=== PATIENT | female | born 1955 | race Hispanic/Latino ===

== ENCOUNTER 2018-02-09 10:19 | Emergency (ER) | payer OTHER ==
--- OUTSIDE RECORDS SUMMARY | 2018-02-09 10:22 | XMS REPORT ---
:1955 Author Organization e[employer]Works Care Team Providers Name Role Phone Breen, Na Provider Role Unavailable Allergies, Adverse Reactions, Alerts Substance Reaction Event Type codeine Info Not Available Drug Allergy NSAIDS Info Not Available Drug Allergy MORPHINE Info Not Available Drug Allergy Iodine Info Not Available Drug Allergy Problems Problem Type Condition Code Onset Dates Condition Status Assessment History of CVA with residual I69.30 Active deficit Assessment Fatty liver disease, nonalcoholic K76.0 Active Assessment Mixed hyperlipidemia E78.2 Active Assessment Gas bloat syndrome K92.89 Active Assessment Generalized abdominal pain R10.84 Active Assessment Controlled type 2 diabetes mellitus E11.9 Active without complication, without long-term current use of insulin Problem Moderate persistent asthma without J45.40 Active complication Problem 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 Generalized abdominal pain R10.84 Active Problem Hyperlipidemia, mixed E78.2 Active Problem Gastroesophageal reflux disease K21.9 Active Problem Spinal stenosis of lumbosacral M48.07 Active region Problem 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.8 Active Problem Degenerative disc disease, cervical M50.30 Active Problem History of CVA with residual I69.30 Active deficit Problem Chronic obstructive pulmonary J44.9 Active disease, unspecified COPD type Problem Cataract H26.9 Active Problem Migraine G43.909 Active Problem Fatty liver disease, nonalcoholic K76.0 Active Problem Fibromyalgia M79.7 Active Problem Controlled type 2 diabetes mellitus E11.9 Active without complication, without long-term current use of insulin Problem Osteoarthritis M19.90 Active Problem Mixed hyperlipidemia E78.2 Active Problem Acquired hypothyroidism E03.9 Active Problem Depression F32.9 Active Problem Hypothyroidism E03.9 Active Problem Diabetic neuropathy E11.40 Active Problem Ecchymosis R58 Active Problem Diabetes E11.9 Active Problem Allergic rhinitis J30.9 Active Problem Asthma J45.909 Active Problem COPD (chronic obstructive pulmonary J44.9 Active disease) Medications Medication Code Code Instructions Start End Status Dosage System Date Date Glucometer NDC 0 n/s n/s use as Active one directed Alcohol Prep NDC 0 Active as directed Pads Cortisporin [facility] 90359855259 3.5-98301-9 Active 4 drops into Otic Three affected ear times a day Praluent ND 96666313426 75MG/ML SC Nov Active INJECT 75 MG once every 2 05, SUBCUTANEOUSLY weeks 2018 EVERY 2 WEEKS Zovirax ND 68853297745 5 % Externally Active 1 application Six times a to affected day area Glucometer Kit NDC 0 Fingerstick Active Check BS twice BID a day Albuterol ND 29341721122 (5 MG/ML) 0.5% Active 1 ml as needed Sulfate Inhalation every 6 hrs Metformin HCl ND 96292578480 500 MG Orally Inactive 1 tablet with Twice a day meals Lidocaine ND 03404038218 5 % Externally Active 1 application Three times a to affected day area as needed Singulair ND 99692633924 10 MG Orally Active 1 tablet in the Once a day evening Tradjenta [facility] 70696247331 5 MG Orally Active 1 tablet Once a day Xopenex HFA [facility] 39930482882 45 MCG/ACT Active 1 puff as Inhalation needed every 4 hrs Celexa [facility] 68153797334 40 MG Orally Active 0.5 tablet Once a day Levothyroxine ND 94147431625 100 MCG Orally Active 1 tablet on an Sodium Once a day empty stomach in the morning blood glucose NDC 0 n/s twice a Active one test strip day Lancets Super NDC 0 n/s finger Active one Thin stick twice a day Incruse Ellipta ND 74396680318 62.5 MCG/INH August Active 1 puff Inhalation 24, 24, Once a day 2017 2017 Results No Known Results Summary Purpose eClinicalWorks Submission
--- OUTSIDE RECORDS SUMMARY | 2018-02-09 10:23 | XMS REPORT ---
:1955 Author Organization [employer] Care Team Providers Name Role Phone Breen, Na Provider Role Unavailable Allergies, Adverse Reactions, Alerts Substance Reaction Event Type NSAIDS Info Not Available Drug Allergy MORPHINE Info Not Available Drug Allergy Iodine Info Not Available Drug Allergy Problems Problem Type Condition Code Onset Dates Condition Status Assessment Dizziness R42 Active Assessment History of CVA with residual I69.30 Active deficit Assessment Seasonal allergies J30.2 Active Assessment Fatty liver disease, nonalcoholic K76.0 Active Assessment Mixed hyperlipidemia E78.2 Active Assessment Controlled type 2 diabetes mellitus E11.9 Active without complication, without long-term current use of insulin Problem Generalized abdominal pain R10.84 Active Problem Moderate persistent asthma without J45.40 Active complication Problem Allergic rhinitis J30.9 Active Problem Spinal stenosis of lumbosacral M48.07 Active region Problem 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.8 Active Problem Degenerative disc disease, cervical M50.30 Active Problem Osteoarthritis M19.90 Active Problem Hyperlipidemia, mixed E78.2 Active Problem 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 Fatty liver disease, nonalcoholic K76.0 Active Problem History of CVA with residual I69.30 Active deficit Problem Migraine G43.909 Active Problem Fibromyalgia M79.7 Active Problem Seasonal allergies J30.2 Active Problem Gastroesophageal reflux disease K21.9 Active Problem Acquired hypothyroidism E03.9 Active Problem Mixed hyperlipidemia E78.2 Active Problem Chronic obstructive pulmonary J44.9 Active disease, unspecified COPD type Problem Controlled type 2 diabetes mellitus E11.9 Active without complication, without long-term current use of insulin Problem Ecchymosis R58 Active Problem Depression F32.9 Active Problem Cataract H26.9 Active Problem Diabetic neuropathy E11.40 Active Problem COPD (chronic obstructive pulmonary J44.9 Active disease) Problem Diabetes E11.9 Active Problem Hypothyroidism E03.9 Active Problem Asthma J45.909 Active Medications Medication Code Code Instructions Start End Status Dosage System Date Date blood glucose NDC 0 n/s twice a Active one test strip day Metformin HCl NDC 38708738563 500 MG Orally Inactive 1 tablet with Twice a day meals Lancets Super NDC 0 n/s finger Active one Thin stick twice a day Albuterol ND 10173289450 (5 MG/ML) 0.5% Active 1 ml as needed Sulfate Inhalation every 6 hrs Celexa ND 38397689337 40 MG Orally Active 0.5 tablet Once a day Praluent ND 58981603861 75MG/ML SC Active INJECT 75 MG once every 2 SUBCUTANEOUSLY weeks EVERY 2 WEEKS Levothyroxine ND 87233857236 100 MCG Orally Active 1 tablet on an Sodium Once a day empty stomach in the morning Alcohol Prep NDC 0 Active as directed Pads Zovirax ND 66646993027 5 % Externally Active 1 application Six times a to affected day area Cortisporin [facility] 05640002936 3.5-62172-4 Active 4 drops into Otic Three affected ear times a day Glucometer Kit ND 0 Fingerstick Active Check BS twice BID a day Xopenex HFA [facility] 89446112837 45 MCG/ACT Active 1 puff as Inhalation needed every 4 hrs Meclizine HCl ND 28107167555 25 MG Orally Dec 23, Active 1 tablet as Once a day 2018 needed Glucometer NDC 0 n/s n/s use as Active one directed Singulair ND 11380100163 10 MG Orally Active 1 tablet in the Once a day evening Lidocaine ND 91811150685 5 % Externally Active 1 application Three times a to affected day area as needed Glimepiride ND 09230090464 1 MG Orally Dec 23, Active 1 tablet with Once a day 2018 breakfast or the first main meal of the day Tradjenta ND 50449754232 5 MG Orally Active 1 tablet Once a day Citalopram [facility] 31441038616 40MG Active TAKE ONE TABLET Hydrobromide BY MOUTH ONCE DAILY Results No Known Results Summary Purpose eClinicalWorks Submission
--- NOTE | 2018-02-09 11:25 | ER ---
Nurse's Notes [facility] Name: Kathy Ledesma Age: 62 yrs Sex: Female : 1955 Arrival Date: 02/09/2018 Time: 10:23 Bed 15 Private MD: Diagnosis: Pain in right shoulder;Zoster [herpes zoster] Presentation: 02/09 10:23 Presenting complaint: Patient states: Sharp pains in the right shoulder for the past aj1 week, reports that she has a history of internal shingles and she thinks that might be the problem. She saw Dr. Breen on Tuesday and was started on Valacyclovir, and she has been applying lidocaine cream but its not helping. Right upper back is painful to the touch. No rash noted. Transition of care: patient was not received from another setting of care. Onset of symptoms was February 02, 2018. Risk Assessment: Do you want to hurt yourself or someone else? Patient reports no desire to harm self or others. Initial Sepsis Screen: Does the patient meet any 2 criteria? No. Patient's initial sepsis screen is negative. Does the patient have a suspected source of infection? No. Patient's initial sepsis screen is negative. Care prior to arrival: None. 10:23 Method Of Arrival: Ambulatory aj1 10:23 Acuity: ZAK 4 aj1 Triage Assessment: 10:30 General: Appears in no apparent distress. uncomfortable, Behavior is calm, cooperative, aj1 appropriate for age. Pain: Complains of pain in right scapular area Pain currently is 10 out of 10 on a pain scale. Aggravated by touch. Neuro: Level of Consciousness is awake, alert, obeys commands. Cardiovascular: Patient's skin is warm and dry. Respiratory: Airway is patent Respiratory effort is even, unlabored, Respiratory pattern is regular, symmetrical. Historical: - Allergies: 10:30 Codeine; aj1 10:30 Morphine; aj1 10:30 NSAIDS; aj1 10:30 Relafen; aj1 - Home Meds: 10:30 Praluent Syringe 75 mg/mL subcutaneous syrg 1 mL every 2 wks [Active]; somatropin aj1 subcutaneous subcutaneous once daily [Active]; Tradjenta 5 mg oral tab 1 tab once daily [Active]; valacyclovir 1 gram Oral tab 1 tab 3 times per day [Active]; levothyroxine 75 mcg oral tab [Active]; glimepiride 1 mg Oral tab 1 tab once daily [Active]; Vitamin D Oral daily [Active]; citalopram 40 mg tab 1 tab once daily [Active]; aspirin 81 mg Oral chew 1 tab once daily [Active]; - PMHx: 10:30 COPD; Diabetes - NIDDM; Hypothyroidism; shingles; Fibromyalgia; spinal stenosis; CVA; aj1 - PSHx: 10:30 berkley fundoplication; 2 plates in neck; lower back surgery to remove spinal cyst; Knee aj1 surgery; 10:30 Hysterectomy; aj1 - Immunization history:: Flu vaccine is not up to date. - Social history:: Smoking status: Patient/guardian denies using tobacco. - Ebola Screening: : Patient denies travel to an Ebola-affected area in the 21 days before illness onset. - Family history:: not pertinent. - Hospitalizations: : No recent hospitalization is reported. Screenin:00 Abuse screen: Denies threats or abuse. Denies injuries from another. Nutritional ss screening: No deficits noted. Tuberculosis screening: Never had TB. Fall Risk None identified. Assessment: 11:00 General: Appears uncomfortable, Behavior is calm, cooperative, Denies fever, feeling ss ill, fatigue, chills. Pain: Complains of pain in back and right scapular area Pain currently is 10 out of 10 on a pain scale. Quality of pain is described as burning, tender, Is continuous. Neuro: Level of Consciousness is awake, alert, obeys commands, Oriented to person, place, time, situation. Cardiovascular: Capillary refill < 3 seconds is brisk in bilateral fingers. Respiratory: Airway is patent Trachea midline Respiratory effort is even, Respiratory pattern is regular, symmetrical. GI: No signs and/or symptoms were reported involving the gastrointestinal system. EENT: Nares are clear Oral mucosa is moist. Throat is clear. Derm: Skin is pink, warm \T\ dry. normal, Rash noted that is 5 pinpoint areas of redness noted to R scapula area. Pt reports point tenderness upon palpation. Musculoskeletal: Circulation, motion, and sensation intact. Range of motion: intact in all extremities, Swelling absent. 11:42 Reassessment: Patient appears in no apparent distress at this time. Patient is alert, ss oriented x 3, equal unlabored respirations, skin warm/dry/pink. Patient states feeling better. Patient states symptoms have improved. Vital Signs: 10:30 BP 135 / 81; Pulse 88; Resp 20; Temp 97.0(TE); Pulse Ox 100% on R/A; Weight 83.46 kg aj1 (R); Height 5 ft. 2 in. (157.48 cm) (R); Pain 10/10; 11:12 BP 126 / 65 RA (auto/reg); Pulse 85; Resp 18 S; Pulse Ox 93% on R/A; Pain 8/10; jp3 11:30 BP 121 / 54; Pulse 85; Resp 16; Pulse Ox 94% on R/A; ss 11:40 Pulse 82; Resp 15; Pulse Ox 97% on R/A; Pain 6/10; ss 10:30 Body Mass Index 33.65 (83.46 kg, 157.48 cm) aj1 ED Course: 10:23 Patient arrived in ED. aj1 10:26 Triage completed. aj1 10:30 Arm band placed on Patient placed in waiting room, Patient notified of wait time. aj1 10:53 Arie Prescott MD is Attending Physician. rn 11:17 Bed in low position. Call light in reach. Side rails up X 1. Warm blanket given. Pillow jp3 given. Pulse ox on. NIBP on. 11:29 Lilibeth Andres, MARQUES is Primary Nurse. ss 11:43 No provider procedures requiring assistance completed. Patient did not have IV access ss during this emergency room visit. Administered Medications: 11:30 Drug: Demerol 50 mg Route: IM; Site: right gluteus; ss 11:55 Follow up: Response: No adverse reaction; Pain is decreased ss Outcome: 11:24 Discharge ordered by . rn 11:43 Condition: improved ss 11:43 Discharge instructions given to patient, family, Instructed on discharge instructions, follow up and referral plans. medication usage, Demonstrated understanding of instructions, follow-up care, medications, Prescriptions given X 2. 11:55 Discharged to home via wheelchair, with family. ss 11:55 Patient left the ED. ss Signatures: Michelle Rendon RN RN aj1 Arie Prescott MD MD rn Smirch, Shelby, RN RN Jose Posadas jp3 Corrections: (The following items were deleted from the chart) 11:33 11:12 BP 126 / 65 Auto R Arm Regular; Pulse 85bpm; Resp 85bpm; Spontaneous; Pulse Ox jp3 93% RA; Pain 12/23; jp3
--- NOTE | 2018-02-09 11:25 | EDPHYS ---
Physician Documentation [facility] Name: Kathy Ledesma Age: 62 yrs Sex: Female : 1955 Arrival Date: 02/09/2018 Time: 10:23 Bed 15 Private MD: ED Physician Arie Prescott HPI: 02/09 11:18 This 62 yrs old Female presents to ER via Ambulatory with complaints of rn Shoulder Pain. 11:18 The patient or guardian complains of pain. right scapular area. Onset: The rn symptoms/episode began/occurred 3 day(s) ago. Modifying factors: the symptoms are alleviated by nothing. The symptoms are aggravated by movement. Severity of symptoms: At their worst the symptoms were moderate, in the emergency department the symptoms are unchanged. The patient has experienced similar episodes in the past. Reports scapular pain, similar ot previous shingles episodes, seen by pcp a few days ago, put on valacyclovir, just started yesterday, still hurting so came in here. NOt given steroids. No chest pain, no injury, hurts when touches area. . Historical: - Allergies: 10:30 Codeine; aj1 10:30 Morphine; aj1 10:30 NSAIDS; aj1 10:30 Relafen; aj1 - Home Meds: 10:30 Praluent Syringe 75 mg/mL subcutaneous syrg 1 mL every 2 wks [Active]; somatropin aj1 subcutaneous subcutaneous once daily [Active]; Tradjenta 5 mg oral tab 1 tab once daily [Active]; valacyclovir 1 gram Oral tab 1 tab 3 times per day [Active]; levothyroxine 75 mcg oral tab [Active]; glimepiride 1 mg Oral tab 1 tab once daily [Active]; Vitamin D Oral daily [Active]; citalopram 40 mg tab 1 tab once daily [Active]; aspirin 81 mg Oral chew 1 tab once daily [Active]; - PMHx: 10:30 COPD; Diabetes - NIDDM; Hypothyroidism; shingles; Fibromyalgia; spinal stenosis; CVA; aj1 - PSHx: 10:30 berkley fundoplication; 2 plates in neck; lower back surgery to remove spinal cyst; Knee aj1 surgery; 10:30 Hysterectomy; aj1 - Immunization history:: Flu vaccine is not up to date. - Social history:: Smoking status: Patient/guardian denies using tobacco. - Ebola Screening: : Patient denies travel to an Ebola-affected area in the 21 days before illness onset. - Family history:: not pertinent. - Hospitalizations: : No recent hospitalization is reported. ROS: 11:18 Constitutional: Negative for fever, chills, and weight loss, Cardiovascular: Negative rn for chest pain, palpitations, and edema, Respiratory: Negative for shortness of breath, cough, wheezing, and pleuritic chest pain, Abdomen/GI: Negative for abdominal pain, nausea, vomiting, diarrhea, and constipation, MS/Extremity: Negative for injury and deformity, Neuro: Negative for headache, weakness, numbness, tingling, and seizure. Exam: 11:18 Constitutional: This is a well developed, well nourished patient who is awake, alert, rn and in no acute distress. Head/Face: Normocephalic, atraumatic. Neck: Trachea midline, no thyromegaly or masses palpated, and no cervical lymphadenopathy. Supple, full range of motion without nuchal rigidity, or vertebral point tenderness. No Meningismus. Skin: Warm, dry with normal turgor. Afew papules, not pustules right scapular region, + sensitive skin, no warmth, no fluctuance Vital Signs: 10:30 BP 135 / 81; Pulse 88; Resp 20; Temp 97.0(TE); Pulse Ox 100% on R/A; Weight 83.46 kg aj1 (R); Height 5 ft. 2 in. (157.48 cm) (R); Pain 10/10; 11:12 BP 126 / 65 RA (auto/reg); Pulse 85; Resp 18 S; Pulse Ox 93% on R/A; Pain 8/10; jp3 11:30 BP 121 / 54; Pulse 85; Resp 16; Pulse Ox 94% on R/A; ss 11:40 Pulse 82; Resp 15; Pulse Ox 97% on R/A; Pain 6/10; ss 10:30 Body Mass Index 33.65 (83.46 kg, 157.48 cm) aj1 MDM: 10:53 Patient medically screened. rn 11:18 Differential diagnosis: shingles, fibromyalgia. Data reviewed: vital signs, nurses rn notes. 11:23 Counseling: I had a detailed discussion with the patient and/or guardian regarding: the rn historical points, exam findings, and any diagnostic results supporting the discharge/admit diagnosis, the need for outpatient follow up, to return to the emergency department if symptoms worsen or persist or if there are any questions or concerns that arise at home. Special discussion: I discussed with the patient/guardian in detail that at this point there is no indication for admission to the hospital. It is understood, however, that if the symptoms persist or worsen the patient needs to return immediately for re-evaluation. Based on the history and exam findings, there is no indication for further emergent testing or inpatient evaluation. I discussed with the patient/guardian the need to see the primary care provider for further evaluation of the symptoms. 11:23 ED course: Pt already on anti-virals, will add steroids and gabapentin. . rn Administered Medications: 11:30 Drug: Demerol 50 mg Route: IM; Site: right gluteus; ss 11:55 Follow up: Response: No adverse reaction; Pain is decreased ss Disposition: 02/09/18 11:24 Discharged to Home. Impression: Pain in right shoulder, Zoster [herpes zoster]. - Condition is Stable. - Discharge Instructions: Musculoskeletal Pain, Shingles. - Prescriptions for gabapentin 300 mg Oral capsule - take 1 capsule by ORAL route 3 times per day for 7 days; 21 capsule. Medrol (Juan) 4 mg Oral Tablets, Dose Pack - take 1 tablet by ORAL route as directed - follow package instructions; 1 packet. - Medication Reconciliation Form, Thank You Letter, Antibiotic Education, Prescription Opioid Use form. - Follow up: Private Physician; When: As needed; Reason: Recheck today's complaints, Re-evaluation by your physician. - Problem is new. - Symptoms have improved. Signatures: Michelle Rendon RN RN aj1 Arie Prescott MD MD rn Smirch, Shelby, RN RN ss Corrections: (The following items were deleted from the chart) 11:55 11:24 02/09/2018 11:24 Discharged to Home. Impression: Pain in right shoulder; Zoster ss [herpes zoster]. Condition is Stable. Forms are Medication Reconciliation Form, Thank You Letter, Antibiotic Education, Prescription Opioid Use. Follow up: Private Physician; When: As needed; Reason: Recheck today's complaints, Re-evaluation by your physician. Problem is new. Symptoms have improved. rn
[2018-02-09] MEDS ORDERED: MEPERIDINE HCL 50 MG/ML AMP ONE (11:32)
[2018-02-09 12:03] VITALS: TEMP 97
[2018-02-09 12:05] VITALS: BP 121/54
[2018-02-09 12:06] VITALS: O2SAT 97
== END 2018-02-09 11:55 | disposition home or self-care (01) ==
LOC: ER 10:19
DX: B02.9 Zoster without complications (principal); J44.9 Chronic obstructive pulmonary disease, unspecified; E11.9 Type 2 diabetes mellitus without complications; E03.9 Hypothyroidism, unspecified; Z79.82 Long term (current) use of aspirin; Z79.4 Long term (current) use of insulin; Z88.5 Allergy status to narcotic agent; Z88.6 Allergy status to analgesic agent; Z88.8 Allergy status to other drugs, medicaments and biological substances
CPT/HCPCS: 96372; 99283; J2175

== ENCOUNTER 2018-05-31 13:26 | Emergency (ER) | payer OTHER ==
--- OUTSIDE RECORDS SUMMARY | 2018-05-31 13:28 | XMS REPORT ---
[...] 0 Active as directed Pads Cortisporin [facility] 75409731402 3.5-78641-9 Active 4 drops into Otic Three affected ear times a day Praluent ND 11006080011 75MG/ML SC Nov Active INJECT 75 MG once every 2 05, SUBCUTANEOUSLY weeks 2018 EVERY 2 WEEKS Zovirax ND 26370550290 5 % Externally Active 1 application Six times a to affected day area Glucometer Kit NDC 0 Fingerstick Active Check BS twice BID a day Albuterol ND 51259617626 (5 MG/ML) 0.5% Active 1 ml as needed Sulfate Inhalation every 6 hrs Metformin HCl ND 56492678206 500 MG Orally Inactive 1 tablet with Twice a day meals Lidocaine ND 63314348198 5 % Externally Active 1 application Three times a to affected day area as needed Singulair ND 96729694082 10 MG Orally Active 1 tablet in the Once a day evening Tradjenta [facility] 56564424861 5 MG Orally Active 1 tablet Once a day Xopenex HFA [facility] 14290355428 45 MCG/ACT Active 1 puff as Inhalation needed every 4 hrs Celexa [facility] 15359454870 40 MG Orally Active 0.5 tablet Once a day Levothyroxine ND 41443715572 100 MCG Orally Active 1 tablet on an Sodium Once a day empty stomach in the morning blood glucose NDC 0 n/s twice a Active one test strip day Lancets Super NDC 0 n/s finger Active one Thin stick twice a day Incruse Ellipta ND 12520574620 62.5 MCG/INH August Active 1 puff Inhalation 24, 24, Once a day 2017 2017 Results No Known Results Summary Purpose eClinicalWorks Submission
--- OUTSIDE RECORDS SUMMARY | 2018-05-31 13:28 | XMS REPORT ---
[...] one test strip day Metformin HCl NDC 01115188386 500 MG Orally Inactive 1 tablet with Twice a day meals Lancets Super NDC 0 n/s finger Active one Thin stick twice a day Albuterol ND 68343448762 (5 MG/ML) 0.5% Active 1 ml as needed Sulfate Inhalation every 6 hrs Celexa ND 28590769418 40 MG Orally Active 0.5 tablet Once a day Praluent ND 37812266718 75MG/ML SC Active INJECT 75 MG once every 2 SUBCUTANEOUSLY weeks EVERY 2 WEEKS Levothyroxine ND 55807221160 100 MCG Orally Active 1 tablet on an Sodium Once a day empty stomach in the morning Alcohol Prep NDC 0 Active as directed Pads Zovirax ND 56573410593 5 % Externally Active 1 application Six times a to affected day area Cortisporin [facility] 12117674263 3.5-42484-3 Active 4 drops into Otic Three affected ear times a day Glucometer Kit ND 0 Fingerstick Active Check BS twice BID a day Xopenex HFA [facility] 91058424169 45 MCG/ACT Active 1 puff as Inhalation needed every 4 hrs Meclizine HCl ND 79714051657 25 MG Orally Dec 23, Active 1 tablet as Once a day 2018 needed Glucometer NDC 0 n/s n/s use as Active one directed Singulair ND 61742855808 10 MG Orally Active 1 tablet in the Once a day evening Lidocaine ND 09394303493 5 % Externally Active 1 application Three times a to affected day area as needed Glimepiride ND 07324734462 1 MG Orally Dec 23, Active 1 tablet with Once a day 2018 breakfast or the first main meal of the day Tradjenta ND 91278101714 5 MG Orally Active 1 tablet Once a day Citalopram [facility] 02692586496 40MG Active TAKE ONE TABLET Hydrobromide BY MOUTH ONCE DAILY Results No Known Results Summary Purpose eClinicalWorks Submission
--- OUTSIDE RECORDS SUMMARY | 2018-05-31 13:28 | XMS REPORT ---
:1955 Author Organization eClinicalWorks Care Team Providers Name Role Phone Breen, Na Provider Role Unavailable Allergies, Adverse Reactions, Alerts Substance Reaction Event Type NSAIDS Info Not Available Drug Allergy MORPHINE Info Not Available Drug Allergy Iodine Info Not Available Drug Allergy Problems Problem Type Condition Code Onset Dates Condition Status Assessment Shingles B02.9 Active Problem Generalized abdominal pain R10.84 Active [...] Start End Status Dosage System Date Date Zovirax [facility] 58505173014 5 % Externally Active 1 application to Six times a affected area day Glucometer NDC 0 n/s n/s use as Active one directed Levothyroxine ND 65796583982 100 MCG Orally Active 1 tablet on an Sodium Once a day empty stomach in the morning Glucometer Kit NDC 0 Fingerstick Active Check BS twice a BID day Tradjenta ND 39189995296 5 MG Orally Active 1 tablet Once a day Cortisporin [facility] 84234951084 3.5-24313-4 Active 4 drops into Otic Three affected ear times a day Citalopram [facility] 96529955944 40MG Active take one tablet Hydrobromide by mouth once daily Albuterol ND 11161765879 (5 MG/ML) 0.5% Active 1 ml as needed Sulfate Inhalation every 6 hrs Xopenex HFA [facility] 23518825590 45 MCG/ACT Active 1 puff as needed Inhalation every 4 hrs Celexa ND 15482846949 40 MG Orally Active 0.5 tablet Once a day Lancets Super NDC 0 n/s finger Active one Thin stick twice a day Alcohol Prep NDC 0 Active as directed Pads Singulair ND 69798731590 10 MG Orally Active 1 tablet in the Once a day evening Lidocaine ND 95280188769 5 % Externally Active 1 application to Three times a affected area as day needed Glimepiride ND 88938524418 1 MG Orally Dec 23, Active 1 tablet with Once a day 2017 breakfast or the first main meal of the day Valacyclovir ND 12956907312 1 GM Orally Sept Oct Active 1 tablet HCl tid 2017 2018 Praluent [facility] 95333090540 75MG/ML SC Active INJECT 75 MG once every 2 SUBCUTANEOUSLY weeks EVERY 2 WEEKS blood glucose NDC 0 n/s twice a Active one test strip day Meclizine HCl ND 25806314524 25 MG Orally Dec 23, Active 1 tablet as Once a day 2018 needed Results No Known Results Summary Purpose eClinicalWorks Submission
--- OUTSIDE RECORDS SUMMARY | 2018-05-31 13:28 | XMS REPORT ---
:1955 Author Organization eClinicalWorks Care Team Providers Name Role Phone Breen, Na Provider Role Unavailable Allergies No Known Allergies Problems Problem Type Condition Code Onset Dates Condition Status Problem Generalized abdominal pain R10.84 Active Problem [...] E03.9 Active Problem Asthma J45.909 Active Medications No Known Medications Results No Known Results Summary Purpose eClinicalWorks Submission
--- NOTE | 2018-05-31 15:12 | RAD REPORT ---
EXAM DESCRIPTION: RAD - Wrist Left 3 View - 05/31/2018 2:48 pm CLINICAL HISTORY: Pain;Swelling Pain COMPARISON: Wrist Left 3 View dated 09/04/2011 FINDINGS: No fracture or dislocation seen left wrist. No foreign body or other soft tissue abnormal ity. IMPRESSION: Negative examination.
--- NOTE | 2018-05-31 15:24 | EDPHYS ---
Physician Documentation [facility] Name: Kathy Ledesma Age: 62 yrs Sex: Female : 1955 Arrival Date: 05/31/2018 Time: 13:33 Bed 12 Private MD: Margarita Breen ED Physician Arie Prescott HPI: 05/31 14:16 This 62 yrs old Female presents to ER via Ambulatory with complaints of Wrist cp Pain. 14:16 The patient or guardian reports pain, swelling, tenderness. cp 14:16 The complaints affect the left wrist diffusely. Context: resulted from lifting or cp pulling, mother while seated in wheelchair. Onset: The symptoms/episode began/occurred 6 week(s) ago. Modifying factors: the symptoms are aggravated by movement. Associated signs and symptoms: Pertinent negatives: cyanosis distally, decreased sensation distally, fever. Historical: - Allergies: 13:46 Codeine; hb 13:46 Morphine; hb 13:46 NSAIDS; hb 13:46 Relafen; hb - Immunization history:: Adult Immunizations up to date. - Social history:: Smoking status: Patient/guardian denies using tobacco. - Ebola Screening: : No symptoms or risks identified at this time. ROS: 14:20 Constitutional: Negative for body aches, chills, fever, poor PO intake. cp 14:20 Eyes: Negative for injury, pain, redness, and discharge. cp Exam: 14:30 Constitutional: The patient appears in no acute distress, alert, awake, non-toxic, well cp developed, well nourished. 14:30 Head/Face: Normocephalic, atraumatic. cp 14:30 Eyes: Periorbital structures: appear normal, Conjunctiva: normal, Lids and lashes: appear normal, bilaterally. 14:30 ENT: External ear(s): are unremarkable, Nose: is normal, Mouth: Lips: moist, Oral mucosa: moist. 14:30 Chest/axilla: Inspection: normal. 14:30 Cardiovascular: Rate: normal. 14:30 Respiratory: the patient does not display signs of respiratory distress, Respirations: normal, no use of accessory muscles, no retractions, no splinting, no tachypnea. 14:30 Abdomen/GI: Exam negative for discomfort, distension, guarding, Inspection: abdomen appears normal. 14:30 Musculoskeletal/extremity: Perfusion: the extremity is normally perfused throughout, Sensation intact. Joints: the left wrist displays painful range of motion, swelling, tenderness. 14:30 Skin: cellulitis, is not appreciated, no rash present. Vital Signs: 13:45 BP 125 / 74; Pulse 83; Resp 16; Temp 97.2; Pulse Ox 100% ; Pain 10/10; hb MDM: 13:56 Patient medically screened. cp 15:00 Differential diagnosis: dislocation, closed fracture, contusion, tendonitis. cp 15:22 Data reviewed: vital signs, nurses notes, radiologic studies, plain films, and as a cp result, I will discharge patient. 15:22 Counseling: I had a detailed discussion with the patient and/or guardian regarding: the cp historical points, exam findings, and any diagnostic results supporting the discharge/admit diagnosis, radiology results, the need for outpatient follow up, a orthopedic surgeon, to return to the emergency department if symptoms worsen or persist or if there are any questions or concerns that arise at home. 05/31 14:03 Order name: XRAY Wrist LEFT 3 view; Complete Time: 15:17 cp Administered Medications: No medications were administered Disposition: 17:53 Co-signature as Attending Physician, Arie Prescott MD. rn Disposition: 05/31/18 15:23 Discharged to Home. Impression: Pain in left wrist. - Condition is Stable. - Discharge Instructions: Wrist Pain. - Prescriptions for Tramadol 50 mg Oral Tablet - take 1 tablet by ORAL route every 8 hours as needed. no driving while taking medication; 15 tablet. Medrol (Juan) 4 mg Oral Tablets, Dose Pack - take 1 tablet by ORAL route as directed - follow package instructions; 1 packet. - Medication Reconciliation Form, Thank You Letter, Antibiotic Education, Prescription Opioid Use form. - Follow up: Alejandro Rios MD; When: 1 week; Reason: Recheck today's complaints. - Problem is an ongoing problem. - Symptoms are unchanged. Signatures: Dispatcher [employer] EDArie Mayes MD MD rn Smirch, Shelby, RN RN Mando Lowery PA PA cp Baxter, Heather, RN RN hb Corrections: (The following items were deleted from the chart) 15:29 15:23 05/31/2018 15:23 Discharged to Home. Impression: Pain in left wrist. Condition is ss Stable. Forms are Medication Reconciliation Form, Thank You Letter, Antibiotic Education, Prescription Opioid Use. Follow up: Alejandro Rios; When: 1 week; Reason: Recheck today's complaints. Problem is an ongoing problem. Symptoms are unchanged. cp
--- NOTE | 2018-05-31 15:24 | ER ---
Nurse's Notes [facility] Name: Kathy Ledesma Age: 62 yrs Sex: Female : 1955 Arrival Date: 05/31/2018 Time: 13:33 Bed 12 Private MD: Margarita Breen Diagnosis: Pain in left wrist Presentation: 05/31 13:44 Presenting complaint: Patient states: Worsening left wrist pain after lifting hb wheelchair 6 weeks ago. Transition of care: patient was not received from another setting of care. Onset of symptoms is unknown. Risk Assessment: Do you want to hurt yourself or someone else? Patient reports no desire to harm self or others. Care prior to arrival: None. 13:44 Method Of Arrival: Ambulatory hb 13:44 Acuity: ZAK 4 hb 14:00 Initial Sepsis Screen: Does the patient meet any 2 criteria? No. Patient's initial hb sepsis screen is negative. Does the patient have a suspected source of infection? No. Patient's initial sepsis screen is negative. Historical: - Allergies: 13:46 Codeine; hb 13:46 Morphine; hb 13:46 NSAIDS; hb 13:46 Relafen; hb - Immunization history:: Adult Immunizations up to date. - Social history:: Smoking status: Patient/guardian denies using tobacco. - Ebola Screening: : No symptoms or risks identified at this time. Screenin:00 Abuse screen: Denies threats or abuse. Denies injuries from another. Nutritional hb screening: No deficits noted. Tuberculosis screening: No symptoms or risk factors identified. Fall Risk None identified. Assessment: 14:00 General: Appears in no apparent distress. Behavior is calm, cooperative. Pain: Pain hb currently is 10 out of 10 on a pain scale. Neuro: Level of Consciousness is awake, alert, obeys commands, Oriented to person, place, time, situation. Cardiovascular: Capillary refill < 3 seconds Patient's skin is warm and dry. Respiratory: Airway is patent Respiratory effort is even, unlabored, Respiratory pattern is regular, symmetrical. GI: No signs and/or symptoms were reported involving the gastrointestinal system. : No signs and/or symptoms were reported regarding the genitourinary system. EENT: No signs and/or symptoms were reported regarding the EENT system. Derm: Skin is intact, is healthy with good turgor. Musculoskeletal: Reports left wrist pain. 15:00 Reassessment: Patient appears in no apparent distress at this time. No changes from hb previously documented assessment. Patient and/or family updated on plan of care and expected duration. Pain level reassessed. Patient is alert, oriented x 3, equal unlabored respirations, skin warm/dry/pink. Vital Signs: 13:45 BP 125 / 74; Pulse 83; Resp 16; Temp 97.2; Pulse Ox 100% ; Pain 10/10; hb ED Course: 13:33 Patient arrived in ED. sb2 13:33 Margarita Breen MD is Private Physician. sb2 13:45 Triage completed. hb 13:45 Arm band placed on right wrist. hb 13:55 Mando Denton PA is PHCP. cp 13:56 Arie Prescott MD is Attending Physician. cp 14:00 Side rails up X 1. hb 14:11 Lilibeth Andres, MARQUES is Primary Nurse. ss 14:42 X-ray completed. Portable x-ray completed in exam room. Patient tolerated procedure mh1 well. 14:48 XRAY Wrist LEFT 3 view In Process Unspecified. EDMS 15:23 Alejandro Rios MD is Referral Physician. cp 15:25 No provider procedures requiring assistance completed. Patient did not have IV access hb during this emergency room visit. Administered Medications: No medications were administered Outcome: 15:23 Discharge ordered by MD. cp 15:29 Discharged to home ambulatory. ss 15:29 Condition: good 15:29 Discharge instructions given to patient, Instructed on discharge instructions, follow up and referral plans. medication usage, Demonstrated understanding of instructions, follow-up care, medications, Prescriptions given X 2. 15:29 Patient left the ED. ss Signatures: Dispatcher [employer] EDIL Geneva Cho 1 Lilibeth Andres, RN RN Mando Denton PA PA Elena Gaines RN RN Viry Prince sb2 Corrections: (The following items were deleted from the chart) 13:46 13:45 Arm band placed on left wrist. hb hb
[2018-05-31 15:34] VITALS: BP 125/74; TEMP 97.2; O2SAT 100
== END 2018-05-31 15:29 | disposition home or self-care (01) ==
LOC: ER 13:26
DX: M25.532 Pain in left wrist (principal)
CPT/HCPCS: 99283

== ENCOUNTER 2018-06-25 14:54 | Emergency (ER) | payer OTHER ==
--- OUTSIDE RECORDS SUMMARY | 2018-06-25 14:56 | XMS REPORT ---
:1955 [facility] Address [address] [place] [address] Dr. Beltre[address] [place] [id number] Care Team Providers Name Role Phone Unavailable Unavailable Unavailable Problems This patient has no known problems. Allergies, Adverse Reactions, Alerts This patient has no known allergies or adverse reactions. Medications This patient has no known medications.
--- OUTSIDE RECORDS SUMMARY | 2018-06-25 14:56 | XMS REPORT ---
[...] NDC 0 Active as directed Pads Cortisporin [facility] 54481944380 3.5-29048-3 Active 4 drops into Otic Three affected ear times a day Praluent ND 03830575629 75MG/ML SC Nov Active INJECT 75 MG once every 2 05, SUBCUTANEOUSLY weeks 2018 EVERY 2 WEEKS Zovirax ND 64172114548 5 % Externally Active 1 application Six times a to affected day area Glucometer Kit NDC 0 Fingerstick Active Check BS twice BID a day Albuterol ND 46044042743 (5 MG/ML) 0.5% Active 1 ml as needed Sulfate Inhalation every 6 hrs Metformin HCl ND 66315417716 500 MG Orally Inactive 1 tablet with Twice a day meals Lidocaine ND 21631500101 5 % Externally Active 1 application Three times a to affected day area as needed Singulair ND 43437641741 10 MG Orally Active 1 tablet in the Once a day evening Tradjenta [facility] 55074637187 5 MG Orally Active 1 tablet Once a day Xopenex HFA [facility] 80448303547 45 MCG/ACT Active 1 puff as Inhalation needed every 4 hrs Celexa [facility] 30390113105 40 MG Orally Active 0.5 tablet Once a day Levothyroxine ND 11904968902 100 MCG Orally Active 1 tablet on an Sodium Once a day empty stomach in the morning blood glucose NDC 0 n/s twice a Active one test strip day Lancets Super NDC 0 n/s finger Active one Thin stick twice a day Incruse Ellipta ND 88382643227 62.5 MCG/INH August Active 1 puff Inhalation 24, 24, Once a day 2017 2017 Results No Known Results Summary Purpose eClinicalWorks Submission
--- OUTSIDE RECORDS SUMMARY | 2018-06-25 14:56 | XMS REPORT ---
[...] one test strip day Metformin HCl NDC 16024332896 500 MG Orally Inactive 1 tablet with Twice a day meals Lancets Super NDC 0 n/s finger Active one Thin stick twice a day Albuterol ND 91812673691 (5 MG/ML) 0.5% Active 1 ml as needed Sulfate Inhalation every 6 hrs Celexa ND 26306170494 40 MG Orally Active 0.5 tablet Once a day Praluent ND 10353398248 75MG/ML SC Active INJECT 75 MG once every 2 SUBCUTANEOUSLY weeks EVERY 2 WEEKS Levothyroxine ND 59314915154 100 MCG Orally Active 1 tablet on an Sodium Once a day empty stomach in the morning Alcohol Prep NDC 0 Active as directed Pads Zovirax ND 92636330037 5 % Externally Active 1 application Six times a to affected day area Cortisporin [facility] 70634264359 3.5-83721-0 Active 4 drops into Otic Three affected ear times a day Glucometer Kit ND 0 Fingerstick Active Check BS twice BID a day Xopenex HFA [facility] 06992490341 45 MCG/ACT Active 1 puff as Inhalation needed every 4 hrs Meclizine HCl ND 84132837632 25 MG Orally Dec 23, Active 1 tablet as Once a day 2018 needed Glucometer NDC 0 n/s n/s use as Active one directed Singulair ND 13359895716 10 MG Orally Active 1 tablet in the Once a day evening Lidocaine ND 54483756178 5 % Externally Active 1 application Three times a to affected day area as needed Glimepiride ND 93403419645 1 MG Orally Dec 23, Active 1 tablet with Once a day 2018 breakfast or the first main meal of the day Tradjenta ND 14330174341 5 MG Orally Active 1 tablet Once a day Citalopram [facility] 15297455947 40MG Active TAKE ONE TABLET Hydrobromide BY MOUTH ONCE DAILY Results No Known Results Summary Purpose eClinicalWorks Submission
--- OUTSIDE RECORDS SUMMARY | 2018-06-25 14:57 | XMS REPORT ---
[...] End Status Dosage System Date Date Zovirax [facility] 21617071205 5 % Externally Active 1 application to Six times a affected area day Glucometer NDC 0 n/s n/s use as Active one directed Levothyroxine ND 25962812571 100 MCG Orally Active 1 tablet on an Sodium Once a day empty stomach in the morning Glucometer Kit NDC 0 Fingerstick Active Check BS twice a BID day Tradjenta ND 66952215149 5 MG Orally Active 1 tablet Once a day Cortisporin [facility] 70266506019 3.5-55032-5 Active 4 drops into Otic Three affected ear times a day Citalopram [facility] 95355102201 40MG Active take one tablet Hydrobromide by mouth once daily Albuterol ND 93354065376 (5 MG/ML) 0.5% Active 1 ml as needed Sulfate Inhalation every 6 hrs Xopenex HFA [facility] 61843299156 45 MCG/ACT Active 1 puff as needed Inhalation every 4 hrs Celexa ND 99276735246 40 MG Orally Active 0.5 tablet Once a day Lancets Super NDC 0 n/s finger Active one Thin stick twice a day Alcohol Prep NDC 0 Active as directed Pads Singulair ND 98174940366 10 MG Orally Active 1 tablet in the Once a day evening Lidocaine ND 01047410109 5 % Externally Active 1 application to Three times a affected area as day needed Glimepiride ND 30793472579 1 MG Orally Dec 23, Active 1 tablet with Once a day 2017 breakfast or the first main meal of the day Valacyclovir ND 37182537655 1 GM Orally Sept Oct Active 1 tablet HCl tid 2017 [address] [facility] 05732557633 75MG/ML SC Active INJECT 75 MG once every 2 SUBCUTANEOUSLY weeks EVERY 2 WEEKS blood glucose NDC 0 n/s twice a Active one test strip day Meclizine HCl ND 53127315354 25 MG Orally Dec 23, Active 1 tablet as Once a day 2018 needed Results No Known Results Summary Purpose eClinicalWorks Submission
--- OUTSIDE RECORDS SUMMARY | 2018-06-25 14:57 | XMS REPORT ---
:1955 Author Organization eClinicalWorks Care Team Providers Name Role Phone Gus Easton Provider Role Unavailable Allergies No Known Allergies Problems Problem Type Condition Code Onset Dates Condition Status Assessment Pain in medial right lower M79.604 Active extremity Assessment Muscle pain M79.10 Active Problem Generalized abdominal pain R10.84 Active Problem Moderate persistent asthma without J45.40 Active complication Problem Spinal stenosis of lumbosacral M48.07 Active region Problem Degenerative disc disease, cervical M50.30 Active Problem Gastroesophageal reflux disease K21.9 Active Problem Osteoarthritis M19.90 Active Problem 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 Fibromyalgia M79.7 Active Problem Hyperlipidemia, mixed E78.2 Active Problem Acquired hypothyroidism E03.9 Active Problem Mixed hyperlipidemia E78.2 Active Problem 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 Problem Seasonal allergies J30.2 Active Problem Diabetic neuropathy E11.40 Active Problem Cataract H26.9 Active Problem Depression with anxiety F41.8 Active Problem Migraine G43.909 Active Problem Chronic obstructive pulmonary J44.9 Active disease, unspecified COPD type Problem Controlled type 2 diabetes mellitus E11.9 Active without complication, without long-term current use of insulin Problem Fatty liver disease, nonalcoholic K76.0 Active Problem History of CVA with residual I69.30 Active deficit Problem Hypothyroidism E03.9 Active Problem Asthma J45.909 Active Problem Ecchymosis R58 Active Problem Depression F32.9 Active Problem Allergic rhinitis J30.9 Active Problem 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.8 Active Problem COPD (chronic obstructive pulmonary J44.9 Active disease) Problem Diabetes E11.9 Active Medications Medication Code Code Instructions Start End Status Dosage System Date Date Citalopram ND 51706268682 40MG Active take one tablet Hydrobromide by mouth once daily Lancets Super NDC 0 n/s finger Active one Thin stick twice a day Alcohol Prep NDC 0 Active as directed Pads Praluent NDC 92438832803 75MG/ML SC Active INJECT 75 MG once every 2 SUBCUTANEOUSLY weeks EVERY 2 WEEKS Glucometer NDC 0 n/s n/s use as Active one directed Levothyroxine ND 88663599563 112 MCG Orally Active 1 tablet on an Sodium Once a day empty stomach in the morning Albuterol ND 03019129284 (5 MG/ML) 0.5% Active 1 ml as needed Sulfate Inhalation every 6 hrs Tradjenta ND 57328579822 5 MG Orally Active 1 tablet Once a day blood glucose ND 0 n/s twice a Active one test strip day Results No Known Results Summary Purpose eClinicalWorks Submission
[2018-06-25] MEDS ORDERED: MECLIZINE HCL 12.5 MG TAB ONE (16:08)
[2018-06-25] MEDS ORDERED: ASPIRIN 81 MG CHEWABLE TABLET ONE (16:08)
[2018-06-25 16:09] LABS: Absolute Lymphocytes (CBC) 3.4 K/uL (0.7-4.9); Absolute Monocytes 0.4 K/uL (0.1-1.3); Absolute Neutrophil 3.1 K/uL (1.8-8.0); Basophils % 0.7 % (0-1.3); Eosinophils % 2.5 % (0-4.4); Hematocrit 44.5 % (36.0-45.0); Lymphocytes % 47.5 % (15.3-44.8); MPV 7.4 fL (7.6-11.3); Monocytes % 6.2 % (3.3-12.3); RBC Red Blood Cell Count 4.82 M/uL (3.86-4.86)
--- NOTE | 2018-06-25 16:14 | RAD REPORT ---
EXAM DESCRIPTION: RAD - Chest Single View - 06/25/2018 3:51 pm CLINICAL HISTORY: Left-sided chest pain COMPARISON: March 2017 TECHNIQUE: AP portable chest image was obtained 1540 hours . FINDINGS: Lung volumes are low. Interstitial markings are prominent but not clearly different. A mil d interstitial edema or infiltrate could be masked. Heart and vasculature are normal. No measurable p leural effusion and no pneumothorax. No acute bony abnormality seen. No acute aortic findings suspect ed. IMPRESSION: Shallow inspiration chest film shows no peripheral mass or consolidation. Mild viral infiltrate or interstitial edema could be masked by shallow inspiration and chronic inters titial pattern.
[2018-06-25 16:15] LABS: Protime INR 0.98
[2018-06-25 16:29] LABS: ALT/SGPT 23 U/L (12-78); AST/SGOT 14 U/L (15-37); Albumin 3.5 g/dL (3.4-5.0); Alkaline Phosphatase 113 U/L (45-117); BUN Blood Urea Nitrogen 14 mg/dL (7-18); Bicarbonate 28 mmol/L (21-32); Bilirubin Direct 0.1 mg/dL (0-0.2); Bilirubin Total 0.3 mg/dL (0.2-1.0); Glucose Level 122 mg/dL (74-106); Magnesium 2.3 mg/dL (1.8-2.4); NT PRO-BNP 14 pg/mL (<125); Potassium 3.6 mmol/L (3.5-5.1); Protein, Total 7.6 g/dL (6.4-8.2); Sodium Level 139 mmol/L (136-145); Troponin (Emerg Dept Use Only) < 0.02 ng/mL (0.0-0.045)
[2018-06-25 16:39] LABS: Blood Morphology Comment NOT SEEN (NOT SEEN); Platelet Estimate ADEQ
--- NOTE | 2018-06-25 19:14 | ER ---
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 Also c/o mild SOB. Hx of vertigo, DM, CVA. Transition of care: patient was not received from another setting of care. Onset of symptoms was June 25, 2018. Risk Assessment: Do you want to hurt yourself or someone else? Patient reports no desire to harm self or others. Care prior to arrival: None. 15:14 Method Of Arrival: Ambulatory hb 15:14 Acuity: ZAK 3 hb 18:10 Initial Sepsis Screen: Does the patient meet any 2 criteria? No. Patient's initial aj1 sepsis screen is negative. Does the patient have a suspected source of infection? No. Patient's initial sepsis screen is negative. Historical: - Allergies: 15:16 Codeine; hb 15:16 Morphine; hb 15:16 NSAIDS; hb 15:16 Relafen; hb - Immunization history:: Adult Immunizations up to date. - Social history:: Smoking status: Patient/guardian denies using tobacco. - Ebola Screening: : No symptoms or risks identified at this time. Screenin:30 Abuse screen: Denies threats or abuse. Denies injuries from another. Nutritional aj1 screening: No deficits noted. Tuberculosis screening: No symptoms or risk factors identified. Fall Risk None identified. Assessment: 15:30 General: Appears in no apparent distress. comfortable, Behavior is calm, cooperative, aj1 appropriate for age. Pain: Denies pain. pain has resolved at this time Pain began suddenly. Neuro: Level of Consciousness is awake, alert, obeys commands, Oriented to person, place, time, situation, Speech is normal, Facial symmetry appears normal. Cardiovascular: Reports chest pain, lightheadedness, dizziness. Patient reports that chest pain lasted approximately 10 minutes and then resolved Denies palpitations, Heart tones S1 S2 present Patient's skin is warm and dry. Respiratory: Airway is patent Respiratory effort is even, unlabored, Respiratory pattern is regular, symmetrical, Breath sounds are clear bilaterally. GI: No signs and/or symptoms were reported involving the gastrointestinal system. : No signs and/or symptoms were reported regarding the genitourinary system. EENT: No signs and/or symptoms were reported regarding the EENT system. Derm: No signs and/or symptoms reported regarding the dermatologic system. Skin is pink, warm \T\ dry. normal. Musculoskeletal: No signs and/or symptoms reported regarding the musculoskeletal system. Circulation, motion, and sensation intact. 16:30 Reassessment: Patient appears in no apparent distress at this time. No changes from aj1 previously documented assessment. Patient and/or family updated on plan of care and expected duration. Pain level reassessed. Patient is alert, oriented x 3, equal unlabored respirations, skin warm/dry/pink. 17:33 Reassessment: Patient appears in no apparent distress at this time. No changes from aj1 previously documented assessment. Patient and/or family updated on plan of care and expected duration. Pain level reassessed. Patient is alert, oriented x 3, equal unlabored respirations, skin warm/dry/pink. 18:08 Reassessment: Patient appears in no apparent distress at this time. No changes from aj1 previously documented assessment. Patient and/or family updated on plan of care and expected duration. Pain level reassessed. Patient is alert, oriented x 3, equal unlabored respirations, skin warm/dry/pink. 19:39 Reassessment: Patient appears in no apparent distress at this time. Patient and/or tl2 family updated on plan of care and expected duration. Pain level reassessed. Patient is alert, oriented x 3, equal unlabored respirations, skin warm/dry/pink. pt verbalized understanding of discharge instructions, need for follow up and maneuvers for vertigo Patient states feeling better. Vital Signs: 15:16 BP 126 / 75; Pulse 93; Resp 20; Temp 97.6; Pulse Ox 96% on R/A; Pain 3/10; hb 16:30 BP 112 / 55; Pulse 87; Resp 18; Pulse Ox 97% on R/A; aj1 17:30 BP 100 / 51; Pulse 89; Resp 18; Pulse Ox 97% on R/A; aj1 18:10 BP 106 / 52; Pulse 85; Resp 18; Pulse Ox 97% on R/A; aj1 19:11 BP 116 / 58; Pulse 85; Resp 18; Pulse Ox 97% on R/A; tl2 Vitals: 19:11 Cardiac Rhythm Assessment Sinus rhythm. tl2 ED Course: 14:55 Patient arrived in ED. as 14:55 Aquilino Easton MD is Private Physician. as 14:55 Gus Easton DO is Private Physician. as 15:16 Triage completed. hb 15:17 Arm band placed on right wrist. hb 15:22 Yeny Govea FNP-C is PHCP. snw 15:22 Arie Prescott MD is Attending Physician. snw 15:22 Michelle Rendon RN is Primary Nurse. aj1 15:46 X-ray completed. Portable x-ray completed in exam room. Patient tolerated procedure sg4 well. 15:51 XRAY Chest (1 view) In Process Unspecified. EDMS 16:30 Patient has correct armband on for positive identification. Placed in gown. Bed in low aj1 position. Call light in reach. winch stripper on. Pulse ox on. NIBP on. 16:30 No provider procedures requiring assistance completed. Patient maintains SpO2 aj1 saturation greater than 95% on room air. 19:10 Inserted IV 20 g right AC placed during previous shift. tl2 19:12 Gus Easton DO is Referral Physician. snw 19:39 IV discontinued, intact, bleeding controlled, No redness/swelling at site. Pressure tl2 dressing applied. Administered Medications: 16:01 Drug: Aspirin Chewable Tablet 324 mg Route: PO; aj1 18:55 Follow up: Response: No adverse reaction aj1 16:01 Drug: Antivert 50 mg Route: PO; aj1 18:56 Follow up: Response: No adverse reaction aj1 Outcome: 19:10 Discharged to home ambulatory, with family. tl2 19:10 Condition: stable 19:10 Discharge instructions given to patient, family, Instructed on discharge instructions, follow up and referral plans. Demonstrated understanding of instructions, follow-up care. 19:14 Discharge ordered by . snw 19:41 Patient left the ED. 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 Hx of vertigo, GM, CVA hb :33 16:30 General: Appears in no apparent distress. comfortable, Behavior is calm, aj1 cooperative, appropriate for age, [facility] : 16:30 Pain: Denies pain. pain has resolved at this time Pain began suddenly, [place] [id number] : 16:30 Neuro: Level of Consciousness is awake, alert, obeys commands, Oriented to aj1 person, place, time, situation, Speech is normal, Facial symmetry appears normal, [facility] : 16:30 Cardiovascular: Reports chest pain, lightheadedness, dizziness. Patient reports aj1 that chest pain lasted approximately 10 minutes and then resolved Denies palpitations, Heart tones S1 S2 present Patient's skin is warm and dry. [facility] : 16:30 Respiratory: Airway is patent Respiratory effort is even, unlabored, Respiratory aj1 pattern is regular, symmetrical, Breath sounds are clear bilaterally. aj : 16:30 GI: No signs and/or symptoms were reported involving the gastrointestinal system. aj1 [facility] : 16:30 : No signs and/or symptoms were reported regarding the [facility]ourinary system. [facility] EENT: No signs and/or symptoms were reported regarding the EENT system. aj1 [facility] : 16:30 Derm: No signs and/or symptoms reported regarding the dermatologic system. Skin aj1 is pink, warm \T\ dry. normal, [facility] 16:30 Musculoskeletal: No signs and/or symptoms reported regarding the musculoskeletal aj1 system. Circulation, motion, and sensation intact. aj1
--- NOTE | 2018-06-25 19:14 | EDPHYS ---
Physician Documentation [facility] Name: Kathy Ledesma Age: 62 yrs Sex: Female : 1955 Arrival Date: 06/25/2018 Time: 14:55 Bed 20 Private MD: Gus Easton ED Physician Arie Prescott HPI: 06/25 17:04 This 62 yrs old Female presents to ER via Ambulatory with complaints of Chest snw Pressure, Dizziness. 17:04 The patient presents with sense of spinning, vertigo. Onset: The symptoms/episode snw began/occurred suddenly, after bending to spit gum out. Context: occurred while the patient was bending. Associated signs and symptoms: Pertinent positives: chest "soreness". Severity of symptoms: At their worst the symptoms were moderate today. Patient's baseline: Neuro: alert and fully oriented, Motor: no deficits, Ambulation: walks without assistance, The patient has a previous history of CVA, vertigo. The patient has experienced similar episodes in the past. sees Dr. Easton. Historical: - Allergies: 15:16 Codeine; hb 15:16 Morphine; hb 15:16 NSAIDS; hb 15:16 Relafen; hb - Immunization history:: Adult Immunizations up to date. - Social history:: Smoking status: Patient/guardian denies using tobacco. - Ebola Screening: : No symptoms or risks identified at this time. ROS: 15:39 Eyes: Negative for injury, pain, redness, and discharge, ENT: Negative for injury, snw pain, and discharge, Neck: Negative for injury, pain, and swelling, Respiratory: Negative for shortness of breath, cough, wheezing, and pleuritic chest pain. 15:39 Abdomen/GI: Negative for abdominal pain, nausea, vomiting, diarrhea, and constipation, Back: Negative for injury and pain, : Negative for injury, bleeding, discharge, and swelling, MS/Extremity: Negative for injury and deformity, Skin: Negative for injury, rash, and discoloration. 15:39 Constitutional: Positive for malaise. 15:39 Cardiovascular: Positive for chest pain, of the left lateral anterior chest. 15:39 Neuro: Positive for dizziness. Exam: 15:39 Constitutional: This is a well developed, well nourished patient who is awake, alert, snw and in no acute distress. Head/Face: Normocephalic, atraumatic. Eyes: Pupils equal round and reactive to light, extra-ocular motions intact. Lids and lashes normal. Conjunctiva and sclera are non-icteric and not injected. Cornea within normal limits. Periorbital areas with no swelling, redness, or edema. ENT: Nares patent. No nasal discharge, no septal abnormalities noted. Tympanic membranes are normal and external auditory canals are clear. Oropharynx with no redness, swelling, or masses, exudates, or evidence of obstruction, uvula midline. Mucous membranes moist. Neck: Trachea midline, no thyromegaly or masses palpated, and no cervical lymphadenopathy. Supple, full range of motion without nuchal rigidity, or vertebral point tenderness. No Meningismus. Chest/axilla: Normal chest wall appearance and motion. Nontender with no deformity. No lesions are appreciated. 15:39 Abdomen/GI: Soft, non-tender, with normal bowel sounds. No distension or tympany. No guarding or rebound. No evidence of tenderness throughout. Back: No spinal tenderness. No costovertebral tenderness. Full range of motion. Skin: Warm, dry with normal turgor. Normal color with no rashes, no lesions, and no evidence of cellulitis. MS/ Extremity: Pulses equal, no cyanosis. Neurovascular intact. Full, normal range of motion. Neuro: Awake and alert, GCS 15, oriented to person, place, time, and situation. Cranial nerves II-XII grossly intact. Motor strength 5/5 in all extremities. Sensory grossly intact. Cerebellar exam normal. Normal gait. Psych: Awake, alert, with orientation to person, place and time. Behavior, mood, and affect are within normal limits. 15:39 Cardiovascular: Rate: normal, Rhythm: regular, Pulses: no pulse deficits are appreciated. Vital Signs: 15:16 BP 126 / 75; Pulse 93; Resp 20; Temp 97.6; Pulse Ox 96% on R/A; Pain 3/10; hb 16:30 BP 112 / 55; Pulse 87; Resp 18; Pulse Ox 97% on R/A; aj1 17:30 BP 100 / 51; Pulse 89; Resp 18; Pulse Ox 97% on R/A; aj1 18:10 BP 106 / 52; Pulse 85; Resp 18; Pulse Ox 97% on R/A; aj1 19:11 BP 116 / 58; Pulse 85; Resp 18; Pulse Ox 97% on R/A; tl2 MDM: 15:22 Patient medically screened. snw 19:15 Data reviewed: vital signs, nurses notes. Data interpreted: Pulse oximetry: on room air snw is 97 %. Interpretation: normal. Counseling: I had a detailed discussion with the patient and/or guardian regarding: the historical points, exam findings, and any diagnostic results supporting the discharge/admit diagnosis, lab results, radiology results, the need for outpatient follow up, to return to the emergency department if symptoms worsen or persist or if there are any questions or concerns that arise at home. Special discussion: Based on the history and exam findings, there is no indication for further emergent testing or inpatient evaluation. I discussed with the patient/guardian the need to see the primary care provider for further evaluation of the symptoms. 06/25 15:23 Order name: Basic Metabolic Panel; Complete Time: 16:34 snw 06/25 15:23 Order name: CBC with Diff; Complete Time: 16:48 snw 06/25 15:23 Order name: LFT's; Complete Time: 16:34 snw 06/25 15:23 Order name: Magnesium; Complete Time: 16:34 snw 06/25 15:23 Order name: NT PRO-BNP; Complete Time: 16:34 snw 06/25 15:23 Order name: PT-INR; Complete Time: 16:34 snw 06/25 15:23 Order name: Troponin (emerg Dept Use Only); Complete Time: 16:34 snw 06/25 15:23 Order name: XRAY Chest (1 view); Complete Time: 16:15 snw 06/25 15:23 Order name: EKG; Complete Time: 15:24 snw 06/25 15:56 Order name: Glucose, Ancillary Testing; Complete Time: 16:00 EDMS 06/25 16:38 Order name: Manual Differential; Complete Time: 16:48 EDMS 06/25 18:28 Order name: Troponin (emerg Dept Use Only); Complete Time: 19:12 snw 06/25 15:23 Order name: Cardiac monitoring; Complete Time: 16:02 snw 06/25 15:23 Order name: EKG - Nurse/Tech; Complete Time: 16:02 snw 06/25 15:23 Order name: IV Saline Lock; Complete Time: 16:01 snw 06/25 15:23 Order name: Labs collected and sent; Complete Time: 16: snw 06/25 15:23 Order name: O2 Per Protocol; Complete Time: 16: snw 06/25 15:23 Order name: O2 Sat Monitoring; Complete Time: 16:01 snw 06/25 18:28 Order name: EKG; Complete Time: 18:29 snw Administered Medications: 16:01 Drug: Aspirin Chewable Tablet 324 mg Route: PO; aj1 18:55 Follow up: Response: No adverse reaction aj1 16:01 Drug: Antivert 50 mg Route: PO; aj1 18:56 Follow up: Response: No adverse reaction aj1 Disposition: 06/25/18 19:14 Discharged to Home. Impression: Vertiginous syndromes in diseases classified elsewhere, unspecified ear. - Condition is Stable. - Discharge Instructions: Benign Positional Vertigo, Dizziness, Vertigo, Malik Maneuver Self-Care. - Work release form, Medication Reconciliation Form, Thank You Letter, Antibiotic Education, Prescription Opioid Use form. - Follow up: Gus Easton DO; When: Tomorrow; Reason: Recheck today's complaints, Continuance of care, Re-evaluation by your physician. Addendum: 06/27/2018 07:10 Co-signature as Attending Physician, Arie Prescott MD. r n Signatures: Dispatcher [employer] EDMichelle Pabon RN RN aj1 Yeny Govea, BUSINESS SEGMENT MANAGER-C BUSINESS SEGMENT MANAGER-Csnw Arie Prescott MD MD rn Baxter, Heather, RN RN hb Knox, Taylor, RN RN tl2 Corrections: (The following items were deleted from the chart) 06/25 19:41 19:14 06/25/2018 19:14 Discharged to Home. Impression: Vertiginous syndromes in tl2 diseases classified elsewhere, unspecified ear. Condition is Stable. Forms are Medication Reconciliation Form, Thank You Letter, Antibiotic Education, Prescription Opioid Use. Follow up: Gus Easton; When: Tomorrow; Reason: Recheck today's complaints, Continuance of care, Re-evaluation by your physician. snw
[2018-06-25 20:17] VITALS: TEMP 97.6
[2018-06-25 20:18] VITALS: O2SAT 97
[2018-06-25 20:22] VITALS: BP 116/58
--- NOTE | 2018-06-25 21:49 | EKG ---
Test Date: 2018-06-25 Test Time: 18:44:24 Piece Jobber: VIVEK MEASUREMENT RESULTS: Intervals: Rate: 84 [place]: 152 QRSD: 74 QT: 396 QTc: 467 [place]: P: 38 AZ: 152 QRS: 57 T: 51 INTERPRETIVE STATEMENTS: Normal sinus rhythm Normal ECG Compared to ECG 06/25/2018 15:36:16 No significant changes Electronically Signed On 06-25-18 21:48:57 SOUND EFFECTS PERSON by Nolan Taveras
--- NOTE | 2018-06-25 21:50 | EKG ---
Test Date: 2018-06-25 Test Time: 15:36:16 Electric Range Servicer: MEASUREMENT RESULTS: Intervals: Rate: 88 SC: 148 QRSD: 78 QT: 380 QTc: 459 [place]: P: 29 SC: 148 QRS: 42 T: 37 INTERPRETIVE STATEMENTS: Normal sinus rhythm Normal ECG Compared to ECG 03/31/2017 16:01:44 No significant changes Electronically Signed On 06-25-18 21:49:30 WELDER FITTER APPRENTICE by Nolan Taveras
== END 2018-06-25 19:41 | disposition home or self-care (01) ==
LOC: ER 14:54
DX: H81.90 Unspecified disorder of vestibular function, unspecified ear (principal); Z86.73 Personal history of transient ischemic attack (TIA), and cerebral infarction without residual deficits
CPT/HCPCS: 36415; 71045; 80048; 80076; 82962; 83735; 83880; 84484; 85025; 85610; 93005; 99285

== ENCOUNTER 2019-07-13 12:22 | Emergency (ER) | payer OTHER ==
--- OUTSIDE RECORDS SUMMARY | 2019-07-13 13:53 | XMS REPORT ---
:1955 [facility] Address [address] [place] [address] Dr. Plasencia [address] [place] [id number] Care Team Providers Name Role Phone MIKE ROWLEY GEN Unavailable Unavailable Problems This patient has no known problems. Allergies, Adverse Reactions, Alerts This patient has no known allergies or adverse reactions. Medications This patient has no known medications. Results Test Description Test Time Test Comments Text Results Atomic Results Result Comments BLOOD CULTURE 2018-12-26 22:00:00 Test Item Value Reference Range Comments CULTURE (BEAKER) (test ciyr=8829) No growth in 5 days BLOOD [id number] 22:00:00 Test Item Value Reference Range Comments CULTURE (BEAKER) (test tnir=4090) No growth in 5 days POCT-GLUCOSE [id number] 12:00:00 Test Item Value Reference Range Comments POC-GLUCOSE METER (BEAKER) 90 mg/dL 70-110 TESTED AT [address] (test skvo=6439) [facility] [address] POCT-GLUCOSE [id number] 08:25:00 Test Item Value Reference Range Comments POC-GLUCOSE METER (BEAKER) 103 mg/dL 70-110 TESTED AT [address] (test bfhv=3007) [facility] [address] POCT-GLUCOSE [id number] 20:14:00 Test Item Value Reference Range Comments POC-GLUCOSE METER (BEAKER) 135 mg/dL 70-110 TESTED AT [address] (test vvdp=1107) [facility] [address] POCT-GLUCOSE [id number] 20:13:00 Test Item Value Reference Range Comments POC-GLUCOSE METER (BEAKER) 101 mg/dL 70-110 TESTED AT [address] (test htpa=3911) [facility] [address] RAD, CHEST, 2 [id number] 16:34:00Reason for exam:->f/u infiltrateFINAL REPORT CHEST, AP AND LATERAL. HISTORY: Follow-up infiltrate. COMPARISON: None available. Impression: In this patient with reported history of infiltrate, no prior examinations are available for comparison. Mild left basilar/retrocardiac opacities noted which may reflect atelectasis. An underlying airspace process cannot be entirely excluded on the basis of this examination. There is no evidence for large focal consolidation, pneumothorax, or significant pleural effusion. The cardiomediastinal silhouette is within normal limits. Cervical fusion hardware noted. No acute osseous abnormalities identified. Signed: Fabien Clarkeport Verified Date/Time: 16:34:43 Reading Location: [facility] Radiology Reading Room POCT- GLUCOSE [id number] 08:37:00 Test Item Value Reference Range Comments POC-GLUCOSE METER (BEAKER) 148 mg/dL 70-110 TESTED AT [facility] [address] [place] [address] (test avkz=0105) [address] [facility] [address] BASIC METABOLIC [id number] 05:01:00 Test Item Value Reference Range Comments SODIUM (BEAKER) (test 139 meq/L 135-148 nazx=761) POTASSIUM (BEAKER) (test 4.2 meq/L 3.6-5.5 omqx=939) CHLORIDE (BEAKER) (test 105 meq/L 98-106 kwqj=777) CO2 (BEAKER) (test 26 meq/L 20-29 dhky=103) BLOOD UREA NITROGEN 8 mg/dL 10-26 (BEAKER) (test jadw=712) CREATININE (BEAKER) (test 0.76 mg/dL 0.50-1.20 hkua=721) GLUCOSE RANDOM (BEAKER) 106 mg/dL 70-110 (test nbvs=381) CALCIUM (BEAKER) (test 8.8 mg/dL 8.5-10.5 dqry=292) EGFR (BEAKER) (test 77 mL/min/1.73 sq m ESTIMATED GFR IS NOT cijt=4721) ACCURATE CREATININE CLEARANCE IN PREDICTING GLOMERULAR FILTRATION RATE. ESTIMATED GFR IS NOT APPLICABLE FOR DIALYSIS PATIENTS. CBC W/PLT COUNT & AUTO [id number] 04:38:00 Test Item Value Reference Range Comments WHITE BLOOD CELL COUNT (BEAKER) (test gkfz=971) 5.0 K/ L 4.0-10.0 RED BLOOD CELL COUNT (BEAKER) (test gftc=883) 4.13 M/ L 4.00-5.00 HEMOGLOBIN (BEAKER) (test dckd=878) 13.4 GM/DL 12.0-15.5 HEMATOCRIT (BEAKER) (test rwyj=769) 40.9 % 36.0-46.0 MEAN CORPUSCULAR VOLUME (BEAKER) (test svos=018) 99.0 fL 82.0-99.0 MEAN CORPUSCULAR HEMOGLOBIN (BEAKER) (test 32.4 pg 27.0-33.0 cbut=046) MEAN CORPUSCULAR HEMOGLOBIN CONC (BEAKER) (test 32.8 GM/DL 32.0-36.0 idvo=586) RED CELL DISTRIBUTION WIDTH (BEAKER) (test 13.0 % 12.0-15.0 tfmf=090) PLATELET COUNT (BEAKER) (test qeum=885) 285 K/CU MM 150-430 MEAN PLATELET VOLUME (BEAKER) (test zfph=736) 8.9 fL 6.0-11.5 NUCLEATED RED BLOOD CELLS (BEAKER) (test 0 /100 WBC 0-0 znuz=834) NEUTROPHILS RELATIVE PERCENT (BEAKER) (test 44 % olib=005) LYMPHOCYTES RELATIVE PERCENT (BEAKER) (test 40 % mcru=586) MONOCYTES RELATIVE PERCENT (BEAKER) (test 13 % xjbf=120) EOSINOPHILS RELATIVE PERCENT (BEAKER) (test 2 % famu=137) BASOPHILS RELATIVE PERCENT (BEAKER) (test 0 % tlpi=997) NEUTROPHILS ABSOLUTE COUNT (BEAKER) (test 2.19 K/ L 1.80-8.00 rvqq=138) LYMPHOCYTES ABSOLUTE COUNT (BEAKER) (test 2.00 K/ L 1.48-4.50 hopk=132) MONOCYTES ABSOLUTE COUNT (BEAKER) (test 0.65 K/ L 0.00-1.30 vtxz=475) EOSINOPHILS ABSOLUTE COUNT (BEAKER) (test 0.12 K/ L 0.00-0.50 vxix=276) BASOPHILS ABSOLUTE COUNT (BEAKER) (test 0.02 K/ L 0.00-0.20 fqzj=571) IMMATURE GRANULOCYTES-RELATIVE PERCENT ([facility]) 0 % 0-0 (test mior=7085) POCT-GLUCOSE [id number] 20:46:00 Test Item Value Reference Range Comments POC-GLUCOSE METER ([facility]) 236 mg/dL 70-110 TESTED AT [address] (test micr=9167) [facility] [address] POCT-GLUCOSE [id number] 18:27:00 Test Item Value Reference Range Comments POC-GLUCOSE METER ([facility]) 100 mg/dL 70-110 TESTED AT [address] (test rxlq=3502) [facility] [address]
--- OUTSIDE RECORDS SUMMARY | 2019-07-13 13:54 | XMS REPORT ---
:1955 Author Organization [employer] Care Team Providers Name Role Phone Gus Easton Provider Role Unavailable Allergies No Known Allergies Problems Problem Type Condition Code Onset Dates Condition Status Problem Moderate persistent asthma without J45.40 Active complication Problem Generalized abdominal pain R10.84 Active Problem Spinal stenosis of lumbosacral M48.07 Active region Problem Degenerative disc disease, cervical M50.30 Active Problem Gastroesophageal reflux disease K21.9 Active Problem Fibromyalgia M79.7 Active Problem Migraine G43.909 Active Problem Cataract H26.9 Active Problem Mixed hyperlipidemia E78.2 Active Problem Acquired hypothyroidism E03.9 Active Problem Diabetic neuropathy E11.40 Active Problem Controlled type 2 diabetes mellitus E11.9 Active without complication, without long-term current use of insulin Problem History of CVA with residual I69.30 Active deficit Problem Chronic obstructive pulmonary J44.9 Active disease, unspecified COPD type Problem 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 Active Problem Primary osteoarthritis of right hip M16.11 Active Problem Hypothyroidism E03.9 Active Problem Depression F32.9 Active Problem Constipation, unspecified K59.00 Active constipation type Problem Ecchymosis R58 Active Problem Seasonal allergies J30.2 Active Problem Fatty liver disease, nonalcoholic K76.0 Active Problem 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
--- OUTSIDE RECORDS SUMMARY | 2019-07-13 13:55 | XMS REPORT ---
:1955 Author Organization eClinicalWorks Care Team Providers Name Role Phone EastonGus Provider Role Unavailable Allergies, Adverse Reactions, Alerts Substance Reaction Event Type NSAIDS Info Not Available Drug Allergy MORPHINE Info Not Available Drug Allergy Iodine Info Not Available Drug Allergy Problems Problem Type Condition Code Onset Dates Condition Status Assessment Controlled type 2 diabetes mellitus E11.9 [...] Hypothyroidism E03.9 Active Problem Depression F32.9 Active Assessment Fatty liver disease, nonalcoholic K76.0 Active Problem Constipation, unspecified K59.00 Active constipation type Problem Ecchymosis R58 Active Assessment 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 Problem Seasonal allergies J30.2 Active Problem Fatty liver disease, nonalcoholic K76.0 Active Problem 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 Problem Depression with anxiety F41.8 Active Assessment Mixed hyperlipidemia E78.2 Active Problem Diabetes E11.9 Active Assessment Acquired hypothyroidism E03.9 Active Problem Allergic rhinitis J30.9 Active Assessment Depression with anxiety F41.8 Active Problem Asthma J45.909 Active Assessment 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 Active Problem COPD (chronic obstructive pulmonary J44.9 Active disease) Assessment History of CVA (cerebrovascular Z86.73 Active accident) without residual deficits Problem 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 Assessment Chronic obstructive pulmonary J44.9 Active disease, unspecified COPD type Problem Hyperlipidemia, mixed E78.2 Active Problem 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.8 Active Problem Osteoarthritis M19.90 Active Medications Medication Code Code Instructions Start End Status Dosage System Date Date Tradmehul [facility] 13729436095 5 MG Orally Active 1 tablet Once a day Lancets Super NDC 0 n/s finger Active one Thin stick twice a day Meclizine HCl [facility] 79597061431 25 MG Orally Jun 26, Active 1 tablet as BID PRN 2018 needed Vertigo/Dizzin ess Folic Acid [facility] 21041312439 1 MG Oral Active TAKE 1 TABLET BY MOUTH ONCE DAILY Levothyroxine [facility] 61104896997 112 MCG Orally Active 1 tablet on an Sodium Once a day empty stomach in the morning Praluent [facility] 95594394113 75MG/ML SC Active INJECT 75 MG once every 2 SUBCUTANEOUSLY weeks EVERY 2 WEEKS Albuterol [facility] 09811472862 (5 MG/ML) 0.5% Active 1 ml as needed Sulfate Inhalation every 6 hrs Albuterol [facility] 20580660779 108 (90 Base) Dec 29, Active 2 puffs as Sulfate HFA MCG/ACT 2018 needed Inhalation every 6 hrs True Metrix [facility] 34354654504 - Active USE 1 STRIP TO Blood Glucose CHECK GLUCOSE Test TWICE DAILY Rasuvo [facility] 35449656582 20 MG/0.4ML Nov Inactive ADMINISTER 0.4 Subcutaneous 15, ML (20 MG) 2018 SUBCUTANEOUSLY WEEKLY FOR ARTHRITIS Glucometer [facility] 94753636372 n/s n/s use as Active one directed Alcohol Prep NDC 0 Active as directed Pads blood glucose ND 0 n/s twice a Active one test strip day Citalopram [facility] 83233882370 40MG Orally Active take one tablet Hydrobromide Once a day by mouth once daily Results No Known Results Summary Purpose eClinicalWorks Submission
--- OUTSIDE RECORDS SUMMARY | 2019-07-13 13:56 | XMS REPORT ---
:1955 Author Organization eClinicalWorks Care Team Providers Name Role Phone Rustam Gus Provider Role Unavailable Allergies No Known Allergies [...] Start End Status Dosage System Date Date Praluent [facility] 27675831279 75 MG/ML Active 1 ml Subcutaneous every 2 weeks Citalopram [facility] 12595099834 40MG Inactive TAKE ONE TABLET Hydrobromide BY MOUTH ONCE DAILY Praluent ND 97843804162 75MG/ML SC Inactive INJECT 75 MG once every 2 SUBCUTANEOUSLY weeks EVERY 2 WEEKS Results No Known Results Summary Purpose eClinicalWorks Submission
--- OUTSIDE RECORDS SUMMARY | 2019-07-13 13:56 | XMS REPORT | Summary of Care ---
:1955 Author Organization [facility] Address [address] [place] [id number] Care Team Providers Name Role Phone Марина Carrion MD Unavailable Unavailable Gus Easton Primary Care Provider Reason for Referral MRI/CAT Scan (Routine) Status Reason Specialty Diagnoses / Referred By Referred To Procedures Contact Contact Closed Diagnostic Diagnoses Snapping hip, right Ho, Kristopher Radiology Procedures MR HIP RIGHT WO CONTRAST [address] [place] [address] Reason for Visit MRI/CAT Scan (Routine) Status Reason Specialty Diagnoses / Referred By Referred To Procedures Contact Contact Closed Diagnostic Diagnoses Snapping hip, right Ho, Kristopher Radiology Procedures MR HIP RIGHT WO CONTRAST [address] [place] [address] Encounter Details Date Type Department Care Team Description 05/31/[address] [facility] Radiology [facility] [address] [address] [place] [phone] Allergies Active Allergy Reactions Severity Noted Date Comments Ciprofloxacin Hives 01/07/2016 Codeine Other - See comments 01/07/2016 Slows heart rate down Iodine Hives 01/07/2016 Levofloxacin Hives 01/07/2016 Morphine Hallucinations 01/07/2016 Nsaids (Non-Steroidal Other - See comments 01/07/2016 Patient states that Anti-Inflammatory Drug) its cause immune system issues documented as of this encounter (statuses as of 06/01/2019) Medications Medication Sig Dispensed Refills Start Date End Date Status citalopram (CELEXA) 20 Take 40 mg by 0 Active mg tablet mouth daily. alirocumab (PRALUENT inject under the 0 Active PEN) 75 mg/mL PnIj skin. aspirin 81 mg chewable Take 81 mg by 0 Active tablet mouth daily. Cholecalciferol, Take by mouth. 0 Active Vitamin D3, (VITAMIN D3) 2,000 unit tablet LORATADINE (CLARITIN Take by mouth. 0 Active ORAL) fluticasone 50 Use 2 Sprays in 16 g 11 12/29/2017 Active mcg/actuation nasal each nostril spray daily. albuterol 90 Inhale 2 Puffs 8.5 g 6 12/29/2017 Active mcg/actuation inhaler every 6 (six) hours as needed for Wheezing or Shortness of Breath. predniSONE 5 mg tablet 0 08/23/2018 Active levothyroxine 112 mcg Take 1 tablet by 90 tablet 3 08/29/2018 Active tabletIndications: mouth every Primary hypothyroidism morning. foLIC acid 1 mg tablet TAKE 1 TABLET BY 1 10/18/2018 Active MOUTH ONCE DAILY RESTASIS 0.05 % INSTILL 1 DROP 3 11/14/2018 Active ophthalmic drops INTO EACH EYE TWICE DAILY Docusate Sodium 100 mg Take 1 tablet by 0 Active tablet mouth. ondansetron 4 mg DISSOLVE 1 TABLET 0 12/23/2018 Active disintegrating tablet IN MOUTH EVERY 8 HOURS NEEDED FOR NAUSEA FOR UP TO 7 DAYS tofacitinib (XELJANZ Take 11 mg by 0 Active XR) 11 mg Tb24 mouth daily. linaGLIPtin (TRADJENTA) Take 1 tablet by 90 tablet 3 04/04/2019 Active 5 mg tabletIndications: mouth daily. Type 2 diabetes mellitus with complication, without long-term current use of insulin documented as of this encounter (statuses as of 06/01/2019) Active Problems Problem Noted Date Osteopenia of left hip 08/16/2017 Osteopenia of spine 08/16/2017 Other specified hypothyroidism 04/26/2017 Type 2 diabetes mellitus with complication, without long-term current use 04/2017 of insulin NAOMI (obstructive sleep apnea) 04/26/2017 Prediabetes 02/17/2016 Low IGF-1 level 01/20/2016 documented as of this encounter (statuses as of 06/01/2019) Resolved Problems Problem Noted Date Resolved Date Growth hormone deficiency 02/17/2016 08/29/2018 documented as of this encounter (statuses as of 06/01/2019) Immunizations Name Administration Dates Next Due Influenza Virus Vaccine (3+ yrs) 02/15/2017 documented as of this encounter Social History Tobacco Use Types Packs/Day Years Used Date Never Smoker Smokeless Tobacco: Never Used Alcohol Use Drinks/Week oz/Week Comments Yes 0 Standard drinks or equivalent 0.0 social Sex Assigned at Date Recorded Not on file Job Start Date Occupation Industry Not on file Not on file Not on file Travel History Travel Start Travel End No recent travel history available. documented as of this encounter Last Filed Vital Signs Not on filedocumented in this encounter Plan of Treatment Date Type Specialty Care Team Description 06/01/2019 Office Visit Pulmonary Disease Leonid Napoles, [address] [place] [address] [phone] 08/08/2019 Office Visit Endocrinology Diabetes & Rika Gutierrez MD [address] [address] [phone] 09/10/2019 Office Visit Obstetrics & Gynecology Merry Shrestha MD [address] [place] [address] [place] [address] [phone] Health Maintenance Due Date Last Done Comments HgA1C 02/28/2019 08/29/2018, 02/28/2018, 11/22/2017, Additional history exists DTaP,Tdap,and Td Vaccines 07/16/2019 Postponed from (1 - Tdap) 10/24/1967 (Patient Does Not Have Time) Breast Cancer Screening 08/03/2019 08/02/2018, 11/25/2017 (MAMMOGRAM) COLONOSCOPY 08/15/2019 Postponed from 2006 (Patient Does Not Have Time) CREATININE (SERUM) 08/15/2019 10/25/2017, 08/16/2017, Postponed from 02/01/2017 10/25/2018 (Patient Does Not Have Time) HEPATITIS C (HCV) SCREEN 08/15/2019 Postponed from 1955 (Patient Does Not Have Time) LDL-C 08/15/2019 11/22/2017, 02/01/2017 Postponed from 11/22/2018 (Patient Does Not Have Time) URINE MICROALBUMIN 08/15/2019 02/01/2017 Postponed from 02/01/2018 (Patient Does Not Have Time) EYE EXAM 09/14/2019 09/13/2018, 09/13/2017 INFLUENZA VACCINE (#1) 2020 02/15/2017 Postponed from 01/14/2019 (Refused) PNEUMOCOCCAL 0-64 YEARS 01/30/2020 Postponed from COMBINED SERIES (1 of 1 - 1962 (Refused) PPSV23) Zoster Recombinant Vaccine 01/30/2020 Postponed from (SHINGRIX) (1 of 2) 2006 (Refused) FOOT EXAM 04/04/2020 04/04/2019, 04/04/2019, 08/29/2018, Additional history exists PAP SMEAR Discontinued documented as of this encounter Procedures Procedure Name Priority Date/Time Associated Diagnosis Comments MR HIP RIGHT WO Routine 05/31/2019 12:48 PM Snapping hip, right Results for this CONTRAST DRAPERY WORKER procedure are in the results section. documented in this encounter Results MR HIP RIGHT WO CONTRAST (05/31/2019 12:48 PM DRAPERY WORKER) Specimen Impressions Performed At PACS/VR/DOSE Right hip osteoarthrosis with high-grade chondral loss with small sized effusion containing mild synovial thickening and/or osseous chondral debris. No acute osseous abnormality. Narrative Performed At EXAM: PACS/VR/DOSE MRI RIGHT HIP HISTORY: Right hip pain COMPARISON: None TECHNIQUE AND FINDINGS: 1.5T multiplanar multiweighted MR imaging of the right hip was performed. BONE AND JOINT: A small sized right hip joint effusion is present containing low signal debris. Joint space narrowing with marginal osteophyte formation is seen about the right femoral acetabular joint. Focal subcortical cyst formation is seen at the level of the posterior wall of the acetabulum. No labral detachment is present. Grade 3 chondral thinning is seen along the superior femoral acetabular articular surfaces. LIGAMENTS /TENDONS/SOFT TISSUES: The musculotendinous structures are within normal limits. There is no muscle atrophy or edema. The visualized femoral and sciatic neurovascular bundles are unremarkable. Procedure Note [facility], Radiant Results Inft User - 05/31/2019 1:02 PM DRAPERY WORKER EXAM: MRI RIGHT HIP HISTORY: Right hip pain COMPARISON: None TECHNIQUE AND FINDINGS: 1.5T multiplanar multiweighted MR imaging of the right hip was performed. BONE AND JOINT: A small sized right hip joint effusion is present containing low signal debris. Joint space narrowing with marginal osteophyte formation is seen about the right femoral acetabular joint. Focal subcortical cyst formation is seen at the level of the posterior wall of the acetabulum. No labral detachment is present. Grade 3 chondral thinning is seen along the superior femoral acetabular articular surfaces. LIGAMENTS /TENDONS/SOFT TISSUES: The musculotendinous structures are within normal limits. There is no muscle atrophy or edema. The visualized femoral and sciatic neurovascular bundles are unremarkable. IMPRESSION Right hip osteoarthrosis with high-grade chondral loss with small sized effusion containing mild synovial thickening and/or osseous chondral debris. No acute osseous abnormality. Performing Organization Address City/State/Zipcode Phone Number PACS/VR/DOSE documented in this encounter Visit Diagnoses Diagnosis Snapping hip, right documented in this encounter Administered Medications Medication Order MAR Action Action Date Dose Rate Site LORazepam (ATIVAN) tablet 2 mg Given 05/31/2019 11:24 AM DRAPERY WORKER 2 mg 2 mg, Oral, ONCE, 1 dose, Ines 05/31/19 at 1230, Routine documented in this encounter Insurance Payer Benefit Plan / Subscriber ID Effective Dates Phone Address Type Group MEDICARE MEDICARE PART xxxxxxxxxxx 2014-Prese [id number] [place] [address] [facility] MEDICAID OF xxxxxxxxx 2013-Prese [phone] [address] [place] [id number] [place] [address] documented as of this encounter
--- NOTE | 2019-07-13 14:32 | RAD REPORT ---
EXAM DESCRIPTION: RAD - Chest Pa And Lat (2 Views) - 07/13/2019 2:10 pm CLINICAL HISTORY: fever, cough COMPARISON: Chest Pa And Lat (2 Views) dated 01/17/2019; Chest Pa And Lat (2 Views) dated 12/29/2018 TECHNIQUE: Frontal and lateral views of the chest were obtained. FINDINGS: The lungs are underinflated. Patient has a prominent baseline interstitial pattern. This is focally more pronounced in the medial left base. This has been present on the 2 prior studies and is believed to be scarring. The baseline pattern could mask early interstitial edema or infiltrate. Heart size is normal. No vascular engorg ement. Trachea is midline. No pleural effusion or pneumothorax seen. No acute bony finding noted. N o aortic abnormality. Numerous surgical clips are seen near the GE junction. IMPRESSION: Chronic interstitial pattern similar to comparison studies. Baseline pattern could potentially mask early edema or infiltrate.
--- NOTE | 2019-07-13 15:03 | ER ---
Nurse's Notes [facility] Name: Kathy Ledesma Age: 63 yrs Sex: Female : 1955 Arrival Date: 07/13/2019 Time: 12:24 Bed 20 Private MD: Gus Easton Diagnosis: Acute pharyngitis Presentation: 07/13 12:35 Chief complaint: Patient states: sore throat x 4-5 days and fever since yesterday. ss Coronavirus screen: The patient has NOT traveled to [place] in the past 14 days. Proceed with normal triage procedures. Ebola Screen: Patient denies exposure to infectious person. Patient denies travel to an Ebola-affected area in the 21 days before illness onset. Initial Sepsis Screen: Does the patient meet any 2 criteria? No. Patient's initial sepsis screen is negative. Does the patient have a suspected source of infection? No. Patient's initial sepsis screen is negative. Risk Assessment: Do you want to hurt yourself or someone else? Patient reports no desire to harm self or others. 12:35 Method Of Arrival: Ambulatory ss 12:35 Acuity: ZAK 4 ss 12:45 Onset of symptoms was July 13, 2019. ca1 Historical: - Allergies: 12:50 Codeine; ss 12:50 Morphine; ss 12:50 NSAIDS; ss 12:50 Relafen; ss - PMHx: 12:50 COPD; CVA; Diabetes - NIDDM; Fibromyalgia; Hypothyroidism; spinal stenosis; shingles; ss - Immunization history:: Adult Immunizations up to date. - Social history:: Smoking status: Patient denies any tobacco usage or history of. Screenin:45 Abuse screen: Denies threats or abuse. Denies injuries from another. Nutritional ca1 screening: No deficits noted. Tuberculosis screening: No symptoms or risk factors identified. Fall Risk None identified. Assessment: 12:45 General: Appears in no apparent distress. comfortable, Behavior is calm, cooperative, ca1 appropriate for age, Reports feeling ill for > 3 days. Pain: Complains of pain in throat. Neuro: Level of Consciousness is awake, alert, obeys commands, Oriented to person, place, time, situation, Appropriate for age. Cardiovascular: Heart tones S1 S2 present Capillary refill < 3 seconds Patient's skin is warm and dry. Respiratory: Airway is patent Respiratory effort is even, unlabored, Respiratory pattern is regular, symmetrical, Breath sounds are clear bilaterally. Respiratory: Reports cough that is. GI: Abdomen is round non-distended, Bowel sounds present X 4 quads. Abd is soft and non tender X 4 quads. : No signs and/or symptoms were reported regarding the genitourinary system. EENT: Throat is clear. EENT: Reports nasal congestion. Derm: Skin is intact, is healthy with good turgor, Skin is pink, warm \T\ dry. Musculoskeletal: Circulation, motion, and sensation intact. Capillary refill < 3 seconds. 13:45 Reassessment: Patient appears in no apparent distress at this time. No changes from ca1 previously documented assessment. Patient and/or family updated on plan of care and expected duration. Pain level reassessed. Patient is alert, oriented x 3, equal unlabored respirations, skin warm/dry/pink. 13:50 Reassessment: Pt to Xray. ca1 14:08 Reassessment: Patient appears in no apparent distress at this time. Patient and/or ca1 family updated on plan of care and expected duration. Pain level reassessed. Patient is alert, oriented x 3, equal unlabored respirations, skin warm/dry/pink. 15:00 Reassessment: Patient appears in no apparent distress at this time. Patient is alert, ca1 oriented x 3, equal unlabored respirations, skin warm/dry/pink. Vital Signs: 12:35 BP 123 / 89; Pulse 87; Resp 17; Temp 98.9(TE); Pulse Ox 96% ; Weight 83.91 kg; Height 5 ss ft. 2 in. (157.48 cm); Pain 9/10; 13:45 BP 121 / 70; Pulse 81; Resp 16 S; Pulse Ox 95% on R/A; ca1 14:44 BP 141 / 79; Pulse 91; Resp 17 S; Temp 97.6(TE); Pulse Ox 99% on R/A; ca1 12:35 Body Mass Index 33.84 (83.91 kg, 157.48 cm) ss ED Course: 12:24 Patient arrived in ED. mr 12:24 Aquilino Easton MD is Private Physician. mr 12:24 Gus Easton DO is Private Physician. mr 12:40 [facility] 12:41 Mando Stern MD is Attending Physician. [facility] 12:43 Maki Rodriguez, RN is Primary Nurse. ca1 12:45 Patient has correct armband on for positive identification. Placed in gown. Bed in low ca1 position. Call light in reach. Side rails up X 1. Pulse ox on. NIBP on. Warm blanket given. 12:45 No provider procedures requiring assistance completed. Patient did not have IV access ca1 during this emergency room visit. 12:48 Triage completed. ss 12:50 Arm band placed on right wrist. ss 14:12 Chest Pa And Lat (2 Views) XRAY In Process Unspecified. EDMS 15:02 Gus Easton DO is Referral Physician. eric Administered Medications: No medications were administered Outcome: 15:03 Discharge ordered by . jm 15:13 Discharged to home ambulatory, with family. ca1 15:13 Condition: stable 15:13 Discharge instructions given to patient, Instructed on discharge instructions, follow up and referral plans. medication usage, Demonstrated understanding of instructions, follow-up care, medications, Prescriptions given X 1. 15:14 Patient left the ED. ca1 Signatures: Dispatcher [employer] [facility] Roberto Hogan PA PA jmm Rivera, Mary mr Lilibeth Andres, RN RN Maki Rodriguez, MARQUES RN [facility]
--- NOTE | 2019-07-13 15:03 | EDPHYS ---
Physician Documentation [facility] Name: Kathy Ledesma Age: 63 yrs Sex: Female : 1955 Arrival Date: 07/13/2019 Time: 12:24 Bed 20 Private MD: Rustam [facility] ED Physician Mando Stern HPI: 07/13 13:02 This 63 yrs old Female presents to ER via Ambulatory with complaints of Fever, jmm Cough, Sore Throat. 13:02 The patient or guardian reports cough. Onset: The symptoms/episode began/occurred jmm gradually, 4 day(s) ago. Modifying factors: The symptoms are alleviated by nothing. the symptoms are aggravated by nothing. Associated signs and symptoms: Pertinent positives: sore throat. This is a 63 year old female with a history of DM, COPD, that presents to the ED with complaints of cough, fatigue, congestion beginning this past Tuesday. Patient states developing upset stomach and nausea. . Historical: - Allergies: 12:50 Codeine; ss 12:50 Morphine; ss 12:50 NSAIDS; ss 12:50 Relafen; ss - PMHx: 12:50 COPD; CVA; Diabetes - NIDDM; Fibromyalgia; Hypothyroidism; spinal stenosis; shingles; ss - Immunization history:: Adult Immunizations up to date. - Social history:: Smoking status: Patient denies any tobacco usage or history of. ROS: 13:02 Back: Negative for injury and pain, MS/Extremity: Negative for injury and deformity. jmm 13:02 Constitutional: Positive for body aches, chills, fatigue. 13:02 ENT: Positive for sore throat. 13:02 Respiratory: Positive for cough. 13:02 Abdomen/GI: Positive for nausea. 13:02 All other systems are negative. Exam: 13:02 Constitutional: This is a well developed, well nourished patient who is awake, alert, jmm and in no acute distress. Head/Face: atraumatic. Eyes: EOMI, no conjunctival erythema appreciated 13:02 Neck: Trachea midline, Supple Chest/axilla: Normal chest wall appearance and motion. 13:02 Respiratory: Normal respirations, no respiratory distress appreciated Abdomen/GI: Non distended, soft Back: Normal ROM Skin: General appearance color normal MS/ Extremity: Moves all extremities, no obvious deformities appreciated, no edema noted to the lower extremities Neuro: Awake and alert, normal gait Psych: Behavior is normal, Mood is normal, Patient is cooperative and pleasant 13:02 ENT: Posterior pharynx: erythema, that is mild. 13:02 Cardiovascular: Rate: normal, Rhythm: regular, Pulses: no pulse deficits are appreciated. Vital Signs: 12:35 BP 123 / 89; Pulse 87; Resp 17; Temp 98.9(TE); Pulse Ox 96% ; Weight 83.91 kg; Height 5 ss ft. 2 in. (157.48 cm); Pain 9/10; 13:45 BP 121 / 70; Pulse 81; Resp 16 S; Pulse Ox 95% on R/A; ca1 14:44 BP 141 / 79; Pulse 91; Resp 17 S; Temp 97.6(TE); Pulse Ox 99% on R/A; ca1 12:35 Body Mass Index 33.84 (83.91 kg, 157.48 cm) ss MDM: 12:43 Patient medically screened. [facility] 13:05 Data reviewed: vital signs, nurses notes. Counseling: I had a detailed discussion with ulises the patient and/or guardian regarding: the historical points, exam findings, and any diagnostic results supporting the discharge/admit diagnosis. 15:01 Data reviewed: lab test result(s), radiologic studies, plain films. ED course: Patient eric is alert and non toxic in appearance in the ED. Imaging studies negative. Patient advised to follow up with pcp and otherwise given strict return precautions. Patient understood and agrees with the plan of care. . 07/13 13:01 Order name: Flu; Complete Time: 14:07 [facility] 07/13 13:01 Order name: Strep; Complete Time: 14:07 [facility] 07/13 13:01 Order name: Chest Pa And Lat (2 Views) XRAY; Complete Time: 14:50 [facility] 07/13 14:06 Order name: Throat Culture EDMS Administered Medications: No medications were administered Disposition: 07/13/19 15:03 Discharged to Home. Impression: Acute pharyngitis. - Condition is Stable. - Discharge Instructions: Pharyngitis. - Prescriptions for Zithromax Z- Juan 250 mg Oral Tablet - take 1 tablet by ORAL route as directed for 5 days Day 1 - take two (2) tablets one time. Day 2, 3, 4 , 5 take one (1) tablet once daily.; 6 tablet. - Medication Reconciliation Form, Thank You Letter, Antibiotic Education, Prescription Opioid Use form. - Follow up: Gus Easton DO; When: 2 - 3 days; Reason: Recheck today's complaints, Continuance of care, Re-evaluation by your physician. Addendum: 07/15/2019 17:46 Co-signature as Attending Physician, Mando Stern MD I agree with the assessment and c carrizales plan of care. Signatures: Dispatcher [employer] EDMando Ahmadi MD MD cha Mickail, Joel, PA PA jmm Smirch, Shelby, MARQUES RN ss Maki Rodriguez RN RN ca1 Corrections: (The following items were deleted from the chart) 07/13 15:14 15:03 07/13/2019 15:03 Discharged to Home. Impression: Acute pharyngitis. Condition is ca1 Stable. Forms are Medication Reconciliation Form, Thank You Letter, Antibiotic Education, Prescription Opioid Use. Follow up: Gus Easton; When: 2 - 3 days; Reason: Recheck today's complaints, Continuance of care, Re-evaluation by your physician. eric
[2019-07-13 15:37] VITALS: BP 141/79; TEMP 97.6; O2SAT 99
== END 2019-07-13 15:14 | disposition home or self-care (01) ==
LOC: ER 12:22
DX: J02.9 Acute pharyngitis, unspecified (principal); Z88.5 Allergy status to narcotic agent; Z88.6 Allergy status to analgesic agent; Z88.8 Allergy status to other drugs, medicaments and biological substances
CPT/HCPCS: 71046; 87070; 87081; 87804; 99283

== ENCOUNTER 2019-10-16 18:43 | Emergency (ER) | payer OTHER ==
--- OUTSIDE RECORDS SUMMARY | 2019-10-16 18:46 | XMS REPORT | Clinical Summary ---
:1955 Author Organization [facility] Address [address] [place] [address] Care Team Providers Name Role Phone Gus Easton Primary Care Provider Allergies Active Allergy Reactions Severity Noted Date Comments Ciprofloxacin 12/21/2018 Codeine 12/21/2018 Iodine 12/21/2018 Levofloxacin 12/21/2018 Morphine 12/21/2018 Nsaids (Non-Steroidal Other (See Comments) 12/21/2018 Lethargic, flu like Anti-Inflammatory Drug) sypt oms Nabumetone 12/21/2018 Medications No known medications Active Problems Not on file Encounters Date Type Specialty Care Team Description 12/21/2018 Emergency Emergency Medicine Edie Hand, DO Pn eumonia of left lower lobe due to inf ectious organism (HCC) (Primary Dx) after 10/15/2018 Social History Tobacco Use Types Packs/Day Years Used Date Never Assessed Sex Assigned at Date Recorded Not on file Job Start Date Occupation Industry Not on file Not on file Not on file Travel History Travel Start Travel End No recent travel history available. Last Filed Vital Signs Vital Sign Reading Time Taken Comments Blood Pressure 126/58 12/21/2018 2:31 PM CDT Pulse 77 12/21/2018 2:31 PM CDT Temperature 36.6 C (97.8 F) 12/21/2018 2:31 PM CDT Respiratory Rate 18 12/21/2018 2:31 PM CDT Oxygen Saturation 94% 12/21/2018 2:31 PM CDT Inhaled Oxygen Concentration - - Weight - - Height 157.5 cm (5' 2") 12/21/2018 12:06 PM CDT Body Mass Index - - Plan of Treatment Health Maintenance Due Date Last Done Comments DIABETIC RETINAL EYE EXAM 1955 DIABETIC FOOT EXAM 1966 URINE MICROALBUMIN 1966 CERVICAL CANCER SCREENING 1977 BREAST CANCER SCREENING 2006 COLONOSCOPY SCREENING 2006 SHINGLES VACCINES (#1) 2006 INFLUENZA VACCINE 12/15/2019 Procedures Procedure Name Priority Date/Time Associated Comments Diagnosis CT ABDOMEN WO CONTRAST STAT 12/21/2018 2:30 R esults for this PM CDT procedure are i n the results section. ESTIMATED GFR STAT 12/21/2018 12:20 Results fo r this PM CDT procedure are i n the results section. COMPREHENSIVE STAT 12/21/2018 12:20 Results fo r this METABOLIC PANEL PM CDT procedure ar e in the results section. HC COMPLETE BLD COUNT STAT 12/21/2018 12:20 Re sults for this W/AUTO DIFF PM CDT procedure are i n the results section. URINALYSIS STAT 12/21/2018 12:15 Results for this PM CDT procedure are i n the results section. after 10/15/[address] Abdomen Wo Contrast (12/21/2018 2:30 PM CDT) Specimen Narrative Performed At EXAMINATION: CT ABDOMEN WO CONTRAST [facility] CLINICAL HISTORY: hx of multiple abd surgeries. with abd pain bloating and nausea COMPARISON: None. TECHNIQUE: Multiple axial CT images of the Abdomen and pelvis were obtained Without IV contrast limiting evaluation Oral contrast was administered. . Sagittal and coronal reconstructions w ere done. Radiation dose reduction technique used for this study. CT imaging was performed with iterative reconstruction technique and/or automated exposure control to reduce rad iation dose. FINDINGS: HEPATOBILIARY: Mildly fatty liver with out focal lesions. GALLBLADDER: Absent. SPLEEN: No splenomegaly. PANCREAS: Unremarkable within the limi tations of a noncontrast exam. ADRENALS: No adrenal nodules. KIDNEYS: No stones or hydronephrosis. PERITONEUM/RETROPERITONEUM: No free air or fluid. No lymphadenopathy. Surgical clips present in the upper retr operitoneum. ABDOMINAL AORTA/IVC: No signs of aneurys m. GI TRACT: Visualized portions of the bowel demonstra te no distention or wall thickening. Thank you is normal.No signs of divertic ulitis. PELVIC ORGANS/BLADDER: The urinary bladder is fluid- filled. Uterus and ovaries are absent. BONES AND SOFT TISSUES: No acute abnor mality. VISUALIZED LOWER CHEST: Focal airspace consolidations present in the left lower lobe measuring up to 3.3 cm m edially. Small hiatal hernia. IMPRESSION: No acute abnormality in the abdomen and pelvis. Left lower lobe pneumonia. Recommend follow-up CT ches t posttreatment to ensure resolution. [id number] Procedure Note Interface, Radiology Results Incoming - 12/21/2018 2:46 PM CDT EXAMINATION: CT ABDOMEN WO CONTRAST CLINICAL HISTORY: hx of multiple abd quintana rgeries. with abd pain bloating and nausea COMPARISON: None. TECHNIQUE: Multiple axial CT images of t he Abdomen and pelvis were obtained Without IV contrast limiting evaluation Oral contrast was administered. . Sagittal and coronal reconstructions were done. Radiation dose reduction technique used for this s james. CT imaging was performed with iterative reconstruction technique and/or automated exposure control to reduce radiation dose. FINDINGS: HEPATOBILIARY: Mildly fatty liver witho ut focal lesions. GALLBLADDER: Absent. SPLEEN: No splenomegaly. PANCREAS: Unremarkable within the limit ations of a noncontrast exam. ADRENALS: No adrenal nodules. KIDNEYS: No stones or hydronephrosis. PERITONEUM/RETROPERITONEUM: No free air or fluid. No lymphadenopathy. Surgical clips present in the upper retroperitoneum. ABDOMINAL AORTA/IVC: No signs of aneurys m. GI TRACT: Visualized portions of the harley wel demonstrate no distention or wall thickening. Thank you is normal.No signs of divertic ulitis. PELVIC ORGANS/BLADDER: The urinary blad pricilla is fluid-filled. Uterus and ovaries are absent. BONES AND SOFT TISSUES: No acute abnorm ality. VISUALIZED LOWER CHEST: Focal airspace c onsolidations present in the left lower lobe measuring up to 3.3 cm medially. Small hiatal hernia. IMPRESSION: No acute abnormality in the abdomen and pelvis. Left lower lobe pneumonia. Recommend fol low-up CT chest posttreatment to ensure resolution. [id number] Performing Organization Address City/State/Zipcode Phone Number [facility] [address] [place] [address] Estimated GFR (12/21/2018 12:20 PM CDT) Estimated GFR 54 (A) mL/min/1.73 [facility] Comment: m2 [facility] Catergory Units Interpretation ERA RGENCY CARE G1 >=90 Normal or high CENTER G2 60-89 Mildly decreased G3a 45-59 Mildly to moderately decreas ed G3b 30-44 Moderately to severely decre ased G4 15-29 Severely decreased G5 <15 Kidney failure The eGFR was calculated using the Chronic Kidney Disea se Epidemiology Collaboration (CKD-EPI) equation. Interpretation is based on recommendations of the National Kidney Foundation-Kidney Disease Outcomes Vitor lity Initiative (NKF-KDOQI) published in 2014. Specimen Plasma specimen Performing Organization Address City/State/Zipcode Phone Number DEPARTMENT OF PATHOLOGY AND [address] [place] [id number] [facility]OMIC MEDICINE, [facility] [address] [place] [address] [facility] CBC with platelet and differential (12/21/2018 12:20 PM CDT) Pathologist Sig nature WBC 5.10 4.50 - 11.00 k/uL [facility] RBC 4.87 4.20 - 5.50 m/uL [facility] HGB 15.5 12.0 - 16.0 g/dL [facility] HCT 47.9 (H) 37.0 - 47.0 % [facility] MCV 98.4 82.0 - 100.0 fL [facility] MCH 31.8 27.0 - 34.0 pg [facility] MCHC 32.4 31.0 - 37.0 g/dL [facility] RDW - SD 47.3 37.0 - 55.0 fL [facility] MPV 9.1 8.8 - 13.2 fL [facility] Platelet count 264 150 - 400 k/uL [facility] Neutrophils 51.1 39.0 - 69.0 % [facility] Lymphocytes 37.3 25.0 - 45.0 % [facility] Monocytes 10.2 (H) 0.0 - 10.0 % [facility] Eosinophils 1.2 0.0 - 5.0 % [facility] Basophils 0.2 0.0 - 1.0 % [facility] Specimen Blood Performing Organization Address City/State/Zipcode Phone Number DEPARTMENT OF PATHOLOGY AND [address] [place] [address] GENOMIC MEDICINE, [facility] [address] [place] [address] [facility] Comprehensive metabolic panel (12/21/2018 12:20 PM CDT) [facility] Sig nature Sodium 143 128 - 145 mEq/L [facility] Potassium 4.4 3.6 - 5.1 mEq/L [facility] CO2 30 18 - 33 mEq/L [facility] Chloride 99 98 - 108 mEq/L [facility] Glucose 101 73 - 118 mg/dL [facility] Calcium 9.5 8.0 - 10.3 [facility] mg/dL [facility] BUN 8 7 - 22 mg/dL [facility] Creatinine 1.1 (H) 0.5 - 0.9 mg/dL [facility] Alkaline phosphatase 104 42 - 141 U/L [facility] ALT 26 10 - 47 U/L [facility] AST 33 11 - 38 U/L [facility] Total bilirubin 0.4 0.2 - 1.6 mg/dL [facility] Albumin 4.2 3.3 - 5.5 g/dL [facility] Protein 8.4 (H) 6.4 - 8.1 g/dL [facility] Anion gap 14@ANIO 7 - 15 mEq/L [facility] A/G ratio 1.0 0.7 - 3.8 [facility] Specimen Plasma specimen Performing Organization Address City/State/Zipcode Phone Number DEPARTMENT OF PATHOLOGY AND [address] [place] [address] [facility] [address] Urinalysis (12/21/2018 12:15 PM CDT) Pathologist Sig nature Glucose, UA Negative Negative [facility] Bilirubin, UA Negative Negative [facility] Ketones, UA Negative Negative [facility] Specific gravity, UA =<1.005 1.001 - 1.035 [facility] Blood, UA Negative Negative [facility] pH, UA 5.5 5.0 - 8.5 [facility] Protein, UA Negative Negative [facility] Urobilinogen, UA <2.0 <2.0 [facility] Nitrite, UA Negative Negative [facility] Leukocyte esterase, Trace (A) Negative [facility] Color, UA Yellow [facility] Appearance, UA Clear [facility] Specimen Urine Performing Organization Address City/State/Zipcode Phone Number DEPARTMENT OF PATHOLOGY AND [address] [place] [address] [facility] [address] after 10/15/2018 Insurance Payer Benefit Plan / Subscriber ID Effective Dates Phone Addre ss Type Group MEDICARE MEDICARE PART A xxxxxxxxxxx 2014-Present [facility], [place] Medicare AND B MEDICAID MEDICAID xxxxxxxxx 2015-Present [place] d[place] Advance Directives For more information, please contact: [phone] Type Date Recorded Patient [place] Explanati on Advance Directives, Living Will 12/21/2018 12:19 PM and Medical Power of Customer Management Specialist
--- OUTSIDE RECORDS SUMMARY | 2019-10-16 18:46 | XMS REPORT | Clinical Summary ---
:1955 Author Organization [facility] Address [address] [place] [address] Care Team Providers Name Role Phone Unavailable Primary Care Provider Unavailable Allergies Active Allergy Reactions Severity Noted Date Comments Ciprofloxacin 12/21/2018 Codeine 12/21/2018 Iodine And Iodide Containing Products 12/2018 Levofloxacin 12/21/2018 Nsaids (Non-Steroidal Anti-Inflammatory Drug) 12/21/2018 Nabumetone 12/21/2018 Medications Medication Sig Dispensed Refills Start End Date Status Date aspirin 81 MG chewable Take 81 mg by mouth 0 Active tablet daily. citalopram (CELEXA) 20 Take 40 mg by mouth 0 Active MG tablet daily. loratadine (CLARITIN) Take 10 mg by mouth 0 Active 10 mg tablet as needed. folic acid (FOLVITE) 1 Take 1,000 mcg by 1 Active MG tablet mouth daily. 9 levothyroxine Take 112 mcg by 0 Active (SYNTHROID, LEVOTHROID) mouth every morning 9 112 MCG tablet before breakfast. RASUVO, PF, 20 mg/0.4 Inject 20 mg 2 Active mL AtIn subcutaneously once 9 a week. TRADJENTA 5 mg Tab Take 5 mg by mouth 3 Active daily. 9 cholecalciferol, Take 2,000 Units by 0 Active vitamin D3, 2,000 unit mouth daily. Tab methylPREDNISolone follow package 21 tablet 0 (MEDROL, SADE,) 4 mg directions. 9 19 tablet cefUROXime (CEFTIN) 500 Take 1 tablet (500 20 tablet 0 01 01/03/20 MG tablet mg total) by mouth 9 19 2 (two) times daily for 10 days. azithromycin Take 1 tablet (500 5 tablet 0 12/29/19 (ZITHROMAX) 500 MG mg total) by mouth 9 19 tablet daily for 5 days. ondansetron Take 1 tablet (4 mg 20 tablet 0 12/31/19 (ZOFRAN-ODT) 4 MG total) by mouth 9 19 disintegrating tablet every 8 (eight) hours as needed for Nausea for up to 7 days. Active Problems Problem Noted Date Pneumonia 12/21/2018 SOB (shortness of breath) 12/21/2018 Encounters Date Type Specialty Care Team Description 12/21/2018 - Hospital Encounter General Internal Kan Guevara monlupis due to 12/23/2018 Medicine MD Cristóbal infectious orga nism, unspecified laterality, unspecified par t of lung (Primary D x) 12/21/2018 Travel after 10/15/2018 Social History Tobacco Use Types Packs/Day Years Used Date Never Assessed Sex Assigned at Date Recorded Not on file Job Start Date Occupation Industry Not on file Not on file Not on file Travel History Travel Start Travel End No recent travel history available. Last Filed Vital Signs Vital Sign Reading Time Taken Blood Pressure 111/57 12/23/2018 3:45 PM CDT Pulse 74 12/23/2018 3:45 PM CDT Temperature 35.7 C (96.2 F) 12/23/2018 3:45 PM CDT Respiratory Rate 17 12/23/2018 3:45 PM CDT Oxygen Saturation 99% 12/23/2018 3:45 PM CDT Inhaled Oxygen Concentration - - Weight 83.1 kg (183 lb 3.2 oz) 12/21/2018 7:00 PM CDT Height 157.5 cm (5' 2") 12/21/2018 7:00 PM CDT Body Mass Index 33.51 12/21/2018 7:00 PM CDT Plan of Treatment Not on file Procedures Procedure Name Priority Date/Time Associated Comments Diagnosis RHYTHM STRIP - SCAN 12/26/2018 10:10 AM CDT POCT-GLUCOSE METER Routine 12/23/2018 11:40 Resul ts for this AM CDT procedure are i n the results section. POCT-GLUCOSE METER Routine 12/23/2018 7:44 Resul ts for this AM CDT procedure are i n the results section. POCT-GLUCOSE METER Routine 12/22/2018 8:05 Resul ts for this PM CDT procedure are i n the results section. POCT-GLUCOSE METER Routine 12/22/2018 5:05 Resul ts for this PM CDT procedure are i n the results section. XR CHEST 2 VIEWS Routine 12/22/2018 4:18 Results for this PM CDT procedure are i n the results section. POCT-GLUCOSE METER Routine 12/22/2018 7:54 Resul ts for this AM CDT procedure are i n the results section. CBC W/PLT COUNT & Routine 12/22/2018 4:02 Result s for this AUTO DIFFERENTIAL AM CDT procedure are in the results section. BASIC METABOLIC PANEL Routine 12/22/2018 4:02 Re sults for this (7) AM CDT procedure are i n the results section. CBC W/PLT COUNT & Routine 12/22/2018 4:02 Result s for this AUTO DIFFERENTIAL AM CDT procedure are in the results section. POCT-GLUCOSE METER Routine 12/21/2018 8:24 Resul ts for this PM CDT procedure are i n the results section. BLOOD CULTURE Routine 12/21/2018 6:52 Results fo r this PM CDT procedure are i n the results section. BLOOD CULTURE Routine 12/21/2018 6:52 Results fo r this PM CDT procedure are i n the results section. POCT-GLUCOSE METER Routine 12/21/2018 6:26 Resul ts for this PM CDT procedure are i n the results section. after 10/15/2018 Results RHYTHM STRIP - SCAN (12/26/2018 10:10 AM CDT) Narrative Performed At This result has an attachment that is no t available. POC-Glucose meter (12/23/2018 11:40 AM CDT)Only the most recent of7 results within the time period is included. POC-Glucose Meter 90Comment: TESTED AT [facility] 70 - 110 mg/dL [facility] [address] [facility] [address] Specimen Blood Performing Organization Address City/State/Zipcode Phone Number [facility] [address] [place] [address] CENTER XR chest 2 views (12/22/2018 4:18 PM CDT) Specimen Narrative Performed At FINAL REPORT [facility] CHEST, AP AND LATERAL. HISTORY: Follow-up infiltrate. COMPARISON: None available. Impression: In this patient with reported history of infiltrate, no prior examinations are available for compariso n. Mild left basilar/retrocardiac opacities noted whi ch may reflect atelectasis. An underlying airspace process cannot be entirely excluded on the basis of this examination. There is no e vidence for large focal consolidation, pneumothorax, or signific ant pleural effusion. The cardiomediastinal silhouette is with in normal limits. Cervical fusion hardware noted. No acute osseous abnormalities identified. Signed: Fabien Clark MD Report Verified Date/Time:12/22/2018 16:34:43 Reading Location: [facility] Radiology Readin g Room Procedure Note Interface, External Ris In - 12/22/2018 4:37 PM CDT FINAL REPORT CHEST, AP AND LATERAL. HISTORY: Follow-up infiltrate. COMPARISON: None available. Impression: In this patient with reported history of infiltrate, no prior examinations are available for compariso n. Mild left basilar/retrocardiac opacities noted whi ch may reflect atelectasis. An underlying airspace process cannot be entirely excluded on the basis of this examination. There is no e vidence for large focal consolidation, pneumothorax, or signific ant pleural effusion. The cardiomediastinal silhouette is with in normal limits. Cervical fusion hardware noted. No acute osseous abnormalities identified. Signed: Fabien Clark MD Report Verified Date/Time: 12/22/2018 1 6:34:43 Reading Location: [facility] Radiology Readin g Room Performing Organization Address City/State/Zipcode Phone Number [facility] CBC with platelet count + automated diff (12/22/2018 4:02 AM CDT) WBC 5.0 4.0 - 10.0 K/L [facility] RBC 4.13 4.00 - 5.00 M/L [facility] Hemoglobin 13.4 12.0 - 15.5 GM/DL [facility] Hematocrit 40.9 36.0 - 46.0 % [facility] MCV 99.0 82.0 - 99.0 fL [facility] MCH 32.4 27.0 - 33.0 pg [facility] MCHC 32.8 32.0 - 36.0 GM/DL [facility] RDW 13.0 12.0 - 15.0 % [facility] Platelets 285 150 - 430 K/CU MM [facility] MPV 8.9 6.0 - 11.5 fL [facility] nRBC 0 0 - 0 /100 WBC [facility] % Neutros 44 % [facility] % Lymphs 40 % [facility] % Monos 13 % [facility] % Eos 2 % [facility] % Baso 0 % [facility] # Neutros 2.19 1.80 - 8.00 K/L [facility] # Lymphs 2.00 1.48 - 4.50 K/L [facility] # Monos 0.65 0.00 - 1.30 K/L [facility] # Eos 0.12 0.00 - 0.50 K/L [facility] # Baso 0.02 0.00 - 0.20 K/L [facility] Immature Granulocytes-Relative 0 0 - 0 % S [facility] Specimen Blood Performing Organization Address City/State/Zipcode Phone Number [facility] [address] [phone] Basic Metabolic Panel (12/22/2018 4:02 AM CDT) Sodium 139 135 - 148 meq/L [facility] Potassium 4.2 3.6 - 5.5 meq/L [facility] Chloride 105 98 - 106 meq/L [facility] CO2 26 20 - 29 meq/L [facility] BUN 8 (L) 10 - 26 mg/dL [facility] Creatinine 0.76 0.50 - 1.20 mg/dL [facility] Glucose 106 70 - 110 mg/dL [facility] Calcium 8.8 8.5 - 10.5 mg/dL [facility] EGFR 77Comment: ESTIMATED GFR IS NOT mL/min/1.73 s q m [facility] ACCURATE CREATININE CLEARANCE IN PREDICTING GLOMERULAR FILTRATION RATE. ESTIMATED GFR IS NOT APPLICABLE FOR DIALYSIS PATIENTS. Specimen Blood Performing Organization Address City/State/Zipcode Phone Number [facility] [address] [place], [place] [phone] Blood Culture - Routine (Left Venipuncture) (12/21/2018 6:52 PM CDT)Only the most recent of2 resultswithin the time period is included. Result No growth in 5 days [facility] Specimen Blood Performing Organization Address [facility] Phone Number [facility] [address] [place], [place] [phone] after 10/15/2018 Insurance Payer Benefit Plan / Group Subscriber ID Type Phone A ddress MEDICARE MEDICARE A B xxxxxxxxxxx Medicare [place] MED[place] MED[place]ID [place] xxxxxxxxx
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
--- OUTSIDE RECORDS SUMMARY | 2019-10-16 18:48 | XMS REPORT | Summary of Care ---
:1955 Author Organization [facility] Address [address] [place] [address] Care Team Providers Name Role Phone Suzie Carrion MD Unavailable Unavailable Jessica Easton Primary Care Provider Reason for Visit Reason Comments Assessment Encounter Details Date Type Department Care Team Description 08/08/2019 Telephone [facility] Endocrinology- Rika Gutierrez MD Assessment [address] Professional Office [address] [place] [phone] Allergies Active Allergy Reactions Severity Noted Date Comments Ciprofloxacin Hives 01/07/2016 Codeine Other - See comments 01/07/2016 Slows h eart rate down Iodine Hives 01/07/2016 Levofloxacin Hives 01/07/2016 Morphine Hallucinations 01/07/2016 Nsaids (Non-Steroidal Other - See comments 01/07/2016 Patient states that Anti-Inflammatory Drug) its cause immune system issues documented as of this encounter (statuses as of 08/08/2019) Medications Medication Sig Dispensed Refills Start Date [...] Active mcg/actuation nasal each nostril spray daily. foLIC acid 1 mg tablet TAKE 1 TABLET BY 1 10/18/2018 Active MOUTH ONCE DAILY RESTASIS 0.05 % INSTILL 1 DROP 3 11/14/2018 Active ophthalmic drops INTO EACH EYE TWICE DAILY Docusate Sodium 100 mg Take 1 tablet by 0 Active tablet mouth. tofacitinib (XELJANZ Take 11 mg by 0 Active XR) 11 mg Tb24 mouth daily. linaGLIPtin Take 1 tablet by 90 tablet 3 04/04/2019 Active (TRADJENTA) 5 mg mouth daily. tabletIndications: Type 2 diabetes mellitus with complication, without long-term current use of insulin albuterol 90 Inhale 2 Puffs 8.5 g 11 06/01/2019 A ctive mcg/actuation every 6 (six) inhalerIndications: hours as needed Mild intermittent for Wheezing or asthma without Shortness of complication, Dyspnea Breath. on exertion levothyroxine 112 mcg Take 1 tablet by 120 tablet 1 08/08/2019 Active tabletIndications: mouth every Primary hypothyroidism morning. Take one tablet in morning on Tuesday thru Tuesday and 2 tablets on Tuesday documented as of this encounter (statuses as [...] Visit Obstetrics & Gynecology Uriah Shrestha MD [address] [place] [address] DR. Jensen [place], [place] [address] [phone] 12/12/2019 Office Visit Endocrinology Diabetes & GutierrezTyler MD Metabolism [address] [place] [address] 03/19/2020 Appointment Radiology Elizabeth NapolesnishantDO daniel [address] [place] [phone] 04/03/2020 Office Visit Pulmonary Disease Elizabeth NapolesnishantDO daniel [address] [place] [phone] Health Maintenance Due Date Last Done Comments [...] Results Not on filedocumented in this encounter Insurance Payer Benefit Plan / Subscriber ID Effective Dates Phone Addre ss Type Group MEDICARE MEDICARE PART xxxxxxxxxxx 2014-Prese [phone] [address] Medicare A & B nt 2 [id number] WEND[place] ERAZO [id number] [facility] MEDICAID OF xxxxxxxxx 2013-Prese [phone] [address] Medicaid [place] nt 0 [id number] [place] [address] documented as of this encounter
--- OUTSIDE RECORDS SUMMARY | 2019-10-16 18:48 | XMS REPORT ---
:1955 Author Organization [employer] Care Team Providers Name Role Phone Gus Easton Provider Role Unavailable Allergies No Known Allergies Problems Problem Type Condition Code Onset Dates Condition Statu s Problem Generalized abdominal pain R10.84 A ctive Problem Moderate persistent asthma without J45.40 Active complication Problem Spinal stenosis of lumbosacral M48.07 Active region Problem Degenerative disc disease, cervical M50.30 Active Problem Gastroesophageal reflux disease K21.9 Active Problem Fibromyalgia M79.7 Active Problem Migraine G43.909 Active Problem Cataract H26.9 Active Problem Diabetic neuropathy E11.40 Active Problem Ecchymosis R58 Active Problem Controlled type 2 diabetes mellitus E11.9 Active without complication, without long-term current use of insulin Problem Chronic obstructive pulmonary J44.9 Active disease, unspecified COPD type Problem Depression F32.9 Active Problem History of CVA with residual I69.30 Active deficit Problem Seasonal allergies J30.2 Active Problem Fatty liver disease, nonalcoholic K76.0 Active Problem Body mass index (BMI) 36.0-36.9, Z68.36 Active adult Problem Constipation, unspecified K59.00 Ac tive constipation type Problem COPD (chronic obstructive pulmonary J44.9 Active disease) Problem Asthma J45.909 Active Problem Morbid (severe) obesity due to E66.01 Active excess calories Problem Hypothyroidism E03.9 Active Problem 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 Ac tive Problem Depression with anxiety F41.8 Acti ve Problem 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 Act bao Problem Primary osteoarthritis of right hip M16.11 Active Problem 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.8 Acti ve Problem Osteoarthritis M19.90 Active Problem Diabetes E11.9 Active Problem Allergic rhinitis J30.9 Active Problem Mixed hyperlipidemia E78.2 Active Problem Acquired hypothyroidism E03.9 Acti ve 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
--- OUTSIDE RECORDS SUMMARY | 2019-10-16 18:48 | XMS REPORT ---
[...] Problem Degenerative disc disease, cervical M50.30 Active Assessment Body mass index (BMI) 36.0-36.9, Z68.36 Active adult Problem Gastroesophageal reflux disease K21.9 Active Assessment Morbid (severe) obesity due to E66.01 Active excess calories Problem Fibromyalgia M79.7 Active Assessment 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 Ac tive Problem Migraine G43.909 Active Problem Cataract H26.9 [...] J44.9 Active disease) Problem Asthma J45.909 Active Assessment 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 Act bao Problem Morbid (severe) obesity due to E66.01 Active excess calories Problem Hypothyroidism E03.9 Active Assessment Depression with anxiety F41.8 Acti ve Problem 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 Ac tive Assessment Chronic obstructive pulmonary J44.9 Active disease, unspecified COPD type Problem Depression with anxiety F41.8 Acti ve Assessment History of CVA (cerebrovascular Z86.73 Active accident) without residual deficits Problem 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 Act bao Assessment Fatty liver disease, nonalcoholic K76.0 Active Problem Primary osteoarthritis of right hip M16.11 Active Assessment Preoperative examination Z01.818 Act bao Problem 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.8 Acti ve Problem Osteoarthritis M19.90 Active Assessment Acquired hypothyroidism E03.9 Acti ve Problem Diabetes E11.9 Active Assessment Primary osteoarthritis of right hip M16.11 Active Problem Allergic rhinitis J30.9 Active Assessment Mixed hyperlipidemia E78.2 Active Problem Mixed hyperlipidemia E78.2 Active Assessment Controlled type 2 diabetes mellitus E11.9 Active without complication, without long-term current use of insulin Problem Acquired hypothyroidism E03.9 Acti ve 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 Problem Hyperlipidemia, mixed E78.2 Active Medications Medication Code Code Instructions Start End Status Dosage System Date Date Glucometer [facility] 83014736710 n/s n/s use as Active on e directed blood glucose NDC 0 n/s twice a Active one test strip day Albuterol [facility] 17650906686 108 (90 Base) Dec 29, Active 2 pu ffs as Sulfate HFA MCG/ACT 2019 needed Inhalation every 6 hrs Praluent ND 58450491177 75 MG/ML Active 1 ml Subcutaneous every 2 weeks Albuterol ND 67597111446 (5 MG/ML) 0.5% Active 1 m l as Sulfate Inhalation needed every 6 hrs Levothyroxine ND 19052485505 112 MCG Orally Active 1 tablet on Sodium Once a day an empty stomach in the morning Citalopram [facility] 10987188200 40MG Orally Active take one Hydrobromide Once a day tablet b y mouth once daily Lancets Super NDC 0 n/s finger Active one Thin stick twice a day True Metrix [facility] [id number] - Active USE 1 ST RIP Blood Glucose TO CHECK Test GLUCOSE TWICE DAILY Alcohol Prep NDC 0 Active as directed Pads Tradjenta ND 75286390955 5 MG Orally Active 1 tabl et Once a day Folic Acid ND 08438117490 1 MG Oral Active TAKE 1 TABLET BY MOUTH ONCE DAILY Results No Known Results Summary Purpose eClinicalWorks Submission
--- OUTSIDE RECORDS SUMMARY | 2019-10-16 18:48 | XMS REPORT | Continuity of Care Document ---
:1955 Author Organization [facility] t Address [address] [place] [address] Care Team Providers Name Role Phone Gus Easton Primary Care Physician Matt GARAY Attending Clinician Fadia Attending Clinician Radiology Attending Clinician Unavailable Therapist, Respiratory Attending Clinician Unavailable Doctor Unassigned, Name Attending Clinician Unavailable Jessica Easton Attending Clinician Yesika ALEJANDRE Attending Clinician Devan GARAY Attending Clinician GEN ROWLEY Attending Clinician Unavailable Yazan ALEJANDRE Attending Clinician Fadia Admitting Clinician GEN ROWLEY Admitting Clinician Unavailable Payers Payer Name Policy Policy Number Effective Expiration Source Type Date Date MEDICAREMEDICARE PART xxxxxxxxxxx 2014 Eduin Jay AND 00:00:00 [facility] Evmuuvttfiwv45/05/2013 -PresentCONCORDANNALISEMedicare MEDICAIDMEDICAIDxxxxx xxxxxxxxx 2015 Venancio dejesus [id number] 00:00:00 Met deluca Medicaid Problems Condition Condition Condition Status Onset Resolution Last Treating Co mments Source Name Details Category Date Date Treatment Clinician Date Other Condition Active 2016-052019-08-08 [facility] B specified 2-12 22:43:09 Healt h hypothyroi Other 00:00: dism specified 00 hypothyroi dism Active 04/26/2017 08/08/2019 [facility] Health NAOMI Condition Active 2016-052019-08-08 [facility] B (obstructi 2- 22:43:09 Heal th ve sleep NAOMI 00:00: apnea) (obstructi 00 ve sleep apnea) Active 04/26/2017 08/08/2019 [facility] Health Prediabete Condition Active 2015-052019-08-08 [facility] s 0-04 22:43:09 Health 00:00: Prediabete 00 s Active 02/17/2016 08/08/2019 [facility] Health Low IGF-1 Condition Active 2019-08-08 [facility] level 9-06 22:43:09 Health Low 00:00: IGF-1 00 level Active 01/20/2016 08/08/2019 [facility] Health History of History of Problem Active [facility] CVA with CVA with [facility] - residual residual Memori a deficit deficit l Outpati ent Clinics Fatty Fatty Problem Active [facility] liver liver [facility] - disease, disease, Memori a nonalcohol nonalcohol l ic ic Outpati ent Clinics Hyperlipid Hyperlipid Problem Active [facility] emia, emia, [facility] - mixed mixed Memoria l Outpati ent Clinics Generalize Generalize Problem Active [facility] d [facility] - abdominal abdominal Jaylan elvin pain pain l Outpati ent Clinics Diabetes Diabetes Problem [facility] Moderate Moderate Problem Active [facility] persistent persistent Chloé kes - asthma asthma Memoria without without l complicati complicati Ou tpati on on ent Clinics Benign Benign Problem Active [facility] neoplasm neoplasm [facility] - of lip of lip Memoria l Outpati ent Clinics Gastroesop Gastroesop Problem Active [facility] hageal hageal [facility]ukes - reflux reflux Memoria disease disease l Outpati ent Clinics Spinal Spinal Problem Active [facility] stenosis stenosis [facility] - of of Memoria lumbosacra lumbosacra l l region l region Outpat i ent Clinics Vitamin B Vitamin B Problem Active [facility] 12 12 [facility] - deficiency deficiency Me moria l Outpati ent Clinics Degenerati Degenerati Problem Active [facility] ve disc ve disc [facility] - disease, disease, Memori a cervical cervical l Outpati ent Clinics COPD COPD Problem Active [facility] (chronic (chronic [facility] - obstructiv obstructiv Me moria e e l pulmonary pulmonary Outp ati disease) disease) ent Clinics Cataract Cataract Problem [facility]ics Migraine Migraine Problem [facility] Fibromyalg Fibromyalg Problem Active [facility] ia ia [facility] Osteoarthr Osteoarthr Problem Active [facility] itis itis [facility]i ent Clinics Acquired Acquired Problem Active [facility] hypothyroi hypothyroi [place] - dism dism Memoria l Outpati ent Clinics Depression Depression Problem Active [facility] Diabetic Diabetic Problem Active [facility] neuropathy neuropathy [place] kes - Memoria l Outpati ent Clinics Ecchymosis Ecchymosis Problem Active [facility] Allergic Allergic Problem Active [facility] rhinitis rhinitis [facility] Asthma Asthma Problem Active [facility] Seasonal Seasonal Problem Active [facility] allergies allergies Luke [facility] - Memoria l Outpati ent Clinics Growth Growth Problem Active [facility] hormone hormone [facility] - deficiency deficiency Me moria l Outpati ent Clinics Depression Depression Problem Active [facility] with with [facility] - anxiety anxiety Memoria l Outpati ent Clinics Primary Primary Problem Active [facility] osteoarthr osteoarthr [place]é kes - itis of itis of Memoria right hip right hip l Outpati ent Clinics Arthritis Arthritis Problem Active [facility] with with [facility] - psoriasis psoriasis Jaylan elvin l Outpati ent Clinics Constipati Constipati Problem Active [facility] on, on, [facility] - unspecifie unspecifie Me moria d d l constipati constipati Ou tpati on type on type ent Clinics Body mass Body mass Problem Active [facility] index index [facility] - (BMI) (BMI) Memoria 36.0-36.9, 36.0-36.9, l adult adult Outpati ent Clinics Morbid Morbid Problem Active [facility] (severe) (severe) Lukes - obesity obesity Memoria due to due to l excess excess Outpati calories calories ent Clinics Medicare Medicare Diagnosis Active [facility] annual annual [facility] - wellness wellness Memori a visit, visit, l subsequent subsequent Ou tpati ent Clinics Asymptomat Asymptomat Diagnosis Active [facility] ic ic [facility] - menopausal menopausal Me moria state state l Outpati ent Clinics Encounter Encounter Diagnosis Active [facility] for for [facility] - screening screening Jaylan elivn mammogram mammogram l for for Outpati malignant malignant ent neoplasm neoplasm Clinic s of breast of breast Type 2 Diagnosis Active 2019-08-08 [facility] diabetes 22:43:09 Health mellitus Type 2 with diabetes complicati mellitus on, with without complicati long-term on, current without use of long-term insulin current use of insulin Active 0 [facility] Health Growth Diagnosis Active 2019-08-08 [facility] hormone 22:43:09 Health deficiency Growth hormone deficiency Active 08/08/2019 [facility] Health Dyslipidem Diagnosis Active 2019-08-08 [facility] ia 22:43:09 Health Dyslipidem ia Active 08/08/2019 [facility] Health Osteopenia Diagnosis Active 2019-08-08 [facility] of left 22:43:09 Health hip Osteopenia of left hip Active 0 [facility] Health Snapping Diagnosis Active 2019-06-01 [facility] hip, right 08:06:13 Heal th Snapping hip, right Active 06/01/2019 [facility] Health Abnormal Diagnosis Active 2019-01-30 [facility] CXR 18:15:58 Health Abnormal CXR Active 9 [facility] Health Hoarseness Diagnosis Active 2019-01-05 [facility] 23:01:08 Health Hoarseness Active 01/05/2019 [facility] Health Neck pain Diagnosis Active 2019-01-05 [facility] on right 23:01:08 Health side Neck pain on right side Active 01/05/2019 [facility] Health History of Diagnosis Active 2019-01-05 [facility] Christine 23:01:08 Health fundoplica History tion of Christine fundoplica tion Active 9 [facility] Health Shortness Diagnosis Active 2019-01-05 [facility] of breath 23:01:08 Healt h Shortness of breath Active 9 [facility] Health Allergies, Adverse Reactions, Alerts Allergy Allergy Status Severity Reaction(s) Onset Inactive Treating Comm ents Source Name Type Date Date Clinician Ciproflo Propensi Active [place] ty to 12-21 Methodi adverse 00:00: st reaction 00 s to drug Codeine Propensi Active [place] ty to 12-21 Methodi adverse 00:00: st reaction 00 s to drug Iodine Propensi Active [place] ty to 12-21 Methodi adverse 00:00: st reaction 00 s to drug Levoflox Propensi Active [place] acin ty to 12-21 Methodi adverse 00:00: st reaction 00 s to drug Morphine Propensi Active [place] ty to 12-21 Methodi adverse 00:00: st reaction 00 s to drug Nsaids Propensi Active Other (See Lethargic [place] (Non-[place] ty to Comments) 12-21 , flu Metho di roidal adverse 00:00: like st Anti-Inf reaction 00 syptoms lammator s to y Drug) drug Nabumeto Propensi Active [place] ty to 12-21 Methodi adverse 00:00: st reaction 00 s to drug Ciproflo Ciproflo Active Hives Memori a xacin xacin 8-24 l 00:00: [facility] Codeine Codeine Active Other - See Mem oria comments 8-24 l 00:00: [facility] Iodine Iodine Active Hives Memoria 8-24 l 00:00: [facility] Levoflox Levoflox Active Hives Memori a acin acin 824 l 00:00: [facility] Morphine Morphine Active Hallucinatio Memoria ns 8-24 l 00:00: [facility] Nsaids Nsaids Active Other - See Memor ia (Non-Alexsander (Non-Alexsander comments 8-24 l roidal roidal 00:00: [place] Anti-Inf Anti-Inf [facility] [place] [address] [facility] y Drug) y Drug) Hospita l NSAIDS Adverse Active Info Not [facility] Reaction Available [facility] MORPHINE Adverse Active Info Not [facility] Reaction Available [facility] Iodine Adverse Active Info Not [facility] Reaction Available [facility] Social History Social Habit Start Date Stop Date Quantity Comments Source Sex Assigned At Lorenzo M ethodist Social History 2019-08-03 2019-08-03 [facility] 04:59:59 04:59:59 [facility] ital Smoking Status Start Date Stop Date Source Tobacco smoking status NHIS Jaylan bee [facility] Medications Ordered Filled Start Stop Current Ordering Indication Dosage Frequency Signature Comments Components Source Medication Medication Date Date Medication? Clinician (SIG) Name Name citalopram 2020-0 Yes Take 40 mg [facility] (CELEXA) 20 3-25 by mouth Heal th mg tablet 22:43: daily. 09 alirocumab 2019-0 Yes inject [facility] (PRALUENT 3-25 under the Healt h PEN) 75 22:43: skin. mg/mL PnIj aspirin 81 2019-0 Yes Take 81 mg [facility] mg chewable 3-25 by mouth Heal th tablet 22:43: daily. 09 Cholecalcif 2019-0 Yes Take by [facility] mirian, 3-25 mouth. Health Vitamin D3, 22:43: (VITAMIN 09 D3) 2,000 unit tablet LORATADINE 2019-0 Yes Take by [facility] (CLARITIN 3-25 mouth. Health ORAL) 22:43: 09 Docusate 2019-0 Yes Take 1 [facility] Sodium 100 3-25 tablet by Heal th mg tablet 22:43: mouth. 09 tofacitinib 2019-0 Yes Take 11 mg [facility] (XELJANZ 3-25 by mouth Health XR) 11 mg 22:43: daily. Tb24 09 levothyroxi 2019-0 Yes Take 1 [facility] ne 112 mcg 3-25 tablet by Heal th tablet 00:00: mouth 00 every morning. Take one tablet in morning on Tuesday thru Tuesday and 2 tablets on Tuesday Smoothie 2019-0 No 450 mL, [facility] Readi-Cat 2 3-19 Susp, 18:00: Oral, 00 Once, first dose 08/02/19 13:00:00 CDT, stop date 08/02/19 13:00:00 CDT, Out-Patien t Saline Lock 2019-0 No 10 mL, [facility] Flush 3-19 Soln, IV 17:59: Push, As 00 Indicated PRN for flush, first dose 08/02/19 12:59:00 CDT albuterol 2019-0 Yes Inhale 2 [facility] 90 1-17 Puffs Health mcg/actuati 00:00: every 6 on inhaler 00 (six) hours as needed for Wheezing or Shortness of Breath. linaGLIPtin 2018-05 No Take 1 [facility] (TRADJENTA) 1-20 tablet by [facility] 5 mg tablet 00:00: mouth 00 daily. Albuterol Albuterol Yes Gus [address] Sulfate HFA Sulfate HFA 8-16 [place] needed [facility] - 00:00: Memoria 00 l Outpati ent Clinics SHONDA, UJHI, Yes ADMINISTER [facility] 20 mg/0.4 8-12 0.4 ML (20 Heal th mL AtIn 00:00: MG) 00 SUBCUTANEO USLY WEEKLY FOR ARTHRITIS ondansetron Yes DISSOLVE 1 [facility] 4 mg 8-10 TABLET IN Health disintegrat 00:00: MOUTH ing tablet 00 EVERY 8 HOURS NEEDED FOR NAUSEA FOR UP TO 7 DAYS RESTASIS Yes INSTILL 1 [facility] 0.05 % 7-02 DROP INTO Health ophthalmic 00:00: EACH EYE drops 00 TWICE DAILY foLIC acid Yes TAKE 1 [facility] 1 mg tablet 6-05 TABLET BY [facility] 00:00: MOUTH ONCE 00 DAILY levothyroxi No Take 1 [facility] ne 112 mcg 4-16 tablet by Heal th tablet 00:00: mouth 00 every morning. methotrexat Yes [facility] e 2.5 mg 4-10 Health tablet 00:00: 00 predniSONE 2018- Yes [facility] 5 mg tablet 4-10 Health 00:00: 00 linagliptin 2017-05 Yes Take 1 [facility] (TRADJENTA) 0-16 tablet by [facility] 5 mg tablet 00:00: mouth 00 daily. fluticasone Yes Use 2 [facility] 50 8-16 Sprays in Health mcg/actuati 00:00: each on nasal 00 nostril spray daily. albuterol Yes Inhale 2 [facility] 90 8-16 Puffs Health mcg/actuati 00:00: every 6 on inhaler 00 (six) hours as needed for Wheezing or Shortness of Breath. Praluent Praluent Yes Gus INJECT [address] [place] ML [facility] - SUBCUTANEO Memoria USLY l EVERY TWO Outpati WEEKS ent Clinics Alcohol Alcohol Yes Gus as [facility] Prep Pads Prep Pads [place] directed [facility] - [facility]oria l [facility] ent Clinics True Metrix True Metrix Yes Gus USE [address] [facility] Blood Blood [place] STRIP TO [facility] - Glucose Glucose CHECK Memoria Test Test GLUCOSE l TWICE [facility] DA[facility] ent Clinics Lancets Lancets Yes Gus one [facility] Super Thin Super Thin [place] kes - Memoria l [facility] ent Clinics Levothyroxi Levothyroxi Yes Gsu [address] ne Sodium ne Sodium [place] on an Alana es - empty Memoria stomach in l the [facility] morning ent Clinics Citalopram Citalopram Yes Gus take one [facility] Hydrobromid Hydrobromid [place] tablet by [facility]ukes - e e mouth once Memoria daily l [facility] ent Clinics Glucometer Glucometer Yes Gus one [facility] [place] [facility] ent Clinics Albuterol Albuterol Yes Gus [address] [facility] Sulfate Sulfate [place] needed [facility] - [facility]oria l [facility] ent Clinics Tradjenta Tradjenta Yes Gus [address] [place] [facility] - [facility] l [facility] ent Clinics Folic Acid Folic Acid Yes Gus TAKE [address] [facility] [facility] [place] TABLET BY Lukes - MOUTH ONCE Memoria DAILY l [facility] ent Clinics blood blood Yes Gus one [facility] glucose glucose [place] [facility]ukes - test strip test strip Mem oria l [facility] ent Clinics Vital Signs Vital Name Observation Time Observation Value Comments Source Systolic (mm Hg) 2019-01-05 18:28:00 [facility] Health Diastolic (mm Hg) 2019-01-05 18:28:00 [facility] Heart Rate 2019-01-05 18:28:00 [facility] Temperature Oral (F) 2019-01-05 18:28:00 36.72 Tahmina [facility] Health Height 2019-01-05 18:28:00 157.5 cm [facility] Weight 2019-01-05 18:28:00 [facility] Systolic (mm Hg) 2019-01-04 18:47:00 [facility] Health Diastolic (mm Hg) 2019-01-04 18:47:00 [facility] Heart Rate 2019-01-04 18:47:00 [facility] Respitory Rate 2019-01-04 18:47:00 [facility] Height 2019-01-04 18:47:00 157.5 cm [facility] Weight 2019-01-04 18:47:00 [facility] Systolic blood 2018-12-21 14:31:00 126 mm[Hg] Manjeetto n [facility] pressure Diastolic blood 2018-12-21 14:31:00 58 mm[Hg] Manjeett on [facility] pressure Heart rate 2018-12-21 14:31:00 77 /min Bj Stovall Body temperature 2018-12-21 14:31:00 36.56 Tahmina [place] [facility] Respiratory rate 2018-12-21 14:31:00 18 /min [place] [facility] Oxygen saturation in 2018-12-21 14:31:00 94 /min Bj Stovall Arterial blood by Pulse oximetry Body height 2018-12-21 12:06:00 157.5 cm Bj St[facility] Procedures Procedure Date / Time Performing Clinician Source Performed MR HIP RIGHT WO CONTRAST 2019-06-01 00:48:59 Requisition, Paper [facility] NO SHOW OR MISSED 2019-01-30 22:15:22 Doctor Unassigned, No [facility] APPOINTMENT POLICY Name ACKNOWLEDGEMENT PATIENT QUESTIONNAIRE 2019-01-05 10:01:00 Doctor Unassigned, No [facility] Name FLEXIBLE SCOPE ENT 2019-01-05 00:00:00 Noah Jacome [facility] betty [facility] CT ABDOMEN WO CONTRAST 2018-12-21 14:30:16 Edie Hand on [facility] COMPLETE BLD COUNT 2018-12-21 12:20:00 Edie Hand [facility] W/AUTO DIFF COMPREHENSIVE METABOLIC 2018-12-21 12:20:00 Edie Hand [facility] PANEL ESTIMATED GFR 2018-12-21 12:20:00 Edie Hand Meth odist URINALYSIS 2018-12-21 12:15:00 Edie Hand Meth odist Plan of Care Planned Activity Planned Date Details Comments Source Future Scheduled 2019-12-15 INFLUENZA VACCINE Steph n [facility] Test 00:00:00 [code = INFLUENZA VACCINE] Future Scheduled 2006 BREAST CANCER Lorenzo Me thodist Test 00:00:00 SCREENING [code = BREAST CANCER SCREENING] Future Scheduled 2006 COLONOSCOPY SCREENING [facility] Test 00:00:00 [code = COLONOSCOPY SCREENING] Future Scheduled 2006 SHINGLES VACCINES (#1) [place] [facility] Test 00:00:00 [code = SHINGLES VACCINES (#1)] Future Scheduled 1977 Screening for Lorenzo Me thodist Test 00:00:00 malignant neoplasm of cervix (procedure) [code = 128764733] Future Scheduled 1966 DIABETIC FOOT EXAM [place] [facility] Test 00:00:00 [code = DIABETIC FOOT EXAM] Future Scheduled 1966 URINE MICROALBUMIN [place] [facility] Test 00:00:00 [code = URINE MICROALBUMIN] Future Scheduled 1956 DIABETIC RETINAL EYE Venancio ston [facility] Test 00:00:00 EXAM [code = DIABETIC RETINAL EYE EXAM] Future Scheduled Diabetic foot [facility] Test examination [facility] (regime/therapy) [code = 217163979] Future Scheduled Plan of Care [code = Mem orial [place] Test 14473-3] [facility] Future Scheduled Hemoglobin A1c [facility] [place] Test measurement [facility] (procedure) [code = 23205049] Future Scheduled Examination of retina Me morial [place] Test (procedure) [code = [facility] 622825795] Future Scheduled Plan of Care [code = Mem orial [place] Test 33106-7] [facility] Future Scheduled Plan of Care [code = Mem orial [place] Test 92231-3] [facility] Future Scheduled Screening for [facility] ermann Test malignant neoplasm of [facility] colon (procedure) [code = 595587862] Future Scheduled Creatinine measurement M emorial [place] Test (procedure) [code = [facility] 15209625] Future Scheduled Hepatitis C screening Me morial [place] Test (procedure) [code = [facility] 750538361] Future Scheduled Calculated low density [facility] [place] Test lipoprotein [facility] cholesterol level (procedure) [code = 090890044] Future Scheduled Microalbumin Memorial rmann Test measurement, urine, [facility] quantitative (procedure) [code = 501966713] Future Scheduled Plan of Care [code = Mem orial [place] Test 20046-2] [facility] Future Scheduled Plan of Care [code = Mem orial [place] Test 43758-2] [facility] Future Scheduled Plan of Care [code = Mem orial [place] Test 49759-7] [facility] Future Scheduled THYROID STIMULATING Jaylan rial [place] Test HORMONE [code = [facility] spital 05365-3] Future Scheduled T4 FREE [code = [facility] [place] Test 3024-7] [facility] Future Scheduled FREE T3 [code = 58240] M emorial [place] Test [facility] Future Scheduled C-PEPTIDE, SERUM OR Jaylan rial [place] Test PLASMA [code = 1986-9] [facility] Future Scheduled GLUCOSE FASTING [code Me morial [place] Test = 2367] [facility] Future Scheduled Screening for [facility] ermann Test malignant neoplasm of [facility] breast (procedure) [code = 457510505] Future Scheduled Plan of Care [code = Mem orial [place] Test 67268-0] [facility] Future Scheduled Plan of Care [code = Mem orial [place] Test 01778-3] [facility] Future Scheduled Plan of Care [code = Mem orial [place] Test 85779-5] [facility] Future Scheduled Plan of Care [code = Mem orial [place] Test 96297-4] [facility] Future Scheduled Hemoglobin A1c [facility] [place] Test measurement [facility] (procedure) [code = 33110355] Future Scheduled Plan of Care [code = Mem orial [place] Test 57816-5] [facility] Future Scheduled Plan of Care [code = Mem orial [place] Test 15618-1] [facility] Future Scheduled Plan of Care [code = Mem orial [place] Test 69033-3] [facility] Future Scheduled Plan of Care [code = Mem orial [place] Test 57455-0] [facility] Future Scheduled Plan of Care [code = Mem orial [place] Test 32898-6] [facility] Future Scheduled Plan of Care [code = Mem orial [place] Test 74270-9] [facility] Future Scheduled Plan of Care [code = Mem orial [place] Test 35680-7] [facility] Future Scheduled Plan of Care [code = Mem orial [place] Test 27430-0] [facility] Future Scheduled DIAGNOSTIC PROCEDURE Mem orial [place] Test Preferred Location: [facility] ADC PFT Lab-Main [code = 4132] Future Scheduled EKG-12 LEAD ROUTINE Jaylan rial [place] Test [code = 4135] [facility] Future Scheduled Plan of Care [code = Mem orial [place] Test 03065-6] [facility] Future Scheduled Plan of Care [code = Mem orial [place] Test 97421-8] [facility] kaiden Future Scheduled Plan of Care [code = Mem orial [place] Test 58754-0] [facility] Hospi kaiden Future Scheduled Plan of Care [code = Mem orial [place] Test 58328-4] [facility] Hospi kaiden Future Scheduled Plan of Care [code = Mem orial [place] Test 99122-5] [facility] Hospi kaiden Future Scheduled Plan of Care [code = Mem orial [place] Test 99103-9] [facility] Hos[facility] kaiden Future Scheduled Plan of Care [code = Mem orial [place] Test 77500-2] [facility] Hospi kaiden Future Scheduled Plan of Care [code = Mem orial [place] Test 85710-5] [facility] Hospi kaiden Future Scheduled Plan of Care [code = Mem orial [place] Test 24216-0] [facility] Encounters Start End Encounter Admission Attending Care Care Encounter Source Date/Time Date/Time Type Type Clinicians Facility Department ID 2019-09-03 Outpatient [id number] 10:11:05 2019-10-05 2019-10-05 [facility] [id number] 09:00:00 09:00:00 [facility] Family Medicine l Medicine Outpati ent Clinics 2019-10-05 2019-10-05 [facility] [id number] 09:00:00 09:00:00 [facility] Family Medicine l Medicine Outpati ent Clinics 2019-08-23 2019-08-23 [facility] [id number] 11:24:00 11:24:00 [facility] Family Medicine l Medicine Outpati ent Clinics 2019-08-08 2019-08-08 Telemedici MHIEALT [facility] [id number] [facility] 13:06:51 18:26:07 ne Visit Arthur lagunas Mccormick 2019-08-08 2019-08-08 Telemedici Matt [facility] [id number] 08:06:51 13:26:07 ne Visit [facility] [id number] [place] [id number] Professio [phone] [address] 2019-08-08 2019-08-08 Telemedici GutierrezRUST [id number] 08:06:51 13:26:07 [facility] [id number] [place] [id number] Professio [phone] [address] 2019-08-08 2019-08-08 Telephone IECount includes the [facility] [id number] [facility] 00:00:00 00:00:00 [facility]-08-08 2019-08-08 Telephone [facility] [id number] 00:00:00 00:00:00 [facility] [id number] [place] [id number] Professio [phone] [address] 2019-08-08 2019-08-08 Telephone Gutierrez[facility]UST [id number] 00:00:00 00:00:00 [facility] 350.1.13.10 [place] 4.2.7.2.686 Professio [phone] [address] 2019-08-02 2019-08-03 Outpatient [facility] [id number] [facility] 16:29:11 04:59:59 [facility] 2019-08-02 2019-08-02 Outpatient IEALT [facility] [id number] Surgica 11:29:11 23:59:59 l [facility] 2019-08-02 2019-08-02 Outpatient Fadia, [id number] 11:29:11 23:59:59 Charles 8 2019-08-01 2019-08-01 [facility] [id number] 09:45:00 09:45:00 Glass[facility] Family Medicine Medicine Outpati ent Clinics 2019-05-31 2019-06-01 [facility] MHIEALT [facility] [id number] [facility] 16:49:00 05:59:00 [facility] 2019-05-31 2019-05-31 [facility] Radiology [facility] 1.2.840.114 [id number] 10:49:00 23:59:00 Encounter SPECIALTY 350.1.13.10 CARE 4.2.7.2.686 CENTER AT [id number] STEVE KWON 2019-05-31 2019-05-31 [facility] Radiology [facility] 1.2.840.114 [id number] 10:49:00 23:59:00 Encounter SPECIALTY 350.1.13.10 CARE 4.2.7.2.686 CENTER AT [id number] STEVE Garcia [facility] 2019-05-07 2019-05-07 [facility] [id number] 09:35:00 09:35:00 t [employer]osense [employer] [facility] 2019-03-30 2019-03-30 [facility] [id number] 09:45:00 09:45:00 Endosense [facility] ent [facility] 2019-01-30 2019-01-30 [employer]ing [employer] MHIEALT [facility] [id number] [facility] 17:14:53 18:44:53 Visit Meeta [facility] 2019-01-30 2019-01-30 Forming Mill Operator Therapist, [facility] 1.2.840.114 [id number] 12:14:53 13:44:53 Visit Fred Tim 350.1.13.10 Respiratory [place] 4.2.7.2.[address] [id number] [id number] 2019-01-30 2019-01-30 Forming Mill Operator Therapist, [facility] 1.2.840.114 [id number] 12:14:53 13:44:53 Visit Fred Tim 350.1.13.10 Respiratory [place] 4.2.7.2.686 [place] [address] [id number] 083 2019-01-30 2019-01-30 Orders SHANTELL [facility] [id number] U TMB 00:00:00 00:00:00 Only [facility] 2019-01-30 2019-01-30 Orders Doctor ROBERTS 1.2.840.114 [id number] 00:00:00 00:00:00 Only Unassigned, REJI 350.1.13.10 [place] [facility] 4.2.7.2.686 [id number] 009 2019-01-30 2019-01-30 Orders Doctor ARMANDO 1.2.840.114 [id number] 00:00:00 00:00:00 Only Unassigned, REJI 350.1.13.10 [place] [facility] 4.2.7.2.686 [id number] 009 2019-01-29 2019-01-29 Telephone IEKYT [facility] [id number] [facility] 00:00:00 00:00:00 [facility] 2019-01-29 2019-01-29 Telephone EastonHeather berrios [id number] 00:00:00 00:00:00 Gus M Basilio 350.1.13.10 [place] 4.2.7.2.686 [id number] 086 2019-01-29 2019-01-29 Telephone Sarkis Eastondaniel 1.2.685.105 [id number] 00:00:00 00:00:00 Gus M Basilio 350.1.13.10 [place] 4.2.7.2.686 [id number] 086 2019-01-18 2019-01-18 [facility] [id number] 08:39:00 08:39:00 [facility] Medicine Medicine [facility] Clinics 2019-01-18 2019-01-18 Telephone IEKYT [facility] [id number] [facility] 00:00:00 00:00:00 [facility] 2019-01-18 2019-01-18 Telephone Yesika NCJUAN [id number] 00:00:00 00:00:00 Shiwan Mccormick 350.1.13.10 [place] 4.2.7.2.686 Professio [id number] [address] 2019-01-18 2019-01-18 Telephone Yesika NCJUAN [id number] 00:00:00 00:00:00 Shiwan Mccormick 350.1.13.10 [place] 4.2.7.2.686 Professio [id number] [address] 2019-01-18 2019-01-18 Telephone NapolesRUST 1.2.325.992 [id number] 00:00:00 00:00:00 Leonid Tim 350.1.13.10 Rad 4.2.7.2.686 Isidra [id number] [address] 2019-01-17 2019-01-17 Outpatient Janie Magallon [id number] 09:33:00 09:33:00 Glass[facility] Medicine Outpati ent Clinics 2019-01-05 2019-01-05 Office [facility] [id number] [facility] 18:04:44 19:46:04 Visit [facility] 2019-01-05 2019-01-05 [facility] 1.2.840.114 [id number] 13:04:44 14:46:04 [facility] 350.1.13.10 Cancer 4.2.7.2.[address] [facility] [id number] [place] [address] 2019-01-05 2019-01-05 [facility] 1.2.840.114 [id number] 13:04:44 14:46:04 Visit [facility] 350.1.13.10 Cancer 4.2.7.2.[address] [facility] [id number] [place] [address] 2019-01-05 2019-01-05 Office [facility] 1.2.840.114 [id number] 13:04:44 14:46:04 Visit [facility] 350.1.13.10 Cancer 4.2.7.2.[address] [facility] [id number] [place] [address] 2019-01-05 2019-01-05 [facility] [id number] 00:00:00 00:00:00 Only Health 2019-01-05 2019-01-05 Orders Doctor ARMANDO 1.2.840.114 [id number] 00:00:00 00:00:00 Only Unassigned, REJI 350.1.13.10 [place] [facility] 4.2.7.2.686 [id number] 009 2019-01-04 2019-01-04 Office [facility] [id number] [facility] 17:51:19 18:21:19 Visit [facility] 2019-01-04 2019-01-04 Office Yesika [facility] 1.2.840.114 [id number] 12:51:19 13:21:19 Visit Leonid Tim 350.1.13.10 [place] 4.2.7.2.686 Professio [id number] [address] 2019-01-04 2019-01-04 Office Yesika [facility] 1.2.840.114 [id number] 12:51:19 13:21:19 Visit Leonid Tim 350.1.13.10 [place] 4.2.7.2.686 Professio [id number] [address] 2019-01-04 2019-01-04 Office Yesika [facility] 1.2.840.114 [id number] 12:51:19 13:21:19 Visit Leonid Tim 350.1.13.10 [place] 4.2.7.2.686 Professio [id number] [address] 2019-01-04 2019-01-04 Office Yesika [facility] 1.2.840.114 [id number] 12:51:19 13:21:19 Visit Leonid Tim 350.1.13.10 [place] 4.2.7.2.686 Professio [id number] [address] 2018-12-29 2018-12-29 [facility] [id number] 13:30:00 13:30:00 t Glassmap Luke s - Drive [facility] Medicine [facility] Clinics 2018-12-29 2018-12-29 [facility] [id number] 09:30:00 09:30:00 t [place] [employer] Luke s - Drive [facility] Family Medicine l Medicine Outpati ent Clinics 2018-12-19 2018-12-19 [facility] [id number] 08:15:00 08:15:00 t [place] [employer]etted Net s - Drive [facility] Medicine l Medicine [facility] Clinics 2018-11-28 2018-11-28 [facility] [id number] 09:15:00 09:15:00 t [place] [employer]etted Net s - Drive [facility] ent Clinics 2018-08-18 2018-08-18 [facility] [id number] 09:45:00 09:45:00 t [employer] [facility] ent Clinics 2018-07-31 2018-07-31 [facility] [id number] 11:22:00 11:22:00 [facility] Clinics 2018-07-26 2018-07-26 [facility] [id number] 08:15:00 08:15:00 t [employer] [facility] ent Clinics 2018-07-19 2018-07-19 [facility] [id number] 09:52:00 09:52:00 t [employer] [facility] ent Clinics 2018-07-17 2018-07-17 [facility] [id number] 09:30:00 09:30:00 t [place] [employer] [facility] ent Clinics 2018-07-14 2018-07-14 [facility] [id number] 10:49:00 10:49:00 t [facility] Clinics 2018-07-11 2018-07-11 [facility] [id number] 14:30:00 14:30:00 t [facility] ent Clinics 2018-07-05 2018-07-05 [facility] [id number] 20:40:00 20:40:00 t [facility] Clinics 2018-07-05 2018-07-05 [facility] [id number] 10:02:00 10:02:00 t [facility] ent Clinics 2018-07-04 2018-07-04 [facility] [id number] 08:00:00 08:00:00 t [facility] ent Clinics 2018-06-26 2018-06-26 [facility] [id number] 11:30:00 11:30:00 t Naranjito [employer] s - [employer] [facility] Clinics 2018-06-22 2018-06-22 [facility] [id number] 11:03:00 11:03:00 t Naranjito [employer] s - [employer] [facility] Clinics 2018-06-13 2018-06-13 [facility] [id number] 13:15:00 13:15:00 t Naranjito [employer] s - [employer] [facility] Clinics 2018-02-09 2018-02-09 [facility] [id number] 10:03:00 10:03:00 t Naranjito [employer] s - [employer] [facility] Clinics 2018-02-07 2018-02-07 [facility] [id number] 09:00:00 09:00:00 t [place]aran[place] [employer] s - [employer] [facility] Clinics 2017-12-23 2017-12-23 [facility] [id number] 10:00:00 10:00:00 t [place] [employer] s - [employer] [facility] Clinics 2017-09-20 2017-09-20 [facility] [id number] 09:00:00 09:00:00 t [employer] [facility] Clinics Results Test Description Test Time Test Comments Results Result Comments Source BLOOD CULTURE 2018-12-26 22:00:00 Test Item Value Reference Range Interpretation Comme nts CULTURE (BEAKER) (test code = 1095) No growth in 5 days BLOOD [id number] 22:00:00 Test Item Value Reference Range Interpretation Comments CULTURE (BEAKER) (test No growth in 5 days code = 1095) POCT-GLUCOSE [id number] 12:00:00 Test Item Value Reference Range Interpretation Comments POC-GLUCOSE METER 90 mg/dL 70-110 TESTED AT [address] ([facility]) (test code = [address] [facility] [place] 1538) [id number] POCT-GLUCOSE [id number] 08:25:00 Test Item Value Reference Range Interpretation Comments POC-GLUCOSE METER 103 mg/dL 70-110 TESTED AT [address]) (test code [address] [facility] [place] = 1538) [address] POCT-GLUCOSE [id number] 20:14:00 Test Item Value Reference Range Interpretation Comments POC-GLUCOSE METER 135 mg/dL 70-110 H TESTED AT [address]) (test code [address] [facility] [place] = 1538) [address] POCT-GLUCOSE [id number] 20:13:00 Test Item Value Reference Range Interpretation Comments POC-GLUCOSE METER 101 mg/dL 70-110 TESTED AT [address]) (test code [address] [facility] [place] = 1538) [address] RAD, CHEST, 2 [id number] 16:34:00Reason for exam:->f/u infiltrateFINAL REPORT CHEST, AP AND LATERAL. HISTORY: Follow-up infiltrate. COMPARISON: None available. Impression: In this patient with reported history of infiltrate, no prior examinations are available for comparison. Mild left basilar/retrocardiac opacities noted which may reflect at electasis. An underlying airspace process cannot be entirely excluded on the basis of this examination. There is no evidence for large focal consolidation, pneumothorax, or significant pleural effusion. The cardiomediastinal silhouette is within normal limits. Cervical fusion hardware noted. No acute osseous abnormalities identified. Signed: Fabien Clark MDReport Verified Date/Time: 12/22/2018 16:34:43 Reading Location: [facility] Radiology Reading Room POCT-GLUCOSE [id number] 08:37:00 Test Item Value Reference Range Interpretation Comments POC-GLUCOSE METER 148 mg/dL 70-110 H TESTED AT [facility] [address] (BEAKER) (test code [address] [facility] [place] = 1538) [id number] BASIC METABOLIC [id number] 05:01:00 Test Item Value Reference Range Interpretation Comments SODIUM (BEAKER) 139 meq/L 135-148 (test code = 381) POTASSIUM (BEAKER) 4.2 meq/L 3.6-5.5 (test code = 379) CHLORIDE (BEAKER) 105 meq/L 98-106 (test code = 382) CO2 (BEAKER) (test 26 meq/L 20-29 code = 355) BLOOD UREA NITROGEN 8 mg/dL 10-26 L (BEAKER) (test code = 354) CREATININE (BEAKER) 0.76 mg/dL 0.50-1.20 (test code = 358) GLUCOSE RANDOM 106 mg/dL 70-110 (BEAKER) (test code = 652) CALCIUM (BEAKER) 8.8 mg/dL 8.5-10.5 (test code = 697) EGFR (BEAKER) (test 77 mL/min/1.73 ESTIMA NASRIN GFR IS code = 1092) sq m NOT ACCURATE CREATININE CLEARANCE IN PREDICTING GLOMERULAR FILTRATION RATE . ESTIMATED GFR I S NOT APPLICABLE FOR DIALYSIS PATIEN TS. CBC W/PLT COUNT & AUTO [id number] 04:38:00 Test Item Value Reference Range Interpretation Comments WHITE BLOOD CELL COUNT (BEAKER) 5.0 K/ L 4.0-10.0 (test code = 775) RED BLOOD CELL COUNT (BEAKER) 4.13 M/ L 4.00-5.00 (test code = 761) HEMOGLOBIN (BEAKER) (test code = 13.4 GM/DL 12.0-15.5 410) HEMATOCRIT (BEAKER) (test code = 40.9 % 36.0-46.0 411) MEAN CORPUSCULAR VOLUME (BEAKER) 99.0 fL 82.0-99.0 (test code = 753) MEAN CORPUSCULAR HEMOGLOBIN 32.4 pg 27.0-33.0 (BEAKER) (test code = 751) MEAN CORPUSCULAR HEMOGLOBIN CONC 32.8 GM/DL 32.0-36.0 (BEAKER) (test code = 752) RED CELL DISTRIBUTION WIDTH 13.0 % 12.0-15.0 (BEAKER) (test code = 412) PLATELET COUNT (BEAKER) (test 285 K/CU MM 150-430 code = 756) MEAN PLATELET VOLUME (BEAKER) 8.9 fL 6.0-11.5 (test code = 754) NUCLEATED RED BLOOD CELLS 0 /100 WBC 0-0 (BEAKER) (test code = 413) NEUTROPHILS RELATIVE PERCENT 44 % (BEAKER) (test code = 429) LYMPHOCYTES RELATIVE PERCENT 40 % (BEAKER) (test code = 430) MONOCYTES RELATIVE PERCENT 13 % (BEAKER) (test code = 431) EOSINOPHILS RELATIVE PERCENT 2 % (BEAKER) (test code = 432) BASOPHILS RELATIVE PERCENT 0 % (BEAKER) (test code = 437) NEUTROPHILS ABSOLUTE COUNT 2.19 K/ L 1.80-8.00 (BEAKER) (test code = 670) LYMPHOCYTES ABSOLUTE COUNT 2.00 K/ L 1.48-4.50 (BEAKER) (test code = 414) MONOCYTES ABSOLUTE COUNT (BEAKER) 0.65 K/ L 0.00-1.30 (test code = 415) EOSINOPHILS ABSOLUTE COUNT 0.12 K/ L 0.00-0.50 (BEAKER) (test code = 416) BASOPHILS ABSOLUTE COUNT (BEAKER) 0.02 K/ L 0.00-0.20 (test code = 417) IMMATURE GRANULOCYTES-RELATIVE 0 % 0-0 PERCENT (BEAKER) (test code = 2801) POCT-GLUCOSE [id number] 20:46:00 Test Item Value Reference Range Interpretation Comments POC-GLUCOSE METER 236 mg/dL 70-110 H TESTED AT [address] ([facility]) (test code [address] [facility] [place] = 1538) [id number] POCT-GLUCOSE [id number] 18:27:00 Test Item Value Reference Range Interpretation Comments POC-GLUCOSE METER 100 mg/dL 70-110 TESTED AT [address] ([facility]) (test code [address] [facility] [place] = 1538) [id number] CT Abdomen Wo [id number] 14:43:13Hm Interface, Radiology Results - 12/21/2018 2:46 PM CDTEXAMINATION: CT ABDOMEN WO CONTRASTCLINICAL HISTORY: hx of multiple abd surgeries. with abd pain bloating and nauseaCOMPARISON: None.TECHNIQUE: Multiple axial CT images of the Abdomen and pelvis were obtained Without IV contrast limiting evaluation Oral contrast was administered. . Sagittal and coronal reconstructions were done. Radiation dose reduction technique used for this study.CT imaging was performed with iterative reconstruction technique and/or automated exposure control to reduce radiation dose.FINDINGS:HEPATOBILIARY: Mildly fatty liver without focal lesions.GALLBLADDER: Absent.SPLEEN: No splenomegaly.PANCREAS: Unremarkable within the limitations of a noncontrast exam.ADRENALS: No adrenal nodules.KIDNEYS: No stones or hydronephrosis.PERITONEUM/RETROPERITONEUM: No free air or fluid. No lymphadenopathy. Surgical clips present in the upper retroperitoneum.ABDOMINAL AORTA/IVC: No signs of aneurysm.GI TRACT: Visualized portions of the bowel demonstrate no distention or wall thickening. Thank you is normal.No signs of diverticulitis.PELVIC ORGANS/BLADDER: The urinary bladder is fluid-filled. Uterus and ovaries are absent.BONES AND SOFT TISSUES: No acute abnormality.VISUALIZED LOWER CHEST: Focal airspace consolidations present in the left lower lobe measuring up to 3.3 cm medially. Small hiatal hernia.IMPRESSIO N:No acute abnormality in the abdomen and pelvis.Left lower lobe pneumonia. Recommend follow-up CT chest posttreatment to ensure resolution.[id number] [place] [facility] [id number] 13:11:59 Test Item Value Reference Range Interpretation Comments Sodium (test code = 2951-2) 143 128- 145 mEq/L Potassium (test code = 2823-3) 4.4 3.6- 5.1 mEq/L CO2 (test code = 8-9) 30 18- 33 mEq/L Chloride (test code = 2075-0) 99 98- 108 mEq/L Glucose (test code = 2345-7) 101 mg/dL 73-118 Calcium (test code = 90606-4) 9.5 mg/dL 8-10.3 BUN (test code = 3094-0) 8 mg/dL 7-22 Creatinine (test code = 2160-0) 1.1 mg/dL 0.5-0.9 H Alkaline phosphatase (test code = 104 U/L 42-141 6768-6) ALT (test code = 1742-6) 26 U/L 10-47 AST (test code = 1920-8) 33 U/L 11-38 Total bilirubin (test code = 0.4 mg/dL 0.2-1.6 1974-2) Albumin (test code = 1751-7) 4.2 g/dL 3.3-5.5 Protein (test code = 2885-2) 8.4 g/dL 6.4-8.1 H Anion gap (test code = 57806-3) 14@ANIO 7- 15 mEq/L A/G ratio (test code = 1759-0) 1.0 0.7-3.8 Lab Interpretation (test code = Abnormal 14157-4) Bj MethodistEstimated [id number] 13:11:59 Test Item Value Reference Range Interpretation Comments Estimated GFR (test 54 mL/min/1.73 m2 A Tasneem asencio Units code = 5488) InterpretationG 1 >=90 Estrellita l or highG2 60-89 Mildly decrease dG3a 45-59 Mil dly to moderately decr jmztmR8x 30-44 Moderately to s everely decreasedG4 15-29 Severe ly decreasedG5 <15 Kidney daphne lureThe eGFR was calcul ated using the Chron Kidney Disease Epidemiology Collaboration ( CKD-EPI) equation. Interpretation is based on recommendati ons of the National Ki dney [facility]-Kidn ey Disease Outcome s Quality Initiat bao (NKF-KDOQI) pub lished in 2013. Lab Interpretation Abnormal (test code = 27282-3) Bj [id number] 13:01:54 Test Item Value Reference Range Interpretation Comments Glucose, UA (test code = 38286-7) Negative Negative Bilirubin, UA (test code = 5770-3) Negative Negative Ketones, UA (test code = 2514-8) Negative Negative Specific gravity, UA (test code = =<1.005 1.001-1.035 5811-5) Blood, UA (test code = 5794-3) Negative Negative pH, UA (test code = 5803-2) 5.5 5.0-8.5 Protein, UA (test code = 89774-2) Negative Negative Urobilinogen, UA (test code = <2.0 <2.0 06032-1) Nitrite, UA (test code = 5802-4) Negative Negative Leukocyte esterase, UA (test code = Trace Negative A 5799-2) Color, UA (test code = 5778-6) Yellow Appearance, UA (test code = 5767-9) Clear Lab Interpretation (test code = Abnormal 25435-5) [facility] with platelet and [id number] 13:01:01 Test Item Value Reference Range Interpretation Comments WBC (test code = 26036-6) 5.10 4.50- 11.00 k/uL RBC (test code = 41018-2) 4.87 m/uL 4.2-5.5 HGB (test code = 718-7) 15.5 g/dL 12-16 HCT (test code = 4544-3) 47.9 % 37-47 H MCV (test code = 787-2) 98.4 fL 82-100 MCH (test code = 785-6) 31.8 pg 27-34 MCHC (test code = 786-4) 32.4 g/dL 31-37 RDW - SD (test code = 78233-1) 47.3 fL 37-55 MPV (test code = 77078-5) 9.1 fL 8.8-13.2 Platelet count (test code = 264 150- 400 k/uL 58331-3) Neutrophils (test code = 57023-2) 51.1 % 39-69 Lymphocytes (test code = 82712-7) 37.3 % 25-45 Monocytes (test code = 05938-2) 10.2 % 0-10 H Eosinophils (test code = 98285-2) 1.2 % 0-5 Basophils (test code = 70400-8) 0.2 % 0-1 Lab Interpretation (test code = Abnormal 67525-1) Bj Stovall
--- OUTSIDE RECORDS SUMMARY | 2019-10-16 18:49 | XMS REPORT ---
:1955 Author Organization e[employer]Works Care Team Providers Name Role Phone Rustam Gus Provider Role Unavailable Allergies, Adverse Reactions, Alerts [...] osteoarthritis of right hip M16.11 Active Assessment Medicare annual wellness visit, Z00.00 Active subsequent Problem 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.8 Acti ve Problem Osteoarthritis M19.90 Active Assessment Asymptomatic menopausal state Z78.0 Active Problem Diabetes E11.9 Active Assessment Encounter for screening mammogram Z12.31 Active for malignant neoplasm of breast Problem Allergic rhinitis J30.9 Active Problem Mixed hyperlipidemia E78.2 Active Problem Acquired hypothyroidism E03.9 Acti ve 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 Problem Hyperlipidemia, mixed E78.2 Active Medications Medication Code Code Instructions Start End Status Dosage System Date Date Folic Acid [facility] 95028263928 1 MG Oral Active TAKE 1 TABLET BY MOUTH ONCE DAILY Glucometer [facility] 04634033962 n/s n/s use as Active on e directed Albuterol [facility] 95023380343 108 (90 Base) Dec 29, Active 2 pu ffs as Sulfate HFA MCG/ACT 2019 needed Inhalation every 6 hrs True Metrix [facility] 21249875432 - Active USE 1 ST RIP TO Blood Glucose CHECK GLUC OSE Test TWICE DAILY Citalopram [facility] 40562047470 40MG Orally Active take one tablet Hydrobromide Once a day by mouth once daily blood glucose NDC 0 n/s twice a Active one test strip day Lancets Super NDC 0 n/s finger Active one Thin stick twice a day Albuterol [facility] 11403067899 (5 MG/ML) 0.5% Active 1 m l as needed Sulfate Inhalation every 6 hrs Tradjenta [facility] 85608471329 5 MG Orally Active 1 tabl et Once a day Praluent ND 90697270560 75 MG/ML Active INJECT 1 M L SUBCUTANEOUSLY EVERY TWO WEEKS Levothyroxine ND 41824832703 112 MCG Orally Active 1 tablet on an Sodium Once a day empty stomach in the morning Alcohol Prep NDC 0 Active as directed Pads Results No Known Results Summary Purpose eClinicalWorks Submission
--- OUTSIDE RECORDS SUMMARY | 2019-10-16 18:49 | XMS REPORT ---
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 Act bao Assessment Fatty liver disease, nonalcoholic K76.0 Active Problem Primary osteoarthritis of right hip M16.11 Active Assessment Controlled type 2 diabetes mellitus E11.9 Active without complication, without long-term current use of insulin Problem 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.8 Acti ve Problem Osteoarthritis M19.90 Active Assessment Acquired hypothyroidism E03.9 Acti ve Problem Diabetes E11.9 Active Assessment Primary osteoarthritis of right hip M16.11 Active Problem Allergic rhinitis J30.9 Active Assessment 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 Act bao Problem Mixed hyperlipidemia E78.2 Active Assessment Mixed hyperlipidemia E78.2 Active Problem Acquired hypothyroidism E03.9 Acti ve 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 Problem Hyperlipidemia, mixed E78.2 Active Medications Medication Code Code Instructions Start End Status Dosage System Date Date Alcohol Prep NDC 0 Active as directed Pads Albuterol [facility] 03748949517 108 (90 Base) Dec 29, Active 2 pu ffs as Sulfate HFA MCG/ACT 2019 needed Inhalation every 6 hrs True Metrix [facility] 93918372877 - Active USE 1 ST RIP TO Blood Glucose CHECK GLUC OSE Test TWICE DAILY Lancets Super NDC 0 n/s finger Active one Thin stick twice a day Levothyroxine [facility] 96346054241 112 MCG Orally Active 1 tablet on an Sodium Once a day empty stomach in the morning Citalopram [facility] 68865287594 40MG Orally Active take one tablet Hydrobromide Once a day by mouth once daily Aspir-81 [facility] 56355318825 81 MG Orally Active 1 tabl et Once a day Jardiance [facility] 26824690444 10 MG Orally October 04Dec Active 1 tab let Once a day 2019 Glucometer [facility] 72113921512 n/s n/s use as Active on e directed Albuterol [facility] 49683300727 (5 MG/ML) 0.5% Active 1 m l as needed Sulfate Inhalation every 6 hrs Tradjenta [facility] 30218219856 5 MG Orally Inactive 1 tab let Once a day Praluent [facility] 49740986189 75 MG/ML Active INJECT 1 M L SUBCUTANEOUSLY EVERY TWO WEEKS Folic Acid [facility] 57975142854 1 MG Oral Active TAKE 1 TABLET BY MOUTH ONCE DAILY Claritin [facility] 40089463490 10 MG Orally Active 1 tabl et Once a day Vitamin D [facility] 14[address] Active not define d blood glucose [facility] 0 n/s twice a Active one test strip day Results No Known Results Summary Purpose eClinicalWorks Submission
--- NOTE | 2019-10-16 20:33 | ER ---
Nurse's Notes [facility] Name: Kathy Ledesma Age: 63 yrs Sex: Female : 1955 Arrival Date: 10/16/2019 Time: 18:46 Bed 20 Private MD: Gus Easton Diagnosis: Pain in right knee Presentation: 10/15 19:01 Chief complaint: Patient states: Sudden onset of R knee pain after getting out of car, ph hx of knee problems and arthritis, no swelling noted. Coronavirus screen: Patient denies a cough. Patient denies shortness of breath or difficulty breathing. Patient denies measured and/or subjective temperature greater than 100.4F prior to today's visit. Patient denies travel on a cruise ship or to a country the [facility] currently lists as an affected area. Patient denies contact with known and/or suspected case of COVID-19. Ebola Screen: No symptoms or risks identified at this time. Initial Sepsis Screen: Does the patient meet any 2 criteria? No. Patient's initial sepsis screen is negative. Does the patient have a suspected source of infection? No. Patient's initial sepsis screen is negative. Risk Assessment: Do you want to hurt yourself or someone else? Patient reports no desire to harm self or others. Onset of symptoms was October 16, 2019. 19:01 Method Of Arrival: Wheelchair ph 19:01 Acuity: ZAK 4 ph Historical: - Allergies: 19:03 Codeine; ph 19:03 Morphine; ph 19:03 NSAIDS; ph 19:03 Relafen; ph - PMHx: 19:03 COPD; CVA; Diabetes - NIDDM; Fibromyalgia; Hypothyroidism; shingles; spinal stenosis; ph - Immunization history:: Adult Immunizations unknown. - Social history:: Smoking status: Patient denies any tobacco usage or history of. - Family history:: not pertinent. Screenin:24 Abuse screen: Denies threats or abuse. Nutritional screening: No deficits noted. Tuberculosis screening: No symptoms or risk factors identified. Fall Risk None identified. Assessment: 19:30 General: Appears in no apparent distress. Behavior is cooperative. Pain: Complains of pain in right knee and right hip Pain began years ago. Neuro: Level of Consciousness is awake, alert, Oriented to person, place, time, situation. Cardiovascular: Capillary refill < 3 seconds Patient's skin is warm and dry. Respiratory: Respiratory effort is even, unlabored. Derm: No signs and/or symptoms reported regarding the dermatologic system. Skin is intact, is healthy with good turgor. Musculoskeletal: Circulation, motion, and sensation intact. Capillary refill < 3 seconds, Range of motion: intact in right hip and right knee Reports pain in right knee and right hip Denies injury. 20:40 Reassessment: Pt to radiology for xrays. 20:50 Reassessment: No knee immobilizer in ER. Notified House Sup and she is locating one. Updated Pt on wait time. 21:26 Reassessment: Pt declines crutches. She states that it will hurt her wrist. She states that she has a walker at home that she can use. 21:30 Reassessment: Tech applied splint to knee. Pain med given per MD orders. Vital Signs: 19:01 BP 112 / 60; Pulse 80; Resp 18; Temp 97.7; Pulse Ox 99% on R/A; Weight 82.55 kg; Height ph 5 ft. 1 in. (154.94 cm); Pain 10/10; 19:01 Body Mass Index 34.39 (82.55 kg, 154.94 cm) ph ED Course: 18:46 Patient arrived in ED. ag5 18:46 Aquilino Easton MD is Private Physician. ag5 18:46 Gus Easton DO is Private Physician. ag5 19:03 Triage completed. ph 19:04 Arm band placed on Patient placed in an exam room. ph 19:09 Mando Stern MD is Attending Physician. [facility] 19:31 Abigail Taveras, RN is Primary Nurse. 19:47 Warm blanket given. Ice pack to injury. Pulse ox on. NIBP on. jp3 19:48 Patient maintains SpO2 saturation greater than 95% on room air. jp3 20:33 Gus Easton DO is Referral Physician. gilberto 20:33 Felix Hernandez MD is Referral Physician. gilberto 20:44 Knee Right 3 View XRAY In Process Unspecified. EDMS 20:44 Hip Right 2 View XRAY In Process Unspecified. EDMS 21:25 Patient has correct armband on for positive identification. Bed in low position. Call light in reach. Side rails up X2. 21:25 No provider procedures requiring assistance completed. Patient did not have IV access during this emergency room visit. Administered Medications: 21:33 CANCELLED (Duplicate Order): morphine 10 mg IVP once; RASS on ADMIN: Combtv4, Very gilberto Agttd3, Agttd2, Rstlss1, AlertClm0, Drwsy-1, Lt Sdtn-2, Mod Sdtn-3, Dp Sdtn-4, UnArsble-5 21:45 Drug: Phenergan 25 mg Route: IM; Site: left ventrogluteal; 22:16 Follow up: Response: No adverse reaction 21:45 Drug: Demerol 50 mg Route: IM; Site: right ventrogluteal; 22:16 Follow up: Response: No adverse reaction Outcome: 20:33 Discharge ordered by . [facility] 21:25 Discharged to home via wheelchair. 21:25 Condition: good 21:25 Discharge instructions given to patient, Instructed on discharge instructions, follow up and referral plans. medication usage, Demonstrated understanding of instructions, follow-up care, medications, Prescriptions given X 1. 22:17 Patient left the ED. Signatures: Dispatcher [employer] EDMS Mando Stern MD MD cha Hall, Patricia, RN RN Jose Posadas [facility] Abigail Taveras, RN RN Corrections: (The following items were deleted from the chart) 19:04 19:03 Arm band placed on Patient placed in waiting room, Patient notified of wait time [facility] 19:04 19:03 X-ray ordered. ph
--- NOTE | 2019-10-16 20:33 | EDPHYS ---
Physician Documentation [facility] Name: Kathy Ledesma Age: 63 yrs Sex: Female : 1955 Arrival Date: 10/16/2019 Time: 18:46 Bed 20 Private MD: Rustam [facility] ED Physician Mando Stern HPI: 10/15 19:45 This 63 yrs old Female presents to ER via Wheelchair with complaints of Knee gilberto Pain. 19:45 The patient presents with decreased range of motion, pain, that is acute. The gilberto complaints affect the right knee. Context: The problem was sustained outdoors, resulted from twisting of the extremity, getting out of the car. Onset: The symptoms/episode began/occurred today. Modifying factors: The symptoms are alleviated by remaining still, the symptoms are aggravated by movement, weight bearing, bending knee. Associated signs and symptoms: The patient has no apparent associated signs or symptoms. Treatment prior to arrival includes: no previous treatment. Severity of symptoms: At their worst the symptoms were moderate, in the emergency department the symptoms have improved, mildly. The patient has experienced similar episodes in the past, a few times. Historical: - Allergies: 19:03 Codeine; ph 19:03 Morphine; ph 19:03 NSAIDS; ph 19:03 Relafen; ph - PMHx: 19:03 COPD; CVA; Diabetes - NIDDM; Fibromyalgia; Hypothyroidism; shingles; spinal stenosis; ph - Immunization history:: Adult Immunizations unknown. - Social history:: Smoking status: Patient denies any tobacco usage or history of. - Family history:: not pertinent. ROS: 19:45 Constitutional: Negative for fever, chills, and weight loss, Eyes: Negative for injury, gilberto pain, redness, and discharge, ENT: Negative for injury, pain, and discharge, Neck: Negative for injury, pain, and swelling, Cardiovascular: Negative for chest pain, palpitations, and edema, Respiratory: Negative for shortness of breath, cough, wheezing, and pleuritic chest pain, Abdomen/GI: Negative for abdominal pain, nausea, vomiting, diarrhea, and constipation, Back: Negative for injury and pain, : Negative for injury, bleeding, discharge, and swelling, Skin: Negative for injury, rash, and discoloration, Neuro: Negative for headache, weakness, numbness, tingling, and seizure, Psych: Negative for depression, anxiety, suicide ideation, homicidal ideation, and hallucinations, Allergy/Immunology: Negative for hives, rash, and allergies, Endocrine: Negative for neck swelling, polydipsia, polyuria, polyphagia, and marked weight changes, Hematologic/Lymphatic: Negative for swollen nodes, abnormal bleeding, and unusual bruising. 19:45 MS/extremity: Positive for pain, no swelling. Exam: 19:45 Constitutional: This is a well developed, well nourished patient who is awake, alert, gilberto and in no acute distress. Head/Face: Normocephalic, atraumatic. Eyes: Pupils equal round and reactive to light, extra-ocular motions intact. Lids and lashes normal. Conjunctiva and sclera are non-icteric and not injected. Cornea within normal limits. Periorbital areas with no swelling, redness, or edema. ENT: Nares patent. No nasal discharge, no septal abnormalities noted. Tympanic membranes are normal and external auditory canals are clear. Oropharynx with no redness, swelling, or masses, exudates, or evidence of obstruction, uvula midline. Mucous membranes moist. Neck: Trachea midline, no thyromegaly or masses palpated, and no cervical lymphadenopathy. Supple, full range of motion without nuchal rigidity, or vertebral point tenderness. No Meningismus. Chest/axilla: Normal chest wall appearance and motion. Nontender with no deformity. No lesions are appreciated. Cardiovascular: Regular rate and rhythm with a normal S1 and S2. No gallops, murmurs, or rubs. Normal PMI, no JVD. No pulse deficits. Respiratory: Lungs have equal breath sounds bilaterally, clear to auscultation and percussion. No rales, rhonchi or wheezes noted. No increased work of breathing, no retractions or nasal flaring. Abdomen/GI: Soft, non-tender, with normal bowel sounds. No distension or tympany. No guarding or rebound. No evidence of tenderness throughout. Back: No spinal tenderness. No costovertebral tenderness. Full range of motion. Female : Normal external genitalia. Skin: Warm, dry with normal turgor. Normal color with no rashes, no lesions, and no evidence of cellulitis. Neuro: Awake and alert, GCS 15, oriented to person, place, time, and situation. Cranial nerves II-XII grossly intact. Motor strength 5/5 in all extremities. Sensory grossly intact. Cerebellar exam normal. Normal gait. Psych: Awake, alert, with orientation to person, place and time. Behavior, mood, and affect are within normal limits. 19:45 Musculoskeletal/extremity: Extremities: noted in the right knee: decreased ROM, pain, ROM: full passive range of motion, limited active range of motion, limited active range of motion due to pain, Circulation is intact in all extremities. Sensation intact. Compartment Syndrome exam of affected extremity: is normal. Joints: pain at rest, painful range of motion, tenderness, DVT Exam: no swelling, negative Homans' sign noted on exam, no appreciated bluish discoloration, no erythema, no increased warmth, pain, tenderness. Vital Signs: 19:01 BP 112 / 60; Pulse 80; Resp 18; Temp 97.7; Pulse Ox 99% on R/A; Weight 82.55 kg; Height ph 5 ft. 1 in. (154.94 cm); Pain 10/10; 19:01 Body Mass Index 34.39 (82.55 kg, 154.94 cm) ph MDM: 19:10 Patient medically screened. gilberto 19:48 Data reviewed: vital signs, nurses notes, radiologic studies, plain films. [facility] 19:52 Differential diagnosis: dislocation, closed fracture, contusion, tendonitis. Data gilberto interpreted: equipment monitor phototypesetting: not applicable for this patient encounter. Pulse oximetry: on room air is 99 %. Test interpretation: by ED physician or midlevel provider: plain radiologic studies. Counseling: I had a detailed discussion with the patient and/or guardian regarding: the historical points, exam findings, and any diagnostic results supporting the discharge/admit diagnosis, radiology results, the need for outpatient follow up, for definitive care, a orthopedic surgeon. Medication response: immobilization and ice. 20:11 ED course: explained xrays and results, will follow up. [facility] 10/15 19:34 Order name: Knee Right 3 View XRAY; Complete Time: 21:32 gilberto 10/15 19:34 Order name: Hip Right 2 View XRAY; Complete Time: 21:32 gilberto 10/15 19:35 Order name: Ice pack; Complete Time: 19:48 gilberto Administered Medications: 21:33 CANCELLED (Duplicate Order): morphine 10 mg IVP once; RASS on ADMIN: Combtv4, Very gilberto Agttd3, Agttd2, Rstlss1, AlertClm0, Drwsy-1, Lt Sdtn-2, Mod Sdtn-3, Dp Sdtn-4, UnArsble-5 21:45 Drug: Phenergan 25 mg Route: IM; Site: left ventrogluteal; 22:16 Follow up: Response: No adverse reaction 21:45 Drug: Demerol 50 mg Route: IM; Site: right ventrogluteal; 22:16 Follow up: Response: No adverse reaction Disposition: 10/16/19 20:33 Discharged to Home. Impression: Pain in right knee. - Condition is Stable. - Discharge Instructions: Joint Pain, How to Use a Knee Brace, Knee Pain, Arthritis, [id number], Cryotherapy. - Prescriptions for Tramadol 50 mg Oral Tablet - take 1 tablet by ORAL route every 8 hours as needed; 26 tablet. - Medication Reconciliation Form, Thank You Letter, Antibiotic Education, Prescription Opioid Use form. - Follow up: Gus Easton; When: 2 - 3 days; Reason: Recheck today's complaints, Continuance of care, Re-evaluation by your physician. Follow up: Dr. Felix Hernandez; When: 2 - 3 days; Reason: Recheck today's complaints, Re-evaluation by your physician. - Problem is new. - Symptoms have improved. Signatures: Dispatcher [employer] EDMS Mando Stern MD MD cha Hall, Patricia, RN RN Abigail Taveras RN RN Corrections: (The following items were deleted from the chart) 19:52 19:35 Hip Right 2 View+RAD.RAD.BRZ ordered. EDFL EDMS 19:52 19:35 Knee Right 3 View+RAD.RAD.BRZ ordered. EDFL EDMS 21:33 21:32 morphine 10 mg IVP once; RASS on ADMIN: Combtv4, Very Agttd3, Agttd2, Rstlss1, gilberto AlertClm0, Drwsy-1, Lt Sdtn-2, Mod Sdtn-3, Dp Sdtn-4, UnArsble-5 ordered. [facility] 21:39 19:37 Crutches ordered. [facility] 22:17 19:35 Knee Immobilizer ordered. [facility] 22:17 20:33 10/16/2019 20:33 Discharged to Home. Impression: Pain in right knee. Condition is Stable. Discharge Instructions: Joint Pain, How to Use a Knee Brace, Knee Pain, Arthritis, [id number]-Bpyz, Cryotherapy. Prescriptions for Tramadol 50 mg Oral Tablet - take 1 tablet by ORAL route every 8 hours as needed; 26 tablet. and Forms are Medication Reconciliation Form, Thank You Letter, Antibiotic Education, Prescription Opioid Use. Follow up: Gus Easton; When: 2 - 3 days; Reason: Recheck today's complaints, Continuance of care, Re-evaluation by your physician. Follow up: Dr. Felix Hernandez; When: 2 - 3 days; Reason: Recheck today's complaints, Re-evaluation by your physician. Problem is new. Symptoms have improved. gilberto
--- NOTE | 2019-10-16 21:21 | RAD REPORT ---
EXAM DESCRIPTION: RAD - Hip Right 2 View - 10/16/2019 8:44 pm CLINICAL HISTORY: Right hip pain FINDINGS: No fracture or dislocation is seen. Mild joint space narrowing and subchondral sclerosis involves the right hip
--- NOTE | 2019-10-16 21:23 | RAD REPORT ---
EXAM DESCRIPTION: RAD - Knee Right 3 View - 10/16/2019 8:44 pm CLINICAL HISTORY: Right knee pain FINDINGS: No fracture or dislocation is seen. Mild to moderate osteoarthritis involves the medial compartment consisting joint space narrowing and osteophytes. Mild lateral subluxation of the tibia on the femur. Bones appear osteoporotic
[2019-10-16] MEDS ORDERED: PROMETHAZINE INJ 25 MG/ML AMP ONE (21:46)
[2019-10-16] MEDS ORDERED: MEPERIDINE HCL 50 MG/ML ONE (21:46)
[2019-10-16 22:22] VITALS: BP 112/60; TEMP 97.7; O2SAT 99
== END 2019-10-16 22:17 | disposition home or self-care (01) ==
LOC: ER 18:43
DX: M25.561 Pain in right knee (principal); Z88.6 Allergy status to analgesic agent
CPT/HCPCS: 73502; 73562; 96372; 99284; J2550; J2175

== ENCOUNTER 2020-05-30 16:03 | Emergency (ER) | payer MEDICARE, OTHER ==
--- OUTSIDE RECORDS SUMMARY | 2020-05-30 16:05 | XMS REPORT | Clinical Summary ---
:1955 Author Organization [facility] Address [address] [place] [address] Care Team Providers Name Role Phone Gus Easton Primary Care Provider [phone] Allergies Active Allergy Reactions Severity Noted Date Comments Ciprofloxacin 12/21/2018 Codeine 12/21/2018 Iodine 12/21/2018 Levofloxacin 12/21/2018 Morphine 12/21/2018 Nsaids (Non-Steroidal Other (See Comments) 12/21/2018 Lethargic, flu like Anti-Inflammatory Drug) sypt oms Nabumetone 12/21/2018 Medications No known medications Active Problems Not on file Surgical History Surgery Date Site/Laterality Comments WILMA FUNDOPLICATION HYSTERECTOMY CHOLECYSTECTOMY SPINE SURGERY MENISCECTOMY CATARACT EXTRACTION, BILATERAL CARPAL TUNNEL RELEASE Medical History Medical History Date Comments Spinal stenosis Fibromyalgia COPD (chronic obstructive pulmonary disease) (HCC) Diabetes mellitus (HCC) Arthritis Psoriatic arthritis (HCC) Stroke (HCC) High cholesterol Vertigo Social History Tobacco Use Types Packs/Day Years Used Date Never Assessed Sex Assigned at Date Recorded Not on file Last Filed Vital Signs Not on file Plan of Treatment Health Maintenance Due Date Last Done Comments DIABETES: RETINAL EYE EXAM 1966 DIABETIC FOOT EXAM 1966 URINE MICROALBUMIN 1966 COVID-19 VACCINE (1 of 2) 1972 CERVICAL CANCER SCREENING 1977 BREAST CANCER SCREENING 2006 COLONOSCOPY SCREENING 2006 SHINGLES VACCINES (#1) 2006 INFLUENZA VACCINE 12/15/2019 02/15/2017 Results Not on fileafter 05/30/2019 Insurance Payer Benefit Plan / Subscriber ID Effective Dates Phone Addre ss Type Group MEDICARE MEDICARE PART A [id number] 2014-Present [place] Medicare AND B MEDICAID MEDICAID [id number] 2015-Present [place] Advance Directives For more information, please contact: [phone] Type Date Recorded Patient Budder Explanati on Advance Directives, Living Will 12/21/2018 12:19 PM and Medical Power of Legal Nurse Consultant
--- OUTSIDE RECORDS SUMMARY | 2020-05-30 16:05 | XMS REPORT | Clinical Summary ---
:1955 Author Organization [facility] Address [address] [place] [address] Care Team Providers Name Role Phone Unavailable Primary Care Provider Unavailable Allergies Active Allergy Reactions Severity Noted Date Comments Ciprofloxacin 12/21/2018 Codeine 12/21/2018 Iodine And Iodide Containing Products 12/2018 Levofloxacin 12/21/2018 Nsaids (Non-Steroidal Anti-Inflammatory Drug) 12/21/2018 Nabumetone 12/21/2018 Medications Medication Sig Dispensed Refills Start Date End Date Status aspirin 81 MG Take 81 mg by mouth 0 Active chewable tablet daily. citalopram (CELEXA) Take 40 mg by mouth 0 Active 20 MG tablet daily. loratadine Take 10 mg by mouth 0 Active (CLARITIN) 10 mg as needed. tablet folic acid (FOLVITE) Take 1,000 mcg by 1 11/14/2018 Active 1 MG tablet mouth daily. levothyroxine Take 112 mcg by 0 08/29/2018 Active (SYNTHROID, mouth every morning LEVOTHROID) 112 MCG before breakfast. tablet RASUVO, PF, 20 Inject 20 mg 2 12/06/2018 A ctive mg/0.4 mL AtIn subcutaneously once a week. TRADJENTA 5 mg Tab Take 5 mg by mouth 3 09/23/2018 Active daily. cholecalciferol, Take 2,000 Units by 0 Active vitamin D3, 2,000 mouth daily. unit Tab Active Problems Problem Noted Date Pneumonia 12/21/2018 SOB (shortness of breath) 12/21/2018 Social History Tobacco Use Types Packs/Day Years Used Date Never Assessed Sex Assigned at Date Recorded Not on file Last Filed Vital Signs Not on file Plan of Treatment Health Maintenance Due Date Last Done Comments BREAST CANCER SCREENING 1955 COLON CANCER SCREENING COLONOSCOPY 1955 PNEUMOCOCCAL VACCINE 0-64 YRS (1 of 3 - PCV13) 1962 CERVICAL CANCER SCREENING PAP ONLY (Age 21-65) 1977 LIPID PANEL 2001 MEDICARE ANNUAL WELLNESS (YEAR 2 or FIRST YEAR if no 02/14/2015 IPPE) INFLUENZA VACCINE (#1) 2020 02/15/2017 Results Not on fileafter 05/30/2019 Insurance Payer Benefit Plan / Subscriber ID Effective Dates Phone Addre ss Type Group MEDICARE MEDICARE A B [id number] 2014-Presen Medicare t [place] [id number] 2018-Present
--- OUTSIDE RECORDS SUMMARY | 2020-05-30 16:09 | XMS REPORT | Continuity of Care Document ---
:1955 Author Organization [employer] Care Team Providers Name Role Phone [place] Information Pocketbook Unavailable Un available Problems Problem Status Onset Classification Date Comments Sourc e Date Reported RT KNEE DJD Active [place] [address] [place] [facility] [place] [facility] UNK Active 020 [place] M16.11 Active 020 [facility] EPIGASTRIC PAIN [place] [address] [place] [address] [place] [address] [place] [address] PHONE CALL - NEW Active [facility] PT VISIT - [address] [place] [address] M51.16 - Active OPID INTERVERTEBRAL 020 June and DISC DISORDERS Other bursal cyst, 09/15/2017 other site 018 [facility] N/A Active 018 [facility] LUMBAR L3-4 CYPTIC Active M H MASS 018 [facility] 723.0 CERVICAL Active STENOSIS 014 [facility] 724.5, 723.1, Active 722.0, 722.10, 014 [facility] 722.81 Rheumatic fever Resolved Problem 04/30/2020 Ortho (disorder) 977 and Spine Final: 05/25/2014 [facility] Type 2 diabetes 09/15/2017 mellitus with [place] hyperglycemia Fibromyalgia 09/15/2017 [place] Chronic 09/15/2017 obstructive [place] pulmonary disease, unspecified Major depressive 09/15/2017 disorder, single [place] episode, unspecified Hypothyroidism, 09/15/2017 unspecified [place] Unilateral primary 11/02/2019 osteoarthritis, [place] right hip Asthma (disorder) Active Problem 04/30/2020 [facility] Neuro,[facility], [facility], M H ZAYNAB Reece,[facility] Backache (finding) Resolved Problem 04/30/2020 [facility], Ortho [facility] Spine,[facility] Body mass index Active Problem 04/30/2020 Ortho 30+ - obesity and Sp ine (finding) Chronic Active Problem 04/30/2020 Ortho pancreatitis and Spi ne (disorder) Chronic Resolved Problem 04/30/2020 [facility] obstructive lung Margaret ro, disease (disorder) T [facility], Ortho and Spine,[facility], [facility] Depression - Active Problem 04/30/2020 Ort ho motion (qualifier an d Spine value) Diabetes mellitus Active Problem 04/30/2020 [place] (disorder) Neuro,[facility], Ortho [facility] Spine,[facility] Fibromyalgia Active Problem 04/30/2020 Ort ho (disorder) and Spine Gastroesophageal Active Problem 04/30/2020 Ortho reflux disease and [place] (disorder) History of - TIA Active Problem 04/30/2020 Ortho (context-dependent a nd Spine category) Hyperlipidemia Active Problem 04/30/2020 O rtho (disorder) and Spine Hypothyroidism Active Problem 04/30/2020 O rtho (disorder) and Spine Mixed anxiety and Active Problem 04/30/2020 [facility] Ortho depressive and Spine disorder (disorder) Neck pain Resolved Problem 04/30/2020 [place] (finding) Neuro,[facility], Ortho [facility] Spine,[facility] Obsessive-compulsi Active Problem 04/30/2020 Ortho ve disorder and Spin e (disorder) Osteoarthritis Active Problem 04/30/2020 O rtho (disorder) and Spine Osteoarthritis of Active Problem 04/30/2020 [facility] Ortho knee (disorder) and Spine Osteopenia Active Problem 04/30/2020 Ortho (disorder) and Spine Sleep apnea Active Problem 04/30/2020 [place] (finding) Neuro,[facility], Ortho [facility] Spine,[facility] Thyroid Active Problem 04/30/2020 hypothryoid Mischer dysfunction Neuro, (disorder) [facility], Ortho and Spine,[facility] Diabetes mellitus Active Problem 04/30/2020 M H Ortho type 2 (disorder) an d Spine BACKACHE NOS Active MH [facility] CERVICALGIA Active [facility] CERVICAL DISC Active MH DISPLACMNT [facility] CERVICAL SPINAL Active MH STENOSIS [facility] OTHER BURSAL CYST, Active M H UNSPECIFIED SITE [place] UNILATERAL PRIMARY Active M H OSTEOARTHRITIS, [place] RIGHT Medications Medication Details Route Status Patient Ordering Order Source Instructions Provider Date dexamethasone Notes: Give No Longer O rtho with food. Active 2020 and Spine (Same As: Decadron) Saline Flush 0.9% Notes: Same as: No Longer 04/15 Ortho BD Posiflush Active 2020 and Spine Sterile Saline Flush 0.9% Notes: Same as: No Longer 04/15 Ortho BD Posiflush Active 2019 and Spine Sterile Enoxaparin Notes: (Same No Longer Ort ho as: Lovenox) Active 2020 and Spine dexamethasone Notes: No Longer Ortho Concentration: Active 2020 and Spine 4mg/ml Vancomycin 2001 mg: Inactive Ortho infuse over 2.5 2020 and Spin e hours For adult patients only: Round to nearest 250 mg per Medical Staff approval MEDICATION WASTE Product Size: 1000 mg Product Wasted: ___ mg tranexamic acid + Notes: (Same Inactive Ortho Sodium Chloride As: 2020 and Spin e 0.9% IV 100 mL Cyklokapron) Cefazolin Notes: (Same Inactive Ortho As: Ancef, 2020 and Spine Kefzol) MEDICATION WASTE Product Size: 1000 mg Product Wasted: ___ mg Zofran Notes: (Same Inactive Ortho as: Zofran) 2020 and Spine MEDICATION WASTE Product Size: 4 mg Product Wasted: ___ mg dexamethasone Notes: Give Inactive Or tho with food. 2020 and Spine (Same As: Decadron) Acetaminophen 325 1 tab, PO, Q3H, Active Ortho MG / Oxycodone PRN Pain Score 2019 an d Spine Hydrochloride 10 7-10, 0 MG Oral Tablet Refill(s) [Percocet 10/325] Aspirin 325 MG 325 mg = 1 tab, Active H Ortho Enteric Coated PO, BID, # 60 2020 and Spine Tablet tab, 0 Refill(s), given to patient 1/2 NS 1,000 mL 1,000 mL, Rate: Inactive 04/28/ MH Ortho 75 ml/hr, 2020 and Spine Infuse over: 13.3 hr, Route: IV, Dosing Weight 83.864 kg, Total Volume: 1,000, Start date: 04/28/20 11:38:00 DEAN OF INSTRUCTION, Duration: 30 day, Stop date: 05/28/20 11:37:00 DEAN OF INSTRUCTION, 1.93, m2, 0 Tranexamic Acid Notes: (Same Inactive 04/28/ Ortho As: 2020 and Spine Cyklokapron) Dexamethasone Notes: Inactive Ortho Concentration: 2020 and Spine 4mg/ml Zofran Notes: (Same Inactive 04/28/ Ortho as: Zofran) 2020 and Spine MEDICATION WASTE Product Size: 4 mg Product Wasted: ___ mg Acetaminophen 325 Notes: (Same Inactive 04/28/ Ortho MG / Hydrocodone as: [place] 2020 and [place] Bitartrate 5 MG 325/5) Do not Oral Tablet exceed 4gm/day [[place] 5/325] of acetaminophen. Acetaminophen 325 Notes: Do not Inactive 04/28/ Ortho MG / Hydrocodone exceed 4gm/day 2020 and Spine Bitartrate 10 MG of Oral Tablet acetaminophen. [[place] 10/325] (Same as: [place] 325/10) Acetaminophen 325 Notes: Do not Inactive 04/28/ Ortho MG / Oxycodone exceed 4gm/day 2020 an d Spine Hydrochloride 10 of MG Oral Tablet acetaminophen. [Percocet 10/325] (Same as: Percocet-10/325 ) ceFAZolin (ANES) Route: IV, Drug Inactive 04/28/ Ortho form: INJ, 2020 and Spine ONCE, Stop date: 04/28/20 10:34:00 DE[facility] INSTRUCTION phenylephrine Route: IV, Drug Inactive 04/28/ M H Ortho (ANES) form: INJ, 2020 and Spine ONCE, Stop date: 04/28/20 10:34:00 DE[place] OF INSTRUCTION ketAMINE (ANES) Route: IV, Drug Inactive 04/28/ MH Ortho form: INJ, 2020 and Spine ONCE, Stop date: 04/28/20 10:24:00 DE[place] OF INSTRUCTION midazolam (ANES) Route: IV, Drug Inactive 04/28/ Ortho form: SOLN, 2020 and Spine ONCE, Stop date: 04/28/20 10:19:00 DE[facility] OF INSTRUCTION fentaNYL (ANES) Route: IV, Drug Inactive 04/28/ Ortho form: INJ, 2020 and Spine ONCE, Stop date: 04/28/20 10:19:00 DEAN OF INSTRUCTION lidocaine (ANES) Route: IV, Drug Inactive 04/28/ Ortho form: INJ, 2020 and Spine ONCE, Stop date: 04/28/20 10:14:00 DE[facility] [place] INSTRUCTION propofol (ANES) Route: IV, Drug Inactive 04/28/ Ortho form: INJ, 2020 and Spine ONCE, Stop date: 04/28/20 10:14:00 DEAN OF INSTRUCTION propofol (ANES) Route: IV, Drug Inactive 04/28/ Ortho 10 mg form: INJ, 2020 and Spine Start date: 04/28/20 9:43:00 DEAN OF INSTRUCTION, Stop date: 04/28/20 10:43:00 [facility] Lactated Ringers Route: IV, Inactive 04/28/ Ortho Injection IV Total Volume: 2020 and [place] (ANES) 1000 mL 1,000, Start date: 04/28/20 9:34:00 DEAN OF INSTRUCTION, Stop date: 04/28/20 10:34:00 DEAN OF INSTRUCTION LR IV 1,000 mL 1,000 mL, Rate: Inactive 04/28/ Ortho 75 ml/hr, 2020 and Spine Infuse over: 13.3 hr, Route: IV, Dosing Weight 83.864 kg, Total Volume: 1,000, Start date: 04/28/20 8:15:00 DEAN OF INSTRUCTION, Duration: 30 day, Stop date: 05/28/20 8:14:00 DEAN OF INSTRUCTION, 1.93, m2, 0 celecoxib Notes: NSAID. Inactive 04/28/ Orth o Please check 2020 and Spine indication. Not for seizure. (Same As: CeleBREX) gabapentin Notes: (Same Inactive 04/28/ Orth o as: Neurontin) 2020 and Spine ropivacaine Notes: NOT Inactive 04/28/ Or tho FOR IV use 2020 and Spine Each mL contains: Ropivacaine 2.46 mg, Epinephrine 0.005 mg, Clonidine 0.0008 mg and Ketorolac 0.3 mg in Sodium Chloride Oxycontin Notes: Do not Inactive 04/28/ Orth o crush or chew. 2020 and Spine (Same as: OxyContin) Tylenol Notes: Max Inactive Ortho acetaminophen 2019 and Spine 4000 mg/day (4 gm/day). (Same as: Tylenol Extra Strength) Tranexamic Acid Notes: (Same Inactive Ortho As: 2020 and Spine Cyklokapron) Cefazolin 2 gm, 50 mL, Inactive Ortho Route: IVP, 2020 and Spine Drug form: INJ, ONCALL, Dosing Weight 83.892, kg, (Patients weighing < 120 kg), Start date: 04/28/20 8:00:00 DEAN OF INSTRUCTION, Duration: 1 doses or times, ABX Indication: Surgical Prophylaxis, 0 Vancomycin 2001 mg: Inactive Ortho infuse over 2.5 2019 and Spin e hours ropivacaine 0.5% 99 ml/hr, Inactive O rtho 246.25 mg + Route: 2020 and Spine EPINEPHrine 0.5 intra-ARTICULAR mg + cloNIDine 80 , ONCALL, Start microgram + date: 04/28/20 Sodium Chloride 5:00:00 DEAN [place] INSTRUCTION, 0.9% IV Stop date: 04/28/20 23:59:00 DEAN OF INSTRUCTION, 0 vancomycin Notes: FOR OR Inactive Ort ho USE ONLY 2019 and Spine polymyxin B Notes: (Same Inactive Ort ho sulfate + Sodium as: Polymyxin B 2019 and Spine Chloride 0.9% IV Sulfate) 250 mL omeprazole 20 mg 20 mg = 1 cap, Active Ortho oral delayed PO, Daily, 0 2019 and Sp ine release capsule Refill(s) Diclofenac Sodium 0 Refill(s) Active Ortho 10 MG/ML Topical 2019 and Spi ne Cream levothyroxine 112 112 microgram = Active Ortho mcg (0.112 mg) 1 cap, PO, 2020 and Sp ine oral capsule Daily, # 30 cap, 3 Refill(s) Escitalopram 40 mg, PO, Active Ortho Daily, 0 2020 and Spine Refill(s) ursodiol 300 mg 300 mg = 1 cap, Active [place] oral capsule PO, BID, # 180 2020 Medi richy cap, 0 Center Refill(s), Pharmacy: [facility], 154.94, cm, 10/30/19 23:53:00 CDT, Height, 82.841, kg, 10/30/19 23:53:00 CDT, Weight midodrine 5 mg 5 mg = 1 tab, Active oral tablet PO, TID, # [address] [facility] ast tab, 0 Refill(s), Pharmacy: [facility], 154.94, cm, 10/30/19 23:53:00 CDT, Height, 82.841, kg, 10/30/19 23:53:00 CDT, Weight Acetaminophen 325 1 tab, PO, Q4H, No Longer 10/14 MG / Hydrocodone PRN for pain, # Active 2019 [facility] Bitartrate 10 MG 60 tab, 0 Oral Tablet Refill(s), [[place] 10/325] given to patient 0.4 ML Enoxaparin 40 mg, SUB-Q, Active sodium 100 MG/ML Daily, X 9 day, 2019 Prefilled Syringe # 9 ea, 0 [Lovenox] Refill(s) Levothroid 125 microgram, Inactive 1 tab, Route: 2019 PO, Drug form: TAB, [id number], Dosing Weight 82.727, kg, Start date: 10/31/19 6:30:00 CDT, Duration: 30 day, Stop date: 11/29/19 6:30:00 CDT, 0 Vancomycin 2001 mg: Inactive infuse over 2.5 [facility] t hours For adult patients only: Round to nearest 250 mg per Medical Staff approval MEDICATION WASTE Product Size: 1000 mg Product Wasted: ___ mg Tylenol Notes: Max No Longer acetaminophen 2019 [facility] 4000 mg/day (4 gm/day). (Same as: Tylenol Extra Strength) Cefazolin Notes: (Same No Longer As: Ancef, 2019 [facility] Kefzol) MEDICATION WASTE Product Size: 1000 mg Product Wasted: ___ mg Zofran Notes: (Same No Longer as: Zofran) 2019 [facility] MEDICATION WASTE Product Size: 4 mg Product Wasted: ___ mg Midodrine Notes: (Same No Longer as:Proamatine) Active 2019 [facility] NS (Bolus) IV 250 mL, 250 Inactive ml/hr, Infuse 2019 [facility] Over: 1 hr, Route: IV, 250, Drug form: INJ, ONCE, Priority: STAT, Dosing Weight 82.727 kg, Start date: 10/30/19 17:51:00 CDT, Stop date: 10/30/19 17:51:00 CDT, 0 Tylenol Notes: Do not No Longer exceed [address] [place] [address] gm/day. (Same as: Tylenol) Roxicodone Notes: (Same No Longer as: Roxicodone) Active 2019 [facility] t Calcium Chloride 1,000 mL, Rate: Inactive 0.0014 MEQ/ML / 125 ml/hr, 2019 [facility] Potassium Infuse over: 8 Chloride 0.004 hr, Route: IV, MEQ/ML / Sodium Dosing Weight Chloride 0.103 82.727 kg, MEQ/ML / Sodium Total Volume: Lactate 0.028 1,000, Start MEQ/ML Injectable date: 10/30/19 Solution 15:52:00 CDT, Duration: 30 day, Stop date: 11/29/19 15:51:00 CDT, 1.92, m2 Acetaminophen 1,000 mg, Inactive Route: IVPB, 2019 [facility] Drug form: INJ, ONCE, Dosing Weight 82.727, kg, PRN Pain Score 1-3, Start date: 10/30/19 15:52:00 CDT Fentanyl 25 microgram, Inactive Route: IVP, 2019 [facility] Q5Min, Dosing Weight 82.727, kg, PRN Pain Score 4-6, Priority: Routine, Start date: 10/30/19 15:52:00 CDT, Duration: 4 doses or times, Stop date: Limited # of times Hydromorphone 0.5 mg, Route: Inactive IVP, Q5Min, 2019 [facility] Dosing Weight 82.727, kg, PRN Pain Score 7-10, Start date: 10/30/19 15:52:00 CDT, Duration: 4 doses or times, Stop date: Limited # of times Flumazenil 0.2 mg, Route: Inactive IVP, PRN, 2019 [facility] Dosing Weight 82.727, kg, PRN Benzodiazepine Reversal, Initial dose, Start date: 10/30/19 15:52:00 CDT, Duration: 30 day, Stop date: 11/29/19 15:51:00 CDT Naloxone 0.4 mg, Route: Inactive IVP, Q2MIN, 2019 [facility] Dosing Weight 82.727, kg, PRN Narcotic Reversal, Start date: 10/30/19 15:52:00 CDT, Duration: 8 doses or times, Stop date: Limited # of times Diphenhydramine 12.5 mg, Route: Inactive IVP, Drug form: 2019 [place]J, Q6H, Dosing Weight 82.727, kg, PRN Itching, Start date: 10/30/19 15:52:00 CDT, Duration: 30 day, Stop date: 11/29/19 15:51:00 CDT Meperidine 12.5 mg, Route: Inactive IVP, Q30Min, 2019 [facility] Dosing Weight 82.727, kg, PRN Other -See Comment, For shivering, Start date: 10/30/19 15:52:00 CDT, Duration: 2 doses or times, Stop date: Limited # of times Ondansetron 4 mg, Route: Inactive IVP, ONCE, 2019 [facility] Dosing Weight 82.727, kg, PRN Nausea & Vomiting, Start date: 10/30/19 15:52:00 CDT Promethazine 6.25 mg, Route: Inactive IVPB, ONCE, 2019 [facility] Dosing Weight 82.727, kg, PRN Nausea & Vomiting, Start date: 10/30/19 15:52:00 CDT 72 HR Scopolamine 1 patch, Route: Inactive 10/29 0.0139 MG/HR TOP, Drug Form: 2019 [place] Transdermal Patch ERFILM, Dosing Weight 82.727, kg, ONCE, Apply behind ear. Avoid use in elderly., Start date: 10/30/19 15:52:00 CDT, Stop date: 10/30/19 15:52:00 CDT Enoxaparin Notes: (Same No Longer as: Lovenox) 2019 [facility] vasopressin Route: IV, Drug Inactive (ANES) form: INJ, 2019 [facility] ONCE, Stop date: 10/30/19 14:57:00 CDT Insulin Lispro Notes: (Same No Longer as: Humalog) 2019 [facility] Roll in palms of hands gently; Do not shake vigorously. WASTE: F/P - Black; E - Municipal Trash Bin Stable for 28 days at room temperature. Expires in days from D ate 1/2 NS 1,000 mL 1,000 mL, Rate: No Longer 75 ml/hr, 2019 [facility] Infuse over: 13.3 hr, Route: IV, Dosing Weight 82.727 kg, Total Volume: 1,000, Start date: 10/30/19 14:55:00 CDT, Duration: 30 day, Stop date: 11/29/19 14:54:00 CDT, 1.92, m2, 0 Dextrose 50% 12.5 gm, 25 mL, No Longer H Syringe (D50W) Route: IVP, 2019 [facility] Drug Form: INJ, Dosing Weight 82.727, kg, PRN, PRN Blood Glucose Results, Start date: 10/30/19 14:55:00 CDT, Duration: 30 day, Stop date: 11/29/19 14:54:00 CDT, 0 Glucagon 1 mg, Route: No Longer IM, Drug form: 2019 [facility] PDR/INJ, PRN, Dosing Weight 82.727, kg, PRN Blood Glucose Results, Start date: 10/30/19 14:55:00 CDT, Duration: 30 day, Stop date: 11/29/19 14:54:00 CDT, 0 Acetaminophen 325 Notes: Do not No Longer MG / Hydrocodone exceed 4gm/day 2019 [facility] Bitartrate 10 MG of Oral Tablet acetaminophen. [[place] 10/325] (Same as: [place] 325/10) Acetaminophen 325 1 tab, Route: Inactive MG / Oxycodone PO, Dosing 2019 [facility] ast Hydrochloride 10 Weight 82.727, MG Oral Tablet kg, Q3H, PRN [Percocet 10/325] Pain Score 7-10, Start date: 10/30/19 14:55:00 CDT, Duration: 30 day, Stop date: 11/29/19 14:54:00 CDT Zofran Notes: (Same No Longer as: Zofran) Active 2019 [facility] MEDICATION WASTE Product Size: 4 mg Product Wasted: ___ mg Tranexamic Acid Notes: (Same Inactive As: 2019 Cyklokapron) Acetaminophen 325 Notes: (Same No Longer MG / Hydrocodone as: [place] Active 2019 [facility] Bitartrate 5 MG 325/5) Do not Oral Tablet exceed 4gm/day [[place] 5/325] of acetaminophen. calcium chloride Route: IV, Drug Inactive (ANES) form: [id number], Stop date: 10/30/19 14:41:00 CDT Sodium Chloride Route: IV, Inactive 0.9% IV (ANES) Total Volume: 2019 [place] 1000 mL 1,000, Start date: 10/30/19 14:30:00 CDT, Stop date: 10/30/19 15:30:00 CDT esmolol (ANES) Route: IV, Drug Inactive form: [id number], Stop date: 10/30/19 14:11:00 CDT glycopyrrolate Route: IV, Drug Inactive (ANES) form: [id number], Stop date: 10/30/19 14:11:00 CDT phenylephrine Route: IV, Drug Inactive 10/29/ M H (ANES) form: INJ2019, Stop date: 10/30/19 14:11:00 CDT dexamethasone Route: IV, Drug Inactive 10/29/ M H (ANES) form: [id number], Stop date: 10/30/19 13:40:00 CDT fentaNYL (ANES) Route: IV, Drug Inactive form: [id number], Stop date: 10/30/19 13:35:00 CDT rocuronium (ANES) Route: IV, Drug Inactive 10/29 form: INJ, 2019, Stop date: 10/30/19 13:30:00 CDT ceFAZolin (ANES) Route: IV, Drug Inactive form: INJ, 2019, Stop date: 10/30/19 13:25:00 CDT lidocaine (ANES) Route: IV, Drug Inactive form: INJ, 2019, Stop date: 10/30/19 13:05:00 CDT propofol (ANES) Route: IV, Drug Inactive form: INJ, 2019, Stop date: 10/30/19 13:05:00 CDT tranexamic acid Route: IV, Drug Inactive (ANES) 100 mg form: INJ, 2019 [facility] Start date: 10/30/19 13:02:00 CDT, Stop date: 10/30/19 14:02:00 CDT vancomycin (ANES) Route: IV, Drug Inactive 10/29 1000 mg form: INJ, 2019 [facility] Start date: 10/30/19 12:55:00 CDT, Stop date: 10/30/19 13:55:00 CDT midazolam (ANES) Route: IV, Drug Inactive form: SOLN, 2019, Stop date: 10/30/19 12:49:00 CDT Lactated Ringers Route: IV, Inactive Injection IV Total Volume: 2019 [facility] (ANES) 1000 mL 1,000, Start date: 10/30/19 12:14:00 CDT, Stop date: 10/30/19 13:14:00 CDT ropivacaine Notes: NOT No Longer FOR IV use Active 2019 [facility] Ropivacaine 5 mg/mL (49.25 mL) Epinephrine 1 mg/mL (0.5 mL) Clonidine 0.1 mg/mL (0.8 mL) Ketorolac 30 mg/mL (1 mL) Normal Saline 48.45 mL gabapentin 300 mg, Route: Inactive PO, ONCALL, 2019 Dosing Weight 82.727, kg, Start date: 10/30/19 9:00:00 CDT, Duration: 30 day, Stop date: 11/29/19 8:59:00 CDT ropivacaine 100 mL, Route: Inactive InFILtration(lo 2019[facility] richy), Drug Form: INJ, Dosing Weight 82.727, kg, ONCALL, Start date: 10/30/19 9:00:00 CDT, Duration: 30 day, Stop date: 11/29/19 8:59:00 CDT Oxycontin 10 mg, Route: Inactive PO, Drug form: 2019 [facility] ERTAB, ONCALL, Dosing Weight 82.727, kg, Start date: 10/30/19 9:00:00 CDT, Duration: 30 day, Stop date: 11/29/19 8:59:00 CDT Tylenol 1,000 mg, Inactive Route: PO, 2019 [facility] ONCALL, Dosing Weight 82.727, kg, Start date: 10/30/19 9:00:00 CDT, Duration: 30 day, Stop date: 11/29/19 8:59:00 CDT Cefazolin Notes: (Same No Longer As: Ancef, Active 2019 [facility] Kefzol) MEDICATION WASTE Product Size: 1000 mg Product Wasted: ___ mg Vancomycin 2001 mg: No Longer infuse over 2.5 [facility] hours For adult patients only: Round to nearest 250 mg per Medical Staff approval MEDICATION WASTE Product Size: 1000 mg Product Wasted: ___ mg Calcium Chloride 1,000 mL, Rate: Inactive 0.0014 MEQ/ML / 75 ml/hr, [facility] Potassium Infuse over: Chloride 0.004 13.3 hr, Route: MEQ/ML / Sodium IV, Dosing Chloride 0.103 Weight 82.727 MEQ/ML / Sodium kg, Total Lactate 0.028 Volume: 1,000, MEQ/ML Injectable Start date: Solution 10/30/19 8:28:00 CDT, Duration: 30 day, Stop date: 11/29/19 8:27:00 CDT, 1.92, m2 1 ML alirocumab See Active 75 MG/ML Instructions, 2019 [facility] Auto-Injector SUB-Q, 0 [Praluent] Refill(s) empagliflozin 10 10 mg = 1 tab, Active MG Oral Tablet PO, QAM, [address] [facility] ast [Jardiance] Refill(s) Vitamin D3 See Active Instructions, 2019 [facility] Daily, 0 Refill(s) ursodiol 300 mg 300 mg = 1 cap, Active [place] oral capsule PO, BID, # 180 2019 [facility] cap, 0 Center Refill(s), Pharmacy: [facility] Smoothie 450 mL, Susp, Inactive [facility] Readi-Cat 2 Oral, Once, 2019 first dose 08/02/19 13:00:00 CDT, stop date 08/02/19 13:00:00 CDT, Out-Patient Saline Lock Flush 10 mL, Soln, IV No Longer 07/14 9/ [facility] Push, As Active 2019 Indicated PRN for flush, first dose 08/02/19 12:59:00 CDT Aspirin 81 MG 81 mg = 1 tab, Active Chewable Tablet PO, Daily, tab, 2017 0 Refill(s) Docusate Sodium 100 mg = 1 cap, Active 100 MG Oral PO, BID, # 20 2017 [facility] est Capsule [Colace] cap, 0 Refill(s) Methocarbamol 750 750 mg = 1 tab, No Longer 05/17 5/ MH MG Oral Tablet PO, Q6H, PRN Active 2017 [place] [Robaxin] Spasms, X 10 day, # 40 tab, 0 Refill(s) tramadol 50 mg = 1 tab, No Longer hydrochloride 50 PO, Q6H, PRN Active 2017 [place] MG Oral Tablet Pain, X 10 day, # 40 tab, 0 Refill(s) Levothroid Notes: Take 1 Inactive hour before or 2017 2 hours after meal; Enteral feeds may interefere with the absorption of this medication. (Same as:Levothroid) Escitalopram Notes: (Same Inactive as: Lexapro) 2017 aspirin 325 mg Notes: Take Inactive tablet with food. 2018 [facility] Benadryl Notes: (Same No Longer as: Benadryl) Active 2018 [facility] Dextrose 50% 12.5 gm, 25 mL, No Longer H Syringe Route: IVP, Active 2017 [facility] Drug Form: INJ, Dosing Weight 85, kg, PRN, PRN Blood Glucose Results, Start date: 06/08/17 17:01:00 DEAN OF INSTRUCTION, Duration: 30 day, Stop date: 07/08/17 17:00:00 DEAN OF INSTRUCTION Glucagon 1 mg, Route: No Longer IM, Drug form: Active 2017 [facility] PDR/INJ, PRN, Dosing Weight 85, kg, PRN Blood Glucose Results, Start date: 06/08/17 17:01:00 DEAN OF INSTRUCTION, Duration: 30 day, Stop date: 07/08/17 17:00:00 DEAN OF INSTRUCTION Insulin Lispro Notes: (Same No Longer as: Humalog ) Active 2017 [facility] Roll in palms of hands gently; Do not shake `vigorously. "Single Patient Use Only " WASTE: F/P - Black; E - Municipal Trash Bin Stable for 28 days at room temperature. Expires in days from D ate Levalbuterol Notes: Same as No Longer Xopenex HFA Active 2017 [facility] WASTE: Aerosol - Return to Pharmacy Docusate Notes: (Same No Longer as: Colace) (Do Active 2017 Jorge t Not Crush) ceFAZolin + Notes: (Same Inactive sterile water 20 As: Ancef, 2017 [place] mL Kefzol) MEDICATION WASTE Product Size: 1000 mg Product Wasted: ___ mg Cefazolin 1 gm, Route: Inactive IVPB, Drug 2017 [facility] form: INJ, Q8H, Dosing Weight 85.3, kg, Start date: 06/08/17 16:00:00 DEAN OF INSTRUCTION, Duration: 1 doses or times, Stop date: 06/08/17 16:00:00 DEAN OF INSTRUCTION, ABX Indication: Surgical Prophylaxis ondansetron Route: IV, Drug Inactive (ANES) form: INJ, 2017 [facility] ONCE, Stop date: 06/08/17 10:04:00 DEAN OF INSTRUCTION famotidine (ANES) Route: IV, Drug Inactive 06/08 form: INJ, 2017 [facility] ONCE, Stop date: 06/08/17 10:04:00 DEAN OF INSTRUCTION neostigmine Route: IV, Drug Inactive (ANES) form: INJ, 2017 [facility] ONCE, Stop date: 06/08/17 10:04:00 DEAN OF INSTRUCTION glycopyrrolate Route: IV, Drug Inactive (ANES) form: INJ, 2017 [facility] ONCE, Stop date: 06/08/17 10:04:00 DEAN OF INSTRUCTION Insulin Lispro Notes: (Same Inactive as: Humalog ) 2017 [facility] Roll in palms of hands gently; Do not shake `vigorously. "Single Patient Use Only " WASTE: F/P - Black; E - Municipal Trash Bin Stable for 28 days at room temperature. Expires in days from D ate Dextrose 50% 12.5 gm, 25 mL, Inactive Syringe Route: IVP, 2017 [facility] Drug Form: INJ, Dosing Weight 85.3, kg, PRN, PRN Blood Glucose Results, Start date: 06/08/17 10:03:00 DEAN OF INSTRUCTION, Duration: 30 day, Stop date: 07/08/17 10:02:00 DE[facility] INSTRUCTION Glucagon 1 mg, Route: Inactive IM, Drug form: 2017 [facility] PDR/INJ, PRN, Dosing Weight 85.3, kg, PRN Blood Glucose Results, Start date: 06/08/17 10:03:00 DEAN OF INSTRUCTION, Duration: 30 day, Stop date: 07/08/17 10:02:00 DEAN OF INSTRUCTION Bisacodyl Notes: (Same No Longer As: Dulcolax, Active 2017 [facility] Correctol) (Do Not Crush) "Do Not Crush" Dexamethasone Notes: Inactive Concentration: 2017 [facility] 4mg/ml Methocarbamol Notes: (Same No Longer as:Robaxin) Active 2017 [facility] Acetaminophen 325 Notes: Same as Inactive MG / Hydrocodone [place] 325-7.5mg 2017 [facility] Bitartrate 7.5 MG Do not exceed Oral Tablet 4gm/day of [[place] 7.5/325] acetaminophen. Oxycodone Notes: (Same No Longer Hydrochloride 5 as: Roxicodone) Active 2017 [facility] MG Oral Tablet Aluminum 30 mL, Route: Inactive Hydroxide / PO, Dosing 2017 [facility] magnesium Weight 85.3, carbonate kg, Q4H, PRN as needed for indigestion, Start date: 06/08/17 9:59:00 DEAN OF INSTRUCTION Maalox Advanced Notes: No Longer Regular Strength (aluminum Active 2017 [facility] SUSP hydroxide-magne sium hyd-simethicone [phone]/5m l 30 ml ud [place]) Zofran Notes: (Same No Longer as: Zofran) Active 2017 [facility] MEDICATION WASTE Product Size: 4 mg Product Wasted: ___ mg Meperidine Notes: (Same No Longer as: Demerol) Active 2017 [facility] "Use Precaution in Elderly, Seizure disorders, and Renal impairment&quot ; Phenergan Notes: Do not No Longer give IV push. Active 2017 [facility] (Same as: Phenergan) Temazepam Notes: (Same No Longer As: Restoril) Active 2017 [facility] Acetaminophen Notes: Do not No Longer exceed 4 Active 2017 [facility] gm/day. (Same as: Tylenol) 1/2NS + KCL Notes: PREMIX No Longer 20mEq/L 1000ml IV - Do Not Active 2017 [facility] (Premix) 1,000 mL Alter WASTE: F/P - Sink; E - Municipal Trash Bin tramadol Notes: Not to No Longer hydrochloride 50 exceed Active 2017 [facility] [address] MG Oral Tablet 400mg/day. [Ultram] (Same As: Ultram) Ondansetron 4 mg, Route: Inactive IVP, Drug form: 2017 [facility] t INJ, ONCE, Dosing Weight 85.3, kg, PRN Nausea & Vomiting, Start date: 06/08/17 9:52:00 DEAN OF INSTRUCTION Flumazenil Notes: (Same Inactive as: Romazicon) 2017 [facility] Naloxone Notes: Same as Inactive Narcan 2017 [facility] Atropine Notes: Inactive MEDICATION 2017 [facility] WASTE Product Size: 1 mg Product Wasted: ___ mg Ephedrine Notes: final Inactive concentration 5 2017 [facility] t mg/mL Oxycodone Notes: (Same Inactive as: 2017 [facility] 'Roxicodone) Fentanyl Notes: (Same Inactive as: Sublimaze) 2017 [facility] Preservative free. Labetalol Notes: (Same Inactive as: Normodyne, 2017 [facility] Trandate) Push over 2 minutes Give bolus over 2-3 minutes. Hydromorphone 0.5 mg, 0.5 mL, Inactive H Route: IVP, 2017 [facility] Drug form: INJ, Q5Min, Dosing Weight 85.3, kg, PRN Pain Score 7-10, Start date: 06/08/17 9:52:00 DEAN OF INSTRUCTION, Duration: 4 doses or times, Stop date: Limited # of times Acetaminophen Notes: Infuse Inactive over 15 minutes 2017 [facility] Do not exceed 4gm/day of acetaminophen MEDICATION WASTE Product Size: 1000 mg Product Wasted: ___ mg dexamethasone Route: IV, Drug Inactive H (ANES) form: INJ, 2017 [facility] , Stop date: 06/08/17 9:44:00 DEAN OF INSTRUCTION hydromorphone Route: IV, Drug Inactive H (ANES) form: INJ, 2017 [facility] , Stop date: 06/08/17 9:39:00 DE[facility] OF INSTRUCTION lidocaine (ANES) Route: IV, Drug Inactive form: INJ2017 [facility] , Stop date: 06/08/17 9:39:00 DEAN OF INSTRUCTION rocuronium (ANES) Route: IV, Drug Inactive 06/08 form: INJ, 2017 [facility] , Stop date: 06/08/17 9:34:00 DEAN OF INSTRUCTION propofol (ANES) Route: IV, Drug Inactive form: INJ, 2017 [facility] , Stop date: 06/08/17 9:34:00 DEAN OF INSTRUCTION fentaNYL (ANES) Route: IV, Drug Inactive form: INJ2017 [facility] , Stop date: 06/08/17 9:34:00 DEAN OF INSTRUCTION midazolam (ANES) Route: IV, Drug Inactive form: SOLN, 2017 [facility] ONCE, Stop date: 06/08/17 9:34:00 DEAN OF INSTRUCTION ceFAZolin (ANES) Route: IV, Drug Inactive form: INJ, 2017 [facility] ONCE, Stop date: 06/08/17 9:34:00 DEAN OF INSTRUCTION Isolyte S PH 7.4 Route: IV, Inactive (ANES) 1000 mL Total Volume: 2017 [facility] 1,000, Start date: 06/08/17 8:23:00 DEAN OF INSTRUCTION, Stop date: 06/08/17 9:23:00 DEAN OF INSTRUCTION escitalopram 20 20 mg = 1 tab, Active H mg oral tablet PO, Daily, # 30 2018 [facility] tab, 0 Refill(s) Aspirin 325 MG 325 mg = 1 tab, No Longer Enteric Coated PO, Daily, # 30 Active 2017 [facility] Tablet tab, 0 Refill(s) Loratadine 10 MG 10 mg = 1 tab, No Longer Oral Tablet PO, Daily, # 7 Active 2017 [facility] [Claritin] tab, 0 Refill(s) 1 ML alirocumab 75 mg, SUB-Q, 0 No Longer 75 MG/ML Refill(s) Active 2017 [facility] Auto-Injector [Praluent] 200 ACTUAT ASPIRIN, Active Levalbuterol INHALATION, [address] [facility] [address] 0.045 MG/ACTUAT Q6H, PRN Cough, Metered Dose wheezing, Inhaler [Xopenex] shortness of breath, # 15 gm, 2 Refill(s) Vitamin D3 2000 2,000 IntlUnit No Longer intl units oral = 1 tab, PO, Active 2017 [facility] tablet Daily, 0 Refill(s) Levothyroxine 125 microgram = Active Sodium 0.125 MG 1 tab, PO, 2017 [facility] Oral Tablet Daily, # 30 [Levothroid] tab, 0 Refill(s) Metformin LEVOTHYRO, PO, No Longer hydrochloride 500 Daily, take Active 2017 [facility] Oral Tablet with a meal, # 30 tab, 1 Refill(s) tramadol 50 mg = 1 tab, Active hydrochloride 50 PO, Q6H, Pain, 2014 [facility] Oral Tablet # 40 tab, 0 [Ultram] Refill(s), called to pharmacy methocarbamol 750 750 mg = 1 tab, Active mg oral tablet PO, Q6H, Muscle 2014 [facility] Spasms, # 40 tab, 0 Refill(s), given to patient Docusate Sodium 100 mg = 1 cap, Active 100 MG Oral PO, BID, # 20 2014 [facility] est Capsule cap, 0 Refill(s), given to patient tramadol 50 mg = 1 tab, Inactive hydrochloride 50 PO, Q6H, Pain, 2014 [facility] Oral Tablet 0 Refill(s) [Ultram] Thyroxine Notes: Take 1 Inactive hour before or 2014 2 hours after meal; Enteral feeds may interefere with the absorption of this medication. (Same as:Synthroid) methocarbamol 750 750 mg = 1 tab, Inactive 05/23 mg oral tablet PO, Q6H, Muscle 2014 [facility] Spasms, 0 Refill(s) 10 ML Cefazolin Notes: Same as: Inactive 100 MG/ML Ancef 2014 Prefilled Syringe Potassium Notes: (Same Inactive Chloride as: K-Dur 20) 2014 "Do Not Crush" With food and full glass of water Docusate Notes: (Same No Longer as: Colace) (Do Active 2014[facility] t Not Crush) dexamethasone Notes: Give Inactive with food. 2014 (Same As: Decadron) 10 ML Cefazolin 1 gm, Route: Inactive 100 MG/ML IVPB, Drug 2014 Pref[facility] Syringe form: INJ, Q8H, Dosing Weight 83.1, kg, Start date: 05/22/14 16:00:00, Duration: 1 doses or times, Stop date: 05/22/14 16:00:00 Insulin, Aspart, Notes: Roll in No Longer Human palms of hands Active 2014 gently; Do not shake vigorously. (Same as: NovoLOG) "single patient use only" Stable for 28 days at room temperature. Expires in days from D ate Dextrose 50% 25 gm, 50 mL, No Longer Syringe Route: IVP, Active 2014 [facility] Drug Form: INJ, Dosing Weight 83.1, kg, PRN, PRN Blood Glucose Results, Start date: 05/22/14 13:48:00, Duration: 30 day, Stop date: 06/21/14 13:47:00 Glucagon 1 mg, Route: No Longer IM, Drug form: Active 2014 [facility] PDR/INJ, PRN, Dosing Weight 83.1, kg, PRN Blood Glucose Results, Start date: 05/22/14 13:48:00, Duration: 30 day, Stop date: 06/21/14 13:47:00 Maalox Advanced Notes: No Longer Regular Strength (aluminum Active 2014 [facility] SUSP hydroxide-magne sium hyd-simethicone [phone]/5m l 30 ml ud [place]) Bisacodyl Notes: (Same No Longer As: Dulcolax, Active 2014 [facility] Correctol) (Do Not Crush) "Do Not Crush" Methocarbamol Notes: (Same No Longer as:Robaxin) Active 2014 [facility] Dexamethasone 4 mg, Route: Inactive IVP, ONCE, 2014 [facility] Dosing Weight 83.1, kg, Start date: 05/22/14 13:45:00, Stop date: 05/22/14 13:45:00 Temazepam Notes: (Same No Longer As: Restoril) Active 2014 [facility] Zofran Notes: (Same No Longer as: Zofran) Active 2014 [facility] Meperidine Notes: (Same No Longer as: Demerol) Active 2014 [facility] "Use Precaution in Elderly, Seizure disorders, and Renal impairment&quot ; Acetaminophen Notes: Do not No Longer exceed 4 Active 2014 [facility] gm/day. (Same as: Tylenol) Phenergan Notes: Do not No Longer give IV push. Active 2014 [facility] (Same as: Phenergan) Acetaminophen Notes: Same as No Longer 05/22/ H 21.7 MG/ML / [place] 325-7.5mg Active 2014 [facility] Hydrocodone Do not exceed Bitartrate 0.5 4gm/day of MG/ML Oral acetaminophen. Solution tramadol Notes: Not to No Longer hydrochloride 50 exceed Active 2014 [facility] [address] MG Oral Tablet 400mg/day. [Ultram] (Same As: Ultram) 1/2NS + KCL 1,000 mL, Rate: No Longer 20mEq/L 1000ml 75 ml/hr, Active 2014 [facility] [address] (Premix) 1,000 mL Infuse over: 13.3 hr, Route: IV, Dosing Weight 83.1 kg, Total Volume: 1,000, Start date: 05/22/14 13:45:00, Duration: 30 day, Stop date: 06/21/14 13:44:00 Flumazenil Notes: (Same No Longer as: Romazicon) Active 2014 [facility] Naloxone Notes: Same as No Longer Narcan Active 2014 [facility] Fentanyl Notes: (Same No Longer as: Sublimaze) Active 2014 [facility] Preservative free. Hydromorphone 0.5 mg, Route: Inactive IVP, Q5Min, 2014 [facility] Dosing Weight 83.1, kg, PRN Pain Score 7-10, Start date: 05/22/14 13:41:00, Duration: 4 doses or times, Stop date: Limited # of times Ondansetron 4 mg, Route: Inactive IVP, ONCE, 2014 [facility] Dosing Weight 83.1, kg, PRN Nausea & Vomiting, Start date: 05/22/14 13:41:00 Acetaminophen 1,000 mg, Inactive Route: IVPB, 2014 [facility] Drug form: INJ, ONCE, Dosing Weight 83.1, kg, PRN Pain Score 1-3, Start date: 05/22/14 13:41:00, Duration: 1 doses or times, Stop date: Limited # of times Unknown Home PO, Daily, Active Medication Refill(s) 0 2013 [facility] Vitamin D PO, Daily, 0 Active Refill(s) 2013 [facility] cetirizine PO, Daily, 0 Active hydrochloride 10 Refill(s) 2013 [facility] MG Oral Tablet [Zyrtec] tramadol PO, 0 Refill(s) No Longer 12/30/ hydrochloride 50 Active 2013 [facility] MG Oral Tablet levothyroxine 88 PO, Daily, 0 Active mcg (0.088 mg) Refill(s) [address] [facility] [address] oral tablet Allergies, Adverse Reactions, Alerts Substance Category Reaction Severity Reaction Status Date Comments S ource type Reported codeine Assertion Drug Active O rtho allergy 5 and Spine iodine Assertion Drug Active [place] topical allergy [address] [place] [address] morphine Assertion Drug Active [place] allergy [address] [place] [address] Relafen Assertion hives Drug Active [facility] allergy and Spine Cipro Assertion Drug Active [facility] allergy and Spine iodine Assertion Drug Active [facility] allergy and Spine Levaquin Assertion Drug Active Or tho allergy and Spine NSAIDs Assertion Drug Active [facility] allergy and Spine topiramate Assertion Drug Active Ortho allergy and Spine Food Assertion Food Active PECANS Ort ho Nuts<sup>1</ allergy and sup> Spine Immunizations Immunization Date Site Status Last Comments Source Given Updated pneumococcal Left completed [facility] 23-valent 5 deltoid Neuro, vaccine [facility], [facility], [facility] [place],[facility] influenza virus Right completed Sp Perez her vaccine, 5 deltoid Neuro, inactivated [facility], [facility], [facility] [place],[facility] Results Order Name Results Value Reference Date Interpretation Comments Reny rce Range CHEM PANEL Glucose Lvl 129 70 - 99 04/28 [facility] CHEM PANEL BUN 10 7 - 22 04/28 [facility] CHEM PANEL Creatinine 0.81 0.50 - 12 Ortho Lvl 1.40 /2019 and Spine CHEM PANEL Sodium Lvl 139 135 - 145 04/28 Ortho /2020 and Spine CHEM PANEL Potassium 4.5 3.5 - 5.1 04/28 Ortho Lvl /2020 and Spine CHEM PANEL Chloride Lvl 103 95 - 109 04/28 Orth o /2019 and Spine CHEM PANEL CO2 28 24 - 32 04/28 [facility] CHEM PANEL Calcium Lvl 8.8 8.5 - 10.5 12/14 [facility] ho /2020 and Spine CHEM PANEL AGAP 12.5 10.0 - 04/28 [facility] 20.0 /2020 and Spine CHEM PANEL eGFR 78 04/28 Result [facility] /2020 Comment: The and Spine eGFR is calculated using the CKD-EPI formula. In most young, healthy individuals the eGFR will be >90 mL/min/1.73m2 . The eGFR declines with age. An eGFR of 60-89 may be normal in some populations, particularly the elderly, for whom the CKD-EPI formula has not been extensively validated. Use of the eGFR is not recommended in the following populations:< br/>
Camila viduals with unstable creatinine concentration s, including patients and those with serious co-morbid conditions.<b r/>
Patie nts with extremes in muscle mass or diet.

The data above are obtained from the National Kidney Disease Education Program (NKDEP) which additionally recommends that when the eGFR is used in patients with extremes of body mass index for purposes of drug dosing, the eGFR should be multiplied by the estimated BMI. HEMATOLOGY Segs 30.3 45.0 - 04/28 [facility] 75.0 /2020 and Spine HEMATOLOGY Lymphocytes 58.8 20.0 - 04/28 [facility] 40.0 /2020 and Spine HEMATOLOGY Monocytes 6.7 2.0 - 12.0 04/28 [facility] /2020 and Spine HEMATOLOGY Eosinophils 3.3 0.0 - 4.0 04/28 [facility] /2020 and Spine HEMATOLOGY Basophils 0.9 0.0 - 1.0 04/28 [facility] /2020 and Spine HEMATOLOGY Neutrophils 3.0 1.5 - 8.1 04/28 [facility] # /2020 and Spine HEMATOLOGY Lymphocytes 5.7 1.0 - 5.5 04/28 [facility] # /2020 and Spine HEMATOLOGY Monocytes # 0.7 0.0 - 0.8 04/28 [facility] /2020 and Spine HEMATOLOGY Eosinophils 0.3 0.0 - 0.5 04/28 [facility] # /2020 and Spine HEMATOLOGY Basophils # 0.1 0.0 - 0.2 04/28 [facility] /2020 and Spine HEMATOLOGY WBC 9.7 3.7 - 10.4 04/28 [facility] /2020 and Spine HEMATOLOGY RBC 4.49 4.20 - 04/28 [facility] 5.40 /2020 and Spine HEMATOLOGY Hgb 13.7 12.0 - 12/ [facility] 16.0 /2019 and Spine HEMATOLOGY Hct 41.5 36.0 - 04/28 [facility] 48.0 /2019 and Spine HEMATOLOGY MCV 92.3 80.0 - 04/28 [facility] 98.0 /2019 and Spine HEMATOLOGY MCH 30.4 27.0 - 04/28 [facility] 31.0 /2019 and Spine HEMATOLOGY MCHC 33.0 32.0 - 04/28 [facility] 36.0 /2019 and Spine HEMATOLOGY RDW 14.1 11.5 - 04/28 [facility] 14.5 /2019 and Spine HEMATOLOGY Platelet 360 133 - 450 04/28 [facility] /2019 and Spine HEMATOLOGY MPV 7.0 7.4 - 10.4 04/28 [facility] and Spine IMMUNOLOGY Coronavirus Not Detected Not 04/24 [facility] O rtho (COVID-19) (04/24/20 11:19 AM) Detected and Spine SHARMIN BLOOD BANK ABO/Rh O NEG 04/24 [facility] RESULTS /2019 and Spine BLOOD BANK Antibody Negative 04/24 [facility] RESULTS Scrn (04/24/20 10:08 AM) /2019 and Spine CHEM PANEL Glucose Lvl 125 70 - 99 / [facility] Sp[facility] CHEM PANEL BUN 11 7 - 22 04/24 [facility] CHEM PANEL Creatinine 0.80 0.50 - 04/24 [facility] Lvl 1.40 and Spine CHEM PANEL Sodium Lvl 142 135 - 145 / [facility] CHEM PANEL Potassium 4.2 3.5 - 5.1 /10 [facility] Lvl /2019 and Spine CHEM PANEL Chloride Lvl 103 95 - 109 04/24 [facility] /2019 and Spine CHEM PANEL CO2 31 24 - 32 /10 [facility] /2020 and Spine CHEM PANEL Calcium Lvl 8.8 8.5 - 10.5 /10 [facility] Ort ho /2019 and Spine CHEM PANEL AGAP 12.2 10.0 - 1210 [facility] 20.0 and Spine CHEM PANEL eGFR 79 / Result [facility] /2019 Comment: The and Spine eGFR is calculated using the CKD-EPI formula. In most young, healthy individuals the eGFR will be >90 mL/min/1.73m2 . The eGFR declines with age. An eGFR of 60-89 may be normal in some populations, particularly the elderly, for whom the CKD-EPI formula has not been extensively validated. Use of the eGFR is not recommended in the following populations:< br/>
Camila viduals with unstable creatinine concentration s, including patients and those with serious co-morbid conditions.<b r/>
Patie nts with extremes in muscle mass or diet.

The data above are obtained from the National Kidney Disease Education Program (NKDEP) which additionally recommends that when the eGFR is used in patients with extremes of body mass index for purposes of drug dosing, the eGFR should be multiplied by the estimated BMI. CHEM PANEL Vitamin D, 29 30 - 100 04/24 Result [facility] 25-OH, Total /2019 Comment: and Spine Vitamin D Status 25-OH Vitamin D:

Deficien cy: <20 ng/mL
Ins ufficiency: 20 - 29 ng/mL
Opt imal: > or = 30 ng/mL

For 25-OH Vitamin D testing on patients on
D2-quintana pplementation and patients for whom quantitation
of D2 and D3 fractions is required, the [employer]( TM)
25-OH VIT D, (D2,D3), LC/MS/MS is recommended: order
code 17820 (patients >2yrs).
S ee Note 1

Note 1

For additional information, please refer to
[email or web address] [email or web address]
(This link is being provided for informational /
educati onal purposes only.)
<b r/>Lab test performed by:
[facility]
[address] [place] [address]
[place] [address]
ALVAREZ BUENO MD CHEM PANEL Albumin Lvl 3.5 3.5 - 5.0 04/24 [facility] /2019 and Spine HEMATOLOGY WBC 6.6 3.7 - 10.4 04/24 [facility] /2020 and Spine HEMATOLOGY RBC 4.60 4.20 - 12/10 [facility] 5.40 /2020 and Spine HEMATOLOGY Hgb 13.9 12.0 - 12/10 [facility] 16.0 /2020 and Spine HEMATOLOGY Hct 42.2 36.0 - 12/10 [facility] 48.0 /2020 and Spine HEMATOLOGY MCV 91.7 80.0 - 12/10 [facility] 98.0 /2020 and Spine HEMATOLOGY MCH 30.2 27.0 - 12/10 [facility] 31.0 /2020 and Spine HEMATOLOGY MCHC 32.9 32.0 - 12/10 [facility] 36.0 /2020 and Spine HEMATOLOGY RDW 14.5 11.5 - 12/10 [facility] 14.5 /2020 and Spine HEMATOLOGY Platelet 399 133 - 450 12/10 [facility] /2020 and Spine HEMATOLOGY MPV 7.4 7.4 - 10.4 12/10 [facility] /2020 and Spine HEMATOLOGY PROTIME 12.5 12.0 - 12/10 [facility] 14.7 /2020 and Spine HEMATOLOGY INR 0.93 0.85 - 1210 [facility] 1.17 /2019 and Spine HEMATOLOGY aPTT 31.2 22.9 - 12/10 [facility] 35.8 /2020 and Spine HEMATOLOGY Segs 56.2 45.0 - 12/10 [facility] 75.0 /2020 and Spine HEMATOLOGY Lymphocytes 34.8 20.0 - 12/10 [facility] 40.0 /2020 and Spine HEMATOLOGY Monocytes 5.9 2.0 - 12.0 10 [facility] /2020 and Spine HEMATOLOGY Eosinophils 2.6 0.0 - 4.0 04/24 Orth o /2020 and Spine HEMATOLOGY Basophils 0.5 0.0 - 1.0 04/24 [facility] /2020 and Spine HEMATOLOGY Neutrophils 3.7 1.5 - 8.1 10 [facility] # /2020 and Spine HEMATOLOGY Lymphocytes 2.3 1.0 - 5.5 10 [facility] # /2020 and Spine HEMATOLOGY Monocytes # 0.4 0.0 - 0.8 10 Orth o /2020 and Spine HEMATOLOGY Eosinophils 0.2 0.0 - 0.5 10 Orth o # /2020 and Spine SPECIAL Hgb A1C 6.6 <=5.6 % 04/24 Ortho CHEMISTRY /2019 and Spine URINE AND UA Color Yellow Yellow 04/24 Ortho STOOL *NA* /2019 and Spine (04/24/20 10:08 AM) URINE AND UA Turbidity Clear Clear 04/24 Ortho STOOL (04/24/20 10:08 AM) and Spine URINE AND UA Spec Grav <=1.005 <=1.030 04/24 Ortho STOOL *NA* /2019 and Spine (04/24/20 10:08 AM) URINE AND UA pH 6.0 5.0 - 8.0 04/24 Ortho STOOL and Spine URINE AND UA Protein Negative Negative 04/24 Ortho STOOL (04/24/20 10:08 AM) and Spine URINE AND UA Glucose 250 mg/dL Negative 04/24 Ortho STOOL mg/dL and Spine URINE AND UA Ketones Negative Negative 04/24 Ortho STOOL *NA* and Spine (04/24/20 10:08 AM) URINE AND UA Bili Negative Negative 04/24 Ortho STOOL *NA* and Spine (04/24/20 10:08 AM) URINE AND UA Blood Negative Negative 04/24 Ortho STOOL (04/24/20 10:08 AM) and Spine URINE AND UA 0.2 0.1 - 1.0 04/24 Ortho STOOL Urobilinogen /2019 and Spine URINE AND UA Nitrite Negative Negative 04/24 Ortho STOOL (04/24/20 10:08 AM) and Spine URINE AND UA Leuk Est Negative Negative 04/24 Ortho STOOL (04/24/20 10:08 AM) and Spine URINE AND Micro? Performed 04/24 Ortho STOOL (04/24/20 10:08 AM) and Spine URINE AND UA Sq Epi Few /LPF Few /LPF 04/24 Ortho STOOL and Spine URINE AND UA WBC 0-2 /HPF None Seen 04/24 Ortho STOOL /HPF /2019 and Spine URINE AND UA RBC 0-2 /HPF 0 - 2 04/24 Ortho STOOL and Spine URINE AND UA Bacteria Few /HPF None Seen 04/24 Orth o STOOL /HPF /2019 and Spine CHEM PANEL Glucose Lvl 173 70 - 99 10/30 [facility] CHEM PANEL BUN 11 7 - 22 10/30 [facility] CHEM PANEL Creatinine 0.85 0.50 - 10/30 [facility] Lvl 1.40 /2019 [facility] CHEM PANEL Sodium Lvl 136 135 - 145 10/30 [facility] CHEM PANEL Potassium 4.5 3.5 - 5.1 10/30 MH Lvl /2019 [facility] CHEM PANEL Chloride Lvl 103 95 - 109 10/30 [facility] CHEM PANEL CO2 30 24 - 32 10/30 [facility] CHEM PANEL Calcium Lvl 8.2 8.5 - 10.5 10/30 [facility] CHEM PANEL AGAP 7.5 10.0 - 10/30 MH 20.0 [facility] CHEM PANEL eGFR 73 10/30 Result Comment: The [facility] eGFR is calculated using the CKD-EPI formula. In most young, healthy individuals the eGFR will be >90 mL/min/1.73m2 . The eGFR declines with age. An eGFR of 60-89 may be normal in some populations, particularly the elderly, for whom the CKD-EPI formula has not been extensively validated. Use of the eGFR is not recommended in the following populations:< br/>
Camila viduals with unstable creatinine concentration s, including patients and those with serious co-morbid conditions.<b r/>
Patie nts with extremes in muscle mass or diet.

The data above are obtained from the National Kidney Disease Education Program (NKDEP) which additionally recommends that when the eGFR is used in patients with extremes of body mass index for purposes of drug dosing, the eGFR should be multiplied by the estimated BMI. HEMATOLOGY WBC 11.0 3.7 - 10.4 10/30 [facility] HEMATOLOGY RBC 3.47 4.20 - 10/30 MH 5.40 [facility] HEMATOLOGY Hgb 10.6 12.0 - 10/30 MH 16.0 [facility] HEMATOLOGY Hct 31.7 36.0 - 10/30 MH 48.0 [facility] HEMATOLOGY MCV 91.3 80.0 - 10/30 MH 98.0 [facility] HEMATOLOGY MCH 30.6 27.0 - 10/30 MH 31.0 [facility] HEMATOLOGY MCHC 33.6 32.0 - 10/30 MH 36.0 [facility] HEMATOLOGY RDW 13.8 11.5 - 10/30 MH 14.5 [facility] HEMATOLOGY Platelet 243 133 - 450 10/30 [facility] HEMATOLOGY MPV 6.8 7.4 - 10.4 10/30 [facility] HEMATOLOGY Segs 83.6 45.0 - 06/17 MH 75.0 /2019 [facility] HEMATOLOGY Lymphocytes 11.1 20.0 - 10/30 MH 40.0 /2019 [facility] HEMATOLOGY Monocytes 5.3 2.0 - 12.0 10/30 MH /2019 [facility] HEMATOLOGY Neutrophils 9.2 1.5 - 8.1 10/30 MH # /2019 [facility] HEMATOLOGY Lymphocytes 1.2 1.0 - 5.5 10/30 MH # /2019 [facility] HEMATOLOGY Monocytes # 0.6 0.0 - 0.8 10/30 MH /2019 [facility] HEMATOLOGY WBC 13.0 3.7 - 10.4 10/29 MH /2019 [facility] HEMATOLOGY RBC 3.42 4.20 - 10/29 MH 5.40 /2019 [facility] Hgb 10.3 12.0 - 10/29 MH 16.0 /2019 [facility] HEMATOLOGY Hct 31.9 36.0 - 10/29 MH 48.0 [facility] HEMATOLOGY MCV 93.2 80.0 - 10/29 MH 98.0 [facility] MCH 30.2 27.0 - 10/29 MH 31.0 [facility] MCHC 32.4 32.0 - 10/29 MH 36.0 [facility] RDW 13.9 11.5 - 10/29 MH 14.5 /2019 [facility] Platelet 222 133 - 450 10/29 /2019 [facility] MPV 6.9 7.4 - 10.4 10/29 /2019 [facility] BLOOD BANK RBC product Product available 10/29 RESULTS (10/30/19 2:16 PM) /2019 [facility] ast BACTERIAL MRSA by PCR Negative 10/24 - SEROLOGY (10/25/19 1:12 PM) /2019 [facility] BLOOD BANK ABO/Rh O NEG 10/24 RESULTS /2019 [facility] BLOOD BANK Antibody Negative 10/24 RESULTS Scrn (10/25/19 1:12 PM) /[place] CHEM PANEL Glucose Lvl 92 70 - 99 10/24 [facility] CHEM PANEL BUN 12 7 - 22 10/24 [facility] CHEM PANEL Creatinine 0.83 0.50 - 10/24 Lvl 1.40 [facility] CHEM PANEL Sodium Lvl 139 135 - 145 10/24 [facility] CHEM PANEL Potassium 4.3 3.5 - 5.1 10/24 Lvl /2019 [facility] CHEM PANEL Chloride Lvl 104 95 - 109 10/24 [facility] CHEM PANEL CO2 29 24 - 32 06 [facility] CHEM PANEL Calcium Lvl 9.2 8.5 - 10.5 06/ /2019 [facility] CHEM PANEL AGAP 10.3 10.0 - 06/ MH 20.0 /2019 [facility] CHEM PANEL eGFR 75 06/11 Result Comment: The [facility] eGFR is calculated using the CKD-EPI formula. In most young, healthy individuals the eGFR will be >90 mL/min/1.73m2 . The eGFR declines with age. An eGFR of 60-89 may be normal in some populations, particularly the elderly, for whom the CKD-EPI formula has not been extensively validated. Use of the eGFR is not recommended in the following populations:< br/>
Camila viduals with unstable creatinine concentration s, including patients and those with serious co-morbid conditions.<b r/>
Patie nts with extremes in muscle mass or diet.

The data above are obtained from the National Kidney Disease Education Program (NKDEP) which additionally recommends that when the eGFR is used in patients with extremes of body mass index for purposes of drug dosing, the eGFR should be multiplied by the estimated BMI. HEMATOLOGY Segs 47.8 45.0 - 06/ MH 75.0 /2019 [facility] HEMATOLOGY Lymphocytes 45.1 20.0 - 06/ MH 40.0 /2020 [facility] HEMATOLOGY Monocytes 5.5 2.0 - 12.0 06/11 MH /2019 [facility] HEMATOLOGY Eosinophils 1.3 0.0 - 4.0 06/ MH /2019 [facility] HEMATOLOGY Basophils 0.3 0.0 - 1.0 06/11 MH /2019 [facility] HEMATOLOGY Neutrophils 3.5 1.5 - 8.1 06/11 MH # /2020 [facility] HEMATOLOGY Lymphocytes 3.3 1.0 - 5.5 06/11 MH # /2020 [facility] HEMATOLOGY Monocytes # 0.4 0.0 - 0.8 06/11 MH /2019 [facility] HEMATOLOGY Eosinophils 0.1 0.0 - 0.5 06/11 MH # /2020 [facility] HEMATOLOGY WBC 7.4 3.7 - 10.4 06/11 /2019 [facility] HEMATOLOGY RBC 5.13 4.20 - 06/11 MH 5.40 /2019 [facility] HEMATOLOGY Hgb 15.5 12.0 - 06/11 MH 16.0 /2020 [facility] HEMATOLOGY Hct 47.6 36.0 - 06/11 MH 48.0 /2020 [facility] HEMATOLOGY MCV 92.9 80.0 - 10/24 MH 98.0 /2019 [facility] HEMATOLOGY MCH 30.2 27.0 - 10/24 MH 31.0 /2019 [facility] HEMATOLOGY MCHC 32.5 32.0 - 10/24 MH 36.0 /2019 [facility] HEMATOLOGY RDW 13.8 11.5 - 10/24 MH 14.5 /2019 [facility] HEMATOLOGY Platelet 365 133 - 450 10/24 MH [facility] HEMATOLOGY MPV 6.9 7.4 - 10.4 10/24 MH /2019 [facility] HEMATOLOGY PT 12.4 12.0 - / MH 14.7 /2019 [facility] HEMATOLOGY INR 0.92 0.85 - 10/24 MH 1.17 /2019 [facility] HEMATOLOGY PTT 30.1 22.9 - 10/24 MH 35.8 [facility] SPECIAL Hgb A1C 7.2 <=5.6 % 10/24 CHEMISTRY [facility] URINE AND UA Turbidity Clear Clear 10/24 [facility] (10/25/19 1:12 PM) [place] URINE AND UA Spec Grav 1.025 <=1.030 10/24 [facility]OOL [place] URINE AND UA pH 5.0 5.0 - 8.0 10/24 [facility] [place] URINE AND UA Protein Negative Negative 10/24 STOOL mg/dL mg/dL [facility] URINE AND UA Glucose 500 mg/dL Negative 10/24 STOOL mg/dL [facility] URINE AND UA Ketones Negative Negative 10/24 STOOL mg/dL mg/dL [facility] URINE AND UA Bili Negative Negative 10/24 STOOL *NA* /2019 [place] (10/25/19 1:12 PM) URINE AND UA Blood Negative Negative 10/24 [facility] (10/25/19 1:12 PM) [place] URINE AND UA Nitrite Negative Negative 10/24 [facility] (10/25/19 1:12 PM) [place] [facility] URINE AND UA Leuk Est Negative Negative 10/24 [facility] (10/25/19 1:12 PM) [place] URINE AND UA Sq Epi Occasional Few /LPF 10/24 STOOL /LPF [place] URINE AND UA WBC 2 0 - 5 10/24 [facility]OL [place] URINE AND UA RBC 1 0 - 2 10/24 [facility] [place] URINE AND UA Color Ltyellow 10/24 STOOL /2019 [place] URINE AND UA <=1.0 0.1 - 1.0 10/24 STOOL Urobilinogen mg/dL /2019 [facility] IMMUNOLOGY Coronavirus Not Detected Not 10/24 (COVID-19) (10/25/19 12:24 PM) /[place] [facility] Culture: No Growth At 2 Days for aerobes 10/22 [place] Quantitative No Anaerobes Isolated After 2 Days /2019 [facility] IMMUNOLOGY Coronavirus Not Detected Not 10/18 [place] (COVID-[place]) (10/19/19 11:43 AM) Detected [facility] CHEM PANEL Magnesium 2.5 1.8 - 2.4 06/09 Lvl [facility] CHEM PANEL Phosphorus 3.1 2.5 - 4.5 06/09 [facility] CHEM PANEL Total 7.7 6.4 - 8.4 06/09 Protein [facility] CHEM PANEL Calcium Lvl 8.7 8.5 - 10.5 06/09 [place] CHEM PANEL CO2 24 24 - 32 06/09 [facility] CHEM PANEL Chloride Lvl 101 95 - 109 06/09 [facility] CHEM PANEL Potassium 4.1 3.5 - 5.1 06/09 Lvl [facility] CHEM PANEL Alk Phos 108 39 - 136 06/09 [facility] CHEM PANEL AST 44 0 - 37 06/09 [facility] CHEM PANEL Bili Total 0.3 0.2 - 1.3 06/09 [facility] CHEM PANEL ALT 71 0 - 65 06/09 [facility] CHEM PANEL Albumin Lvl 3.2 3.5 - 5.0 06/09 [facility] CHEM PANEL eGFR 94 06/09 [facility] Comment: The [facility] eGFR is calculated using the CKD-EPI formula. In most young, healthy individuals the eGFR will be >90 mL/min/1.73m2 . The eGFR declines with age. An eGFR of 60-89 may be normal in some populations, particularly the elderly, for whom the CKD-EPI formula has not been extensively validated. Use of the eGFR is not recommended in the following populations:< br/>
Camila viduals with unstable creatinine concentration s, including patients and those with serious co-morbid conditions.<b r/>
Patie nts with extremes in muscle mass or diet.

The data above are obtained from the National Kidney Disease Education Program (NKDEP) which additionally recommends that when the eGFR is used in patients with extremes of body mass index for purposes of drug dosing, the eGFR should be multiplied by the estimated BMI. CHEM PANEL Sodium Lvl 136 135 - 145 06/09 [facility] CHEM PANEL Creatinine 0.70 0.50 - 06/09 MH Lvl 1.40 [facility] CHEM PANEL BUN 12 7 - 22 06/09 [facility] CHEM PANEL Glucose Lvl 166 70 - 99 06/09 [facility] CHEM PANEL A/G Ratio 0.7 0.7 - 1.6 06/09 [facility] CHEM PANEL AGAP 15.1 10.0 - 06/09 MH 20.0 [facility] CHEM PANEL Globulin 4.5 2.7 - 4.2 06/09 [facility] CHEM PANEL B/C Ratio 17 6 - 25 06/09 [facility] HEMATOLOGY PTT 31.3 22.9 - 06/09 MH 35.8 /2017 [facility] HEMATOLOGY INR 1.04 0.85 - 06/09 MH 1.17 [facility] HEMATOLOGY PT 13.6 12.0 - 06/09 MH 14.7 [facility] HEMATOLOGY Monocytes # 0.3 0.0 - 0.8 06/09 [facility] HEMATOLOGY Lymphocytes 1.3 1.0 - 5.5 06/09 MH # /2017 [facility] HEMATOLOGY Segs 84.9 45.0 - 06/09 MH 75.0 [facility] HEMATOLOGY Segs-Bands # 9.0 1.5 - 8.1 06/09 [facility] HEMATOLOGY Basophils 0.1 0.0 - 1.0 06/09 [facility] HEMATOLOGY Lymphocytes 12.5 20.0 - 06/09 MH 40.0 [facility] HEMATOLOGY Monocytes 2.5 2.0 - 12.0 06/09 [facility] HEMATOLOGY RBC 4.13 4.20 - 06/09 MH 5.40 [facility] HEMATOLOGY WBC 10.6 3.7 - 10.4 06/09 [facility] HEMATOLOGY MCH 31.4 27.0 - 06/09 MH 31.0 [facility] HEMATOLOGY RDW 12.5 11.5 - 06/09 MH 14.5 [facility] HEMATOLOGY MCHC 34.6 32.0 - 06/09 MH 36.0 [facility] HEMATOLOGY Hgb 13.0 12.0 - 06/09 MH 16.0 [facility] HEMATOLOGY MCV 90.7 80.0 - 06/09 MH 98.0 [facility] HEMATOLOGY Hct 37.4 36.0 - 06/09 MH 48.0 [facility] HEMATOLOGY MPV 7.7 7.4 - 10.4 06/09 [facility] HEMATOLOGY Platelet 291 133 - 450 06/09 [facility] CHEM PANEL eGFR 80 06/08 Result Comment: The [facility] eGFR is calculated using the CKD-EPI formula. In most young, healthy individuals the eGFR will be >90 mL/min/1.73m2 . The eGFR declines with age. An eGFR of 60-89 may be normal in some populations, particularly the elderly, for whom the CKD-EPI formula has not been extensively validated. Use of the eGFR is not recommended in the following populations:< br/>
Camila viduals with unstable creatinine concentration s, including patients and those with serious co-morbid conditions.<b r/>
Patie nts with extremes in muscle mass or diet.

The data above are obtained from the National Kidney Disease Education Program (NKDEP) which additionally recommends that when the eGFR is used in patients with extremes of body mass index for purposes of drug dosing, the eGFR should be multiplied by the estimated BMI. CHEM PANEL AGAP 10.1 10.0 - 06/08 MH 20. [facility] CHEM PANEL CO2 29 24 - 32 06/08 [facility] CHEM PANEL Calcium Lvl 8.8 8.5 - 10.5 06/08 [facility] CHEM PANEL Potassium 4.1 3.5 - 5.1 06/08 MH Lvl /2017 [facility] CHEM PANEL Chloride Lvl 103 95 - 109 06/08 [facility] CHEM PANEL Sodium Lvl 138 135 - 145 06/08 [facility] CHEM PANEL Creatinine 0.80 0.50 - 06/08 MH Lvl 1.40 [facility] CHEM PANEL Glucose Lvl 149 70 - 99 06/08 [facility] CHEM PANEL BUN 10 7 - 22 06/08 [facility] HEMATOLOGY POC 13.9 12.0 - 06/08 MH Hemoglobin 16.0 [facility] HEMATOLOGY POC 41.0 36.0 - 06/08 MH Hematocrit 48.0 [facility] HEMATOLOGY POC BUN 11 7 - 22 06/08 [facility] HEMATOLOGY POC Glucose 127 70 - 99 06/08 [facility] HEMATOLOGY POC 4.0 3.5 - 5.1 06/08 Potassium [facility] HEMATOLOGY POC Sodium 140 135 - 145 06/08 [facility] HEMATOLOGY POC Chloride 101 95 - 109 06/08 [facility] BLOOD BANK ABO/Rh O NEG 06/08 RESULTS [facility] BLOOD BANK Antibody Negative 06/08 RESULTS Scrn (06/08/17 6:19 AM) [facility] est ELECTROLYT AGAP 7.2 10.0 - 06/03 ES 20.0 [facility] ELECTROLYT eGFR 80 06/03 Result Comment: The [facility] eGFR is calculated using the CKD-EPI formula. In most young, healthy individuals the eGFR will be >90 mL/min/1.73m2 . The eGFR declines with age. An eGFR of 60-89 may be normal in some populations, particularly the elderly, for whom the CKD-EPI formula has not been extensively validated. Use of the eGFR is not recommended in the following populations:< br/>
Camila viduals with unstable creatinine concentration s, including patients and those with serious co-morbid conditions.<b r/>
Patie nts with extremes in muscle mass or diet.

The data above are obtained from the National Kidney Disease Education Program (NKDEP) which additionally recommends that when the eGFR is used in patients with extremes of body mass index for purposes of drug dosing, the eGFR should be multiplied by the estimated BMI. ELECTROLYT Chloride Lvl 104 95 - 109 06/03 ES [facility] ELECTROLYT Sodium Lvl 141 135 - 145 06/03 ES [facility] ELECTROLYT Calcium Lvl 9.3 8.5 - 10.5 06/03 ES [facility] ELECTROLYT CO2 35 24 - 32 06/03 [facility] ELECTROLYT Potassium 5.2 3.5 - 5.1 06/03 ES Lvl [facility] ELECTROLYT Creatinine 0.80 0.50 - 06/03 ES Lvl 1.40 [facility] ELECTROLYT BUN 7 7 - 22 06/03 ES [facility] ELECTROLYT Glucose Lvl 94 70 - 99 06/03 [facility] HEMATOLOGY RDW 13.1 11.5 - 06/03 MH 14.5 /2017 [facility] HEMATOLOGY MCH 30.7 27.0 - 06/03 MH 31.0 [facility] HEMATOLOGY MCHC 33.4 32.0 - 06/03 MH 36.0 [facility] HEMATOLOGY MCV 92.0 80.0 - 06/03 MH 98.0 [facility] HEMATOLOGY Hct 44.3 36.0 - 06/03 MH 48.0 /2017 [facility] HEMATOLOGY RBC 4.81 4.20 - 06/03 MH 5.40 /2017 [facility] HEMATOLOGY Hgb 14.8 12.0 - 06/03 MH 16.0 [facility] HEMATOLOGY WBC 7.3 3.7 - 10.4 06/03 [facility] HEMATOLOGY MPV 7.9 7.4 - 10.4 06/03 [facility] HEMATOLOGY Platelet 347 133 - 450 06/03 [facility] HEMATOLOGY Eosinophils 0.1 0.0 - 0.5 06/03 MH # /2017 [facility] HEMATOLOGY Lymphocytes 3.2 1.0 - 5.5 06/03 MH # /2017 [facility] HEMATOLOGY Monocytes # 0.4 0.0 - 0.8 06/03 [facility] HEMATOLOGY Eosinophils 1.9 0.0 - 4.0 06/03 [facility] HEMATOLOGY Segs-Bands # 3.5 1.5 - 8.1 06/03 [facility] HEMATOLOGY Basophils 0.5 0.0 - 1.0 06/03 [facility] HEMATOLOGY Segs 47.7 45.0 - 06/03 MH 75.0 [facility] HEMATOLOGY Monocytes 6.2 2.0 - 12.0 06/03 [facility] HEMATOLOGY Lymphocytes 43.7 20.0 - 06/03 MH 40.0 [facility] CHEM PANEL Albumin Lvl 3.4 3.5 - 5.0 05/23 [facility] CHEM PANEL Globulin 4.2 2.0 - 4.0 05/23 [facility] CHEM PANEL A/G Ratio 0.8 0.7 - 1.6 05/23 [facility] CHEM PANEL Total 7.6 6.4 - 8.4 05/23 [facility] CHEM PANEL Alk Phos 124 39 - 136 05/23 [facility] CHEM PANEL ALT 58 0 - 65 05/23 [facility] CHEM PANEL AST 54 0 - 37 05/23 [facility] CHEM PANEL Bili 0.3 0.0 - 1.0 05/23 [facility] CHEM PANEL Bili Total 0.4 0.2 - 1.3 05/23 [facility] CHEM PANEL Bili Direct 0.1 0.0 - 0.3 05/23 [facility] CHEM PANEL Magnesium 1.8 1.8 - 2.4 05/23 [facility] CHEM PANEL eGFR 96 05/23 <sup>1</sup>R esult [facility] Comment: The eGFR is calculated using the CKD-EPI formula. In most young, healthy individuals the eGFR will be >90 mL/min/1.73m2 . The eGFR declines with age. An eGFR of 60-89 may be normal in some populations, particularly the elderly, for whom the CKD-EPI formula has not been extensively validated. Use of the eGFR is not recommended in the following populations:& lt;br/>
I ndividuals with unstable creatinine concentration s, including patients and those with serious co-morbid conditions.<b r/>
Patie nts with extremes in muscle mass or diet.

The data above are obtained from the National Kidney Disease Education Program (NKDEP) which additionally recommends that when the eGFR is used in patients with extremes of body mass index for purposes of drug dosing, the eGFR should be multiplied by the estimated BMI. CHEM PANEL Chloride Lvl 103 95 - 109 05/23 [facility] CHEM PANEL Calcium Lvl 9.2 8.5 - 10.5 05/23 [facility] CHEM PANEL CO2 25 24 - 32 05/23 [facility] CHEM PANEL Creatinine 0.7 0.5 - 1.4 05/23 [facility] CHEM PANEL Sodium Lvl 137 135 - 145 05/23 [facility] CHEM PANEL Potassium 4.1 3.5 - 5.1 05/23 [facility] CHEM PANEL BUN 10 7 - 22 05/23 [facility] CHEM PANEL Glucose Lvl 152 70 - 99 05/23 <sup>3</sup>I nterpretive [facility] Data: Adult reference range values reflect the clinical guidelines
of the [employer]. CHEM PANEL AGAP 13.1 10.0 - 05/23 20.0 [facility] HEMATOLOGY MCH 31.7 27.0 - 05/23 MH 31.0 /2014 [facility] HEMATOLOGY MCHC 34.3 32.0 - 05/23 MH 36.0 [facility] Platelet 292 133 - 450 05/23 [facility] HEMATOLOGY RDW 12.8 11.5 - 05/23 MH 14.5 /2014 [facility] MPV 8.0 7.4 - 10.4 05/23 [facility] RBC 4.33 4.20 - 05/23 MH 5.40 /2014 [facility] HEMATOLOGY WBC 10.3 3.7 - 10.4 05/23 [facility] HEMATOLOGY MCV 92.2 80.0 - 05/23 MH 98.0 /2014 [facility] Hct 40.0 36.0 - 05/23 MH 48.0 /2014 [facility] HEMATOLOGY Hgb 13.7 12.0 - 05/23 MH 16.0 [facility] HEMATOLOGY Basophils # 0.1 0.0 - 0.2 05/23 [facility] HEMATOLOGY Lymphocytes 10.9 20.0 - 05/23 MH 40.0 [facility] HEMATOLOGY Monocytes 1.1 2.0 - 12.0 05/23 [facility] HEMATOLOGY Basophils 0.8 0.0 - 1.0 05/23 [facility] HEMATOLOGY Segs-Bands # 9.0 1.5 - 8.1 05/23 [facility] Lymphocytes 1.1 1.0 - 5.5 05/23 /2014 [facility] Monocytes # 0.1 0.0 - 0.8 05/23 [facility] HEMATOLOGY Segs 87.2 45.0 - 05/23 MH 75.0 [facility] CHEM PANEL eGFR 71 05/22 <sup>2</sup>R esult [facility] Comment: The eGFR is calculated using the CKD-EPI formula. In most young, healthy individuals the eGFR will be >90 mL/min/1.73m2 . The eGFR declines with age. An eGFR of 60-89 may be normal in some populations, particularly the elderly, for whom the CKD-EPI formula has not been extensively validated. Use of the eGFR is not recommended in the following populations:& lt;br/>
I ndividuals with unstable creatinine concentration s, including patients and those with serious co-morbid conditions.<b r/>
Patie nts with extremes in muscle mass or diet.

The data above are obtained from the National Kidney Disease Education Program (NKDEP) which additionally recommends that when the eGFR is used in patients with extremes of body mass index for purposes of drug dosing, the eGFR should be multiplied by the estimated BMI. CHEM PANEL Calcium Lvl 8.4 8.5 - 10.5 05/22 [facility] CHEM PANEL AGAP 12.4 10.0 - 05/22 MH 20.0 [facility] CHEM PANEL CO2 27 24 - 32 05/22 [facility] CHEM PANEL Chloride Lvl 105 95 - 109 05/22 [facility] CHEM PANEL Potassium 3.4 3.5 - 5.1 05/22 Lvl [facility] CHEM PANEL Sodium Lvl 141 135 - 145 05/22 [facility] CHEM PANEL BUN 13 7 - 22 05/22 [facility] CHEM PANEL Glucose Lvl 169 70 - 99 05/22 <sup>4</sup>I nterpretive [facility] Data: Adult reference range values reflect the clinical guidelines
of the [employer]. CHEM PANEL Creatinine 0.9 0.5 - 1.4 05/22 [facility] BLOOD BANK Antibody Negative 05/14 RESULTS Scrn (05/14/14 10:53 AM) /2013 [facility] BLOOD BANK ABO/Rh O NEG 05/14 RESULTS /2013 [facility] HEMATOLOGY MPV 7.8 7.4 - 10.4 05/14 /2013 [facility] HEMATOLOGY MCH 31.0 27.0 - 05/14 MH 31.0 /2013 [facility] HEMATOLOGY MCHC 34.3 32.0 - 05/14 MH 36.0 /2013 [facility] HEMATOLOGY RDW 12.5 11.5 - 05/14 MH 14.5 /2013 [facility] HEMATOLOGY Platelet 334 133 - 450 05/14 /2013 [facility] HEMATOLOGY MCV 90.4 80.0 - 05/14 MH 98.0 /2013 [facility] HEMATOLOGY Hgb 14.5 12.0 - 05/14 MH 16.0 /2013 [facility] HEMATOLOGY RBC 4.69 4.20 - 05/14 MH 5.40 /2013 [facility] HEMATOLOGY Hct 42.4 36.0 - 05/14 MH 48.0 /2013 [facility] HEMATOLOGY WBC 6.5 3.7 - 10.4 05/14 /2013 [facility] HEMATOLOGY Lymphocytes 3.1 1.0 - 5.5 05/14 MH # /2014 [facility] HEMATOLOGY Segs-Bands # 2.9 1.5 - 8.1 05/14 [facility] HEMATOLOGY Basophils 0.3 0.0 - 1.0 05/14 [facility] HEMATOLOGY Monocytes 6.4 2.0 - 12.0 05/14 [facility] HEMATOLOGY Lymphocytes 47.0 20.0 - 05/14 MH 40.0 [facility] HEMATOLOGY Eosinophils 2.0 0.0 - 4.0 05/14 [facility] HEMATOLOGY Segs 44.3 45.0 - 05/14 MH 75.0 /2014 [facility] HEMATOLOGY Basophils # 0.0 0.0 - 0.2 05/14 [facility] HEMATOLOGY Eosinophils 0.1 0.0 - 0.5 05/14 MH # /2013 [facility] HEMATOLOGY Monocytes # 0.4 0.0 - 0.8 05/14 [facility] Pathology Reports No Data Provided for This Section Diagnostic Reports Report Value Date Source Knee 1-2 Views EXAM: XR RIGHT KNEE 2 VIEWS 04/28/2020 Jaylan rohit Wise unilateral DX DATE: 04/28/2020 11:38 [facility] [employer] INDICATION: Arthritis - Assess Implant Position COMPARISON: Right knee radiographs 08/11/2019. TECHNIQUE: AP and lateral radiographs of the kn ee FINDINGS: Immediate postope rative images demonstrate placement of a total knee arthroplasty and patellar resurfacing, projecting in satisfactory alignment on both views. No complication is identified. Anterior knee soft tissue gas. IMPRESSION: Expected immedi ate postoperative appearance following total knee arthroplasty. No complication identified. Pelvis AP DX PROCEDURE INFORMATION: 10/30/2019 [facility] ast Exam: XR Pelvis Exam date and time: 10/30/2019 3:51 PM Age: 64 years old Clinical indication: Hip pain; Right hip; Additi onal info: Arthritis/assess implant position, in pacu TECHNIQUE: Imaging protocol: XR pelvis. Views: 1 or 2 view. Other technique: A frontal radiograph of the pel vis was obtained. COMPARISON: PELVIS AP DX 10/30/2019 2:08 PM PELVIS, 1 view, portable, postoperative HISTORY: Postoperative study, following right hi p arthroplasty. TECHNIQUE: A single portable postoperative frontal radiograph of the pelvis was obtained. IMPRESSION: The right total hip prosthesis is in good positi on. There is no evidence of unexpected fracture or other complication. There is postoperative soft tissue gas. Shakeel Rowell MD On 10/30/2019 16:21:26; VR-P [id number] Pelvis AP DX PROCEDURE INFORMATION: 10/30/2019 [facility] ast Exam: XR Pelvis Exam date and time: 10/30/2019 2:08 PM Age: 64 years old Clinical indication: Hip pain; Right hip; Additi onal info: RT hip djd/rt hip total arthroplasty/x-table pelvis in or8 TECHNIQUE: Imaging protocol: XR pelvis. Views: 1 or 2 view. Other technique: A frontal radiograph of the pel vis was obtained. COMPARISON: No relevant prior studies available. * PELVIS, 1 view, intraoperative HISTORY: Intraoperative radiograph obtained dur ing right hip arthroplasty. TECHNIQUE: A single portable intraoperative fron kaiden view of the pelvis was obtained. IMPRESSION: There has been resection of the right femoral he ad and neck. The acetabular component has been placed. There is a femoral si zing component. There is no evidence of unexpected fracture. There is operat bao soft tissue gas. Shakeel Rowell MD On 10/30/2019 15:48:26; VR-P [id number] Chest 2 views DX PROCEDURE INFORMATION: 10/25/2019 [facility] Exam: XR Chest, 2 Views Exam date and time: 10/25/2019 1:42 PM Age: 64 years old Clinical indication: Screening exam; Pre-operati ve exam; Additional info: Coughing/coughing / preop TECHNIQUE: Imaging protocol: XR of the chest Views: 2 views. PA and Lateral COMPARISON: No relevant prior studies available. FINDINGS: Lungs: There are normal lung volumes without con solidation or interstitial oppacities. Pleural space: Unremarkable. No pleural effusion . No pneumothorax. Heart/Mediastinum: The heart size is normal. The pulmonary vasculature is normal. The mediastinal contour is normal. The t rachea is midline. Bones/joints: Two cervical spine fusion plates. IMPRESSION: No acute finding Chris Genao MD On 10/25/2019 14:18:22; [id number] Spine lumbar wo PROCEDURE INFORMATION: 06/28/2019 [facility] contrast MRI Exam: MR Lumbar Spine Without Contrast. Exam date and time: 06/28/2019 6:59 AM Age: 63 years old Clinical indication: Intervertebral disc disorde rs with radiculopathy, lumbar region; Additional info: M51.16 intervertebral d isc disorders with radiculopathy, lumbar region/m51.16 intervertebr al disc disorders with radiculopathy, lumbar region TECHNIQUE: Imaging protocol: Multiplanar magnetic resonance images of the lumbar spine without intravenous contrast. COMPARISON: SPINE LUMBAR WO CONTRAST MRI 04/22/2014 11:08 AM FINDINGS: Vertebrae: There is no spondylolisthesis, lysis or compression fracture deformity. There is no discitis, osteomyelitis o r arachnoiditis. Spinal cord: The conus medularis is normally pos tioned and there is no intrathecal mass. L1-L2: No significant disc disease. No signific ant spinal canal stenosis. No neural foraminal stenosis. L2-L3: No significant disc disease. No signific ant spinal canal stenosis. No neural foraminal stenosis. L3-L4: At the L3-L4 disc space a subtle central laminotomy is suspected, without central or foraminal stenosis. L4-L5: At the L4-L5 disc spa ce, hypertrophic facets are present without central or foraminal stenosis. There is minimal anterior spondylosis/Modic 2 signal alteration. L5-S1: At the L5-S1 disc space, there is a 2 mm left lateral bulge annulus and minimal spondylosis without central or foraminal stenosis. Soft tissues: The psoas and spinae erectae muscl es are normal. The parially visualized sacral iliac joints are normal. IMPRESSION: There is no central or foraminal tommie nosis. 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 IMPRESSION: A large surgical probe is directed p osteriorly at the L3-L4. Critical findings were called to Ananda Landaverde MD on 06/08/2017 9:44 AM DEAN [facility] INSTRUCTION. SL: [id number] Spine lumbar single EXAM: Spine lumbar single view DX 06/08/2017 [facility] DX DATE: 06/08/2017 8:08 AM DEAN OF INSTRUCTION INDICATION: Pain, Lumbar region - level verifica tion pre op COMPARISON: None. IMPRESSION: 2 surgical needl es are present directed posteriorly at the L2-L3 and L3-L4 spinous processes. Critical findings were called to Ananda Landaverde MD on 06/08/2017 9:42 AM DEAN OF INSTRUCTION. SL: [id number] Spine cervical 1 view Cervical spine, one view. 05/22/2014 [facility] DX HISTORY: Pain. COMPARISON: None available. FINDINGS: A single lateral intraoperative view of the cerv ical spine is submitted. The film is underpenetrated and only the upper c ervical spine is visualized. A metallic plate is partiall y visualized along the anterior cortex of the C4 and C5 vertebral bodies. There is a probe anteriorly which terminates at the anterior aspect of the C3/C4 disc space. Findings were called to the operating room at me of dictation. SL: 17 Spine cervical wo NAME: LUPE LEDESMA 04/22/2014 [facility] contrast MRI : 1955 SEX: F 89 Ordering Physician: Ananda Landaverde cervical wo contrast MRI : Apr 22, 2014 11 :35:00 AM. CLINICAL INDICATION: Backac he, Cervicalgia, Displacement of Cervical Disc, Post Laminectomy Syndrome. Comparison Examination: 05/01/2008. FINDINGS: Sagittal T1, sagittal FSE, s agittal FSE fat-sat, axial 3-D FSE and axial gradient echo images performed of the cervical spine without contrast under general anesthesia. The patient is status post a nterior fusion of C4 through C6. No abnormal signal identified in the cervical spinal cord. The craniocervical junction is unremarkable. C2-C3: No focal herniated nu cleus pulposus, no neuroforaminal narrowing and no spinal canal stenosis. C3-C4: Diffuse disc bulge ab uts the ventral aspect of the spinal cord. Moderate spinal canal stenosis with the anterior to posterior dimension being 8 mm. No left C3-C4 neural foraminal narrowing. Mild right C3-C4 neural foraminal narrowing. C4-C5: Mild spinal canal tommie nosis with the anterior to posterior dimension being 9 mm. No focal herniated nucleus pulposus and no neural foraminal narrowing bilaterally. C5-C6: Mild to moderate spin al canal stenosis with the anterior to posterior dimension being 8.8 mm. Mild right C5-C6 neural foraminal narrowing. No left C5- C6 neural foraminal narrowing. C6-C7: Diffuse disc bulge as ymmetric to the left paracentral region flattens the spinal cord and causes a severe spinal canal stenosis with the anterior to posterior dimension being 6.8 mm. Mild to moderate bilateral C6-C7 neural foraminal narrowing. C7-T1: No focal herniated nu cleus pulposus, no neuroforaminal narrowing and no spinal canal stenosis. No bony marrow abnormality identified about the cervical spine. CONCLUSIONS: 1. Status post anterior fusion of C4 through C6. 2. Disc bulge at C3-C4 causes moderate spinal ca nal stenosis. 3. Mild spinal canal stenosis C4-C5. 4. Mild to moderate spinal canal stenosis C5-C6. 5. Disc bulge asymmetric to left paracentral region at C6-C7 causes severe spinal canal stenosis. 6. Right C3-C4, right C5-C6 and bilateral C6-C7 neural foraminal narrowing as above. SL: 14 Spine lumbar wo NAME: LUPE LEDESMA 04/22/2014 [facility] contrast MRI : 1955 SEX: F 89 Ordering Physician: Ananda Landaverde Spine lumbar wo contrast MRI : Apr 22, 2014 11:3 5:00 AM. CLINICAL INDICATION: Displa cement of Lumbar Disc without Myelopathy, Backache. Comparison Examination: 05/01/2008. FINDINGS: Sagittal T1, sagittal FSE, s agittal FSE fat-sat, axial T1 and axial FSE images performed of the lumbar spine without contrast under general anesthesia. The conus medullaris termina sonia in a normal location and no abnormal signal identified in the lower spinal cord. The study assumes 5 lumbar type vertebral bodies . Disc desiccation is identified at L5-S1, L4-L5 a nd to lesser extent at L3-L4. No bony marrow abnormality identified about the lumbar spine. T12-L1: No focal herniated n ucleus pulposus, no neuroforaminal narrowing and no spinal canal stenosis. L1-L2: No focal herniated nu cleus pulposus, no neuroforaminal narrowing and no spinal canal stenosis. L2-L3: Mild bilateral facet hypertrophy. Bilateral ligamentum flavum hypertrophy. No focal herniated nucleus pulposus, no neuroforaminal narrowing and no spinal canal stenosis. L3-L4: Bilateral ligamentum flavum hypertrophy. Mild bilateral facet hypertrophy. Slight disc bulge. No spinal canal stenosis and no neural foraminal narrowing bilaterally. L4-L5: Bilateral facet and l igamentum flavum hypertrophy. Slight disc bulge. No spinal canal stenosis or neural foraminal narrowing bilaterally. L5-S1: Slight disc bulge. No spinal canal stenosis and no neural foraminal narrowing bilaterally. Mild left L5-S1 facet hypertrophy. CONCLUSIONS: 1. Multilevel bilateral facet hypertrophy as abo ve. 2. Slight disc bulge L3-L4, L4-L5 and L5-S1. 3. Otherwise negative lumbar spine MRI without c ontrast. SL: 14 Consultation Notes No Data Provided for This Section Discharge Summaries No Data Provided for This Section History and Physicals No Data Provided for This Section Vital Signs Vital Sign Value Date Comments Source Respitory Rate 16 04/28/2020 [facility] Systolic (mm Hg) 120 04/28/2020 [facility] Diastolic (mm Hg) 72 04/28/2020 [facility] Temperature Oral (F) 97.7 F 04/28/2020 [facility] Heart Rate 74 04/28/2020 [facility] Respitory Rate 20 04/28/2020 [facility] Systolic (mm Hg) 119 04/28/2020 [facility] Diastolic (mm Hg) 68 04/28/2020 [facility] Respitory Rate 11 04/28/2020 [facility] Systolic (mm Hg) 136 04/28/2020 [facility] Diastolic (mm Hg) 72 04/28/2020 [facility] Weight 83.864 04/28/2020 [facility] BMI Calculated 35.4 04/28/2020 [facility] Height 153.92 cm 04/24/2020 [facility] Weight 83.892 04/24/2020 [facility] BMI Calculated 35.41 04/24/2020 [facility] Temperature Oral (F) 98.0 F 04/24/2020 [facility] Heart Rate 83 04/24/2020 [facility] Respitory Rate 15 04/24/2020 [facility] Systolic (mm Hg) 107 04/24/2020 [facility] Diastolic (mm Hg) 74 04/24/2020 [facility] Height 157.48 cm 04/23/2020 [facility] Weight 82.727 04/23/2020 [facility] BMI Calculated 33.36 04/23/2020 [facility] Temperature Oral (F) 97.9 F 10/31/2019 [facility] Heart Rate 91 10/31/2019 [facility] Systolic (mm Hg) 110 10/31/[address] [facility] Diastolic (mm Hg) 46 10/31/[address] Heart Rate 94 10/31/2019 [facility] Systolic (mm Hg) 118 10/31/2019 [facility] Diastolic (mm Hg) 54 10/31/[address] Temperature Oral (F) 98.1 F 10/31/2019 [facility] Heart Rate 85 10/31/2019 [facility] Systolic (mm Hg) 99 10/31/2019 [facility] Diastolic (mm Hg) 47 10/31/[address] Temperature Oral (F) 98.3 F 10/31/2019 [facility] Respitory Rate 16 10/31/2019 [facility] Respitory Rate 16 10/31/2019 [facility] Height 154.94 cm 10/31/2019 [facility] Weight 82.841 10/31/2019 [facility] BMI Calculated 34.51 10/31/2019 [facility] Respitory Rate 18 10/31/2019 [facility] Height 154.94 cm 10/25/2019 [facility] Weight 82.727 10/25/2019 [facility] BMI Calculated 34.46 10/25/2019 [facility] Height 154.94 cm 10/25/2019 [facility] Weight 82.727 10/25/2019 [facility] BMI Calculated 34.46 10/25/2019 [facility] Systolic (mm Hg) 119 06/09/2017 [facility] Diastolic (mm Hg) 61 06/09/[address] Respitory Rate 18 06/09/2017 [facility] Heart Rate 85 06/09/2017 [facility] Temperature Oral (F) 97.2 F 06/09/2017 [facility] Temperature Oral (F) 97.7 F 06/09/2017 [facility] Heart Rate 87 06/09/2017 [facility] Systolic (mm Hg) 119 06/09/2017 [facility] Diastolic (mm Hg) 59 06/09/[address] Respitory Rate 18 06/09/2017 [facility] Rate 83 06/09/2017 [facility] Systolic (mm Hg) 100 06/09/2017 [facility] Diastolic (mm Hg) 63 06/09/[address] Temperature Oral (F) 97.9 F 06/09/2017 [facility] Respitory Rate 18 06/09/2017 [facility] Weight 85 06/08/2017 [facility] BMI Calculated 35.41 06/08/2017 [facility] Height 154.94 cm 06/08/2017 [facility] Weight 85.3 06/03/2017 [facility] BMI Calculated 35.53 06/03/2017 [facility] Height 154.94 cm 06/03/2017 [facility] Height 154.94 cm 06/01/2017 [facility] Weight 85.455 06/01/2017 [facility] BMI Calculated 35.6 06/01/2017 [facility] Systolic (mm Hg) 126 05/23/2014 [facility] Resp[facility] Rate 20 05/23/2014 [facility] Diastolic (mm Hg) 67 05/23/[address] Temperature Oral (F) 97.5 F 05/23/2014 [facility] Heart Rate 88 05/23/2014 [facility] Systolic (mm Hg) 124 05/23/2014 [facility] Diastolic (mm Hg) 65 05/23/[address] Heart Rate 90 05/23/2014 [facility] Respitory Rate 20 05/23/2014 [facility] Temperature Oral (F) 98.0 F 05/23/2014 [facility] Temperature Oral (F) 98.0 F 05/23/2014 [facility] Systolic (mm Hg) 142 05/23/2014 [facility] Respitory Rate 20 05/23/2014 [facility] Heart Rate 97 05/23/2014 [facility] Diastolic (mm Hg) 76 05/23/[address] BMI Calculated 33.51 05/14/2014 [facility] Weight 83.1 05/14/2014 [facility] Height 157.48 cm 05/14/2014 [facility] Weight 83.1 05/14/2014 [facility] Height 157.48 cm 05/14/2014 [facility] BMI Calculated 33.51 05/14/2014 [facility] Diastolic (mm Hg) 56 04/22/[address] Respitory Rate 21 04/22/2014 [facility] Systolic (mm Hg) 121 04/22/2014 [facility] Systolic (mm Hg) 117 04/22/2014 [facility] Resp[facility] Rate 21 04/22/2014 [facility] Diastolic (mm Hg) 56 04/22/[address] Systolic (mm Hg) 116 04/22/2014 [facility] Diastolic (mm Hg) 58 04/22/2014 [facility] Respitory Rate 21 04/22/2014 [facility] Heart Rate 76 04/22/2014 [facility] Encounters Location Location Encounter Encounter Reason Attending ADM DC Stat us Source Details Type Number For Provider Date Date Visit [facility] [id number] Ananda 04/22 04/22 [facility] [place] [facility] /2013 [facility] Inpatient [id number] Ananda 05/22 05/23 [place] [facility] /2014 [facility] Inpatient [id number] Ananda 06/08 06/09 [facility] /2017 [facility] Outpatient [id number] Horace 02/13 Active [facility] [id number] Horace 02/13 02/13 [facility] Pre-Reg Kre Neuro [place] [facility] Outpt Diag [id number] Chon 06/28 06/29 [facility]patient [facility] Quispe [facility] Outpatient [id number] Charles 08/01 08/01 Active [facility]urgi [facility]2019 [facility] Outpatient [id number] Charles 08/01 08/02 [facility] I Frandy Loaiza /2019 [facility] Bedded [id number] Kwadwo 10/22 10/22 [facility] [place] [facility]patient osan [facility] Digestive Outpatient [id number] Kwadwo 10/28 10/29 [facility] Disease osani /2019 [facility] Inpatient [id number] Chon 10/29 10/30 [facility] Outpatient [id number] Kwadwo 01/06 01/07 [facility] Disease osani [facility] Bedded [id number] Chon 04/28 04/28 [facility] Procedures Procedure Code Date Perfomer Comments Source Procedure<sup>7</sup> [id number] CERVICAL Mis la FUSION Neuro,[facility], [facility] [place],[facility] Shoulder joint [id number] LEFT [facility] operations<sup>8</sup Margaret ro,[facility] Carpal tunnel [id number] BILATERAL [facility] release<sup>1</sup> Neuro ,[facility], [facility] Cataract [id number] RIGHT EYE [facility] surgery<sup>2</sup> Neuro ,[facility], [facility] Cervical spinal [id number] Ortho and fusion by anterior Spine technique Cholecystectomy [id number] [facility], [facility] Elbow joint [id number] RIGHT [facility] operations<sup>3</sup Margaret ro,[facility], [facility] Foot [id number] LT. PLANTAR [facility]ischer fasciectomy<sup>4</quintana Margaret ro,[facility], [facility] Foot joint [id number] HEEL SPURS [facility] operations<sup>5</sup BOTH FEET Margaret ro,[facility], [facility] Hysterectomy [id number] [facility] Neuro,[facility], [facility] Knee joint [id number] BILATERAL [facility] operation<sup>6</sup> Margaret ro,[facility], [facility] Laminectomy [id number] [facility] Christine fundoplication [id number] Mis la Neuro,[facility], [facility] Plantar fasciotomy [id number] [facility] Shoulder joint [id number] LEFT Ortho a nd operations<sup>7</sup Spi ne > Assessment and Plan Assessment and Plan Date Source Extracted from:Title: Anesthesia APMS Progress Note* [facility] Author: Lizz Gaviria Date: 04/29/20 Postoperative Information Surgery Done Procedure Location: RIGHT, Knee. Date of Service: 04/28/2020 Chief Complaint Continuing surgical site pain management Out Patient Phone Call . Contact: Patient, Pts. partner. Progress Note Date and Time of Visit: 04/29/2020 09:40 Post OP Day #: 1. Peripheral Nerve Block Nerve Block #: 1. Nerve Block Site: Adductor canal: Right, single shot. Current Status Assessment Visual Analog Scale for Pain (VAS 0-10): At Rest: 7, With Ac tivity: 7. Level of Sedation: Awake/Alert. Activity: Ambulating. Motor Block Residual Motor Weakness: No. Numbness Residual Sensory Numbness: No. Adjuvant Medication: PO. 1st PO Analgesic Date/Time: 04/28/2020 19:00. Site Assessment Non-tender, no redness, minimal swelling or bruising, No exudates, drainage, or bleeding. Side Effects None. Plan [facility] Plan Discharge from [facility] care: Analgesics per Primary Service. OUTPT. PHONE CALL. Lizz Hammer R.N., a m scribing for and in the presence of . . Addendum by Zuri Arana MD on 04/29/2020 18:44 Zuri Hammer MD personally p erformed the actions in this note which was scribed in my presence by Lizz KAMINSKI RN. This note is both accurate and complete. Extracted from:Title: Clinical Document Author: Chon Quispe MD Date: 04/28/20 TKA Operative Note Date: 04/28/2020 Location: [facility] Attending: Chon Quispe MD Pre-op dx: Right knee osteoarthritis Post-op dx: Right knee osteoarthritis Procedure: Right total knee arthroplasty, 22 modifier Anesthesiologist: Dr. Brooks Anesthesia: Spinal, Adductoc Canal Gis Software Engineer: Mio Estrada T-time: see anesthesia note EBL: minimal UOP: no smith IVF: see anesthesia note Transfusion: none required Implants: An and Nephew Femur: 4N, Cocr, Legion, CR Tibia: 3, renee 2 Polyethylene: 9 mm, xlink, dished Patella: 29 mm, xlink Cement: [place] Simplex Cement, 2 packs Resections: Femur: alignment: 6 deg valgus level: +2 DF, flexion contracture Tibia: slope: 4 degree Level: 2mm, medial Clinical Indications: Patient is a 64 yo female with a diagnos is of knee osteoarthritis status post an extensive conservative medical management program including physical therapy with home exercise program, injections, and anti-inflammatories. Patient has exhaust ed all non-operative management options but has persistent pain and disability from the arthritis. X-rays demonstrate end stage joint space narrowing with bone on bone articulation involving the medial, lateral, and patellofemoral compartments of the knee. Intraoperative evaluation showed complete de struction of the cartilage surfaces in t he medial, lateral, and patellofemoral compartments of the knee. Patient understands the risks, benefits, rational, and rehabilitation process inherent with a total knee arthroplasty. Patient expressed understanding that risks include but not limited to bleeding, hermelindo n, infection, damage to nearby structure s: vessels, tendons, nerves and ligaments, hardware failure, loosening, fracture, need for revision surgery, blood clots in the legs and lungs, stroke, heart gris ck, and . The patient agreed and gave consent to surger y as indicated. Patient also understands the risks and b enefits of blood transfusions. Risks including possible transmission of virus or bacteria, and transfusion reactions. Patient understood these risks and gave consent for transfusion as indicated. Procedure Note: Positioning: Patient brought into the OR and placed s upine on the OR table. After successful an anesthetic was applied, the Right lower extremity was then prepped and draped in the standard fashion with a non-steril e tourniquet on the proximal thigh. A quintana rgical time-out was completed, antibiotics, surgical site, and allergies were confirmed. The operative extremity was then exsanguinated with the esmarch and the tourniquet was inflated. Approach: An anterior incision was centered over t he knee with a 10 blade scalpel, and dissection was taken down to the retinacular layer. A medial parapatellar arthrotomy was completed in the standard fashion. W e then resected the anterior distal femu r synovium, infrapatellar fat pad, anterior horn of the lateral meniscus, and anterior cruciate ligament. A medial proximal tibia release was completed in the sta ndard fashion. The patella was everted, the patella resection was completed in the standard fashion at the level of the lateral facet. The patella was sized then drilled in the standard fashion. Femur: The intramedullary canal of the femur an d tibia was accessed with drill and Charnley awl. A distal femoral cutting block was placed with the intramedullary guide and the distal femoral resection was com pleted with the oscillating saw. The fem ur was sized and the corresponding "4 in 1" cutting block was placed. The anterior, posterior, and chamfer resections were completed. The bone cuts were refined with rongeur and osteotomes, Tibia: The tibia was subluxed anteriorly and th e posterior cruciate ligament was partially released. Retractors were placed to protect the collateral ligaments. The intramedullary cutting block was placed and stabilized. The proximal tibial resectio n was completed with the oscillating saw and refined with tibia rasp. The tibia was sized then broached in the standard fashion. The posterior compartment was acc essed. We resected the menisci, posterior and notch osteophy sonia. Loose bodies were resected from the pos terior compartment of the knee with the rongeur and curette. The posterior capsule was released off the posterior distal femur with the bovie and bustamante elevator. Trialing/Balancing: The knee was trialed with a 9 mm insert. Construct was found to be tight in flexi on and extension. An additinal 2 mm was resected from proximal tibia in standard fashion. The construct was re-trialed with a 9 mm insert The construct was able to achieve full e xtension, 135 degrees of flexion, with excellent patellar tracking, The construct was stable to varus and valgus stress with phy siologic laxity Cementing: The bone surfaces were irrigated with 1 liter of normal saline fluid then dried. The posterior lateral corner was coagulated and bone grafted the tibia canal. The bone cement was applied under finger pr essurization. The tibia component was im pacted, excess bone cement was removed circumferenecially. The femur component was then impacted and excess bone cement was removed in flexion and extension. Las tly, the patella was everted and cemente d into place. The liner was the implacted in the standard fashion. The entire operative field was irrigated with 2 liters of normal saline. Closure: The arthrotomy was closed with #1 ethibo nd sutures. Scarpas fascia was closed with inverted O vicryls. The skin was closed with inverted subcutaneous 2-O vicryls and a running 4-O monocryl. The wound wa s dressed with dermabond, adaptic, 4x4s, abd pads, and an a ce wrap. IV tranexemic acid was given during the closure. Tourniquet was released after the dressing was placed. The entire procedure was completed with the attending surgeon. Laminar air flow body exhaust suits were worn for the entire procedure. A first crusher was utilized for the enti re procedure. The first crusher aided in positioning, retraction, implant sizing/implementation, and closure. The first crusher decreased surgical time and therefore mor-operative morbidity. Post-op Dispo: Patient will be admitted to the PACU and was cleared for discharge home. Pt will PO antibiotics and DVT prophylaxis post operatively. The patient can weight bear as tolerated with no range of motion requirements. 22- modifier justification Patient is obese with a BMI : 35. This i ncreased soft tissue girth required additional dissection, exposure, retraction, and a lipectomy. This lead to increased blood loss, surgical time, and mor-opera tive morbidit and mortality. For these r easons heather is coded with an additional complexity code. Extracted from:Title: Clinical Document Author: Chon Quispe MD Date: 04/26/20 CHIEF COMPLAINT: Right knee pain. HISTORY OF PRESENT ILLNESS: The patient is a 64-year-old female with isolated right knee pain secondary to osteoarthritis, previously treated with oral and topical anti-inflammatories, home exercise pr ogram, physical therapy, steroid injecti ons, activity modification, and weight loss. The patient has persistent pain isolated to the right knee. PAST MEDICAL HISTORY: Significant for a rthritis, asthma, low back pain, depression, diabetes, gallbladder disease, staph infection, pneumonia, stroke, spinal stenosis, fibromyalgia, psoriatic arthritis, and gastric ulcer. PAST SURGICAL HISTORY: Significant for Christine fundoplication, gallbladder removal, and spinal surgeries. ALLERGIES: ADVERSE REACTIONS TO CODEINE , CIPRO, VENLAFAXINE, LEVAQUIN, ORAL NSAIDS WITH FLU-LIKE SYMPTOMS, AND IODINE. CURRENT MEDICATIONS: Levothyroxine, cit alopram, Plavix, Tradjenta, aspirin, Claritin, and vitamin D. SOCIAL HISTORY: The patient denies smok ing or drug use. Admits to social alcohol use. FAMILY HISTORY: Positive for diabetes, hypertension, arthritis, cancer, and stroke. REVIEW OF SYSTEMS: My 12-system review of systems questionnaire was completed and reviewed by myself. Systems evaluated include general, skin, HEENT, psychiatric, pulmonary, genitourinary, gastrointes tinal, musculoskeletal, lymphatics, endo crine, cardiovascular, and neurologic. Pertinent positive for musculoskeletal. Please see HPI for further details. PHYSICAL EXAMINATION: GENERAL: The patient demonstrates mild obese body habitus, in no acute distress. PSYCHIATRIC: Alert and oriented x3. Demonstrates proper mo od and affect. ABDOMEN: Soft, nontender, and nondistended. EYES: Sclerae are normal. SKIN: No evidence of soft tissue swelling, ecchymosis, or b ruising. CARDIOVASCULAR: 1+ DP pulses bilaterally. NEUROLOGIC: Intact bilateral hips, quad s, hamstrings, TA, EHL, and GS. Light touch is intact in L2 through S1 dermatomal distributions. 1+ DTRs bilaterally. EXTREMITIES: The patient's right knee range of motion is 0 to 100, 5-degree alignment, trace varus and valgus laxity. Varus malalignment. Joint line tenderness to palpation. Antalgic gait. Pain on passive range of motion. Palpable crepitus. X-RAYS: Long alignment film demonstrate s varus malalignment with bjsf-yh-[id number] articulation of medial compartment. Previous x-rays demonstrate [id number] articulation of the medial compartment, subchondral sclerosis, periarticular osteophytes, as well as decreased joint space in the anterior aspect of the knee. ASSESSMENT: Right knee osteoarthritis, ICD-10 code M17.11. PLAN: Right total knee arthroplasty. The patient is a candidate for tranexamic acid, Toradol, and Lovenox. Avoid steroid taper secondary to prediabetic status. Risks and benefits discussed with the pa tient. Risk of bleeding, pain, infection, damage to nearby structures, vessel, tendons, nerves, possible need for further surgery, possibility of blood clots in legs or lungs, stroke, heart attack, and . Extracted from:Title: Consult Note Author: Garrick Donahue MD Date: 04/24/20 1.Preop cardiovascular exam(Z01.810) Type of surgery:Right total knee arthroplasty, intermediate risk Surgery specificmedical issues:History of TIA, diabetes mellitus type 2,hyperlipidemia Physical exam concerns: None Patient is able to perform >4METs Activ ity(housework, sweeping and mopping) with out cardiovascular symptoms Patient was able to tolerate right tota l hip arthroplasty on 10/30/2019without cardiovascular complications Baseline EKG showsnormal sinus rhythm Outpatient credit representative:Dr. Uribe [facility] in [place] Revised cardiac risk index scoreis1(his tory of TIA)consistent with 6% risk ofmajor perioperativecardiac eventbased on current risk factors Patient is considered a lowto moderatep erioperativeCardiovascular risk for intermediate risk surgery and may proceed without further preoperativeworkup. Risks and benefits of surgery discussed with patient 2.Right knee pain(M25.561) Scheduled for right total knee arthroplasty with Dr. Larry 04/28/2020 3.History of transient ischemic attack (TIA)(Z86.73) History of TIAapproximately 3 years agof or which patient is on low-dose aspirin which she is instructed to hold 1 week prior to surgery. Patient may restart low-dose aspirin postoperativelyday 1 if cleared from surgical standpoint 4.Type II diabetes mellitus(E11.9) Diet controlled. Hemoglobin A1c is 6.6% on preop labs 5.GERD (gastroesophageal reflux disease)(K21.9) On omeprazole which patient instructed t o take preoperatively morning of surgery 6.Hypothyroid(E03.9) On levothyroxine which patient directed to take preoperatively on the morning of surgery 7.Anxiety and depression(F41.9) Takes escitalopram 8.Chronic pancreatitis(K86.1) Followed by gastroenterology as outpatie nt. Patientrecently started on ursodiol by gastroenterologyfor vague abdominal pain 9.Asthma(J45.909) On Xopenexmedicated dose inhaleras neede d which patient directed to bring with her on the day of surgery 10.Hyperlipidemia(E78.5) Takes Praluent 11.Fibromyalgia(M79.7) Does not take any medications for this 12.Obesity (BMI 30-39.9)(E66.9) Counseled on importance of weight loss 13.Sleep apnea(G47.30) Does not use CPAP 14.Vitamin D deficiency(E55.9) Called and discussedlow vitamin D levels with patient. Patient reports alreadytaking 2000 international unitsof vitamin D daily. Have instructed patient tonot start any supplements until after surgeryat which time patient should takeat least 4000 international unitsof vitamin D dailywhich can be purchased [id number]. Patient expressed understanding, all questions answered [facility] Hospitalist Consult Please [phone] any questions Extracted from:Title: Clinical Document 04/28/2020 [facility] Author: Chon Quispe MD Date: 04/26/20 CHIEF COMPLAINT: Right knee pain. HISTORY OF PRESENT ILLNESS: The patient is a 64-year-old female with isolated right knee pain secondary to osteoarthritis, previously treated with oral and topical anti-inflammatories, home exercise pr ogram, physical therapy, steroid injecti ons, activity modification, and weight loss. The patient has persistent pain isolated to the right knee. PAST MEDICAL HISTORY: Significant for a rthritis, asthma, low back pain, depression, diabetes, gallbladder disease, staph infection, pneumonia, stroke, spinal stenosis, fibromyalgia, psoriatic arthritis, and gastric ulcer. PAST SURGICAL HISTORY: Significant for Christine fundoplication, gallbladder removal, and spinal surgeries. ALLERGIES: ADVERSE REACTIONS TO CODEINE , CIPRO, VENLAFAXINE, LEVAQUIN, ORAL NSAIDS WITH FLU-LIKE SYMPTOMS, AND IODINE. CURRENT MEDICATIONS: Levothyroxine, cit alopram, Plavix, Tradjenta, aspirin, Claritin, and vitamin D. SOCIAL HISTORY: The patient denies smok ing or drug use. Admits to social alcohol use. FAMILY HISTORY: Positive for diabetes, hypertension, arthritis, cancer, and stroke. REVIEW OF SYSTEMS: My 12-system review of systems questionnaire was completed and reviewed by myself. Systems evaluated include general, skin, HEENT, psychiatric, pulmonary, genitourinary, gastrointes tinal, musculoskeletal, lymphatics, endo crine, cardiovascular, and neurologic. Pertinent positive for musculoskeletal. Please see HPI for further details. PHYSICAL EXAMINATION: GENERAL: The patient demonstrates mild obese body habitus, in no acute distress. PSYCHIATRIC: Alert and oriented x3. Demonstrates proper mo od and affect. ABDOMEN: Soft, nontender, and nondistended. EYES: Sclerae are normal. SKIN: No evidence of soft tissue swelling, ecchymosis, or b ruising. CARDIOVASCULAR: 1+ DP pulses bilaterally. NEUROLOGIC: Intact bilateral hips, quad s, hamstrings, TA, EHL, and GS. Light touch is intact in L2 through S1 dermatomal distributions. 1+ DTRs bilaterally. EXTREMITIES: The patient's right knee range of motion is 0 to 100, 5-degree alignment, trace varus and valgus laxity. Varus malalignment. Joint line tenderness to palpation. Antalgic gait. Pain on passive range of motion. Palpable crepitus. X-RAYS: Long alignment film demonstrate s varus malalignment with aggm-yw-mwif articulation of medial compartment. Previous x-rays demonstrate [id number] articulation of the medial compartment, subchondral sclerosis, periarticular osteophytes, as well as decreased joint space in the anterior aspect of the knee. ASSESSMENT: Right knee osteoarthritis, ICD-10 code M17.11. PLAN: Right total knee arthroplasty. The patient is a candidate for tranexamic acid, Toradol, and Lovenox. Avoid steroid taper secondary to prediabetic status. Risks and benefits discussed with the irma aguilar. Risk of bleeding, pain, infection, damage to nearby structures, vessel, tendons, nerves, possible need for further surgery, possibility of blood clots in legs or lungs, stroke, heart attack, and . Extracted from:Title: Consult Note Author: Garrick Donahue MD Date: 04/24/20 1.Preop cardiovascular exam(Z01.810) Type of surgery:Right total knee arthroplasty, intermediate risk Surgery specificmedical issues:History of TIA, diabetes mellitus type 2,hyperlipidemia Physical exam concerns: None Patient is able to perform >4METs Activ ity(housework, sweeping and mopping) with out cardiovascular symptoms Patient was able to tolerate right tota l hip arthroplasty on 10/30/2019without cardiovascular complications Baseline EKG showsnormal sinus rhythm Outpatient credit representative:Dr. Uribe [facility] in [place] Revised cardiac risk index scoreis1(his tory of TIA)consistent with 6% risk ofmajor perioperativecardiac eventbased on current risk factors Patient is considered a lowto moderatep erioperativeCardiovascular risk for intermediate risk surgery and may proceed without further preoperativeworkup. Risks and benefits of surgery discussed with patient 2.Right knee pain(M25.561) Scheduled for right total knee arthroplasty with Dr. Larry 04/28/2020 3.History of transient ischemic attack (TIA)(Z86.73) History of TIAapproximately 3 years agof or which patient is on low-dose aspirin which she is instructed to hold 1 week prior to surgery. Patient may restart low-dose aspirin postoperativelyday 1 if cleared from surgical standpoint 4.Type II diabetes mellitus(E11.9) Diet controlled. Hemoglobin A1c is 6.6% on preop labs 5.GERD (gastroesophageal reflux disease)(K21.9) On omeprazole which patient instructed t o take preoperatively morning of surgery 6.Hypothyroid(E03.9) On levothyroxine which patient directed to take preoperatively on the morning of surgery 7.Anxiety and depression(F41.9) Takes escitalopram 8.Chronic pancreatitis(K86.1) Followed by gastroenterology as outpatie nt. Patientrecently started on ursodiol by gastroenterologyfor vague abdominal pain 9.Asthma(J45.909) On Xopenexmedicated dose inhaleras neede d which patient directed to bring with her on the day of surgery 10.Hyperlipidemia(E78.5) Takes Praluent 11.Fibromyalgia(M79.7) Does not take any medications for this 12.Obesity (BMI 30-39.9)(E66.9) Counseled on importance of weight loss 13.Sleep apnea(G47.30) Does not use CPAP 14.Vitamin D deficiency(E55.9) Called and discussedlow vitamin D levels with patient. Patient reports alreadytaking 2000 international unitsof vitamin D daily. Have instructed patient tonot start any supplements until after surgeryat which time patient should takeat least 4000 international unitsof vitamin D dailywhich can be purchased [id number]. Patient expressed understanding, all questions answered [facility] Hospitalist Consult Please [phone] any questions Extracted from:Title: Clinical Document 10/31/2019 [facility] Author: Bean Garcia MD Date: 10/31/19 Progress Note - Daily [facility] Completed: Oct, 14:51 by Bean Garcia MD RM: 237 - 1D, SE C2A LUPE LEDESMA 64y (: 1955) F Attending: Chon Quispe MD Service: Orthopedic Reason for Admission: M16.11 Working DRG: Code status: None Specified=FULL CODE Current diet: Isolation: No Isolation/Standard Precautions Allergies: topiramate, Levaquin, Cipro, NSAIDs, iodine, Relafen(hives), iodine topical, morphine, codeine SUBJECTIVE Looking much better, sitting up in chair, family is at [facility]. 24hr Labs 10/30 1153 POC Performing Locatio See Note Glucose POC 160 H 10/30 0638 POC Performing Locatio See Note Glucose POC 151 H 10/30 0407 Glucose Lvl 173 H BUN 11 Creatinine Lvl 0.85 Sodium Lvl 136 Potassium Lvl 4.5 Chloride Lvl 103 CO2 30 AGAP 7.5 L Calcium Lvl 8.2 L eGFR 73 WBC 11.0 H RBC 3.47 L Hgb 10.6 L Hct 31.7 L MCV 91.3 MCH 30.6 MCHC 33.6 RDW 13.8 Platelet 243 MPV 6.8 L Segs 83.6 H Monocytes 5.3 Lymphocytes 11.1 L Neutrophils # 9.2 H Lymphocytes # 1.2 Monocytes # 0.6 10/29 2116 POC Performing Locatio See Note Glucose POC 172 H 10/29 1610 WBC 13.0 H RBC 3.42 L Hgb 10.3 L Hct 31.9 L MCV 93.2 MCH 30.2 MCHC 32.4 RDW 13.9 Platelet 222 MPV 6.9 L Smith still necessary (Yes/No): Line still farheenes mark (Yes/No): Vitals Tmp(F) Pulse BP RR SpO2 FIO2 10/30 13:29 ---- 94 118/54 -- --- --- 10/30 04:15 98.3 75 112/49 16 96 --- 10/30 00:05 98.2 74 125/59 16 97 --- 10/29 20:45 98.3 70 112/60 18 97 --- 10/29 19:49 ---- --- ----- 12 97 --- Gen: AAOX3, feeling okay. Neuro: Moving all extremities well CV: RRR, S1 and S2 Lung: CTA-B Abdomen: Non-distended, non-tender, no r ebound or gaurding, bowel sounds are present. : no suprapubic region tenderness. No CVA region tendernes s. EXT: no peripheral edema. Skin: no rashes or other skin color changes. 24 Hr Tmax: 98.3F (36.83c) at 10/30 04:1 5 Vital Signs are the last 5 in the past 48 hours. Date Wt(kg) Wt(lb) Ht(cm) Ht(in) Method 10/29 82.84 182.25 154.94 61.00 Measured 10/24 (initial) 82.73 182.00 Measured 10/24 154.94 61.00 Stated I&O Record In Out Bal 10/30 24hr Tot 252 0 252 10/29 24hr Tot 3394 2000 1394 Medications (36) Active Scheduled Meds (4): 10/30/19 acetaminophen (Tylenol) 1,000 mg PO Q12H 10/30/19 enoxaparin 40 mg SUB-Q [id number] 10/31/19 levothyroxine (Levothroid) 125 microgram PO Q630AM 10/30/19 midodrine 10 mg PO TID Unscheduled Meds (3): 10/30/19 ceFAZolin + sterile water 20 mL 2 gm IVP ONCALL 200 ml/hr 10/30/19 ropivacaine (YUNIOR Pericapsular INJ) 100 mL InFILtra tion(local) ONCALL 10/30/19 vancomycin + Sodium Chloride 0. 9% IV 250 mL 1,000 mg IVPB ONCALL 250 ml/hr PRN Meds (13): 10/30/19 Dextrose 50% in Water IV (Dextrose 50% Syring e (D50W)) 12.5 gm IVP PRN 10/30/19 Dextrose 50% in Water IV (Dextrose 50% Syringe (D50 W)) 25 gm IVP PRN 10/30/19 acetaminophen-hydrocodone ([place] 10/325 oral tablet ) 1 tab PO Q3H 10/30/19 acetaminophen-hydrocodone ([place] 5/325 oral tablet) 1 tab PO Q3H 10/30/19 acetaminophen (Tylenol) 325 mg PO Q3H 10/30/19 glucagon 1 mg IM PRN 10/30/19 insulin lispro 2 unit SUB-Q TID-Before Meals 10/30/19 insulin lispro 4 unit SUB-Q TID-Before Meals 10/30/19 insulin lispro 6 unit SUB-Q TID-Before Meals 10/30/19 insulin lispro 8 unit SUB-Q TID-Before Meals 10/30/19 insulin lispro 10 unit SUB-Q TID-Before Meals 10/30/19 ondansetron (Zofran) 4 mg IV Q6H 10/30/19 oxyCODONE (Roxicodone) 10 mg PO Q3H One Time Meds (15): 10/30/19 (Completed) Sodium Chloride 0. 9% IV (NS (Bolus) IV) 250 mL IV ONCE 250 ml/hr (Completed) calcium chloride (calcium chloride (AN ES)) IV ONCE (Completed) ceFAZolin (ceFAZolin (ANES)) IV ONCE (Completed) dexamethasone (dexamethasone (ANES)) I V ONCE (Completed) esmolol (esmolol (ANES)) IV ONCE (Completed) fentaNYL (fentaNYL (ANES)) IV ONCE (Completed) glycopyrrolate (glycopyrrolate (ANES)) IV ONCE (Completed) lidocaine (lidocaine (ANES)) IV ONCE (Completed) midazolam (midazolam (ANES)) IV ONCE (Completed) phenylephrine (phenylephrine (ANES)) I V ONCE (Completed) propofol (propofol (ANES)) IV ONCE (Completed) rocuronium (rocuronium (ANES)) IV ONCE 10/30/19 (Discontinued) scopolamine (AN ES scopolamine 1.5 mg transdermal film) 1 patch TOP ONCE 10/30/19 (Completed) tranexamic acid + Sodium Chloride 0.9% IV 100 mL 1,000 mg IV ONCE 440 ml/hr (Completed) vasopressin (vasopressin (ANES)) IV ON CE Continuous Infusions (1): 10/30/19 Sodium Chloride 0.45% IV 1,000 mL (1/2 NS 1,000 mL) 1,000 mL 75 ml/hr ASSESSMENT and PLAN *Severe degenerative disease involving the left hip *Status post total left hip arthroplasty. *Hypotension, symptomatic *Postoperative anemia *Diabetes mellitus *Hypothyroidism. Plan Quite hypotensive at this time systolic in 80s. Give NS bolus, a bolus along with NS at 75 cc/h. Begin Midodrin at 10 mg p.o. twice dustin y, she is chronically hypotensive at home. Recheck a systolic approximately 1 hour later is in the 120s at this time and she is feeling better. Monitor overnight. If clinically well, we can anticipate discharge tomorrow. PT/OT. Empiric antibiotic by orthopedics. Lovenox for DVT prophylaxis. Patient seen examined 10/31/2019. Patient status post total left knee arthroplasty. Hypotension is better. Reduce dose of Midodrin. Rx sent. Vitals look stable overall. Okay to DC from our point of view. Extracted from:Title: Clinical Document Author: Chon Quispe MD Date: 10/31/19 Admit Date: 10/30/2019 Discharge Date: 10/31/2019 Reason for Hospitalization: s/p Right VIET Patient was admitted to the floor s/p ab ove procedure. Pt tolerated the surgery well and vital signs were stable in the post operative period. Pt recieved 24 hr abx prohlyaxis, DVT prophlaxis was starte d within 23 hrs of surgery, and was cleared for d/c home by PT on POD# 1. Pt was transfused intraop. Discharge Dx: Right hip osteoarthritis s/p Right VIET Diabetes Obesity Acute Blood Loss Anemia Discharge Instructions WBAT posterior hip precautions f/u Dr. Chon Quispe on 11/22/2019 Discharge Medications Lovenox 40 mg SubQ Q24hr for 10 days post-op [place] 10/325 1-2 tab PO Q4-6Hr PRN Pain Continue all home medcations Contact Dr[facility] if: Fever > 101.5 Increasing pain Redness along incision purulent drainage Extracted from:Title: Clinical Document Author: Bean Garcia MD Date: 10/30/19 Medical consultation for patient who is status post right hi p arthroplasty. History of present illness Ms. Ledesma is a 64-year-old woman with history of diabetes mellitus, hypothyroidism who was admitted for total left hip arthroplasty. Patient underwent the procedure on 10/30/2019. Postoperatively pat ient is somewhat hypotensive with systol ic remaining in the low 80s at times. She is feeling cold and clammy at this time. Family member who is at bedside report that the patient typically runs hypote nsive with a systolic remaining in the l ow 100s which is her normal. At this time she is in the 80s. Patient denies any chest pain or palpitations. Denies feeling short of breath at this time. Denie s feeling dizzy. Patient is given IV fl uids and the low-dose of Midrin started which is helped her symptoms at this time. Past medical history 1. Diabetes mellitus type 2 with hypothyroidism. Medications home: Please admission medicine evaluation form. Surgical history 1. Total left hip arthroplasty. Social history: Denies any tobacco or alcohol use. Allergies: Cipro, codeine, iodine, Levaquin, morphine, NSAID s, to primary. Review of system: As per HPI. Family history: Hypertension diabetes mellitus Physical Examination Temperature 98.3, blood pressure 112/48, pulse of 71, respiratory 16, 90% on room air. Gen: AAOX3, feels cold Neuro: Moving all extremities well CV: RRR, S1 and S2 Lung: CTA-B Abdomen: Non-distended, non-tender, no r ebound or gaurding, bowel sounds are present. : no suprapubic region tenderness. No CVA region tendernes s. EXT: no peripheral edema. Skin: no rashes or other skin color changes. Diagnosis studies Pelvis x-ray status post surgery showing total right hip prosthesis in good position. Laboratory data GFR of 73, electrolytes are normal, calcium is 8.2, white blood cell count of 11, hemoglobin of 10, platelets of 243 Assessment Patient is a 64-year-old woman who status post total left hi p arthroplasty. Acute issues *Severe degenerative disease involving the left hip *Status post total left hip arthroplasty. *Hypotension, symptomatic *Postoperative anemia *Diabetes mellitus *Hypothyroidism. Plan Quite hypotensive at this time systolic in 80s. Give NS bolus, a bolus along with NS at 75 cc/h. Begin Midodrin at 10 mg p.o. twice dustin y, she is chronically hypotensive at home. Recheck a systolic approximately 1 hour later is in the 120s at this time and she is feeling better. Monitor overnight. If clinically well, we can anticipate discharge tomorrow. PT/OT. Empiric antibiotic by orthopedics. Lovenox for DVT prophylaxis. Extracted from:Title: Clinical Document Author: Chon Quispe MD Date: 10/30/19 VIET Op Dication Date: 10/30/2019 Location: [facility] [place] main OR Attending: Chon Quispe MD Pre-op dx: RIght hip osteoarthritis Post-op dx: Right hip osteoarthritis Procedure: Right total hip arthroplasty, 22 [facility] Anesthesiologist : Anesthesia: Correction Officer Head: Mio Estrada EBL: 2 Liter UOP: no smith IVF: see anesthesia note Transfusion: 1 unit prbc Implants: Cece Biomet Femur Stem: Echo,10, LP, std offset Femur Head: Biolox Delta DM, -6, 28 Acetabulum Cup: 48 mm, G7, revision cup Acetabulum Liner: DM liner, 38 5 Acetabular screws Clinical Indications: Patient is a 64 yo female with a diagnos is of hip osteoarthritis status post an extensive conservative medical management program including physical therapy with a home exercise program, anti-inflammato gianni, and attempted weight loss. Patient has exhausted all non-operative management options but has persistent pain and disability from the arthritis. X-rays demonstrate end stage joint space narrowing with bone on bone articulation involving the femoral acetabular joint. Intraoperative evaluation showed complete destruction of the cartilage surfaces in the femoral and acetabular surfaces. Patient understands the risks, benefits, rational, and rehabilitation process inherent with a total hip arthroplasty. Patient expressed understanding that risks include but not limited to bleeding, pain , infection, damage to nearby structures : vessels, tendons, nerves and ligaments. Possibility of hardware failure, loosening, fracture, leg length discrepancy, dislocation, and need for revision surgery . The patient also understands the risks of blood clots in the legs and lungs, stroke, heart-attack, and in the mor-operative period. The patient agreed and gave consent to surgery as indicated. Patient also understands the risks of tr ansfusion including possible transmission of a communicable disease and transfusion reaction. Patient understood these risks and gave consent for transfusion as indicated. Procedure Note: Positioning: Patient brought into the OR and placed s upine on the OR table. After successful anesthetic was applied, the patient was placed in the lateral decubitus position with Right hip up. The operative extremit y was prepped and draped free in the sta ndard fashion. A surgical time out was completed confirming the surgical site, identity, procedure and confirmation of IV antibiotic infusion. Approach: A lateral incision was centered over the greater trochanter with a 10 blade scalpel and dissection was taken to the gluteal fascia. The fascia was incised with cautery and david scissors and the charnley retractor was placed. The piriformis te ndon was identified, tagged, and released off its insertion of the grater trochanter. A T shaped arthrotomy was created in the posterior capsule included the shor t external rotators in a continuous slee ve. The hip was dislocated with flexion and internal rotation. The neck osteotomy was completed at the level of the piriformis fossa and the head was removed with a clamp. The femur was retracted anteri jacqueline after releasing the anterior and inferior capsule. The labrum and pulvinar was resected allowing visualization of the acetabulum. Acetabulum: We began reaming in a medial fashion wit h a 44 mm reamer until we touched down on the cotyloid fossa. We then increased reaming in 1 or 2 mm increments reapproximating the patients natural anteve rsion and abduction until we achieved a size 47. An anterior osteophyte was avulsed off whcih extended to anterior wall minimally. There was an excellent rim fit with a 47 trial. The decision was made to implant a revision cup with multiple screws due to the a nterior wall. We then impacted the definitive implant in approximate 40-45 deg abduction and 20-30 deg anteversion. 5 acetabular screws were placed followed by the definitive liner. Inspection of the inferior capsule relea se demonstrated a persistent bleeder. A vascular clip was utilized to stop the bleeding in the standard fashion. Femur: We then approached the proximal femur by releasing the anterior femur and resecting residual soft tissue from the interior of the greater trochanter. We then resected the lateral femoral neck cortex, id entified the intramedullary canal with s tarting reamer, and removed the residual cortex with the trochanteric reamer. The distal shaft was then widened with increasing straight reamers in 0.5 mm increme nts until we achieved cortical chatter. The proximal femur was then broached with increasing sizes until we achieved a press fit. We reapproximated the patients natural femoral anteversion and st eadily applied lateral pressure. The [facility] car planer then revised the femur neck cut. Trialing/Balancing/X-ray: An AP pelvis xray confirmed accurate pos tioning of the acetabular and femoral components. With a -6 head, leg length descrepancy was minimally long on operative side. The construct was trialed with a -6 head . The hip was stable in the sleeping position. It was able to achieve 45 degrees of internal rotation with the hip flexed to 90 degrees and resting adduction. The re was no posterior impingement with terminal extension and external rotation. The broach was cycled and subsided to resolve LLD. The femur was replaned. Implantation: The femoral broach was removed, canal wa s irrigated, then impacted the definitive femur stem. We examined the calcar and found there was no fracture. The definitive femur head was implanted. The construct was retrialed and found fabian stable to above p arameters. Closure: We irrigated the entire operative field with 2 liter normal saline fluid. The posterior capsule was repaired. The piriformis tendon was reapproximated to the gluteus medius at its insertion on the great er trochanter. The gluteal fascia was th en closed All deep sutures were #1 ethibonds. Scarpas fascia was closed with O-vicryls. Skin was closed with inverted subcutaneous 2-O vicryls and a runnin g 4-O monocryl. The wound was dressed with dermabond, adaptic, telfa, and tape. Laminar flow exhaust suits were worn for the entire procedur e. A surgical first crusher was required for the entire procedure. The first crusher was required for positioning, retraction, implant sizing/implantation, and closure. The assist decreased surgical time and therfore mor-operative morbidity. Post-op Dispo: Patient will be admitted to the floor, r eceive 24 hours of intravenous antibiotics, and DVT prophylaxis. The patient can weight bear as tolerated with posterior hip precautions. 22- modifier justification Patient is obese with a BMI : 35. This i ncreased soft tissue girth required additional dissection, exposure, retraction, and a lipectomy. This lead to increased blood loss, surgical time, and mor-opera tive morbidit and mortality. For these r easons heather is coded with an additional complexity code. Extracted from:Title: Clinical Document Author: Chon Quispe MD Date: 10/27/19 CHIEF COMPLAINT: Right hip pain. HISTORY OF PRESENT ILLNESS: The patient is 63-year-old with pain secondary to osteoarthritis, 7/10 severity pain. Previously had right hip pain, groin, anterior and radiation to the knee, aggravated w ith range of motion, specifically going up and down stairs. Has significant limitation to activities of daily living. Previous treatments include ibuprofen, Mobic, Voltaren gel, home exercise program, activity modification, weight loss, the patient faile d to demonstrate benefit. PAST MEDICAL HISTORY: Significant for a rthritis, asthma, low back pain, depression, diabetes, gallbladder disease, staph infection, pneumonia, stroke, spinal stenosis, fibromyalgia, psoriatic arthritis, and gastric ulcer. PAST SURGICAL HISTORY: Significant for Christine fundoplication, gallbladder removal, and spinal surgeries. ALLERGIES: ADVERSE REACTIONS TO CODEINE , CIPRO, VENLAFAXINE, LEVAQUIN, ORAL NSAIDS WITH FLU-LIKE SYMPTOMS, AND IODINE. CURRENT MEDICATIONS: Levothyroxine, cit alopram, Plavix, Tradjenta, aspirin, Claritin, and vitamin D. SOCIAL HISTORY: The patient denies smok ing or drug use. Admits to social alcohol use. FAMILY HISTORY: Positive for diabetes, hypertension, arthritis, cancer, and stroke. REVIEW OF SYSTEMS: My 12-system review of systems questionnaire was completed and reviewed by myself. Systems evaluated include general, skin, HEENT, psychiatric, pulmonary, genitourinary, gastrointes tinal, musculoskeletal, lymphatics, endo crine, cardiovascular, and neurologic. Pertinent positive for musculoskeletal. Please see HPI for further details. PHYSICAL EXAMINATION: GENERAL: The patient demonstrates mild obese body habitus, in no acute distress. PSYCHIATRIC: Alert and oriented x3. Demonstrates proper mo od and affect. ABDOMEN: Soft, nontender, and nondistended. EYES: Sclerae are normal. SKIN: No evidence of soft tissue swelling, ecchymosis, or b ruising. CARDIOVASCULAR: 1+ DP pulses bilaterally. NEUROLOGIC: Intact bilateral hips, quad s, hamstrings, TA, EHL, and GS. Light touch is intact in L2 through S1 dermatomal distributions. 1+ DTRs bilaterally. EXTREMITIES: The patient's right knee r zechariah of motion is 0 to 90 degrees, minimal internal and external rotation. Positive log roll. Pain on passive range of motion. Antalgic gait. X-RAYS: Upright AP pelvis and frog-leg lateral of the right hip demonstrate [id number] articulation of the right hip joint, subchondral peripheral aspect. Previous MRIs demonstrate extensive periarticular osteophyte formation. X-rays demonstrate decreased joint space in the of right hip joint with subchondral sclerosis and osteophytes. ASSESSMENT: Right hip osteoarthritis, ICD-10 code is M16.11 , diabetes E11.9. PLAN: Right total hip arthroplasty. Patient is a candidate for topical trane xamic acid secondary to history of transient ischemic attack. avoid steroid taper secondary to diabetic status. The patient is a candidate for Toradol and Lovenox. The risks and benefits discussed at robert th with the patient. Risks of surgery, bleeding, pain, infection, damage to nearby structures, vessel, tendons, and nerves; possible need for further surgery, po ssible blood clots in legs or lungs, str brianna, heart attack, and , possible leg length discrepancy, instability, need for further surgery, and loosening. 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 Ananda Landaverde on 06/08/17. PO D #1 -VS stable, patient's afebrile, mild raghavendra kocytosis reactive secondary to steroids -Patient is tolerating PO diet, ambulating in hallway and vo iding. -Discharge Rx (Tramadol, Robaxin, Colace) in chart -Instructed to restart Aspirin tomorrow -Post op discharge instructions (written and verbal) given and all questions answered to the patient's satisfaction. -Patient instructed to follow up with Dr Tommy Landaverde in office in 2 weeks for post op follow up. -Okay to discharge patient home from margaret rosurgery standpoint when medically cleared by primary team. Patient discussed in detail with Dr. Maria G Landaverde and in agreement with above plan. Chuyita De La O MSN, GLUING MACHINE FEEDER, ACNP- Neurosurgery Nurse Practitioner Extracted from:Title: History and Physical Author: Gonsalo Sánchez MD Date: 06/08/17 1. Synovial cyst of lumbar spine s/p munoz inectomy with excision. Will continue post-operative care. 2. Type 2 diabetes with hyperglycemia. I started a sliding scale insulin protocol. 3. Depression. Will resume citalopram. 4. COPD. No symptoms currently. Will resume prn albuterol. 5. Hypothyroidism. Will resume synthroid. Extracted from:Title: Discharge Summary* 05/23/2014 [facility] Author: Chuyita De La O INVENTORY TRANSCRIBER Date: 05/23/14 Discharge Information Discharge Plan Discharge Summary Plan Discharge instructions given: to patient. Discharge disposition: discharge to home. Prescriptions: continue same medications, written and given to patient. Education and Follow-up Counseled: patient, regarding diagnosis, regarding treatment, regarding medications. Plan of Care No Data Provided for This Section Social History Social History Date Source No data available for this 08/03/2019 [employer] section Social History TypeResponse 05/14/2014 [facility] Substance Abuse Use: None. Sexual 1 Exercise 2 Employment/School 3 Alcohol Never Smoking Status Never smoker; Exposure to Tobacco Smoke None; Cigarette Smoking Last 365 Days No; Reg Smoking Cessation Counseling No entered on: 06/08/17 1NO [id number] COMMENT Social History TypeResponse 05/14/2014 [facility] Alcohol Never Employment/School 1 Exercise 2 Sexual 3 Substance Abuse Use: None. Smoking Status Never smoker; Exposure to Tobacco Smoke None; Cigarette Smoking Last 365 Days No; Reg Smoking Cessation Counseling No entered on: 06/08/17 1NO [id number] COMMENT Social History TypeResponse 05/14/2014 [facility] [place] Alcohol Never Employment/School 1 Exercise 2 Sexual 3 Substance Abuse Use: None. Smoking Status Never smoker; Exposure to Tobacco Smoke None; Cigarette Smoking Last 365 Days No; Reg Smoking Cessation Counseling No entered on: 06/08/17 1NO [id number] COMMENT Social History TypeResponse 05/14/2014 [facility] Alcohol Never Employment/School 1 Exercise 2 Sexual 3 Substance Abuse Use: None. Smoking Status Never smoker; Exposure to Tobacco Smoke None; Cigarette Smoking Last 365 Days No; Reg Smoking Cessation Counseling No entered on: 10/30/19 1NO [id number] COMMENT Social History TypeResponse 05/14/2014 [facility] Alcohol Never Employment/School 1 Exercise 2 Sexual 3 Substance Abuse Use: None. Smoking Status Never smoker; Exposure to Tobacco Smoke None; Cigarette Smoking Last 365 Days No; Reg Smoking Cessation Counseling No entered on: 10/30/19 1NO [id number] COMMENT Social History TypeResponse 05/14/2014 [facility] Alcohol Never Employment/School 1 Exercise 2 Sexual 3 Substance Abuse Use: None. Smoking Status Never smoker; Exposure to Tobacco Smoke None; Cigarette Smoking Last 365 Days No; Reg Smoking Cessation Counseling No entered on: 04/28/20 1NO [id number] COMMENT Family History No Data Provided for This Section Advance Directives No Data Provided for This Section Functional Status No Data Provided for This Section
--- OUTSIDE RECORDS SUMMARY | 2020-05-30 16:10 | XMS REPORT | Summary of Care ---
:1955 Author Organization [facility] Address [address] [place] [id number]- Encounter HQ Magan_bety(FIN) [id number] Date(s): 04/28/20 - 04/28/20 [facility] [address] [place] [id number]- [phone] Discharge Disposition: Home or Self Care Attending Physician: Chon Quispe MD Referring Physician: Chon Quispe MD Vital Signs Most recent to oldest 1 2 3 [Reference Range]: Height 153.92 cm 157.48 cm (04/24/20 9:50 AM) (04/23/20 10:08 AM) Temperature Oral [96.4-99.1 97.7 DegF 98.0 DegF DegF] (04/28/20 1:30 PM) (04/24/20 9:50 AM) Blood Pressure 120/72 mmHg 119/68 mmHg 136/72 mmHg [90-140/60-90 mmHg] (04/28/20 1:30 PM) (04/28/20 1:00 PM) (04/28 12:45 PM) Respiratory Rate [- 16 BRMIN 20 BRMIN 11 BRMIN BRMIN] (04/28/20 1:30 PM) (04/28/20 1:00 PM) *LOW* (04/28/20 12:45 PM) Peripheral Pulse Rate 74 bpm 83 bpm [60-100 bpm] (04/28/20 1:30 PM) (04/24/20 9:50 AM) Weight 83.864 kg 82.727 kg (04/28/20 7:52 AM) (04/23/20 10:08 AM) Body Mass Index 35.4 m2 33.36 m2 (04/28/20 7:52 AM) (04/23/20 10:08 AM) Problem List Condition Effective Dates Status Health Status Informant Asthma(Confirmed) Active Back ache(Confirmed) Resolved Obesity (BMI 30-39.9)(Confirmed) Active Chronic pancreatitis(Confirmed) Active COPD(Confirmed) Resolved Depression(Confirmed) Active Diabetes(Confirmed) Active Fibromyalgia(Confirmed) Active GERD (gastroesophageal reflux Active disease)(Confirmed) History of transient ischemic attack Active (TIA)(Confirmed) Hyperlipidemia(Confirmed) Active Hypothyroid(Confirmed) Active Anxiety and depression(Confirmed) Active Neck ache(Confirmed) Resolved OCD (obsessive compulsive Active disorder)(Confirmed) Osteoarthritis(Confirmed) Active Degenerative joint disease of Active knee(Confirmed) Osteopenia(Confirmed) Active Rheumatic fever(Confirmed) 1977 Resolved Sleep apnea(Confirmed) Active Thyroid dysfunction(Confirmed)1 Active Type II diabetes mellitus(Confirmed) Active 1hypothryoid Allergies, Adverse Reactions, Alerts Substance Reaction Severity Status Food Nuts1 Active NSAIDs Active codeine Active topiramate Active Cipro Active Levaquin Active Relafen hives Active iodine Active 1PECANS Medications 1/2 NS 1,000 mL 1,000 mL, Rate: 75 ml/hr, Infuse over: 13.3 hr, Route: IV, Dosing Weight 83.864 kg, Total Volume: 1,000, Start date: 04/28/20 11:38:00 RESPIRATORY SCIENTIST, Duration: 30 day, Stop date: 05/28/20 11:37:00 RESPIRATORY SCIENTIST, 1.93, m2,0 Start Date: 04/28/20 Stop Date: 04/28/20 Status: Discontinuedaspirin 325 mg tablet, enteric coated 325 mg = 1 tab, PO, BID, # 60 tab, 0 Refill(s), given to patient Start Date: 04/28/20 Status: OrderedceFAZolin 2 gm, 50 mL, Route: IVP, Drug form: INJ, ONCALL, Dosing Weight 83.892, kg, (Patients weighing < 120 kg), Start date: 04/28/20 8:00:00 RESPIRATORY SCIENTIST, Duration: 1 doses or times, ABX Indication: Surgical Prophylaxis, 0 Start Date: 04/28/20 Stop Date: 04/28/20 Status: DiscontinuedceFAZolin (ANES) Route: IV, Drug form: INJ, ONCE, Stop date: 04/28/20 10:34:00 RESPIRATORY SCIENTIST Start Date: 04/28/20 Stop Date: 04/28/20 Status: CompletedceFAZolin (SCIP) + Sodium Chloride 0.9% IV 100 mL 1 gm, Route: IVPB, Drug form: PDR/INJ, Q6H, Dosing Weight 83.864, kg, Start date: 04/28/20 16:00:00 RESPIRATORY SCIENTIST, Duration: 3 doses or times, Stop date: 04/29/20 4:00:00 RESPIRATORY SCIENTIST, ABX Indication: Surgical Prophylaxis, 0 Notes: (Same As: Blossom Dos Santos) MEDICATION WASTE Product Size: 1000 mgProduct Wasted: ___ mg Start Date: 04/28/20 Stop Date: 04/28/20 Status: Discontinuedcelecoxib 200 mg, 1 cap, Route: PO, Drug form: CAP, ONCALL, Dosing Weight 83.892, kg, (for CrCl > 90 mL/min), Start date: 04/28/20 8:00:00 RESPIRATORY SCIENTIST, Duration: 30 day, Stop date: 05/28/20 7:59:00 RESPIRATORY SCIENTIST, 0 Notes: NSAID. Please check indication. Not for seizure. (Same As: CeleBREX) Start Date: 04/28/20 Stop Date: 04/28/20 Status: Canceleddexamethasone 4 mg, 1 mL, Route: IV, Drug form: INJ, ONCE, Dosing Weight 83.864, kg, Start date: 04/29/20 9:00:00 RESPIRATORY SCIENTIST, Stop date: 04/29/20 9:00:00 RESPIRATORY SCIENTIST, 0 Notes: Concentration: 4mg/ml Start Date: 04/29/20 Stop Date: 04/28/20 Status: Canceleddexamethasone 4 mg, 1 tab, Route: PO, Drug form: TAB, ONCE, Dosing Weight 83.864, kg, Start date: 04/30/20 9:00:00CST, Stop date: 04/30/20 9:00:00 RESPIRATORY SCIENTIST, 0 Notes: Give with food.(Same As: Decadron) Start Date: 04/30/20 Stop Date: 04/28/20 Status: Canceleddexamethasone 2 mg, 0.5 tab, Route: PO, Drug form: TAB, ONCE, Dosing Weight 83.864, kg, Start date: 04/28/20 12:00:00 RESPIRATORY SCIENTIST, Stop date: 04/28/20 12:00:00 RESPIRATORY SCIENTIST, 0 Notes: Give with food.(Same As: Decadron) Start Date: 04/28/20 Stop Date: 04/28/20 Status: Deleteddexamethasone 4 mg, 1 mL, Route: IV, Drug form: INJ, ONCE, Dosing Weight 83.864, kg, Start date: 04/28/20 11:38:00CST, Stop date: 04/28/20 11:38:00 RESPIRATORY SCIENTIST, 0 Notes: Concentration: 4mg/ml Start Date: 04/28/20 Stop Date: 04/28/20 Status: Deleteddexamethasone 4 mg, 1 tab, Route: PO, Drug form: TAB, ONCE, Dosing Weight 83.864, kg, Start date: 04/28/20 11:38:00 RESPIRATORY SCIENTIST, Stop date: 04/28/20 11:38:00 RESPIRATORY SCIENTIST, 0 Notes: Give with food.(Same As: Decadron) Start Date: 04/28/20 Stop Date: 04/28/20 Status: Deleteddexamethasone 2 mg, 0.5 tab, Route: PO, Drug form: TAB, ONCE, Dosing Weight 83.864, kg, Start date: 04/28/20 11:38:00 RESPIRATORY SCIENTIST, Stop date: 04/28/20 11:38:00 RESPIRATORY SCIENTIST, 0 Notes: Give with food.(Same As: Decadron) Start Date: 04/28/20 Stop Date: 04/28/20 Status: Deleteddiclofenac sodium 1% topical cream 0 Refill(s) Start Date: 04/23/20 Status: Orderedenoxaparin 40 mg, 0.4 mL, Route: SUB-Q, Drug form: INJ, [id number], Dosing Weight 83.864, kg, Start date: 04/29/20 10:00:00 RESPIRATORY SCIENTIST, Duration: 30 day, Stop date: 05/28/20 10:00:00 RESPIRATORY SCIENTIST, 0 Notes: (Same as: Lovenox) Start Date: 04/29/20 Stop Date: 04/28/20 Status: Canceledescitalopram 40 mg, PO, Daily, 0 Refill(s) Start Date: 04/23/20 Status: OrderedfentaNYL (ANES) Route: IV, Drug form: INJ, ONCE, Stop date: 04/28/20 10:19:00 RESPIRATORY SCIENTIST Start Date: 04/28/20 Stop Date: 04/28/20 Status: Completedgabapentin 300 mg, 1 cap, Route: PO, Drug form: CAP, ONCALL, Dosing Weight 83.892, kg, Start date: 04/28/20 8:00:00 RESPIRATORY SCIENTIST, Duration: 30 day, Stop date: 05/28/20 7:59:00 RESPIRATORY SCIENTIST, 0 Notes: (Same as: Neurontin) Start Date: 04/28/20 Stop Date: 04/28/20 Status: CompletedketAMINE (ANES) Route: IV, Drug form: INJ, ONCE, Stop date: 04/28/20 10:24:00 RESPIRATORY SCIENTIST Start Date: 04/28/20 Stop Date: 04/28/20 Status: CompletedLactated Ringers Injection IV (ANES) 1000 mL Route: IV, Total Volume: 1,000, Start date: 04/28/20 9:34:00 RESPIRATORY SCIENTIST, Stop date: 04/28/20 10:34:00 RESPIRATORY SCIENTIST Start Date: 04/28/20 Stop Date: 04/28/20 Status: Completedlevothyroxine 112 mcg (0.112 mg) oral capsule 112 microgram = 1 cap, PO, Daily, # 30 cap, 3 Refill(s) Start Date: 04/23/20 Status: Orderedlidocaine (ANES) Route: IV, Drug form: INJ, ONCE, Stop date: 04/28/20 10:14:00 RESPIRATORY SCIENTIST Start Date: 04/28/20 Stop Date: 04/28/20 Status: CompletedLR IV 1,000 mL 1,000 mL, Rate: 75 ml/hr, Infuse over: 13.3 hr, Route: IV, Dosing Weight 83.864 kg, Total Volume: 1,000, Start date: 04/28/20 8:15:00 RESPIRATORY SCIENTIST, Duration: 30 day, Stop date: 05/28/20 8:14:00 RESPIRATORY SCIENTIST, 1.93, m2, 0 Start Date: 04/28/20 Stop Date: 04/28/20 Status: Discontinuedmidazolam (ANES) Route: IV, Drug form: SOLN, ONCE, Stop date: 04/28/20 10:19:00 RESPIRATORY SCIENTIST Start Date: 04/28/20 Stop Date: 04/28/20 Status: CompletedNorco 10/325 oral tablet 1 tab, Route: PO, Drug Form: TAB, Dosing Weight 83.864, kg, Q3H, PRN Pain Score 4-6, Start date: 04/28/20 11:38:00 RESPIRATORY SCIENTIST, Duration: 30 day, Stop date: 05/28/20 11:37:00 RESPIRATORY SCIENTIST, 0 Notes: Do not exceed 4gm/day of acetaminophen. (Same as: [place] 325/10) Start Date: 04/28/20 Stop Date: 04/28/20 Status: DiscontinuedNorco 5/325 oral tablet 1 tab, Route: PO, Drug Form: TAB, Dosing Weight 83.864, kg, Q3H, PRN Pain Score 1-3, Start date: 04/28/20 11:38:00 RESPIRATORY SCIENTIST, Duration: 30 day, Stop date: 05/28/20 11:37:00 RESPIRATORY SCIENTIST, 0 Notes: (Same as: [place] 325/5) Do not exceed 4gm/day of acetaminophen. Start Date: 04/28/20 Stop Date: 04/28/20 Status: Discontinuedomeprazole 20 mg oral delayed release capsule 20 mg = 1 cap, PO, Daily, 0 Refill(s) Start Date: 04/23/20 Status: OrderedOxyCONTIN 10 mg, 1 tab, Route: PO, Drug form: ERTAB, ONCALL, Dosing Weight 83.892, kg, Start date: 04/28/20 8:00:00 RESPIRATORY SCIENTIST, Duration: 30 day, Stop date: 05/28/20 7:59:00 RESPIRATORY SCIENTIST, 0 Notes: Do not crush or chew.(Same as: OxyContin) Start Date: 04/28/20 Stop Date: 04/28/20 Status: CompletedPercocet 10/325 oral tablet 1 tab, PO, Q3H, PRN Pain Score 7-10, 0 Refill(s) Start Date: 04/28/20 Status: OrderedPercocet 10/325 oral tablet 1 tab, Route: PO, Drug Form: TAB, Dosing Weight 83.864, kg, Q3H, PRN Pain Score 7-10, Start date: 04/28/20 11:38:00 RESPIRATORY SCIENTIST, Duration: 30 day, Stop date: 05/28/20 11:37:00 RESPIRATORY SCIENTIST, 0 Notes: Do not exceed 4gm/day of acetaminophen. (Same as: [id number]) Start Date: 04/28/20 Stop Date: 04/28/20 Status: Discontinuedphenylephrine (ANES) Route: IV, Drug form: INJ, ONCE, Stop date: 04/28/20 10:34:00 RESPIRATORY SCIENTIST Start Date: 04/28/20 Stop Date: 04/28/20 Status: Completedpolymyxin B sulfate + Sodium Chloride 0.9% IV 250 mL 125,000 unit, Route: IRRIG, ONCALL, Start date: 04/28/20 5:00:00 RESPIRATORY SCIENTIST, Duration: 1 doses or times, Stop date: 04/28/20 23:59:00 RESPIRATORY SCIENTIST, ABX Indication: Surgical Prophylaxis, 0 Notes: (Same as: Polymyxin B Sulfate) Start Date: 04/28/20 Stop Date: 04/28/20 Status: Discontinuedpropofol (ANES) Route: IV, Drug form: INJ, ONCE, Stop date: 04/28/20 10:14:00 RESPIRATORY SCIENTIST Start Date: 04/28/20 Stop Date: 04/28/20 Status: Completedpropofol (ANES) 10 mg Route: IV, Drug form: INJ, Start date: 04/28/20 9:43:00 RESPIRATORY SCIENTIST, Stop date: 04/28/20 10:43:00 RESPIRATORY SCIENTIST Start Date: 04/28/20 Stop Date: 04/28/20 Status: CompletedRECK Pericapsular INJ 100 mL, Route: InFILtration(local), Drug Form: INJ, Dosing Weight 83.892, kg, ONCALL, Start date: 04/28/20 8:00:00 RESPIRATORY SCIENTIST, Stop date: 04/28/20 12:00:00 RESPIRATORY SCIENTIST, 0 Notes: NOT FOR IV useEach mL contains: Ropivacaine 2.46 mg, Epinephrine 0.005 mg, Clonidine 0.0008 mg and Ketorolac 0.3 mg in Sodium Chloride Start Date: 04/28/20 Stop Date: 04/28/20 Status: Discontinuedropivacaine 0.5% 246.25 mg + EPINEPHrine 0.5 mg + cloNIDine 80 microgram + Sodium Chloride 0.9% IV 99 ml/hr, Route: intra-ARTICULAR, ONCALL, Start date: 04/28/20 5:00:00 RESPIRATORY SCIENTIST, Stop date: 04/28/20 23:59:00 RESPIRATORY SCIENTIST, 0 Start Date: 04/28/20 Stop Date: 04/28/20 Status: DiscontinuedSaline Flush 0.9% 10 ml, Route: IVP, Drug Form: INJ, Dosing Weight 83.864, kg, Q12H, Start date: 04/29/20 21:00:00 RESPIRATORY SCIENTIST, Duration: 30 day, Stop date: 05/29/20 9:00:00 RESPIRATORY SCIENTIST, 0 Notes: Same as: BD Posiflush Sterile Start Date: 04/29/20 Stop Date: 04/28/20 Status: CanceledSaline Flush 0.9% 10 ml, Route: IVP, Drug Form: INJ, Dosing Weight 83.864, kg, PRN, PRN Line Flush, Start date: 04/29/20 11:38:00 RESPIRATORY SCIENTIST, Duration: 30 day, Stop date: 05/29/20 11:37:00 RESPIRATORY SCIENTIST, 0 Notes: Same as: BD Posiflush Sterile Start Date: 04/29/20 Stop Date: 04/28/20 Status: Canceledtranexamic acid + Sodium Chloride 0.9% IV 100 mL 1,000 mg, 10 mL, Route: IV, Drug form: INJ, ONCE, Dosing Weight 83.864, kg, Start date: 04/28/20 18:00:00 RESPIRATORY SCIENTIST, Stop date: 04/28/20 18:00:00 RESPIRATORY SCIENTIST, 0 Notes: (Same As: Cyklokapron) Start Date: 04/28/20 Stop Date: 04/28/20 Status: Canceledtranexamic acid + Sodium Chloride 0.9% IV 100 mL 1,000 mg, 10 mL, Route: IV, ONCALL, Dosing Weight 83.892, kg, Start date: 04/28/20 8:00:00 RESPIRATORY SCIENTIST, Duration: 30 day, Stop date: 05/28/20 7:59:00 RESPIRATORY SCIENTIST, 0 Notes: (Same As: Cyklokapron) Start Date: 04/28/20 Stop Date: 04/28/20 Status: Discontinuedtranexamic acid + Sodium Chloride 0.9% IV 100 mL 1,000 mg, 10 mL, Route: IV, Drug form: INJ, ONCE, Dosing Weight 83.864, kg, Start date: 04/28/20 11:38:00 RESPIRATORY SCIENTIST, Stop date: 04/28/20 11:38:00 RESPIRATORY SCIENTIST, 0 Notes: (Same As: Cyklokapron) Start Date: 04/28/20 Stop Date: 04/28/20 Status: DeletedTylenol 1,000 mg, 2 tab, Route: PO, Drug form: TAB, ONCALL, Dosing Weight 83.892, kg, Start date: 04/28/20 8:00:00 RESPIRATORY SCIENTIST, Duration: 30 day, Stop date: 05/28/20 7:59:00 RESPIRATORY SCIENTIST, 0 Notes: Max acetaminophen 4000 mg/day (4 gm/day). (Same as: Tylenol Extra Strength) Start Date: 04/28/20 Stop Date: 04/28/20 Status: Completedvancomycin 500 mg, 250 mL, Route: IRRIG, Drug form: SOLN, ONCALL, Start date: 04/28/20 5:00:00 RESPIRATORY SCIENTIST, Stop date: 04/28/20 23:59:00 RESPIRATORY SCIENTIST, ABX Indication: Surgical Prophylaxis, 0 Notes: FOR OR USE ONLY Start Date: 04/28/20 Stop Date: 04/28/20 Status: Discontinuedvancomycin 1.25 gm, 250 mL, Route: IVPB, Drug form: INJ, ONCALL, Dosing Weight 83.892, kg, Start date: 208:00:00 RESPIRATORY SCIENTIST, Duration: 1 doses or times, ABX Indication: Surgical Prophylaxis, 0 Notes: TIME CRITICAL MEDICATIONSame as: Vancocin-NS (premixed)Infusion rate< 1000 mg: infuse over1 [id number] - 1500 mg: infuse over 1.5 [id number] - 2000 mg: infuse over 2 hours> 2001 mg: infuse over 2.5 hours Start Date: 04/28/20 Stop Date: 04/28/20 Status: Completedvancomycin (SCIP) + Sodium Chloride 0.9% IV 250 mL 1,000 mg, Route: IVPB, Q12H, Dosing Weight 83.864, kg, Time Critical Medication, Start date: 04/28/20 20:00:00 RESPIRATORY SCIENTIST, Duration: 2 doses or times, Stop date: 04/29/20 8:00:00 RESPIRATORY SCIENTIST, Pharmacy to adjust dose for renal function, ABX Indication: Surgical Proph... Notes: TIME CRITICAL MEDICATION(Same As: Vancocin)Infusion rate< 1000 mg: infuse over 1 [id number] - 1500 mg: infuse over 1.5 [id number] - 2000 mg: infuse over 2 hours> 2001 mg: infuse over 2.5 hoursFor adult patients only: Round to nearest 250 mg per Medical Staff approval MEDICATION WASTE Product Size: 1000 mgProduct Wasted: ___ mg Start Date: 04/28/20 Stop Date: 04/28/20 Status: CanceledZofran 4 mg, 2 mL, Route: IV, Drug form: INJ, Q8H, Dosing Weight 83.864, kg, Start date: 04/28/20 16:00:00 RESPIRATORY SCIENTIST, Duration: 3 doses or times, Stop date: 04/29/20 8:00:00 RESPIRATORY SCIENTIST, 0 Notes: (Same as: Zofran) MEDICATION WASTE Product Size: 4 mgProduct Wasted: ___ mg Start Date: 04/28/20 Stop Date: 04/28/20 Status: DiscontinuedZofran 4 mg, 2 mL, Route: IV, Drug form: INJ, Q6H, Dosing Weight 83.864, kg, PRN Nausea, Start date: 04/28/20 11:38:00 RESPIRATORY SCIENTIST, Duration: 30 day, Stop date: 05/28/20 11:37:00 RESPIRATORY SCIENTIST, 0 Notes: (Same as: Zofran) MEDICATION WASTE Product Size: 4 mgProduct Wasted: ___ mg Start Date: 04/28/20 Stop Date: 04/28/20 Status: Discontinued Results Most recent to oldest [Reference Range]: 1 2 Neutrophils # [1.5-8.1 K/CMM] 3.0 K/CMM 3.7 K/CMM (04/28/20 12:24 PM) (04/24/20 10:08 AM) Lymphocytes # [1.0-5.5 K/CMM] 5.7 K/CMM 2.3 K/CMM *HI* (04/24/20 10:08 AM) (04/28/20 12:24 PM) Monocytes # [0.0-0.8 K/CMM] 0.7 K/CMM 0.4 K/CMM (04/28/20 12:24 PM) (04/24/20 10:08 AM) Eosinophils # [0.0-0.5 K/CMM] 0.3 K/CMM 0.2 K/CMM (04/28/20 12:24 PM) (04/24/20 10:08 AM) Basophils # [0.0-0.2 K/CMM] 0.1 K/CMM (04/28/20 12:24 PM) eGFR 78 mL/min/1.73m2 1 79 mL/min/1.73m2 2 *NA* *NA* (04/28/20 12:24 PM) (04/24/20 10:08 AM) ABO/Rh O NEG *Unknown* (04/24/20:08 AM) Antibody Scrn Negative (04/24/20 10:08 AM) Albumin Lvl [3.5-5.0 g/dL] 3.5 g/dL (04/24/20 10:08 AM) AGAP [10.0-20.0 mEq/L] 12.5 mEq/L 12.2 mEq/L (04/28/20 12:24 PM) (04/24/20 10:08 AM) Basophils [0.0-1.0 %] 0.9 % 0.5 % (04/28/20 12:24 PM) (04/24/20 10:08 AM) BUN [7-22 mg/dL] 10 mg/dL 11 mg/dL (04/28/20 12:24 PM) (04/24/20 10:08 AM) Calcium Lvl [8.5-10.5 mg/dL] 8.8 mg/dL 8.8 mg/dL (04/28/20 12:24 PM) (04/24/20 10:08 AM) Chloride Lvl [95-109 mEq/L] 103 mEq/L 103 mEq/L (04/28/20 12:24 PM) (04/24/20 10:08 AM) CO2 [24-32 mEq/L] 28 mEq/L 31 mEq/L (04/28/20 12:24 PM) (04/24/20 10:08 AM) Creatinine Lvl [0.50-1.40 mg/dL] 0.81 mg/dL 0.80 mg /dL (04/28/20 12:24 PM) (04/24/20 10:08 AM) Eosinophils [0.0-4.0 %] 3.3 % 2.6 % (04/28/20 12:24 PM) (04/24/20:08 AM) Glucose Lvl [70-99 mg/dL] 129 mg/dL 125 mg/dL *HI* *HI* (04/28/20 12:24 PM) (04/24/20:08 AM) Hct [36.0-48.0 %] 41.5 % 42.2 % (04/28/20 12:24 PM) (04/24/20:08 AM) Hgb [12.0-16.0 g/dL] 13.7 g/dL 13.9 g/dL (04/28/20 12:24 PM) (04/24/20:08 AM) Hgb A1C [<=5.6 %] 6.6 % *HI* (04/24/20:08 AM) INR [0.85-1.17] 0.93 (04/24/20:08 AM) Potassium Lvl [3.5-5.1 mEq/L] 4.5 mEq/L 4.2 mEq/L (04/28/20 12:24 PM) (04/24/20:08 AM) Lymphocytes [20.0-40.0 %] 58.8 % 34.8 % *HI* (04/24/20 10:08 AM) (04/28/20 12:24 PM) MCH [27.0-31.0 pg] 30.4 pg 30.2 pg (04/28/20 12:24 PM) (04/24/20:08 AM) MCHC [32.0-36.0 g/dL] 33.0 g/dL 32.9 g/dL (04/28/20 12:24 PM) (04/24/20:08 AM) MCV [80.0-98.0 fL] 92.3 fL 91.7 fL (04/28/20 12:24 PM) (12/10/20 10:08 AM) Monocytes [2.0-12.0 %] 6.7 % 5.9 % (04/28/20 12:24 PM) (04/24/20:08 AM) MPV [7.4-10.4 fL] 7.0 fL 7.4 fL *LOW* (04/24/20 10:08 AM) (04/28/20 12:24 PM) Sodium Lvl [135-145 mEq/L] 139 mEq/L 142 mEq/L (04/28/20 12:24 PM) (04/24/20:08 AM) Platelet [133-450 K/CMM] 360 K/CMM 399 K/CMM (04/28/20 12:24 PM) (04/24/20:08 AM) Segs [45.0-75.0 %] 30.3 % 56.2 % *LOW* (04/24/20:08 AM) (04/28/20 12:24 PM) PT [12.0-14.7 seconds] 12.5 seconds (04/24/20:08 AM) PTT [22.9-35.8 seconds] 31.2 seconds (04/24/20:08 AM) Coronavirus (COVID-19) SHARMIN [Not Detected] Not Detected (04/24/20 11:19 AM) RBC [4.20-5.40 M/CMM] 4.49 M/CMM 4.60 M/CMM (04/28/20 12:24 PM) (04/24/20 10:08 AM) RDW [11.5-14.5 %] 14.1 % 14.5 % (04/28/20 12:24 PM) (04/24/20 10:08 AM) UA Bacteria [None Seen /HPF] Few /HPF (04/24/20:08 AM) UA Bili [Negative] Negative *NA* (04/24/20 10:08 AM) UA Blood [Negative] Negative (04/24/20 10:08 AM) UA Color [Yellow] Yellow *NA* (04/24/20 10:08 AM) UA Glucose [Negative mg/dL] 250 mg/dL *ABN* (04/24/20 10:08 AM) UA Ketones [Negative] Negative *NA* (04/24/20 10:08 AM) UA Leuk Est [Negative] Negative (04/24/20 10:08 AM) UA Nitrite [Negative] Negative (04/24/20 10:08 AM) UA pH [5.0-8.0] 6.0 (04/24/20 10:08 AM) UA Protein [Negative] Negative (04/24/20 10:08 AM) UA RBC [0-2 /HPF] 0-2 /HPF (04/24/20 10:08 AM) UA Spec Grav [<=1.030] <=1.005 *NA* (04/24/20 10:08 AM) UA Sq Epi [Few /LPF] Few /LPF (04/24/20 10:08 AM) UA Turbidity [Clear] Clear (04/24/20 10:08 AM) UA Urobilinogen [0.1-1.0 EU/dL] 0.2 EU/dL (04/24/20 10:08 AM) UA WBC [None Seen /HPF] 0-2 /HPF (04/24/20 10:08 AM) Vitamin D, 25-OH, Total [30-100 ng/mL] 29 ng/mL 3 *LOW* (04/24/20 10:08 AM) WBC [3.7-10.4 K/CMM] 9.7 K/CMM 6.6 K/CMM (04/28/20 12:24 PM) (04/24/20 10:08 AM) Micro? Performed (04/24/20 10:08 AM) 1Result Comment: The eGFR is calculated using the CKD-EPI formula. In most young, healthy individualsthe eGFR will be >90 mL/min/1.73m2. The eGFR declines with age. An eGFR of 60-89 may be normal insome populations, particularly the elderly, for whom the CKD-EPI formula has not been extensively validated. Use of the eGFR is not recommended in the following populations: Individuals with unstable creatinine concentrations, including patients and those with serious co-morbid conditions. Patients with extremes in muscle mass or diet. The data above are obtained from the National Kidney Disease Education Program (NKDEP) which additionally recommends that when the eGFR is used in patients with extremes of body mass index for purposesof drug dosing, the eGFR should be multiplied by the estimated BMI.2Result Comment: The eGFR is calculated using the CKD-EPI formula. In most young, healthy individualsthe eGFR will be >90 mL/min/1.73m2. The eGFR declines with age. An eGFR of 60-89 may be normal insome populations, particularly the elderly, for whom the CKD-EPI formula has not been extensively validated. Use of the eGFR is not recommended in the following populations: Individuals with unstable creatinine concentrations, including patients and those with serious co-morbid conditions. Patients with extremes in muscle mass or diet. The data above are obtained from the National Kidney Disease Education Program (NKDEP) which additionally recommends that when the eGFR is used in patients with extremes of body mass index for purposesof drug dosing, the eGFR should be multiplied by the estimated BMI.3Result Comment: Vitamin D Status 25-OH Vitamin D: Deficiency: <20 ng/mL Insufficiency: 20 - 29 ng/mL Optimal: > or = 30 ng/mL For 25-OH Vitamin D testing on patients on D2-supplementation and patients for whom quantitation of D2 and D3 fractions is required, the [employer]TM) 25-OH VIT D, (D2,D3), LC/MS/MS is recommended: order code 82183 (patients >2yrs). See Note 1 Note 1 For additional information, please refer to http://education.[employer]/faq/LAU126 (This link is being provided for informational/ educational purposes only.) Lab test performed by: [facility] [address] [id number] ALVAREZ BUENO MD Immunizations Given and Recorded Vaccine Date Status Refusal Reason pneumococcal 23-valent vaccine 05/23/14 Given influenza virus vaccine, inactivated 05/23/14 Given Procedures Procedure Date Related Diagnosis Body Site Status Carpal tunnel release1 Compl eted Cataract surgery2 Completed Cervical spinal fusion by anterior Completed technique Cholecystectomy Completed Elbow joint operations3 Comp leted Foot fasciectomy4 Completed Foot joint operations5 Compl eted Hysterectomy Completed Knee joint operation6 Comple jose Laminectomy Completed Christine fundoplication Comple jose Plantar fasciotomy Completed Shoulder joint operations7 C ompleted [id number]. [id number] SPURS BOTH [id number] Social History Social History Type Response Alcohol Never Employment/School 1 Exercise 2 Sexual 3 Substance Abuse Use: None. Smoking Status Never smoker; Exposure to To bacco Smoke None; Cigarette Smoking Last 365 Days No; Reg Smoking Cessation Counseling No entered on: 04/28/20 1NO [id number] COMMENT Assessment and Plan Extracted from: Title: Anesthesia APNV Progress Note* Author: Khadra Lizz larath Date: 04/29/20 Postoperative Information Surgery Done Procedure Location: RIGHT, Knee. Date of Service: 04/28/2020 Chief Complaint Continuing surgical site pain management Out Patient Phone Call . Contact: Patient, Pts. partner. Progress Note Date and Time of Visit: 04/29/2020 09:4 0 Post OP Day #: 1. Peripheral Nerve Block Nerve Block #: 1. Nerve Block Site: Adductor canal: Right, single shot. Current Status Assessment Visual Analog Scale for Pain (VAS 0-10): At Rest: 7, With Activity: 7. Level of Sedation: Awake/Alert. Activity: Ambulating. Motor Block Residual Motor Weakness: No. Numbness Residual Sensory Numbness: No. Adjuvant Medication: PO. 1st PO Analgesic Date/Time: 04/28/2020 19:00. Site Assessment Non-tender, no redness, minimal swelling or bruising, No exudates, drainage, or bleeding. Side Effects None. Plan [facility] Plan Discharge from [facility] care: Analgesics per Primary Service. OUTPT. PHONE CALL. Lizz Hammer R.N.,mandie m scribing for and in the presence of . . Addendum by Zuri Arana MD on IZuri MD personally 04/29/2020 18:44 performed the actions in thi s note which was scribed in my presence Val AYERSMS RN. This note is both accurate and complete. Extracted from: Title: Clinical Document Author: Chon Quispe MD Date: 1 06/29/19 TKA Operative Note Date: 04/28/2020 Location: [facility] Attending: Chon Quispe MD Pre-op dx: Right knee osteoarthritis Post-op dx: Right knee osteoarthritis Procedure: Right total knee arthroplasty , 22 modifier Anesthesiologist: Dr. Brooks Anesthesia: Spinal, Adductoc Canal Database Administration Associate: Mio Estrada T-time: see anesthesia note EBL: minimal UOP: no smith IVF: see anesthesia note Transfusion: none required Implants: An and Nephew Femur: 4N, Cocr, Legion, CR Tibia: 3, renee 2 Polyethylene: 9 mm, xlink, dished Patella: 29 mm, xlink Cement: Gaines Simplex Cement, 2 packs Resections: Femur: alignment: [...] risks include but not limited to bleeding, heremlindo n, infection, damage to nearby structure s: vessels, tendons, nerves and ligaments, hardware failure, loosening, fracture, need for revision surgery, blood clots in the legs and lungs, stroke, heart gris ck, and . The patient agreed and ga ve consent to surgery as indicated. Patient also [...] was acc essed. We resected the menisci, posterio r and notch osteophytes. Loose bodies were resected from the pos [...] The construct was stable to varus and va lgus stress with physiologic laxity Cementing: The bone surfaces were irrigated [...] wound wa s dressed with dermabond, adaptic, 4x4 s, abd pads, and an angel wrap. IV tranexemic acid was given during the closure. Tourniquet was released after the dressi ng was placed. The entire procedure was completed with the attending surgeon. Laminar air flow body exhaust suits were worn for the entire procedure. A first responder was utilized for the enti re procedure. The first responder aided in positioning, retraction, implant sizing/implementation, and closure. The first responder decreased surgical time and therefore mor-operative morbidity. [...] morbidit and mortality. For these r easons patien is coded with an additional complexity code. Extracted from: Title: Clinical Document Author: Chon Quispe MD Date: 06/27/19 CHIEF COMPLAINT: Right knee pain. HISTORY OF [...] acute distress. PSYCHIATRIC: Alert and oriented x3. De monstrates proper mood and affect. ABDOMEN: Soft, nontender, and nondisten ded. EYES: Sclerae are normal. SKIN: No evidence of soft tissue swelli ng, ecchymosis, or bruising. CARDIOVASCULAR: 1+ DP pulses bilaterall y. NEUROLOGIC: Intact bilateral hips, quad s, hamstrings, [...] alignment film demonstrate s varus malalignment with wpea-qf-cckf articulation of medial compartment. Previous x-rays demonstrate [id number] articulation of the medial compartment, subchondral sclerosis, periarticular osteophytes, as well as decreased joint space in the anterior aspect of the knee. ASSESSMENT: Right knee osteoarthritis, ICD-10 code M17.11. PLAN: Right total knee arthroplasty. The patient is a candidate for tranexami c acid, Toradol, and Lovenox. Avoid steroid taper secondary to prediab etic status. Risks and benefits discussed with the irma aguilar. Risk of bleeding, pain, infection, damage to nearby structures, vessel, tendons, nerves, possible need for further surgery, possibility of blood clots in legs or lungs, stroke, heart attack, and . 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 Uribe [facility] in [place] Revised cardiac risk index scoreis1(history of TIA)consistent with 6% risk ofmajor perioperativecardiac eventbased on current risk factors Patient is considered a lowto moderateperioperativeCardiovascular risk for intermediate risk surgery and may proceed without further preoperativeworkup. Risks and benefits of surgery discussed with patient 2.Right knee pain(M25.561) Scheduled for right total knee arthrop lasty with Dr. Larry 04/28/2020 3.History of transient ischemic attac k (TIA)(Z86.73) History of TIAapproximately 3 years agofor which patient is on low-dose aspirin which she is instructed to hold 1 week prior to surgery. Patient may restart low-dose aspirin postoperativelyday 1 if cleared from surgical standpoint 4.Type II diabetes mellitus(E11.9) Diet controlled. Hemoglobin A1c is 6 .6% on preop labs 5.GERD (gastroesophageal reflux disea se)(K21.9) On omeprazole which patient instructed to take preoperatively morning of surgery 6.Hypothyroid(E03.9) On levothyroxine which patient directe d to take preoperatively on the morning of surgery 7.Anxiety and depression(F41.9) Takes escitalopram 8.Chronic pancreatitis(K86.1) Followed by gastroenterology as outpat ient. Patientrecently started on ursodiol by gastroenterologyfor vague abdominal pain 9.Asthma(J45.909) On Xopenexmedicated dose inhaleras needed which patient directed to bring with her on the day of surgery 10.Hyperlipidemia(E78.5) Takes Praluent 11.Fibromyalgia(M79.7) Does not take any medications for this 12.Obesity (BMI 30-39.9)(E66.9) Counseled on importance of weight loss 13.Sleep apnea(G47.30) Does not use CPAP 14.Vitamin D deficiency(E55.9) Called and discussedlow vitamin D mandeep kiran with patient. Patient reports alreadytaking 2000 international unitsof vitamin D daily. Have instructed patient tonot start any supplements until a fter surgeryat which time patient antwon toussaint takeat least 4000 international unitsof vitamin D dailywhich can be purchased [id number]. Patient expressed understanding, all questions answered [facility] Hospitalist Consult Please [phone] any qu estions
--- OUTSIDE RECORDS SUMMARY | 2020-05-30 16:10 | XMS REPORT | Summary of Care ---
:1955 Author Organization [facility] Address [address] [place] [id number] Encounter HQ Magan_bety(FIN) [id number] Date(s): 04/28/20 [facility] [address] [address]- [phone] Attending Physician: Chon Quispe MD Referring Physician: Chon Quispe MD Vital Signs Most recent to oldest [Reference Range]: 1 2 Height 153.92 cm 157.48 cm (04/24/20 9:50 AM) (04/23/20 10:08 AM) Temperature Oral [96.4-99.1 DegF] 98.0 DegF (04/24/20 9:50 AM) Blood Pressure [90-140/60-90 mmHg] 107/74 mmHg (04/24/20 9:50 AM) Respiratory Rate [14-20 BRMIN] 15 BRMIN (04/24/20 9:50 AM) Peripheral Pulse Rate [60-100 bpm] 83 bpm (04/24/20 9:50 AM) Weight 83.892 kg 82.727 kg (04/24/20 9:50 AM) (04/23/20 10:08 AM) Body Mass Index 35.41 m2 33.36 m2 (04/24/20 9:50 AM) (04/23/20 10:08 AM) Problem List Condition [...] Relafen hives Active iodine Active 1PECANS Medications diclofenac sodium 1% topical cream 0 Refill(s) Start Date: 04/23/20 Status: Orderedescitalopram 40 mg, PO, Daily, 0 Refill(s) Start Date: 04/23/20 Status: Orderedlevothyroxine 112 mcg (0.112 mg) oral capsule 112 microgram = 1 cap, PO, Daily, # 30 cap, 3 Refill(s) Start Date: 04/23/20 Status: Orderedomeprazole 20 mg oral delayed release capsule 20 mg = 1 cap, PO, Daily, 0 Refill(s) Start Date: 04/23/20 Status: Ordered Results Most recent to oldest [Reference Range]: 1 Neutrophils # [1.5-8.1 K/CMM] 3.7 K/CMM (04/24/20 10:08 AM) Lymphocytes # [1.0-5.5 K/CMM] 2.3 K/CMM (04/24/20 10:08 AM) Monocytes # [0.0-0.8 K/CMM] 0.4 K/CMM (04/24/20 10:08 AM) Eosinophils # [0.0-0.5 K/CMM] 0.2 K/CMM (04/24/20 10:08 AM) eGFR 79 mL/min/1.73m2 1 *NA* (04/24/20 10:08 AM) ABO/Rh O NEG *Unknown* (04/24/20 10:08 AM) Antibody Scrn Negative (04/24/20 10:08 AM) Albumin Lvl [3.5-5.0 g/dL] 3.5 g/dL (04/24/20 10:08 AM) AGAP [10.0-20.0 mEq/L] 12.2 mEq/L (04/24/20 10:08 AM) Basophils [0.0-1.0 %] 0.5 % (04/24/20 AM) BUN [7-22 mg/dL] 11 mg/dL (04/24/2008 AM) Calcium Lvl [8.5-10.5 mg/dL] 8.8 mg/dL (04/24/20 AM) Chloride Lvl [95-109 mEq/L] 103 mEq/L (04/24/20 AM) CO2 [24-32 mEq/L] 31 mEq/L (04/24/20 AM) Creatinine Lvl [0.50-1.40 mg/dL] 0.80 mg/dL (04/24/20 AM) Eosinophils [0.0-4.0 %] 2.6 % (04/24/20) Glucose Lvl [70-99 mg/dL] 125 mg/dL *HI* (04/24/2008 AM) Hct [36.0-48.0 %] 42.2 % (04/24/20) Hgb [12.0-16.0 g/dL] 13.9 g/dL (04/24/20 AM) Hgb A1C [<=5.6 %] 6.6 % *HI* (04/24/20) INR [0.85-1.17] 0.93 (04/24/20 AM) Potassium Lvl [3.5-5.1 mEq/L] 4.2 mEq/L (04/24/20 AM) Lymphocytes [20.0-40.0 %] 34.8 % (04/24/20) MCH [27.0-31.0 pg] 30.2 pg (04/24/20 AM) MCHC [32.0-36.0 g/dL] 32.9 g/dL (04/24/2008 AM) MCV [80.0-98.0 fL] 91.7 fL (12/10/20 10:08 AM) Monocytes [2.0-12.0 %] 5.9 % (04/24/20 10:08 AM) MPV [7.4-10.4 fL] 7.4 fL (04/24/20:08 AM) Sodium Lvl [135-145 mEq/L] 142 mEq/L (04/24/20 10:08 AM) Platelet [133-450 K/CMM] 399 K/CMM (04/24/2008 AM) Segs [45.0-75.0 %] 56.2 % (04/24/20:08 AM) PT [12.0-14.7 seconds] 12.5 seconds (04/24/20:08 AM) PTT [22.9-35.8 seconds] 31.2 seconds (04/24/20:08 AM) Coronavirus (COVID-19) SHARMIN [Not Detected] Not Detected (04/24/20:19 AM) RBC [4.20-5.40 M/CMM] 4.60 M/CMM (04/24/20:08 AM) RDW [11.5-14.5 %] 14.5 % (04/24/20 10:08 AM) UA Bacteria [None Seen /HPF] Few /HPF (04/24/20:08 AM) UA Bili [Negative] Negative *NA* (04/24/20:08 AM) UA Blood [Negative] Negative (04/24/20 10:08 AM) UA Color [Yellow] Yellow *NA* (04/24/20:08 AM) UA Glucose [Negative mg/dL] 250 mg/dL *ABN* (04/24/20 10:08 AM) UA Ketones [Negative] Negative *NA* (04/24/20 10:08 AM) UA Leuk Est [Negative] Negative (04/24/20:08 AM) UA Nitrite [Negative] Negative (04/24/20:08 AM) UA pH [5.0-8.0] 6.0 (04/24/20 10:08 AM) UA Protein [Negative] Negative (04/24/20 10:08 AM) UA RBC [0-2 /HPF] 0-2 /HPF (04/24/20:08 AM) UA Spec Grav [<=1.030] <=1.005 *NA* (04/24/20 10:08 AM) UA Sq Epi [Few /LPF] Few /LPF (04/24/20 10:08 AM) UA Turbidity [Clear] Clear (04/24/20 10:08 AM) UA Urobilinogen [0.1-1.0 EU/dL] 0.2 EU/dL (04/24/20 10:08 AM) UA WBC [None Seen /HPF] 0-2 /HPF (04/24/20 10:08 AM) Vitamin D, 25-OH, Total [30-100 ng/mL] 29 ng/mL 2 *LOW* (04/24/20 10:08 AM) WBC [3.7-10.4 K/CMM] 6.6 K/CMM (04/24/20 10:08 AM) Micro? Performed (04/24/20 10:08 [...] be multiplied by the estimated BMI.2Result Comment: Vitamin D Status 25-OH Vitamin D: Deficiency: <20 ng/mL Insufficiency: 20 - 29 ng/mL Optimal: > or = 30 ng/mL For 25-OH Vitamin D testing on patients on D2-supplementation and patients for whom quantitation of D2 and D3 fractions is required, the [facility](TM) 25-OH VIT D, (D2,D3), LC/MS/MS is recommended: order code 49594 (patients >2yrs). See Note 1 Note 1 For additional information, please refer to http://education.[facility].com/faq/ICS714 (This link is being provided for informational/ educational purposes only.) Lab test performed by: [facility] [address] [id number] ALVAREZ BUENO MD Immunizations Given and Recorded [...] fasciotomy Completed Shoulder joint operations7 C ompleted [id number]. [id number] SPURS BOTH [id number] Social History Social History Type Response Alcohol Never Employment/School 1 Exercise 2 Sexual 3 Substance Abuse Use: None. Smoking Status Never smoker; Exposure to To bacco Smoke None; Cigarette Smoking Last 365 Days No; Reg Smoking Cessation Counseling No entered on: 10/30/19 1NO [id number] COMMENT Assessment and Plan Extracted from: Title: Clinical Document Author: Chon [...] alignment film demonstrate s varus malalignment with [id number]-fwwl articulation of medial compartment. 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 Uribe [facility] in [place] Revised cardiac risk index scoreis1(history of TIA)consistent [...] D deficiency(E55.9) Called and discussedlow vitamin D le vels with patient. Patient reports alreadytaking 1999 international unitsof vitamin D daily. Have instructed patient tonot start any supplements until a fter surgeryat which time patient shou ld takeat least 4000 international unitsof vitamin D dailywhich can be purchased [id number]. Patient expressed understanding, all questions answered [facility] Hospitalist Consult Please [phone] any qu estions
--- OUTSIDE RECORDS SUMMARY | 2020-05-30 16:17 | XMS REPORT | Continuity of Care Document ---
:1955 Author Organization [facility] t Address [address] [place]. [address] [place] [id number] Care Team Providers Name Role Phone Rustam Gus ALEJANDRE Primary Care Physician [phone] Matt GARAY Attending Clinician Wander Quispe Attending Clinician Deng GARAY, K.H. Attending Clinician Doctor Unassigned, Name Attending Clinician Unavailable Anamaria Pagan Attending Clinician Fadia Attending Clinician Partha Hair Attending Clinician GEN ROWLEY Attending Clinician Unavailable Lesa Sánchez Attending Clinician Charlene Landaverde Attending Clinician Wander Quispe Admitting Clinician Fadia Admitting Clinician GEN ROWLEY Admitting Clinician Unavailable Lesa Sánchez Admitting Clinician Charlene Landaverde Admitting Clinician Problems Condition Condition Condition Status Onset Resolution Last Treating Co mments Source Name Details Category Date Date Treatment Clinician Date RT KNEE Diagnosis Active 2019-052020-04-29 Ar moria DJD 2 08:18:00 l RT KNEE 00:00: Frandy DJD 00 Active 04/23/2020 [facility] Diagnosis Active 2020-01-07 [facility] oria VISIT 10-30 09:28:00 l CLINIC 00:00: [place] VISIT 00 Active 10/31/2019 [facility] UNK Diagnosis Active 2019-10-26 [facility] oria 10-22 07:47:00 l UNK 00:00: [place] 00 Active 2019 [facility] M16.11 Diagnosis Active 2020-01-16 Mem oria 10-22 15:51:00 l M16.11 00:00: [place] 00 Active 2019 [facility] EPIGASTRIC Diagnosis Active 2019-10-31 Memoria PAIN 10-10 12:59:00 l 00:00: [place] EPIGASTRIC 00 PAIN Active 10/11/2019 [facility] VIRTUAL Diagnosis Active 2019-10-31 Ar moria VISIT- 10-09 12:57:00 l PHONE VIRTUAL 00:00: [place] VISIT VISIT- 00 PHONE VISIT Active 10/10/2019 [facility] PHONE CALL Diagnosis Active 2020-01-23 Memoria - NEW PT 3-31 15:30:00 l VISIT - PHONE 00:00: Frandy PANCREATIT CALL - NEW 00 IS PT VISIT - PANCREATIT IS Active 0 [facility] M51.16 - Diagnosis Active 2019-07-12 M emoria INTERVERTE 2 09:53:00 l BRAL DISC M51.16 - 00:01: Her horn DISORDERS INTERVERTE 00 BRAL DISC DISORDERS Active 06/22/2019 [facility] [place] Pneumonia Pneum[facility] SOB SOB Disease Active [facility] ([facility]ness (shortness [facility]-08 Chloé kes - of breath) of breath) 00:00: Me dical 00 Center N/A Diagnosis Active 2017-06-03 Mem oria 1-11 09:39:00 l N/A 00:00: [place] 00 Active 05/26/2017 [facility] LUMBAR Diagnosis Active 2017-06-09 Mem oria L3-4 - 11:26:00 l CYPTIC LUMBAR 00:00: [place] MASS L3-4 00 CYPTIC MASS Active 05/26/2017 [facility] 723.0 Diagnosis Active 2013-052014-06-10 Mem oria CERVICAL 2-24 09:28:00 l STENOSIS 723.0 00:00: Frandy CERVICAL 00 STENOSIS Active 05/08/2014 [facility] 724.5, Diagnosis Active 2013-052014-06-10 Mem oria 723.1, 2-04 09:27:00 l 722.0, 724.5, 00:00: [place] 722.10, 723.1, 00 722.81 722.0, 722.10, 722.81 Active 04/18/2014 [facility] Final: Problem 2014-05-25 Memor ia 11:44:36 l Final: Frandy 05/25/2014 [facility] Type 2 Problem 2017-09-15 Memor ia diabetes 16:24:33 l mellitus Type 2 Kiko n with diabetes hyperglyce mellitus nitin with hyperglyce nitin 09/15/2017 [facility] Fibromyalg Problem 2017-09-15 M emoria ia 16:24:33 l Frandy Fibromyalg ia 09/15/2017 [facility] Chronic Problem 2017-09-15 Jaylan elvin obstructiv 16:24:33 l e Chronic Frandy pulmonary obstructiv disease, e unspecifie pulmonary d disease, unspecifie d 09/15/2017 [facility] Major Problem 2017-09-15 Memor ia depressive 16:24:33 l disorder, Major Kiko n single depressive episode, disorder, unspecifie single d episode, unspecifie d 09/15/2017 [facility] Hypothyroi Problem 2017-09-15 M emoria dism, 16:24:33 l unspecifie Kiko n d Hypothyroi dism, unspecifie d 09/15/2017 [facility] Unilateral Problem 2019-11-02 M emoria primary 22:30:40 l osteoarthr Kiko n itis, Unilateral right hip primary osteoarthr itis, right hip 11/02/2019 [facility] Backache Problem Resolve 2020-04-30 Me moria (finding) d 23:12:46 l Backache Kiko n (finding) Resolved Problem 04/30/2020 [facility], [facility], [facility] [place],[facility] Chronic Problem Resolve 2020-04-30 Mem oria obstructiv d 23:12:46 l e lung Chronic [place] disease obstructiv (disorder) e lung disease (disorder) Resolved Problem 04/30/2020 [facility], [facility], [facility] Neck pain Problem Resolve 2020-04-30 M emoria (finding) d 23:12:46 l Neck Frandy pain (finding) Resolved Problem 04/30/2020 [facility], [facility], [facility] Asthma Problem Active 2020-04-30 Memor ia (disorder) 23:12:46 l Asthma [place] (disorder) Active Problem 04/30/2020 [facility], [facility], [facility] [place],[facility] Body mass Problem Active 2020-04-30 Me moria index 30+ 23:12:46 l - obesity Body Orange (finding) mass index 30+ - obesity (finding) Active Problem 04/30/2020 [facility] Chronic Problem Active 2020-04-30 Jaylan elvin pancreatit 23:12:46 l is Chronic [place] (disorder) pancreatit is (disorder) Active Problem 04/30/2020 [facility] Depression Problem Active 2020-04-30 M emoria - motion 23:12:46 l (qualifier Kiko n value) Depression - motion (qualifier value) Active Problem 04/30/2020 [facility] Diabetes Problem Active 2020-04-30 Mem oria mellitus 23:12:46 l (disorder) Diabetes He rmann mellitus (disorder) Active Problem 04/30/2020 [facility], [facility], [facility] [place],[facility] Fibromyalg Problem Active 2020-04-30 M emoria ia 23:12:46 l (disorder) Kiko n Fibromyalg ia (disorder) Active Problem 04/30/2020 [facility] Gastroesop Problem Active 2020-04-30 emoria hageal 23:12:46 l reflux Frandy disease Gastroesop (disorder) hageal reflux disease (disorder) Active Problem 04/30/2020 [facility] History of Problem Active 2020-04-30 M emoria - TIA 23:12:46 l (context-d History Her horn ependent of - TIA category) (context-d ependent category) Active Problem 04/30/2020 [facility] Hyperlipid Problem Active 2020-04-30 M emoria emia 23:12:46 l (disorder) Kiko n Hyperlipid emia (disorder) Active Problem 04/30/2020 [facility] Hypothyroi Problem Active 2020-04-30 M emoria dism 23:12:46 l (disorder) Kiko n Hypothyroi dism (disorder) Active Problem 04/30/2020 [facility] Mixed Problem Active 2020-04-30 Memor ia anxiety 23:12:46 l and Mixed Frandy depressive anxiety disorder and (disorder) depressive disorder (disorder) Active Problem 04/30/2020 [facility] Obsessive- Problem Active 2020-04-30 M emoria compulsive 23:12:46 l disorder [place] (disorder) Obsessive- compulsive disorder (disorder) Active Problem 04/30/2020 [facility] Osteoarthr Problem Active 2020-04-30 M emoria itis 23:12:46 l (disorder) Kiko n Osteoarthr itis (disorder) Active Problem 04/30/2020 [facility] Osteoarthr Problem Active 2020-04-30 M emoria itis of 23:12:46 l knee Frandy (disorder) Osteoarthr itis of knee (disorder) Active Problem 04/30/2020 [facility] Osteopenia Problem Active 2020-04-30 M emoria (disorder) 23:12:46 l Frandy Osteopenia (disorder) Active Problem 04/30/2020 [facility] Sleep Problem Active 2020-04-30 Memor ia apnea 23:12:46 l (finding) Sleep Kiko n apnea (finding) Active Problem 04/30/2020 [facility], [facility], [facility] [place],[facility] Thyroid Problem Active 2020-04-30 Jaylan elvin dysfunctio 23:12:46 l n Thyroid Frandy (disorder) dysfunctio n (disorder) Active Problem 04/30/2020 hypothryo id [facility], [facility], ZAYNAB [place],[facility] Diabetes Problem Active 2020-04-30 Mem oria mellitus 23:12:46 l type 2 Diabetes Kiko n (disorder) mellitus type 2 (disorder) Active Problem 04/30/2020 [facility] BACKACHE Diagnosis Active 2014-06-10 M emoria NOS 09:27:00 l BACKACHE Kiko n NOS Active [facility] CERVICALGI Diagnosis Active 2014-06-10 Memoria A 09:27:00 l Frandy CERVICALGI A Active [facility] CERVICAL Diagnosis Active 2014-06-10 M emoria DISC 09:27:00 l DISPLACMNT CERVICAL He rmann DISC DISPLACMNT Active [facility] CERVICAL Diagnosis Active 2014-06-10 M emoria SPINAL 09:28:00 l STENOSIS CERVICAL Herm kash SPINAL STENOSIS Active [facility] OTHER Diagnosis Active 2017-06-09 Mem oria BURSAL 11:26:00 l CYST, OTHER Frandy UNSPECIFIE BURSAL D SITE CYST, UNSPECIFIE D SITE Active [facility] UNILATERAL Diagnosis Active 2020-01-16 Memoria PRIMARY 15:51:00 l OSTEOARTHR Kiko n ITIS, UNILATERAL RIGHT PRIMARY OSTEOARTHR ITIS, RIGHT Active [facility] Other Problem 2017-09-15 2017-09-15 M emoria bursal 06-16 16:24:33 16:24:33 l cyst, Other 04:21: [place] other site bursal 07 cyst, other site 06/16/2017 09/15/2017 [facility] History of Past Illness Condition Condition Condition Status Onset Resolution Last Treating Co mments Source Name Details Category Date Date Treatment Clinician Date Rheumatic Problem Resolve 1976-2020-04-30 2020-04-30 Memoria fever d 05-16 23:12:46 23:12:46 l (disorder) 00:00: Kiko n Rheumatic 00 fever (disorder) Resolved 05/16/1976 Problem 04/30/2020 [facility] Allergies, Adverse Reactions, Alerts Allergy Allergy Status Severity Reaction(s) Onset Inactive Treating Comm ents Source Name Type Date Date Clinician Ciproflo Propensi Active [place] xacin ty to 08 [facility] adverse 00:00: st reaction 00 s to drug Codeine Propensi Active Lorenzo ty to 808 [facility] adverse 00:00: st reaction 00 s to drug Iodine Propensi Active Lorenzo ty to 12-21 [facility] adverse 00:00: st [...] st reaction 00 s to drug Ciproflo Propensi [facility] adverse 00:[facility]: [facility] reaction 00 Center s Codeine Propensi Active [facility] ty to 12-21 [facility] - adverse 00:00: Medical reaction 00 Center s Iodine Propensi Active [facility] ty to 12-21 [facility] - Iodide adverse 00:00: Medical Containi reaction 00 Center ng s Products Levoflox Propensi Active [facility] ac[facility] ty to 12-21 [facility] - adverse 00:00: Medical reaction 00 Center s Nsaids Propensi Active [facility] (Non-Alexsander ty to 12-21 [facility] - roidal adverse 00:00: Medical Anti-Inf reaction 00 Center lammator s y Drug) Nabumeto Propensi Active [facility] ne ty to 12-21 [facility] - adverse 00:00: Medical reaction 00 Center s codeine codeine Active 2004-05 Memoria 0-28 l 00:00: iodine iodine Active 2004-05 Memoria topical topical 0-28 l 00:00: morphine morphine Active 2004-05 Memori a 0-28 l 00:00: NSAIDS Adverse Active Info Not [facility] Reaction [facility] MORPHINE Adverse Active Info [facility] Iodine Adverse Active Info Not [facility] Relafen Relafen Active Memoria l [place] Cipro Cipro Active Memoria l [place] iodine iodine Active [facility]oria l [place] Levaquin Levaquin Active Memori a l [place] NSAIDs NSAIDs Active Memoria l [place] topirama topirama Active Memori a te te l [place] Food Food Active Memoria Nuts<sup Nuts<sup l >1</sup> >1</sup> Kiko n Social History Social Habit Start Date Stop Date Quantity Comments Source Sex Assigned At [facility] Social History 2014-05-14 2014-05-14 [facility] ermann 17:26:34 17:26:34 Medications Ordered Filled Start Stop Current Ordering Indication Dosage Frequency Signature Comments Components Source Medication Medication Date Date Medication? Clinician (SIG) Name Name dexamethaso 2019-05 No Notes: Jaylan elvin ne 2-16 Give with l 15:00: food. [place] 00 (Same As: Decadron) dexamethaso 2019-05 No Notes: Jaylan elvin ne 2-16 Give with l 15:00: food. [place] 00 (Same As: Decadron) Saline 2019-05 No Notes: Memoria Flush 0.9% 2-16 Same as: l 03:00: BD [place] Posiflush Sterile Saline 2019-05 No Notes: Memoria Flush 0.9% 2-16 Same as: l 03:00: BD [place] 00 Posiflush Sterile Saline 2019-05 No Notes: Memoria Flush 0.9% 2-15 Same as: l 17:38: BD Frandy Posiflush Sterile Saline 2019-05 No Notes: Memoria Flush 0.9% 2-15 Same as: l 17:38: BD Frandy Posiflush Sterile Enoxaparin 2019-05 No Notes: Memor ia 2-15 (Same as: l 16:00: Lovenox) Frandy Enoxaparin 2019-05 No Notes: Memor ia 2-15 (Same as: l 16:00: Lovenox) Frandy dexamethaso 2019-05 No Notes: Jaylan elvin ne 2-15 Concentrat l 15:00: ion: [place] 00 4mg/ml dexamethaso 2019-05 No Notes: Jaylan elvin ne 2-15 Concentrat l 15:00: ion: [place] 00 4mg/ml Vancomycin 2020-1 No 2000 mg: Me moria 2-15 infuse l 02:00: over 2.5 Frandy 00 hours For adult patients only: Round to nearest 250 mg per Medical Staff approval MEDICATION WASTE Product Size: 1000 mg Product Wasted: ___ mg Vancomycin 2020-1 No 2001 mg: Me moria 2-15 infuse l 02:00: over 2.5 Orange 00 hours For adult patients only: Round to nearest 250 mg per Medical Staff approval MEDICATION WASTE Product Size: 1000 mg Product Wasted: ___ mg tranexamic 2020-1 No Notes: Memor ia acid + 2-15 (Same As: l Sodium 00:00: Cyklokapro Carly nn Chloride 00 n) 0.9% IV 100 mL tranexamic 2020- No Notes: Memor ia acid + 2-15 (Same As: l Sodium 00:00: Cyklokapro Carly nn Chloride 00 n) 0.9% IV 100 mL Cefazolin 2020- No Notes: Memori a 2-14 (Same As: l 22:00: Ancef, Frandy 00 Kefzol) MEDICATION WASTE Product Size: 1000 mg Product Wasted: ___ mg Zofran 2020-1 No Notes: Memoria 2-14 (Same as: l 22:00: Zofran) [place] MEDICATION WASTE Product Size: 4 mg Product Wasted: ___ mg Cefazolin 2020-1 No Notes: Memori a 2-14 (Same As: l 22:00: Ancef, Frandy 00 Kefzol) MEDICATION WASTE Product Size: 1000 mg Product Wasted: ___ mg Zofran 2020-1 No Notes: Memoria 2-14 (Same as: l 22:00: Zofran) Orange 00 MEDICATION WASTE Product Size: 4 mg Product Wasted: ___ mg dexamethaso 2020-1 No Notes: Jaylan elvin ne 2-14 Give with l 18:00: food. [place] 00 (Same As: Decadron) dexamethaso 2020-1 No Notes: Jaylan elvin ne 2-14 Give with l 18:00: food. [place] 00 (Same As: Decadron) Acetaminoph 2019-05 Yes 1 tab, PO, Memoria en 325 MG / 2-14 Q3H, PRN l Oxycodone 17:40: Pain Score He rmann Hydrochlori 00 7-10, 0 de 10 MG Refill(s) Oral Tablet [Percocet 10/325] Aspirin 325 2019-05 Yes 325 mg = 1 Memoria MG Enteric 2-14 tab, PO, l Coated 17:40: BID, # 60 Kiko n Tablet 00 tab, 0 Refill(s), given to patient Acetaminoph 2019-05 Yes 1 tab, PO, Memoria en 325 MG / 2-14 Q3H, PRN l Oxycodone 17:40: Pain Score He rmann Hydrochlori 00 7-10, 0 de 10 MG Refill(s) Oral Tablet [Percocet 10/325] Aspirin 325 2019-05 Yes 325 mg = 1 Memoria MG Enteric 2-14 tab, PO, l Coated 17:40: BID, # 60 Kiko n Tablet 00 tab, 0 Refill(s), given to patient 05/17 NS 2019-05 No 1,000 mL, Memori a 1,000 mL 2-14 Rate: 75 l 17:38: ml/hr, 00 Infuse over: 13.3 hr, Route: IV, Dosing Weight 83.864 kg, Total Volume: 1,000, Start date: 04/28/20 11:38:00 HAND III CUTTER, Duration: 30 day, Stop date: 05/28/20 11:37:00 HAND III CUTTER, 1.93, m2, 0 Tranexamic 2019-05 No Notes: Memor ia Acid 2-14 (Same As: l 17:38: Cyklokapro Orange 00 n) Dexamethaso 2019-05 No Notes: Jaylan elvin ne 2-14 Concentrat l 17:38: ion: [place] 00 4mg/ml Zofran 2019-05 No Notes: Memoria 2-14 (Same as: l 17:38: Zofran) Orange 00 MEDICATION WASTE Product Size: 4 mg Product Wasted: ___ mg Acetaminoph 2019-05 No Notes: Jaylan elvin en 325 MG / 2-14 (Same as: l Hydrocodone 17:38: [place] Carly nn Bitartrate 00 325/5) Do 5 MG Oral not exceed Tablet 4gm/day of [Rowland acetaminop 5/325] hen. Acetaminoph 2019-05 No Notes: Do M emoria en 325 MG / 2-14 not exceed l Hydrocodone 17:38: 4gm/day of Frandy Bitartrate 00 acetaminop 10 MG Oral hen. Tablet (Same as: [Rowland Rowland 10/325] 325/10) Acetaminoph 2019-05 No Notes: Do M emoria en 325 MG / 2-14 not exceed l Oxycodone 17:38: 4gm/day of He rmann Hydrochlori 00 acetaminop de 10 MG hen. Oral Tablet (Same as: [Percocet Percocet-1 10/325] 0/325) 05/17 NS 2019-05 No 1,000 mL, Memori a 1,000 mL 2-14 Rate: 75 l 17:38: ml/hr, Frandy 00 Infuse over: 13.3 hr, Route: IV, Dosing Weight 83.864 kg, Total Volume: 1,000, Start date: 04/28/20 11:38:00 HAND III CUTTER, Duration: 30 day, Stop date: 05/28/20 11:37:00 HAND III CUTTER, 1.93, m2, 0 Tranexamic 2019-05 No Notes: Memor ia Acid 2-14 (Same As: l 17:38: Cyklokapro Frandy 00 n) Dexamethaso 2019-05 No Notes: Jaylan elvin ne 2-14 Concentrat l 17:38: ion: [place] 00 4mg/ml Zofran 2019-05 No Notes: Memoria 2-14 (Same as: l 17:38: Zofran) Frandy 00 MEDICATION WASTE Product Size: 4 mg Product Wasted: ___ mg Acetaminoph 2019-05 No Notes: Jaylan elvin en 325 MG / 2-14 (Same as: l Hydrocodone 17:38: [place] Carly nn Bitartrate 00 325/5) Do 5 MG Oral not exceed Tablet 4gm/day of [[place] acetaminop 5/325] hen. Acetaminoph 2019-05 No Notes: Do M emoria en 325 MG / 2-14 not exceed l Hydrocodone 17:38: 4gm/day of [place] Bitartrate 00 acetaminop 10 MG Oral hen. Tablet (Same as: [Rowland Rowland 103[address]] 325/10) Acetaminoph 2019-05 No Notes: Do Jessica emoria en 325 MG / 2-14 not exceed l Oxycodone 17:38: 4gm/day of He rmann Hydrochlori 00 acetaminop de 10 MG hen. Oral Tablet (Same as: [Percocet Percocet-1 ] 0/325) ceFAZolin 2019-05 No Route: IV, Me moria (ANES) 2-14 Drug form: l 16:34: INJ, ONCE, Stop date: 04/28/20 10:34:00 HAND III CUTTER phenylephri 2019-05 No Route: IV, Memoria ne (ANES) 2-14 Drug form: l 16:34: INJ, ONCE, Stop date: 04/28/20 10:34:00 HAND III CUTTER ceFAZolin 2019-05 No Route: IV, Me moria (ANES) 2-14 Drug form: l 16:34: INJ, ONCE, Stop date: 04/28/20 10:34:00 HAND III CUTTER phenylephri 2019-05 No Route: IV, Memoria ne (ANES) 2-14 Drug form: l 16:34: INJ, ONCE, Stop date: 04/28/20 10:34:00 HAND III CUTTER ketAMINE 2019-05 No Route: IV, Mem oria (ANES) 2-14 Drug form: l 16:24: INJ, ONCE, Stop date: 04/28/20 10:24:00 HAND III CUTTER ketAMINE 2019-05 No Route: IV, Mem oria (ANES) 2-14 Drug form: l 16:24: INJ, ONCE, Stop date: 04/28/20 10:24:00 HAND III CUTTER midazolam 2019-05 No Route: IV, Me moria (ANES) 2-14 Drug form: l 16:19: SOLN, ONCE, Stop date: 04/28/20 10:19:00 HAND III CUTTER fentaNYL 2019-05 No Route: IV, Mem oria (ANES) 2-14 Drug form: l 16:19: INJ, ONCE, Stop date: 04/28/20 10:19:00 HAND III CUTTER midazolam 2019-05 No Route: IV, Me moria (ANES) 2-14 Drug form: l 16:19: SOLN, ONCE, Stop date: 04/28/20 10:19:00 HAND III CUTTER fentaNYL 2019-05 No Route: IV, Mem oria (ANES) 2-14 Drug form: l 16:19: INJ, ONCE, Stop date: 04/28/20 10:19:00 HAND III CUTTER lidocaine 2019-05 No Route: IV, Me moria (ANES) 2-14 Drug form: l 16:14: INJ, ONCE, Stop date: 04/28/20 10:14:00 HAND III CUTTER propofol 2019-05 No Route: IV, Mem oria (ANES) 2-14 Drug form: l 16:14: INJ, ONCE, Stop date: 04/28/20 10:14:00 HAND III CUTTER lidocaine 2019-05 No Route: IV, Me moria (ANES) 2-14 Drug form: l 16:14: INJ, ONCE, Stop date: 04/28/20 10:14:00 HAND III CUTTER propofol 2019-05 No Route: IV, Mem oria (ANES) 2-14 Drug form: l 16:14: INJ, ONCE, Stop date: 04/28/20 10:14:00 HAND III CUTTER propofol 2019-05 No Route: IV, Mem oria (ANES) 10 2-14 Drug form: l mg 15:43: INJ, Start date: 04/28/20 9:43:00 HAND III CUTTER, Stop date: 04/28/20 10:43:00 HAND III CUTTER propofol 2019-05 No Route: IV, Mem oria (ANES) 10 2-14 Drug form: l mg 15:43: INJ, Start date: 04/28/20 9:43:00 HAND III CUTTER, Stop date: 04/28/20 10:43:00 HAND III CUTTER Lactated 2019-05 No Route: IV, Mem oria Ringers 2-14 Total l Injection 15:34: Volume: Carly nn IV (ANES) 00 1,000, 1000 mL Start date: 04/28/20 9:34:00 HAND III CUTTER, Stop date: 04/28/20 10:34:00 HAND III CUTTER Lactated 2019-05 No Route: IV, Mem oria Ringers 2-14 Total l Injection 15:34: Volume: Carly nn IV (ANES) 00 1,000, 1000 mL Start date: 04/28/20 9:34:00 HAND III CUTTER, Stop date: 04/28/20 10:34:00 HAND III CUTTER LR IV 1,000 2019-05 No 1,000 mL, M emoria mL 2-14 Rate: 75 l 14:15: ml/hr, Frandy Infuse over: 13.3 hr, Route: IV, Dosing Weight 83.864 kg, Total Volume: 1,000, Start date: 04/28/20 8:15:00 HAND III CUTTER, Duration: 30 day, Stop date: 05/28/20 8:14:00 HAND III CUTTER, 1.93, m2, 0 LR IV 1,000 2019-05 No 1,000 mL, M emoria mL 2-14 Rate: 75 l 14:15: ml/hr, Frandy 00 Infuse over: 13.3 hr, Route: IV, Dosing Weight 83.864 kg, Total Volume: 1,000, Start date: 04/28/20 8:15:00 HAND III CUTTER, Duration: 30 day, Stop date: 05/28/20 8:14:00 HAND III CUTTER, 1.93, m2, 0 celecoxib 2019-05 No Notes: Memori a 2-14 NSAID. l 14:00: Please Frandy 00 check indication . Not for seizure. (Same As: CeleBREX) gabapentin 2019-05 No Notes: Memor ia 2-14 (Same as: l 14:00: Neurontin) ropivacaine 2019-05 No Notes: Jaylan elvin 2-14 NOT FOR l 14:00: IV use Frandy 00 Each mL contains: Ropivacain e 2.46 mg, Epinephrin e 0.005 mg, Clonidine 0.0008 mg and Ketorolac 0.3 mg in Sodium Chloride Oxycontin 2019-05 No Notes: Do Mem oria 2-14 not crush l 14:00: or chew. Orange 00 (Same as: OxyContin) Tylenol 2019-05 No Notes: Max Jaylan elvin 2-14 acetaminop l 14:00: hen 4000 Orange 00 mg/day (4 gm/day). (Same as: Tylenol Extra Strength) Tranexamic 2019-05 No Notes: Memor ia Acid 2-14 (Same As: l 14:00: Cyklokapro Frandy 00 n) Cefazolin 2019-05 No 2 gm, 50 Jaylan elvin 2-14 mL, Route: l 14:00: IVP, Drug Frandy 00 form: INJ, ONCALL, Dosing Weight 83.892, kg, (Patients weighing < 120 kg), Start date: 04/28/20 8:00:00 HAND III CUTTER, Duration: 1 doses or times, ABX Indication : Surgical Prophylaxi s, 0 Vancomycin 2019-05 No 2000 mg: Me moria 2-14 infuse l 14:00: over 2.5 Orange 00 hours celecoxib 2019-05 No Notes: Memori a 2-14 NSAID. l 14:00: Please Frandy 00 check indication . Not for seizure. (Same As: CeleBREX) gabapentin 2019-05 No Notes: Memor ia 2-14 (Same as: l 14:00: Neurontin) Orange 00 ropivacaine 2019-05 No Notes: Jaylan elvin 2-14 NOT FOR l 14:00: IV use Frandy 00 Each mL contains: Ropivacain e 2.46 mg, Epinephrin e 0.005 mg, Clonidine 0.0008 mg and Ketorolac 0.3 mg in Sodium Chloride Oxycontin 2019-05 No Notes: Do Mem oria 2-14 not crush l 14:00: or chew. Frandy 00 (Same as: OxyContin) Tylenol 2019-05 No Notes: Max Jaylan elvin 2-14 acetaminop l 14:00: hen 4000 Frandy 00 mg/day (4 gm/day). (Same as: Tylenol Extra Strength) Tranexamic 2019-05 No Notes: Memor ia Acid 2-14 (Same As: l 14:00: Cyklokapro Orange 00 n) Cefazolin 2019-05 No 2 gm, 50 Jaylan elvin 2-14 mL, Route: l 14:00: IVP, Drug Frandy 00 form: INJ, ONCALL, Dosing Weight 83.892, kg, (Patients weighing < 120 kg), Start date: 04/28/20 8:00:00 HAND III CUTTER, Duration: 1 doses or times, ABX Indication : Surgical Prophylaxi s, 0 Vancomycin 2019-05 No 2000 mg: Me moria 2-14 infuse l 14:00: over 2.5 Orange 00 hours ropivacaine 2019-05 No 99 ml/hr, Jessica emoria 0.5% 246.25 2-14 Route: l mg + 11:00: intra-PANCHO Orange EPINEPHrine 00 CULAR, 0.5 mg + ONCALL, cloNIDine Start 80 date: microgram + 04/28/20 Sodium 5:00:00 Chloride HAND III CUTTER, Stop 0.9% IV date: 04/28/20 23:59:00 HAND III CUTTER, 0 vancomycin 2019-05 No Notes: FOR M emoria 2-14 OR USE l 11:00: ONLY [place] 00 polymyxin B 2019-05 No Notes: Jaylan elvin sulfate + 2-14 (Same as: l Sodium 11:00: Polymyxin Kiko n Chloride 00 B Sulfate) 0.9% IV 250 mL ropivacaine 2019-05 No 99 ml/hr, Jessica emoria 0.5% 246.25 14 Route: l mg + 11:00: intra-PANCHO Frandy EPINEPHrine 00 CULAR, 0.5 mg + ONCALL, cloNIDine Start 80 date: microgram + 04/28/20 Sodium 5:00:00 Chloride HAND III CUTTER, Stop 0.9% IV date: 04/28/20 23:59:00 HAND III CUTTER, 0 vancomycin 2019-05 No Notes: FOR M emoria 2-14 OR USE l 11:00: ONLY Frandy 00 polymyxin B 2019-05 No Notes: Jaylan elvin sulfate + 2-14 (Same as: l Sodium 11:00: Polymyxin Kiko n Chloride 00 B Sulfate) 0.9% IV 250 mL omeprazole 2019-05 Yes 20 mg = 1 Me moria 20 mg oral 2-09 cap, PO, l delayed 16:33: Daily, 0 Kiko n release 00 Refill(s) capsule Diclofenac 2019-05 Yes 0 Memoria Sodium 10 2-09 Refill(s) l MG/ML 16:33: Frandy Topical 00 Cream omeprazole 2019-05 Yes 20 mg = 1 Me moria 20 mg oral 2-09 cap, PO, l delayed 16:33: Daily, 0 Kiko n release 00 Refill(s) capsule Diclofenac 2019-05 Yes 0 Memoria Sodium 10 2-09 Refill(s) l MG/ML 16:33: Orange Topical 00 Cream levothyroxi 2019- Yes 112 Memori a ne 112 mcg 2-09 microgram l (0.112 mg) 16:32: = 1 cap, Her horn oral 00 PO, Daily, capsule # 30 cap, 3 Refill(s) Escitalopra 2019- Yes 40 mg, PO, Memoria m 2-09 Daily, 0 l 16:32: Refill(s) Frandy 00 levothyroxi 2019- Yes 112 Memori a ne 112 mcg 2-09 microgram l (0.112 mg) 16:32: = 1 cap, Her horn oral 00 PO, Daily, capsule # 30 cap, 3 Refill(s) Escitalopra 2019- Yes 40 mg, PO, Memoria m 2-09 Daily, 0 l 16:32: Refill(s) Orange 00 Ketoconazol Ketoconazol 2020- No Gus [address] [facility]14 [facility] - 00:00: 00:00 Memoria 00 [facility] 2019-0 Yes 300 mg = 1 Mem oria 300 mg oral 8-25 cap, PO, l capsule 19:32: BID, # 180 Herm kash 00 cap, 0 Refill(s), Pharmacy: [facility], 154.94, cm, 10/30/19 23:53:00 CDT, Height, 82.841, kg, 10/30/19 23:53:00 CDT, Weight ursodiol 2019-0 Yes 300 mg = 1 Mem oria 300 mg oral 8-25 cap, PO, l capsule 19:32: BID, # 180 Herm kash 00 cap, 0 Refill(s), Pharmacy: [facility], 154.94, cm, 10/30/19 23:53:00 CDT, Height, 82.841, kg, 10/30/19 23:53:00 CDT, Weight midodrine 5 2019-0 Yes 5 mg = 1 Me moria mg oral 6-17 tab, PO, l tablet 16:11: TID, # 90 Kiko n 00 tab, 0 Refill(s), Pharmacy: [facility], 154.94, cm, 10/30/19 23:53:00 CDT, Height, 82.841, kg, 10/30/19 23:53:00 CDT, Weight midodrine 5 2020-0 Yes 5 mg = 1 Me moria mg oral 6-17 tab, PO, l tablet 16:11: TID, # 90 Kiko n 00 tab, 0 Refill(s), Pharmacy: [facility], 154.94, cm, 10/30/19 23:53:00 CDT, Height, 82.841, kg, 10/30/19 23:53:00 CDT, Weight Acetaminoph 2020-0 No 1 tab, PO, Memoria en 325 MG / 6-17 Q4H, PRN l Hydrocodone 14:01: for pain, H ermann Bitartrate 00 # 60 tab, 10 MG Oral 0 Tablet Refill(s), [Rowland given to ] patient 0.4 ML 2020-0 Yes 40 mg, Memoria Enoxaparin 6-17 SUB-Q, l sodium 100 14:01: Daily, X 9 H ermann MG/ML day, # 9 Prefilled ea, 0 Syringe Refill(s) [Lovenox] Acetaminoph 2020-0 No 1 tab, PO, Memoria en 325 MG / 6-17 Q4H, PRN l Hydrocodone 14:01: for pain, H ermann Bitartrate 00 # 60 tab, 10 MG Oral 0 Tablet Refill(s), [Rowland given to ] patient 0.4 ML 2020-0 Yes 40 mg, Memoria Enoxaparin 6-17 SUB-Q, l sodium 100 14:01: Daily, X 9 H ermann MG/ML day, # 9 Prefilled ea, 0 Syringe Refill(s) [Lovenox] Levothroid 2020-0 No 125 Memoria 6-17 microgram, l 11:30: 1 tab, Frandy Route: PO, Drug form: TAB, Q630AM, Dosing Weight 82.727, kg, Start date: 10/31/19 6:30:00 CDT, Duration: 30 day, Stop date: 11/29/19 6:30:00 CDT, 0 Levothroid 2020-0 No 125 Memoria 6-17 microgram, l 11:30: 1 tab, Frandy 00 Route: PO, Drug form: TAB, Q630AM, Dosing Weight 82.727, kg, Start date: 10/31/19 6:30:00 CDT, Duration: 30 day, Stop date: 11/29/19 6:30:00 CDT, 0 Vancomycin 2020-0 No 2000 mg: Me moria 6-17 infuse l 07:00: over 2.5 Orange 00 hours For adult patients only: Round to nearest 250 mg per Medical Staff approval MEDICATION WASTE Product Size: 1000 mg Product Wasted: ___ mg Vancomycin 2020-0 No 2000 mg: Me moria 6-17 infuse l 07:00: over 2.5 Orange 00 hours For adult patients only: Round to nearest 250 mg per Medical Staff approval MEDICATION WASTE Product Size: 1000 mg Product Wasted: ___ mg Tylenol 2020-0 No Notes: Max Jaylan elvin 6-17 acetaminop l 02:00: hen 4000 Frandy 00 mg/day (4 gm/day). (Same as: Tylenol Extra Strength) Tylenol 2020-0 No Notes: Max Jaylan elvin 6-17 acetaminop l 02:00: hen 4000 Orange 00 mg/day (4 gm/day). (Same as: Tylenol Extra Strength) Cefazolin 2020-0 No Notes: Memori a 6-17 (Same As: l 00:00: Ancef, Orange Kefzol) MEDICATION WASTE Product Size: 1000 mg Product Wasted: ___ mg Cefazolin 2020-0 No Notes: Memori a 6-17 (Same As: l 00:00: Ancef, Frandy Kefzol) MEDICATION WASTE Product Size: 1000 mg Product Wasted: ___ mg Zofran 2020-0 No Notes: Memoria 6-16 (Same as: l 23:00: Zofran) Frandy 00 MEDICATION WASTE Product Size: 4 mg Product Wasted: ___ mg Zofran 2020-0 No Notes: Memoria 6-16 (Same as: l 23:00: Zofran) Orange 00 MEDICATION WASTE Product Size: 4 mg Product Wasted: ___ mg Midodrine 2020-0 No Notes: Memori a 6-16 (Same l 22:52: as:Proamat Frandy 00 ine) Midodrine 0 No Notes: Memori a 6-16 (Same l 22:52: as:Proamat Orange 00 ine) NS (Bolus) 2019-0 No 250 mL, Jaylan elvin IV 6-16 250 ml/hr, l 22:51: Infuse Frandy 00 Over: 1 hr, Route: IV, 250, Drug form: INJ, ONCE, Priority: STAT, Dosing Weight 82.727 kg, Start date: 10/30/19 17:51:00 CDT, Stop date: 10/30/19 17:51:00 CDT, 0 NS (Bolus) 20200 No 250 mL, Jaylan elvin IV 6-16 250 ml/hr, l 22:51: Infuse Frandy 00 Over: 1 hr, Route: IV, 250, Drug form: INJ, ONCE, Priority: STAT, Dosing Weight 82.727 kg, Start date: 10/30/19 17:51:00 CDT, Stop date: 10/30/19 17:51:00 CDT, 0 Tylenol 0 No Notes: Do Memor ia 6-16 not exceed l 22:36: 4 gm/day. (Same as: Tylenol) Tylenol 0 No Notes: Do Memor ia 6-16 not exceed l 22:36: 4 gm/day. (Same as: Tylenol) Roxicodone 0 No Notes: Memor ia 6-16 (Same as: l 22:35: Roxicodone ) Roxicodone 0 No Notes: Memor ia 6-16 (Same as: l 22:35: Roxicodone ) Calcium 2020-0 No 1,000 mL, Memor ia Chloride 6-16 Rate: 125 l 0.0014 20:52: ml/hr, Orange MEQ/ML / 00 Infuse Potassium over: 8 Chloride hr, Route: 0.004 IV, Dosing MEQ/ML / Weight Sodium 82.727 kg, Chloride Total 0.103 Volume: MEQ/ML / 1,000, Sodium Start Lactate date: 0.028 10/30/19 MEQ/ML 15:52:00 Injectable CDT, Solution Duration: 30 day, Stop date: 11/29/19 15:51:00 CDT, 1.92, m2 Acetaminoph 2020-0 No 1,000 mg, M emoria en 10-29 Route: l 20:52: IVPB, Drug form: INJ, ONCE, Dosing Weight 82.727, kg, PRN Pain Score 1-3, Start date: 10/30/19 15:52:00 CDT Fentanyl 2020-0 No 25 Memoria 6-16 microgram, l 20:52: Route: Orange 00 IVP, Q5Min, Dosing Weight 82.727, kg, PRN Pain Score 4-6, Priority: Routine, Start date: 10/30/19 15:52:00 CDT, Duration: 4 doses or times, Stop date: Limited # of times Hydromorpho 2020-0 No 0.5 mg, Mem oria ne 10-29 Route: l 20:52: IVP, Orange 00 Q5Min, Dosing Weight 82.727, kg, PRN Pain Score 7-10, Start date: 10/30/19 15:52:00 CDT, Duration: 4 doses or times, Stop date: Limited # of times Flumazenil 2020-0 No 0.2 mg, Jaylan elvin 10-29 Route: l 20:52: IVP, PRN, Frandy 00 Dosing Weight 82.727, kg, PRN Benzodiaze pine Reversal, Initial dose, Start date: 10/30/19 15:52:00 CDT, Duration: 30 day, Stop date: 11/29/19 15:51:00 CDT Naloxone 2020-0 No 0.4 mg, Memori a 10-29 Route: l 20:52: IVP, Orange 00 Q2MIN, Dosing Weight 82.727, kg, PRN Narcotic Reversal, Start date: 10/30/19 15:52:00 CDT, Duration: 8 doses or times, Stop date: Limited # of times Diphenhydra 2020-0 No 12.5 mg, Me moria mine 10-29 Route: l 20:52: IVP, Drug form: INJ, Q6H, Dosing Weight 82.727, kg, PRN Itching, Start date: 10/30/19 15:52:00 CDT, Duration: 30 day, Stop date: 11/29/19 15:51:00 CDT Meperidine 2020-0 No 12.5 mg, Mem oria 10-29 Route: l 20:52: IVP, Frandy 00 Q30Min, Dosing Weight 82.727, kg, PRN Other -See Comment, For shivering, Start date: 10/30/19 15:52:00 CDT, Duration: 2 doses or times, Stop date: Limited # of times Ondansetron 2020-0 No 4 mg, Memor ia 10-29 Route: l 20:52: IVP, ONCE, Orange 00 Dosing Weight 82.727, kg, PRN Nausea & Vomiting, Start date: 10/30/19 15:52:00 CDT Promethazin 2020-0 No 6.25 mg, Me moria e 10-29 Route: l 20:52: IVPB, Frandy 00 ONCE, Dosing Weight 82.727, kg, PRN Nausea & Vomiting, Start date: 10/30/19 15:52:00 CDT 72 HR 2020-0 No 1 patch, Memoria Scopolamine 10-29 Route: l 0.0139 20:52: TOP, Drug Kiko n MG/HR 00 Form: Transdermal ERFILM, Patch Dosing Weight 82.727, kg, ONCE, Apply behind ear. Avoid use in elderly., Start date: 10/30/19 15:52:00 CDT, Stop date: 10/30/19 15:52:00 CDT Calcium 2020-0 No 1,000 mL, Memor ia Chloride 10-29 Rate: 125 l 0.0014 20:52: ml/hr, Frandy MEQ/ML / 00 Infuse Potassium over: 8 Chloride hr, Route: 0.004 IV, Dosing MEQ/ML / Weight Sodium 82.727 kg, Chloride Total 0.103 Volume: MEQ/ML / 1,000, Sodium Start Lactate date: 0.028 10/30/19 MEQ/ML 15:52:00 Injectable CDT, Solution Duration: 30 day, Stop date: 11/29/19 15:51:00 CDT, 1.92, m2 Acetaminoph 2020-0 No 1,000 mg, M emoria en 10-29 Route: l 20:52: IVPB, Drug Frandy 00 form: INJ, ONCE, Dosing Weight 82.727, kg, PRN Pain Score 1-3, Start date: 10/30/19 15:52:00 CDT Fentanyl 2020-0 No 25 Memoria 6-16 microgram, l 20:52: Route: Frandy 00 IVP, Q5Min, Dosing Weight 82.727, kg, PRN Pain Score 4-6, Priority: Routine, Start date: 10/30/19 15:52:00 CDT, Duration: 4 doses or times, Stop date: Limited # of times Hydromorpho 2020-0 No 0.5 mg, Mem oria ne 6-16 Route: l 20:52: IVP, Frandy 00 Q5Min, Dosing Weight 82.727, kg, PRN Pain Score 7-10, Start date: 10/30/19 15:52:00 CDT, Duration: 4 doses or times, Stop date: Limited # of times Flumazenil 2020-0 No 0.2 mg, Jaylan elvin 6-16 Route: l 20:52: IVP, PRN, Dosing Weight 82.727, kg, PRN Benzodiaze pine Reversal, Initial dose, Start date: 10/30/19 15:52:00 CDT, Duration: 30 day, Stop date: 11/29/19 15:51:00 CDT Naloxone 2020-0 No 0.4 mg, Memori a 6-16 Route: l 20:52: IVP, Frandy 00 Q2MIN, Dosing Weight 82.727, kg, PRN Narcotic Reversal, Start date: 10/30/19 15:52:00 CDT, Duration: 8 doses or times, Stop date: Limited # of times Diphenhydra 2020-0 No 12.5 mg, Me moria mine 6-16 Route: l 20:52: IVP, Drug form: INJ, Q6H, Dosing Weight 82.727, kg, PRN Itching, Start date: 10/30/19 15:52:00 CDT, Duration: 30 day, Stop date: 11/29/19 15:51:00 CDT Meperidine 2020-0 No 12.5 mg, Mem oria 6-16 Route: l 20:52: IVP, Frandy 00 Q30Min, Dosing Weight 82.727, kg, PRN Other -See Comment, For shivering, Start date: 10/30/19 15:52:00 CDT, Duration: 2 doses or times, Stop date: Limited # of times Ondansetron No 4 mg, Memor ia 6-16 Route: l 20:52: IVP, ONCE, Dosing Weight 82.727, kg, PRN Nausea & Vomiting, Start date: 10/30/19 15:52:00 CDT Promethazin No 6.25 mg, Me moria e 10-29 Route: l 20:52: IVPB, Orange 00 ONCE, Dosing Weight 82.727, kg, PRN Nausea & Vomiting, Start date: 10/30/19 15:52:00 CDT 72 HR No 1 patch, Memoria Scopolamine 10-29 Route: l 0.0139 20:52: TOP, Drug Kiko n MG/HR 00 Form: Transdermal ERFILM, Patch Dosing Weight 82.727, kg, ONCE, Apply behind ear. Avoid use in elderly., Start date: 10/30/19 15:52:00 CDT, Stop date: 10/30/19 15:52:00 CDT Enoxaparin No Notes: Memor ia 6-16 (Same as: l 20:00: Lovenox) Enoxaparin No Notes: Memor ia 6-16 (Same as: l 20:00: Lovenox) vasopressin No Route: IV, Memoria (ANES) 6-16 Drug form: l 19:57: INJ, ONCE, Stop date: 10/30/19 14:57:00 CDT vasopressin No Route: IV, Memoria (ANES) 6-16 Drug form: l 19:57: INJ, ONCE, Stop date: 10/30/19 14:57:00 CDT Insulin No Notes: Memoria Lispro 6-16 (Same as: l 19:55: Humalog) Roll in palms of hands gently; Do not shake vigorously . WASTE: F/P - Black; E - Municipal Trash Bin Stable for 28 days at room temperatur e. Expires in days from ____Date 05/17 NS 2020-0 No 1,000 mL, Memori a 1,000 mL 6-16 Rate: 75 l 19:55: ml/hr, Frandy 00 Infuse over: 13.3 hr, Route: IV, Dosing Weight 82.727 kg, Total Volume: 1,000, Start date: 10/30/19 14:55:00 CDT, Duration: 30 day, Stop date: 11/29/19 14:54:00 CDT, 1.92, m2, 0 Dextrose 2019-0 No 12.5 gm, Memor ia 50% Syringe -16 25 mL, l (D50W) 19:55: Route: Frandy 00 IVP, Drug Form: INJ, Dosing Weight 82.727, kg, PRN, PRN Blood Glucose Results, Start date: 10/30/19 14:55:00 CDT, Duration: 30 day, Stop date: 11/29/19 14:54:00 CDT, 0 Glucagon 2019-0 No 1 mg, Memoria -16 Route: IM, l 19:55: Drug form: Frandy 00 PDR/INJ, PRN, Dosing Weight 82.727, kg, PRN Blood Glucose Results, Start date: 10/30/19 14:55:00 CDT, Duration: 30 day, Stop date: 11/29/19 14:54:00 CDT, 0 Acetaminoph 2020-0 No Notes: Do M emoria en 325 MG / -16 not exceed l Hydrocodone 19:55: 4gm/day of Orange Bitartrate 00 acetaminop 10 MG Oral hen. Tablet (Same as: [Rowland Rowland 10/325] 325/10) Acetaminoph 2020-0 No 1 tab, Jaylan elvin en 325 MG / 6-16 Route: PO, l Oxycodone 19:55: Dosing Kiko n Hydrochlori 00 Weight de 10 MG 82.727, Oral Tablet kg, Q3H, [Percocet PRN Pain 10/325] Score 7-10, Start date: 10/30/19 14:55:00 CDT, Duration: 30 day, Stop date: 11/29/19 14:54:00 CDT Zofran 2020-0 No Notes: Memoria 6-16 (Same as: l 19:55: Zofran) MEDICATION WASTE Product Size: 4 mg Product Wasted: ___ mg Tranexamic 2020-0 No Notes: Memor ia Acid 6-16 (Same As: l 19:55: Cyklokapro n) Acetaminoph 2019-0 No Notes: Jaylan elvin en 325 MG / 6-16 (Same as: l Hydrocodone 19:55: Rowland Carly nn Bitartrate 00 325/5) Do 5 MG Oral not exceed Tablet 4gm/day of [Rowland acetaminop 5/325] hen. Insulin 2019-0 No Notes: Memoria Lispro 6-16 (Same as: l 19:55: Humalog) Roll in palms of hands gently; Do not shake vigorously . WASTE: F/P - Black; E - Municipal Trash Bin Stable for 28 days at room temperatur e. Expires in days from ____Date 05/17 NS 2020-0 No 1,000 mL, Memori a 1,000 mL 6-16 Rate: 75 l 19:55: ml/hr, Infuse over: 13.3 hr, Route: IV, Dosing Weight 82.727 kg, Total Volume: 1,000, Start date: 10/30/19 14:55:00 CDT, Duration: 30 day, Stop date: 11/29/19 14:54:00 CDT, 1.92, m2, 0 Dextrose 2020-0 No 12.5 gm, Memor ia 50% Syringe 6-16 25 mL, l (D50W) 19:55: Route: IVP, Drug Form: INJ, Dosing Weight 82.727, kg, PRN, PRN Blood Glucose Results, Start date: 10/30/19 14:55:00 CDT, Duration: 30 day, Stop date: 11/29/19 14:54:00 CDT, 0 Glucagon 2020-0 No 1 mg, Memoria 6-16 Route: IM, l 19:55: Drug form: Orange 00 PDR/INJ, PRN, Dosing Weight 82.727, kg, PRN Blood Glucose Results, Start date: 10/30/19 14:55:00 CDT, Duration: 30 day, Stop date: 11/29/19 14:54:00 CDT, 0 Acetaminoph 2020-0 No Notes: Do M emoria en 325 MG / 6-16 not exceed l Hydrocodone 19:55: 4gm/day of Frandy Bitartrate 00 acetaminop 10 MG Oral hen. Tablet (Same as: [Rowland Rowland 10/325] 325/10) Acetaminoph 0 No 1 tab, Jaylan elvin en 325 MG / 6-16 Route: PO, l Oxycodone 19:55: Dosing Kiko n Hydrochlori 00 Weight de 10 MG 82.727, Oral Tablet kg, Q3H, [Percocet PRN Pain 10/325] Score 7-10, Start date: 10/30/19 14:55:00 CDT, Duration: 30 day, Stop date: 11/29/19 14:54:00 CDT Zofran 2020-0 No Notes: Memoria 6-16 (Same as: l 19:55: Zofran) Frandy 00 MEDICATION WASTE Product Size: 4 mg Product Wasted: ___ mg Tranexamic 2019-0 No Notes: Memor ia Acid 6-16 (Same As: l 19:55: Cyklokapro Orange 00 n) Acetaminoph 2019-0 No Notes: Jaylan elvin en 325 MG / 6-16 (Same as: l Hydrocodone 19:55: Rowland Carly nn Bitartrate 00 325/5) Do 5 MG Oral not exceed Tablet 4gm/day of [Rowland acetaminop 5/325] hen. calcium 2020-0 No Route: IV, Jaylan elvin chloride 6-16 Drug form: l (ANES) 19:41: INJ, ONCE, Carly nn 00 Stop date: 10/30/19 14:41:00 CDT calcium 2020-0 No Route: IV, Jaylan elvin chloride 6-16 Drug form: l (ANES) 19:41: INJ, ONCE, Carly nn 00 Stop date: 10/30/19 14:41:00 CDT Sodium 2019-0 No Route: IV, Memor ia Chloride 6-16 Total l 0.9% IV 19:30: Volume: Frandy (ANES) 1000 00 1,000, mL Start date: 10/30/19 14:30:00 CDT, Stop date: 10/30/19 15:30:00 CDT Sodium 2020-0 No Route: IV, Memor ia Chloride 6-16 Total l 0.9% IV 19:30: Volume: Orange (ANES) 1000 00 1,000, mL Start date: 10/30/19 14:30:00 CDT, Stop date: 10/30/19 15:30:00 CDT esmolol 2020-0 No Route: IV, Jaylan elvin (ANES) 6-16 Drug form: l 19:11: INJ, ONCE, Stop date: 10/30/19 14:11:00 CDT glycopyrrol 2020-0 No Route: IV, Memoria ate (ANES) 6-16 Drug form: l 19:11: INJ, ONCE, Stop date: 10/30/19 14:11:00 CDT phenylephri 2020-0 No Route: IV, Memoria ne (ANES) 6-16 Drug form: l 19:11: INJ, ONCE, Stop date: 10/30/19 14:11:00 CDT esmolol 2020-0 No Route: IV, Jaylan elvin (ANES) 6-16 Drug form: l 19:11: INJ, ONCE, Stop date: 10/30/19 14:11:00 CDT glycopyrrol 2020-0 No Route: IV, Memoria ate (ANES) 6-16 Drug form: l 19:11: INJ, ONCE, Stop date: 10/30/19 14:11:00 CDT phenylephri 2020-0 No Route: IV, Memoria ne (ANES) 6-16 Drug form: l 19:11: INJ, ONCE, Stop date: 10/30/19 14:11:00 CDT dexamethaso 2020-0 No Route: IV, Memoria ne (ANES) 6-16 Drug form: l 18:40: INJ, ONCE, Stop date: 10/30/19 13:40:00 CDT dexamethaso 2020-0 No Route: IV, Memoria ne (ANES) 6-16 Drug form: l 18:40: INJ, ONCE, Stop date: 10/30/19 13:40:00 CDT fentaNYL 2020-0 No Route: IV, Mem oria (ANES) 6-16 Drug form: l 18:35: INJ, ONCE, Stop date: 10/30/19 13:35:00 CDT fentaNYL 2020-0 No Route: IV, Mem oria (ANES) 6-16 Drug form: l 18:35: INJ, ONCE, Stop date: 10/30/19 13:35:00 CDT rocuronium 2020-0 No Route: IV, M emoria (ANES) 6-16 Drug form: l 18:30: INJ, ONCE, Stop date: 10/30/19 13:30:00 CDT rocuronium 2020-0 No Route: IV, M emoria (ANES) 6-16 Drug form: l 18:30: INJ, ONCE, Stop date: 10/30/19 13:30:00 CDT ceFAZolin 2020-0 No Route: IV, Me moria (ANES) 6-16 Drug form: l 18:25: INJ, ONCE, Stop date: 10/30/19 13:25:00 CDT ceFAZolin 2020-0 No Route: IV, Me moria (ANES) 6-16 Drug form: l 18:25: INJ, ONCE, Stop date: 10/30/19 13:25:00 CDT lidocaine 2020-0 No Route: IV, Me moria (ANES) 6-16 Drug form: l 18:05: INJ, ONCE, Stop date: 10/30/19 13:05:00 CDT propofol 2020-0 No Route: IV, Mem oria (ANES) 6-16 Drug form: l 18:05: INJ, ONCE, Stop date: 10/30/19 13:05:00 CDT lidocaine 2020-0 No Route: IV, Me moria (ANES) 6-16 Drug form: l 18:05: INJ, ONCE, Stop date: 10/30/19 13:05:00 CDT propofol 2020-0 No Route: IV, Mem oria (ANES) 6-16 Drug form: l 18:05: INJ, ONCE, Stop date: 10/30/19 13:05:00 CDT tranexamic 2020-0 No Route: IV, M emoria acid (ANES) 6-16 Drug form: l 100 mg 18:02: INJ, Start Carly date: 10/30/19 13:02:00 CDT, Stop date: 10/30/19 14:02:00 CDT tranexamic 2020-0 No Route: IV, M emoria acid (ANES) 6-16 Drug form: l 100 mg 18:02: INJ, Start Carly date: 10/30/19 13:02:00 CDT, Stop date: 10/30/19 14:02:00 CDT vancomycin 2020-0 No Route: IV, Jessica emoria (ANES) 1000 6-16 Drug form: l mg 17:55: INJ, Start Orange 00 date: 10/30/19 12:55:00 CDT, Stop date: 10/30/19 13:55:00 CDT vancomycin 2020-0 No Route: IV, Jessica emoria (ANES) 1000 6-16 Drug form: l mg 17:55: INJ, Start date: 10/30/19 12:55:00 CDT, Stop date: 10/30/19 13:55:00 CDT midazolam 2020-0 No Route: IV, Me moria (ANES) 6-16 Drug form: l 17:49: FRANCESCON, Frandy ONCE, Stop date: 10/30/19 12:49:00 CDT midazolam 2020-0 No Route: IV, Me moria (ANES) 6-16 Drug form: l 17:49: SOLN, Orange 00 ONCE, Stop date: 10/30/19 12:49:00 CDT Lactated 2020-0 No Route: IV, Mem oria Ringers 6-16 Total l Injection 17:14: Volume: Carly nn IV (ANES) 00 1,000, 1000 mL Start date: 10/30/19 12:14:00 CDT, Stop date: 10/30/19 13:14:00 CDT Lactated 2020-0 No Route: IV, Mem oria Ringers 6-16 Total l Injection 17:14: Volume: Carly nn IV (ANES) 00 1,000, 1000 mL Start date: 10/30/19 12:14:00 CDT, Stop date: 10/30/19 13:14:00 CDT ropivacaine 2020-0 No Notes: Memoria 6-16 NOT FOR IV l 15:00: use Orange 00 Ropivacain e 5 mg/mL (49.25 mL) Epinephrin e 1 mg/mL (0.5 mL) Clonidine 0.1 mg/mL (0.8 mL) Ketorolac 30 mg/mL (1 mL) Normal Saline 48.45 mL ropivacaine 2020-0 No Notes: Memoria 6-16 NOT FOR IV l 15:00: use Frandy 00 Ropivacain e 5 mg/mL (49.25 mL) Epinephrin e 1 mg/mL (0.5 mL) Clonidine 0.1 mg/mL (0.8 mL) Ketorolac 30 mg/mL (1 mL) Normal Saline 48.45 mL gabapentin 2020-0 No 300 mg, Jaylan elvin 6-16 Route: PO, l 14:00: Gurvinder LEACHann Dosing Weight 82.727, kg, Start date: 10/30/19 9:00:00 CDT, Duration: 30 day, Stop date: 11/29/19 8:59:00 CDT ropivacaine 2020-0 No 100 mL, Mem oria 6-16 Route: l 14:00: InFILtrati Orange on(local), Drug Form: INJ, Dosing Weight 82.727, kg, ONCALL, Start date: 10/30/19 9:00:00 CDT, Duration: 30 day, Stop date: 11/29/19 8:59:00 CDT Oxycontin 2020-0 No 10 mg, Memori a 6-16 Route: PO, l 14:00: Drug form: Orange 00 ERTAB ONCALL, Dosing Weight 82.727, kg, Start date: 10/30/19 9:00:00 CDT, Duration: 30 day, Stop date: 11/29/19 8:59:00 CDT Tylenol 2020-0 No 1,000 mg, Memor ia 6-16 Route: PO, l 14:00: ONCALL, Dosing Weight 82.727, kg, Start date: 10/30/19 9:00:00 CDT, Duration: 30 day, Stop date: 11/29/19 8:59:00 CDT Cefazolin 2020-0 No Notes: Memori a 6-16 (Same As: l 14:00: Ancef Kefzol) MEDICATION WASTE Product Size: 1000 mg Product Wasted: ___ mg Vancomycin 2020-0 No 2001 mg: Me moria -16 infuse l 14:00: over 2.5 00 hours For adult patients only: Round to nearest 250 mg per Medical Staff approval MEDICATION WASTE Product Size: 1000 mg Product Wasted: ___ mg gabapentin 2020-0 No 300 mg, Jaylan elvin 10-29 Route: PO, l 14:00: ONCALL Dosing Weight 82.727, kg, Start date: 10/30/19 9:00:00 CDT, Duration: 30 day, Stop date: 11/29/19 8:59:00 CDT ropivacaine 2020-0 No 100 mL, Mem oria -16 Route: l 14:00: InFILtrati on(local), Drug Form: INJ, Dosing Weight 82.727, kg, ONCALL, Start date: 10/30/19 9:00:00 CDT, Duration: 30 day, Stop date: 11/29/19 8:59:00 CDT Oxycontin 2020-0 No 10 mg, Memori a 10-29 Route: PO, l 14:00: Drug form: ERTAB, ONCALL, Dosing Weight 82.727, kg, Start date: 10/30/19 9:00:00 CDT, Duration: 30 day, Stop date: 11/29/19 8:59:00 CDT Tylenol 2020-0 No 1,000 mg, Memor ia -16 Route: PO, l 14:00: ONCALLGurvinderFrandy 00 Dosing Weight 82.727, kg, Start date: 10/30/19 9:00:00 CDT, Duration: 30 day, Stop date: 11/29/19 8:59:00 CDT Cefazolin 2020-0 No Notes: Memori a 6-16 (Same As: l 14:00: Ancef, Frandy 00 Kefzol) MEDICATION WASTE Product Size: 1000 mg Product Wasted: ___ mg Vancomycin 2020-0 No 2000 mg: Me moria -16 infuse l 14:00: over 2.5 Orange 00 hours For adult patients only: Round to nearest 250 mg per Medical Staff approval MEDICATION WASTE Product Size: 1000 mg Product Wasted: ___ mg Calcium 2020-0 No 1,000 mL, Memor ia Chloride 16 Rate: 75 l 0.0014 13:28: ml/hr, Orange MEQ/ML / 00 Infuse Potassium over: 13.3 Chloride hr, Route: 0.004 IV, Dosing MEQ/ML / Weight Sodium 82.727 kg, Chloride Total 0.103 Volume: MEQ/ML / 1,000, Sodium Start Lactate date: 0.028 16/20 MEQ/ML 8:28:00 Injectable CDT, Solution Duration: 30 day, Stop date: 11/29/19 8:27:00 CDT, 1.92, m2 Calcium 2020-0 No 1,000 mL, Memor ia Chloride 16 Rate: 75 l 0.0014 13:28: ml/hr, Frandy MEQ/ML / 00 Infuse Potassium over: 13.3 Chloride hr, Route: 0.004 IV, Dosing MEQ/ML / Weight Sodium 82.727 kg, Chloride Total 0.103 Volume: MEQ/ML / 1,000, Sodium Start Lactate date: 0.028 16/20 MEQ/ML 8:28:00 Injectable CDT, Solution Duration: 30 day, Stop date: 11/29/19 8:27:00 CDT, 1.92, m2 1 ML 0 Yes See Memoria alirocumab 6-11 Instructio l 75 MG/ML 17:51: ns, SUB-Q, Her horn Auto-Inject 00 0 or Refill(s) [Praluent] 1 ML Yes See Memoria alirocumab 6-11 Instructio l 75 MG/ML 17:51: ns, SUB-Q, Her horn Auto-Inject 00 0 or Refill(s) [Praluent] empaglifloz 2020-0 Yes 10 mg = 1 M emoria in 10 MG 6-11 tab, PO, l Oral Tablet 17:50: QAM, 0 Herm kash [Jardiance] 00 Refill(s) Vitamin D3 2020-0 Yes See Memoria 6-11 Instructio l 17:50: ns, Daily, Frandy 00 0 Refill(s) empaglifloz 2020-0 Yes 10 mg = 1 M emoria in 10 MG 6-11 tab, PO, l Oral Tablet 17:50: QAM, 0 Herm kash [Jardiance] 00 Refill(s) Vitamin D3 2020-0 Yes See Memoria 6-11 Instructio l 17:50: ns, Daily, Frandy 00 0 Refill(s) ursodiol 2020-0 Yes 300 mg = 1 Mem oria 300 mg oral 6-10 cap, PO, l capsule 16:17: BID, # 180 Herm kash 00 cap, 0 Refill(s), Pharmacy: [facility] 527 ursodiol 2020-0 Yes 300 mg = 1 Mem oria 300 mg oral 6-10 cap, PO, l capsule 16:17: BID, # 180 Herm kash 00 cap, 0 Refill(s), Pharmacy: [facility] 527 Smoothie 2020-0 No 450 mL, Memori a Readi-Cat 2 3-19 Susp, l 18:00: Oral, Orange 00 Once, first dose 08/02/19 13:00:00 CDT, stop date 08/02/19 13:00:00 CDT, Out-Patien t Smoothie 2020-0 No 450 mL, Memori a Readi-Cat 2 3-19 Susp, l 18:00: Oral, Orange 00 Once, first dose 08/02/19 13:00:00 CDT, stop date 08/02/19 13:00:00 CDT, Out-Patien t Saline Lock 2020-0 No 10 mL, Jaylan elvin Flush 3-19 Soln, IV l 17:59: Push, As Orange 00 Indicated PRN for flush, first dose 08/02/19 12:59:00 CDT Saline Lock 2020-0 No 10 mL, Jaylan elvin Flush 3-19 Soln, IV l 17:59: Push, As Frandy 00 Indicated PRN for flush, first dose 08/02/19 12:59:00 CDT Albuterol Albuterol Yes Gus [address] [facility] Sulfate HFA Sulfate HFA 8-16 [place] [facility] aspirin 81 Yes 81mg QD Take [address] MG chewable 8-10 by mouth [facility] - tablet 16:15: daily. [facility] citalopram Yes 40mg QD Take [address] (CELEXA) 20 8-10 by mouth [facility] - MG tablet 16:15: daily. [facility] loratadine Yes 10mg Take [address] (CLARITIN) 8-10 by [facility] - 10 mg 16:15: as needed. Medica l tablet 22 Center cholecalcif Yes 2000U QD Take 2,[address] [facility] mirian, 8-10 Units by [facility] - vitamin D3, 16:15: mouth Medic al 2,000 unit 22 daily. Center Tab RASUVO, PF, Yes 20mg Q7D Inject [address] 20 mg/0.4 7-24 mg [facility] - mL AtIn 00:00: subcutaneo Medi richy 00 usly once Center a week. folic acid Yes 1000ug QD Take 1,[address] [facility] (FOLVITE) 1 7-02 mcg by [facility] - MG tablet 00:00: mouth Medical 00 daily. [facility] 5 Yes 5mg QD Take [address] mg Tab 5-11 by [facility]: daily. [facility] 00 Center levothyroxi Yes 112ug Take [address] ne 4-16 mcg by [facility] - (SYNTHROID, 00:00: mouth Medic al LEVOTHROID) 00 every Center 112 MCG morning tablet before breakfast. Aspirin 81 Yes 81 mg = 1 Me moria MG Chewable 1-25 tab, PO, l Tablet 19:26: Daily, Orange 00 tab, 0 Refill(s) Aspirin 81 Yes 81 mg = 1 Me moria MG Chewable 1-25 tab, PO, l Tablet 19:26: Daily, Orange 00 tab, 0 Refill(s) Docusate Yes 100 mg = 1 [facility]ria Sodium 100 1-25 cap, PO, l MG Oral 15:31: BID, # 20 Carly nn Capsule 00 cap, 0 [Colace] Refill(s) Methocarbam No 750 mg = 1 Memoria ol 750 MG 1-25 tab, PO, l Oral Tablet 15:31: Q6H, PRN He rmann [Robaxin] 00 Spasms, X 10 day, # 40 tab, 0 Refill(s) tramadol No 50 mg = 1 Jaylan elvin hydrochlori 1-25 tab, PO, l de 50 MG 15:31: Q6H, PRN Carly nn Oral Tablet 00 Pain, X 10 day, # 40 tab, 0 Refill(s) Docusate Yes 100 mg = 1 Mem oria Sodium 100 1-25 cap, PO, l MG Oral 15:31: BID, # 20 Carly nn Capsule 00 cap, 0 [Colace] Refill(s) Methocarbam No 750 mg = 1 Memoria ol 750 MG 1-25 tab, PO, l Oral Tablet 15:31: Q6H, PRN He rmann [Robaxin] 00 Spasms, X 10 day, # 40 tab, 0 Refill(s) tramadol No 50 mg = 1 Jaylan elvin hydrochlori 1-25 tab, PO, l de 50 MG 15:31: Q6H, PRN Carly nn Oral Tablet 00 Pain, X 10 day, # 40 tab, 0 Refill(s) Levothroid No Notes: Memor ia 1-25 Take 1 l 15:00: hour Frandy 00 before or 2 hours after meal; Enteral feeds may interefere with the absorption of this medication . (Same as:Levothr oid) Escitalopra No Notes: Jaylan elvin m 1-25 (Same as: l 15:00: Lexapro) aspirin 325 No Notes: Jaylan elvin mg tablet 1-25 Take with l 15:00: food. Levothroid No Notes: Memor ia 1-25 Take 1 l 15:00: hour Frandy 00 before or 2 hours after meal; Enteral feeds may interefere with the absorption of this medication . (Same as:Levothr oid) Escitalopra No Notes: Jaylan elvin m 1-25 (Same as: l 15:00: Lexapro) aspirin 325 No Notes: Jaylan elvin mg tablet 1-25 Take with l 15:00: food. Benadryl No Notes: Memoria 1-25 (Same as: l 01:51: Benadryl) Benadryl No Notes: [facility] 1-25 (Same as: l 01:51: Benadryl) Dextrose No 12.5 gm, Memor ia 50% Syringe 24 25 mL, l 23:01: Route: Frandy 00 IVP, Drug Form: INJ, Dosing Weight 85, kg, PRN, PRN Blood Glucose Results, Start date: 06/08/17 17:01:00 HAND III CUTTER, Duration: 30 day, Stop date: 07/08/17 17:00:00 HAND III CUTTER Glucagon No 1 mg, Memoria 24 Route: IM, l 23:01: Drug form: PDR/INJ, PRN, Dosing Weight 85, kg, PRN Blood Glucose Results, Start date: 06/08/17 17:01:00 HAND III CUTTER, Duration: 30 day, Stop date: 07/08/17 17:00:00 HAND III CUTTER Insulin No Notes: [facility] Lispro -24 (Same as: l 23:01: Humalog ) Roll in palms of hands gently; Do not shake `vigorousl y. "Single Patient Use Only " WASTE: F/P - Black; E - Municipal Trash Bin Stable for 28 days at room temperatur e. Expires in days from ____Date Dextrose No 12.5 gm, Memor ia 50% Syringe 24 25 mL, l 23:01: Route: Frandy IVP, Drug Form: INJ, Dosing Weight 85, kg, PRN, PRN Blood Glucose Results, Start date: 06/08/17 17:01:00 HAND III CUTTER, Duration: 30 day, Stop date: 07/08/17 17:00:00 HAND III CUTTER Glucagon 2017-0 No 1 mg, Memoria 1-24 Route: IM, l 23:01: Drug form: Orange PDR/INJ, PRN, Dosing Weight 85, kg, PRN Blood Glucose Results, Start date: 06/08/17 17:01:00 HAND III CUTTER, Duration: 30 day, Stop date: 07/08/17 17:00:00 HAND III CUTTER Insulin No Notes: [facility] Lispro 06-08 (Same as: l 23:01: Humalog ) Roll in palms of hands gently; Do not shake `vigorousl y. "Single Patient Use Only " WASTE: F/P - Black; E - Municipal Trash Bin Stable for 28 days at room temperatur e. Expires in days from ____Date Levalbutero No Notes: Jaylan elvin l 06-08 Same as l 23:00: Xopenex Frandy HFA WASTE: Aerosol - Return to Pharmacy Docusate No Notes: [facility] 06-08 (Same as: l 23:00: Colace) Orange (Do Not Crush) ceFAZolin + No Notes: Jaylan elvin sterile 06-08 (Same As: l water 20 mL 23:00: Ancef, Herm kash Kefzol) MEDICATION WASTE Product Size: 1000 mg Product Wasted: ___ mg Levalbutero No Notes: Jaylan elvin l 06-08 Same as l 23:00: Xopenex Frandy HFA WASTE: Aerosol - Return to Pharmacy Docusate No Notes: [facility]oria 06-08 (Same as: l 23:00: Colace) Frandy (Do Not Crush) ceFAZolin + No Notes: Jaylan elvin sterile 06-08 (Same As: l water 20 mL 23:00: Ancef, Herm kash 00 Kefzol) MEDICATION WASTE Product Size: 1000 mg Product Wasted: ___ mg Cefazolin No 1 gm, Memoria 06-08 Route: l 22:00: IVPB, Drug form: INJ, Q8H, Dosing Weight 85.3, kg, Start date: 06/08/17 16:00:00 HAND III CUTTER, Duration: 1 doses or times, Stop date: 06/08/17 16:00:00 HAND III CUTTER, ABX Indication : Surgical Prophylaxi s Cefazolin 2018-0 No 1 gm, Memoria 06-08 Route: l 22:00: IVPB, Drug form: INJ, Q8H, Dosing Weight 85.3, kg, Start date: 06/08/17 16:00:00 HAND III CUTTER, Duration: 1 doses or times, Stop date: 06/08/17 16:00:00 HAND III CUTTER, ABX Indication : Surgical Prophylaxi s ondansetron 2017-0 No Route: IV, Memoria (ANES) 06-08 Drug form: l 16:04: INJ, ONCE, Stop date: 06/08/17 10:04:00 HAND III CUTTER famotidine 2017-0 No Route: IV, M emoria (ANES) 06-08 Drug form: l 16:04: INJ, ONCE, Stop date: 06/08/17 10:04:00 HAND III CUTTER neostigmine 2018-0 No Route: IV, Memoria (ANES) 06-08 Drug form: l 16:04: INJ, ONCE, Stop date: 06/08/17 10:04:00 HAND III CUTTER glycopyrrol 2017-0 No Route: IV, Memoria ate (ANES) 06-08 Drug form: l 16:04: INJ, ONCE, Stop date: 06/08/17 10:04:00 HAND III CUTTER ondansetron 2018-0 No Route: IV, Memoria (ANES) 06-08 Drug form: l 16:04: INJ, ONCE, Stop date: 06/08/17 10:04:00 HAND III CUTTER famotidine 2018-0 No Route: IV, M emoria (ANES) 06-08 Drug form: l 16:04: INJ, ONCE, Stop date: 06/08/17 10:04:00 HAND III CUTTER neostigmine 2018-0 No Route: IV, Memoria (ANES) 06-08 Drug form: l 16:04: INJ, ONCE, Frandy 00 Stop date: 06/08/17 10:04:00 HAND III CUTTER glycopyrrol 2018-0 No Route: IV, Memoria ate (ANES) 06-08 Drug form: l 16:04: INJ, ONCE, Orange 00 Stop date: 06/08/17 10:04:00 HAND III CUTTER Insulin 2018-0 No Notes: [facility] Lispro 1-24 (Same as: l 16:03: Humalog ) Frandy 00 Roll in palms of hands gently; Do not shake `vigorousl y. "Single Patient Use Only " WASTE: F/P - Black; E - Municipal Trash Bin Stable for 28 days at room temperatur e. Expires in days from ____Date Dextrose 2018-0 No 12.5 gm, Mem[facility] ia 50% Syringe 1-24 25 mL, l 16:03: Route: Orange 00 IVP, Drug Form: INJ, Dosing Weight 85.3, kg, PRN, PRN Blood Glucose Results, Start date: 06/08/17 10:03:00 HAND III CUTTER, Duration: 30 day, Stop date: 07/08/17 10:02:00 HAND III CUTTER Glucagon 2018-0 No 1 mg, Memoria 24 Route: IM, l 16:03: Drug form: Frandy 00 PDR/INJ, PRN, Dosing Weight 85.3, kg, PRN Blood Glucose Results, Start date: 06/08/17 10:03:00 HAND III CUTTER, Duration: 30 day, Stop date: 07/08/17 10:02:00 HAND III CUTTER Insulin 2018-0 No Notes: [facility] Lispro 1-24 (Same as: l 16:03: Humalog ) Orange 00 Roll in palms of hands gently; Do not shake `vigorousl y. "Single Patient Use Only " WASTE: F/P - Black; E - Municipal Trash Bin Stable for 28 days at room temperatur e. Expires in days from ____Date Dextrose 2018-0 No 12.5 gm, Memor ia 50% Syringe 1-24 25 mL, l 16:03: Route: Frandy 00 IVP, Drug Form: INJ, Dosing Weight 85.3, kg, PRN, PRN Blood Glucose Results, Start date: 06/08/17 10:03:00 HAND III CUTTER, Duration: 30 day, Stop date: 07/08/17 10:02:00 HAND III CUTTER Glucagon 2018-0 No 1 mg, Memoria 1-24 Route: IM, l 16:03: Drug form: Orange PDR/INJ, PRN, Dosing Weight 85.3, kg, PRN Blood Glucose Results, Start date: 06/08/17 10:03:00 HAND III CUTTER, Duration: 30 day, Stop date: 07/08/17 10:02:00 HAND III CUTTER Bisacodyl No Notes: Memori a 06-08 (Same As: l 15:59: Dulcolax, Frandy Correctol) (Do Not Crush) "Do Not Crush" Dexamethaso No Notes: Jaylan elvin ne 06-08 Concentrat l 15:59: ion: Frandy 4mg/ml Methocarbam No Notes: Jaylan elvin ol 06-08 (Same l 15:59: as:Robaxin Frandy 00 ) Acetaminoph No Notes: Jaylan elvin en 325 MG / 06-08 Same as l Hydrocodone 15:59: Rowland Carly nn Bitartrate 00 325-7.5mg 7.5 MG Oral Do not Tablet exceed [Rowland 4gm/day of 7.5/325] acetaminop hen. Oxycodone No Notes: Memori a Hydrochlori 06-08 (Same as: l de 5 MG 15:59: Roxicodone Herm kash Oral Tablet ) Aluminum No 30 mL, Memoria Hydroxide / 06-08 Route: PO, l magnesium 15:59: Dosing Kiko n carbonate 00 Weight 85.3, kg, Q4H, PRN as needed for indigestio n, Start date: 06/08/17 9:59:00 HAND III CUTTER Maalox No Notes: Memoria Advanced 06-08 (aluminum l Regular 15:59: hydroxide- Herm kash Strength 00 magnesium SUSP hyd-simeth icone 200-200-20 mg/5ml 30 ml ud CLAYTON) Zofran No Notes: Memoria 06-08 (Same as: l 15:59: Zofran) Frandy 00 MEDICATION WASTE Product Size: 4 mg Product Wasted: ___ mg Meperidine No Notes: Memor ia 06-08 (Same as: l 15:59: Demerol) Orange "Use Precaution in Elderly, Seizure disorders, and Renal impairment " Phenergan No Notes: Do Mem oria 06-08 not give l 15:59: IV push. Frandy (Same as: Phenergan) Temazepam No Notes: Memori a 06-08 (Same As: l 15:59: Restoril) Orange 00 Acetaminoph No Notes: Do M emoria en 06-08 not exceed l 15:59: 4 gm/day. Frandy 00 (Same as: Tylenol) 1/2NS + KCL No Notes: Jaylan elvin 20mEq/L 06-08 PREMIX IV l 1000ml 15:59: - Do Not Frandy (Premix) 00 Alter 1,000 mL WASTE: F/P - Sink; E - Municipal Trash Bin tramadol No Notes: Not Mem oria hydrochlori 06-08 to exceed l de 50 MG 15:59: 400mg/day. Her horn Oral Tablet 00 (Same As: [Ultram] Ultram) Bisacodyl No Notes: Memori a 06-08 (Same As: l 15:59: Dulcolax, Orange 00 Correctol) (Do Not Crush) "Do Not Crush" Dexamethaso No Notes: Jaylan elvin ne 06-08 Concentrat l 15:59: ion: Frandy 00 4mg/ml Methocarbam No Notes: Jaylan elvin ol 06-08 (Same l 15:59: as:Robaxin Orange ) Acetaminoph No Notes: Jaylan elvin en 325 MG / 06-08 Same as l Hydrocodone 15:59: Rowland Carly nn Bitartrate 00 325-7.5mg 7.5 MG Oral Do not Tablet exceed [Rowland 4gm/day of 7.5/325] acetaminop hen. Oxycodone No Notes: Memori a Hydrochlori 06-08 (Same as: l de 5 MG 15:59: Roxicodone Herm kash Oral Tablet 00 ) Aluminum No 30 mL, Memoria Hydroxide / 06-08 Route: PO, l magnesium 15:59: Dosing Kiko n carbonate 00 Weight 85.3, kg, Q4H, PRN as needed for indigestio n, Start date: 06/08/17 9:59:00 HAND III CUTTER Maalox No Notes: [facility] Advanced 06-08 (aluminum l Regular 15:59: hydroxide- Herm kash Strength 00 magnesium SUSP hyd-simeth icone 200-200-20 mg/5ml 30 ml ud CLAYTON) Zofran No Notes: Memoria 24 (Same as: l 15:59: Zofran) Orange 00 MEDICATION WASTE Product Size: 4 mg Product Wasted: ___ mg Meperidine No Notes: Memor ia 06-08 (Same as: l 15:59: Demerol) "Use Precaution in Elderly, Seizure disorders, and Renal impairment " Phenergan No Notes: Do Mem oria 06-08 not give l 15:59: IV push. Orange (Same as: Phenergan) Temazepam No Notes: Memori a 06-08 (Same As: l 15:59: Restoril) Acetaminoph No Notes: Do M emoria en 06-08 not exceed l 15:59: 4 gm/day. Orange (Same as: Tylenol) 1/2NS + KCL No Notes: Jaylan elvin 20mEq/L 06-08 PREMIX IV l 1000ml 15:59: - Do Not Frandy (Premix) 00 Alter 1,000 mL WASTE: F/P - Sink; E - Municipal Trash Bin tramadol No Notes: Not Mem oria hydrochlori 06-08 to exceed l de 50 MG 15:59: 400mg/day. Her horn Oral Tablet 00 (Same As: [Ultram] Ultram) Ondansetron No 4 mg, Memor ia 06-08 Route: l 15:52: IVP, Drug form: INJ, ONCE, Dosing Weight 85.3, kg, PRN Nausea & Vomiting, Start date: 06/08/17 9:52:00 HAND III CUTTER Flumazenil No Notes: Memor ia 24 (Same as: l 15:52: Romazicon) Naloxone No Notes: Memoria 24 Same as l 15:52: Narcan Atropine No Notes: Mem oria -24 MEDICATION l 15:52: WASTE Product Size: 1 mg Product Wasted: ___ mg Ephedrine No Notes: Memori a 06-08 final l 15:52: concentrat ion 5 mg/mL Oxycodone No Notes: Memori a 06-08 (Same as: l 15:52: 'Roxicodon e) Fentanyl No Notes: Memoria 06-08 (Same as: l 15:52: Sublimaze) Preservat bao free. Labetalol No Notes: Memori a 06-08 (Same as: l 15:52: Normodyne, Trandate) Push over 2 minutes Give bolus over 2-3 minutes. Hydromorpho No 0.5 mg, Mem oria ne 06-08 0.5 mL, l 15:52: Route: IVP, Drug form: INJ, Q5Min, Dosing Weight 85.3, kg, PRN Pain Score 7-10, Start date: 06/08/17 9:52:00 HAND III CUTTER, Duration: 4 doses or times, Stop date: Limited # of times Acetaminoph No Notes: Jaylan elvin en 06-08 Infuse l 15:52: over 15 minutes Do not exceed 4gm/day of acetaminop hen MEDICATION WASTE Product Size: 1000 mg Product Wasted: ___ mg Ondansetron No 4 mg, Memor ia 06-08 Route: l 15:52: IVP, Drug form: INJ, ONCE, Dosing Weight 85.3, kg, PRN Nausea & Vomiting, Start date: 06/08/17 9:52:00 HAND III CUTTER Flumazenil No Notes: Memor ia 24 (Same as: l 15:52: Romazicon) Naloxone No Notes: Memoria 24 Same as l 15:52: Narcan Atropine No Notes: Mem oria -24 MEDICATION l 15:52: WASTE Product Size: 1 mg Product Wasted: ___ mg Ephedrine No Notes: Memori a 06-08 final l 15:52: concentrat ion 5 mg/mL Oxycodone No Notes: Memori a 06-08 (Same as: l 15:52: 'Roxicodon e) Fentanyl No Notes: Memoria 06-08 (Same as: l 15:52: Sublimaze) Preservat bao free. Labetalol No Notes: Memori a 06-08 (Same as: l 15:52: Normodyne, Trandate) Push over 2 minutes Give bolus over 2-3 minutes. Hydromorpho No 0.5 mg, Mem oria ne 06-08 0.5 mL, l 15:52: Route: IVP, Drug form: INJ, Q5Min, Dosing Weight 85.3, kg, PRN Pain Score 7-10, Start date: 06/08/17 9:52:00 HAND III CUTTER, Duration: 4 doses or times, Stop date: Limited # of times Acetaminoph No Notes: Jaylan elvin en 06-08 Infuse l 15:52: over 15 minutes Do not exceed 4gm/day of acetaminop hen MEDICATION WASTE Product Size: 1000 mg Product Wasted: ___ mg dexamethaso No Route: IV, Memoria ne (ANES) 06-08 Drug form: l 15:44: INJ, ONCE, Stop date: 06/08/17 9:44:00 HAND III CUTTER dexamethaso No Route: IV, Memoria ne (ANES) 06-08 Drug form: l 15:44: INJ, ONCE, Stop date: 06/08/17 9:44:00 HAND III CUTTER hydromorpho No Route: IV, Memoria ne (ANES) 06-08 Drug form: l 15:39: INJ, ONCE, Stop date: 06/08/17 9:39:00 HAND III CUTTER lidocaine No Route: IV, Me moria (ANES) 06-08 Drug form: l 15:39: INJ, ONCE, Stop date: 06/08/17 9:39:00 HAND III CUTTER hydromorpho 2018-0 No Route: IV, Memoria ne (ANES) 06-08 Drug form: l 15:39: INJ, ONCE, Stop date: 06/08/17 9:39:00 HAND III CUTTER lidocaine 2018-0 No Route: IV, Me moria (ANES) 06-08 Drug form: l 15:39: INJ, ONCE, Stop date: 06/08/17 9:39:00 HAND III CUTTER rocuronium 2018-0 No Route: IV, M emoria (ANES) 06-08 Drug form: l 15:34: INJ, ONCE, Stop date: 06/08/17 9:34:00 HAND III CUTTER propofol 2018-0 No Route: IV, Mem oria (ANES) 06-08 Drug form: l 15:34: INJ, ONCE, Stop date: 06/08/17 9:34:00 HAND III CUTTER fentaNYL 2018-0 No Route: IV, Mem oria (ANES) 06-08 Drug form: l 15:34: INJ, ONCE, Stop date: 06/08/17 9:34:00 HAND III CUTTER midazolam 2018-0 No Route: IV, Me moria (ANES) 06-08 Drug form: l 15:34: SOLN, Orange 00 ONCE, Stop date: 06/08/17 9:34:00 HAND III CUTTER ceFAZolin 2018-0 No Route: IV, Me moria (ANES) 06-08 Drug form: l 15:34: INJ, ONCE, Stop date: 06/08/17 9:34:00 HAND III CUTTER rocuronium 2018-0 No Route: IV, M emoria (ANES) 06-08 Drug form: l 15:34: INJ, ONCE, Stop date: 06/08/17 9:34:00 HAND III CUTTER propofol 2018-0 No Route: IV, Mem oria (ANES) 06-08 Drug form: l 15:34: INJ, ONCE, Stop date: 06/08/17 9:34:00 HAND III CUTTER fentaNYL 2018-0 No Route: IV, Mem oria (ANES) 06-08 Drug form: l 15:34: INJ, ONCE, Orange 00 Stop date: 06/08/17 9:34:00 HAND III CUTTER midazolam 2018-0 No Route: IV, Me moria (ANES) 24 Drug form: l 15:34: SOLN, Frandy 00 ONCE, Stop date: 06/08/17 9:34:00 HAND III CUTTER ceFAZolin 2017-0 No Route: IV, Me moria (ANES) 1-24 Drug form: l 15:34: INJ, ONCE, Orange 00 Stop date: 06/08/17 9:34:00 HAND III CUTTER Isolyte S 2017-0 No Route: IV, Me moria PH 7.4 1-24 Total l (ANES) 1000 14:23: Volume: Her horn mL 00 1,000, Start date: 06/08/17 8:23:00 HAND III CUTTER, Stop date: 06/08/17 9:23:00 HAND III CUTTER Isolyte S 2017-0 No Route: IV, Me moria PH 7.4 1-24 Total l (ANES) 1000 14:23: Volume: Her horn mL 00 1,000, Start date: 06/08/17 8:23:00 HAND III CUTTER, Stop date: 06/08/17 9:23:00 HAND III CUTTER escitalopra 2017-0 Yes 20 mg = 1 M emoria m 20 mg 1-17 tab, PO, l oral tablet 19:38: Daily, # He rmann 00 30 tab, 0 Refill(s) Aspirin 325 2017-0 No 325 mg = 1 Memoria MG Enteric 1-17 tab, PO, l Coated 19:38: Daily, # Frandy Tablet 00 30 tab, 0 Refill(s) Loratadine No 10 mg = 1 Me moria 10 MG Oral 1-17 tab, PO, l Tablet 19:38: Daily, # 7 Carly nn [Claritin] 00 tab, 0 Refill(s) escitalopra 2017- Yes 20 mg = 1 M emoria m 20 mg 1-17 tab, PO, l oral tablet 19:38: Daily, # He rmann 00 30 tab, 0 Refill(s) Aspirin 325 2017-0 No 325 mg = 1 Memoria MG Enteric 1-17 tab, PO, l Coated 19:38: Daily, # Orange Tablet 00 30 tab, 0 Refill(s) Loratadine 2017- No 10 mg = 1 Me moria 10 MG Oral 1-17 tab, PO, l Tablet 19:38: Daily, # 7 Carly nn [Claritin] 00 tab, 0 Refill(s) 1 ML 2018 No 75 mg, Memoria alirocumab 1-17 SUB-Q, 0 l 75 MG/ML 19:37: Refill(s) Herm kash Auto-Inject 00 or [Praluent] 200 ACTUAT Yes ASPIRIN, Mem oria Levalbutero 1-17 INHALATION l l 0.045 19:37: , Q6H, PRN Herm kash MG/ACTUAT 00 Cough, Metered wheezing, Dose shortness Inhaler of breath, [Xopenex] # 15 gm, 2 Refill(s) Vitamin D3 No 2,000 Memori a 2000 intl 1-17 IntlUnit = l units oral 19:37: 1 tab, PO, H ermann tablet 00 Daily, 0 Refill(s) 1 ML No 75 mg, Memoria alirocumab 1-17 SUB-Q, 0 l 75 MG/ML 19:37: Refill(s) Herm kash Auto-Inject 00 or [Praluent] 200 ACTUAT Yes ASPIRIN, Mem oria Levalbutero 1-17 INHALATION l l 0.045 19:37: , Q6H, PRN Herm kash MG/ACTUAT 00 Cough, Metered wheezing, Dose shortness Inhaler of breath, [Xopenex] # 15 gm, 2 Refill(s) Vitamin D3 No 2,000 Memori a 2000 intl 1-17 IntlUnit = l units oral 19:37: 1 tab, PO, H ermann tablet 00 Daily, 0 Refill(s) Levothyroxi Yes 125 Memori a ne Sodium 1-17 microgram l 0.125 MG 19:36: = 1 tab, Carly nn Oral Tablet 00 PO, Daily, [Levothroid # 30 tab, ] 0 Refill(s) Metformin No LEVOTHYRO, Me moria hydrochlori 1-17 PO, Daily, l de 500 MG 19:36: take with Her horn Oral Tablet 00 a meal, # 30 tab, 1 Refill(s) Levothyroxi Yes 125 Memori a ne Sodium 1-17 microgram l 0.125 MG 19:36: = 1 tab, Carly nn Oral Tablet 00 PO, Daily, [Levothroid # 30 tab, ] 0 Refill(s) Metformin No LEVOTHYRO, moria hydrochlori 1-17 PO, Daily, l de 500 MG 19:36: take with Her horn Oral Tablet 00 a meal, # 30 tab, 1 Refill(s) tramadol Yes 50 mg = 1 Jaylan elvin hydrochlori 1-08 tab, PO, l de 50 MG 16:20: Q6H, Pain, Her horn Oral Tablet 00 # 40 tab, [Ultram] 0 Refill(s), called to pharmacy tramadol Yes 50 mg = 1 Jaylan elvin hydrochlori 1-08 tab, PO, l de 50 MG 16:20: Q6H, Pain, Her horn Oral Tablet 00 # 40 tab, [Ultram] 0 Refill(s), called to pharmacy methocarbam Yes 750 mg = 1 Memoria ol 750 mg 1-08 tab, PO, l oral tablet 15:42: Q6H, Kiko n 00 Muscle Spasms, # 40 tab, 0 Refill(s), given to patient Docusate Yes 100 mg = 1 Mem oria Sodium 100 1-08 cap, PO, l MG Oral 15:42: BID, # 20 Carly nn Capsule 00 cap, 0 Refill(s), given to patient tramadol No 50 mg = 1 Jaylan elvin hydrochlori 1-08 tab, PO, l de 50 MG 15:42: Q6H, Pain, Her horn Oral Tablet 00 0 [Ultram] Refill(s) methocarbam Yes 750 mg = 1 Memoria ol 750 mg 1-08 tab, PO, l oral tablet 15:42: Q6H, Kiko n 00 Muscle Spasms, # 40 tab, 0 Refill(s), given to patient Docusate Yes 100 mg = 1 Mem oria Sodium 100 1-08 cap, PO, l MG Oral 15:42: BID, # 20 Carly nn Capsule 00 cap, 0 Refill(s), given to patient tramadol No 50 mg = 1 Jaylan elvin hydrochlori 1-08 tab, PO, l de 50 MG 15:42: Q6H, Pain, Her horn Oral Tablet 00 0 [Ultram] Refill(s) Thyroxine No Notes: Memori a 1-08 Take 1 l 15:00: hour Frandy 00 before or 2 hours after meal; Enteral feeds may interefere with the absorption of this medication . (Same as:Synthro id) Thyroxine No Notes: Memori a 1-08 Take 1 l 15:00: hour Frandy 00 before or 2 hours after meal; Enteral feeds may interefere with the absorption of this medication . (Same as:Synthro id) methocarbam No 750 mg = 1 Memoria ol 750 mg 1-08 tab, PO, l oral tablet 14:00: Q6H, Kiko n 00 Muscle Spasms, 0 Refill(s) methocarbam No 750 mg = 1 Memoria ol 750 mg 1-08 tab, PO, l oral tablet 14:00: Q6H, Kiko n 00 Muscle Spasms, 0 Refill(s) 10 ML No Notes: Memoria Cefazolin 1-08 Same as: l 100 MG/ML 03:00: Ancef Orange Prefilled 00 Syringe 10 ML No Notes: Memoria Cefazolin 1-08 Same as: l 100 MG/ML 03:00: Ancef Frandy Prefilled 00 Syringe Potassium No Notes: Memori a Chloride 1-08 (Same as: l 00:51: K-Dur 20) Frandy 00 "Do Not Crush" With food and full glass of water Potassium No Notes: Memori a Chloride 1-08 (Same as: l 00:51: K-Dur 20) Orange 00 "Do Not Crush" With food and full glass of water Docusate No Notes: Memoria 1-07 (Same as: l 23:00: Colace) Orange 00 (Do Not Crush) Docusate No Notes: Memoria 1-07 (Same as: l 23:00: Colace) Frandy 00 (Do Not Crush) dexamethaso No Notes: Jaylan elvin ne 1-07 Give with l 22:30: food. Orange 00 (Same As: Decadron) dexamethaso No Notes: Jaylan elvin ne 1-07 Give with l 22:30: food. Frandy 00 (Same As: Decadron) 10 ML No 1 gm, Memoria Cefazolin - Route: l 100 MG/ML 22:00: IVPB, Drug He rmann Prefilled 00 form: INJ, Syringe Q8H, Dosing Weight 83.1, kg, Start date: 05/22/14 16:00:00, Duration: 1 doses or times, Stop date: 05/22/14 16:00:00 10 ML 0 No 1 gm, Memoria Cefazolin 05-22 Route: l 100 MG/ML 22:00: IVPB, Drug He rmann Prefilled 00 form: INJ, Syringe Q8H, Dosing Weight 83.1, kg, Start date: 05/22/14 16:00:00, Duration: 1 doses or times, Stop date: 05/22/14 16:00:00 Insulin, 2014-0 No Notes: Memoria Aspart, 1- Roll in l Human 19:48: palms of Orange 00 hands gently; Do not shake vigorously . (Same as: NovoLOG) "single patient use only" Stable for 28 days at room temperatur e. Expires in days from ____Date Dextrose No 25 gm, 50 Jaylan elvin 50% Syringe -07 mL, Route: l 19:48: IVP, Drug Frnady 00 Form: INJ, Dosing Weight 83.1, kg, PRN, PRN Blood Glucose Results, Start date: 05/22/14 13:48:00, Duration: 30 day, Stop date: 06/21/14 13:47:00 Glucagon 0 No 1 mg, Memoria 1-07 Route: IM, l 19:48: Drug form: Orange 00 PDR/INJ, PRN, Dosing Weight 83.1, kg, PRN Blood Glucose Results, Start date: 05/22/14 13:48:00, Duration: 30 day, Stop date: 06/21/14 13:47:00 Insulin, 2014-0 No Notes: Memoria Aspart, 1-07 Roll in l Human 19:48: palms of Orange 00 hands gently; Do not shake vigorously . (Same as: NovoLOG) "single patient use only" Stable for 28 days at room temperatur e. Expires in days from ____Date Dextrose No 25 gm, 50 Jaylan elvin 50% Syringe - mL, Route: l 19:48: IVP, Drug Form: INJ, Dosing Weight 83.1, kg, PRN, PRN Blood Glucose Results, Start date: 05/22/14 13:48:00, Duration: 30 day, Stop date: 06/21/14 13:47:00 Glucagon No 1 mg, Memoria 05-22 Route: IM, l 19:48: Drug form: Orange 00 PDR/INJ, PRN, Dosing Weight 83.1, kg, PRN Blood Glucose Results, Start date: 05/22/14 13:48:00, Duration: 30 day, Stop date: 06/21/14 13:47:00 Maalox No Notes: Memoria Advanced 05-22 (aluminum l Regular 19:45: hydroxide- Herm kash Strength magnesium SUSP hyd-simeth icone 200-200-20 mg/5ml 30 ml ud [place]) Bisacodyl No Notes: Memori a 05-22 (Same As: l 19:45: Dulcolax, Correctol) (Do Not Crush) "Do Not Crush" Methocarbam No Notes: Jaylan elvin ol 05-22 (Same l 19:45: as:Robaxin ) Dexamethaso No 4 mg, Memor ia ne 05-22 Route: l 19:45: IVP, ONCE, Dosing Weight 83.1, kg, Start date: 05/22/14 13:45:00, Stop date: 05/22/14 13:45:00 Temazepam No Notes: Memori a 05-22 (Same As: l 19:45: Restoril) Zofran No Notes: Memoria 05-22 (Same as: l 19:45: Zofran) Meperidine No Notes: Memor ia 05-22 (Same as: l 19:45: Demerol) "Use Precaution in Elderly, Seizure disorders, and Renal impairment " Acetaminoph No Notes: Do M emoria en 05-22 not exceed l 19:45: 4 gm/day. Frandy 00 (Same as: Tylenol) Phenergan No Notes: Do Mem oria 05-22 not give l 19:45: IV push. Orange 00 (Same as: Phenergan) Acetaminoph No Notes: Jaylan elvin en 21.7 05-22 Same as l MG/ML / 19:45: Rowland [place] Hydrocodone 00 325-7.5mg Bitartrate Do not 0.5 MG/ML exceed Oral 4gm/day of Solution acetaminop hen. tramadol No Notes: Not Mem oria hydrochlori 05-22 to exceed l de 50 MG 19:45: 400mg/day. Her horn Oral Tablet 00 (Same As: [Ultram] Ultram) 1/2NS + KCL No 1,000 mL, M emoria 20mEq/L 05-22 Rate: 75 l 1000ml 19:45: ml/hr, Frandy (Premix) 00 Infuse 1,000 mL over: 13.3 hr, Route: IV, Dosing Weight 83.1 kg, Total Volume: 1,000, Start date: 05/22/14 13:45:00, Duration: 30 day, Stop date: 06/21/14 13:44:00 Maalox No Notes: Memoria Advanced 05-22 (aluminum l Regular 19:45: hydroxide- Herm kash Strength 00 magnesium SUSP hyd-simeth icone 200-200-20 mg/5ml 30 ml ud [place]) Bisacodyl No Notes: Memori a 05-22 (Same As: l 19:45: Dulcolax, Frandy 00 Correctol) (Do Not Crush) "Do Not Crush" Methocarbam No Notes: Jaylan elvin ol 05-22 (Same l 19:45: as:Robaxin Frandy 00 ) Dexamethaso No 4 mg, Memor ia ne 05-22 Route: l 19:45: IVP, ONCE, Orange 00 Dosing Weight 83.1, kg, Start date: 05/22/14 13:45:00, Stop date: 05/22/14 13:45:00 Temazepam No Notes: Memori a 05-22 (Same As: l 19:45: Restoril) Zofran No Notes: Memoria 05-22 (Same as: l 19:45: Zofran) Meperidine No Notes: Memor ia 05-22 (Same as: l 19:45: Demerol) "Use Precaution in Elderly, Seizure disorders, and Renal impairment " Acetaminoph No Notes: Do M emoria en 05-22 not exceed l 19:45: 4 gm/day. Frandy (Same as: Tylenol) Phenergan No Notes: Do Mem oria 05-22 not give l 19:45: IV push. Frandy (Same as: Phenergan) Acetaminoph No Notes: Jaylan elvin en 21.7 05-22 Same as l MG/ML / 19:45: Rowland Frandy Hydrocodone 00 325-7.5mg Bitartrate Do not 0.5 MG/ML exceed Oral 4gm/day of Solution acetaminop hen. tramadol No Notes: Not Mem oria hydrochlori 05-22 to exceed l de 50 MG 19:45: 400mg/day. Her horn Oral Tablet 00 (Same As: [Ultram] Ultram) 1/2NS + KCL No 1,000 mL, M emoria 20mEq/L 05-22 Rate: 75 l 1000ml 19:45: ml/hr, Frandy (Premix) 00 Infuse 1,000 mL over: 13.3 hr, Route: IV, Dosing Weight 83.1 kg, Total Volume: 1,000, Start date: 05/22/14 13:45:00, Duration: 30 day, Stop date: 06/21/14 13:44:00 Flumazenil No Notes: Memor ia 05-22 (Same as: l 19:41: Romazicon) Naloxone No Notes: Memoria 05-22 Same as l 19:41: Narcan Fentanyl No Notes: Memoria 05-22 (Same as: l 19:41: Sublimaze) Preservat bao free. Hydromorpho 2015-0 No 0.5 mg, Mem oria ne 05-22 Route: l 19:41: IVP, Orange 00 Q5Min, Dosing Weight 83.1, kg, PRN Pain Score 7-10, Start date: 05/22/14 13:41:00, Duration: 4 doses or times, Stop date: Limited # of times Ondansetron 2014-0 No 4 mg, Memor ia 05-22 Route: l 19:41: IVP, ONCE, Orange 00 Dosing Weight 83.1, kg, PRN Nausea & Vomiting, Start date: 05/22/14 13:41:00 Acetaminoph 2014-0 No 1,000 mg, M emoria en 05-22 Route: l 19:41: IVPB, Drug Orange 00 form: INJ, ONCE, Dosing Weight 83.1, kg, PRN Pain Score 1-3, Start date: 05/22/14 13:41:00, Duration: 1 doses or times, Stop date: Limited # of times Flumazenil 2014-0 No Notes: Memor ia 05-22 (Same as: l 19:41: Romazicon) Naloxone 0 No Notes: Memoria 05-22 Same as l 19:41: Narcan Fentanyl 2014-0 No Notes: Memoria 05-22 (Same as: l 19:41: Sublimaze) Orange 00 Preservat bao free. Hydromorpho 2014-0 No 0.5 mg, Mem oria ne 05-22 Route: l 19:41: IVP, Frandy 00 Q5Min, Dosing Weight 83.1, kg, PRN Pain Score 7-10, Start date: 05/22/14 13:41:00, Duration: 4 doses or times, Stop date: Limited # of times Ondansetron 2014-0 No 4 mg, Memor ia 05-22 Route: l 19:41: IVP, ONCE, Frandy 00 Dosing Weight 83.1, kg, PRN Nausea & Vomiting, Start date: 05/22/14 13:41:00 Acetaminoph 2014-0 No 1,000 mg, M emoria en 05-22 Route: l 19:41: IVPB, Drug [place] 00 form: INJ, ONCE, Dosing Weight 83.1, kg, PRN Pain Score 1-3, Start date: 05/22/14 13:41:00, Duration: 1 doses or times, Stop date: Limited # of times Unknown 2013-05 Yes PO, Daily, Jaylan elvin Home 2-30 Refill(s) l Medication 16:24: 0 Vitamin D 2013-05 Yes PO, Daily, Me moria 2-30 0 l 16:24: Refill(s) [place] cetirizine 2013-05 Yes PO, Daily, M emoria hydrochlori 2-30 0 l de 10 MG 16:24: Refill(s) Herm kash Oral Tablet 00 [Zyrtec] Unknown 2013-05 Yes PO, Daily, Jaylan elvin Home 2-30 Refill(s) l Medication 16:24: 0 Vitamin D 2013-05 Yes PO, Daily, Me moria 2-30 0 l 16:24: Refill(s) Frandy cetirizine 2013-05 Yes PO, Daily, M emoria hydrochlori 2-30 0 l de 10 MG 16:24: Refill(s) Herm kash Oral Tablet 00 [Zyrtec] tramadol 2013-05 No PO, 0 Memoria hydrochlori 2-30 Refill(s) l de 50 MG 16:22: Orange Oral Tablet 00 levothyroxi 2013-05 Yes PO, Daily, Memoria ne 88 mcg 2-30 0 l (0.088 mg) 16:22: Refill(s) He rmann oral tablet 00 tramadol 2013-05 No PO, 0 Memoria hydrochlori 2-30 Refill(s) l de 50 MG 16:22: Orange Oral Tablet 00 levothyroxi 2013-05 Yes PO, Daily, Memoria ne 88 mcg 2-30 0 l (0.088 mg) 16:22: Refill(s) He rmann oral tablet 00 Praluent Praluent Yes Gus Inject [address] [place] Glucometer Glucometer Yes Gus one [facility] Vitamin D Vitamin D Yes Gus not [facility] Jardiance Jardiance Yes Gus [address] [facility] Claritin Claritin Yes Gus [address] [facility] blood blood Yes Gus one [facility] glucose glucose [facility] test strip test strip [facility] Albuterol Albuterol Yes Gus [address] [facility] Sulfate Sulfate [facility] needed [facility] True Metrix True Metrix Yes Gus USE [address] [facility] Blood Blood [place] STRIP TO [facility] - Glucose Glucose CHECK Memoria Test Test GLUCOSE l TWICE Outpati DAILY ent Clinics Lancets Lancets Yes Gus one [facility] Super Thin Super Thin [place] k[facility] Aspir-81 Aspir-81 Yes Gus [address] [facility] Folic Acid Folic Acid Yes Gus TAKE [address] [facility] TABLET BY [facility] - MOUTH ONCE [facility] Levothyroxi Levothyroxi Yes Gus [address] [facility] ne Sodium ne Sodium [place] on an [place] [facility] - empty Memoria stomach in l the Outpati morning ent Clinics Citalopram Citalopram Yes Gus take one [facility] Hydrobromid Hydrobromid [place] tablet by [facility] e e mouth once [facility] Alcohol Alcohol Yes Gus as [facility] Prep Pads Prep Pads [facility] directed [facility] Vital Signs Vital Name Observation Time Observation Value Comments Source Respitory Rate 2020-04-28 19:30:00 Memori al [place] Systolic (mm Hg) 2020-04-28 19:30:00 Jaylan rial Frandy Diastolic (mm Hg) 2020-04-28 19:30:00 Mem orial Orange Temperature Oral (F) 2020-04-28 19:30:00 97.7 F [facility]andy Heart Rate 2020-04-28 19:30:00 [facility] Frandy Respitory Rate 2020-04-28 19:00:00 Memori al Frandy Systolic (mm Hg) 2020-04-28 19:00:00 Jaylan rial Frandy Diastolic (mm Hg) 2020-04-28 19:00:00 Mem orial Frandy Respitory Rate 2020-04-28 18:45:00 Memori al Frandy Systolic (mm Hg) 2020-04-28 18:45:00 Jaylan rial Orange Diastolic (mm Hg) 2020-04-28 18:45:00 Mem orial Frandy Weight 2020-04-28 13:52:00 [facility] Frandy BMI Calculated 2020-04-28 13:52:00 Memori al Frandy Height 2020-04-24 15:50:00 153.92 cm [facility] Frandy Weight 2020-04-24 15:50:00 [facility] Frandy BMI Calculated 2020-04-24 15:50:00 Memori al [place] Temperature Oral (F) 2020-04-24 15:50:00 98.0 F [facility] Frandy Heart Rate 2020-04-24 15:50:00 [facility] [place] Respitory Rate 2020-04-24 15:50:00 Memori al Frandy Systolic (mm Hg) 2020-04-24 15:50:00 Jaylan rial Orange Diastolic (mm Hg) 2020-04-24 15:50:00 Mem orial Frandy Height 2020-04-23 16:08:00 157.48 cm [facility] [place] Weight 2020-04-23 16:08:00 [facility] Frandy BMI Calculated 2020-04-23 16:08:00 Memori al [place] Temperature Oral (F) 2019-10-31 21:00:00 97.9 F [facility] [place] Heart Rate 2019-10-31 21:00:00 [facility] [place] Systolic (mm Hg) 2019-10-31 21:00:00 Jaylan rial Orange Diastolic (mm Hg) 2019-10-31 21:00:00 Mem orial [place] Heart Rate 2019-10-31 18:29:00 [facility] Frandy Systolic (mm Hg) 2019-10-31 18:29:00 Jaylan rial Orange Diastolic (mm Hg) 2019-10-31 18:29:00 Mem orial [place] Temperature Oral (F) 2019-10-31 17:00:00 98.1 F [facility] Frandy Heart Rate 2019-10-31 17:00:00 [facility] [place] Systolic (mm Hg) 2019-10-31 17:00:00 Jaylan rial Frandy Diastolic (mm Hg) 2019-10-31 17:00:00 Mem orial Frandy Temperature Oral (F) 2019-10-31 12:00:00 98.3 F [facility] Frandy Respitory Rate 2019-10-31 09:15:00 Memori al Frandy Respitory Rate 2019-10-31 05:05:00 Memori al [place] Height 2019-10-31 02:00:00 154.94 cm [facility] Frandy Weight 2019-10-31 02:00:00 [facility] [place] BMI Calculated 2019-10-31 02:00:00 Memori al [place] Respitory Rate 2019-10-31 01:45:00 Memori al Frandy Height 2019-10-25 17:51:00 154.94 cm [facility] Frandy Weight 2019-10-25 17:51:00 [facility] Frandy BMI Calculated 2019-10-25 17:51:00 Memori al Orange Height 2019-10-25 17:22:00 154.94 cm [facility] [place] Weight 2019-10-25 17:22:00 [facility] [place] BMI Calculated 2019-10-25 17:22:00 Memori al Frandy Systolic (mm Hg) 2017-06-09 18:31:00 Jaylan rial Frandy Diastolic (mm Hg) 2017-06-09 18:31:00 Mem orial Orange Respitory Rate 2017-06-09 18:31:00 Memori al Frandy Heart Rate 2017-06-09 18:31:00 [facility] [place] Temperature Oral (F) 2017-06-09 18:31:00 97.2 F [facility] [place] Temperature Oral (F) 2017-06-09 14:43:00 97.7 F [facility] [place] Heart Rate 2017-06-09 14:43:00 [facility] Frandy Systolic (mm Hg) 2017-06-09 14:43:00 Jaylan rial Frandy Diastolic (mm Hg) 2017-06-09 14:43:00 Mem orial Orange Respitory Rate 2017-06-09 14:43:00 Memori al [place] Heart Rate 2017-06-09 10:00:00 [facility] [place] Systolic (mm Hg) 2017-06-09 10:00:00 Jaylan rial Frandy Diastolic (mm Hg) 2017-06-09 10:00:00 Mem orial Frandy Temperature Oral (F) 2017-06-09 10:00:00 97.9 F [facility] [place] Respitory Rate 2017-06-09 10:00:00 Memori al Frandy Weight 2017-06-08 20:58:00 [facility] Frandy BMI Calculated 2017-06-08 20:58:00 Memori al [place] Height 2017-06-08 20:58:00 154.94 cm [facility] Frandy Weight 2017-06-03 16:22:00 [facility] Orange BMI Calculated 2017-06-03 16:22:00 Memori al [place] Height 2017-06-03 16:22:00 154.94 cm [facility] [place] Height 2017-06-01 19:29:00 154.94 cm [facility] Frandy Weight 2017-06-01 19:29:00 [facility] [place] BMI Calculated 2017-06-01 19:29:00 Memori al Frandy Systolic (mm Hg) 2014-05-23 13:45:00 Jaylan rial Orange Respitory Rate 2014-05-23 13:45:00 Memori al Orange Diastolic (mm Hg) 2014-05-23 13:45:00 Mem orial Frandy Temperature Oral (F) 2014-05-23 13:45:00 97.5 F [facility] Frandy Heart Rate 2014-05-23 13:45:00 [facility] [place] Systolic (mm Hg) 2014-05-23 10:00:00 Jaylan rial Orange Diastolic (mm Hg) 2014-05-23 10:00:00 Mem orial Orange Heart Rate 2014-05-23 10:00:00 [facility] [place] Respitory Rate 2014-05-23 10:00:00 Memori al Orange Temperature Oral (F) 2014-05-23 10:00:00 98.0 F [facility] Frandy Temperature Oral (F) 2014-05-23 06:00:00 98.0 F [facility] Frandy Systolic (mm Hg) 2014-05-23 06:00:00 Jaylan rial Orange Respitory Rate 2014-05-23 06:00:00 Memori al Frandy Heart Rate 2014-05-23 06:00:00 [facility] [place] Diastolic (mm Hg) 2014-05-23 06:00:00 Mem orial Frandy BMI Calculated 2014-05-14 16:50:00 Memori al Frandy Weight 2014-05-14 16:50:00 [facility] Frandy Height 2014-05-14 16:50:00 157.48 cm [facility] [place] Weight 2014-05-14 16:30:00 [facility] Frandy Height 2014-05-14 16:30:00 157.48 cm [facility] Frandy BMI Calculated 2014-05-14 16:30:00 Memori al Orange Diastolic (mm Hg) 2014-04-22 18:30:00 Mem orial Orange Respitory Rate 2014-04-22 18:30:00 Memori al Frandy Systolic (mm Hg) 2014-04-22 18:30:00 Jaylan rial Orange Systolic (mm Hg) 2014-04-22 18:00:00 Jaylan rial Orange Respitory Rate 2014-04-22 18:00:00 Memori al Orange Diastolic (mm Hg) 2014-04-22 18:00:00 Mem orial Orange Systolic (mm Hg) 2014-04-22 17:45:00 Jaylan rial Orange Diastolic (mm Hg) 2014-04-22 17:45:00 Mem orial Orange Respitory Rate 2014-04-22 17:45:00 Memori al Frandy Heart Rate 2014-04-22 16:23:00 [facility] Procedures Procedure Date / Time Performing Clinician Source Performed Procedure<sup>7</sup> [facility] ermann Carpal tunnel [facility] [place] release<sup>1</sup> [facility]<sup[facility]</sup> Cervical spinal fusion by Memori al [place] anterior technique [facility] Elbow joint [facility] [place] operations<sup>3</sup> Foot [facility] [place] fasciectomy<sup>4</sup> Foot joint [facility] [place] operations<sup>5</sup> [facility]ste[facility] Knee joint [facility] [place] operation<sup>6</sup> Laminectomy [facility] Christine fundoplication [facility] ermann Plantar fasciotomy [facility] kash Shoulder joint [facility] [place] operations<sup>7</sup> Plan of Care Planned Activity Planned Date Details Comments Source Future Scheduled 2020-01-15 INFLUENZA VACCINE (#1) [facility]00 [code = INFLUENZA Medical Ce nter VACCINE (#1)] Future Scheduled 2019-12-15 INFLUENZA VACCINE [place] [facility] 00:00:00 [code = INFLUENZA VACCINE] Future Scheduled 2015-02-[address] [facility] 00:00:00 WELLNESS (YEAR 2 or Medical Center FIRST YEAR if no IPPE) [code = MEDICARE ANNUAL WELLNESS (YEAR 2 or FIRST YEAR if no IPPE)] Future Scheduled 2006 BREAST CANCER [facility] Test 00:00:00 SCREENING [code = BREAST CANCER SCREENING] Future Scheduled 2006 COLONOSCOPY SCREENING [place] [facility] 00:00:00 [code = COLONOSCOPY SCREENING] Future Scheduled 2006 SHINGLES VACCINES (#1) [place] [facility] 00:00:00 [code = SHINGLES VACCINES (#1)] Future Scheduled [address] [facility] 00:[facility]00 (procedure) [code = Medical Center 32279128] Future Scheduled 1977 Screening for [facility]odist Test 00:00:00 malignant neoplasm of cervix (procedure) [code = 216193260] Future Scheduled [address] [facility] - Test 00:00:00 [facility] cervix (procedure) [code = 490862988] Future Scheduled 1972 COVID-19 VACCINE (1 of [place] [facility] 00:00:00 2) [code = COVID-19 VACCINE (1 of 2)] Future Scheduled 1966 DIABETES: RETINAL EYE [place] [facility] 00:00:00 EXAM [code = DIABETES: RETINAL EYE EXAM] Future Scheduled 1966 DIABETIC FOOT EXAM [place] [facility] Test 00:00:00 [code = DIABETIC FOOT EXAM] Future Scheduled 1966 URINE MICROALBUMIN [place] [facility] 00:00:00 [code = URINE MICROALBUMIN] Future Scheduled [address] [facility] Test 00:00:00 0-64 YRS (1 of 3 - Medical C enter PCV13) [code = PNEUMOCOCCAL VACCINE 0-64 YRS (1 of 3 - PCV13)] Future Scheduled [address] [facility] - Test 00:00:00 malignant [facility] breast (procedure) [code = 251190140] Future Scheduled [address] [facility] - Test 00:00:00 [facility] colon (procedure) [code = 006391076] Encounters Start End Encounter Admission Attending Care Care Encounter Source Date/Time Date/Time Type Type Clinicians Facility Department ID 2019-10-24 Inpatient MHSE [facility]SE [id number] 08:08:22 [facility] 2019-09-03 Outpatient [facility] [id number] [facility] 10:11:05 2020-05-27 2020-05-27 Outpatient [facility] [id number] [facility] 2020-05-21 2020-05-21 Refill Matt [facility] [id number] 00:00:00 00:00:00 Rika Tim [id number] Rad [id number] Professio [id number] nal 220 Building 2020-04-28 2020-04-28 Outpatient Jose Enrique [facility] [id number] 07:36:00 16:19:00 Chon Viramontes 09 2020-04-28 2020-04-28 Outpatient Quispe, [facility] [id number] 07:36:00 16:19:00 Chon Viramontes 09 2020-04-28 2020-04-28 Outpatient Jose Enrique, [facility] [id number] 09:30:00 09:30:00 Chon Viramontes 09 2020-04-28 2020-04-28 Outpatient Quispe, [facility] [id number] 09:30:00 09:30:00 Chon Viramontes 09 2020-04-28 2020-04-28 Outpatient [facility] [id number] 07:36:00 07:36:00 [facility] 2020-04-21 2020-04-21 [facility] [id number] 14:20:10 15:10:19 Visit Addy Tim [id number] [place] [id number] Professio [id number] nal 059 [facility] 2020-04-21 2020-04-21 Orders Doctor ARMANDO [id number] 00:00:00 00:00:00 Only Unassigned, REJI 350.1.13.10 [facility] [id number] 2020-04-15 2020-04-15 Outpatient [facility] [id number] [facility] 2020-02-20 2020-02-20 [id number] 2020-02-11 2020-02-11 [facility] [id number] [facility] 2020-01-29 2020-01-29 [facility] [id number] 15:03:00 15:03:00 [facility]: [place] - [employer] [facility] Medicine Outpati ent Clinics 2020-01-15 2020-01-15 [facility] [id number] 09:30:00 09:30:00 t [place] [place] [facility] - [employer] [facility] Outpat[facility] Clinics 2020-01-07 2020-01-07 Outpatient Thosani, [facility] [id number] 09:26:00 23:59:00 Kwadwo Nicolle Corwin bhai 2020-01-07 2020-01-07 Outpatient Thosani, [facility] [id number] 09:26:00 23:59:00 Kwadwo Nicolle Corwin bhai 2020-01-01 2020-01-01 [facility] [id number] [address] 12:07:00 12:07:00 t [place] [facility] - [employer] [facility] Medicine Outpat[facility] ent Clinics 2019-12-07 2019-12-07 [facility] [id number] 14:05:00 14:05:00 [facility]: [place] - [employer] [facility] Medicine Outpati ent Clinics 2019-11-27 2019-11-27 [facility] [id number] 14:03:00 14:03:00 [facility]: [place] - [employer] [facility] Medicine Outpati ent Clinics 2019-11-27 2019-11-27 [facility] [id number] 13:59:00 13:59:00 [facility]: [place] - Drive [facility] Outpat[facility] ent Clinics 2019-11-24 2019-11-24 [facility] [id number] 10:12:00 10:12:00 [place] [employer] [facility] Outpat[facility] Clinics 2019-11-20 2019-11-20 [facility] [id number] 17:23:00 17:23:00 [place] [employer] [facility] Outpat[facility] ent Clinics 2019-11-20 2019-11-20 [facility] [id number] 14:15:00 14:15:00 [place] [employer] [facility] Outpat[facility] ent Clinics 2019-10-30 2019-10-31 Outpatient Jose Enrique [facility] [id number] 05:24:00 17:23:00 Chon Viramontes 07 2019-10-30 2019-10-31 Outpatient Jose Enrique [facility] [id number] 05:24:00 17:23:00 Chon Viramontes 07 2019-10-29 2019-10-29 Outpatient Thosani, [facility] [id number] 09:22:00 23:59:00 Kwadwo 05 [facility] 2019-10-29 2019-10-29 Outpatient Thosani, [facility] [id number] 09:22:00 23:59:00 Kwadwo Siria [facility] 2019 2019 Outpatient Thosani, [facility] [id number] 06:47:00 14:00:00 Kwadwo Priscilla [facility] 2019 2019 Outpatient Thosani, [facility] [id number] 06:47:00 14:00:00 Kwadwo Priscilla [facility] 2019 2019 Outpatient [facility] [id number] [facility] 06:47:00 06:47:00 2019-10-05 2019-10-05 [facility] [id number] 09:00:00 09:00:00 [facility] [place] [employer] [facility] Outpat[facility] Clinics 2019-10-05 2019-10-05 [facility] [id number] 09:00:00 09:00:00 t [employer] [facility] Out[facility] Clinics 2019-08-23 2019-08-23 [facility] [id number] 11:24:00 11:24:00 [employer] [facility] Clinics 2019-08-02 2019-08-02 Outpatient Loaiza, [id number] 11:29:11 23:59:59 Charles 8 2019-08-02 2019-08-02 Outpatient Loaiza, [id number] 11:29:11 23:59:59 Charles 8 2019-08-01 2019-08-01 [facility] [id number] 09:45:00 09:45:00 [employer] [facility] 2019-06-28 2019-06-28 Outpatient Jose Enrique M[facility]IP MHOIP [id number] 06:22:00 23:59:00 Chon Viramontes 00 2019-06-28 2019-06-28 Outpatient Jose Enrique M[facility] MHOIP [id number] 06:22:00 23:59:00 Chon Viramontes 00 2019-05-07 2019-05-07 [facility] [id number] 09:35:00 09:35:00 [employer] [facility] Outpat[facility] ent Clinics 2019-03-30 2019-03-30 [facility] [id number] 09:45:00 09:45:00 t [employer] [facility] Outpat[facility] Clinics 2019-02-13 2019-02-13 Outpatient MÓNICA HairSCHNEPTALI MHMISCHER [id number] 13:30:00 13:30:00 Horace 00 Partha 2019-02-13 2019-02-13 Outpatient MÓNICA HairSCHER MHMISCHER [id number] 13:30:00 13:30:00 Horace 00 Partha 2019-01-18 2019-01-18 [facility] [id number] 08:39:00 08:39:00 [place] [address] [address] [place] - Drive [facility] Medicine Outpati ent Clinics 2019-01-17 2019-01-17 [facility] [id number] 09:33:00 09:33:00 [place] [address] [place] [address] [place] [facility] - Drive [facility] Outpat[facility] ent Clinics 2018-12-29 2018-12-29 [facility] [id number] 13:30:00 13:30:00 [place] [address] [place] [facility] - Drive [facility] 2018-12-29 2018-12-29 [facility] [id number] [facility] 09:30:00 09:30:[address] [place] [address] [place] [facility] - Drive [facility] Clin[facility] 2018-12-19 2018-12-19 [facility] [id number] [facility] 08:15:00 08:15:00 [place] [address] [facility] - Drive [facility] Clin[facility] 2018-11-28 2018-11-28 [facility] [facility] [id number] [facility] 09:15:00 09:15:[address] [place] [place] [address] [place] - Drive [facility] Medicine Outpati ent Clinics 2018-08-18 2018-08-18 [facility] [id number] 09:45:00 09:45:00 [place] [employer] s - Drive [facility] Medicine Outpati ent Clinics 2018-07-31 2018-07-31 [facility] [id number] [address] 11:22:00 11:22:00 [facility] ent Clinics 2018-07-26 2018-07-26 [facility] [id number] 08:15:00 08:15:00 [place] [address] [place] - Drive [facility] Medicine Outpati ent Clinics 2018-07-19 2018-07-19 [facility] [id number] 09:52:00 09:52:00 [address] [place] [address] [place] - Drive [facility] Medicine Outpati ent Clinics 2018-07-17 2018-07-17 [facility] [id number] 09:30:00 09:30:00 [place] [employer] [place] - Drive [facility] ent Clinics 2018-07-14 2018-07-14 [facility] [id number] 10:49:00 10:49:00 [facility] ent Clinics 2018-07-11 2018-07-11 [facility] [id number] 14:30:00 14:30:00 [facility] ent Clinics 2018-07-05 2018-07-05 [facility] [id number] [address] 20:40:00 20:40:00 [facility] ent Clinics 2018-07-05 2018-07-05 [facility] [id number] 10:02:00 10:02:00 [facility] ent Clinics 2018-07-04 2018-07-04 [facility] [id number] 08:00:00 08:00:00 [facility] Clinics 2018-06-26 2018-06-26 [facility] [id number] 11:30:00 11:30:00 [place] - Drive [facility] ent Clinics 2018-06-22 2018-06-22 [facility] [id number] 11:03:00 11:03:00 [place] [employer] s - Drive [facility] ent Clinics 2018-06-13 2018-06-13 [facility] [id number] 13:15:00 13:15:00 [place] - Drive [facility] ent Clinics 2018-02-09 2018-02-09 [facility] [id number] 10:03:00 10:03:00 [place] [address] [place] - Drive [facility] Medicine Outpati ent Clinics 2018-02-07 2018-02-07 [facility] [id number] [facility] 09:00:00 09:00:00 [place] [address] [place] - Drive [facility] l Medicine Outpati ent Clinics 2017-12-23 2017-12-23 [facility] [id number] 10:00:00 10:00:00 [place] [address] [place] - Drive [facility] Medicine l Medicine Outpati ent Clinics 2017-09-20 2017-09-20 [facility] [id number] 09:00:00 09:00:00 [place] [address] [place] - Drive [facility] Medicine Medicine Outpati ent Clinics 2017-06-08 2017-06-09 Outpatient [facility], [facility] [id number] 05:41:00 13:59:00 Sumiko 02 [facility] 2017-06-08 2017-06-09 Outpatient Gonzalo, [facility] [id number] 05:41:00 13:59:00 Sumiko 02 Lesa 2014-05-22 2014-05-23 Outpatient Bindal, [facility] [id number] 05:40:00 14:08:00 Ananda K 2014-05-22 2014-05-23 Outpatient [facility], [facility] [id number] 05:40:00 14:08:00 Ananda Chang 2014-04-22 2014-04-22 Outpatient [facility], [facility] [id number] 09:50:00 13:05:00 Ananda K 2014-04-22 2014-04-22 Outpatient [place], [facility] [id number] 09:50:00 13:05:00 Ananda Chang Results Test Description Test Time Test Comments Results Result Comments Source CHEM PANEL 2020-04-28 129 [facility] 18:[facility]00 CHEM PANEL 2020-04-28 10 [facility] 18:24:00 CHEM PANEL 2020-04-28 0.81 [facility] 18:24:00 CHEM PANEL 2020-04-28 139 [facility] 18:24:00 CHEM PANEL 2020-04-28 4.5 [facility] 18:24:00 CHEM PANEL 2020-04-28 103 [facility] 18:24:00 CHEM PANEL 2020-04-28 28 [facility] 18:24:00 CHEM PANEL 2020-04-28 8.8 [facility] 18:24:00 CHEM PANEL 2020-04-28 12.5 [facility] 18:24:00 CHEM PANEL 2020-04-28 78 [facility] 18:24:00 HEMATOLOGY 2020-04-28 30.3 [facility] 18:24:00 HEMATOLOGY 2020-04-28 58.8 [facility] 18:24:00 HEMATOLOGY 2020-04-28 6.7 [facility] 18:24:00 HEMATOLOGY 2020-04-28 3.3 [facility] 18:24:00 HEMATOLOGY 2020-04-28 0.9 [facility] 18:24:00 HEMATOLOGY 2020-04-28 3.0 [facility] 18:24:00 HEMATOLOGY 2020-04-28 5.7 [facility] 18:24:00 HEMATOLOGY 2020-04-28 0.7 [facility] 18:24:00 HEMATOLOGY 2020-04-28 0.3 [facility] 18:24:00 HEMATOLOGY 2020-04-28 0.1 [facility] 18:24:00 HEMATOLOGY 2020-04-28 9.7 [facility] 18:24:00 HEMATOLOGY 2020-04-28 4.49 [facility] 18:24:00 HEMATOLOGY 2020-04-28 13.7 [facility] 18:24:00 HEMATOLOGY 2020-04-28 41.5 [facility] 18:24:00 HEMATOLOGY 2020-04-28 92.3 [facility] 18:24:00 HEMATOLOGY 2020-04-28 18:24:00 Test Item Value Reference Range Interpretation Comme nts MCH (test code = MCH) 30.4 pg 27.0-31.0 [facility] NqvheqoNFLXMFSUVJ8374-95-27 18:24:0033.0[facility]annHEMATOLOGY 2020-04-28 18:24:0014.1[facility] TdiudrxKRBZSUVFXU2087-99-85 18:24:64258Kencefcs EdpnxtwDPNAREPPSF5274-39-20 18:24:007.0[facility] HermannCHEM SOOGQ5555-62-04 18:24:71294Upllguvm HermannCHEM ZDXRT6573-96-49 18:24:0010[facility]annCHEM PHGIQ3596-45-66 18:24:000.81[facility]annCHEM NRQDN7223-17-37 18:24:78872 [facility]annCHEM IOBOW5086-31-66 18:24:004.5[facility] HermannCHEM PANEL 2020-04-28 18:24:15631Fjcozads HermannCHEM AXKQB4395-89-79 18:24:0028[facility]annCHEM QWVZX6034-95-75 18:24:008.8[facility] HermannCHEM KCDJY9959-82-27 18:24:0012.5[facility]annCHEM HZTZB9296-62-29 18:24:0078[facility] YWTBEGPCCP1025-27-58 18:24:0030.3[facility] YaudoorWZGSDFZGFP0096-95-52 18:24:00 58.8[facility] JtvdselHFGXQREXPE3902-69-82 18:24:006.7[facility] HermannHEMATOLOGY 2020-04-28 18:24:003.3[facility] ZlhteyeVFPADWFWKH5066-07-02 18:24:000.9[facility] AaleupuAMQXXMYDAX1813-31-99 18:24:003.0[facility] RsgpoppRYLKPWJKUX0735-24-76 18:24:005.7[facility] PxxfyodRCNGXWHNIC4880-97-31 18:24:000.7[facility] UUIKJQDAWP0825-29-40 18:24:000.3[facility] FjytxkpUCOWRXPIDW2558-52-12 18:24:000.1 [facility] IxhevuhWVKXMDFHZF2585-52-35 18:24:009.7[facility] HermannHEMATOLOGY 2020-04-28 18:24:004.49[facility] LgxhqrrDZNGIXCUWH3530-81-92 18:24:0013.7[facility] VhsfjehHPBFFCHSYZ7713-93-38 18:24:0041.5[facility] JyanphwPBTGCIJLCV9272-40-67 18:24:0092.3[facility] VhhtknmIIOUMNQWUB4777-13-31 18:24:00 Test Item Value Reference Range Interpretation Comments MCH (test code = MCH) 30.4 pg 27.0-31.0 [facility] TfmudqsFFRCDDUYQC8277-86-30 18:24:0033.0[facility] HermannHEMATOLOGY 2020-04-28 18:24:0014.1[facility] CijapaqKBASTOYTNW7004-51-08 18:24:90600Mpmtbqjz RijlkywXWHTEUROVK8567-12-94 18:24:007.0[facility] DamwpnpQCZDPUMJHR7263-39-51 17:19:00Not Detected (04/24/20 11:19 AM)[facility] DcjcoupCAARNDXDIN1485-85-37 17:19:00Not Detected (04/24/20 11:19 AM)[facility]annBLOOD BANK RESULTS 2020-04-24 16:08:00Negative (04/24/20 10:08 AM)[facility]annCHEM PANEL 2020-04-24 16:08:23206Lhawenwc HermannCHEM MLSKB0137-20-84 16:08:0011[facility] HermannCHEM GVJQT7069-07-69 16:08:000.80[facility] HermannCHEM AWNSD0937-66-49 16:08:03765Vpbnzslj HermannCHEM IKYTM4274-67-53 16:08:004.2[facility] HermannCHEM XCLEJ6905-38-33 16:08:09528Hdqejdfr HermannCHEM CXRDP9158-50-00 16:08:0031 [facility]annCHEM XSMKL0773-89-26 16:08:008.8[facility] HermannCHEM PANEL 2020-04-24 16:08:0012.2[facility] HermannCHEM ZUNCK2049-41-35 16:08:0079[facility] HermannCHEM PGSCE6556-97-98 16:08:0029[facility] HermannCHEM JWCHQ2345-88-78 16:08:003.5[facility] AvpxhouCNOIMDLCQM2183-86-04 16:08:006.6[facility] FAOWFSHZWM0631-36-64 16:08:004.60[facility] EokgbleKPLOZKSYKD9565-53-20 16:08:00 13.9[facility] QrfrffzDAXZJKLYHY0912-41-60 16:08:0042.2[facility] HermannHEMATOLOGY 2020-04-24 16:08:0091.7[facility] IpmwdblBOISZIXENY0372-05-82 16:08:00 Test Item Value Reference Range Interpretation Comments MCH (test code = MCH) 30.2 pg 27.0-31.0 [facility] JypufixCIJQGKYQPS6310-03-11 16:08:0032.9[facility] HermannHEMATOLOGY 2020-04-24 16:08:0014.5[facility] ZoyapypKQQKEXHIOE5555-36-88 16:08:19825Hprzbcle RmzqzpvJAHNDOYOYU8444-29-88 16:08:007.4[facility] RebmfmoGBXWZEBVGN7665-01-87 16:08:00 Test Item Value Reference Range Interpretation Comments PROTIME (test code = PROTIME) 12.5 s 12.0-14.7 [facility] ZlyxfgzVXQBRYAVHE2471-77-32 16:08:00 Test Item Value Reference Range Interpretation Comments INR (test code = INR) 0.93 1 0.85-1.17 [facility] GnugjvbATQLNHJEKG3787-56-24 16:08:00 Test Item Value Reference Range Interpretation Comments aPTT (test code = aPTT) 31.2 s 22.9-35.8 [facility] SdeoodaGDTGBNVQGU3819-62-35 16:08:0056.2[facility] HermannHEMATOLOGY 2020-04-24 16:08:0034.8[facility] YupsnwjTRYQNZIIPZ5706-03-97 16:08:005.9[facility] YuhqiguDXHOJSJCEJ3034-27-58 16:08:002.6[facility] NefzhvzNKMGPZGMRK4735-30-51 16:08:000.5[facility] CuwdnlrAXWNKRPMMF7520-54-79 16:08:003.7[facility] TJZIVMLFJK9923-57-38 16:08:002.3[facility] QzllgrhAKKFDDRGTF9439-07-69 16:08:000.4 [facility] YdmkyccSLATJXIBMB1857-95-50 16:08:000.2[facility] HermannSPECIAL CHJYXDIIX1711-80-14 16:08:006.6[facility]annURINE AND SBXXQ2229-01-59 16:08:00Yellow *NA*(04/24/20 10:08 AM)[facility] IEMLJ3872-70-25 16:08:00Clear (04/24/20 10:08 AM)[facility] XNLKJ6862-27-87 16:08:00<=1.005 *NA*(04/24/20 10:08 AM)[facility] STOOL 2020-04-24 16:08:00 Test Item Value Reference Range Interpretation Comments UA pH (test code = UA pH) 6.0 1 5.0-8.0 [facility] AND LCURG0662-98-40 16:08:00Negative (04/24/20 10:08 AM) [facility] EKOKC6715-06-32 16:08:00Negative *NA*(04/24/20 10:08 AM)[facility] LCSGC7478-00-27 16:08:00Negative *NA*(04/24/20 10:08 AM)[facility] YKMVI2090-32-80 16:08:00Negative (04/24/20 10:08 AM)[facility] YKTEW5813-21-40 16:08:000.2[facility] URINE AND NIWUP6283-78-80 16:08:00Negative (04/24/20 10:08 AM)[facility]INE AND DGOPV2660-14-18 16:08:00Negative (04/24/20 10:08 AM)[facility] URINE AND VGYEA2718-80-35 16:08:00Performed (04/24/20 10:08 AM)[facility] WNKGJVG4919-11-24 16:08:00Negative (04/24/20 10:08 AM)[facility] HermannCHEM WUKVP1388-92-56 16:08:01799Lsowumtw HermannCHEM ULLKY4699-36-28 16:08:0011[facility] HermannCHEM VWATV3664-76-13 16:08:000.80[facility] HermannCHEM ZKTZV7883-00-63 16:08:72183Vnqevxrp HermannCHEM TEOHR3500-84-85 16:08:004.2 [facility] HermannCHEM EIOOE4318-07-53 16:08:84215Ajooqjsw HermannCHEM PANEL 2020-04-24 16:08:0031[facility] HermannCHEM YNWDU5829-04-57 16:08:008.8[facility] HermannCHEM CVQHB7332-69-54 16:08:0012.2[facility] HermannCHEM XNEUJ7559-56-68 16:08:0079[facility] HermannCHEM BNDRN4042-31-61 16:08:0029[facility] HermannCHEM XLQTR5679-86-94 16:08:003.5[facility] XzmhwzqDTHFCMZLYU6579-44-90 16:08:006.6 [facility] FemmirhXVWYHORWNC7794-28-71 16:08:004.60[facility] HermannHEMATOLOGY 2020-04-24 16:08:0013.9[facility] PjowrxtHBUTRENGSF5685-52-62 16:08:0042.2[facility] RxkvkjpGIQRWMMHMD2463-60-94 16:08:0091.7[facility] RwfhbuwTYBITRUMPY9384-80-29 16:08:00 Test Item Value Reference Range Interpretation Comments MCH (test code = MCH) 30.2 pg 27.0-31.0 [facility]klwnwjVIYSUWVOJA5472-53-93 16:08:0032.9[facility] HermannHEMATOLOGY 2020-04-24 16:08:0014.5[facility] LrphnbvDVAMAJTGMH4276-62-55 16:08:94733Enxahuaq AecxaunRPLTJGBMVT9834-56-27 16:08:007.4[facility] HzaibnxVZNMFYEYZP9308-76-48 16:08:00 Test Item Value Reference Range Interpretation Comments PROTIME (test code = PROTIME) 12.5 s 12.0-14.7 [facility] KmkyaybABWKHCTBJX4947-75-46 16:08:00 Test Item Value Reference Range Interpretation Comments INR (test code = INR) 0.93 1 0.85-1.17 [facility]OhhutiuPFMGGWQWZE6915-12-49 16:08:00 Test Item Value Reference Range Interpretation Comments aPTT (test code = aPTT) 31.2 s 22.9-35.8 [facility] UjpapsiEONVWQVHHM1559-53-95 16:08:0056.2[facility] HermannHEMATOLOGY 2020-04-24 16:08:0034.8[facility] HwyzmniOLDVBABLID2464-09-34 16:08:005.9[facility] ZqcawhjUXXECDLZSO5225-14-45 16:08:002.6[facility] JcylztuAKQCNJGBQB1667-34-85 16:08:000.5[facility] LnbzcnbZVNYTYZEOT9971-52-00 16:08:003.7[facility] WWVOKKYAUX0373-67-27 16:08:002.3[facility] NjwcbgjGEQCBEWXRU0718-38-82 16:08:000.4 [facility] WtetemkYOPQTIMEOK5548-97-19 16:08:000.2[facility] HermannSPECIAL MXBEPMIXA0907-99-94 16:08:006.6[facility] VKKTB3654-24-85 16:08:00Yellow *NA*(04/24/20 10:08 AM)[facility] NOHKS9879-03-93 16:08:00Clear (04/24/20 10:08 AM)[facility] TSBVX0364-25-49 16:08:00<=1.005 *NA*(04/24/20 10:08 AM)[facility] STOOL 2020-04-24 16:08:00 Test Item Value Reference Range Interpretation Comments UA pH (test code = UA pH) 6.0 1 5.0-8.0 [facility] XPRMB6311-07-60 16:08:00Negative (04/24/20 10:08 AM) [facility] ZKKQQ2057-57-50 16:08:00Negative *NA*(04/24/20 10:08 AM)[facility] OBAZW5472-23-53 16:08:00Negative *NA*(04/24/20 10:08 AM)[facility] QZFMF3775-47-21 16:08:00Negative (04/24/20 10:08 AM)[facility] EZUYY8222-28-20 16:08:000.2[facility] URINE AND EKSWO1440-77-30 16:08:00Negative (04/24/20 10:08 AM)[facility]INE AND TQAVE2025-09-18 16:08:00Negative (04/24/20 10:08 AM)[facility]INE AND SBYPN0075-80-09 16:08:00Performed (04/24/20 10:08 AM)[facility] CHEM IWPCY1095-57-57 09:07:23651Hacvbmdo HermannCHEM WQIWC7533-14-77 09:07:0011 [facility]annCHEM INKJI3696-03-12 09:07:000.85[facility] HermannCHEM PANEL 2019-10-31 09:07:28036Gcmtkmtl HermannCHEM VAWEG8452-52-60 09:07:004.5[facility] HermannCHEM SFXBL8884-14-46 09:07:19143Bnqamxgn HermannCHEM SUNNT0000-01-52 09:07:0030[facility] HermannCHEM QJRRL9255-70-71 09:07:008.2[facility] HermannCHEM WLZDD9289-09-29 09:07:007.5[facility] HermannCHEM SEPIN3990-76-96 09:07:0073 [facility] YrcfydbPYCLQZIYAL7950-83-24 09:07:0011.0[facility] HermannHEMATOLOGY 2019-10-31 09:07:003.47[facility] RnwyqyjRJKPSCNJDK9563-42-28 09:07:0010.6[facility] GkzxoalLJJBDBKMRH4162-44-67 09:07:0031.7[facility] JpcwmzgTLRKBPXJZE3779-56-95 09:07:0091.3[facility] GkwsukdETBFHGNOVH2788-80-97 09:07:00 Test Item Value Reference Range Interpretation Comments MCH (test code = MCH) 30.6 pg 27.0-31.0 [facility] YmbjrgrZLJWTVMMXS3929-29-96 09:07:0033.6[facility] HermannHEMATOLOGY 2019-10-31 09:07:0013.8[facility] PykmvvtOOUOOQBNGW3030-72-44 09:07:19850Twmrlthm AlwjxfbXOJZATTJPF8070-21-42 09:07:006.8[facility] NhmmxmaPXHRMRIEBV7806-57-56 09:07:0083.6[facility] BiehzcdRZMHQQPKHZ3881-28-90 09:07:0011.1[facility] ZGXKHHTCGA9126-55-60 09:07:005.3[facility] MezkarqJLQREIKUYU0529-59-85 09:07:009.2 [facility] SabjlgeIZASACKQLX8040-35-95 09:07:001.2[facility] HermannHEMATOLOGY 2019-10-31 09:07:000.6[facility] HermannCHEM VAQKF6964-53-27 09:07:13464Tuhfhtuf HermannCHEM VLOQB1956 09:07:0011[facility] HermannCHEM UWYCE1451-85-29 09:07:000.85[facility] HermannCHEM MCKLW5623-32-26 09:07:88524Kitrxgwz HermannCHEM DNHCK7548-49-25 09:07:004.5[facility] HermannCHEM JIYDB2367-99-04 09:07:66816 [facility]annCHEM NDBEB3443-54-39 09:07:0030[facility] HermannCHEM PANEL 2019-10-31 09:07:008.2[facility] HermannCHEM CIYKU1008-25-45 09:07:007.5[facility] HermannCHEM PKARR7958-60-38 09:07:0073[facility] PvglwdyOXYIZJSMYZ5283-01-98 09:07:0011.0[facility] WwbzakrFZIAPRSRJR2819-17-27 09:07:003.47[facility] MHVCXMPZOV2507-95-18 09:07:0010.6[facility] MfndpkiMOLGUMVALC2869-92-09 09:07:00 31.7[facility] DcwinhyANUNGAAFYP3760-10-25 09:07:0091.3[facility] HermannHEMATOLOGY 2019-10-31 09:07:00 Test Item Value Reference Range Interpretation Comments MCH (test code = MCH) 30.6 pg 27.0-31.0 [facility] BtxjcbzFEHABASOXS8822-21-80 09:07:0033.6[facility] HermannHEMATOLOGY 2019-10-31 09:07:0013.8[facility] KkjeoplQBIIKUDYHQ0057-70-97 09:07:33599Czkwhrsd JbawbcbISAQXSEVEU8779-56-32 09:07:006.8[facility] LgkcvouEOFEGWLOOT1871-69-86 09:07:0083.6[facility] PrwdiaeGFIDVAHPNF0799-82-50 09:07:0011.1[facility] BCOZQVZHGB6993-59-00 09:07:005.3[facility] VsvkqsaEJNIASGBZH1308-91-24 09:07:009.2 [facility] AkmkxdeBZHZASVJQV0862-90-60 09:07:001.2[facility] HermannHEMATOLOGY 2019-10-31 09:07:000.6[facility] KnmlmhrNEVQFEFCUR4636-30-38 21:10:0013.0[facility] KuevimhBSWEZZDZGG8008-38-52 21:10:003.42[facility] TcdwvwyIFFRWXNRZW5373-27-58 21:10:0010.3[facility] TjjnhdeOFWADSNYKR1748-57-64 21:10:0031.9[facility] IOJXZDHIVB9691-96-30 21:10:0093.2[facility] LxiudjnEECQCQHQFR0352-21-88 21:10:00 Test Item Value Reference Range Interpretation Comments MCH (test code = MCH) 30.2 pg 27.0-31.0 [facility] KoelndcFRVHWJVCIA9275-00-57 21:10:0032.4[facility] HermannHEMATOLOGY 2019-10-30 21:10:0013.9[facility] MfauqgqGXUYPHGRUT9258-88-32 21:10:91927Ophwmsed WvrcotwXWFDFZRLWM2604-04-20 21:10:006.9[facility] WmlcnvqOVLMOVBJBK6552-16-37 21:10:0013.0[facility] TpbbsvdPKQUPYITHD7624-79-82 21:10:003.42[facility] IYFIEKMAUY2571-88-10 21:10:0010.3[facility] AzobrfmPLCHYIGBOW3696-67-84 21:10:00 31.9[facility] YjghwzbMOMIIBAIMJ3053-18-61 21:10:0093.2[facility] HermannHEMATOLOGY 2019-10-30 21:10:00 Test Item Value Reference Range Interpretation Comments MCH (test code = MCH) 30.2 pg 27.0-31.0 [facility] UriwkwiKGDZISYFLY0238-44-91 21:10:0032.4[facility] HermannHEMATOLOGY 2019-10-30 21:10:0013.9[facility] GendifnMFSINUIMNU1190-45-42 21:10:77900Kzceiovs KjakmfvIIEMUYKTTK2327-59-07 21:10:006.9[facility] HermannBLOOD BANK RESULTS 2019-10-30 19:16:00Product available (10/30/19 2:16 PM)[facility]annBL[facility]OD BANK XIRBIFT2838-28-08 19:16:00Product available (10/30/19 2:16 PM)[facility] BACTERIAL - JDLAYXUH5296-88-69 18:12:00Negative (10/25/19 1:12 PM)[facility]annBL[facility]OD BANK DWUPKNX0610-67-99 18:12:00Negative (10/25/19 1:12 PM)[facility] HermannCHEM BLRSP5161-37-11 18:12:0092[facility] HermannCHEM UFFZM4507-93-69 18:12:0012[facility] HermannCHEM CEJMG8170-93-86 18:12:000.83[facility] HermannCHEM KHWZR1334-47-23 18:12:05979Ceoqepoe HermannCHEM YZQYJ8431-49-82 18:12:004.3 [facility] HermannCHEM CGAGS3329-34-66 18:12:24085Mdfdibov HermannCHEM PANEL 2019-10-25 18:12:0029[facility] HermannCHEM VINTX8173-94-06 18:12:009.2[facility] HermannCHEM FXFJB0264-79-68 18:12:0010.3[facility] HermannCHEM XRIAM3823-50-95 18:12:0075[facility] OdameiwEKMKOXMEKE4620-81-24 18:12:0047.8[facility] HDOGOOZCVM7055-87-93 18:12:0045.1[facility] JukhmudWJFBFFCFQL4827-08-70 18:12:00 5.5[facility] EpyzgkoLCVMJITGMW4910-34-95 18:12:001.3[facility] HermannHEMATOLOGY 2019-10-25 18:12:000.3[facility] SkodiwpPMNICMRTOT9056-94-34 18:12:003.5[facility] SiwnoygSQSUXEZYIU5027-07-01 18:12:003.3[facility] UbvslkaNPSJJMHZRG3610-23-61 18:12:000.4[facility] JilpmjyNEOULORQYS9884-17-07 18:12:000.1[facility] HXFVGNMJHY2577-89-68 18:12:007.4[facility] JgjofwnMNZSCVNAGD9415-74-21 18:12:00 5.13[facility] KmmkyaeZWPVTWCYII2672-49-75 18:12:0015.5[facility]annHEMATOLOGY 2019-10-25 18:12:0047.6[facility] GzoimcfSUGWBGPVFC9958-98-17 18:12:0092.9[facility] UjuhhyxNRYLKAKOEO2347-20-28 18:12:00 Test Item Value Reference Range Interpretation Comments MCH (test code = MCH) 30.2 pg 27.0-31.0 [facility] HtwzzvtYHIMROZELB8967-49-69 18:12:0032.5[facility]annHEMATOLOGY 2019-10-25 18:12:0013.8[facility] WdydtjfSQEMIFSLAT8407-77-86 18:12:92058Qhalhrzo DfpjvaxFSIZJWNDXQ4798-94-48 18:12:006.9[facility] NniiswfXJJQIBGDPR3821-93-31 18:12:00 Test Item Value Reference Range Interpretation Comments PT (test code = PT) 12.4 s 12.0-14.7 [facility] LaflohxMVKVWYSOGS9510-18-13 18:12:00 Test Item Value Reference Range Interpretation Comments INR (test code = INR) 0.92 1 0.85-1.17 [facility] FpvmbbnMFVXUMGMSY0141-29-91 18:12:00 Test Item Value Reference Range Interpretation Comments PTT (test code = PTT) 30.1 s 22.9-35.8 [facility]annSPECIAL PVRSYOTEL2595-03-95 18:12:007.2[facility]annUR[facility] AND XYTXE5646-76-55 18:12:00Clear (10/25/19 1:12 PM)[facility] STOOL 2019-10-25 18:12:00 Test Item Value Reference Range Interpretation Comments UA Spec Grav (test code = UA Spec 1.025 1 Grav) [facility] SJPSF3215-54-37 18:12:00 Test Item Value Reference Range Interpretation Comments UA pH (test code = UA pH) 5.0 1 5.0-8.0 [facility] TKTZD8348-71-31 18:12:00Negative *NA*(10/25/19 1:12 PM) [facility] CYTMB6050-68-71 18:12:00Negative (10/25/19 1:12 PM) [facility] CJZRX8799-67-89 18:12:00Negative (10/25/19 1:12 PM) [facility] MGAWZ7561-71-80 18:12:00Negative (10/25/19 1:12 PM) [facility] LTMLA3532-89-57 18:12:002[facility] HFZXH7221-96-03 18:12:001[facility]annBACTERIAL - FZBBNUEI5791-41-22 18:12:00 Negative (10/25/19 1:12 PM)[facility]annBLOOD BANK IRESOML8492-64-36 18:12:00 Negative (10/25/19 1:12 PM)[facility]annCHEM TFETQ1589-14-06 18:12:0092 [facility]annCHEM GMSAR4670-05-35 18:12:0012[facility]annCHEM PANEL 2019-10-25 18:12:000.83[facility]annCHEM XZNVJ1528-17-60 18:12:18247Svxlvovc HermannCHEM WSWLW6730-66-03 18:12:004.3[facility] HermannCHEM XFHPK8188-15-53 18:12:50007Grjyfsaf HermannCHEM MFCBQ4986-24-74 18:12:0029[facility] HermannCHEM EZIDL7086-83-88 18:12:009.2[facility] HermannCHEM IEWXH1635-56-14 18:12:0010.3 [facility]annCHEM QEFII9054-96-59 18:12:0075[facility]annHEMATOLOGY 2019-10-25 18:12:0047.8[facility] WxhnydzEWWRDLNPGM5919-84-46 18:12:0045.1[facility] TgdyevxWARNMIWIML4127-73-76 18:12:005.5[facility] NmpdvkfLJBDVQIZGP1416-33-60 18:12:001.3[facility] PjehaivSKDBRWKHXJ1693-85-77 18:12:000.3[facility] Frandy NLZTVBOHOP9874-29-09 18:12:003.5[facility] MgruzqcSRCRNCALYO1156-17-86 18:12:003.3 [facility] WjjrttoEQICXCXBFG6862-69-37 18:12:000.4[facility]annHEMATOLOGY 2019-10-25 18:12:000.1[facility] ImkaaojQZSHYYZWZI8253-67-80 18:12:007.4[facility] LkxgoysVJLXRSQLTP4605-29-04 18:12:005.13[facility] JqueckgKCZETZINUC6010-85-09 18:12:0015.5[facility] GxkrgicURSMGDZLWI2143-98-69 18:12:0047.6[facility] FSSTNGHAPV4625-55-27 18:12:0092.9[facility] GmrdeteCOPMFGKCJM7075-23-49 18:12:00 Test Item Value Reference Range Interpretation Comments MCH (test code = MCH) 30.2 pg 27.0-31.0 [facility] PnftxveKXCSXUEUJP6654-30-84 18:12:0032.5[facility]annHEMATOLOGY 2019-10-25 18:12:0013.8[facility] EdmcejjGSAIOBEVXS7367-13-69 18:12:93663Smllvgwf NpvkoxtPTFHTKNCRM6190-95-07 18:12:006.9[facility] PlthuurCHQNHMWDFB7912-87-95 18:12:00 Test Item Value Reference Range Interpretation Comments PT (test code = PT) 12.4 s 12.0-14.7 [facility] TzgkckdIVPNRQIKDG7322-92-45 18:12:00 Test Item Value Reference Range Interpretation Comments INR (test code = INR) 0.92 1 0.85-1.17 [facility] TctdehzRKSWLYZBPW3610-40-43 18:12:00 Test Item Value Reference Range Interpretation Comments PTT (test code = PTT) 30.1 s 22.9-35.8 [facility]annSPECIAL MQYICWTQD1670-84-62 18:12:007.2[facility]UR[facility] AND ATXZL3271-36-05 18:12:00Clear (10/25/19 1:12 PM)[facility] STOOL 2019-10-25 18:12:00 Test Item Value Reference Range Interpretation Comments UA Spec Grav (test code = UA Spec 1.025 1 Grav) [facility] ZVZBN2309-46-03 18:12:00 Test Item Value Reference Range Interpretation Comments UA pH (test code = UA pH) 5.0 1 5.0-8.0 [facility] JKOJR0615-01-14 18:12:00Negative *NA*(10/25/19 1:12 PM) [facility] IJXRB7161-19-31 18:12:00Negative (10/25/19 1:12 PM) [facility] OPWFR4974-08-42 18:12:00Negative (10/25/19 1:12 PM) [facility] QXLOI5805-78-63 18:12:00Negative (10/25/19 1:12 PM) [facility] JNEPC6418-23-78 18:12:002[facility]UR[facility] AND OUTFO9768-78-39 18:12:001[facility] AijyjckXLASRSHCMP3423-88-38 17:24:00Not Detected (10/25/19 12:24 PM)[facility] WqkvxjjVKDSWUCWCH5332-55-80 17:24:00Not Detected (10/25/19 12:24 PM)[facility] IdyxneaIOVYCSKOBR8442-05-28 16:43:00Not Detected (10/19/19 11:43 AM)[facility] SdekkdoIEDKNTIFLB7176-91-14 16:43:00Not Detected (10/19/19 11:43 AM)[facility] HermannBLOOD NGOXLIF5556-45-25 22:00:00 Test Item Value Reference Range Interpretation Comments CULTURE (BEAKER) (test No growth in 5 days code = 1095) BLOOD VNWIZMY6218-38-25 22:00:00 Test Item Value Reference Range Interpretation Comments CULTURE ([facility]) (test No growth in 5 days code = 1095) POCT-GLUCOSE [id number] 12:00:00 Test Item Value Reference Range Interpretation Comments POC-GLUCOSE METER 90 mg/dL 70-[address] [facility] [address] ([facility]) (test code = [address] [facility] [place] 1538) [address] POCT-GLUCOSE [id number] 08:25:00 Test Item Value Reference Range Interpretation Comments POC-GLUCOSE METER 103 mg/dL 70-[address] [facility] [address] ([facility]) (test code [address] [facility] [place] = 1538) [address] POCT-GLUCOSE [id number] 20:14:00 Test Item Value Reference Range Interpretation Comments POC-GLUCOSE METER 135 mg/dL 70-[address] [facility] [address] ([facility]) (test code [address] [facility] [place] = 1538) [address] POCT-GLUCOSE [id number] 20:13:00 Test Item Value Reference Range Interpretation Comments POC-GLUCOSE METER 101 mg/dL 70-[address] [facility] [address] ([facility]) (test code [address] [facility] [place] = 1538) [address] RAD, CHEST, 2 [id number] 16:34:00Reason for exam:->f/u infiltrateFINAL REPORT CHEST, AP [...] acute osseous abnormalities identified. Signed: Fabien Clark MDRcandice Verified Date/Time: 12/22/2018 16:34:43 Reading Location: [facility] Radiology Reading Room POCT-GLUCOSE [id number] 08:37:00 Test Item Value Reference Range Interpretation Comments POC-GLUCOSE METER 148 mg/dL 70-[address] [facility] [address] (BEAKER) (test code [address] [facility] [place] = 1538) [address] BASIC METABOLIC [id number] 05:01:00 Test Item Value Reference Range Interpretation [...] PATIEN TS. CBC W/PLT COUNT & AUTO [id number] 04:38:00 Test Item Value Reference Range Interpretation [...] PERCENT (BEAKER) (test code = 2801) POCT-GLUCOSE [id number] 20:46:00 Test Item Value Reference Range Interpretation Comments POC-GLUCOSE METER 236 mg/dL 70-110 H TESTED AT [address] ([facility]) (test code [address] [facility] [place] = 1538) [address] POCT-GLUCOSE [id number] 18:27:00 Test Item Value Reference Range Interpretation Comments POC-GLUCOSE METER 100 mg/dL 70-110 TESTED AT [address] ([facility]) (test code [address] [facility] [place] = 1538) [address] CHEM OKDCB3966-01-34 10:36:002.5[facility] HermannCHEM PGNHN0683-38-97 10:36:003.1 [facility] HermannCHEM EXFZF6946-05-36 10:36:007.7[facility] HermannCHEM PANEL 2017-06-09 10:36:008.7[facility] HermannCHEM DVWXH1918-11-20 10:36:0024[facility] HermannCHEM QDBGR1901-29-10 10:36:50047Yxotikno HermannCHEM EADKR2173-92-42 10:36:004.1[facility] HermannCHEM GFSBB7258-77-00 10:36:12154Mbimozwe HermannCHEM MPMQH0337-38-46 10:36:0044[facility] HermannCHEM LMLNQ2505-78-80 10:36:000.3 [facility] HermannCHEM TTCSG8903-29-05 10:36:0071[facility] HermannCHEM PANEL 2017-06-09 10:36:003.2[facility] HermannCHEM CLVBW6266-54-77 10:36:0094[facility] HermannCHEM QEHPO0957-98-40 10:36:92500Betiyadm HermannCHEM UFBSL7512-34-81 10:36:000.70[facility] HermannCHEM ERUAF7842-47-40 10:36:0012[facility] HermannCHEM TAYPD4107-32-28 10:36:56703Knhrdgxk HermannCHEM MDGET1344-32-90 10:36:00 Test Item Value Reference Range Interpretation Comments A/G Ratio (test code = A/G Ratio) 0.7 1 0.7-1.6 [facility] HSPLT0503-22-18 10:36:0015.1[facility] HermannCHEM PANEL 2017-06-09 10:36:004.5[facility] HermannCHEM YAYLL6774-86-53 10:36:00 Test Item Value Reference Range Interpretation Comments B/C Ratio (test code = B/C Ratio) 17 1 6-25 [facility] HospitalBfeveufJUYABJDVCA3192-25-83 10:36:00 Test Item Value Reference Range Interpretation Comments PTT (test code = PTT) 31.3 s 22.9-35.8 [facility] HospitalBpoupwsUMWMLTIVSW7187-80-68 10:36:00 Test Item Value Reference Range Interpretation Comments INR (test code = INR) 1.04 1 0.85-1.17 [facility] HrfqzxsMWNKQDPMSE4366-58-20 10:36:00 Test Item Value Reference Range Interpretation Comments PT (test code = PT) 13.6 s 12.0-14.7 [facility] FjaufcfJBEMTIXYDZ8104-96-81 10:36:000.3[facility] HermannHEMATOLOGY 2017-06-09 10:36:001.3[facility] QqhrpovLJKJKKPOQK5717-62-31 10:36:0084.9[facility] McbcchzCGSLKEIDXZ8787-78-17 10:36:009.0[facility] BkfpcihTNKYEBUXTY6570-77-29 10:36:000.1[facility] MkgzbuuWOWLTBWLEB7990-17-63 10:36:0012.5[facility] GDCESMMLHL0718-02-42 10:36:002.5[facility] CdqkzolEWYSJLDYET0652-45-95 10:36:00 4.13[facility] EswcpzdOPFYPWYHFS5874-41-08 10:36:0010.6[facility] HermannHEMATOLOGY 2017-06-09 10:36:00 Test Item Value Reference Range Interpretation Comments MCH (test code = MCH) 31.4 pg 27.0-31.0 [facility] OaodvxiGBENNJJXFM8253-32-21 10:36:0012.5[facility] HermannHEMATOLOGY 2017-06-09 10:36:0034.6[facility] EtshdwnPZOCNQETSV1286-81-22 10:36:0013.0[facility] DumyxjsFKIAESMFMC3014-11-25 10:36:0090.7[facility] PteqcsqXPSHZCROWD8134-76-08 10:36:0037.4[facility] MavhiheJELRNONFCN0212-48-68 10:36:007.7[facility] PKICPIGFRO9083-17-44 10:36:45233Vowqfutm HermannCHEM KREFI5357-04-18 10:36:002.5 [facility] HermannCHEM MVDMC7135-60-68 10:36:003.1[facility] HermannCHEM PANEL 2017-06-09 10:36:007.7[facility] HermannCHEM YXHBB2791-50-27 10:36:008.7[facility] HermannCHEM ABGOV9892-61-86 10:36:0024[facility] HermannCHEM SQVNK3085-30-75 10:36:32713Pcwjchuw HermannCHEM SCMBE8183-72-29 10:36:004.1[facility] HermannCHEM YOENF8968-88-56 10:36:91572Xnrkakkq HermannCHEM DXUER8123-52-11 10:36:0044 [facility]CHE[facility] PFVVE2296-51-53 10:36:000.3[facility] HermannCHEM PANEL 2017-06-09 10:36:0071[facility] HermannCHEM ASIIB1767-18-13 10:36:003.2[facility] HermannCHEM RMLRV2367-80-91 10:36:0094[facility] HermannCHEM APBDI9836-23-22 10:36:45504Vendygnj HermannCHEM KNSUZ9339-87-24 10:36:000.70[facility]CHE[facility] CRGCW1613-49-31 10:36:0012[facility] HermannCHEM WUMPZ6408-72-73 10:36:92333 [facility]annCHE[facility] IMXDZ9517-48-86 10:36:00 Test Item Value Reference Range Interpretation Comments A/G Ratio (test code = A/G Ratio) 0.7 1 0.7-1.6 [facility]2018-01-25 10:36:0015.1[facility]ann[facility] 2017-06-09 10:36:004.5[facility]evtriGood [facility]itan HospitalannCAROLIN[facility] AT UNIVERSITYHIJKQ0944-08-15 10:36:00 Test Item Value Reference Range Interpretation Comments B/C Ratio (test code = B/C Ratio) 17 1 6-25 [facility] HospitalSccaessJGEMEWYDSO6175-60-18 10:36:00 Test Item Value Reference Range Interpretation Comments PTT (test code = PTT) 31.3 s 22.9-35.8 [facility] HospitalYbfkaqrYSTCDYZEGF7218-28-35 10:36:00 Test Item Value Reference Range Interpretation Comments INR (test code = INR) 1.04 1 0.85-1.17 [facility] HospitalQqmjwoiARDDSDTGZO5020-42-96 10:36:00 Test Item Value Reference Range Interpretation Comments PT (test code = PT) 13.6 s 12.0-14.7 [facility] HospitalLmwtaquTRWVHHYYBS4685-18-98 10:36:000.3[facility] HermannHEMATOLOGY 2017-06-09 10:36:001.3[facility] ItzrqgqZXUIOOTSBI8927-62-35 10:36:0084.9[facility] XurewexNLINADRDBB5974-42-49 10:36:009.0[facility] SdodzwcISPPXDQYBE4161-80-72 10:36:000.1[facility] BdluyqzPFFKITWXVW0848-16-26 10:36:0012.5[facility] WAFCERTZIR4966-22-49 10:36:002.5[facility] HxpnxygQYHSUIQXHJ0915-25-03 10:36:00 4.13[facility] EgwjlxqWDEPKOXWIM3011-15-30 10:36:0010.6[facility] HermannHEMATOLOGY 2017-06-09 10:36:00 Test Item Value Reference Range Interpretation Comments MCH (test code = MCH) 31.4 pg 27.0-31.0 [facility] PjrtinbFXUPHKDXIN7122-66-09 10:36:0012.5[facility] HermannHEMATOLOGY 2017-06-09 10:36:0034.6[facility] WqgiocmOVBARMHOMT5767-66-08 10:36:0013.0[facility] OrxzxjsCGVMKSMKSA1012-28-09 10:36:0090.7[facility] NrpflahGHGOJWGBBI1892-26-46 10:36:0037.4[facility] KyxonwwIEGDCEISAO4422-50-08 10:36:007.7[facility] OLIMLELSJD4697-93-95 10:36:27418Nzcmxuma HermannCHEM HRTVH1465-71-37 16:16:0080 [facility] HermannCHEM ZVYFM6129-62-99 16:16:0010.1[facility] HermannCHEM PANEL 2017-06-08 16:16:0029[facility] HermannCHEM SKEQS5772-95-37 16:16:008.8[facility] HermannCHEM KSCCV2628-41-26 16:16:004.1[facility] HermannCHEM LZSJH8067-60-49 16:16:59456Txusdpue HermannCHEM KSNXU5625-02-69 16:16:06305Upsnmwdz HermannCHEM UCOON5851-46-38 16:16:000.80[facility] HermannCHEM HNVDO9134-08-84 16:16:89336 [facility] HermannCHEM BBILY5145-03-00 16:16:0010[facility] HermannCHEM PANEL 2017-06-08 16:16:0080[facility] HermannCHEM RSMTI8296-02-67 16:16:0010.1[facility] HermannCHEM MMRJP8558-68-79 16:16:0029[facility] HermannCHEM DJVIY9784-57-68 16:16:008.8[facility] HermannCHEM CJFSB0178-79-67 16:16:004.1[facility] HermannCHEM PFEHQ0744-02-80 16:16:47803Hzsodsyq HermannCHEM OPKYY1691-56-22 16:16:13742 [facility] HermannCHEM LLVFP7789-06-20 16:16:000.80[facility] HermannCHEM PANEL 2017-06-08 16:16:64297Ycoxizko HermannCHEM NLQIP2578-11-15 16:16:0010[facility] GxocvgsBXYDHQFHIQ2725-98-22 12:20:0013.9[facility] NmwrlwwAOQZHIBWDH7564-30-15 12:20:0041.0[facility] OwwkngiWZUYIBWNXY4339-27-82 12:20:0011[facility] IUGKTJBGHX5714-71-33 12:20:29759Ntvgdisf AihtnwbKRHQKQFRFH2186-87-69 12:20:004.0 [facility] VnxdwjcERXRHJZLFQ3941-75-60 12:20:42296Tlpzedwq HermannHEMATOLOGY 2017-06-08 12:20:78497Sqlzczor QuxmoynHTZPXYPFOU7572-78-41 12:20:0013.9[facility] StajtsgAOWENPIHXV9222-24-27 12:20:0041.0[facility] QkzmyxhOTDURWNSPI9817-05-04 12:20:0011[facility] CwvmgslBHJUWGTRGB0607-19-38 12:20:19354Peuwlrid Frandy SMCOMTVMHW8673-50-68 12:20:004.0[facility] HsyyuyaLMHEQXRDPW7340-72-07 12:20:54164 [facility] KtypbmkTGECATMLXQ3565-49-76 12:20:20830Brgdnzie HermannBLOOD BANK XTEODUF2874-33-19 12:19:00Negative (06/08/17 6:19 AM)[facility] HermannBLOOD BANK YIFPPRM1442-69-59 12:19:00Negative (06/08/17 6:19 AM)[facility] HermannELECTROLYTES 2017-06-03 16:25:007.2[facility] KxkwwloKGJUNVSOXLNB7649-71-89 16:25:0080[facility] ZaazhdzCJUJASBXXWCJ7287-93-66 16:25:38568Tjbqeghe NjwqssyTNNWXPUQQHXS4315-36-87 16:25:47531Acayifdu OtwtqmmTHAELATBHFJN3513-04-19 16:25:009.3[facility] KOFEHYGMWJPO9983-61-70 16:25:0035[facility] HqmnffsXGBCUKYBTNHO0279-15-07 16:25:00 5.2[facility] TzwezhbCTBWQILOFHLL6268-51-22 16:25:000.80[facility] BSKJLPJAWGIH3409-84-30 16:25:007[facility] OcjeiieRJJHEFRNSXNL1503-91-55 16:25:00 94[facility] HeqdmvlDNIDAJTTTW3066-89-21 16:25:0013.1[facility] HermannHEMATOLOGY 2017-06-03 16:25:00 Test Item Value Reference Range Interpretation Comments MCH (test code = MCH) 30.7 pg 27.0-31.0 [facility] EknkmxoWLOOJNMHEX9423-16-64 16:25:0033.4[facility] HermannHEMATOLOGY 2017-06-03 16:25:0092.0[facility] BaunhrjPZZTQISYVV3560-38-88 16:25:0044.3[facility] GembxrjKSXILWVGJU7031-81-61 16:25:004.81[facility] VjixucnSNICQOIXYR4816-96-14 16:25:0014.8[facility] SbrjaaqSUXQLQHNJO1784-96-90 16:25:007.3[facility] STHSAIZURS0439-06-73 16:25:007.9[facility] ZmxhrjmQAXEMMFCNB4990-57-87 16:25:61651 [facility] PgdnosqNLURNIQQWH4526-30-98 16:25:000.1[facility] HermannHEMATOLOGY 2017-06-03 16:25:003.2[facility] LpwmrubCJQJKYLTGY6040-24-70 16:25:000.4[facility] QtsieddOIKWFROVEZ7929-53-53 16:25:001.9[facility] VoxhhafOZIYAYTYGZ9239-05-18 16:25:003.5[facility] VggehueQGVFTPJQCX4665-16-74 16:25:000.5[facility] ABZARNOZAW1584-75-29 16:25:0047.7[facility] KonbxadRAGCINOJTN2100-92-24 16:25:00 6.2[facility] HlphvguZWQQHFSCWB4333-73-21 16:25:0043.7[facility] HermannELECTROLYTES 2017-06-03 16:25:007.2[facility] RjbqgshAJZQVMOMKVGB8295-21-52 16:25:0080[facility] RakusotRWAAXJCNNMLP5422-50-06 16:25:69077Evrckyat AwwvdypMQZJXRFLUNVP6494-25-60 16:25:34908Tjylmiao OnogzpdQKFEMELLEVUF4853-12-14 16:25:009.3[facility] NRFFYQHNLGVZ8808-42-40 16:25:0035[facility] AfnpopbNJSXEJSXYNHG2616-76-95 16:25:00 5.2[facility] VhnqfwnQDIFOBTDOYTA4988-31-78 16:25:000.80[facility] ZZXSSIVAOUCC3965-89-29 16:25:007[facility] CoiqriaHFSFXESHGUWW6482-32-76 16:25:00 94[facility] JxpfsbsHIDLPMYWKZ7663-27-84 16:25:0013.1[facility] HermannHEMATOLOGY 2017-06-03 16:25:00 Test Item Value Reference Range Interpretation Comments MCH (test code = MCH) 30.7 pg 27.0-31.0 [facility] MaibesmWOLAJQQTBI5152-65-82 16:25:0033.4[facility] HermannHEMATOLOGY 2017-06-03 16:25:0092.0[facility] WvdswreZKLHVRTAYG3314-20-63 16:25:0044.3[facility] PuujqxpKOBCTXLWRU4354-49-57 16:25:004.81[facility] OmylmuvEVQYIVPWXY7247-12-78 16:25:0014.8[facility] BpyzojuNDPGUAURZR9746-27-92 16:25:007.3[facility] KSDOYSFTHX7024-69-01 16:25:007.9[facility] DnbtrpbSERLJZPCUQ2365-33-73 16:25:49644 [facility] DxpjbhhPATEZQNAAY8165-58-16 16:25:000.1[facility] HermannHEMATOLOGY 2017-06-03 16:25:003.2[facility] WqidwkdYXLGSLOUVK3235-79-95 16:25:000.4[facility] XnbhgtaHRNLNOTXLD7107-89-25 16:25:001.9[facility] QofdvqoXTQRTRITPY6877-28-24 16:25:003.5[facility] BlidbjfQGVWHDRCDV2837-24-43 16:25:000.5[facility] PUVDMSBYWD4791-92-51 16:25:0047.7[facility] XexrginZDHCDAOGSL7926-27-81 16:25:00 6.2[facility] VkudztkBPCBZNQGKD8531-20-99 16:25:0043.7[facility] HermannCHEM PANEL 2014-05-23 11:49:003.4[facility] HermannCHEM TKHPX9213-37-63 11:49:004.2[facility] HermannCHEM NIDFO8515-72-12 11:49:000.8[facility] HermannCHEM EVAVV2584-98-46 11:49:007.6[facility] HermannCHEM DGAJT4643-03-84 11:49:24234Dcgzagau HermannCHEM EUKYO2789-28-91 11:49:0058[facility] HermannCHEM ABCJH2786-33-05 11:49:0054 [facility] HermannCHEM GCBAX2397-01-10 11:49:000.3[facility] HermannCHEM PANEL 2014-05-23 11:49:000.4[facility] HermannCHEM JFLLW3617-27-54 11:49:000.1[facility] HermannCHEM PFQYB5137-52-89 11:49:001.8[facility] HermannCHEM ISVKN2143-43-17 11:49:0096[facility] HermannCHEM LXUKT3508-41-18 11:49:11802Xxdmqcpq HermannCHEM YISPF6752-28-42 11:49:009.2[facility] HermannCHEM HAHOR3698-34-13 11:49:0025 [facility] HermannCHEM COLHX2128-95-72 11:49:000.7[facility] HermannCHEM PANEL 2014-05-23 11:49:12940Tfrwgkbi HermannCHEM VBZYJ4853-45-17 11:49:004.1[facility] HermannCHEM FIEIK9987-94-49 11:49:0010[facility] HermannCHEM FAFQC5880-28-57 11:49:30822Isyadjtf HermannCHEM XBOBE1562-96-74 11:49:0013.1[facility] PLRDANCRLX4652-11-87 11:49:00 Test Item Value Reference Range Interpretation Comments MCH (test code = MCH) 31.7 pg 27.0-31.0 [facility] FwqsogtKTDWHIVUVF7046-31-95 11:49:0034.3[facility] HermannHEMATOLOGY 2014-05-23 11:49:11406Bsdsqohr CshelesNNJYFXXTDK0009-33-11 11:49:0012.8[facility] WpcoddjTZKNWUCZSH6039-14-43 11:49:008.0[facility] OwiarrjTRYBSWRXZZ4102-27-52 11:49:004.33[facility] ZezqjjyOHTMJBATJF2502-94-94 11:49:0010.3[facility] MLGSAFXTJM7578-06-07 11:49:0092.2[facility] UqaapfbBZMUYWQBUZ2971-13-97 11:49:00 40.0[facility] VmttgndPMHJLLVNMK3451-48-38 11:49:0013.7[facility] HermannHEMATOLOGY 2014-05-23 11:49:000.1[facility] OivupbrVOTRRDQWXH2487-92-02 11:49:0010.9[facility] TydfjitZBJZKSKLWQ3200-77-00 11:49:001.1[facility] LklxnnxLZRDYZVYWC4242-72-07 11:49:000.8[facility] NgggmnpDUOZWAZKWA8612-77-48 11:49:009.0[facility] EQQHWFHIJG4521-76-14 11:49:001.1[facility] WhkclghKROUQFLONJ4892-13-18 11:49:000.1 [facility] MafxmtlUSHLHBMOSM9138-41-96 11:49:0087.2[facility] HermannCHEM PANEL 2014-05-23 11:49:003.4[facility] HermannCHEM PCIYF5355-76-39 11:49:004.2[facility] HermannCHEM EEYSX4286-83-55 11:49:000.8[facility] HermannCHEM XWMXY7868-24-38 11:49:007.6[facility] HermannCHEM UDBBB9273-02-42 11:49:23293Qiadnqpp HermannCHEM DUXTF1916-13-10 11:49:0058[facility] HermannCHEM GHKHO8331-59-70 11:49:0054 [facility] HermannCHEM VGDOW2515-96-89 11:49:000.3[facility] HermannCHEM PANEL 2014-05-23 11:49:000.4[facility] HermannCHEM VIPUE4709-18-60 11:49:000.1[facility] HermannCHEM ZKWTO5744-01-81 11:49:001.8[facility] HermannCHEM MWVDV2701-58-10 11:49:0096[facility] HermannCHEM YSIMC1707-85-45 11:49:90298Nggthgsr HermannCHEM CUZWE5024-47-89 11:49:009.2[facility] HermannCHEM JJYKI9905-91-82 11:49:0025 [facility] HermannCHEM WSHWD3973-12-74 11:49:000.7[facility] HermannCHEM PANEL 2014-05-23 11:49:93282Ldeyjzrp HermannCHEM QRWBO7646-42-68 11:49:004.1[facility] HermannCHEM RGBYW3009-28-17 11:49:0010[facility] HermannCHEM JTCHY4537-32-46 11:49:34276Wubruzki HermannCHEM HHAWD2119-40-04 11:49:0013.1[facility] DUHNXXPTKY1591-09-62 11:49:00 Test Item Value Reference Range Interpretation Comments MCH (test code = MCH) 31.7 pg 27.0-31.0 [facility] CouuksvEDZKYECCMH9747-07-71 11:49:0034.3[facility] HermannHEMATOLOGY 2014-05-23 11:49:19186Porthusd KirfhwdNLMRJMNVGC4971-60-30 11:49:0012.8[facility] TeyrfqfLBTDFLXIRH8732-32-14 11:49:008.0[facility] QexxhjmJKMLXTOSWN9437-73-96 11:49:004.33[facility] GebcipwIROOFVDOSH9547-96-83 11:49:0010.3[facility] HTCXTXVCPP5263-10-79 11:49:0092.2[facility] YoaxbhcYDNMCBBKPO2554-34-11 11:49:00 40.0[facility] PhdjgdlYBNCOHPMVF3956-07-25 11:49:0013.7[facility] HermannHEMATOLOGY 2014-05-23 11:49:000.1[facility] JtxlvozSJUCXUMFIM1940-62-46 11:49:0010.9[facility] OioohuoMHCDOTXCFJ9056-24-51 11:49:001.1[facility] BcdllajFUVVBXBHUS3034-07-16 11:49:000.8[facility] AcfrkkzODJCVYYNAR2039-41-10 11:49:009.0[facility] KEIADTWHFP1831-12-25 11:49:001.1[facility] KblukvfYKOZYCDTPM3860-74-10 11:49:000.1 [facility] QpmgbkcHQILDPJNFB8744-76-46 11:49:0087.2[facility] HermannCHEM PANEL 2014-05-22 20:29:0071[facility] HermannCHEM IEGBL0519-78-32 20:29:008.4[facility] HermannCHEM YZSVO6553-99-65 20:29:0012.4[facility] HermannCHEM LNCKB3799-56-80 20:29:0027[facility] HermannCHEM NSITN2147-08-95 20:29:10883Yjmsoeid HermannCHEM ASBDG4457-23-76 20:29:003.4[facility] HermannCHEM PMBDO1084-85-58 20:29:60164 [facility] HermannCHEM YKLDS7309-10-45 20:29:0013[facility] HermannCHEM PANEL 2014-05-22 20:29:68279Cmrqrkqr HermannCHEM NBMGQ1618-45-85 20:29:000.9[facility] HermannCHEM CADTZ9457-05-17 20:29:0071[facility] HermannCHEM XZLES3026-90-53 20:29:008.4[facility] HermannCHEM DZDTJ1218-36-75 20:29:0012.4[facility] HermannCHEM MCDKG2164-82-80 20:29:0027[facility] HermannCHEM DSAJK6203-54-13 20:29:71746 [facility] HermannCHEM GNWGN8008-37-61 20:29:003.4[facility] HermannCHEM PANEL 2014-05-22 20:29:53453Ugewvkzj HermannCHEM HKXJZ9390-34-32 20:29:0013[facility] HermannCHEM ZESXB9523-31-24 20:29:95175Lgkfaycf HermannCHEM FXYEB9760-76-79 20:29:000.9[facility] HermannBLOOD BANK GOXDMLY1090-04-17 16:53:00Negative (05/14/14 10:53 AM)[facility] JmmluvqLGIVRZVPVQ2367-03-30 16:53:007.8[facility] KdvionoBSXISGYMVM0241-19-89 16:53:00 Test Item Value Reference Range Interpretation Comments MCH (test code = MCH) 31.0 pg 27.0-31.0 [facility] BuiczymQUUJJHSYGL8798-20-14 16:53:0034.3[facility] HermannHEMATOLOGY 2014-05-14 16:53:0012.5[facility] UigjjeiJBOHNJXXWM6081-81-16 16:53:45248Wfbvcstu QgpeycuJZQHNFZEHZ4574-42-69 16:53:0090.4[facility] YhlyiceHZCPJDMNIO7499-89-18 16:53:0014.5[facility] WaxzqwgNJAMZVCUGO0623-32-75 16:53:004.69[facility] BZOWARJLZD1633-03-49 16:53:0042.4[facility] AnkjstwUSWAGFMCJM8627-25-96 16:53:00 6.5[facility] MeyabevVBDUOIPBAK1303-48-09 16:53:003.1[facility] HermannHEMATOLOGY 2014-05-14 16:53:002.9[facility] GjwzodaRZKDBHGCJY8078-77-21 16:53:000.3[facility] LxcqvgvMQDBGHAOBC0890-74-76 16:53:006.4[facility] MfgexlqFHTEWZMTYH7731-40-93 16:53:0047.0[facility] EvyqgqpQCUTEUDUUK0616-69-22 16:53:002.0[facility] FSBGHLFJDD4272-33-21 16:53:0044.3[facility] TghoosqJJVADDIGXC9013-10-65 16:53:00 0.0[facility] MiaskkcCYZEBCYRTK9260-95-56 16:53:000.1[facility] HermannHEMATOLOGY 2014-05-14 16:53:000.4[facility] ABINZXM6776-04-80 16:53:00 Negative (05/14/14 10:53 AM)[facility] VscablqUHSPUIRFNJ6822-16-43 16:53:007.8 [facility] NcvwiuiFMITGTTWAL2848-75-27 16:53:00 Test Item Value Reference Range Interpretation Comments MCH (test code = MCH) 31.0 pg 27.0-31.0 [facility] YtbmjmrVMWENKAPWP7978-50-56 16:53:0034.3[facility] HermannHEMATOLOGY 2014-05-14 16:53:0012.5[facility] FxeqyuxEMFMYVOHHR8606-90-06 16:53:60282Cfpvlrar GzxsnkqTIXYCJRHGX0305-87-39 16:53:0090.4[facility] PxcakvoAHSXOUFFDT7342-52-03 16:53:0014.5[facility] DzwwxvmHFBFJJRIKQ5987-08-05 16:53:004.69[facility] PDCUGEXQZH0614-07-63 16:53:0042.4[facility] RywqiktCAUWBHGGVI6376-12-33 16:53:00 6.5[facility] NdyrwhsFHUFZLIRMK4502-67-05 16:53:003.1[facility] HermannHEMATOLOGY 2014-05-14 16:53:002.9[facility] OxkpkekTHVOQBEKNZ7072-56-64 16:53:000.3[facility] MkglwwdGWVXTQXSVR4863-76-54 16:53:006.4[facility] KmzubqhGOEQEKWQKB9877-12-79 16:53:0047.0[facility] ZsgjkvdVWIQDIOMCS8641-54-16 16:53:002.0[facility] CJFKDGRNTA6550-19-56 16:53:0044.3[facility] WsqmrcfYYADXFDRHZ8779-33-32 16:53:00 0.0[facility] WvfoguaPRRCCSAZLO7103-07-21 16:53:000.1[facility] HermannHEMATOLOGY 2014-05-14 16:53:000.4[facility]
--- OUTSIDE RECORDS SUMMARY | 2020-05-30 16:18 | XMS REPORT | Summary of Care ---
:1955 Author Organization [facility] Address [address] [place] [id number] Care Team Providers Name Role Phone Suzie Carrion MD Unavailable Unavailable Jessica Easton Primary Care Provider Reason for Visit Reason Comments ULTRASOUND (Routine) Status Reason Specialty Diagnoses / Referred By Referred To Procedures Contact Contact Closed Vascular Sonography Diagnoses OBRIEN (dyspnea on exertion) Dyslipidemia Type 2 diabetes mellitus with complication, without long-term current use of insulin Addy Vilchis Procedures CAROTID DUPLEX BILATERAL BY VASCULAR LAB MD Marycarmen [address] [facility] [address] [phone] Encounter Details Date Type Department Care Team Description 04/23/2020 Manager Branch Visit [facility] Addy Vilchis MD [address] [facility] [address] [address] OBRIEN (dyspnea on exertion); Cardiology- [facility] V[facility] Room 1 - Dyslipidemia; [facility] Type 2 diabe sonia mellitus with complication, without long-term current use of insulin; Drive, [address] Stenosis of carotid artery, [place] [address] Allergies Active Allergy Reactions Severity Noted Date Comments Ciprofloxacin Hives 01/07/2016 Codeine Other - See comments 01/07/2016 Slows h eart rate down Iodine Hives 01/07/2016 Levofloxacin Hives 01/07/2016 Morphine Hallucinations 01/07/2016 Nsaids (Non-Steroidal Other - See comments 01/07/2016 Patient states that Anti-Inflammatory Drug) its cause immune system issues documented as of this encounter (statuses as of 04/23/2020) Medications Medication Sig Dispensed Refills Start Date End Date Status alirocumab (PRALUENT inject under the 0 Active PEN) 75 mg/mL PnIj skin. aspirin 81 mg Take 81 mg by mouth 0 Active chewable tablet daily. Cholecalciferol, Take by mouth. 0 Active Vitamin D3, (VITAMIN D3) 2,000 unit tablet LORATADINE (CLARITIN Take by mouth. 0 Active ORAL) fluticasone 50 Use 2 Sprays in 16 g 11 12/29/2017 Active mcg/actuation nasal each nostril daily. spray RESTASIS 0.05 % INSTILL 1 DROP INTO 3 11/14/2018 Active ophthalmic drops EACH EYE TWICE DAILY Docusate Sodium 100 Take 1 tablet by 0 Active mg tablet mouth. citalopram 40 mg Take 40 mg by mouth 0 Active tablet daily. ursodiol 300 mg Take 300 mg by 0 Active capsuleIndications: mouth 2 (two) times chronic pancreatitis daily. Indications: chronic inflammation of the pancreas levothyroxine 112 mcg Take 1 tablet by 90 tablet 1 12/04/2019 Active tabletIndications: mouth every Primary morning. hypothyroidism Blood Sugar Use as directed to 200 Strip 1 12/18/2019 Active Diagnostic, Disc Strp check blood sugar BID DX: E11.8 blood sugar Use as directed to 200 Strip 1 12/18/2019 Active diagnostic (ONETOUCH check blood sugar VERIO) strip BID DX: E11.8 Blood-Glucose Meter Use as directed to 1 Each 0 12/18/2019 Active (ONETOUCH VERIO FLEX) check blood sugar Misc BID DX: E11.8 tiotropium bromide Inhale 1 Puff 4 g 11 03/27/2020 Active (SPIRIVA RESPIMAT) daily. 2.5 mcg/actuation MistIndications: Mild intermittent asthma without complication, Dyspnea on exertion albuterol 90 Inhale 2 Puffs 8.5 g 11 03/27/2020 A ctive mcg/actuation every 6 (six) hours inhalerIndications: as needed for Mild intermittent Wheezing or asthma without Shortness of complication, Dyspnea Breath. on exertion documented as of this encounter (statuses as of 04/23/2020) Active Problems Problem Noted Date Osteopenia of left hip 08/16/2017 Osteopenia of spine 08/16/2017 Other specified hypothyroidism 04/26/2017 Type 2 diabetes mellitus with complication, without lo ng-term current use 04/26/2017 of insulin NAOMI (obstructive sleep apnea) 04/26/2017 Prediabetes 02/17/2016 Low IGF-1 level 01/20/2016 documented as of this encounter (statuses as of 04/23/2020) Resolved Problems Problem Noted Date Resolved Date Growth hormone deficiency 02/17/2016 08/29/2018 documented as of this encounter (statuses as of 04/23/2020) Immunizations Name Administration Dates Next Due Influenza Virus Vaccine 02/13/2020 Influenza Virus Vaccine (3+ yrs) 02/15/2017 documented as of this encounter Social History Tobacco Use Types Packs/Day Years Used Date Never Smoker Smokeless Tobacco: Never Used Alcohol Use Drinks/Week oz/Week Comments Yes 0 Standard drinks or equivalent 0.0 social Sex Assigned at Date Recorded Not on file COVID-19 Exposure Response Date Recorded In the last month, have you been in contact with No / Unsure 04/23/2020 8:55 AM [employer] someone who was confirmed or suspected to have Coronavirus / COVID-19? documented as of this encounter Last Filed Vital Signs Not on filedocumented in this encounter Plan of Treatment Date Type Specialty Care Team Description 06/27/2020 Office Visit Pulmonary Disease Leonid Napoles DO [address] [place] [id number] 07/21/2020 Office Visit Cardiology Addy Vilchis MD [address] [phone] 08/13/2020 Office Visit Endocrinology Diabetes & Tyler Gutierrez MD [facility] [address] [place] [address] Health Maintenance Due Date Last Done Comments HEPATITIS C (HCV) SCREEN 1955 PNEUMOCOCCAL 0-64 YEARS COMBINED 1962 SERIES (1 of 3 - PCV13) DTaP,Tdap,and Td Vaccines (1 - 10/24/1975 Tdap) COLON CANCER SCREENING ANNUAL 2006 FIT/FOBT COLON CANCER SCREENING FIT DNA 2006 EVERY 3 YEARS COLON CANCER SCREENING 2006 SIGMOIDOSCOPY EVERY 5 YEARS Zoster Recombinant Vaccine 2006 (SHINGRIX) (1 of 2) EYE EXAM 09/14/2019 09/13/2018, 09/13/2017 HgA1C 06/26/2020 12/25/2019, 03/27/2019, 08/29/2018, Additional history exists CREATININE (SERUM) 10/24/2020 10/25/2019, 10/25/2017, 08/16/2017, Additional history exists LDL-C 10/24/2020 10/25/2019, 11/22/2017, 02/01/2017 URINE MICROALBUMIN 10/24/2020 10/25/2019, 02/01/2017 Breast Cancer Screening 11/26/2020 11/27/2019, 08/02/2018, (MAMMOGRAM) 11/25/2017 FOOT EXAM 12/03/2020 12/04/2019, 12/04/2019, 04/04/2019, Additional history exists Depression Screening 03/27/2021 03/27/2020 COLONOSCOPY 05/16/2026 05/16/2016 Colorectal Cancer Screening 05/16/2026 INFLUENZA VACCINE Completed 02/13/2020, 02/15/2017 PAP SMEAR Discontinued documented as of this encounter Results Not on filedocumented in this encounter Visit Diagnoses Diagnosis OBRIEN (dyspnea on exertion) Other dyspnea and respiratory abnormalit y Dyslipidemia Other and unspecified hyperlipidemia Type 2 diabetes mellitus with complicati on, without long-term current use of insulin Stenosis of carotid artery, unspecified laterality documented in this encounter Insurance Payer Benefit Plan / Subscriber ID Effective Phone Address T ype Group Dates [facility] MEDICARE [id number] 2019-Pres Med icare Adv HEALTHCARE COMPLETE ent PPO MEDICARE CHOICE ADVANTAGE KRISTY WAGNER [id number] 2016-Pres [address] Med[address] id HEALTHCARE - [place]CARE [place] [id number] MANAGED MEDICAID [place], MEDICAID [place] documented as of this encounter
--- OUTSIDE RECORDS SUMMARY | 2020-05-30 16:18 | XMS REPORT | Summary of Care ---
:1955 Author Organization [facility] Address [address] [place] [id number] Care Team Providers Name Role Phone Suzie Carrion MD Unavailable Unavailable Jessica Easton Primary Care Provider Reason for Referral (Routine) Status Reason Specialty Diagnoses / Referred By Referred To Procedures Contact Contact Closed Vascular Sonography Diagnoses OBRIEN (dyspnea on exertion) Dyslipidemia Type 2 diabetes mellitus with complication, without long-term current use of insulin Vilchis, Sendil Procedures CAROTID DUPLEX BILATERAL BY VASCULAR LAB MD Marycarmen [address] [place] [address] (Routine) Status Reason Specialty Diagnoses / Referred By Referred To Procedures Contact Contact New Request Cardiology Diagnoses OBRIEN (dyspnea on exertion) Dyslipidemia Type 2 diabetes mellitus with complication, without long-term current use of insulin Vilchis, Sendil Procedures CARDIO LOOP MONITOR MD Marycarmen [address] [place] [address] Reason for Visit Reason Comments New Patient Establish Care Ekg Done today in office Encounter Details Date Type Department Care Team Description 04/21/2020 Office Visit [facility] Vilchis, Sendil OBRIEN (dyspnea on exertion) (Primary Dx); Cardiology- Meeta Conroy MD Dyslipidemia; [address] Type 2 diabetes mellitus with complicati on, without long-term current use of insulin; Drive, [address] Nonrheumatic mitral valve regurgitation; Meeta, [place], [place] History of TIA (transient ischemic attack); [id number] Palpitations; [phone] Family history of ASCVD (arterioscleroti c cardiovascular disease) Allergies Active Allergy Reactions Severity Noted Date Comments Ciprofloxacin Hives 01/07/2016 Codeine Other - See comments 01/07/2016 Slows h eart rate down Iodine Hives 01/07/2016 Levofloxacin Hives 01/07/2016 Morphine Hallucinations 01/07/2016 Nsaids (Non-Steroidal Other - See comments 01/07/2016 Patient states that Anti-Inflammatory Drug) its cause immune system issues documented as of this encounter (statuses as of 04/23/2020) Medications Medication Sig Dispensed Refills Start End Date Status Date alirocumab inject under 0 Activ e (PRALUENT PEN) 75 the skin. mg/mL PnIj aspirin 81 mg Take 81 mg by 0 Ac tive chewable tablet mouth daily. Cholecalciferol, Take by mouth. 0 Active Vitamin D3, (VITAMIN D3) 2,000 unit tablet LORATADINE Take by mouth. 0 Act bao (CLARITIN ORAL) fluticasone 50 Use 2 Sprays in 16 g 11 Active mcg/actuation each nostril 8 nasal spray daily. RESTASIS 0.05 % INSTILL 1 DROP 3 Active ophthalmic drops INTO EACH EYE 9 TWICE DAILY Docusate Sodium Take 1 tablet by 0 Active 100 mg tablet mouth. citalopram 40 mg Take 40 mg by 0 Active tablet mouth daily. ursodiol 300 mg Take 300 mg by 0 Active capsuleIndications mouth 2 (two) : chronic times daily. pancreatitis Indications: chronic inflammation of the pancreas levothyroxine 112 Take 1 tablet by 90 tablet 1 Active mcg mouth every 0 tabletIndications: morning. Primary hypothyroidism Blood Sugar Use as directed 200 Strip 1 Ac tive Diagnostic, Disc to check blood 0 Strp sugar BID DX: E11.8 blood sugar Use as directed 200 Strip 1 Ac tive diagnostic to check blood 0 (ONETOUCH VERIO) sugar BID DX: strip E11.8 Blood-Glucose Use as directed 1 Each 0 Active Meter (ONETOUCH to check blood 0 VERIO FLEX) Misc sugar BID DX: E11.8 tiotropium bromide Inhale 1 Puff 4 g 11 Active (SPIRIVA RESPIMAT) daily. 0 2.5 mcg/actuation MistIndications: Mild intermittent asthma without complication, Dyspnea on exertion albuterol 90 Inhale 2 Puffs 8.5 g 11 Ac tive mcg/actuation every 6 (six) 0 inhalerIndications hours as needed : Mild for Wheezing or intermittent Shortness of asthma without Breath. complication, Dyspnea on exertion citalopram Take 40 mg by 0 04/21/20 Disco ntinued (CELEXA) 20 mg mouth daily. 20 (T herapy tablet completed) foLIC acid 1 mg TAKE 1 TABLET BY 1 0 Discontinued tablet MOUTH ONCE DAILY 9 ( erapy completed) tofacitinib Take 11 mg by 0 04/21/20 Disc ontinued (XELJANZ XR) 11 mg mouth daily. 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 History from patient. Patient seen and examined in the room. Pertinent cardiac related history reviewed from chart OBRIEN NYHA Class II. Palpitations at rest. No history of exertional chest pain. No chest pain at rest. No PND or orthopnea. No pedal edema. Nosyncopal attacks. Outside records reviewed Last seen Dr Mejia in 09/28/2019. Reason for the appointment hypertensive heart disease without heart failure/dyslipidemia/nonrheumatic mitral valve insufficiency/PVCs/history of CVA/from history of CAD/diabetes mellitus Echocardiogram done on 03/12/2019 shows normal cardiac chambers mild left atrial dilatation mild mitral regurgitation ejection fraction more than 60% PA pressure normal impaired laxation noted Nuclear medicine stress test done on 06/01/2012 and 03/08/2018 Lexiscan nuclear stress test negative for ischemia Holter monitor done on 03/13/2015, 05/30/2017, 07/14/2018 shows average heart rate of 83 to 92 bpm mildectopy within normal limits. ANILA done on 09/28/2019 shows normal bilateral lower extremity with no significant disease. 1.02 bilaterally. Previous Cardiac Studies: IMAGING - I personally reviewed, pertinent results as below: ECG 04/21/2020 SR with narrow QRS complex. No sig ST changes. PAST MEDICAL HISTORY Past Medical History: Diagnosis Date Abnormal uterine bleeding Anemia Anxiety Asthma CVA (cerebral vascular accident) Depression Diabetes mellitus Endometriosis Growth hormone deficiency (human) Heart murmur s/p Rheumatic Fever at age 19-20 Hypothyroid Hypothyroid Obstructive sleep apnea Osteopenia 2017 Plantar fasciitis of left foot Rheumatic fever Spinal stenosis Past Surgical History: Procedure Laterality Date BONE SPUR EXCISION Foot / Shoulder CHOLECYSTECTOMY EXTRACAPSULAR CATARACT EXTRACTION WITH INTRAOCULAR LENS IMPLANT HYSTERECTOMY 2001 Complete IMPLANT/HARDWARE/ORTHO INFECTION CULTURE(AEROBIC/ANAEROBIC) Cervical Spine WILMA FUNDOPLICATION RADICAL HYSTERECTOMY SALPINGO-OOPHORECTOMY 2002 UPPER ARM/ELBOW SURGERY UNLISTED Right Elbow Family History Problem Relation Age of Onset Diabetes Father Hypertension Father Lung Cancer Father Bone Cancer Father Kidney Cancer Father Diabetes Brother Diabetes Brother Hypertension Mother Arthritis Mother Other - see comments Mother Thyroid d/o Stomach Cancer Maternal Aunt Stomach Cancer Maternal Grandmother Asthma NoFHx defects NoFHx Breast Cancer NoFHx Colon Cancer NoFHx Ovarian Cancer NoFHx Uterine Cancer NoFHx Cancer NoFHx Depression NoFHx Genetic NoFHx Heart NoFHx High cholesterol NoFHx Mental retardation NoFHx Neurological NoFHx Osteoporosis NoFHx Psychiatry NoFHx SOCIAL HISTORY Social History Socioeconomic History Marital status: Single Spouse name: Not on file Number of children: 0 Years of education: Not on file Highest education level: Not on file Occupational History Not on file Social Needs Financial resource strain: Not on file Food insecurity Worry: Not on file Inability: Not on file Transportation needs Medical: Not on file Non-medical: Not on file Tobacco Use Smoking status: Never Smoker Smokeless tobacco: Never Used Substance and Sexual Activity Alcohol use: Yes Alcohol/week: 0.0 standard drinks Comment: social Drug use: No Sexual activity: Never Partners: Male Lifestyle Physical activity Days per week: Not on file Minutes per session: Not on file Stress: Not on file Relationships Social connections Talks on phone: Not on file Gets together: Not on file Attends baptist service: Not on file Active member of club or organization: Not on file Attends meetings of clubs or organizations: Not on file Relationship status: Not on file Intimate partner violence Fear of current or ex partner: Not on file Emotionally abused: Not on file Physically abused: Not on file Forced sexual activity: Not on file Other Topics Concern Not on file Social History Narrative Denies domestic violence or abuse ALLERGIES Allergies Allergen Reactions Ciprofloxacin Hives Codeine Other - See comments Slows heart rate down Iodine Hives Levaquin [Levofloxacin] Hives Morphine Hallucinations Nsaids (Non-Steroidal Anti-Inflammatory Drug) Other - See comments Patient states that its cause immune system issues MEDICATIONS Patient's Medications START taking these medications No medications on file CONTINUE taking these medications which have NOT CHANGED ALBUTEROL 90 MCG/ACTUATION INHALER Inhale 2 Puffs every 6 (six) hours as needed for Wheezing or Shortness of Breath. ALIROCUMAB (PRALUENT PEN) 75 MG/ML PNIJ inject under the skin. ASPIRIN 81 MG CHEWABLE TABLET Take 81 mg by mouth daily. BLOOD SUGAR DIAGNOSTIC (ONETOUCH VERIO) STRIP Use as directed to check blood sugar BID DX: E11.8 BLOOD SUGAR DIAGNOSTIC, DISC STRP Use as directed to check blood sugar BID DX: E11.8 BLOOD-GLUCOSE METER (ONETOUCH VERIO FLEX) MISC Use as directed to check blood sugar BID DX: E11.8 CHOLECALCIFEROL, VITAMIN D3, (VITAMIN D3) 2,000 UNIT TABLET Take by mouth. CITALOPRAM 40 MG TABLET Take 40 mg by mouth daily. DOCUSATE SODIUM 100 MG TABLET Take 1 tablet by mouth. FLUTICASONE 50 MCG/ACTUATION NASAL SPRAY Use 2 Sprays in each nostril daily. LEVOTHYROXINE 112 MCG TABLET Take 1 tablet by mouth every morning. LORATADINE (CLARITIN ORAL) Take by mouth. RESTASIS 0.05 % OPHTHALMIC DROPS INSTILL 1 DROP INTO EACH EYE TWICE DAILY TIOTROPIUM BROMIDE (SPIRIVA RESPIMAT) 2.5 MCG/ACTUATION MIST Inhale 1 Puff daily. URSODIOL 300 MG CAPSULE Take 300 mg by mouth 2 (two) times daily. Indications: chronic inflammation of the pancreas START taking Modified Medications as Prescribed No medications on file STOP taking these medications CITALOPRAM (CELEXA) 20 MG TABLET Take 40 mg by mouth daily. FOLIC ACID 1 MG TABLET TAKE 1 TABLET BY MOUTH ONCE DAILY TOFACITINIB (XELJANZ XR) 11 MG TB24 Take 11 mg by mouth daily. Current Outpatient Medications: albuterol 90 mcg/actuation inhaler, Inhale 2 Puffs every 6 (six) hours as needed for Wheezing or Shortness of Breath., Disp: 8.5 g, Rfl: 11 tiotropium bromide (SPIRIVA RESPIMAT) 2.5 mcg/actuation Mist, Inhale 1 Puff daily., Disp: 4 g, Rfl: 11 blood sugar diagnostic (ONETOUCH VERIO) strip, Use as directed to check blood sugar BID DX: E11.8, Disp: 200 Strip, Rfl: 1 citalopram 40 mg tablet, Take 40 mg by mouth daily., Disp: , Rfl: levothyroxine 112 mcg tablet, Take 1 tablet by mouth every morning., Disp: 90 tablet, Rfl: 1 ursodiol 300 mg capsule, Take 300 mg by mouth 2 (two) times daily. Indications: chronic inflammation of the pancreas, Disp: , Rfl: Docusate Sodium 100 mg tablet, Take 1 tablet by mouth., Disp: , Rfl: RESTASIS 0.05 % ophthalmic drops, INSTILL 1 DROP INTO EACH EYE TWICE DAILY, Disp: , Rfl: 3 fluticasone 50 mcg/actuation nasal spray, Use 2 Sprays in each nostril daily., Disp: 16 g, Rfl:11 aspirin 81 mg chewable tablet, Take 81 mg by mouth daily., Disp: , Rfl: Cholecalciferol, Vitamin D3, (VITAMIN D3) 2,000 unit tablet, Take by mouth., Disp: , Rfl: LORATADINE (CLARITIN ORAL), Take by mouth., Disp: , Rfl: alirocumab (PRALUENT PEN) 75 mg/mL PnIj, inject under the skin., Disp: , Rfl: Blood Sugar Diagnostic, Disc Strp, Use as directed to check blood sugar BID DX: E11.8, Disp: 200 Strip, Rfl: 1 Blood-Glucose Meter (ONETOUCH VERIO FLEX) [facility] [place] Use as directed to check blood sugar BID DX: E11.8, Disp: 1 Each, Rfl: 0 REVIEW OF SYSTEMS: Comprehensive 10-system review was conducted and were negative except for what's noted in the HPI. The following systems were reviewed: Constitutional, cardiovascular, respiratory, gastrointestinal, genitourinary, musculoskeletal, neurologic, psychiatric, endocrinological, and hematological. PHYSICAL EXAMINATION: Vitals: 12/07/20 1438 BP: 119/72 BP Location: Left arm Patient Position: Sitting BP CUFF SIZE: Adult Large Pulse: 88 Resp: 19 SpO2: 94% Weight: 183 lb 3.2 oz (83.1 kg) Height: 5' 2" (1.575 m) General: no apparent distress HEENT: normocephalic atraumatic Neck: supple, no lymphadenopathy, no bruits, no JVD Lungs: clear to auscultation bilaterally. No wheezes or rhonchi. No increased work of breathing. Cardio: Regular rate and rhythm, S1&S2 normal, no murmurs, rubs or gallops Abdomen: soft; non-tender; non-distended; normoactive bowel sounds. : not examined Rectal: not examined Extremities: no clubbing, cyanosis, or edema. Skin: no rashes, no visible lesions. Neuro: no gross focal deficits LABS - Reviewed pertinent labs as below: CBC BMP PT/INR WBC (10*3/L) Date Value 10/25/2017 6.33 NA (mmol/L) Date Value 10/25/2017 139 No results found for: PT PLT (10*3/L) Date Value 10/25/2017 313 K (mmol/L) Date Value 10/25/2017 3.3 (L) No results found for: PTINR HGB (g/dL) Date Value 10/25/2017 14.4 BUN (mg/dL) Date Value 10/25/2017 8 HCT (%) Date Value 10/25/2017 44.1 CREATININE (mg/dL) Date Value 10/25/2017 0.70 LIPID PROFILE GLUCOSE (mg/dL) Date Value 10/25/2017 105 CHOL (mg/dL) Date Value 11/22/2017 106 (L) TSH LDL CHOL (mg/dL) Date Value 11/22/2017 17 TSH (mIU/L) Date Value 12/25/2019 1.59 CARDIAC ENZYMES HDL (mg/dL) Date Value 11/22/2017 68 No results found for: CK TRIG (mg/dL) Date Value 11/22/2017 105 LFTs No results found for: CKMB AST(SGOT) (U/L) Date Value 10/25/2017 27 TROPONIN I (ng/mL) Date Value 10/25/2017 0.001 ALT(SGPT) (U/L) Date Value 10/25/2017 24 No results found for: BNP LDL CHOL (mg/dL) Date Value 11/22/2017 17 There are no current results on file for these tests and/or test for 1 year. There are no current results on file for these tests and/or test for 1 year. LDL CHOL (mg/dL) Date Value 11/22/2017 17 NT-proBNP (pg/mL) Date Value 08/29/2017 96 ASSESSMENT/PLAN 1. OBRIEN (dyspnea on exertion) EKG-12 LEAD ROUTINE CARDIO LOOP MONITOR CAROTID DUPLEX BILATERAL BY VASCULAR LAB 2. Dyslipidemia EKG-12 LEAD ROUTINE CARDIO LOOP MONITOR CAROTID DUPLEX BILATERAL BY VASCULAR LAB 3. Type 2 diabetes mellitus with complication, without long-term current use of insulin EKG-12 LEADROUTINE CARDIO LOOP MONITOR CAROTID DUPLEX BILATERAL BY VASCULAR LAB 4. Nonrheumatic mitral valve regurgitation 5. History of TIA (transient ischemic attack) 6. Palpitations 7. Family history of ASCVD (arteriosclerotic cardiovascular disease) OBRIEN NYHA Class II: Multifactorial etiology. Lexiscan nuclear medicine stress test done twice were negative 02/2018 similar to 2013. Mild mitral regurgitation: Recent echo done 2019 was reviewed which shows mild mitral regurgitation with no significant changes compared to the prior echo from 2016. T2DM: Follows PCP Palpitations: Recommended to proceed with event monitor for 30 days to rule out ongoing history of paroxysmal atrial fibrillation. She is being planned to undergo knee surgery in the near future. Recommended to call us once she is back on her usual self completing the physical therapy and able to doroutine day-to-day activities without any significant pain. We will mail her a monitor at the time. Dyslipidemia: Recommended to keep LDL < 70 in view of TIA. Lifestyle modifications stressed. Currently on Praluent 75 mg every 2 weeks. Follows PCP. LDL CHOL (mg/dL) Date Value 11/22/2017 17 History of TIA: On aspirin 81 daily/Praluent. Recommended to have a carotid artery ultrasound. No orders of the defined types were placed in this encounter. Requested Prescriptions No prescriptions requested or ordered in this encounter Patient's diease process and its evaluation and treatment were discussed. We discussed each of for cardio vascular-related problems and discussed long-term goals and expectations for the each problem.I reviewed each of the cardiac medications in detail. The diagnostic accuracy and limitation of stress testing for identification of coronary artery disease were reviewed in detail. Reviewed the medication with patient in detail recommended to continue taking the current medications without further changes. Recommended goal BP < 130/80 consistently, LDL << 70, HbA1c < 6.5. Recommended, explained and stressed the importance of healthy eating habits and exercises and lifestyle modifications Follow up as planned is predicated on symptoms stability and/or acceptable test results. Patient is urged to call in sooner should problems arise or if there is no improvement in cardiac symptoms. ER warning signs and symptoms explained and patient verbalized understanding. My diagnostic impression and treatment plans were discussed at length with the patient. All side effects as well as drug-drug interactions and risks discussed at length. Ample opportunity was offered and encouraged to ask questions during this visit and patient appreciated the answers given by me andverbzalised statisfcation in the answers given. Thank you for allowing us to participate in the care of Kathy Ledesma. If you have any questions or concerns please feel free to call our office at [phone]. I would be happy to be of further assistance for Kathy Ledesma wellbeing. Tk Vilchis MD Finish Remover, Division of Cardiology [facility] documented in this encounter Plan of Treatment Date Type Specialty Care Team Description 06/27/2020 Office Visit Pulmonary Disease Leonid Napoles, [address] [place] [phone] 07/21/2020 Office Visit Cardiology Addy Vilchis MD [address] [place] [phone] 08/13/2020 Office Visit Endocrinology Diabetes & Tyler Gutierrez MD Metabolism [address] [place] [address] Name Type Priority Associated Diagnoses Order S chedule EKG-12 LEAD ROUTINE HEART STATION Routine OBRIEN (dyspnea on Orde red: 04/21/2020 exertion) Dyslipidemia Type 2 diabetes mellitus with complication, without long-term current use of insulin CARDIO LOOP MONITOR HEART STATION Routine OBRIEN (dyspnea on 1 Oc currences starting exertion) 04/21/2020 until Dyslipidemia 04/22/2021 Type 2 diabetes mellitus with complication, without long-term current use of insulin Health Maintenance [...] Visit Diagnoses Diagnosis OBRIEN (dyspnea on exertion) - Primary Other dyspnea and respiratory abnormalit y Dyslipidemia Other and unspecified hyperlipidemia Type 2 diabetes mellitus with complicati on, without long-term current use of insulin Nonrheumatic mitral valve regurgitation History of TIA (transient ischemic attac k) Transient ischemic attack (TIA), and cer ebral infarction without residual deficits Palpitations Family history of ASCVD (arterioscleroti c cardiovascular disease) Family history of other cardiovascular d iseases documented in this encounter Insurance Payer Benefit Plan / Subscriber ID Effective Phone Address T ype Group Dates UNITED UHC MEDICARE [id number] 2019-Pres Med icare Adv HEALTHCARE COMPLETE ent PPO MEDICARE CHOICE ADVANTAGE KRISTY WAGNER [id number] 2016-Pres [address] [facility] HEALTHCARE [place] [id number] MANAGED MEDICAID [place], MEDICAID [place] documented as of this encounter
--- OUTSIDE RECORDS SUMMARY | 2020-05-30 16:18 | XMS REPORT | Summary of Care ---
:1955 Author Organization [facility] Address [address] [place] [address] Care Team Providers Name Role Phone Suzie Carrion MD Unavailable Unavailable Jessica Easton Primary Care Provider Reason for Visit Reason Comments LAB WORK Auth/Cert Status Reason Specialty Diagnoses / Referred By Referred To Procedures Contact Contact Clinical Medical Diagnoses COVID-19 Adc Lab Laboratory Procedures COVID-19 (ID NOW RAPID TESTING) [address] [place] [address] Encounter Details Date Type Department Care Team Description 04/04/2020 Laboratory Only [facility] Fer Jules MD [address] [place] [address] Pre-operative exam Phlebotomy Only, Adc Test (Primary Dx) [facility] [address] [place] [address] Allergies Active Allergy Reactions Severity Noted Date Comments Ciprofloxacin Hives 01/07/2016 Codeine Other - See comments 01/07/2016 Slows h eart rate down Iodine Hives 01/07/2016 Levofloxacin Hives 01/07/2016 Morphine Hallucinations 01/07/2016 Nsaids (Non-Steroidal Other - See comments 01/07/2016 Patient states that Anti-Inflammatory Drug) its cause immune system issues documented as of this encounter (statuses as of 04/17/2020) Medications Medication Sig Dispensed Refills Start Date End Date Status citalopram (CELEXA) Take 40 mg by mouth 0 Active 20 mg tablet daily. alirocumab (PRALUENT inject under the 0 [...] Active mcg/actuation nasal each nostril daily. spray foLIC acid 1 mg TAKE 1 TABLET BY 1 10/18/2018 Active tablet MOUTH ONCE DAILY RESTASIS 0.05 % INSTILL 1 DROP INTO 3 11/14/2018 Active ophthalmic drops EACH EYE TWICE DAILY Docusate Sodium 100 Take 1 tablet by 0 Active mg tablet mouth. tofacitinib (XELJANZ Take 11 mg by mouth 0 Active XR) 11 mg Tb24 daily. 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 documented as of this encounter Last Filed Vital Signs Not on filedocumented in this encounter Plan of Treatment Date Type Specialty Care Team Description 04/21/2020 Office Visit Cardiology Addy Vilchis MD [address] [place] [address] [place] [phone] 06/27/2020 Office Visit Pulmonary Disease Leonid Napoles, [address] [place] [phone] 08/13/2020 Office Visit Endocrinology Diabetes & Tyler Gutierrez MD Metabolism [address] [place] [address] Health Maintenance Due Date Last Done Comments HEPATITIS C (HCV) SCREEN 1955 PNEUMOCOCCAL 0-64 YEARS COMBINED 1962 SERIES (1 of 3 - PCV13) DTaP,Tdap,and Td Vaccines (1 - 10/24/1975 Tdap) COLON CANCER SCREENING ANNUAL 2006 FIT/FOBT COLON CANCER SCREENING FIT DNA 2006 EVERY 3 YEARS COLON CANCER SCREENING 2006 SIGMOIDOSCOPY EVERY 5 YEARS COLONOSCOPY 2006 Colorectal Cancer Screening 2006 Zoster Recombinant Vaccine 2006 (SHINGRIX) (1 of 2) URINE MICROALBUMIN 02/01/2018 02/01/2017 CREATININE (SERUM) 10/25/2018 10/25/2017, 08/16/2017, 02/01/2017 LDL-C 11/22/2018 11/22/2017, 02/01/2017 Breast Cancer Screening 08/03/2019 08/02/2018, 11/25/2017 (MAMMOGRAM) EYE EXAM 09/14/2019 09/13/2018, 09/13/2017 HgA1C 06/26/2020 12/25/2019, 03/27/2019, 08/29/2018, Additional history exists FOOT EXAM 12/03/2020 12/04/2019, 12/04/2019, 04/04/2019, Additional history exists Depression Screening 03/27/2021 03/27/2020 INFLUENZA VACCINE Completed 02/13/2020, 02/15/2017 PAP SMEAR Discontinued documented as of this encounter Procedures Procedure Name Priority Date/Time Associated Comments Diagnosis LAB ONLY COVID Routine 04/04/2020 9:15 Pre-operative exam Res ults for this INTERPRETATION AM INFORMATION ASSURANCE procedure are in the results section. COVID-19 (ID NOW RAPID Routine 04/04/2020 9:15 Pre-operative exam Results for this TESTING) AM INFORMATION ASSURANCE procedure are i n the results section. documented in this encounter Results LAB ONLY COVID INTERPRETATION (04/04/2020 9:15 AM INFORMATION ASSURANCE) COVID DMT Interpretation/Recommendations: [facility] Interpretation SERVICES Molecular NAAT Tests for Active Infection with the CRISTOPHER S-CoV-2 Virus: This result indicates that t he patient has tested negative on one occasion for the SARS-CoV-2 virus that causes COVID-19 illness. This most likely indicates that the patient does not have an active infe ction with the SARS-CoV-2 vi julian. However, infection is not completely ruled out as the false negative rate for molecular NAAT testing using a nasopharyngeal sample can be up to 30%, mostly dependent on the timing of sample collect ion in relation to illness onset and any deficiencies in sampling techniques. If the patient continues to have persistent or worsening symptoms concerning for COVID-19 illnes s, a repeat NAAT test (PCR, Rapid ID Now, etc.) should be performed, at which time the SARS-CoV-2 virus - if present - may have reached a detectable viral load (usually peaking by the end of the first week of symptoms). Tests for IgM and/or IgG Antibodies to SARS-CoV-2 Viru s: Testing for IgM and IgG anti bodies 1-3 weeks after illness onset will indicate whether the patient has produced antibodies to the virus. At this time, it is not known if the production of antibodies - s pecifically IgG antibodies - indicates whether the patient is immune to future infections with the SARS-CoV-2 virus. Interpretation Result Comments: These interpretation comment s are based upon aggregate COVID-19 test results pooled from [facility]. They apply to the following tests offered at [facility] and assume the acceptable specimen type(s) were used: A. Tests for the Identification of SARS-CoV-2 RNA (Mol ecular NAAT Tests): - SARS-CoV-2 PCR assays including Turin Aptima, Turin Fusion, Smith RealTime, and Ovuline Xpert Xpress. - SARS-CoV-2 Rapid ID NOW by the ID NOW as say. B. Tests for the Identification of SARS-CoV-2 Antibodi es: - Chemiluminesce nt immunoassays including Access SARS-CoV-2 IgM (DXI 600), Dlyte.comS Mxrf-DQBQ-CmH-2 IgG (Vitros 5600 and Vitros 3600), and Smith SARS-CoV-2 IgG (BEAM SAW OPERATOR I System). These interpretations are au topopulated into [facility] based on computerized algorithms matching an interpretation code to the patient's set of test results, and a clinical pathologist evaluates the comments for accuracy. However, thes e comments do not consider testing a patient may have had outside of the [facility] system. If results for COVID-19 infection continue to be negative in the context of a suspected viral respiratory illness, i t is possible the patient may have an infection with another respiratory virus. Influenza testing and a respiratory pathogen panel if clinically indicated may be beneficial i n this setting. If there con tinues to be a high degree of clinical suspicion for COVID-19 illness despite multiple negative tests on nasopharyngeal specimens, then it may be necessary to test the patien t for the SARS-CoV-2 virus u sing lower respiratory tract samples (such as sputum, bronchoalveolar lavage fluid (BAL), tracheal aspirate, etc.). COVID Results SARS-CoV-2 Rapid ID NOW (no units) [facility] Date Value SERVICES 04/04/2020 Not Detected Specimen Swab - NASOPHARYNGEAL SWAB Performing Organization Address City/State/Zipcode Phone Number [facility] CLIA: [id number] [place] [address] [place] [address] COVID-19 (ID NOW RAPID TESTING) (04/04/2020 9:15 AM INFORMATION ASSURANCE) SARS-CoV-2 Rapid ID Not Detected Not Detected [facility] Specimen Swab - NASOPHARYNGEAL SWAB Narrative Performed At ID NOW COVID-19 Assay is an isothermal nucleic [facility] acid amplification test intended for the qualitative detection of nucleic acid from SARS-CoV-2 viral RNA in nasopharyngeal (SENIOR WEB ANALYST) specimens. It is used under Emergency Use Authorization (EUA) by FDA. The limit of detection (LOD) of the assay is 125 Genome Equivalents/mL. A positive result is indicative of the presence of SARS-CoV-2 RNA. Clinical correlation with patient history and other diagnostic information is necessary to determine patient infection status. A negative (Not Detected) result does not preclude SARS-CoV-2 infection. In patients with clinical symptoms and other tests that are consistent with SARS-CoV-2 infection, negative results should be treated as presumptive negative and a new specimen should be tested with alternative PCR molecular test. Invalid: Please collect a new specimen for repeat patient testing if clinically indicated. Performing Organization Address City/State/Zipcode Phone Number [facility] CLIA: [id number] [place] [address] [place] [address] documented in this encounter Visit Diagnoses Diagnosis Pre-operative exam - Primary Preoperative examination, unspecified documented in this encounter Additional Health Concerns Infection Onset Date Last Indicated Resolved Time COVID-19 Rule Out 04/04/2020 04/04/2020 04/04/2020 10: 41 AM INFORMATION ASSURANCE documented as of this encounter Insurance Payer Benefit Plan / Subscriber ID Effective Phone Address T ype Group Dates UNITED UHC MEDICARE [id number] 2019-Pres Med icare Adv HEALTHCARE COMPLETE ent PPO MEDICARE CHOICE ADVANTAGE KRISTY WAGNER [id number] 2016-Pres [address] Medica id HEALTHCARE [place] [id number] MANAGED MEDICAID [place], [place]ID [place] documented as of this encounter
--- OUTSIDE RECORDS SUMMARY | 2020-05-30 16:18 | XMS REPORT | Summary of Care ---
:1955 Author Organization [facility] Address [address] [place] [address] Care Team Providers Name Role Phone Suzie Carrion MD Unavailable Unavailable Jessica Easton Primary Care Provider Reason for Referral MRI/CAT Scan (Routine) Status Reason Specialty Diagnoses / Referred By Referred To Procedures Contact Contact Closed Diagnostic Diagnoses Mild intermittent asthma without complication Dyspnea on exertion Leonid Napoles DO Radiology Procedures CT LUNG NODULE CT THORAX WO CONTRAST [address] [place] [address] Reason for Visit MRI/CAT Scan (Routine) Status Reason Specialty Diagnoses / Referred By Referred To Procedures Contact Contact Closed Diagnostic Diagnoses Mild intermittent asthma without complication Dyspnea on exertion Leonid Napoles DO Radiology Procedures CT LUNG NODULE CT THORAX WO CONTRAST [address] [place] [address] Encounter Details Date Type Department Care Team Description 03/19/2020 Hospital Encounter [facility] Triston Napoles DO Arrived [place] [employer] [address] [place] [phone] Allergies Active Allergy Reactions Severity Noted Date Comments Ciprofloxacin Hives 01/07/2016 Codeine Other - See comments 01/07/2016 Slows h eart rate down Iodine Hives 01/07/2016 Levofloxacin Hives 01/07/2016 Morphine Hallucinations 01/07/2016 Nsaids (Non-Steroidal Other - See comments 01/07/2016 Patient states that Anti-Inflammatory Drug) its cause immune system issues documented as of this encounter (statuses as of 03/20/2020) Medications Medication Sig Dispensed Refills Start Date [...] 0 Active XR) 11 mg Tb24 daily. albuterol 90 Inhale 2 Puffs 8.5 g 11 06/01/2019 A ctive mcg/actuation every 6 (six) hours inhalerIndications: as needed for Mild intermittent Wheezing or asthma without Shortness of complication, Dyspnea Breath. 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 documented as of this encounter Last Filed Vital Signs Not on filedocumented in this encounter Plan of Treatment Date Type Specialty Care Team Description 03/27/2020 Office Visit Pulmonary Disease Leonid Napoles, DO [address] [place] [address] [phone] 04/08/2020 Office Visit Endocrinology Diabetes & Tyler Gutierrez MD Metabolism [address] [place] [address] [phone] Health Maintenance Due Date Last Done Comments [...] 11/25/2017 (MAMMOGRAM) EYE EXAM 09/14/2019 09/13/2018, 09/13/2017 INFLUENZA VACCINE (#1) 2020 02/15/2017 Depression Screening 06/01/2020 06/01/2019 HgA1C 06/26/2020 12/25/2019, 03/27/2019, 08/29/2018, Additional history exists FOOT EXAM 12/03/2020 12/04/2019, 12/04/2019, 04/04/2019, Additional history exists PAP SMEAR Discontinued documented as of this encounter Procedures Procedure Name Priority Date/Time Associated Diagnosis Comme nts CT LOW DOSE LUNG Routine 03/19/2020 9:12 Mild intermittent Re sults for this NODULE AM WORDPRESS DEVELOPER asthma without procedure are in complication the results Dyspnea on exertion section. CONSENT/REFUSAL FOR Routine 03/19/2020 8:50 DIAGNOSIS AND AM WORDPRESS DEVELOPER TREATMENT ASSIGNMENT OF Routine 03/19/2020 8:49 BENEFITS AM WORDPRESS DEVELOPER documented in this encounter Results CT LUNG NODULE (03/19/2020 9:12 AM WORDPRESS DEVELOPER) Specimen Impressions Performed At 1. Essentially unchanged small lung nodu les 03/08/2019 study. PACS/VR/DOSE 2. Asymmetrical soft tissue masslike gilberto nges are seen in the upper outer left breast. Bilateral mammography evalu ation with possible ultrasound evaluation recommended. Lung RADS Category 2-S. Recommendation: Continue with annual sc reening. Category 2: Negative screen - nodules with benign appe arance or behavior - continue annual screening in 12 months S modifier: Other clinically significant or potentially significant findings Narrative Performed At PROCEDURE: CT CHEST NON CONTRAST ? LUNG CANCER SCREENING. PACS/VR/DOSE CLINICAL INDICATION: Lung nodule, <1cm, mod-high risk COMPARISON: None. TECHNIQUE: Low dose helical CT was acquired from lung apices to bases was obtained and reconstructed at 1 mm, without intravenou s contrast. MIP and coronal & sagittal MPR images were generated and revie wed. (DFOV = 40 cm) FINDINGS: Comparison is made with 2018 study. Lower neck/thyroid: Lower cervical ACDF surgical devi es. Thyroid gland is very small in size. Lungs: Previously described 4 mm nodule, 2 mm nodule in the right upper lung, 4 mm nodule in the medial right mi ddle lobe and 4 mm pleural-based nodule in the left upper lung are all es sentially unchanged. Possible calcified pleural-based granulo ma in the left lower lung (169:295), unchanged. Central airway: Unremarkable. Pleura: No pleural effusion, thickening or pneumothorax. Thoracic aorta and great vessels: Classic arch anatomy . Normal in diameter. Mild atherosclerotic disease affects the visualized aorta. Pulmonary arteries: Unremarkable. Heart and pericardium: Minimal calcifications noted in LAD coronary artery. Unremarkable cardiac morphology and mor cardium. Lymph nodes: Subcentimeter scattered lym ph nodes are unchanged. Mediastinum: Unremarkable. Thoracic spine and chest wall: Unremarkable, with norm al thoracic vertebral body heights. Other Lines/Tubes/Devices/Hardware: None Visualized upper abdomen: Postoperative changes around gastroesophageal junction. Short sliding type hiatal hernia suspected. S/P cholecystectomy. Procedure Note [facility], Radiant Results Inft User - 2019 9:41 AM WORDPRESS DEVELOPER PROCEDURE: CT CHEST NON CONTRAST ? LUNG CANCER SCREENING. CLINICAL INDICATION: Lung nodule, <1cm, mod-high risk COMPARISON: None. TECHNIQUE: Low dose helical CT was acqui red from lung apices to bases was obtained and reconstructed at 1 mm, with out intravenous contrast. MIP and coronal & sagittal MPR images were gener ated and reviewed. (DFOV = 40 cm) FINDINGS: Comparison is made with 2018 study. Lower neck/thyroid: Lower cervical ACDF surgical changes. Thyroid gland is very small in size. Lungs: Previously described 4 mm nodule, 2 mm nodule in the right upper lung, 4 mm nodule in the medial right mi ddle lobe and 4 mm pleural-based nodule in the left upper lung are all es sentially unchanged. Possible calcified pleural-based granulo ma in the left lower lung (169:295), unchanged. Central airway: Unremarkable. Pleura: No pleural effusion, thickening or pneumothorax. Thoracic aorta and great vessels: Classi c arch anatomy. Normal in diameter. Mild atherosclerotic disease affects the visualized aorta. Pulmonary arteries: Unremarkable. Heart and pericardium: Minimal calcifica tions noted in LAD coronary artery. Unremarkable cardiac morphology and mor cardium. Lymph nodes: Subcentimeter scattered lym ph nodes are unchanged. Mediastinum: Unremarkable. Thoracic spine and chest wall: Unremarka ble, with normal thoracic vertebral body heights. Other Lines/Tubes/Devices/Hardware: None Visualized upper abdomen: Postoperative changes around gastroesophageal junction. Short sliding type hiatal [place] suspected. S/P cholecystectomy. IMPRESSION 1. Essentially unchanged small lung nodu les 03/08/2019 study. 2. Asymmetrical soft tissue masslike gilberto nges are seen in the upper outer left breast. Bilateral mammography evalu ation with possible ultrasound evaluation recommended. Lung RADS Category 2-S. Recommendation: Continue with annual sc reening. Category 2: Negative screen - nodules wi th benign appearance or behavior - continue annual screening in 12 months S modifier: Other clinically significant or potentially significant findings Performing Organization Address City/State/Zipcode Phone Number PACS/VR/DOSE documented in this encounter Visit Diagnoses Diagnosis Mild intermittent asthma without complic ation Unspecified asthma Dyspnea on exertion Other dyspnea and respiratory abnormalit y documented in this encounter Insurance Payer Benefit Plan / Subscriber ID Effective Phone Address T ype Group Dates UNITED UHC MEDICARE [id number] 2019-Pres Med icare Adv HEALTHCARE COMPLETE ent PPO MEDICARE CHOICE ADVANTAGE KRISTY WAGNER [id number] 2016-Pres [address] Medica id HEALTHCARE [place]ARE [place] [id number] MANAGED MEDICAID [place], [place]ID [place] documented as of this encounter
--- OUTSIDE RECORDS SUMMARY | 2020-05-30 16:18 | XMS REPORT | Summary of Care ---
:[address] [facility] - Health Address [address] [place] [address] Care Team Providers Name Role Phone Suzie Carrion MD Unavailable Unavailable Jessica Easton Primary Care Provider Encounter Details Date Type Department Care Team Description 03/27/[address] [facility] Doctor Unassigned, No [address] [facility] Name [place] [phone] Allergies Active Allergy Reactions Severity Noted Date Comments Ciprofloxacin Hives 01/07/2016 Codeine Other - See comments 01/07/2016 Slows h eart rate down Iodine Hives 01/07/2016 Levofloxacin Hives 01/07/2016 Morphine Hallucinations 01/07/2016 Nsaids (Non-Steroidal Other - See comments 01/07/2016 Patient states that Anti-Inflammatory Drug) its cause immune system issues documented as of this encounter (statuses as of 04/07/2020) Medications Medication Sig Dispensed Refills Start Date [...] as of this encounter (statuses as of 04/07/2020) Active Problems Problem Noted Date Osteopenia of left hip 08/16/2017 Osteopenia of spine 08/16/2017 Other specified hypothyroidism 04/26/2017 Type 2 diabetes mellitus with complication, without lo ng-term current use 04/26/2017 of insulin NAOMI (obstructive sleep apnea) 04/26/2017 Prediabetes 02/17/2016 Low IGF-1 level 01/20/2016 documented as of this encounter (statuses as of 04/07/2020) Resolved Problems Problem Noted Date Resolved Date 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 documented as of this encounter Last Filed Vital Signs Not on filedocumented in this encounter Plan of Treatment Date Type Specialty Care Team Description 04/08/2020 Office Visit Endocrinology Diabetes & Tyler Gutierrez MD [address] [address] [phone] 04/08/2020 Corn Sheller Operator Visit Sleep Disorder Diagnostic Nader Leiva MD [address] [place] [phone] 04/21/2020 Office Visit Cardiology Addy Vilchis MD [address] [place] [address] [phone] 06/27/2020 Office Visit Pulmonary Disease Leonid Napoles DO [address] [place] [phone] Health Maintenance Due Date Last Done Comments [...] Name Priority Date/Time Associated Diagnosis Comme nts AUTHORIZATION TO RELEASE Routine 03/27/2020 12:01 AM PHI TO [facility] MANAGER SUPPLY CHAIN PLANNING documented in this encounter Results Not on filedocumented in this encounter Additional Health Concerns Infection Onset Date Last Indicated Resolved Time COVID-19 Rule Out 04/04/2020 04/04/2020 04/04/2020 10: 41 AM MANAGER SUPPLY CHAIN PLANNING documented as of this encounter Insurance Payer Benefit Plan / Subscriber ID Effective Phone Address T ype Group Dates [facility] MEDICARE [id number] 2019-Pres Med icare Adv HEALTHCARE COMPLETE ent PPO MEDICARE CHOICE ADVANTAGE KRISTY WAGNER [id number] 2016-Pres [address] Medica id HEALTHCARE [place]ARE [place] [id number] MANAGED MED[place]ID [place], [place] documented as of this encounter
--- OUTSIDE RECORDS SUMMARY | 2020-05-30 16:18 | XMS REPORT | Summary of Care ---
:1955 Author Organization [facility] Address [address] [place] [address] Care Team Providers Name Role Phone Suzie Carrion MD Unavailable Unavailable Jessica Easton Primary Care Provider Reason for Referral (Routine) Status Reason Specialty Diagnoses / Referred By Referred To Procedures Contact Contact New Request Sleep Disorder Diagnoses Mild intermittent asthma without complication Dyspnea on exertion Leonid Napoles, Diagnostic Procedures HOME SLEEP TEST Preferred location for setup and teaching: [facility] [address] [place] [address] Reason for Visit Reason Comments Follow-up Asthma Encounter Details Date Type Department Care Team Description 03/27/[address] [facility] ADC Leonid Napoles DO NAOMI (obstructive sleep apnea) (Primary D x); Pul[facility] Clinic [address] [place] [address] Mild intermittent asthma wit hout complication; [address] [place] [address] Dr. [facility] Dyspnea on exertion [address] [place] [phone] Allergies Active Allergy Reactions Severity Noted Date Comments Ciprofloxacin Hives 01/07/2016 Codeine Other - See comments 01/07/2016 Slows h eart rate down Iodine Hives 01/07/2016 Levofloxacin Hives 01/07/2016 Morphine Hallucinations 01/07/2016 Nsaids (Non-Steroidal Other - See comments 01/07/2016 Patient states that Anti-Inflammatory Drug) its cause immune system issues documented as of this encounter (statuses as of 03/27/2020) Medications Medication Sig Dispensed Refills Start End Date Status Date citalopram Take 40 mg by 0 Activ e (CELEXA) 20 mg mouth daily. tablet alirocumab inject under 0 Activ e (PRALUENT [...] mcg/actuation each nostril 8 nasal spray daily. foLIC acid 1 mg TAKE 1 TABLET BY 1 Active tablet MOUTH ONCE DAILY 9 RESTASIS 0.05 % INSTILL 1 DROP 3 Active ophthalmic drops INTO EACH EYE 9 TWICE DAILY Docusate Sodium Take 1 tablet by 0 Active 100 mg tablet mouth. tofacitinib Take 11 mg by 0 Acti ve (XELJANZ XR) 11 mg mouth daily. Tb24 citalopram 40 mg Take 40 mg by [...] asthma without Breath. complication, Dyspnea on exertion albuterol 90 Inhale 2 Puffs 8.5 g 11 03/27/20 Di scontinued mcg/actuation every 6 (six) 0 20 (R eorder) inhalerIndications hours as needed : Mild for Wheezing or intermittent Shortness of asthma without Breath. complication, Dyspnea on exertion albuterol 90 Inhale 2 Puffs 8.5 g 11 03/27/20 Di scontinued mcg/actuation every 6 (six) 0 20 (R eorder) inhalerIndications hours as needed : Mild for Wheezing or intermittent Shortness of asthma without Breath. complication, Dyspnea on exertion documented as of this encounter (statuses as of 03/27/2020) Active Problems Problem Noted Date Osteopenia of left hip 08/16/2017 Osteopenia of spine 08/16/2017 Other specified hypothyroidism 04/26/2017 Type 2 diabetes mellitus with complication, without lo ng-term current use 04/26/2017 of insulin NAOMI (obstructive sleep apnea) 04/26/2017 Prediabetes 02/17/2016 Low IGF-1 level 01/20/2016 documented as of this encounter (statuses as of 03/27/2020) Resolved Problems Problem Noted Date Resolved Date Growth hormone deficiency 02/17/2016 08/29/2018 documented as of this encounter (statuses as of 03/27/2020) Immunizations Name Administration Dates Next Due Influenza [...] been in contact with No / Unsure 03/27/2020 9:21 AM INCIDENT RESPONSE SPECIALIST someone who was confirmed or suspected to have Coronavirus / COVID-19? documented as of this encounter Last Filed Vital Signs Vital Sign Reading Time Taken Comments Blood Pressure 133/77 03/27/2020 9:35 AM INCIDENT RESPONSE SPECIALIST Pulse 98 03/27/2020 9:35 AM INCIDENT RESPONSE SPECIALIST Temperature - - Respiratory Rate 18 03/27/2020 9:35 AM INCIDENT RESPONSE SPECIALIST Oxygen Saturation 95% 03/27/2020 9:35 AM INCIDENT RESPONSE SPECIALIST Inhaled Oxygen Concentration - - Weight 82.6 kg (182 lb) 03/27/2020 9:35 AM INCIDENT RESPONSE SPECIALIST Height 157.5 cm (5' 2") 03/27/2020 9:35 AM INCIDENT RESPONSE SPECIALIST Body Mass Index 33.29 03/27/2020 9:35 AM INCIDENT RESPONSE SPECIALIST documented in this encounter Progress Notes Leonid Napoles, - 03/27/2020 9:20 AM CST [facility] Chief Complaint: Follow up for asthma History of Present Illness: Kathy Ledesma is a 64 year old female here for follow up of dyspnea/asthma, and lung nodule. With regards to dyspnea, has been doing okay, gets short of breath going about 50-75 feet. Improved with rest and inhalers. Worse since the weather changes. Has lost about 5 pounds. Is fatigued all the time. Does snore at night. Had previous sleep study that only showed mild sleep apnea. Past Medical History: has a past medical history of Abnormal uterine bleeding, Anemia, Anxiety, Asthma, CVA (cerebral vascular accident), Depression, Diabetes mellitus, Endometriosis, Growth hormone deficiency (human), Heart murmur, Hypothyroid, Hypothyroid, Obstructive sleep apnea, Osteopenia (2017), Plantar fasciitis of left foot, Rheumatic fever, and Spinal stenosis. She also has no past medical history of Anesthesia complication, Autoimmune disorder, Blood dyscrasia, Breast disorder, Cancer, Clotting disorder, Coronary artery disease, Female infertility, Genital herpes, Genital warts, Hormone disorder, Hypertension, Kidney disease, Leiomyoma of uterus, Liver disease, Menstrual disorder, Osteoporosis, Pap smear abnormality of cervix, PID (pelvic inflammatory disease), Rh incompatibility, Seizures, Sickle cell anemia, STD (sexually transmitted disease), Substance abuse, Superficial thrombophlebitis, Transfusion history, Trauma, Tuberculosis, or Urinary incontinence. Past Surgical History: has a past surgical history that includes cholecystectomy; berkley fundoplication; bone spur excision; hysterectomy (2001); salpingo-oophorectomy (2001); extracapsular cataract extraction with intraocular lens implant; upper arm/elbow surgery unlisted; implant/hardware/ortho infection culture(aerobic/anaerobic); and radical hysterectomy. Family History: family history includes Arthritis in her mother; Bone Cancer in her father; Diabetesin her brother, brother, and father; Hypertension in her father and mother; Kidney Cancer in her father; Lung Cancer in her father; Other - see comments in her mother; Stomach Cancer in her maternal aunt and maternal grandmother. Social History: reports that she has never smoked. She has never used smokeless tobacco. She reports current alcohol use. She reports that she does not use drugs. Review of Systems: Review of Systems Constitutional: Negative. HENT: Negative. Eyes: Negative. Respiratory: Positive for cough and shortness of breath. Cardiovascular: Negative. Gastrointestinal: Negative. Genitourinary: Negative. Musculoskeletal: Negative. Skin: Negative. Neurological: Negative. Psychiatric/Behavioral: Negative. Endocrine: Endocrine negative Objective: BP 133/77 (BP Location: Left arm, Patient Position: Sitting, BP CUFF SIZE: Adult Medium) | Pulse 98 | Resp 18 | Ht 5' 2" (1.575 m) | Wt 182 lb (82.6 kg) | LMP 05/16/1999 (Approximate) | SpO2 95%| BMI 33.29 kg/m Physical Exam Constitutional: She is oriented to person, place, and time. She appears well- developed and well-nourished. HENT: Head: Normocephalic and atraumatic. Eyes: Conjunctivae and EOM are normal. Neck: Normal range of motion. Neck supple. Cardiovascular: Normal rate and regular rhythm. Pulmonary/Chest: Effort normal and breath sounds normal. Abdominal: Soft. Bowel sounds are normal. Musculoskeletal: Normal range of motion. Neurological: She is alert and oriented to person, place, and time. Skin: Skin is warm and dry. Psychiatric: She has a normal mood and affect. Her behavior is normal. Judgment and thought content normal. Labs/Studies: PFT - moderate restriction with high IC/ERV ratio and supra normal [facility] CT Thorax 2018 - no evidence of ILD, lung nodules up to [address] thorax 2019 essentially unchanged small lung nodules Assessment: ICD-10-CM ICD-9-CM 1. NAOMI (obstructive sleep apnea) G47.33 327.23 2. Mild intermittent asthma without complication J45.20 493.90 3. Dyspnea on exertion R06.00 786.09 Asthmatic component but dyspnea likely multifactorial including deconditioning and obesity. Plan: 1. Continue with Spiriva and albuterol, try to use albuterol prior to planned exercise 2. Continue with exercise regimen 3. Continue with weight loss, encouraged about 5 pound weight loss so far 4. Repeat sleep study as we would likely start treatment given symptoms 5. Follow up with PCP for breast abnormalities noted on CT scan documented in this encounter Plan of Treatment Date Type Specialty Care Team Description 04/08/2020 Office Visit Endocrinology Diabetes & Tyler Gutierrez MD Metabolism [address] [place], [place] [id number] Name Type Priority Associated Diagnoses Order S chedule HOME SLEEP TEST PROCEDURES Routine Mild intermittent asthma Ordered: 03/27/2020 Preferred location without compl ication for setup and Dyspnea on exertion teaching: [facility] Health Maintenance Due Date Last Done Comments [...] filedocumented in this encounter Visit Diagnoses Diagnosis NAOMI (obstructive sleep apnea) - Primary Obstructive sleep apnea (adult) (pediatr ic) Mild intermittent asthma without complic ation Unspecified asthma Dyspnea on exertion Other dyspnea and respiratory abnormalit y documented in this encounter Insurance Payer Benefit Plan / Subscriber ID Effective Phone Address T ype Group Dates UNITED UHC MEDICARE [id number] 2019-Pres Med icare Adv HEALTHCARE COMPLETE ent PPO MEDICARE CHOICE ADVANTAGE KRISTY WAGNER [id number] 2016-Pres [address] Medica id HEALTHCARE - [place]ARE [place] [id number] MANAGED MEDICAID [place], [place] documented as of this encounter
--- OUTSIDE RECORDS SUMMARY | 2020-05-30 16:18 | XMS REPORT | Summary of Care ---
:1955 Author Organization [facility] Address [address] [place] [address] Care Team Providers Name Role Phone Suzie Carrion MD Unavailable Unavailable Jessica Easton Primary Care Provider Reason for Referral (Routine) Status Reason Specialty Diagnoses / Referred By Referred To Procedures Contact Contact New Request Sleep Disorder Diagnoses Mild intermittent asthma without complication Dyspnea on exertion Leonid Napoles, Diagnostic Procedures HOME SLEEP TEST Preferred location for setup and teaching: [facility] [address] [place] [address] Reason for Visit Reason Comments Follow-up Asthma Encounter Details Date Type Department Care Team Description 03/27/2020 Office Visit [facility] ADC Leonid Napoles DO NAOMI (obstructive sleep apnea) (Primary D x); Pulmonary Clinic [address] [place] [address] Mild intermittent asthma wit hout complication; [address] [place] [address] Dr[address] [facility] Dyspnea on exertion [address] [place] [phone] Allergies Active Allergy Reactions Severity Noted Date [...] with No / Unsure 03/27/2020 9:21 AM PART TIME RECEPTIONIST someone who was confirmed or suspected to have Coronavirus / COVID-19? documented as of this encounter Last Filed Vital Signs Vital Sign Reading Time Taken Comments Blood Pressure 133/77 03/27/2020 9:35 AM PART TIME RECEPTIONIST Pulse 98 03/27/2020 9:35 AM PART TIME RECEPTIONIST Temperature - - Respiratory Rate 18 03/27/2020 9:35 AM PART TIME RECEPTIONIST Oxygen Saturation 95% 03/27/2020 9:35 AM PART TIME RECEPTIONIST Inhaled Oxygen Concentration - - Weight 82.6 kg (182 lb) 03/27/2020 9:35 AM PART TIME RECEPTIONIST Height 157.5 cm (5' 2") 03/27/2020 9:35 AM PART TIME RECEPTIONIST Body Mass Index 33.29 03/27/2020 9:35 AM PART TIME RECEPTIONIST documented in this encounter Progress Notes Leonid Napoles, - 03/27/2020 9:20 AM CST [facility] Interventional Pulmonology Clinic Chief Complaint: Follow up [...] Diabetes & Tyler Gutierrez MD Metabolism [address] [place], [place] [id number] Name Type Priority Associated Diagnoses Order S chedule HOME SLEEP TEST PROCEDURES Routine Mild intermittent asthma Ordered: 03/27/2020 Preferred location without compl ication for setup and Dyspnea on exertion teaching: [facility] Health Maintenance Due Date Last Done [...] T ype Group Dates UNITED UHC MEDICARE [id number] 2019-Pres Med icare Adv HEALTHCARE COMPLETE ent PPO MEDICARE CHOICE ADVANTAGE KRISTY WAGNER [id number] 2016-Pres [address] Medica id HEALTHCARE - [place]CARE [place] [id number] MANA[place]ED MED[place]ID [place], [place] documented as of this encounter
--- OUTSIDE RECORDS SUMMARY | 2020-05-30 16:18 | XMS REPORT ---
:1955 Author Organization [facility] Address [address] [place], [place] [place] [address] Care Team Providers Name Role Phone Gus Easton Unavailable [phone] PROBLEMS Type Condition ICD9-CM [id number] Onset Condition SNOMED Code Notes Code Code Dates Status Problem Migraine G43.909 Active 47256729 Problem Diabetic neuropathy E11.40 Active 249984804 Problem Cataract H26.9 Active 409969855 Problem Depression F32.9 Active 814316863 Problem Ecchymosis R58 Active 664958415 Problem Asthma J45.909 Active 260429202 Problem Hypothyroidism E03.9 Active 17479139 Problem Fatty liver K76.0 Active 962869225 disease, nonalcoholic Problem Spinal stenosis of M48.07 Active 29324384 lumbosacral region Problem History of CVA with I69.30 Active 873408616 residual deficit Problem Degenerative disc M50.30 Active 27602966 disease, cervical Problem Fibromyalgia M79.7 Active 705317011 Problem Gastroesophageal K21.9 Active 064721008 reflux disease Problem Osteoarthritis M19.90 Active 166378866 Problem Vitamin B 12 E53.8 Active 26566300 deficiency Problem Hyperlipidemia, E78.2 Active 378937973 mixed Problem 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 47430391 lip Problem Acquired E03.9 Active 804341453 hypothyroidism Problem Mixed E78.2 Active 220279901 hyperlipidemia Problem Chronic obstructive J44.9 Active 60761590 pulmonary disease, unspecified COPD type Problem Generalized R10.84 Active 056284895 abdominal pain Problem Controlled type 2 E11.9 Active 613709110 diabetes mellitus without complication, without long-term current use of insulin Problem Moderate persistent J45.40 Active 853835457 asthma without complication Problem Seasonal allergies J30.2 Active 012490310 Problem Depression with F41.8 Active 66799015 anxiety Problem Growth hormone E23.0 Active 429929432 deficiency Problem Morbid (severe) E66.01 Active 023925201 obesity due to excess calories Problem Diabetes E11.9 Active 229787684 Problem History of total Z96.641 Active 218168500257 right hip replacement Problem COPD (chronic J44.9 Active 26362176 obstructive pulmonary disease) Problem Allergic rhinitis J30.9 Active 08503889 Problem Primary M16.11 Active 633999620 osteoarthritis of right hip Problem Arthritis with L40.50 Active 909317999 psoriasis Problem Constipation, K59.00 Active 27931469 unspecified constipation type Problem Body mass index Z68.36 Active 674826868 (BMI) 36.0-36.9, adult ALLERGIES Allergen (clinical drug Drug/Non Drug Allergy Reaction Allergy Type Onset Date Status ingredient) documented on EMR codeine codeine Unknown Drug Allergy Active Iodine(NDC Unknown Drug Allergy Active Code:32965-27666) NSAIDS Unknown Drug Allergy Active morphine MORPHINE Unknown Drug Allergy Active ENCOUNTERS from 1955 to 2020-04-16 Encounter Location Date Provider Diagnosis [facility] [address] [facility] [address], [place] [address] IMMUNIZATIONS Vaccine Route Administration Date Status Afluria single dose IM Intramuscular Feb 20, 2020 Administere d Kenalog (Triamcinolone) IM Intramuscular August 18, 2018 Adminis tered SOCIAL HISTORY Tobacco Use: Social History Observation Description Date Details (start date - stop date) Never Smoker Sex Assigned At : Social History Observation Description Sex Assigned At Unknown PHQ9 Question Answer Notes Little interest or pleasure in doing things More than half t he days Feeling down, depressed, or hopeless Not at all Trouble falling or staying asleep or sleeping too much Not a t all Feeling tired or having little energy More than half the day s Poor appetite or overeating Not at all Feeling bad about yourself, or that you are a failure, Not a t all or have let yourself or your family down Trouble concentrating on things, such as reading the Several days newspaper or watching television Moving or speaking so slowly that other people could Not at all have noticed; or the opposite, being so fidgety or restless that you have been moving around a lot more than usual Total Score 5 Interpretation Mild Depression Thoughts that you would be better off or of Not at all hurting yourself in some way Alcohol Screen Question Answer Notes Did you have a drink containing alcohol in the past Yes year? Points 1 Interpretation Negative How many drinks did you have on a typical day when 1 or 2 (0 points) you were drinking in the past year? How often did you have a drink containing alcohol in Monthly or less (1 point) the past year? Tobacco Use/Smoking Question Answer Notes Are you a never smoker REASON FOR REFERRAL No Information VITAL SIGNS No information MEDICATIONS Medication SIG (Take, Route, Notes Start Date End Date Status Frequency, Duration) Vitamin D Active Aspir-81 81 MG 1 tablet Orally Once a Active day blood glucose test strip one twice a day for 90 Active n/s days Levothyroxine Sodium 112 1 tablet on an empty Active MCG stomach in the morning Orally Once a day Citalopram Hydrobromide take one tablet by Active 40MG mouth once daily Orally Once a day for 90 days Lancets Super Thin n/s one finger stick twice Active a day for 30 days Alcohol Prep Pads as directed Active Folic Acid 1 MG TAKE 1 TABLET BY MOUTH Active ONCE DAILY Oral Praluent 75 MG/ML Inject 1 ml Active Subcutaneous every 2 weeks for 28 True Metrix Blood USE 1 STRIP TO CHECK Active Glucose Test - GLUCOSE TWICE DAILY for 90 Albuterol Sulfate HFA 2 puffs as needed Dec, Not-Taking 108 (90 Base) MCG/ACT Inhalation every 6 hrs for 30 days Albuterol Sulfate (5 1 ml as needed Active MG/ML) 0.5% Inhalation every 6 hrs Claritin 10 MG 1 tablet Orally Once a Active day Glucometer n/s one n/s use as Active directed for 90 days PROCEDURES No Information RESULTS No Results REASON FOR VISIT Medication Request MEDICAL (GENERAL) HISTORY Type Description Date Medical History Allergic rhinitis Medical History Depression Medical History Diabetes Medical History Migraine Medical History Hypothyroidism Medical History Vitamin B 12 deficiency Medical History Asthma Medical History COPD (chronic obstructive pulmonary dise ase) Medical History Fibromyalgia Medical History Spinal stenosis of lumbosacral region Medical History Hyperlipidemia, mixed Medical History Diabetic neuropathy Medical History Osteoarthritis Medical History Cataract Medical History Degenerative disc disease, cervical Medical History Benign neoplasm of lip Medical History Gastroesophageal reflux disease Medical History Ecchymosis Surgical History right elbow Surgical History kenna. feet Surgical History gallbladder Surgical History hernia removed from foot Surgical History kenna knee-no metal Surgical History left shoulder-no metal Surgical History esophagus Surgical History t-spine/metal Surgical History kenna. cataracts Surgical History s/p Right Total Hip Replacement 10/2019 Goals Section No Information Health Concerns No Information MEDICAL EQUIPMENT No Information MENTAL STATUS No Information FUNCTIONAL STATUS No Information ASSESSMENTS No Information PLAN OF TREATMENT Medication Medication Name Sig Start Date Stop Date Citalopram Hydrobromide 40MG take one tablet by mouth once daily Orally Once a day for 90 days Albuterol Sulfate (5 MG/ML) 0.5% 1 ml as needed Inhalation every 6 hrs Folic Acid 1 MG TAKE 1 TABLET BY MOUTH ONCE DAILY Oral Levothyroxine Sodium 112 MCG 1 tablet on an empty stomach in the morning Orally Once a day Praluent 75 MG/ML Inject 1 ml Subcutaneous every 2 weeks for 28 Next Appt Details Provider Name:Gus Easton, 2020-05-20 0 8:00:00 AM, [address], [facility] [address], [place], [address], Provider Name:Gus Easton, 2020-05-27 0 8:00:00 AM, [address], [address], [place], [address], Insurance Providers Payer Name Payer Payer Insured Patient Coverage Coverage End Address Phone Name Relationship to Start Date Ayden e Insured [facility] [phone] Bandar Ledesma [address] [facility] [id number] [place] [id number]
--- OUTSIDE RECORDS SUMMARY | 2020-05-30 16:18 | XMS REPORT | Summary of Care ---
:1955 Author Organization [facility] Address [address] [place] [address] Care Team Providers Name Role Phone Suzie [...] [address] [place] [address] (Routine) Status Reason Specialty Diagnoses / Referred By Referred To Procedures Contact Contact New Request Cardiology Diagnoses OBRIEN (dyspnea on exertion) Dyslipidemia Type 2 diabetes mellitus with complication, without long-term current use of insulin Vilchis, Sendil Procedures CARDIO LOOP MONITOR MD Marycarmen [address] [place] [address] Reason for Visit Reason Comments New Patient Establish Care Ekg Done today in office Encounter Details Date Type Department Care Team Description 04/21/2020 Office Visit [facility] Vilchis, Sendil OBRIEN (dyspnea on exertion) (Primary Dx); Cardiology- Meeta Conroy MD Dyslipidemia; [address] Type 2 diabetes mellitus with complicati on, without long-term current use of insulin; Drive, [address] Nonrheumatic mitral valve regurgitation; Meeta, [place], [place] History of TIA (transient ischemic attack); [id number] Palpitations; [phone] Family history of ASCVD (arterioscleroti c cardiovascular [...] with No / Unsure 04/23/2020 8:55 AM WOOD COATER someone who was confirmed or suspected to have Coronavirus / COVID-19? documented as of this encounter Last Filed Vital Signs Vital Sign Reading Time Taken Comments Blood Pressure 119/72 04/21/2020 2:38 PM WOOD COATER Pulse 88 04/21/2020 2:38 PM WOOD COATER Temperature - - Respiratory Rate 19 04/21/2020 2:38 PM WOOD COATER Oxygen Saturation 94% 04/21/2020 2:38 PM WOOD COATER Inhaled Oxygen Concentration - - Weight 83.1 kg (183 lb 3.2 oz) 04/21/2020 2:38 PM WOOD COATER Height 157.5 cm (5' 2") 04/21/2020 2:38 PM WOOD COATER Body Mass Index 33.51 04/21/2020 2:38 PM WOOD COATER documented in this encounter Progress Notes Addy Vilchis MD - 04/21/2020 2:30 PM CST [facility] Cardiology Consult Note Patient: Kathy Ledesma [...] file Gets together: Not on file Attends yarsani service: Not on file Active member of [...] Rfl: 1 Blood-Glucose Meter (ONETOUCH VERIO FLEX) [facility] [place], Use as directed to check blood sugar [...] feel free to call our office at [phone]. I would be happy to be of further assistance for Kathy Ledesma wellbeing. Tk Vilchis MD Farm Operator, Division of Cardiology [facility] documented in this encounter Plan of Treatment Date Type Specialty Care Team Description 06/27/2020 Office Visit Pulmonary Disease Leonid Napoles, [address] [place] [phone] 07/21/2020 Office Visit Cardiology Addy Vilchis MD [address] [place] [phone] 08/13/2020 Office Visit Endocrinology Diabetes & Tyler Gutierrez MD Metabolism [address] [place] [address] Name Type Priority Associated Diagnoses Order S chedule EKG-12 LEAD ROUTINE HEART STATION Routine OBIREN (dyspnea on Orde red: 04/21/2020 exertion) Dyslipidemia [...] T ype Group Dates [employer] MEDICARE [id number] 2019-Pres Med icare Adv HEALTHCARE COMPLETE ent PPO MEDICARE CHOICE ADVANTAGE KRISTY WAGNER [id number] 2016-Pres [address] Medica id HEALTHCARE - HEALTHCARE ent [id number] MANAGED MEDICAID [place], [place] documented as of this encounter
--- OUTSIDE RECORDS SUMMARY | 2020-05-30 16:19 | XMS REPORT | Summary of Care ---
:1955 Author Organization [facility] - Health Address [address] [place] [address] Care Team Providers Name Role Phone Suzie Carrion MD Unavailable Unavailable Jessica Easton Primary Care Provider Encounter Details Date Type Department Care Team Description 04/21/2020 Orders Only [facility] Doctor Unassigned, No [address] [facility] Name [place] [id number] Allergies Active Allergy Reactions Severity Noted Date Comments Ciprofloxacin Hives 01/07/2016 Codeine Other - See comments 01/07/2016 Slows h eart rate down Iodine Hives 01/07/2016 Levofloxacin Hives 01/07/2016 Morphine Hallucinations 01/07/2016 Nsaids (Non-Steroidal Other - See comments 01/07/2016 Patient states that Anti-Inflammatory Drug) its cause immune system issues documented as of this encounter (statuses as of 04/29/2020) Medications Medication Sig Dispensed Refills Start Date [...] as of this encounter (statuses as of 04/29/2020) Active Problems Problem Noted Date Osteopenia of left hip 08/16/2017 Osteopenia of spine 08/16/2017 Other specified hypothyroidism 04/26/2017 Type 2 diabetes mellitus with complication, without lo ng-term current use 04/26/2017 of insulin NAOMI (obstructive sleep apnea) 04/26/2017 Prediabetes 02/17/2016 Low IGF-1 level 01/20/2016 documented as of this encounter (statuses as of 04/29/2020) Resolved Problems Problem Noted Date Resolved Date 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 documented as of this encounter Last Filed Vital Signs Not on filedocumented in this encounter Plan of Treatment Date Type Specialty Care Team Description 06/27/2020 Office Visit Pulmonary Disease Leonid Napoles, [address] [place] [phone] 07/21/2020 Office Visit Cardiology Addy Vilchis MD [address] [address] 08/13/2020 Office Visit Endocrinology Diabetes & Tyler Gutierrez MD Metabolism [address] [place] [address] [phone] Health Maintenance Due Date Last Done Comments [...] Priority Date/Time Associated Diagnosis Comme nts AUTHORIZATION FOR RELEASE Routine 04/21/2020 12:01 AM OF PHI 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
--- OUTSIDE RECORDS SUMMARY | 2020-05-30 16:19 | XMS REPORT ---
:1955 Author Organization [facility] Address [address] [place], [place]. [address] [place] [address] Care Team Providers Name Role Phone Gus Easton Unavailable [phone] PROBLEMS Type Condition ICD9-CM [id number] Onset Condition SNOMED Code Notes Code Code Dates Status Problem Migraine G43.909 Active 58890415 Problem Diabetic neuropathy E11.40 Active 960573998 Problem Cataract H26.9 Active 249083877 Problem Depression F32.9 Active 811647697 Problem Ecchymosis R58 Active 635074720 Problem Asthma J45.909 Active 056755719 Problem Hypothyroidism E03.9 Active 79289069 Problem Fatty liver K76.0 Active 931421966 disease, nonalcoholic Problem Spinal stenosis of M48.07 Active 74578214 lumbosacral region Problem History of CVA with I69.30 Active 298704918 residual deficit Problem Degenerative disc M50.30 Active 56471955 disease, cervical Problem Fibromyalgia M79.7 Active 598282759 Problem Gastroesophageal K21.9 Active 353972352 reflux disease Problem Osteoarthritis M19.90 Active 765441893 Problem Vitamin B 12 E53.8 Active 23286551 deficiency Problem Hyperlipidemia, E78.2 Active 884709478 mixed Problem 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 48002070 lip Problem Acquired E03.9 Active 964893754 hypothyroidism Problem Mixed E78.2 Active 802313169 hyperlipidemia Problem Chronic obstructive J44.9 Active 38475542 pulmonary disease, unspecified COPD type Problem Generalized R10.84 Active 302306770 abdominal pain Problem Controlled type 2 E11.9 Active 894024212 diabetes mellitus without complication, without long-term current use of insulin Problem Moderate persistent J45.40 Active 371611597 asthma without complication Problem Seasonal allergies J30.2 Active 248003301 Problem Depression with F41.8 Active 82189247 anxiety Problem Growth hormone E23.0 Active 427004080 deficiency Problem Morbid (severe) E66.01 Active 578894651 obesity due to excess calories Problem Diabetes E11.9 Active 179201041 Problem History of total Z96.641 Active 279420085524 right hip replacement Problem COPD (chronic J44.9 Active 90155414 obstructive pulmonary disease) Problem Allergic rhinitis J30.9 Active 75062184 Problem Primary M16.11 Active 999845132 osteoarthritis of right hip Problem Arthritis with L40.50 Active 986994083 psoriasis Problem Constipation, K59.00 Active 57072242 unspecified constipation type Problem Body mass index Z68.36 Active 215842678 (BMI) 36.0-36.9, adult ALLERGIES Allergen (clinical drug Drug/Non Drug Allergy Reaction Allergy Type Onset Date Status ingredient) documented on EMR codeine codeine Unknown Drug Allergy Active Iodine([facility] Unknown Drug Allergy Active Code:22092-29175) NSAIDS Unknown Drug Allergy Active morphine MORPHINE Unknown Drug Allergy Active ENCOUNTERS from 1955 to 2020-05-27 Encounter Location Date Provider Diagnosis Janiet [place] [address] Nader [place], [facility] Controlle d type [address], diabetes m [facility] [address] without compli cation, without long-te rm current use of insulin E11.9 ; Acquire d hypothyroidism E03.9 ; Mixed hyperlipi demia E78.2 ; Arthrit is with psoriasis L40.5 0 ; Depression with anxiety F41.8 ; Chronic obstructive pul monary disease, unspec ified COPD type J44.9 ; Chronic alcohol ic pancreatitis K8 6.0 ; Primary osteoar thritis of right hip M1 6.11 ; History of CVA (cerebrovascula r accident) witho ut residual defici ts Z86.73 ; Fatty liver disease, nonalc oholic K76.0 ; Growth hormone deficiency E23. 0 ; Morbid (severe) obesity due to excess c alories E66.01 ; Body m ass index (BMI) 36. 0-36.9, adult Z68.36 an d History of tota l right hip replacement Z96.641 IMMUNIZATIONS Vaccine Route Administration Date Status Afluria [...] REASON FOR REFERRAL No Information VITAL SIGNS Height 61.00 in May, Weight 179.7 lbs May, Temperature 97.0 degrees Fahrenheit May, BMI 33.95 kg/m2 May, Oximetry 93 % May, Respiratory Rate 17 /min May, Blood pressure systolic 139 mm Hg May, Blood pressure diastolic 70 mm Hg May, MEDICATIONS Medication SIG (Take, Route, Notes Start Date End Date Status Frequency, Duration) True Metrix Blood USE 1 STRIP TO CHECK Active Glucose Test - GLUCOSE TWICE DAILY for 90 Folic Acid 1 MG TAKE 1 TABLET BY MOUTH Active ONCE DAILY Oral Citalopram Hydrobromide take one tablet by Active 40MG mouth once daily Orally Once a day for 90 days Claritin 10 MG 1 tablet Orally Once a Active day Praluent 75 MG/ML Inject 1 ml Active Subcutaneous every 2 weeks for 28 Aspir-81 81 MG 1 tablet Orally Once a Active day Albuterol Sulfate HFA 2 puffs as needed Dec, Not-Taking 108 (90 Base) MCG/ACT Inhalation every 6 hrs for 30 days Glucometer n/s one n/s use as Active directed for 90 days [place] Active Albuterol Sulfate (5 1 ml as needed Active MG/ML) 0.5% Inhalation every 6 hrs blood glucose test strip one twice a day for 90 Active n/s days Alcohol Prep Pads as directed Active Vitamin D Active Levothyroxine Sodium 112 1 tablet on an empty Active MCG stomach in the morning Orally Once a day Lancets Super Thin n/s one finger stick twice Active a day for 30 days PROCEDURES No Information RESULTS No Results REASON FOR VISIT 3 [facility] lab f/u IN office MEDICAL (GENERAL) HISTORY Type Description Date Medical [...] History s/p Right Total Hip Replacement 10/2019 Surgical History Right knee 04/2020 Goals Section No Information Health Concerns No Information MEDICAL EQUIPMENT No Information MENTAL STATUS No Information FUNCTIONAL STATUS No Information ASSESSMENTS Encounter Date Diagnosis Assessment Notes Treatment Notes Treatm ent Clinical Notes May, Controlled type 2 STOPPED TRADJENTA diabetes mellitus (Pancreatitis). without STOPPED Jardiance complication, 10 mg (consider without long-term increasing at f/u). current use of Seen by ENDO. Side insulin (ICD-10 - effect discussed. E11.9) Education given. , Diabetes Education Diabetes is a disorder that disrupts the way your body uses glucose (sugar). It is a chronic medication condition that requires regular monitoring and treatment throughout your life. Treatment includes: lifestyle modification, self-care measures, and medication. Fortunately, these treatments can keep the blood sugar levels close to normal and minimize the risk of developing complications. The primary blood test to measure the progress of diabetes is the Hemoglobin A1c. Normal levels is less than 7.0 but less than 6.5 is considered excellent control. Fasting blood sugars should be in the range of 80-120 while random blood sugars should range below 200 especially after meals. Carbohydrate (sugar) intake for diabetics should be below 45 grams per meal and 15 grams per snack. Diabetic preventive care is vital to prevent complications, so it is important to have yearly diabetic eye and foot exams with specialists. If your diabetes is not controlled, then contact your doctor to further address.Medication may need to be adjusted and/or added. May, Acquired Stable. Managed by hypothyroidism . Education (ICD-10 - E03.9) given. May, Mixed hyperlipidemia Compliant with (ICD-10 - E78.2) injection. Stable. Doing well. tolerating it well. Education given. May, Arthritis with Managed by psoriasis (ICD-10 - Rheumatology. L40.50) Education given. May, Depression with Stable. Denies anxiety (ICD-10 - Si/Hi. , -- F41.8) Depression Education: Depression is a brain disease that makes you sad, but it is different than normal sadness. Depressed people feel down most of the time for at least 2 weeks. They also have at least one of these 2 symptoms: 1. They no longer enjoy or care about doing the things they used to like to do. 2. They feel sad, down, hopeless, or cranky most of the day, almost every day. It can also make you: lose or gain weight; sleep too much or too little; fell tired or like you have no energy; feel guilty or like you are worth nothing; forget things or feel confused; and think about or suicide. Medication and/or seeing a counselor (such as a psychiatrist, psychologist, nurse or sexual assault social worker) may be necessary to treat depression. Both treatments take time to work. If you ever feel like you might hurt yourself or some else, then call your doctor or call 911 or go to the ER. May, Chronic obstructive Stable. No recent pulmonary disease, Exacerbation. unspecified COPD type (ICD-10 - J44.9) May, Chronic alcoholic Alcohol cessation. pancreatitis (ICD-10 Managed by GI. - K86.0) May, Primary S/p Total hip osteoarthritis of replacement. In right hip (ICD-10 - REHAB M16.11) May, History of CVA (cerebrovascular accident) without residual deficits (ICD-10 - Z86.73) May, Fatty liver disease, Reduce Tylenol nonalcoholic (ICD-10 intake. - K76.0) Asymptoamtic. Will monitor. Liver Enzyme: nl. May, Growth hormone Managed by . deficiency (ICD-10 - Stable. E23.0) May, Morbid (severe) obesity due to excess calories (ICD-10 - E66.01) May, Body mass index (BMI) 36.0-36.9, adult (ICD-10 - Z68.36) May, History of total right hip replacement (ICD-10 - Z96.641) May, Other -- Medication reviewed and updated. -- Dietary and Lifestyle modifications addressed regarding diet, exercise and weight managemen t. -- Treatment options, risks and benefits, side effects reviewed in detail. -- Advised on signs/symptoms to monitor and when to call clinic and/or visit the nearest ER. Patient verbalized understanding and agreeable with plan. PLAN OF TREATMENT Medication Medication Name Sig Start Date Stop Date Levothyroxine Sodium 112 MCG 1 tablet on an empty stomach in the morning Orally Once a day Citalopram Hydrobromide 40MG take one tablet by mouth once daily Orally Once a day for 90 days Albuterol Sulfate (5 MG/ML) 0.5% 1 ml as needed Inhalation every 6 hrs Folic Acid 1 MG TAKE 1 TABLET BY MOUTH ONCE DAILY Oral Treatment Notes Assessment Notes Clinical Notes Controlled type 2 diabetes mellitus STOPPED TRADJENTA (Pancr eatitis). without complication, without STOPPED Jardiance 10 mg (consi pricilla long-term current use of insulin increasing at f/u). Seen by ENDO. Side effect discussed. Education given. , Diabetes Education Diabetes is a disorder that disrupts the way your body uses glucose (sugar). It is a chronic medication condition that requires regular monitoring and treatment throughout your life. Treatment includes: lifestyle modification, self-care measures, and medication. Fortunately, these treatments can keep the blood sugar levels close to normal and minimize the risk of developing complications. The primary blood test to measure the progress of diabetes is the Hemoglobin A1c. Normal levels is less than 7.0 but less than 6.5 is considered excellent control. Fasting blood sugars should be in the range of 80-120 while random blood sugars should range below 200 especially after meals. Carbohydrate (sugar) intake for diabetics should be below 45 grams per meal and 15 grams per snack. Diabetic preventive care is vital to prevent complications, so it is important to have yearly diabetic eye and foot exams with specialists. If your diabetes is not controlled, then contact your doctor to further address.Medication may need to be adjusted and/or added. Acquired hypothyroidism Stable. Managed by . Education given. Mixed hyperlipidemia Compliant with injection. Stable. Doing well. tolerating it well. Education given. Arthritis with psoriasis Managed by Rheumatology. Education given. Depression with anxiety Stable. Denies Si/Hi. , -- Depression Education: Depression is a brain disease that makes you sad, but it is different than normal sadness. Depressed people feel down most of the time for at least 2 weeks. They also have at least one of these 2 symptoms: 1. They no longer enjoy or care about doing the things they used to like to do. 2. They feel sad, down, hopeless, or cranky most of the day, almost every day. It can also make you: lose or gain weight; sleep too much or too little; fell tired or like you have no energy; feel guilty or like you are worth nothing; forget things or feel confused; and think about or suicide. Medication and/or seeing a counselor (such as a psychiatrist, psychologist, nurse or sexual assault social worker) may be necessary to treat depression. Both treatments take time to work. If you ever feel like you might hurt yourself or some else, then call your doctor or call 911 or go to the ER. Chronic obstructive pulmonary Stable. No recent Exacerbation . disease, unspecified COPD type Chronic alcoholic pancreatitis Alcohol cessation. Managed by GI. Primary osteoarthritis of right hip S/p Total hip replacemen t. In REHAB Fatty liver disease, nonalcoholic Reduce Tylenol intake. Asymptoamtic. Will monitor. Liver Enzyme: nl. Growth hormone deficiency Managed by . Luis Enrique. Treatment Notes Test Name Order Date Lipid Panel With LDL/HDL Ratio 2020-05-27 Thyroid Panel With TSH 2020-05-27 Microalbumin/Creat Ratio, Random Ur 2020-05-27 Hemoglobin A1c 2020-05-27 Comp. Metabolic Panel (14) (CMP) 2020-05-27 CBC With Differential/Platelet 2020-05-27 Next Appt Details 3 Months + AMW + Labs 1 week Reason: Provider Name:Gus Easton, 2020-08-19 08:00:00 AM, [address], [place], [address], Provider Name:Gus Easton, 2020-08-26 08:00:00 AM, [address], [place], [address], Provider Name:Gus Easton, 2020-08-26 08:20:00 AM, [address], [place], [address], Insurance Providers Payer Name Payer Payer Insured Patient Coverage Coverage End Address Phone Name Relationship to Start Date Ayden e Insured [facility] [address] [address] [phone] Bandar Ledesma 2020 Medicare [place] [address] [place] [address] MEDICAID [phone] Bandar Ledesma self [id number] [facility] [address]
--- OUTSIDE RECORDS SUMMARY | 2020-05-30 16:19 | XMS REPORT | Summary of Care ---
:1955 Author Organization [facility] Address [address] [place] [address] Care Team Providers Name Role Phone Suzie Carrion MD Unavailable Unavailable Jessica Easton Primary Care Provider Reason for Visit Reason Comments Refill Request Encounter Details Date Type Department Care Team Description 05/21/2020 Refill [facility] Endocrinology- Rika Gutierrez [place] [address] [address] [place] [address] [phone] Allergies Active Allergy Reactions Severity Noted Date Comments Ciprofloxacin Hives 01/07/2016 Codeine Other - See comments 01/07/2016 Slows h eart rate down Iodine Hives 01/07/2016 Levofloxacin Hives 01/07/2016 Morphine Hallucinations 01/07/2016 Nsaids (Non-Steroidal Other - See comments 01/07/2016 Patient states that Anti-Inflammatory Drug) its cause immune system issues documented as of this encounter (statuses as of 05/21/2020) Medications Medication Sig Dispensed Refills Start Date End Date Status alirocumab inject under the 0 A ctive (PRALUENT PEN) 75 skin. mg/mL PnIj aspirin 81 mg Take 81 mg by 0 Ac tive chewable tablet mouth daily. Cholecalciferol, Take by mouth. 0 Active Vitamin D3, (VITAMIN D3) 2,000 unit tablet LORATADINE Take by mouth. 0 Act bao (CLARITIN ORAL) fluticasone 50 Use 2 Sprays in 16 g 11 12/29/2017 Active mcg/actuation nasal each nostril spray daily. RESTASIS 0.05 % INSTILL 1 DROP 3 11/14/2018 Active ophthalmic drops INTO EACH EYE TWICE DAILY Docusate Sodium 100 Take 1 tablet by 0 Active mg tablet mouth. citalopram 40 mg Take 40 mg by 0 Active tablet mouth daily. ursodiol 300 mg Take 300 mg by 0 Active capsuleIndications: mouth 2 (two) chronic times daily. pancreatitis Indications: chronic inflammation of the pancreas levothyroxine 112 Take 1 tablet by 90 tablet 1 12/04/2019 Active mcg mouth every tabletIndications: morning. Primary hypothyroidism Blood Sugar Use as directed 200 Strip 1 12/18/2019 A ctive Diagnostic, Disc to check blood Strp sugar BID DX: E11.8 blood sugar Use as directed 200 Strip 1 12/18/2019 A ctive diagnostic to check blood (ONETOUCH VERIO) sugar BID DX: strip E11.8 tiotropium bromide Inhale 1 Puff 4 g 11 03/27/2020 Active (SPIRIVA RESPIMAT) daily. 2.5 mcg/actuation MistIndications: Mild intermittent asthma without complication, Dyspnea on exertion albuterol 90 Inhale 2 Puffs 8.5 g 11 03/27/2020 A ctive mcg/actuation every 6 (six) inhalerIndications: hours as needed Mild intermittent for Wheezing or asthma without Shortness of complication, Breath. Dyspnea on exertion ONETOUCH VERIO FLEX USE DIRECTED 1 Each 0 05/21/2020 Active METER Misc TO CHECK BLOOD SUGAR TWICE DAILY Blood-Glucose Meter Use as directed 1 Each 0 12/18/201911/02 Discontinued (ONETOUCH VERIO to check blood 21 FLEX) Misc sugar BID DX: E11.8 documented as of this encounter (statuses as of 05/21/2020) Active Problems Problem Noted Date Osteopenia of left hip 08/16/2017 Osteopenia of spine 08/16/2017 Other specified hypothyroidism 04/26/2017 Type 2 diabetes mellitus with complication, without lo ng-term current use 04/26/2017 of insulin NAOMI (obstructive sleep apnea) 04/26/2017 Prediabetes 02/17/2016 Low IGF-1 level 01/20/2016 documented as of this encounter (statuses as of 05/21/2020) Resolved Problems Problem Noted Date Resolved Date 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 documented as of this encounter Last Filed Vital Signs Not on filedocumented in this encounter Miscellaneous Notes Telephone Encounter - Mercedes Vides RN - 05/21/2020 11:58 AM CSTNOV: 08/13/20 RODNEY: 12/04/19 Refill sent documented in this encounter Plan of Treatment Date Type Specialty Care Team Description 06/27/2020 Office Visit Pulmonary Disease Leonid Napoles DO [address] [place] [address] 07/21/2020 Office Visit Cardiology Addy Vilchis MD [address] [address] 08/13/2020 Office Visit Endocrinology Diabetes & Tyler Gutierrez MD Metabolism [address] [place] [address] Health Maintenance Due Date Last [...] Effective Phone Address T ype Group Dates [facility] MEDICARE [id number] 2019-Pres Med icare Adv HEALTHCARE COMPLETE ent PPO MEDICARE CHOICE ADVANTAGE KRISTY WAGNER [id number] 2016-Pres [address] Medica id HEALTHCARE - HE[place]CARE [place] [id number] MANAGED MEDICAID [place], [place] documented as of this encounter
[2020-05-30 18:06] LABS: Absolute Lymphocytes (CBC) 3.1 K/uL (0.7-4.9); Lymphocytes % 36.8 % (15.3-44.8); MPV 7.1 fL (7.6-11.3); RBC Red Blood Cell Count 4.43 M/uL (3.86-4.86)
--- NOTE | 2020-05-30 18:17 | RAD REPORT ---
EXAM DESCRIPTION: CT - Stone Protocol - 05/30/2020 6:03 pm CLINICAL HISTORY: Flank pain. HEMATURIA COMPARISON: CT ABDOMEN PELVIS WO CONTRAST dated 09/18/2014 TECHNIQUE: Axial images were obtained without oral or IV contrast. Lack of contrast limits solid org an and vascular assessment. The apzyi-of-eega spans the entirety of the system partially obscuring uppermost abdomen and lung bases. Coronal reformatted images were obtained and reviewed. All CT scans are performed using dose optimization technique as appropriate and may include automated exposure control or mA/KV adjustment according to patient size. FINDINGS: The lower lung kelly are clear. Small hiatal hernia with postsurgical changes present. Ch olecystectomy clips. Imaged portions of the liver and spleen show no suspicious findings on non-contrast imaging. The panc reas and adrenal glands are normal. No pathologic lymphadenopathy in the abdomen or pelvis. No urinary tract stones or obstructive uropathy. No bowel obstruction, free air, free fluid or abscess. Normal appendix noted. Right hip arthroplasty. IMPRESSION: No urinary tract stones or obstructive uropathy.
[2020-05-30 18:19] LABS: Potassium 4.6 mmol/L (3.5-5.1)
[2020-05-30 18:28] LABS: Urine Bacteria 20-50 /HPF (<20); Urine RBC 20-50 /HPF (NONE SEEN)
[2020-05-30 18:29] LABS: Urine Blood 3+ (NEG); Urine Glucose NEGATIVE (NEG); Urine Protein 1+ (NEG); Urine Specific Gravity 1.025 (1.005-1.030)
--- NOTE | 2020-05-30 18:36 | ER ---
Nurse's Notes [facility] Name: Kathy Ledesma Age: 64 yrs Sex: Female : 1955 Arrival Date: 05/30/2020 Time: 16:06 Bed 24 Private MD: Diagnosis: Urinary tract infection, site not specified Presentation: 05/30 16:24 Chief complaint: Patient states: Noticed pelvic pressure and bloody urine today. + ll1 nausea. No fever. Coronavirus screen: Client denies travel out of the [place] in the last 14 days. At this time, the client does not indicate any symptoms associated with coronavirus-19. Ebola Screen: Patient denies travel to an Ebola-affected area in the 21 days before illness onset. Initial Sepsis Screen: Does the patient meet any 2 criteria? No. Patient's initial sepsis screen is negative. Does the patient have a suspected source of infection? Yes: Dysuria/Frequency/Urgency/UTI. Risk Assessment: Do you want to hurt yourself or someone else? Patient reports no desire to harm self or others. Onset of symptoms was May 30, 2020. 16:24 Method Of Arrival: Wheelchair ll1 16:24 Acuity: ZAK 3 ll1 Triage Assessment: 16:25 General: Appears uncomfortable, Behavior is calm, cooperative, appropriate for age. ll1 Pain: Complains of pain in pelvic Quality of pain is described as pressure, Pain began 1 day ago. Is intermittent, Aggravated by urinating. Neuro: No deficits noted. Cardiovascular: No deficits noted. Respiratory: No deficits noted. GI: Abdomen is flat, Bowel sounds present X 4 quads. Abd is soft and non tender X 4 quads. Reports lower abdominal pain, nausea. : Reports cramping, pressure to pelvic area, worse when urinating. Blood in urine. Historical: - Allergies: 16:27 Codeine; ll1 16:27 NSAIDS; ll1 16:27 Relafen; ll1 16:27 Cipro PO; ll1 16:27 Iodinated Contrast Media - IV Dye; ll1 - PMHx: 16:27 COPD; CVA; Diabetes - NIDDM; Fibromyalgia; Hypothyroidism; shingles; spinal stenosis; ll1 - PSHx: 16:27 R knee replacement; total hip; ll1 - Immunization history:: Flu vaccine is up to date. - Social history:: Smoking status: Patient denies any tobacco usage or history of. Screenin:00 Abuse screen: Denies threats or abuse. Nutritional screening: No deficits noted. em Tuberculosis screening: No symptoms or risk factors identified. Fall Risk None identified. Assessment: 17:00 General: Appears in no apparent distress. comfortable, Behavior is calm, cooperative, em appropriate for age, Denies fever. Pain: Complains of pain in right lower quadrant and left lower quadrant Pain currently is 4 out of 10 on a pain scale. Neuro: Level of Consciousness is awake, alert, obeys commands, Oriented to person, place, time, situation, Appropriate for age. Cardiovascular: Capillary refill < 3 seconds Patient's skin is warm and dry. Respiratory: Airway is patent Respiratory effort is even, unlabored, Respiratory pattern is regular, symmetrical. GI: Patient currently denies nausea. : Reports vaginal bleeding that is Denies burning with urination. Derm: Skin is intact, is healthy with good turgor, Skin is pink, warm \T\ dry. Musculoskeletal: Capillary refill < 3 seconds, Range of motion: intact in all extremities. Vital Signs: 16:24 BP 129 / 66; Pulse 86; Resp 16; Temp 97.5; Pulse Ox 96% on R/A; Weight 80.29 kg; Height ll1 5 ft. 2 in. (157.48 cm); Pain 4/10; 16:24 Body Mass Index 32.37 (80.29 kg, 157.48 cm) ll1 ED Course: 16:06 Patient arrived in ED. rg4 16:26 Triage completed. ll1 16:29 Arm band placed on. ll1 17:00 Patient has correct armband on for positive identification. Bed in low position. Side em rails up X2. Adult w/ patient. 17:23 Chela Loaiza FNP-C is PHCP. kb 17:23 Boyd Tomas MD is Attending Physician. kb 17:24 Jamil Guadarrama, MARQUES is Primary Nurse. em 17:58 Initial lab(s) drawn, by me, sent to lab. Inserted saline lock: 22 gauge in left vg1 antecubital area, using aseptic technique. Blood collected. 18:03 CT Stone Protocol In Process Unspecified. EDMS 18:23 Urine Microscopic Only Sent. em 19:15 No provider procedures requiring assistance completed. IV discontinued, intact, em bleeding controlled, No redness/swelling at site. Pressure dressing applied. Administered Medications: 18:35 Drug: Rocephin 1 grams Route: IV; Rate: calculated rate; Site: left antecubital; vg1 19:15 Follow up: Response: No adverse reaction; IV Status: Completed infusion; IV Intake: 10mlem Intake: 19:15 IV: 10ml; Total: 10ml. em Outcome: 18:35 Discharge ordered by . wayne 19:15 Discharged to home via wheelchair, with family. em 19:15 Condition: good 19:15 Discharge instructions given to patient, Instructed on discharge instructions, follow up and referral plans. medication usage, Demonstrated understanding of instructions, follow-up care, medications, Prescriptions given X 1. 19:16 Patient left the ED. em Addendum: 06/02/2020 07:48 Addendum: Culture Results: Positive urine culture. No further action required. Bacteria i w sensitive to prescribed antibiotic. Signatures: Dispatcher [employer] Chela Silva, SIEBEL CRM DEVELOPER-C SIEBEL CRM DEVELOPER-Ckb Jamil Guadarrama, RN RN Silvia Maki, RN Suri Jeter4 Alejandra Marie RN RN vg1 Jenni Vera RN RN ll1
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
[2020-05-30] MEDS ORDERED: CEFTRIAXONE/SWI 1gm 1 GM/10 ML SYR ONE (18:41)
[2020-05-30 19:21] VITALS: BP 129/66; TEMP 97.5; O2SAT 96
== END 2020-05-30 19:16 | disposition home or self-care (01) ==
LOC: ER 16:03
DX: N39.0 Urinary tract infection, site not specified (principal); Z88.1 Allergy status to other antibiotic agents; Z88.5 Allergy status to narcotic agent; Z88.6 Allergy status to analgesic agent; Z88.8 Allergy status to other drugs, medicaments and biological substances
CPT/HCPCS: 96365; 87088; 85025; 87086; 80048; 36415; 87077; 87186; 76377; 74176; 99284; J0696; 81003; 81015

== ENCOUNTER 2020-08-09 12:21 | Inpatient (IN) | payer MEDICARE, OTHER ==
--- OUTSIDE RECORDS SUMMARY | 2020-08-09 12:33 | XMS REPORT | Continuity of Care Document ---
:1955 Author Organization [facility] t Address [address] [place] [address] Care Team Providers Name Role Phone Gus Easton DO Jaden Primary Care Physician [phone] Matt GARAY Attending Clinician Andrea Ford DO Attending Clinician Wander Quispe Attending Clinician Yesika ALEJANDRE Attending Clinician Deng GARAY, K.H. Attending Clinician [...] Details Category Date Date Treatment Clinician Date UNK Diagnosis Active 2020-07-21 Mem oria 07-07 17:22:00 l UNK 00:00: Frandy 00 Active 07/07/2020 [facility] KNEE Diagnosis Active 2019-052020-04-29 Me moria DJD 06-24 08:18:00 l RT KNEE 00:00: Frandy DJD 00 [facility] Active 2020-01-07 Mem oria VISIT 10-30 09:28:00 l CLINIC 00:00: [place] VISIT 00 Active 10/31/2019 [facility] M16.11 Diagnosis Active 2020-01-16 Mem oria 10-22 15:51:00 l M16.11 00:00: Frandy 00 Active 2019 [facility] EPIGASTRIC Diagnosis Active 2019-10-31 Memoria PAIN 10-10 12:59:00 l 00:00: Frandy EPIGASTRIC 00 PAIN Active 10/11/2019 [facility] VIRTUAL Diagnosis Active 2019-10-31 Nm moria VISIT- 10-09 12:57:00 l PHONE VIRTUAL 00:00: Frandy VISIT VISIT- 00 PHONE VISIT Active 10/10/2019 [facility] PHONE CALL Diagnosis Active 2020-01-23 Memoria - NEW PT 3-31 15:30:00 l VISIT - PHONE 00:00: [place] PANCREATIT CALL - NEW 00 IS PT VISIT - PANCREATIT IS Active [facility] M51.16 - Diagnosis Active 2019-07-12 M emoria INTERVERTE 2-07 09:53:00 l BRAL DISC M51.16 - 00:01: Her horn DISORDERS INTERVERTE 00 BRAL DISC DISORDERS Active 06/22/2019 [facility] [place] SOB SOB Disease Active [facility]shortness [facility]-08 Chloé kes - of breath) of breath) 00:00: Me dical 00 Center Pneumonia Pneumonia Disease [facility] N/A Diagnosis Active 2017-06-03 Mem oria 1-11 09:39:00 l N/A 00:00: [place] 00 Active 05/26/2017 [facility] LUMBAR Diagnosis Active 2017-06-09 Mem oria L3-4 1- 11:26:00 l CYPTIC LUMBAR 00:00: [place] MASS L3-4 00 CYPTIC MASS Active 05/26/2017 [facility] 723.0 Diagnosis Active 2013-052014-06-10 Mem oria CERVICAL 2-24 09:28:00 l STENOSIS 723.0 00:00: Frandy CERVICAL 00 STENOSIS Active 05/08/2014 [facility] 724.5, Diagnosis Active 2013-052014-06-10 Mem oria 723.1, 2-04 09:27:00 l 722.0, 724.5, 00:00: Frandy 722.10, 723.1, 00 722.81 722.0, 722.10, 722.81 Active 04/18/2014 [facility] Final: Problem 2014-05-25 Memor ia 11:44:36 l Final: Frandy 05/25/2014 [facility] Type 2 Problem 2017-09-15 Memor ia diabetes 16:24:33 l mellitus Type 2 Kiko n with diabetes hyperglyce mellitus nitin with hyperglyce nitin 09/15/2017 [facility] Fibromyalg Problem 2017-09-15 M emoria ia 16:24:33 l [place] Fibromyalg ia 09/15/2017 [facility] Chronic Problem 2017-09-15 Jaylan elvin obstructiv 16:24:33 l e Chronic Frandy pulmonary obstructiv disease, e unspecifie pulmonary d disease, unspecifie d 09/15/2017 [facility] Major Problem 2017-09-15 Memor ia depressive 16:24:33 l disorder, Major Kiko n single depressive episode, disorder, unspecifie single d episode, unspecifie d 09/15/2017 [facility] Hypothyroi Problem 2017-09-15 M emoria dism, 16:24:33 l unspecifie Kiko n d Hypothyroi dism, unspecifie d 09/15/2017 [facility] Unilateral Problem 2019-11-02 M emoria primary 22:30:40 l osteoarthr Kiko n itis, Unilateral right hip primary osteoarthr itis, right hip 11/02/2019 [facility] Backache Problem Resolve 2020-07-23 Me moria (finding) d 22:16:51 l Backache Kiko n (finding) Resolved Problem 07/23/2020 [facility], [facility], [facility] Chronic Problem Resolve 2020-07-23 Mem oria obstructiv d 22:16:51 l e lung Chronic Frandy disease obstructiv (disorder) e lung disease (disorder) Resolved Problem 07/23/2020 [facility], [facility], [facility] Neck pain Problem Resolve 2020-07-23 M emoria (finding) d 22:16:51 l Neck Frandy pain (finding) Resolved Problem 07/23/2020 [facility], [facility], [facility] Asthma Problem Active 2020-07-23 Memor ia (disorder) 22:16:51 l Asthma [place] (disorder) Active Problem 07/23/2020 [facility], [facility], [facility] Diabetes Problem Active 2020-07-23 Mem oria mellitus 22:16:51 l (disorder) Diabetes He rmann mellitus (disorder) Active Problem 07/23/2020 [facility], [facility], [facility] Sleep Problem Active 2020-07-23 Memor ia apnea 22:16:51 l (finding) Sleep Kiko n apnea (finding) Active Problem 07/23/2020 [facility], [facility], [facility] Thyroid Problem Active 2020-07-23 Jaylan elvin dysfunctio 22:16:51 l n Thyroid Frandy (disorder) dysfunctio n (disorder) Active Problem 07/23/2020 hypothryo id [facility], [facility], [facility] Body mass Problem Active 2020-07-23 Me moria index 30+ 22:16:51 l - obesity Body Frandy (finding) mass index 30+ - obesity (finding) Active Problem 07/23/2020 [facility] Chronic Problem Active 2020-07-23 Jaylan elvin pancreatit 22:16:51 l is Chronic Frandy (disorder) pancreatit is (disorder) Active Problem 07/23/2020 [facility] Depression Problem Active 2020-07-23 M emoria - motion 22:16:51 l (qualifier Kiko n value) Depression - motion (qualifier value) Active Problem 07/23/2020 [facility] Fibromyalg Problem Active 2020-07-23 M emoria ia 22:16:51 l (disorder) Kiko n Fibromyalg ia (disorder) Active Problem 07/23/2020 [facility] Gastroesop Problem Active 2020-07-23 M emoria hageal 22:16:51 l reflux [place] disease Gastroesop (disorder) hageal reflux disease (disorder) Active Problem 07/23/2020 [facility] History of Problem Active 2020-07-23 M emoria - TIA 22:16:51 l (context-d History Her horn ependent of - TIA category) (context-d ependent category) Active Problem 07/23/2020 [facility] Hyperlipid Problem Active 2020-07-23 M emoria emia 22:16:51 l (disorder) Kiko n Hyperlipid emia (disorder) Active Problem 07/23/2020 [facility] Hypothyroi Problem Active 2020-07-23 M emoria dism 22:16:51 l (disorder) Kiko n Hypothyroi dism (disorder) Active Problem 07/23/2020 [facility] Mixed Problem Active 2020-07-23 Memor ia anxiety 22:16:51 l and Mixed Frandy depressive anxiety disorder and (disorder) depressive disorder (disorder) Active Problem 07/23/2020 [facility] Obsessive- Problem Active 2020-07-23 M emoria compulsive 22:16:51 l disorder [place] (disorder) Obsessive- compulsive disorder (disorder) Active Problem 07/23/2020 [facility] Osteoarthr Problem Active 2020-07-23 M emoria itis 22:16:51 l (disorder) Kiko n Osteoarthr itis (disorder) Active Problem 07/23/2020 [facility] Osteoarthr Problem Active 2020-07-23 M emoria itis of 22:16:51 l knee [place] (disorder) Osteoarthr itis of knee (disorder) Active Problem 07/23/2020 [facility] Osteopenia Problem Active 2020-07-23 M emoria (disorder) 22:16:51 l [place] Osteopenia (disorder) Active Problem 07/23/2020 [facility] Diabetes Problem Active 2020-07-23 Mem oria mellitus 22:16:51 l type 2 Diabetes Kiko n (disorder) mellitus type 2 (disorder) Active Problem 07/23/2020 [facility] BACKACHE Diagnosis Active 2014-06-10 M emoria NOS 09:27:00 l BACKACHE Kiko n NOS Active [facility] CERVICALGI Diagnosis Active 2014-06-10 Memoria A 09:27:00 l [place] CERVICALGI A Active [facility] CERVICAL Diagnosis Active 2014-06-10 M emoria DISC 09:27:00 l DISPLACMNT CERVICAL He rmann DISC DISPLACMNT Active [facility] CERVICAL Diagnosis Active 2014-06-10 M emoria SPINAL 09:28:00 l STENOSIS CERVICAL Herm kash SPINAL STENOSIS Active [facility] OTHER Diagnosis Active 2017-06-09 Mem oria BURSAL 11:26:00 l CYST, OTHER [place] UNSPECIFIE BURSAL D SITE CYST, UNSPECIFIE D SITE Active [facility] UNILATERAL Diagnosis Active 2020-01-16 Memoria PRIMARY 15:51:00 l OSTEOARTHR Kiko n ITIS, UNILATERAL RIGHT PRIMARY OSTEOARTHR ITIS, RIGHT Active [facility] Rheumatic Problem Resolve 1976-2020-07-23 2020-07-23 Memoria fever d - 22:16:51 22:16:51 l (disorder) 00:00: Kiko n Rheumatic 00 fever (disorder) Resolved 05/16/1976 Problem 07/23/2020 [facility] History of Past Illness Condition Condition Condition Status Onset Resolution Last Treating Co mments Source Name Details Category Date Date Treatment Clinician Date Other Problem 2017-09-15 2017-09-15 M emoria bursal 06-16 16:24:33 16:24:33 l cyst, Other 04:21: Frandy other site bursal 07 cyst, other site 06/16/2017 09/15/2017 [facility] Allergies, Adverse Reactions, Alerts Allergy Allergy Status Severity Reaction(s) Onset Inactive Treating Comm ents Source Name Type Date Date Clinician Ciproflo Propensi Active [place] xacin ty to 12-21 Methodi adverse 00:00: st reaction 00 s to drug Codeine Propensi Active Daniels ty to 12-21 Methodi adverse 00:00: st reaction 00 s to drug Iodine Propensi Active Daniels ty to 12-21 Methodi adverse 00:00: st reaction 00 s to drug Levoflox Propensi Active [place] acin ty to 12-21 Methodi adverse 00:00: st reaction 00 s to drug Morphine Propensi Active [place] ty to 12-21 Methodi adverse 00:00: st reaction 00 s to drug Nsaids Propensi Active Other (See Lethargic H [place] (Non-Alexsander ty to Comments) 12-21 , flu [...] Active 2004-05 Memori a 0-28 l 00:00: Relafen Relafen Active Memoria l Fr[place] Cipro Cipro Active Memoria l [place] iodine iodine Active Memoria l Frandy Levaquin Levaquin Active Memori a l [place] NSAIDs NSAIDs Active Memoria l Frandy topirama topirama Active Memori a te te l [place] Food Food Active Memoria Nuts<sup Nuts<sup l >1</sup> >1</sup> Kiko n NSAIDS Adverse Active Info [facility] M[facility] Adverse [facility] Iodine Adverse Active Info [facility] Social History Social Habit Start Date Stop Date Quantity Comments Source Social History 2019-08-03 2019-08-03 [facility] 04:59:59 04:59:59 Sex [birth year] At [birth year] [facility] ethodist 00:00:00 00:00:00 Medications Ordered Filled Start Stop Current Ordering Indication Dosage Frequency Signature Comments Components Source Medication Medication Date Date Medication? Clinician (SIG) Name Name Oxycodone 0 No 5 mg, Memoria Hydrochlori 07-21 Route: PO, l de 5 MG 14:37: Drug form: Herm kash Oral Tablet 00 TAB, Q4H, Dosing Weight 79.545, kg, PRN Pain Score 4-6, Start date: 07/21/20 8:37:00 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, Duration: 30 day, Stop date: 08/20/20 8:36:00 CDT Oxycodone 0 No 5 mg, Memoria Hydrochlori 07-21 Route: PO, l de 5 MG 14:37: Drug form: Herm kash Oral Tablet 00 TAB, Q4H, Dosing Weight 79.545, kg, PRN Pain Score 4-6, Start date: 07/21/20 8:37:00 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, Duration: 30 day, Stop date: 08/20/20 8:36:00 CDT Labetalol 2021-0 No 10 mg, Memori a 07-21 Route: l 14:35: IVP, Frandy 00 Q5Min, Dosing Weight 79.545, kg, PRN Elevated BP, Start date: 07/21/20 8:35:00 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, Duration: 5 doses or times, Stop date: Limited # of times Acetaminoph 2020-0 No 1,000 mg, M emoria en 08 Route: PO, l 14:35: Drug form: Frandy 00 TAB, ONCE, Dosing Weight 79.545, kg, PRN Pain Score 1-3, Start date: 07/21/20 8:35:00 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 Fentanyl 2020-0 No 25 Memoria 3-08 microgram, l 14:35: Route: [place] 00 IVP, Q5Min, Dosing Weight 79.545, kg, PRN Pain Score 4-6, Priority: Routine, Start date: 07/21/20 8:35:00 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, Duration: 4 doses or times, Stop date: Limited # of times Hydromorpho 2020-0 No 0.5 mg, Mem oria ne 07-21 Route: l 14:35: IVP, Frandy 00 Q5Min, Dosing Weight 79.545, kg, PRN Pain Score 7-10, Start date: 07/21/20 8:35:00 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, Duration: 4 doses or times, Stop date: Limited # of times Flumazenil 2020-0 No 0.2 mg, Jaylan elvin 07-21 Route: l 14:35: IVP, PRN, Frandy 00 Dosing Weight 79.545, kg, PRN Benzodiaze pine Reversal, Initial dose, Start date: 07/21/20 8:35:00 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, Duration: 30 day, Stop date: 08/20/20 9:34:00 CDT Naloxone 2020-0 No 0.4 mg, Memori a 07-21 Route: l 14:35: IVP, Frandy 00 Q2MIN, Dosing Weight 79.545, kg, PRN Narcotic Reversal, Start date: 07/21/20 8:35:00 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, Duration: 8 doses or times, Stop date: Limited # of times Meperidine 2020-0 No 12.5 mg, Mem oria 308 Route: l 14:35: IVP, [place] 00 Q30Min, Dosing Weight 79.545, kg, PRN Other -See Comment, For shivering, Start date: 07/21/20 8:35:00 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, Duration: 2 doses or times, Stop date: Limited # of times Ondansetron 1-0 No 4 mg, Memor ia 08 Route: l 14:35: IVP, ONCE, [place] 00 Dosing Weight 79.545, kg, PRN Nausea & Vomiting, Start date: 07/21/20 8:35:00 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 Labetalol 1-0 No 10 mg, Memori a 08 Route: l 14:35: IVP, [place] 00 Q5Min, Dosing Weight 79.545, kg, PRN Elevated BP, Start date: 07/21/20 8:35:00 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, Duration: 5 doses or times, Stop date: Limited # of times Acetaminoph 2020-0 No 1,000 mg, M emoria en 08 Route: PO, l 14:35: Drug form: Frandy 00 TAB, ONCE, Dosing Weight 79.545, kg, PRN Pain Score 1-3, Start date: 07/21/20 8:35:00 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 Fentanyl 2020-0 No 25 Memoria 3-08 microgram, l 14:35: Route: [place] 00 IVP, Q5Min, Dosing Weight 79.545, kg, PRN Pain Score 4-6, Priority: Routine, Start date: 07/21/20 8:35:00 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, Duration: 4 doses or times, Stop date: Limited # of times Hydromorpho 2020-0 No 0.5 mg, Mem oria ne 08 Route: l 14:35: IVP, [place] 00 Q5Min, Dosing Weight 79.545, kg, PRN Pain Score 7-10, Start date: 07/21/20 8:35:00 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, Duration: 4 doses or times, Stop date: Limited # of times Flumazenil 2020-0 No 0.2 mg, Jaylan elvin 08 Route: l 14:35: IVP, PRN, [place] 00 Dosing Weight 79.545, kg, PRN Benzodiaze pine Reversal, Initial dose, Start date: 07/21/20 8:35:00 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, Duration: 30 day, Stop date: 08/20/20 9:34:00 CDT Naloxone 2020-0 No 0.4 mg, Memori a 07-21 Route: l 14:35: IVP, [place] 00 Q2MIN, Dosing Weight 79.545, kg, PRN Narcotic Reversal, Start date: 07/21/20 8:35:00 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, Duration: 8 doses or times, Stop date: Limited # of times Meperidine 0 No 12.5 mg, Mem oria 07-21 Route: l 14:35: IVP, [place] 00 Q30Min, Dosing Weight 79.545, kg, PRN Other -See Comment, For shivering, Start date: 07/21/20 8:35:00 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, Duration: 2 doses or times, Stop date: Limited # of times Ondansetron 2020-0 No 4 mg, Memor ia 07-21 Route: l 14:35: IVP, ONCE, Frandy 00 Dosing Weight 79.545, kg, PRN Nausea & Vomiting, Start date: 07/21/20 8:35:00 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 midazolam 2020-0 No Route: IV, Me moria (ANES) 07-21 Drug form: l 14:25: SOLN, 00 ONCE, Stop date: 07/21/20 8:25:00 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 lidocaine 2020-0 No Route: IV, Me moria (ANES) 07-21 Drug form: l 14:25: INJ, ONCE, Stop date: 07/21/20 8:25:00 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 fentaNYL 2020-0 No Route: IV, Mem oria (ANES) 07-21 Drug form: l 14:25: INJ, ONCE, Frandy 00 Stop date: 07/21/20 8:25:00 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 propofol 2020-0 No Route: IV, Mem oria (ANES) -08 Drug form: l 14:25: INJ, ONCE, Stop date: 07/21/20 8:25:00 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 ondansetron 2020-0 No Route: IV, Memoria (ANES) 07-21 Drug form: l 14:25: INJ, ONCE, Frandy 00 Stop date: 07/21/20 8:25:00 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 midazolam 2020-0 No Route: IV, Me moria (ANES) 3-08 Drug form: l 14:25: SOLN, [place] 00 ONCE, Stop date: 07/21/20 8:25:00 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 lidocaine 2020-0 No Route: IV, Me moria (ANES) 3-08 Drug form: l 14:25: INJ, ONCE, Stop date: 07/21/20 8:25:00 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 fentaNYL 2020-0 No Route: IV, Mem oria (ANES) 3- Drug form: l 14:25: INJ, ONCE, Stop date: 07/21/20 8:25:00 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 propofol No Route: IV, Mem oria (ANES) 3-08 Drug form: l 14:25: INJ, ONCE, Stop date: 07/21/20 8:25:00 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 ondansetron No Route: IV, Memoria (ANES) 3- Drug form: l 14:25: INJ, ONCE, Stop date: 07/21/20 8:25:00 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 Lactated No Route: IV, Mem oria Ringers 3-08 Total l Injection 13:49: Volume: Carly nn IV (ANES) 00 1,000, 1000 mL Start date: 07/21/20 7:49:00 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, Stop date: 07/21/20 8:49:00 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 Lactated No Route: IV, Mem oria Ringers 3-08 Total l Injection 13:49: Volume: Carly nn IV (ANES) 00 1,000, 1000 mL Start date: 07/21/20 7:49:00 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, Stop date: 07/21/20 8:49:00 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 Calcium 2020-0 No 1,000 mL, Memor ia Chloride 308 Rate: 75 l 0.0014 13:41: ml/hr, MEQ/ML / 00 Infuse Potassium over: 13.3 Chloride hr, Route: 0.004 IV, Dosing MEQ/ML / Weight Sodium 79.545 kg, Chloride Total 0.103 Volume: MEQ/ML / 1,000, Sodium Start Lactate date: 0.028 07/21/20 MEQ/ML 7:41:00 Injectable 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, Solution Duration: 6 hr, Stop date: 07/21/20 13:40:00 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, 1.89, m2, 0 Calcium 2020-0 No 1,000 mL, Memor ia Chloride 3-08 Rate: 75 l 0.0014 13:41: ml/hr, Mallard MEQ/ML / 00 Infuse Potassium over: 13.3 Chloride hr, Route: 0.004 IV, Dosing MEQ/ML / Weight Sodium 79.545 kg, Chloride Total 0.103 Volume: MEQ/ML / 1,000, Sodium Start Lactate date: 0.028 07/21/20 MEQ/ML 7:41:00 Injectable 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, Solution Duration: 6 hr, Stop date: 07/21/20 13:40:00 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, 1.89, m2, 0 Claritin 2020-0 Yes Daily, 0 Memor ia 3-01 Refill(s) l 19:07: Frandy 00 Claritin 2020-0 Yes Daily, 0 Memor ia 3-01 Refill(s) l 19:07: Frandy dexamethaso 2019-05 No Notes: Jaylan elvin ne 2-16 Give with l 15:00: food. Rfandy 00 (Same As: Decadron) dexamethaso 2019-05 No Notes: Jalyan elvin ne 2-16 Give with l 15:00: food. Mallard 00 (Same As: Decadron) Saline 2019-05 No Notes: Memoria Flush 0.9% 2-16 Same as: l 03:00: BD Frandy 00 Posiflush Sterile Saline 2019-05 No Notes: Memoria Flush 0.9% 2-16 Same as: l 03:00: BD [place] 00 Posiflush Sterile Saline 2019-05 No Notes: Memoria Flush 0.9% 2-15 Same as: l 17:38: BD Frandy 00 Posiflush Sterile Saline 2019-05 No Notes: Memoria Flush 0.9% 2-15 Same as: l 17:38: BD Frandy 00 Posiflush Sterile Enoxaparin 2019-05 No Notes: Memor ia 2-15 (Same as: l 16:00: Lovenox) Frandy 00 Enoxaparin 2019-05 No Notes: Memor ia 2-15 (Same as: l 16:00: Lovenox) dexamethaso 2020- No Notes: Jaylan elvin ne 2-15 Concentrat l 15:00: ion: Mallard 4mg/ml dexamethaso 2020- No Notes: Jaylan elvin ne 2-15 Concentrat l 15:00: ion: Frandy 00 4mg/ml Vancomycin 2020- No 2000 mg: Me moria 2-15 infuse l 02:00: over 2.5 Mallard 00 hours For adult patients only: Round to nearest 250 mg per Medical Staff approval MEDICATION WASTE Product Size: 1000 mg Product Wasted: ___ mg Vancomycin 2020-1 No 2000 mg: Me moria 2-15 infuse l 02:00: over 2.5 Mallard 00 hours For adult patients only: Round to nearest 250 mg per Medical Staff approval MEDICATION WASTE Product Size: 1000 mg Product Wasted: ___ mg tranexamic 2020- No Notes: Memor ia acid + 2-15 (Same As: l Sodium 00:00: Cyklokapro Carly nn Chloride 00 n) 0.9% IV 100 mL tranexamic 2020- No Notes: Memor ia acid + 2-15 (Same As: l Sodium 00:00: Cyklokapro Carly nn Chloride 00 n) 0.9% IV 100 mL Cefazolin 2019- No Notes: Memori a 2-14 (Same As: l 22:00: Ancef, Mallard Kefzol) MEDICATION WASTE Product Size: 1000 mg Product Wasted: ___ mg Zofran 2020- No Notes: Memoria 2-14 (Same as: l 22:00: Zofran) MEDICATION WASTE Product Size: 4 mg Product Wasted: ___ mg Cefazolin 2020-1 No Notes: Memori a 2-14 (Same As: l 22:00: Ancef, Frandy Kefzol) MEDICATION WASTE Product Size: 1000 mg Product Wasted: ___ mg Zofran 2020-1 No Notes: Memoria 2-14 (Same as: l 22:00: Zofran) MEDICATION WASTE Product Size: 4 mg Product Wasted: ___ mg dexamethaso 2019-05 No Notes: Jaylan elvin ne 2-14 Give with l 18:00: food. (Same As: Decadron) dexamethaso 2019-05 No Notes: Jaylan elvin ne 2-14 Give with l 18:00: food. Frandy 00 (Same As: Decadron) Acetaminoph 2019-05 Yes [...] mL 2-14 Rate: 75 l 17:38: ml/hr, Infuse over: 13.3 hr, Route: IV, Dosing Weight 83.864 kg, Total Volume: 1,000, Start date: 04/28/20 11:38:00 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, Duration: 30 day, Stop date: 05/28/20 11:37:00 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, 1.93, m2, 0 Tranexamic 2019-05 No Notes: Memor ia Acid 2-14 (Same As: l 17:38: Cyklokapro n) Dexamethaso 2019-05 No Notes: Jaylan elvin ne 2-14 Concentrat l 17:38: ion: 4mg/ml Zofran 2019-05 No Notes: Memoria 2-14 (Same as: l 17:38: Zofran) Frandy 00 MEDICATION WASTE Product Size: 4 mg Product Wasted: ___ mg Acetaminoph 2019-05 No Notes: Jaylan elvin en 325 MG / 2-14 (Same as: l Hydrocodone 17:38: Anderson Carly nn Bitartrate 00 325/5) Do 5 MG Oral not exceed Tablet 4gm/day of [Anderson acetaminop 5/325] hen. Acetaminoph 2019-05 No Notes: Do M emoria en 325 MG / 2-14 not exceed l Hydrocodone 17:38: 4gm/day of Frandy Bitartrate 00 acetaminop 10 MG Oral hen. Tablet (Same as: [Anderson Anderson 10/325] 325/10) Acetaminoph 2019-05 No Notes: Do M emoria en 325 MG / 2-14 not exceed l Oxycodone 17:38: 4gm/day of He rmann Hydrochlori 00 acetaminop de 10 MG hen. Oral Tablet (Same as: [Percocet Percocet-1 10/325] 0/325) 05/17 NS 2019-05 No 1,000 mL, Memori a 1,000 mL 2-14 Rate: 75 l 17:38: ml/hr, Mallard 00 Infuse over: 13.3 hr, Route: IV, Dosing Weight 83.864 kg, Total Volume: 1,000, Start date: 04/28/20 11:38:00 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, Duration: 30 day, Stop date: 05/28/20 11:37:00 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, 1.93, m2, 0 Tranexamic 2019-05 No Notes: Memor ia Acid 2-14 (Same As: l 17:38: Cyklokapro Frandy 00 n) Dexamethaso 2019-05 No Notes: Jaylan elvin ne 2-14 Concentrat l 17:38: ion: Frandy 00 4mg/ml Zofran 2019-05 No Notes: Memoria 2-14 (Same as: l 17:38: Zofran) Mallard 00 MEDICATION WASTE Product Size: 4 mg Product Wasted: ___ mg Acetaminoph 2019-05 No Notes: Jaylan elvin en 325 MG / 2-14 (Same as: l Hydrocodone 17:38: Anderson Carly nn Bitartrate 00 325/5) Do 5 MG Oral not exceed Tablet 4gm/day of [Anderson acetaminop 5/325] hen. Acetaminoph 2019-05 No Notes: Do M emoria en 325 MG / 2-14 not exceed l Hydrocodone 17:38: 4gm/day of Mallard Bitartrate 00 acetaminop 10 MG Oral hen. Tablet (Same as: [Anderson Anderson 10/325] 325/10) Acetaminoph 2019-05 No Notes: Do M emoria en 325 MG / 2-14 not exceed l Oxycodone 17:38: 4gm/day of He rmann Hydrochlori 00 acetaminop de 10 MG hen. Oral Tablet (Same as: [Percocet Percocet-1 10/325] 0/325) ceFAZolin 2019-05 No Route: IV, Me moria (ANES) 2-14 Drug form: l 16:34: INJ, ONCE, Stop date: 04/28/20 10:34:00 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 phenylephri 2019-05 No Route: IV, Memoria ne (ANES) 2-14 Drug form: l 16:34: INJ, ONCE, Stop date: 04/28/20 10:34:00 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 ceFAZolin 2019-05 No Route: IV, Me moria (ANES) 2-14 Drug form: l 16:34: INJ, ONCE, Stop date: 04/28/20 10:34:00 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 phenylephri 2019-05 No Route: IV, Memoria ne (ANES) 2-14 Drug form: l 16:34: INJ, ONCE, Stop date: 04/28/20 10:34:00 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 ketAMINE 2019-05 No Route: IV, Mem oria (ANES) 2-14 Drug form: l 16:24: INJ, ONCE, Stop date: 04/28/20 10:24:00 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 ketAMINE 2019-05 No Route: IV, Mem oria (ANES) 2-14 Drug form: l 16:24: INJ, ONCE, Stop date: 04/28/20 10:24:00 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 midazolam 2019-05 No Route: IV, Me moria (ANES) 2-14 Drug form: l 16:19: SOLN, Frandy ONCE, Stop date: 04/28/20 10:19:00 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 fentaNYL 2019-05 No Route: IV, Mem oria (ANES) 2-14 Drug form: l 16:19: INJ, ONCE, Stop date: 04/28/20 10:19:00 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 midazolam 2019-05 No Route: IV, Me moria (ANES) 2-14 Drug form: l 16:19: SOLN, Mallard ONCE, Stop date: 04/28/20 10:19:00 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 fentaNYL 2019-05 No Route: IV, Mem oria (ANES) 2-14 Drug form: l 16:19: INJ, ONCE, Stop date: 04/28/20 10:19:00 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 lidocaine 2019-05 No Route: IV, Me moria (ANES) 2-14 Drug form: l 16:14: INJ, ONCE, Stop date: 04/28/20 10:14:00 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 propofol 2019-05 No Route: IV, Mem oria (ANES) 2-14 Drug form: l 16:14: INJ, ONCE, Stop date: 04/28/20 10:14:00 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 lidocaine 2019-05 No Route: IV, Me moria (ANES) 2-14 Drug form: l 16:14: INJ, ONCE, Stop date: 04/28/20 10:14:00 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 propofol 2019-05 No Route: IV, Mem oria (ANES) 2-14 Drug form: l 16:14: INJ, ONCE, Stop date: 04/28/20 10:14:00 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 propofol 2019-05 No Route: IV, Mem oria (ANES) 10 2-14 Drug form: l mg 15:43: INJ, Start date: 04/28/20 9:43:00 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, Stop date: 04/28/20 10:43:00 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 propofol 2019-05 No Route: IV, Mem oria (ANES) 10 2-14 Drug form: l mg 15:43: INJ, Start date: 04/28/20 9:43:00 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, Stop date: 04/28/20 10:43:00 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 Lactated 2019-05 No Route: IV, Mem oria Ringers 2-14 Total l Injection 15:34: Volume: Carly nn IV (ANES) 00 1,000, 1000 mL Start date: 04/28/20 9:34:00 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, Stop date: 04/28/20 10:34:00 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 Lactated 2019-05 No Route: IV, Mem oria Ringers 2-14 Total l Injection 15:34: Volume: Carly nn IV (ANES) 00 1,000, 1000 mL Start date: 04/28/20 9:34:00 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, Stop date: 04/28/20 10:34:00 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 LR IV 1,000 2019-05 No 1,000 mL, M emoria mL 2-14 Rate: 75 l 14:15: ml/hr, Mallard 00 Infuse over: 13.3 hr, Route: IV, Dosing Weight 83.864 kg, Total Volume: 1,000, Start date: 04/28/20 8:15:00 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, Duration: 30 day, Stop date: 05/28/20 8:14:00 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, 1.93, m2, 0 LR IV 1,000 2019-05 No 1,000 mL, M emoria mL 2-14 Rate: 75 l 14:15: ml/hr, Frandy Infuse over: 13.3 hr, Route: IV, Dosing Weight 83.864 kg, Total Volume: 1,000, Start date: 04/28/20 8:15:00 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, Duration: 30 day, Stop date: 05/28/20 8:14:00 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, 1.93, m2, 0 celecoxib 2019-05 No Notes: Memori a 2-14 NSAID. l 14:00: Please Frandy check indication . Not for seizure. (Same As: CeleBREX) gabapentin 2019-05 No Notes: Memor ia 2-14 (Same as: l 14:00: Neurontin) Mallard 00 ropivacaine 2019-05 No Notes: Jaylan elvin 2-14 NOT FOR l 14:00: IV use Frandy 00 Each mL contains: Ropivacain e 2.46 mg, Epinephrin e 0.005 mg, Clonidine 0.0008 mg and Ketorolac 0.3 mg in Sodium Chloride Oxycontin 2019-05 No Notes: Do Mem oria 2-14 not crush l 14:00: or chew. Mallard 00 (Same as: OxyContin) Tylenol 2019-05 No Notes: Max Jaylan elvin 2-14 acetaminop l 14:00: hen 4000 Frandy 00 mg/day (4 gm/day). (Same as: Tylenol Extra Strength) Tranexamic 2019-05 No Notes: Memor ia Acid 2-14 (Same As: l 14:00: Cyklokapro Frandy 00 n) Cefazolin 2019-05 No 2 gm, 50 Jaylan elvin 2-14 mL, Route: l 14:00: IVP, Drug form: INJ, ONCALL, Dosing Weight 83.892, kg, (Patients weighing < 120 kg), Start date: 04/28/20 8:00:00 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, Duration: 1 doses or times, ABX Indication : Surgical Prophylaxi s, 0 Vancomycin 2019-05 No 2000 mg: Me moria 2-14 infuse l 14:00: over 2.5 Frandy 00 hours celecoxib 2019-05 No Notes: Memori a 2-14 NSAID. l 14:00: Please Frandy 00 check indication . Not for seizure. (Same As: CeleBREX) gabapentin 2019-05 No Notes: Memor ia 2-14 (Same as: l 14:00: Neurontin) Mallard 00 ropivacaine 2019-05 No Notes: Jaylan elvin 2-14 NOT FOR l 14:00: IV use Mallard 00 Each mL contains: Ropivacain e 2.46 mg, Epinephrin e 0.005 mg, Clonidine 0.0008 mg and Ketorolac 0.3 mg in Sodium Chloride Oxycontin 2019-05 No Notes: Do Mem oria 2-14 not crush l 14:00: or chew. Frandy 00 (Same as: OxyContin) Tylenol 2019-05 No Notes: Max Jaylan elvin 2-14 acetaminop l 14:00: hen 4000 Mallard 00 mg/day (4 gm/day). (Same as: Tylenol Extra Strength) Tranexamic 2019-05 No Notes: Memor ia Acid 2-14 (Same As: l 14:00: Cyklokapro Mallard 00 n) Cefazolin 2019-05 No 2 gm, 50 Jaylan elvin 2-14 mL, Route: l 14:00: IVP, Drug Mallard 00 form: INJ, ONCALL, Dosing Weight 83.892, kg, (Patients weighing < 120 kg), Start date: 04/28/20 8:00:00 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, Duration: 1 doses or times, ABX Indication : Surgical Prophylaxi s, 0 Vancomycin 2019-05 No 2000 mg: Me moria 2-14 infuse l 14:00: over 2.5 Frandy 00 hours ropivacaine 2019-05 No 99 ml/hr, M emoria 0.5% 246.25 2-14 Route: l mg + 11:00: intra-PANCHO Frandy EPINEPHrine 00 CULAR, 0.5 mg + ONCALL, cloNIDine Start 80 date: microgram + 04/28/20 Sodium 5:00:00 Chloride 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, Stop 0.9% IV date: 04/28/20 23:59:00 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, 0 vancomycin 2019-05 No Notes: FOR M emoria 2-14 OR USE l 11:00: ONLY Mallard polymyxin B 2019-05 No Notes: Jaylan elvin sulfate + 2-14 (Same as: l Sodium 11:00: Polymyxin Kiko n Chloride 00 B Sulfate) 0.9% IV 250 mL ropivacaine 2019-05 No 99 ml/hr, M emoria 0.5% 246.25 214 Route: l mg + 11:00: intra-PANCHO Mallard EPINEPHrine 00 CULAR, 0.5 mg + ONCALL, cloNIDine Start 80 date: microgram + 04/28/20 Sodium 5:00:00 Chloride 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, Stop 0.9% IV date: 04/28/20 23:59:00 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, 0 vancomycin 2019-05 No Notes: FOR M [...] Sodium 10 2-09 Refill(s) l MG/ML 16:33: Mallard Topical 00 Cream levothyroxi 2019-05 Yes 112 Memori a ne 112 mcg 2-09 microgram l (0.112 mg) 16:32: = 1 cap, Her horn oral 00 PO, Daily, capsule # 30 cap, 3 Refill(s) Escitalopra 2019-05 Yes 40 mg, PO, Memoria m 2-09 Daily, 0 l 16:32: Refill(s) Frandy 00 levothyroxi 2019-05 Yes 112 Memori a ne 112 mcg 2-09 microgram l (0.112 mg) 16:32: = 1 cap, Her horn oral 00 PO, Daily, capsule # 30 cap, 3 Refill(s) Escitalopra 2019-05 Yes 40 mg, PO, Memoria m 2 Daily, 0 l 16:32: Refill(s) Mallard Ketoconazol Ketoconazol 2020- No Gus [address] [facility] 01[facility]14 [facility]00 [facility]-0 Yes 300 mg = 1 Mem oria 300 mg oral 8-25 cap, PO, l capsule 19:32: BID, # 180 Herm kash 00 cap, 0 Refill(s), Pharmacy: [facility], 154.94, cm, 10/30/19 23:53:00 CDT, Height, 82.841, kg, 10/30/19 23:53:00 CDT, Weight ursodiol 0 Yes 300 mg = 1 Mem oria 300 mg oral 8-25 cap, PO, l capsule 19:32: BID, # 180 Herm kash 00 cap, 0 Refill(s), Pharmacy: [facility], 154.94, cm, 10/30/19 23:53:00 CDT, Height, 82.841, kg, 10/30/19 23:53:00 CDT, Weight midodrine 5 2020-0 Yes 5 mg = 1 Me moria mg oral 6-17 tab, PO, l tablet 16:11: TID, # 90 Kiko n 00 tab, 0 Refill(s), Pharmacy: [facility], 154.94, cm, 10/30/19 23:53:00 CDT, Height, 82.841, kg, 10/30/19 23:53:00 CDT, Weight midodrine 5 2020-0 Yes 5 mg = 1 Me moria mg oral 6-17 tab, PO, l tablet 16:11: TID, # 90 Kiko n 00 tab, 0 Refill(s), Pharmacy: [facility], 154.94, cm, 10/30/19 23:53:00 CDT, Height, 82.841, kg, 10/30/19 23:53:00 CDT, Weight Acetaminoph 2020-0 No 1 tab, PO, Memoria en 325 MG / 6-17 Q4H, PRN l Hydrocodone 14:01: for pain, H ermann Bitartrate 00 # 60 tab, 10 MG Oral 0 Tablet Refill(s), [Anderson given to ] patient 0.4 ML 2020-0 [...] tab, 10 MG Oral 0 Tablet Refill(s), [Anderson given to ] patient 0.4 ML 2020-0 [...] 11/29/19 6:30:00 CDT, 0 Vancomycin 2020-0 No 2001 mg: Me moria 6-17 infuse l 07:00: over 2.5 Frandy 00 hours For adult patients only: Round to nearest 250 mg per Medical Staff approval MEDICATION WASTE Product Size: 1000 mg Product Wasted: ___ mg Vancomycin 2020-0 No 2001 mg: Me moria 6-17 infuse l 07:00: over 2.5 Mallard 00 hours For adult patients only: Round to nearest 250 mg per Medical Staff approval MEDICATION WASTE Product Size: 1000 mg Product Wasted: ___ mg Tylenol 2020-0 No Notes: Max Jaylan elvin 6-17 acetaminop l 02:00: hen 4000 Mallard 00 mg/day (4 gm/day). (Same as: Tylenol Extra Strength) Tylenol 2020-0 No Notes: Max Jaylan elvin 6-17 acetaminop l 02:00: hen 4000 Mallard 00 mg/day (4 gm/day). (Same as: Tylenol Extra Strength) Cefazolin 2020-0 No Notes: Memori a 6-17 (Same As: l 00:00: Ancef, Frandy 00 Kefzol) MEDICATION WASTE Product Size: 1000 mg Product Wasted: ___ mg Cefazolin 2020-0 No Notes: Memori a 6-17 (Same As: l 00:00: Ancef, Mallard 00 Kefzol) MEDICATION WASTE Product Size: 1000 [...] a 6-16 (Same l 22:52: as:Proamat Frandy ine) Midodrine 2020-0 No Notes: Memori a 6-16 (Same l 22:52: as:Proamat Frandy ine) NS (Bolus) 2020-0 No 250 mL, Jaylan elvin IV 6-16 250 ml/hr, l 22:51: Infuse Frandy 00 Over: 1 hr, Route: IV, 250, Drug form: INJ, ONCE, Priority: STAT, Dosing Weight 82.727 kg, Start date: 10/30/19 17:51:00 CDT, Stop date: 10/30/19 17:51:00 CDT, 0 NS (Bolus) 2020-0 No 250 mL, Jaylan elvin IV 6-16 250 ml/hr, l 22:51: Infuse Mallard 00 Over: 1 hr, Route: IV, 250, Drug form: INJ, ONCE, Priority: STAT, Dosing Weight 82.727 kg, Start date: 10/30/19 17:51:00 CDT, Stop date: 10/30/19 17:51:00 CDT, 0 Tylenol 2019-0 No Notes: Do Memor ia 6-16 not exceed l 22:36: 4 gm/day. Mallard (Same as: Tylenol) Tylenol 2019-0 No Notes: Do Memor ia 6-16 not exceed l 22:36: 4 gm/day. Mallard (Same as: Tylenol) Roxicodone 2020-0 No Notes: Memor ia 6-16 (Same as: l 22:35: Roxicodone ) Roxicodone 2020-0 No Notes: Memor ia 6-16 (Same as: l 22:35: Roxicodone ) Calcium 2020-0 No 1,000 mL, Memor ia Chloride 6-16 Rate: 125 l 0.0014 20:52: ml/hr, Mallard MEQ/ML / 00 Infuse Potassium over: 8 [...] 25 Memoria 6-16 microgram, l 20:52: Route: IVP, Q5Min, Dosing Weight 82.727, kg, PRN Pain Score 4-6, Priority: Routine, Start date: 10/30/19 15:52:00 CDT, Duration: 4 doses or times, Stop date: Limited # of times Hydromorpho 2020-0 No 0.5 mg, Mem oria ne 10-29 Route: l 20:52: IVP, Q5Min, Dosing Weight 82.727, kg, PRN Pain Score 7-10, Start date: 10/30/19 15:52:00 CDT, Duration: 4 doses or times, Stop date: Limited # of times Flumazenil 2020-0 No 0.2 mg, Jaylan elvin 10-29 Route: l 20:52: IVP, PRN, Dosing Weight 82.727, kg, PRN Benzodiaze pine Reversal, Initial dose, Start date: 10/30/19 15:52:00 CDT, Duration: 30 day, Stop date: 11/29/19 15:51:00 CDT Naloxone 2020-0 No 0.4 mg, Memori a 10-29 Route: l 20:52: IVP, Farndy Q2MIN, Dosing Weight 82.727, kg, PRN Narcotic Reversal, Start date: 10/30/19 15:52:00 CDT, Duration: 8 doses or times, Stop date: Limited # of times Diphenhydra 2020-0 No 12.5 mg, Me moria mine - Route: l 20:52: IVP, Drug Mallard 00 form: INJ, Q6H, Dosing Weight 82.727, kg, [...] Stop date: Limited # of times Ondansetron 2019-0 No 4 mg, Memor ia 10-29 Route: l 20:52: IVP, ONCE, Frandy 00 Dosing Weight 82.727, kg, PRN Nausea & Vomiting, Start date: 10/30/19 15:52:00 CDT Promethazin 2019-0 No 6.25 mg, Me moria e 10-29 Route: l 20:52: IVPB, Frandy 00 ONCE, Dosing Weight 82.727, kg, PRN Nausea & Vomiting, Start date: 10/30/19 15:52:00 CDT 72 HR 2019-0 No 1 patch, Memoria Scopolamine 10-29 Route: [...] 25 Memoria 6-16 microgram, l 20:52: Route: Mallard 00 IVP, Q5Min, Dosing Weight 82.727, kg, PRN Pain Score 4-6, Priority: Routine, Start date: 10/30/19 15:52:00 CDT, Duration: 4 doses or times, Stop date: Limited # of times Hydromorpho 2020-0 No 0.5 mg, Mem oria ne 10-29 Route: l 20:52: IVP, Mallard 00 Q5Min, Dosing Weight 82.727, kg, PRN Pain Score 7-10, Start date: 10/30/19 15:52:00 CDT, Duration: 4 doses or times, Stop date: Limited # of times Flumazenil 2020-0 No 0.2 mg, Jaylan elvin 10-29 Route: l 20:52: IVP, PRN, Dosing Weight 82.727, kg, PRN Benzodiaze pine Reversal, Initial dose, Start date: 10/30/19 15:52:00 CDT, Duration: 30 day, Stop date: 11/29/19 15:51:00 CDT Naloxone 2020-0 No 0.4 mg, Memori a 10-29 Route: l 20:52: IVP, Frandy 00 Q2MIN, Dosing Weight 82.727, kg, PRN Narcotic Reversal, Start date: 10/30/19 15:52:00 CDT, Duration: 8 doses or times, Stop date: Limited # of times Diphenhydra 2020-0 No 12.5 mg, Me moria mine 616 Route: l 20:52: IVP, Drug form: INJ, Q6H, Dosing Weight 82.727, kg, PRN Itching, Start date: 10/30/19 15:52:00 CDT, Duration: 30 day, Stop date: 11/29/19 15:51:00 CDT Meperidine 2019-0 No 12.5 mg, Mem oria 6- Route: l 20:52: IVP, Mallard 00 Q30Min, Dosing Weight 82.727, kg, PRN Other -See Comment, For shivering, Start date: 10/30/19 15:52:00 CDT, Duration: 2 doses or times, Stop date: Limited # of times Ondansetron 2019-0 No 4 mg, Memor ia 6- Route: l 20:52: IVP, ONCE, Dosing Weight 82.727, kg, PRN Nausea & Vomiting, Start date: 10/30/19 15:52:00 CDT Promethazin 2019-0 No 6.25 mg, Me moria e 10-29 Route: l 20:52: IVPB, ONCE, Dosing Weight 82.727, kg, PRN Nausea & Vomiting, Start date: 10/30/19 15:52:00 CDT 72 HR 0 No 1 patch, Memoria Scopolamine 10-29 Route: l 0.0139 20:52: TOP, Drug Kiko n MG/HR 00 Form: Transdermal ERFILM, Patch Dosing Weight 82.727, kg, ONCE, Apply behind ear. Avoid use in elderly., Start date: 10/30/19 15:52:00 CDT, Stop date: 10/30/19 15:52:00 CDT Enoxaparin 2019-0 No Notes: Memor ia 6-16 (Same as: l 20:00: Lovenox) Enoxaparin 2019-0 No Notes: Memor ia 6-16 (Same as: l 20:00: Lovenox) vasopressin 2019-0 No Route: IV, Memoria (ANES) 6-16 Drug form: l 19:57: INJ, ONCE, Stop date: 10/30/19 14:57:00 CDT vasopressin 2019-0 No Route: IV, Memoria (ANES) 6-16 Drug form: l 19:57: INJ, ONCE, Stop date: 10/30/19 14:57:00 CDT Insulin 2020-0 No Notes: Memoria Lispro 6-16 (Same as: [...] 0 Glucagon 2019-0 No 1 mg, Memoria 6-16 Route: IM, l 19:55: Drug form: PDR/INJ, PRN, Dosing Weight 82.727, kg, PRN Blood Glucose Results, Start date: 10/30/19 14:55:00 CDT, Duration: 30 day, Stop date: 11/29/19 14:54:00 CDT, 0 Acetaminoph 2020-0 No Notes: Do M emoria en 325 MG / -16 not exceed l Hydrocodone 19:55: 4gm/day of Bitartrate 00 acetaminop 10 MG Oral hen. Tablet (Same as: [Anderson Anderson 10/325] 325/10) Acetaminoph 2020-0 No 1 tab, Jaylan elvin en 325 MG / 6-16 Route: PO, l Oxycodone 19:55: Dosing Kiko n Hydrochlori 00 Weight de 10 MG 82.727, Oral Tablet kg, Q3H, [Percocet PRN Pain 10/325] Score 7-10, Start date: 10/30/19 14:55:00 CDT, Duration: 30 day, Stop date: 11/29/19 14:54:00 CDT Zofran 2019-0 No Notes: Memoria 6-16 (Same as: l 19:55: Zofran) MEDICATION WASTE Product Size: 4 mg Product Wasted: ___ mg Tranexamic No Notes: Memor ia Acid -16 (Same As: l 19:55: Cyklokapro n) Acetaminoph No Notes: Jaylan elvin en 325 MG / 6-16 (Same as: l Hydrocodone 19:55: Anderson Carly nn Bitartrate 00 325/5) Do 5 MG Oral not exceed Tablet 4gm/day of [Anderson acetaminop 5/325] hen. Insulin No Notes: Memoria Lispro -16 (Same as: l 19:55: Humalog) Roll in palms of hands gently; Do not shake vigorously . WASTE: F/P - Black; E - Municipal Trash Bin Stable for 28 days at room temperatur e. Expires in days from ____Date 05/17 NS 2019-0 No 1,000 mL, Memori a 1,000 mL 6-16 Rate: 75 l 19:55: ml/hr, Infuse over: 13.3 hr, Route: IV, Dosing Weight 82.727 kg, Total Volume: 1,000, Start date: 10/30/19 14:55:00 CDT, Duration: 30 day, Stop date: 11/29/19 14:54:00 CDT, 1.92, m2, 0 Dextrose No 12.5 gm, Memor ia 50% Syringe 6-16 25 mL, l (D50W) 19:55: Route: IVP, Drug Form: INJ, Dosing Weight 82.727, kg, PRN, PRN Blood Glucose Results, Start date: 10/30/19 14:55:00 CDT, Duration: 30 day, Stop date: 11/29/19 14:54:00 CDT, 0 Glucagon No 1 mg, Memoria 6-16 Route: IM, l 19:55: Drug form: Mallard 00 PDR/INJ, PRN, Dosing Weight 82.727, kg, PRN Blood Glucose Results, Start date: 10/30/19 14:55:00 CDT, Duration: 30 day, Stop date: 11/29/19 14:54:00 CDT, 0 Acetaminoph 0 No Notes: Do M emoria en 325 MG / 6-16 not exceed l Hydrocodone 19:55: 4gm/day of Mallard Bitartrate 00 acetaminop 10 MG Oral hen. Tablet (Same as: [Anderson Anderson 10/325] 325/10) Acetaminoph No 1 tab, Jaylan elvin en 325 MG / 6-16 Route: PO, l Oxycodone 19:55: Dosing Kiko n Hydrochlori 00 Weight de 10 MG 82.727, Oral Tablet kg, Q3H, [Percocet PRN Pain 10/325] Score 7-10, Start date: 10/30/19 14:55:00 CDT, Duration: 30 day, Stop date: 11/29/19 14:54:00 CDT Zofran No Notes: Memoria 6-16 (Same as: l 19:55: Zofran) Frandy 00 MEDICATION WASTE Product Size: 4 mg Product Wasted: ___ mg Tranexamic No Notes: Memor ia Acid 6-16 (Same As: l 19:55: Cyklokapro Mallard 00 n) Acetaminoph 0 No Notes: Jaylan elvin en 325 MG / 6-16 (Same as: l Hydrocodone 19:55: Anderson Carly nn Bitartrate 00 325/5) Do 5 MG Oral not exceed Tablet 4gm/day of [Anderson acetaminop 5/325] hen. calcium No Route: IV, Jaylan elvin chloride 6-16 Drug form: l (ANES) 19:41: INJ, ONCE, Carly nn 00 Stop date: 10/30/19 14:41:00 CDT calcium 2020-0 No Route: IV, Jaylan elvin chloride 6-16 Drug form: l (ANES) 19:41: INJ, ONCE, Carly Stop date: 10/30/19 14:41:00 CDT Sodium 2020-0 No Route: IV, Memor [...] form: l 100 mg 18:02: INJ, Start date: 10/30/19 13:02:00 CDT, Stop date: 10/30/19 14:02:00 CDT tranexamic 2020-0 No Route: IV, M emoria acid (ANES) 6-16 Drug form: l 100 mg 18:02: INJ, Start date: 10/30/19 13:02:00 CDT, Stop date: 10/30/19 14:02:00 CDT vancomycin 2019-0 No Route: IV, M emoria (ANES) 1000 6-16 Drug form: l mg 17:55: INJ, Start date: 10/30/19 12:55:00 CDT, Stop date: 10/30/19 13:55:00 CDT vancomycin 2020-0 No Route: IV, M emoria (ANES) 1000 6-16 Drug form: l mg 17:55: INJ, Start date: 10/30/19 12:55:00 CDT, Stop date: 10/30/19 13:55:00 CDT midazolam 2020-0 No Route: IV, Me moria (ANES) 6-16 Drug form: l 17:49: SOLN, Frandy ONCE, Stop date: 10/30/19 12:49:00 CDT midazolam 2020-0 No Route: IV, Me moria (ANES) 6-16 Drug form: l 17:49: SOLN, Mallard ONCE, Stop date: 10/30/19 12:49:00 CDT Lactated [...] Jaylan elvin 6-16 Route: PO, l 14:00: Frandy LEACH Dosing Weight 82.727, kg, Start date: 10/30/19 9:00:00 CDT, Duration: 30 day, Stop date: 11/29/19 8:59:00 CDT ropivacaine 2020-0 No 100 mL, Mem oria 6-16 Route: l 14:00: InFILtrati Frandy on(local), Drug Form: INJ, Dosing Weight 82.727, kg, ONCALL, Start date: 10/30/19 9:00:00 CDT, Duration: 30 day, Stop date: 11/29/19 8:59:00 CDT Oxycontin 2020-0 No 10 mg, Memori a 6-16 Route: PO, l 14:00: Drug form: Frandy ERTAB, ONCALL, Dosing Weight 82.727, kg, Start date: 10/30/19 9:00:00 CDT, Duration: 30 day, Stop date: 11/29/19 8:59:00 CDT Tylenol 2020-0 No 1,000 mg, Memor ia 6-16 Route: PO, l 14:00: HANY Dosing Weight 82.727, kg, Start date: 10/30/19 9:00:00 CDT, Duration: 30 day, Stop date: 11/29/19 8:59:00 CDT Cefazolin 2020-0 No Notes: Memori a 6-16 (Same As: l 14:00: AncFrandy hamilton Kefzol) MEDICATION WASTE Product Size: 1000 mg Product Wasted: ___ mg Vancomycin 2020-0 No 2001 mg: Me moria 6-16 infuse l 14:00: over 2.5 hours For adult patients only: Round to nearest 250 mg per Medical Staff approval MEDICATION WASTE Product Size: 1000 mg Product Wasted: ___ mg gabapentin 2020-0 No 300 mg, Jaylan elvin 6-16 Route: PO, l 14:00: HANY Dosing Weight 82.727, kg, Start date: 10/30/19 9:00:00 CDT, Duration: 30 day, Stop date: 11/29/19 8:59:00 CDT ropivacaine 2020-0 No 100 mL, Mem oria 6-16 Route: l 14:00: InFILtrati on(local), Drug Form: INJ, Dosing Weight 82.727, kg, ONCDARRICK, Start date: 10/30/19 9:00:00 CDT, Duration: 30 day, Stop date: 11/29/19 8:59:00 CDT Oxycontin 2020-0 No 10 mg, Memori a 6-16 Route: PO, l 14:00: Drug form: ERTABSARYALL, Dosing Weight 82.727, kg, Start date: 10/30/19 9:00:00 CDT, Duration: 30 day, Stop date: 11/29/19 8:59:00 CDT Tylenol 2020-0 No 1,000 mg, Memor ia 6-16 Route: PO, l 14:00: ONCALL, Mallard 00 Dosing Weight 82.727, kg, Start date: 10/30/19 9:00:00 CDT, Duration: 30 day, Stop date: 11/29/19 8:59:00 CDT Cefazolin 2019-0 No Notes: Memori a 6-16 (Same As: l 14:00: Ancef, Mallard 00 Kefzol) MEDICATION WASTE Product Size: 1000 mg Product Wasted: ___ mg Vancomycin 2020-0 No 2000 mg: Me moria 6-16 infuse l 14:00: over 2.5 Frandy 00 hours For adult patients only: Round to nearest 250 mg per Medical Staff approval MEDICATION WASTE Product Size: 1000 mg Product Wasted: ___ mg Calcium 2020-0 No 1,000 mL, Memor ia Chloride -16 Rate: 75 l 0.0014 13:28: ml/hr, Mallard MEQ/ML / 00 Infuse Potassium over: 13.3 Chloride hr, Route: 0.004 IV, Dosing MEQ/ML / Weight Sodium 82.727 kg, Chloride Total 0.103 Volume: MEQ/ML / 1,000, Sodium Start Lactate date: 0.028 20 MEQ/ML 8:28:00 Injectable CDT, Solution Duration: 30 day, Stop date: 11/29/19 8:27:00 CDT, 1.92, m2 Calcium 2020-0 No 1,000 mL, Memor ia Chloride -16 Rate: 75 l 0.0014 13:28: ml/hr, Frandy MEQ/ML / 00 Infuse Potassium over: 13.3 Chloride hr, Route: 0.004 IV, Dosing MEQ/ML / Weight Sodium 82.727 kg, Chloride Total 0.103 Volume: MEQ/ML / 1,000, Sodium Start Lactate date: 0.028 20 MEQ/ML 8:28:00 Injectable CDT, Solution Duration: 30 day, Stop date: 11/29/19 8:27:00 CDT, 1.92, m2 1 ML 2020-0 Yes See Memoria alirocumab 6-11 Instructio l 75 MG/ML 17:51: ns, SUB-Q, Her horn Auto-Inject 00 0 or Refill(s) [Praluent] 1 ML 2020-0 Yes See Memoria alirocumab - Instructio l 75 MG/ML 17:51: ns, SUB-Q, Her horn Auto-Inject 00 0 or Refill(s) [Praluent] empaglifloz 2020-0 Yes 10 mg = 1 M emoria in 10 MG 6-11 tab, PO, l Oral Tablet 17:50: QAM, 0 Herm kash [Jardiance] 00 Refill(s) Vitamin D3 2020-0 Yes See Memoria - Instructio l 17:50: ns, Daily, Mallard 00 0 Refill(s) empaglifloz 2020-0 Yes 10 mg = 1 M emoria in 10 MG 6-11 tab, PO, l Oral Tablet 17:50: QAM, 0 Herm kash [Jardiance] 00 Refill(s) Vitamin D3 2020-0 Yes See Memoria -11 Instructio l 17:50: ns, Daily, Frandy 00 0 Refill(s) ursodiol 2020-0 Yes 300 mg = 1 Mem oria 300 mg oral 6-10 cap, PO, l capsule 16:17: BID, # 180 Herm kash 00 cap, 0 Refill(s), Pharmacy: [facility] ursodiol 2020-0 Yes 300 mg = 1 Mem oria 300 mg oral 6-10 cap, PO, l capsule 16:17: BID, # 180 Herm kash 00 cap, 0 Refill(s), Pharmacy: [facility] Smoothie 2020-0 No 450 mL, Memori a Readi-Cat 2 3-19 Susp, l 18:00: Oral, Mallard 00 Once, first dose 08/02/19 13:00:00 CDT, stop date 08/02/19 13:00:00 CDT, Out-Patien t Smoothie 2020-0 No 450 mL, Memori a Readi-Cat 2 3-19 Susp, l 18:00: Oral, Frandy 00 Once, first dose 08/02/19 13:00:00 CDT, stop date 08/02/19 13:00:00 CDT, Out-Patien t Saline Lock 2019-0 No 10 mL, Jaylan elvin Flush 3-19 Soln, IV l 17:59: Push, As Frandy 00 Indicated PRN for flush, first dose 08/02/19 12:59:00 CDT Saline Lock No 10 mL, Jaylan elvin Flush 3-19 Soln, IV l 17:59: Push, As Indicated PRN for flush, first dose 08/02/19 [...] MG tablet 16:15: daily. Medica l 22 [place] loratadine Yes 10mg Take [address] (CLARITIN) 8-10 by mouth [facility] - 10 mg 16:15: as needed. Medica [facility] tablet 22 [facility] cholecalcif Yes 2000U QD Take 2,[address] [facility] mirian, 8-10 Units by [facility] - vitamin D3, 16:15: mouth Medic al 2,000 unit 22 daily. [place] Tab RASUVO, PF, Yes 20mg Q7D Inject [address] 20 mg/0.4 7-24 mg [facility] - mL AtIn 00:00: subcutaneo Medi richy 00 usly once Center a week. folic acid Yes 1000ug QD Take 1,[address] [facility] (FOLVITE) 1 7-02 mcg by [facility] - MG tablet 00:00: mouth Medical 00 daily. [place] TRADJENTA 5 Yes 5mg QD Take 5 [...] 1-25 tab, PO, l Tablet 19:26: Daily, Mallard 00 tab, 0 Refill(s) Aspirin 81 Yes 81 mg = 1 Me moria MG Chewable 1-25 tab, PO, l Tablet 19:26: Daily, Mallard 00 tab, 0 Refill(s) Docusate Yes 100 [...] ia 1-25 Take 1 l 15:00: hour 00 before or 2 hours after meal; Enteral feeds may interefere with the absorption of this medication . (Same as:Levothr oid) Escitalopra No Notes: Jaylan elvin m 1-25 (Same as: l 15:00: Lexapro) Frandy aspirin 325 No Notes: Jaylan elvin mg tablet 1-25 Take with l 15:00: food. 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 "Single Patient Use Only " WASTE: F/P - Black; E - Municipal Trash Bin Stable for 28 days at room temperatur e. 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 "Single Patient Use Only " WASTE: F/P - Black; E - Municipal Trash Bin Stable for 28 days at room temperatur e. Expires in days from ____Date Levalbutero No Notes: Jaylan elvin l 24 Same as l 23:00: Xopenex Mallard HFA WASTE: Aerosol - Return to Pharmacy Docusate No Notes: Memoria 06-08 (Same as: l 23:00: Colace) Frandy (Do Not Crush) ceFAZolin + No Notes: Jaylan elvin sterile 06-08 (Same As: l water 20 mL 23:00: Ancef, Herm kash 00 Kefzol) MEDICATION WASTE Product Size: 1000 mg Product Wasted: ___ mg Levalbutero No Notes: Jaylan elvin l -24 Same as l 23:00: Xopenex Frandy HFA WASTE: Aerosol - Return to Pharmacy Docusate No Notes: Memoria 24 (Same as: l 23:00: Colace) Mallard (Do Not Crush) ceFAZolin + No Notes: Jaylan elvin sterile 24 (Same As: l water 20 mL 23:00: Ancef, Herm kash 00 Kefzol) MEDICATION WASTE Product Size: 1000 mg Product Wasted: ___ mg Cefazolin 2018-0 No 1 gm, Memoria 06-08 Route: l 22:00: IVPB, Drug form: INJ, Q8H, Dosing Weight 85.3, kg, Start date: 06/08/17 16:00:00 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, Duration: 1 doses or times, Stop date: 06/08/17 16:00:00 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, ABX Indication : Surgical Prophylaxi s Cefazolin 2018-0 No 1 gm, Memoria 06-08 Route: l 22:00: IVPB, Drug form: INJ, Q8H, Dosing Weight 85.3, kg, Start date: 06/08/17 16:00:00 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, Duration: 1 doses or times, Stop date: 06/08/17 16:00:00 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, ABX Indication : Surgical Prophylaxi s ondansetron 2017-0 No Route: IV, Memoria (ANES) 06-08 Drug form: l 16:04: INJ, ONCE, Stop date: 06/08/17 10:04:00 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 famotidine 2017-0 No Route: IV, M emoria (ANES) 06-08 Drug form: l 16:04: INJ, ONCE, Stop date: 06/08/17 10:04:00 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 neostigmine 2017-0 No Route: IV, Memoria (ANES) 06-08 Drug form: l 16:04: INJ, ONCE, Stop date: 06/08/17 10:04:00 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 glycopyrrol 2017-0 No Route: IV, Memoria ate (ANES) 06-08 Drug form: l 16:04: INJ, ONCE, Stop date: 06/08/17 10:04:00 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 ondansetron 2018-0 No Route: IV, Memoria (ANES) 06-08 Drug form: l 16:04: INJ, ONCE, Stop date: 06/08/17 10:04:00 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 famotidine 2018-0 No Route: IV, M emoria (ANES) 06-08 Drug form: l 16:04: INJ, ONCE, Stop date: 06/08/17 10:04:00 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 neostigmine 2018-0 No Route: IV, Memoria (ANES) 06-08 Drug form: l 16:04: INJ, ONCE, Stop date: 06/08/17 10:04:00 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 glycopyrrol 2018-0 No Route: IV, Memoria ate (ANES) 06-08 Drug form: l 16:04: INJ, ONCE, Stop date: 06/08/17 10:04:00 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 Glucagon 2018-0 No 1 mg, Memoria 06-08 Route: IM, l 16:03: Drug form: Frandy 00 PDR/INJ, PRN, Dosing Weight 85.3, kg, PRN Blood Glucose Results, Start date: 06/08/17 10:03:00 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, Duration: 30 day, Stop date: 07/08/17 10:02:00 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 Insulin 2018-0 No Notes: Memoria Lispro 24 (Same as: l 16:03: Humalog ) Frandy 00 Roll in palms of hands gently; Do not shake `vigorousl y. "Single Patient Use Only " WASTE: F/P - Black; E - Municipal Trash Bin Stable for 28 days at room temperatur e. Expires in days from ____Date Dextrose 2018-0 No 12.5 gm, Memor ia 50% Syringe 06-08 25 mL, l 16:03: Route: Frandy 00 IVP, Drug Form: INJ, Dosing Weight 85.3, kg, PRN, PRN Blood Glucose Results, Start date: 06/08/17 10:03:00 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, Duration: 30 day, Stop date: 07/08/17 10:02:00 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 Glucagon 2018-0 No 1 mg, Memoria 06-08 Route: IM, l 16:03: Drug form: Mallard 00 PDR/INJ, PRN, Dosing Weight 85.3, kg, PRN Blood Glucose Results, Start date: 06/08/17 10:03:00 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, Duration: 30 day, Stop date: 07/08/17 10:02:00 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 Insulin 2018-0 No Notes: Memoria Lispro -24 (Same as: l 16:03: Humalog ) Frandy 00 Roll in palms of hands gently; Do not shake `vigorousl y. "Single Patient Use Only " WASTE: F/P - Black; E - Municipal Trash Bin Stable for 28 days at room temperatur e. Expires in days from ____Date Dextrose No 12.5 gm, Memor ia 50% Syringe 06-08 25 mL, l 16:03: Route: Frandy 00 IVP, Drug Form: INJ, Dosing Weight 85.3, kg, PRN, PRN Blood Glucose Results, Start date: 06/08/17 10:03:00 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, Duration: 30 day, Stop date: 07/08/17 10:02:00 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 Bisacodyl No Notes: Memori a 06-08 (Same As: l 15:59: Dulcolax, Mallard Correctol) (Do Not Crush) "Do Not Crush" Dexamethaso No Notes: Jaylan elvin ne 06-08 Concentrat l 15:59: ion: Frandy 00 4mg/ml Methocarbam No Notes: Jaylan elvin ol 06-08 (Same l 15:59: as:Robaxin Frandy ) Acetaminoph No Notes: Jaylan elvin en 325 MG / 06-08 Same as l Hydrocodone 15:59: Anderson Carly nn Bitartrate 00 325-7.5mg 7.5 MG Oral Do not Tablet exceed [Anderson 4gm/day of 7.5/325] acetaminop hen. Oxycodone No Notes: Memori a Hydrochlori 06-08 (Same as: l de 5 MG 15:59: Roxicodone Herm kash Oral Tablet 00 ) Aluminum No 30 mL, Memoria Hydroxide / 06-08 Route: PO, l magnesium 15:59: Dosing Kiko n carbonate 00 Weight 85.3, kg, Q4H, PRN as needed for indigestio n, Start date: 06/08/17 9:59:00 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 Maalox No Notes: Memoria Advanced 06-08 (aluminum l Regular 15:59: hydroxide- Herm kash Strength 00 magnesium SUSP hyd-simeth icone 200-200-20 mg/5ml 30 ml ud CLAYTON) Zofran No Notes: Memoria -24 (Same as: l 15:59: Zofran) MEDICATION WASTE Product Size: 4 mg Product Wasted: ___ mg Meperidine No Notes: Memor ia 06-08 (Same as: l 15:59: Demerol) "Use Precaution in Elderly, Seizure disorders, and Renal impairment " Phenergan No Notes: Do Mem oria 06-08 not give l 15:59: IV push. (Same as: Phenergan) Temazepam No Notes: Memori a 06-08 (Same As: l 15:59: Restoril) Acetaminoph No Notes: Do M emoria en 06-08 not exceed l 15:59: 4 gm/day. (Same as: Tylenol) 1/2NS + KCL No [...] a 06-08 (Same As: l 15:59: Dulcolax, Correctol) (Do Not Crush) "Do Not Crush" Dexamethaso No Notes: Jaylan elvin ne 06-08 Concentrat l 15:59: ion: 4mg/ml Methocarbam No Notes: Jaylan elvin ol 06-08 (Same l 15:59: as:Robaxin ) Acetaminoph No Notes: Jaylan elvin en 325 MG / 06-08 Same as l Hydrocodone 15:59: Anderson Carly nn Bitartrate 00 325-7.5mg 7.5 MG Oral Do not Tablet exceed [Anderson 4gm/day of 7.5/325] acetaminop hen. Oxycodone No Notes: Memori a Hydrochlori 06-08 (Same as: l de 5 MG 15:59: Roxicodone Herm kash Oral Tablet 00 ) Aluminum 0 No 30 mL, Memoria Hydroxide / 24 Route: PO, l magnesium 15:59: Dosing Kiko n carbonate 00 Weight 85.3, kg, Q4H, PRN as needed for indigestio n, Start date: 06/08/17 9:59:00 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 Maalox No Notes: Memoria Advanced 06-08 (aluminum l Regular 15:59: hydroxide- Herm kash Strength 00 magnesium SUSP hyd-simeth icone 200-200-20 mg/5ml 30 ml ud CLAYTON) Zofran No Notes: Memoria 24 (Same as: l 15:59: Zofran) Frandy MEDICATION WASTE Product Size: 4 mg Product Wasted: ___ mg Meperidine No Notes: Memor ia 06-08 (Same as: l 15:59: Demerol) Frandy "Use Precaution in Elderly, Seizure disorders, and Renal impairment " Phenergan No Notes: Do Mem oria 06-08 not give l 15:59: IV push. Mallard (Same as: Phenergan) Temazepam No Notes: Memori a 06-08 (Same As: l 15:59: Restoril) Frandy Acetaminoph No Notes: Do M emoria en 06-08 not exceed l 15:59: 4 gm/day. Mallard 00 (Same as: Tylenol) 1/2NS + KCL No Notes: Jaylan elvin 20mEq/L 06-08 PREMIX IV l 1000ml 15:59: - Do Not Mallard (Premix) 00 Alter 1,000 mL WASTE: F/P - Sink; E - Municipal Trash Bin tramadol No Notes: Not Mem oria hydrochlori 24 to exceed l de 50 MG 15:59: 400mg/day. Her horn Oral Tablet 00 (Same As: [Ultram] Ultram) Ondansetron No 4 mg, Memor ia 06-08 Route: l 15:52: IVP, Drug Mallard form: INJ, ONCE, Dosing Weight 85.3, kg, PRN Nausea & Vomiting, Start date: 06/08/17 9:52:00 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 Flumazenil No Notes: Memor ia 06-08 (Same as: l 15:52: Romazicon) Naloxone No Notes: Memoria 06-08 Same as l 15:52: Narcan Atropine No Notes: Mem oria 06-08 MEDICATION l 15:52: WASTE Product Size: 1 [...] Pain Score 7-10, Start date: 06/08/17 9:52:00 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, Duration: 4 doses or times, Stop date: [...] Nausea & Vomiting, Start date: 06/08/17 9:52:00 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 Flumazenil No Notes: Memor ia 24 (Same as: l 15:52: Romazicon) Naloxone No Notes: Memoria 24 Same as l 15:52: Narcan Atropine No Notes: Mem oria 24 MEDICATION l 15:52: WASTE Product Size: 1 [...] Pain Score 7-10, Start date: 06/08/17 9:52:00 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, Duration: 4 doses or times, Stop date: Limited # of times Acetaminoph No Notes: Jaylan elvin en 06-08 Infuse l 15:52: over 15 minutes Do not exceed 4gm/day of acetaminop hen MEDICATION WASTE Product Size: 1000 mg Product Wasted: ___ mg dexamethaso No Route: IV, Memoria ne (ANES) 06-08 Drug form: l 15:44: INJ, ONCE, Stop date: 06/08/17 9:44:00 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 dexamethaso No Route: IV, Memoria ne (ANES) 24 Drug form: l 15:44: INJ, ONCE, Stop date: 06/08/17 9:44:00 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 hydromorpho No Route: IV, Memoria ne (ANES) 06-08 Drug form: l 15:39: INJ, ONCE, Stop date: 06/08/17 9:39:00 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 lidocaine 2018-0 No Route: IV, Me moria (ANES) 06-08 Drug form: l 15:39: INJ, ONCE, Stop date: 06/08/17 9:39:00 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 hydromorpho 2018-0 No Route: IV, Memoria ne (ANES) 06-08 Drug form: l 15:39: INJ, ONCE, Stop date: 06/08/17 9:39:00 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 lidocaine 2018-0 No Route: IV, Me moria (ANES) 06-08 Drug form: l 15:39: INJ, ONCE, Stop date: 06/08/17 9:39:00 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 rocuronium 2018-0 No Route: IV, M emoria (ANES) 06-08 Drug form: l 15:34: INJ, ONCE, Stop date: 06/08/17 9:34:00 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 propofol 2018-0 No Route: IV, Mem oria (ANES) 06-08 Drug form: l 15:34: INJ, ONCE, Stop date: 06/08/17 9:34:00 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 fentaNYL 2018-0 No Route: IV, Mem oria (ANES) 06-08 Drug form: l 15:34: INJ, ONCE, Stop date: 06/08/17 9:34:00 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 midazolam 2018-0 No Route: IV, Me moria (ANES) 06-08 Drug form: l 15:34: SOLN, Mallard ONCE, Stop date: 06/08/17 9:34:00 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 ceFAZolin 2018-0 No Route: IV, Me moria (ANES) 06-08 Drug form: l 15:34: INJ, ONCE, Stop date: 06/08/17 9:34:00 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 rocuronium 2018-0 No Route: IV, M emoria (ANES) 06-08 Drug form: l 15:34: INJ, ONCE, Stop date: 06/08/17 9:34:00 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 propofol 2018-0 No Route: IV, Mem oria (ANES) 06-08 Drug form: l 15:34: INJ, ONCE, Stop date: 06/08/17 9:34:00 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 fentaNYL 2018-0 No Route: IV, Mem oria (ANES) 06-08 Drug form: l 15:34: INJ, ONCE, Stop date: 06/08/17 9:34:00 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 midazolam 2018-0 No Route: IV, Me moria (ANES) 06-08 Drug form: l 15:34: SOLN, Frandy 00 ONCE, Stop date: 06/08/17 9:34:00 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 ceFAZolin 2017-0 No Route: IV, Me moria (ANES) 06-08 Drug form: l 15:34: INJ, ONCE, Stop date: 06/08/17 9:34:00 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 Isolyte S 2017-0 No Route: IV, Me moria PH 7.4 -24 Total l (ANES) 1000 14:23: Volume: Her horn mL 00 1,000, Start date: 06/08/17 8:23:00 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, Stop date: 06/08/17 9:23:00 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 Isolyte S 2017-0 No Route: IV, Me moria PH 7.4 -24 Total l (ANES) 1000 14:23: Volume: Her horn mL 00 1,000, Start date: 06/08/17 8:23:00 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, Stop date: 06/08/17 9:23:00 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 escitalopra 2017- Yes 20 mg = 1 M emoria m 20 mg 1-17 tab, PO, l oral tablet 19:38: Daily, # David rmann 00 30 tab, 0 Refill(s) Aspirin 325 No 325 mg = 1 Memoria MG Enteric 1-17 tab, PO, l Coated 19:38: Daily, # Frandy Tablet 00 30 tab, 0 Refill(s) Loratadine No 10 mg = 1 Me moria 10 MG Oral 1-17 tab, PO, l Tablet 19:38: Daily, # 7 Carly nn [Claritin] 00 tab, 0 Refill(s) escitalopra Yes 20 mg = 1 M emoria m 20 mg 1-17 tab, PO, l oral tablet 19:38: Daily, # David rmann 00 30 tab, 0 Refill(s) Aspirin 325 No 325 mg = 1 Memoria MG Enteric 1-17 tab, PO, l Coated 19:38: Daily, # Frandy Tablet 00 30 tab, 0 Refill(s) Loratadine No 10 mg = 1 Me moria 10 MG Oral 1-17 tab, PO, l Tablet 19:38: Daily, # 7 Carly nn [Claritin] 00 tab, 0 Refill(s) 1 ML No 75 mg, [...] a 1-08 Take 1 l 15:00: hour Mallard 00 before or 2 hours after meal; [...] MG/ML 03:00: Ancef Frandy Prefilled 00 Syringe 10 ML No Notes: Memoria Cefazolin 1-08 Same as: l 100 MG/ML 03:00: Ancef Mallard Prefilled 00 Syringe Potassium No Notes: Memori a Chloride 1-08 (Same as: l 00:51: K-Dur 20) Frandy 00 "Do Not Crush" With food and full glass of water Potassium No Notes: Memori a Chloride 1-08 (Same as: l 00:51: K-Dur 20) Mallard 00 "Do Not Crush" With food and full glass of water Docusate No Notes: Memoria 1-07 (Same as: l 23:00: Colace) Mallard 00 (Do Not Crush) Docusate No Notes: Memoria 1-07 (Same as: l 23:00: Colace) Mallard 00 (Do Not Crush) dexamethaso 2015-0 No Notes: Jaylan elvin ne - Give with l 22:30: food. Frandy 00 (Same As: Decadron) dexamethaso 2014-0 No Notes: Jaylan elvin ne -07 Give with l 22:30: food. Frandy 00 (Same As: Decadron) 10 ML 2014- No 1 gm, Memoria Cefazolin 05-22 Route: l 100 MG/ML 22:00: IVPB, Drug He rmann Prefilled 00 form: INJ, Syringe Q8H, Dosing Weight 83.1, kg, Start date: 05/22/14 16:00:00, Duration: 1 doses or times, Stop date: 05/22/14 16:00:00 10 ML 2014-0 No 1 gm, Memoria Cefazolin 05-22 Route: l 100 MG/ML 22:00: IVPB, Drug He rmann Prefilled 00 form: INJ, Syringe Q8H, Dosing Weight 83.1, kg, Start date: 05/22/14 16:00:00, Duration: 1 doses or times, Stop date: 05/22/14 16:00:00 Insulin, 2014-0 No Notes: Memoria Aspart, 05-22 Roll in l Human 19:48: palms of Frandy 00 hands gently; Do not shake vigorously [...] 30 day, Stop date: 06/21/14 13:47:00 Glucagon 2014- No 1 mg, Memoria 05-22 Route: IM, l 19:48: Drug form: Fradny 00 PDR/INJ, PRN, Dosing Weight 83.1, kg, PRN Blood Glucose Results, Start date: 05/22/14 13:48:00, Duration: 30 day, Stop date: 06/21/14 13:47:00 Insulin, No Notes: Memoria Aspart, 05-22 Roll in l Human 19:48: palms of Mallard 00 hands gently; Do not shake vigorously . (Same as: NovoLOG) "single patient use only" Stable for 28 days at room temperatur e. Expires in days from ____Date Dextrose No 25 gm, 50 Jaylan elvin 50% Syringe - mL, Route: l 19:48: IVP, Drug Frandy 00 Form: INJ, Dosing Weight 83.1, kg, PRN, PRN Blood Glucose Results, Start date: 05/22/14 13:48:00, Duration: 30 day, Stop date: 06/21/14 13:47:00 Glucagon No 1 mg, Memoria 05-22 Route: IM, l 19:48: Drug form: Frandy 00 PDR/INJ, PRN, Dosing Weight 83.1, kg, PRN Blood Glucose Results, Start date: 05/22/14 13:48:00, Duration: 30 day, Stop date: 06/21/14 13:47:00 Maalox No Notes: Memoria Advanced 05-22 (aluminum l Regular 19:45: hydroxide- Herm kash Strength magnesium SUSP hyd-simeth icone 200-200-20 mg/5ml 30 ml ud CLAYTON) Bisacodyl No Notes: Memori a 05-22 (Same As: l 19:45: Dulcolax, Mallard 00 Correctol) (Do Not Crush) "Do Not Crush" Methocarbam No Notes: Jaylan elvin ol 05-22 (Same l 19:45: as:Robaxin Frandy 00 ) Dexamethaso No 4 mg, Memor ia ne 05-22 Route: l 19:45: IVP, ONCE, Mallard 00 Dosing Weight 83.1, kg, Start date: 05/22/14 13:45:00, Stop date: 05/22/14 13:45:00 Temazepam No Notes: Memori a 05-22 (Same As: l 19:45: Restoril) Mallard Zofran No Notes: Memoria 05-22 (Same as: l 19:45: Zofran) Frandy 00 Meperidine No Notes: Memor ia 05-22 (Same as: l 19:45: Demerol) Mallard 00 "Use Precaution in Elderly, Seizure disorders, and Renal impairment " Acetaminoph No Notes: Do M emoria en 05-22 not exceed l 19:45: 4 gm/day. Frandy 00 (Same as: Tylenol) Phenergan No Notes: Do Mem oria 05-22 not give l 19:45: IV push. Mallard 00 (Same as: Phenergan) Acetaminoph No Notes: Jaylan elvin en 21.7 05-22 Same as l MG/ML / 19:45: Anderson Mallard Hydrocodone 00 325-7.5mg Bitartrate Do not 0.5 [...] a 05-22 (Same As: l 19:45: Dulcolax, Mallard 00 Correctol) (Do Not Crush) "Do Not [...] 05-22 not exceed l 19:45: 4 gm/day. (Same as: Tylenol) Phenergan No Notes: Do Mem oria 05-22 not give l 19:45: IV push. Frandy 00 (Same as: Phenergan) Acetaminoph No Notes: Jaylan elvin en 21.7 05-22 Same as l MG/ML / 19:45: Anderson Frandy Hydrocodone 00 325-7.5mg Bitartrate Do not [...] l 19:41: Narcan Fentanyl No Notes: Memoria - (Same as: l 19:41: Sublimaze) Preservat bao free. Hydromorpho No 0.5 mg, Mem oria ne 05-22 Route: l 19:41: IVP, Mallard 00 Q5Min, Dosing Weight 83.1, kg, PRN Pain Score 7-10, Start date: 05/22/14 13:41:00, Duration: 4 doses or times, Stop date: Limited # of times Ondansetron No 4 mg, Memor ia 05-22 Route: l 19:41: IVP, ONCE, Frandy 00 Dosing Weight 83.1, kg, PRN Nausea & Vomiting, Start date: 05/22/14 13:41:00 Acetaminoph No 1,000 mg, M emoria en 05-22 Route: l 19:41: IVPB, Drug form: INJ, ONCE, Dosing Weight 83.1, kg, PRN Pain Score 1-3, Start date: 05/22/14 13:41:00, Duration: 1 doses or times, Stop date: Limited # of times Flumazenil No Notes: Memor ia 05-22 (Same as: l 19:41: Romazicon) Naloxone No Notes: Memoria 05-22 Same as l 19:41: Narcan Fentanyl No Notes: Memoria 05-22 (Same as: l 19:41: Sublimaze) Preservat bao free. Hydromorpho No 0.5 mg, Mem oria ne 05-22 Route: l 19:41: IVP, Frandy 00 Q5Min, Dosing Weight 83.1, kg, PRN Pain Score 7-10, Start date: 05/22/14 13:41:00, Duration: 4 doses or times, Stop date: Limited # of times Ondansetron No 4 mg, Memor ia 05-22 Route: l 19:41: IVP, ONCE, Mallard 00 Dosing Weight 83.1, kg, PRN Nausea & Vomiting, Start date: 05/22/14 13:41:00 Acetaminoph No 1,000 mg, M emoria en 05-22 Route: l 19:41: IVPB, Drug form: INJ, ONCE, Dosing Weight 83.1, kg, PRN Pain Score 1-3, Start date: 05/22/14 13:41:00, Duration: 1 doses or times, Stop date: Limited # of times Unknown 2013-05 Yes PO, Daily, Jaylan elvin Home 2-30 Refill(s) l Medication 16:24: 0 Vitamin D 2013-05 Yes PO, Daily, Me moria 2-30 0 l 16:24: Refill(s) cetirizine 2013-05 Yes PO, Daily, M emoria hydrochlori 2-30 0 l de 10 MG 16:24: Refill(s) Herm kash Oral Tablet 00 [Zyrtec] Unknown 2013-05 Yes PO, Daily, Jaylan elvin Home 2-30 Refill(s) l Medication 16:24: 0 Vitamin D 2013-05 Yes PO, Daily, Me moria 2-30 0 l 16:24: Refill(s) cetirizine 2013-05 Yes PO, Daily, M emoria hydrochlori 2-30 0 l de 10 MG 16:24: Refill(s) Herm kash Oral Tablet 00 [Zyrtec] tramadol 2013-05 No PO, 0 Memoria hydrochlori 2-30 Refill(s) l de 50 MG 16:22: Frandy Oral Tablet 00 levothyroxi 2013-05 Yes PO, Daily, Memoria ne 88 mcg 2-30 0 l (0.088 mg) 16:22: Refill(s) He rmann oral tablet 00 tramadol 2013-05 No PO, 0 Memoria hydrochlori 2-30 Refill(s) l de 50 MG 16:22: Mallard Oral Tablet 00 levothyroxi 2013-05 Yes PO, Daily, Memoria ne 88 mcg 2-30 0 l (0.088 mg) 16:22: Refill(s) He rmann oral tablet 00 Praluent Praluent Yes Gus Inject [address] [facility] Glucometer Glucometer Yes Gus one [facility] Vitamin D Vitamin D Yes Gus not [facility] defined [facility] Jardiance Jardiance Yes Gus [address] [facility] Claritin Claritin Yes Gus [address] [facility] blood blood Yes Gus one [facility] glucose glucose [facility] test strip test strip [facility] Albuterol Albuterol Yes Gus [address] [facility] Sulfate Sulfate [place] needed [facility] True Metrix True Metrix Yes Gus USE [address] [facility] Blood Blood [place] STRIP TO [facility] Glucose Glucose CHECK [facility] Test Test GLUCOSE l TW[facility] Lancets Lancets Yes Gus one [facility] Super Thin Super Thin [place] Aspir-81 Aspir-81 Yes Gus [address] [facility] Folic Acid Folic Acid Yes Gus TAKE [address] [facility] [place] TABLET BY [facility] MOUTH ONCE [facility] Levothyroxi Levothyroxi Yes Gus [address] [facility] [address] ne Sodium ne Sodium [place] on an Alana es - empty [facility] stomach [facility] Citalopram Citalopram Yes Gus take one [facility] Hydrobromid Hydrobromid [facility] tablet by [facility] e e mouth once [facility] daily [facility] Alcohol Alcohol Yes Gus as [facility] Prep Pads Prep Pads [facility] directed [facility] Vital Signs Vital Name Observation Time Observation Value Comments Source Respitory Rate 2020-07-21 14:55:00 Memori al Frandy Systolic (mm Hg) 2020-07-21 14:55:00 [facility]lan rial Frandy Diastolic (mm Hg) 2020-07-21 14:55:00 Mem o[facility] Respitory Rate 2020-07-21 14:40:00 [facility] [place] Systolic (mm Hg) 2020-07-21 14:40:00 [facility]lan rial [place] Diastolic (mm Hg) 2020-07-21 14:40:00 [facility] [place] Respitory Rate 2020-07-21 14:25:00 [facility] Systolic (mm Hg) 2020-07-21 14:25:00 [place]lan rial [facility] Diastolic (mm Hg) 2020-07-21 14:25:00 [facility] Height 2020-07-14 18:36:00 157.48 cm [facility] Weight 2020-07-14 18:36:00 [facility] BMI Calculated 2020-07-14 18:36:00 [facility] Respitory Rate 2020-04-28 19:30:00 [facility] Systolic (mm Hg) 2020-04-28 19:30:00 [place]lan rial [place] Diastolic (mm Hg) 2020-04-28 19:30:00 [facility] Temperature Oral (F) 2020-04-28 19:30:00 97.7 F [facility] Heart Rate 2020-04-28 19:30:00 [facility] Respitory Rate 2020-04-28 19:00:00 [facility] Systolic (mm Hg) 2020-04-28 19:00:00 [place] [facility] Diastolic (mm Hg) 2020-04-28 19:00:00 [facility] Respitory Rate 2020-04-28 18:45:00 [facility] Systolic (mm Hg) 2020-04-28 18:45:00 [facility] [place] Diastolic (mm Hg) 2020-04-28 18:45:00 [facility] Weight 2020-04-28 13:52:00 [facility] BMI Calculated 2020-04-28 13:52:00 [facility] Height 2020-04-24 15:50:00 153.92 cm [facility] Weight 2020-04-24 15:50:00 [facility] BMI Calculated 2020-04-24 15:50:00 [facility] Temperature Oral (F) 2020-04-24 15:50:00 98.0 F [facility] Heart Rate 2020-04-24 15:50:00 [facility] Respitory Rate 2020-04-24 15:50:00 [facility] Systolic (mm Hg) 2020-04-24 15:50:00 [place]lan rial [facility] Diastolic (mm Hg) 2020-04-24 15:50:00 [facility] Height 2020-04-23 16:08:00 157.48 cm [facility] Weight 2020-04-23 16:08:00 [facility] [facility] BMI Calculated 2020-04-23 16:08:00 [facility] Temperature Oral (F) 2019-10-31 21:00:00 97.9 F [facility] Heart Rate 2019-10-31 21:00:00 [facility] Systolic (mm Hg) 2019-10-31 21:00:00 Jaylan rial [facility] Diastolic (mm Hg) 2019-10-31 21:00:00 Mem orial [place] Heart Rate 2019-10-31 18:29:00 [facility] Systolic (mm Hg) 2019-10-31 18:29:00 Jaylan rial [place] Diastolic (mm Hg) 2019-10-31 18:29:00 Mem orial [facility] Temperature Oral (F) 2019-10-31 17:00:00 98.1 F [facility] Heart Rate 2019-10-31 17:00:00 [facility] Systolic (mm Hg) 2019-10-31 17:00:00 Jaylan rial Fr[facility] Diastolic (mm Hg) 2019-10-31 17:00:00 Mem orial [place] Temperature Oral (F) 2019-10-31 12:00:00 98.3 F [facility] Respitory Rate 2019-10-31 09:15:00 [facility] Respitory Rate 2019-10-31 05:05:00 [facility] Height 2019-10-31 02:00:00 154.94 cm [facility] Weight 2019-10-31 02:00:00 [facility] BMI Calculated 2019-10-31 02:00:00 [facility] Respitory Rate 2019-10-31 01:45:00 [facility] [place] Height 2019-10-25 17:51:00 154.94 cm [facility] Weight 2019-10-25 17:51:00 [facility] BMI Calculated 2019-10-25 17:51:00 [facility] Height 2019-10-25 17:22:00 154.94 cm [facility] Weight 2019-10-25 17:22:00 [facility] BMI Calculated 2019-10-25 17:22:00 [facility] Systolic (mm Hg) 2017-06-09 18:31:00 Jaylan rial [place] Diastolic (mm Hg) 2017-06-09 18:31:00 Mem orial [place] Respitory Rate 2017-06-09 18:31:00 [facility] Heart Rate 2017-06-09 18:31:00 [facility] Temperature Oral (F) 2017-06-09 18:31:00 97.2 F [facility] Temperature Oral (F) 2017-06-09 14:43:00 97.7 F [facility] Heart Rate 2017-06-09 14:43:00 [facility] Systolic (mm Hg) 2017-06-09 14:43:00 Jaylan rial [place] Diastolic (mm Hg) 2017-06-09 14:43:00 Mem orial [facility] Respitory Rate 2017-06-09 14:43:00 [facility] Heart Rate 2017-06-09 10:00:00 [facility] Systolic (mm Hg) 2017-06-09 10:00:00 Jaylan rial [place] Diastolic (mm Hg) 2017-06-09 10:00:00 Mem orial [facility] Temperature Oral (F) 2017-06-09 10:00:00 97.9 F [facility] Respitory Rate 2017-06-09 10:00:00 [facility] Weight 2017-06-08 20:58:00 [facility] BMI Calculated 2017-06-08 20:58:00 [facility] Height 2017-06-08 20:58:00 154.94 cm [facility] Weight 2017-06-03 16:22:00 [facility] BMI Calculated 2017-06-03 16:22:00 [facility] Height 2017-06-03 16:22:00 154.94 cm [facility] Height 2017-06-01 19:29:00 154.94 cm [facility] Weight 2017-06-01 19:29:00 [facility] BMI Calculated 2017-06-01 19:29:00 [facility] Systolic (mm Hg) 2014-05-23 13:45:00 Jaylan rial [facility] Respitory Rate 2014-05-23 13:45:00 [facility] Diastolic (mm Hg) 2014-05-23 13:45:00 Mem orial [facility] Temperature Oral (F) 2014-05-23 13:45:00 97.5 F [facility] Heart Rate 2014-05-23 13:45:00 [facility] Systolic (mm Hg) 2014-05-23 10:00:00 Jaylan rial [place] Diastolic (mm Hg) 2014-05-23 10:00:00 [facility] Heart Rate 2014-05-23 10:00:00 [facility] Respitory Rate 2014-05-23 10:00:00 [facility] Temperature Oral (F) 2014-05-23 10:00:00 98.0 F [facility] Temperature Oral (F) 2014-05-23 06:00:00 98.0 F [facility] Systolic (mm Hg) 2014-05-23 06:00:00 Jaylan rial [place] Respitory Rate 2014-05-23 06:00:00 [facility] Heart Rate 2014-05-23 06:00:00 [facility] Diastolic (mm Hg) 2014-05-23 06:00:00 Mem o[facility] BMI Calculated 2014-05-14 16:50:00 [facility] Weight 2014-05-14 16:50:00 [facility] Height 2014-05-14 16:50:00 157.48 cm [facility] Weight 2014-05-14 16:30:00 [facility] Height 2014-05-14 16:30:00 157.48 cm [facility] BMI Calculated 2014-05-14 16:30:00 [facility] Diastolic (mm Hg) 2014-04-22 18:30:00 [facility] [place] Respitory Rate 2014-04-22 18:30:00 [facility] Systolic (mm Hg) 2014-04-22 18:30:00 Jaylan rial Fr[facility] Systolic (mm Hg) 2014-04-22 18:00:00 Jaylan rial [place] Respitory Rate 2014-04-22 18:00:00 [facility] Diastolic (mm Hg) 2014-04-22 18:00:00 [facility] o[facility] Systolic (mm Hg) 2014-04-22 17:45:00 Jaylan rial [place] Diastolic (mm Hg) 2014-04-22 17:45:00 Mem orial [facility] Respitory Rate 2014-04-22 17:45:00 [facility] Heart Rate 2014-04-22 16:23:00 [facility] Procedures Procedure Date / Time Performing Clinician Source Performed Procedure<sup>7</sup> [facility] ermann Carpal tunnel [facility] release<sup>1</sup> Cataract [facility] surgery<sup>2</sup> Cholecystectomy [facility] Elbow joint [facility] operations<sup>3</sup> Foot [facility] fasciectomy<sup>4</sup> Foot joint [facility] operations<sup>5</sup> Hysterectomy [facility] Knee joint [facility] operation<sup>6</sup> Christine fundoplication [facility] ermann Plantar fasciotomy [facility] Herm kash [facility] operations<sup>7</sup> Cervical spinal fusion by Negro Caro anterior technique Plan of Care Planned Activity Planned Date Details Comments Source Future Scheduled 2020-01-15 INFLUENZA VACCINE (#1) [facility] 00:[facility]:00 [code = INFLUENZA Medical Ce nter VACCINE (#1)] Future Scheduled 2019-12-15 INFLUENZA VACCINE [place] [facility] 00:00:00 [code = INFLUENZA VACCINE] Future [...] Future Scheduled 2006 COLONOSCOPY SCRE[place]ING [place] [facility] 00:00:00 [code = COLONOSCOPY SCREENING] Future Scheduled 2006 SHINGLES VACCINES (#1) [place] [facility] 00:00:00 [code = SHINGLES VACCINES (#1)] Future Scheduled [address] [facility]00 (procedure) [code = Medical Center 18198400] Future Scheduled 1977 Screening for [facility] 00:00:00 malignant neoplasm of cervix (procedure) [code = 974473621] Future Scheduled [address] [facility] 00:[facility]:00 malignant neoplasm of [facility]ica l Center cervix (procedure) [code = 128764326] Future Scheduled 1974 Hepatitis C screening [place] [facility] 00:00:00 (procedure) [code = 184425284] Future Scheduled 1972 COVID-19 VACCINE (1) [facility] 00:00:00 [code = COVID-19 VACCINE (1)] Future Scheduled 1966 DIABETES: RETINAL EYE [place] [facility] 00:00:00 EXAM [code = DIABETES: RETINAL EYE EXAM] Future Scheduled 1966 DIABETIC FOOT EXAM [place] [facility] 00:00:00 [code = DIABETIC FOOT EXAM] Future Scheduled 1966 URINE MICROALBUMIN [place] [facility] 00:00:00 [code = URINE MICROALBUMIN] Future Scheduled [address] [facility] - Test 00:00:00 0-64 YRS (1 of 3 - Medical C enter PCV13) [code = PNEUMOCOCCAL VACCINE 0-64 YRS (1 of 3 - PCV13)] Future Scheduled [address] [facility] Test 00[facility]00:00 malignant neoplasm of Medica l Center breast (procedure) [code = 483636654] Future Scheduled [address] [facility] 00:00:00 [facility] (procedure) [code = 104062644] Encounters Start End Encounter Admission Attending Care Care Encounter Source Date/Time Date/Time Type Type Clinicians Facility Department ID 2019-10-24 [id number] 2019-09-03 Outpatient [facility] [id number] [facility] 10:11:05 2020-07-28 2020-07-28 Refill Gutierrez, [facility] 1.2.840.114 [id number] 00:00:00 00:00:00 Rika [place] [id number] [place] [id number] Professio [phone] [address] 2020-07-28 2020-07-28 Refill Gutierrez, [facility] [id number] 00:00:00 00:00:00 Rika [place] [id number] [place] [id number] Professio [phone] [facility] 220 [facility] 2020-07-22 2020-07-22 [facility] 1.2.840.114 [id number] 00:00:00 00:00:00 Outreach [facility] [id number] Located within [facility] [id number] NATALIE [phone] [id number] 2020-07-21 2020-07-21 Outpatient Jose Enrique, MHSE MHSE [id number] 11:00:00 11:00:00 Chon Viramontes 10 2020-07-21 2020-07-21 Outpatient Jose Enrique, MHSE MHSE [id number] 11:00:00 11:00:00 Chon Viramontes 10 2020-07-21 2020-07-21 Outpatient Jose Enrique, MHSE MHSE [id number] 05:27:00 09:00:00 Chon Viramontes 10 2020-07-21 2020-07-21 Outpatient Jose Enrique, MHSE MHSE [id number] 05:27:00 09:00:00 Chon Viramontes 10 2020-07-21 2020-07-21 Outpatient MHSE MHSE [id number] MH 05:27:00 05:27:00 [facility] 2020-06-27 2020-06-27 [facility] 1.2.840.114 [id number] 14:00:40 14:20:40 ne Visit Leonid Tim [id number] [place] [id number] Professio [phone] [facility] [address] [place] [address] 2020-06-11 2020-06-11 Outpatient [facility] [id number] [facility] 2020-05-27 2020-05-27 Outpatient [facility]ML[facility] [id number] [facility] 2020-05-21 2020-05-21 Refill Matt [facility] 1.2.840.114 [id number] 00:00:00 00:00:00 Rika Tim [id number] [place] [id number] Professio [phone] [facility] 220 [facility] 2020-04-28 2020-04-28 Outpatient Jose Enrique [facility] [id number] 07:36:00 16:19:00 Chon Viramontes 2020-04-28 2020-04-28 Outpatient Jose Enrique, [facility] [id number] 07:36:00 16:19:00 Chon Viramontes 2020-04-28 2020-04-28 Outpatient Jose Enrique, [facility] [id number] 09:30:00 09:30:00 Chon Viramontes 09 2020-04-28 2020-04-28 Outpatient Jose Enrique, [facility] [id number] 09:30:00 09:30:00 Chon Viramontes 09 2020-04-28 2020-04-28 Outpatient [facility] [id number] 07:36:00 07:36:00 [facility] 2020-04-21 2020-04-21 Office Deng [facility] 1.2.840.114 [id number] 14:20:10 15:10:19 Visit Addy Tim [id number] [place] [id number] Professio [phone] [facility] 059 [facility] 2020-04-21 2020-04-21 Orders Doctor ARMANDO 1.2.840.114 [id number] 00:00:00 00:00:00 Only Unassigned, REJI [id number] [place] [facility] [phone] [id number] 2020-04-15 2020-04-15 [facility] [id number] 2020-02-20 2020-02-20 [facility] [id number] 2020-02-11 2020-[facility] [id number] 2020-01-29 2020-01-29 [facility] [id number] 15:03:00 15:03:00 [employer] [facility] Medicine Outpati ent Clinics 2020-01-15 2020-01-15 [facility] [id number] 09:30:00 09:30:00 t [employer] [facility] Medicine Outpati ent Clinics 2020-01-07 2020-01-07 Outpatient Mercedez, [facility] [id number] 09:26:00 23:59:00 Kwadwo Nicolle [facility] 2020-01-07 2020-01-07 Outpatient Mercedez, [facility] [id number] 09:26:00 23:59:00 Kwadwo Nicolle [facility] 2020-01-01 2020-01-01 [facility] [id number] 12:07:00 12:07:00 t EagerP[employer] [facility] Medicine Outpati ent Clinics 2019-12-07 2019-12-07 [facility] [id number] 14:05:00 14:05:00 t [employer] [facility] Outpati ent Clinics 2019-11-27 2019-11-27 [facility] [id number] 14:03:00 14:03:00 t [employer] [facility] Medicine Outpati ent Clinics 2019-11-27 2019-11-27 [facility] [id number] 13:59:00 13:59:00 t [employer] [facility] Outpat[facility] ent Clinics 2019-11-24 2019-11-24 [facility] [id number] 10:12:00 10:12:00 t [employer] [facility] Outpat[facility] ent Clinics 2019-11-20 2019-11-20 [facility] [id number] 17:23:00 17:23:00 t [employer] [facility] Medicine Outpati ent Clinics 2019-11-20 2019-11-20 [facility] [id number] 14:15:00 14:15:[address] [facility] Medicine Medicine Outpati ent Clinics 2019-10-30 2019-10-31 Outpatient Jose Enrique MHSE MHSE [id number] 05:24:00 17:23:00 Chonjanneth Viramontes 07 2019-10-30 2019-10-31 Outpatient Jose Enrique, TICOSE MHSE [id number] 05:24:00 17:23:00 Chon Viramontes 07 2019-10-29 2019-10-29 Outpatient Thosani, [facility] [id number] 09:22:00 23:59:00 Kwadwo 05 [facility] 2019-10-29 2019-10-29 Outpatient Thosani, [facility] [id number] 09:22:00 23:59:00 Kwadwo Siria [facility] 2019 2019 Outpatient Thosani, [facility] [id number] 06:47:00 14:00:00 Kwadwo Priscilla [facility] 2019 2019 Outpatient Thosani, [facility] [id number] 06:47:00 14:00:00 Kwadwo Priscilla [facility] 2019 2019 Outpatient [facility] [id number] [facility] 06:47:00 06:47:00 2019-10-05 2019-10-05 [facility] [id number] 09:00:00 09:00:00 t [employer] [facility] Outpati ent Clinics 2019-10-05 2019-10-05 [facility] [id number] 09:00:00 09:00:00 t [employer] [facility] Medicine Outpati ent Clinics 2019-08-23 2019-08-23 [facility] [id number] 11:24:00 11:24:[address] [facility] Medicine Outpati ent Clinics 2019-08-02 2019-08-02 Outpatient Fadia, [id number] 11:29:11 23:59:59 Charles Zamudio 2019-08-02 2019-08-02 Outpatient Fadia [id number] 11:29:11 23:59:59 Charles 8 2019-08-01 2019-08-01 [facility] [id number] 09:45:00 09:45:00 t [employer] [facility] Medicine Outpati ent Clinics 2019-06-28 2019-06-28 Outpatient Jose Enrique MHOIP MHOIP [id number] 06:22:00 23:59:00 Chon Viramontes 00 2019-06-28 2019-06-28 Outpatient Jose Enrique MHOIP MHOIP [id number] 06:22:00 23:59:00 Chon Viramontes 00 2019-05-07 2019-05-07 [facility] [id number] 09:35:00 09:35:00 t [employer] [facility] Medicine Outpati ent Clinics 2019-03-30 2019-03-30 [facility] [id number] 09:45:00 09:45:00 t EagerPanda [facility] Outpati ent Clinics 2019-02-13 2019-02-13 Outpatient Laxmi MHMISCHER MHMISCHER [id number] 13:30:00 13:30:00 Horace 00 [facility] 2019-02-13 2019-02-13 Outpatient TICO HairMISCHER MHMISCHER [id number] 13:30:00 13:30:00 Horace 00 Partha 2019-01-18 2019-01-18 [facility] [id number] 08:39:00 08:39:00 t EagerPanda [facility] Medicine Outpati ent Clinics 2019-01-17 2019-01-17 [facility] [id number] 09:33:00 09:33:00 t EagerP[employer] [facility] Medicine Outpati ent Clinics 2018-12-29 2018-12-29 [facility] [id number] 13:30:00 13:30:00 t EagerPanda [facility] Medicine Outpati ent Clinics 2018-12-29 2018-12-29 [facility] [id number] 09:30:00 09:30:00 t Alhambra Alhambra coComment s - Drive [facility] Outpati ent Clinics 2018-12-19 2018-12-19 [facility] [id number] 08:15:00 08:15:00 t Alhambra Alhambra coComment s - Drive [facility] Outpati ent Clinics 2018-11-28 2018-11-28 [facility] [id number] 09:15:00 09:15:00 t Alhambra Alhambra coComment s - Drive [facility] Outpati ent Clinics 2018-08-18 2018-08-18 [facility] [id number] 09:45:00 09:45:00 t Alhambra Alhambra coComment s Dynadmic [facility] Outpati ent Clinics 2018-07-31 2018-07-31 [facility] [id number] 11:22:00 11:22:00 t [facility] ent Clinics 2018-07-26 2018-07-26 [facility] [id number] 08:15:00 08:15:00 t Alhambra Tile s [employer] [facility] 2018-07-19 2018-07-19 [facility] [id number] 09:52:00 09:52:00 t Alhambra Tile s [employer] [facility] Outpati ent Clinics 2018-07-17 2018-07-17 [facility] [id number] 09:30:00 09:30:00 t Alhambra Tile s [employer] [facility] Outpati ent Clinics 2018-07-14 2018-07-14 [facility] [id number] 10:49:00 10:49:00 t [facility] ent Clinics 2018-07-11 2018-07-11 [facility] [id number] 14:30:00 14:30:00 t [facility] ent Clinics 2018-07-05 2018-07-05 [facility] [id number] 20:40:00 20:40:00 t [facility] ent Clinics 2018-07-05 2018-07-05 [facility] [id number] 10:02:00 10:02:00 t [facility] ent Clinics 2018-07-04 2018-07-04 [facility] [id number] 08:00:00 08:00:00 t [facility] ent Clinics 2018-06-26 2018-06-26 [facility] [id number] 11:30:00 11:30:[address] Luke s - Drive [facility] 2018-06-22 2018-06-22 [facility] [id number] 11:03:00 11:03:[address] Luke s - Drive [facility] 2018-06-13 2018-06-13 [facility] [id number] 13:15:00 13:15:[address] Luke s - Drive [facility] Medicine Medicine Outpati ent Clinics 2018-02-09 2018-02-09 [facility] [id number] 10:03:00 10:03:[address] Luke s - Drive [facility] Medicine Medicine Outpati ent Clinics 2018-02-07 2018-02-07 [facility] [id number] 09:00:00 09:00:[address] Luke s - Drive [facility] Medicine Outpati ent Clinics 2017-12-23 2017-12-23 [facility] [id number] 10:00:00 10:00:[address] Luke s - Drive [facility] 2017-09-20 2017-09-20 [facility] [id number] 09:00:00 09:00:00 t [employer] [facility] 2017-06-08 2017-06-09 Outpatient Gonzalo, [facility] [id number] 05:41:00 13:59:00 Sumiko 02 [facility] 2017-06-08 2017-06-09 Outpatient Gonzalo, [facility] [id number] 05:41:00 13:59:00 Sumiko 02 Lesa 2014-05-22 2014-05-23 Outpatient Bindal, [facility] [id number] 05:40:00 14:08:00 Ananda K 2014-05-22 2014-05-23 Outpatient Bindal, [facility] [id number] 05:40:00 14:08:00 Ananda K 2014-04-22 2014-04-22 Outpatient Bindal, [facility] [id number] 09:50:00 13:05:00 Ananda K 00 2014-04-22 2014-04-22 Outpatient Bindal, [facility] [id number] 09:50:00 13:05:00 Ananda K 00 Results Test Description Test Time Test Comments Results Result Sour e Comments IMMUNOLOGY 2020-07-18 Not Detected [facility] 16:15:00 *NA*(07/18/20 [facility] 10:15 AM) IMMUNOLOGY 2020-07-18 Not Detected [facility] 16:15:00 *NA*(07/18/20 [place] 10:15 AM) CHEM PANEL 2020-07-14 102 [facility] 18:56:00 [place] CHEM PANEL 2020-07-14 10 [facility] 18:56:00 Frandy CHEM PANEL 2020-07-14 0.80 [facility] 18:56:00 [place] CHEM PANEL 2020-07-14 141 [facility] 18:56:00 [place] CHEM PANEL 2020-07-14 4.8 [facility] 18:56:00 Fr[facility] CHEM PANEL 2020-07-14 107 [facility] 18:56:00 [place] CHEM PANEL 2020-07-14 28 [facility] 18:56:00 [place] CHEM PANEL 2020-07-14 8.9 [facility] 18:56:00 [place] CHEM PANEL 2020-07-14 10.8 [facility] 18:56:00 Fr[facility] CHEM PANEL 2020-07-14 79 [facility] 18:56:00 [place] HEMATOLOGY 2020-07-14 7.1 [facility] 18:56:00 [facility] HEMATOLOGY 2020-07-14 4.84 [facility] 18:56:00 [facility] HEMATOLOGY 2020-07-14 14.5 [facility] 18:56:00 [facility] HEMATOLOGY 2020-07-14 44.2 [facility] 18:56:00 [facility] HEMATOLOGY 2020-07-14 91.3 [facility] 18:56:00 [facility] HEMATOLOGY 2020-07-14 18:56:00 Test Item Value Reference Range Interpretation Comme nts MCH (test code = MCH) 30.0 pg 27.0-31.0 [facility] KluuvfdETDNFZKJHM3452-54-94 18:56:0032.8[facility] 2020-07-14 18:56:0013.2[facility] CknsdulKUGMNAPQDZ1661-29-10 18:56:58924Gjyrhjwe WotjdhfMWHFBANDWP1508-73-98 18:56:007.2[facility] CmqrlngAWABWGFRQB8685-81-03 18:56:00 Test Item Value Reference Range Interpretation Comments PT (test code = PT) 12.8 s 12.0-14.7 [facility] KflrqzlYYCXRQOGKR5176-37-35 18:56:00 Test Item Value Reference Range Interpretation Comments INR (test code = INR) 0.97 1 0.85-1.17 [facility] ZmyxaipCTZBGUVSRR5411-42-63 18:56:00 Test Item Value Reference Range Interpretation Comments PTT (test code = PTT) 29.8 s 22.9-35.8 [facility] BwfzuuzFVJJAEQIKA9221-23-51 18:56:0048.7[facility]ann[facility]MATOLOGY 2020-07-14 18:56:0042.8[facility] ZytlgbvAANEYJHDLE3888-36-37 18:56:005.8[facility] DijgxgbUMVVJSAPHK8124-29-42 18:56:002.1[facility] NaerqvyYHEVYOMHCW1094-29-07 18:56:000.6[facility] YmagkwvRAUZTOKMQU1609-80-29 18:56:003.5[facility] JEACZIOSLK2906-43-35 18:56:003.0[facility] MgsuqfvPHHZIOKCZA6659-75-40 18:56:000.4 [facility] GjyavipPDTJAROTJK4935-97-93 18:56:000.1[facility] HermannCHEM PANEL 2020-07-14 18:56:55111Ivrzefan HermannCHEM GRUXK1983-89-76 18:56:0010[facility] HermannCHEM NNROW3918-43-96 18:56:000.80[facility] HermannCHEM ERLPY0012-30-87 18:56:36593Doysnrkq HermannCHEM DQDBG4560-27-42 18:56:004.8[facility] HermannCHEM GZVSU8290-77-20 18:56:67820Gtqkbfpv HermannCHEM MRKBK7914-33-94 18:56:0028 [facility] HermannCHEM QWDVI2789-59-62 18:56:008.9[facility] HermannCHEM PANEL 2020-07-14 18:56:0010.8[facility] HermannCHEM VGPOP2745-04-56 18:56:0079[facility] SmehzsaLDBXPAPIHU0692-30-10 18:56:007.1[facility] DvrlwedPXUXLVWATM8124-89-19 18:56:004.84[facility] IeqkaknTCUYXDHGKU4148-12-72 18:56:0014.5[facility] FJOQSUHXXB5312-11-83 18:56:0044.2[facility] KanikkfWFKDBRTUWY9179-38-25 18:56:00 91.3[facility]orial GjejxkzGHMHGPRSEK8526-06-93 18:56:00 Test Item Value Reference Range Interpretation Comments MCH (test code = MCH) 30.0 pg 27.0-31.0 [facility] MoupnujTLQVNLDUFH2024-59-06 18:56:0032.8[facility]annHEMATOLOGY 2020-07-14 18:56:0013.2[facility] IdiobusOQPDFSUFYC2118-71-05 18:56:19531Kuwrmqgy WuiwwxdDARNPFRVXH6783-90-08 18:56:007.2[facility] ZmvyafkSLCJBQPHGI9962-56-89 18:56:00 Test Item Value Reference Range Interpretation Comments PT (test code = PT) 12.8 s 12.0-14.7 [facility] FqrswpvXQERHKAJNM4287-08-84 18:56:00 Test Item Value Reference Range Interpretation Comments INR (test code = INR) 0.97 1 0.85-1.17 [facility] OtpnumaAXOAMSHHDL7072-93-76 18:56:00 Test Item Value Reference Range Interpretation Comments PTT (test code = PTT) 29.8 s 22.9-35.8 [facility] ExouaruZZFTVKZCRE8064-73-29 18:56:0048.7[facility] HermannHEMATOLOGY 2020-07-14 18:56:0042.8[facility] UtxfkjoUORCLIHMPJ5064-78-19 18:56:005.8[facility] AteanuyTTSOVDKBGC0913-90-22 18:56:002.1[facility] ZvkvjyqDHPZULKMEJ1273-13-34 18:56:000.6[facility] OffasbaEDWCBJXJTL5393-48-48 18:56:003.5[facility] ZBSANBRVFY7553-13-62 18:56:003.0[facility] YtmofyqEWOYUVOMCS9763-55-11 18:56:000.4 [facility] HqqriutDKPZZQFQNC3069-92-53 18:56:000.1[facility] HermannCHEM PANEL 2020-04-28 18:24:15868Buoskwgn HermannCHEM ELHHA7236-66-29 18:24:0010[facility]annCHEM DNGIB3337-04-34 18:24:000.81[facility]annCHEM ABUMV9926-68-46 18:24:20710Ewjhfebl HermannCHEM CXRCD7836-77-99 18:24:004.5[facility]annCHEM KKWXS6675-72-55 18:24:97424Xlquprnf HermannCHEM TYCGF5964-56-44 18:24:0028 [facility]annCHEM BRSSJ2059-39-55 18:24:008.8[facility]annCHEM PANEL 2020-04-28 18:24:0012.5[facility]annCHEM FACUU3268-94-96 18:24:0078[facility] ErtkgmePQHDWQIGHA9462-49-74 18:24:0030.3[facility] HstjainXQOLIIAJFZ1774-64-37 18:24:0058.8[facility] RbfzwwtZVXHKRHUCM8284-32-44 18:24:006.7[facility] VJLTQHENMS2401-37-82 18:24:003.3[facility] MgqpelvECQEUNYWTN2769-68-67 18:24:000.9 [facility] KtirsrtNTBWIKFZGM5148-79-72 18:24:003.0[facility] HermannHEMATOLOGY 2020-04-28 18:24:005.7[facility] KgfvjasJMBUNXGELT8048-48-55 18:24:000.7[facility] CpgzytgNYGNEZPETI4185-54-11 18:24:000.3[facility] ZgutlshDSPCZFCNGG1431-67-45 18:24:000.1[facility] EevabdxMKGJXFTOLA6212-34-69 18:24:009.7[facility] KFKYBPQMSB2352-77-42 18:24:004.49[facility] JftgvmdJWZWDTDPFN1046-71-40 18:24:00 13.7[facility] MoeauhrJHEYQGSOOL3599-55-16 18:24:0041.5[facility]annHEMATOLOGY 2020-04-28 18:24:0092.3[facility] RljojomMPANUDAFXB6628-72-18 18:24:00 Test Item Value Reference Range Interpretation Comments MCH (test code = MCH) 30.4 pg 27.0-31.0 [facility] HbzbjaeGAAQEDFOUQ8169-88-36 18:24:0033.0[facility] HermannHEMATOLOGY 2020-04-28 18:24:0014.1[facility] GdpepgeSGCKCSDFNV7849-93-71 18:24:35715Urscuzxq TcmwifbUPCOSIMVFD4864-21-53 18:24:007.0[facility] HermannCHEM EFHRD6840-42-70 18:24:37287Tgbirwmt HermannCHEM JWLSF6676-69-71 18:24:0010[facility]annCHEM TUJVX8897-27-85 18:24:000.81[facility]annCHEM LALJA6305-51-26 18:24:59759 [facility]annCHEM MEZPI9021-79-41 18:24:004.5[facility]annCHEM PANEL 2020-04-28 18:24:26712Hfrkbbgl HermannCHEM VQWZE0105-83-39 18:24:0028[facility]annCHEM BWVGV9951-35-57 18:24:008.8[facility]annCHEM DPZCL9548-57-21 18:24:0012.5[facility]annCHEM GDOHT0765-81-85 18:24:0078[facility] FZDRXMGSOD4741-46-67 18:24:0030.3[facility] VkkhbbaVDRUYWOJWG5158-46-05 18:24:00 58.8[facility] NifkzclXNLWIQKSYL4829-09-58 18:24:006.7[facility] HermannHEMATOLOGY 2020-04-28 18:24:003.3[facility] HknxenjBVNWWKPEBW8741-68-50 18:24:000.9[facility] BqinkgaHEFILMKASJ0575-61-49 18:24:003.0[facility] TdvtqzzVYTZRNBMYF8647-54-17 18:24:005.7[facility] DijttbiBRSRZCMDRP6113-09-14 18:24:000.7[facility] QNNFPTTXFI3042-12-98 18:24:000.3[facility] FfoekumIOYANDBPDL5492-81-73 18:24:000.1 [facility] ZnhcdniHLZPYAEVGC3321-18-93 18:24:009.7[facility] HermannHEMATOLOGY 2020-04-28 18:24:004.49[facility] TggnkmlCPQDRDVDCP8793-61-16 18:24:0013.7[facility] LvyriilYJHAWPEHHT8612-06-94 18:24:0041.5[facility] JldjopxPHTZZKFEVA5703-57-69 18:24:0092.3[facility] UojfpaqPIECGTBOYH4324-66-04 18:24:00 Test Item Value Reference Range Interpretation Comments MCH (test code = MCH) 30.4 pg 27.0-31.0 [facility] LcnsqakBNYSRIQRDC4411-39-63 18:24:0033.0[facility] HermannHEMATOLOGY 2020-04-28 18:24:0014.1[facility] LvrkxxkZOROGAABJZ2071-02-38 18:24:88119Stbyxiji NlqdbngNJHPHVTUSU3928-99-01 18:24:007.0[facility] WosilbhUBIHIVMXYZ3351-80-85 17:19:00Not Detected (04/24/20 11:19 AM)[facility] LrgmoggEJQJPHEGBV6090-93-45 17:19:00Not Detected (04/24/20 11:19 AM)[facility]annBLOOD BANK RESULTS 2020-04-24 16:08:00Negative (04/24/20 10:08 AM)[facility]annCHEM PANEL 2020-04-24 16:08:94941Okbyyvct HermannCHEM OJOZG9511-18-06 16:08:0011[facility]annCHEM FNLEX7381-81-84 16:08:000.80[facility]annCHEM PDYXC9377-72-34 16:08:90391Lsskdvqs HermannCHEM FXIHN8437-27-29 16:08:004.2[facility]annCHEM TKTVY6866-26-58 16:08:07175Cmzuwtog HermannCHEM WBXEK9721-78-53 16:08:0031 [facility]annCHEM UYVLR7779-57-43 16:08:008.8[facility]annCHEM PANEL 2020-04-24 16:08:0012.2[facility] HermannCHEM JEJRA0049-10-15 16:08:0079[facility]annCHEM CJSFY0746-97-05 16:08:0029[facility]annCHEM PVJVR4080-33-64 16:08:003.5[facility] SwnvwswERNWORDTSV8314-21-37 16:08:006.6[facility] QRDEVLVVVF6258-26-57 16:08:004.60[facility] QkdvuojHLGAGVSFVY0461-98-08 16:08:00 13.9[facility] EcksrgbPUZGJETKQX3807-04-56 16:08:0042.2[facility] HermannHEMATOLOGY 2020-04-24 16:08:0091.7[facility] IopwjtjYANXLXYIJB9324-72-91 16:08:00 Test Item Value Reference Range Interpretation Comments MCH (test code = MCH) 30.2 pg 27.0-31.0 [facility] ZotzsflUKRCAIKCAV2172-99-78 16:08:0032.9[facility] HermannHEMATOLOGY 2020-04-24 16:08:0014.5[facility] HugqxuaTWZHELTTIF4932-27-50 16:08:59966Xdnvttgi XvjbmfmJWQNXTBQXY9890-85-61 16:08:007.4[facility] MgnrywaJZYOMKVCUC5568-58-21 16:08:00 Test Item Value Reference Range Interpretation Comments PROTIME (test code = PROTIME) 12.5 s 12.0-14.7 [facility] WtyxzmkKQRNWYAKYK5846-57-94 16:08:00 Test Item Value Reference Range Interpretation Comments INR (test code = INR) 0.93 1 0.85-1.17 [facility] SenlltvYWQFZFXXAS1101-69-12 16:08:00 Test Item Value Reference Range Interpretation Comments aPTT (test code = aPTT) 31.2 s 22.9-35.8 [facility] CvqvahcGHXNKGOUVY9135-26-36 16:08:0056.2[facility] HermannHEMATOLOGY 2020-04-24 16:08:0034.8[facility] FhkapowNUUROBMNFK5997-70-13 16:08:005.9[facility] BuszvnkQOCEHDLBEI5175-71-71 16:08:002.6[facility] OjxoswtXOYBCUFXHM6686-41-21 16:08:000.5[facility] DdstgeeJIOOVTMJEO6968-12-24 16:08:003.7[facility] BEPGSQTDWU3993-75-91 16:08:002.3[facility] OefakxgJFJYTAZRLK8848-27-41 16:08:000.4 [facility] WwuurfhTKPSYWXJQG7819-28-19 16:08:000.2[facility] HermannSPECIAL JBNMSUPJW4760-51-13 16:08:006.6[facility]UR[facility] AND HSDRS1021-46-69 16:08:00Yellow *NA*(04/24/20 10:08 AM)[facility] XKDGE0726-25-60 16:08:00Clear (04/24/20 10:08 AM)[facility] WMZVX8912-39-28 16:08:00<=1.005 *NA*(04/24/20 10:08 AM)[facility] STOOL 2020-04-24 16:08:00 Test Item Value Reference Range Interpretation Comments UA pH (test code = UA pH) 6.0 1 5.0-8.0 [facility] MVOCM9106-53-46 16:08:00Negative (04/24/20 10:08 AM) [facility] DWPJT5910-34-61 16:08:00Negative *NA*(04/24/20 10:08 AM)[facility] KFEGF9413-18-53 16:08:00Negative *NA*(04/24/20 10:08 AM)[facility] FFDJV5763-41-98 16:08:00Negative (04/24/20 10:08 AM)[facility] PONWN9222-18-71 16:08:000.2[facility] URINE AND MYRGW0793-25-64 16:08:00Negative (04/24/20 10:08 AM)[facility]INE AND FOCHU7182-18-82 16:08:00Negative (04/24/20 10:08 AM)[facility] URINE AND GZXIH2146-07-65 16:08:00Performed (04/24/20 10:08 AM)[facility] WHBRHBF8892-58-37 16:08:00Negative (04/24/20 10:08 AM)[facility] HermannCHEM WZMGB2528-52-96 16:08:65549Lsjeqzce HermannCHEM FVIQR2295-36-47 16:08:0011[facility] HermannCHEM RUURX8682-65-06 16:08:000.80[facility]annCHEM DGSVK4477-58-97 16:08:54620Yrysmaot HermannCHEM WMVSC4134-92-73 16:08:004.2 [facility]annCHEM WPXPE3023-15-01 16:08:23710Eomoaffb HermannCHEM PANEL 2020-04-24 16:08:0031[facility] HermannCHEM NBWNH4858-62-57 16:08:008.8[facility] HermannCHEM YKXMA4824-77-39 16:08:0012.2[facility] HermannCHEM IEGUO1394-58-90 16:08:0079[facility]annCHEM GJHBT8017-94-66 16:08:0029[facility]annCHEM RAYJP4439-82-11 16:08:003.5[facility] GzohtkoDXUIAGWLTA0369-50-18 16:08:006.6 [facility] BpblkicXPQBOJPJVC9153-61-65 16:08:004.60[facility] HermannHEMATOLOGY 2020-04-24 16:08:0013.9[facility] LugdeniODVQBGMNKV4049-24-88 16:08:0042.2[facility] YzmmueyKTEKZHRQTT0573-82-68 16:08:0091.7[facility] GaszpviFPWDRMZNUB6443-00-29 16:08:00 Test Item Value Reference Range Interpretation Comments MCH (test code = MCH) 30.2 pg 27.0-31.0 [facility] YlfxommJGTQGYDZKQ9341-77-01 16:08:0032.9[facility] HermannHEMATOLOGY 2020-04-24 16:08:0014.5[facility] TdjomirRJECZHHUOM5297-76-18 16:08:82026Osgxrkgo AzbkfldFRNZCNTCUC3753-66-39 16:08:007.4[facility] HzejnqzOLCAEXOIHG2475-56-87 16:08:00 Test Item Value Reference Range Interpretation Comments PROTIME (test code = PROTIME) 12.5 s 12.0-14.7 [facility] YagxpgyBOFWPOLUDU5142-27-51 16:08:00 Test Item Value Reference Range Interpretation Comments INR (test code = INR) 0.93 1 0.85-1.17 [facility] QfgnahdKCUVOOTEXA2350-23-36 16:08:00 Test Item Value Reference Range Interpretation Comments aPTT (test code = aPTT) 31.2 s 22.9-35.8 [facility] GipxhjxDTVGXYJOVT7083-55-71 16:08:0056.2[facility] HermannHEMATOLOGY 2020-04-24 16:08:0034.8[facility] DfvcrsxMVCBOHZNZP9040-00-15 16:08:005.9[facility] WfydilgGDUESXBWZB4991-64-21 16:08:002.6[facility] YxtalhoTQLQSJUFHW3968-12-06 16:08:000.5[facility] QuepolqHUHPOHAPMD0752-69-74 16:08:003.7[facility] IMZGEYECAY4803-63-29 16:08:002.3[facility] BchhgeaFZRSJBGGHT5562-82-43 16:08:000.4 [facility] RnvetmiLACRSZIOLF7003-67-66 16:08:000.2[facility] HermannSPECIAL VWKVKQSYV5662-13-70 16:08:006.6[facility]UR[facility] AND CHCXS8304-51-66 16:08:00Yellow *NA*(04/24/20 10:08 AM)[facility] SILHJ0035-95-98 16:08:00Clear (04/24/20 10:08 AM)[facility] FCVSC1035-27-87 16:08:00<=1.005 *NA*(04/24/20 10:08 AM)[facility] STOOL 2020-04-24 16:08:00 Test Item Value Reference Range Interpretation Comments UA pH (test code = UA pH) 6.0 1 5.0-8.0 [facility] HQFVU3086-78-52 16:08:00Negative (04/24/20 10:08 AM) [facility] RZXOK0040-00-25 16:08:00Negative *NA*(04/24/20 10:08 AM)[facility] GPQPW7709-34-86 16:08:00Negative *NA*(04/24/20 10:08 AM)[facility] UGBTX4655-92-71 16:08:00Negative (04/24/20 10:08 AM)[facility] XPDAY0572-38-33 16:08:000.2[facility] URINE AND OROUD4945-82-20 16:08:00Negative (04/24/20 10:08 AM)[facility] URINE AND GTWVD1002-83-63 16:08:00Negative (04/24/20 10:08 AM)[facility] URINE AND RPOCZ0880-63-96 16:08:00Performed (04/24/20 10:08 AM)[facility] CHEM IJESV1971-60-58 09:07:80311Njwdxvdj HermannCHEM NRGCL7058-56-47 09:07:0011 [facility]annCHEM GUOUT3437-98-61 09:07:000.85[facility] HermannCHEM PANEL 2019-10-31 09:07:15243Bqdbxehb HermannCHEM GAAYX2493-26-87 09:07:004.5[facility] HermannCHEM UVWEM7654-12-69 09:07:41119Gditcbat HermannCHEM APVWK8978-51-44 09:07:0030[facility] HermannCHEM HPYXW4173-37-74 09:07:008.2[facility] HermannCHEM LKDVQ6370-23-92 09:07:007.5[facility] HermannCHEM AEESZ3272-54-14 09:07:0073 [facility] EnyhmcuLQVJZOPAKU2179-74-59 09:07:0011.0[facility] HermannHEMATOLOGY 2019-10-31 09:07:003.47[facility] RqirnvvCQAELTTFQD8052-94-77 09:07:0010.6[facility] PhvhfgzOEBAHFBISV2000-01-79 09:07:0031.7[facility] ItnxfetBNMONTQFQC7225-48-54 09:07:0091.3[facility] OuujdmtHPVBDRUCGE8986-29-99 09:07:00 Test Item Value Reference Range Interpretation Comments MCH (test code = MCH) 30.6 pg 27.0-31.0 [facility] PwqosmtFTCTNBKBJN0884-66-52 09:07:0033.6[facility] HermannHEMATOLOGY 2019-10-31 09:07:0013.8[facility] MnnmvvpGWMJHUWFNX3223-41-52 09:07:71996Kjdxdwhe LyyrzfsDQHJUULWUD2397-38-76 09:07:006.8[facility] SaoamnlDEXWDDVUWK1367-45-95 09:07:0083.6[facility] HncxeqtXODSAXNRED6096-99-10 09:07:0011.1[facility] YQMUFCGIPE6589-09-80 09:07:005.3[facility] VmrrbebKEBLMSSQPN9527-91-13 09:07:009.2 [facility] TuqwgeuSEBZFBFINO9926-45-30 09:07:001.2[facility]annHEMATOLOGY 2019-10-31 09:07:000.6[facility] HermannCHEM YQLRA3187-72-62 09:07:63674Uxtrbdhl HermannCHEM MSLFM4015-85-33 09:07:0011[facility]annCHEM SFCPA7898-94-73 09:07:000.85[facility]annCHEM YLHYV7038-59-33 09:07:48709Gyjvecib HermannCHEM CSWQD9644-33-11 09:07:004.5[facility]annCHEM ZKAGB9432-70-65 09:07:00493 [facility]annCHEM MCZLN7865-14-78 09:07:0030[facility]annCHEM PANEL 2019-10-31 09:07:008.2[facility]annCHEM ZONLT9624-33-01 09:07:007.5[facility]annCHEM DNRYU8328-57-14 09:07:0073[facility] MlfhogfJKGMGSQRDA7358-89-04 09:07:0011.0[facility] WpzsovrJWOSMUNLRD6240-68-41 09:07:003.47[facility] VSNSUPQQKH6522-57-48 09:07:0010.6[facility] PseivpbRJLPDHUDLH3008-80-15 09:07:00 31.7[facility] MxojkxiYBYXWVRGDI9114-42-70 09:07:0091.3[facility] HermannHEMATOLOGY 2019-10-31 09:07:00 Test Item Value Reference Range Interpretation Comments MCH (test code = MCH) 30.6 pg 27.0-31.0 [facility] ZkexuccYNPYUBEUGE7757-97-94 09:07:0033.6[facility]annHEMATOLOGY 2019-10-31 09:07:0013.8[facility] HwxokfrUCHEKSIBYI0200-18-69 09:07:12697Oaygcthi SlysyegYVFZAZJADZ4300-25-42 09:07:006.8[facility] IgpvwwwMVBIQYHHHR3972-83-47 09:07:0083.6[facility] LgwdttgUCGYPELZMR7506-00-21 09:07:0011.1[facility] UZWYUNXVAP1150-33-46 09:07:005.3[facility] QmgbgldJSRWGJVDSS1091-57-46 09:07:009.2 [facility] MmjnveqSCELUPAMSV5591-32-32 09:07:001.2[facility]annHEMATOLOGY 2019-10-31 09:07:000.6[facility] JfebelgEMVPMCXBUW0561-54-53 21:10:0013.0[facility] NdwgcpvEYKXORHKDQ8569-93-72 21:10:003.42[facility] KpjkamiZLTVWKKGWR2264-51-72 21:10:0010.3[facility] MjxojmpRRZEFHHBNJ1177-83-38 21:10:0031.9[facility] RCDMYHEGWQ5606-65-00 21:10:0093.2[facility] JpqoyoxDKPUMSBASB2564-15-43 21:10:00 Test Item Value Reference Range Interpretation Comments MCH (test code = MCH) 30.2 pg 27.0-31.0 [facility] QjvlxqqWCAIAQIDJV0402-55-75 21:10:0032.4[facility] HermannHEMATOLOGY 2019-10-30 21:10:0013.9[facility] EdisxlrPWKTCQUKFT3062-84-54 21:10:32612Cuayrrzd XflmtxbZBNLAIDTXJ9687-68-75 21:10:006.9[facility] CqpobusHDMHZTGRGC1019-49-07 21:10:0013.0[facility] YjtdnuvMXKAYYDYSE4962-23-14 21:10:003.42[facility] WXTLAWQKHB0866-74-01 21:10:0010.3[facility] SloutogAUFYUDVQKH7032-91-19 21:10:00 31.9[facility] KbzoesbGTYBBAGFYB1354-86-21 21:10:0093.2[facility]annHEMATOLOGY 2019-10-30 21:10:00 Test Item Value Reference Range Interpretation Comments MCH (test code = MCH) 30.2 pg 27.0-31.0 [facility] VqvbhuvRGLIDNIGVW7801-26-09 21:10:0032.4[facility]annHEMATOLOGY 2019-10-30 21:10:0013.9[facility] NwcvucwNFVXFHWKHK8651-41-16 21:10:28338Oacvgbws LclqqocUSIYUBHOLS1685-05-41 21:10:006.9[facility] HermannBLOOD BANK RESULTS 2019-10-30 19:16:00Product available (10/30/19 2:16 PM)[facility]annBLOOD BANK UKFASNM6738-93-75 19:16:00Product available (10/30/19 2:16 PM)[facility] BACTERIAL - TKFIDNGZ9895-63-67 18:12:00Negative (10/25/19 1:12 PM)[facility]annBL[facility]OD BANK TMRHHBX7394-09-42 18:12:00Negative (10/25/19 1:12 PM)[facility] HermannCHEM WPUKI4931-88-83 18:12:0092[facility] HermannCHEM VKYPZ0458-27-52 18:12:0012[facility] HermannCHEM DZORF3426-41-05 18:12:000.83[facility] HermannCHEM CUCBS2302-29-25 18:12:20951Seeyxshe HermannCHEM DCLXL2352-15-02 18:12:004.3 [facility]annCHEM PVVTT0220-03-29 18:12:51723Hrsthuoa HermannCHEM PANEL 2019-10-25 18:12:0029[facility] HermannCHEM ZZCGO0754-55-95 18:12:009.2[facility] HermannCHEM EETRN4291-04-93 18:12:0010.3[facility] HermannCHEM VBWWS1161-52-36 18:12:0075[facility] RnkzteqGJGFPFXGNF6326-66-06 18:12:0047.8[facility] YTWSAUMPZI8258-77-50 18:12:0045.1[facility] PaskqcoPTUJMRDRAV4680-13-83 18:12:00 5.5[facility] IslrxruJFPFFRKOFD1892-01-94 18:12:001.3[facility] HermannHEMATOLOGY 2019-10-25 18:12:000.3[facility] NtoqmsaPGMXLEBBWP6195-54-43 18:12:003.5[facility] SscjohqXTOGDKSCKE1651-15-33 18:12:003.3[facility] NzcncnlRJKOEEVZAF8712-21-79 18:12:000.4[facility] LnryenmRTRMCWCZOZ8072-65-96 18:12:000.1[facility] CFWLAQPNOY6557-70-79 18:12:007.4[facility] WnuhzqrBGUCTBNHJL8957-83-94 18:12:00 5.13[facility] VgjozcdOAOAWINDPF6815-04-37 18:12:0015.5[facility] HermannHEMATOLOGY 2019-10-25 18:12:0047.6[facility] BzkuhbuMGDTSOYQRD1823-89-50 18:12:0092.9[facility] FzfwqflLEEBTYZFFA6197-53-87 18:12:00 Test Item Value Reference Range Interpretation Comments MCH (test code = MCH) 30.2 pg 27.0-31.0 [facility] DzleyqgNPZBLXOQSY1327-46-83 18:12:0032.5[facility] HermannHEMATOLOGY 2019-10-25 18:12:0013.8[facility] RrgmmoaAIKJQLQIPX1761-47-74 18:12:15322Dzaxyyhh DfednzpAADBINYWUS4572-66-59 18:12:006.9[facility] PdtliuyPFZZQBHYZY4330-48-94 18:12:00 Test Item Value Reference Range Interpretation Comments PT (test code = PT) 12.4 s 12.0-14.7 [facility] IrgpbqiWZYWBWQAGC3362-63-15 18:12:00 Test Item Value Reference Range Interpretation Comments INR (test code = INR) 0.92 1 0.85-1.17 [facility] AmaomsfKKDWSDVGXV3581-22-16 18:12:00 Test Item Value Reference Range Interpretation Comments PTT (test code = PTT) 30.1 s 22.9-35.8 [facility]annSPECIAL DQOTJYEAS8597-38-58 18:12:007.2[facility]annUR[facility] AND KYRRC3528-96-12 18:12:00Clear (10/25/19 1:12 PM)[facility] STOOL 2019-10-25 18:12:00 Test Item Value Reference Range Interpretation Comments UA Spec Grav (test code = UA Spec 1.025 1 Grav) [facility] MKKHE7418-72-11 18:12:00 Test Item Value Reference Range Interpretation Comments UA pH (test code = UA pH) 5.0 1 5.0-8.0 [facility] DDESL7663-70-27 18:12:00Negative *NA*(10/25/19 1:12 PM) [facility] DPADK7093-74-89 18:12:00Negative (10/25/19 1:12 PM) [facility] RFYQI9047-09-65 18:12:00Negative (10/25/19 1:12 PM) [facility] ZIOXC0780-99-60 18:12:00Negative (10/25/19 1:12 PM) [facility] COOVR9359-82-09 18:12:002[facility]annUR[facility] AND TWWTE5212-85-04 18:12:001[facility] HermannBACTERIAL - MYIIELSR2324-87-38 18:12:00 Negative (10/25/19 1:12 PM)[facility]annBLOOD BANK MWMZZXT6810-65-14 18:12:00 Negative (10/25/19 1:12 PM)[facility] HermannCHEM FQNOL2758-67-25 18:12:0092 [facility]annCHEM WLDCP7417-16-72 18:12:0012[facility] HermannCHEM PANEL 2019-10-25 18:12:000.83[facility] HermannCHEM JSQCS4251-53-83 18:12:71454Xgvgttve HermannCHEM BDLTR4819-62-66 18:12:004.3[facility] HermannCHEM PYASN8163-56-38 18:12:28319Zishktqb HermannCHEM JBXCC5559-92-91 18:12:0029[facility] HermannCHEM NINXG4613-04-32 18:12:009.2[facility] HermannCHEM FHHHV5101-58-22 18:12:0010.3 [facility]annCHEM KADUV8597-98-09 18:12:0075[facility]annHEMATOLOGY 2019-10-25 18:12:0047.8[facility] RqkdzjvQKKUMSDTIM5225-70-17 18:12:0045.1[facility] KnpgxvpTXCUHZALQR3199-67-13 18:12:005.5[facility] UhvqrbnBDGPCEHKMS3420-05-30 18:12:001.3[facility] LkccvvrSRMRPCTGGX7517-19-47 18:12:000.3[facility] QMCXGNVAKK3231-20-13 18:12:003.5[facility] LgepfbvEGRXZIXDQA9670-00-84 18:12:003.3 [facility] QstfklhBTUGZPJRSN8998-14-97 18:12:000.4[facility] HermannHEMATOLOGY 2019-10-25 18:12:000.1[facility] OrhrlaiIXOQVAGIBD8834-40-22 18:12:007.4[facility] FmrprytSOSYWAHJEG2259-42-31 18:12:005.13[facility] UpixzkkKXKPTWONUS4658-79-38 18:12:0015.5[facility] BgmpppvEWRKLKJYLY5003-17-70 18:12:0047.6[facility] SJOYJUVVCQ8579-70-12 18:12:0092.9[facility] BdjiksoFGMOPMNPNU9328-68-70 18:12:00 Test Item Value Reference Range Interpretation Comments MCH (test code = MCH) 30.2 pg 27.0-31.0 [facility] SiynwrqYNDCMHNINS2740-02-43 18:12:0032.5[facility] HermannHEMATOLOGY 2019-10-25 18:12:0013.8[facility] EoavwlfRLPFNOWHBM7444-40-15 18:12:92099Txslgmki QvlszkbISELSWHJLF8104-35-69 18:12:006.9[facility] AkwfweyPLFSSHDHLB3018-58-00 18:12:00 Test Item Value Reference Range Interpretation Comments PT (test code = PT) 12.4 s 12.0-14.7 [facility] BanevcwAALFEMBCBU9935-55-92 18:12:00 Test Item Value Reference Range Interpretation Comments INR (test code = INR) 0.92 1 0.85-1.17 [facility] MbcosjtKOLAYGUUXP7097-26-11 18:12:00 Test Item Value Reference Range Interpretation Comments PTT (test code = PTT) 30.1 s 22.9-35.8 [facility] HermannSPECIAL WPJXKNBRY6176-04-23 18:12:007.2[facility] HermannURINE AND ZETZF5314-57-80 18:12:00Clear (10/25/19 1:12 PM)[facility]ann[facility] AND STOOL 2019-10-25 18:12:00 Test Item Value Reference Range Interpretation Comments UA Spec Grav (test code = UA Spec 1.025 1 Grav) [facility] AND QIQMR1347-28-05 18:12:00 Test Item Value Reference Range Interpretation Comments UA pH (test code = UA pH) 5.0 1 5.0-8.0 [facility] KOIIT6777-89-23 18:12:00Negative *NA*(10/25/19 1:12 PM) [facility] ZIZKO4722-88-05 18:12:00Negative (10/25/19 1:12 PM) [facility] OEKST5731-45-18 18:12:00Negative (10/25/19 1:12 PM) [facility] AYHET5300-99-23 18:12:00Negative (10/25/19 1:12 PM) [facility] MVGPM8725-43-28 18:12:002[facility]ann[facility] AND ANPDC5672-47-99 18:12:001[facility] SkoqfvpIDSVZLZRPK9878-87-17 17:24:00Not Detected (10/25/19 12:24 PM)[facility] DytjtnjVKLBZIMZKJ0319-92-69 17:24:00Not Detected (10/25/19 12:24 PM)[facility] UsbnpzhVCEBUULQTF1142-76-31 16:43:00Not Detected (10/19/19 11:43 AM)[facility] ZeqptbcNDNGALBNAG5632-75-30 16:43:00Not Detected (10/19/19 11:43 AM)[facility] HermannBLOOD ULNUWIQ4666-98-79 22:00:00 Test Item Value Reference Range Interpretation Comments CULTURE (BEAKER) (test No growth in 5 days code = 1095) BLOOD [id number] 22:00:00 Test Item Value Reference Range Interpretation Comments CULTURE (BEAKER) (test No growth in 5 days code = 1095) POCT-GLUCOSE [id number] 12:00:00 Test Item Value Reference Range Interpretation Comments POC-GLUCOSE METER 90 mg/dL 70-110 TESTED AT [facility] [address] (BEAKER) (test code = [address] [facility] [place] [address]) [address] POCT-GLUCOSE [id number] 08:25:00 Test Item Value Reference Range Interpretation Comments POC-GLUCOSE METER 103 mg/dL 70-110 TESTED AT [address] ([facility]) (test code [address] [facility] [place] = 1538) [address] POCT-GLUCOSE [id number] 20:14:00 Test Item Value Reference Range Interpretation Comments POC-GLUCOSE METER 135 mg/dL 70-110 H TESTED AT [address] ([facility]) (test code [address] [facility] [place] = 1538) [address] POCT-GLUCOSE [id number] 20:13:00 Test Item Value Reference Range Interpretation Comments POC-GLUCOSE METER 101 mg/dL 70-110 TESTED AT [address] ([facility]) (test code [address] [facility] [place] = 1538) [address] RAD, CHEST, 2 [id number] 16:34:00Reason for exam:->f/u infiltrateFINAL REPORT CHEST, AP [...] MDReport Verified Date/Time: 12/22/2018 16:34:43 Reading Location: [facility] Radiology Reading Room POCT-GLUCOSE [id number] 08:37:00 Test Item Value Reference Range Interpretation Comments POC-GLUCOSE METER 148 mg/dL 70-110 H TESTED AT [address] ([facility]) (test code [address] [facility] [place] = 1538) [address] BASIC METABOLIC [id number] 05:01:00 Test Item Value Reference Range Interpretation Comments SODIUM ([facility]) 139 meq/L 135-148 (test code = 381) [...] PATIEN TS. CBC W/PLT COUNT & AUTO [id number] 04:38:00 Test Item Value Reference Range Interpretation [...] PERCENT (BEAKER) (test code = 2801) POCT-GLUCOSE [id number] 20:46:00 Test Item Value Reference Range Interpretation Comments POC-GLUCOSE METER 236 mg/dL 70-110 H TESTED AT [address] ([facility]) (test code [address] [facility] [place] = 1538) [address] POCT-GLUCOSE [id number] 18:27:00 Test Item Value Reference Range Interpretation Comments POC-GLUCOSE METER 100 mg/dL 70-110 TESTED AT [address] ([facility]) (test code [address] [facility] [place] = 1538) [address] CHEM [id number] 10:36:002.5[facility] HermannCHEM SDLWF2036-28-91 10:36:003.1 [facility]annCHEM KYZWM4220-00-39 10:36:007.7[facility] HermannCHEM PANEL 2017-06-09 10:36:008.7[facility] HermannCHEM YPYDG4099-32-27 10:36:0024[facility] HermannCHEM FDHDZ3359-78-09 10:36:98982Mhanjzof HermannCHEM YDZBJ3780-04-17 10:36:004.1[facility] HermannCHEM IEGYO0587-84-24 10:36:73828Dxvutwdu HermannCHEM MUCQP9726-91-86 10:36:0044[facility] HermannCHEM YYPYE3048-09-32 10:36:000.3 [facility] YRLDG4498-42-47 10:36:0071[facility] HermannCHEM PANEL 2017-06-09 10:36:003.2[facility] HermannCHEM BSMTN6609-77-39 10:36:0094[facility] HermannCHEM FSHXB1783-95-66 10:36:70577Fkgxwvkr HermannCHEM VMYAW0437-53-61 10:36:000.70[facility] HermannCHEM SIBUC5658-83-21 10:36:0012[facility] HermannCHEM IZXQA4257-39-83 10:36:16783Bpajostz HermannCHEM FNGBN4385-93-63 10:36:00 Test Item Value Reference Range Interpretation Comments A/G Ratio (test code = A/G Ratio) 0.7 1 0.7-1.6 [facility]2018-01-25 10:36:0015.1[facility] 2017-06-09 10:36:004.5[facility] [facility]annCHE[facility] YASOT7232-74-15 10:36:00 Test Item Value Reference Range Interpretation Comments B/C Ratio (test code = B/C Ratio) 17 1 6-25 [facility]CuxyeikTRELAIBOLC4381-32-18 10:36:00 Test Item Value Reference Range Interpretation Comments PTT (test code = PTT) 31.3 s 22.9-35.8 [facility] BrookIkhfjsySGIODPOIHY6615-48-96 10:36:00 Test Item Value Reference Range Interpretation Comments INR (test code = INR) 1.04 1 0.85-1.17 [facility] BrookEqedpcnZRVNWEHULD9013-89-62 10:36:00 Test Item Value Reference Range Interpretation Comments PT (test code = PT) 13.6 s 12.0-14.7 [facility] BrookXrgbzzaTKLHQBPNTC7052-61-41 10:36:000.3[facility]annHE[facility] 2017-[facility]-09 10:36:001.3[facility] FfytpprQRGXHLOFOV0198-88-79 10:36:0084.9[facility] LvfblqwDQIMRGSKNN0075-66-31 10:36:009.0[facility] HnncwyiRHHFUJFFVJ2962-03-92 10:36:000.1[facility] FijgwqrBKHJDMYUWX0419-07-79 10:36:0012.5[facility] YASLYCGZQU4066-71-89 10:36:002.5[facility] GpzkhkvTIOYSQECBW2635-38-38 10:36:00 4.13[facility] RxkeoumZKCGBUKOBD9881-57-60 10:36:0010.6[facility]annHEMATOLOGY 2017-06-09 10:36:00 Test Item Value Reference Range Interpretation Comments MCH (test code = MCH) 31.4 pg 27.0-31.0 [facility] LtepuriSIMOPSMVUR1028-40-99 10:36:0012.5[facility] HermannHEMATOLOGY 2017-06-09 10:36:0034.6[facility] OfvkpwwEAPLIMXVCN1672-00-64 10:36:0013.0[facility] JirvhxyQZTBNQNKJH8118-31-04 10:36:0090.7[facility] YdeudehKYHAEXQGMJ9476-37-43 10:36:0037.4[facility] IkuhjfxEIXRZPXRQL3667-51-47 10:36:007.7[facility] OMILIRNMEP1069-50-22 10:36:11678Bdaggzkx HermannCHEM ZPIPQ5450-47-19 10:36:002.5 [facility]annCHE[facility] LXRJX6343-77-57 10:36:003.1[facility] HermannCHEM PANEL 2017-06-09 10:36:007.7[facility] HermannCHEM PPCNO3280-86-30 10:36:008.7[facility] HermannCHEM WDTYA9782-65-72 10:36:0024[facility]annCHEM VNBIA2559-39-06 10:36:52906Wfrctabv HermannCHEM KCRBJ6455-56-60 10:36:004.1[facility] HermannCHEM JVBQC7335-39-09 10:36:47642Qmbnlygl HermannCHEM PCEGS5178-04-53 10:36:0044 [facility]annCHEM DGTQK9888-28-37 10:36:000.3[facility] HermannCHEM PANEL 2017-06-09 10:36:0071[facility]annCHEM NRKRA0022-66-47 10:36:003.2[facility] HermannCHEM ANKFD6946-13-83 10:36:0094[facility]annCHEM LTJKO1717-92-67 10:36:00426Bzurpujv HermannCHEM AKERJ9479-33-14 10:36:000.70[facility] HermannCHEM BLHEQ5513-00-40 10:36:0012[facility]annCHEM SAVNJ2991-37-82 10:36:86563 [facility] HermannCHEM SJBFB0102-35-88 10:36:00 Test Item Value Reference Range Interpretation Comments A/G Ratio (test code = A/G Ratio) 0.7 1 0.7-1.6 [facility] KQAGP2357-32-11 10:36:0015.1[facility] HermannCHEM PANEL 2017-06-09 10:36:004.5[facility] HermannCHEM MPRSW2284-33-65 10:36:00 Test Item Value Reference Range Interpretation Comments B/C Ratio (test code = B/C Ratio) 17 1 6-25 [facility] HospitalUrvxfjoEXIRBNFGZZ0893-26-13 10:36:00 Test Item Value Reference Range Interpretation Comments PTT (test code = PTT) 31.3 s 22.9-35.8 [facility]ZcuiittNQTCNFOBSL8093-69-89 10:36:00 Test Item Value Reference Range Interpretation Comments INR (test code = INR) 1.04 1 0.85-1.17 [facility] HospitalEpvomglIQVSQYRJKJ1918-68-59 10:36:00 Test Item Value Reference Range Interpretation Comments PT (test code = PT) 13.6 s 12.0-14.7 [facility] HospitalKapxijrFAVEIOJYBC2642-98-04 10:36:000.3[facility] HermannHEMATOLOGY 2017-06-09 10:36:001.3[facility] EkymfmxSITVMVEXVH3037-06-42 10:36:0084.9[facility] DiyadonMMNXRIIRGI0335-88-79 10:36:009.0[facility] KnxhlzkJUIXNXIEOI9903-21-91 10:36:000.1[facility] TlykxxpECGNFUNNOS6559-55-30 10:36:0012.5[facility] EWLIRNNWSM2715-57-59 10:36:002.5[facility] BajjyfhQXWUGDEWSU2385-58-59 10:36:00 4.13[facility] GbqsedkMAHPVPYHGB7958-42-09 10:36:0010.6[facility] HermannHEMATOLOGY 2017-06-09 10:36:00 Test Item Value Reference Range Interpretation Comments MCH (test code = MCH) 31.4 pg 27.0-31.0 [facility] EfffynfFRMNHYUQSX5853-18-19 10:36:0012.5[facility] HermannHEMATOLOGY 2017-06-09 10:36:0034.6[facility] DmkfbazWGWIDDITET0141-58-86 10:36:0013.0[facility] HjjabwdMWYTSENIEY3705-10-59 10:36:0090.7[facility] MalihrzKDMHPPNWVT2655-12-86 10:36:0037.4[facility] XtxgbfgUQUHTLGSUY8484-29-57 10:36:007.7[facility] WANJTXXDLC5049-54-89 10:36:75291Hyxykwea HermannCHEM SZWZJ6670-86-14 16:16:0080 [facility]annCHEM NNOYC4533-48-57 16:16:0010.1[facility] HermannCHEM PANEL 2017-06-08 16:16:0029[facility] HermannCHEM ORGDE3315-51-23 16:16:008.8[facility] HermannCHEM IHHMM3515-62-37 16:16:004.1[facility] HermannCHEM TZNTD6434-29-70 16:16:35213Qsjbdmmu HermannCHEM MFUBM3232-76-54 16:16:37031Hkbsadqu HermannCHEM TDEGM5020-22-54 16:16:000.80[facility] HermannCHEM RQGOP6278-84-29 16:16:87961 [facility]annCHEM VBQMP9650-04-55 16:16:0010[facility] HermannCHEM PANEL 2017-06-08 16:16:0080[facility] HermannCHEM RBAXE2300-42-60 16:16:0010.1[facility] HermannCHEM QMQWI3223-20-09 16:16:0029[facility] HermannCHEM SJRPX6839-45-94 16:16:008.8[facility] HermannCHEM OEXOT3869-83-85 16:16:004.1[facility] HermannCHEM XHLPF8463-40-03 16:16:01478Xyopymaz HermannCHEM VOWHL5212-73-93 16:16:34495 [facility] HermannCHEM UXTXJ3509-06-98 16:16:000.80[facility] HermannCHEM PANEL 2017-06-08 16:16:56172Bdmhntpj HermannCHEM KBCJF9058-05-87 16:16:0010[facility] WjiqsjjJMOANJZHWI0972-44-43 12:20:0013.9[facility] ApwglhqQIOKDIRAGU1465-28-80 12:20:0041.0[facility] DkmoaybQQWBJONVUY3734-28-32 12:20:0011[facility] ISHDMJJYUG8472-72-72 12:20:64216Hcakzdbx PogjhqjWMLZWULYOY3453-59-41 12:20:004.0 [facility] XvfarwlZZMFCIFJOG5848-16-23 12:20:90410Eauhrvyn HermannHEMATOLOGY 2017-06-08 12:20:87293Kyxvejps CmzlzznCJHQZNBYIM1744-69-11 12:20:0013.9[facility] HbslhkoVXAJYGOESK0273-19-11 12:20:0041.0[facility] LyjrrkvWZYFQFJHFZ0031-34-62 12:20:0011[facility] UbxoqcjDOXVETXMLZ4341-48-97 12:20:84320Hlovvylb Fr[facility] XIOLTNSCEM1596-84-72 12:20:004.0[facility] LpnlpgmYZNIJLAFZJ3004-40-68 12:20:17051 [facility] QouslxeGESZBEMVZK8381-46-50 12:20:82596Dorxqzdu HermannBLOOD BANK FSPWGDC8770-39-77 12:19:00Negative (06/08/17 6:19 AM)[facility]BL[facility] BANK PWXNNOZ4910-86-92 12:19:00Negative (06/08/17 6:19 AM)[facility] HermannELECTROLYTES 2017-06-03 16:25:007.2[facility] EzprqqeNWJYTDRTOUTP2339-30-27 16:25:0080[facility] OrzdeqjZDECRUAAUBST9097-12-05 16:25:30677Cxvllrzi YnnfwbdFDKFFYKLGGES2497-54-69 16:25:29971Hrqtrjbr AdwgjjzSEJYYUNDAWHB4601-98-08 16:25:009.3[facility] NMCTCBGMYOYT4217-18-41 16:25:0035[facility] KzljbedIJYSAPZPDDDI6207-49-31 16:25:00 5.2[facility] FyuqagoRHYIFVDRGLFT6568-71-48 16:25:000.80[facility] BTRIROJCNTXZ0808-69-46 16:25:007[facility] VsbtqmfNYDDFMMAYDTB6922-88-17 16:25:00 94[facility] LgngdqbSVHZDOMQNA4901-14-09 16:25:0013.1[facility] HermannHEMATOLOGY 2017-06-03 16:25:00 Test Item Value Reference Range Interpretation Comments MCH (test code = MCH) 30.7 pg 27.0-31.0 [facility] FpppxnkJFJRGIFIYQ1666-63-09 16:25:0033.4[facility] HermannHEMATOLOGY 2017-06-03 16:25:0092.0[facility] RezgxjcDRCZLPZKBW7648-66-66 16:25:0044.3[facility] GpqnnfhPGGTTAQNZW5659-73-84 16:25:004.81[facility] JsdqxvvPHDHQBOQNY1208-87-72 16:25:0014.8[facility] LecpsmoWKGIKDXDTG5488-66-60 16:25:007.3[facility] VSIJACIJEP7655-89-57 16:25:007.9[facility] ClgxcqsWDSHBFZOGK2883-11-15 16:25:78842 [facility] ExgnbcsDMQDWGFZSZ9968-11-02 16:25:000.1[facility] HermannHEMATOLOGY 2017-06-03 16:25:003.2[facility] FkckdpiGFPFRHUPFI1441-71-79 16:25:000.4[facility] DwpgevoDYNNKABFHR3517-59-67 16:25:001.9[facility] XqqxdmiVLPMNQIXNR6530-78-87 16:25:003.5[facility] KclopifRWHQPWBGEO5144-97-72 16:25:000.5[facility] KCMCPXFIBJ0203-01-92 16:25:0047.7[facility] IcmazhlWFUAVHNMUO8916-02-34 16:25:00 6.2[facility] ZnbiudgHXGLIWPOEM2149-30-88 16:25:0043.7[facility] HermannELECTROLYTES 2017-06-03 16:25:007.2[facility] XwomhmuMUXRGLOZBOMF1797-27-55 16:25:0080[facility] EyyymllWPINCTNPEBQA0145-11-80 16:25:32456Jmclspvv QzaeicdCSUYICROBXOW1542-61-25 16:25:70122Zktqwoke DdanhhgRAECBEIGXSGL4724-13-04 16:25:009.3[facility] EZMWCJSLZJIE0974-49-81 16:25:0035[facility] EdmygmbLZHMVTJPOGOR9890-08-80 16:25:00 5.2[facility] TexemvtKHVVCAVNNWMM7516-87-23 16:25:000.80[facility] SXIZQOUOFWLG5835-11-85 16:25:007[facility] SidffsbZTMXFQZVAPNA2468-70-57 16:25:00 94[facility] FivdkrkUTWOMYPSGU1952-96-84 16:25:0013.1[facility] HermannHEMATOLOGY 2017-06-03 16:25:00 Test Item Value Reference Range Interpretation Comments MCH (test code = MCH) 30.7 pg 27.0-31.0 [facility] JwjrlfzBDXKUOYXWU4243-23-91 16:25:0033.4[facility] HermannHEMATOLOGY 2017-06-03 16:25:0092.0[facility] QgvjamzNFOFNKIDRA1453-46-66 16:25:0044.3[facility] JhovipcQSIFVTBHRA9068-05-77 16:25:004.81[facility] WalhdgwDPQJERJSYS0005-24-81 16:25:0014.8[facility] InbwuryXUNDFKGLQI4126-03-14 16:25:007.3[facility] OMVHLQUXVS0515-38-41 16:25:007.9[facility] LactwgnANUUSCCVMV4773-22-37 16:25:83164 [facility] UlpltbhETLHIOVWRQ2699-34-00 16:25:000.1[facility] HermannHEMATOLOGY 2017-06-03 16:25:003.2[facility] NjzrgaaVBYQTNWFWF6731-14-49 16:25:000.4[facility] XwgpgcnSMJMWJGGNU5870-18-55 16:25:001.9[facility] AlpogleOFPQJRCIDP1110-94-33 16:25:003.5[facility] IvuaqeuXTDLQUTCIL2674-78-51 16:25:000.5[facility] QFDTKYVGVY2335-74-84 16:25:0047.7[facility] ExkhxseGPBTXLFHKS6119-47-29 16:25:00 6.2[facility] RhiaudcGNNAFPMSZT1056-87-49 16:25:0043.7[facility] HermannCHEM PANEL 2014-05-23 11:49:003.4[facility] HermannCHEM GDYEM9439-35-17 11:49:004.2[facility] HermannCHEM CDYHP3363-18-58 11:49:000.8[facility] HermannCHEM SPQEJ9316-91-48 11:49:007.6[facility] HermannCHEM KFXIR7419-99-77 11:49:25786Lbpqebct HermannCHEM GMYMA5540-62-05 11:49:0058[facility] HermannCHEM UOQWT3692-56-45 11:49:0054 [facility]annCHEM QBDXA3203-03-43 11:49:000.3[facility] HermannCHEM PANEL 2014-05-23 11:49:000.4[facility] HermannCHEM ENUXP1029-60-59 11:49:000.1[facility] HermannCHEM YIHCO3842-55-95 11:49:001.8[facility] HermannCHEM GPVHZ8876-66-91 11:49:0096[facility] HermannCHEM GYMXR6651-77-28 11:49:18356Valjfjio HermannCHEM SMZAU3275-92-75 11:49:009.2[facility] HermannCHEM BXXLR0160-73-04 11:49:0025 [facility] HermannCHEM SQAVH7670-09-68 11:49:000.7[facility] HermannCHEM PANEL 2014-05-23 11:49:48900Lrkrmwfy HermannCHEM IZCZP2344-41-25 11:49:004.1[facility] HermannCHEM LRTAV4996-94-72 11:49:0010[facility] HermannCHEM SHLUO8967-23-97 11:49:96217Uznreihe HermannCHEM JNSAG2904-28-59 11:49:0013.1[facility] LJANIPTTVV6538-00-62 11:49:00 Test Item Value Reference Range Interpretation Comments MCH (test code = MCH) 31.7 pg 27.0-31.0 [facility] NqzjuqxPGVQDYKPTG8313-41-86 11:49:0034.3[facility] HermannHEMATOLOGY 2014-05-23 11:49:59784Uyvhqleg SldskkiRHAOUUHZUG9849-44-05 11:49:0012.8[facility] EoyjgivAYEGILFXHR8684-92-36 11:49:008.0[facility] TymzfjjUQQHXJMYCO6396-19-29 11:49:004.33[facility] AvolqjtMHDDXNJFIJ1685-61-87 11:49:0010.3[facility] UPYKPTWWDU1923-91-93 11:49:0092.2[facility] WqmbhqwLEZNYEYHOM5549-57-26 11:49:00 40.0[facility] YjvdnkgQTNZIGBSAZ6151-72-41 11:49:0013.7[facility] HermannHEMATOLOGY 2014-05-23 11:49:000.1[facility] IbogzltXHMWIILYNS3399-79-62 11:49:0010.9[facility] JuzzfocNKQPUDXCIY0099-69-43 11:49:001.1[facility] WbvggbvRUJPDXAXVN3873-47-78 11:49:000.8[facility] QpeotfuXUSVSKYYFC0164-56-55 11:49:009.0[facility] HLCVGTEKSS2789-76-50 11:49:001.1[facility] HovzeuhGTWEKCYAQA3772-80-18 11:49:000.1 [facility] AfghqxiQAKVKDPXDW4476-20-86 11:49:0087.2[facility] HermannCHEM PANEL 2014-05-23 11:49:003.4[facility] HermannCHEM XLZSR8635-63-30 11:49:004.2[facility] HermannCHEM LNUGM9311-52-92 11:49:000.8[facility] HermannCHEM BOUVS6023-33-34 11:49:007.6[facility] HermannCHEM STAMC3603-17-70 11:49:26232Lmaovyee HermannCHEM VAGAQ3547-22-72 11:49:0058[facility] HermannCHEM PQDWA7852-98-32 11:49:0054 [facility] HermannCHEM GAOWN3060-38-06 11:49:000.3[facility] HermannCHEM PANEL 2014-05-23 11:49:000.4[facility] HermannCHEM IVCFO9200-02-05 11:49:000.1[facility] HermannCHEM MDJHI9160-70-96 11:49:001.8[facility] HermannCHEM NSOFT3427-02-10 11:49:0096[facility] HermannCHEM CNNDQ5743-53-58 11:49:94056Dmauzltz HermannCHEM ASOXI8241-07-52 11:49:009.2[facility] HermannCHEM GJJLB1625-12-54 11:49:0025 [facility] HermannCHEM NRNDP7565-22-77 11:49:000.7[facility] HermannCHEM PANEL 2014-05-23 11:49:98985Qpsgttud HermannCHEM EDUTT5326-27-10 11:49:004.1[facility] HermannCHEM YXAIE6907-37-01 11:49:0010[facility] HermannCHEM JYDES1326-29-92 11:49:14045Cmjleffi HermannCHEM KHYMT6558-22-09 11:49:0013.1[facility] SZWMMSGDKS8913-70-59 11:49:00 Test Item Value Reference Range Interpretation Comments MCH (test code = MCH) 31.7 pg 27.0-31.0 [facility] LwdsdsgEPOZSFOYTF4466-51-38 11:49:0034.3[facility] HermannHEMATOLOGY 2014-05-23 11:49:96827Rnqxfrpp MepozqyNNFIYRYIRY0625-17-89 11:49:0012.8[facility] ZclcnqzISEAKZCBWO8254-89-33 11:49:008.0[facility] WhqqiweYPTLQSQWVO9694-88-75 11:49:004.33[facility] BzxuvxbPFWUAMRLZX1765-47-07 11:49:0010.3[facility] ZMIIDGRVVO1261-38-79 11:49:0092.2[facility] AjddtkiRQAMXYYOAY9587-13-19 11:49:00 40.0[facility] MbzxhyzLZHDBMBIYM8315-13-96 11:49:0013.7[facility] HermannHEMATOLOGY 2014-05-23 11:49:000.1[facility] QakssnlKJIDQJFVHQ2985-57-30 11:49:0010.9[facility] FnkrkzsBCXESPPAXP0256-87-65 11:49:001.1[facility] WdidhxgLDDMOFOQVX3236-23-73 11:49:000.8[facility] FrftbmsAJNKUJUJLC3890-72-44 11:49:009.0[facility] YCIVLIVUNJ8235-36-73 11:49:001.1[facility] AyjvhejLHKWVYSVUX5233-41-86 11:49:000.1 [facility] DgjvztfPYJZORFNYK0668-01-46 11:49:0087.2[facility] HermannCHEM PANEL 2014-05-22 20:29:0071[facility] HermannCHEM OUVUZ5558-15-48 20:29:008.4[facility] HermannCHEM FDVFX6205-69-19 20:29:0012.4[facility] HermannCHEM FJZUM7926-97-16 20:29:0027[facility] HermannCHEM IURWK1982-97-95 20:29:95542Xmyymlvu HermannCHEM WTNBP4237-62-78 20:29:003.4[facility] HermannCHEM FETVB3739-82-84 20:29:69131 [facility]annCHEM RQWJW5063-72-94 20:29:0013[facility] HermannCHEM PANEL 2014-05-22 20:29:64200Unysawad HermannCHEM USNXG3435-47-25 20:29:000.9[facility] HermannCHEM HLLSB0268-33-25 20:29:0071[facility] HermannCHEM TTERR4186-14-00 20:29:008.4[facility] HermannCHEM QKSEA1539-28-51 20:29:0012.4[facility] HermannCHEM EJSEH2812-45-53 20:29:0027[facility] HermannCHEM RVESH6186-01-44 20:29:39797 [facility] HermannCHEM NUPCX5928-49-07 20:29:003.4[facility] HermannCHEM PANEL 2014-05-22 20:29:17964Zbcpgulv HermannCHEM GHAKH4692-99-57 20:29:0013[facility] HermannCHEM HNMRL0034-63-77 20:29:65909Virtpsqa HermannCHEM TGCFT4736-84-39 20:29:000.9[facility] HermannBLOOD BANK BEEFSQB8002-83-02 16:53:00Negative (05/14/14 10:53 AM)[facility] AfukjeiMSCFSSECOR4726-96-42 16:53:007.8[facility] FtgjqfaNMYTMEJPAI1992-33-39 16:53:00 Test Item Value Reference Range Interpretation Comments MCH (test code = MCH) 31.0 pg 27.0-31.0 [facility] GvgdrcaVEHGORQONI2867-46-96 16:53:0034.3[facility] HermannHEMATOLOGY 2014-05-14 16:53:0012.5[facility] FlnfjhtOAGAJIZLJK5492-16-95 16:53:24584Doeaexaq YvtsokvGHAEGICEAR6775-04-51 16:53:0090.4[facility] CkoqpzhGMJFNQDZTQ1048-79-22 16:53:0014.5[facility] AuizodnXGHXOXNTDL4194-88-95 16:53:004.69[facility] YBYFIOUZPM9005-61-82 16:53:0042.4[facility] QcvlfdbSLEIMFVBJS1135-70-50 16:53:00 6.5[facility] ZdmerniVOFOPZHRRU6680-45-86 16:53:003.1[facility] HermannHEMATOLOGY 2014-05-14 16:53:002.9[facility] KeuqdneJAPPHJRFEZ8735-51-68 16:53:000.3[facility] DzceytqIXQVZYGHTM8655-55-15 16:53:006.4[facility] YvizuwxWJNIFRPCOH9717-57-21 16:53:0047.0[facility] XjocvjaGWKNXVJSGZ6298-59-67 16:53:002.0[facility] QRDWCIRMAC3633-68-42 16:53:0044.3[facility] VxfevutLUYOLSEFHI7020-08-47 16:53:00 0.0[facility] EixkdxoLPMVPSWHET9739-41-47 16:53:000.1[facility] HermannHEMATOLOGY 2014-05-14 16:53:000.4[facility] HermannBLOOD BANK SOFGHBX1962-73-13 16:53:00 Negative (05/14/14 10:53 AM)[facility] WnvmhvwFWIESTXRBY8075-69-39 16:53:007.8 [facility] GsctqzmGFUOOEUWLJ7806-65-42 16:53:00 Test Item Value Reference Range Interpretation Comments MCH (test code = MCH) 31.0 pg 27.0-31.0 [facility] KsxahgdHUMNIZGQCJ2527-72-16 16:53:0034.3[facility] HermannHEMATOLOGY 2014-05-14 16:53:0012.5[facility] OijzabiFFRKZNTPXH6170-00-05 16:53:20265Cpavhbox YdvvmzpOOASPLLSMD7229-90-63 16:53:0090.4[facility] CphdmtnMGDYYILXSG8185-08-86 16:53:0014.5[facility] WujeudmLZKWKQTRQB6347-34-22 16:53:004.69[facility] PQXGIUUNYG8526-08-85 16:53:0042.4[facility] MmelcljZQWKNTNQWK8223-17-07 16:53:00 6.5[facility] QzpzrcnNBRGBQMZFN5989-37-03 16:53:003.1[facility] HermannHEMATOLOGY 2014-05-14 16:53:002.9[facility] KyiwgmtOZGWNLEOYW5290-82-30 16:53:000.3[facility] QwjwpanXHHZLVSQZT3281-96-91 16:53:006.4[facility] NrxwcywZNXFMAHITJ6278-29-19 16:53:0047.0[facility] UjzdgyaGMRMELUCME6698-35-94 16:53:002.0[facility] BUIYFEFIGS8163-09-05 16:53:0044.3[facility] KzllvvuHESUMTFFEP3499-73-68 16:53:00 0.0[facility] WxckuhsSSCZTOZWCB7778-47-05 16:53:000.1[facility] HermannHEMATOLOGY 2014-05-14 16:53:000.4[facility]
--- NOTE | 2020-08-09 13:31 | RAD REPORT ---
EXAM DESCRIPTION: Nidia Single View08/09/2020 1:09 pm CLINICAL HISTORY: Cough COMPARISON: 2019 FINDINGS: Mild bilateral pulmonary opacities. Heart is normal size IMPRESSION: Bilateral pulmonary opacities may represent pulmonary edema or pneumonia
[2020-08-09] MEDS ORDERED: METHYLPREDNISOLONE 125 MG INJ ONE (14:26)
[2020-08-09 14:36] LABS: Absolute Lymphocytes (CBC) 2.1 K/uL (0.7-4.9); Basophils % 0.2 % (0-1.3); Hematocrit 41.2 % (36.0-45.0); Lymphocytes % 42.1 % (15.3-44.8); MPV 7.3 fL (7.6-11.3); RBC Red Blood Cell Count 4.62 M/uL (3.86-4.86)
[2020-08-09 14:52] LABS: BUN Blood Urea Nitrogen 5 mg/dL (7-18); Bicarbonate 31 mmol/L (21-32); Glucose Level 106 mg/dL (74-106); Sodium Level 139 mmol/L (136-145)
[2020-08-09 15:00] LABS: SARS-COV-2 RT PCR POSITIVE (NEGATIVE)
--- NOTE | 2020-08-09 15:29 | ER ---
Nurse's Notes [facility] Name: Kathy Ledesma Age: 64 yrs Sex: Female : 1955 Arrival Date: 08/09/2020 Time: 12:23 Bed 5 Private MD: Diagnosis: Coronavirus infection, unspecified;Pneumonia, unspecified organism;Hypoxemia Presentation: 08/09 12:29 Chief complaint: Patient states: SOB, cough, fatigue, RICHARDS for 3 days. Fighting ll1 "allergies" for 1 week. Pain to back area now. Coronavirus screen: Client denies travel out of the [place] in the last 14 days. congestion, cough unrelated to allergies, difficulty breathing, fatigue, headache, runny nose, shortness of breath, sore throat, loss of taste or smell, Client presents with at least one sign or symptom that may indicate coronavirus-19. Standard/surgical mask placed on the client. Ebola Screen: Patient denies travel to an Ebola-affected area in the 21 days before illness onset. Initial Sepsis Screen: Does the patient meet any 2 criteria? HR > 90 bpm. No. Patient's initial sepsis screen is negative. Does the patient have a suspected source of infection? Yes: Productive cough/pneumonia. Risk Assessment: Do you want to hurt yourself or someone else? Patient reports no desire to harm self or others. Onset of symptoms was August 07, 2020. 12:29 Method Of Arrival: Wheelchair ll1 12:29 Acuity: ZAK 3 ll1 Historical: - Allergies: 12:29 Cipro PO; ll1 12:29 Codeine; ll1 12:29 Iodinated Contrast Media - IV Dye; ll1 12:29 NSAIDS; ll1 12:29 Relafen; ll1 - PMHx: 12:29 Diabetes - NIDDM; Fibromyalgia; Hypothyroidism; shingles; CVA; COPD; spinal stenosis; ll1 - PSHx: 12:29 R knee replacement; total hip; ll1 - Immunization history:: Flu vaccine is up to date. - Social history:: Smoking status: Patient denies any tobacco usage or history of. - Family history:: not pertinent. - Hospitalizations: : No recent hospitalization is reported. Screenin:30 Abuse screen: Denies threats or abuse. Denies injuries from another. Nutritional sv screening: No deficits noted. Tuberculosis screening: No symptoms or risk factors identified. Fall Risk None identified. Assessment: 13:30 General: Appears in no apparent distress. uncomfortable, well developed, Behavior is sv calm, cooperative, appropriate for age. General: Reports feeling ill for > 3 days, fatigue for >3 days. Pain: Complains of pain in face and scalp Pain currently is 5 out of 10 on a pain scale. Quality of pain is described as aching, Pain began 1 week Is continuous. Neuro: Level of Consciousness is awake, alert, obeys commands, Oriented to person, place, time, situation, Moves all extremities. Full function Gait is steady, Speech is normal. Respiratory: Reports shortness of breath cough that is non-productive, dry, persistent Airway is patent Respiratory effort is even, unlabored, Respiratory pattern is regular, symmetrical. Derm: Skin is intact, Skin is pink, warm \\T\\ dry. Musculoskeletal: Range of motion: intact in all extremities. 14:16 Reassessment: Inside lab at the bedside to recollect blood. sv 15:26 Reassessment: Patient appears in no apparent distress at this time. No changes from sv previously documented assessment. Patient and/or family updated on plan of care and expected duration. Pain level reassessed. Patient is alert, oriented x 3, equal unlabored respirations, skin warm/dry/pink. 16:00 Reassessment: Pt given water. sv 16:14 Reassessment: Dr Vu at the bedside. sv 16:40 Reassessment: Patient appears in no apparent distress at this time. No changes from sv previously documented assessment. Patient and/or family updated on plan of care and expected duration. Pain level reassessed. Patient is alert, oriented x 3, equal unlabored respirations, skin warm/dry/pink. Vital Signs: 12:29 BP 111 / 66; Pulse 94; Resp 18; Temp 98.7; Pulse Ox 98% ; Weight 78.47 kg; Height 5 ft. ll1 2 in. (157.48 cm); Pain 5/10; 13:48 BP 123 / 58; Pulse 94; Resp 18; Pulse Ox 95% ; sv 15:07 BP 127 / 67; Pulse 90; Resp 16; Pulse Ox 91% on R/A; sv 15:09 Pulse Ox 98% on 2 lpm NC; sv 15:30 BP 110 / 41; Pulse 91; Resp 16; Pulse Ox 99% on 2 lpm NC; sv 16:15 BP 127 / 72; Pulse 91; Resp 16; Pulse Ox 98% on 2 lpm NC; sv 17:00 BP 110 / 55; Pulse 94; Resp 16; Pulse Ox 98% on 2 lpm NC; sv 12:29 Body Mass Index 31.64 (78.47 kg, 157.48 cm) ll1 15:07 Pt placed on O2 \\T\\ 2L per NC. sv ED Course: 12:23 Patient arrived in ED. ds1 12:27 Arm band placed on. ll1 12:31 Triage completed. ll1 12:39 Arie Prescott MD is Attending Physician. rn 13:09 XRAY Chest (1 view) In Process Unspecified. EDMS 13:24 Daniela Sorensen, MARQUES is Primary Nurse. sv 13:30 Patient has correct armband on for positive identification. Bed in low position. Call sv light in reach. Side rails up X 1. Pulse ox on. NIBP on. Door closed. Head of bed elevated. 13:30 Missed attempt(s): 20 gauge in right antecubital area. Bleeding controlled, band aid sv applied, catheter tip intact. 13:35 Inserted saline lock: 22 gauge in right forearm, using aseptic technique. ,using sv aseptic technique. diffusics Blood collected. Flushed right forearm with 5 ml normal saline. 13:36 COVID swab sent to lab. Flu and/or RSV swab sent to lab. sv 15:27 Salty Vu is Hospitalizing Provider. rn 16:51 Awaiting bed assignment. sv 17:12 No provider procedures requiring assistance completed. Patient admitted, IV remains in sv place. intact. Administered Medications: 14:15 Drug: SOLU-Medrol 125 mg Route: IVP; Site: right forearm; sv 14:55 Follow up: Response: No adverse reaction sv Outcome: 15:28 Decision to Hospitalize by Provider. rn 17:13 Admitted to Med/surg accompanied by tech, via wheelchair, room 406, with oxygen, with sv chart, Report called to Colin RN 17:13 Condition: stable 17:13 Instructed on the need for admit. 17:24 Patient left the ED. sv Signatures: Dispatcher [employer] EDTX Daniela Sorensen RN RN Haley Chirinos ds1 Arie Prescott MD MD rn Chuy, Jenni, MARQUES RN ll1
--- NOTE | 2020-08-09 15:29 | EDPHYS ---
Physician Documentation [facility] Name: Kathy Ledesma Age: 64 yrs Sex: Female : 1955 Arrival Date: 08/09/2020 Time: 12:23 Bed 5 Private MD: ED Physician Arie Prescott HPI: 08/09 12:59 This 64 yrs old Female presents to ER via Wheelchair with complaints of rn Shortness Of Breath, Back Pain. 12:59 The patient has shortness of breath at rest, with light activity. rn 12:59 Onset: The symptoms/episode began/occurred 3 day(s) ago. Duration: The symptoms are rn intermittent. The patient's shortness of breath is aggravated by coughing, light activity, is alleviated by nothing. Associated signs and symptoms: Pertinent positives: non-productive cough, chills, myalgias. Severity of symptoms: At their worst the symptoms were moderate in the emergency department the symptoms are unchanged. The patient has not experienced similar symptoms in the past. The patient has not recently seen a physician. Reports 3-4 days of cough, headache, malaise, myalgias, loss of taste. Reports hx of asthma, inhaler not resolving issue. . Historical: - Allergies: 12:29 Cipro PO; ll1 12:29 Codeine; ll1 12:29 Iodinated Contrast Media - IV Dye; ll1 12:29 NSAIDS; ll1 12:29 Relafen; ll1 - PMHx: 12:29 Diabetes - NIDDM; Fibromyalgia; Hypothyroidism; shingles; CVA; COPD; spinal stenosis; ll1 - PSHx: 12:29 R knee replacement; total hip; ll1 - Immunization history:: Flu vaccine is up to date. - Social history:: Smoking status: Patient denies any tobacco usage or history of. - Family history:: not pertinent. - Hospitalizations: : No recent hospitalization is reported. ROS: 12:59 Constitutional: + chills Eyes: Negative for injury, pain, redness, and discharge, ENT: rn Negative for injury, pain, and discharge, Neck: Negative for injury, pain, and swelling, Cardiovascular: Negative for chest pain, palpitations, and edema, Respiratory: + cough and mild sob Abdomen/GI: Negative for abdominal pain, nausea, vomiting, diarrhea, and constipation, MS/Extremity: Negative for injury and deformity, Skin: Negative for injury, rash, and discoloration, Neuro: + headache and generalized weakness 12:59 All other systems are negative. Exam: 12:59 Constitutional: This is a well developed, well nourished patient who is awake, alert, rn and in no acute distress. Head/Face: Normocephalic, atraumatic. Eyes: Pupils equal round and reactive to light, extra-ocular motions intact. Lids and lashes normal. Conjunctiva and sclera are non-icteric and not injected. Cornea within normal limits. Periorbital areas with no swelling, redness, or edema. ENT: no stridor Cardiovascular: Regular rate and rhythm. No pulse deficits. Respiratory: No increased work of breathing, no retractions or nasal flaring. Skin: Warm, dry MS/ Extremity: Pulses equal, no cyanosis. Neurovascular intact. Full, normal range of motion. Equal circumference. Neuro: Awake and alert, GCS 15 Vital Signs: 12:29 BP 111 / 66; Pulse 94; Resp 18; Temp 98.7; Pulse Ox 98% ; Weight 78.47 kg; Height 5 ft. ll1 2 in. (157.48 cm); Pain 5/10; 13:48 BP 123 / 58; Pulse 94; Resp 18; Pulse Ox 95% ; sv 15:07 BP 127 / 67; Pulse 90; Resp 16; Pulse Ox 91% on R/A; sv 15:09 Pulse Ox 98% on 2 lpm NC; sv 15:30 BP 110 / 41; Pulse 91; Resp 16; Pulse Ox 99% on 2 lpm NC; sv 16:15 BP 127 / 72; Pulse 91; Resp 16; Pulse Ox 98% on 2 lpm NC; sv 17:00 BP 110 / 55; Pulse 94; Resp 16; Pulse Ox 98% on 2 lpm NC; sv 12:29 Body Mass Index 31.64 (78.47 kg, 157.48 cm) ll1 15:07 Pt placed on O2 \T\ 2L per NC. sv MDM: 12:39 Patient medically screened. rn 15:26 Differential diagnosis: Bronchitis Chronic Obstructive Pulmonary Disease pneumonia, rn Pneumothorax pulmonary edema, Sepsis COVID pneumonia. Data reviewed: vital signs, nurses notes, lab test result(s), EKG, radiologic studies, plain films, and as a result, I will admit patient. Counseling: I had a detailed discussion with the patient and/or guardian regarding: the historical points, exam findings, and any diagnostic results supporting the discharge/admit diagnosis, lab results, radiology results, the need for further work-up and treatment in the hospital. Admission orders: after a detailed discussion of the patient's condition and case, the admit orders are written by me. ED course: Will admit to [facility] for COVID pneumonia, + increased dyspnea and hypoxemia with minimal exertion, O2 91%. . 08/09 12:49 Order name: CBC with Diff; Complete Time: 15:23 rn 08/09 12:49 Order name: Basic Metabolic Panel; Complete Time: 15:06 rn 08/09 12:49 Order name: Procalcitonin; Complete Time: 15:23 rn 08/09 15:01 Order name: COVID-19/FLU A+B; Complete Time: 15:06 EDDE 08/09 12:49 Order name: XRAY Chest (1 view); Complete Time: 13:48 rn 08/09 12:49 Order name: IV Start; Complete Time: 13:47 rn 08/09 13:54 Order name: Labs - recollect needed: recollect all blood/ hemolyzed; Complete Time: eb 14:55 Administered Medications: 14:15 Drug: SOLU-Medrol 125 mg Route: IVP; Site: right forearm; sv 14:55 Follow up: Response: No adverse reaction sv Disposition: 08/09/20 15:28 Hospitalization ordered by [facility] for Inpatient Admission. Preliminary diagnosis are Coronavirus infection, unspecified, Pneumonia, unspecified organism, Hypoxemia. - Bed requested for Telemetry/MedSurg (Inpatient). - Status is Inpatient Admission. sv - Condition is Stable. - Problem is new. - Symptoms have improved. Signatures: Dispatcher [employer] EDMS Daniela Sorensen RN RN sv Woody, Diana, RN RN dw Nieto, Roman, MD MD rn Botello, Elizabeth eb Lewis, Lynsay, RN RN ll1 Corrections: (The following items were deleted from the chart) 13:48 12:50 CORONAVIRUS+MR.LAB.BRZ ordered. EDDE EDDE 13:49 12:50 Influenza Screen (A \T\ B)+BA.LAB.BRZ ordered. EDMS EDMS 17:03 15:28 Hospitalization Ordered by [facility] Vu for Inpatient Admission. Preliminary dw diagnosis is Coronavirus infection, unspecified; Pneumonia, unspecified organism; Hypoxemia. Bed requested for Telemetry/MedSurg (Inpatient). Status is Inpatient Admission. Condition is Stable. Problem is new. Symptoms have improved. rn 17:24 17:03 08/09/2020 15:28 Hospitalization Ordered by [facility] Vu for Inpatient sv Admission. Preliminary diagnosis is Coronavirus infection, unspecified; Pneumonia, unspecified organism; Hypoxemia. Bed requested for Telemetry/MedSurg (Inpatient). Status is Inpatient Admission. Condition is Stable. Problem is new. Symptoms have improved. dw
--- NOTE | 2020-08-09 16:30 | P.HP ---
Certification for Inpatient Patient admitted to: Observation With expected LOS: <2 Midnights Practitioner: I am a practitioner with admitting privileges, knowledge of patient current condition, hospital course, and medical plan of care. Services: Services provided to patient in accordance with Admission requirements found in Title 42 Section 412.3 of the Code of Federal Regulations Patient History Date of Service: 08/09/20 Reason for admission: Shortness of breath History of Present Illness: 64-year-old womanwith a history of COPD, hypertension, borderline diabetes hypothyroidism presented to the emergency department with a complaint of progressive shortness of breath and nonproductive of 3 days duration. Patient reports shortness of breath at rest, worse with exertion. Chest x-ray done in the emergency department demonstrated bilateral infiltrate. Patient tested positive for COVID 19. Patient was noted to be very dyspneic with exertion. Her oxygen saturation was 91% on room air at rest. CBC and blood chemistry are unremarkable. Patient is hospitalized for further monitoring. Allergies fentanyl Allergy (Intermediate, Verified 02/17/17 10:24) Hives/Rash codeine [Codeine] Allergy (Mild, Verified 02/17/17 10:24) Itching iodine [Iodine] Allergy (Mild, Verified 02/17/17 10:24) Hives/Rash nabumetone [From Relafen] Allergy (Verified 02/17/17 10:24) Hives NSAIDS (Non-Steroidal Anti-Inflamma Adverse Reaction (Intermediate, Verified 02/17/17 10:24) Hives/Rash ciprofloxacin HCl [From Cipro] Adverse Reaction (Verified 02/17/17 10:24) flu like symptoms levofloxacin [From Levaquin] Adverse Reaction (Verified 02/17/17 10:24) flu like symptoms morphine Adverse Reaction (Verified 02/17/17 10:24) hallucinations Home Medications: Cholecalciferol (Vitamin D3) [Vitamin D3] 2,000 unit PO DAILY 05/28/15 Citalopram Hydrobromide [Celexa] 20 mg PO DAILY 05/28/15 Levothyroxine [Synthroid*] 100 mcg PO DAILY 05/28/15 Colon Health 1 cap PO DAILY 08/25/16 Aspirin [Aspirin EC 325 MG] 325 mg PO DAILY #30 tablet. 08/26/16 Metformin HCl [Glucophage] 500 mg PO DAILY WITH BREAKFAST 02/17/17 - Past Medical/Surgical History Diabetic: Yes -: fibromyalgia -: copd -: asthma -: soinal stenosis -: osteoarthritis -: low growth hormone defiency -: multiple bone spur sx -: hysterectomy -: fundalplication -: neck surgery for spinal stenosis x2 -: knee sx -: hernia surgery to right foot -: shawn - Family History Father -: Heart disease, Hypertension, Diabetes, Stroke, Cancer Mother -: Hypertension, Other (see notes) Notes: arthritis - Social History Smoking Status: Never smoker Alcohol use: Yes CD- Drugs: No Caffeine use: Yes Review of Systems Other: Except as documented, all other systems reviewed and negative. Physical Examination - Physical Exam General: Alert, In no apparent distress, Oriented x3 HEENT: Atraumatic, Normocephalic, PERRLA, Mucous membr. moist/pink Neck: Supple, JVD not distended Respiratory: Clear to auscultation bilaterally, Diminished Cardiovascular: No edema, Regular rate/rhythm, Normal S1 S2 Capillary refill: <2 Seconds Gastrointestinal: Normal bowel sounds, Soft and benign, Non-distended, No tenderness Musculoskeletal: No swelling, No tenderness Integumentary: No rashes, No erythema Neurological: Normal speech, Normal strength at 5/5 x4 extr, Cranial nerves 3-12 intact - Studies Laboratory Data (last 24 hrs) 08/09/20 14:28: Sodium 139, Potassium 4.0, BUN 5 L, Creatinine 0.65, Glucose 106 08/09/20 14:28: WBC 4.90, Hgb 13.4, Hct 41.2, Plt Count 239 Assessment and Plan - Problems (Diagnosis) (1) Pneumonia due to COVID-19 virus Current Visit: Yes Status: Acute (2) COPD exacerbation Current Visit: Yes Status: Acute (3) Essential hypertension Current Visit: Yes Status: Acute (4) Hypothyroidism (acquired) Current Visit: No Status: Chronic (5) Non-insulin dependent type 2 diabetes mellitus Onset Date: 08/26/16 Current Visit: No Status: Chronic - Plan Place under observation. Start IV Solu-Medrol, vitamin-C and D supplementation common sense supplementation. Will give a dose of Ivermectin. Supplemental oxygen p.r.n. Bronchodilators. Lovenox for DVT prophylaxis. Validate, reconcile and continue other home medications. Insulin sliding scale for glucose management. - Advance Directives Does patient have a Living Will: No Does patient have a Durable POA for Healthcare: No
[2020-08-09] MEDS: INSULIN -REGULAR HUMAN 50 UNIT/0.5 ML ML SQ SCH ×2 (17:52→20:49)
[2020-08-09] MEDS ORDERED: D50W 25 GM/50 ML SYRINGE IV PRN (17:52)
[2020-08-09] MEDS ORDERED: ACETAMINOPHEN 500 MG TAB PO PRN (17:52)
[2020-08-09] MEDS ORDERED: GLUCAGON 1 MG/VIAL IM PRN (17:52)
[2020-08-09] MEDS ORDERED: ALBUTEROL INHALER 60 PUFF/8 GM IH PRN (18:07)
[2020-08-09 18:10] VITALS: BMI 31.4
[2020-08-09] MEDS: FAMOTIDINE 20 MG/2 ML VIAL IV SCH (20:48)
[2020-08-09] MEDS: METHYLPREDNISOLONE 40 MG INJ IV SCH (20:48)
[2020-08-09] MEDS: ASCORBIC ACID 500 MG TABLET PO SCH (20:49)
[2020-08-09] MEDS: DULERA 100/5 (MOMETASONE/FORMOTEROL) INHALER IH SCH (20:54)
[2020-08-10 04:58] LABS: Absolute Lymphocytes (CBC) 0.9 K/uL (0.7-4.9); Basophils % 0.5 % (0-1.3); Hematocrit 41.4 % (36.0-45.0); Lymphocytes % 37.2 % (15.3-44.8); MPV 7.3 fL (7.6-11.3)
[2020-08-10 05:40] LABS: ALT/SGPT 23 U/L (12-78); AST/SGOT 20 U/L (15-37); Alkaline Phosphatase 112 U/L (45-117); BUN Blood Urea Nitrogen 10 mg/dL (7-18); Bicarbonate 28 mmol/L (21-32); Bilirubin Total 0.2 mg/dL (0.2-1.0); Ferritin 95.2 ng/mL (8-388); Glucose Level 175 mg/dL (74-106); HDL Cholesterol 50 mg/dL (40-60); LDL Cholesterol, Calculated 23 (<130); Potassium 3.8 mmol/L (3.5-5.1); Protein, Total 7.7 g/dL (6.4-8.2); Sodium Level 138 mmol/L (136-145)
[2020-08-10] MEDS: INSULIN -REGULAR HUMAN 50 UNIT/0.5 ML ML SQ SCH ×4 (07:30→20:43)
[2020-08-10] MEDS: METHYLPREDNISOLONE 40 MG INJ IV SCH ×2 (07:47→20:42)
[2020-08-10] MEDS: FAMOTIDINE 20 MG/2 ML VIAL IV SCH ×2 (07:47→20:42)
[2020-08-10] MEDS: ASCORBIC ACID 500 MG TABLET PO SCH ×4 (07:47→20:42)
[2020-08-10] MEDS: ENOXAPARIN 40 MG/0.4 ML SQ SCH (07:47)
[2020-08-10] MEDS: VITAMIN D 1000 UNIT TAB PO SCH (07:48)
[2020-08-10] MEDS: ZINC SULFATE 220 MG CAP PO SCH (07:48)
[2020-08-10] MEDS ORDERED: IVERMECTIN 3 MG TABLET PO ONE (09:00)
[2020-08-10] MEDS: DULERA 100/5 (MOMETASONE/FORMOTEROL) INHALER IH SCH ×2 (10:11→20:43)
--- NOTE | 2020-08-10 11:35 | P.PN ---
Subjective Date of Service: 08/10/20 Chief Complaint: Shortness of breath Patient states she feels better. She desaturated percent on room air with ambulation. Physical Examination - Vital Signs Temperature: 96.7 F Blood Pressure: 129/59 Pulse: 72 Respirations: 16 Pulse Ox (%): 96 - Physical Exam General: Alert, In no apparent distress Neck: Supple, JVD not distended Respiratory: Other (Nonlabored breathing) Cardiovascular: No edema, Regular rate/rhythm Gastrointestinal: Soft and benign, Non-distended, No tenderness Musculoskeletal: No swelling Integumentary: No rashes Neurological: Normal strength at 5/5 x4 extr - Studies Laboratory Data (last 24 hrs) 08/09/20 14:28: Sodium 139, Potassium 4.0, BUN 5 L, Creatinine 0.65, Glucose 106 08/09/20 14:28: WBC 4.90, Hgb 13.4, Hct 41.2, Plt Count 239 Assessment And Plan - Current Problems (Diagnosis) (1) Pneumonia due to COVID-19 virus Current Visit: Yes Status: Acute (2) COPD exacerbation Current Visit: Yes Status: Acute (3) Essential hypertension Current Visit: Yes Status: Acute (4) Hypothyroidism (acquired) Current Visit: No Status: Chronic (5) Non-insulin dependent type 2 diabetes mellitus Onset Date: 08/26/16 Current Visit: No Status: Chronic - Plan Continue IV Solu-Medrol, vitamin-C and D supplementation common sense supplementation. Status post Ivermectin. Oxygen by nasal canula. Continue Bronchodilators. Lovenox for DVT prophylaxis. Insulin sliding scale for glucose management. Resume home medications for other chronic medical conditions.
[2020-08-11 04:47] LABS: C-Reactive Protein 27.6 mg/L (<3.00); Ferritin 98.3 ng/mL (8-388)
[2020-08-11 05:23] LABS: Urine Appearance CLEAR; Urine Bilirubin NEGATIVE (NEG); Urine Blood NEGATIVE (Negative); Urine Color YELLOW; Urine Glucose NEGATIVE (Negative); Urine Protein NEGATIVE (NEG); Urine Specific Gravity 1.015 (1.005-1.030); Urine Urobilinogen 0.2 mg/dL (0.2-1.0)
[2020-08-11 05:40] LABS: Urine Microscopic Reflex NO UMIC
[2020-08-11] MEDS: INSULIN -REGULAR HUMAN 50 UNIT/0.5 ML ML SQ SCH ×2 (07:30→11:30)
[2020-08-11 08:21] VITALS: O2SAT 96
[2020-08-11] MEDS: DULERA 100/5 (MOMETASONE/FORMOTEROL) INHALER IH SCH (09:00)
[2020-08-11] MEDS: FAMOTIDINE 20 MG/2 ML VIAL IV SCH (09:00)
[2020-08-11] MEDS: METHYLPREDNISOLONE 40 MG INJ IV SCH (09:00)
[2020-08-11] MEDS ORDERED: ASPIRIN EC 81 MG TAB PO SCH (09:00)
[2020-08-11] MEDS: ASCORBIC ACID 500 MG TABLET PO SCH ×2 (09:00→13:00)
[2020-08-11] MEDS ORDERED: CITALOPRAM 10 MG TABLET PO SCH (09:00)
[2020-08-11] MEDS ORDERED: ursodioL 300 MG CAP PO SCH (09:00)
[2020-08-11] MEDS: VITAMIN D 1000 UNIT TAB PO SCH (09:00)
[2020-08-11] MEDS: ENOXAPARIN 40 MG/0.4 ML SQ SCH (09:00)
[2020-08-11] MEDS ORDERED: HOME MED 1 EA UNK (Biotin [Biotin] 10,000 MCG Capsule) PO SCH (09:00)
[2020-08-11] MEDS ORDERED: LORATADINE 10 MG TAB PO SCH (09:00)
[2020-08-11] MEDS: ZINC SULFATE 220 MG CAP PO SCH (09:00)
[2020-08-11 09:35] VITALS: TEMP 97.6
--- NOTE | 2020-08-11 12:15 | P.DS ---
Admission Date: 08/10/20 Discharge Date: 08/11/20 Disposition: ROUTINE DISCHARGE Discharge Condition: FAIR Reason for Admission: Shortness of breath - Problems (1) Pneumonia due to COVID-19 virus Current Visit: Yes Status: Acute (2) COPD exacerbation Current Visit: Yes Status: Acute (3) Essential hypertension Current Visit: Yes Status: Acute (4) Hypothyroidism (acquired) Current Visit: No Status: Chronic (5) Non-insulin dependent type 2 diabetes mellitus Onset Date: 08/26/16 Current Visit: No Status: Chronic Brief History of Present Illness: 64-year-old womanwith a history of COPD, hypertension, borderline diabetes hypothyroidism presented to the emergency department with a complaint of progressive shortness of breath and nonproductive of 3 days duration. Patient reports shortness of breath at rest, worse with exertion. Chest x-ray done in the emergency department demonstrated bilateral infiltrate. Patient tested positive for COVID 19. Patient was noted to be very dyspneic with exertion. Her oxygen saturation was 91% on room air at rest. CBC and blood chemistry are unremarkable. Patient hospitalized for further monitoring. Hospital Course: Patient admitted to the medical floor. She was treated with IV Solu-Medrol, vitamin-C zinc supplementation. She was given a dose of Ivermectin. She has been stable on 2 L of oxygen by nasal canula. Her oxygen saturation fell to 88 percent on room air during ambulation. Patient qualify for home oxygen. She is prescribed oral prednisone therapy, vitamin supplement any inhalers for outpatient treatment of COVID pneumonia. She has made aware she is supposed to return to the emergency department should her respiratory symptoms get worse and she is needing more oxygen. Vital Signs/Physical Exam: Temp Pulse Resp BP Pulse Ox 97.6 F 66 20 111/54 L 95 08/11/20 08:00 08/11/20 08:00 08/11/20 08:00 08/11/20 08:00 08/11/20 08:00 General: Alert, In no apparent distress, Oriented x3 Neck: JVD not distended Respiratory: Other (Nonlabored breathing.) Cardiovascular: No edema, Regular rate/rhythm Gastrointestinal: Soft and benign Musculoskeletal: No swelling Integumentary: No rashes Neurological: Other (No focal motor deficit.) Laboratory Data at Discharge: WBC 2.30 K/uL (4.3-10.9) L D 08/10/20 04:41 Hgb 13.7 g/dL (12.0-15.0) 08/10/20 04:41 Hct 41.4 % (36.0-45.0) 08/10/20 04:41 Plt Count 256 K/uL (152-406) 08/10/20 04:41 Sodium 138 mmol/L (136-145) 08/10/20 04:41 Potassium 3.8 mmol/L (3.5-5.1) 08/10/20 04:41 BUN 10 mg/dL (7-18) 08/10/20 04:41 Creatinine 0.55 mg/dL (0.55-1.3) 08/10/20 04:41 Glucose 175 mg/dL (74-106) H 08/10/20 04:41 Total Bilirubin 0.2 mg/dL (0.2-1.0) 08/10/20 04:41 AST 20 U/L (15-37) 08/10/20 04:41 ALT 23 U/L (12-78) 08/10/20 04:41 Alkaline Phosphatase 112 U/L (45-117) 08/10/20 04:41 Triglycerides 35 mg/dL (<150) 08/10/20 04:41 Cholesterol 80 mg/dL (<200) 08/10/20 04:41 HDL Cholesterol 50 mg/dL (40-60) 08/10/20 04:41 Cholesterol/HDL Ratio 1.60 08/10/20 04:41 Home Medications: Alirocumab [Praluent Pen] 75 mg DAILY 08/09/20 Aspirin [Aspirin EC 81 MG] 81 mg PO DAILY 08/09/20 Biotin 10,000 mcg DAILY 08/09/20 Citalopram [Celexa*] 40 mg DAILY 08/09/20 Loratadine [Claritin] 5 mg PO DAILY 08/09/20 ursodioL [Ursodiol] 300 mg PO DAILY 08/09/20 Albuterol Inhaler [Ventolin Inhaler*] 2 puff IH Q6H PRN #1 hfa.aer.ad 08/11/20 Ascorbic Acid [Vitamin C*] 2,000 mg PO BID #320 tablet 08/11/20 Cholecalciferol (Vitamin D3) [Vitamin D 1000 Iu Tab*] 4,000 unit PO DAILY #120 tab 08/11/20 Mometasone/Formoterol [Dulera 100 Mcg/5 Mcg Inhaler] 2 puff IH BID #1 inhaler 08/11/20 Zinc Sulfate [Zinc Sulfate*] 220 mg PO DAILY #30 cap 08/11/20 predniSONE [Deltasone] 20 mg PO BID #21 tab 08/11/20 New Medications: Mometasone/Formoterol [Dulera 100 Mcg/5 Mcg Inhaler] 2 puff IH BID #1 inhaler predniSONE [Deltasone] 20 mg PO BID #21 tab Albuterol Inhaler [Ventolin Inhaler*] 2 puff IH Q6H PRN #1 hfa.aer.ad PRN Reason: Shortness Of Breath Ascorbic Acid [Vitamin C*] 2,000 mg PO BID #320 tablet Cholecalciferol (Vitamin D3) [Vitamin D 1000 Iu Tab*] 4,000 unit PO DAILY #120 tab Zinc Sulfate [Zinc Sulfate*] 220 mg PO DAILY #30 cap Diet: AHA Activity: Ad nieves Followup: Gus Easton DO [Primary Care Provider] - 1-2 Weeks Law Perez MD [ACTIVE - CAN ADMIT] - 1 Week Time spent managing pt's care (in minutes): 35
[2020-08-11 13:06] VITALS: BP 126/60
[2020-08-11] MEDS ORDERED: D50W 25 GM/50 ML VIAL IV PRN (15:00)
== END 2020-08-11 15:45 | disposition home or self-care (01) | DRG 177 ==
LOC: ER 12:21 → OBSVTOIN 16:44 → ERHOLD 16:44 → INTOOBSV 16:44 → 4TH 17:13 → OBSVTOIN 08-10 11:29
PROVIDERS: ADMIT Internal Medicine; ATTEND Internal Medicine
DX: U07.1 COVID-19 (principal); J12.82 Pneumonia due to coronavirus disease 2019; J44.1 Chronic obstructive pulmonary disease with (acute) exacerbation; J44.0 Chronic obstructive pulmonary disease with (acute) lower respiratory infection; E11.9 Type 2 diabetes mellitus without complications; E03.9 Hypothyroidism, unspecified; I10 Essential (primary) hypertension; M19.90 Unspecified osteoarthritis, unspecified site; Z88.5 Allergy status to narcotic agent; Z88.8 Allergy status to other drugs, medicaments and biological substances; Z88.1 Allergy status to other antibiotic agents; Z91.041 Radiographic dye allergy status; Z86.73 Personal history of transient ischemic attack (TIA), and cerebral infarction without residual deficits; Z96.651 Presence of right artificial knee joint; Z79.82 Long term (current) use of aspirin; Z79.84 Long term (current) use of oral hypoglycemic drugs; Z79.899 Other long term (current) drug therapy; Z79.890 Hormone replacement therapy; Z90.710 Acquired absence of both cervix and uterus; Z90.49 Acquired absence of other specified parts of digestive tract; Z79.52 Long term (current) use of systemic steroids
CPT/HCPCS: 0240U; 36415; 71045; 80048; 80053; 80061; 81003; 82728; 82947; 84145; 85025; 86140; 94760; 96374; 99285; G0378; J1650; J2920; J2930; J7606

== ENCOUNTER 2020-12-24 10:59 | Emergency (ER) | payer OTHER ==
--- OUTSIDE RECORDS SUMMARY | 2020-12-24 11:16 | XMS REPORT | Continuity of Care Document ---
:1955 Author Organization [facility] t Address [address] [place] [address] Care Team Providers Name Role Phone Rustam ALEJANDRE [facility] Primary Care Physician [phone] RAZA Attending Clinician Unavailable Wade CHAUDHARY Attending Clinician Unavailable Galindo RUSSELL Attending Clinician Wander Quispe Attending Clinician Anamaria Pagan Attending Clinician Fadia Attending Clinician Partha Hair Attending Clinician GEN ROWLEY Attending Clinician Unavailable Lesa Sánchez Attending Clinician Charlene Landaverde Attending Clinician Wander Quispe Admitting Clinician Fadia Admitting Clinician GEN ROWLEY Admitting Clinician Unavailable Lesa Sánchez Admitting Clinician Charlene Landaverde Admitting Clinician Payers Payer Name Policy Type Policy Number Effective Date Expiration Date S ource MEDICARE PART A [id number] 2014 AND B 00:00:00 Problems Condition Condition Condition Status Onset Resolution Last Treating Co mments Source Name Details Category Date Date Treatment Clinician Date UNK Diagnosis Active 2020-11-13 Mem oria 07-07 10:03:00 l UNK 00:00: [place] 00 Active 07/07/2020 [facility] KNEE Diagnosis Active 2019-052020-04-29 Ms moria DJD 06-24 08:18:00 l RT KNEE 00:00: [place] DJD 00 Active 04/23/2020 [facility] [place] CLINIC Diagnosis Active 2020-01-07 Mem oria VISIT 10-30 09:28:00 l CLINIC 00:00: [place] VISIT 00 Active 10/31/2019 [facility] M16.11 Diagnosis Active 2020-01-16 Mem oria 10-22 15:51:00 l M16.11 00:00: [place] 00 Active 2019 [facility] EPIGASTRIC Diagnosis Active 2019-10-31 Memoria PAIN 528 12:59:00 l 00:00: [place] EPIGASTRIC 00 PAIN Active 10/11/2019 [facility] VIRTUAL Diagnosis Active 2019-10-31 Ms moria VISIT- 10-09 12:57:00 l PHONE VIRTUAL 00:00: [place] VISIT VISIT- 00 PHONE VISIT Active 10/10/2019 [facility] PHONE CALL Diagnosis Active 2020-01-23 Memoria - NEW PT 3-31 15:30:00 l VISIT - PHONE 00:00: [place] PANCREATIT CALL - NEW 00 IS PT VISIT - PANCREATIT IS Active [facility] M51.16 - Diagnosis Active 2019-07-12 M emoria INTERVERTE 2-07 09:53:00 l BRAL DISC M51.16 - 00:01: Her horn DISORDERS INTERVERTE 00 BRAL DISC DISORDERS Active 06/22/2019 [facility] SOB SOB Disease Active 2018- [facility] (shortness (shortness 8-08 Chloé kes - of breath) of breath) 00:[facility]: [facility] 00 Center Pneumonia Pneumonia Disease Active 2018[facility] LUMBAR Diagnosis Active 2017-06-09 Mem oria L3-4 1-11 11:26:00 l CYPTIC LUMBAR 00:00: [place] MASS L3-4 00 CYPTIC MASS Active 05/26/2017 [facility] N/A Diagnosis Active 2017-2017-06-03 Mem oria 1-11 09:39:00 l N/A 00:00: [place] 00 Active 05/26/2017 [facility] 723.0 Diagnosis Active 2013-052014-06-10 Mem oria CERVICAL 2-24 09:28:00 l STENOSIS 723.0 00:00: [place] CERVICAL 00 STENOSIS Active 05/08/2014 [facility] 724.5, Diagnosis Active 2013-052014-06-10 Mem oria 723.1, 2-04 09:27:00 l 722.0, 724.5, 00:00: [place] 722.10, 723.1, 00 722.81 722.0, 722.10, 722.81 Active 04/18/2014 [facility] Unilateral Problem 2019-11-02 M emoria primary 22:30:40 l osteoarthr Kiko n itis, Unilateral right hip primary osteoarthr itis, right hip 11/02/2019 [facility] Type 2 Problem 2017-09-15 Memor ia diabetes 16:24:33 l mellitus Type 2 Kiko n with diabetes hyperglyce mellitus nitin with hyperglyce nitin 09/15/2017 [facility] Fibromyalg Problem 2017-09-15 M emoria ia 16:24:33 l [place] Fibromyalg ia 09/15/2017 [facility] Chronic Problem 2017-09-15 Jaylan elvin obstructiv 16:24:33 l e Chronic [place] pulmonary obstructiv disease, e unspecifie pulmonary d disease, unspecifie d 09/15/2017 [facility] Major Problem 2017-09-15 Memor ia depressive 16:24:33 l disorder, Major Kiko n single depressive episode, disorder, unspecifie single d episode, unspecifie d 09/15/2017 [facility] Hypothyroi Problem 2017-09-15 M emoria dism, 16:24:33 l unspecifie Kiko n d Hypothyroi dism, unspecifie d 09/15/2017 [facility] Final: Problem 2014-05-25 Memor ia 11:44:36 l Final: [place] 05/25/2014 [facility] Backache Problem Resolve 2020-10-03 Me moria (finding) d 22:25:09 l Backache Kiko n (finding) Resolved Problem 10/03/2020 [facility], [facility] Chronic Problem Resolve 2020-10-03 Mem oria obstructiv d 22:25:09 l e lung Chronic [place] disease obstructiv (disorder) e lung disease (disorder) Resolved Problem 10/03/2020 [facility], [facility] Neck pain Problem Resolve 2020-10-03 M emoria (finding) d 22:25:09 l Neck [place] pain (finding) Resolved Problem 10/03/2020 [facility], [facility], [facility] Asthma Problem Active 2020-10-03 Memor ia (disorder) 22:25:09 l Asthma [place] (disorder) Active Problem 10/03/2020 [facility], [facility], [facility] Diabetes Problem Active 2020-10-03 Mem oria mellitus 22:25:09 l (disorder) Diabetes He rmann mellitus (disorder) Active Problem 10/03/2020 [facility], [facility], [facility] Sleep Problem Active 2020-10-03 Memor ia apnea 22:25:09 l (finding) Sleep Kiko n apnea (finding) Active Problem 10/03/2020 [facility], [facility], [facility] Thyroid Problem Active 2020-10-03 Jaylan elvin dysfunctio 22:25:09 l n Thyroid [place] (disorder) dysfunctio n (disorder) Active Problem 10/03/2020 hypothryo id [facility], [facility], [facility] Body mass Problem Active 2020-10-03 Me moria index 30+ 22:25:09 l - obesity Body [place] (finding) mass index 30+ - obesity (finding) Active Problem 10/03/2020 [facility] Chronic Problem Active 2020-10-03 Jaylan elvin pancreatit 22:25:09 l is Chronic [place] (disorder) pancreatit is (disorder) Active Problem 10/03/2020 [facility] Depression Problem Active 2020-10-03 M emoria - motion 22:25:09 l (qualifier Kiko n value) Depression - motion (qualifier value) Active Problem 10/03/2020 [facility] Fibromyalg Problem Active 2020-10-03 M emoria ia 22:25:09 l (disorder) Kiko n Fibromyalg ia (disorder) Active Problem 10/03/2020 [facility] Gastroesop Problem Active 2020-10-03 M emoria hageal 22:25:09 l reflux [place] disease Gastroesop (disorder) hageal reflux disease (disorder) Active Problem 10/03/2020 [facility] History of Problem Active 2020-10-03 M emoria - TIA 22:25:09 l (context-d History Her horn ependent of - TIA category) (context-d ependent category) Active Problem 10/03/2020 [facility] Hyperlipid Problem Active 2020-10-03 M emoria emia 22:25:09 l (disorder) Kiko n Hyperlipid emia (disorder) Active Problem 10/03/2020 [facility] Hypothyroi Problem Active 2020-10-03 M emoria dism 22:25:09 l (disorder) [place] n Hypothyroi dism (disorder) Active Problem 10/03/2020 [facility] Mixed Problem Active 2020-10-03 Memor ia anxiety 22:25:09 l and Mixed [place] depressive anxiety disorder and (disorder) depressive disorder (disorder) Active Problem 10/03/2020 [facility] Obsessive- Problem Active 2020-10-03 M emoria compulsive 22:25:09 l disorder [place] (disorder) Obsessive- compulsive disorder (disorder) Active Problem 10/03/2020 [facility] Osteoarthr Problem Active 2020-10-03 M emoria itis 22:25:09 l (disorder) Kiko n Osteoarthr itis (disorder) Active Problem 10/03/2020 [facility] Osteoarthr Problem Active 2020-10-03 M emoria itis of 22:25:09 l knee [place] (disorder) Osteoarthr itis of knee (disorder) Active Problem 10/03/2020 [facility] Osteopenia Problem Active 2020-10-03 M emoria (disorder) 22:25:09 l [place] Osteopenia (disorder) Active Problem 10/03/2020 [facility] Diabetes Problem Active 2020-10-03 Mem oria mellitus 22:25:09 l type 2 Diabetes Kiko n (disorder) mellitus type 2 (disorder) Active Problem 10/03/2020 [facility] UNILATERAL Diagnosis Active 2020-01-16 Memoria PRIMARY 15:51:00 l OSTEOARTHR Kiko n ITIS, UNILATERAL RIGHT PRIMARY OSTEOARTHR ITIS, RIGHT Active [facility] BACKACHE Diagnosis Active 2014-06-10 M emoria NOS 09:27:00 l BACKACHE Kiko n NOS Active [facility] CERVICALGI Diagnosis Active 2014-06-10 Memoria A 09:27:00 l [place] CERVICALGI A Active [facility] CERVICAL Diagnosis Active 2014-06-10 M emoria DISC 09:27:00 l DISPLACMNT CERVICAL He rmann DISC DISPLACMNT Active [facility] CERVICAL Diagnosis Active 2014-06-10 M emoria SPINAL 09:28:00 l STENOSIS CERVICAL Herm kash SPINAL STENOSIS Active [facility] OTHER Diagnosis Active 2017-06-09 Mem oria BURSAL 11:26:00 l CYST, OTHER [place] UNSPECIFIE BURSAL D SITE CYST, UNSPECIFIE D SITE Active [facility] Rheumatic Problem Resolve 1976-0 2020-10-03 2020-10-03 Memoria fever d 05-16 22:25:09 22:25:09 l (disorder) 00:00: K[place] n Rheumatic 00 fever (disorder) Resolved 05/16/1976 Problem 10/03/2020 [facility] History of Past Illness Condition Condition Condition Status Onset Resolution Last Treating Co mments Source Name Details Category Date Date Treatment Clinician Date Other Problem 2017-2017-09-15 2017-09-15 M emoria bursal 06-16 16:24:33 16:24:33 l cyst, Other 04:21: [place] other site bursal 07 cyst, other site 06/16/2017 09/15/2017 [facility] Allergies, Adverse Reactions, Alerts Allergy Allergy Status Severity Reaction(s) Onset Inactive Treating Comm ents Source Name Type Date Date Clinician Ciproflo Propensi Active [facility] xacin ty [...] adverse 00:00: Medical reaction 00 Center s Ciproflo Propensi Active Method i xacin ty to 12-21 adverse 00:00: Hospita reaction 00 l s to drug Codeine Propensi Active Methodi ty to 12-21 adverse 00:00: Hospita reaction 00 l s to drug Iodine Propensi Active Methodi ty to 12-21 adverse 00:00: Hospita reaction 00 l s to drug Levoflox Propensi Active Method i acin ty to 12-21 adverse 00:00: Hospita reaction 00 l s to drug Morphine Propensi Active Method i ty to 12-21 adverse 00:00: Hospita reaction 00 l s to drug Nsaids Propensi Active Other (See Lethargic M ethodi (Non-Alexsander ty to Comments) 12-21 , [facility] roidal adverse 00:00: like Hospita Anti-Inf reaction 00 syptoms l lammator s to y Drug) drug Nabumeto Propensi Active Method i ne ty to 12-21 adverse 00:00: Hospita reaction 00 l s to drug iodine iodine Active 2004-05 Memoria topical topical 0-28 l 00:00: [place] 00 codeine codeine Active 2004-05 Memoria 0-28 l 00:00: [place] 00 morphine morphine Active 2004-05 Memori a 0-28 l 00:00: [place] 00 NSAIDS Adverse Active Info Not [facility] Reaction [facility] MORPHINE Adverse [facility] Info [facility] Iodine Adverse Active Info Not [facility] Reaction Available [facility] topirama topirama Active Memori a te te l Fr[place] Cipro Cipro Active Memoria l [place] Levaquin Levaquin Active Memori a l [place] Relafen Relafen Active Memoria l [place] iodine iodine Active Memoria l [place] NSAIDs NSAIDs Active Memoria l [place] Food Food Active Memoria Nuts<sup Nuts<sup l >1</sup> >1</sup> Kiko n Social History Social Habit Start Date Stop Date Quantity Comments Source Sex Assigned At [facility] Social History 2019-08-03 2019-08-03 [facility] 04:59:59 04:59:59 Smoking Status Start Date Stop Date Source Unknown if ever smoked [facility] Medications Ordered Filled Start Stop Current Ordering Indication Dosage Frequency Signature Comments Components Source Medication Medication Date Date Medication? Clinician (SIG) Name Name Saline No Notes: Memoria Flush 0.9% 5-20 (Same as: l 02:00: BD [place] Posiflush) Saline No Notes: Memoria Flush 0.9% 5-20 (Same as: l 02:00: BD [place] Posiflush) Saline No Notes: Memoria Flush 0.9% 5-19 (Same as: l 15:38: BD [place] Posiflush) Saline No Notes: Memoria Flush 0.9% 5-19 (Same as: l 15:38: BD [place] Posiflush) Enoxaparin No Notes: Memor ia 5-19 (Same as: l 14:31: Lovenox) Enoxaparin No Notes: Memor ia 5-19 (Same as: l 14:31: Lovenox) Acetaminoph Yes 1 tab, PO, Memoria en 325 MG / 5-19 Q4H, PRN l Oxycodone 14:17: Pain Score He rmann Hydrochlori 00 7-10, X 7 de 10 MG day, # 60 Oral Tablet tab, 0 [Percocet Refill(s), 325] given to patient Acetaminoph Yes 1 tab, PO, Memoria en 325 MG / 5-19 Q4H, PRN l Oxycodone 14:17: Pain Score He r[place] Hydrochlori 00 7-10, X 7 de 10 MG day, # 60 Oral Tablet tab, 0 [Percocet Refill(s), 10325] given to patient 0.4 ML Yes 40 mg, Memoria Enoxaparin 5-19 SUB-Q, l sodium 100 14:16: Daily, X Her horn MG/ML 00 10 day, # Prefilled 10 ea, 0 Syringe Refill(s), [Lovenox] given to patient 0.4 ML Yes 40 mg, Memoria Enoxaparin 5-19 SUB-Q, l sodium 100 14:16: Daily, X Her horn MG/ML 00 10 day, # Prefilled 10 ea, 0 Syringe Refill(s), [Lovenox] given to patient Escitalopra No Notes: Jaylan elvin m 5-19 (Same as: l 14:00: Lexapro) Ursodeoxych No Notes: Jaylan elvin olate 5-19 (Same As: l 14:00: Actigall) Escitalopra No Notes: Jaylan elvin m 5-19 (Same as: l 14:00: Lexapro) Ursodeoxych No Notes: Jaylan elvin olate 5-19 (Same As: l 14:00: Actigall) Thyroxine No Notes: Memori a 5-19 Take 1 l 11:30: hour before or 2 hours after meal; Enteral feeds may interefere with the absorption of this medication .(Same as:Levothr oid) Thyroxine No Notes: Memori a 5-19 Take 1 l 11:30: hour [place] 00 before or 2 hours after meal; Enteral feeds may interefere with the absorption of this medication .(Same as:Levothr oid) Vancomycin No 2000 mg: Me moria 5-19 infuse l 01:00: over 2.5 [place] 00 hours For adult patients only: Round to nearest 250 mg per Medical Staff approval MEDICATION WASTE Product Size: 1000 mg Product Wasted: ___ mg Vancomycin No 2000 mg: Me moria 5-19 infuse l 01:00: over 2.5 [place] 00 hours For adult patients only: Round to nearest 250 mg per Medical Staff approval MEDICATION WASTE Product Size: 1000 mg Product Wasted: ___ mg Cefazolin No Notes: Memori a 5-18 (Same As: l 21:00: Ancef, [place] 00 Kefzol) MEDICATION WASTE Product Size: 1000 mg Product Wasted: ___ mg Zofran No Notes: Memoria 5-18 (Same as: l 21:00: Zofran) MEDICATION WASTE Product Size: 4 mg Product Wasted: ___ mg Ketorolac No 4 days. Jaylan elvin 5-18 l 21:00: [place] 00 Cefazolin No Notes: Memori a 5-18 (Same As: l 21:00: Ancef, [place] 00 Kefzol) MEDICATION WASTE Product Size: 1000 mg Product Wasted: ___ mg Zofran No Notes: Memoria 5-18 (Same as: l 21:00: Zofran) MEDICATION WASTE Product Size: 4 mg Product Wasted: ___ mg Ketorolac 2020- No 4 days. Jaylan elvin 5-18 l 21:00: [place] 00 Tylenol No Notes: Do Memor ia 5-18 not exceed l 16:49: 4 gm/day. [place] (Same as: Tylenol) Tylenol No Notes: Do Memor ia 5-18 not exceed l 16:49: 4 gm/day. [place] 00 (Same as: Tylenol) Roxicodone No Notes: Memor ia 5-18 (Same as: l 16:48: Roxicodone ) Roxicodone No Notes: Memor ia 5-18 (Same as: l 16:48: Roxicodone ) Enoxaparin No Notes: Memor ia 5-18 (Same as: l 16:00: Lovenox) Enoxaparin No Notes: Memor ia 5-18 (Same as: l 16:00: Lovenox) Tranexamic No Notes: Memor ia Acid 5-18 (Same As: l 15:38: Cyklokapro n) Zofran No Notes: Memoria 5-18 (Same as: l 15:38: Zofran) MEDICATION WASTE Product Size: 4 mg Product Wasted: ___ mg Acetaminoph No Notes: Jaylan elvin en 325 MG / 5-18 (Same as: l Hydrocodone 15:38: Morganza Carly nn Bitartrate 00 325/5) Do 5 MG Oral not exceed Tablet 4gm/day of [Morganza acetaminop 5/325] hen. Acetaminoph No Notes: Do M emoria en 325 MG / 5-18 not exceed l Hydrocodone 15:38: 4gm/day of [place] Bitartrate 00 acetaminop 10 MG Oral hen. Tablet (Same as: [Morganza Morganza 10/325] 325/10) Acetaminoph No 1 tab, Jaylan elvin en 325 MG / 5-18 Route: PO, l Oxycodone 15:38: Drug Form: He jonaann Hydrochlori 00 TAB, de 10 MG Dosing Oral Tablet Weight [Percocet 78.182, 10/325] kg, Q3H, PRN Pain Score 7-10, Start date: 09/30/20 10:38:00 CDT, Duration: 30 day, Stop date: 10/30/20 10:37:00 CDT Insulin No Notes: Memoria Lispro 5-18 (Same as: l 15:38: Humalog) Roll in palms of hands gently; Do not shake vigorously . WASTE: F/P - Black; E - Municipal Trash Bin Stable for 28 days at room temperatur e. Expires in days from ____Date 05/17 NS 2020- No 1,000 mL, Memori a 1,000 mL 5-18 Rate: 75 l 15:38: ml/hr, Infuse over: 13.3 hr, Route: IV, Dosing Weight 78.182 kg, Total Volume: 1,000, Start date: 09/30/20 10:38:00 CDT, Duration: 30 day, Stop date: 10/30/20 10:37:00 CDT, 1.88, m2, 0 Dextrose No 12.5 gm, Memor ia 50% Syringe 5-18 25 mL, l (D50W) 15:38: Route: IVP, Drug Form: INJ, Dosing Weight 78.182, kg, PRN, PRN Blood Glucose Results, Start date: 09/30/20 10:38:00 CDT, Duration: 30 day, Stop date: 10/30/20 10:37:00 CDT, 0 Glucagon No 1 mg, Memoria 5-18 Route: IM, l 15:38: Drug form: PDR/INJ, PRN, Dosing Weight 78.182, kg, PRN Blood Glucose Results, Start date: 09/30/20 10:38:00 CDT, Duration: 30 day, Stop date: 10/30/20 10:37:00 CDT, 0 Tranexamic No Notes: Memor ia Acid 5-18 (Same As: l 15:38: Cyklokapro n) Zofran No Notes: Memoria 5-18 (Same as: l 15:38: Zofran) MEDICATION WASTE Product Size: 4 mg Product Wasted: ___ mg Acetaminoph No Notes: Jaylan elvin en 325 MG / 5-18 (Same as: l Hydrocodone 15:38: Morganza Carly nn Bitartrate 00 325/5) Do 5 MG Oral not exceed Tablet 4gm/day of [Morganza acetaminop 5/325] hen. Acetaminoph No Notes: Do M emoria en 325 MG / 5-18 not exceed l Hydrocodone 15:38: 4gm/day of [place] Bitartrate 00 acetaminop 10 MG Oral hen. Tablet (Same as: [Morganza Morganza 10/325] 325/10) Acetaminoph No 1 tab, Jaylan elvin en 325 MG / 5-18 Route: PO, l Oxycodone 15:38: Drug Form: He rmann Hydrochlori 00 TAB, de 10 MG Dosing Oral Tablet Weight [Percocet 78.182, 10/325] kg, Q3H, PRN Pain Score 7-10, Start date: 09/30/20 10:38:00 CDT, Duration: 30 day, Stop date: 10/30/20 10:37:00 CDT Insulin No Notes: Memoria Lispro 5-18 (Same as: l 15:38: Humalog) Roll in palms of hands gently; Do not shake vigorously . WASTE: F/P - Black; E - Municipal Trash Bin Stable for 28 days at room temperatur e. Expires in days from ____Date 05/17 NS No 1,000 mL, Memori a 1,000 mL 5-18 Rate: 75 l 15:38: ml/hr, Infuse over: 13.3 hr, Route: IV, Dosing Weight 78.182 kg, Total Volume: 1,000, Start date: 09/30/20 10:38:00 CDT, Duration: 30 day, Stop date: 10/30/20 10:37:00 CDT, 1.88, m2, 0 Dextrose No 12.5 gm, Memor ia 50% Syringe 5-18 25 mL, l (D50W) 15:38: Route: [place] 00 IVP, Drug Form: INJ, Dosing Weight 78.182, kg, PRN, PRN Blood Glucose Results, Start date: 09/30/20 10:38:00 CDT, Duration: 30 day, Stop date: 10/30/20 10:37:00 CDT, 0 Glucagon 2020-0 No 1 mg, Memoria 09-30 Route: IM, l 15:38: Drug form: [place] 00 PDR/INJ, PRN, Dosing Weight 78.182, kg, PRN Blood Glucose Results, Start date: 09/30/20 10:38:00 CDT, Duration: 30 day, Stop date: 10/30/20 10:37:00 CDT, 0 glycopyrrol 2020-0 No Route: IV, Memoria ate (ANES) 09-30 Drug form: l 15:37: INJ, ONCE, Stop date: 09/30/20 10:37:00 CDT neostigmine 2020-0 No Route: IV, Memoria (ANES) 09-30 Drug form: l 15:37: INJ, ONCE, Stop date: 09/30/20 10:37:00 CDT glycopyrrol 2020-0 No Route: IV, Memoria ate (ANES) - Drug form: l 15:37: INJ, ONCE, Stop date: 09/30/20 10:37:00 CDT neostigmine 2020-0 No Route: IV, Memoria (ANES) - Drug form: l 15:37: INJ, ONCE, Stop date: 09/30/20 10:37:00 CDT Hydralazine 2020-0 No 10 mg, Jaylan elvin 09-30 Route: l 15:32: IVP, [place] 00 Q20Min, Dosing Weight 78.182, kg, PRN Elevated BP, Start date: 09/30/20 10:32:00 CDT, Duration: 2 doses or times, Stop date: Limited # of times Labetalol 0 No 10 mg, Memori a 18 Route: l 15:32: IVP, [place] 00 Q5Min, Dosing Weight 78.182, kg, PRN Elevated BP, Start date: 09/30/20 10:32:00 CDT, Duration: 5 doses or times, Stop date: Limited # of times Acetaminoph 2020-0 No 1,000 mg, M emoria en 5-18 Route: PO, l 15:32: Drug form: [place] 00 TAB, ONCE, Dosing Weight 78.182, kg, PRN Pain Score 1-3, Start date: 09/30/20 10:32:00 CDT Fentanyl 2020-0 No 25 Memoria 5-18 microgram, l 15:32: Route: [place] 00 IVP, Q5Min, Dosing Weight 78.182, kg, PRN Pain Score 4-6, Priority: Routine, Start date: 09/30/20 10:32:00 CDT, Duration: 4 doses or times, Stop date: Limited # of times Hydromorpho 2020-0 No 0.5 mg, Mem oria ne 5-18 Route: l 15:32: IVP, [place] 00 Q5Min, Dosing Weight 78.182, kg, PRN Pain Score 7-10, Start date: 09/30/20 10:32:00 CDT, Duration: 4 doses or times, Stop date: Limited # of times Flumazenil 2020-0 No 0.2 mg, Jaylan elvin 5-18 Route: l 15:32: IVP, PRN, Dosing Weight 78.182, kg, PRN Benzodiaze pine Reversal, Initial dose, Start date: 09/30/20 10:32:00 CDT, Duration: 30 day, Stop date: 10/30/20 10:31:00 CDT Naloxone 2020-0 No 0.4 mg, Memori a 5-18 Route: l 15:32: IVP, [place] 00 Q2MIN, Dosing Weight 78.182, kg, PRN Narcotic Reversal, Start date: 09/30/20 10:32:00 CDT, Duration: 8 doses or times, Stop date: Limited # of times Ondansetron 2020-0 No 4 mg, Memor ia 5-18 Route: l 15:32: IVP, ONCE, Dosing Weight 78.182, kg, PRN Nausea & Vomiting, Start date: 09/30/20 10:32:00 CDT Hydralazine 1-0 No 10 mg, Jaylan elvin 5-18 Route: l 15:32: IVP, [place] 00 Q20Min, Dosing Weight 78.182, kg, PRN Elevated BP, Start date: 09/30/20 10:32:00 CDT, Duration: 2 doses or times, Stop date: Limited # of times Labetalol 2020-0 No 10 mg, Memori a 5-18 Route: l 15:32: IVP, [place] 00 Q5Min, Dosing Weight 78.182, kg, PRN Elevated BP, Start date: 09/30/20 10:32:00 CDT, Duration: 5 doses or times, Stop date: Limited # of times Acetaminoph 2020-0 No 1,000 mg, M emoria en 18 Route: PO, l 15:32: Drug form: [place] 00 TAB, ONCE, Dosing Weight 78.182, kg, PRN Pain Score 1-3, Start date: 09/30/20 10:32:00 CDT Fentanyl 2020-0 No 25 Memoria 5-18 microgram, l 15:32: Route: [place] 00 IVP, Q5Min, Dosing Weight 78.182, kg, PRN Pain Score 4-6, Priority: Routine, Start date: 09/30/20 10:32:00 CDT, Duration: 4 doses or times, Stop date: Limited # of times Hydromorpho 2020-0 No 0.5 mg, Mem oria ne 18 Route: l 15:32: IVP, [place] 00 Q5Min, Dosing Weight 78.182, kg, PRN Pain Score 7-10, Start date: 09/30/20 10:32:00 CDT, Duration: 4 doses or times, Stop date: Limited # of times Flumazenil 2020-0 No 0.2 mg, Jaylan elvin 18 Route: l 15:32: IVP, PRN, [place] 00 Dosing Weight 78.182, kg, PRN Benzodiaze pine Reversal, Initial dose, Start date: 09/30/20 10:32:00 CDT, Duration: 30 day, Stop date: 10/30/20 10:31:00 CDT Naloxone 2020-0 No 0.4 mg, Memori a 18 Route: l 15:32: IVP, [place] 00 Q2MIN, Dosing Weight 78.182, kg, PRN Narcotic Reversal, Start date: 09/30/20 10:32:00 CDT, Duration: 8 doses or times, Stop date: Limited # of times Ondansetron No 4 mg, Memor ia 5-18 Route: l 15:32: IVP, ONCE, Dosing Weight 78.182, kg, PRN Nausea & Vomiting, Start date: 09/30/20 10:32:00 CDT ondansetron No Route: IV, Memoria (ANES) 5-18 Drug form: l 15:16: INJ, ONCE, Stop date: 09/30/20 10:16:00 CDT ondansetron No Route: IV, Memoria (ANES) 5-18 Drug form: l 15:16: INJ, ONCE, Stop date: 09/30/20 10:16:00 CDT Lactated No Route: IV, Mem oria Ringers 5-18 Total l Injection 15:12: Volume: Carly nn IV (ANES) 00 300, Start 300 mL date: 09/30/20 10:12:00 CDT, Stop date: 09/30/20 11:12:00 CDT Lactated No Route: IV, Mem oria Ringers 5-18 Total l Injection 15:12: Volume: Carly nn IV (ANES) 00 300, Start 300 mL date: 09/30/20 10:12:00 CDT, Stop date: 09/30/20 11:12:00 CDT phenylephri No Route: IV, Memoria ne (ANES) 5-18 Drug form: l 14:36: INJ, ONCE, Stop date: 09/30/20 9:36:00 CDT phenylephri 0 No Route: IV, Memoria ne (ANES) 5-18 Drug form: l 14:36: INJ, ONCE, Stop date: 09/30/20 9:36:00 CDT midazolam No Route: IV, Me moria (ANES) 5-18 Drug form: l 13:30: SOLN, ONCE, Stop date: 09/30/20 8:30:00 CDT fentaNYL 2020-0 No Route: IV, Mem oria (ANES) 5-18 Drug form: l 13:30: INJ, ONCE, Stop date: 09/30/20 8:30:00 CDT propofol 2020-0 No Route: IV, Mem oria (ANES) 5-18 Drug form: l 13:30: INJ, ONCE, Stop date: 09/30/20 8:30:00 CDT rocuronium 2020-0 No Route: IV, M emoria (ANES) 5-18 Drug form: l 13:30: INJ, ONCE, Stop date: 09/30/20 8:30:00 CDT ceFAZolin 2020-0 No Route: IV, Me moria (ANES) 5-18 Drug form: l 13:30: INJ, ONCE, Stop date: 09/30/20 8:30:00 CDT midazolam 2020-0 No Route: IV, Me moria (ANES) 5-18 Drug form: l 13:30: SOLN, , Stop date: 09/30/20 8:30:00 CDT fentaNYL 2020-0 No Route: IV, Mem oria (ANES) 5-18 Drug form: l 13:30: INJ, ONCE, Stop date: 09/30/20 8:30:00 CDT propofol 2020-0 No Route: IV, Mem oria (ANES) 5-18 Drug form: l 13:30: INJ, ONCE, Stop date: 09/30/20 8:30:00 CDT rocuronium 2020-0 No Route: IV, M emoria (ANES) 5-18 Drug form: l 13:30: INJ, ONCE, Stop date: 09/30/20 8:30:00 CDT ceFAZolin 2020-0 No Route: IV, Me moria (ANES) 5-18 Drug form: l 13:30: INJ, ONCE, Stop date: 09/30/20 8:30:00 CDT vancomycin 2020-0 No Route: IV, M emoria (ANES) 1000 5-18 Drug form: l mg 13:00: INJ, Start date: 09/30/20 8:00:00 CDT, Stop date: 09/30/20 9:00:00 CDT vancomycin 2021-0 No Route: IV, M emoria (ANES) 1000 5-18 Drug form: l mg 13:00: INJ, Start date: 09/30/20 8:00:00 CDT, Stop date: 09/30/20 9:00:00 CDT Lactated 0 No Route: IV, Mem oria Ringers 5-18 Total l Injection 12:57: Volume: Carly nn IV (ANES) 00 1,000, 1000 mL Start date: 09/30/20 7:57:00 CDT, Stop date: 09/30/20 8:57:00 CDT Lactated No Route: IV, Mem oria Ringers 5-18 Total l Injection 12:57: Volume: Carly nn IV (ANES) 00 1,000, 1000 mL Start date: 09/30/20 7:57:00 CDT, Stop date: 09/30/20 8:57:00 CDT Tranexamic No Notes: Memor ia Acid -18 (Same As: l 11:00: Cyklokapro n) celecoxib No 90 Memoria 5-18 mL/min), l 11:00: Start date: 09/30/20 6:00:00 CDT, Duration: 30 day, Stop date: 10/30/20 5:59:00 CDT gabapentin No 300 mg, Jaylan elvin 5-18 Route: PO, l 11:00: HANY Dosing Weight 78.182, kg, Start date: 09/30/20 6:00:00 CDT, Duration: 30 day, Stop date: 10/30/20 5:59:00 CDT ropivacaine 0 No Notes: Memoria 5-18 NOT FOR IV l 11:00: use Ropivacain e 5 mg/mL (49.25 mL) Epinephrin e 1 mg/mL (0.5 mL) Clonidine 0.1 mg/mL (0.8 mL) Ketorolac 30 mg/mL (1 mL) Normal Saline 48.45 mL Oxycontin No 10 mg, Memori a 5-18 Route: PO, l 11:00: Drug form: [place] 00 HANY VALENZUELA, Dosing Weight 78.182, kg, Start date: 09/30/20 6:00:00 CDT, Duration: 30 day, Stop date: 10/30/20 5:59:00 CDT Tylenol No 1,000 mg, Memor ia 5-18 Route: PO, l 11:00: ONC Dosing Weight 78.182, kg, Start date: 09/30/20 6:00:00 CDT, Duration: 30 day, Stop date: 10/30/20 5:59:00 CDT Cefazolin No Notes: Memori a 5-18 (Same As: l 11:00: Raya Kefzol) MEDICATION WASTE Product Size: 1000 mg Product Wasted: ___ mg Vancomycin No 2000 mg: Me moria 5-18 infuse l 11:00: over 2.5 hours For adult patients only: Round to nearest 250 mg per Medical Staff approval MEDICATION WASTE Product Size: 1000 mg Product Wasted: ___ mg Tranexamic No Notes: Memor ia Acid -18 (Same As: l 11:00: Cyklokapro n) celecoxib No 90 Memoria 5-18 mL/min), l 11:00: Start date: 09/30/20 6:00:00 CDT, Duration: 30 day, Stop date: 10/30/20 5:59:00 CDT gabapentin No 300 mg, Jaylan elvin 5-18 Route: PO, l 11:00: HANY Dosing Weight 78.182, kg, Start date: 09/30/20 6:00:00 CDT, Duration: 30 day, Stop date: 10/30/20 5:59:00 CDT ropivacaine No Notes: Memoria 5-18 NOT FOR IV l 11:00: use Ropivacain e 5 mg/mL (49.25 mL) Epinephrin e 1 mg/mL (0.5 mL) Clonidine 0.1 mg/mL (0.8 mL) Ketorolac 30 mg/mL (1 mL) Normal Saline 48.45 mL Oxycontin No 10 mg, Memori a 09-30 Route: PO, l 11:00: Drug form: [place] 00 ERTABHANY, Dosing Weight 78.182, kg, Start date: 09/30/20 6:00:00 CDT, Duration: 30 day, Stop date: 10/30/20 5:59:00 CDT Tylenol No 1,000 mg, Memor ia 09-30 Route: PO, l 11:00: ONCALL, [place] 00 Dosing Weight 78.182, kg, Start date: 09/30/20 6:00:00 CDT, Duration: 30 day, Stop date: 10/30/20 5:59:00 CDT Cefazolin No Notes: Memori a 18 (Same As: l 11:00: Ancef, [place] 00 Kefzol) MEDICATION WASTE Product Size: 1000 mg Product Wasted: ___ mg Vancomycin No 2000 mg: Me moria 18 infuse l 11:00: over 2.5 [place] 00 hours For adult patients only: Round to nearest 250 mg per Medical Staff approval MEDICATION WASTE Product Size: 1000 mg Product Wasted: ___ mg Calcium No 1,000 mL, Memor ia Chloride 18 Rate: 75 l 0.0014 10:53: ml/hr, [place] MEQ/ML / 00 Infuse Potassium over: 13.3 Chloride hr, Route: 0.004 IV, Dosing MEQ/ML / Weight Sodium 78.182 kg, Chloride Total 0.103 Volume: MEQ/ML / 1,000, Sodium Start Lactate date: 0.028 09/30/20 MEQ/ML 5:53:00 Injectable CDT, Solution Duration: 30 day, Stop date: 10/30/20 5:52:00 CDT, 1.88, m2 Calcium 0 No 1,000 mL, Memor ia Chloride 18 Rate: 75 l 0.0014 10:53: ml/hr, [place] MEQ/ML / 00 Infuse Potassium over: 13.3 Chloride hr, Route: 0.004 IV, Dosing MEQ/ML / Weight Sodium 78.182 kg, Chloride Total 0.103 Volume: MEQ/ML / 1,000, Sodium Start Lactate date: 0.028 09/30/20 MEQ/ML 5:53:00 Injectable CDT, Solution Duration: 30 day, Stop date: 10/30/20 5:52:00 CDT, 1.88, m2 biotin 2020-0 Yes PO, Daily, Memor ia 5-06 0 l 14:18: Refill(s) [place] 00 biotin 2020-0 Yes PO, Daily, Memor ia 5-06 0 l 14:18: Refill(s) [place] 00 Oxycodone 2020-0 No 5 mg, Memoria Hydrochlori 3-08 Route: PO, l de 5 MG 14:37: Drug form: Herm kash Oral Tablet 00 TAB, Q4H, Dosing Weight 79.545, kg, PRN Pain Score 4-6, Start date: 07/21/20 8:37:00 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, Duration: 30 day, Stop date: 08/20/20 8:36:00 CDT Oxycodone 2020-0 No 5 mg, Memoria Hydrochlori 3-08 Route: PO, l de 5 MG 14:37: Drug form: Herm kash Oral Tablet 00 TAB, Q4H, Dosing Weight 79.545, kg, PRN Pain Score 4-6, Start date: 07/21/20 8:37:00 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, Duration: 30 day, Stop date: 08/20/20 8:36:00 CDT Labetalol 2020-0 No 10 mg, Memori a 08 Route: l 14:35: IVP, [place] 00 Q5Min, Dosing Weight 79.545, kg, PRN Elevated BP, Start date: 07/21/20 8:35:00 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, Duration: 5 doses or times, Stop date: Limited # of times Acetaminoph 2020-0 No 1,000 mg, M emoria en 308 Route: PO, l 14:35: Drug form: [place] 00 TAB, ONCE, Dosing Weight 79.545, kg, PRN Pain Score 1-3, Start date: 07/21/20 8:35:00 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 Fentanyl 2020-0 No 25 Memoria 3-08 microgram, l 14:35: Route: [place] 00 IVP, Q5Min, Dosing Weight 79.545, kg, PRN Pain Score 4-6, Priority: Routine, Start date: 07/21/20 8:35:00 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, Duration: 4 doses or times, Stop date: Limited # of times Hydromorpho 2021-0 No 0.5 mg, Mem oria ne 3-08 Route: l 14:35: IVP, [place] 00 Q5Min, Dosing Weight 79.545, kg, PRN Pain Score 7-10, Start date: 07/21/20 8:35:00 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, Duration: 4 doses or times, Stop date: Limited # of times Flumazenil 1-0 No 0.2 mg, Jaylan elvin 3-08 Route: l 14:35: IVP, PRN, [place] 00 Dosing Weight 79.545, kg, PRN Benzodiaze pine Reversal, Initial dose, Start date: 07/21/20 8:35:00 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, Duration: 30 day, Stop date: 08/20/20 9:34:00 CDT Naloxone 1-0 No 0.4 mg, Memori a 3-08 Route: l 14:35: IVP, [place] 00 Q2MIN, Dosing Weight 79.545, kg, PRN Narcotic Reversal, Start date: 07/21/20 8:35:00 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, Duration: 8 doses or times, Stop date: Limited # of times Meperidine 1-0 No 12.5 mg, Mem oria 3-08 Route: l 14:35: IVP, [place] 00 Q30Min, Dosing Weight 79.545, kg, PRN Other -See Comment, For shivering, Start date: 07/21/20 8:35:00 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, Duration: 2 doses or times, Stop date: Limited # of times Ondansetron 1-0 No 4 mg, Memor ia 3-08 Route: l 14:35: IVP, ONCE, [place] 00 Dosing Weight 79.545, kg, PRN Nausea & Vomiting, Start date: 07/21/20 8:35:00 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 Labetalol 2021-0 No 10 mg, Memori a 3-08 Route: l 14:35: IVP, [place] 00 Q5Min, Dosing Weight 79.545, kg, PRN Elevated BP, Start date: 07/21/20 8:35:00 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, Duration: 5 doses or times, Stop date: Limited # of times Acetaminoph 2020-0 No 1,000 mg, M emoria en 08 Route: PO, l 14:35: Drug form: [place] 00 TAB, ONCE, Dosing Weight 79.545, kg, PRN Pain Score 1-3, Start date: 07/21/20 8:35:00 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 Fentanyl 2020-0 No 25 Memoria 3-08 microgram, l 14:35: Route: [place] 00 IVP, Q5Min, Dosing Weight 79.545, kg, PRN Pain Score 4-6, Priority: Routine, Start date: 07/21/20 8:35:00 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, Duration: 4 doses or times, Stop date: Limited # of times Hydromorpho 2020-0 No 0.5 mg, Mem oria ne 308 Route: l 14:35: IVP, [place] 00 Q5Min, Dosing Weight 79.545, kg, PRN Pain Score 7-10, Start date: 07/21/20 8:35:00 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, Duration: 4 doses or times, Stop date: Limited # of times Flumazenil 2020-0 No 0.2 mg, Jaylan elvin 08 Route: l 14:35: IVP, PRN, [place] 00 Dosing Weight 79.545, kg, PRN Benzodiaze pine Reversal, Initial dose, Start date: 07/21/20 8:35:00 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, Duration: 30 day, Stop date: 08/20/20 9:34:00 CDT Naloxone 2020-0 No 0.4 mg, Memori a 308 Route: l 14:35: IVP, [place] 00 Q2MIN, Dosing Weight 79.545, kg, PRN Narcotic Reversal, Start date: 07/21/20 8:35:00 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, Duration: 8 doses or times, Stop date: Limited # of times Meperidine 2020-0 No 12.5 mg, Mem oria 3-08 Route: l 14:35: IVP, [place] 00 Q30Min, Dosing Weight 79.545, kg, PRN Other -See Comment, For shivering, Start date: 07/21/20 8:35:00 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, Duration: 2 doses or times, Stop date: Limited # of times Ondansetron 2020-0 No 4 mg, Memor ia 3 Route: l 14:35: IVP, ONCE, Dosing Weight 79.545, kg, PRN Nausea & Vomiting, Start date: 07/21/20 8:35:00 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 midazolam 2020-0 No Route: IV, Me moria (ANES) 3-08 Drug form: l 14:25: SOLN, [place] 00 ONCE, Stop date: 07/21/20 8:25:00 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 lidocaine 2020-0 No Route: IV, Me moria (ANES) 3-08 Drug form: l 14:25: INJ, ONCE, Stop date: 07/21/20 8:25:00 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 fentaNYL 2020-0 No Route: IV, Mem oria (ANES) 3- Drug form: l 14:25: INJ, ONCE, Stop date: 07/21/20 8:25:00 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 propofol 2020-0 No Route: IV, Mem oria (ANES) 3-08 Drug form: l 14:25: INJ, ONCE, Stop date: 07/21/20 8:25:00 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 ondansetron 2020-0 No Route: IV, Memoria (ANES) 3- Drug form: l 14:25: INJ, ONCE, Stop date: 07/21/20 8:25:00 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 midazolam 202-0 No Route: IV, Me moria (ANES) 3-08 Drug form: l 14:25: SOLN, 00 ONCE, Stop date: 07/21/20 8:25:00 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 lidocaine 2020-0 No Route: IV, Me moria (ANES) 3-08 Drug form: l 14:25: INJ, ONCE, Stop date: 07/21/20 8:25:00 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 fentaNYL 2020-0 No Route: IV, Mem oria (ANES) 3-08 Drug form: l 14:25: INJ, ONCE, Stop date: 07/21/20 8:25:00 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 propofol 202-0 No Route: IV, Mem oria (ANES) 3-08 Drug form: l 14:25: INJ, ONCE, Stop date: 07/21/20 8:25:00 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 ondansetron No Route: IV, Memoria (ANES) 3-08 Drug form: l 14:25: INJ, ONCE, Stop date: 07/21/20 8:25:00 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 Lactated 0 No Route: IV, Mem oria Ringers 3-08 Total l Injection 13:49: Volume: Carly nn IV (ANES) 00 1,000, 1000 mL Start date: 07/21/20 7:49:00 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, Stop date: 07/21/20 8:49:00 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 Lactated No Route: IV, Mem oria Ringers 3-08 Total l Injection 13:49: Volume: Carly nn IV (ANES) 00 1,000, 1000 mL Start date: 07/21/20 7:49:00 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, Stop date: 07/21/20 8:49:00 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 Calcium 2020-0 No 1,000 mL, Memor ia Chloride 07-21 Rate: 75 l 0.0014 13:41: ml/hr, [place] MEQ/ML / 00 Infuse Potassium over: 13.3 Chloride hr, Route: 0.004 IV, Dosing MEQ/ML / Weight Sodium 79.545 kg, Chloride Total 0.103 Volume: MEQ/ML / 1,000, Sodium Start Lactate date: 0.028 07/21/20 MEQ/ML 7:41:00 Injectable 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, Solution Duration: 6 hr, Stop date: 07/21/20 13:40:00 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, 1.89, m2, 0 Calcium 2020-0 No 1,000 mL, Memor ia Chloride 3-08 Rate: 75 l 0.0014 13:41: ml/hr, [place] MEQ/ML / 00 Infuse Potassium over: 13.3 Chloride hr, Route: 0.004 IV, Dosing MEQ/ML / Weight Sodium 79.545 kg, Chloride Total 0.103 Volume: MEQ/ML / 1,000, Sodium Start Lactate date: 0.028 07/21/20 MEQ/ML 7:41:00 Injectable 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, Solution Duration: 6 hr, Stop date: 07/21/20 13:40:00 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, 1.89, m2, 0 Claritin 2020-0 Yes Daily, 0 Memor ia 3-01 Refill(s) l 19:07: [place] 00 Claritin 2020-0 Yes Daily, 0 Memor ia 3-01 Refill(s) l 19:07: [place] 00 dexamethaso 2019-05 No Notes: Jaylan elvin ne 2-16 Give with l 15:00: food. [place] 00 (Same As: Decadron) dexamethaso 2019-05 No Notes: Jaylan elvin ne 2-16 Give with l 15:00: food. [place] 00 (Same As: Decadron) Saline 2019-05 No Notes: Memoria Flush 0.9% 2-16 Same as: l 03:00: BD [place] 00 Posiflush Sterile Saline 2019-05 No Notes: Memoria Flush 0.9% 2-16 Same as: l 03:00: BD [place] 00 Posiflush Sterile Saline 2019-05 No Notes: Memoria Flush 0.9% 2-15 Same as: l 17:38: BD [place] 00 Posiflush Sterile Saline 2019-05 No Notes: Memoria Flush 0.9% 2-15 Same as: l 17:38: BD [place] 00 Posiflush Sterile Enoxaparin 2019-05 No Notes: Memor ia 2-15 (Same as: l 16:00: Lovenox) [place] Enoxaparin 2019-05 No Notes: Memor ia 2-15 (Same as: l 16:00: Lovenox) [place] dexamethaso 2019-05 No Notes: Jaylan elvin ne 2-15 Concentrat l 15:00: ion: [place] 00 4mg/ml dexamethaso 2019-05 No Notes: Jaylan elvin ne 2-15 Concentrat l 15:00: ion: [place] 00 4mg/ml Vancomycin 2019-05 No 2000 mg: Me moria 2-15 infuse l 02:00: over 2.5 [place] 00 hours For adult patients only: Round to nearest 250 mg per Medical Staff approval MEDICATION WASTE Product Size: 1000 mg Product Wasted: ___ mg Vancomycin 2019-05 No 2000 mg: Me moria 2-15 infuse l 02:00: over 2.5 [place] 00 hours For adult patients only: Round to nearest 250 mg per Medical Staff approval MEDICATION WASTE Product Size: 1000 mg Product Wasted: ___ mg tranexamic 2019-05 No Notes: Memor ia acid + 2-15 (Same As: l Sodium 00:00: Cyklokapro Carly nn Chloride 00 n) 0.9% IV 100 mL tranexamic 2019-05 No Notes: Memor ia acid + 2-15 (Same As: l Sodium 00:00: Cyklokapro Carly nn Chloride 00 n) 0.9% IV 100 mL Cefazolin 2019-05 No Notes: Memori a 2-14 (Same As: l 22:00: Ancef, [place] 00 Kefzol) MEDICATION WASTE Product Size: 1000 mg Product Wasted: ___ mg Zofran 2019-05 No Notes: Memoria 2-14 (Same as: l 22:00: Zofran) [place] 00 MEDICATION WASTE Product Size: 4 mg Product Wasted: ___ mg Cefazolin 2019-05 No Notes: Memori a 2-14 (Same As: l 22:00: Ancef, [place] 00 Kefzol) MEDICATION WASTE Product Size: 1000 mg Product Wasted: ___ mg Zofran 2019-05 No Notes: Memoria 2-14 (Same as: l 22:00: Zofran) [place] MEDICATION WASTE Product Size: 4 mg Product Wasted: ___ mg dexamethaso 2019-05 No Notes: Jaylan elvin ne 2-14 Give with l 18:00: food. [place] 00 (Same As: Decadron) dexamethaso 2019-05 No Notes: Jaylan elvin ne 2-14 Give with l 18:00: food. [place] (Same As: Decadron) Acetaminoph 2019-05 Yes 1 tab, PO, Memoria en 325 MG / 2-14 Q3H, PRN l Oxycodone 17:40: [facility], 0 de 10 MG Refill(s) [...] Total Volume: 1,000, Start date: 04/28/20 11:38:00 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, Duration: 30 day, Stop date: 05/28/20 11:37:00 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, 1.93, m2, 0 Tranexamic 2019-05 No Notes: Memor ia Acid 2-14 (Same As: l 17:38: Cyklokapro [place] 00 n) Dexamethaso 2019-05 No Notes: Jaylan elvin ne 2-14 Concentrat l 17:38: ion: [place] 00 4mg/ml Zofran 2019-05 No Notes: Memoria 2-14 (Same as: l 17:38: Zofran) [place] 00 MEDICATION WASTE Product Size: 4 mg Product Wasted: ___ mg Acetaminoph 2019-05 No Notes: Jaylan elvin en 325 MG / 2-14 (Same as: l Hydrocodone 17:38: Morganza Carly nn Bitartrate 00 325/5) Do 5 MG Oral not exceed Tablet 4gm/day of [Morganza acetaminop 5/325] hen. Acetaminoph 2019-05 No Notes: Do M emoria en 325 MG / 2-14 not exceed l Hydrocodone 17:38: 4gm/day of [place] Bitartrate 00 acetaminop 10 MG Oral hen. Tablet (Same as: [Morganza Morganza 10/325] 325/10) Acetaminoph 2019-05 No Notes: Do [...] Total Volume: 1,000, Start date: 04/28/20 11:38:00 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, Duration: 30 day, Stop date: 05/28/20 11:37:00 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, 1.93, m2, 0 Tranexamic 2019-05 No Notes: Memor ia Acid 2-14 (Same As: l 17:38: Cyklokapro [place] 00 n) Dexamethaso 2019-05 No Notes: Jaylan elvin ne 2-14 Concentrat l 17:38: ion: [place] 00 4mg/ml Zofran 2019-05 No Notes: Memoria 2-14 (Same as: l 17:38: Zofran) [place] 00 MEDICATION WASTE Product Size: 4 mg Product Wasted: ___ mg Acetaminoph 2019-05 No Notes: Jaylan elvin en 325 MG / 2-14 (Same as: l Hydrocodone 17:38: Morganza Carly nn Bitartrate 00 325/5) Do 5 MG Oral not exceed Tablet 4gm/day of [Morganza acetaminop 5/325] hen. Acetaminoph 2019-05 No Notes: Do M emoria en 325 MG / 2-14 not exceed l Hydrocodone 17:38: 4gm/day of [place] Bitartrate 00 acetaminop 10 MG Oral hen. Tablet (Same as: [Morganza Morganza 10/325] 325/10) Acetaminoph 2019-05 No Notes: Do M emoria en 325 MG / 2-14 not exceed l Oxycodone 17:38: 4gm/day of [place] Hydrochlori 00 acetaminop de 10 MG hen. Oral Tablet (Same as: [Percocet Percocet-1 10/325] 0325) ceFAZolin 2019-05 No Route: IV, Me moria (ANES) 2-14 Drug form: l 16:34: INJ, ONCE, [place] 00 Stop date: 04/28/20 10:34:00 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 phenylephri 2019-05 No Route: IV, Memoria ne (ANES) 2-14 Drug form: l 16:34: INJ, ONCE, [place] 00 Stop date: 04/28/20 10:34:00 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 ceFAZolin 2019-05 No Route: IV, Me moria (ANES) 2-14 Drug form: l 16:34: INJ, ONCE, [place] 00 Stop date: 04/28/20 10:34:00 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 phenylephri 2019-05 No Route: IV, Memoria ne (ANES) 2-14 Drug form: l 16:34: INJ, ONCE, [place] 00 Stop date: 04/28/20 10:34:00 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 ketAMINE 2019-05 No Route: IV, Mem oria (ANES) 2-14 Drug form: l 16:24: INJ, ONCE, [place] 00 Stop date: 04/28/20 10:24:00 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 ketAMINE 2019-05 No Route: IV, Mem oria (ANES) 2-14 Drug form: l 16:24: INJ, ONCE, Stop date: 04/28/20 10:24:00 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 midazolam 2019-05 No Route: IV, Me moria (ANES) 2-14 Drug form: l 16:19: SOLN, [place] 00 ONCE, Stop date: 04/28/20 10:19:00 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 fentaNYL 2019-05 No Route: IV, Mem oria (ANES) 2-14 Drug form: l 16:19: INJ, ONCE, [place] Stop date: 04/28/20 10:19:00 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 midazolam 2020 No Route: IV, Me moria (ANES) 2-14 Drug form: l 16:19: SOLN, [place] 00 ONCE, Stop date: 04/28/20 10:19:00 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 fentaNYL 2020 No Route: IV, Mem oria (ANES) 2-14 Drug form: l 16:19: INJ, ONCE, [place] Stop date: 04/28/20 10:19:00 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 lidocaine 2020 No Route: IV, Me moria (ANES) 2-14 Drug form: l 16:14: INJ, ONCE, Stop date: 04/28/20 10:14:00 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 propofol 2019-05 No Route: IV, Mem oria (ANES) 2-14 Drug form: l 16:14: INJ, ONCE, Stop date: 04/28/20 10:14:00 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 lidocaine 2019-05 No Route: IV, Me moria (ANES) 2-14 Drug form: l 16:14: INJ, ONCE, Stop date: 04/28/20 10:14:00 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 propofol 2019-05 No Route: IV, Mem oria (ANES) 2-14 Drug form: l 16:14: INJ, ONCE, Stop date: 04/28/20 10:14:00 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 propofol 2019-05 No Route: IV, Mem oria (ANES) 10 2-14 Drug form: l mg 15:43: INJ, Start date: 04/28/20 9:43:00 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, Stop date: 04/28/20 10:43:00 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 propofol 2019-05 No Route: IV, Mem oria (ANES) 10 2-14 Drug form: l mg 15:43: INJ, Start date: 04/28/20 9:43:00 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, Stop date: 04/28/20 10:43:00 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 Lactated 2019-05 No Route: IV, Mem oria Ringers 2-14 Total l Injection 15:34: Volume: Carly nn IV (ANES) 00 1,000, 1000 mL Start date: 04/28/20 9:34:00 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, Stop date: 04/28/20 10:34:00 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 Lactated 2019-05 No Route: IV, Mem oria Ringers 2-14 Total l Injection 15:34: Volume: Carly nn IV (ANES) 00 1,000, 1000 mL Start date: 04/28/20 9:34:00 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, Stop date: 04/28/20 10:34:00 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 LR IV 1,000 2019-05 No 1,000 mL, M emoria mL 2-14 Rate: 75 l 14:15: ml/hr, [place] 00 Infuse over: 13.3 hr, Route: IV, Dosing Weight 83.864 kg, Total Volume: 1,000, Start date: 04/28/20 8:15:00 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, Duration: 30 day, Stop date: 05/28/20 8:14:00 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, 1.93, m2, 0 LR IV 1,000 2019-05 No 1,000 mL, M emoria mL 2-14 Rate: 75 l 14:15: ml/hr, Infuse over: 13.3 hr, Route: IV, Dosing Weight 83.864 kg, Total Volume: 1,000, Start date: 04/28/20 8:15:00 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, Duration: 30 day, Stop date: 05/28/20 8:14:00 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, 1.93, m2, 0 celecoxib 2019-05 No Notes: Memori a 2-14 NSAID. l 14:00: Please Frandy 00 check indication . Not for seizure. (Same As: CeleBREX) gabapentin 2019-05 No Notes: Memor ia 2-14 (Same as: l 14:00: Neurontin) ropivacaine 2019-05 No Notes: Jaylan elvin 2-14 NOT FOR l 14:00: IV use Each mL contains: Ropivacain e 2.46 mg, Epinephrin e 0.005 mg, Clonidine 0.0008 mg and Ketorolac 0.3 mg in Sodium Chloride Oxycontin 2019-05 No Notes: Do Mem oria 2-14 not crush l 14:00: or chew. (Same as: OxyContin) Tylenol 2019-05 No Notes: Max Jaylan elvin 2-14 acetaminop l 14:00: hen 4000 mg/day (4 gm/day). (Same as: Tylenol Extra Strength) Tranexamic 2019-05 No Notes: Memor ia Acid 2-14 (Same As: l 14:00: Cyklokapro n) Cefazolin 2019-05 No 2 gm, 50 Jaylan elvin 2-14 mL, Route: l 14:00: IVP, Drug form: INJ, ONCALL, Dosing Weight 83.892, kg, (Patients weighing < 120 kg), Start date: 12/14/20 8:00:00 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, Duration: 1 doses or times, ABX Indication : Surgical Prophylaxi s, 0 Vancomycin 2019-05 No 2000 mg: Me moria 2-14 infuse l 14:00: over 2.5 [place] 00 hours celecoxib 2019-05 No Notes: Memori a 2-14 NSAID. l 14:00: Please Frandy 00 check indication . Not for seizure. (Same As: CeleBREX) gabapentin 2019-05 No Notes: Memor ia 2-14 (Same as: l 14:00: Neurontin) Frandy 00 ropivacaine 2019-05 No Notes: Jaylan elvin 2-14 NOT FOR l 14:00: IV use [place] 00 Each mL contains: Ropivacain e 2.46 [...] Acid 2-14 (Same As: l 14:00: Cyklokapro [place] 00 n) Cefazolin 2019-05 No 2 gm, 50 Jaylan elvin 2-14 mL, Route: l 14:00: IVP, Drug [place] 00 form: INJ, ONCALL, Dosing Weight 83.892, kg, (Patients weighing < 120 kg), Start date: 04/28/20 8:00:00 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, Duration: 1 doses or times, ABX Indication : Surgical Prophylaxi s, 0 Vancomycin 2019-05 No 2000 mg: Me moria 2-14 infuse l 14:00: over 2.5 Frandy 00 hours ropivacaine 2019-05 No 99 ml/hr, M emoria 0.5% 246.25 2-14 Route: l mg + 11:00: intra-PANCHO Frandy EPINEPHrine 00 CULAR, 0.5 mg + ONCALL, cloNIDine Start 80 date: microgram + 04/28/20 Sodium 5:00:00 Chloride 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, Stop 0.9% IV date: 04/28/20 23:59:00 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, 0 vancomycin 2019-05 No Notes: FOR M emoria 2-14 OR USE l 11:00: ONLY [place] 00 polymyxin B 2019-05 No Notes: Jaylan elvin sulfate + 2-14 (Same as: l Sodium 11:00: Polymyxin Kiko n Chloride 00 B Sulfate) 0.9% IV 250 mL ropivacaine 2019-05 No 99 ml/hr, M emoria 0.5% 246.25 214 Route: l mg + 11:00: intra-PANCHO Frandy EPINEPHrine 00 CULAR, 0.5 mg + ONCALL, cloNIDine Start 80 date: microgram + 04/28/20 Sodium 5:00:00 Chloride 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, Stop 0.9% IV date: 04/28/20 23:59:00 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, 0 vancomycin 2019-05 No Notes: FOR Jessica emoria 2-14 OR USE l 11:00: ONLY [...] Sodium 10 2-09 Refill(s) l MG/ML 16:33: [place] Topical 00 Cream levothyroxi 2019-05 Yes 112 [...] capsule # 30 cap, 3 Refill(s) Escitalopra 1 Yes 40 mg, PO, Memoria m 2-09 Daily, 0 l 16:32: Refill(s) Frandy 00 Ketoconazol Ketoconazol 2020- No Gus [address] [facility] 01-14 [facility] - 00:00: 00:00 Memoria 00 :00 l [facility] ursodiol Yes 300 mg = 1 Mem oria 300 mg oral 8-25 cap, PO, l capsule 19:32: BID, # 180 Herm kash 00 cap, 0 Refill(s), Pharmacy: [facility] [id number], 154.94, cm, 10/30/19 23:53:00 CDT, Height, 82.841, kg, 10/30/19 23:53:00 CDT, Weight ursodiol Yes 300 mg = 1 Mem oria 300 mg oral 8-25 cap, PO, l capsule 19:32: BID, # 180 Herm kash 00 cap, 0 Refill(s), Pharmacy: [facility], 154.94, cm, 10/30/19 23:53:00 CDT, Height, 82.841, kg, 10/30/19 23:53:00 CDT, Weight midodrine 5 2019-0 Yes 5 mg = 1 Me moria mg oral 6-17 tab, PO, l tablet 16:11: TID, # 90 Kiko n 00 tab, 0 Refill(s), Pharmacy: [facility] 527, 154.94, cm, 10/30/19 23:53:00 CDT, Height, 82.841, kg, 10/30/19 23:53:00 CDT, Weight midodrine 5 2020-0 Yes 5 mg = 1 Me moria mg oral 6-17 tab, PO, l tablet 16:11: TID, # 90 Kiko n 00 tab, 0 Refill(s), Pharmacy: [facility] 527, 154.94, cm, 10/30/19 23:53:00 CDT, Height, 82.841, kg, 10/30/19 23:53:00 CDT, Weight Acetaminoph 2020-0 No 1 tab, PO, Memoria en 325 MG / 6-17 Q4H, PRN l Hydrocodone 14:01: for pain, H ermann Bitartrate 00 # 60 tab, 10 MG Oral 0 Tablet Refill(s), [Morganza given to ] patient 0.4 ML 2020-0 Yes 40 mg, Memoria Enoxaparin 6-17 SUB-Q, l sodium 100 14:01: Daily, X 9 H ermann MG/ML 00 day, # 9 Prefilled ea, 0 Syringe Refill(s) [Lovenox] Acetaminoph 2020-0 No 1 tab, PO, Memoria en 325 MG / 6-17 Q4H, PRN l Hydrocodone 14:01: for pain, H ermann Bitartrate 00 # 60 tab, 10 MG Oral 0 Tablet Refill(s), [Morganza given to ] patient 0.4 ML 2020-0 Yes 40 mg, Memoria Enoxaparin 6-17 SUB-Q, l sodium 100 14:01: Daily, X 9 H ermann MG/ML 00 day, # 9 Prefilled ea, 0 Syringe Refill(s) [Lovenox] Levothroid 2020-0 No 125 Memoria 6-17 microgram, l 11:30: 1 tab, [place] 00 Route: PO, Drug form: TAB, Q630AM, Dosing Weight 82.727, kg, Start date: 10/31/19 6:30:00 CDT, Duration: 30 day, Stop date: 11/29/19 6:30:00 CDT, 0 Levothroid 2020-0 No 125 Memoria 6-17 microgram, l 11:30: 1 tab, [place] 00 Route: PO, Drug form: TAB, Q630AM, Dosing Weight 82.727, kg, Start date: 10/31/19 6:30:00 CDT, Duration: 30 day, Stop date: 11/29/19 6:30:00 CDT, 0 Vancomycin 2020-0 No 2001 mg: Me moria 6-17 infuse l 07:00: over 2.5 [place] 00 hours For adult patients only: Round to nearest 250 mg per Medical Staff approval MEDICATION WASTE Product Size: 1000 mg Product Wasted: ___ mg Vancomycin 2020-0 No 2001 mg: Me moria 6-17 infuse l 07:00: over 2.5 [place] 00 hours For adult patients only: Round to nearest 250 mg per Medical Staff approval MEDICATION WASTE Product Size: 1000 mg Product Wasted: ___ mg Tylenol 2019-0 No Notes: Max Jaylan elvin 6-17 acetaminop l 02:00: hen 4000 [place] 00 mg/day (4 gm/day). (Same as: Tylenol Extra Strength) Tylenol 2019- No Notes: Max Jaylan elvin 6-17 acetaminop l 02:00: hen 4000 Fr[place] 00 mg/day (4 gm/day). (Same as: Tylenol Extra Strength) Cefazolin 0 No Notes: Memori a 6-17 (Same As: l 00:00: Ancef, Frandy Kefzol) MEDICATION WASTE Product Size: 1000 mg Product Wasted: ___ mg Cefazolin 2019-0 No Notes: Memori a -17 (Same As: l 00:00: Ancef, Frandy Kefzol) MEDICATION WASTE Product Size: 1000 mg Product Wasted: ___ mg Zofran 2019-0 No Notes: Memoria 6-16 (Same as: l 23:00: Zofran) [place] 00 MEDICATION WASTE Product Size: 4 mg Product Wasted: ___ mg Zofran 2019-0 No Notes: Memoria 6-16 (Same as: l 23:00: Zofran) MEDICATION WASTE Product Size: 4 mg Product Wasted: ___ mg Midodrine 2019-0 No Notes: Memori a 6-16 (Same l 22:52: as:Proamat [place] 00 ine) Midodrine 2019-0 No Notes: Memori a 6-16 (Same l 22:52: as:Proamat [place] 00 ine) NS (Bolus) 2019-0 No 250 mL, Jaylan elvin IV -16 250 ml/hr, l 22:51: Infuse [place] 00 Over: 1 hr, Route: IV, 250, Drug form: INJ, ONCE, Priority: STAT, Dosing Weight 82.727 kg, Start date: 10/30/19 17:51:00 CDT, Stop date: 10/30/19 17:51:00 CDT, 0 NS (Bolus) 0 No 250 mL, Jaylan elvin IV -16 250 ml/hr, l 22:51: Infuse [place] 00 Over: 1 hr, Route: IV, 250, Drug form: INJ, ONCE, Priority: STAT, Dosing Weight 82.727 kg, Start date: 10/30/19 17:51:00 CDT, Stop date: 10/30/19 17:51:00 CDT, 0 Tylenol No Notes: Do Memor ia -16 not exceed l 22:36: 4 gm/day. Frandy 00 (Same as: Tylenol) Tylenol No Notes: Do Memor ia 6-16 not exceed l 22:36: 4 gm/day. (Same as: Tylenol) Roxicodone No Notes: Memor ia 6-16 (Same as: l 22:35: Roxicodone ) Roxicodone 0 No Notes: Memor ia 6-16 (Same as: l 22:35: Roxicodone ) Calcium 0 No 1,000 mL, Memor ia Chloride 10-29 Rate: 125 l 0.0014 20:52: ml/hr, [place] MEQ/ML / 00 Infuse Potassium over: 8 Chloride hr, Route: 0.004 IV, Dosing MEQ/ML / Weight Sodium 82.727 kg, Chloride Total 0.103 Volume: MEQ/ML / 1,000, Sodium Start Lactate date: 0.028 10/30/19 MEQ/ML 15:52:00 Injectable CDT, Solution Duration: 30 day, Stop date: 11/29/19 15:51:00 CDT, 1.92, m2 Acetaminoph No 1,000 mg, M emoria en 10-29 Route: l 20:52: IVPB, Drug [place] 00 form: INJ, ONCE, Dosing Weight 82.727, kg, PRN Pain Score 1-3, Start date: 10/30/19 15:52:00 CDT Fentanyl 2020-0 No 25 Memoria 6-16 microgram, l 20:52: Route: [place] 00 IVP, Q5Min, Dosing Weight 82.727, kg, PRN Pain Score 4-6, Priority: Routine, Start date: 10/30/19 15:52:00 CDT, Duration: 4 doses or times, Stop date: Limited # of times Hydromorpho 2020-0 No 0.5 mg, Mem oria ne 6-16 Route: l 20:52: IVP, [place] 00 Q5Min, Dosing Weight 82.727, kg, PRN Pain Score 7-10, Start date: 10/30/19 15:52:00 CDT, Duration: 4 doses or times, Stop date: Limited # of times Flumazenil 2020-0 No 0.2 mg, Jaylan elvin 6-16 Route: l 20:52: IVP, PRN, Frandy 00 [...] Mem oria 6-16 Route: l 20:52: IVP, [place] 00 Q30Min, Dosing Weight 82.727, kg, PRN Other -See Comment, For shivering, Start date: 10/30/19 15:52:00 CDT, Duration: 2 doses or times, Stop date: Limited # of times Ondansetron 2020-0 No 4 mg, Memor ia -16 Route: l 20:52: IVP, ONCE, Dosing Weight 82.727, kg, PRN Nausea & Vomiting, Start date: 10/30/19 15:52:00 CDT Promethazin 2020-0 No 6.25 mg, Me moria e 10-29 Route: l 20:52: IVPB, [place] 00 ONCE, Dosing Weight 82.727, kg, PRN [...] 1-3, Start date: 10/30/19 15:52:00 CDT Fentanyl 2019-0 No 25 Memoria 6-16 microgram, l 20:52: [...] elvin 6-16 Route: l 20:52: IVP, PRN, [place] 00 Dosing Weight 82.727, kg, PRN Benzodiaze pine Reversal, Initial dose, Start date: 10/30/19 15:52:00 CDT, Duration: 30 day, Stop date: 11/29/19 15:51:00 CDT Naloxone 2020-0 No 0.4 mg, Memori a 6- Route: l 20:52: IVP, [place] 00 Q2MIN, Dosing Weight 82.727, kg, PRN Narcotic Reversal, Start date: 10/30/19 15:52:00 CDT, Duration: 8 doses or times, Stop date: Limited # of times Diphenhydra 2020-0 No 12.5 mg, Me moria mine - Route: l 20:52: IVP, Drug form: INJ, Q6H, Dosing Weight 82.727, kg, PRN Itching, Start date: 10/30/19 15:52:00 CDT, Duration: 30 day, Stop date: 11/29/19 15:51:00 CDT Meperidine 2020-0 No 12.5 mg, Mem oria 6-16 Route: l 20:52: IVP, [place] 00 Q30Min, Dosing Weight 82.727, kg, PRN Other -See Comment, For shivering, Start date: 10/30/19 15:52:00 CDT, Duration: 2 doses or times, Stop date: Limited # of times Ondansetron 2020-0 No 4 mg, Memor ia 6-16 Route: l 20:52: IVP, ONCE, Dosing Weight 82.727, kg, PRN Nausea & Vomiting, Start date: 10/30/19 15:52:00 CDT Promethazin No 6.25 mg, Me moria e -16 Route: l 20:52: IVPB, [place] 00 ONCE, Dosing Weight 82.727, kg, PRN Nausea & Vomiting, Start date: 10/30/19 15:52:00 CDT 72 HR No 1 patch, Memoria Scopolamine - Route: l 0.0139 20:52: TOP, Drug Kiko [...] 14:57:00 CDT Insulin No Notes: Memoria Lispro -16 (Same as: l 19:55: Humalog) Roll in palms of hands gently; Do not shake vigorously . WASTE: F/P - Black; E - Municipal Trash Bin Stable for 28 days at room temperatur e. Expires in days from ____Date 05/17 NS No 1,000 mL, Memori a 1,000 mL -16 Rate: 75 l 19:55: ml/hr, Infuse over: 13.3 hr, Route: IV, Dosing Weight 82.727 kg, Total Volume: 1,000, Start date: 10/30/19 14:55:00 CDT, Duration: 30 day, Stop date: 11/29/19 14:54:00 CDT, 1.92, m2, 0 Dextrose 2020-0 No 12.5 gm, Memor ia 50% Syringe 6-16 25 mL, l (D50W) 19:55: Route: [place] 00 IVP, Drug Form: INJ, Dosing Weight 82.727, kg, PRN, PRN Blood Glucose Results, Start date: 10/30/19 14:55:00 CDT, Duration: 30 day, Stop date: 11/29/19 14:54:00 CDT, 0 Glucagon 2020-0 No 1 mg, Memoria 6-16 Route: IM, l 19:55: Drug form: [place] 00 PDR/INJ, PRN, Dosing Weight 82.727, kg, PRN Blood Glucose Results, Start date: 10/30/19 14:55:00 CDT, Duration: 30 day, Stop date: 11/29/19 14:54:00 CDT, 0 Acetaminoph 2019-0 No Notes: Do M emoria en 325 MG / 6-16 not exceed l Hydrocodone 19:55: 4gm/day of Frandy Bitartrate 00 acetaminop 10 MG Oral hen. Tablet (Same as: [Morganza Morganza 10/325] 325/10) Acetaminoph 2019-0 No 1 tab, Jaylan elvin en 325 [...] Acid 6-16 (Same As: l 19:55: Cyklokapro [place] 00 n) Acetaminoph 2020-0 No Notes: Jaylan elvin en 325 MG / 6-16 (Same as: l Hydrocodone 19:55: Morganza Carly nn Bitartrate 00 325/5) Do 5 MG Oral not exceed Tablet 4gm/day of [Morganza acetaminop 5/325] hen. Insulin 2020-0 No Notes: Memoria Lispro 6-16 [...] not exceed l Hydrocodone 19:55: 4gm/day of [place] Bitartrate 00 acetaminop 10 MG Oral hen. Tablet (Same as: [Morganza Morganza 10/325] 325/10) Acetaminoph 2020-0 No 1 tab, [...] Acid 6-16 (Same As: l 19:55: Cyklokapro [place] 00 n) Acetaminoph 2019-0 No Notes: Jaylan elvin en 325 MG / 6-16 (Same as: l Hydrocodone 19:55: Morganza Carly nn Bitartrate 00 325/5) Do 5 MG Oral not exceed Tablet 4gm/day of [Morganza acetaminop 5/325] hen. calcium 2019-0 No Route: IV, Jaylan elvin chloride 6-16 Drug form: l (ANES) 19:41: INJ, ONCE, Carly nn 00 Stop date: 10/30/19 14:41:00 CDT calcium 2020-0 No Route: IV, Jaylan elvin chloride 6-16 Drug form: l (ANES) 19:41: INJ, ONCE, Carly nn 00 Stop date: 10/30/19 14:41:00 CDT Sodium 2020-0 No Route: IV, Memor ia Chloride 6-16 Total l 0.9% IV 19:30: Volume: [place] (ANES) 1000 00 1,000, mL Start date: [...] l 100 mg 18:02: INJ, Start Carly 00 date: 10/30/19 13:02:00 CDT, Stop date: 10/30/19 14:02:00 CDT tranexamic 2020-0 No Route: IV, Jessica emoria acid (ANES) 6-16 Drug form: l 100 mg 18:02: INJ, Start Carly nn 00 date: 10/30/19 13:02:00 CDT, Stop date: 10/30/19 [...] 13:55:00 CDT midazolam 2020-0 No Route: IV, moria (ANES) 6-16 Drug form: l 17:49: Frandy MARIE 00 ONCE, Stop date: 10/30/19 12:49:00 CDT midazolam 2020-0 No Route: IV, moria (ANES) 6-16 Drug form: l 17:49: FRANCESCONFrandy 00 ONCE, Stop date: 10/30/19 12:49:00 CDT [...] 6-16 NOT FOR IV l 15:00: use Ropivacain e 5 mg/mL (49.25 mL) Epinephrin [...] Route: PO, l 14:00: Drug form: [place] 00 ERTAB, ONCALL, Dosing Weight 82.727, kg, Start date: 10/30/19 9:00:00 CDT, Duration: 30 day, Stop date: 11/29/19 8:59:00 CDT Tylenol 2020-0 No 1,000 mg, Memor ia 6-16 Route: PO, l 14:00: Frandy LEACH Dosing Weight 82.727, kg, Start date: 10/30/19 9:00:00 CDT, Duration: 30 day, Stop date: 11/29/19 8:59:00 CDT Cefazolin 2020-0 No Notes: Memori a 6-16 (Same As: l 14:00: Frandy [place] Kefzol) MEDICATION WASTE Product Size: 1000 mg Product Wasted: ___ mg Vancomycin 2020-0 No 2000 mg: Me moria 6-16 infuse l 14:00: over 2.5 [place] 00 hours For adult patients only: Round to nearest 250 mg per Medical Staff approval MEDICATION WASTE Product Size: 1000 mg Product Wasted: ___ mg gabapentin 2020-0 No 300 mg, Jaylan elvin 6-16 Route: PO, l 14:00: ONCALLGurvinder[place] 00 Dosing Weight 82.727, kg, Start date: 10/30/19 9:00:00 CDT, Duration: 30 day, Stop date: 11/29/19 8:59:00 CDT ropivacaine 2020-0 No 100 mL, Mem oria 6-16 Route: l 14:00: InFILtrati [place] 00 on(local), Drug Form: INJ, Dosing Weight 82.727, kg, ONCALL, Start date: 10/30/19 9:00:00 CDT, Duration: 30 day, Stop date: 11/29/19 8:59:00 CDT Oxycontin 2020-0 No 10 mg, Memori a 6-16 Route: PO, l 14:00: Drug form: [place] 00 ERTAB, ONCALL, Dosing Weight 82.727, kg, Start date: 10/30/19 9:00:00 CDT, Duration: 30 day, Stop date: 11/29/19 8:59:00 CDT Tylenol 2020-0 No 1,000 mg, Memor ia -16 Route: PO, l 14:00: ONCGurvinder [place] Dosing Weight 82.727, kg, Start date: 10/30/19 9:00:00 CDT, Duration: 30 day, Stop date: 11/29/19 8:59:00 CDT Cefazolin 2020-0 No Notes: Memori a 6-16 (Same As: l 14:00: AncFrandy [place] 00 Kefzol) MEDICATION WASTE Product Size: 1000 mg Product Wasted: ___ mg Vancomycin 2020-0 No 2000 mg: Me moria 6-16 infuse l 14:00: over 2.5 [place] 00 hours For adult patients only: Round to nearest 250 mg per Medical Staff approval MEDICATION WASTE Product Size: 1000 mg Product Wasted: ___ mg Calcium 2020-0 No 1,000 mL, Memor ia Chloride 6-16 Rate: 75 l 0.0014 13:28: ml/hr, Fr[place] MEQ/ML / 00 Infuse Potassium over: 13.3 Chloride hr, Route: 0.004 IV, Dosing MEQ/ML / Weight Sodium 82.727 kg, Chloride Total 0.103 Volume: MEQ/ML / 1,000, Sodium Start Lactate date: 0.028 06/16/20 MEQ/ML 8:28:00 Injectable CDT, Solution Duration: 30 day, Stop date: 11/29/19 8:27:00 CDT, 1.92, m2 Calcium 2020-0 No 1,000 mL, Memor ia Chloride 6-16 Rate: 75 l 0.0014 13:28: ml/hr, [place] MEQ/ML / 00 Infuse Potassium over: 13.3 Chloride hr, Route: 0.004 IV, Dosing MEQ/ML / Weight Sodium 82.727 kg, Chloride Total 0.103 Volume: MEQ/ML / 1,000, Sodium Start Lactate date: 0.028 16/20 MEQ/ML 8:28:00 Injectable CDT, Solution Duration: 30 day, Stop date: 11/29/19 8:27:00 CDT, 1.92, m2 1 ML 2019-0 Yes See Memoria alirocumab 6-11 Instructio l 75 MG/ML 17:51: ns, SUB-Q, Her horn Auto-Inject 00 0 or Refill(s) [Praluent] 1 ML 2019-0 Yes See Memoria alirocumab 6-11 Instructio l 75 MG/ML 17:51: ns, SUB-Q, Her horn Auto-Inject 00 0 or Refill(s) [Praluent] empaglifloz 2020-0 Yes 10 mg = 1 M emoria in 10 MG 6-11 tab, PO, l Oral Tablet 17:50: QAM, 0 Herm kash [Jardiance] 00 Refill(s) Vitamin D3 2019-0 Yes See Memoria 6-11 Instructio l 17:50: ns, Daily, [place] 00 0 Refill(s) empaglifloz 2020-0 Yes 10 mg = 1 M emoria in 10 MG 6-11 tab, PO, l Oral Tablet 17:50: QAM, 0 Herm kash [Jardiance] 00 Refill(s) Vitamin D3 Yes See Memoria 611 Instructio l 17:50: ns, Daily, [place] 00 0 Refill(s) ursodiol Yes 300 mg = 1 Mem oria 300 mg oral 6-10 cap, PO, l capsule 16:17: BID, # 180 Herm kash 00 cap, 0 Refill(s), Pharmacy: [facility] 527 ursodiol Yes 300 mg = 1 Mem oria 300 mg oral 6-10 cap, PO, l capsule 16:17: BID, # 180 Herm kash 00 cap, 0 Refill(s), Pharmacy: [facility] 527 Smoothie 2019-0 No 450 mL, Memori a Readi-Cat 2 3-19 Susp, l 18:00: Oral, [place] 00 Once, first dose 08/02/19 13:00:00 CDT, stop date 08/02/19 13:00:00 CDT, Out-Patien t Smoothie 0 No 450 mL, Memori a Readi-Cat 2 3-19 Susp, l 18:00: Oral, [place] 00 Once, first dose 08/02/19 13:00:00 CDT, stop date 08/02/19 13:00:00 CDT, Out-Patien t Saline Lock No 10 mL, Jaylan elvin Flush 3-19 Soln, IV l 17:59: Push, As [place] 00 Indicated PRN for flush, first dose 08/02/19 12:59:00 CDT Saline Lock 0 No 10 mL, Jaylan elvin Flush 3-19 Soln, IV l 17:59: Push, As [place] Indicated PRN for flush, first dose 08/02/19 12:59:00 CDT Albuterol Albuterol Yes Gus [address] [facility] Sulfate HFA Sulfate HFA 8-16 [place] [facility] aspirin 81 Yes 81mg QD Take [address] MG chewable 8-10 by mouth [facility] - tablet 16:15: daily. [address] citalopram Yes 40mg QD Take 40 mg [...] MG tablet 00:00: mouth Medical 00 daily. [place] 5 Yes 5mg QD Take 5 [...] 1-25 tab, PO, l Tablet 19:26: Daily, [place] 00 tab, 0 Refill(s) Aspirin 81 Yes 81 mg = 1 Me moria MG Chewable 1-25 tab, PO, l Tablet 19:26: Daily, [place] 00 tab, 0 Refill(s) Docusate Yes 100 [...] Memoria 1-25 (Same as: l 01:51: Benadryl) [place] 00 Dextrose 2018-0 No 12.5 gm, Memor ia 50% Syringe 1-24 25 mL, l 23:01: Route: [place] 00 IVP, Drug Form: INJ, Dosing Weight 85, kg, PRN, PRN Blood Glucose Results, Start date: 06/08/17 17:01:00 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, Duration: 30 day, Stop date: 07/08/17 17:00:00 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 Glucagon 2018-0 No 1 mg, Memoria 1-24 Route: IM, l 23:01: Drug form: [place] 00 PDR/INJ, PRN, Dosing Weight 85, kg, PRN Blood Glucose Results, Start date: 06/08/17 17:01:00 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, Duration: 30 day, Stop date: 07/08/17 17:00:00 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 Insulin 2018-0 No Notes: Memoria Lispro 1-24 (Same as: l 23:01: Humalog ) Roll in palms of hands gently; Do not shake `vigorousl y. "Single Patient Use Only " WASTE: F/P - Black; E - Municipal Trash Bin Stable for 28 days at room temperatur e. Expires in days from ____Date Dextrose 2018-0 No 12.5 gm, Memor ia 50% Syringe -24 25 mL, l 23:01: Route: [place] 00 IVP, Drug Form: INJ, Dosing Weight 85, kg, PRN, PRN Blood Glucose Results, Start date: 06/08/17 17:01:00 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, Duration: 30 day, Stop date: 07/08/17 17:00:00 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 Glucagon 2018-0 No 1 mg, Memoria 1-24 Route: IM, l 23:01: Drug form: [place] 00 PDR/INJ, PRN, Dosing Weight 85, kg, PRN Blood Glucose Results, Start date: 06/08/17 17:01:00 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, Duration: 30 day, Stop date: 07/08/17 17:00:00 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 Insulin 2018-0 No Notes: Memoria Lispro 1-24 (Same as: l 23:01: Humalog ) [place] 00 Roll in palms of hands gently; Do not shake `vigorousl y. "Single Patient Use Only " WASTE: F/P - Black; E - Municipal Trash Bin Stable for 28 days at room temperatur e. Expires in days from ____Date Levalbutero No Notes: Jaylan elvin l 24 Same as l 23:00: Xopenex [place] 00 HFA WASTE: Aerosol - Return to Pharmacy Docusate No Notes: Memoria 24 (Same as: l 23:00: Colace) Fr[place] (Do [...] Memoria 06-08 Route: l 22:00: IVPB, Drug [place] 00 form: INJ, Q8H, Dosing Weight 85.3, kg, Start date: 06/08/17 16:00:00 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, Duration: 1 doses or times, Stop date: 06/08/17 16:00:00 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, ABX Indication : Surgical Prophylaxi s Cefazolin No 1 gm, Memoria 06-08 Route: l 22:00: IVPB, Drug [place] form: INJ, Q8H, Dosing Weight 85.3, kg, Start date: 06/08/17 16:00:00 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, Duration: 1 doses or times, Stop date: 06/08/17 16:00:00 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, ABX Indication : Surgical Prophylaxi s ondansetron 0 No Route: IV, Memoria (ANES) 06-08 Drug form: l 16:04: INJ, ONCE, Stop date: 06/08/17 10:04:00 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 famotidine 2017-0 No Route: IV, M emoria (ANES) 06-08 Drug form: l 16:04: INJ, ONCE, Stop date: 06/08/17 10:04:00 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 neostigmine 2017-0 No Route: IV, Memoria (ANES) 06-08 Drug form: l 16:04: INJ, ONCE, Stop date: 06/08/17 10:04:00 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 glycopyrrol 2017-0 No Route: IV, Memoria ate (ANES) 06-08 Drug form: l 16:04: INJ, ONCE, Stop date: 06/08/17 10:04:00 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 ondansetron 2017-0 No Route: IV, Memoria (ANES) 06-08 Drug form: l 16:04: INJ, ONCE, Stop date: 06/08/17 10:04:00 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 famotidine 2017-0 No Route: IV, M emoria (ANES) 06-08 Drug form: l 16:04: INJ, ONCE, Stop date: 06/08/17 10:04:00 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 neostigmine 2017-0 No Route: IV, Memoria (ANES) 06-08 Drug form: l 16:04: INJ, ONCE, Stop date: 06/08/17 10:04:00 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 glycopyrrol 2017-0 No Route: IV, Memoria ate (ANES) 06-08 Drug form: l 16:04: INJ, ONCE, Stop date: 06/08/17 10:04:00 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 Insulin 2018-0 No Notes: Memoria Lispro 06-08 (Same as: l 16:03: Humalog ) Roll in palms of hands gently; Do not shake `vigorousl y. "Single Patient Use Only " WASTE: F/P - Black; E - Municipal Trash Bin Stable for 28 days at room temperatur e. Expires in days from ____Date Dextrose 2018-0 No 12.5 gm, Memor ia 50% Syringe 1-24 25 mL, l 16:03: Route: [place] 00 IVP, Drug Form: INJ, Dosing Weight 85.3, kg, PRN, PRN Blood Glucose Results, Start date: 06/08/17 10:03:00 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, Duration: 30 day, Stop date: 07/08/17 10:02:00 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 Glucagon 2018-0 No 1 mg, Memoria 24 Route: IM, l 16:03: Drug form: [place] 00 PDR/INJ, PRN, Dosing Weight 85.3, kg, PRN Blood Glucose Results, Start date: 06/08/17 10:03:00 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, Duration: 30 day, Stop date: 07/08/17 10:02:00 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 Insulin 2018-0 No Notes: Memoria Lispro - (Same as: l 16:03: Humalog ) Roll in palms of hands gently; Do not shake `vigorousl y. "Single Patient Use Only " WASTE: F/P - Black; E - Municipal Trash Bin Stable for 28 days at room temperatur e. Expires in days from ____Date Dextrose 2018-0 No 12.5 gm, Memor ia 50% Syringe 24 25 mL, l 16:03: Route: IVP, Drug Form: INJ, Dosing Weight 85.3, kg, PRN, PRN Blood Glucose Results, Start date: 06/08/17 10:03:00 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, Duration: 30 day, Stop date: 07/08/17 10:02:00 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 Glucagon 2018-0 No 1 mg, Memoria 24 Route: IM, l 16:03: Drug form: PDR/INJ, PRN, Dosing Weight 85.3, kg, PRN Blood Glucose Results, Start date: 06/08/17 10:03:00 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, Duration: 30 day, Stop date: 07/08/17 10:02:00 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 Bisacodyl 2018-0 No Notes: Memori a 1-24 (Same As: l 15:59: Dulcolax, [place] 00 Correctol) (Do Not Crush) "Do Not Crush" Dexamethaso No Notes: Jaylan elvin ne 06-08 Concentrat l 15:59: ion: [place] 00 4mg/ml Methocarbam No Notes: Jaylan elvin ol 06-08 (Same l 15:59: as:Robaxin [place] ) Acetaminoph No Notes: Jaylan elvin en 325 MG / 06-08 Same as l Hydrocodone 15:59: Morganza Carly nn Bitartrate 00 325-7.5mg 7.5 MG Oral Do not Tablet exceed [Morganza 4gm/day of 7.5/325] acetaminop hen. Oxycodone No Notes: Memori a Hydrochlori 06-08 (Same as: l de 5 MG 15:59: Roxicodone Herm kash Oral Tablet 00 ) Aluminum No 30 mL, Memoria Hydroxide / 06-08 Route: PO, l magnesium 15:59: Dosing Kiko n carbonate 00 Weight 85.3, kg, Q4H, PRN as needed for indigestio n, Start date: 06/08/17 9:59:00 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 Maalox No Notes: Memoria Advanced 06-08 (aluminum l Regular 15:59: hydroxide- Herm kash Strength 00 magnesium SUSP hyd-simeth icone 200-200-20 mg/5ml 30 ml ud [place]) Zofran No Notes: Memoria 06-08 (Same as: l 15:59: Zofran) [place] MEDICATION WASTE Product Size: 4 mg Product Wasted: ___ mg Meperidine No Notes: Memor ia 06-08 (Same as: l 15:59: Demerol) Fr[place] "Use Precaution in Elderly, Seizure disorders, and Renal impairment " Phenergan No Notes: Do Mem oria 06-08 not give l 15:59: IV push. [place] (Same as: Phenergan) Temazepam No Notes: Memori a -24 (Same As: l 15:59: Restoril) [place] Acetaminoph No Notes: Do M emoria en [...] a 06-08 (Same As: l 15:59: Dulcolax, [place] 00 Correctol) (Do Not Crush) "Do Not Crush" Dexamethaso No Notes: Jaylan elvin ne 06-08 Concentrat l 15:59: ion: [place] 00 4mg/ml Methocarbam No Notes: Jaylan elvin ol 06-08 (Same l 15:59: as:Robaxin [place] ) Acetaminoph No Notes: Jaylan elvin en 325 MG / 06-08 Same as l Hydrocodone 15:59: Morganza Carly nn Bitartrate 00 325-7.5mg 7.5 MG Oral Do not Tablet exceed [[place] 4gm/day of 7.5/325] acetaminop hen. Oxycodone No Notes: Memori a Hydrochlori 06-08 (Same as: l de 5 MG 15:59: Roxicodone Herm kash Oral Tablet 00 ) Aluminum No 30 mL, Memoria Hydroxide / 06-08 Route: PO, l magnesium 15:59: Dosing Kiko n carbonate 00 Weight 85.3, kg, Q4H, PRN as needed for indigestio n, Start date: 06/08/17 9:59:00 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 Maalox No Notes: Memoria Advanced 06-08 (aluminum l Regular 15:59: hydroxide- Herm kash Strength 00 magnesium SUSP hyd-simeth icone 200-200-20 mg/5ml 30 ml ud [place]) Zofran No Notes: Memoria 24 (Same as: l 15:59: Zofran) [place] 00 [...] 06-08 not exceed l 15:59: 4 gm/day. [place] 00 (Same as: Tylenol) 1/2NS + KCL No Notes: Jaylan elvin 20mEq/L 06-08 PREMIX IV l 1000ml 15:59: - Do Not [place] (Premix) 00 Alter 1,000 mL WASTE: F/P [...] Nausea & Vomiting, Start date: 06/08/17 9:52:00 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 Flumazenil No Notes: Memor ia 06-08 (Same [...] Pain Score 7-10, Start date: 06/08/17 9:52:00 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, Duration: 4 doses or times, Stop date: [...] Nausea & Vomiting, Start date: 06/08/17 9:52:00 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 Flumazenil No Notes: Memor ia 06-08 (Same [...] 15:52: 'Roxicodon e) Fentanyl No Notes: Memoria 24 (Same as: l 15:52: Sublimaze) Preservat bao free. Labetalol No Notes: Memori a 06-08 (Same as: l 15:52: Normodyne, Trandate) Push over 2 minutes Give bolus over 2-3 minutes. Hydromorpho No 0.5 mg, Mem oria ne 06-08 0.5 mL, l 15:52: Route: IVP, Drug form: INJ, Q5Min, Dosing Weight 85.3, kg, PRN Pain Score 7-10, Start date: 06/08/17 9:52:00 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, Duration: 4 doses or times, Stop date: Limited # of times Acetaminoph No Notes: Jaylan elvin en 06-08 Infuse l 15:52: over 15 minutes Do not exceed 4gm/day of acetaminop hen MEDICATION WASTE Product Size: 1000 mg Product Wasted: ___ mg dexamethaso No Route: IV, Memoria ne (ANES) 06-08 Drug form: l 15:44: INJ, ONCE, Stop date: 06/08/17 9:44:00 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 dexamethaso No Route: IV, Memoria ne (ANES) 06-08 Drug form: l 15:44: INJ, ONCE, Stop date: 06/08/17 9:44:00 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 hydromorpho No Route: IV, Memoria ne (ANES) 06-08 Drug form: l 15:39: INJ, ONCE, Stop date: 06/08/17 9:39:00 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 lidocaine 0 No Route: IV, Me moria (ANES) 06-08 Drug form: l 15:39: INJ, ONCE, Stop date: 06/08/17 9:39:00 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 hydromorpho No Route: IV, Memoria ne (ANES) 06-08 Drug form: l 15:39: INJ, ONCE, Stop date: 06/08/17 9:39:00 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 lidocaine 0 No Route: IV, Me moria (ANES) 06-08 Drug form: l 15:39: INJ, ONCE, Stop date: 06/08/17 9:39:00 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 rocuronium 2018-0 No Route: IV, M emoria (ANES) - Drug form: l 15:34: INJ, ONCE, [place] 00 Stop date: 06/08/17 9:34:00 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 propofol 2018-0 No Route: IV, Mem oria (ANES) - Drug form: l 15:34: INJ, ONCE, Stop date: 06/08/17 9:34:00 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 fentaNYL 2018-0 No Route: IV, Mem oria (ANES) 06-08 Drug form: l 15:34: INJ, ONCE, Stop date: 06/08/17 9:34:00 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 midazolam 2018-0 No Route: IV, Me moria (ANES) 06-08 Drug form: l 15:34: SOLN, [place] ONCE, Stop date: 06/08/17 9:34:00 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 ceFAZolin 2018-0 No Route: IV, Me moria (ANES) 06-08 Drug form: l 15:34: INJ, ONCE, Stop date: 06/08/17 9:34:00 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 rocuronium 2018-0 No Route: IV, M emoria (ANES) 06-08 Drug form: l 15:34: INJ, ONCE, Stop date: 06/08/17 9:34:00 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 propofol 2018-0 No Route: IV, Mem oria (ANES) - Drug form: l 15:34: INJ, ONCE, Stop date: 06/08/17 9:34:00 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 fentaNYL 2018-0 No Route: IV, Mem oria (ANES) 06-08 Drug form: l 15:34: INJ, ONCE, Stop date: 06/08/17 9:34:00 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 midazolam 2018-0 No Route: IV, Me moria (ANES) 1-24 Drug form: l 15:34: SOLN, ONCE, Stop date: 06/08/17 9:34:00 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 ceFAZolin 2018-0 No Route: IV, Me moria (ANES) -24 Drug form: l 15:34: INJ, ONCE, Frandy 00 Stop date: 06/08/17 9:34:00 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 Isolyte S 2018-0 No Route: IV, Me moria PH 7.4 1-24 Total l (ANES) 1000 14:23: Volume: Her horn mL 00 1,000, Start date: 06/08/17 8:23:00 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, Stop date: 06/08/17 9:23:00 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 Isolyte S No Route: IV, Me moria PH 7.4 1-24 Total l (ANES) 1000 14:23: Volume: Her horn mL 00 1,000, Start date: 06/08/17 8:23:00 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, Stop date: 06/08/17 9:23:00 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 escitalopra Yes 20 mg = 1 M [...] 00 30 tab, 0 Refill(s) Aspirin 325 0 No 325 mg = 1 Memoria MG Enteric 1-17 tab, PO, l Coated 19:38: Daily, # [place] Tablet 00 30 tab, 0 Refill(s) Loratadine [...] Same as: l 100 MG/ML 03:00: Ancef [place] Prefilled 00 Syringe 10 ML No Notes: Memoria Cefazolin 1-08 Same as: l 100 MG/ML 03:00: Ancef [place] Prefilled 00 Syringe Potassium No Notes: Memori a Chloride 1-08 (Same as: l 00:51: K-Dur 20) [place] 00 "Do Not Crush" With food and full glass of water Potassium No Notes: Memori a Chloride 1-08 (Same as: l 00:51: K-Dur 20) [place] 00 "Do Not Crush" With food and full glass of water Docusate No Notes: Memoria 1-07 (Same as: l 23:00: Colace) [place] 00 (Do Not Crush) Docusate No Notes: Memoria 1-07 (Same as: l 23:00: Colace) [place] 00 (Do Not Crush) dexamethaso No Notes: Jaylan elvin ne 1-07 Give with l 22:30: food. [place] 00 (Same As: Decadron) dexamethaso No Notes: Jaylan elvin ne 1-07 Give with l 22:30: food. [place] 00 (Same As: Decadron) 10 ML No 1 gm, Memoria Cefazolin 05-22 Route: l 100 MG/ML 22:00: IVPB, Drug [place] Prefilled 00 form: INJ, Syringe Q8H, Dosing Weight 83.1, kg, Start date: 05/22/14 16:00:00, Duration: 1 doses or times, Stop date: 05/22/14 16:00:00 10 ML No 1 gm, Memoria Cefazolin 1-07 Route: l 100 MG/ML 22:00: IVPB, Drug He r[place] Prefilled 00 form: INJ, Syringe Q8H, Dosing Weight 83.1, kg, Start date: 05/22/14 16:00:00, Duration: 1 doses or times, Stop date: 05/22/14 16:00:00 Insulin, 2014-0 No Notes: Memoria Aspart, - Roll in l Human 19:48: palms of [place] 00 hands gently; Do not shake vigorously . (Same as: NovoLOG) "single patient use only" Stable for 28 days at room temperatur e. Expires in days from ____Date Dextrose No 25 gm, 50 Jaylan elvin 50% Syringe 1-07 mL, Route: l 19:48: IVP, Drug [place] 00 Form: INJ, Dosing Weight 83.1, kg, PRN, PRN Blood Glucose Results, Start date: 05/22/14 13:48:00, Duration: 30 day, Stop date: 06/21/14 13:47:00 Glucagon No 1 mg, Memoria 05-22 Route: IM, l 19:48: Drug form: [place] 00 PDR/INJ, PRN, Dosing Weight 83.1, kg, PRN Blood Glucose Results, Start date: 05/22/14 13:48:00, Duration: 30 day, Stop date: 06/21/14 13:47:00 Insulin, 0 No Notes: Memoria Aspart, - Roll in l Human 19:48: palms of [place] 00 hands gently; Do not shake vigorously . (Same as: NovoLOG) "single patient use only" Stable for 28 days at room temperatur e. Expires in days from ____Date Dextrose 0 No 25 gm, 50 Jaylan elvin 50% Syringe 1-07 mL, Route: l 19:48: IVP, Drug [place] 00 Form: INJ, Dosing Weight 83.1, kg, PRN, PRN Blood Glucose Results, Start date: 05/22/14 13:48:00, Duration: 30 day, Stop date: 06/21/14 13:47:00 Glucagon No 1 mg, Memoria 05-22 Route: IM, l 19:48: Drug form: PDR/INJ, PRN, Dosing Weight 83.1, kg, PRN [...] 05-22 not give l 19:45: IV push. (Same as: Phenergan) Acetaminoph No Notes: Jaylan elvin en 21.7 05-22 Same as l MG/ML / 19:45: Morganza [place] Hydrocodone 00 325-7.5mg Bitartrate Do not 0.5 [...] ne 05-22 Route: l 19:45: IVP, ONCE, [place] 00 Dosing Weight 83.1, kg, Start date: 05/22/14 13:45:00, Stop date: 05/22/14 13:45:00 Temazepam No Notes: Memori a 05-22 (Same As: l 19:45: Restoril) [place] 00 Zofran No Notes: Memoria 05-22 (Same as: l 19:45: Zofran) [place] 00 Meperidine No Notes: Memor ia 05-22 (Same as: l 19:45: Demerol) "Use Precaution in Elderly, Seizure disorders, and Renal impairment " Acetaminoph No Notes: Do M emoria en 05-22 not exceed l 19:45: 4 gm/day. [place] 00 (Same as: Tylenol) Phenergan No Notes: Do Mem oria 05-22 not give l 19:45: IV push. [place] 00 (Same as: Phenergan) Acetaminoph No Notes: Jaylan elvin en 21.7 05-22 Same as l MG/ML / 19:45: Morganza [place] Hydrocodone 00 325-7.5mg Bitartrate Do not [...] ia 05-22 (Same as: l 19:41: Romazicon) [place] 00 Naloxone No Notes: Memoria 05-22 Same as l 19:41: Narcan [place] 00 Fentanyl No Notes: Memoria 05-22 (Same as: l 19:41: Sublimaze) [place] 00 Preservat bao free. Hydromorpho No 0.5 mg, Mem oria ne 05-22 Route: l 19:41: IVP, [place] 00 Q5Min, Dosing Weight 83.1, kg, PRN Pain Score 7-10, Start date: 05/22/14 13:41:00, Duration: 4 doses or times, Stop date: Limited # of times Ondansetron No 4 mg, Memor ia 05-22 Route: l 19:41: IVP, ONCE, [place] 00 Dosing Weight 83.1, kg, PRN Nausea [...] oria ne 05-22 Route: l 19:41: IVP, Q5Min, Dosing Weight 83.1, kg, PRN Pain Score 7-10, Start date: 05/22/14 13:41:00, Duration: 4 doses or times, Stop date: Limited # of times Ondansetron No 4 mg, Memor ia 05-22 Route: l 19:41: IVP, ONCE, Dosing Weight 83.1, kg, PRN Nausea & Vomiting, Start date: 05/22/14 13:41:00 Acetaminoph No 1,000 mg, M crystalria en 05-22 Route: l 19:41: IVPB, Drug [...] Home 2-30 Refill(s) l Medication 16:24: 0 [place] 00 Vitamin D 2013-05 Yes PO, Daily, Me moria 2-30 0 l 16:24: Refill(s) [place] cetirizine 2013-05 Yes PO, Daily, M emoria hydrochlori 2-30 0 l de 10 MG 16:24: Refill(s) Herm kash Oral Tablet 00 [Zyrtec] tramadol 2013-05 No PO, 0 Memoria hydrochlori 2-30 Refill(s) l de 50 MG 16:22: [place] Oral Tablet 00 levothyroxi 2013-05 Yes PO, [...] [facility] Glucometer Glucometer Yes Gus one [facility] Vitamin D Vitamin D Yes Gus not [facility] Jardiance Jardiance Yes Gus [address] [facility] Claritin Claritin Yes Gus [address] [facility] blood blood Yes Gus one [facility] glucose glucose [facility] - test strip test strip [facility] Albuterol Albuterol Yes Gus [address] [facility] [address] Sulfate Sulfate [place] needed [facility] True Metrix True Metrix Yes Gus USE [address] [facility] Blood Blood [place] STRIP TO [facility] - Glucose Glucose CHECK Memoria Test Test GLUCOSE l TWICE Outpat[facility] DAILY ent Clinics Lancets Lancets Yes Gus one [facility] Super Thin Super Thin [place] [facility] Aspir-81 Aspir-81 Yes Gus [address] [facility] Folic Acid Folic Acid Yes Gus TAKE [address] [facility] [facility] TABLET BY [facility] - MOUTH ONCE [facility] DAILY l [facility] ent Clinics Levothyroxi Levothyroxi Yes Gus [address] ne Sodium ne Sodium [place] on an [place] [facility] - empty [facility] stomach in l the Outpat[facility] morning ent Clinics Citalopram Citalopram Yes Gus take one [facility] Hydrobromid Hydrobromid [place] tablet by [facility] - e e mouth once [facility] daily l [facility] Alcohol Alcohol Yes Gus as [facility] Prep Pads Prep Pads [facility] directed [facility] Clinics No known No [facility] Immunizations Ordered Immunization Filled Immunization Date Status Commen ts Source Name Name pneumococcal 2014-05-23 Completed [facility] 23-valent vaccine 17:08:00 [place] pneumococcal 2014-05-23 Completed [facility] 23-valent vaccine 17:08:00 [place] influenza virus 2014-05-23 Completed [facility] vaccine, inactivated 17:07:00 Herm kash influenza virus 2014-05-23 Completed [facility] vaccine, inactivated 17:07:00 Herm kash Vital Signs Vital Name Observation Time Observation Value Comments Source Temperature Oral (F) 2020-10-01 16:18:00 98 F [facility] [place] Heart Rate 2020-10-01 16:18:00 [facility] [place] Systolic (mm Hg) 2020-10-01 16:18:00 Jaylan rial [place] Diastolic (mm Hg) 2020-10-01 16:18:00 Mem orial [place] Temperature Oral (F) 2020-10-01 12:22:00 97.9 F [facility] [place] Heart Rate 2020-10-01 12:22:00 [facility] [place] Systolic (mm Hg) 2020-10-01 12:22:00 Jaylan rial [place] Diastolic (mm Hg) 2020-10-01 12:22:00 Mem orial [place] Respitory Rate 2020-10-01 12:22:00 Memori al [place] Temperature Oral (F) 2020-10-01 09:00:00 97.9 F [facility] [place] Heart Rate 2020-10-01 09:00:00 [facility] [place] Respitory Rate 2020-10-01 09:00:00 Memori al [place] Systolic (mm Hg) 2020-10-01 09:00:00 Jaylan rial [place] Diastolic (mm Hg) 2020-10-01 09:00:00 Mem orial [place] Respitory Rate 2020-10-01 05:00:00 [facility]ori al [place] Height 2020-09-18 14:54:00 157.48 cm [facility] [place] Weight 2020-09-18 14:54:00 [facility] [place] BMI Calculated 2020-09-18 14:54:00 Memori al [place] Respitory Rate 2020-07-21 14:55:00 Memori al [place] Systolic (mm Hg) 2020-07-21 14:55:00 Jaylan rial [place] Diastolic (mm Hg) 2020-07-21 14:55:00 Mem orial [place] Respitory Rate 2020-07-21 14:40:00 Memori al [place] Systolic (mm Hg) 2020-07-21 14:40:00 Jaylan rial [place] Diastolic (mm Hg) 2020-07-21 14:40:00 Mem orial [place] Respitory Rate 2020-07-21 14:25:00 Memori al [place] Systolic (mm Hg) 2020-07-21 14:25:00 Jaylan rial [place] Diastolic (mm Hg) 2020-07-21 14:25:00 Mem orial [place] Height 2020-07-14 18:36:00 157.48 cm [facility] [place] Weight 2020-07-14 18:36:00 [facility] [place] BMI Calculated 2020-07-14 18:36:00 Memori al [place] Respitory Rate 2020-04-28 19:30:00 Memori al [place] Systolic (mm Hg) 2020-04-28 19:30:00 Jaylan rial [place] Diastolic (mm Hg) 2020-04-28 19:30:00 Mem orial [place] Temperature Oral (F) 2020-04-28 19:30:00 97.7 F [facility] [place] Heart Rate 2020-04-28 19:30:00 [facility] [place] Respitory Rate 2020-04-28 19:00:00 Memori al [place] Systolic (mm Hg) 2020-04-28 19:00:00 Jaylan rial [place] Diastolic (mm Hg) 2020-04-28 19:00:00 Mem orial [place] Respitory Rate 2020-04-28 18:45:00 Memori al [place] Systolic (mm Hg) 2020-04-28 18:45:00 Jaylan rial [place] Diastolic (mm Hg) 2020-04-28 18:45:00 Mem orial [place] Weight 2020-04-28 13:52:00 [facility] [place] BMI Calculated 2020-04-28 13:52:00 Memori al [place] Height 2020-04-24 15:50:00 153.92 cm [facility] [place] Weight 2020-04-24 15:50:00 [facility] [place] BMI Calculated 2020-04-24 15:50:00 Memori al [place] Temperature Oral (F) 2020-04-24 15:50:00 98.0 F [facility] [place] Heart Rate 2020-04-24 15:50:00 [facility] [place] Respitory Rate 2020-04-24 15:50:00 Memori al [place] Systolic (mm Hg) 2020-04-24 15:50:00 Jaylan rial [place] Diastolic (mm Hg) 2020-04-24 15:50:00 Mem orial [place] Height 2020-04-23 16:08:00 157.48 cm [facility] [place] Weight 2020-04-23 16:08:00 [facility] [place] BMI Calculated 2020-04-23 16:08:00 Memori al [place] Temperature Oral (F) 2019-10-31 21:00:00 97.9 F [facility] [place] Heart Rate 2019-10-31 21:00:00 [facility] [place] Systolic (mm Hg) 2019-10-31 21:00:00 Jaylan rial [place] Diastolic (mm Hg) 2019-10-31 21:00:00 Mem orial [place] Heart Rate 2019-10-31 18:29:00 [facility] [place] Systolic (mm Hg) 2019-10-31 18:29:00 Jaylan rial [place] Diastolic (mm Hg) 2019-10-31 18:29:00 Mem orial [place] Temperature Oral (F) 2019-10-31 17:00:00 98.1 F [facility] [place] Heart Rate 2019-10-31 17:00:00 [facility] [place] Systolic (mm Hg) 2019-10-31 17:00:00 Jaylan rial [place] Diastolic (mm Hg) 2019-10-31 17:00:00 Mem orial [place] Temperature Oral (F) 2019-10-31 12:00:00 98.3 F [facility] [place] Respitory Rate 2019-10-31 09:15:00 Memori al [place] Respitory Rate 2019-10-31 05:05:00 Memori al [place] Height 2019-10-31 02:00:00 154.94 cm [facility] [place] Weight 2019-10-31 02:00:00 [facility] [place] BMI Calculated 2019-10-31 02:00:00 Memori al [place] Respitory Rate 2019-10-31 01:45:00 Memori al [place] Height 2019-10-25 17:51:00 154.94 cm [facility] [place] Weight 2019-10-25 17:51:00 [facility] [place] BMI Calculated 2019-10-25 17:51:00 Memori al [place] Height 2019-10-25 17:22:00 154.94 cm [facility] [place] Weight 2019-10-25 17:22:00 [facility] [place] BMI Calculated 2019-10-25 17:22:00 Memori al [place] Systolic (mm Hg) 2017-06-09 18:31:00 Jaylan rial [place] Diastolic (mm Hg) 2017-06-09 18:31:00 Mem orial [place] Respitory Rate 2017-06-09 18:31:00 Memori al [place] Heart Rate 2017-06-09 18:31:00 [facility] [place] Temperature Oral (F) 2017-06-09 18:31:00 97.2 F [facility] [place] Temperature Oral (F) 2017-06-09 14:43:00 97.7 F [facility] [place] Heart Rate 2017-06-09 14:43:00 [facility] [place] Systolic (mm Hg) 2017-06-09 14:43:00 Jaylan rial [place] Diastolic (mm Hg) 2017-06-09 14:43:00 Mem orial [place] Respitory Rate 2017-06-09 14:43:00 Memori al [place] Heart Rate 2017-06-09 10:00:00 [facility] [place] Systolic (mm Hg) 2017-06-09 10:00:00 Jaylan rial [place] Diastolic (mm Hg) 2017-06-09 10:00:00 Mem orial [place] Temperature Oral (F) 2017-06-09 10:00:00 97.9 F [facility] [place] Respitory Rate 2017-06-09 10:00:00 [facility] al [place] Weight 2017-06-08 20:58:00 [facility] [place] BMI Calculated 2017-06-08 20:58:00 [facility] al [place] Height 2017-06-08 20:58:00 154.94 cm [facility] [place] Weight 2017-06-03 16:22:00 [facility] [place] BMI Calculated 2017-06-03 16:22:00 Memori al [place] Height 2017-06-03 16:22:00 154.94 cm [facility] [place] Height 2017-06-01 19:29:00 154.94 cm [facility] [place] Weight 2017-06-01 19:29:00 [facility] [place] BMI Calculated 2017-06-01 19:29:00 Memori al [place] Systolic (mm Hg) 2014-05-23 13:45:00 Jaylan rial [place] Respitory Rate 2014-05-23 13:45:00 Memori al [place] Diastolic (mm Hg) 2014-05-23 13:45:00 Mem orial [place] Temperature Oral (F) 2014-05-23 13:45:00 97.5 F [facility] [place] Heart Rate 2014-05-23 13:45:00 [facility] [place] Systolic (mm Hg) 2014-05-23 10:00:00 Jaylan rial [place] Diastolic (mm Hg) 2014-05-23 10:00:00 Mem orial [place] Heart Rate 2014-05-23 10:00:00 [facility] [place] Respitory Rate 2014-05-23 10:00:00 Memori al [place] Temperature Oral (F) 2014-05-23 10:00:00 98.0 F [facility] [place] Temperature Oral (F) 2014-05-23 06:00:00 98.0 F [facility] [place] Systolic (mm Hg) 2014-05-23 06:00:00 Jaylan rial [place] Respitory Rate 2014-05-23 06:00:00 Memori al [place] Heart Rate 2014-05-23 06:00:00 [facility] [place] Diastolic (mm Hg) 2014-05-23 06:00:00 Mem orial [place] BMI Calculated 2014-05-14 16:50:00 Memori al [place] Weight 2014-05-14 16:50:00 [facility] [place] Height 2014-05-14 16:50:00 157.48 cm [facility] [place] Weight 2014-05-14 16:30:00 [facility] [place] Height 2014-05-14 16:30:00 157.48 cm [facility] [place] BMI Calculated 2014-05-14 16:30:00 Memori al [place] Diastolic (mm Hg) 2014-04-22 18:30:00 Mem orial [place] Respitory Rate 2014-04-22 18:30:00 Memori al [place] Systolic (mm Hg) 2014-04-22 18:30:00 Jaylan rial [place] Systolic (mm Hg) 2014-04-22 18:00:00 Jaylan rial [place] Respitory Rate 2014-04-22 18:00:00 Memori al [place] Diastolic (mm Hg) 2014-04-22 18:00:00 Mem orial [place] Systolic (mm Hg) 2014-04-22 17:45:00 Jaylan rial [place] Diastolic (mm Hg) 2014-04-22 17:45:00 Mem orial [place] Respitory Rate 2014-04-22 17:45:00 Memori al [place] Heart Rate 2014-04-22 16:23:00 [facility] [place] Procedures Procedure Date / Time Performing Clinician Source Performed Procedure<sup>7</sup> [facility] ermann Carpal tunnel [facility] [place] release<sup>1</sup> Cataract [facility] [place] surgery<sup>2</sup> Cholecystectomy [facility] [place] Elbow joint [facility] [place] operations<sup>3</sup> Foot [facility] [place] fasciectomy<sup>4</sup> Foot joint [facility] [place] operations<sup>5</sup> Hysterectomy [facility] Franyd Knee joint [facility] [place] operation<sup>6</sup> Christine fundoplication [facility] ermann Plantar fasciotomy [facility] Herm [facility] [place] operations<sup>7</sup> Cervical spinal fusion by Negro diehl [place] anterior technique Plan of Care Planned Activity Planned Date Details Comments Source Future Scheduled 2020-01-15 INFLUENZA VACCINE (#1[facility] [code = INFLUENZA Medical Ce nter VACCINE (#1)] Future Scheduled 2015-02-[address] [facility] 00:00:00 WELLNESS (YEAR 2 or Medical Center FIRST YEAR if no IPPE) [code = MEDICARE ANNUAL WELLNESS (YEAR 2 or FIRST YEAR if no IPPE)] Future Scheduled [address] [facility] 00:[facility]00 (procedure) [code = Medical Center 04578603] Future Scheduled [address] [facility] Test 00:00:00 malignant neoplasm of [facility] cervix (procedure) [code = 258579778] Future Scheduled [address] [facility] - Test 00:00:00 0-64 YRS (1 of 3 - Medical C enter PCV13) [code = PNEUMOCOCCAL VACCINE 0-64 YRS (1 of 3 - PCV13)] Future Scheduled [address] [facility] [facility] - Test 00:00:00 malignant neoplasm of [facility] breast (procedure) [code = 811318809] Future Scheduled [address] [facility] - Test 00:00:00 malignant neoplasm of [facility] colon (procedure) [code = 108466308] Future Scheduled DIABETES: RETINAL EYE [facility] EX[facility] [code = DIABETES: RETINAL EYE EXAM] Future Scheduled DIABETIC FOOT EXAM [facility] [code = DIABETIC FOOT EXAM] Future Scheduled URINE MICROALBUMIN [facility] [code = URINE MICROALBUMIN] Future Scheduled COVID-19 [facility]ACCINE (1) [facility] [code = COVID-19 VACCINE (1)] Future Scheduled Hepatitis C screening [facility] Test (procedure) [code = 069873851] Future Scheduled Screening for [facility] Test malignant neoplasm of cervix (procedure) [code = 840319482] Future Scheduled BREAST CANCER [facility] Test SCREENING [code = BREAST CANCER SCREENING] Future Scheduled COLONOSCOPY [facility]CRE[facility]ING [facility] [code = COLONOSCOPY SCREENING] Future Scheduled SH[facility]LES [facility]INES (#[facility] [code = SHINGLES VACCINES (#1)] Future Scheduled [facility] [code = INFLUENZA VACCINE] Encounters Start End Encounter Admission Attending Care Care Encounter Source Date/Time Date/Time Type Type Clinicians Facility Department ID 2020-11-13 Outpatient [facility] [id number] [place] 09:44:37 [facility] 2020-11-13 Outpatient [facility] [id number] [place] 09:15:45 Health 2020-11-13 Outpatient [facility] [id number] [place] 09:15:44 Health 2020-10-31 Outpatient RAZA, [facility] [id number] [place] 01:03:36 [facility] 2020 Outpatient RAZA, [facility] [id number] [place] 09:56:08 [facility] 2020-10-16 Outpatient RAZA, [facility] [id number] [place] 10:09:49 [facility] 2020-09-26 Outpatient RAZA, [facility] [id number] [place] 15:09:20 [facility] 2020-09-20 Outpatient RAZA, [facility] [id number] [place] 02:48:09 [facility] 2020-08-11 Inpatient [id number] MH 11:23:40 [facility] 2019-10-24 Inpatient [id number] MH 08:08:22 [facility] 2019-09-03 Outpatient [facility] [id number] MH [facility] 10:11:05 2020-12-05 2020-12-05 [id number] 2020-11-25 2020-11-25 [facility] [id number] [facility] 2020-11-13 2020-11-13 Office JODI Quispe [facility] [id number] 08:47:21 09:45:10 Visit Chon ARONA [id number] MEDICAL [id number] [place] 8 [id number] 2020-11-04 2020-11-04 Refill Wade [facility] [id number] 00:00:00 00:00:00 [facility] [id number] MEDICAL [id number] [place] 7 [id number] 2020-10-242020-10-24 Office Galindo [facility] [id number] 10:34:37 11:56:05 Visit Emma Tim [id number] [place] [id number] Profsurekha [id number] nal [address] Building 2020 2020 Office Raza [facility] [id number] 09:19:32 10:33:13 Visit Chon MANDUJANO [id number] MEDICAL [id number] [place] 7 [id number] 2020 2020 Telephone Raza [facility] [id number] 00:00:00 00:00:00 Chon MANDUJANO [id number] MEDICAL [id number] [place] 2 [id number] 2020 2020 Refill Raza [facility] [id number] 00:00:00 00:00:00 Chon MANDUJANO [id number] MEDICAL [id number] [place] 5 [id number] 2020-10-22 2020-10-22 [facility] [id number] [facility] [address] 00:00:00 00:00:00 [facility] 2020-10-17 2020-10-17 Refill JODI Olvera [facility] [id number] 00:00:00 00:00:00 [facility] [id number] MEDICAL [id number] [place] 6 [id number] 2020-10-16 2020-10-16 Refill Wade [facility] [id number] 00:00:00 00:00:00 Gayle [facility] [id number] MEDICAL [id number] PLA[place] 3 [id number] 2020-09-30 2020-10-01 [id number] 15:38:00 20:45:00 n sheree Wise [address] [facility] 2020-09-30 2020-10-01 Observatio nullFlavo [facility] [id number] Memoria 15:38:00 20:45:00 n sheree Wise [address] [facility] 2020-09-30 2020-10-01 Outpatient Raza, MHSE MHSE [id number] 10:38:00 15:45:00 Chon Viramontes 12 2020-09-30 2020-10-01 Outpatient Raza, MHSE MHSE [id number] 10:38:00 15:45:00 Chon Viramontes 12 2020-09-30 2020-09-30 Outpatient MHSE MHSE [id number] MH 10:38:00 10:38:00 [facility] 2020-09-30 2020-09-30 Outpatient Raza, MHSE MHSE [id number] 07:30:00 07:30:00 Chon Viramontes 12 2020-09-30 2020-09-30 Outpatient Raza, MHSE MHSE [id number] 07:30:00 07:30:00 Chon Viramontes 12 2020-09-23 2020-09-23 Outpatient STLMLC STLMLC [id number] [facility] 2020-09-08 2020-09-08 Outpatient STLMLC [facility]ML[facility] [id number] [facility] 2020-08-29 2020-08-29 Outpatient [facility] [id number] [facility] 2020-08-26 2020-08-26 Outpatient [facility] [id number] [facility] 2020-08-26 2020-08-26 Outpatient [facility] [id number] [facility] 2020-08-20 2020-08-20 Outpatient [facility] [id number] [facility] 2020-08-13 2020-08-13 [facility] [id number] [facility] 2020-08-12 2020-08-12 [facility] [id number] [facility] 2020-07-21 2020-07-21 Day nullFlavo [facility] [id number] [facility] 11:27:00 15:00:00 Surgery r [place] [facility] 2020-07-21 2020-07-21 Day nullFlavo [facility] [id number] Memoria 11:27:00 15:00:00 Surgery r [place] 10 [facility] 2020-07-21 2020-07-21 Outpatient Raza, MHSE MHSE [id number] 11:00:00 11:00:00 Chon Viramontes 10 2020-07-21 2020-07-21 Outpatient Quispe, MHSE MHSE [id number] 11:00:00 11:00:00 Chon Viramontes 10 2020-07-21 2020-07-21 Outpatient Raza, MHSE MHSE [id number] 05:27:00 09:00:00 Chon Viramontes 10 2020-07-21 2020-07-21 Outpatient Raza, MHSE MHSE [id number] 05:27:00 09:00:00 Chon Viramontes 10 2020-07-21 2020-07-21 Outpatient MHSE MHSE [id number] MH 05:27:00 05:27:[address] [facility] 2020-06-11 2020-06-11 [facility] [id number] [facility] 2020-05-27 2020-05-27 [facility] [id number] [facility] 2020-04-28 2020-04-28 Bedded nullFlavo [facility] [id number] [facility] 13:36:00 22:19:00 Outpatient r [place] 09 l [facility] 2020-04-28 2020-04-28 Bedded nullFlavo [facility] [id number] [facility] 13:36:00 22:19:00 Outpatient r [place] 09 l [facility] 2020-04-28 2020-04-28 Outpatient Raza [facility] [id number] 07:36:00 16:19:00 Chon Viramontes 09 2020-04-28 2020-04-28 Outpatient Raza [facility] [id number] 07:36:00 16:19:00 Chon Viramontes 09 2020-04-28 2020-04-28 Outpatient Raza [facility] [id number] 09:30:00 09:30:00 Chon Viramontes 09 2020-04-28 2020-04-28 Outpatient Raza [facility] [id number] 09:30:00 09:30:00 Chon Viramontes 09 2020-04-28 2020-04-28 Outpatient [facility] [id number] 07:36:00 07:36:00 [facility] 2020-04-15 2020-04-15 Outpatient [facility] [id number] [facility] 2020-02-20 2020-02-20 Outpatient [facility] [id number] [facility] 2020-02-11 2020-02-11 Outpatient [facility] [id number] [facility] 2020-01-29 2020-01-29 [facility] [id number] [facility] 15:03:00 15:03:00 t [employer] [facility] l Medicine Outpati ent Clinics 2020-01-15 2020-01-15 [facility] [id number] 09:30:00 09:30:00 t [employer] [facility] Medicine Outpati ent Clinics 2020-01-07 2020-01-08 Outpatient nullFlavo [facility] [id number] [facility] 14:26:00 04:59:00 r Disease 08 l [facility] 2020-01-07 2020-01-08 Outpatient nullFlavo Digest[facility] [id number] [facility] 14:26:00 04:59:00 r Disease 08 l [facility] 2020-01-07 2020-01-07 Outpatient nay [facility] [id number] 09:26:00 23:59:00 Kwadwo Nicolle AmbrocioCorwin bhai 2020-01-07 2020-01-07 Outpatient Mercedez [facility] [id number] 09:26:00 23:59:00 Kwadwo Nicolle Corwin bhai 2020-01-01 2020-01-01 [facility] [id number] [facility] 12:07:00 12:07:[address] [employer] [facility] Medicine Outpati ent Clinics 2019-12-07 2019-12-07 [facility] [id number] 14:05:00 14:05:[address] [employer] [facility] Medicine Outpati ent Clinics 2019-11-27 2019-11-27 [facility] [id number] 14:03:00 14:03:[address] [employer] [facility] Medicine Outpati ent Clinics 2019-11-27 2019-11-27 [facility] [id number] 13:59:00 13:59:[address] [employer] [facility] Medicine Outpati ent Clinics 2019-11-24 2019-11-24 [facility] [id number] 10:12:00 10:12:[address] [employer] [facility] Medicine Outpati ent Clinics 2019-11-20 2019-11-20 [facility] [id number] 17:23:00 17:23:[address] [employer] [facility] Medicine Outpati ent Clinics 2019-11-20 2019-11-20 [facility] [id number] 14:15:00 14:15:[address] [place] [address] [facility] Medicine Medicine Outpati ent Clinics 2019-10-30 2019-10-31 Inpatient nullFlavo [facility] [id number] [facility]oria 10:24:00 22:23:00 r Frandy Caridad l [facility] 2019-10-30 2019-10-31 Inpatient nullFlavo [facility] [id number] Memoria 10:24:00 22:23:00 r Frandy [address]idad [facility] [facility] 2019-10-30 2019-10-31 Outpatient Raza [facility] [id number] 05:24:00 17:23:00 [place] [id number] 2019-10-30 2019-10-31 Outpatient Raza [facility] [id number] 05:24:00 17:23:00 Chon Viramontes 2019-10-29 2019-10-30 Outpatient nullFlavo [facility] [id number] Memoria 14:22:00 04:59:00 r Disease 05 l [facility] 2019-10-29 2019-10-30 Outpatient nullFlavo [facility] [id number] Memoria 14:22:00 04:59:00 r Disease 05 l [facility] 2019-10-29 2019-10-29 Outpatient Thosani, [facility] [id number] 09:22:00 23:59:00 Kwadwo 05 [facility] 2019-10-29 2019-10-29 Outpatient Thosani, [facility] [id number] 09:22:00 23:59:[address] [place] [address] 2019 2019 Bedded [facility]Flavo [facility] [id number] [facility]oria 11:47:00 19:00:00 Outpatient r Frandy Priscilla [facility] 2019 2019 Bedded nullFlavo [facility] [id number] Memoria 11:47:00 19:00:00 Outpatient r [place] Pr[facility]illa [facility] 2019 2019 Outpatient Thosani, [facility] [id number] 06:47:00 14:00:00 Kwadwo 06 [facility] 2019 2019 Outpatient Thosani, [facility] [id number] 06:47:00 14:00:00 Kwadwo 06 Corwin bhai 2019 2019 Outpatient [facility] [id number] [facility] 06:47:00 06:47:00 2019-10-05 2019-10-05 [facility] [id number] 09:00:00 09:00:[address] [employer] [facility] Medicine Outpati ent Clinics 2019-10-05 2019-10-05 [facility] [id number] [facility] 09:00:00 09:00:00 t [employer] [facility] Outpati ent Clinics 2019-08-23 2019-08-23 [facility] [id number] [facility] 11:24:00 11:24:00 t [employer] [facility] Outpati ent Clinics 2019-08-02 2019-08-03 Outpatient nullFlavo [facility] [id number] Memoria 16:29:11 04:59:59 r [facility] 2019-08-02 2019-08-03 Outpatient nullFlavo [facility] [id number] Memoria 16:29:11 04:59:59 r [facility] 2019-08-02 2019-08-02 Outpatient nullFlavo [facility] [id number] Memoria 11:29:11 23:59:59 r l [place] 2019-08-02 2019-08-02 Outpatient Fadia [id number] 11:29:11 23:59:59 Charles 8 2019-08-02 2019-08-02 Outpatient nullFlavo [facility] [id number] Memoria 11:29:11 23:59:59 r lewis [place] 2019-08-02 2019-08-02 Outpatient Fadia [id number] 11:29:11 23:59:59 Charles 8 2019-08-01 2019-08-01 [facility] [id number] [facility] 09:45:00 09:45:00 [employer] [facility] Outpati ent Clinics 2019-06-28 2019-06-29 Outpt Diag nullFlavo [facility] [id number] Memoria 12:22:00 05:59:00 Services r Outpatient 00 l Imaging [place] Lorena 2019-06-28 2019-06-29 Outpt Diag nullFlavo [facility] [id number] Memoria 12:22:00 05:59:00 Services r Outpatient 00 l Imaging Frandy [place] 2019-06-28 2019-06-28 Outpatient Raza MHOIP MHOIP [id number] 06:22:00 23:59:00 Chon Viramontes 00 2019-06-28 2019-06-28 Outpatient Raza MHOIP MHOIP [id number] 06:22:00 23:59:00 Chon Viramontes 00 2019-05-07 2019-05-07 [facility] [id number] [facility] 09:35:00 09:35:00 [employer] [facility] ent [facility] 2019-03-30 2019-03-30 [facility] [id number] 09:45:00 09:45:00 [employer] [facility] ent [facility] 2019-02-13 2019-02-13 Ambulatory nullFlavo MNA [id number] Memoria 18:30:00 18:30:00 Pre-Reg r Neurology 00 l [place] 2019-02-13 2019-02-13 Ambulatory nullFlavo MNA [id number] Memoria 18:30:00 18:30:00 Pre-Reg r Neurology 00 l Jasmin Wise 2019-02-13 2019-02-13 Outpatient MHIE MHIE [id number] Memoria 13:30:00 13:30:00 00 l Frandy 2019-02-13 2019-02-13 Outpatient MHIE MHIE [id number] Memoria 13:30:00 13:30:00 00 l Frandy 2019-02-13 2019-02-13 Outpatient TICO HairMISCHER MHMISCHER [id number] 13:30:00 13:30:00 Horace 00 Partha 2019-02-13 2019-02-13 Outpatient TICO HairMISCHER MHMISCHER [id number] 13:30:00 13:30:00 Horace 00 Partha 2019-01-18 2019-01-18 [facility] [id number] 08:39:00 08:39:[address] [address] Luke [place] - Drive [facility] Medicine Outpati ent Clinics 2019-01-17 2019-01-17 [facility] [id number] [facility] 09:33:00 09:33:[address] [address] Luke s - Drive [facility] Medicine Outpati ent Clinics 2018-12-29 2018-12-29 [facility] [id number] 13:30:00 13:30:[address] [address] Luke s - Drive [facility] Medicine Outpati ent Clinics 2018-12-29 2018-12-29 [facility] [id number] 09:30:00 09:30:[address] [address] Luke s - Drive [facility] Medicine Outpati ent Clinics 2018-12-19 2018-12-19 [facility] [id number] 08:15:00 08:15:[address] [address] Luke s - Drive [facility] Medicine Outpati ent Clinics 2018-11-28 2018-11-28 [facility] [id number] 09:15:00 09:15:[address] [address] Luke s - Drive [facility] Medicine Outpati ent Clinics 2018-08-18 2018-08-18 [facility] [id number] 09:45:00 09:45:00 [place] [employer] Luke s - Drive [facility] Medicine Outpati ent Clinics 2018-07-31 2018-07-31 [facility] [id number] 11:22:00 11:22:00 t [facility] ent Clinics 2018-07-26 2018-07-26 [facility] [id number] 08:15:00 08:15:[address] Luke s - Drive [facility] Medicine Outpati ent Clinics 2018-07-19 2018-07-19 [facility] [id number] [facility] 09:52:00 09:52:[address] [address] Luke s - Drive [facility] Medicine Outpati ent Clinics 2018-07-17 2018-07-17 [facility] [id number] 09:30:00 09:30:00 [place] [employer] s - Drive [facility] ent Clinics 2018-07-14 2018-07-14 [facility] [id number] 10:49:00 10:49:00 t [facility] ent Clinics 2018-07-11 2018-07-11 [facility] [id number] 14:30:00 14:30:00 t [facility] ent Clinics 2018-07-05 2018-07-05 [facility] [id number] 20:40:00 20:40:00 t [facility] ent Clinics 2018-07-05 2018-07-05 [facility] [id number] 10:02:00 10:02:00 t [facility] ent Clinics 2018-07-04 2018-07-04 [facility] [id number] 08:00:00 08:00:00 t Bone [facility] ent Clinics 2018-06-26 2018-06-26 [facility] [id number] 11:30:00 11:30:00 [place] [employer] Drive [facility] ent Clinics 2018-06-22 2018-06-22 [facility] [id number] 11:03:00 11:03:00 [place] [employer] [place] Drive [facility] ent Clinics 2018-06-13 2018-06-13 [facility] [id number] [facility] 13:15:00 13:15:00 [place] [employer] - Drive [facility] ent Clinics 2018-02-09 2018-02-09 [facility] [id number] 10:03:00 10:03:[address] [address] Luke [place] - Drive [facility] Medicine Outpati ent Clinics 2018-02-07 2018-02-07 [facility] [id number] 09:00:00 09:00:[address] [address] Luke s - Drive [facility] Medicine Outpati ent Clinics 2017-12-23 2017-12-23 [facility] [id number] 10:00:00 10:00:[address] [address] Luke [place] - Drive [facility] Medicine Medicine Outpati ent Clinics 2017-09-20 2017-09-20 [facility] [id number] 09:00:00 09:00:[address] [address] Luke s - Drive [facility] Medicine Outpati ent Clinics 2017-06-08 2017-06-09 Inpatient nullFlavo [facility] [id number] Memoria 11:41:00 19:59:00 r [place] 02 [facility] 2017-06-08 2017-06-09 Inpatient nullFlavo [facility] [id number] Memoria 11:41:00 19:59:00 r [place] 02 [facility] 2017-06-08 2017-06-09 Outpatient [facility] [id number] 05:41:00 13:59:00 Sumiko 02 [facility] 2017-06-08 2017-06-09 Outpatient [facility] [id number] 05:41:00 13:59:00 Sumiko 02 [facility] 2014-05-22 2014-05-23 Inpatient nullFlavo [facility] [id number] Memoria 11:40:00 20:08:00 r [place] 01 [facility] 2014-05-22 2014-05-23 Inpatient nullFlavo [facility] [id number] Memoria 11:40:00 20:08:00 r [place] 01 [facility] 2014-05-22 2014-05-23 Outpatient [place], 2.16.840. [id number]. 3 [id number] 05:40:00 14:08:00 Ananda Chang [id number] [id number] 2014-05-23 Outpatient Bindal, 2.16.840. 2.16.840.1. 3 [id number] 05:40:00 14:08:00 Ananda Chang [id number] 3159-12-08 2014-04-22 OBS Day nullFlavo [facility] [id number] Memoria 15:50:00 19:05:00 Surgery r [place] 00 l [facility] 2014-04-22 2014-04-22 OBS Day nullFlavo [facility] [id number] Memoria 15:50:00 19:05:00 Surgery r [place] 00 l [facility] 2014-04-22 2014-04-22 Outpatient [place], 2.16.840. 2.16.840.1. 3 [id number] 09:50:00 13:05:00 Ananda Chang [id number] 4766-12-08 2014-04-22 Outpatient [place], 2.16.840. 2.16.840.1. 3 [id number] 09:50:00 13:05:00 Ananda Chang [id number] 5.0.101 01 Results Test Description Test Time Test Comments Results Result Comments Source CHEM PANEL 2020-10-01 113 [facility] 09:55:00 CHEM PANEL 2020-10-01 13 [facility] 09:55:00 CHEM PANEL 2020-10-01 0.76 [facility] 09:55:00 CHEM PANEL 2020-10-01 138 [facility] 09:55:00 CHEM PANEL 2020-10-01 4.5 [facility] 09:55:00 CHEM PANEL 2020-10-01 105 [facility] 09:55:00 CHEM PANEL 2020-10-01 27 [facility] 09:55:00 CHEM PANEL 2020-10-01 8.8 [facility] 09:55:00 CHEM PANEL 2020-10-01 10.5 [facility] 09:55:00 CHEM PANEL 2020-10-01 84 [facility] 09:55:00 HEMATOLOGY 2020-10-01 81.3 [facility] 09:55:00 HEMATOLOGY 2020-10-01 14.2 [facility] 09:55:00 HEMATOLOGY 2020-10-01 4.4 [facility] 09:55:00 HEMATOLOGY 2020-10-01 0.1 [facility] 09:55:00 HEMATOLOGY 2020-10-01 12.1 [facility] 09:55:00 HEMATOLOGY 2020-10-01 2.1 [facility] 09:55:00 HEMATOLOGY 2020-10-01 0.7 [facility] 09:55:00 HEMATOLOGY 2020-10-01 14.9 [facility] 09:55:00 HEMATOLOGY 2020-10-01 3.89 [facility] 09:55:00 HEMATOLOGY 2020-10-01 11.5 [facility] 09:55:00 HEMATOLOGY 2020-10-01 36.2 [facility] 09:55:00 HEMATOLOGY 2020-10-01 93.1 [facility] 09:55:00 HEMATOLOGY 2020-10-01 09:55:00 Test Item Value Reference Range Interpretation Comme nts MCH (test code = MCH) 29.6 pg 27.0-31.0 [facility] YzpacqiAQHIWGIYJX0089-45-06 09:55:0031.8[facility]ann[facility]MATOLOGY 2020-10-01 09:55:0015.9[facility] KlkrownPBEEVNYUMS2320-26-36 09:55:10161Jzmbvfab PdrkpguJKSGNHCGRR0363-91-07 09:55:007.3[facility] HermannCHEM ZHNQY8953-17-95 09:55:07793Vfwpsxcy HermannCHEM QUZIV3374-13-03 09:55:0013[facility] HermannCHEM LFHXJ1242-87-54 09:55:000.76[facility] HermannCHEM XWDBO4567-20-38 09:55:05085 [facility]annCHEM NIHXO6068-58-92 09:55:004.5[facility] HermannCHEM PANEL 2020-10-01 09:55:42608Qdqbbdwf HermannCHEM EIABU3914-28-25 09:55:0027[facility] HermannCHEM IGQFZ0660-77-04 09:55:008.8[facility] HermannCHEM VNLDT3862-38-84 09:55:0010.5[facility] HermannCHEM TVOCT6731-12-79 09:55:0084[facility] Frandy CQARYFZNGM9702-85-03 09:55:0081.3[facility] DjlztpnEMQOBTWCVR4596-62-69 09:55:00 14.2[facility] SdmfetiTPBPRNHCYB3034-15-35 09:55:004.4[facility] HermannHEMATOLOGY 2020-10-01 09:55:000.1[facility] GvaemyrLRWPMBOAIV3452-07-28 09:55:0012.1[facility] HsegzphAYCNEEBNZL5688-54-23 09:55:002.1[facility] NzrwfwgYDRLCTPMQE8777-03-70 09:55:000.7[facility] WcpsenvEDAOJWZVKN3856-96-76 09:55:0014.9[facility] [place] RQJOODRLVP3334-04-85 09:55:003.89[facility] XhgrnxeIDRAWVQCXO3652-45-54 09:55:00 11.5[facility] BatrgwmIHIWASIORM8938-98-71 09:55:0036.2[facility]annHEMATOLOGY 2020-10-01 09:55:0093.1[facility] NwebcfvGGIZVBLUOD8355-96-49 09:55:00 Test Item Value Reference Range Interpretation Comments MCH (test code = MCH) 29.6 pg 27.0-31.0 [facility] QzwwzhvCTIUKKEZWY2083-67-75 09:55:0031.8[facility] HermannHEMATOLOGY 2020-10-01 09:55:0015.9[facility] IkgbetvMGIVQPCRTY3191-92-59 09:55:24419Asqomngg YevjjonFQWEQMNIHQ6004-25-71 09:55:007.3[facility] FwcnjwiCATKBILLFD1006-83-13 15:26:00Not Detected *NA*(09/26/20 10:26 AM)[facility] BkdcxxbLWRZYYKLCN7144-82-14 15:26:00Not Detected *NA*(09/26/20 10:26 AM)[facility] HermannBACTERIAL - SEROLOGY 2020-09-18 14:36:00Negative (09/18/20 9:36 AM)[facility] HermannCHEM YINEH8775-73-57 14:36:44157Ixcwrvkb HermannCHEM IJVDF9294-03-21 14:36:009[facility] HermannCHEM WNKZK4557-59-37 14:36:000.63[facility] HermannCHEM KGCSS5703-05-02 14:36:42600 [facility] HermannCHEM MAQYB8575-39-43 14:36:004.1[facility] HermannCHEM PANEL 2020-09-18 14:36:83036Erwscnba HermannCHEM JAVDE3295-32-05 14:36:0031[facility] HermannCHEM PPGGN2925-06-28 14:36:009.2[facility] HermannCHEM TNLTJ6328-11-25 14:36:007.1[facility] HermannCHEM OYQQK1616-11-37 14:36:0096[facility] Frandy ERXTVXCDUW3303-48-09 14:36:007.4[facility] YtvdpymYCGRFZOZYO7699-96-51 14:36:00 4.66[facility] XfsvtqzLUOQCFNHBX0209-22-97 14:36:0014.0[facility] HermannHEMATOLOGY 2020-09-18 14:36:0042.4[facility] KrfjouwHJNVMGTSVJ5884-06-92 14:36:0091.0[facility] UbcfhwcUUNSOEJGBF2499-87-75 14:36:00 Test Item Value Reference Range Interpretation Comments MCH (test code = MCH) 30.1 pg 27.0-31.0 Memorial DnxqchvCXEYOFXSWC1306-66-89 14:36:0033.1[facility] HermannHEMATOLOGY 2020-09-18 14:36:0015.5[facility] FehkcmbOGSHLNFXRN1541-66-62 14:36:05110Wjmxdrah GxemcouDEQOWPRDTG2894-55-76 14:36:007.2[facility] ZedjoixRHMJEYPWMP2380-84-47 14:36:00 Test Item Value Reference Range Interpretation Comments PT (test code = PT) 13.3 s 12.0-14.7 Memorial OhzeuxqTCXCCJVXSX6134-51-48 14:36:00 Test Item Value Reference Range Interpretation Comments INR (test code = INR) 1.02 1 0.85-1.17 [facility] AaleqplQVZUGWWXAN2930-87-19 14:36:00 Test Item Value Reference Range Interpretation Comments PTT (test code = PTT) 32.9 s 22.9-35.8 Memorial EfsxwhhRLGKBRZMAX6268-29-22 14:36:0060.7[facility] HermannHEMATOLOGY 2020-09-18 14:36:0029.8[facility] ZbgbzuyRBSYYEUTKX3104-11-14 14:36:007.4[facility] IxxbihxTJKORBNHPJ9595-98-43 14:36:001.3[facility] CjjvkluVRPRTWEDZE4059-41-08 14:36:000.8[facility] BrhcwbdSZPNRWNUVT1384-99-90 14:36:004.5[facility] Frandy FBYJNCUXBK9219-12-00 14:36:002.2[facility] MylpypiALOLXBNOWR9833-60-55 14:36:000.5 Memorial JqmdvteWWNPMLACTG6522-38-35 14:36:000.1[facility] HermannHEMATOLOGY 2020-09-18 14:36:000.1[facility] HermannSPECIAL ANXRDFJFB9080-59-35 14:36:006.4 [facility]annURINE AND HPZBK9457-66-93 14:36:008[facility] HermannURINE AND JKXIO4372-81-40 14:36:004[facility]annURINE AND ZVPKK3566-95-62 14:36:00 Yellow *NA*(09/18/20 9:36 AM)[facility] MDBIJ4308-10-77 14:36:00 Clear (09/18/20 9:36 AM)[facility] AND KMUXZ7425-80-94 14:36:00 Test Item Value Reference Range Interpretation Comments UA Spec Grav (test code = UA Spec 1.020 1 Grav) [facility] DRGCF5205-59-91 14:36:00 Test Item Value Reference Range Interpretation Comments UA pH (test code = UA pH) 6.5 1 5.0-8.0 [facility] [id number] 14:36:00Negative (09/18/20 9:36 AM) [facility] [id number] 14:36:00Negative (09/18/20 9:36 AM) [facility] [id number] 14:36:00Negative *NA*(09/18/20 9:36 AM) [facility] [id number] 14:36:00Negative *NA*(09/18/20 9:36 AM) [facility] [id number] 14:36:00Negative (09/18/20 9:36 AM) [facility] [id number] 14:36:000.2[facility] [id number] 14:36:00Negative (09/18/20 9:36 AM)[facility] STOOL 2020-09-18 14:36:00Small *ABN*(09/18/20 9:36 AM)[facility]CT[facility] - [id number] 14:36:00Negative (09/18/20 9:36 AM)[facility]ann[facility] PANEL 2020-09-18 14:36:28874Nuaekwbz HermannCHEM JVBGK0113-80-90 14:36:009[facility] PFMHA0891-26-57 14:36:000.63[facility]annCHE[facility] YFTLR4658-73-75 14:36:47605Qaemrqmb HermannCHEM HTBOA3527-95-70 14:36:004.1[facility]ann[facility] QPLZE2334-33-55 14:36:96397Ubcvlate HermannCHEM QLHVB7955-72-47 14:36:0031 [facility] DWEOW3599-70-46 14:36:009.2[facility]annCHE[facility] PANEL 2020-09-18 14:36:007.1[facility]annCHE[facility] [id number] 14:36:0096[facility] YnpxbxdGLCEOQOCYK4395-14-01 14:36:007.4[facility] GvobutoKQQPJGLDXI3436-81-58 14:36:004.66[facility] LpetvnrDORKMMXIDE8022-34-96 14:36:0014.0[facility] NVSERZZCUR6910-22-14 14:36:0042.4[facility] BisdbghXAUERWHIFF3365-10-24 14:36:00 91.0[facility] LfhrdxcPNCCEYKDBN0513-42-93 14:36:00 Test Item Value Reference Range Interpretation Comments MCH (test code = MCH) 30.1 pg 27.0-31.0 [facility] UnmctcnHACLFJSIDT4410-29-91 14:36:0033.1[facility]annHEMATOLOGY 2020-09-18 14:36:0015.5[facility] GjmfjuyRAEWBSWWFY5514-63-44 14:36:16550Dwbptddw RxbcnslYWYGFIMEZQ0087-06-03 14:36:007.2[facility] PggiqkkHCYTCPDENI7491-81-31 14:36:00 Test Item Value Reference Range Interpretation Comments PT (test code = PT) 13.3 s 12.0-14.7 [facility] BdhtkcrPTPFDCXDHZ2344-75-64 14:36:00 Test Item Value Reference Range Interpretation Comments INR (test code = INR) 1.02 1 0.85-1.17 [facility] HjivvweQPUJQXOSTA9228-98-47 14:36:00 Test Item Value Reference Range Interpretation Comments PTT (test code = PTT) 32.9 s 22.9-35.8 [facility] DwmxxomRZPUEMGELL1595-79-62 14:36:0060.7[facility]annHEMATOLOGY 2020-09-18 14:36:0029.8[facility] KxjujigSZJJADRBSW7342-73-46 14:36:007.4[facility] JfjcxqqTJCNSIAACR6154-82-45 14:36:001.3[facility] VbftcfgKKKSTUDPHI9490-55-98 14:36:000.8[facility] RuhiciqRBXTJKKQVG3684-51-22 14:36:004.5[facility] WSWLHVHUCI7495-68-38 14:36:002.2[facility] XkjljnzXWTACRWBIG7387-21-46 14:36:000.5 [facility] BrkfpjbZBKVESOCXK2701-07-36 14:36:000.1[facility]annHEMATOLOGY 2020-09-18 14:36:000.1[facility]annSPECIAL BOWHCZGIZ5750-55-01 14:36:006.4 [facility] JZHVK9109-93-22 14:36:008[facility] AUKRW7516-15-47 14:36:004[facility] POLWN3881-08-15 14:36:00 Yellow *NA*(09/18/20 9:36 AM)[facility] CAQON9339-96-96 14:36:00 Clear (09/18/20 9:36 AM)[facility] DZAOV1498-69-01 14:36:00 Test Item Value Reference Range Interpretation Comments UA Spec Grav (test code = UA Spec 1.020 1 Grav) [facility] AHKXL5911-03-12 14:36:00 Test Item Value Reference Range Interpretation Comments UA pH (test code = UA pH) 6.5 1 5.0-8.0 [facility] YPZQC8343-99-07 14:36:00Negative (09/18/20 9:36 AM) [facility] QGQDG1346-30-78 14:36:00Negative (09/18/20 9:36 AM) [facility] XDMWB7837-23-27 14:36:00Negative *NA*(09/18/20 9:36 AM) [facility] YKBAW0308-91-41 14:36:00Negative *NA*(09/18/20 9:36 AM) [facility] WFPKC5956-82-65 14:36:00Negative (09/18/20 9:36 AM) [facility] VURAH4293-92-12 14:36:000.2[facility] VUSQY2065-00-96 14:36:00Negative (09/18/20 9:36 AM)[facility] STOOL 2020-09-18 14:36:00Small *ABN*(09/18/20 9:36 AM)[facility]annIMMUNOLOGY 2020-07-18 16:15:00Not Detected *NA*(07/18/20 10:15 AM)[facility]annIMMUNOLOGY 2020-07-18 16:15:00Not Detected *NA*(07/18/20 10:15 AM)[facility]annCHEM PANEL 2020-07-14 18:56:41521Ugucwejd HermannCHEM OBWWF7525-80-35 18:56:0010[facility]annCHEM XQSOH7182-21-30 18:56:000.80[facility]annCHEM SLAQC9104-90-50 18:56:80231Tnoagzlk HermannCHEM FOCQQ4703-93-14 18:56:004.8[facility]annCHEM AQMFN4283-37-39 18:56:93939Ugncbcsn HermannCHEM MOGNH9709-99-71 18:56:0028 [facility]annCHEM EMAZU1755-40-15 18:56:008.9[facility]annCHEM PANEL 2020-07-14 18:56:0010.8[facility] HermannCHEM RUYNT9972-15-32 18:56:0079[facility] TqkvkyaVZBTDJMUTI4433-14-63 18:56:007.1[facility] KyuhneqNPUAIPVUHN9882-97-11 18:56:004.84[facility] DbxwytmGFIJVDCJZI5960-14-43 18:56:0014.5[facility] FXIQEIARAL3682-18-22 18:56:0044.2[facility] UksyxgwDVLHXCEYON8778-36-18 18:56:00 91.3[facility] GhshlugBTLPYOOIZQ6521-72-48 18:56:00 Test Item Value Reference Range Interpretation Comments MCH (test code = MCH) 30.0 pg 27.0-31.0 [facility] AqflkecKNBQXMSOHH7649-21-85 18:56:0032.8[facility] HermannHEMATOLOGY 2020-07-14 18:56:0013.2[facility] MtlrpanECMNIFDHKM7881-04-74 18:56:17978Gswtvyfi AkrwuhjRDMKTYACGI4539-72-47 18:56:007.2[facility] EhmmohkDCOQNLBTUM7141-12-14 18:56:00 Test Item Value Reference Range Interpretation Comments PT (test code = PT) 12.8 s 12.0-14.7 [facility] HejygmgNCPBQBQRVV8094-68-57 18:56:00 Test Item Value Reference Range Interpretation Comments INR (test code = INR) 0.97 1 0.85-1.17 [facility] HxtzshrRMPRQZRBQP3506-21-64 18:56:00 Test Item Value Reference Range Interpretation Comments PTT (test code = PTT) 29.8 s 22.9-35.8 [facility] EzxhpxpXFVVNLBEOL6967-21-88 18:56:0048.7[facility] HermannHEMATOLOGY 2020-07-14 18:56:0042.8[facility] OxflyjaLQFUEZPEIA0551-37-86 18:56:005.8[facility] SiwohjtASORDGOSBD6537-44-25 18:56:002.1[facility] CtkhhyyFUMMEHHFFC6722-76-44 18:56:000.6[facility] GajismqIAFZCUULTT7624-99-46 18:56:003.5[facility] PZHHKFPUIH3321-20-77 18:56:003.0[facility] AhsyiuqFQYTILZIJY1724-72-15 18:56:000.4 [facility] ErsuhazVAATQPXLKT5430-36-37 18:56:000.1[facility] HermannCHEM PANEL 2020-07-14 18:56:81562Iaobnszv HermannCHEM TQQMS1890-06-99 18:56:0010[facility] HermannCHEM VBAEG7762-62-67 18:56:000.80[facility] HermannCHEM APGHV6509-43-14 18:56:56451Lkhpgfes HermannCHEM IBYUW2619-78-10 18:56:004.8[facility] HermannCHEM EVUVI0227-65-35 18:56:26743Qhgpxwsk HermannCHEM VDOXZ7789-57-12 18:56:0028 [facility]annCHEM GMOEQ4433-41-95 18:56:008.9[facility] HermannCHEM PANEL 2020-07-14 18:56:0010.8[facility] HermannCHEM DIBIX7923-05-26 18:56:0079[facility] WcsfxwzZHWOZFINDD1943-89-05 18:56:007.1[facility] TxupojpSAPJQSGIIC4103-36-66 18:56:004.84[facility] HtomnhgXNAADLTYIV7337-18-75 18:56:0014.5[facility] HBNJISJTHK2608-02-54 18:56:0044.2[facility] ZqhzddmHGQIYPAEDA2027-44-27 18:56:00 91.3[facility] MifvpdiIVECNFVPMD5211-98-38 18:56:00 Test Item Value Reference Range Interpretation Comments MCH (test code = MCH) 30.0 pg 27.0-31.0 [facility] ReedbgpWKXMJYQNWV0261-82-02 18:56:0032.8[facility]annHEMATOLOGY 2020-07-14 18:56:0013.2[facility] JravuiuTBXZEHESVF6737-86-76 18:56:11267Wdhomcov HjwqrkkXJAXPJVIII2236-82-46 18:56:007.2[facility] XaqlpgbDIMKIZVQJG2422-66-12 18:56:00 Test Item Value Reference Range Interpretation Comments PT (test code = PT) 12.8 s 12.0-14.7 [facility] HwsnxooZNQLDLIDKU7733-53-79 18:56:00 Test Item Value Reference Range Interpretation Comments INR (test code = INR) 0.97 1 0.85-1.17 [facility] QdxrgmmKBKKUVWDAZ6720-08-00 18:56:00 Test Item Value Reference Range Interpretation Comments PTT (test code = PTT) 29.8 s 22.9-35.8 [facility] ReeyuwaRSLFYFZMJR4929-91-49 18:56:0048.7[facility] HermannHEMATOLOGY 2020-07-14 18:56:0042.8[facility] KuewnlgBNNSWGTBTC9101-12-69 18:56:005.8[facility] EhqhetyKLJWKTJFQU5816-83-86 18:56:002.1[facility] XbgldrvSEOAADUNDS4159-83-43 18:56:000.6[facility] XvpkzxyXEKPTLVOCC9461-03-70 18:56:003.5[facility] MIAVLQSSIC9770-15-13 18:56:003.0[facility] KfsxntrMPYRLEFNSS0382-43-68 18:56:000.4 [facility] WurrxnvESJHEFCMBA0770-81-56 18:56:000.1[facility] HermannCHEM PANEL 2020-04-28 18:24:13479Ehrgvcqg HermannCHEM BAVTX5226-07-80 18:24:0010[facility] HermannCHEM SOTSJ7551-05-56 18:24:000.81[facility] HermannCHEM NKARR6353-82-85 18:24:27807Yagqcxdt HermannCHEM YJJGH2996-74-02 18:24:004.5[facility] HermannCHEM KYAMC1922-73-98 18:24:17371Ixzzwkhs HermannCHEM DAXFO3973-96-22 18:24:0028 [facility]annCHEM AWRAI9107-51-73 18:24:008.8[facility] HermannCHEM PANEL 2020-04-28 18:24:0012.5[facility] HermannCHEM PRVQG5499-88-36 18:24:0078[facility] TmvnwpeXUQOGVHMVE3277-44-66 18:24:0030.3[facility] PvfpllkCHSUBKUONB7326-31-71 18:24:0058.8[facility] HbsmmnjVUDYHPBCZY7871-28-72 18:24:006.7[facility] GEQGADGCHJ0358-56-56 18:24:003.3[facility] XqoprzcJDHUJDWKZX9617-93-15 18:24:000.9 [facility] IcrouaySGISRWTZKD7746-29-14 18:24:003.0[facility] HermannHEMATOLOGY 2020-04-28 18:24:005.7[facility] MnwaeyjNDPRNBNTFQ3529-13-06 18:24:000.7[facility] IncsdmqJZJHUTDRFX7177-23-91 18:24:000.3[facility] TssmdvdSKMTZIBFQA6208-67-30 18:24:000.1[facility] LmuyskdAQXWAEJITE0080-68-81 18:24:009.7[facility] FDUFGBTRRN4143-96-82 18:24:004.49[facility] YmcjwxgHXYMVFHLMI9704-48-10 18:24:00 13.7[facility] BfqtabvUNHWFYKZFI5333-61-17 18:24:0041.5[facility] HermannHEMATOLOGY 2020-04-28 18:24:0092.3[facility] ZgqrgpkJHECLIFAAJ7472-46-31 18:24:00 Test Item Value Reference Range Interpretation Comments MCH (test code = MCH) 30.4 pg 27.0-31.0 [facility] NpncmvtEMISVDLKVQ3624-12-80 18:24:0033.0[facility] HermannHEMATOLOGY 2020-04-28 18:24:0014.1[facility] MguedqjGZSBLTAMMQ6999-88-42 18:24:73615Hxlfbyhv IjmlmrsJHNZHGFKLB3443-83-52 18:24:007.0[facility] HermannCHEM GALVW2819-72-19 18:24:09261Jzsihsli HermannCHEM EUUPZ5071-00-08 18:24:0010[facility] HermannCHEM ZQNDT5725-37-34 18:24:000.81[facility] HermannCHEM IGFMZ2449-83-36 18:24:32690 [facility]annCHEM VDNGT1188-79-45 18:24:004.5[facility] HermannCHEM PANEL 2020-04-28 18:24:57686Iaeaifaq HermannCHEM ADBHK0279-10-81 18:24:0028[facility] HermannCHEM XGHJY7036-61-28 18:24:008.8[facility] HermannCHEM WJPPH9122-73-54 18:24:0012.5[facility] HermannCHEM XLZBE0651-86-71 18:24:0078[facility] BDEHLTBMMK7454-23-53 18:24:0030.3[facility] WpacrlrMWJZFRMLXD7871-73-23 18:24:00 58.8[facility] QqtxlthHWSRMDHTOG4706-66-92 18:24:006.7[facility] HermannHEMATOLOGY 2020-04-28 18:24:003.3[facility] EqkzyorFRYZLDWIKX0397-18-09 18:24:000.9[facility] IzkquqkGJQOLDGVKE4666-68-99 18:24:003.0[facility] TgnelqsPXWZIDPICA2830-87-59 18:24:005.7[facility] QvzdzehERSXNBZUBZ7649-36-47 18:24:000.7[facility] YXPXYHVQEU4566-02-09 18:24:000.3[facility] DvmjtkyMLMSIKXGNY8502-93-85 18:24:000.1 [facility] JvlxlgyPCHOCLOEBK2114-56-79 18:24:009.7[facility] HermannHEMATOLOGY 2020-04-28 18:24:004.49[facility] WtjyoqnTFQSHNLCKH5316-37-18 18:24:0013.7[facility] HleyovbHIRDEMDRIM5438-88-60 18:24:0041.5[facility] UdhjqyvWTDUEJIHTU3945-67-08 18:24:0092.3[facility] EsncwmkAUERMTVCTO3537-93-03 18:24:00 Test Item Value Reference Range Interpretation Comments MCH (test code = MCH) 30.4 pg 27.0-31.0 [facility] AworkiyJQKDWKIZXG9788-52-07 18:24:0033.0[facility] HermannHEMATOLOGY 2020-04-28 18:24:0014.1[facility] UtzvogzOEOORFSYRR0305-89-34 18:24:65124Ooslgptn KwslgtaDBFUMARSIL2329-41-51 18:24:007.0[facility] OgqtjodQZOPANHJBC6501-29-11 17:19:00Not Detected (04/24/20 11:19 AM)[facility] QhifsgrZPECLRTQQK4241-59-61 17:19:00Not Detected (04/24/20 11:19 AM)[facility]annBLOOD BANK RESULTS 2020-04-24 16:08:00Negative (04/24/20 10:08 AM)[facility] HermannCHEM PANEL 2020-04-24 16:08:05615Ucqydmzn HermannCHEM WWSVH8511-04-45 16:08:0011[facility] HermannCHEM QLFWT6855-25-48 16:08:000.80[facility] HermannCHEM SUGBO8261-89-12 16:08:04432Chqhpajb HermannCHEM HSMXR7557-87-38 16:08:004.2[facility] HermannCHEM PITRR4629-22-89 16:08:13985Zmscamhy HermannCHEM HXBQQ0765-63-50 16:08:0031 [facility]annCHEM HDNFF8552-96-59 16:08:008.8[facility] HermannCHEM PANEL 2020-04-24 16:08:0012.2[facility] HermannCHEM MNLOZ7141-12-21 16:08:0079[facility] HermannCHEM MRKDO3808-06-52 16:08:0029[facility] HermannCHEM FXYME8350-99-39 16:08:003.5[facility] XspnktlGRDIGLUQXK8451-74-97 16:08:006.6[facility] LVXNZJJRBG6909-96-42 16:08:004.60[facility] SunfnycSFRAIALINE5633-73-98 16:08:00 13.9[facility] YqocxpwELTTZQMUBP1125-49-90 16:08:0042.2[facility] HermannHEMATOLOGY 2020-04-24 16:08:0091.7[facility] PnikgxoJUGDIXRLWZ4533-16-44 16:08:00 Test Item Value Reference Range Interpretation Comments MCH (test code = MCH) 30.2 pg 27.0-31.0 [facility]kvkcdeZVSYCULPVJ6851-00-67 16:08:0032.9[facility] HermannHEMATOLOGY 2020-04-24 16:08:0014.5[facility] RqacyciSPJOYVLRBG2136-80-29 16:08:95596Ijhpnlwh WshokdaMWZTFWAWWB8989-35-29 16:08:007.4[facility] SmzwpyxTZZTPDMZFZ8694-14-99 16:08:00 Test Item Value Reference Range Interpretation Comments PROTIME (test code = PROTIME) 12.5 s 12.0-14.7 [facility] ZdnrdpmYGJKXVBQNC1000-34-54 16:08:00 Test Item Value Reference Range Interpretation Comments INR (test code = INR) 0.93 1 0.85-1.17 [facility] PheyzrwZADJBVSDWL1652-03-13 16:08:00 Test Item Value Reference Range Interpretation Comments aPTT (test code = aPTT) 31.2 s 22.9-35.8 [facility] MezghpfWVLVJFYFYV5835-68-84 16:08:0056.2[facility]annHEMATOLOGY 2020-04-24 16:08:0034.8[facility] DebqejfCPIZOKNUPV4701-60-73 16:08:005.9[facility] GenxoqiJMNCUMAYYT3858-01-32 16:08:002.6[facility] FqjysqdIIHAAJJOWR8771-72-99 16:08:000.5[facility] CfkddalMUWJIAKYJN6022-61-66 16:08:003.7[facility] RNANDCXDDK8728-94-92 16:08:002.3[facility] UthgqwiMTQZPGYFZV5453-15-49 16:08:000.4 [facility] EehqnltYUEEONXSJZ1182-73-84 16:08:000.2[facility] HermannSPECIAL RQVZLTQOO4663-37-66 16:08:006.6[facility]UR[facility] AND AJCFO9085-39-08 16:08:00Yellow *NA*(04/24/20 10:08 AM)[facility] NJJZQ7444-73-98 16:08:00Clear (04/24/20 10:08 AM)[facility] GKZYZ0347-86-24 16:08:00<=1.005 *NA*(04/24/20 10:08 AM)[facility] STOOL 2020-04-24 16:08:00 Test Item Value Reference Range Interpretation Comments UA pH (test code = UA pH) 6.0 1 5.0-8.0 [facility] CCIIL8983-38-42 16:08:00Negative (04/24/20 10:08 AM) [facility] BLTJA8551-61-09 16:08:00Negative *NA*(04/24/20 10:08 AM)[facility] ZTMOW4552-33-08 16:08:00Negative *NA*(04/24/20 10:08 AM)[facility] IVXOA4829-26-29 16:08:00Negative (04/24/20 10:08 AM)[facility] KNBZR6551-13-01 16:08:000.2[facility] URINE AND IFFWC6557-60-69 16:08:00Negative (04/24/20 10:08 AM)[facility] URINE AND FOPNO7723-17-76 16:08:00Negative (04/24/20 10:08 AM)[facility]INE AND SGKAS1993-52-57 16:08:00Performed (04/24/20 10:08 AM)[facility] GUYRUVJ4275-79-88 16:08:00Negative (04/24/20 10:08 AM)[facility] HermannCHEM VVINE0339-89-06 16:08:42965Tvtkdebo HermannCHEM SASKA5104-39-54 16:08:0011[facility] HermannCHEM VJTYP8978-14-03 16:08:000.80[facility] HermannCHEM TISXO5259-86-42 16:08:59088Mcgdikjz HermannCHEM EQDHE6644-07-87 16:08:004.2 [facility]annCHEM NIFKM2215-80-21 16:08:76527Ycpljekd HermannCHEM PANEL 2020-04-24 16:08:0031[facility] HermannCHEM ZGBSR5277-14-98 16:08:008.8[facility] HermannCHEM RYQCX6363-58-26 16:08:0012.2[facility] HermannCHEM KHRTX6888-90-31 16:08:0079[facility] HermannCHEM AXYIX9932-01-95 16:08:0029[facility] HermannCHEM HCCXJ1866-34-81 16:08:003.5[facility] MurfjcoYPQPOKEQJO4983-01-36 16:08:006.6 [facility] HzmdktnIGJTXROSLD7559-48-09 16:08:004.60[facility]annHEMATOLOGY 2020-04-24 16:08:0013.9[facility] JlglhyaHMOQZPCFTA2422-25-76 16:08:0042.2[facility] PxjfcgqZUULRPSEAK3995-06-64 16:08:0091.7[facility] VilwbmbRUWRCZBIPK6688-96-12 16:08:00 Test Item Value Reference Range Interpretation Comments MCH (test code = MCH) 30.2 pg 27.0-31.0 [facility] LoyysojSQATWFACEQ6546-91-99 16:08:0032.9[facility]annHEMATOLOGY 2020-04-24 16:08:0014.5[facility] JbqkkcuFOIFLNQGRR3819-46-29 16:08:10881Tdejrovk IbvjrosNVXGNUFMKN7418-42-21 16:08:007.4[facility] QvdigekKENFEBNTIZ2273-40-78 16:08:00 Test Item Value Reference Range Interpretation Comments PROTIME (test code = PROTIME) 12.5 s 12.0-14.7 [facility] RpiqfsqWAPCCOESVK3488-86-28 16:08:00 Test Item Value Reference Range Interpretation Comments INR (test code = INR) 0.93 1 0.85-1.17 [facility] MkpgsdfMMJLKBAYDZ3154-92-55 16:08:00 Test Item Value Reference Range Interpretation Comments aPTT (test code = aPTT) 31.2 s 22.9-35.8 [facility] JqqudfqGQWPEDPJML4313-57-21 16:08:0056.2[facility]annHEMATOLOGY 2020-04-24 16:08:0034.8[facility] GxhjjkfUXUWHLVPXS6588-80-55 16:08:005.9[facility] JxedjevLIUDRUMKDA2034-34-55 16:08:002.6[facility] VavbjjmPVOIVOFDVT2480-22-63 16:08:000.5[facility] RxpdxcnUDJQEOFCFH9055-99-73 16:08:003.7[facility] DWXZPUPHNQ6645-71-58 16:08:002.3[facility] ZpjosirIMHCJULNWO5397-69-71 16:08:000.4 [facility] SsiuykrJRVZPAJEUO7416-01-38 16:08:000.2[facility] HermannSPECIAL IHTGKQJKB7115-40-18 16:08:006.6[facility]UR[facility] AND ZIEZR4271-83-57 16:08:00Yellow *NA*(04/24/20 10:08 AM)[facility] RWDVE9040-08-41 16:08:00Clear (04/24/20 10:08 AM)[facility] KTZDP0066-95-88 16:08:00<=1.005 *NA*(04/24/20 10:08 AM)[facility] STOOL 2020-04-24 16:08:00 Test Item Value Reference Range Interpretation Comments UA pH (test code = UA pH) 6.0 1 5.0-8.0 [facility] RVOYN4837-62-25 16:08:00Negative (04/24/20 10:08 AM) [facility] CQJUH9868-67-79 16:08:00Negative *NA*(04/24/20 10:08 AM)[facility] JZVST0460-97-56 16:08:00Negative *NA*(04/24/20 10:08 AM)[facility] BUUXE7329-27-61 16:08:00Negative (04/24/20 10:08 AM)[facility] FZTDV7991-92-86 16:08:000.2[facility] URINE AND UDKRI0546-16-98 16:08:00Negative (04/24/20 10:08 AM)[facility] URINE AND JKTJX5217-06-95 16:08:00Negative (04/24/20 10:08 AM)[facility] URINE AND EBMQR1993-05-10 16:08:00Performed (04/24/20 10:08 AM)[facility] CHEM XVATS5725-57-54 09:07:97980Asbvofjg HermannCHEM WAMNH4008-88-21 09:07:0011 [facility]annCHEM JJDPT3849-64-32 09:07:000.85[facility] HermannCHEM PANEL 2019-10-31 09:07:96991Nigdzkwi HermannCHEM VXIMG0339-21-30 09:07:004.5[facility] HermannCHEM MXIOJ8184-52-48 09:07:57935Sellemer HermannCHEM IRBCV8227-86-16 09:07:0030[facility] HermannCHEM GBAQE2238-48-34 09:07:008.2[facility] HermannCHEM GHHXM6718-95-12 09:07:007.5[facility] HermannCHEM YFOQJ6331-64-56 09:07:0073 [facility] DsydmkeSRYDCJDNUY4795-28-16 09:07:0011.0[facility] HermannHEMATOLOGY 2019-10-31 09:07:003.47[facility] TjrjmpjHPBRUXUKCS6647-75-82 09:07:0010.6[facility] MoijcviACJAOAELXC2733-41-01 09:07:0031.7[facility] UbhpzxfUQGREPULWQ1440-25-48 09:07:0091.3[facility] CwbdtjnLWJQMVNBXS8502-14-77 09:07:00 Test Item Value Reference Range Interpretation Comments MCH (test code = MCH) 30.6 pg 27.0-31.0 [facility] MarxaolMLYTVUYVPP1129-14-25 09:07:0033.6[facility] HermannHEMATOLOGY 2019-10-31 09:07:0013.8[facility] SmcesndQKQXMTVUVW0319-89-64 09:07:82455Jlkmrguv YegynrcCTLEYHGVKY9064-17-55 09:07:006.8[facility] RdsvfxbGSTRQCTMAF8457-24-76 09:07:0083.6[facility] YbwegaxTNJPMDHNQS9231-17-42 09:07:0011.1[facility] DNEWIURIQE5180-93-61 09:07:005.3[facility] QaqnshqHVVVAWIBIR9936-99-00 09:07:009.2 [facility] IufhwpdVUDOVNHPFX7170-89-52 09:07:001.2[facility] HermannHEMATOLOGY 2019-10-31 09:07:000.6[facility] HermannCHEM BVBRM8688-07-20 09:07:42541Xriiipnb HermannCHEM NTZOB2437-69-62 09:07:0011[facility] HermannCHEM MXLHY9845-56-37 09:07:000.85[facility] HermannCHEM SKXEO3032-02-60 09:07:33718Puoijxll HermannCHEM QBACC1761-41-40 09:07:004.5[facility] HermannCHEM PQSMY8874-84-77 09:07:95751 [facility] HermannCHEM WMDVR1942-58-97 09:07:0030[facility] HermannCHEM PANEL 2019-10-31 09:07:008.2[facility] HermannCHEM VMPJA5177-05-71 09:07:007.5[facility] HermannCHEM WLSSV9060-02-76 09:07:0073[facility] HvjijpbFYMJRRECES8803-15-85 09:07:0011.0[facility] CuvnbbgSKEUZFTFKT6796-06-99 09:07:003.47[facility] IIGDCLIPKG9612-84-59 09:07:0010.6[facility] LhqcdpkOFUVQKUQBE0989-52-84 09:07:00 31.7[facility] DripccbSUIIOYRHYL7052-83-82 09:07:0091.3[facility] HermannHEMATOLOGY 2019-10-31 09:07:00 Test Item Value Reference Range Interpretation Comments MCH (test code = MCH) 30.6 pg 27.0-31.0 [facility] DrwcgirRUONDNHWGC9833-86-64 09:07:0033.6[facility]annHEMATOLOGY 2019-10-31 09:07:0013.8[facility] IrbdmxoCUUBNITFUV7461-27-23 09:07:68144Lcgwopfb SyjmcitXSAXJDNCOP9559-88-35 09:07:006.8[facility] SjngmqqGZXKFRZCRR7141-94-65 09:07:0083.6[facility] UpfliaeREDXTBHMHS9888-25-09 09:07:0011.1[facility] WSJXSOFWFK7476-73-82 09:07:005.3[facility] HnegtyqMVCUQYVSMM0475-47-45 09:07:009.2 [facility] ShihqxpLMJTQBUIUU4569-31-26 09:07:001.2[facility]annHEMATOLOGY 2019-10-31 09:07:000.6[facility] RbbyyvdEAYSLDMBFI0185-35-61 21:10:0013.0[facility] UxezcziKUDFOQWZOD6024-85-70 21:10:003.42[facility] CeeijpiAFTPZUALBY4603-94-54 21:10:0010.3[facility] ZzffgeiSZEGRZBYNY7779-47-04 21:10:0031.9[facility] OJUAVYWTLT9101-75-71 21:10:0093.2[facility] ChvwwimAWNWSKEADF4070-81-71 21:10:00 Test Item Value Reference Range Interpretation Comments MCH (test code = MCH) 30.2 pg 27.0-31.0 [facility] KgvrqymNTXAMJGKOB8777-40-86 21:10:0032.4[facility]annHEMATOLOGY 2019-10-30 21:10:0013.9[facility] BpfpnciWWMKVOGOQT0601-55-87 21:10:36703Fkrwfxje ZutnjpxUKNDUWXKWA4285-47-50 21:10:006.9[facility] JgaoxjlOEYNVHVTKK9199-00-21 21:10:0013.0[facility] EvadgkkQWHAAGHKGY4278-18-62 21:10:003.42[facility] OZAIHPHJWM9318-78-47 21:10:0010.3[facility] DowbdanNDEZNQZVLM2533-08-29 21:10:00 31.9[facility] WlhctsxYMTCOBKETN2862-71-26 21:10:0093.2[facility]annHEMATOLOGY 2019-10-30 21:10:00 Test Item Value Reference Range Interpretation Comments MCH (test code = MCH) 30.2 pg 27.0-31.0 [facility] ZzspmosFUQDFSDFUE3686-76-68 21:10:0032.4[facility]annHEMATOLOGY 2019-10-30 21:10:0013.9[facility] HqhmmyhPNWWLABPHM4688-17-82 21:10:66448Xqncbgph QehaeceZGWLHDHJOG1589-88-34 21:10:006.9[facility]annBLOOD BANK RESULTS 2019-10-30 19:16:00Product available (10/30/19 2:16 PM)[facility] AFQMLQM9008-76-03 19:16:00Product available (10/30/19 2:16 PM)[facility] BACTERIAL - BQLUEZDV1745-38-36 18:12:00Negative (10/25/19 1:12 PM)[facility] VVCCYMJ9814-13-00 18:12:00Negative (10/25/19 1:12 PM)[facility]annCHEM IMZLF3971-40-48 18:12:0092[facility]annCHEM QLTWK0178-45-70 18:12:0012[facility]annCHEM GXJOE3416-14-22 18:12:000.83[facility]annCHEM MRDDW4616-45-89 18:12:04841Fqlraltb HermannCHEM DBRTN6414-46-39 18:12:004.3 [facility]annCHE[facility] CESHJ6459-18-21 18:12:58176Judlxovx HermannCHEM PANEL 2019-10-25 18:12:0029[facility]annCHEM LOGRZ9303-07-95 18:12:009.2[facility]annCHEM BIXNW5976-77-70 18:12:0010.3[facility]annCHEM FYGOZ8717-75-50 18:12:0075[facility] MjltmpdCZUKZPQELL5441-97-64 18:12:0047.8[facility] PHLFTVVMRX4972-37-15 18:12:0045.1[facility] JfmodevRVZKHQBEFA0109-39-35 18:12:00 5.5[facility] JvkggtzSOMILSVJJH2906-49-08 18:12:001.3[facility]annHEMATOLOGY 2019-10-25 18:12:000.3[facility] KnwjqknQBAOPSWODK0055-75-39 18:12:003.5[facility] WqgbyzeQWNBYQZEJH6366-67-57 18:12:003.3[facility] WyirwrkCHOXZRXGPY6383-26-12 18:12:000.4[facility] XdztgdmLXBCBMIYRC4206-91-19 18:12:000.1[facility] XTMATLQFKH4799-10-50 18:12:007.4[facility] ElcolnnJNSQOYVPLL4377-74-20 18:12:00 5.13[facility] BvmuaynLABREIAVDC8415-83-85 18:12:0015.5[facility]annHEMATOLOGY 2019-10-25 18:12:0047.6[facility] SepxzxyUQRMSKDRGI5542-03-17 18:12:0092.9[facility] KqbkwwuZHREVVERVM8631-91-08 18:12:00 Test Item Value Reference Range Interpretation Comments MCH (test code = MCH) 30.2 pg 27.0-31.0 [facility] UgqtfbwSIOKHZJUEJ2202-53-96 18:12:0032.5[facility]annHEMATOLOGY 2019-10-25 18:12:0013.8[facility] HngnfreULFHUTKRBB4452-93-86 18:12:24636Xrjyjzbx WtzccsoAPLXRCHWVT9556-87-39 18:12:006.9[facility] FcnkaopLBYQTRLXJV6748-08-28 18:12:00 Test Item Value Reference Range Interpretation Comments PT (test code = PT) 12.4 s 12.0-14.7 [facility] EvcqhytWVVJCTABDN3108-72-44 18:12:00 Test Item Value Reference Range Interpretation Comments INR (test code = INR) 0.92 1 0.85-1.17 [facility] XomdlyvSHYXOHJYEB3881-96-91 18:12:00 Test Item Value Reference Range Interpretation Comments PTT (test code = PTT) 30.1 s 22.9-35.8 [facility]annSPECIAL FLXQZYODO0364-55-92 18:12:007.2[facility]annURINE AND KOSJR4068-78-20 18:12:00Clear (10/25/19 1:12 PM)[facility] STOOL 2019-10-25 18:12:00 Test Item Value Reference Range Interpretation Comments UA Spec Grav (test code = UA Spec 1.025 1 Grav) [facility] AZZKL1266-55-23 18:12:00 Test Item Value Reference Range Interpretation Comments UA pH (test code = UA pH) 5.0 1 5.0-8.0 [facility] SIBIJ7534-58-26 18:12:00Negative *NA*(10/25/19 1:12 PM) [facility] BRUWU0719-34-13 18:12:00Negative (10/25/19 1:12 PM) [facility] OGFQM4542-84-94 18:12:00Negative (10/25/19 1:12 PM) [facility] TPWQN7932-80-46 18:12:00Negative (10/25/19 1:12 PM) [facility] PLHCR5275-54-75 18:12:002[facility] AND KQRZB2111-64-66 18:12:001[facility]annBACTERIAL - AEPPPUJQ1256-46-68 18:12:00 Negative (10/25/19 1:12 PM)[facility]annBL[facility]OD BANK OYHLNHN9468-09-55 18:12:00 Negative (10/25/19 1:12 PM)[facility]annCHEM JNVLD8474-06-73 18:12:0092 [facility]annCHEM CSETL4857-68-00 18:12:0012[facility]annCHEM PANEL 2019-10-25 18:12:000.83[facility] HermannCHEM WIUAV4327-25-73 18:12:65023Zhxbvgpg HermannCHEM DHSSP4288-17-74 18:12:004.3[facility] HermannCHEM BYDQG1812-81-18 18:12:19262Pxyyhnth HermannCHEM QPSFC5625-52-84 18:12:0029[facility]annCHEM UQNKE9300-10-82 18:12:009.2[facility] HermannCHEM JILTB1641-91-89 18:12:0010.3 [facility]annCHEM WKEME4440-45-88 18:12:0075[facility]annHEMATOLOGY 2019-10-25 18:12:0047.8[facility] YoncobcFVOHSCPEKL2073-34-73 18:12:0045.1[facility] GqktkghKFIYSFMXVY8470-24-62 18:12:005.5[facility] PzdonlpXVHKSLMELL3645-71-96 18:12:001.3[facility] EmkjdpeFMGLFLHLVW5402-64-49 18:12:000.3[facility] GIBOMQZMCZ8967-87-32 18:12:003.5[facility] ZumiccaHNNBGMJYEA5820-13-00 18:12:003.3 [facility] XujquhmRCBUTYDQKW6574-05-70 18:12:000.4[facility]annHEMATOLOGY 2019-10-25 18:12:000.1[facility] RjyqucfBEZZOIKIQC8706-70-09 18:12:007.4[facility] ZgphmbhLLACBUPNVY4951-97-12 18:12:005.13[facility] OcqowcrWMZKRAQICB9478-99-56 18:12:0015.5[facility] BszsmwcRVWCSXLCJF8194-30-42 18:12:0047.6[facility] QDAPTYRDGY4708-09-67 18:12:0092.9[facility] RxcdrjxLHCEOSNFBN8888-78-75 18:12:00 Test Item Value Reference Range Interpretation Comments MCH (test code = MCH) 30.2 pg 27.0-31.0 [facility] RxxjzmlTZYNPUBDZE0166-81-01 18:12:0032.5[facility] HermannHEMATOLOGY 2019-10-25 18:12:0013.8[facility] QdxgywkNEFKPQVMME3298-29-21 18:12:44346Sbjfdupj VybsrzgUTQZKWDJIP9774-74-29 18:12:006.9[facility] RbfbrujUZQTVFMNVU4231-28-75 18:12:00 Test Item Value Reference Range Interpretation Comments PT (test code = PT) 12.4 s 12.0-14.7 [facility] QylpqdeASOWRPOFIL2771-90-05 18:12:00 Test Item Value Reference Range Interpretation Comments INR (test code = INR) 0.92 1 0.85-1.17 [facility] FmhikmtDYKIARSMSF1539-20-27 18:12:00 Test Item Value Reference Range Interpretation Comments PTT (test code = PTT) 30.1 s 22.9-35.8 [facility]annSPECIAL WQAXHUGFF5482-61-02 18:12:007.2[facility]annURINE AND KKEPF1918-34-46 18:12:00Clear (10/25/19 1:12 PM)[facility] STOOL 2019-10-25 18:12:00 Test Item Value Reference Range Interpretation Comments UA Spec Grav (test code = UA Spec 1.025 1 Grav) [facility] TGNBN9217-49-60 18:12:00 Test Item Value Reference Range Interpretation Comments UA pH (test code = UA pH) 5.0 1 5.0-8.0 [facility] AWYRP3662-18-40 18:12:00Negative *NA*(10/25/19 1:12 PM) [facility] JUVEP3913-66-87 18:12:00Negative (10/25/19 1:12 PM) [facility] AIBLU0694-38-05 18:12:00Negative (10/25/19 1:12 PM) [facility] CAHFW0975-46-18 18:12:00Negative (10/25/19 1:12 PM) [facility] BSJGA4453-17-51 18:12:002[facility] XLWFD0467-57-06 18:12:001[facility] RlkelezUMUMYPWARN0288-31-94 17:24:00Not Detected (10/25/19 12:24 PM)[facility] GzwbrlfVHPEPPRMVG5724-81-10 17:24:00Not Detected (10/25/19 12:24 PM)[facility] BzcuohsASQKHUHVCH3801-07-67 16:43:00Not Detected (10/19/19 11:43 AM)[facility] HrqmolwLKEKRNUGVS9429-60-40 16:43:00Not Detected (10/19/19 11:43 AM)[facility] FrandyBLOOD LZSKNGW0277-80-36 22:00:00 Test Item Value Reference Range Interpretation Comments [facility] (test No growth in 5 days code = 1095) BLOOD NHLCWVW1275-13-82 22:00:00 Test Item Value Reference Range Interpretation Comments [facility] (test No growth in 5 days code = 1095) POCT-GLUCOSE FVQVE4775-21-67 12:00:00 Test Item Value Reference Range Interpretation Comments POC-GLUCOSE METER 90 mg/dL 70-110 TESTED AT [address] ([facility]) (test code = [address] [facility] 1538) [id number] POCT-GLUCOSE [id number] 08:25:00 Test Item Value Reference Range Interpretation Comments POC-GLUCOSE METER 103 mg/dL 70-110 TESTED AT [address] ([facility]) (test code [address] [facility] [place] = 1538) [id number] POCT-GLUCOSE [id number] 20:14:00 Test Item Value Reference Range Interpretation Comments POC-GLUCOSE METER 135 mg/dL 70-110 H TESTED AT [address] ([facility]) (test code [address] [facility] [place] = 1538) [id number] POCT-GLUCOSE [id number] 20:13:00 Test Item Value Reference Range Interpretation Comments POC-GLUCOSE METER 101 mg/dL 70-110 TESTED AT [address] ([facility]) (test code [address] [facility] [place] = 1538) [id number] RAD, CHEST, 2 [id number] 16:34:00Reason for exam:->f/u infiltrateFINAL REPORT CHEST, AP [...] abnormalities identified. Signed: Fabien Clarkeport Verified Date/Time: 12/22/2018 16:34:43 Reading Location: [facility] Radiology Reading Room POCT-GLUCOSE [id number] 08:37:00 Test Item Value Reference Range Interpretation Comments POC-GLUCOSE METER 148 mg/dL 70-110 H TESTED AT [facility]) (test code [facility] [place] = 1538) [address] BASIC METABOLIC [id number] 05:01:00 Test Item Value Reference Range Interpretation [...] PATIEN TS. CBC W/PLT COUNT & AUTO TNHIRXOLVJVT3032-37-86 04:38:00 Test Item Value Reference Range Interpretation [...] PERCENT (BEAKER) (test code = 2801) POCT-GLUCOSE [id number] 20:46:00 Test Item Value Reference Range Interpretation Comments POC-GLUCOSE METER 236 mg/dL 70-110 H TESTED AT [address] ([facility]) (test code [facility] [place] = 1538) [id number] POCT-GLUCOSE [id number] 18:27:00 Test Item Value Reference Range Interpretation Comments POC-GLUCOSE METER 100 mg/dL 70-110 TESTED AT [address]) (test code [address] [facility] [place] = 1538) [address] CHEM XRXOF5736-34-02 10:36:002.5[facility] HermannCHEM PRJEY6137-00-14 10:36:003.1 [facility]annCHEM XSAIW4736-41-74 10:36:007.7[facility] HermannCHEM PANEL 2017-06-09 10:36:008.7[facility] HermannCHEM EMBTY1650-67-83 10:36:0024[facility] HermannCHEM XCRLM2608-68-63 10:36:11165Lbgdombc HermannCHEM NNUND0284-23-00 10:36:004.1[facility] HermannCHEM LNJMC5845-30-70 10:36:98305Vnjhffgr HermannCHEM THXGY5449-50-95 10:36:0044[facility] HermannCHEM MCTPH4854-73-27 10:36:000.3 [facility] HermannCHEM MHVZN5297-73-72 10:36:0071[facility] HermannCHEM PANEL 2017-06-09 10:36:003.2[facility] HermannCHEM YDUQA2176-84-89 10:36:0094[facility] HermannCHEM KTUGP6934-87-47 10:36:81458Rakdkfjy HermannCHEM HTWHS6233-17-29 10:36:000.70[facility] HermannCHEM XKPBK2668-87-87 10:36:0012[facility] HermannCHEM BNXBI6503-09-21 10:36:69149Xrykiasm HermannCHEM MKONB2743-77-29 10:36:00 Test Item Value Reference Range Interpretation Comments A/G Ratio (test code = A/G Ratio) 0.7 1 0.7-1.6 [facility]annCHEM NYIIX9292-22-35 10:36:0015.1[facility] HermannCHEM PANEL 2017-06-09 10:36:004.5[facility] HermannCHEM AJPOL2513-67-52 10:36:00 Test Item Value Reference Range Interpretation Comments B/C Ratio (test code = B/C Ratio) 17 1 6-25 [facility] NqshzbtQJAHXOPSNU4543-69-59 10:36:00 Test Item Value Reference Range Interpretation Comments PTT (test code = PTT) 31.3 s 22.9-35.8 [facility]BntlbikBVPOSNDMUS7360-46-83 10:36:00 Test Item Value Reference Range Interpretation Comments INR (test code = INR) 1.04 1 0.85-1.17 [facility] CenterMswujhuOCHUODUXMO9998-25-92 10:36:00 Test Item Value Reference Range Interpretation Comments PT (test code = PT) 13.6 s 12.0-14.7 [facility] IstxvkpQDCJBDOHYA1157-57-46 10:36:000.3[facility] HermannHEMATOLOGY 2017-06-09 10:36:001.3[facility] RvycpysLPQTLOYMPV7055-43-90 10:36:0084.9[facility] OazdkxyLQXHALNMFR7865-91-20 10:36:009.0[facility] DirrwemPCVGDQGUKV5961-54-76 10:36:000.1[facility] ZvxddlbNMZCHMEXGU7955-48-81 10:36:0012.5[facility] TJCMJRKCJR4138-23-70 10:36:002.5[facility] LspxjuqCENQZHDACP7182-59-12 10:36:00 4.13[facility] ErwaropWTIOKKPRKZ8343-08-44 10:36:0010.6[facility] HermannHEMATOLOGY 2017-06-09 10:36:00 Test Item Value Reference Range Interpretation Comments MCH (test code = MCH) 31.4 pg 27.0-31.0 [facility] KcxaxqpNLPMVATKDX4990-18-36 10:36:0012.5[facility] HermannHEMATOLOGY 2017-06-09 10:36:0034.6[facility] KqgkemgDOROAYMHLQ6617-29-74 10:36:0013.0[facility] LjcpxrqNBZKHLEVKP4139-79-32 10:36:0090.7[facility] DvobwcaCTYJNGWOOP2166-76-99 10:36:0037.4[facility] RinqoonYGRUCMMMLX6116-53-43 10:36:007.7[facility] XNMXVBAVTC4957-08-87 10:36:15437Suagoxxm HermannCHEM CLIRV0071-94-38 10:36:002.5 [facility] HermannCHEM MTQYG6130-86-77 10:36:003.1[facility] HermannCHEM PANEL 2017-06-09 10:36:007.7[facility] HermannCHEM SBOEF2711-41-47 10:36:008.7[facility] HermannCHEM OGUJQ2019-78-21 10:36:0024[facility] HermannCHEM SPWGT3912-92-38 10:36:29647Fptxbqzl HermannCHEM SYFZW3804-54-68 10:36:004.1[facility] HermannCHEM RLIZW4174-67-93 10:36:96175Lqkonwiw HermannCHEM OAUIT1471-34-13 10:36:0044 [facility] HermannCHEM HPMPZ9904-06-13 10:36:000.3[facility] HermannCHEM PANEL 2017-06-09 10:36:0071[facility] HermannCHEM XZSKC5152-92-50 10:36:003.2[facility] HermannCHEM KHRSV8551-29-35 10:36:0094[facility] HermannCHEM WZPPK4752-46-28 10:36:67993Mmxpnzys HermannCHEM HPSZU4976-35-77 10:36:000.70[facility] HermannCHEM UXTGX8807-76-70 10:36:0012[facility] HermannCHEM IMVOY2136-83-32 10:36:49471 [facility] HermannCHEM AYWJE6427-99-58 10:36:00 Test Item Value Reference Range Interpretation Comments A/G Ratio (test code = A/G Ratio) 0.7 1 0.7-1.6 [facility] HermannCHEM MTKLC5760-10-68 10:36:0015.1[facility] HermannCHEM PANEL 2017-06-09 10:36:004.5[facility] HermannCHEM OKWDK8241-08-36 10:36:00 Test Item Value Reference Range Interpretation Comments B/C Ratio (test code = B/C Ratio) 17 1 6-25 [facility] SswllgvMFEIEPWERA2389-01-50 10:36:00 Test Item Value Reference Range Interpretation Comments PTT (test code = PTT) 31.3 s 22.9-35.8 [facility] DrpbmtiFUJHCXHSDR1448-77-89 10:36:00 Test Item Value Reference Range Interpretation Comments INR (test code = INR) 1.04 1 0.85-1.17 [facility] BduwggcVZJKDZLGJN0471-52-88 10:36:00 Test Item Value Reference Range Interpretation Comments PT (test code = PT) 13.6 s 12.0-14.7 [facility] BxybuwmQPUIWMIULC3948-75-25 10:36:000.3[facility] HermannHEMATOLOGY 2017-06-09 10:36:001.3[facility] CwhutuzXLXSVNFKQC0355-98-62 10:36:0084.9[facility] HdjirhhJRPMNQQOPZ8236-08-65 10:36:009.0[facility] UhlurkxNCWGMIFSBF4363-28-16 10:36:000.1[facility] XvjvsqgCOZXYMSNUC5870-15-26 10:36:0012.5[facility] VIAVBTGLPO9196-11-69 10:36:002.5[facility] DprzmfyIGXJKLVJTZ3189-15-65 10:36:00 4.13[facility] LbniwpaKDVTDKSOKD0297-66-30 10:36:0010.6[facility] HermannHEMATOLOGY 2017-06-09 10:36:00 Test Item Value Reference Range Interpretation Comments MCH (test code = MCH) 31.4 pg 27.0-31.0 [facility] YvtutakTWLLWAFEHW3451-23-22 10:36:0012.5[facility] HermannHEMATOLOGY 2017-06-09 10:36:0034.6[facility] YsybdkhPYBMJKNQHH4339-70-39 10:36:0013.0[facility] KkmglvyYIMMRAPYJR9552-82-83 10:36:0090.7[facility] WrckckpDGYSNHYXPY6893-43-09 10:36:0037.4[facility] JabrzrcNDTGDEPMXV8840-97-11 10:36:007.7[facility] LWPNMWZMSI1978-27-81 10:36:30310Fuetxzuc HermannCHEM WTFDV3686-50-74 16:16:0080 [facility] HermannCHEM GOJJL5306-44-48 16:16:0010.1[facility] HermannCHEM PANEL 2017-06-08 16:16:0029[facility] HermannCHEM YGZNT1547-47-20 16:16:008.8[facility] HermannCHEM WMXMQ4896-49-45 16:16:004.1[facility] HermannCHEM ZBDWN2197-85-80 16:16:31356Oqyhizfm HermannCHEM JPODI2915-01-34 16:16:81275Ymwmqrwf HermannCHEM GWXQY9749-89-03 16:16:000.80[facility] HermannCHEM BSZWN1281-09-15 16:16:85967 [facility] HermannCHEM OZMHJ6143-99-98 16:16:0010[facility] HermannCHEM PANEL 2017-06-08 16:16:0080[facility] HermannCHEM RUOYI8327-39-88 16:16:0010.1[facility] HermannCHEM LUUTY4909-42-99 16:16:0029[facility] HermannCHEM BJOMO4416-57-55 16:16:008.8[facility] HermannCHEM ZENWS2039-38-77 16:16:004.1[facility] HermannCHEM QHSRT4575-56-80 16:16:10920Fkxyrbeo HermannCHEM BIBMM9008-95-18 16:16:18455 [facility] HermannCHEM REONM4628-53-69 16:16:000.80[facility] HermannCHEM PANEL 2017-06-08 16:16:92800Lpqpxcou HermannCHEM QBFPM0653-13-15 16:16:0010Mem[facility] HomnuiaSYEDNTNGXF5512-87-30 12:20:0013.9[facility] XqgakvrOEYJDBCZOZ3723-75-78 12:20:0041.0[facility] TmnerviGITMHKKJOB9036-17-11 12:20:0011[facility] KYYOBGNYJR6076-65-85 12:20:66617Pknewuve FspvsnqTYLBGTMHGS7660-68-72 12:20:004.0 [facility] QfvvqofUCLLQGXAGH2861-64-42 12:20:24691Grmvnrwi HermannHEMATOLOGY 2017-06-08 12:20:49976Wyygdzjk NdrgyiyUOFASORRST2515-16-60 12:20:0013.9[facility] BjzwkqvUGNBYWIGFX0047-64-50 12:20:0041.0[facility] HlljifxJWBRSCYTTH0064-80-74 12:20:0011[facility] IobzteeKEPCETZGNS4016-19-06 12:20:69450Hbrzqchv [facility] UHHJDQBKMF1169-59-56 12:20:004.0[facility] RbvwqrxDMBUPTGGLE6606-57-24 12:20:38867 [facility] ReitawhFAMCYXSWPD0426-35-34 12:20:90437Xdiccnde HermannBLOOD BANK ZLLWTZK2747-63-04 12:19:00Negative (06/08/17 6:19 AM)[facility] HermannBLOOD BANK KBLFKJF8072-10-86 12:19:00Negative (06/08/17 6:19 AM)[facility] HermannELECTROLYTES 2017-06-03 16:25:007.2[facility] DlgiqsdQUVNHXRSRKIH5646-97-03 16:25:0080[facility] UrolzxkXWFKFVGFDSTQ9570-97-48 16:25:72154Nibjmmsj XwprdvvOJPCPXBUFVKC0019-60-02 16:25:39157Tbvpswyg YpfkljrLYLDWVIWMGNJ0700-52-99 16:25:009.3[facility] LUHTKLGJKEFT2384-89-88 16:25:0035[facility] AyhqimgZQPFLIBBSUBT3571-68-01 16:25:00 5.2[facility] GwxozvkYFPSWHSRQXEW3823-41-15 16:25:000.80[facility] SCTUYAAEKEVK5418-73-80 16:25:007[facility] NqtfqdsRKWNVIMWUIRK7669-75-24 16:25:00 94[facility] CzrhwdkCMQRBGIAWB4623-36-31 16:25:0013.1[facility] HermannHEMATOLOGY 2017-06-03 16:25:00 Test Item Value Reference Range Interpretation Comments MCH (test code = MCH) 30.7 pg 27.0-31.0 [facility] NopswlkOFDLIRAIMO6757-66-07 16:25:0033.4[facility] HermannHEMATOLOGY 2017-06-03 16:25:0092.0[facility] IrnqdgySVRCKPBQGW9130-46-35 16:25:0044.3[facility] GgeunarTDIUWNAUQP9276-18-18 16:25:004.81[facility] IqxitntOTNHWZRSES4667-57-95 16:25:0014.8[facility] MmdgjgoCOURQENGCP5560-04-94 16:25:007.3[facility] QINXKFJNXV8116-76-03 16:25:007.9[facility] FaymdecYRSSDMGHQS6995-06-76 16:25:61585 [facility] YkzqjejRDLSSBUCYT1091-98-74 16:25:000.1[facility] HermannHEMATOLOGY 2017-06-03 16:25:003.2[facility] IcicvlrBQLBHJNFQX1604-78-71 16:25:000.4[facility] KviyggrJLJUWDHAVE8629-69-57 16:25:001.9[facility] HymftlzDGJNIKQXBQ4717-04-99 16:25:003.5[facility] XcbtyzjGEHJOECKAL3649-02-62 16:25:000.5[facility] VFTUCOEOMV3241-37-84 16:25:0047.7[facility] YzepyltMYDVZBHLGO3313-79-82 16:25:00 6.2[facility] BqvyxjrTWXGOSPBNI1696-48-31 16:25:0043.7[facility] HermannELECTROLYTES 2017-06-03 16:25:007.2[facility] GzculskDQKGHQBVAUGC4711-92-06 16:25:0080[facility] OpchubzPKSGFJNFSOIR4394-34-37 16:25:96481Ontiebee CzjxfzaVNTXYGHMLDSX9577-33-31 16:25:28874Fonulcnh UqsiiamZKMAAYKHVSMM3519-58-86 16:25:009.3[facility] SNRLOUWOKAOX2245-17-77 16:25:0035[facility] KwpijbhIPEAFAHUSOOF8840-08-85 16:25:00 5.2[facility] HwudnwzUFEWECTXLDFJ8430-10-91 16:25:000.80[facility] BTTQVMRBDAEC1476-05-41 16:25:007[facility] NvipzquAGNOHRENTGNX7575-11-37 16:25:00 94[facility] MywxlhfMKVDUIHWZX4072-17-22 16:25:0013.1[facility] HermannHEMATOLOGY 2017-06-03 16:25:00 Test Item Value Reference Range Interpretation Comments MCH (test code = MCH) 30.7 pg 27.0-31.0 [facility] TadlhdkCVINMKENWD3553-38-36 16:25:0033.4[facility] HermannHEMATOLOGY 2017-06-03 16:25:0092.0[facility] PvqynwaFZZUYMKWTZ8978-93-08 16:25:0044.3[facility] GfftcpySKFKQUWIZB8314-32-65 16:25:004.81[facility] SqlgwwqAHCKWFZNUN9388-86-40 16:25:0014.8[facility] VgmiqjzFWVPVYKHYE4245-32-38 16:25:007.3[facility] LRIITUIRYX4036-96-88 16:25:007.9[facility] UkhlpxsDWRITAVLKY7874-71-01 16:25:14708 [facility] RcqwfyqHCBGZVBGFU2349-73-98 16:25:000.1[facility] HermannHEMATOLOGY 2017-06-03 16:25:003.2[facility] LrbchilGAFGNCGNQY0319-97-90 16:25:000.4[facility] HdhxntrVATLZELVOQ3028-36-48 16:25:001.9[facility] UwrgdzsNAJBKNXAZK0055-89-27 16:25:003.5[facility] FnoycqrJQIWLQUZBG4842-06-39 16:25:000.5[facility] GCETEDOTDG7285-91-16 16:25:0047.7[facility] XvhrsaiKNODUJWZNG6419-79-94 16:25:00 6.2[facility] YsbhtloKJVOQNQBPW9965-48-65 16:25:0043.7[facility] HermannCHEM PANEL 2014-05-23 11:49:000.7[facility] HermannCHEM SJZJQ5857-53-96 11:49:71940Fkvjmelq HermannCHEM NCGXF4381-39-48 11:49:004.1[facility] HermannCHEM HJNHB7718-65-07 11:49:0010[facility] HermannCHEM FDJCT3628-17-70 11:49:21799Itukwpdg HermannCHEM OWCCM6136-02-89 11:49:0013.1[facility] YabzmzfOJILYEPULA6504-37-78 11:49:00 Test Item Value Reference Range Interpretation Comments MCH (test code = MCH) 31.7 pg 27.0-31.0 [facility] QmiquyzHGWJELZSLD8904-22-69 11:49:0034.3[facility] HermannHEMATOLOGY 2014-05-23 11:49:24517Lhiphlsl KhnxfdzATYHJISLUL8543-53-28 11:49:0012.8[facility] MrchkvtOILKNHBDQM5968-89-31 11:49:008.0[facility] RxvlgdtHNISMPEPJT8792-78-57 11:49:004.33[facility] BekjfapOOPQGFIQXA3408-17-88 11:49:0010.3[facility] GXGAEZIQQX8423-19-40 11:49:0092.2[facility] JyunrujLGZAMTCXAC7233-54-19 11:49:00 40.0[facility] SwdzgygMQSGAAXMRL8745-98-27 11:49:0013.7[facility] HermannHEMATOLOGY 2014-05-23 11:49:000.1[facility] DqhktitPJZWQCNEXM4061-48-52 11:49:0010.9[facility] QuqfvwgXSVLCCAKES3198-47-23 11:49:001.1[facility] ZsmpzqoMCFBMKBZHN8197-83-47 11:49:000.8[facility] MmyklnwSFQJNFGJOY9091-76-89 11:49:009.0[facility] ZHMLDRRJXK2578-79-59 11:49:001.1[facility] EirdtihQIKMJCSXMZ7361-75-42 11:49:000.1 [facility] YrygsogOZEZZZQGFP5688-25-79 11:49:0087.2[facility] HermannCHEM PANEL 2014-05-23 11:49:003.4[facility] HermannCHEM KNAEX7233-93-98 11:49:004.2[facility] HermannCHEM AVREF5897-23-47 11:49:000.8[facility] HermannCHEM QOZUK6420-58-21 11:49:007.6[facility] HermannCHEM XYJGH1064-85-28 11:49:78566Ojbrmzes HermannCHEM EDKYX8503-88-38 11:49:0058[facility] HermannCHEM RSZYB4779-86-20 11:49:0054 [facility] HermannCHEM TYRQG7815-13-13 11:49:000.3[facility] HermannCHEM PANEL 2014-05-23 11:49:000.4[facility] HermannCHEM KCAYN1368-66-03 11:49:000.1[facility] HermannCHEM KYUFL4669-21-37 11:49:001.8[facility] HermannCHEM YMVAV6995-93-78 11:49:0096[facility] HermannCHEM XXGPK9941-68-46 11:49:24309Rvcadigx HermannCHEM KLWJW2706-06-20 11:49:009.2[facility] HermannCHEM NFQDR8178-27-30 11:49:0025 [facility] HermannCHEM XBCUH8403-93-68 11:49:000.7[facility] HermannCHEM PANEL 2014-05-23 11:49:54044Ndxezhss HermannCHEM WVVDJ9933-77-65 11:49:004.1[facility] HermannCHEM CSVWY3737-45-90 11:49:0010Mem[facility] HermannCHEM AJKLU7941-30-97 11:49:11590Dwxtnyun HermannCHEM XQDIE8990-31-82 11:49:0013.1[facility] YVLFAUDNDZ3802-79-08 11:49:00 Test Item Value Reference Range Interpretation Comments MCH (test code = MCH) 31.7 pg 27.0-31.0 [facility] CbocqkrJUXPECTOIH6229-16-85 11:49:0034.3[facility] HermannHEMATOLOGY 2014-05-23 11:49:46555Nghnjsdo XjaxomtWCGCJTJKXQ2422-00-90 11:49:0012.8[facility] EqwwpafCIHRCHIJFK3788-25-34 11:49:008.0[facility] YqlzzcxPZWJPEZROK1050-53-06 11:49:004.33[facility] BmznvkbNWNHACXIFN6200-46-54 11:49:0010.3[facility] UXFZLWFICN7618-02-90 11:49:0092.2[facility] NftdcffNOKVLKBQVQ9687-30-94 11:49:00 40.0[facility] KulizrvCCORVZHAXK8920-88-10 11:49:0013.7[facility] HermannHEMATOLOGY 2014-05-23 11:49:000.1[facility] NmtbgqcJQKGNPUEVK2676-34-24 11:49:0010.9[facility] KpzbwfdMXXBANLBKV6516-93-85 11:49:001.1[facility] MyaufczHRHXCACDDC3721-79-77 11:49:000.8[facility] BgtbjdfKVAIBBFQNI3750-14-83 11:49:009.0[facility] OIOUFFXTHF0121-91-79 11:49:001.1[facility] CrdcvofPMJDSMJNOV3620-55-84 11:49:000.1 [facility] OnrmvucSBYLXQAMMY7020-81-48 11:49:0087.2[facility] HermannCHEM PANEL 2014-05-23 11:49:003.4[facility] HermannCHEM XWEEP2694-56-26 11:49:004.2[facility] HermannCHEM DYAXW0216-20-46 11:49:000.8[facility]annCHEM RXIYE4954-74-52 11:49:007.6[facility]annCHEM SFXJK2405-63-61 11:49:61169Vrlnyame HermannCHEM ZTHWL0109-65-63 11:49:0058[facility]annCHEM OKTHZ1895-79-11 11:49:0054 [facility]annCHE[facility] NYAED3411-40-11 11:49:000.3[facility]annCHEM PANEL 2014-05-23 11:49:000.4[facility]annCHEM QJPRO3240-69-96 11:49:000.1[facility]annCHEM DASZO2846-22-19 11:49:001.8[facility]annCHEM IPDVN3778-42-50 11:49:0096[facility]annCHEM ROJVF7643-30-14 11:49:77195Kbflnhhs HermannCHEM XVJOA1671-42-08 11:49:009.2[facility]annCHEM TMWVC3233-94-65 11:49:0025 [facility]annCHEM NEGLA3909-21-75 20:29:0071[facility]annCHEM PANEL 2014-05-22 20:29:008.4[facility]annCHEM OLFHW6791-31-95 20:29:0012.4[facility]annCHEM SUWZT7434-53-52 20:29:0027[facility]annCHEM XMGBI2810-42-36 20:29:48249Wssxsiiq HermannCHEM XGBAU3924-37-77 20:29:003.4[facility]annCHEM WBQSZ7571-26-39 20:29:22495Bqlbdvre HermannCHEM APMMW3598-47-79 20:29:0013 [facility]annCHEM KLHZI1792-64-68 20:29:78755Xymjdamv HermannCHEM PANEL 2014-05-22 20:29:000.9[facility]annCHEM UCLHZ8338-03-40 20:29:0071[facility]annCHEM MXRMH4448-46-58 20:29:008.4[facility]annCHEM XSIPT4065-01-14 20:29:0012.4[facility]annCHEM BCHDD2551-94-57 20:29:0027[facility]annCHEM CAWXX2705-52-86 20:29:54613Ioeqidgo HermannCHEM ETHUG8725-33-34 20:29:003.4 [facility]annCHE[facility] KTHAK8685-09-22 20:29:16539Zfxnrhjf HermannCHEM PANEL 2014-05-22 20:29:0013[facility]annCHEM VNFKB0974-80-59 20:29:15179Bfevmses HermannCHEM SYDAH0376-06-65 20:29:000.9[facility] HermannBLOOD BANK RESULTS 2014-05-14 16:53:00Negative (05/14/14 10:53 AM)[facility]annHEMATOLOGY 2014-05-14 16:53:007.8[facility] AernpapDUDCFJGHTK6702-85-96 16:53:00 Test Item Value Reference Range Interpretation Comments MCH (test code = MCH) 31.0 pg 27.0-31.0 [facility] XjxnppoCKVARLJYGP5611-85-33 16:53:0034.3[facility] HermannHEMATOLOGY 2014-05-14 16:53:0012.5[facility] OngfyruFOYQEWUZFV7147-33-97 16:53:99494Pjkqykmp PlzetydWJKFBILKPA1503-87-27 16:53:0090.4[facility] AwzfzfoUNQJPNVQLK3555-87-86 16:53:0014.5[facility] EisindaFVEJTNENYR9204-54-04 16:53:004.69[facility] [place] [facility] NQWBKBKWSL2654-65-27 16:53:0042.4[facility] BscqwllRXKFWBRMMR0551-19-02 16:53:00 6.5[facility] IpsbgpkZLFYLPHEDO1045-17-11 16:53:003.1[facility] HermannHEMATOLOGY 2014-05-14 16:53:002.9[facility] AhnylsdDDBWLTBZDN3407-47-08 16:53:000.3[facility] UtpdltaNFCTUMSWLV3230-26-05 16:53:006.4[facility] WduzlfvGHSXCADOMH6217-01-10 16:53:0047.0[facility] AqiwyshDHEQIZGVOQ4815-33-88 16:53:002.0[facility] HPGDUXSUEH2064-69-61 16:53:0044.3[facility] QuhwzksMLRJSOONMJ8037-81-09 16:53:00 0.0[facility] BnranzhTJTUOONGOG5993-49-51 16:53:000.1[facility] HermannHEMATOLOGY 2014-05-14 16:53:000.4[facility] HermannBLOOD BANK AGLJAQC5076-85-69 16:53:00 Negative (05/14/14 10:53 AM)[facility] YacepfrMORWXWZFRK8963-05-31 16:53:007.8 [facility] FnqnujqMROTEHHOUJ0158-16-66 16:53:00 Test Item Value Reference Range Interpretation Comments MCH (test code = MCH) 31.0 pg 27.0-31.0 [facility] GkyrbcbLJHGHQFVGE9816-46-62 16:53:0034.3[facility] HermannHEMATOLOGY 2014-05-14 16:53:0012.5[facility] LkvpaduXLMDDHXWYR0714-77-46 16:53:95104Bzieivry UgtwlwkTJOFZTGPYG7439-51-76 16:53:0090.4[facility] MasphrcLOWJLEMEWI4627-45-74 16:53:0014.5[facility] MrujazfNSXTSDWXJA6057-56-12 16:53:004.69[facility] [place] VDGAOYAUDU6533-35-21 16:53:0042.4[facility] RmquwvuHVWULNOSKP5136-06-08 16:53:00 6.5[facility] NvtifdhJKEHTVHMLC6751-07-12 16:53:003.1[facility] HermannHEMATOLOGY 2014-05-14 16:53:002.9[facility] UwvzfpwRTOGARKQKX1303-39-63 16:53:000.3[facility] WwtqzvyUTWVXFBAZA4120-77-39 16:53:006.4[facility] MqvayhoTWSZKMFGWN4213-38-18 16:53:0047.0[facility] GutphwwXPMTVJFJOK6733-64-39 16:53:002.0[facility] PBPXFDJIJB3424-31-25 16:53:0044.3[facility] ZrunjfyETYHXAWHYI7501-98-11 16:53:00 0.0[facility] ZehsmuqHGTZMUKVKA0677-67-99 16:53:000.1[facility] HermannHEMATOLOGY 2014-05-14 16:53:000.4[facility]
--- NOTE | 2020-12-24 15:06 | RAD REPORT ---
EXAM DESCRIPTION: Nidia Single View12/24/2020 2:56 pm CLINICAL HISTORY: cough COMPARISON: July 2020 FINDINGS: The lungs appear clear of acute infiltrate. The heart is normal size IMPRESSION: No acute abnormalities displayed
[2020-12-24 15:21] LABS: Absolute Lymphocytes (CBC) 3.1 K/uL (0.7-4.9); Basophils % 0.8 % (0-1.3); Hematocrit 44.8 % (36.0-45.0); Lymphocytes % 43.4 % (15.3-44.8); MPV 7.2 fL (7.6-11.3); RBC Red Blood Cell Count 4.95 M/uL (3.86-4.86)
[2020-12-24 15:22] LABS: Protime INR 0.95
[2020-12-24 15:23] LABS: ALT/SGPT 19 U/L (12-78); AST/SGOT 14 U/L (15-37); Albumin 3.8 g/dL (3.4-5.0); Alkaline Phosphatase 111 U/L (45-117); BUN Blood Urea Nitrogen 9 mg/dL (7-18); Bicarbonate 33 mmol/L (21-32); Bilirubin Direct 0.1 mg/dL (0-0.2); Bilirubin Total 0.2 mg/dL (0.2-1.0); Glucose Level 93 mg/dL (74-106); Magnesium 2.5 mg/dL (1.8-2.4); NT PRO-BNP 77 pg/mL (<125); Potassium 3.9 mmol/L (3.5-5.1); Protein, Total 8.1 g/dL (6.4-8.2); Sodium Level 139 mmol/L (136-145); Troponin (Emerg Dept Use Only) < 0.02 ng/mL (0.0-0.045)
--- NOTE | 2020-12-24 18:38 | RAD REPORT ---
EXAM DESCRIPTION: MRI - Brain Wo Cont - 12/24/2020 6:18 pm CLINICAL HISTORY: Headache COMPARISON: 2018 TECHNIQUE: Axial, sagittal, and coronal magnetic resonance images of the brain were obtained. FINDINGS: Mild to moderate signal within periventricular, deep and subcortical white matter probably ischemic changes secondary to small vessel disease Diffusion-weighted/ADC mapping does not reveal evidence of acute infarction. The ventricles are normal caliber. An extra-axial fluid collection is not noted. Fluid within the sinuses/mastoids is not seen IMPRESSION: No acute intracranial abnormality noted
--- NOTE | 2020-12-24 18:51 | ER ---
Nurse's Notes [facility] Name: Kathy Ledesma Age: 65 yrs Sex: Female : 1955 Arrival Date: 12/24/2020 Time: 11:00 Bed 15 Private MD: Diagnosis: Headache;Weakness;Elevated blood-pressure reading, without diagnosis of hypertension Presentation: 12/24 12:23 Chief complaint: Patient states: Lightheaded, weak, high BP, left sided head ache and jl7 eye twitching x 3 days, CP started today at 1120. Coronavirus screen: Client denies travel out of the [place] in the last 14 days. At this time, the client does not indicate any symptoms associated with coronavirus-19. Ebola Screen: No symptoms or risks identified at this time. Initial Sepsis Screen: Does the patient meet any 2 criteria? No. Patient's initial sepsis screen is negative. Does the patient have a suspected source of infection? No. Patient's initial sepsis screen is negative. Risk Assessment: Do you want to hurt yourself or someone else? Patient reports no desire to harm self or others. Onset of symptoms was December 22, 2020. Care prior to arrival: None. 12:23 Method Of Arrival: Wheelchair jl7 12:23 Acuity: ZAK 3 jl7 Historical: - Allergies: 12:26 Cipro PO; jl7 12:26 Codeine; jl7 12:26 Iodinated Contrast Media - IV Dye; jl7 12:26 NSAIDS; jl7 12:26 relafen; jl7 - PMHx: 12:26 spinal stenosis; COPD; CVA; Diabetes - NIDDM; Fibromyalgia; Hypothyroidism; shingles; jl7 - Immunization history:: Client reports receiving the 2nd dose of the Covid vaccine. - Social history:: Smoking status: Patient denies any tobacco usage or history of. Screenin:46 Abuse screen: Denies threats or abuse. Nutritional screening: No deficits noted. ll1 Tuberculosis screening: No symptoms or risk factors identified. 17:50 Fall Risk IV access (20 points). Gait- Weak (10 pts.). Total Sigala Fall Scale indicates ll1 Low Risk Score (25-44 pts). Fall prevention measures have been instituted. Side Rails Up X 2 Frequent Obs/Assesments occuring As available Patient and Family Educated on Fall Prevention Program and strategies. Assessment: 14:30 General: Appears in no apparent distress. Behavior is calm, cooperative, appropriate ll1 for age. Pain: Complains of pain in head Quality of pain is described as aching, Pain began 2-3 days ago. Neuro: Level of Consciousness is awake, alert, obeys commands, Oriented to person, place, time, situation, Appropriate for age [employer] are equal bilaterally Moves all extremities. Full function Gait is Speech is normal, Facial symmetry appears normal, Reports dizziness, headache weakness. Cardiovascular: Reports chest pain, Heart tones S1 S2 Capillary refill < 3 seconds Clubbing of nail beds is absent JVD is absent Patient's skin is warm and dry. Rhythm is regular. Respiratory: Airway is patent Trachea midline Respiratory effort is even, unlabored, Respiratory pattern is regular, symmetrical, Breath sounds are clear bilaterally. GI: Abdomen is round Bowel sounds present X 4 quads. Reports nausea. 15:30 Reassessment: No changes from previously documented assessment. Patient and/or family ll1 updated on plan of care and expected duration. Pain level reassessed. Patient is alert, oriented x 3, equal unlabored respirations, skin warm/dry/pink. 16:30 Reassessment: No changes from previously documented assessment. Patient and/or family ll1 updated on plan of care and expected duration. Pain level reassessed. Patient is alert, oriented x 3, equal unlabored respirations, skin warm/dry/pink. 17:30 Reassessment: No changes from previously documented assessment. Patient and/or family ll1 updated on plan of care and expected duration. Pain level reassessed. to ct via stretcher. 19:38 Reassessment: Patient appears in no apparent distress at this time. Patient is alert, lp1 oriented x 3, equal unlabored respirations, skin warm/dry/pink. Patient states feeling better. Vital Signs: 12:23 BP 138 / 83; Pulse 81; Resp 15; Temp 97.7; Pulse Ox 100% ; Weight 78.93 kg; Height 5 jl7 ft. 2 in. (157.48 cm); Pain 3/10; 17:00 BP 141 / 75; Pulse 79; Resp 16; Pulse Ox 96% on R/A; ll1 19:38 BP 133 / 68; Pulse 80; Resp 15; Pulse Ox 96% on R/A; Pain 0/10; lp1 12:23 Body Mass Index 31.82 (78.93 kg, 157.48 cm) jl7 ED Course: 11:00 Patient arrived in ED. ds1 12:26 Triage completed. jl7 12:26 Arm band placed on right wrist. jl7 12:27 Boyd Tomas MD is Attending Physician. kdr 13:46 Jenni Vera, RN is Primary Nurse. ll1 13:46 Patient placed in an exam room, on a stretcher. ll1 13:46 Patient has correct armband on for positive identification. Bed in low position. Call ll1 light in reach. Side rails up X2. traffic monitor specialist on. Pulse ox on. NIBP on. 14:49 Inserted saline lock: 22 gauge in right antecubital area, using aseptic technique. ll1 Blood collected. 14:56 XRAY Chest (1 view) In Process Unspecified. EDMS 18:12 Brain Wo Cont In Process Unspecified. EDMS 19:38 No provider procedures requiring assistance completed. IV discontinued, No lp1 redness/swelling at site. Pressure dressing applied. Administered Medications: No medications were administered Outcome: 18:51 Discharge ordered by . kdr 19:38 Discharged to home ambulatory. lp1 19:38 Condition: good 19:38 Discharge instructions given to patient, Instructed on discharge instructions, follow up and referral plans. Demonstrated understanding of instructions, follow-up care. 19:38 Patient left the ED. lp1 Signatures: Dispatcher [employer] EDMS Boyd Tomas MD MD [facility] ds[facility] Pooja Mata RN RN lp1 Jordon Gomez RN RN jl7 Jenni Vera, MARQUES RN ll1 Corrections: (The following items were deleted from the chart) 17:49 17:47 General: Appears in no apparent distress. Behavior is calm, cooperative, ll1 appropriate for age, ll1 17:49 17:47 Pain: Complains of pain in head Quality of pain is described as aching, Pain ll1 began 2-3 days ago. ll1 17:49 17:47 Neuro: Level of Consciousness is awake, alert, obeys commands, Oriented to ll1 person, place, time, situation, Appropriate for age [employer] are equal bilaterally Moves all extremities. Full function Gait is Speech is normal, Facial symmetry appears normal, Reports dizziness, headache weakness ll1 17:49 17:47 Cardiovascular: Reports chest pain, Heart tones S1 S2 Capillary refill < 3 ll1 seconds Clubbing of nail beds is absent JVD is absent Patient's skin is warm and dry. Rhythm is regular ll1 17:49 17:47 Respiratory: Airway is patent Trachea midline Respiratory effort is even, ll1 unlabored, Respiratory pattern is regular, symmetrical, Breath sounds are clear bilaterally. ll1 17:49 17:47 GI: Abdomen is round Bowel sounds present X 4 quads. Reports nausea, ll1 ll1
--- NOTE | 2020-12-24 18:51 | EDPHYS ---
Physician Documentation [facility] Name: Kathy Ledesma Age: 65 yrs Sex: Female : 1955 Arrival Date: 12/24/2020 Time: 11:00 Bed 15 Private MD: ED Physician Boyd Tomas HPI: 12/25 08:10 This 65 yrs old Female presents to ER via Wheelchair with complaints of High kdr Blood Pressure. 08:10 The patient has elevated blood pressure and discovered this at home, with a home kdr device. Onset: The symptoms/episode began/occurred gradually, 3 day(s) ago. Modifying factors: The symptoms are aggravated by Nothing, The symptoms are alleviated by Nothing. Associated signs and symptoms: Pertinent positives: headache, Twitching to her left eye. Severity of symptoms: At its worst the blood pressure was mild, 140s mm Hg, in the emergency department the blood pressure is Initially her pressure was in the 130s to 140s but eventually came down to less than 120. The patient has not experienced similar symptoms in the past. The patient has not recently seen a physician. Historical: - Allergies: 12/24 12:26 Cipro PO; jl7 12:26 Codeine; jl7 12:26 Iodinated Contrast Media - IV Dye; jl7 12:26 NSAIDS; jl7 12:26 relafen; jl7 - PMHx: 12:26 spinal stenosis; COPD; CVA; Diabetes - NIDDM; Fibromyalgia; Hypothyroidism; shingles; jl7 - Immunization history:: Client reports receiving the 2nd dose of the Covid vaccine. - Social history:: Smoking status: Patient denies any tobacco usage or history of. ROS: 12/25 08:10 Constitutional: Negative for fever, chills, and weight loss, Eyes: Negative for injury, kdr pain, redness, and discharge, ENT: Negative for injury, pain, and discharge, Neck: Negative for injury, pain, and swelling, Cardiovascular: Negative for chest pain, palpitations, and edema, Respiratory: Negative for shortness of breath, cough, wheezing, and pleuritic chest pain, Abdomen/GI: Negative for abdominal pain, nausea, vomiting, diarrhea, and constipation, Back: Negative for injury and pain, : Negative for injury, bleeding, discharge, and swelling, MS/Extremity: Negative for injury and deformity, Skin: Negative for injury, rash, and discoloration, Psych: Negative for depression, anxiety, suicide ideation, homicidal ideation, and hallucinations, Allergy/Immunology: Negative for hives, rash, and allergies, Endocrine: Negative for neck swelling, polydipsia, polyuria, polyphagia, and marked weight changes, Hematologic/Lymphatic: Negative for swollen nodes, abnormal bleeding, and unusual bruising. Neuro: Positive for headache, Twitching of her left eye. Exam: 08:10 Constitutional: This is a well developed, well nourished patient who is awake, alert, kdr and in no acute distress. Head/Face: Normocephalic, atraumatic. Eyes: Pupils equal round and reactive to light, extra-ocular motions intact. Lids and lashes normal. Conjunctiva and sclera are non-icteric and not injected. Cornea within normal limits. Periorbital areas with no swelling, redness, or edema. Neck: Trachea midline, no thyromegaly or masses palpated, and no cervical lymphadenopathy. Supple, full range of motion without nuchal rigidity, or vertebral point tenderness. No Meningismus. Chest/axilla: Normal chest wall appearance and motion. Nontender with no deformity. No lesions are appreciated. Cardiovascular: Regular rate and rhythm with a normal S1 and S2. No gallops, murmurs, or rubs. Normal PMI, no JVD. No pulse deficits. Respiratory: Lungs have equal breath sounds bilaterally, clear to auscultation and percussion. No rales, rhonchi or wheezes noted. No increased work of breathing, no retractions or nasal flaring. Abdomen/GI: Soft, non-tender, with normal bowel sounds. No distension or tympany. No guarding or rebound. No evidence of tenderness throughout. Back: No spinal tenderness. No costovertebral tenderness. Full range of motion. Skin: Warm, dry with normal turgor. Normal color with no rashes, no lesions, and no evidence of cellulitis. MS/ Extremity: Pulses equal, no cyanosis. Neurovascular intact. Full, normal range of motion. Neuro: Awake and alert, GCS 15, oriented to person, place, time, and situation. Cranial nerves II-XII grossly intact. Motor strength 5/5 in all extremities. Sensory grossly intact. Cerebellar exam normal. Normal gait. Psych: Awake, alert, with orientation to person, place and time. Behavior, mood, and affect are within normal limits. Vital Signs: 12/24 12:23 BP 138 / 83; Pulse 81; Resp 15; Temp 97.7; Pulse Ox 100% ; Weight 78.93 kg; Height 5 jl7 ft. 2 in. (157.48 cm); Pain 3/10; 17:00 BP 141 / 75; Pulse 79; Resp 16; Pulse Ox 96% on R/A; ll1 19:38 BP 133 / 68; Pulse 80; Resp 15; Pulse Ox 96% on R/A; Pain 0/10; lp1 12:23 Body Mass Index 31.82 (78.93 kg, 157.48 cm) jl7 MDM: 18:51 Patient medically screened. kdr 12/25 08:10 Differential diagnosis: hypertensive crisis, Malignant HTN, CVA, intracerebral kdr hemorrhage. Data reviewed: vital signs, nurses notes, lab test result(s), radiologic studies. Counseling: I had a detailed discussion with the patient and/or guardian regarding: the historical points, exam findings, and any diagnostic results supporting the discharge/admit diagnosis, lab results, radiology results, the need for outpatient follow up. ED course: Patient was concerned because she had some similar symptoms prior to several strokes that she had in the past. She also describes some left arm pain during the course of the symptoms. That had resolved on her presentation here. 12/24 14:26 Order name: Basic Metabolic Panel; Complete Time: 15:50 ll1 12/24 14:26 Order name: CBC with Diff; Complete Time: 17:28 ll1 12/24 14:26 Order name: LFT's; Complete Time: 15:50 ll1 12/24 14:26 Order name: Magnesium; Complete Time: 15:50 ll1 12/24 14:26 Order name: NT PRO-BNP; Complete Time: 15:50 ll1 12/24 14:26 Order name: PT-INR; Complete Time: 15:50 ll1 12/24 13:53 Order name: EKG; Complete Time: 13:54 ll1 12/24 13:53 Order name: EKG - Nurse/Tech; Complete Time: 13:53 ll1 12/24 14:26 Order name: Troponin (emerg Dept Use Only); Complete Time: 15:50 ll1 12/24 14:26 Order name: XRAY Chest (1 view); Complete Time: 15:50 1 12/24 14:26 Order name: IV Saline Lock; Complete Time: 14:26 ll1 12/24 14:26 Order name: Labs collected and sent; Complete Time: 14:26 [facility] 12/24 16:39 Order name: Brain Wo Cont; Complete Time: 18:49 EDMS 12/24 14:26 Order name: O2 Per Protocol; Complete Time: 14:26 1 12/24 14:26 Order name: O2 Sat Monitoring; Complete Time: 14: ll1 Administered Medications: No medications were administered Disposition Summary: 12/24/20 18:51 Discharge Ordered Location: Home kdr Problem: new kdr Symptoms: have improved kdr Condition: Stable kdr Diagnosis - Headache kdr - Weakness kdr - Elevated blood-pressure reading, without diagnosis of hypertension kdr Followup: kdr - With: Private Physician - When: 2 - 3 days - Reason: If symptoms return, Further diagnostic work-up, Recheck today's complaints, Continuance of care, Re-evaluation by your physician Discharge Instructions: - Discharge Summary Sheet kdr - General Headache Without Cause kdr - Hypertension, Adult, [id number] kdr - Weakness, [id number] kdr Forms: - Medication Reconciliation Form kdr - Thank You Letter kdr Signatures: Dispatcher [employer] Boyd Taveras MD MD kdr Jordon Gomez RN RN jl7 Jenni Vera RN RN ll1 Corrections: (The following items were deleted from the chart) 12/24 16:40 16:05 MR STROKE PROTOCOL+MRI.RAD.BRZ ordered. EDMS EDMS
[2020-12-24 19:44] VITALS: TEMP 97.7
[2020-12-24 19:46] VITALS: O2SAT 96
[2020-12-24 19:48] VITALS: BP 133/68
== END 2020-12-24 19:38 | disposition home or self-care (01) ==
LOC: ER 10:59
DX: R53.1 Weakness (principal); R03.0 Elevated blood-pressure reading, without diagnosis of hypertension; Z88.1 Allergy status to other antibiotic agents; Z88.5 Allergy status to narcotic agent; Z88.6 Allergy status to analgesic agent; Z88.8 Allergy status to other drugs, medicaments and biological substances; Z91.041 Radiographic dye allergy status
CPT/HCPCS: 36415; 70551; 71045; 80048; 80076; 83735; 83880; 84484; 85025; 85610; 93005; 99284

== ENCOUNTER 2022-09-08 13:06 | Emergency (ER) | payer OTHER ==
--- OUTSIDE RECORDS SUMMARY | 2022-09-08 13:34 | XMS REPORT | Continuity of Care Document ---
:1955 Author Organization [facility] t Address [address] [place] [place] [address] Care Team Providers Name Role Phone Gus Serrano Primary Care Physician [phone] Gus Serrano Attending Clinician Unavailable CHON PERSON Attending Clinician Unavailable CHON PERSON Attending Clinician Unavailable MCKENZIE JOHNSON Attending Clinician Unavailable JAGJIT GUTIERREZ Attending Clinician Unavailable THOSANI, MCKENZIE C Attending Clinician Unavailable ADDY FUCHS K.HTommy Attending Clinician Unavailable RORO GOFF Attending Clinician Unavailable RORO GOFF Attending Clinician Unavailable GUANACO MURRAY Attending Clinician Unavailable GUANACO MURRAY Attending Clinician Unavailable Chon Person Attending Clinician Marcy Pollack MA Attending Clinician Unavailable Jagjit Gutierrez MD Attending Clinician Doctor Unassigned, [place] Attending Clinician Unavailable Agnes Saunders Attending Clinician Shila GARAY, Addy K.H. Attending Clinician ALICE BILLINGSLEY Attending Clinician Unavailable ALICE BILLINGSLEY Attending Clinician Unavailable Agnes Saunders APRN Attending Clinician RAJAN KIRK Attending Clinician Unavailable Lucio CCC-FEEDER CATCHER, Sergio Attending Clinician Unavailable Pritesh CCC-FEEDER CATCHER, Mary Attending Clinician Samuel GARAY, Ada Fernandez Attending Clinician Emma Mcneil Attending Clinician Liang Raman Attending Clinician LIANG RAMAN Attending Clinician Unavailable Anthony Meehan MD Attending Clinician ANTHONY MEEHAN Attending Clinician Unavailable Therapy, [facility] Covid Infusion Attending Clinician Unavailable Shaka Souza MD Attending Clinician SHAKA SOUZA Attending Clinician Unavailable Lilo Horton Attending Clinician LILO ZABALA Attending Clinician Unavailable Alice Billingsley DO Attending Clinician Tara Serrano MD Attending Clinician EMMA MCGEE Attending Clinician Unavailable Maggie Singh MD Attending Clinician Barak Alfaro MD Attending Clinician KRISTOPHER FORD Attending Clinician Unavailable Nurse, [facility] Pob Immunization Attending Clinician Unavailable Kristopher Ford DO Attending Clinician Megha Boyle NP Attending Clinician MEGHA BOYLE Attending Clinician Unavailable Kaden Mccallum MD Attending Clinician KADEN MCCALLUM Attending Clinician Unavailable Lab, Ang - Db Attending Clinician Unavailable Gayle Olvera MA Attending Clinician Unavailable 2, [facility] Lab Attending Clinician Unavailable Anju Araya Attending Clinician ESTUARDO HANNAH Attending Clinician Unavailable , [facility] Vascular Room 1 - Attending Clinician Unavailable JOSE AYALA Attending Clinician Unavailable JOSE AYALA Attending Clinician Unavailable Only, [facility] Test Attending Clinician Unavailable Riccardo Jules MD Attending Clinician Mckenzie Johnson Attending Clinician Jhoana Serrano MD Attending Clinician JHOANA SERRANO Attending Clinician Unavailable Charles Loaiza Attending Clinician Radiology Attending Clinician Unavailable Horace Hair Attending Clinician Therapist, [facility] Respiratory Attending Clinician Unavailable Brannon Sahu Attending Clinician Gus Serrano Attending Clinician MARY KATE HARTMAN Attending Clinician Unavailable Mary Kate Hartman MD Attending Clinician MIKE ROWLEY Attending Clinician Unavailable Gonsalo Sánchez Attending Clinician Ananda Landaverde Attending Clinician Gus Serrano Admitting Clinician Unavailable CHON PERSON VIRAMONTES Admitting Clinician Unavailable Chon Person Viramontes Admitting Clinician JAGJIT GUTIERREZ Admitting Clinician Unavailable ADDY FUCHS Admitting Clinician Unavailable MEGHA BOYLE Admitting Clinician Unavailable KADEN MCCALLUM Admitting Clinician Unavailable Charles Loaiza Admitting Clinician MIKE ROWLEY Admitting Clinician Unavailable Gonsalo Sánchez Admitting Clinician Ananda Landaverde Admitting Clinician Payers Payer Name Policy Type Policy Number Effective Date Expiration Date S billie MEDICARE PART A [id number] 2022-07-14 AND B 00:00:00 [place] [id number] 2015-03-16 MEDICAID 00:00:00 [employer] [facility] [id number] 2022-05-16 [facility] 00:00:00 MEDICA[place] [id number] 2021-01-14 [place] 00:[place]00 MEDICARE PART A [id number] 2014-02-13 \T\ B 00:00:00 [employer] [id number] 2022-05-16 Common 00:00:00 [facility] MEDICARE NOVITAS [id number] 2014-02-13 Common 00:00:00 [facility] MEDICAID [id number] Common [facility] MEDICAID [id number] Common [facility] MEDICARE NOVITAS [id number] 2014-02-13 Common 00:00:00 [facility] - [facility] MEDICARE NOVITAS MB [id number] 2014-02-13 Common 00:00:00 [facility] MEDICAID [id number] Common [facility] MEDICAID [id number] Common [facility] - [facility] MEDICARE NOVITAS [id number] 2014-02-13 Common 00:00:00 [facility] - [facility] MEDICARE NOVITAS MB [id number] 2014-02-13 Common 00:00:00 [facility] MEDICAID [id number] [facility] MEDICAID [id number] [facility] MEDICARE NOVITAS MB [id number] 2014-02-13 Common 00:00:00 [facility] MEDICAID [id number] Common [place] [id number] 2020-05-19 Common Medicare 00:00:00 [facility] - [facility] Complete (HMO) [facility] MEDICAID [id number] [facility] MEDICAID [id number] [facility] MEDICAID [id number] [facility] MEDICAID [id number] [facility] MEDICAID [id number] [facility] MEDICAID [id number] [facility] MEDICARE [id number] 2019-11-14 COMPLETE CHOICE 00:00:00 MEDICAID [id number] [facility] MEDICAID [id number] [facility] MEDICAID [id number] [facility] MEDICAID [id number] [facility] [place] [address] [id number] 2019-10-24 Common HEALTHCARE 00:00:00 [facility] Problems Condition Condition Condition Status Onset Resolution Last Treating Co mments Source Name Details Category Date Date Treatment Clinician Date Loose Loose Disease Active 2021-05 [facility] right right 2-23 Health total knee total knee 00:00: arthroplas arthroplas 00 ty ty Effusion Effusion Disease Active 2021-05 [facility] of right of right 1-18 Health knee joint knee joint 00:00: 00 Breast Breast Disease Active [facility] pain, left pain, left 4-01 it y of 00:00: [place] [facility] Trochanter Trochanter Disease Active U T ic ic 2-18 Health bursitis bursitis 00:00: of left of left 00 hip hip Breast Breast Disease Active [facility] asymmetry asymmetry 8-25 [place] Pain, Pain, Disease Active [facility] joint, joint, 6-10 Health hand, left hand, left 00:00: 00 Pain, Pain, Disease Active [facility] joint, joint, 6-10 Health hand, hand, 00:00: right right 00 Palpitatio Palpitatio Disease Active U T ns ns 6-10 Health 00:00: 00 Community Community Disease Active 2021-0 [facility] acquired acquired 6-10 Health pneumonia pneumonia 00:00: 00 Pneumonia Pneumonia Disease Active [facility] of left of left 6-10 Health lower lobe lower lobe 00:00: due to due to 00 infectious infectious organism organism Pneumonia Pneumonia Disease Active [facility] due to due to 6-10 Health COVID-19 COVID-19 00:00: virus virus 00 Pre-operat Pre-operat Disease Active U T bao exam bao exam 6-10 Health 00:00: 00 Primary Primary Disease Active [facility] localized localized 6-10 Heal th osteoarthr osteoarthr 00:00: itis of itis of 00 pelvic pelvic region and region and thigh thigh Shingles Shingles Disease Active [facility] 6-10 Health 00:00: 00 Snapping Snapping Disease Active [facility] hip, right hip, right 6-10 He alth 00:00: 00 Dyspnea on Dyspnea on Disease Active U T exertion exertion 6-10 Health 00:00: 00 Stenosis Stenosis Disease Active [facility] of carotid of carotid 6-10 He alth artery artery 00:00: 00 Tenosynovi Tenosynovi Disease Active U T tis of tis of 610 Health both hands both hands 00:00: 00 Transient Transient Disease Active UT synovitis, synovitis, 6-10 He alth right hip right hip 00:00: 00 Upper Upper Disease Active UT respirator respirator 6-10 He alth y tract y tract 00:00: infection infection 00 Vitamin B Vitamin B Disease Active UT 12 12 6-10 Health deficiency deficiency 00:00: 00 Weight Weight Disease Active UT loss loss 6-10 Health 00:00: 00 Dysfunctio Dysfunctio Disease Active Overview : [facility] n of n of 6-10 [facility] thyroid thyroid 00:00: g of this 00 note might be different from the original. hypothryo idhypothr yoid Neck pain Neck pain Disease Active UT on right on right 6-10 Health side side 00:00: 00 Primary Primary Disease Active [facility] osteoarthr osteoarthr 6-10 He alth itis of itis of 00:00: right knee right knee 00 Muscle Muscle Disease Active [facility] pain pain 6-10 Health 00:00: 00 Pain in Pain in Disease Active UT left leg left leg 10-23 Health 00:00: 00 Pain in Pain in Disease Active [facility] right leg right leg 10-23 Heal th 00:00: 00 Presence Presence Disease Active [facility] of left of left 10-23 Health artificial artificial 00:00: hip joint hip joint 00 Morbid Morbid Disease Active [facility] obesity obesity 10-23 Health 00:00: 00 Multiple Multiple Disease Active UT joint pain joint pain 10-23 He alth 00:00: 00 Nonrheumat Nonrheumat Disease Active U T ic mitral ic mitral 10-23 valve valve 00:00: regurgitat regurgitat 00 ion ion Sleep Sleep Disease Active UT apnea apnea 10-23 Health 00:00: 00 Class 2 Class 2 Disease Active UT severe severe 10-23 Health obesity obesity 00:00: due to due to 00 excess excess calories calories with with serious serious comorbidit comorbidit y and body y and body mass index mass index (BMI) of (BMI) of 37.0 to 37.0 to 37.9 in 37.9 in adult adult Depression Depression Disease Active U T 10-20 Health 00:00: 00 Seborrheic Seborrheic Disease Active U T dermatitis dermatitis 10-20 He alth of scalp of scalp 00:00: 00 Toe Toe Disease Active UT cyanosis cyanosis 10-20 Health 00:00: 00 Abnormal Abnormal Disease Active UT CXR CXR 10-20 Health 00:00: 00 Acute Acute Disease Active UT non-recurr non-recurr 10-20 He alth ent ent 00:00: maxillary maxillary 00 sinusitis sinusitis Psoriasis Psoriasis Disease Active UT with with 10-20 [facility] arthropath arthropath 00:00: y y 00 Asymptomat Asymptomat Disease Active U T ic ic 10-20 Health menopausal menopausal 00:00: state state 00 Class 2 Class 2 Disease Active UT obesity obesity 10-20 Health 00:00: 00 Chronic Chronic Disease Active UT alcoholic alcoholic 10-20 pancreatit pancreatit 00:00: is is 00 Acute Acute Disease Active UT exacerbati exacerbati 10-20 He alth on of on of 00:00: chronic chronic 00 obstructiv obstructiv e e pulmonary pulmonary disease disease Dizziness Dizziness Disease Active UT 10-20 Health 00:00: 00 Vertigo Vertigo Disease Active UT 10-20 Health 00:00: 00 Dyslipidem Dyslipidem Disease Active U T ia ia 10-20 Health 00:00: 00 Medicare Medicare Disease Active annual annual 10-20 Health wellness wellness 00:00: visit, visit, 00 subsequent subsequent Family Family Disease Active UT history of history of 10-20 He alth ASCVD ASCVD 00:00: (arteriosc (arteriosc 00 lerotic lerotic cardiovasc cardiovasc ular ular disease) disease) History of History of Disease Active U T CVA CVA 10-20 Health (cerebrova (cerebrova 00:00: scular scular 00 accident) accident) without without residual residual deficits deficits History of History of Disease Active U T Christine Christine 10-20 Health fundoplica fundoplica 00:00: tion tion 00 History of History of Disease Active U T transient transient 10-20 [facility] ischemic ischemic 00:00: attack attack 00 Hoarseness Hoarseness Disease Active U T 10-20 Health 00:00: 00 Hospital Hospital Disease Active UT discharge discharge 10-20 Heal follow-up follow-up 00:00: 00 Hyperglyce Hyperglyce Disease Active U T nitin due to nitin due to 10-20 He alth type 2 type 2 00:00: diabetes diabetes 00 mellitus mellitus Hyperlipid Hyperlipid Disease Active U T emia emia 10-20 Health 00:00: 00 Infection Infection Disease Active UT due to due to 10-20 Health 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 00 s s Ischemic Ischemic Disease Active UT stroke stroke 10-20 Health 00:00: 00 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 10-20 He alth cerebrovas cerebrovas 00:00: cular cular 00 disease disease Major Major Disease Active UT depressive depressive 10-20 He alth disorder, disorder, 00:00: single single 00 episode, episode, unspecifie unspecifie d d Mild Mild Disease Active UT intermitte intermitte 6 He alth nt asthma nt asthma 00:00: without without 00 complicati complicati on on Mixed Mixed Disease Active UT anxiety anxiety 6-07 Health and and 00:00: depressive depressive 00 disorder disorder Mild Mild Disease Active UT persistent persistent 6 He alth asthma asthma 00:00: without without 00 complicati complicati on on Obsessive- Obsessive- Disease Active U T compulsive compulsive 607 He alth disorder disorder 00:00: 00 Diabetes Diabetes Disease Active UT 6-07 Health 00:00: 00 Backache Backache Disease Active UT 6-03 Health 00:00: 00 Cervical Cervical Disease Active UT disc disc 6-03 Health displaceme displaceme 00:00: nt nt 00 Cervical Cervical Disease Active UT spinal spinal 6-03 Health stenosis stenosis 00:00: 00 Cervical Cervical Disease Active UT disc disc 6-03 Health displaceme displaceme 00:00: nt nt 00 Arthrofibr Arthrofibr Disease Active U T osis of osis of 5-14 Health total knee total knee 00:00: replacemen replacemen 00 t t Chronic Chronic Disease Active UT pain of pain of 5-14 Health right knee right knee 00:00: 00 Limp Limp Disease Active 0 UT 5-14 Health 00:00: 00 Arthrofibr Arthrofibr Disease Active U T osis of osis of 3-25 Health total knee total knee 00:00: arthroplas arthroplas 00 ty, ty, subsequent subsequent encounter encounter Hip pain Hip pain Disease Active UT associated associated 3-25 He alth with with 00:00: recalled recalled 00 total hip total hip arthroplas arthroplas ty ty hardware hardware UNK UNK Diagnosis Active 2020-11-13 Mem oria Active 07-07 10:03:00 l 07/07/2020 00:00: Kiko sanchez [facility] 00 [place] RT KNEE RT KNEE Diagnosis Active 2019-052020-04-29 Jas DJD DJD 06-24 08:18:00 l Active 00:00: [place] 04/23/2020 00 [facility] Arthritis Arthritis Disease Active 2019-05 UT of right of right 2-08 Health knee knee 00:00: 00 History of History of Disease Active 2019- U T arthroplas arthroplas 2-08 He alth ty of ty of 00:00: right knee right knee 00 Presence Presence Disease Active 2019-05 UT of right of right 2-08 Health artificial artificial 00:00: knee joint knee joint 00 Greater Greater Disease Active 2019-05 UT trochanter trochanter 0-02 He alth ic ic 00:00: bursitis bursitis 00 of both of both hips hips Right knee Right knee Disease Active 2019-05 U T pain pain 0-02 Health 00:00: 00 Arthropath Arthropath Disease Active 2019- U T y of both y of both 0-02 Heal th knees knees 00:00: 00 Pain due Pain due Disease Active 2019-05 UT to total to total 0-02 Health right knee right knee 00:00: replacemen replacemen 00 t t Right knee Right knee Disease Active 2019-05 U T pain pain 0-02 Health 00:00: 00 History of History of Disease Active 2020- U T total total 7-28 Health right hip right hip 00:00: replacemen replacemen 00 t t CLINIC CLINIC Diagnosis Active 2019-2020-01-07 Me ferreira VISIT VISIT 10-30 09:28:00 l Active 00:00: [place] 10/31/2019 00 [facility] M16.11 M16.11 Diagnosis Active 2019-2020-01-16 Me moria Active 10-22 15:51:00 l 2019 00:00: Kiko sanchez 00 [place] Epigastric Epigastric Disease Active 2020- U T pain pain - Health 00:00: 00 EPIGASTRIC EPIGASTRI Diagnosis Active 2019-10-31 Memoria PAIN C PAIN 10-10 12:59:00 l Active 00:00: [place] 10/11/2019 00 [facility] VIRTUAL VIRTUAL Diagnosis Active 2019-10-31 Memoria VISIT- VISIT- 10-09 12:57:00 l PHONE PHONE 00:00: [place] VISIT VISIT 00 Active 10/10/2019 [facility] Pancreatit Pancreatit Disease Active 2020- U T is is 3-31 Health 00:00: 00 PHONE CALL PHONE Diagnosis Active 2020-01-23 Memoria - NEW PT CALL - NEW 08-13 15:30:00 l VISIT - PT VISIT - 00:00: Carly nn PANCREATIT PANCREATIT 00 IS IS Active 08/14/2019 [facility] M51.16 - M51.16 - Diagnosis Active 2019-07-12 Memoria INTERVERTE INTERVERTE 2 09:53:00 l BRAL DISC BRAL DISC 00:01: Herm kash DISORDERS DISORDERS 00 Active 06/22/2019 ZAYNAB [place] Primary Primary Disease Active UT osteoarthr osteoarthr 2-07 He alth itis of itis of 00:00: right hip right hip 00 Arthritis Arthritis Disease Active UT of right of right 207 Health hip hip 00:00: 00 Interverte Interverte Disease Active U T bral disc bral disc 2-07 Heal th disorders disorders 00:00: with with 00 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 Displaceme Displaceme Disease Active U T nt of nt of 07 Health lumbar lumbar 00:00: disc with disc with 00 radiculopa radiculopa thy thy Acute Acute Disease Active UT right-side right-side 2-07 He alth d back d back 00:00: pain with pain with 00 sciatica sciatica Pain in Pain in Disease Active UT right hip right hip 2-06 Heal th 00:00: 00 SOB SOB Disease Active [facility] (shortness (shortness 8-08 [place] k[place] of breath) of breath) 00:00: Me dical 00 Center Pneumonia Pneumonia Disease [facility] Osteopenia Osteopenia Disease Active U T of spine of spine 403 Health 00:00: 00 LUMBAR LUMBAR Diagnosis Active 2017-06-09 Me moria L3-4 L3-4 05-26 11:26:00 l CYPTIC CYPTIC 00:00: [place] MASS MASS 00 Active 05/26/2017 [place] N/A N/A Diagnosis Active 2017-06-03 Mem oria Active 05-26 09:39:00 l 05/26/2017 00:00: Kiko sanchez 00 [place] NAOMI NAOMI Disease Active 2016-05 DC (obstructi (obstructi 2-12 He alth ve sleep ve sleep 00:00: apnea) apnea) 00 Transient Transient Disease Active DC cerebral cerebral 4-13 Health ischemia ischemia 00:00: 00 Urinary Urinary Disease Active DC tract tract 4-13 Health infection infection 00:00: 00 Weakness Weakness Disease Active DC 4-13 Health 00:00: 00 Prediabete Prediabete Disease Active 2015-05 U T s s 0-04 Health 00:00: 00 Low IGF-1 Low IGF-1 Disease Active DC level level 9-06 Health 00:00: 00 Diabetes Diabetes Disease Active 2013-05 DC mellitus mellitus 2-30 Health 00:00: 00 Cervical Cervical Disease Active 2013-05 DC stenosis stenosis 2-24 Health (uterine (uterine 00:00: cervix) cervix) 00 723.0 723.0 Diagnosis Active 2013-052014-06-10 Mem oria CERVICAL CERVICAL 2-24 09:28:00 l STENOSIS STENOSIS 00:00: Kiko sanchez Active 00 05/08/2014 [facility] Primary Primary Disease Active 2013-05 DC hypothyroi hypothyroi 2-16 He alth dism dism 00:00: 00 724.5, 724.5, Diagnosis Active 2013-052014-06-10 Me moria 723.1, 723.1, 2-04 09:27:00 l 722.0, 722.0, 00:00: [place] 722.10, 722.10, 00 722.81 722.81 Active 04/18/2014 [facility] Restless Restless Disease Active DC legs legs 5-11 Health syndrome syndrome 00:00: 00 Rheumatic Rheumatic Disease Active DC fever fever 5-11 Health 00:00: 00 Essential Essential Disease Active DC hypertensi hypertensi 5-11 He alth on on 00:00: 00 [id number] Type 2 Problem Common diabetes Spirit mellitus - [facility] with [facility] long-term current use of insulin [id number] Statin Problem Common intoleranc Spirit e - [facility] Hypothyroi Hypothyroi Problem C ommon dism dism Spirit - [facility] COPD - Chronic Problem Common Chronic obstructiv Spiri t obstructiv e - CHI e pulmonary St pulmonary disease, [facility] disease unspecifie Medic al d COPD Center type Chronic Chronic Problem Common pancreatit alcoholic Spi rit is pancreatit - CHI is [facility] Asthma Asthma Problem Common [facility] - [facility] Allergic Allergic Problem Commo n rhinitis rhinitis Spirit - [facility] Diabetes Diabetes Problem Commo n mellitus DMII Spirit without without - CHI complicati complicati St on [facility] Osteoarthr Osteoarthr Problem C ommon itis itis Spirit - [facility] Vitamin Vitamin B Problem Commo n B12 12 Spirit deficiency deficiency - [facility] (non St anemic) [facility] [id number] Arthritis Problem Com mon with Spirit psoriasis - [facility] Diabetic Diabetic Problem Commo n neuropathy neuropathy Sp curtis [facility] [id number] Primary Problem Commo n osteoarthr Spirit itis of - CHI right hip [facility] Cataract Cataract Problem Commo n Spirit - [facility] Depression Depression Problem C ommon Spirit - [facility] Ecchymosis Ecchymosis Problem C ommon [facility] - [facility] [id number] Controlled Problem Co mmon type 2 Spirit diabetes - CHI mellitus [facility] complicati Medica l on, Center without long-term current use of insulin [id number] Moderate Problem Commo n major Spirit depression - CHI , single [facility] [id number] Osteoarthr Problem Co mmon itis of Spirit lumbar - CHI spine, St unspecifie [facility] d spinal Medical osteoarthr Center itis complicati on status [id number] Acquired Problem Comm on hypothyroi Spirit dism - [facility] [id number] History of Problem Co mmon CVA with Spirit residual - CHI deficit [facility] Degenerati Degenerati Problem C ommon on of ve disc Spirit cervical disease, - [facility] Generalize Generalize Problem C ommon d d Spirit abdominal abdominal - CH I pain pain [facility] Seasonal Seasonal Problem Commo n allergy allergies Spirit - [facility] Gastroesop Gastroesop [facility] hageal hageal Spirit reflux reflux - CHI disease disease [facility] NAFLD - Fatty Problem Common Nonalcohol liver Spirit ic fatty disease, - CHI liver nonalcohol St disease ic [facility] Medical Center Spinal Spinal Problem Common stenosis stenosis Spirit of lumbar of - [facility] region lumbosacra [facility] [id number] Growth Problem Common hormone Spirit deficiency - [facility] Migraine Migraine Problem Commo n Spirit - [facility] [id number] Depression Problem Com mon with Spirit anxiety - [facility] Fibromyalg Fibromyalg Problem C ommon ia ia Spirit - [facility] [id number] Constipati Problem Com mon on, Spirit unspecifie - CHI d constipati [facility] [id number] Body mass Problem Com mon index [facility] (BMI) - [facility] 36.0-36.9, [facility] [id number] Morbid Problem Common (severe) Spirit obesity - [facility] due to [facility] Mixed Mixed Problem Common hyperlipid hyperlipid Sp curtis emia emia [facility] 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 Unilateral Unilatera Problem 2019-11-02 Memoria primary l primary 22:30:40 l osteoarthr osteoarthr He rmann itis, itis, right hip right hip 11/02/2019 [facility] Type 2 Type 2 Problem 2017-09-15 Jaylan elvin diabetes diabetes 16:24:33 l mellitus mellitus Kiko sanchez with with hyperglyce hyperglyce nitin nitin 09/15/2017 [facility] Fibromyalg Fibromyal Problem 2017-09-15 Memoria ia rodriguez 16:24:33 l 09/15/2017 Kiko sanchez [facility] Chronic Chronic Problem 2017-09-15 Me moria obstructiv obstructiv 16:24:33 l Garret pulmonary pulmonary disease, disease, unspecifie unspecifie d d 09/15/2017 [facility] Major Major Problem 2017-09-15 Memor ia depressive depressive 16:24:33 l disorder, disorder, Herm kash single single episode, episode, unspecifie unspecifie d d 09/15/2017 [facility] Hypothyroi Hypothyro Problem 2017-09-15 Memoria dism, idism, 16:24:33 l unspecifie unspecifie He rmann d d 09/15/2017 [facility] Final: Final: Problem 2014-05-25 Mem oria 05/25/2014 11:44:36 l [facility] Osteoarthr Osteoarth Problem Active 2020-10-03 Memoria itis of ritis of 22:25:09 l knee knee Frandy (disorder) (disorder) Active Problem 10/03/2020 [facility] UNILATERAL UNILATERA Diagnosis Active 2020-01-16 Memoria PRIMARY L PRIMARY 15:51:00 l OSTEOARTHR OSTEOARTHR He r[place] ITIS, ITIS, RIGHT RIGHT Active [facility] BACKACHE BACKACHE Diagnosis Active 2014-06-10 Memoria NOS NOS Active 09:27:00 l [facility] CERVICALGI CERVICALG Diagnosis Active 2014-06-10 Memoria A IA Active 09:27:00 l [facility] CERVICAL CERVICAL Diagnosis Active 2014-06-10 Memoria DISC DISC 09:27:00 l DISPLACMNT DISPLACMNT He rmann Active [facility] CERVICAL CERVICAL Diagnosis Active 2014-06-10 Memoria SPINAL SPINAL 09:28:00 l STENOSIS STENOSIS Kiko n Active [facility] OTHER OTHER Diagnosis Active 2017-06-09 Mem oria BURSAL BURSAL 11:26:00 l CYST, CYST, Frandy UNSPECIFIE UNSPECIFIE D SITE D SITE Active [facility] Rheumatic Rheumatic Problem Resolve 1976-2020-10-03 2020-10-03 Memoria fever fever d 05-16 22:25:09 22:25:09 l (disorder) (disorder) 00:00: He rmann Resolved 00 05/16/1976 Problem 10/03/2020 [facility] History of Past Illness Condition Condition Condition Status Onset Resolution Last Treating Co mments Source Name Details Category Date Date Treatment Clinician Date Other Other Problem 2017-09-15 2017-09-15 M emoria bursal bursal 06-16 16:24:33 16:24:33 l cyst, cyst, 04:21: [place] other site other site 07 8 09/15/2017 [facility] Allergies, Adverse Reactions, Alerts Allergy Allergy Status Severity Reaction(s) Onset Inactive Treating Comm ents Source Name Type Date Date Clinician Topirama Allergy Active [facility] te to 10-16 Health substanc 00:00: e 00 Diclofen Allergy Active [facility] ac to 10-16 Health substan 00:00: e 00 Nsaids Propensi Active Other (See Lethargic M ethodi (Non-Alexsander ty to Comments) 12-21 , flu [facility]idal adverse 00:00: like [facility]osp[facility] Anti-Inf reaction 00 syptoms l lammator s to y Drug) drug Iodine Propensi Active Methodi ty to 12-21 st adverse 00:00: Hospita reaction 00 l s to drug Levoflox Propensi Active Method i acin ty to 12-21 st adverse 00:00: Hospita reaction 00 l s to drug Morphine Propensi Active Method i ty to 12-21 st adverse 00:00: Hospita reaction 00 l s to drug Nsaids Propensi Active Other (See Lethargic M ethodi (Non-Alexsander ty to Comments) 12-21 , flu [facility] roidal adverse 00:00: like Hospita Anti-Inf reaction 00 syptoms l lammator s to y Drug) drug Nabumeto Propensi Active Method i ne ty to 12-21 st adverse 00:00: Hospita reaction 00 l s to drug Ciproflo Propensi Active Method i xacin ty to 12-21 st adverse 00:00: Hospita reaction 00 l s to drug Codeine Propensi Active Methodi ty to 12-21 st adverse 00:00: Hospita reaction 00 l s to drug Ciproflo [facility]ensi [facility]: [facility] reaction [facility] Center s Codeine Propensi [facility] 12[facility]21 [facility] adverse 00:00: Medical reaction 00 Center s Iodine Propensi [facility] 12[facility]21 [facility] Iodide adverse 00:00: Medical Containi reaction 00 Center ng s Products Levoflox Propensi Active [facility] to 12-21 [facility] adverse 00:00: Medical reaction 00 Center s Nsaids Propensi Active [facility] (Non-[facility] to 12-21 [facility] roidal adverse 00:00: Medical Anti-Inf reaction 00 Center lammator s y Drug) Nabumeto Propensi Active [facility] ty to 12-21 [facility] adverse 00:00: Medical reaction 00 Center s Nsaids Propensi Active [facility] (Non-[facility] to 12-21 [facility] roidal adverse 00:00: Medical Anti-Inf reaction 00 Center lammator s y Drug) Nabumeto Allergy Active 2016-05 Other [facility] ne to 0-05 reaction( Health substanc 00:00: s): Hives e 00 Ciproflo Drug Active 2016-05 Other [facility] xacin Allergy 0-05 reaction( Health Hcl 00:00: s): flu 00 like symptoms Fentanyl Allergy Active 2016-05 Other [facility] to 0-05 reaction( Health substanc 00:00: s): e 00 Hives/Bj h Nsaids Allergy Active Other Patient [facility] to 824 states Health substanc 00:00: that its e 00 cause immune system issuesLet hargic, flu like syptomsLe thargic, flu like syptomsPa tient states that its cause immune system issuesLet hargic, flu like syptomsLe thargic, flu like syptoms Ciproflo Allergy Active Hives UT xacin to 01-06 Health substanc 00:00: e 00 Levoflox Allergy Active Hives Other UT acin to 01-06 reaction( Health substanc 00:00: s): flu e 00 like symptoms Nsaids Propensi Active Other - See Patient Un pamela (Non-Alexsander ty to comments 01-06 states ity of roidal adverse 00:00: that its [place] Anti-Inf reaction 00 cause Medica l lammator s immune Branch y Drug) system issues CIPROFLO DRUG Active Hives Univers XACIN INGREDI 01-06 ity of 00:00: [place] 00 Medical Branch CODEINE DRUG Active Other-Cmnt Unive rs INGREDI 01-06 ity of 00:00: [place] 00 Medical Branch IODINE DRUG Active Hives Univers INGREDI 01-06 ity of 00:00: [place] 00 Medical Branch LEVOFLOX DRUG Active Hives Univers ACIN INGREDI 01-06 ity of 00:00: [place] 00 Medical Branch MORPHINE DRUG Active Hallucinates Un pamela INGREDI 01-06 ity of 00:00: [place] 00 Medical Branch NSAIDS Drug Active Other-Cmnt Univer s (NON-ALEXSANDER Class 8-24 ity of ROIDAL 00:00: [place] ANTI-INF 00 Medical LAMMATOR Branch Y DRUG) Nsaids Propensi Active Other - See Patient Un pamela (Non-Alexsander ty to comments 8-24 states ity of roidal adverse 00:00: that its [place] Anti-Inf reaction 00 cause Medica l lammator s immune Branch y Drug) system issues Ciproflo Propensi Active Hives Univer s xacin ty to 8-24 ity of adverse 00:00: [place] reaction 00 Medical s Branch Iodine Propensi Active Hives Univers ty to 8-24 ity of adverse 00:00: [place] reaction 00 Medical s Branch Levoflox Propensi Active Hives Univer s acin ty to 8-24 ity of adverse 00:00: [place] reaction 00 Medical s Branch Morphine Allergy Active Unknown 2004-05 UT to 0-28 Health substanc 00:00: e 00 Codeine Allergy Active Unknown 2004-05 Slows UT to 0-28 heart Health substanc 00:00: rate e 00 downSlows heart rate down 463 Drug Active Unknown Common allergy [facility] Morphine Morphine Active Unknown Commo n [facility] iodine iodine Active Jas Wise Social History Social Habit Start Date Stop Date Quantity Comments Source Gender identity 2022-03-05 Identifies as Method ist 08:41:26 female gender Hospital (finding) History of Tobacco [facility] - Use [facility] History [facility] Health Alcohol Frequency History [facility] Health Alcohol Std Drinks History [facility] Health Alcohol Binge Sexual orientation Method ist Hospital Alcohol intake 2022-08-05 2022-08-05 Ex-drinker [facility] 00:00:00 00:00:00 (finding) Exposure to 2022-07-25 2022-08-04 Not sure [facility] SARS-CoV-2 (event) 00:00:00 10:21:00 Cigarette 2022-01-01 2022-01-01 [facility] pack-years 00:00:00 00:00:00 Tobacco use and 2022-01-01 2022-01-01 Smokeless tobacco [facility] exposure 00:00:00 00:00:00 non-user Alcohol Comment 2021-06-24 2021-06-24 Socialy [facility] 00:00:00 00:00:00 Social History 2014-05-14 2014-05-14 [facility] Cristy guillory 17:26:34 17:26:34 Sex [birth year] DRAKE Ortiz 00:00:00 [facility] Smoking Status Start Date Stop Date Source Tobacco smoking consumption unknown [facility] Never smoked tobacco [facility] Medications Ordered Filled Start Stop Current Ordering Indication Dosage Frequency Signature Comments Components Source Medication Medication Date Date Medication? Clinician (SIG) Name Name levothyroxi Yes [id number] TAKE 1 [facility] [place] 112 mcg 3-18 TABLET BY ity of tablet 00:00: MOUTH ONCE DAILY IN [facility] THE Branch MORNING levothyroxi Yes [id number] TAKE 1 Univers ne 112 mcg 3-18 TABLET BY ity of tablet 00:00: MOUTH ONCE DAILY IN [facility] THE [place] MORNING HYDROcodone 2022- Yes [id number] 1{tbl} Take 1 UT -acetaminop 3-16 05-16 tablet by He alth hen ([place]) 00:00: 04:59 mouth 10-325 MG 00 :00 every 4 tablet (four) hours if needed for severe pain (Pain). naloxone 2023- Yes [id number] 4mg Administer UT (Narcan) 4 07-15- 1 spray (4 He alth mg/0.1 mL 00:00: 05:59 mg total) nasal spray 00 :00 into affected nostril(s) if needed for opioid reversal. May repeat every 2-3 minutes if needed, alternatin g nostrils, until medical assistance becomes available. naloxone 2023- Yes [id number] 4mg Administer UT (Narcan) 4 07-15- 1 spray (4 He alth mg/0.1 mL 00:00: 05:59 mg total) nasal spray 00 :00 into affected nostril(s) if needed for opioid reversal. May repeat every 2-3 minutes if needed, alternatin g nostrils, until medical assistance becomes available. naloxone 2023- Yes [id number] 4mg Administer UT (Narcan) 4 07-15- 1 spray (4 He alth mg/0.1 mL 00:00: 05:59 mg total) nasal spray 00 :00 into affected nostril(s) if needed for opioid reversal. May repeat every 2-3 minutes if needed, alternatin g nostrils, until medical assistance becomes available. HYDROcodone 2022- Yes [id number] 1{tbl} Take 1 UT -acetaminop 3-02 05-02 tablet by He alth hen ([place]) 00:00: 04:59 mouth 10-325 MG 00 :00 every 4 tablet (four) hours if needed for severe pain (Pain). HYDROcodone 2022- Yes [id number] 1{tbl} Take 1 UT -acetaminop 3-02 05-02 tablet by He alth hen ([place]) 00:00: 04:59 mouth 10-325 MG 00 :00 every 4 tablet (four) hours if needed for severe pain (Pain). HYDROcodone 2022- Yes [id number] 1{tbl} Take 1 UT -acetaminop 3-02 05-02 tablet by He alth hen ([place]) 00:00: 04:59 mouth 10-325 MG 00 :00 every 4 tablet (four) hours if needed for severe pain (Pain). sulfamethox 2022- Yes [id number] 1{tbl} Q.5D Take 1 UT azole-trime 3-02 03-10 104 tablet by He alth thoprim 00:00: 05:59 mouth in (Bactrim 00 :00 the DS) 800-160 morning MG tablet and 1 tablet in the evening. Do all this for 7 days. sulfamethox 2022- Yes [id number] 1{tbl} Q.5D Take 1 UT azole-trime 3-02 03-10 104 tablet by He alth thoprim 00:00: 05:59 mouth in (Bactrim 00 :00 the DS) 800-160 morning MG tablet and 1 tablet in the evening. Do all this for 7 days. oxyCODONE-a Yes [id number] 1{tbl} Take 1 UT cetaminophe 2-08 tablet by Hea lth n 00:00: mouth (Percocet) 00 every 4 10-325 MG (four) tablet hours if needed (pain) for up to 60 doses. oxyCODONE-a Yes [id number] 1{tbl} Take 1 UT cetaminophe 2-08 tablet by Hea lth n 00:00: mouth (Percocet) 00 every 4 10-325 MG (four) tablet hours if needed (pain) for up to 60 doses. oxyCODONE-a Yes [id number] 1{tbl} Take 1 UT cetaminophe 2-08 tablet by Hea lth n 00:00: mouth (Percocet) 00 every 4 10-325 MG (four) tablet hours if needed (pain) for up to 60 doses. oxyCODONE-a Yes [id number] 1{tbl} Take 1 UT cetaminophe 2-08 tablet by Hea lth n 00:00: mouth (Percocet) 00 every 4 10-325 MG (four) tablet hours if needed (pain) for up to 60 doses. oxyCODONE-a Yes [id number] 1{tbl} Take 1 UT cetaminophe 2-08 tablet by Hea lth n 00:00: mouth (Percocet) 00 every 4 10-325 MG (four) tablet hours if needed (pain) for up to 60 doses. Enoxaparin 2022- Yes [id number] 40mg QD Inject 0.4 UT Sodium 06-22 02-16 mL (40 mg Health (Lovenox) 00:00: 05:59 total) as 40 MG/0.4ML 00 :00 directed 1 solution (one) time prefilled each day syringe for 8 days. ondansetron 2022- Yes [id number] 4mg Take 1 UT (Zofran) 4 06-22 02-15 tablet (4 Hea lth MG tablet 00:00: 05:59 mg total) 00 :00 by mouth every 8 (eight) hours if needed for nausea or vomiting for up to 7 days. empaglifloz Yes [id number] 10mg Take 1 Univers in 2-01 tablet by ity of ([place] 00:[place] 10 mg 00 the Medical morning. Branch empaglifloz Yes [id number] 10mg Take 1 Univers in 2-01 tablet by ity of ([place]) 00:[place]: [place] mg 00 the Medical morning. Branch empaglifloz 3-0 Yes [id number] 10mg Take 1 Univers in 2-01 tablet by ity of ([place]) 00:00: [place] 10 mg 00 the Medical morning. Branch empaglifloz 2023-0 Yes [id number] 10mg Take 1 Univers in 2-01 tablet by ity of ([place]) 00:00: mouth [place] 10 mg 00 the Medical morning. Branch empaglifloz 3-0 Yes [id number] 10mg Take 1 Univers in 2-01 tablet by ity of ([place]) 00:00: [place] 10 mg 00 the Medical morning. Branch ACCU-CHEK 3-0 Yes Use to [employer] GUIDE ME 1-30 check ity of GLUCOSE MTR 00:00: blood [place] Misc 00 glucose 1x Medical daily. DX Branch E11.65 blood sugar 2022-0 Yes Use as Univ ers diagnostic 1-30 directed ity o f (ACCU-CHEK 00:00: [place] GUIDE TEST 00 Medical STRIPS) Branch strip ACCU-CHEK 2022-0 Yes Use to [employer] SOFTCLIX 1-30 check ity of LANCETS 00:00: blood [place] Misc 00 glucose 1x Medical daily. DX Branch E11.65 ACCU-CHEK 3-0 Yes Use to [employer] GUIDE ME 1-30 check ity of GLUCOSE MTR 00:00: blood [place] Misc 00 glucose 1x Medical daily. DX Branch E11.65 blood sugar 2022-0 Yes Use as Univ ers diagnostic 1-30 directed ity o f (ACCU-CHEK 00:00: [place] GUIDE TEST 00 Medical STRIPS) Branch strip ACCU-CHEK 3-0 Yes Use to [employer] SOFTCLIX 1-30 check ity of LANCETS 00:00: blood [place] Misc 00 glucose 1x Medical daily. DX Branch E11.65 ACCU-CHEK 3-0 Yes Use to Univer s GUIDE ME 1-30 check ity of GLUCOSE MTR 00:00: blood [place] Misc 00 glucose 1x Medical daily. DX Branch E11.65 blood sugar 2022-0 Yes Use as Univ ers diagnostic 1-30 directed ity o f (ACCU-CHEK 00:00: [place] GUIDE TEST 00 Medical STRIPS) Branch strip ACCU-CHEK 3-0 Yes Use to [employer] SOFTCLIX 1-30 check ity of LANCETS 00:00: blood [place] Misc 00 glucose 1x Medical daily. DX Branch E11.65 ACCU-CHEK 3-0 Yes Use to [employer] GUIDE ME 1-30 check ity of GLUCOSE MTR 00:00: blood [place] Misc 00 glucose 1x Medical daily. DX Branch E11.65 blood sugar 2022-0 Yes Use as Univ ers diagnostic 1-30 directed ity o f (ACCU-CHEK 00:00: [place] GUIDE TEST 00 Medical STRIPS) Branch strip ACCU-CHEK 2022-0 Yes Use to [employer] 1-30 check ity of LANCETS 00:00: blood [place] Misc 00 glucose 1x Medical daily. DX Branch E11.65 ACCU-CHEK 3-0 Yes Use to [employer] GUIDE ME 1-30 check ity of GLUCOSE MTR 00:00: blood [place] Misc 00 glucose 1x Medical daily. DX Branch E11.65 blood sugar 2022-0 Yes Use as Univ ers diagnostic 1-30 directed ity o f (ACCU-CHEK 00:00: [place] GUIDE TEST 00 Medical STRIPS) Branch strip ACCU-CHEK 3-0 Yes Use to [employer] SOFTCLIX 1-30 check ity of LANCETS 00:00: blood [place] Misc 00 glucose 1x Medical daily. DX Branch E11.65 ACCU-CHEK 3-0 Yes Use to [employer] GUIDE ME 1-30 check ity of GLUCOSE MTR 00:00: blood [place] Misc 00 glucose 1x Medical daily. DX Branch E11.65 blood sugar 2022-0 Yes Use as Univ ers diagnostic 1-30 directed ity o f (ACCU-CHEK 00:00: [place] GUIDE TEST 00 Medical STRIPS) Branch strip ACCU-CHEK 3-0 Yes Use to [employer] 1-30 check ity of LANCETS 00:00: blood [place] Misc 00 glucose 1x Medical daily. DX Branch E11.65 ACCU-CHEK 3-0 Yes Use to [employer] GUIDE ME 1-30 check ity of GLUCOSE MTR 00:00: blood [place] Misc 00 glucose 1x Medical daily. DX Branch E11.65 blood sugar 2023-0 Yes Use as Univ ers diagnostic 1-30 directed ity o f (ACCU-CHEK 00:00: [place] GUIDE TEST 00 Medical STRIPS) Branch strip ACCU-CHEK 2022-0 Yes Use to [employer] SOFTCLIX 1-30 check ity of LANCETS 00:00: blood [place] Misc 00 glucose 1x Medical daily. DX Branch E11.65 ACCU-CHEK 2022-0 Yes Use to [employer] GUIDE ME 1-30 check ity of GLUCOSE MTR 00:00: blood [place] Misc 00 glucose 1x Medical daily. DX Branch E11.65 blood sugar Yes Use as Univ ers diagnostic -30 directed ity o f (ACCU-CHEK 00:00: [place] GUIDE TEST 00 Medical STRIPS) Branch strip ACCU-CHEK 0 Yes Use to [employer] SOFTCLIX 1-30 check ity of LANCETS 00:00: blood [place] Misc 00 glucose 1x Medical daily. DX Branch E11.65 ACCU-CHEK 2022-0 Yes Use to [employer] GUIDE ME 1-30 check ity of GLUCOSE MTR 00:00: blood [place] Misc 00 glucose 1x Medical daily. DX Branch E11.65 blood sugar 0 Yes Use as Univ ers diagnostic -30 directed ity o f (ACCU-CHEK 00:00: [place] GUIDE TEST 00 Medical STRIPS) Branch strip ACCU-CHEK 2022-0 Yes Use to [employer] SOFTCLIX 1-30 check ity of LANCETS 00:00: blood [place] Misc 00 glucose 1x Medical daily. DX Branch E11.65 citalopram 2022- No take one UT (CeleXA) 40 05-31 tablet by He alth MG tablet 14:32: 00:00 mouth once 07 :00 daily glucose 2022- No USE 1 UT blood (True 05-31 STRIP TO Hea lth Metrix 14:32: 00:00 CHECK Blood 07 :00 GLUCOSE Glucose TWICE Test) test DAILY strip citalopram 2022- No take one UT (CeleXA) 40 05-31 tablet by He alth MG tablet 14:32: 00:00 mouth once 07 :00 daily glucose 2022- No USE 1 UT blood (True 05-31 STRIP TO [facility] Metrix 14:32: 00:00 CHECK Blood 07 :00 GLUCOSE Glucose TWICE Test) test DAILY strip ursodiol 2023- No [id number] 300mg Q.5D Take 1 U T (Actigall) 05-31 capsule Healt h 300 MG 00:00: 05:59 (300 mg capsule 00 :00 total) by mouth in the morning and 1 capsule (300 mg total) in the evening. ursodiol 2023- No [id number] 300mg Q.5D Take 1 U T (Actigall) 05-31 capsule Healt h 300 MG 00:00: 05:59 (300 mg capsule 00 :00 total) by mouth in the morning and 1 capsule (300 mg total) in the evening. ursodiol No [id number] 300mg Q.5D Take 1 U T (Actigall) 05-31 capsule Healt h 300 MG 00:00: 05:59 (300 mg capsule 00 :00 total) by mouth in the morning and 1 capsule (300 mg total) in the evening. ursodiol 2023- No [id number] 300mg Q.5D Take 1 U T (Actigall) 05-31 capsule Healt h 300 MG 00:00: 05:59 (300 mg capsule 00 :00 total) by mouth in the morning and 1 capsule (300 mg total) in the evening. ursodiol 2023- No [id number] 300mg Q.5D Take 1 U T (Actigall) 05-31 capsule Healt h 300 MG 00:00: 05:59 (300 mg capsule 00 :00 total) by mouth in the morning and 1 capsule (300 mg total) in the evening. ursodiol 2023- No [id number] 300mg Q.5D Take 1 U T (Actigall) 05-31 capsule Healt h 300 MG 00:00: 05:59 (300 mg capsule 00 :00 total) by mouth in the morning and 1 capsule (300 mg total) in the evening. ursodiol 2023- No [id number] 300mg Q.5D Take 1 U T (Actigall) 05-31 capsule Healt h 300 MG 00:00: 05:59 (300 mg capsule 00 :00 total) by mouth in the morning and 1 capsule (300 mg total) in the evening. pancrelipas 2021-05- No [id number] 2{capsu Take 2 UT e, 06-24 le} capsules Health Lip-Prot-Am 00:00: 05:59 by mouth yl, 00 :00 in the (Zenpep) morning [id number] and 2 units capsules capsule at noon delayed-rel and 2 ease capsules particles in the capsule evening. Take with meals. Take with each meal/snack . Blood 2021-05- No one UT Glucose 06-21 Health Monitoring 10:36: 00:00 Suppl 08 :00 (FreeStyle Lite) device ursodiol 2021-05- No [id number] 300mg Q.5D Take 1 U T (Actigall) 06-21 capsule Healt h 300 MG 00:00: 05:59 (300 mg capsule 00 :00 total) by mouth in the morning and 1 capsule (300 mg total) in the evening. pancrelipas 2021-05- No [id number] 1{capsu Take 1 UT e, 06-21 le} capsule by Health Lip-Prot-Am 00:00: 05:59 mouth if yl, (Creon) 00 :00 needed for [id number] snacks. 0 units capsule delayed-rel ease particles capsule ursodiol 2021-05- No [id number] 300mg Q.5D Take 1 U T (Actigall) 06-21 capsule Healt h 300 MG 00:00: 05:59 (300 mg capsule 00 :00 total) by mouth in the morning and 1 capsule (300 mg total) in the evening. LEVOTHYROXI 2021-05 Yes [id number] TAKE 1 [facility] [place] 112 mcg 1-28 TABLET BY ity of tablet 00:00: MOUTH ONCE 00 DAILY IN [facility] MORNING LEVOTHYROXI 2021-05 Yes [id number] TAKE 1 [facility] [place] 112 mcg 1-28 TABLET BY ity of tablet 00:00: MOUTH ONCE 00 DAILY IN [facility] MORNING LEVOTHYROXI 2021-05 Yes [id number] TAKE 1 [facility] [place] 112 mcg 1-28 TABLET BY ity of tablet 00:00: MOUTH ONCE [place] 00 DAILY IN [facility] LEVOTHYROXI 2021-05 Yes [id number] TAKE 1 [facility] [place] 112 mcg 1-28 TABLET BY ity of tablet 00:00: MOUTH ONCE [place] 00 DAILY IN [facility] LEVOTHYROXI 2021-05 Yes [id number] TAKE 1 [facility] [place] 112 mcg 1-28 TABLET BY ity of tablet 00:00: MOUTH ONCE [place] 00 DAILY IN [facility] LEVOTHYROXI 2021-05 Yes [id number] TAKE 1 [facility] [place] 112 mcg 1-28 TABLET BY ity of tablet 00:00: MOUTH ONCE [place] 00 DAILY IN [facility] LEVOTHYROXI 2021-05 Yes [id number] TAKE 1 [facility] [place] 112 mcg 1-28 TABLET BY ity of tablet 00:00: MOUTH ONCE [place] 00 DAILY IN [facility] LEVOTHYROXI 2021-05 Yes [id number] TAKE 1 [facility] [place] 112 mcg 1-28 TABLET BY ity of tablet 00:00: MOUTH ONCE [place] 00 DAILY IN [facility] LEVOTHYROXI 2021-05 Yes [id number] TAKE 1 [facility] [place] 112 mcg 1-28 TABLET BY ity of tablet 00:00: MOUTH ONCE [place] 00 DAILY IN [facility] LEVOTHYROXI 2021-05 Yes [id number] TAKE 1 [facility] [place] 112 mcg 1-28 TABLET BY ity of tablet 00:00: MOUTH ONCE [place] 00 DAILY IN [facility] LEVOTHYROXI 2021-05 Yes [id number] TAKE 1 [facility] [place] 112 mcg 1-28 TABLET BY ity of tablet 00:00: MOUTH ONCE [place] 00 DAILY IN [facility] LEVOTHYROXI 2021-05- No [id number] TAKE 1 [facility] [place] 112 mcg 1-28 03-18 TABLET BY ity of tablet 00:00: 00:00 MOUTH ONCE [place] 00 :00 DAILY IN [facility] Loratadine 2021-05 Yes 1 (one) UT 10 MG 05-16 time each Health capsule 11:12: day at the 42 same time. Blood 2021-05 Yes one UT Glucose 05-16 Health Monitoring 11:12: Suppl 42 (FreeStyle Lite) device citalopram 2021-05 Yes take one UT (CeleXA) 40 05-16 tablet by Hea lth MG tablet 11:12: mouth once 42 daily glucose 2021-05 Yes USE 1 UT blood (True - STRIP TO Heal th Metrix 11:12: CHECK Blood 42 GLUCOSE Glucose TWICE Test) test DAILY for strip 90 glucose 2021-05 Yes USE 1 UT blood (True - STRIP TO Heal th Metrix 11:12: CHECK Blood 42 GLUCOSE Glucose TWICE Test) test DAILY strip Loratadine 2021-05 Yes 1 (one) UT 10 MG 1- time each Health capsule 11:12: day at the 42 same time. Blood 2021-05 Yes one UT Glucose 05-16 Health Monitoring 11:12: Suppl 42 (FreeStyle Lite) device citalopram 2021-05 Yes take one UT (CeleXA) 40 1- tablet by Hea lth MG tablet 11:12: mouth once 42 daily glucose 2021-05 Yes USE 1 UT blood (True 05-16 STRIP TO Heal th Metrix 11:12: CHECK Blood 42 GLUCOSE Glucose TWICE Test) test DAILY for strip 90 glucose 2021-05 Yes USE 1 UT blood (True 05-16 STRIP TO Heal Metrix 11:12: CHECK Blood 42 GLUCOSE Glucose TWICE Test) test DAILY strip Loratadine 2021-05 Yes 1 (one) UT 10 MG - time each Health capsule 11:12: day at the 42 same time. Blood 2021-05 Yes one UT Glucose 05-16 Health Monitoring 11:12: Suppl 42 (FreeStyle Lite) device citalopram 2021-05 Yes take one UT (CeleXA) 40 1-01 tablet by Hea lth MG tablet 11:12: mouth once 42 daily glucose 2021-05 Yes USE 1 UT blood (True - STRIP TO Heal th Metrix 11:12: CHECK Blood 42 GLUCOSE Glucose TWICE Test) test DAILY for strip 90 glucose 2021-05 Yes USE 1 UT blood (True - STRIP TO Heal th Metrix 11:12: CHECK Blood 42 GLUCOSE Glucose TWICE Test) test DAILY strip Loratadine 2021-05 Yes 1 (one) UT 10 MG 1-01 time each Health capsule 11:12: day at the 42 same time. citalopram 2021-05 Yes take one UT (CeleXA) 40 1-01 tablet by Hea lth MG tablet 11:12: mouth once 42 daily glucose 2021-05 Yes USE 1 UT blood (True - STRIP TO Heal th Metrix 11:12: CHECK Blood 42 GLUCOSE Glucose TWICE Test) test DAILY for strip 90 glucose 2021-05 Yes USE 1 UT blood (True - STRIP TO [facility]al th Metrix 11:12: CHECK Blood 42 GLUCOSE Glucose TWICE Test) test DAILY strip Loratadine 2021-05 Yes 1 (one) UT 10 MG 1-01 time each Health capsule 11:12: day at the 42 same time. citalopram 2021-05 Yes take one UT (CeleXA) 40 1-01 tablet by Hea lth MG tablet 11:12: mouth once 42 daily glucose 2021-05 Yes USE 1 UT blood (True - STRIP TO Heal th Metrix 11:12: CHECK Blood 42 GLUCOSE Glucose TWICE Test) test DAILY for strip 90 glucose 2021-05 Yes USE 1 UT blood (True - STRIP TO [facility]al th Metrix 11:12: CHECK Blood 42 GLUCOSE Glucose TWICE Test) test DAILY strip Loratadine 2021-05 Yes 1 (one) UT 10 MG 1-01 time each Health capsule 11:12: day at the 42 same time. citalopram 2021-05 Yes take one UT (CeleXA) 40 1-01 tablet by Hea lth MG tablet 11:12: mouth once 42 daily glucose 2021-05 Yes USE 1 UT blood (True - STRIP TO Heal th Metrix 11:12: CHECK Blood 42 GLUCOSE Glucose TWICE Test) test DAILY for strip 90 glucose 2021-05 Yes USE 1 UT blood (True - STRIP TO [facility]al th Metrix 11:12: CHECK Blood 42 GLUCOSE Glucose TWICE Test) test DAILY strip Loratadine 2021-05 Yes 1 (one) UT 10 MG 1-01 time each Health capsule 11:12: day at the 42 same time. glucose 2021-05 Yes USE 1 UT blood (True - STRIP TO Heal th Metrix 11:12: CHECK Blood 42 GLUCOSE Glucose TWICE Test) test DAILY for strip 90 Loratadine 2021-05 Yes 1 (one) UT 10 MG 1-01 time each Health capsule 11:12: day at the 42 same time. glucose 2021-05 Yes USE 1 UT blood (True - STRIP TO Heal th Metrix 11:12: CHECK Blood 42 GLUCOSE Glucose TWICE Test) test DAILY for strip 90 Loratadine 2021-05 Yes 1 (one) UT 10 MG 1-01 time each Health capsule 11:12: day at the 42 same time. glucose 2021-05 Yes USE 1 UT blood (True -01 STRIP TO Heal th Metrix 11:12: CHECK Blood 42 GLUCOSE Glucose TWICE Test) test DAILY for strip 90 Loratadine 2021-05 Yes 1 (one) UT 10 MG 1-01 time each Health capsule 11:12: day at the 42 same time. glucose 2021-05 Yes USE 1 UT blood (True 1-01 STRIP TO Heal th Metrix 11:12: CHECK Blood 42 GLUCOSE Glucose TWICE Test) test DAILY for strip 90 Loratadine 2021-05 Yes 1 (one) UT 10 MG - time each Health capsule 11:12: day at the 42 same time. glucose 2021-05 Yes USE 1 UT blood (True -01 STRIP TO Heal th Metrix 11:12: CHECK Blood 42 GLUCOSE Glucose TWICE Test) test DAILY for strip 90 Loratadine 2021-05 Yes 1 (one) UT 10 MG 1-01 time each Health capsule 11:12: day at the 42 same time. glucose 2021-05 Yes USE 1 UT blood (True -01 STRIP TO Heal th Metrix 11:12: CHECK Blood 42 GLUCOSE Glucose TWICE Test) test DAILY for strip 90 Loratadine 2021-05 Yes 1 (one) UT 10 MG 1-01 time each Health capsule 11:12: day at the 42 same time. glucose 2021-05 Yes USE 1 UT blood (True -01 STRIP TO Heal th Metrix 11:12: CHECK Blood 42 GLUCOSE Glucose TWICE Test) test DAILY for strip 90 dicyclomine 2021-05- No [id number] 20mg Q.5D Take 1 UT (Bentyl) 20 05-16 tablet (20 H ealth MG tablet 00:00: 05:59 mg total) 00 :00 by mouth in the morning and 1 tablet (20 mg total) in the evening. pancrelipas 2021-05- No [id number] 2{capsu Q.[id number] Take 2 UT e, 05-16 le} [id number] capsules Heal th Lip-Prot-Am 00:00: 05:59 3D by mouth 3 yl, (Creon) 00 :00 (three) [id number] times a 0 units day if capsule needed for delayed-rel snacks. ease particles capsule rifAXIMin 2021-05- No [id number] 550mg Q.[id number] Take 1 UT (Xifaxan) 05-1616 [id number] tablet H ealth 550 MG 00:00: 05:59 3D (550 mg tablet 00 :00 total) by mouth in the morning and 1 tablet (550 mg total) at noon and 1 tablet (550 mg total) in the evening. Do all this for 14 days. blood sugar 2021-05 Yes Q.5D 2 (two) Met [facility] diagnostic 0-[address] strips 11:12: day. Hospita strip test 26 l strips citalopram 2021-05 Yes 40mg QD Take 1 Metho di (CeleXA) 40 0-27 tablet (40 st MG tablet 11:09: mg total) Hos amirah 34 by mouth l daily. docusate 2021-05 Yes 1{tbl} Q24H Take 1 Metho di sodium 100 0-[address] mg capsule 11:09: mouth Hospit a 34 daily. l Creon 2021-05 Yes Methodi 36,000-114, 0-12 st 000- 00:00: Hospita 180,000 00 l unit capsule,del ayed release(DR/ EC) pancrelipas 2021-05- No [id number] 2{capsu Take 2 UT e, 0-12 03-16 le} capsules Health Lip-Prot-Am 00:00: 00:00 by mouth yl, (Creon) 00 :00 in the [id number] morning 0 units and 2 capsule capsules delayed-rel at noon ease and 2 particles capsules capsule in the evening. Take with meals. Cequa 0.09 2021-05 Yes Methodi % 0-08 st dropperette 00:00: Hospit a 00 l Loratadine 2021-05 Yes 1 (one) UT 10 MG 0-03 time each Health capsule 10:45: day at the 28 same time. Blood 2021-05 Yes one UT Glucose 0-03 Health Monitoring 10:45: Suppl 28 (FreeStyle Lite) device citalopram 2021-05 Yes take one UT (CeleXA) 40 0-03 tablet by Hea lth MG tablet 10:45: mouth once 28 daily glucose 2021-05 Yes USE 1 UT blood (True 0-03 STRIP TO Heal th Metrix 10:45: CHECK Blood 28 GLUCOSE Glucose TWICE Test) test DAILY for strip 90 glucose 2021-05 Yes USE 1 UT blood (True 0-03 STRIP TO Heal th Metrix 10:45: CHECK Blood 28 GLUCOSE Glucose TWICE Test) test DAILY strip Albuterol 2021-05- No 1 ml as UT Sulfate 2.5 0-03 10-03 needed Healt h MG/0.5ML 10:44: 00:00 nebulizer 50 :00 solution Albuterol 2021-05- No 1 ml as UT Sulfate 2.5 0-03 10-03 needed Healt h MG/0.5ML 10:44: 00:00 nebulizer 50 :00 solution Alcohol 2021-05 No as UT Swabs 0-03 03 directed Health (Alcohol 10:44: 00:00 Prep) pads 49 :00 Alcohol 2021-05 No as UT Swabs 0-03 03 directed Health (Alcohol 10:44: 00:00 Prep) pads 49 :00 aspirin 2021-05- No 1 (one) UT (ASPIRIN) 0-03 10-03 time each Heal th 81 MG 10:44: 00:00 day at the chewable 49 :00 same time. tablet Glucose 2021-05- No Q12H every 12 UT Blood 0-03 10 (twelve) Health (BLOOD 10:44: 00:00 hours. GLUCOSE 49 :00 TEST ) Glucose 2021-05 No one UT Blood (COOL 0-03 02-15 Health BLOOD 10:44: 00:00 GLUCOSE 49 :00 TEST STRIPS ) Blood 2021-05- No one n/s UT Glucose 0-03 02-15 use as Health Calibration 10:44: 00:00 directed (GLUCOMETER 49 :00 for 90 DEX HIGH days CONTROL ) Lancets 2021-05- No Q12H every 12 UT Super Thin 0-03 10-03 (twelve) Heal th 28G misc 10:44: 00:00 hours. 49 :00 Lancets 2021-05 No one UT Super Thin 0-03 10- Health 28G misc 10:44: 00:00 49 :00 loratadine 2021-05- No Take by UT (Claritin 0-03 10- mouth. Health Reditabs) 5 10:44: 00:00 MG tablet 49 :00 dispersible dissolvable tablet albuterol 2021-05- No Q6H every 6 UT (5 MG/ML) 0-02-15 (six) Health 0.5% 10:44: 00:00 hours. nebulizer 49 :00 solution Alcohol 2021-05- No as UT Swabs 0- 10 directed Health (Alcohol 10:44: 00:00 Prep) pads 49 :00 aspirin 2021-05 No 1 (one) UT (ASPIRIN) 0-03 10-03 time each Heal th 81 MG 10:44: 00:00 day at the chewable 49 :00 same time. tablet Blood 2021-05- No Q12H every 12 UT Glucose-BP 0-03 10- (twelve) Heal th Monitor 10:44: 00:00 hours. device 49 :00 Glucose 2021-05 No one UT Blood (COOL 0-03 10 Health BLOOD 10:44: 00:00 GLUCOSE 49 :00 TEST STRIPS ) citalopram 2021-05- No 1 (one) UT (CeleXA) 10 0-03 10-03 time each He alth MG/5ML 10:44: 00:00 day at the solution 49 :00 same time. folic acid 2021-05- No TAKE 1 UT (Folvite) 1 0-03 10-03 TABLET BY He alth mg/mL 10:44: 00:00 MOUTH ONCE solution 49 :00 DAILY glimepiride 2021-05- No 1 (one) UT (Amaryl) 2 0-03 10-03 time each Hea lth MG tablet 10:44: 00:00 day at the 49 :00 same time. Lancets 2021-05- No Q12H every 12 UT Super Thin 0-03 10-03 (twelve) Heal th 28G misc 10:44: 00:00 hours. 49 :00 Blood 2021-05- No one UT Glucose 0-03 10-03 Health Calibration 10:44: 00:00 (GLUCOMETER 49 :00 DEX HIGH CONTROL ) Lancets 2021-05- No one UT Super Thin 0-03 10-03 Health 28G misc 10:44: 00:00 49 :00 Levothyroxi 2021-05- No 1 (one) UT ne Sodium 0-03 10-03 time each Heal th 112 MCG/ML 10:44: 00:00 day at the solution 49 :00 same time. HYDROcodone 2021-05 No UT -acetaminop 0-03 10- Health hen ([place]) 10:44: 00:00 10-325 MG 49 :00 tablet HYDROcodone 2021-05- No [place] UT -acetaminop 0-03 10 [facility] hen ([place]) 10:44: 00:00 10-325 MG 49 :00 tablet HYDROcodone 2021-05- No [place] UT -acetaminop 0-03 02-15 [facility] hen ([place]) 10:44: 00:00 10-325 MG 49 :00 tablet Alirocumab 2021-05 No 1 ml UT (Praluent) 0-03 02-15 [facility] 75 MG/ML 10:44: 00:00 solution 49 :00 auto-inject or simvastatin 2021-05 No 1 (one) UT (Zocor) 5 0-03 10-03 time each Heal th MG tablet 10:44: 00:00 day at the 49 :00 same time. Glucose 2021-05- No USE 1 UT Blood (TRUE 0-03 02-15 STRIP TO [facility] METRIX 10:44: 00:00 CHECK BLOOD 49 :00 GLUCOSE GLUCOSE TWICE TEST ) DAILY Cholecalcif 2021-05- No UT mirian 0-03 10- Health (Vitamin D) 10:44: 00:00 10 MCG/ML 49 :00 liquid Cholecalcif 2021-05- No Vitamin D UT mirian 0-03 10-03 Health (Vitamin D) 10:44: 00:00 10 MCG/ML 49 :00 liquid atorvastati 2021-05- No 1 (one) UT n (Lipitor) 0-03 10-03 time each He alth 10 MG 10:44: 00:00 day at the tablet 49 :00 same time. Cholecalcif 2021-05 No not UT mirian 0-02-15 defined Health (Vitamin D) 10:44: 00:00 125 MCG 49 :00 (5000 UT) capsule docusate 2021-05 1{tbl} Take 1 UT sodium 002-15 tablet by Health (Colace) 10:44: 00:00 mouth. 100 MG 49 :00 tablet empaglifloz 2021-05 1 tablet U T in 0-02-15 Health (Jardiance) 10:44: 00:00 10 MG 49 :00 levothyroxi 2021-05 tablet U T ne 02-15 on an Health (Synthroid, 10:44: 00:00 empty Levoxyl) 49 :00 stomach in 112 MCG the tablet morning Tofacitinib 2021-05 11mg Take 11 mg UT Citrate ER 02-15 by mouth. Hea lth 11 MG 10:44: 00:00 tablet 49 :00 sustained-r elease 24 hour Alcohol 2021-05 No as UT Swabs 002-15 directed Health (Alcohol 10:44: 00:00 Prep) pads 49 :00 Alcohol 2021-05 No as UT Swabs 002-15 directed Health (Alcohol 10:44: 00:00 Prep) pads 49 :00 aspirin 2021-05 No 1 (one) UT (ASPIRIN) 002-15 time each Heal th 81 MG 10:44: 00:00 day at the chewable 49 :00 same time. tablet Glucose 2021-05- No Q12H every 12 UT Blood 002-15 (twelve) Health (BLOOD 10:44: 00:00 hours. GLUCOSE 49 :00 TEST ) Glucose 2021-05 No one UT Blood (COOL 002-15 Health BLOOD 10:44: 00:00 GLUCOSE 49 :00 TEST STRIPS ) Blood 2021-05 No one n/s UT Glucose 002-15 use as Health Calibration 10:44: 00:00 directed (GLUCOMETER 49 :00 for 90 DEX HIGH days CONTROL ) Lancets 2021-05- No Q12H every 12 UT Super Thin 0-03 10-03 (twelve) Heal th 28G misc 10:44: 00:00 hours. 49 :00 Lancets 2021-05- No one UT Super Thin 0-03 10-03 Health 28G misc 10:44: 00:00 49 :00 loratadine 2021-05- No Take by UT (Claritin 0-03 10 mouth. Health Reditabs) 5 10:44: 00:00 MG tablet 49 :00 dispersible dissolvable tablet albuterol 2021-05- No Q6H every 6 UT (5 MG/ML) 0-02-15 (six) Health 0.5% 10:44: 00:00 hours. nebulizer 49 :00 solution Alcohol 2021-05- No as UT Swabs 0-03 10 directed Health (Alcohol 10:44: 00:00 Prep) pads 49 :00 aspirin 2021-05 No 1 (one) UT (ASPIRIN) 0-03 10-03 time each Heal th 81 MG 10:44: 00:00 day at the chewable 49 :00 same time. tablet Blood 2021-05- No Q12H every 12 UT Glucose-BP 0-03 10- (twelve) Heal th Monitor 10:44: 00:00 hours. device 49 :00 Glucose 2021-05 No one UT Blood (COOL 0-03 10 Health BLOOD 10:44: 00:00 GLUCOSE 49 :00 TEST STRIPS ) citalopram 2021-05- No 1 (one) UT (CeleXA) 10 0-03 10-03 time each He alth MG/5ML 10:44: 00:00 day at the solution 49 :00 same time. folic acid 2021-05- No TAKE 1 UT (Folvite) 1 0-03 10-03 TABLET BY He alth mg/mL 10:44: 00:00 MOUTH ONCE solution 49 :00 DAILY glimepiride 2021-05- No 1 (one) UT (Amaryl) 2 0-03 10-03 time each Hea lth MG tablet 10:44: 00:00 day at the 49 :00 same time. Lancets 2021-05- No Q12H every 12 UT Super Thin 0-03 10-03 (twelve) Heal th 28G misc 10:44: 00:00 hours. 49 :00 Blood 2021-05- No one UT Glucose 0-03 10-03 Health Calibration 10:44: 00:00 (GLUCOMETER 49 :00 DEX HIGH CONTROL ) Lancets 2021-05- No one UT Super Thin 0-03 10-03 Health 28G misc 10:44: 00:00 49 :00 Levothyroxi 2021-05- No 1 (one) UT ne Sodium 0-03 10-03 time each Heal th 112 MCG/ML 10:44: 00:00 day at the solution 49 :00 same time. HYDROcodone 2021-05 No UT -acetaminop 0-03 10-03 [facility] ([place]) 10:44: 00:00 10-325 MG 49 :00 tablet HYDROcodone 2021-05- No [place] UT -acetaminop 0-03 10-03 [facility] hen ([place]) 10:44: 00:00 10-325 MG 49 :00 tablet HYDROcodone 2021-05- No [place] UT -acetaminop 0-03 10-03 [facility] hen ([place]) 10:44: 00:00 10-325 MG 49 :00 tablet Alirocumab 2021-05- No 1 ml UT (Praluent) 0-03 10-03 Health 75 MG/ML 10:44: 00:00 solution 49 :00 auto-inject or simvastatin 2021-05- No 1 (one) UT (Zocor) 5 0-03 10-03 time each Heal th MG tablet 10:44: 00:00 day at the 49 :00 same time. Glucose 2021-05- No USE 1 UT Blood (TRUE 0-03 10 STRIP TO [facility] METRIX 10:44: 00:00 CHECK BLOOD 49 :00 GLUCOSE GLUCOSE TWICE TEST ) DAILY Cholecalcif 2021-05- No UT mirian 0-03 10-03 Health (Vitamin D) 10:44: 00:00 10 MCG/ML 49 :00 liquid Cholecalcif 2021-05- No Vitamin D UT mirian 0-03 10-03 Health (Vitamin D) 10:44: 00:00 10 MCG/ML 49 :00 liquid atorvastati 2021-05- No 1 (one) UT n (Lipitor) 002-15 time each He alth 10 MG 10:44: 00:00 day at the tablet 49 :00 same time. Cholecalcif 2021-05- No not UT mirian 002-15 defined Health (Vitamin D) 10:44: 00:00 125 MCG 49 :00 (5000 UT) capsule docusate 2021-05- No 1{tbl} Take 1 UT sodium 02-15 tablet by Health (Colace) 10:44: 00:00 mouth. 100 MG 49 :00 tablet empaglifloz 2021-05 1 tablet U T in 02-15 Health (Jardiance) 10:44: 00:00 10 MG 49 :00 levothyroxi 2021-05 No 1 tablet U T ne 02-15 on an Health (Synthroid, 10:44: 00:00 empty Levoxyl) 49 :00 stomach in 112 MCG the tablet morning Tofacitinib 2021-05 No 11mg Take 11 mg UT Citrate ER 02-15 by mouth. Hea lth 11 MG 10:44: 00:00 tablet 49 :00 sustained-r elease 24 hour ursodiol 2021-05- No [id number] 300mg Q.5D Take 1 U T (Actigall) 02-16 capsule Healt h 300 MG 00:00: 04:59 (300 mg capsule 00 :00 total) by mouth in the morning and 1 capsule (300 mg total) in the evening. ursodiol 2021-05 No [id number] 300mg Q.5D Take 1 U T (Actigall) 03-16 capsule Healt h 300 MG 00:00: 00:00 (300 mg capsule 00 :00 total) by mouth in the morning and 1 capsule (300 mg total) in the evening. ursodiol 2021-05- No [id number] 300mg Q.5D Take 1 U T (Actigall) 003-16 capsule Healt h 300 MG 00:00: 00:00 (300 mg capsule 00 :00 total) by mouth in the morning and 1 capsule (300 mg total) in the evening. LORATADINE 2-0 Yes Take by Univ ers (CLARITIN 9-27 mouth. ity of ORAL) 08:59: [place] [address] [facility] LORATADINE 2022-0 Yes Take by Univ ers (CLARITIN 9-27 mouth. ity of ORAL) 08:59: [place] [address] [facility] LORATADINE 2022-0 Yes Take by Univ ers (CLARITIN 9-27 mouth. ity of ORAL) 08:59: [place] [address] [facility] LORATADINE 2022-0 Yes Take by Univ ers (CLARITIN 9-27 mouth. ity of ORAL) 08:59: [place] [address] [facility] LORATADINE 2022-0 Yes Take by Univ ers (CLARITIN 9-27 mouth. ity of ORAL) 08:59: [place] [address] [facility] LORATADINE 2022-0 Yes Take by Univ ers (CLARITIN 9-27 mouth. ity of ORAL) 08:59: [place] [address] [facility] LORATADINE 2022-0 Yes Take by Univ ers (CLARITIN 9-27 mouth. ity of ORAL) 08:59: [place] [address] [facility] LORATADINE 2022-0 Yes Take by Univ ers (CLARITIN 9-27 mouth. ity of ORAL) 08:59: [place] [address] [facility] LORATADINE 2022-0 Yes Take by Univ ers (CLARITIN 9-27 mouth. ity of ORAL) 08:59: [place] [address] [facility] LORATADINE 2022-0 Yes Take by Univ ers (CLARITIN 9-27 mouth. ity of ORAL) 08:59: [place] [address] [facility] LORATADINE 2022-0 Yes Take by Univ ers (CLARITIN 9-27 mouth. ity of ORAL) 08:59: [place] [address] [facility] LORATADINE 2022-0 Yes Take by Univ ers (CLARITIN 9-27 mouth. ity of ORAL) 08:59: [place] [address] [facility] LORATADINE 2022-0 Yes Take by Univ ers (CLARITIN 9-27 mouth. ity of ORAL) 08:59: [place] [address] [facility] LORATADINE 2022-0 Yes Take by Univ ers (CLARITIN 9-27 mouth. ity of ORAL) 08:59: [place] [address] [facility] LORATADINE 2022-0 Yes Take by Univ ers (CLARITIN 9-27 mouth. ity of ORAL) 08:59: [place] [address] [facility] LORATADINE 2021-0 Yes Take by Univ ers (CLARITIN 9-27 mouth. ity of ORAL) 08:59: [place] [address] [facility] LORATADINE 2021-0 Yes Take by Univ ers (CLARITIN 9-27 mouth. ity of ORAL) 08:59: [place] [address] [facility] LORATADINE 2021-0 Yes Take by Univ ers (CLARITIN 9-27 mouth. ity of ORAL) 08:59: [place] [address] [facility] LORATADINE 2021-0 Yes Take by Univ ers (CLARITIN 9-27 mouth. ity of ORAL) 08:59: [address] triamcinolo 2021-0 2021- No [id number] 10mg U T ne 01-01 Health acetonide 16:07: 16:07 (Kenalog) 07 :00 10 MG/ML injection 10 mg bupivacaine 2021-2021- No [id number] 1mL U T (Marcaine) 01-01 Health 0.25 % 16:07: 16:07 injection 1 07 :00 mL lidocaine 2021-0 2021- No [id number] 1mL UT (Xylocaine) 01-01 Health 1 % 16:07: 16:07 injection 1 07 :00 mL lidocaine 2021-0 2021- No [id number] 1mL 1 mL, UT (Xylocaine) 01-01 Injection, H ealth 1 % 16:07: 16:07 Once PRN injection 1 07 :00 Procedure, mL Starting on Tue01/01/22 at 1107, For 1 dose bupivacaine 2021-0 2021- No [id number] 1mL 1 mL, UT (Marcaine) 01-01 Injection, He alth 0.25 % 16:07: 16:07 Once PRN injection 1 07 :00 Procedure, mL Starting on Tue01/01/22 at 1107, For 1 dose triamcinolo 2021-0 2021- No [id number] 10mg 10 mg, UT ne 01-01 [facility] acetonide 16:07: 16:07 cular, (Kenalog) 07 :00 Once PRN 10 MG/ML Procedure, injection Starting 10 mg on Tue01/01/22 at 1107, For 1 dose Diclofenac Yes [id number] APPLY 4 UT Sodium 8-19 2 GRAMS OF Health (Voltaren) 00:00: GEL 1 % 00 TOPICALLY external FOUR TIMES gel DAILY TO AFFECTED AREA TO LOWER EXTREMITIE S DO NOT APPLY MORE THAN 16 GRAMS DAILY TO ANY ONE AFFEC amoxicillin 2021-0 Yes [id number] TAKE 4 UT (Amoxil) 8- 9100 CAPSULES Health 500 MG 00:00: ONE HOUR capsule 00 BEFORE PROCEDURE. TAKE 4 CAPSULES ONE HOUR AFTER PROCEDURE. Diclofenac 0 Yes [id number] APPLY 4 UT Sodium 8-19 2 GRAMS OF Health (Voltaren) 00:00: GEL 1 % 00 TOPICALLY external FOUR TIMES gel DAILY TO AFFECTED AREA TO LOWER EXTREMITIE S DO NOT APPLY MORE THAN 16 GRAMS DAILY TO ANY ONE AFFEC Diclofenac 0 Yes [id number] APPLY 4 UT Sodium 8-19 2 GRAMS OF Health (Voltaren) 00:00: GEL 1 % 00 TOPICALLY external FOUR TIMES gel DAILY TO AFFECTED AREA TO LOWER EXTREMITIE S DO NOT APPLY MORE THAN 16 GRAMS DAILY TO ANY ONE AFFEC Diclofenac 0 Yes [id number] APPLY 4 UT Sodium 8-19 2 GRAMS OF Health (Voltaren) 00:00: GEL 1 % 00 TOPICALLY external FOUR TIMES gel DAILY TO AFFECTED AREA TO LOWER EXTREMITIE S DO NOT APPLY MORE THAN 16 GRAMS DAILY TO ANY ONE AFFEC Diclofenac 0 Yes [id number] APPLY 4 UT Sodium 8-19 2 GRAMS OF Health (Voltaren) 00:00: GEL 1 % 00 TOPICALLY external FOUR TIMES gel DAILY TO AFFECTED AREA TO LOWER EXTREMITIE S DO NOT APPLY MORE THAN 16 GRAMS DAILY TO ANY ONE AFFEC Diclofenac 0 Yes [id number] APPLY 4 UT Sodium 8-19 2 GRAMS OF Health (Voltaren) 00:00: GEL 1 % 00 TOPICALLY external FOUR TIMES gel DAILY TO AFFECTED AREA TO LOWER EXTREMITIE S DO NOT APPLY MORE THAN 16 GRAMS DAILY TO ANY ONE AFFEC Diclofenac 0 Yes [id number] APPLY 4 UT Sodium 8-19 2 GRAMS OF Health (Voltaren) 00:00: GEL 1 % 00 TOPICALLY external FOUR TIMES gel DAILY TO AFFECTED AREA TO LOWER EXTREMITIE S DO NOT APPLY MORE THAN 16 GRAMS DAILY TO ANY ONE AFFEC Diclofenac Yes [id number] APPLY 4 UT Sodium 8-19 2 GRAMS OF Health (Voltaren) 00:00: GEL 1 % 00 TOPICALLY external FOUR TIMES gel DAILY TO AFFECTED AREA TO LOWER EXTREMITIE S DO NOT APPLY MORE THAN 16 GRAMS DAILY TO ANY ONE AFFEC Diclofenac Yes [id number] APPLY 4 UT Sodium 8-19 2 GRAMS OF Health (Voltaren) 00:00: GEL 1 % 00 TOPICALLY external FOUR TIMES gel DAILY TO AFFECTED AREA TO LOWER EXTREMITIE S DO NOT APPLY MORE THAN 16 GRAMS DAILY TO ANY ONE AFFEC Diclofenac Yes [id number] APPLY 4 UT Sodium 8-19 2 GRAMS OF Health (Voltaren) 00:00: GEL 1 % 00 TOPICALLY external FOUR TIMES gel DAILY TO AFFECTED AREA TO LOWER EXTREMITIE S DO NOT APPLY MORE THAN 16 GRAMS DAILY TO ANY ONE AFFEC Diclofenac Yes [id number] APPLY 4 UT Sodium 8-19 2 GRAMS OF Health (Voltaren) 00:00: GEL 1 % 00 TOPICALLY external FOUR TIMES gel DAILY TO AFFECTED AREA TO LOWER EXTREMITIE S DO NOT APPLY MORE THAN 16 GRAMS DAILY TO ANY ONE AFFEC Diclofenac Yes [id number] APPLY 4 UT Sodium 8-19 2 GRAMS OF Health (Voltaren) 00:00: GEL 1 % 00 TOPICALLY external FOUR TIMES gel DAILY TO AFFECTED AREA TO LOWER EXTREMITIE S DO NOT APPLY MORE THAN 16 GRAMS DAILY TO ANY ONE AFFEC Diclofenac Yes [id number] APPLY 4 UT Sodium 8-19 2 GRAMS OF Health (Voltaren) 00:00: GEL 1 % 00 TOPICALLY external FOUR TIMES gel DAILY TO AFFECTED AREA TO LOWER EXTREMITIE S DO NOT APPLY MORE THAN 16 GRAMS DAILY TO ANY ONE AFFEC Diclofenac Yes [id number] APPLY 4 UT Sodium 8-19 2 GRAMS OF Health (Voltaren) 00:00: GEL 1 % 00 TOPICALLY external FOUR TIMES gel DAILY TO AFFECTED AREA TO LOWER EXTREMITIE S DO NOT APPLY MORE THAN 16 GRAMS DAILY TO ANY ONE AFFEC Diclofenac Yes [id number] APPLY 4 UT Sodium 8-19 2 GRAMS OF Health (Voltaren) 00:00: GEL 1 % 00 TOPICALLY external FOUR TIMES gel DAILY TO AFFECTED AREA TO LOWER EXTREMITIE S DO NOT APPLY MORE THAN 16 GRAMS DAILY TO ANY ONE AFFEC amoxicillin 2021- No [id number] TAKE 4 UT (Amoxil) 01-01 9100 CAPSULES Health 500 MG 00:00: 00:00 ONE HOUR capsule 00 :00 BEFORE PROCEDURE. TAKE 4 CAPSULES ONE HOUR AFTER PROCEDURE. amoxicillin 2021- No [id number] TAKE 4 UT (Amoxil) 01-01 9100 CAPSULES Health 500 MG 00:00: 00:00 ONE HOUR capsule 00 :00 BEFORE PROCEDURE. TAKE 4 CAPSULES ONE HOUR AFTER PROCEDURE. EUTHYROX Yes [id number] TAKE 1 Uni vers 112 mcg 8-11 TABLET BY ity of tablet 00:00: MOUTH ONCE [place] 00 DAILY IN [facility] MORNING EUTHYROX Yes [id number] TAKE 1 Uni vers 112 mcg 8-11 TABLET BY ity of tablet 00:00: MOUTH ONCE [place] 00 DAILY IN [facility] MORNING EUTHYROX 0 Yes [id number] TAKE 1 Uni vers 112 mcg 8-11 TABLET BY ity of tablet 00:00: MOUTH ONCE [place] 00 DAILY IN [facility] MORNING EUTHYROX 0 Yes [id number] TAKE 1 Uni vers 112 mcg 8-11 TABLET BY ity of tablet 00:00: MOUTH ONCE [place] 00 DAILY IN [facility] MORNING EUTHYROX 0 Yes [id number] TAKE 1 Uni vers 112 mcg 8-11 TABLET BY ity of tablet 00:00: MOUTH ONCE [place] 00 DAILY IN [facility] MORNING EUTHYROX 0 Yes [id number] TAKE 1 Uni vers 112 mcg 8-11 TABLET BY ity of tablet 00:00: MOUTH ONCE [place] 00 DAILY IN [facility] MORNING EUTHYROX 0 Yes [id number] TAKE 1 Uni vers 112 mcg 8-11 TABLET BY ity of tablet 00:00: MOUTH ONCE [place] 00 DAILY IN [facility] MORNING EUTHYROX 0 Yes [id number] TAKE 1 [facility] vers 112 mcg 8-11 TABLET BY ity of tablet 00:00: MOUTH ONCE [place] 00 DAILY IN [facility] MORNING EUTHYROX 0 2021- No [id number] TAKE 1 Un pamela 112 mcg 8-11 11-28 TABLET BY ity of tablet 00:00: 00:[place] DA[place] IN [facility] MORNING EUTHYROX 2021- No [id number] TAKE 1 Un pamela 112 mcg 12-2428 TABLET BY ity of tablet 00:00: 00:[place]CE [place] DAILY IN Medical THE Branch MORNING ursodiol 2021- No 1981 300mg Take 300 Uni vers 300 mg 12-22 mg by ity of capsule 17:49: 00:00 mouth 2 [place] 38 :00 (two) Medical times Branch daily. Indication s: chronic inflammati on of the pancreas alirocumab 2021- No inject Univ ers (PRALUENT 12-22 under the ity of PEN) 75 17:49: 00:00 skin. [place] mg/mL PnIj 29 :00 Medical Branch blood sugar Yes [id number] Use as [facility] diagnostic 12-22 directed ity o f (ONETOUCH 00:00: once daily [place] VERIO TEST E11.65 Medical STRIPS) Branch strip lancets Yes [id number] Use as Univ ers (ONE TOUCH 12-22 directed ity o f DELICA) 33 00:00: once daily [place] gauge Misc 00 E11.65 Medical Branch dapaglifloz Yes [id number] 10mg Take 1 [facility] in 12-22 tablet by ity of (XIGA) 00:00: mouth in [place] 10 mg 00 the Medical tablet morning. Branch blood sugar Yes [id number] Use as [facility] diagnostic 12-22 directed ity o f (ONETOUCH 00:00: [place] daily [place] VERIO TEST E11.65 Medical STRIPS) Branch strip lancets Yes [id number] Use as [facility] ers (ONE TOUCH 12-22 directed ity o f DELICA) 33 00:00: once daily [place] gauge Misc 00 E11.65 Medical Branch dapaglifloz Yes [id number] 10mg Take 1 [facility] in 12-22 tablet by ity of (FARXIGA) 00:00: mouth [place] 10 mg 00 the Medical tablet morning. Branch blood sugar Yes [id number] Use as [facility] diagnostic 12-22 directed ity o f (ONETOUCH 00:00: once daily [place] VERIO TEST E11.65 Medical STRIPS) Branch strip lancets 2022-0 Yes [id number] Use as [facility] ers (ONE TOUCH 12-22 directed ity o f DELICA) 33 00:00: once daily [place] gauge Misc E11.65 Medical Branch dapaglifloz 2-0 Yes [id number] 10mg Take 1 [facility] in 8-09 tablet by ity of (XIGA) 00:00: mouth [place] 10 mg 00 the Medical tablet morning. Branch blood sugar 2021-0 Yes [id number] Use as [facility] diagnostic 12-22 directed ity o f (ONETOUCH 00:00: once daily [place] VERIO TEST E11.65 Medical STRIPS) Branch strip lancets 2021-0 Yes [id number] Use as Univ ers (ONE TOUCH 12-22 directed ity o f DELICA) 33 00:00: once daily [place] gauge Misc E11.65 Medical Branch dapaglifloz 2021-0 Yes [id number] 10mg Take 1 [facility] in 12-22 tablet by ity of (XIGA) 00:00: [place] 10 mg 00 the Medical tablet morning. Branch blood sugar 2021-0 Yes [id number] Use as [facility] diagnostic 12-22 directed ity o f (ONETOUCH 00:00: once daily [place] VERIO TEST E11.65 Medical STRIPS) Branch strip lancets 2021-0 Yes [id number] Use as Univ ers (ONE TOUCH 12-22 directed ity o f DELICA) 33 00:00: once daily [place] gauge Misc E11.65 Medical Branch dapaglifloz 2-0 Yes [id number] 10mg Take 1 [facility] in 12-22 tablet by ity of (XIGA) 00:00: mouth [place] 10 mg 00 the Medical tablet morning. Branch blood sugar 2021-0 Yes [id number] Use as [facility] diagnostic 12-22 directed ity o f (ONETOUCH 00:00: once daily [place] VERIO TEST E11.65 Medical STRIPS) Branch strip lancets 2-0 Yes [id number] Use as Univ ers (ONE TOUCH 12-22 directed ity o f DELICA) 33 00:00: once daily [place] gauge Misc E11.65 Medical Branch dapaglifloz 2-0 Yes [id number] 10mg Take 1 [facility] in 8- tablet by ity of (FARXIGA) 00:00: [place] 10 mg 00 the Medical tablet morning. Branch blood sugar 2021-0 Yes [id number] Use as [facility] diagnostic 12-22 directed ity o f (ONETOUCH 00:00: once daily [place] VERIO TEST E11.65 Medical STRIPS) Branch strip lancets 2-0 Yes [id number] Use as Univ ers (ONE TOUCH 12-22 directed ity o f DELICA) 33 00:00: once daily [place] gauge Misc E11.65 Medical Branch dapaglifloz 2-0 Yes [id number] 10mg Take 1 [facility] in 12-22 tablet by ity of ([facility]) 00:00: [place] 10 mg 00 the Medical tablet morning. Branch blood sugar 2021-0 Yes [id number] Use as [facility] diagnostic 12-22 directed ity o f (ONETOUCH 00:00: once daily [place] VERIO TEST E11.65 Medical STRIPS) Branch strip lancets 2021-0 Yes [id number] Use as Univ ers (ONE TOUCH 12-22 directed ity o f DELICA) 33 00:00: once daily [place] gauge Misc E11.65 Medical Branch dapaglifloz 2021-0 Yes [id number] 10mg Take 1 [facility] in 12-22 tablet by ity of ([facility]) 00:00: [place] 10 mg 00 the Medical tablet morning. Branch blood sugar 2021-0 Yes [id number] Use as [facility] diagnostic 12-22 directed ity o f (ONETOUCH 00:00: once daily [place] VERIO TEST E11.65 Medical STRIPS) Branch strip lancets 2021-0 Yes [id number] Use as Univ ers (ONE TOUCH 12-22 directed ity o f DELICA) 33 00:00: once daily [place] gauge Misc E11.65 Medical Branch dapaglifloz 2-0 Yes [id number] 10mg Take 1 [facility] in 09 tablet by ity of ([facility]) 00:00: [place] 10 mg 00 the Medical tablet morning. Branch blood sugar 2-0 Yes [id number] Use as [facility] diagnostic 12-22 directed ity o f (ONETOUCH 00:00: once daily [place] VERIO TEST E11.65 Medical STRIPS) Branch strip lancets 2022-0 Yes [id number] Use as Univ ers (ONE TOUCH 12-22 directed ity o f DELICA) 33 00:00: once daily [place] gauge Misc E11.65 Medical Branch dapaglifloz 2-0 Yes [id number] 10mg Take 1 [facility] in 8-09 tablet by ity of (XIGA) 00:00: [place] 10 mg 00 the Medical tablet morning. Branch blood sugar 2021-0 Yes [id number] Use as [facility] diagnostic 12-22 directed ity o f (ONETOUCH 00:00: once daily [place] VERIO TEST E11.65 Medical STRIPS) Branch strip lancets 2021-0 Yes [id number] Use as Univ ers (ONE TOUCH 12-22 directed ity o f DELICA) 33 00:00: once daily [place] gauge Misc E11.65 Medical Branch dapaglifloz 2021-0 Yes [id number] 10mg Take 1 [facility] in 12-22 tablet by ity of (XI) 00:00: [place] 10 mg 00 the Medical tablet morning. Branch blood sugar 2021-0 Yes [id number] Use as [facility] diagnostic 12-22 directed ity o f (ONETOUCH 00:00: once daily [place] VERIO TEST E11.65 Medical STRIPS) Branch strip lancets 2021-0 Yes [id number] Use as Univ ers (ONE TOUCH 12-22 directed ity o f DELICA) 33 00:00: once daily [place] gauge Misc E11.65 Medical Branch dapaglifloz 2-0 Yes [id number] 10mg Take 1 [facility] in 12-22 tablet by ity of (XIGA) 00:00: [place] 10 mg 00 the Medical tablet morning. Branch blood sugar 2021-0 Yes [id number] Use as [facility] diagnostic 12-22 directed ity o f (ONETOUCH 00:00: once daily [place] VERIO TEST E11.65 Medical STRIPS) Branch strip lancets 2-0 Yes [id number] Use as Univ ers (ONE TOUCH 12-22 directed ity o f DELICA) 33 00:00: once daily [place] gauge Misc E11.65 Medical Branch dapaglifloz 2-0 Yes [id number] 10mg Take 1 Univers in 8- tablet by ity of (FARXIGA) 00:00: mouth [place] 10 mg 00 the Medical tablet morning. Branch blood sugar 2-0 Yes [id number] Use as [facility] diagnostic 12-22 directed ity o f (ONETOUCH 00:00: once daily [place] VERIO TEST E11.65 Medical STRIPS) Branch strip lancets 2-0 Yes [id number] Use as Univ ers (ONE TOUCH 12-22 directed ity o f DELICA) 33 00:00: once daily [place] gauge Misc E11.65 Medical Branch dapaglifloz 2-0 Yes [id number] 10mg Take 1 [facility] in 8 tablet by ity of () 00:00: [place] 10 mg 00 the Medical tablet morning. Branch blood sugar 2021-0 Yes [id number] Use as [facility] diagnostic 12-22 directed ity o f (ONETOUCH 00:00: once daily [place] VERIO TEST E11.65 Medical STRIPS) Branch strip lancets 2021-0 Yes [id number] Use as Univ ers (ONE TOUCH 12-22 directed ity o f DELICA) 33 00:00: once daily [place] gauge Misc 00 E11.65 Medical Branch dapaglifloz 2-0 Yes [id number] 10mg Take 1 [facility] in 12-22 tablet by ity of () 00:00: [place] 10 mg 00 the Medical tablet morning. Branch dapaglifloz 2022-0 Yes [id number] 10mg Take 1 [facility] in 8 tablet by ity of () 00:00: [place] 10 mg 00 the Medical tablet morning. Branch dapaglifloz 2022-0 Yes [id number] 10mg Take 1 [facility] in 8 tablet by ity of () 00:00: [place] 10 mg 00 the Medical tablet morning. Branch dapaglifloz 2022-0 Yes [id number] 10mg Take 1 Univers in 8- tablet by ity of () 00:00: [place] 10 mg 00 the Medical tablet morning. Branch dapaglifloz 2022-0 2023- No [id number] 10mg Take 1 Univers in 12-22- tablet by ity of () 00:00: 00:00 mouth in [place] 10 mg 00 :00 the Medical tablet morning. Branch dapaglifloz 3- No [id number] 10mg Take 1 Univers in 12-22 tablet by ity of (FARXIGA) 00:00: 00:00 mouth in [place] 10 mg 00 :00 the Medical tablet morning. Branch blood sugar 3- No [id number] Use as [facility] diagnostic 12-22 directed ity of (ONETOUCH 00:00: 00:00 once daily [place] VERIO TEST 00 :00 E11.65 Medical STRIPS) Branch strip lancets 3- No [id number] Use as Uni vers (ONE TOUCH 12-22 directed ity of DELICA) 33 00:00: 00:00 once daily [place] gauge Misc 00 :00 E11.65 Medical Branch blood sugar 2022- No [id number] Use as [facility] diagnostic 12-22 directed ity of (ONETOUCH 00:00: 00:00 once daily [place] VERIO TEST 00 :00 E11.65 Medical STRIPS) Branch strip lancets 3- No [id number] Use as Uni vers (ONE TOUCH 12-22 directed ity of DELICA) 33 00:00: 00:00 once daily [place] gauge Misc 00 :00 E11.65 Medical Branch aspirin 81 0 Yes 81mg Take 81 mg U nivers mg chewable 7-28 by mouth ity of tablet 09:30: daily. [address] Branch Cholecalcif 0 Yes Take by Uni vers mirian, 7-28 mouth. ity of Vitamin D3, 09:30: [place] [address] Medical (2,000 Branch unit) tablet LORATADINE Yes Take by [facility] ers (CLARITIN 7-28 mouth. ity of ORAL) 09:30: [address] Branch citalopram 0 Yes 40mg Take 40 mg U nivers 40 mg 7-28 by mouth ity of tablet 09:30: daily. [place] [address] Medical Branch BIOTIN ORAL 0 Yes Take by Uni vers 7-28 mouth. ity of 09:30: [address] Branch docusate 0 Yes Take by Univer s sodium 7-28 mouth. ity of (STOOL 09:30: [place] SOFTENER 54 Medical ORAL) Branch aspirin 81 2021-0 Yes 81mg Take 81 mg U nivers mg chewable 7-28 by mouth ity of tablet 09:30: daily. [place] [address] Medical Branch Cholecalcif 2021-0 Yes Take by Uni vers mirian, 7-28 mouth. ity of Vitamin D3, 09:30: [place] 50 mcg 54 Medical (2,000 Branch unit) tablet LORATADINE 2021-0 Yes Take by Univ ers (CLARITIN 7-28 mouth. ity of ORAL) 09:30: [place] [address] Medical Branch citalopram 2021-0 Yes 40mg Take 40 mg U nivers 40 mg 7-28 by mouth ity of tablet 09:30: daily. [place] [address] Medical Branch BIOTIN ORAL 2021-0 Yes Take by Uni vers 7-28 mouth. ity of 09:30: [address] Branch docusate 2021-0 Yes Take by Univer s sodium 7-28 mouth. [facility] [place] [facility] aspirin [facility] 2021-0 Yes 81mg Take 81 mg U nivers mg chewable 7-28 by mouth ity of tablet 09:30: daily. [address] Branch Cholecalcif 2021-0 Yes Take by Uni vers mirian, 7-28 mouth. ity of Vitamin D3, 09:30: [place] 50 mcg 54 Medical (2,000 Branch unit) tablet LORATADINE 2021-0 Yes Take by Univ ers (CLARITIN 7-28 mouth. ity of ORAL) 09:30: [address] Branch citalopram 2021-0 Yes 40mg Take 40 mg U nivers 40 mg 7-28 by mouth ity of tablet 09:30: daily. [address] Branch BIOTIN ORAL 2021-0 Yes Take by Uni vers 7-28 mouth. ity of 09:30: [address] Branch docusate 2021-0 Yes Take by Univer s sodium 7-28 mouth. ity [facility] ([facility] [place] [facility] aspirin 81 2021-0 Yes 81mg Take 81 mg U nivers mg chewable 7-28 by mouth ity of tablet 09:30: daily. [address] Branch Cholecalcif 2021-0 Yes Take by Uni vers mirian, 7-28 mouth. ity of Vitamin D3, 09:30: [place] 50 mcg 54 Medical (2,000 Branch unit) tablet LORATADINE 2021-0 Yes Take by Univ ers (CLARITIN 7-28 mouth. ity of ORAL) 09:30: [place] [address] Medical Branch citalopram 2021-0 Yes 40mg Take 40 mg U nivers 40 mg 7-28 by mouth ity of tablet 09:30: daily. [address] BIOTIN ORAL 2021-0 Yes Take by Uni vers 7-28 mouth. ity of 09:30: [address] Branch docusate 2021-0 Yes Take by Univer s sodium 7-28 mouth. ity of (STOOL 09:30: [place] SOFTENER 54 Medical ORAL) Branch aspirin 81 2021-0 Yes 81mg Take 81 mg U nivers mg chewable 7-28 by mouth ity of tablet 09:30: daily. [address] Branch Cholecalcif 2021-0 Yes Take by Uni vers mirian, 7-28 mouth. ity of Vitamin D3, 09:30: [place] [address] Medical (2,000 Branch unit) tablet LORATADINE 2021-0 Yes Take by Univ ers (CLARITIN 7-28 mouth. ity of ORAL) 09:30: [address] Branch citalopram 2021-0 Yes 40mg Take 40 mg U nivers 40 mg 7-28 by mouth ity of tablet 09:30: daily. [address] Branch BIOTIN ORAL 2021-0 Yes Take by Uni vers 7-28 mouth. ity of 09:30: [address] docusate 2021-0 Yes Take by Univer s sodium 7-28 mouth. ity of (STOOL 09:30: [place] SOFTENER Medical ORAL) Branch aspirin 81 2021-0 Yes 81mg Take 81 mg U nivers mg chewable 7-28 by mouth ity of tablet 09:30: daily. [address] Branch Cholecalcif 2021-0 Yes Take by Uni vers mirian, 7-28 mouth. ity of Vitamin D3, 09:30: [place] 50 mcg 54 Medical (2,000 Branch unit) tablet LORATADINE 2021-0 Yes Take by Univ ers (CLARITIN 7-28 mouth. ity of ORAL) 09:30: [place] [address] Medical Branch citalopram 2-0 Yes 40mg Take 40 mg U nivers 40 mg 7-28 by mouth ity of tablet 09:30: daily. [address] Branch BIOTIN ORAL 2021-0 Yes Take by Uni vers 7-28 mouth. ity of 09:30: [address] Branch docusate 2021-0 Yes Take by Univer s sodium 7-28 mouth. ity of (STOOL 09:30: [place] [address] Medical ORAL) Branch aspirin 81 2021-0 Yes 81mg Take 81 mg U nivers mg chewable 7-28 by mouth ity of tablet 09:30: daily. [address] Branch Cholecalcif 2021-0 Yes Take by Uni vers mirian, 7-28 mouth. ity of Vitamin D3, 09:30: [place] 50 mcg Medical (2,000 Branch unit) tablet citalopram 2021-0 Yes 40mg Take 40 mg U nivers 40 mg 7-28 by mouth ity of tablet 09:30: daily. [address] BIOTIN ORAL 2021-0 Yes Take by Uni vers 7-28 mouth. ity of 09:30: [address] docusate 2021-0 Yes Take by Univer s sodium 7-28 mouth. ity of (STOOL 09:30: [place] [address] Medical ORAL) Branch aspirin 81 2021-0 Yes 81mg Take 81 mg U nivers mg chewable 7-28 by mouth ity of tablet 09:30: daily. [address] Cholecalcif 2021-0 Yes Take by Uni vers mirian, 7-28 mouth. ity of Vitamin D3, 09:30: [place] 50 mcg Medical (2,000 Branch unit) tablet citalopram 2021-0 Yes 40mg Take 40 mg U nivers 40 mg 7-28 by mouth ity of tablet 09:30: daily. [address] Branch BIOTIN ORAL 2021-0 Yes Take by Uni vers 7-28 mouth. ity of 09:30: [address] docusate 2021-0 Yes Take by Univer s sodium 7-28 mouth. ity of ([facility]:30[facility] [place] [facility] Branch aspirin 81 2021-0 Yes 81mg Take 81 mg U nivers mg chewable 7-28 by mouth ity of tablet 09:30: daily. [address] Branch Cholecalcif 2021-0 Yes Take by Uni vers mirian, 7-28 mouth. ity of Vitamin D3, 09:30: [place] 50 mcg 54 Medical (2,000 Branch unit) tablet citalopram 2021-0 Yes 40mg Take 40 mg U nivers 40 mg 7-28 by mouth ity of tablet 09:30: daily. [place] [address] Medical Branch BIOTIN ORAL 2021-0 Yes Take by Uni vers 7-28 mouth. ity of 09:30: [address] Branch docusate 2021-0 Yes Take by Univer s sodium 7-28 mouth. ity of (STOOL 09:30: [place] SOFTENER Medical ORAL) Branch aspirin 81 2021-0 Yes 81mg Take 81 mg U nivers mg chewable 7-28 by mouth ity of tablet 09:30: daily. [address] Branch Cholecalcif 2021-0 Yes Take by Uni vers mirian, 7-28 mouth. ity of Vitamin D3, 09:30: [place] 50 mcg 54 Medical (2,000 Branch unit) tablet citalopram 2021-0 Yes 40mg Take 40 mg U nivers 40 mg 7-28 by mouth ity of tablet 09:30: daily. [address] Branch BIOTIN ORAL 2021-0 Yes Take by Uni vers 7-28 mouth. ity of 09:30: [address] Branch docusate 2021-0 Yes Take by Univer s sodium 7-28 mouth. ity of (STOOL 09:30: [place] SOFTENER Medical ORAL) Branch aspirin 81 2021-0 Yes 81mg Take 81 mg U nivers mg chewable 7-28 by mouth ity of tablet 09:30: daily. [address] Cholecalcif 2021-0 Yes Take by Uni vers mirian, 7-28 mouth. ity of Vitamin D3, 09:30: [place] 50 mcg 54 Medical (2,000 Branch unit) tablet citalopram 2021-0 Yes 40mg Take 40 mg U nivers 40 mg 7-28 by mouth ity of tablet 09:30: daily. [address] Branch BIOTIN ORAL 2021-0 Yes Take by Uni vers 7-28 mouth. ity of 09:30: [address] Branch docusate 2021-0 Yes Take by Univer s sodium 7-28 mouth. ity of (STOOL 09:30: [place] SOFTENER 54 Medical ORAL) Branch aspirin 81 2021-0 Yes 81mg Take 81 mg U nivers mg chewable 7-28 by mouth ity of tablet 09:30: daily. [address] Branch Cholecalcif 2021-0 Yes Take by Uni vers mirian, 7-28 mouth. ity of Vitamin D3, 09:30: [place] 50 mcg 54 Medical (2,000 Branch unit) tablet citalopram 2021-0 Yes 40mg Take 40 mg U nivers 40 mg 7-28 by mouth ity of tablet 09:30: daily. [address] BIOTIN ORAL 2021-0 Yes Take by Uni vers 7-28 mouth. ity of 09:30: [address] Branch docusate 2021-0 Yes Take by Univer s sodium 7-28 mouth. ity of (STOOL 09:30: [place] SOFTENER Medical ORAL) Branch aspirin 81 2021-0 Yes 81mg Take 81 mg U nivers mg chewable 7-28 by mouth ity of tablet 09:30: daily. [address] Cholecalcif 2021-0 Yes Take by Uni vers mirian, 7-28 mouth. ity of Vitamin D3, 09:30: [place] 50 mcg 54 Medical (2,000 Branch unit) tablet citalopram 2021-0 Yes 40mg Take 40 mg U nivers 40 mg 7-28 by mouth ity of tablet 09:30: daily. [address] BIOTIN ORAL 2021-0 Yes Take by Uni vers 7-28 mouth. ity of 09:30: [address] docusate 2021-0 Yes Take by Univer s sodium 7-28 mouth. ity of ([facility] [place] [facility] aspirin 81 2021-0 Yes 81mg Take 81 mg U nivers mg chewable 7-28 by mouth ity of tablet 09:30: daily. [address] Branch Cholecalcif 2021-0 Yes Take by Uni vers mirian, 7-28 mouth. ity of Vitamin D3, 09:30: [place] 50 mcg 54 Medical (2,000 Branch unit) tablet citalopram 2-0 Yes 40mg Take 40 mg U nivers 40 mg 7-28 by mouth ity of tablet 09:30: daily. [address] BIOTIN ORAL 2021-0 Yes Take by Uni vers 7-28 mouth. ity of 09:30: [address] docusate 2021-0 Yes Take by Univer s sodium 7-28 mouth. ity of (STOOL 09:30: [place] SOFTENER 54 Medical ORAL) Branch aspirin 81 2021-0 Yes 81mg Take 81 mg U nivers mg chewable 7-28 by mouth ity of tablet 09:30: daily. [address] Branch Cholecalcif 2021-0 Yes Take by Uni vers mirian, 7-28 mouth. ity of Vitamin D3, 09:30: [place] 50 mcg 54 Medical (2,000 Branch unit) tablet citalopram 2021-0 Yes 40mg Take 40 mg U nivers 40 mg 7-28 by mouth ity of tablet 09:30: daily. [address] Branch BIOTIN ORAL 2021-0 Yes Take by Uni vers 7-28 mouth. ity of 09:30: [address] Branch docusate 0 Yes Take by Univer s sodium 7-28 mouth. ity of (STOOL 09:30: [place] SOFTENER 54 Medical ORAL) Branch aspirin 81 2021-0 Yes 81mg Take 81 mg U nivers mg chewable 7-28 by mouth ity of tablet 09:30: daily. [address] Branch Cholecalcif 0 Yes Take by Uni vers mirian, 7-28 mouth. ity of Vitamin D3, 09:30: [place] 50 mcg 54 Medical (2,000 Branch unit) tablet citalopram 2021-0 Yes 40mg Take 40 mg U nivers 40 mg 7-28 by mouth ity of tablet 09:30: daily. [address] BIOTIN ORAL 2021-0 Yes Take by Uni vers 7-28 mouth. ity of 09:30: [address] docusate 2021-0 Yes Take by Univer s sodium 7-28 mouth. ity of (STOOL 09:30: [place] SOFTENER 54 Medical ORAL) Branch aspirin 81 2021-0 Yes 81mg Take 81 mg U nivers mg chewable 7-28 by mouth ity of tablet 09:30: daily. [address] Branch Cholecalcif 2021-0 Yes Take by Uni vers mirian, 7-28 mouth. ity of Vitamin D3, 09:30: [place] 50 mcg 54 Medical (2,000 Branch unit) tablet citalopram 2021-0 Yes 40mg Take 40 mg U nivers 40 mg 7-28 by mouth ity of tablet 09:30: daily. [address] BIOTIN ORAL 2021-0 Yes Take by Uni vers 7-28 mouth. ity of 09:30: [address] Branch docusate 2021-0 Yes Take by Univer s sodium 7-28 mouth. ity of (STOOL 09:30: [place] [address] Medical ORAL) Branch aspirin 81 2021-0 Yes 81mg Take 81 mg U nivers mg chewable 7-28 by mouth ity of tablet 09:30: daily. [address] Branch Cholecalcif 2021-0 Yes Take by Uni vers mirian, 7-28 mouth. ity of Vitamin D3, 09:30: [place] [address] Medical (2,000 Branch unit) tablet citalopram 2021-0 Yes 40mg Take 40 mg U nivers 40 mg 7-28 by mouth ity of tablet 09:30: daily. [address] BIOTIN ORAL 2021-0 Yes Take by Uni vers 7-28 mouth. ity of 09:30: [address] docusate 0 Yes Take by Univer s sodium 7-28 mouth. ity of (STOOL 09:30: [place] [address] Medical ORAL) Branch aspirin 81 2021-0 Yes 81mg Take 81 mg U nivers mg chewable 7-28 by mouth ity of tablet 09:30: daily. [address] Cholecalcif 2021-0 Yes Take by Uni vers mirian, 7-28 mouth. ity of Vitamin D3, 09:30: [place] [address] Medical (2,000 Branch unit) tablet citalopram 2021-0 Yes 40mg Take 40 mg U nivers 40 mg 7-28 by mouth ity of tablet 09:30: daily. [address] BIOTIN ORAL 2021-0 Yes Take by Uni vers 7-28 mouth. ity of 09:30: [address] docusate 2021-0 Yes Take by Univer s sodium 7-28 mouth. ity of (STOOL 09:30: [place] [address] Medical ORAL) Branch aspirin 81 2021-0 Yes 81mg Take 81 mg U nivers mg chewable 7-28 by mouth ity of tablet 09:30: daily. [address] Branch Cholecalcif 2021-0 Yes Take by Uni vers mirian, 7-28 mouth. ity of Vitamin D3, 09:30: [place] 50 mcg 54 Medical (2,000 Branch unit) tablet citalopram 2021-0 Yes 40mg Take 40 mg U nivers 40 mg 7-28 by mouth ity of tablet 09:30: daily. [address] Branch BIOTIN ORAL 2021-0 Yes Take by Uni vers 7-28 mouth. ity of 09:30: [address] Branch docusate 2021-0 Yes Take by Univer s sodium 7-28 mouth. ity of (STOOL 09:30: [place] SOFTENER Medical ORAL) Branch aspirin 81 2021-0 Yes 81mg Take 81 mg U nivers mg chewable 7-28 by mouth ity of tablet 09:30: daily. [address] Branch Cholecalcif 2021-0 Yes Take by Uni vers mirian, 7-28 mouth. ity of Vitamin D3, 09:30: [place] 50 mcg 54 Medical (2,000 Branch unit) tablet citalopram 2021-0 Yes 40mg Take 40 mg U nivers 40 mg 7-28 by mouth ity of tablet 09:30: daily. [address] BIOTIN ORAL 2021-0 Yes Take by Uni vers 7-28 mouth. ity of 09:30: [address] Branch docusate 2021-0 Yes Take by Univer s sodium 7-28 mouth. ity of (STOOL 09:30: [place] [address] Medical ORAL) Branch aspirin 81 2021-0 Yes 81mg Take 81 mg U nivers mg chewable 7-28 by mouth ity of tablet 09:30: daily. [address] Cholecalcif 2021-0 Yes Take by Uni vers mirian, 7-28 mouth. ity of Vitamin D3, 09:30: [place] [address] Medical (2,000 Branch unit) tablet citalopram 2021-0 Yes 40mg Take 40 mg U nivers 40 mg 7-28 by mouth ity of tablet 09:30: daily. [address] Branch BIOTIN ORAL 2021-0 Yes Take by Uni vers 7-28 mouth. ity of 09:30: [address] Branch docusate 2021-0 Yes Take by Univer s sodium 7-28 mouth. ity of ([facility] [place] [facility] Branch aspirin 81 2-0 Yes 81mg Take 81 mg U nivers mg chewable 7-28 by mouth ity of tablet 09:30: daily. [address] Branch Cholecalcif 2-0 Yes Take by Uni vers mirian, 7-28 mouth. ity of Vitamin D3, 09:30: [place] 50 mcg 54 Medical (2,000 Branch unit) tablet citalopram 2-0 Yes 40mg Take 40 mg U nivers 40 mg 7-28 by mouth ity of tablet 09:30: daily. [address] BIOTIN ORAL 2021-0 Yes Take by Uni vers 7-28 mouth. ity of 09:30: [address] Branch docusate 2021-0 Yes Take by Univer s sodium 7-28 mouth. ity of (STOOL 09:30: [place] SOFTENER 54 Medical ORAL) Branch aspirin 81 2021-0 Yes 81mg Take 81 mg U nivers mg chewable 7-28 by mouth ity of tablet 09:30: daily. [address] Cholecalcif 2021-0 Yes Take by Uni vers mirian, 7-28 mouth. ity of Vitamin D3, 09:30: [place] 50 mcg 54 Medical (2,000 Branch unit) tablet citalopram 2-0 Yes 40mg Take 40 mg U nivers 40 mg 7-28 by mouth ity of tablet 09:30: daily. [address] BIOTIN ORAL 2021-0 Yes Take by Uni vers 7-28 mouth. ity of 09:30: [address] docusate 2021-0 Yes Take by Univer s sodium 7-28 mouth. ity of (STOOL 09:30: [place] SOFTENER Medical ORAL) Branch aspirin 81 2021-0 Yes 81mg Take 81 mg U nivers mg chewable 7-28 by mouth ity of tablet 09:30: daily. [address] Branch Cholecalcif 2021-0 Yes Take by Uni vers mirian, 7-28 mouth. ity of Vitamin D3, 09:30: [place] 50 mcg 54 Medical (2,000 Branch unit) tablet citalopram 2-0 Yes 40mg Take 40 mg U nivers 40 mg 7-28 by mouth ity of tablet 09:30: daily. [address] Branch BIOTIN ORAL 2-0 Yes Take by Uni vers 7-28 mouth. ity of 09:30: [address] Branch docusate 2-0 Yes Take by Univer s sodium 7-28 mouth. ity of (STOOL 09:30: [place] SOFTENER 54 Medical ORAL) Branch albuterol Yes [id number] 2{puff} Inhale 2 Univers 90 6-23 Puffs ity of mcg/actuati 00:00: every 6 [place] as on inhaler 00 (six) Medical hours as Branch needed for Wheezing or Shortness of Breath. tiotropium Yes [id number] 1{puff} Inhale 1 [facility] bromide 6-23 Puff ity of (SPIRIVA 00:00: daily. [place] RESPIMAT) Medical 2.5 Branch mcg/actuati on Mist albuterol Yes [id number] 2{puff} Inhale 2 Univers 90 6-23 Puffs ity of mcg/actuati 00:00: every 6 [place] as on inhaler 00 (six) Medical hours as Branch needed for Wheezing or Shortness of Breath. tiotropium Yes [id number] 1{puff} Inhale 1 [facility] bromide 6-23 Puff ity of (SPIRIVA 00:00: daily. [place] RESPIMAT) Medical 2.5 Branch mcg/actuati on Mist albuterol Yes [id number] 2{puff} Inhale 2 Univers 90 6-23 Puffs ity of mcg/actuati 00:00: every 6 [place] as on inhaler 00 (six) Medical hours as Branch needed for Wheezing or Shortness of Breath. tiotropium Yes [id number] 1{puff} Inhale 1 [facility] bromide 6-23 Puff ity of (SPIRIVA 00:00: daily. [place] RESPIMAT) Medical 2.5 Branch mcg/actuati on Mist albuterol Yes [id number] 2{puff} Inhale 2 Univers 90 6-23 Puffs ity of mcg/actuati 00:00: every 6 [place] as on inhaler 00 (six) Medical hours as Branch needed for Wheezing or Shortness of Breath. tiotropium Yes [id number] 1{puff} Inhale 1 [facility] bromide 6-23 Puff ity of (SPIRIVA 00:00: daily. [place] RESPIMAT) Medical 2.5 Branch mcg/actuati on Mist albuterol Yes [id number] 2{puff} Inhale 2 Univers 90 6-23 Puffs ity of mcg/actuati 00:00: every 6 [place] as on inhaler 00 (six) Medical hours as Branch needed for Wheezing or Shortness of Breath. tiotropium Yes [id number] 1{puff} Inhale 1 [facility] bromide 6-23 Puff ity of (SPIRIVA 00:00: daily. [place] RESPIMAT) 00 Medical 2.5 Branch mcg/actuati on Mist albuterol Yes [id number] 2{puff} Inhale 2 [facility] 90 6-23 Puffs ity of mcg/actuati 00:00: every 6 [place] on inhaler 00 (six) Medical hours as Branch needed for Wheezing or Shortness of Breath. tiotropium Yes [id number] 1{puff} Inhale 1 [facility] bromide 6-23 Puff ity of (SPIRIVA 00:00: daily. [place] RESPIMAT) 00 Medical 2.5 Branch mcg/actuati on Mist albuterol Yes [id number] 2{puff} Inhale 2 Univers 90 6-23 Puffs ity of mcg/actuati 00:00: every 6 [place] on inhaler 00 (six) Medical hours as Branch needed for Wheezing or Shortness of Breath. tiotropium Yes [id number] 1{puff} Inhale 1 [facility] bromide 6-23 Puff ity of (SPIRIVA 00:00: daily. [place] RESPIMAT) 00 Medical 2.5 Branch mcg/actuati on Mist albuterol Yes [id number] 2{puff} Inhale 2 [facility] 90 6-23 Puffs ity of mcg/actuati 00:00: every 6 [place] on inhaler 00 (six) Medical hours as Branch needed for Wheezing or Shortness of Breath. tiotropium Yes [id number] 1{puff} Inhale 1 [facility] bromide 6-23 Puff ity of (SPIRIVA 00:00: daily. [place] RESPIMAT) 00 Medical 2.5 Branch mcg/actuati on Mist albuterol Yes [id number] 2{puff} Inhale 2 [facility] 90 6-23 Puffs ity of mcg/actuati 00:00: every 6 [place] on inhaler 00 (six) Medical hours as Branch needed for Wheezing or Shortness of Breath. tiotropium Yes [id number] 1{puff} Inhale 1 [facility] bromide 6-23 Puff ity of (SPIRIVA 00:00: daily. [place] RESPIMAT) 00 Medical 2.5 Branch mcg/actuati on Mist albuterol Yes [id number] 2{puff} Inhale 2 [facility] 90 6-23 Puffs ity of mcg/actuati 00:00: every 6 [place] on inhaler 00 (six) Medical hours as Branch needed for Wheezing or Shortness of Breath. tiotropium Yes [id number] 1{puff} Inhale 1 [facility] bromide 6-23 Puff ity of (SPIRIVA 00:00: daily. [place] RESPIMAT) 00 Medical 2.5 Branch mcg/actuati on Mist albuterol Yes [id number] 2{puff} Inhale 2 [facility] 90 6-23 Puffs ity of mcg/actuati 00:00: every 6 [place] on inhaler 00 (six) Medical hours as Branch needed for Wheezing or Shortness of Breath. tiotropium Yes [id number] 1{puff} Inhale 1 [facility] bromide 6-23 Puff ity of (SPIRIVA 00:00: daily. [place] RESPIMAT) 00 Medical 2.5 Branch mcg/actuati on Mist albuterol Yes [id number] 2{puff} Inhale 2 [facility] 90 6-23 Puffs ity of mcg/actuati 00:00: every 6 [place] on inhaler 00 (six) Medical hours as Branch needed for Wheezing or Shortness of Breath. tiotropium Yes [id number] 1{puff} Inhale 1 [facility] bromide 6-23 Puff ity of (SPIRIVA 00:00: daily. [place] RESPIMAT) 00 Medical 2.5 Branch mcg/actuati on Mist albuterol Yes [id number] 2{puff} Inhale 2 [facility] 90 6-23 Puffs ity of mcg/actuati 00:00: every 6 [place] on inhaler 00 (six) Medical hours as Branch needed for Wheezing or Shortness of Breath. tiotropium Yes [id number] 1{puff} Inhale 1 [facility] bromide 6-23 Puff ity of (SPIRIVA 00:00: daily. [place] RESPIMAT) 00 Medical 2.5 Branch mcg/actuati on Mist albuterol Yes [id number] 2{puff} Inhale 2 [facility] 90 6-23 Puffs ity of mcg/actuati 00:00: every 6 [place] on inhaler 00 (six) Medical hours as Branch needed for Wheezing or Shortness of Breath. tiotropium Yes [id number] 1{puff} Inhale 1 [facility] bromide 6-23 Puff ity of (SPIRIVA 00:00: daily. [place] RESPIMAT) 00 Medical 2.5 Branch mcg/actuati on Mist albuterol Yes [id number] 2{puff} Inhale 2 [facility] 90 6-23 Puffs ity of mcg/actuati 00:00: every 6 [place] on inhaler 00 (six) Medical hours as Branch needed for Wheezing or Shortness of Breath. tiotropium Yes [id number] 1{puff} Inhale 1 [facility] bromide 6-23 Puff ity of (SPIRIVA 00:00: daily. [place] RESPIMAT) 00 Medical 2.5 Branch mcg/actuati on Mist albuterol Yes [id number] 2{puff} Inhale 2 [facility] 90 6-23 Puffs ity of mcg/actuati 00:00: every 6 [place] on inhaler 00 (six) Medical hours as Branch needed for Wheezing or Shortness of Breath. tiotropium Yes [id number] 1{puff} Inhale 1 [facility] bromide 6-23 Puff ity of (SPIRIVA 00:00: daily. [place] RESPIMAT) 00 Medical 2.5 Branch mcg/actuati on Mist albuterol Yes [id number] 2{puff} Inhale 2 [facility] 90 6-23 Puffs ity of mcg/actuati 00:00: every 6 [place] on inhaler 00 (six) Medical hours as Branch needed for Wheezing or Shortness of Breath. tiotropium Yes [id number] 1{puff} Inhale 1 [facility] bromide 6-23 Puff ity of (SPIRIVA 00:00: daily. [place] RESPIMAT) Medical 2.5 Branch mcg/actuati on Mist albuterol Yes [id number] 2{puff} Inhale 2 [facility] 90 6-23 Puffs ity of mcg/actuati 00:00: every 6 [place] on inhaler 00 (six) Medical hours as Branch needed for Wheezing or Shortness of Breath. tiotropium Yes [id number] 1{puff} Inhale 1 [facility] bromide 6-23 Puff ity of (SPIRIVA 00:00: daily. [place] RESPIMAT) Medical 2.5 Branch mcg/actuati on Mist albuterol Yes [id number] 2{puff} Inhale 2 [facility] 90 6-23 Puffs ity of mcg/actuati 00:00: every 6 [place] on inhaler 00 (six) Medical hours as Branch needed for Wheezing or Shortness of Breath. tiotropium Yes [id number] 1{puff} Inhale 1 [facility] bromide 6-23 Puff ity of (SPIRIVA 00:00: daily. [place] RESPIMAT) Medical 2.5 Branch mcg/actuati on Mist albuterol Yes [id number] 2{puff} Inhale 2 [facility] 90 6-23 Puffs ity of mcg/actuati 00:00: every 6 [place] on inhaler 00 (six) Medical hours as Branch needed for Wheezing or Shortness of Breath. tiotropium Yes [id number] 1{puff} Inhale 1 [facility] bromide 6-23 Puff ity of (SPIRIVA 00:00: daily. [place] RESPIMAT) Medical 2.5 Branch mcg/actuati on Mist albuterol Yes [id number] 2{puff} Inhale 2 Univers 90 6-23 Puffs ity of mcg/actuati 00:00: every 6 [place] on inhaler 00 (six) Medical hours as Branch needed for Wheezing or Shortness of Breath. tiotropium Yes [id number] 1{puff} Inhale 1 [facility] bromide 6-23 Puff ity of (SPIRIVA 00:00: daily. [place] RESPIMAT) Medical 2.5 Branch mcg/actuati on Mist albuterol Yes [id number] 2{puff} Inhale 2 Univers 90 6-23 Puffs ity of mcg/actuati 00:00: every 6 [place] on inhaler 00 (six) Medical hours as Branch needed for Wheezing or Shortness of Breath. tiotropium Yes [id number] 1{puff} Inhale 1 [facility] bromide 6-23 Puff ity of (SPIRIVA 00:00: daily. [place] RESPIMAT) Medical 2.5 Branch mcg/actuati on Mist albuterol Yes [id number] 2{puff} Inhale 2 [facility] 90 6-23 Puffs ity of mcg/actuati 00:00: every 6 [place] as on inhaler 00 (six) Medical hours as Branch needed for Wheezing or Shortness of Breath. tiotropium Yes [id number] 1{puff} Inhale 1 [facility] bromide 6-23 Puff ity of (SPIRIVA 00:00: daily. [place] RESPIMAT) 00 Medical 2.5 Branch mcg/actuati on Mist albuterol Yes [id number] 2{puff} Inhale 2 Univers 90 6-23 Puffs ity of mcg/actuati 00:00: every 6 [place] on inhaler 00 (six) Medical hours as Branch needed for Wheezing or Shortness of Breath. tiotropium Yes [id number] 1{puff} Inhale 1 [facility] bromide 6-23 Puff ity of (SPIRIVA 00:00: daily. [place] RESPIMAT) 00 Medical 2.5 Branch mcg/actuati on Mist albuterol Yes [id number] 2{puff} Inhale 2 Univers 90 6-23 Puffs ity of mcg/actuati 00:00: every 6 [place] on inhaler 00 (six) Medical hours as Branch needed for Wheezing or Shortness of Breath. tiotropium Yes [id number] 1{puff} Inhale 1 [facility] bromide 6-23 Puff ity of (SPIRIVA 00:00: daily. [place] RESPIMAT) 00 Medical 2.5 Branch mcg/actuati on Mist diazePAM Yes [id number] Take by [facility] (Valium) 2 4-07 mouth one Heal th MG tablet 00:00: hour prior 00 to procedure diazePAM Yes Take by U T (Valium) 2 08-20 mouth one Heal th MG tablet 00:00: hour prior 00 to procedure diazePAM 2021- No Take by [facility] (Valium) 2 08-20 mouth one Hea lth MG tablet 00:00: 00:00 hour prior 00 :00 to procedure diazePAM 2021- No [id number] Take by UT (Valium) 2 08-20 mouth one Hea lth MG tablet 00:00: 00:00 hour prior 00 :00 to procedure levothyroxi Yes [id number] 112ug Take 1 Univers ne 112 mcg 4-04 tablet by ity of tablet 00:00: mouth [place] 00 every Medical morning. Branch levothyroxi Yes [id number] 112ug Take 1 Univers ne 112 mcg 4-04 tablet by ity of tablet 00:00: mouth [place] 00 every Medical morning. Branch levothyroxi 2021- No [id number] 112ug Take 1 Univers ne 112 mcg 4-04 08-11 tablet by ity of tablet 00:00: 00:00 mouth [place] 00 :00 every Medical morning. Branch blood sugar 2020-05- No Use 2 Univ ers diagnostic 0-28 08-09 times ity of (ONETOUCH 00:00: 00:00 daily. [place] VERIO TEST 00 :00 E11.8 Medical STRIPS) Branch strip methocarbam 2020-05- No [id number] 500mg Take 1 Univers oL 0-18 08-09 tablet by ity of (ROBAXIN) 00:00: 00:00 mouth [place] 500 mg 00 :00 every 6 Medical tablet (six) Branch hours as needed (MUSCLE SPASM). gabapentin 2020-05- No [id number] 300mg Take 1 Univers 300 mg 0-18 08-09 capsule by ity of capsule 00:00: 00:00 mouth 3 [place] 00 :00 (three) Medical times Branch daily. amoxicillin 2021- No [id number] TAKE 4 UT (Amoxil) 01-01 08- 9100 CAPSULES Health 500 MG 00:00: 00:00 ONE HOUR capsule 00 :00 BEFORE PROCEDURE. TAKE 4 CAPSULES ONE HOUR AFTER PROCEDURE. oxyCODONE-a Yes [id number] 1{tbl} Take 1 UT cetaminophe 6-12 tablet by [facility] n 00:00: mouth (Percocet) 00 every 4 10-325 MG (four) tablet hours if needed (pain) for up to 60 doses. oxyCODONE-a Yes [id number] 1{tbl} Take 1 UT cetaminophe 6-12 tablet by [facility] n 00:00: mouth (Percocet) 00 every 4 10-325 MG (four) tablet hours if needed (pain) for up to 60 doses. oxyCODONE-a 2021- No [id number] 1{tbl} Take 1 UT cetaminophe 6-12 11-01 tablet by He alth n 00:00: 00:00 mouth (Percocet) 00 :00 every 4 10-325 MG (four) tablet hours if needed (pain) for up to 60 doses. oxyCODONE-a 2021- No [id number] 1{tbl} Take 1 UT cetaminophe 6-12 11- tablet by He alth n 00:00: 00:00 mouth (Percocet) 00 :00 every 4 10-325 MG (four) tablet hours if needed (pain) for up to 60 doses. flash 2021- No [id number] 1{each} 1 Each Un pamela glucose 6- 08-09 daily. Use ity o f scanning 00:00: 00:[place] reader 00 :00 E11.8 Medical (FREESTYLE Branch MARINA 2 READER[place] [facility] [place]- [place] [id number] 1{each} 1 Each Un pamela glucose 6- 08-09 every 14 ity of sensor 00:00: 00:00 (fourteen[place] (FREESTYLE 00 :00 days. Medical MARINA 2 Change Branch SENSOR) Kit Sensor every 14 days. Dx E11.8 glucose Yes USE 1 UT blood (True 6-03 STRIP TO Heal th Metrix 08:47: CHECK Blood 08 GLUCOSE Glucose TWICE Test) test DAILY for strip 90 glucose Yes USE 1 UT blood (True 6-03 STRIP TO Heal th Metrix 08:47: CHECK Blood 08 GLUCOSE Glucose TWICE Test) test DAILY strip Albuterol Yes 1 ml as UT Sulfate 2.5 10-16 needed Health MG/0.5ML 08:47: nebulizer 07 solution Tofacitinib Yes 11mg Take 11 mg UT Citrate ER 03 by mouth. Heal th 11 MG 08:47: tablet 06 sustained-r elease 24 hour levothyroxi Yes 1 tablet UT ne 10-16 on an Health (Synthroid, 08:47: empty Levoxyl) 03 stomach in 112 MCG the tablet morning empaglifloz Yes 1 tablet UT in 03 Health (Jardiance) 08:47: 10 MG 01 citalopram Yes take one UT (CeleXA) 40 10-16 tablet by Hea lth MG tablet 08:47: mouth once 00 daily docusate Yes 1{tbl} Take 1 UT sodium 10-16 tablet by Health (Colace) 08:47: mouth. 100 MG 00 tablet Blood Yes one UT Glucose 10-16 Health Monitoring 08:46: Suppl 59 (FreeStyle Lite) device Cholecalcif Yes not UT mirian 10-16 defined Health (Vitamin D) 08:46: 125 MCG 59 (5000 UT) capsule atorvastati Yes 1 (one) UT n (Lipitor) 10-16 time each Hea lth 10 MG 08:46: day at the tablet 58 same time. HYDROcodone Yes [place] [facility] -acetaminop 10-16 Health hen ([place]) 08:46: 10-325 MG 57 tablet HYDROcodone Yes [place] UT -acetaminop 10-16 Health hen ([place]) 08:46: 10-325 MG 57 tablet Alirocumab Yes 1 ml UT (Praluent) 10-16 Health 75 MG/ML 08:46: solution 57 auto-inject or simvastatin Yes 1 (one) UT (Zocor) 5 -03 time each Healt h MG tablet 08:46: day at the 57 same time. Glucose Yes USE 1 UT Blood (TRUE 10-16 STRIP TO Heal th METRIX 08:46: CHECK BLOOD 57 GLUCOSE GLUCOSE TWICE TEST ) DAILY Cholecalcif 2020-0 Yes UT mirian 603 Health (Vitamin D) 08:46: 10 MCG/ML 57 liquid Cholecalcif 2020-0 Yes Vitamin D U T mirian 03 Health (Vitamin D) 08:46: 10 MCG/ML 57 liquid Lancets 2020-0 Yes Q12H every 12 UT Super Thin 6-03 (twelve) Healt h 28G misc 08:46: hours. 56 Blood 2020-0 Yes one UT Glucose 10-16 Health Calibration 08:46: (GLUCOMETER 56 DEX HIGH CONTROL ) Lancets 2020-0 Yes one UT Super Thin 10-16 Health 28G misc 08:46: 56 Levothyroxi 2020-0 Yes 1 (one) UT ne Sodium 6-03 time each Healt h 112 MCG/ML 08:46: day at the solution 56 same time. HYDROcodone 2020-0 Yes UT -acetaminop 10-16 Health hen ([place]) 08:46: 10-325 MG 56 tablet aspirin 2020-0 Yes 1 (one) UT (ASPIRIN) 6-03 time each Healt h 81 MG 08:46: day at the chewable 55 same time. tablet Blood 2020-0 Yes Q12H every 12 UT Glucose-BP 10-16 (twelve) Healt h Monitor 08:46: hours. device 55 Glucose 0 Yes one UT Blood (COOL 10-16 Health BLOOD 08:46: GLUCOSE 55 TEST STRIPS ) citalopram 2020-0 Yes 1 (one) UT (CeleXA) 10 6-03 time each Hea lth MG/5ML 08:46: day at the solution 55 same time. Loratadine 2020-0 Yes 1 (one) UT (Claritin) 6-03 time each Heal th 10 MG 08:46: day at the capsule 55 same time. folic acid 2020-0 Yes TAKE 1 UT (Folvite) 1 6-03 TABLET BY Hea lth mg/mL 08:46: MOUTH ONCE solution 55 DAILY glimepiride 2020-0 Yes 1 (one) UT (Amaryl) 2 6-03 time each Heal th MG tablet 08:46: day at the 55 same time. albuterol 2021-0 Yes Q6H every 6 UT (5 MG/ML) 6 (six) Health 0.5% 08:35: hours. nebulizer 42 solution Alcohol Yes as UT Swabs 03 directed Health (Alcohol 08:35: Prep) pads 42 Alcohol 2020-0 Yes as UT Swabs 6-03 directed Health (Alcohol 08:30: Prep) pads 55 Alcohol 2020-0 Yes as UT Swabs 6-03 directed Health (Alcohol 08:30: Prep) pads 55 aspirin 2020-0 Yes 1 (one) UT (ASPIRIN) 6-03 time each Healt h 81 MG 08:30: day at the chewable 55 same time. tablet Glucose 0 Yes Q12H every 12 UT Blood 6-03 (twelve) Health (BLOOD 08:30: hours. GLUCOSE 55 TEST ) Glucose Yes one UT Blood (COOL 10-16 Health BLOOD 08:30: GLUCOSE 55 TEST STRIPS ) Blood 0 Yes one n/s UT Glucose 03 use as Health Calibration 08:30: directed (GLUCOMETER 55 for 90 DEX HIGH days CONTROL ) Lancets 2020-0 Yes Q12H every 12 UT Super Thin 6-03 (twelve) Healt h 28G misc 08:30: hours. 55 Lancets 0 Yes one UT Super Thin - Health 28G misc 08:30: 55 loratadine Yes Take by UT (Claritin 6-03 mouth. Health Reditabs) 5 08:30: MG tablet 55 dispersible dissolvable tablet oxyCODONE-a Yes [id number] 1{tbl} Take 1 UT cetaminophe 6-03 tablet by [facility] n 00:00: mouth (Percocet) 00 every 4 10-325 MG (four) tablet hours if needed (pain) for up to 60 doses. Narcan 4 Yes UT MG/0.1ML 10-16 Health nasal spray 00:00: 00 oxyCODONE-a Yes [id number] 1{tbl} Take 1 UT cetaminophe 6-03 tablet by [facility] n 00:00: mouth (Percocet) 00 every 4 10-325 MG (four) tablet hours if needed (pain) for up to 60 doses. oxyCODONE-a 2021- No [id number] 1{tbl} Take 1 UT cetaminophe 6-03 - tablet by He alth n 00:00: 00:00 mouth (Percocet) 00 :00 every 4 10-325 MG (four) tablet hours if needed (pain) for up to 60 doses. oxyCODONE-a 2021- No [id number] 1{tbl} Take 1 UT cetaminophe 6-03 - tablet by He alth n 00:00: 00:00 mouth (Percocet) 00 :00 every 4 10-325 MG (four) tablet hours if needed (pain) for up to 60 doses. Narcan 4 2020-2021- No UT MG/0.1ML -02-15 Health nasal spray 00:00: 00:00 00 :00 Narcan 4 2021- No UT MG/0.1ML 10-16 Health nasal spray 00:00: 00:00 00 :00 oxyCODONE-a Yes [id number] 1{tbl} Take 1 UT cetaminophe 5-13 tablet by [facility] n 00:00: mouth (Percocet) 00 every 4 10-325 MG (four) tablet hours if needed (pain) for up to 60 doses. oxyCODONE-a Yes [id number] 1{tbl} Take 1 UT cetaminophe 5-13 tablet by [facility] n 00:00: mouth (Percocet) 00 every 4 10-325 MG (four) tablet hours if needed (pain) for up to 60 doses. oxyCODONE-a Yes [id number] 1{tbl} Take 1 UT cetaminophe 5-13 tablet by [facility] n 00:00: mouth (Percocet) 00 every 4 10-325 MG (four) tablet hours if needed (pain) for up to 60 doses. oxyCODONE-a 2021- No [id number] 1{tbl} Take 1 UT cetaminophe 5-13 - tablet by He alth n 00:00: 00:00 mouth (Percocet) 00 :00 every 4 10-325 MG (four) tablet hours if needed (pain) for up to 60 doses. oxyCODONE-a 2021- No [id number] 1{tbl} Take 1 UT cetaminophe 5-13 03-16 tablet by He betty sanchez 00:00: 00:00 mouth (Percocet) 00 :00 every 4 10-325 MG (four) tablet hours if needed (pain) for up to 60 doses. OneTouch Yes USE UT Verio test 5- DIRECTED Healt h strip 00:00: TO CHECK 00 BLOOD SUGAR TWICE DAILY OneTouch 0 Yes USE UT Verio test - DIRECTED Healt h strip 00:00: TO CHECK 00 BLOOD SUGAR TWICE DAILY OneTouch 0 Yes USE UT Verio test - DIRECTED Healt h strip 00:00: TO CHECK 00 BLOOD SUGAR TWICE DAILY OneTouch 0 Yes USE UT Verio test - DIRECTED Healt h strip 00:00: TO CHECK 00 BLOOD SUGAR TWICE DAILY OneTouch 0 Yes USE UT Verio test - DIRECTED Healt h strip 00:00: TO CHECK 00 BLOOD SUGAR TWICE DAILY OneTouch 0 Yes USE UT Verio test 5-11 DIRECTED Healt h strip 00:00: TO CHECK 00 BLOOD SUGAR TWICE DAILY OneTouch 0 Yes USE UT Verio test - DIRECTED Healt h strip 00:00: TO CHECK 00 BLOOD SUGAR TWICE DAILY OneTouch 0 Yes USE UT Verio test 09-23 DIRECTED Healt h strip 00:00: TO CHECK 00 BLOOD SUGAR TWICE DAILY OneTouch 0 2022- No USE UT Verio test -05-31 DIRECTED Heal th strip 00:00: 00:00 TO CHECK 00 :00 BLOOD SUGAR TWICE DAILY OneTouch 2020-0 2022- No USE UT Verio test -05-31 DIRECTED Heal th strip 00:00: 00:00 TO CHECK 00 :00 BLOOD SUGAR TWICE DAILY levothyroxi Yes 112ug Take 112 U T ne 5-10 mcg by Health (Synthroid, 00:00: mouth 1 Levoxyl) 00 (one) time 112 MCG each day tablet in the morning. glucose 2021-0 Yes USE UT blood 5-10 DIRECTED Health (OneTouch 00:00: TO CHECK Verio) test 00 BLOOD strip SUGAR TWICE DAILY. X:E11.8 glucose 2020-0 Yes USE UT blood 5-10 DIRECTED Health (OneTouch 00:00: TO CHECK Verio) test 00 BLOOD strip SUGAR TWICE DAILY. X:E11.8 glucose 2020-0 Yes USE UT blood 5-10 DIRECTED Health (OneTouch 00:00: TO CHECK Verio) test 00 BLOOD strip SUGAR TWICE DAILY. X:E11.8 glucose 2020-0 Yes USE UT blood 5-10 DIRECTED Health (OneTouch 00:00: TO CHECK Verio) test 00 BLOOD strip SUGAR TWICE DAILY. X:E11.8 glucose 2020-0 Yes USE UT blood 5-10 DIRECTED Health (OneTouch 00:00: TO CHECK Verio) test 00 BLOOD strip SUGAR TWICE DAILY. X:E11.8 glucose 2020- Yes USE UT blood 5-10 DIRECTED Health (OneTouch 00:00: TO CHECK Verio) test 00 BLOOD strip SUGAR TWICE DAILY. X:E11.8 glucose 2020- Yes USE UT blood 5-10 DIRECTED Health (OneTouch 00:00: TO CHECK Verio) test 00 BLOOD strip SUGAR TWICE DAILY. X:E11.8 glucose 2020-0 Yes USE UT blood 5-10 DIRECTED Health (OneTouch 00:00: TO CHECK Verio) test 00 BLOOD strip SUGAR TWICE DAILY. X:E11.8 glucose 2020- Yes USE UT blood 5-10 DIRECTED Health (OneTouch 00:00: TO CHECK Verio) test 00 BLOOD strip SUGAR TWICE DAILY. X:E11.8 glucose 2020-0 Yes USE UT blood 5-10 DIRECTED Health (OneTouch 00:00: TO CHECK Verio) test 00 BLOOD strip SUGAR TWICE DAILY. X:E11.8 glucose 2020-0 Yes USE UT blood 5-10 DIRECTED Health (OneTouch 00:00: TO CHECK Verio) test 00 BLOOD strip SUGAR TWICE DAILY. X:E11.8 glucose 2020- Yes USE UT blood 5-10 DIRECTED Health (OneTouch 00:00: TO CHECK Verio) test 00 BLOOD strip SUGAR TWICE DAILY. X:E11.8 glucose 2020-0 Yes USE UT blood 5-10 DIRECTED Health (OneTouch 00:00: TO CHECK Verio) test 00 BLOOD strip SUGAR TWICE DAILY. X:E11.8 glucose 0 Yes USE UT blood 5-10 DIRECTED Health (OneTouch 00:00: TO CHECK Verio) test 00 BLOOD strip SUGAR TWICE DAILY. X:E11.8 glucose 0 Yes USE UT blood 5-10 DIRECTED Health (OneTouch 00:00: TO CHECK Verio) test 00 BLOOD strip SUGAR TWICE DAILY. X:E11.8 levothyroxi 2021- No 112ug Take 112 UT ne 5-10 10-03 mcg by Health (Synthroid, 00:00: 00:00 mouth 1 Levoxyl) 00 :00 (one) time 112 MCG each day tablet in the morning. levothyroxi 2021- No 112ug Take 112 UT ne 5-10 10-03 mcg by [facility] (Synthroid, 00:00: 00:00 mouth 1 Levoxyl) 00 :00 (one) time 112 MCG each day tablet in the morning. glimepiride Yes TAKE 1 UT (Amaryl) 2 4-26 TABLET BY Heal th MG tablet 00:00: MOUTH 00 EVERY DAY WITH BREAKFAST OR THE FIRST MAIN MEAL OF THE DAY glimepiride 2021- No TAKE 1 UT (Amaryl) 2 4-26 10-03 TABLET BY Hea lth MG tablet 00:00: 00:00 MOUTH 00 :00 EVERY DAY WITH BREAKFAST OR THE FIRST MAIN MEAL OF THE DAY glimepiride 2021- No TAKE 1 UT (Amaryl) 2 4-26 10-03 TABLET BY Hea lth MG tablet 00:00: 00:00 MOUTH 00 :00 EVERY DAY WITH BREAKFAST OR THE FIRST MAIN MEAL OF THE DAY HYDROcodone Yes 1{tbl} Take 1 UT -acetaminop 4-21 tablet by Hea lt hen ([place]) 00:00: mouth 10-325 MG 00 every 4 tablet (four) hours if needed. HYDROcodone Yes TAKE 1 UT -acetaminop 4-21 TABLET Health hen ([place]) 00:00: EVERY 4 10-325 MG 00 HOURS tablet NEEDED FOR PAIN. HYDROcodone 2021- No 1{tbl} Take 1 U T -acetaminop 4-21 10-03 tablet by He alth hen ([place]) 00:00: 00:00 mouth 10-325 MG 00 :00 every 4 tablet (four) hours if needed. HYDROcodone 2021- No TAKE 1 UT -acetaminop 4-21 10-03 TABLET Healt h hen ([place]) 00:00: 00:00 EVERY 4 10-325 MG 00 :00 HOURS tablet NEEDED FOR PAIN. HYDROcodone 2021- No 1{tbl} Take 1 U T -acetaminop 4-21 10-03 tablet by He alth hen ([place]) 00:00: 00:00 mouth 10-325 MG 00 :00 every 4 tablet (four) hours if needed. HYDROcodone 2021- No TAKE 1 UT -acetaminop 4-21 10-03 TABLET Healt h hen ([place]) 00:00: 00:00 EVERY 4 10-325 MG 00 :00 HOURS tablet NEEDED FOR PAIN. glipiZIDE Yes 1 (one) UT XL 4-13 time each Health (Glucotrol 00:00: day at the XL) 2.5 MG 00 same time. 24 hr tablet glipiZIDE Yes 2.5mg QD Take 2.5 UT XL 4-13 mg by Health (Glucotrol 00:00: mouth 1 XL) 2.5 MG 00 (one) time 24 hr each day tablet with breakfast. simvastatin Yes 5mg Take 5 mg U T (Zocor) 5 4-13 by mouth 1 Heal th MG tablet 00:00: (one) time 00 each day in the evening. Spiriva Yes 1{puff} QD Inhale 1 UT Respimat 4-13 puff 1 Health 2.5 MCG/ACT 00:00: (one) time aerosol 00 each day. solution GlipiZIDE GlipiZIDE No 1{table QD GlipiZIDE ER 2.5 MG ER 2.5 MG 4-13 t_with_ ER 2.5 MG 00:00: breakfa 00 st} GlipiZIDE GlipiZIDE No 1{table QD GlipiZIDE ER 2.5 MG ER 2.5 MG 4-13 t_with_ ER 2.5 MG 00:00: break st} GlipiZIDE GlipiZIDE No 1{table QD GlipiZIDE ER 2.5 MG ER 2.5 MG - t_with_ ER 2.5 MG 00:00: break st} GlipiZIDE GlipiZIDE No 1{table QD GlipiZIDE ER 2.5 MG ER 2.5 MG - t_with_ ER 2.5 MG 00:00: break st} glipiZIDE 2021- No 1 (one) UT XL 08-26 time each Health (Glucotrol 00:00: 00:00 day at the XL) 2.5 MG 00 :00 same time. 24 hr tablet glipiZIDE 2021- No 2.5mg QD Take 2.5 UT XL 08-26 mg by Health (Glucotrol 00:00: 00:00 mouth 1 XL) 2.5 MG 00 :00 (one) time 24 hr each day tablet with breakfast. simvastatin 2021- No 5mg Take 5 mg UT (Zocor) 5 08-26 by mouth 1 [facility] MG tablet 00:00: 00:00 (one) time 00 :00 each day in the evening. Spiriva 2021- No 1{puff} QD Inhale 1 UT Respimat 08-26 puff 1 Health 2.5 MCG/ACT 00:00: 00:00 (one) time aerosol 00 :00 each day. solution glipiZIDE 2021- No 1 (one) UT XL 08-26 time each Health (Glucotrol 00:00: 00:00 day at the XL) 2.5 MG 00 :00 same time. 24 hr tablet glipiZIDE 2021- No 2.5mg QD Take 2.5 UT XL 08-26- mg by Health (Glucotrol 00:00: 00:00 mouth 1 XL) 2.5 MG 00 :00 (one) time 24 hr each day tablet with breakfast. simvastatin 2021- No 5mg Take 5 mg UT (Zocor) 5 08-26 by mouth 1 [facility] MG tablet 00:00: 00:00 (one) time 00 :00 each day in the evening. Spiriva 2021- No 1{puff} QD Inhale 1 UT Respimat 08-26 puff 1 Health 2.5 MCG/ACT 00:00: 00:00 (one) time aerosol 00 :00 each day. solution citalopram Yes 40mg QD Take 40 mg U T (CeleXA) 40 08-21 by mouth 1 [facility] al[facility] MG tablet 00:00: (one) time 00 each day. citalopram 2021- No 40mg QD Take 40 mg UT (CeleXA) 40 08-21 by mouth 1 [facility] MG tablet 00:00: 00:00 (one) time 00 :00 each day. citalopram 2021- No 40mg QD Take 40 mg [facility] (CeleXA) 40 08-21 by mouth 1 [facility] MG tablet 00:00: 00:00 (one) time 00 :00 each day. atorvastati Yes 10mg QD Take 10 mg UT n (Lipitor) 08-19 by mouth 1 [facility] 10 MG 00:00: (one) time tablet 00 each day. atorvastati 2021- No 10mg QD Take 10 mg UT n (Lipitor) 08-19 by mouth 1 [facility] 10 MG 00:00: 00:00 (one) time tablet 00 :00 each day. atorvastati 2021- No 10mg QD Take 10 mg UT n (Lipitor) 08-19- by mouth 1 [facility] 10 MG 00:00: 00:00 (one) time tablet 00 :00 each day. ursodiol Yes 300mg Q.5D Take 300 UT (Actigall) 4-02 mg by Health 300 MG 00:00: mouth 2 capsule 00 (two) times a day. ursodiol 2020-2021- No 300mg Q.5D Take 300 UT (Actigall) 4-02 10-03 mg by Health 300 MG 00:00: 00:00 mouth 2 capsule 00 :00 (two) times a day. ursodiol 0 2- No 300mg Q.5D Take 300 UT (Actigall) 402 10-03 mg by Health 300 MG 00:00: 00:00 mouth 2 capsule 00 :00 (two) times a day. mometasone- Yes 2{puff} 2 puffs. UT formoterol 3- Health (Dulera 00:00: 100) 100-5 00 MCG/ACT inhaler ascorbic 0 Yes 2000mg 2,000 mg. UT acid 3- Health (Vitamin C) 00:00: 500 MG 00 tablet cholecalcif Yes 4000U 4,000 UT mirian 3 Units. Health (Vitamin 00:00: D-3) 25 MCG 00 (1000 UT) tablet Dulera 0 Yes 2{puff} Q.5D Inhale 2 UT 100-5 3-29 puffs 2 Health MCG/ACT 00:00: (two) inhaler 00 times a day. predniSONE Yes 20mg 20 mg. UT (Deltasone) 3- Health 20 MG 00:00: tablet 00 predniSONE 0 Yes UT (Deltasone) 3-29 Health 20 MG 00:00: tablet 00 zinc 0 Yes 220mg 220 mg. UT sulfate 08-11 Health (Zincate) 00:00: 220 (50 Zn) 00 MG capsule zinc Yes QD Take by UT sulfate 08-11 mouth 1 Health (Zincate) 00:00: (one) time 220 (50 Zn) 00 each day. MG capsule Dulera 0 Yes 2{puff} Q.5D Inhale 2 UT 100-5 3-29 puffs 2 Health MCG/ACT 00:00: (two) inhaler 00 times a day. Dulera 2020-0 Yes 2{puff} Q.5D Inhale 2 UT 100-5 3-29 puffs 2 Health MCG/ACT 00:00: (two) inhaler 00 times a day. Dulera 2020-0 Yes 2{puff} Q.5D Inhale 2 UT 100-5 3-29 puffs 2 Health MCG/ACT 00:00: (two) inhaler 00 times a day. Dulera 2020-0 Yes 2{puff} Q.5D Inhale 2 UT 100-5 3-29 puffs 2 Health MCG/ACT 00:00: (two) inhaler 00 times a day. Dulera 2020-0 Yes 2{puff} Q.5D Inhale 2 UT 100-5 3-29 puffs 2 Health MCG/ACT 00:00: (two) inhaler 00 times a day. Dulera 2020-0 Yes 2{puff} Q.5D Inhale 2 UT 100-5 3-29 puffs 2 Health MCG/ACT 00:00: (two) inhaler 00 times a day. Dulera 2020-0 Yes 2{puff} Q.5D Inhale 2 UT 100-5 3-29 puffs 2 Health MCG/ACT 00:00: (two) inhaler 00 times a day. Dulera 2020-0 Yes 2{puff} Q.5D Inhale 2 UT 100-5 3-29 puffs 2 Health MCG/ACT 00:00: (two) inhaler 00 times a day. Dulera 2020-0 Yes 2{puff} Q.5D Inhale 2 UT 100-5 3-29 puffs 2 Health MCG/ACT 00:00: (two) inhaler 00 times a day. Dulera 2020-0 Yes 2{puff} Q.5D Inhale 2 UT 100-5 3-29 puffs 2 Health MCG/ACT 00:00: (two) inhaler 00 times a day. Dulera 2020-0 Yes 2{puff} Q.5D Inhale 2 UT 100-5 3-29 puffs 2 Health MCG/ACT 00:00: (two) inhaler 00 times a day. Dulera 2020-0 Yes 2{puff} Q.5D Inhale 2 UT 100-5 3-29 puffs 2 Health MCG/ACT 00:00: (two) inhaler 00 times a day. Dulera 2020-0 Yes 2{puff} Q.5D Inhale 2 UT 100-5 3-29 puffs 2 Health MCG/ACT 00:00: (two) inhaler 00 times a day. Dulera 2020-0 Yes 2{puff} Q.5D Inhale 2 UT 100-5 3-29 puffs 2 Health MCG/ACT 00:00: (two) inhaler 00 times a day. mometasone- 2020-0 Yes 2{puff} Q.5D Inhale 2 [facility] formoterol 08-[address] (Dulera) 00:00: (two) [facility]osp[facility] 100-5 00 times a l mcg/actuati day. on inhaler mometasone- 2020-0 2021- No 2{puff} 2 puffs. UT formoterol 08-11 Health (Dulera 00:00: 00:00 100) 100-5 00 :00 MCG/ACT inhaler ascorbic 2021- No 2000mg 2,000 mg. U T acid 08-11 Health (Vitamin C) 00:00: 00:00 500 MG 00 :00 tablet cholecalcif 2021- No 4000U 4,000 UT mirian 08-11 Units. Health (Vitamin 00:00: 00:00 D-3) 25 MCG 00 :00 (1000 UT) tablet predniSONE 2021- No 20mg 20 mg. DC (Deltasone) 08-11 Health 20 MG 00:00: 00:00 tablet 00 :00 predniSONE 2020-0 2021- No UT (Deltasone) 08-11 Health 20 MG 00:00: 00:00 tablet 00 :00 zinc 2020-2021- No 220mg 220 mg. UT sulfate 08-11 Health (Zincate) 00:00: 00:00 220 (50 Zn) 00 :00 MG capsule zinc 2021- No QD Take by DC sulfate 08-11 mouth 1 [facility] (Zincate) 00:00: 00:00 (one) time 220 (50 Zn) 00 :00 each day. MG capsule mometasone- 2020-0 2021- No 2{puff} 2 puffs. UT formoterol 08-11 Health (Dulera 00:00: 00:00 100) 100-5 00 :00 MCG/ACT inhaler ascorbic 2020-2021- No 2000mg 2,000 mg. U T acid 08-11 Health (Vitamin C) 00:00: 00:00 500 MG 00 :00 tablet cholecalcif 2020-2021- No 4000U 4,000 UT mirian 08-11 Units. Health (Vitamin 00:00: 00:00 D-3) 25 MCG 00 :00 (1000 UT) tablet predniSONE 2021- No 20mg 20 mg. UT (Deltasone) 08-11 Health 20 MG 00:00: 00:00 tablet 00 :00 predniSONE 2020-0 2021- No UT (Deltasone) 08-11 Health 20 MG 00:00: 00:00 tablet 00 :00 zinc 2020-0 2021- No 220mg 220 mg. UT sulfate 08-11 Health (Zincate) 00:00: 00:00 220 (50 Zn) 00 :00 MG capsule zinc 2021- No QD Take by UT sulfate 08-11 mouth 1 Health (Zincate) 00:00: 00:00 (one) time 220 (50 Zn) 00 :00 each day. MG capsule Alirocumab Yes 75mg 75 mg. UT 75 MG/ML 08-09 Health solution 00:00: auto-inject 00 or Biotin Yes DAILY UT MG capsule 08-09 Health 00:00: 00 citalopram 0 Yes 40mg 40 mg. UT (CeleXA) 10 08-09 Health MG tablet 00:00: 00 ursodiol Yes 300mg 300 mg. UT (Actigall) 08-09 Health 300 MG 00:00: capsule 00 aspirin 81 0 Yes 81mg 81 mg. UT MG EC 08-09 Health tablet 00:00: 00 loratadine Yes 5mg 5 mg. UT (Claritin) 08-09 [facility] 5 MG/5ML 00:00: syrup 00 Biotin 10 0 Yes DAILY UT MG capsule 08-09 Health 00:00: 00 Biotin 10 2020-0 Yes DAILY UT MG capsule 08-09 Health 00:00: 00 Biotin 2020-0 Yes DAILY UT MG capsule 08-09 Health 00:00: 00 Biotin 10 2020-0 Yes DAILY UT MG capsule 08-09 Health 00:00: 00 Biotin 10 2020-0 Yes DAILY UT MG capsule 08-09 Health 00:00: 00 Biotin 10 2020-0 Yes DAILY UT MG capsule 08-09 Health 00:00: 00 Biotin 10 2020-0 Yes DAILY UT MG capsule 08-09 Health 00:00: 00 Biotin 10 2020-0 Yes DAILY UT MG capsule 08-09 Health 00:00: 00 Biotin 10 2020-0 Yes DAILY UT MG capsule 08-09 Health 00:00: 00 Biotin 10 2020-0 Yes DAILY UT MG capsule 08-09 Health 00:00: 00 Biotin 10 2020-0 Yes DAILY UT MG capsule 08-09 Health 00:00: 00 Biotin 10 2020-0 Yes DAILY UT MG capsule 08-09 Health 00:00: 00 Biotin 10 2020-0 Yes DAILY UT MG capsule 08-09 Health 00:00: 00 Biotin 10 2020-0 Yes DAILY UT MG capsule 08-09 Health 00:00: 00 Alirocumab 2020-0 2022- No 75mg 75 mg. UT 75 MG/ML 08-09 Health solution 00:00: 00:00 auto-inject 00 :00 or citalopram 2020-0 2022- No 40mg 40 mg. UT (CeleXA) 08-09 Health MG tablet 00:00: 00:00 00 :00 ursodiol 2020-0 2022- No 300mg 300 mg. UT (Actigall) 08-09 Health 300 MG 00:00: 00:00 capsule 00 :00 aspirin 81 1-0 2022- No 81mg 81 mg. UT MG EC 08-09 Health tablet 00:00: 00:00 00 :00 loratadine 2020-0 2022- No 5mg 5 mg. UT (Claritin) 08-09 [facility] 5 MG/5ML 00:00: 00:00 syrup 00 :00 Alirocumab 2020-0 2022- No 75mg 75 mg. UT 75 MG/ML 08-09 Health solution 00:00: 00:00 auto-inject 00 :00 or citalopram 1-0 2022- No 40mg 40 mg. UT (CeleXA) 08-09 Health MG tablet 00:00: 00:00 00 :00 ursodiol 2021-0 2022- No 300mg 300 mg. UT (Actigall) 08-09 Health 300 MG 00:00: 00:00 capsule 00 :00 aspirin 81 2021-0 2022- No 81mg 81 mg. UT MG EC 08-09- Health tablet 00:00: 00:00 00 :00 loratadine 2021- No 5mg 5 mg. UT (Claritin) 3 10 Health 5 MG/5ML 00:00: 00:00 syrup 00 :00 diazePAM 2020- Yes TAKE ONE UT (Valium) 10 2-28 TABLET BY Hea l[facility] MG tablet 00:00: 30 MINUTES 00 BEFORE PROCEDURE (MRI) diazePAM 2020-2021- No TAKE ONE UT (Valium) 10 2- 10- TABLET BY He alth MG tablet 00:00: 00:00 30 MINUTES 00 :00 BEFORE PROCEDURE (MRI) diazePAM 2020-2021- No TAKE ONE UT (Valium) 10 2- 10- TABLET BY He alth MG tablet 00:00: 00:00 30 MINUTES 00 :00 BEFORE PROCEDURE (MRI) omeprazole Yes 20mg Take 20 mg U T (PriLOSEC) 2-23 by mouth 1 [facility] [address] 00:00: (one) time capsule 00 each day if needed. omeprazole 2021- No 20mg Take 20 mg UT (PriLOSEC) 2 10- by mouth 1 [facility] [address] 00:00: 00:00 (one) time capsule 00 :00 each day if needed. omeprazole 2021- No 20mg Take 20 mg UT (PriLOSEC) 2 10- by mouth 1 [facility] [address] 00:00: 00:00 (one) time capsule 00 :00 each day if needed. Praluent 75 Yes INJECT 1 UT MG/ML 2-20 ML Health solution 00:00: SUBCUTANEO auto-inject 00 USLY EVERY or TWO WEEKS Praluent 75 2020-0 2021- No INJECT 1 U T MG/ML 2-20 10-03 ML Health solution 00:00: 00:00 SUBCUTANEO auto-inject 00 :00 USLY EVERY or TWO WEEKS Praluent 75 2020-0 2021- No INJECT 1 U T MG/ML 2-20 10-03 ML Health solution 00:00: 00:00 SUBCUTANEO auto-inject 00 :00 USLY EVERY or TWO WEEKS nitrofurant 2020-0 Yes UT oin, 05-31 Health macrocrysta 00:00: l-monohydra 00 te, (Macrobid) 100 MG capsule nitrofurant 2020-0 2021- No UT oin, 05-31 Health macrocrysta 00:00: 00:00 l-monohydra 00 :00 te, (Macrobid) 100 MG capsule nitrofurant 2020-0 2021- No UT oin, 05-31 Health macrocrysta 00:00: 00:00 l-monohydra 00 :00 te, (Macrobid) 100 MG capsule ketorolac 2020-0 Yes 10mg 10 mg. UT (Toradol) 05-30 Health 10 MG 00:00: tablet 00 ketorolac 2020-0 Yes 1{tbl} Q.[id number] Take 1 UT (Toradol) 05-30 [id number] tablet by Health 10 MG 00:00: 3D mouth 3 tablet 00 (three) times a day if needed. methylPREDN 2020-0 Yes 4mg 4 mg. UT ISolone 05-30 Health (Medrol 00:00: Dospak) 4 00 MG tablets methylPREDN 2020-0 Yes USE UT ISolone -15 DIRECTED Health (Medrol 00:00: Dospak) 4 00 MG tablets methylPREDN 2020-0 Yes Takes as UT ISolone -15 instructed Health (Medrol 00:00: on pack; Dospak) 4 00 QTY 1x 21 MG tablets tablet pack ketorolac 2020-0 2021- No 10mg 10 mg. UT (Toradol) 05-30 Health 10 MG 00:00: 00:00 tablet 00 :00 ketorolac 1-0 2022- No 1{tbl} Q.[id number] Take 1 UT (Toradol) 05-30 [id number] tablet by Health 10 MG 00:00: 00:00 3D mouth 3 tablet 00 :00 (three) times a day if needed. methylPREDN 2020-0 2- No 4mg 4 mg. UT ISolone 05-30 Health (Medrol 00:00: 00:00 Dospak) 4 00 :00 MG tablets methylPREDN 2020-2021- No USE UT ISolone 05-30 DIRECTED Health (Medrol 00:00: 00:00 Dospak) 4 00 :00 MG tablets methylPREDN 2020-2021- No Takes as U T ISolone 05-30 instructed Healt h (Medrol 00:00: 00:00 on pack; Dospak) 4 00 :00 QTY 1x 21 MG tablets tablet pack ketorolac 2021- No 10mg 10 mg. UT (Toradol) 05-30 Health 10 MG 00:00: 00:00 tablet 00 :00 ketorolac 2020-2021- No 1{tbl} Q.[id number] Take 1 UT (Toradol) 05-30 [id number] tablet by Health 10 MG 00:00: 00:00 3D mouth 3 tablet 00 :00 (three) times a day if needed. methylPREDN 2021- No 4mg 4 mg. UT ISolone 05-30 Health (Medrol 00:00: 00:00 Dospak) 4 00 :00 MG tablets methylPREDN 2021- No USE UT ISolone 05-30 DIRECTED Health (Medrol 00:00: 00:00 Dospak) 4 00 :00 MG tablets methylPREDN 2021- No Takes as U T ISolone 05-30 instructed Healt h (Medrol 00:00: 00:00 on pack; Dospak) 4 00 :00 QTY 1x 21 MG tablets tablet pack oxyCODONE-a Yes TAKE 1-2 UT cetaminophe 1-07 TABLETS Healt h n 00:00: Q6-8H PRN (Percocet) 00 PAIN 10-325 MG tablet oxyCODONE-a 0 Yes TAKE 1-2 UT cetaminophe 1-07 TABLETS Healt h n 00:00: Q6-8H PRN (Percocet) 00 PAIN 10-325 MG tablet oxyCODone-a Yes 1{tbl} Take 1 [facility] cetaminophe 1-[address] n 00:00: mouth. Hospita (PERCOCET) 00 l 10-325 mg per tablet oxyCODONE-a 2021- No TAKE 1-2 U T cetaminophe 05-22 TABLETS Heal th n 00:00: 00:00 Q6-8H PRN (Percocet) 00 :00 PAIN 10-325 MG tablet oxyCODONE-a 2021- No TAKE 1-2 U T cetaminophe 05-22 TABLETS Heal th n 00:00: 00:00 Q6-8H PRN (Percocet) 00 :00 PAIN 10-325 MG tablet Blood 2020-0 Yes USE UT Glucose 1-06 DIRECTED Health Monitoring 00:00: TO CHECK Suppl 00 BLOOD (OneTouch SUGAR Verio Flex TWICE System) DAILY w/Device kit Blood 2020-0 Yes USE UT Glucose 1-06 DIRECTED Health Monitoring 00:00: TO CHECK Suppl 00 BLOOD (OneTouch SUGAR Verio Flex TWICE System) DAILY w/Device kit Blood 2020-0 Yes USE UT Glucose 1-06 DIRECTED Health Monitoring 00:00: TO CHECK Suppl 00 BLOOD (OneTouch SUGAR Verio Flex TWICE System) DAILY w/Device kit Blood 2020-0 Yes USE UT Glucose 1-06 DIRECTED Health Monitoring 00:00: TO CHECK Suppl 00 BLOOD (OneTouch SUGAR Verio Flex TWICE System) DAILY w/Device kit Blood 2020-0 Yes USE UT Glucose 1-06 DIRECTED Health Monitoring 00:00: TO CHECK Suppl 00 BLOOD (OneTouch SUGAR Verio Flex TWICE System) DAILY w/Device kit Blood 2020-0 Yes USE UT Glucose 1-06 DIRECTED Health Monitoring 00:00: TO CHECK Suppl 00 BLOOD (OneTouch SUGAR Verio Flex TWICE System) DAILY w/Device kit Blood 2020-0 Yes USE UT Glucose 1-06 DIRECTED Health Monitoring 00:00: TO CHECK Suppl 00 BLOOD (OneTouch SUGAR Verio Flex TWICE System) DAILY w/Device kit Blood 2020-0 Yes USE UT Glucose 1-06 DIRECTED Health Monitoring 00:00: TO CHECK Suppl 00 BLOOD (OneTouch SUGAR Verio Flex TWICE System) DAILY w/Device kit Blood 2020-0 Yes USE UT Glucose 1-06 DIRECTED Health Monitoring 00:00: TO CHECK Suppl 00 BLOOD (OneTouch SUGAR Verio Flex TWICE System) DAILY w/Device kit Blood 2020-0 Yes USE UT Glucose 1-06 DIRECTED Health Monitoring 00:00: TO CHECK Suppl 00 BLOOD (OneTouch SUGAR Verio Flex TWICE System) DAILY w/Device kit Blood 2020-0 Yes USE UT Glucose 1-06 DIRECTED Health Monitoring 00:00: TO CHECK Suppl 00 BLOOD (OneTouch SUGAR Verio Flex TWICE System) DAILY w/Device kit Blood 2020-0 Yes USE UT Glucose 1-06 DIRECTED Health Monitoring 00:00: TO CHECK Suppl 00 BLOOD (OneTouch SUGAR Verio Flex TWICE System) DAILY w/Device kit Blood 2020-0 Yes USE UT Glucose 1-06 DIRECTED Health Monitoring 00:00: TO CHECK Suppl 00 BLOOD (OneTouch SUGAR Verio Flex TWICE System) DAILY w/Device kit Blood 0 Yes USE UT Glucose 06 DIRECTED Health Monitoring 00:00: TO CHECK Suppl 00 BLOOD (OneTouch SUGAR Verio Flex TWICE System) DAILY w/Device kit Blood 2020-0 Yes USE UT Glucose 06 DIRECTED Health Monitoring 00:00: TO CHECK Suppl 00 BLOOD (OneTouch SUGAR Verio Flex TWICE System) DAILY w/Device kit Enbrel 2019-05 Yes UT SureClick 2-29 Health 50 MG/ML 00:00: solution 00 auto-inject or Enbrel 2019-05- No UT SureClick 2-29 10-03 Health 50 MG/ML 00:00: 00:00 solution 00 :00 auto-inject or Enbrel 2019-05- No UT SureClick 2-29 10-03 Health 50 MG/ML 00:00: 00:00 solution 00 :00 auto-inject or aspirin 2019-05 Yes 325mg 325 mg. UT (Aspirin 2-10 Health Adult) 325 00:00: MG tablet 00 aspirin 2019-05- No 325mg 325 mg. UT (Aspirin 2-10 10- Health Adult) 325 00:00: 00:00 MG tablet 00 :00 aspirin 2019-05- No 325mg 325 mg. UT (Aspirin 2-10 10- Health Adult) 325 00:00: 00:00 MG tablet 00 :00 doxycycline 2019-05 Yes TAKE 1 UT (Vibra-Tabs 2-08 TABLET BY [facility] ) 100 MG 00:00: MOUTH tablet 00 TWICE DAILY UNTIL GONE enoxaparin 2019-05 Yes inject 1 UT (Lovenox) 2- [facility] 40 MG/0.4ML 00:00: SUBQ QD solution 00 for 10 days ondansetron 2019-05 Yes 4mg 4 mg. UT (Zofran) 4 2-08 Health MG tablet 00:00: 00 ondansetron 2019-05 Yes 4mg Q.[id number] Take 4 mg UT (Zofran) 4 - [id number] by mouth Health MG tablet 00:00: 3D every 8 00 (eight) hours. doxycycline 2019-05- No TAKE 1 UT (Vibra-Tabs 06-23 TABLET BY He alth ) 100 MG 00:00: 00:00 MOUTH tablet 00 :00 TWICE DAILY UNTIL GONE enoxaparin 2019-05- No inject 1 [facility] (Lovenox) 06-23 [facility] 40 MG/0.4ML 00:00: 00:00 SUBQ QD solution 00 :00 for 10 days ondansetron 2019-05- No 4mg 4 mg. UT (Zofran) 4 06-23 Health MG tablet 00:00: 00:00 00 :00 ondansetron 2019-05- No 4mg Q.[id number] Take 4 mg UT (Zofran) 4 06-23 [id number] by mouth Health MG tablet 00:00: 00:00 3D every 8 00 :00 (eight) hours. doxycycline 2019-05- No TAKE 1 UT (Vibra-Tabs 06-23 TABLET BY [facility] ) 100 MG 00:00: 00:00 MOUTH tablet 00 :00 TWICE DAILY UNTIL GONE enoxaparin 2019-05- No inject 1 UT (Lovenox) 06-23 [facility] 40 MG/0.4ML 00:00: 00:00 SUBQ QD solution 00 :00 for 10 days ondansetron 2019-05- No 4mg 4 mg. UT (Zofran) 4 06-23 Health MG tablet 00:00: 00:00 00 :00 ondansetron 2019-05- No 4mg Q.[id number] Take 4 mg UT (Zofran) 4 06-23 [id number] by mouth Health MG tablet 00:00: 00:00 3D every 8 00 :00 (eight) hours. Tiotropium 2020-1 Yes 1{puff} Inhale 1 [facility] [place] 1-12 puff. Health Monohydrate 00:00: (Spiriva 00 Respimat) 2.5 MCG/ACT aerosol solution Tiotropium 2020-1 Yes 1{puff} Inhale 1 [facility] [place] 1-12 puff. Health Monohydrate 00:00: (Spiriva 00 Respimat) 2.5 MCG/ACT aerosol solution Tiotropium 2020-1 Yes 1{puff} Inhale 1 [facility] [place] 1-12 puff. Health Monohydrate 00:00: (Spiriva 00 Respimat) 2.5 MCG/ACT aerosol solution Tiotropium 2020-1 Yes 1{puff} Inhale 1 [facility] [place] 1-12 puff. Health Monohydrate 00:00: (Spiriva 00 Respimat) 2.5 MCG/ACT aerosol solution Tiotropium 2020-1 Yes 1{puff} Inhale 1 [facility] [place] 1-12 puff. Health Monohydrate 00:00: (Spiriva 00 Respimat) 2.5 MCG/ACT aerosol solution Tiotropium 2020-1 Yes 1{puff} Inhale 1 [facility] [place] 1-12 puff. Health Monohydrate 00:00: (Spiriva 00 Respimat) 2.5 MCG/ACT aerosol solution Tiotropium 2020-1 Yes 1{puff} Inhale 1 [facility] [place] 1-12 puff. Health Monohydrate 00:00: (Spiriva 00 Respimat) 2.5 MCG/ACT aerosol solution Tiotropium 2020-1 Yes 1{puff} Inhale 1 [facility] [place] 1-12 puff. Health Monohydrate 00:00: (Spiriva 00 Respimat) 2.5 MCG/ACT aerosol solution Tiotropium 2020-1 Yes 1{puff} Inhale 1 [facility] [place] 1-12 puff. Health Monohydrate 00:00: (Spiriva 00 Respimat) 2.5 MCG/ACT aerosol solution Tiotropium 2020-1 Yes 1{puff} Inhale 1 [facility] [place] 1-12 puff. Health Monohydrate 00:00: (Spiriva 00 Respimat) 2.5 MCG/ACT aerosol solution Tiotropium 2020-1 Yes 1{puff} Inhale 1 [facility] [place] 1-12 puff. Health Monohydrate 00:00: (Spiriva 00 Respimat) 2.5 MCG/ACT aerosol solution Tiotropium 2019-05 Yes 1{puff} Inhale 1 [facility] [place] 1-12 puff. Health Monohydrate 00:00: (Spiriva 00 Respimat) 2.5 MCG/ACT aerosol solution Tiotropium 2019-05 Yes 1{puff} Inhale 1 [facility] [place] 1-12 puff. Health Monohydrate 00:00: (Spiriva 00 Respimat) 2.5 MCG/ACT aerosol solution Tiotropium 2019-05 Yes 1{puff} Inhale 1 [facility] [place] 1-12 puff. Health Monohydrate 00:00: (Spiriva 00 Respimat) 2.5 MCG/ACT aerosol solution Tiotropium 2019-05 Yes 1{puff} Inhale 1 [facility] [place] 1-12 puff. Health Monohydrate 00:00: (Spiriva 00 Respimat) 2.5 MCG/ACT aerosol solution chlorhexidi 2019-05 Yes SWISH AND U T ne 1-11 SPIT 15 ML Health (Peridex) 00:00: IN MOUTH 0.12 % 00 TWICE solution DAILY FOR 45 SECONDS DO NOT SWALLOW AND DO NOT EAT FOR UP TO 1 HOUR AFTER RINSE chlorhexidi 2019-05- No SWISH AND UT ne 1-11 10-03 SPIT 15 ML Health (Peridex) 00:00: 00:00 IN MOUTH 0.12 % 00 :00 TWICE solution DAILY FOR 45 SECONDS DO NOT SWALLOW AND DO NOT EAT FOR UP TO 1 HOUR AFTER RINSE chlorhexidi 2019-05- No SWISH AND UT ne 1-11 10-03 SPIT 15 ML Health (Peridex) 00:00: 00:00 IN MOUTH 0.12 % 00 :00 TWICE solution DAILY FOR 45 SECONDS DO NOT SWALLOW AND DO NOT EAT FOR UP TO 1 HOUR AFTER RINSE meloxicam 2019-05 Yes 7.5mg 7.5 mg. UT (Mobic) 7.5 0-02 Health MG tablet 00:00: 00 omeprazole 2019-05 Yes 20mg 20 mg. UT (PriLOSEC) 0-[address] 00:00: capsule 00 meloxicam 2019-05- No 7.5mg 7.5 mg. UT (Mobic) 7.5 0-02-15 Health MG tablet 00:00: 00:00 00 :00 omeprazole 2019-05- No 20mg 20 mg. UT (PriLOSEC) 0-02-[address] 00:00: 00:00 capsule 00 :00 meloxicam 2019-05- No 7.5mg 7.5 mg. UT (Mobic) 7.5 0-02-15 Health MG tablet 00:00: 00:00 00 :00 omeprazole 2019-05 No 20mg 20 mg. UT (PriLOSEC) 0-02-[address] 00:00: 00:00 capsule 00 :00 Diclofenac 2019-05- No APPLY 4 UT Sodium 0 08-19 GRAMS OF Health (Voltaren) 00:00: 00:00 GEL 1 % 00 :00 TOPICALLY external FOUR TIMES gel DAILY TO AFFECTED AREA TO LOWER EXTREMITIE S DO NOT APPLY MORE THAN 16 GRAMS DAILY TO ANY ONE AFFEC doxycycline Yes 100mg 100 mg. UT (Vibra-Tabs 01-24 Health ) 100 MG 00:00: tablet 00 doxycycline 2021- No 100mg 100 mg. U T (Vibra-Tabs 01-24 Health ) 100 MG 00:00: 00:00 tablet 00 :00 doxycycline 2021- No 100mg 100 mg. U T (Vibra-Tabs 01-24 Health ) 100 MG 00:00: 00:00 tablet 00 :00 ketoconazol Yes SHAMPOO 5 U T e (NIZOral) 01-14 ML Health 2 % shampoo 00:00: TOPICALLY 00 TWICE A WEEK FOR 28 DAYS ketoconazol 2021- No SHAMPOO 5 UT e (NIZOral) 01-14 10-03 ML Health 2 % shampoo 00:00: 00:00 TOPICALLY 00 :00 TWICE A WEEK FOR 28 DAYS ketoconazol 2021- No SHAMPOO 5 UT e (NIZOral) 01-14 10-03 ML Health 2 % shampoo 00:00: 00:00 TOPICALLY 00 :00 TWICE A WEEK FOR 28 DAYS Ketoconazol Ketoconazol 2019- No Gus 5 ml Common e e 01-14 [facility] 00:00: 00:00 - [facility] 00 :00 [facility] Ketoconazol Ketoconazol 2020- No 5{ml} Ketoconazo e 2 % e 2 % 01-14 le 2 % 00:00: 00:00 00 :00 Ketoconazol Ketoconazol 2019-0 2020- No 5{ml} Ketoconazo e 2 % e 2 % 01-14 le 2 % 00:00: 00:00 00 :00 Repatha 2019-0 Yes INJECT 1 UT SureClick 8-10 ML Health 140 MG/ML 00:00: SUBCUTANEO solution 00 USLY EVERY auto-inject TWO WEEKS or FOR 28 DAYS Repatha 2021- No INJECT 1 UT SureClick 8-10 10-03 ML Health 140 MG/ML 00:00: 00:00 SUBCUTANEO solution 00 :00 USLY EVERY auto-inject TWO WEEKS or FOR 28 DAYS Repatha 2019-2021- No INJECT 1 UT SureClick 8-10 10-03 ML Health 140 MG/ML 00:00: 00:00 SUBCUTANEO solution 00 :00 USLY EVERY auto-inject TWO WEEKS or FOR 28 DAYS Misc 2019-0 Yes Use as UT Natural 8-04 directed Health Products 00:00: to check (BLOOD 00 blood SUGAR 360 sugar BID PO) DX: E11.8 Blood Yes Use as UT Glucose 8-04 directed Health Monitoring 00:00: to check Suppl 00 blood (GlucoCom sugar BID Blood DX: E11.8 Glucose Monitor) device Blood 2019-0 Yes Use as UT Glucose 8-04 directed Health Monitoring 00:00: to check Suppl 00 blood (GlucoCom sugar Blood daily Glucose DX:E11.8 Monitor) device Blood 2019-0 Yes USE UTD TO UT Glucose 8-04 CHECK Health Monitoring 00:00: BLOOD Suppl 00 SUGAR BID (OneTouch Verio Flex System) w/Device kit Glucose 2019-0 Yes Use as UT Blood 8-04 directed Health ([place] 00:00: to check Breeze 2 00 blood Test) disk sugar BID DX: E11.8 Blood 2019-0 Yes USE UTD TO UT Glucose 8-04 CHECK Health Monitoring 00:00: BLOOD Suppl 00 SUGAR BID (OneTouch Verio Flex System) w/Device kit Glucose 2020-0 Yes Use as UT Blood 8-04 directed Health ([place] 00:00: to check Breeze 2 00 blood Test) disk sugar BID DX: E11.8 Blood 2020-0 Yes USE UTD TO UT Glucose 8-04 CHECK Health Monitoring 00:00: BLOOD Suppl 00 SUGAR BID (OneTouch Verio Flex System) w/Device kit Glucose 2020-0 Yes Use as UT Blood 8-04 directed Health ([place] 00:00: to check Breeze 2 00 blood Test) disk sugar BID DX: E11.8 Blood 2020-0 Yes USE UTD TO UT Glucose 8-04 CHECK Health Monitoring 00:00: BLOOD Suppl 00 SUGAR BID (OneTouch Verio Flex System) w/Device kit Glucose 2020-0 Yes Use as [facility] Blood 8-04 directed Health ([place] 00:00: to check Breeze 2 00 blood Test) disk sugar BID DX: E11.8 Blood 2020-0 Yes USE UTD TO [facility] Glucose 8-04 CHECK Health Monitoring 00:00: BLOOD Suppl 00 SUGAR BID (OneTouch Verio Flex System) w/Device kit Glucose 2020-0 Yes Use as [facility] Blood 8-04 directed Health ([place] 00:00: to check Breeze 2 00 blood Test) disk sugar BID DX: E11.8 Blood 2020-0 Yes USE UTD TO [facility] Glucose 8-04 CHECK Health Monitoring 00:00: BLOOD Suppl 00 SUGAR BID (OneTouch Verio Flex System) w/Device kit Glucose 2020-0 Yes Use as [facility] Blood 8-04 directed Health ([place] 00:00: to check Breeze 2 00 blood Test) disk sugar BID DX: E11.8 Blood 2020-0 Yes USE UTD TO [facility] Glucose 8-04 CHECK Health Monitoring 00:00: BLOOD Suppl 00 SUGAR BID (OneTouch Verio Flex System) w/Device kit Glucose 2020-0 Yes Use as [facility] Blood 8-04 directed Health ([place] 00:00: to check Breeze 2 00 blood Test) disk sugar BID DX: E11.8 Blood 2020-0 Yes USE UTD TO [facility] Glucose 8-04 CHECK Health Monitoring 00:00: BLOOD Suppl 00 SUGAR BID (OneTouch Verio Flex System) w/Device kit Glucose 2020-0 Yes Use as [facility] Blood 8-04 directed Health ([place] 00:00: to check Breeze 2 00 blood Test) disk sugar BID DX: E11.8 Blood 2020-0 2023- No USE UTD TO [facility] Glucose 12-17 CHECK Health Monitoring 00:00: 00:00 BLOOD Suppl 00 :00 SUGAR BID (OneTouch Verio Flex System) w/Device kit Glucose 2022- No Use as [facility] Blood 12-17 directed Health ([place] 00:00: 00:00 to check Breeze 2 00 :00 blood Test) disk sugar BID DX: E11.8 Blood 2022- No USE UTD TO [facility] Glucose 12-17 CHECK Health Monitoring 00:00: 00:00 BLOOD Suppl 00 :00 SUGAR BID (OneTouch Verio Flex System) w/Device kit Glucose 2022- No Use as [place] Blood 12-17 directed Health ([place] 00:00: 00:00 to check Breeze 2 00 :00 blood Test) disk sugar BID DX: E11.8 Misc 2021- No Use as [facility] Natural 12-17 directed Health Products 00:00: 00:00 to check (BLOOD 00 :00 blood SUGAR 360 sugar BID PO) DX: E11.8 Blood 2021- No Use as UT Glucose 12-17 directed Health Monitoring 00:00: 00:00 to check Suppl 00 :00 blood (GlucoCom sugar BID Blood DX: E11.8 Glucose Monitor) device Blood 2021- No Use as UT Glucose 12-17 directed Health Monitoring 00:00: 00:00 to check Suppl 00 :00 blood (GlucoCom sugar Blood daily Glucose DX:E11.8 Monitor) device Misc 2021- No Use as UT Natural 12-17 directed Health Products 00:00: 00:00 to check (BLOOD 00 :00 blood SUGAR 360 sugar BID PO) DX: E11.8 Blood 2021- No Use as UT Glucose 12-17 directed Health Monitoring 00:00: 00:00 to check Suppl 00 :00 blood (GlucoCom sugar BID Blood DX: E11.8 Glucose Monitor) device Blood 2021- No Use as UT Glucose 802-15 directed Health Monitoring 00:00: 00:00 to check Suppl 00 :00 blood (GlucoCom sugar Blood daily Glucose DX:E11.8 Monitor) device leflunomide 2020-0 Yes 10mg QD Take 10 mg UT (Arava) 10 12-05 by mouth 1 Hea lth MG tablet 00:00: (one) time 00 each day. leflunomide 2020-0 2021- No 10mg QD Take 10 mg UT (Arava) 10 12-05- by mouth 1 He alth MG tablet 00:00: 00:00 (one) time 00 :00 each day. leflunomide 2020-0 2021- No 10mg QD Take 10 mg UT (Arava) 12-05 by mouth 1 He alth MG tablet 00:00: 00:00 (one) time 00 :00 each day. Evolocumab 2020-0 Yes 1 ml UT (Winning [place]itchatha 11-25 [employer]) 00:00: 140 MG/ML 00 solution auto-inject or Evolocumab 2020-0 2021- No 1 ml UT (Winning [place]atha 11-25 [employer]) 00:00: 00:00 140 MG/ML 00 :00 solution auto-inject or Evolocumab 2020-0 2021- No 1 ml UT (Repatha 11-25 [employer]) 00:00: 00:00 140 MG/ML 00 :00 solution auto-inject or ondansetron 2020-0 Yes 8mg 8 mg. UT (Zofran) 8 6-24 Health MG tablet 00:00: 00 ondansetron 2020-0 Yes 8mg [id number] Take 8 mg UT (Zofran) 8 6-24 [id number] by mouth 3 Health MG tablet 00:00: 3D (three) 00 times a day. ondansetron 2020-0 2021- No 8mg 8 mg. UT (Zofran) 8 6- 10-03 Health MG tablet 00:00: 00:00 00 :00 ondansetron 2020-0 2- No 8mg Q.[id number] Take 8 mg UT (Zofran) 8 6- 10- [id number] by mouth 3 Health MG tablet 00:00: 00:00 3D (three) 00 :00 times a day. ondansetron 2020-0 2021- No 8mg 8 mg. UT (Zofran) 8 6- 10- Health MG tablet 00:00: 00:00 00 :00 ondansetron 2020-0 2021- No 8mg Q.[id number] Take 8 mg UT (Zofran) 8 11-06- [id number] by mouth 3 Health MG tablet 00:00: 00:00 3D (three) 00 :00 times a day. midodrine 2020-0 Yes 5mg Q.[id number] Take 5 mg UT (Proamatine - [id number] by mouth 3 Health ) 5 MG 00:00: 3D (three) tablet 00 times a day. midodrine 2020-0 2021- No 5mg Q.[id number] Take 5 mg UT (Proamatine 6-01 03- [id number] by mouth 3 Health ) 5 MG 00:00: 00:00 3D (three) tablet 00 :00 times a day. midodrine 2020-0 2021- No 5mg Q.[id number] Take 5 mg UT (Proamatine -02-15 [id number] by mouth 3 Health ) 5 MG 00:00: 00:00 3D (three) tablet 00 :00 times a day. Restasis 2020-0 Yes INSTILL 1 UT 0.05 % 6-13 DROP INTO Health ophthalmic 00:00: EACH EYE emulsion 00 TWICE DAILY Restasis 2020-0 Yes INSTILL 1 UT 0.05 % 6-13 DROP INTO Health ophthalmic 00:00: EACH EYE emulsion 00 TWICE DAILY Restasis 2020-0 Yes INSTILL 1 UT 0.05 % 6-13 DROP INTO Health ophthalmic 00:00: EACH EYE emulsion 00 TWICE DAILY Restasis 2020-0 Yes INSTILL 1 UT 0.05 % 6-13 DROP INTO Health ophthalmic 00:00: EACH EYE emulsion 00 TWICE DAILY Restasis 2020-0 Yes INSTILL 1 UT 0.05 % 6-13 DROP INTO Health ophthalmic 00:00: EACH EYE emulsion 00 TWICE DAILY Restasis 2020-0 Yes INSTILL 1 UT 0.05 % 6-13 DROP INTO Health ophthalmic 00:00: EACH EYE emulsion 00 TWICE DAILY Restasis 2020-0 Yes INSTILL 1 UT 0.05 % 6-13 DROP INTO Health ophthalmic 00:00: EACH EYE emulsion 00 TWICE DAILY Restasis 2020-0 Yes INSTILL 1 UT 0.05 % 6-13 DROP INTO Health ophthalmic 00:00: EACH EYE emulsion 00 TWICE DAILY Restasis 2020-0 Yes INSTILL 1 UT 0.05 % 6-13 DROP INTO Health ophthalmic 00:00: EACH EYE emulsion 00 TWICE DAILY Restasis 2020-0 Yes INSTILL 1 UT 0.05 % 6-13 DROP INTO Health ophthalmic 00:00: EACH EYE emulsion 00 TWICE DAILY Restasis 2020-0 Yes INSTILL 1 UT 0.05 % 6-13 DROP INTO Health ophthalmic 00:00: EACH EYE emulsion 00 TWICE DAILY Restasis 2020-0 Yes INSTILL 1 UT 0.05 % 6-13 DROP INTO Health ophthalmic 00:00: EACH EYE emulsion 00 TWICE DAILY Restasis 2020-0 Yes INSTILL 1 UT 0.05 % 6-13 DROP INTO Health ophthalmic 00:00: EACH EYE emulsion 00 TWICE DAILY Restasis 2020-0 Yes INSTILL 1 UT 0.05 % 6-13 DROP INTO Health ophthalmic 00:00: EACH EYE emulsion 00 TWICE DAILY Restasis 2020-0 Yes INSTILL 1 UT 0.05 % 6-13 DROP INTO Health ophthalmic 00:00: EACH EYE emulsion 00 TWICE DAILY hyoscyamine 2020-0 Yes DISSOLVE 1 UT (Levsin) 4-03 TABLET IN Health 0.125 MG SL 00:00: MOUTH tablet 00 THREE TIMES DAILY BEFORE MEAL(S) hyoscyamine 2020-0 2021- No DISSOLVE 1 UT (Levsin) 4-03 10-03 TABLET IN Healt h 0.125 MG SL 00:00: 00:00 MOUTH tablet 00 :00 THREE TIMES DAILY BEFORE MEAL(S) hyoscyamine 2020-0 2021- No DISSOLVE 1 UT (Levsin) 4-03 10-03 TABLET IN Healt h 0.125 MG SL 00:00: 00:00 MOUTH tablet 00 :00 THREE TIMES DAILY BEFORE MEAL(S) levothyroxi 2020-0 Yes 112ug Take 112 U T ne 3-25 mcg by Health (Synthroid, 00:00: mouth. Levoxyl) 00 112 MCG tablet levothyroxi 2020-0 Yes 112ug Take 112 U T ne 3-25 mcg by Health (Synthroid, 00:00: mouth. Levoxyl) 00 112 MCG tablet levothyroxi 2020-0 Yes 112ug Take 112 U T ne 3-25 mcg by Health (Synthroid, 00:00: mouth. Levoxyl) 00 112 MCG tablet levothyroxi 2020-0 Yes 112ug Take 112 U T ne 3-25 mcg by Health (Synthroid, 00:00: mouth. Levoxyl) 00 112 MCG tablet levothyroxi 2020-0 Yes 112ug Take 112 U T ne 3-25 mcg by Health (Synthroid, 00:00: mouth. Levoxyl) 00 112 MCG tablet levothyroxi 2020-0 Yes 112ug Take 112 U T ne 3-25 mcg by Health (Synthroid, 00:00: mouth. Levoxyl) 00 112 MCG tablet levothyroxi 2020-0 Yes 112ug Take 112 U T ne 3-25 mcg by Health (Synthroid, 00:00: mouth. Levoxyl) 00 112 MCG tablet levothyroxi 2020-0 Yes 112ug Take 112 U T ne 3-25 mcg by Health (Synthroid, 00:00: mouth. Levoxyl) 00 112 MCG tablet levothyroxi 2020-0 Yes 112ug Take 112 U T ne 3-25 mcg by Health (Synthroid, 00:00: mouth. Levoxyl) 00 112 MCG tablet levothyroxi 2020-0 Yes 112ug Take 112 U T ne 3-25 mcg by Health (Synthroid, 00:00: mouth. Levoxyl) 00 112 MCG tablet levothyroxi 2020-0 Yes 112ug Take 112 U T ne 3-25 mcg by Health (Synthroid, 00:00: mouth. Levoxyl) 00 112 MCG tablet levothyroxi 2020-0 Yes 112ug Take 112 U T ne 3-25 mcg by Health (Synthroid, 00:00: mouth. Levoxyl) 00 112 MCG tablet levothyroxi 2020-0 Yes 112ug Take 112 U T ne 3-25 mcg by Health (Synthroid, 00:00: mouth. Levoxyl) 00 112 MCG tablet levothyroxi 2020-0 Yes 112ug Take 112 U T ne 3-25 mcg by Health (Synthroid, 00:00: mouth. Levoxyl) 00 112 MCG tablet levothyroxi 2020-0 Yes 112ug Take 112 U T ne 3-25 mcg by Health (Synthroid, 00:00: mouth. Levoxyl) 00 112 MCG tablet Smoothie 2020-0 No 450 mL, Memori a Readi-Cat 2 3-19 Susp, l 18:00: Oral, [place] 00 Once, first dose 08/02/19 13:00:00 CDT, stop date 08/02/19 13:00:00 CDT, Out-Patien t Smoothie 2020-0 No 450 mL, Memori a Readi-Cat 2 3-19 Susp, l 18:00: Oral, [place] 00 Once, first dose 08/02/19 13:00:00 CDT, [...] Readi-Cat 2 3-19 Susp, l 18:00: Oral, [place] 00 Once, first dose 08/02/19 13:00:00 CDT, [...] 3-19 Soln, IV l 17:59: Push, As [place] 00 Indicated PRN for flush, first dose [...] 3-19 Soln, IV l 17:59: Push, As [place] 00 Indicated PRN for flush, first dose 08/02/19 12:59:00 CDT Diclofenac 2019- Yes 1% 1 %. UT Sodium 2-07 Health (Voltaren) 00:00: 1 % 00 external gel Diclofenac 2021- No 1% 1 %. UT Sodium 2-07 10- Health (Voltaren) 00:00: 00:00 1 % 00 :00 external gel Diclofenac 2019-2021- No 1% 1 %. UT Sodium 2-07 10- Health (Voltaren) 00:00: 00:00 1 % 00 :00 external gel linaGLIPtin 2019- Yes 1 tablet UT (Tradjenta) - Health 5 MG tablet 00:00: 00 linaGLIPtin 2018-2021- No 1 tablet U T (Tradjenta) 1-20 02-15 Health 5 MG tablet 00:00: 00:00 00 :00 linaGLIPtin 2018-2021- No 1 tablet U T (Tradjenta) 1-20 - Health 5 MG tablet 00:00: 00:00 00 :00 albuterol 2019-0 Yes Q6H every 6 UT 108 ( 8-16 (six) [facility]) 00:00: hours. MCG/ACT 00 inhaler albuterol 2018-0 Yes 2{puff} 2 puffs. U T 108 ( 8-16 Health Base) 00:00: MCG/ACT inhaler albuterol 2018-0 Yes 2 puffs as UT 108 ( 8-16 needed Health Base) 00:00: MCG/ACT 00 inhaler albuterol 2019-0 Yes Q6H every 6 UT 108 (90 8-16 (six) Health Base) 00:00: hours. MCG/ACT 00 inhaler albuterol 2019-0 Yes Q6H every 6 UT 108 (90 8-16 (six) Health Base) 00:00: hours. MCG/ACT 00 inhaler albuterol 2019-0 Yes Q6H every 6 UT 108 (90 8-16 (six) Health Base) 00:00: hours. MCG/ACT 00 inhaler albuterol 2019-0 Yes Q6H every 6 UT 108 (90 8-16 (six) Health Base) 00:00: hours. MCG/ACT 00 inhaler albuterol 2019-0 Yes Q6H every 6 UT 108 (90 8-16 (six) Health Base) 00:00: hours. MCG/ACT 00 inhaler albuterol 2019-0 Yes Q6H every 6 UT 108 (90 8-16 (six) Health Base) 00:00: hours. MCG/ACT 00 inhaler albuterol 2019-0 Yes Q6H every 6 UT 108 (90 8-16 (six) Health Base) 00:00: hours. MCG/ACT 00 inhaler albuterol 2019-0 Yes Q6H every 6 UT 108 (90 8-16 (six) [facility] Base) 00:00: hours. MCG/ACT 00 inhaler albuterol 2019-0 Yes Q6H every 6 UT 108 (90 8-16 (six) Health Base) 00:00: hours. MCG/ACT 00 inhaler albuterol 2019-0 Yes Q6H every 6 UT 108 (90 8-16 (six) Health Base) 00:00: hours. MCG/ACT 00 inhaler albuterol 2019-0 Yes Q6H every 6 UT 108 (90 8-16 (six) Health Base) 00:00: hours. MCG/ACT 00 inhaler albuterol 2019-0 Yes Q6H every 6 UT 108 (90 8-16 (six) Health Base) 00:00: hours. MCG/ACT 00 inhaler albuterol 2019-0 Yes Q6H every 6 UT 108 (90 8-16 (six) Health Base) 00:00: hours. MCG/ACT 00 inhaler albuterol 2019-0 Yes Q6H every 6 UT 108 (90 8-16 (six) Health Base) 00:00: hours. MCG/ACT 00 inhaler Albuterol Albuterol 2019-0 Yes Gus 2 puffs as Common Sulfate HFA Sulfate HFA 8-16 [place] needed [facility] 00:00: - [facility] 00 [facility] Albuterol Albuterol 2019-0 No 2{puffs QID Albuterol Sulfate HFA Sulfate HFA 8-16 _as_nee Sulfate 108 (90 108 (90 00:00: ded} HFA 108 Base) Base) 00 (90 Base) MCG/ACT MCG/ACT MCG/ACT Albuterol Albuterol 2019-0 No 2{puffs QID Albuterol Sulfate HFA Sulfate HFA 8-16 _as_nee Sulfate 108 (90 108 (90 00:00: ded} HFA 108 Base) Base) 00 (90 Base) MCG/ACT MCG/ACT MCG/ACT Albuterol Albuterol 2019-0 No 2{puffs QID Albuterol Sulfate HFA Sulfate HFA 8-16 _as_nee Sulfate 108 (90 108 (90 00:00: ded} HFA 108 Base) Base) 00 (90 Base) MCG/ACT MCG/ACT MCG/ACT Albuterol Albuterol 2019-0 No 2{puffs QID Albuterol Sulfate HFA Sulfate HFA 8-16 _as_nee Sulfate 108 (90 108 (90 00:00: ded} HFA 108 Base) Base) 00 (90 Base) MCG/ACT MCG/ACT MCG/ACT Albuterol Albuterol 2019-0 No 2{puffs QID Albuterol Sulfate HFA Sulfate HFA 8-16 _as_nee Sulfate 108 (90 108 (90 00:00: ded} HFA 108 Base) Base) 00 (90 Base) MCG/ACT MCG/ACT MCG/ACT Albuterol Albuterol 2019-0 No 2{puffs QID Albuterol Sulfate HFA Sulfate HFA 8-16 _as_nee Sulfate 108 (90 108 (90 00:00: ded} HFA 108 Base) Base) 00 (90 Base) MCG/ACT MCG/ACT MCG/ACT Albuterol Albuterol 2019-0 No 2{puffs QID Albuterol Sulfate HFA Sulfate HFA 8-16 _as_nee Sulfate 108 (90 108 (90 00:00: ded} HFA 108 Base) Base) 00 (90 Base) MCG/ACT MCG/ACT MCG/ACT Albuterol Albuterol 2019-0 No 2{puffs QID Albuterol Sulfate HFA Sulfate HFA 8-16 _as_nee Sulfate 108 (90 108 (90 00:00: ded} HFA 108 Base) Base) 00 (90 Base) MCG/ACT MCG/ACT MCG/ACT Albuterol Albuterol 2019-0 No 2{puffs QID Albuterol Sulfate HFA Sulfate HFA 8-16 _as_nee Sulfate 108 (90 108 (90 00:00: ded} HFA 108 Base) Base) 00 (90 Base) MCG/ACT MCG/ACT MCG/ACT Albuterol Albuterol 2019-0 No 2{puffs QID Albuterol Sulfate HFA Sulfate HFA 8-16 _as_nee Sulfate 108 (90 108 (90 00:00: ded} HFA 108 Base) Base) 00 (90 Base) MCG/ACT MCG/ACT MCG/ACT Albuterol Albuterol 2019-0 No 2{puffs QID Albuterol Sulfate HFA Sulfate HFA 8-16 _as_nee Sulfate 108 (90 108 (90 00:00: ded} HFA 108 Base) Base) 00 (90 Base) MCG/ACT MCG/ACT MCG/ACT Albuterol Albuterol 2019-0 No 2{puffs QID Albuterol Sulfate HFA Sulfate HFA 8-16 _as_nee Sulfate 108 (90 108 (90 00:00: ded} HFA 108 Base) Base) 00 (90 Base) MCG/ACT MCG/ACT MCG/ACT Albuterol Albuterol 2019-0 No 2{puffs QID Albuterol Sulfate HFA Sulfate HFA 8-16 _as_nee Sulfate 108 (90 108 (90 00:00: ded} HFA 108 Base) Base) 00 (90 Base) MCG/ACT MCG/ACT MCG/ACT Albuterol Albuterol 2019-0 No 2{puffs QID Albuterol Sulfate HFA Sulfate HFA 8-16 _as_nee Sulfate 108 (90 108 (90 00:00: ded} HFA 108 Base) Base) 00 (90 Base) MCG/ACT MCG/ACT MCG/ACT albuterol 2021- No 2{puff} 2 puffs. UT 108 ( 12-29 [facility]) 00:00: 00:00 MCG/ACT 00 :00 inhaler albuterol 2021- No 2 puffs as U T 108 ( 12-29 needed [facility]) 00:00: 00:00 MCG/ACT 00 :00 inhaler albuterol 2021- No 2{puff} 2 puffs. UT 108 ( 12-29 [facility]) 00:00: 00:00 MCG/ACT 00 :00 inhaler albuterol 2021- No 2 puffs as U T 108 ( 12-29 needed [facility]) 00:00: 00:00 MCG/ACT 00 :00 inhaler aspirin 81 Yes 81mg QD Take [address] MG chewable 8-10 by mouth Luke s tablet 16:15: daily. [address] citalopram Yes 40mg QD Take [address] (CELEXA) 20 8-10 by mouth Luke s MG tablet 16:15: daily. Medica l [address] [place] [address] loratadine Yes 10mg Take [address] (CLARITIN) 8-10 by mouth [facility] 10 mg 16:15: as needed. Medica l tablet [address] [place] [address] cholecalcif 0 Yes 2000U QD Take 2,[address] [facility], 8-10 Units by [facility] vitamin D3, 16:15: mouth Medic al 2,000 unit 22 daily. Scalf Tab aspirin 81 0 Yes 81mg QD Take [address] MG chewable 8-10 by mouth Luke s tablet 16:15: daily. [address] citalopram 0 Yes 40mg QD Take [address] (CELEXA) 20 8-10 by mouth Luke s MG tablet 16:15: daily. Medica l [address] [place] [address] loratadine 20190 Yes 10mg Take [address] (CLARITIN) 8-10 by mouth [facility] 10 mg 16:15: as needed. Medica l tablet [address] [place] [address] cholecalcif 20190 Yes 2000U QD Take 2,[address] [facility], 8-10 Units by [facility] vitamin D3, 16:15: mouth Medic al 2,000 unit 22 daily. [facility] aspirin 81 0 Yes 81mg QD Take [address] MG chewable 8-10 by mouth Luke s tablet 16:15: daily. [address] citalopram 0 Yes 40mg QD Take [address] (CELEXA) 20 8-10 by mouth Luke s MG tablet 16:15: daily. Medica l [address] [place] [address] loratadine 20190 Yes 10mg Take [address] (CLARITIN) 8-10 by mouth [facility] 10 mg 16:15: as needed. Medica l tablet [address] [place] [address] cholecalcif Yes 2000U QD Take 2,[address] [facility], 8-10 Units by [facility] vitamin D3, 16:15: mouth Medic al 2,000 unit 22 daily. [facility] aspirin 81 Yes 81mg QD Take [address] MG chewable 8-10 by mouth Luke s tablet 16:15: daily. [address] citalopram Yes 40mg QD Take [address] (CELEXA) 20 8-10 by mouth Luke s MG tablet 16:15: daily. Medica [address] loratadine Yes 10mg Take [address] (CLARITIN) 8-10 by mouth [facility] 10 mg 16:15: as needed. Medica l tablet [address] [place] [address] cholecalcif 0 Yes 2000U QD Take 2,[address] [facility], 8-10 Units by [facility] vitamin D3, 16:15: mouth Medic al 2,000 unit 22 daily. [facility] cholecalcif 0 Yes 2000U QD Take 2,000 UT mirian 8-10 Units by [facility] (Vitamin 00:00: mouth 1 D-3) 50 MCG 00 (one) time (1999 UT) each day. tablet citalopram Yes 40mg QD Take 40 mg U T (CeleXA) 20 8-10 by mouth 1 He alth MG tablet 00:00: (one) time 00 each day. ondansetron 0 Yes DISSOLVE 1 UT ODT 8-10 TABLET IN Health (Zofran-ODT 00:00: MOUTH ) 4 MG 00 EVERY 8 disintegrat HOURS ing tablet NEEDED FOR NAUSEA FOR UP TO 7 DAYS aspirin 81 2019-0 Yes 81mg Chew 81 UT MG chewable 8-10 mg. Health tablet 00:00: 00 loratadine 2019-0 Yes 10mg Take 10 mg U T (Claritin) 8-10 by mouth. Heal th 10 MG 00:00: tablet 00 cholecalcif 2019-0 Yes 2000U QD Take 2,000 UT mirian 8-10 Units by Health (Vitamin 00:00: mouth 1 D-3) 50 MCG 00 (one) time (1999 UT) each day. tablet citalopram 2019-0 Yes 40mg QD Take 40 mg U T (CeleXA) 20 8-10 by mouth 1 He alth MG tablet 00:00: (one) time 00 each day. ondansetron 2019-0 Yes DISSOLVE 1 UT ODT 8-10 TABLET IN Health (Zofran-ODT 00:00: MOUTH ) 4 MG 00 EVERY 8 disintegrat HOURS ing tablet NEEDED FOR NAUSEA FOR UP TO 7 DAYS cholecalcif 2019-0 Yes 2000U QD Take 2,000 UT mirian 8-10 Units by Health (Vitamin 00:00: mouth 1 D-3) 50 MCG 00 (one) time (1999 UT) each day. tablet citalopram 2019-0 Yes 40mg QD Take 40 mg U T (CeleXA) 20 8-10 by mouth 1 He alth MG tablet 00:00: (one) time 00 each day. ondansetron 2019-0 Yes DISSOLVE 1 UT ODT 8-10 TABLET IN Health (Zofran-ODT 00:00: MOUTH ) 4 MG 00 EVERY 8 disintegrat HOURS ing tablet NEEDED FOR NAUSEA FOR UP TO 7 DAYS cholecalcif 2019-0 Yes 2000U QD Take 2,000 UT mirian 8-10 Units by Health (Vitamin 00:00: mouth 1 D-3) 50 MCG 00 (one) time (1999 UT) each day. tablet citalopram 2019-0 Yes 40mg QD Take 40 mg U T (CeleXA) 20 8-10 by mouth 1 He alth MG tablet 00:00: (one) time 00 each day. ondansetron 2019-0 Yes DISSOLVE 1 UT ODT 8-10 TABLET IN Health (Zofran-ODT 00:00: MOUTH ) 4 MG 00 EVERY 8 disintegrat HOURS ing tablet NEEDED FOR NAUSEA FOR UP TO 7 DAYS cholecalcif 2019-0 Yes 2000U QD Take 2,000 UT mirian 8-10 Units by Health (Vitamin 00:00: mouth 1 D-3) 50 MCG 00 (one) time (1999 UT) each day. tablet citalopram 2019-0 Yes 40mg QD Take 40 mg U T (CeleXA) 20 8-10 by mouth 1 He alth MG tablet 00:00: (one) time 00 each day. ondansetron 2019-0 Yes DISSOLVE 1 UT ODT 8-10 TABLET IN Health (Zofran-ODT 00:00: MOUTH ) 4 MG 00 EVERY 8 disintegrat HOURS ing tablet NEEDED FOR NAUSEA FOR UP TO 7 DAYS cholecalcif 2019-0 Yes 2000U QD Take 2,000 UT mirian 8-10 Units by Health (Vitamin 00:00: mouth 1 D-3) 50 MCG 00 (one) time (1999 UT) each day. tablet citalopram 2019-0 Yes 40mg QD Take 40 mg U T (CeleXA) 20 8-10 by mouth 1 He alth MG tablet 00:00: (one) time 00 each day. ondansetron 2019-0 Yes DISSOLVE 1 UT ODT 8-10 TABLET IN Health (Zofran-ODT 00:00: MOUTH ) 4 MG 00 EVERY 8 disintegrat HOURS ing tablet NEEDED FOR NAUSEA FOR UP TO 7 DAYS cholecalcif 2019-0 Yes 2000U QD Take 2,000 UT mirian 8-10 Units by Health (Vitamin 00:00: mouth 1 D-3) 50 MCG 00 (one) time (1999 UT) each day. tablet citalopram 2019-0 Yes 40mg QD Take 40 mg U T (CeleXA) 20 8-10 by mouth 1 He alth MG tablet 00:00: (one) time 00 each day. ondansetron 2019-0 Yes DISSOLVE 1 UT ODT 8-10 TABLET IN Health (Zofran-ODT 00:00: MOUTH ) 4 MG 00 EVERY 8 disintegrat HOURS ing tablet NEEDED FOR NAUSEA FOR UP TO 7 DAYS cholecalcif 2019-0 Yes 2000U QD Take 2,000 UT mirian 8-10 Units by Health (Vitamin 00:00: mouth 1 D-3) 50 MCG 00 (one) time (1999 UT) each day. tablet citalopram 2019-0 Yes 40mg QD Take 40 mg U T (CeleXA) 20 8-10 by mouth 1 He alth MG tablet 00:00: (one) time 00 each day. ondansetron 2019-0 Yes DISSOLVE 1 UT ODT 8-10 TABLET IN Health (Zofran-ODT 00:00: MOUTH ) 4 MG 00 EVERY 8 disintegrat HOURS ing tablet NEEDED FOR NAUSEA FOR UP TO 7 DAYS cholecalcif 2019-0 Yes 2000U QD Take 2,000 UT mirian 8-10 Units by Health (Vitamin 00:00: mouth 1 D-3) 50 MCG 00 (one) time (1999 UT) each day. tablet citalopram 2019-0 Yes 40mg QD Take 40 mg U T (CeleXA) 20 8-10 by mouth 1 He alth MG tablet 00:00: (one) time 00 each day. cholecalcif 2019-0 Yes 2000U QD Take 2,000 UT mirian 8-10 Units by Health (Vitamin 00:00: mouth 1 D-3) 50 MCG 00 (one) time (1999 UT) each day. tablet citalopram 2019-0 Yes 40mg QD Take 40 mg U T (CeleXA) 20 8-10 by mouth 1 He alth MG tablet 00:00: (one) time 00 each day. cholecalcif 2019-0 Yes 2000U QD Take 2,000 UT mirian 8-10 Units by Health (Vitamin 00:00: mouth 1 D-3) 50 MCG 00 (one) time (1999 UT) each day. tablet citalopram 2019-0 Yes 40mg QD Take 40 mg U T (CeleXA) 20 8-10 by mouth 1 He alth MG tablet 00:00: (one) time 00 each day. cholecalcif 2019-0 Yes 2000U QD Take 2,000 UT mirian 8-10 Units by Health (Vitamin 00:00: mouth 1 D-3) 50 MCG 00 (one) time (1999 UT) each day. tablet citalopram 2019-0 Yes 40mg QD Take 40 mg U T (CeleXA) 20 8-10 by mouth 1 He alth MG tablet 00:00: (one) time 00 each day. cholecalcif 2019-0 Yes 2000U QD Take 2,000 UT mirian 8-10 Units by Health (Vitamin 00:00: mouth 1 D-3) 50 MCG 00 (one) time (2000 UT) each day. tablet citalopram 2019-0 Yes 40mg QD Take 40 mg U T (CeleXA) 20 8-10 by mouth 1 He alth MG tablet 00:00: (one) time 00 each day. cholecalcif 2019-0 Yes 2000U QD Take 2,000 UT mirian 8-10 Units by Health (Vitamin 00:00: mouth 1 D-3) 50 MCG 00 (one) time (1999 UT) each day. tablet citalopram 2019-0 Yes 40mg QD Take 40 mg U T (CeleXA) 20 8-10 by mouth 1 He alth MG tablet 00:00: (one) time 00 each day. cholecalcif 2019-0 Yes 2000U QD Take 2,000 UT mirian 8-10 Units by Health (Vitamin 00:00: mouth 1 D-3) 50 MCG 00 (one) time (1999 UT) each day. tablet citalopram 2019-0 Yes 40mg QD Take 40 mg U T (CeleXA) 20 8-10 by mouth 1 He alth MG tablet 00:00: (one) time 00 each day. ondansetron 2018-2022- No DISSOLVE 1 UT ODT 816 TABLET IN Health (Zofran-ODT 00:00: 00:00 MOUTH ) 4 MG 00 :00 EVERY 8 disintegrat HOURS ing tablet NEEDED FOR NAUSEA FOR UP TO 7 DAYS ondansetron 2018-0 2022- No DISSOLVE 1 UT ODT 8-16 TABLET IN [facility] (Zofran-ODT 00:00: 00:00 MOUTH ) 4 MG 00 :00 EVERY 8 disintegrat HOURS ing tablet NEEDED FOR NAUSEA FOR UP TO 7 DAYS aspirin 81 2018-2021- No 81mg Chew 81 UT MG chewable 8-10 10-03 mg. Health tablet 00:00: 00:00 00 :00 loratadine 2018-0 2021- No 10mg Take 10 mg UT (Claritin) 8-10 10-03 by mouth. Hea lth 10 MG 00:00: 00:00 tablet 00 :00 aspirin 81 2018-0 2021- No 81mg Chew 81 UT MG chewable 8-10 10-03 mg. Health tablet 00:00: 00:00 00 :00 loratadine 2018-0 2021- No 10mg Take 10 mg UT (Claritin) 8-10 10-03 by mouth. Hea lth 10 MG 00:00: 00:00 tablet 00 :00 No known No No known Metho di medications [address] 13:07: [facility] l No known No No known Metho di medications [address] 13:07: [facility] 00 l JUHI MERCHANT, Yes 20mg Q7D Inject [address] 20 mg/0.4 7-24 [facility]: [facility] 00 usly once Center a week. JUHI MERCHANT, Yes 20mg Q7D Inject [address] 20 mg/0.4 7-24 [facility] 00:00: [facility] 00 usly once Center a week. JUHI MERCHANT, Yes 20mg Q7D Inject [address] 20 mg/0.4 7-24 mg [facility] 00:00: [facility] 00 usly once Center a week. Methotrexat Yes 20mg Inject 20 U T e, PF, 7-24 mg under [facility] (Rasuvo) 20 00:00: the skin MG/0.4ML 00 every 7 solution (seven) auto-inject days. or JUHI MERCHANT, Yes 20mg Q7D Inject [address] 20 mg/0.4 7-24 mg [facility] 00:00: [facility] 00 usly once Center a week. Methotrexat 2021- No 20mg Inject 20 UT e, PF, 7-24 10-03 mg under [facility] (Rasuvo) 20 00:00: 00:00 the skin MG/0.4ML 00 :00 every 7 solution (seven) auto-inject days. or Methotrexat 2021- No 20mg Inject 20 UT e, PF, 7-24 10-03 mg under [facility] (Rasuvo) 20 00:00: 00:00 the skin MG/0.4ML 00 :00 every 7 solution (seven) auto-inject days. or folic acid Yes 1000ug QD Take 1,[address] [facility] (FOLVITE) 1 7-02 mcg by [facility] tablet 00:00: [facility] 00 daily. Scalf folic acid Yes 1000ug QD Take 1,[address] [facility] (FOLVITE) 1 7-02 mcg by [facility] tablet 00:00: [facility] 00 daily. Scalf folic acid Yes 1000ug QD Take 1,[address] [facility] [address] (FOLVITE) 1 7-02 mcg by [facility] tablet 00:00: [facility] 00 daily. Scalf cycloSPORIN Yes INSTILL 1 U T E 7-02 DROP INTO Health (Restasis) 00:00: EACH EYE 0.05 % 00 TWICE ophthalmic DAILY emulsion folic acid Yes 1000ug QD Take 1,000 [facility] (Folvite) 1 7-02 mcg by [facility] MG tablet 00:00: mouth 1 00 (one) time each day. folic acid Yes 1000ug QD Take 1,[address] [facility] [address] (FOLVITE) 1 7-02 mcg by [facility] tablet 00:00: [facility] 00 daily. Scalf cycloSPORIN 2021- No INSTILL 1 UT E 7- 10-03 DROP INTO Health (Restasis) 00:00: 00:00 EACH EYE 0.05 % 00 :00 TWICE ophthalmic DAILY emulsion folic acid 2021- No 1000ug QD Take 1,000 [facility] (Folvite) 1 7-02 10-03 mcg by Healt h MG tablet 00:00: 00:00 mouth 1 00 :00 (one) time each day. cycloSPORIN 2021- No INSTILL 1 [facility] E 7- 10-03 DROP INTO Health (Restasis) 00:00: 00:00 EACH EYE 0.05 % 00 :00 TWICE ophthalmic DAILY emulsion folic acid 2021- No 1000ug QD Take 1,000 [facility] (Folvite) 1 7-02 10-03 mcg by [facility]alt [facility] tablet 00:00: 00:00 mouth 1 00 :00 (one) time each day. TRADJENT[place] 5 0 Yes 5mg QD Take [address] mg Tab 5-11 [facility]: daily. [facility] 00 Scalf TR[place] 5 0 Yes 5mg QD Take [address] mg Tab 5-11 [facility] 00:[facility]: daily. Medical [address] [place] [address] TR[place] 5 0 Yes 5mg QD Take [address] mg Tab 5-11 [facility]: daily. [place] [id number] Center TRADJENTA 5 2019-0 Yes 5mg QD Take [address] mg Tab 5-11 [facility]: daily. [place] [id number] Center levothyroxi 2019-0 Yes 112ug Take [address] ne 4-16 mcg by [facility] (SYNTHROID, 00:00: mouth Medic al LEVOTHROID) 00 every Center 112 MCG morning tablet before breakfast. levothyroxi 2019-0 Yes 112ug Take [address] ne 4-16 mcg by [facility] (SYNTHROID, 00:00: mouth Medic al LEVOTHROID) 00 every Center 112 MCG morning tablet before breakfast. levothyroxi 2019-0 Yes 112ug Take [address] ne 4-16 mcg [facility] (SYNTHROID, 00:00: mouth Medic al LEVOTHROID) 00 every Center 112 MCG morning tablet before breakfast. levothyroxi 2019-0 Yes 112ug QD Take 1 Met hodi ne 4-[address] (SYNTHROID) 00:00: (112 mcg Ho spita 112 mcg 00 total) by l tablet mouth every morning. levothyroxi 2019-0 Yes 112ug Take [address] ne 4-16 mcg by [facility] (SYNTHROID, 00:00: mouth Medic al LEVOTHROID) 00 every Center 112 MCG morning tablet before breakfast. Nav Kenabiola 2018-0 No 40mg Common (Triamcinol (Triamcinol 4-05 S pirit one) one) 00:00: - [facility] 00 [facility] Nav Kenalog 2019-0 No 40mg Common (Triamcinol (Triamcinol 4-05 S pirit one) one) 00:00: - [facility] 00 [facility] Kenalog Kenalog 2019-0 No 40mg Common (Triamcinol (Triamcinol 4-05 S pirit one) one) 00:00: - [facility] 00 [facility] Kenalog Kenalog 2019-0 No 40mg Common (Triamcinol (Triamcinol 4-05 S pirit one) one) 00:00: - [facility] Kenalog Kenalog 2019-0 No 40mg Common (Triamcinol (Triamcinol 4-05 S pirit one) one) 00:00: - [facility] 00 [facility] Nav Chopra 2018-0 No 40mg Common (Triamcinol (Triamcinol 4-05 S pirit one) one) 00:00: - [facility] 00 [facility] Nav Chopra 2018-0 No 40mg Common (Triamcinol (Triamcinol 4-05 S pirit one) one) 00:00: [facility] [address] [facility] [facility] Ch[facility] 2018-0 No 40mg Common (Triamcinol (Triamcinol 4-05 S pirit one) one) 00:00: - [facility] 00 [facility] Nav 2018-0 No 40mg Common (Triamcinol (Triamcinol 4-05 S pirit one) one) 00:00: - [facility] 00 [facility] Nav Chopra 0 No 40mg Common (Triamcinol (Triamcinol 4-05 S pirit one) one) 00:00: - [facility] 00 [facility] Nav Chopra 0 No 40mg Common (Triamcinol (Triamcinol 4-05 S pirit one) one) 00:00: - [facility] 00 [facility] Levothyroxi Levothyroxi No QD Levothyrox ne Sodium ne Sodium ine Sodium 112 MCG 112 MCG 112 MCG Albuterol Albuterol No 1{ml_as QID Albuterol Sulfate (5 Sulfate (5 _needed Sulfate (5 MG/ML) 0.5% MG/ML) 0.5% } MG/ML) 0.5% Lancets Lancets No BID Lancets Super Thin Super Thin Super Thin n/s n/s n/s True Metrix True Metrix No True Blood Blood Metrix Glucose Glucose Blood Test - Test - Glucose Test - Vitamin D Vitamin D No Vitamin D [place] Aspir-81 81 Aspir-81 81 No 1{table QD Aspir-81 MG MG t} 81 MG Claritin 10 Claritin 10 No 1{table QD Claritin MG MG t} 10 MG Simvastatin Simvastatin No 1{table QD Simvastati 5 MG 5 MG t_in_th n 5 MG e_eveni ng} Levothyroxi Levothyroxi No QD Levothyrox ne Sodium ne Sodium ine Sodium 112 MCG 112 MCG 112 MCG Lipitor 10 Lipitor 10 No 1{table QD Lipitor 10 MG MG t} MG blood blood No BID blood glucose glucose glucose test strip test strip test strip n/s n/s n/s Citalopram Citalopram No QD Citalopram Hydrobromid Hydrobromid Hydrobromi e 40MG e 40MG de 40MG Glucometer Glucometer No Glucometer n/s n/s n/s Albuterol Albuterol No 1{ml_as QID Albuterol Sulfate (5 Sulfate (5 _needed Sulfate (5 MG/ML) 0.5% MG/ML) 0.5% } MG/ML) 0.5% Alcohol Alcohol No Alcohol Prep Pads Prep Pads Prep Pads Folic Acid Folic Acid No Folic Acid 1 MG 1 MG 1 MG Praluent 75 Praluent 75 No 1{ml} Praluent MG/ML MG/ML 75 MG/ML Lancets Lancets No BID Lancets Super Thin Super Thin Super Thin n/s n/s n/s True Metrix True Metrix No True Blood Blood Metrix Glucose Glucose Blood Test - Test - Glucose Test - Vitamin D Vitamin D No Vitamin D [place] Aspir-81 81 Aspir-81 81 No 1{table QD Aspir-81 MG MG t} 81 MG Claritin 10 Claritin 10 No 1{table QD Claritin MG MG t} 10 MG Simvastatin Simvastatin No 1{table QD Simvastati 5 MG 5 MG t_in_th n 5 MG e_eveni ng} Levothyroxi Levothyroxi No QD Levothyrox ne Sodium ne Sodium ine Sodium 112 MCG 112 MCG 112 MCG Lipitor 10 Lipitor 10 No 1{table QD Lipitor 10 MG MG t} MG blood blood No BID blood glucose glucose glucose test strip test strip test strip n/s n/s n/s Citalopram Citalopram No QD Citalopram Hydrobromid Hydrobromid Hydrobromi e 40MG e 40MG de 40MG Glucometer Glucometer No Glucometer n/s n/s n/s Albuterol Albuterol No 1{ml_as QID Albuterol Sulfate (5 Sulfate (5 _needed Sulfate (5 MG/ML) 0.5% MG/ML) 0.5% } MG/ML) 0.5% Alcohol Alcohol No Alcohol Prep Pads Prep Pads Prep Pads Folic Acid Folic Acid No Folic Acid 1 MG 1 MG 1 MG Praluent 75 Praluent 75 No 1{ml} Praluent MG/ML MG/ML 75 MG/ML Folic Acid Folic Acid No Folic Acid 1 MG 1 MG 1 MG Praluent 75 Praluent 75 No 1{ml} Praluent MG/ML MG/ML 75 MG/ML blood blood No BID blood glucose glucose glucose test strip test strip test strip n/s n/s n/s Aspir 81 Aspir 81 No 1{table QD Aspir-81 MG MG t} 81 MG Alcohol Alcohol No Alcohol Prep Pads Prep Pads Prep Pads Glucometer Glucometer No Glucometer n/s n/s n/s Simvastatin Simvastatin No 1{table QD Simvastati 5 MG 5 MG t_in_ n 5 MG e_eveni ng} Claritin 10 Claritin 10 No 1{table QD Claritin MG MG t} 10 MG Albuterol Albuterol No 1{ml_as QID Albuterol Sulfate (5 Sulfate (5 _needed Sulfate (5 MG/ML) 0.5% MG/ML) 0.5% } MG/ML) 0.5% Lancets Lancets No BID Lancets Super Thin Super Thin Super Thin n/s n/s n/s [place] Vitamin D Vitamin D No Vitamin D Citalopram Citalopram No QD Citalopram Hydrobromid Hydrobromid Hydrobromi e 40MG e 40MG de 40MG Glimepiride Glimepiride No 1{table QD Glimepirid 2 MG 2 MG t_with_ e [address]_or_t he_firs t_main_ meal_of _the_da y} True Metrix True Metrix No True Blood Blood Metrix Glucose Glucose Blood Test - Test - Glucose Test - Levothyroxi Levothyroxi No QD Levothyrox ne Sodium ne Sodium ine Sodium 112 MCG 112 MCG 112 MCG Folic Acid Folic Acid No Folic Acid 1 MG 1 MG 1 MG Praluent 75 Praluent 75 No 1{ml} Praluent MG/ML MG/ML 75 MG/ML blood blood No BID blood glucose glucose glucose test strip test strip test strip n/s n/s n/s 81 Aspir-81 81 No 1{table QD Aspir-81 MG MG t} 81 MG Alcohol Alcohol No Alcohol Prep Pads Prep Pads Prep Pads Glucometer Glucometer No Glucometer n/s n/s n/s Simvastatin Simvastatin No 1{table QD Simvastati 5 MG 5 MG t_in_th n 5 MG e_eveni ng} Claritin 10 Claritin 10 No 1{table QD Claritin MG MG t} 10 MG Albuterol Albuterol No 1{ml_as QID Albuterol Sulfate (5 Sulfate (5 _needed Sulfate (5 MG/ML) 0.5% MG/ML) 0.5% } MG/ML) 0.5% Lancets Lancets No BID Lancets Super Thin Super Thin Super Thin n/s n/s n/s [place] Vitamin D Vitamin D No Vitamin D Citalopram Citalopram No QD Citalopram Hydrobromid Hydrobromid Hydrobromi e 40MG e 40MG de 40MG Glimepiride Glimepiride No 1{table QD Glimepirid 2 MG 2 MG t_with_ e [address]_or_t he_firs t_main_ meal_of _the_da y} True Metrix True Metrix No True Blood Blood Metrix Glucose Glucose Blood Test - Test - Glucose Test - Levothyroxi Levothyroxi No QD Levothyrox ne Sodium ne Sodium ine Sodium 112 MCG 112 MCG 112 MCG Alcohol Alcohol No Alcohol Prep Pads Prep Pads Prep Pads Simvastatin Simvastatin No 1{table QD Simvastati 5 MG 5 MG t_in_th n 5 MG e_eveni ng} Glimepiride Glimepiride No 1{table QD Glimepirid 2 MG 2 MG t_with_ e [address]_or_t he_firs t_main_ meal_of _the_da y} Praluent 75 Praluent 75 No 1{ml} Praluent MG/ML MG/ML 75 MG/ML Glucometer Glucometer No Glucometer n/s n/s n/s Folic Acid Folic Acid No Folic Acid 1 MG 1 MG 1 MG GlipiZIDE GlipiZIDE No 1{table QD GlipiZIDE ER 2.5 MG ER 2.5 MG t_with_ ER 2.[address]} Levothyroxi Levothyroxi No QD Levothyrox ne Sodium ne Sodium ine Sodium 112 MCG 112 MCG 112 MCG Aspir-81 81 Aspir-81 81 No 1{table QD Aspir-81 MG MG t} 81 MG Claritin 10 Claritin 10 No 1{table QD Claritin MG MG t} 10 MG Albuterol Albuterol No 1{ml_as QID Albuterol Sulfate (5 Sulfate (5 _needed Sulfate (5 MG/ML) 0.5% MG/ML) 0.5% } MG/ML) 0.5% True Metrix True Metrix No True Blood Blood Metrix Glucose Glucose Blood Test - Test - Glucose Test - [place] Vitamin D Vitamin D No Vitamin D Citalopram Citalopram No QD Citalopram Hydrobromid Hydrobromid Hydrobromi e 40MG e 40MG de 40MG blood blood No BID blood glucose glucose glucose test strip test strip test strip n/s n/s n/s Lancets Lancets No BID Lancets Super Thin Super Thin Super Thin n/s n/s n/s Alcohol Alcohol No Alcohol Prep Pads Prep Pads Prep Pads Simvastatin Simvastatin No 1{table QD Simvastati 5 MG 5 MG t_in_th n 5 MG e_eveni ng} Glimepiride Glimepiride No 1{table QD Glimepirid 2 MG 2 MG t_with_ e [address]_or_t he_firs t_main_ meal_of _the_da y} Praluent 75 Praluent 75 No 1{ml} Praluent MG/ML MG/ML 75 MG/ML Glucometer Glucometer No Glucometer n/s n/s n/s Folic Acid Folic Acid No Folic Acid 1 MG 1 MG 1 MG glipiZIDE glipiZIDE No 1{table QD glipiZIDE ER 2.5 MG ER 2.5 MG t_with_ ER 2.[address]} Levothyroxi Levothyroxi No QD Levothyrox ne Sodium ne Sodium ine Sodium 112 MCG 112 MCG 112 MCG Aspir-81 81 Aspir-81 81 No 1{table QD Aspir-81 MG MG t} 81 MG Claritin 10 Claritin 10 No 1{table QD Claritin MG MG t} 10 MG Albuterol Albuterol No 1{ml_as QID Albuterol Sulfate (5 Sulfate (5 _needed Sulfate (5 MG/ML) 0.5% MG/ML) 0.5% } MG/ML) 0.5% True Metrix True Metrix No True Blood Blood Metrix Glucose Glucose Blood Test - Test - Glucose Test - [place] Vitamin D Vitamin D No Vitamin D Citalopram Citalopram No QD Citalopram Hydrobromid Hydrobromid Hydrobromi e 40MG e 40MG de 40MG blood blood No BID blood glucose glucose glucose test strip test strip test strip n/s n/s n/s Lancets Lancets No BID Lancets Super Thin Super Thin Super Thin n/s n/s n/s Alcohol Alcohol No Alcohol Prep Pads Prep Pads Prep Pads Claritin 10 Claritin 10 No 1{table QD Claritin MG MG t} 10 MG Vitamin D Vitamin D No Vitamin D Aspir-81 81 Aspir-81 81 No 1{table QD Aspir-81 MG MG t} 81 MG True Metrix True Metrix No True Blood Blood Metrix Glucose Glucose Blood Test - Test - Glucose Test - Albuterol Albuterol No 1{ml_as QID Albuterol Sulfate (5 Sulfate (5 _needed Sulfate (5 MG/ML) 0.5% MG/ML) 0.5% } MG/ML) 0.5% Citalopram Citalopram No QD Citalopram Hydrobromid Hydrobromid Hydrobromi e 40MG e 40MG de 40MG Ursodiol Ursodiol No Ursodiol 300 MG 300 MG 300 MG Levothyroxi Levothyroxi No QD Levothyrox ne Sodium ne Sodium ine Sodium 112 MCG 112 MCG 112 MCG Glucometer Glucometer No Glucometer n/s n/s n/s Folic Acid Folic Acid No Folic Acid 1 MG 1 MG 1 MG Lancets Lancets No BID Lancets Super Thin Super Thin Super Thin n/s n/s n/s blood blood No BID blood glucose glucose glucose test strip test strip test strip n/s n/s n/s Alcohol Alcohol No Alcohol Prep Pads Prep Pads Prep Pads Claritin 10 Claritin 10 No 1{table QD Claritin MG MG t} 10 MG Vitamin D Vitamin D No Vitamin D Aspir-81 81 Aspir-81 81 No 1{table QD Aspir-81 MG MG t} 81 MG True Metrix True Metrix No True Blood Blood Metrix Glucose Glucose Blood Test - Test - Glucose Test - Albuterol Albuterol No 1{ml_as QID Albuterol Sulfate (5 Sulfate (5 _needed Sulfate (5 MG/ML) 0.5% MG/ML) 0.5% } MG/ML) 0.5% Citalopram Citalopram No QD Citalopram Hydrobromid Hydrobromid Hydrobromi e 40MG e 40MG de 40MG Ursodiol Ursodiol No Ursodiol 300 MG 300 MG 300 MG Levothyroxi Levothyroxi No QD Levothyrox ne Sodium ne Sodium ine Sodium 112 MCG 112 MCG 112 MCG Glucometer Glucometer No Glucometer n/s n/s n/s Folic Acid Folic Acid No Folic Acid 1 MG 1 MG 1 MG Lancets Lancets No BID Lancets Super Thin Super Thin Super Thin n/s n/s n/s blood blood No BID blood glucose glucose glucose test strip test strip test strip n/s n/s n/s Alcohol Alcohol No Alcohol Prep Pads Prep Pads Prep Pads Claritin 10 Claritin 10 No 1{table QD Claritin MG MG t} 10 MG Vitamin D Vitamin D No Vitamin D Aspir-81 81 Aspir-81 81 No 1{table QD Aspir-81 MG MG t} 81 MG True Metrix True Metrix No True Blood Blood Metrix Glucose Glucose Blood Test - Test - Glucose Test - Albuterol Albuterol No 1{ml_as QID Albuterol Sulfate (5 Sulfate (5 _needed Sulfate (5 MG/ML) 0.5% MG/ML) 0.5% } MG/ML) 0.5% Citalopram Citalopram No QD Citalopram Hydrobromid Hydrobromid Hydrobromi e 40MG e 40MG de 40MG Ursodiol Ursodiol No Ursodiol 300 MG 300 MG 300 MG Levothyroxi Levothyroxi No QD Levothyrox ne Sodium ne Sodium ine Sodium 112 MCG 112 MCG 112 MCG Glucometer Glucometer No Glucometer n/s n/s n/s Folic Acid Folic Acid No Folic Acid 1 MG 1 MG 1 MG Lancets Lancets No BID Lancets Super Thin Super Thin Super Thin n/s n/s n/s blood blood No BID blood glucose glucose glucose test strip test strip test strip n/s n/s n/s Lancets Lancets No BID Lancets Super Thin Super Thin Super Thin n/s n/s n/s True Metrix True Metrix No True Blood Blood Metrix Glucose Glucose Blood Test - Test - Glucose Test - blood blood No BID blood glucose glucose glucose test strip test strip test strip n/s n/s n/s Folic Acid Folic Acid No Folic Acid 1 MG 1 MG 1 MG Alcohol Alcohol No Alcohol Prep Pads Prep Pads Prep Pads Aspir-81 81 Aspir-81 81 No 1{table QD Aspir-81 MG MG t} 81 MG Ursodiol Ursodiol No Ursodiol 300 MG 300 MG 300 MG Vitamin D Vitamin D No Vitamin D Albuterol Albuterol No 1{ml_as QID Albuterol Sulfate (5 Sulfate (5 _needed Sulfate (5 MG/ML) 0.5% MG/ML) 0.5% } MG/ML) 0.5% Levothyroxi Levothyroxi No QD Levothyrox ne Sodium ne Sodium ine Sodium 112 MCG 112 MCG 112 MCG Claritin 10 Claritin 10 No 1{table QD Claritin MG MG t} 10 MG Glucometer Glucometer No Glucometer n/s n/s n/s Citalopram Citalopram No QD Citalopram Hydrobromid Hydrobromid Hydrobromi e 40MG e 40MG de 40MG Ursodiol Ursodiol No Ursodiol 300 MG 300 MG 300 MG Levothyroxi Levothyroxi No QD Levothyrox ne Sodium ne Sodium ine Sodium 112 MCG 112 MCG 112 MCG Citalopram Citalopram No QD Citalopram Hydrobromid Hydrobromid Hydrobromi e 40MG e 40MG de 40MG Aspir-81 81 Aspir-81 81 No 1{table QD Aspir-81 MG MG t} 81 MG Claritin 10 Claritin 10 No 1{table QD Claritin MG MG t} 10 MG Alcohol Alcohol No Alcohol Prep Pads Prep Pads Prep Pads Lancets Lancets No BID Lancets Super Thin Super Thin Super Thin n/s n/s n/s Vitamin D Vitamin D No Vitamin D blood blood No BID blood glucose glucose glucose test strip test strip test strip n/s n/s n/s True Metrix True Metrix No True Blood Blood Metrix Glucose Glucose Blood Test - Test - Glucose Test - Glucometer Glucometer No Glucometer n/s n/s n/s Albuterol Albuterol No 1{ml_as QID Albuterol Sulfate (5 Sulfate (5 _needed Sulfate (5 MG/ML) 0.5% MG/ML) 0.5% } MG/ML) 0.5% Folic Acid Folic Acid No Folic Acid 1 MG 1 MG 1 MG Ursodiol Ursodiol No Ursodiol 300 MG 300 MG 300 MG Levothyroxi Levothyroxi No QD Levothyrox ne Sodium ne Sodium ine Sodium 112 MCG 112 MCG 112 MCG Citalopram Citalopram No QD Citalopram Hydrobromid Hydrobromid Hydrobromi e 40MG e 40MG de 40MG Aspir-81 81 Aspir-81 81 No 1{table QD Aspir-81 MG MG t} 81 MG Claritin 10 Claritin 10 No 1{table QD Claritin MG MG t} 10 MG Alcohol Alcohol No Alcohol Prep Pads Prep Pads Prep Pads Lancets Lancets No BID Lancets Super Thin Super Thin Super Thin n/s n/s n/s Vitamin D Vitamin D No Vitamin D blood blood No BID blood glucose glucose glucose test strip test strip test strip n/s n/s n/s True Metrix True Metrix No True Blood Blood Metrix Glucose Glucose Blood Test - Test - Glucose Test - Glucometer Glucometer No Glucometer n/s n/s n/s Albuterol Albuterol No 1{ml_as QID Albuterol Sulfate (5 Sulfate (5 _needed Sulfate (5 MG/ML) 0.5% MG/ML) 0.5% } MG/ML) 0.5% Folic Acid Folic Acid No Folic Acid 1 MG 1 MG 1 MG blood blood No BID blood glucose glucose glucose test strip test strip test strip n/s n/s n/s Citalopram Citalopram No QD Citalopram Hydrobromid Hydrobromid Hydrobromi e 40MG e 40MG de 40MG Albuterol Albuterol No 1{ml_as QID Albuterol Sulfate (5 Sulfate (5 _needed Sulfate (5 MG/ML) 0.5% MG/ML) 0.5% } MG/ML) 0.5% Claritin 10 Claritin 10 No 1{table QD Claritin MG MG t} 10 MG True Metrix True Metrix No True Blood Blood Metrix Glucose Glucose Blood Test - Test - Glucose Test - Levothyroxi Levothyroxi No QD Levothyrox ne Sodium ne Sodium ine Sodium 112 MCG 112 MCG 112 MCG Glucometer Glucometer No Glucometer n/s n/s n/s Ursodiol Ursodiol No Ursodiol 300 MG 300 MG 300 MG Folic Acid Folic Acid No Folic Acid 1 MG 1 MG 1 MG Aspir-81 81 Aspir-81 81 No 1{table QD Aspir-81 MG MG t} 81 MG Citalopram Citalopram No Citalopram Hydrobromid Hydrobromid Hydrobromi e 40 MG e 40 MG de 40 MG Lancets Lancets No BID Lancets Super Thin Super Thin Super Thin n/s n/s n/s Vitamin D Vitamin D No Vitamin D Alcohol Alcohol No Alcohol Prep Pads Prep Pads Prep Pads blood blood No BID blood glucose glucose glucose test strip test strip test strip n/s n/s n/s Citalopram Citalopram No QD Citalopram Hydrobromid Hydrobromid Hydrobromi e 40MG e 40MG de 40MG Albuterol Albuterol No 1{ml_as QID Albuterol Sulfate (5 Sulfate (5 _needed Sulfate (5 MG/ML) 0.5% MG/ML) 0.5% } MG/ML) 0.5% Claritin 10 Claritin 10 No 1{table QD Claritin MG MG t} 10 MG True Metrix True Metrix No True Blood Blood Metrix Glucose Glucose Blood Test - Test - Glucose Test - Levothyroxi Levothyroxi No QD Levothyrox ne Sodium ne Sodium ine Sodium 112 MCG 112 MCG 112 MCG Glucometer Glucometer No Glucometer n/s n/s n/s Ursodiol Ursodiol No Ursodiol 300 MG 300 MG 300 MG Folic Acid Folic Acid No Folic Acid 1 MG 1 MG 1 MG Aspir-81 81 Aspir-81 81 No 1{table QD Aspir-81 MG MG t} 81 MG Citalopram Citalopram No Citalopram Hydrobromid Hydrobromid Hydrobromi e 40 MG e 40 MG de 40 MG Lancets Lancets No BID Lancets Super Thin Super Thin Super Thin n/s n/s n/s Vitamin D Vitamin D No Vitamin D Alcohol Alcohol No Alcohol Prep Pads Prep Pads Prep Pads Glucometer Glucometer No Glucometer n/s n/s n/s Vitamin D Vitamin D No Vitamin D True Metrix True Metrix No True Blood Blood Metrix Glucose Glucose Blood Test - Test - Glucose Test - Citalopram Citalopram No QD Citalopram Hydrobromid Hydrobromid Hydrobromi e 40MG e 40MG de 40MG Lancets Lancets No BID Lancets Super Thin Super Thin Super Thin n/s n/s n/s Aspir-81 81 Aspir-81 81 No 1{table QD Aspir-81 MG MG t} 81 MG Alcohol Alcohol No Alcohol Prep Pads Prep Pads Prep Pads Levothyroxi Levothyroxi No QD Levothyrox ne Sodium ne Sodium ine Sodium 112 MCG 112 MCG 112 MCG Claritin 10 Claritin 10 No 1{table QD Claritin MG MG t} 10 MG blood blood No BID blood glucose glucose glucose test strip test strip test strip n/s n/s n/s Citalopram Citalopram No Citalopram Hydrobromid Hydrobromid Hydrobromi e 40 MG e 40 MG de 40 MG Folic Acid Folic Acid No Folic Acid 1 MG 1 MG 1 MG Ursodiol Ursodiol No Ursodiol 300 MG 300 MG 300 MG Albuterol Albuterol No 1{ml_as QID Albuterol Sulfate (5 Sulfate (5 _needed Sulfate (5 MG/ML) 0.5% MG/ML) 0.5% } MG/ML) 0.5% Glucometer Glucometer No Glucometer n/s n/s n/s Vitamin D Vitamin D No Vitamin D True Metrix True Metrix No True Blood Blood Metrix Glucose Glucose Blood Test - Test - Glucose Test - Citalopram Citalopram No QD Citalopram Hydrobromid Hydrobromid Hydrobromi e 40MG e 40MG de 40MG Lancets Lancets No BID Lancets Super Thin Super Thin Super Thin n/s n/s n/s Aspir-81 81 Aspir-81 81 No 1{table QD Aspir-81 MG MG t} 81 MG Alcohol Alcohol No Alcohol Prep Pads Prep Pads Prep Pads Levothyroxi Levothyroxi No QD Levothyrox ne Sodium ne Sodium ine Sodium 112 MCG 112 MCG 112 MCG Claritin 10 Claritin 10 No 1{table QD Claritin MG MG t} 10 MG blood blood No BID blood glucose glucose glucose test strip test strip test strip n/s n/s n/s Citalopram Citalopram No Citalopram Hydrobromid Hydrobromid Hydrobromi e 40 MG e 40 MG de 40 MG Folic Acid Folic Acid No Folic Acid 1 MG 1 MG 1 MG Ursodiol Ursodiol No Ursodiol 300 MG 300 MG 300 MG Albuterol Albuterol No 1{ml_as QID Albuterol Sulfate (5 Sulfate (5 _needed Sulfate (5 MG/ML) 0.5% MG/ML) 0.5% } MG/ML) 0.5% Glucometer Glucometer No Glucometer n/s n/s n/s Vitamin D Vitamin D No Vitamin D True Metrix True Metrix No True Blood Blood Metrix Glucose Glucose Blood Test - Test - Glucose Test - Citalopram Citalopram No QD Citalopram Hydrobromid Hydrobromid Hydrobromi e 40MG e 40MG de 40MG Lancets Lancets No BID Lancets Super Thin Super Thin Super Thin n/s n/s n/s Aspir-81 81 Aspir-81 81 No 1{table QD Aspir-81 MG MG t} 81 MG Alcohol Alcohol No Alcohol Prep Pads Prep Pads Prep Pads Levothyroxi Levothyroxi No QD Levothyrox ne Sodium ne Sodium ine Sodium 112 MCG 112 MCG 112 MCG Claritin 10 Claritin 10 No 1{table QD Claritin MG MG t} 10 MG blood blood No BID blood glucose glucose glucose test strip test strip test strip n/s n/s n/s Citalopram Citalopram No Citalopram Hydrobromid Hydrobromid Hydrobromi e 40 MG e 40 MG de 40 MG Folic Acid Folic Acid No Folic Acid 1 MG 1 MG 1 MG Ursodiol Ursodiol No Ursodiol 300 MG 300 MG 300 MG Albuterol Albuterol No 1{ml_as QID Albuterol Sulfate (5 Sulfate (5 _needed Sulfate (5 MG/ML) 0.5% MG/ML) 0.5% } MG/ML) 0.5% Ursodiol Ursodiol No Ursodiol 300 MG 300 MG 300 MG Citalopram Citalopram No QD Citalopram Hydrobromid Hydrobromid Hydrobromi e 40MG e 40MG de 40MG Aspir-81 81 Aspir-81 81 No 1{table QD Aspir-81 MG MG t} 81 MG blood blood No BID blood glucose glucose glucose test strip test strip test strip n/s n/s n/s Glucometer Glucometer No Glucometer n/s n/s n/s Lancets Lancets No BID Lancets Super Thin Super Thin Super Thin n/s n/s n/s Folic Acid Folic Acid No Folic Acid 1 MG 1 MG 1 MG Levothyroxi Levothyroxi No QD Levothyrox ne Sodium ne Sodium ine Sodium 112 MCG 112 MCG 112 MCG True Metrix True Metrix No True Blood Blood Metrix Glucose Glucose Blood Test - Test - Glucose Test - [facility] No 2{table TID Creon [id number] ts} [id number] UNIT 0 UNIT 00 UNIT Albuterol Albuterol No 1{ml_as QID Albuterol Sulfate (5 Sulfate (5 _needed Sulfate (5 MG/ML) 0.5% MG/ML) 0.5% } MG/ML) 0.5% Citalopram Citalopram No Citalopram Hydrobromid Hydrobromid Hydrobromi e 40 MG e 40 MG de 40 MG Alcohol Alcohol No Alcohol Prep Pads Prep Pads Prep Pads Vitamin D Vitamin D No Vitamin D Claritin 10 Claritin 10 No 1{table QD Claritin MG MG t} 10 MG Ursodiol Ursodiol No Ursodiol 300 MG 300 MG 300 MG Citalopram Citalopram No QD Citalopram Hydrobromid Hydrobromid Hydrobromi e 40MG e 40MG de 40MG Aspir-81 81 Aspir-81 81 No 1{table QD Aspir-81 MG MG t} 81 MG blood blood No BID blood glucose glucose glucose test strip test strip test strip n/s n/s n/s Glucometer Glucometer No Glucometer n/s n/s n/s Lancets Lancets No BID Lancets Super Thin Super Thin Super Thin n/s n/s n/s Folic Acid Folic Acid No Folic Acid 1 MG 1 MG 1 MG Levothyroxi Levothyroxi No QD Levothyrox ne Sodium ne Sodium ine Sodium 112 MCG 112 MCG 112 MCG True Metrix True Metrix No True Blood Blood Metrix Glucose Glucose Blood Test - Test - Glucose Test - [facility] Cre No 2{table TID Creon [id number] ts} [id number] 0 UNIT 0 UNIT 00 UNIT Albuterol Albuterol No 1{ml_as QID Albuterol Sulfate (5 Sulfate (5 _needed Sulfate (5 MG/ML) 0.5% MG/ML) 0.5% } MG/ML) 0.5% Citalopram Citalopram No Citalopram Hydrobromid Hydrobromid Hydrobromi e 40 MG e 40 MG de 40 MG Alcohol Alcohol No Alcohol Prep Pads Prep Pads Prep Pads Vitamin D Vitamin D No Vitamin D Claritin 10 Claritin 10 No 1{table QD Claritin MG MG t} 10 MG Levothyroxi Levothyroxi No QD Levothyrox ne Sodium ne Sodium ine Sodium 112 MCG 112 MCG 112 MCG Aspir-81 81 Aspir-81 81 No 1{table QD Aspir-81 MG MG t} 81 MG blood blood No BID blood glucose glucose glucose test strip test strip test strip n/s n/s n/s Glucometer Glucometer No Glucometer n/s n/s n/s Lancets Lancets No BID Lancets Super Thin Super Thin Super Thin n/s n/s n/s Citalopram Citalopram No Citalopram Hydrobromid Hydrobromid Hydrobromi e 40 MG e 40 MG de 40 MG Folic Acid Folic Acid No Folic Acid 1 MG 1 MG 1 MG True Metrix True Metrix No True Blood Blood Metrix Glucose Glucose Blood Test - Test - Glucose Test - Claritin 10 Claritin 10 No 1{table QD Claritin MG MG t} 10 MG Albuterol Albuterol No 1{ml_as QID Albuterol Sulfate (5 Sulfate (5 _needed Sulfate (5 MG/ML) 0.5% MG/ML) 0.5% } MG/ML) 0.5% Creon Creon No 2{table TID Creon [id number] ts} [id number] 0 UNIT 0 UNIT 00 UNIT Alcohol Alcohol No Alcohol Prep Pads Prep Pads Prep Pads Vitamin D Vitamin D No Vitamin D Ursodiol Ursodiol No Ursodiol 300 MG 300 MG 300 MG Aspir-81 81 Aspir-81 81 No 1{table QD Aspir-81 MG MG t} 81 MG Ursodiol Ursodiol No Ursodiol 300 MG 300 MG 300 MG Glucometer Glucometer No Glucometer n/s n/s n/s blood blood No BID blood glucose glucose glucose test strip test strip test strip n/s n/s n/s Folic Acid Folic Acid No Folic Acid 1 MG 1 MG 1 MG Levothyroxi Levothyroxi No QD Levothyrox ne Sodium ne Sodium ine Sodium 112 MCG 112 MCG 112 MCG Citalopram Citalopram No Citalopram Hydrobromid Hydrobromid Hydrobromi e 40 MG e 40 MG de 40 MG Albuterol Albuterol No 1{ml_as QID Albuterol Sulfate (5 Sulfate (5 _needed Sulfate (5 MG/ML) 0.5% MG/ML) 0.5% } MG/ML) 0.5% Alcohol Alcohol No Alcohol Prep Pads Prep Pads Prep Pads Creon Creon No 2{table TID Creon [id number] ts} [id number] 0 UNIT 0 UNIT 00 UNIT Claritin 10 Claritin 10 No 1{table QD Claritin MG MG t} 10 MG Citalopram Citalopram No QD Citalopram Hydrobromid Hydrobromid Hydrobromi e 40MG e 40MG de 40MG True Metrix True Metrix No True Blood Blood Metrix Glucose Glucose Blood Test - Test - Glucose Test - Lancets Lancets No BID Lancets Super Thin Super Thin Super Thin n/s n/s n/s Vitamin D Vitamin D No Vitamin D Aspir-81 81 Aspir-81 81 No 1{table QD Aspir-81 MG MG t} 81 MG Ursodiol Ursodiol No Ursodiol 300 MG 300 MG 300 MG Glucometer Glucometer No Glucometer n/s n/s n/s blood blood No BID blood glucose glucose glucose test strip test strip test strip n/s n/s n/s Folic Acid Folic Acid No Folic Acid 1 MG 1 MG 1 MG Levothyroxi Levothyroxi No QD Levothyrox ne Sodium ne Sodium ine Sodium 112 MCG 112 MCG 112 MCG Citalopram Citalopram No Citalopram Hydrobromid Hydrobromid Hydrobromi e 40 MG e 40 MG de 40 MG Albuterol Albuterol No 1{ml_as QID Albuterol Sulfate (5 Sulfate (5 _needed Sulfate (5 MG/ML) 0.5% MG/ML) 0.5% } MG/ML) 0.5% Alcohol Alcohol No Alcohol Prep Pads Prep Pads Prep Pads Creon Creon No 2{table TID Creon [id number] ts} [id number] 0 UNIT 0 UNIT 00 UNIT Claritin 10 Claritin 10 No 1{table QD Claritin MG MG t} 10 MG Citalopram Citalopram No QD Citalopram Hydrobromid Hydrobromid Hydrobromi e 40MG e 40MG de 40MG True Metrix True Metrix No True Blood Blood Metrix Glucose Glucose Blood Test - Test - Glucose Test - Lancets Lancets No BID Lancets Super Thin Super Thin Super Thin n/s n/s n/s Vitamin D Vitamin D No Vitamin D Glucometer Glucometer No Glucometer n/s n/s n/s Vitamin D Vitamin D No Vitamin D True Metrix True Metrix No True Blood Blood Metrix Glucose Glucose Blood Test - Test - Glucose Test - Citalopram Citalopram No QD Citalopram Hydrobromid Hydrobromid Hydrobromi e 40MG e 40MG de 40MG Lancets Lancets No BID Lancets Super Thin Super Thin Super Thin n/s n/s n/s No known No [facility] No known No [facility] Praluent Praluent Yes Gus Inject 1 C ommon [place] ml [facility] Glucometer Glucometer Yes Gus one C ommon [facility] Vitamin D Vitamin D Yes Gus not Com mon [place] defined [facility] Jardiance Jardiance Yes Gus 1 tablet Common [facility] Claritin Claritin Yes Gus 1 tablet C ommon [facility] blood blood Yes Gus one Common glucose glucose [facility] [facility] test strip test strip - C HI [facility] Albuterol Albuterol Yes Gus 1 ml as Common Sulfate Sulfate [place] needed [facility] True Metrix True Metrix Yes Gus USE 1 Common Blood Blood [place] STRIP TO Spirit Glucose Glucose CHECK - [facility] Test Test GLUCOSE [facility] Lancets Lancets Yes Gus one Common Super Thin Super Thin [place] Sp curtis [facility] Aspir-81 Aspir-81 Yes Gus 1 tablet C ommon [place] [facility] - [facility] Folic Acid Folic Acid Yes Gus TAKE 1 Common [place] TABLET BY Spirit MOUTH ONCE - [facility] DAILY [facility] Levothyroxi Levothyroxi Yes Gus 1 tablet Common ne Sodium ne Sodium [place] on an Spi rit empty - [facility] stomach in [facility] Citalopram Citalopram Yes Gus take one Common Hydrobromid Hydrobromid [place] tablet by Spirit e e mouth once - [facility] daily [facility] Alcohol Alcohol Yes Gus as Common Prep Pads Prep Pads [place] directed [facility] - [facility] Aspir- 81 Aspir- 81 No 1{table QD - MG MG t} 81 MG Alcohol Alcohol No Alcohol Prep Pads Prep Pads Prep Pads Levothyroxi Levothyroxi No QD Levothyrox ne Sodium ne Sodium ine Sodium 112 MCG 112 MCG 112 MCG Claritin 10 Claritin 10 No 1{table QD Claritin MG MG t} 10 MG blood blood No BID blood glucose glucose glucose test strip test strip test strip n/s n/s n/s Citalopram Citalopram No Citalopram Hydrobromid Hydrobromid Hydrobromi e 40 MG e 40 MG de 40 MG Folic Acid Folic Acid No Folic Acid 1 MG 1 MG 1 MG Ursodiol Ursodiol No Ursodiol 300 MG 300 MG 300 MG Albuterol Albuterol No 1{ml_as QID Albuterol Sulfate (5 Sulfate (5 _needed Sulfate (5 MG/ML) 0.5% MG/ML) 0.5% } MG/ML) 0.5% Glucometer Glucometer No Glucometer n/s n/s n/s blood blood No BID blood glucose glucose glucose test strip test strip test strip n/s n/s n/s Lancets Lancets No BID Lancets Super Thin Super Thin Super Thin n/s n/s n/s - 81 Aspir 81 No 1{table QD Aspir-81 MG MG t} 81 MG Citalopram Citalopram No QD Citalopram Hydrobromid Hydrobromid Hydrobromi e 40MG e 40MG de 40MG Praluent 75 Praluent 75 No Praluent MG/ML MG/ML 75 MG/ML True Metrix True Metrix No True Blood Blood Metrix Glucose Glucose Blood Test - Test - Glucose Test - Claritin 10 Claritin 10 No 1{table QD Claritin MG MG t} 10 MG Levothyroxi Levothyroxi No QD Levothyrox ne Sodium ne Sodium ine Sodium 112 MCG 112 MCG 112 MCG Alcohol Alcohol No Alcohol Prep Pads Prep Pads Prep Pads Vitamin D Vitamin D No Vitamin D Jardiance Jardiance No 1{table QD Jardiance 10 MG 10 MG t} 10 MG Albuterol Albuterol No 1{ml_as QID Albuterol Sulfate (5 Sulfate (5 _needed Sulfate (5 MG/ML) 0.5% MG/ML) 0.5% } MG/ML) 0.5% Folic Acid Folic Acid No Folic Acid 1 MG 1 MG 1 MG Citalopram Citalopram No QD Citalopram Hydrobromid Hydrobromid Hydrobromi e 40MG e 40MG de 40MG Alcohol Alcohol No Alcohol Prep Pads Prep Pads Prep Pads Aspir-81 81 Aspir-81 81 No 1{table QD Aspir-81 MG MG t} 81 MG Praluent 75 Praluent 75 No Praluent MG/ML MG/ML 75 MG/ML Claritin 10 Claritin 10 No 1{table QD Claritin MG MG t} 10 MG Levothyroxi Levothyroxi No QD Levothyrox ne Sodium ne Sodium ine Sodium 112 MCG 112 MCG 112 MCG Vitamin D Vitamin D No Vitamin D Glucometer Glucometer No Glucometer n/s n/s n/s Lancets Lancets No BID Lancets Super Thin Super Thin Super Thin n/s n/s n/s Folic Acid Folic Acid No Folic Acid 1 MG 1 MG 1 MG blood blood No BID blood glucose glucose glucose test strip test strip test strip n/s n/s n/s True Metrix True Metrix No True Blood Blood Metrix Glucose Glucose Blood Test - Test - Glucose Test - Albuterol Albuterol No 1{ml_as QID Albuterol Sulfate (5 Sulfate (5 _needed Sulfate (5 MG/ML) 0.5% MG/ML) 0.5% } MG/ML) 0.5% Vitamin D Vitamin D No Vitamin D Aspir-81 81 Aspir-81 81 No 1{table QD Aspir-81 MG MG t} 81 MG blood blood No BID blood glucose glucose glucose test strip test strip test strip n/s n/s n/s Levothyroxi Levothyroxi No QD Levothyrox ne Sodium ne Sodium ine Sodium 112 MCG 112 MCG 112 MCG Citalopram Citalopram No QD Citalopram Hydrobromid Hydrobromid Hydrobromi e 40MG e 40MG de 40MG Lancets Lancets No BID Lancets Super Thin Super Thin Super Thin n/s n/s n/s Alcohol Alcohol No Alcohol Prep Pads Prep Pads Prep Pads Folic Acid Folic Acid No Folic Acid 1 MG 1 MG 1 MG Praluent 75 Praluent 75 No Praluent MG/ML MG/ML 75 MG/ML True Metrix True Metrix No True Blood Blood Metrix Glucose Glucose Blood Test - Test - Glucose Test - Albuterol Albuterol No 1{ml_as QID Albuterol Sulfate (5 Sulfate (5 _needed Sulfate (5 MG/ML) 0.5% MG/ML) 0.5% } MG/ML) 0.5% Claritin 10 Claritin 10 No 1{table QD Claritin MG MG t} 10 MG Glucometer Glucometer No Glucometer n/s n/s n/s True Metrix True Metrix No True Blood Blood Metrix Glucose Glucose Blood Test - Test - Glucose Test - Folic Acid Folic Acid No Folic Acid 1 MG 1 MG 1 MG Citalopram Citalopram No QD Citalopram Hydrobromid Hydrobromid Hydrobromi e 40MG e 40MG de 40MG Claritin 10 Claritin 10 No 1{table QD Claritin MG MG t} 10 MG Praluent 75 Praluent 75 No Praluent MG/ML MG/ML 75 MG/ML Aspir-81 81 Aspir-81 81 No 1{table QD Aspir-81 MG MG t} 81 MG Glucometer Glucometer No Glucometer n/s n/s n/s [place] Albuterol Albuterol No 1{ml_as QID Albuterol Sulfate (5 Sulfate (5 _needed Sulfate (5 MG/ML) 0.5% MG/ML) 0.5% } MG/ML) 0.5% blood blood No BID blood glucose glucose glucose test strip test strip test strip n/s n/s n/s Alcohol Alcohol No Alcohol Prep Pads Prep Pads Prep Pads Vitamin D Vitamin D No Vitamin D Levothyroxi Levothyroxi No QD Levothyrox ne Sodium ne Sodium ine Sodium 112 MCG 112 MCG 112 MCG Lancets Lancets No BID Lancets Super Thin Super Thin Super Thin n/s n/s n/s True Metrix True Metrix No True Blood Blood Metrix Glucose Glucose Blood Test - Test - Glucose Test - Folic Acid Folic Acid No Folic Acid 1 MG 1 MG 1 MG Citalopram Citalopram No QD Citalopram Hydrobromid Hydrobromid Hydrobromi e 40MG e 40MG de 40MG Praluent 75 Praluent 75 No 1{ml} Praluent MG/ML MG/ML 75 MG/ML Claritin 10 Claritin 10 No 1{table QD Claritin MG MG t} 10 MG Aspir-81 81 Aspir-81 81 No 1{table QD Aspir-81 MG MG t} 81 MG Glucometer Glucometer No Glucometer n/s n/s n/s [place] Albuterol Albuterol No 1{ml_as QID Albuterol Sulfate (5 Sulfate (5 _needed Sulfate (5 MG/ML) 0.5% MG/ML) 0.5% } MG/ML) 0.5% blood blood No BID blood glucose glucose glucose test strip test strip test strip n/s n/s n/s Alcohol Alcohol No Alcohol Prep Pads Prep Pads Prep Pads Vitamin D Vitamin D No Vitamin D Levothyroxi Levothyroxi No QD Levothyrox ne Sodium ne Sodium ine Sodium 112 MCG 112 MCG 112 MCG Lancets Lancets No BID Lancets Super Thin Super Thin Super Thin n/s n/s n/s True Metrix True Metrix No True Blood Blood Metrix Glucose Glucose Blood Test - Test - Glucose Test - Folic Acid Folic Acid No Folic Acid 1 MG 1 MG 1 MG Citalopram Citalopram No QD Citalopram Hydrobromid Hydrobromid Hydrobromi e 40MG e 40MG de 40MG Aspir-81 81 Aspir-81 81 No 1{table QD Aspir-81 MG MG t} 81 MG Claritin 10 Claritin 10 No 1{table QD Claritin MG MG t} 10 MG Vitamin D Vitamin D No Vitamin D Glucometer Glucometer No Glucometer n/s n/s n/s [place] Albuterol Albuterol No 1{ml_as QID Albuterol Sulfate (5 Sulfate (5 _needed Sulfate (5 MG/ML) 0.5% MG/ML) 0.5% } MG/ML) 0.5% blood blood No BID blood glucose glucose glucose test strip test strip test strip n/s n/s n/s Alcohol Alcohol No Alcohol Prep Pads Prep Pads Prep Pads Praluent 75 Praluent 75 No 1{ml} Praluent MG/ML MG/ML 75 MG/ML Levothyroxi Levothyroxi No QD Levothyrox ne Sodium ne Sodium ine Sodium 112 MCG 112 MCG 112 MCG Lancets Lancets No BID Lancets Super Thin Super Thin Super Thin n/s n/s n/s True Metrix True Metrix No True Blood Blood Metrix Glucose Glucose Blood Test - Test - Glucose Test - Lancets Lancets No BID Lancets Super Thin Super Thin Super Thin n/s n/s n/s Folic Acid Folic Acid No Folic Acid 1 MG 1 MG 1 MG Claritin 10 Claritin 10 No 1{table QD Claritin MG MG t} 10 MG Vitamin D Vitamin D No Vitamin D Aspir-81 81 Aspir-81 81 No 1{table QD Aspir-81 MG MG t} 81 MG Lipitor 10 Lipitor 10 No 1{table QD Lipitor 10 MG MG t} MG Glucometer Glucometer No Glucometer n/s n/s n/s Citalopram Citalopram No QD Citalopram Hydrobromid Hydrobromid Hydrobromi e 40MG e 40MG de 40MG [place] Alcohol Alcohol No Alcohol Prep Pads Prep Pads Prep Pads blood blood No BID blood glucose glucose glucose test strip test strip test strip n/s n/s n/s Praluent 75 Praluent 75 No 1{ml} Praluent MG/ML MG/ML 75 MG/ML Levothyroxi Levothyroxi No QD Levothyrox ne Sodium ne Sodium ine Sodium 112 MCG 112 MCG 112 MCG Albuterol Albuterol No 1{ml_as QID Albuterol Sulfate (5 Sulfate (5 _needed Sulfate (5 MG/ML) 0.5% MG/ML) 0.5% } MG/ML) 0.5% True Metrix True Metrix No True Blood Blood Metrix Glucose Glucose Blood Test - Test - Glucose Test - Lancets Lancets No BID Lancets Super Thin Super Thin Super Thin n/s n/s n/s Folic Acid Folic Acid No Folic Acid 1 MG 1 MG 1 MG Claritin 10 Claritin 10 No 1{table QD Claritin MG MG t} 10 MG Vitamin D Vitamin D No Vitamin D Aspir-81 81 Aspir-81 81 No 1{table QD Aspir-81 MG MG t} 81 MG Lipitor 10 Lipitor 10 No 1{table QD Lipitor 10 MG MG t} MG Glucometer Glucometer No Glucometer n/s n/s n/s Citalopram Citalopram No QD Citalopram Hydrobromid Hydrobromid Hydrobromi e 40MG e 40MG de 40MG [place] Alcohol Alcohol No Alcohol Prep Pads Prep Pads Prep Pads blood blood No BID blood glucose glucose glucose test strip test strip test strip n/s n/s n/s Praluent 75 Praluent 75 No 1{ml} Praluent MG/ML MG/ML 75 MG/ML Immunizations Ordered Immunization Filled Immunization Date Status Commen ts Source Name Name Influenza High Dose 2022-03-18 Completed [facility]00 [facility] Influenza High Dose 2022-03-18 Completed [facility] 00:[facility]:00 [facility] Influenza High Dose 2022-03-18 Completed [facility] 00[facility]00:00 [facility] Influenza High Dose 2022-03-18 Completed [facility] 00:00:00 [facility] Influenza High Dose 2022-03-18 Completed [facility] 00:00:00 [facility] Influenza High Dose 2022-03-18 Completed [facility] 00:00:00 [facility] Influenza High Dose 2022-03-18 Completed [facility] 00:00:00 [facility] Influenza High Dose 2022-03-18 Completed [facility] 00[facility]00:00 [facility] Influenza High Dose 2022-03-18 Completed [facility] 00:00:00 [facility] Influenza High Dose 2022-03-18 Completed [facility] 00:00:00 [facility] Influenza High Dose 2022-03-18 Completed [facility] 00:00:00 [facility] Influenza High Dose 2022-03-18 Completed [facility] 00:00:00 [facility] Influenza High Dose 2022-03-18 Completed [facility] 00:00:00 [facility] Influenza High Dose 2022-03-18 Completed [facility] 00:00:00 [facility] Influenza High Dose 2022-03-18 Completed [facility] 00:00:00 [facility] Influenza High Dose 2022-03-18 Completed [facility] 00:00:00 [facility] FLUZONE HIGH DOSE FLUZONE HIGH DOSE 2022-03-17 [facility]pleted [facility] - [facility] OVER 65 09:03:00 [facility] FLUZONE HIGH DOSE FLUZONE HIGH DOSE 2022-03-17 Completed [facility] - OVER 65 OVER 65 09:03:00 [facility] FLUZONE HIGH DOSE FLUZONE HIGH DOSE 2022-03-17 Completed [facility] - OVER 65 OVER 65 09:03:00 [facility] FLUZONE HIGH DOSE FLUZONE HIGH DOSE 2022-03-17 Completed [facility] - OVER 65 OVER 65 09:03:00 [facility] FLUZONE HIGH DOSE FLUZONE HIGH DOSE 2022-03-17 Completed [facility] - OVER 65 OVER 65 09:03:00 [facility] BEBTELOVIMAB 2021-11-26 Completed [facility] BEBTELOVIMAB 2021-11-26 Completed [facility] 00:00:00 [facility] BEBTELOVIMAB 2021-11-26 Completed [facility] 00:00:00 [facility] BEBTELOVIMAB 2021-11-26 Completed [facility] 00:00:00 [facility] BEBTELOVIMAB 2021-11-26 Completed [facility] 00:00:00 [facility] BEBTELOVIMAB 2021-11-26 Completed [facility] 00:00:00 [facility] BEBTELOVIMAB 2021-11-26 Completed [facility] 00:00:00 [facility] BEBTELOVIMAB 2021-11-26 Completed [facility] 00:00:00 [facility] BEBTELOVIMAB 2021-11-26 Completed [facility] 00:00:00 [facility] BEBTELOVIMAB 2021-11-26 Completed [facility] 00:00:00 [facility] BEADALGISAMAB 2021-11-26 Completed [facility] 00:00:00 [facility] BEJUAN RAMONOVIMAB 2021-11-26 Completed [facility] 00:00:00 [facility] BEJUAN RAMONOVIMAB 2021-11-26 Completed [facility] 00:00:00 [facility] BEADALGISAMAB 2021-11-26 Completed [facility] 00:00:00 [facility] BEADALGISAMAB 2021-11-26 Completed [facility] 00:00:00 [facility] BEJUAN RAMONOVIMAB 2021-11-26 Completed [facility] 00:00:00 [facility] BEJUAN RAMONOVIMAB 2021-11-26 Completed [facility] 00:00:00 [facility] BEADALGISAMAB 2021-11-26 Completed [facility] 00:00:00 [facility] TORRESMAB 2021-11-26 Completed [facility] 00:00:00 [facility] BEADALGISAMAB 2021-11-26 Completed [facility] 00:00:00 [facility] BEJUAN RAMONOVIMAB 2021-11-26 Completed [facility] 00:00:00 [facility] BEJUAN RAMONOVIMAB 2021-11-26 Completed [facility] 00:00:00 [facility] BEJUAN RAMONOVIMAB 2021-11-26 Completed [facility] 00:00:00 [facility] BEJUAN RAMONOVIMAB 2021-11-26 Completed [facility] 00:00:00 [facility] BEJUAN RAMONOVIMAB 2021-11-26 Completed [facility] 00:00:00 [facility] SARS-COV-2 COVID-19 2021-04-17 Completed [facility] PFIZER VACCINE 00:00:00 [facility] SARS-COV-2 COVID-19 2021-04-17 Completed [facility] of PFIZER VACCINE 00:00:00 [facility] SARS-COV-2 COVID-19 2021-04-17 Completed [facility] PFIZER VACCINE 00:00:00 [facility] SARS-COV-2 COVID-19 2021-04-17 Completed [facility] PFIZER VACCINE 00:00:00 [facility] SARS-COV-2 COVID-19 2021-04-17 Completed [facility] PFIZER VACCINE 00:00:00 [facility] SARS-COV-2 COVID-19 2021-04-17 Completed [facility] of PFIZER VACCINE 00:00:00 [facility] SARS-COV-2 COVID-19 2021-04-17 Completed [facility] PFIZER VACCINE 00:00:00 [facility] SARS-COV-2 COVID-19 2021-04-17 Completed [facility] of PFIZER VACCINE 00:00:00 [facility] SARS-COV-2 COVID-19 2021-04-17 Completed [facility] of PFIZER VACCINE 00:00:00 [facility] SARS-COV-2 COVID-19 2021-04-17 Completed [facility] of PFIZER VACCINE 00:00:00 [facility] SARS-COV-2 COVID-19 2021-04-17 Completed [facility] of PFIZER VACCINE 00:00:00 [facility] SARS-COV-2 COVID-19 2021-04-17 Completed [facility] of PFIZER VACCINE 00:00:00 [facility] SARS-COV-2 COVID-19 2021-04-17 Completed [facility] of PFIZER VACCINE 00:00:00 [facility] SARS-COV-2 COVID-19 2021-04-17 Completed [facility] of PFIZER VACCINE 00:00:00 [facility] SARS-COV-2 COVID-19 2021-04-17 Completed [facility] of PFIZER VACCINE 00:00:00 [facility] SARS-COV-2 COVID-19 2021-04-17 Completed [facility] of PFIZER VACCINE 00:00:00 [facility] SARS-COV-2 COVID-19 2021-04-17 Completed [facility] PFIZER VACCINE 00:00:00 [facility] SARS-COV-2 COVID-19 2021-04-17 Completed [facility] PFIZER VACCINE 00:00:00 [facility] SARS-COV-2 COVID-19 2021-04-17 Completed [facility] of PFIZER VACCINE 00:00:00 [facility] SARS-COV-2 COVID-19 2021-04-17 Completed [facility] of PFIZER VACCINE 00:00:00 [facility] SARS-COV-2 COVID-19 2021-04-17 Completed [facility] of PFIZER VACCINE 00:00:00 [facility] SARS-COV-2 COVID-19 2021-04-17 Completed [facility] of PFIZER VACCINE 00:00:00 [facility] SARS-COV-2 COVID-19 2021-04-17 Completed [facility] of PFIZER VACCINE 00:00:00 [facility] SARS-COV-2 COVID-19 2021-04-17 Completed [facility] of PFIZER VACCINE 00:00:00 [facility] SARS-COV-2 COVID-19 2021-04-17 Completed [facility] PFIZER VACCINE 00:00:00 [facility] Covid-19 Pfizer 2020-09-24 Completed [facility] SARS-CoV-2 00:00:00 Vaccination SARS-COV-2 COVID-19 2020-09-24 Completed [facility] PFIZER VACCINE 00:00:00 [facility] SARS-COV-2 COVID-19 2020-09-24 Completed [facility] of PFIZER VACCINE 00:00:00 [facility] SARS-COV-2 COVID-19 2020-09-24 Completed [facility] of PFIZER VACCINE 00:00:00 [facility] SARS-COV-2 COVID-19 2020-09-24 Completed [facility] of PFIZER VACCINE 00:00:00 [facility] SARS-COV-2 COVID-19 2020-09-24 Completed [facility] of PFIZER VACCINE 00:00:00 [facility] SARS-COV-2 COVID-19 2020-09-24 Completed [facility] of PFIZER VACCINE 00:00:00 [facility] SARS-COV-2 COVID-19 2020-09-24 Completed [facility] of PFIZER VACCINE 00:00:00 [facility] SARS-COV-2 COVID-19 2020-09-24 Completed [facility] of PFIZER VACCINE 00:00:00 [facility] SARS-COV-2 COVID-19 2020-09-24 Completed [facility] of PFIZER VACCINE 00:00:00 [facility] SARS-COV-2 COVID-19 2020-09-24 Completed [facility] PFIZER VACCINE 00:00:00 [facility] SARS-COV-2 COVID-19 2020-09-24 Completed [facility] of PFIZER VACCINE 00:00:00 [facility] SARS-COV-2 COVID-19 2020-09-24 Completed [facility] of PFIZER VACCINE 00:00:00 [facility] SARS-COV-2 COVID-19 2020-09-24 Completed [facility] of PFIZER VACCINE 00:00:00 [facility] SARS-COV-2 COVID-19 2020-09-24 Completed [facility] of PFIZER VACCINE 00:00:00 [facility] SARS-COV-2 COVID-19 2020-09-24 Completed [facility] of PFIZER VACCINE 00:00:00 [facility] SARS-COV-2 COVID-19 2020-09-24 Completed [facility] PFIZER VACCINE 00:00:00 [facility] SARS-COV-2 COVID-19 2020-09-24 Completed [facility] PFIZER VACCINE 00:00:00 [facility] SARS-COV-2 COVID-19 2020-09-24 Completed [facility] PFIZER VACCINE 00:00:00 [facility] SARS-COV-2 COVID-19 2020-09-24 Completed [facility] PFIZER VACCINE 00:00:00 [facility] SARS-COV-2 COVID-19 2020-09-24 Completed [facility] PFIZER VACCINE 00:00:00 [facility] SARS-COV-2 COVID-19 2020-09-24 Completed [facility] PFIZER VACCINE 00:00:00 [facility] SARS-COV-2 COVID-19 2020-09-24 Completed [facility] PFIZER VACCINE 00:00:00 [facility] SARS-COV-2 COVID-19 2020-09-24 Completed [facility] PFIZER VACCINE 00:00:00 [facility] SARS-COV-2 COVID-19 2020-09-24 Completed [facility] PFIZER VACCINE 00:00:00 [facility] SARS-COV-2 COVID-19 2020-09-24 Completed [facility] PFIZER VACCINE 00:00:00 [facility] COVID-19 Pfizer & 2020-09-24 [facility] (PURPLE-DIL[facility]) COVID-19 Pfizer & 2020-09-24 Completed [facility]:00:00 (PURPLE-DILUTE) COVID-19 Pfizer & 2020-09-24 Completed [facility]:00:00 (PURPLE-DILUTE) COVID-19 Pfizer & 2020-09-24 [facility]pleted [facility]:00:00 (PURPLE-DILUTE) COVID-19 Pfizer & 2020-09-24 Completed [facility]:00:00 (PURPLE-DILUTE) COVID-19 Pfizer & 2020-09-24 Completed [facility]:00:00 (PURPLE-DILUTE) COVID-19 Pfizer & 2020-09-24 Completed [facility]:00:00 (PURPLE-DILUTE) COVID-19 Pfizer & 2020-09-24 Completed [facility]:00:00 (PURPLE-DILUTE) COVID-19 Pfizer & 2020-09-24 Completed [facility]:00:00 (PURPLE-DILUTE) COVID-19 Pfizer & 2020-09-24 Completed [facility] 00:00:00 (PURPLE-DILUTE) COVID-19 Pfizer & 2020-09-24 Completed [facility]:00:00 (PURPLE-DILUTE) COVID-19 Pfizer & 2020-09-24 Completed [facility]:00:00 (PURPLE-DILUTE) COVID-19 Pfizer & 2020-09-24 Completed [facility] 00:00:00 (PURPLE-DILUTE) COVID-19 Pfizer & 2020-09-24 Completed [facility] 00:00:00 (PURPLE-DILUTE) COVID-19 Pfizer & 2020-09-24 Completed [facility]:00:00 (PURPLE-DILUTE) Covid-19 Pfizer 2020-09-03 Completed [facility] SARS-CoV-2 00:00:00 Vaccination SARS-COV-2 COVID-19 2020-09-03 Completed [facility] PFIZER VACCINE 00:00:00 [facility] SARS-COV-2 COVID-19 2020-09-03 Completed [facility] PFIZER VACCINE 00:00:00 [facility] SARS-COV-2 COVID-19 2020-09-03 Completed [facility] PFIZER VACCINE 00:00:00 [facility] SARS-COV-2 COVID-19 2020-09-03 Completed [facility] PFIZER VACCINE 00:00:00 [facility] SARS-COV-2 COVID-19 2020-09-03 Completed [facility] PFIZER VACCINE 00:00:00 [facility] SARS-COV-2 COVID-19 2020-09-03 Completed [facility] PFIZER VACCINE 00:00:00 [facility] SARS-COV-2 COVID-19 2020-09-03 Completed [facility] PFIZER VACCINE 00:00:00 [facility] SARS-COV-2 COVID-19 2020-09-03 Completed [facility] PFIZER VACCINE 00:00:00 [facility] SARS-COV-2 COVID-19 2020-09-03 Completed [facility] PFIZER VACCINE 00:00:00 [facility] SARS-COV-2 COVID-19 2020-09-03 Completed [facility] PFIZER VACCINE 00:00:00 [facility] SARS-COV-2 COVID-19 2020-09-03 Completed [facility] PFIZER VACCINE 00:00:00 [facility] SARS-COV-2 COVID-19 2020-09-03 Completed [facility] PFIZER VACCINE 00:00:00 [facility] SARS-COV-2 COVID-19 2020-09-03 Completed [facility] PFIZER VACCINE 00:00:00 [facility] SARS-COV-2 COVID-19 2020-09-03 Completed [facility] PFIZER VACCINE 00:00:00 [facility] SARS-COV-2 COVID-19 2020-09-03 Completed [facility] PFIZER VACCINE 00:00:00 [facility] SARS-COV-2 COVID-19 2020-09-03 Completed [facility] PFIZER VACCINE 00:00:00 [facility] SARS-COV-2 COVID-19 2020-09-03 Completed [facility] PFIZER VACCINE 00:00:00 [facility] SARS-COV-2 COVID-19 2020-09-03 Completed [facility] PFIZER VACCINE 00:00:00 [facility] SARS-COV-2 COVID-19 2020-09-03 Completed [facility] PFIZER VACCINE 00:00:00 [facility] SARS-COV-2 COVID-19 2020-09-03 Completed [facility] PFIZER VACCINE 00:00:00 [facility] SARS-COV-2 COVID-19 2020-09-03 Completed [facility] PFIZER VACCINE 00:00:00 [facility] SARS-COV-2 COVID-19 2020-09-03 Completed [facility] PFIZER VACCINE 00:00:00 [facility] SARS-COV-2 COVID-19 2020-09-03 Completed [facility] PFIZER VACCINE 00:00:00 [facility] SARS-COV-2 COVID-19 2020-09-03 Completed [facility] PFIZER VACCINE 00:00:00 [facility] SARS-COV-2 COVID-19 2020-09-03 Completed [facility] PFIZER VACCINE 00:00:00 [facility] COVID-19 Pfizer & 2020-09-03 [facility]:00:00 (PURPLE-DILUTE) COVID-19 Pfizer & 2020-09-03 Completed [facility] 00:00:00 (PURPLE-DILUTE) COVID-19 Pfizer 2020-09-03 Completed [facility] 00:00:00 (PURPLE-DILUTE) COVID-19 Pfizer & 2020-09-03 Completed [facility] 00:00:00 (PURPLE-DILUTE) COVID-19 Pfizer 2020-09-03 Completed [facility] 00:00:00 (PURPLE-DILUTE) COVID-19 Pfizer & 2020-09-03 Completed [facility] 00:00:00 (PURPLE-DILUTE) COVID-19 Pfizer & 2020-09-03 Completed [facility] 00:00:00 (PURPLE-DILUTE) COVID-19 Pfizer & 2020-09-03 Completed [facility] 00:00:00 (PURPLE-DILUTE) COVID-19 Pfizer & 2020-09-03 Completed [facility] 00:00:00 (PURPLE-DILUTE) COVID-19 Pfizer & 2020-09-03 Completed [facility] 00:00:00 (PURPLE-DILUTE) COVID-19 Pfizer & 2020-09-03 Completed [facility] 00:00:00 (PURPLE-DILUTE) COVID-19 Pfizer 12 & 2020-09-03 Completed [facility] 00:00:00 (PURPLE-DILUTE) COVID-19 Pfizer & 2020-09-03 Completed [facility] 00:00:00 (PURPLE-DILUTE) COVID-19 Pfizer & 2020-09-03 Completed [facility] 00:00:00 (PURPLE-DILUTE) COVID-19 Pfizer 2020-09-03 Completed [facility] 00:00:00 (PURPLE-DILUTE) Afluria single dose Afluria single dose 2020-02-20 Completed [facility] - 08:33:00 [facility] Afluria single dose Afluria single dose 2020-02-20 Completed [facility] - 08:33:00 [facility] Afluria single dose Afluria single dose 2020-02-20 Completed [facility] - 08:33:00 [facility] Afluria single dose Afluria single dose 2020-02-20 Completed [facility] - 08:33:00 [facility] Afluria single dose Afluria single dose 2020-02-20 Completed [facility] - 08:33:00 [facility] Afluria single dose Afluria single dose 2020-02-20 Completed [facility] - 08:33:00 [facility] Afluria single dose Afluria single dose 2020-02-20 Completed [facility] - 08:33:00 [facility] Afluria single dose Afluria single dose 2020-02-20 Completed [facility] - 08:33:00 [facility] Afluria single dose Afluria single dose 2020-02-20 Completed [facility] - 08:33:00 [facility] Afluria single dose Afluria single dose 2020-02-20 Completed [facility] - 08:33:00 [facility] Afluria single dose Afluria single dose 2020-02-20 Completed [facility] - 08:33:00 [facility] Afluria single dose Afluria single dose 2020-02-20 Completed [facility] - 08:33:00 [facility] Afluria single dose Afluria single dose 2020-02-20 Completed [facility] - 08:33:00 [facility] Afluria single dose Afluria single dose 2020-02-20 Completed [facility] - 08:33:00 [facility] Afluria single dose Afluria single dose 2020-02-20 Completed [facility] - 08:33:00 [facility] Afluria single dose Afluria single dose 2020-02-20 Completed [facility] - 08:33:00 [facility] Afluria single dose Afluria single dose 2020-02-20 Completed [facility] - 08:33:00 [facility] Afluria single dose Afluria single dose 2020-02-20 Completed [facility] - 08:33:00 [facility] Afluria single dose Afluria single dose 2020-02-20 Completed [facility] - 08:33:00 [facility] Afluria single dose Afluria single dose 2020-02-20 Completed [facility] - 08:33:00 [facility] Afluria single dose Afluria single dose 2020-02-20 Completed [facility] - 08:33:00 [facility] Afluria single dose Afluria single dose 2020-02-20 Completed [facility] - 08:33:00 [facility] Afluria single dose Afluria single dose 2020-02-20 Completed [facility] - 08:33:00 [facility] Afluria single dose Afluria single dose 2020-02-20 Completed [facility] - 08:33:00 [facility] Afluria single dose Afluria single dose 2020-02-20 Completed [facility] - 08:33:00 [facility] Afluria single dose Afluria single dose 2020-02-20 Completed [facility] - 08:33:00 [facility] Afluria single dose Afluria single dose 2020-02-20 Completed [facility] - 08:33:00 [facility] Afluria single dose Afluria single dose 2020-02-20 Completed [facility] - 08:33:00 [facility] Afluria single dose Afluria single dose 2020-02-20 Completed [facility] - 08:33:00 [facility] Afluria single dose Afluria single dose 2020-02-20 Completed [facility] - 08:33:00 [facility] Influenza, 2020-02-20 Completed [facility] injectable, 00:00:00 quadrivalent Influenza, 2020-02-20 Completed [facility] injectable, 00:00:00 quadrivalent (afluria, fluzone) Influenza, 2020-02-20 Completed [facility] injectable, 00:00:00 quadrivalent (afluria, fluzone) Influenza, 2020-02-20 Completed [facility] injectable, 00:00:00 quadrivalent (afluria, fluzone) Influenza, 2020-02-20 Completed [facility] injectable, 00:00:00 quadrivalent (afluria, fluzone) Influenza, 2020-02-20 Completed [facility] injectable, 00:00:00 quadrivalent (afluria, fluzone) Influenza, 2020-02-20 Completed [facility] injectable, 00:00:00 quadrivalent (afluria, fluzone) Influenza, 2020-02-20 Completed [facility] injectable, 00:00:00 quadrivalent (afluria, fluzone) Influenza, 2020-02-20 Completed [facility] injectable, 00:00:00 quadrivalent (afluria, fluzone) Influenza, 2020-02-20 Completed [facility] injectable, 00:00:00 quadrivalent (afluria, fluzone) Influenza, 2020-02-20 Completed [facility] injectable, 00:00:00 quadrivalent (afluria, fluzone) Influenza, 2020-02-20 Completed [facility] injectable, 00:00:00 quadrivalent (afluria, fluzone) Influenza, 2020-02-20 Completed [facility] injectable, 00:00:00 quadrivalent (afluria, fluzone) Influenza, 2020-02-20 Completed [facility] injectable, 00:00:00 quadrivalent (afluria, fluzone) Influenza, 2020-02-20 Completed [facility] injectable, 00:00:00 quadrivalent (afluria, fluzone) Influenza, 2020-02-20 Completed [facility] injectable, 00:00:00 quadrivalent (afluria, fluzone) Influenza, 2020-02-13 Completed [facility] 00:00:00 Influenza Virus 2020-02-13 Completed [facility]:00:00 [facility] Influenza Virus 2020-02-13 Completed [facility] Vaccine 00:00:00 [facility] Influenza Virus 2020-02-13 Completed [facility] Vaccine 00:00:00 [facility] Influenza Virus 2020-02-13 Completed [facility] Vaccine 00:00:00 [facility] Influenza Virus 2020-02-13 Completed [facility] Vaccine 00:00:00 [facility] Influenza Virus 2020-02-13 Completed [facility] Vaccine 00:00:00 [facility] Influenza Virus 2020-02-13 Completed [facility] Vaccine 00:00:00 [facility] Influenza Virus 2020-02-13 Completed [facility] Vaccine 00:00:00 [facility] Influenza Virus 2020-02-13 Completed [facility] Vaccine 00:00:00 [facility] Influenza Virus 2020-02-13 Completed [facility] Vaccine 00:00:00 [facility] Influenza Virus 2020-02-13 Completed [facility] Vaccine 00:00:00 [facility] Influenza Virus 2020-02-13 Completed [facility] Vaccine 00:00:00 [facility] Influenza Virus 2020-02-13 Completed [facility] Vaccine 00:00:00 [facility] Influenza Virus 2020-02-13 Completed [facility] Vaccine 00:00:00 [facility] Influenza Virus 2020-02-13 Completed [facility] Vaccine 00:00:00 [facility] Influenza Virus 2020-02-13 Completed [facility] Vaccine 00:00:00 [facility] Influenza Virus 2020-02-13 Completed [facility] Vaccine 00:00:00 [facility] Influenza Virus 2020-02-13 Completed [facility] Vaccine 00:00:00 [facility] Influenza Virus 2020-02-13 Completed [facility] Vaccine 00:00:00 [facility] Influenza Virus 2020-02-13 Completed [facility] Vaccine 00:00:00 [facility] Influenza Virus 2020-02-13 Completed [facility] Vaccine 00:00:00 [facility] Influenza Virus 2020-02-13 Completed [facility] Vaccine 00:00:00 [facility] Influenza Virus 2020-02-13 Completed [facility] Vaccine 00:00:00 [facility] Influenza Virus 2020-02-13 Completed [facility] Vaccine 00:00:00 [facility] Influenza Virus 2020-02-13 Completed [facility] Vaccine 00:00:00 [facility] Influenza, 2020-02-13 Completed [facility] Unspecified 00:00:00 Influenza, 2020-02-13 Completed [facility] Unspecified 00:00:00 Influenza, 2020-02-13 Completed [facility] Unspecified 00:00:00 Influenza, 2020-02-13 Completed [facility] Unspecified 00:00:00 Influenza, 2020-02-13 Completed [facility] Unspecified 00:00:00 Influenza, 2020-02-13 Completed [facility] Unspecified 00:00:00 Influenza, 2020-02-13 Completed [facility]specified 00:00:00 Influenza, 2020-02-13 Completed [facility] Unspecified 00:00:00 Influenza, 2020-02-13 Completed [facility] Unspecified 00:00:00 Influenza, 2020-02-13 Completed [facility] Unspecified 00:00:00 Influenza, 2020-02-13 Completed [facility] Unspecified 00:00:00 Influenza, 2020-02-13 Completed [facility] Unspecified 00:00:00 Influenza, 2020-02-13 Completed [facility] Unspecified 00:00:00 Influenza, 2020-02-13 Completed [facility] Unspecified 00:00:00 Influenza, 2020-02-13 Completed [facility] Unspecified 00:00:00 Nav Chopra 2018-08-18 Completed [facility] - (Triamcinolone) (Triamcinolone) 10:14:00 [facility] Nav Chopra 2018-08-18 Completed [facility] - (Triamcinolone) (Triamcinolone) 10:14:00 [facility] Nav Chopra 2018-08-18 Completed [facility] - (Triamcinolone) (Triamcinolone) 10:14:00 [facility] Nav Chopra 2018-08-18 Completed [facility] - (Triamcinolone) (Triamcinolone) 10:14:00 [facility] Nav Chopra 2018-08-18 Completed [facility] - (Triamcinolone) (Triamcinolone) 10:14:00 [facility] Nav Chopra 2018-08-18 Completed [facility] - (Triamcinolone) (Triamcinolone) 10:14:00 [facility] Nav Chopra 2018-08-18 Completed [facility] - (Triamcinolone) (Triamcinolone) 10:14:00 [facility] Nav Chopra 2018-08-18 Completed [facility] - (Triamcinolone) (Triamcinolone) 10:14:00 [facility] Nav Chopra 2018-08-18 Completed [facility] - (Triamcinolone) (Triamcinolone) 10:14:00 [facility] Nav Chopra 2018-08-18 Completed [facility] - (Triamcinolone) (Triamcinolone) 10:14:00 [facility] Nav Chopra 2018-08-18 Completed [facility] - (Triamcinolone) (Triamcinolone) 10:14:00 [facility] Nav Chopra 2018-08-18 Completed [facility] - (Triamcinolone) (Triamcinolone) 10:14:00 [facility] Nav Chopra 2018-08-18 Completed [facility] - (Triamcinolone) (Triamcinolone) 10:14:00 [facility] Nav Chopra 2018-08-18 Completed [facility] - (Triamcinolone) (Triamcinolone) 10:14:00 [facility] Nav Chopra 2018-08-18 Completed [facility] - (Triamcinolone) (Triamcinolone) 10:14:00 [facility] Nav Chopra 2018-08-18 Completed [facility] - (Triamcinolone) (Triamcinolone) 10:14:00 [facility] Nav Chopra 2018-08-18 Completed [facility] - (Triamcinolone) (Triamcinolone) 10:14:00 [facility] Nav Chopra 2018-08-18 Completed [facility] - (Triamcinolone) (Triamcinolone) 10:14:00 [facility] Nav Chopra 2018-08-18 Completed [facility] - (Triamcinolone) (Triamcinolone) 10:14:00 [facility] Kenalog Kenalog 2018-08-18 Completed [facility] - (Triamcinolone) (Triamcinolone) 10:14:00 [facility] Influenza, seasonal, 2017-02-15 [facility]:00 Influenza Virus 2017-02-15 Completed [facility] Vaccine (3+ yrs) 00:00:00 [facility] Influenza Virus 2017-02-15 Completed [facility] Vaccine (3+ yrs) 00:00:00 [facility] Influenza Virus 2017-02-15 Completed [facility] Vaccine (3+ yrs) 00:00:00 [facility] Influenza Virus 2017-02-15 Completed [facility] Vaccine (3+ yrs) 00:00:00 [facility] Influenza Virus 2017-02-15 Completed [facility] Vaccine (3+ yrs) 00:00:00 [facility] Influenza Virus 2017-02-15 Completed [facility] Vaccine (3+ yrs) 00:00:00 [facility] Influenza Virus 2017-02-15 Completed [facility] Vaccine (3+ yrs) 00:00:00 [facility] Influenza Virus 2017-02-15 Completed [facility] Vaccine (3+ yrs) 00:00:00 [facility] Influenza Virus 2017-02-15 Completed [facility] Vaccine (3+ yrs) 00:00:00 [facility] Influenza Virus 2017-02-15 Completed [facility] Vaccine (3+ yrs) 00:00:00 [facility] Influenza Virus 2017-02-15 Completed [facility] Vaccine (3+ yrs) 00:00:00 [facility] Influenza Virus 2017-02-15 Completed [facility] Vaccine (3+ yrs) 00:00:00 [facility] Influenza Virus 2017-02-15 Completed [facility] Vaccine (3+ yrs) 00:00:00 [facility] Influenza Virus 2017-02-15 Completed [facility] Vaccine (3+ yrs) 00:00:00 [facility] Influenza Virus 2017-02-15 Completed [facility] Vaccine (3+ yrs) 00:00:00 [facility] Influenza Virus 2017-02-15 Completed [facility] Vaccine (3+ yrs) 00:00:00 [facility] Influenza Virus 2017-02-15 Completed [facility] Vaccine (3+ yrs) 00:00:00 [facility] Influenza Virus 2017-02-15 Completed [facility] Vaccine (3+ yrs) 00:00:00 [facility] Influenza Virus 2017-02-15 Completed [facility] Vaccine (3+ yrs) 00:00:00 [facility] Influenza Virus 2017-02-15 Completed [facility] Vaccine (3+ yrs) 00:00:00 [facility] Influenza Virus 2017-02-15 Completed [facility] Vaccine (3+ yrs) 00:00:00 [facility] Influenza Virus 2017-02-15 Completed [facility] Vaccine (3+ yrs) 00:00:00 [facility] Influenza Virus 2017-02-15 Completed [facility] Vaccine (3+ yrs) 00:00:00 [facility] Influenza Virus 2017-02-15 Completed [facility] Vaccine (3+ yrs) 00:00:00 [facility] Influenza Virus 2017-02-15 Completed [facility] Vaccine (3+ yrs) 00:00:00 [facility] Influenza, seasonal, 2017-02-15 [facility]:00 Influenza, seasonal, 2017-02-15 [facility]pleted [facility] 00:00:00 Influenza, seasonal, 2017-02-15 [facility]pleted [facility] 00:00:00 Influenza, seasonal, 2017-02-15 Completed [facility] 00:00:00 Influenza, seasonal, 2017-02-15 Completed [facility] 00:00:00 Influenza, seasonal, 2017-02-15 [facility]pleted [facility] 00:00:00 Influenza, seasonal, 2017-02-15 [facility]pleted [facility] 00:00:00 Influenza, seasonal, 2017-02-15 [facility]pleted [facility] 00:00:00 Influenza, seasonal, 2017-02-15 [facility]pleted [facility] 00:00:00 Influenza, seasonal, 2017-02-15 [facility] 00:00:00 Influenza, seasonal, 2017-02-15 [facility] 00:00:00 Influenza, seasonal, 2017-02-15 [facility]pleted [facility] 00:00:00 Influenza, seasonal, 2017-02-15 [facility] 00:00:00 Influenza, seasonal, 2017-02-15 [facility] 00:00:00 Influenza, seasonal, 2017-02-15 [facility] 00:00:00 pneumococcal 2014-05-23 Completed [facility] 23-valent vaccine 17:08:00 [facility] 2014[facility]05-23 [facility]:00 Influenza, seasonal, 2014-05-23 [facility]:00:00 Pneumococcal 2014-05-23 Completed [facility] Polysaccharide PPV23 00:00:00 Influenza, seasonal, 2014-05-23 [facility]pleted [facility] 00:00:00 Pneumococcal 2014-05-23 Completed [facility] Polysaccharide PPV23 00:00:00 Influenza, seasonal, 2014-05-23 [facility]pleted [facility] 00:00:00 Pneumococcal 2014-05-23 Completed [facility] Polysaccharide PPV23 00:00:00 Influenza, seasonal, 2014-05-23 [facility]pleted [facility] 00:00:00 Pneumococcal 2014-05-23 Completed [facility] Polysaccharide PPV23 00:00:00 Influenza, seasonal, 2014-05-23 [facility]pleted [facility] 00:00:00 Pneumococcal 2014-05-23 Completed [facility] Polysaccharide PPV23 00:00:00 Influenza, seasonal, 2014-05-23 [facility]pleted [facility] 00:00:00 Pneumococcal 2014-05-23 Completed [facility] Polysaccharide PPV23 00:00:00 Influenza, seasonal, 2014-05-23 Completed [facility] 00:00:00 Pneumococcal 2014-05-23 Completed [facility] Polysaccharide PPV23 00:00:00 Influenza, seasonal, 2014-05-23 [facility] 00:00:00 Pneumococcal 2014-05-23 Completed [facility] Polysaccharide PPV23 00:00:00 Influenza, seasonal, 2014-05-23 [facility] 00:00:00 Pneumococcal 2014-05-23 Completed [facility] Polysaccharide PPV23 00:00:00 Influenza, seasonal, 2014-05-23 [facility] injectable 00:[facility]:00 Pneumococcal 2014-05-23 Completed [facility] Polysaccharide PPV23 00:00:00 Influenza, seasonal, 2014-05-23 [facility] injectable 00:00:00 Pneumococcal 2014-05-23 Completed [facility] Polysaccharide PPV23 00:00:00 Influenza, seasonal, 2014-05-23 [facility] injectable 00:00:00 Pneumococcal 2014-05-23 Completed [facility] Polysaccharide PPV23 00:00:00 Influenza, seasonal, 2014-05-23 [facility] injectable 00:00:00 Pneumococcal 2014-05-23 Completed [facility] Polysaccharide PPV23 00:00:00 Influenza, seasonal, 2014-05-23 [facility] injectable 00:00:00 Pneumococcal 2014-05-23 Completed [facility] Polysaccharide PPV23 00:00:00 Influenza, seasonal, 2014-05-23 [facility] inject[facility] 00:00:00 Pneumococcal 2014-05-23 Completed [facility] Polysaccharide PPV23 00:00:00 Influenza, seasonal, 2014-05-23 [facility] injectable 00:00:00 Pneumococcal 2014-05-23 Completed [facility] Polysaccharide PPV23 00:00:00 Vital Signs Vital Name Observation Time Observation Value Comments Source Body height 2022-08-05 13:28:00 154[facility]9 [facility] Body weight 2022-08-05 13:28:00 89[facility]812 [facility] BMI 2022-08-05 13:28:00 37.41 kg/m2 [facility] Body height 2022-07-29 13:37:00 154.9 cm [facility] Body weight 2022-07-29 13:37:00 89.812 [facility] BMI 2022-07-29 13:37:00 37.41 kg/m2 [facility] Body height 2022-07-22 14:26:00 154.9 cm [facility] Body weight 2022-07-22 14:26:00 89.812 [facility] BMI 2022-07-22 14:26:00 37.41 kg/m2 [facility] Body height 2022-07-15 14:27:00 154.9 cm [facility] Body weight 2022-07-15 14:27:00 89.812 [facility] BMI 2022-07-15 14:27:00 37.41 kg/m2 [facility] Body height 2022-06-25 19:04:00 157.5 cm [facility] Body weight 2022-06-25 19:04:00 84.369 [facility] BMI 2022-06-25 19:04:00 34.02 kg/m2 [facility] Systolic blood 2022-06-16 16:53:00 112 mm[Hg] Un[facility] of [facility] Diastolic blood 2022-06-16 16:53:00 70 mm[Hg] Unive rsity of pressure [facility] Heart rate 2022-06-16 16:53:00 88 /min [facility] Body weight 2022-06-16 16:53:00 85.73 kg [facility] BMI 2022-06-16 16:53:00 34[facility]57 [facility] in 2022-06-16 16:53:00 95 /min [facility] Arterial blood by [facility] Pulse oximetry Branch Systolic blood 2022-05-31 20:28:00 120 mm[Hg] [facility] Diastolic blood 2022-05-31 20:28:00 77 mm[Hg] [facility] Heart rate 2022-05-31 20:28:00 88 /min [facility] Body height 2022-05-31 20:28:00 157.5 cm [facility] Body weight 2022-05-31 20:28:00 84.46 kg [facility] BMI 2022-05-31 20:28:00 34.06 kg/m2 [facility] Body height 2022-05-28 14:22:00 157.5 cm [facility] Body weight 2022-05-28 14:22:00 83.915 [facility] BMI 2022-05-28 14:22:00 33.84 kg/m2 [facility] height 2022-05-26 10:40:00 61.00 [in_i] Common [facility] weight 2022-05-26 10:40:00 186.4 [lb_av] [facility] temperature 2022-05-26 10:40:00 97.9 [degF] [facility] bmi 2022-05-26 10:40:00 35.22 kg/m2 Common [facility] p[facility] - [facility] oximetry 2022-05-26 10:40:00 95 % Common S pirit - [facility] respiratory rate 2022-05-26 10:40:00 17 /min Comm on [facility] - [facility] blood pressure 2022-05-26 10:40:00 116 mm[Hg] [facility] - systolic [facility] blood pressure 2022-05-26 10:40:00 60 mm[Hg] [facility] - diastolic [facility] Body height 2022-05-07 14:32:00 157.5 cm [facility] Body weight 2022-05-07 14:32:00 83.915 [facility] BMI 2022-05-07 14:32:00 33.84 kg/m2 [facility] Systolic blood 2022-04-20 15:30:00 126 mm[Hg] [facility] Diastolic blood 2022-04-20 15:30:00 78 mm[Hg] [facility] Heart rate 2022-04-20 15:30:00 86 /min [facility] Respiratory rate 2022-04-20 15:30:00 16 /min [facility] Body weight 2022-04-20 15:30:00 83.915 [facility] BMI 2022-04-20 15:30:00 33.84 kg/m2 [facility] Body height 2022-04-16 14:38:00 157.5 cm [facility] Body weight 2022-04-16 14:38:00 83.462 [facility] BMI 2022-04-16 14:38:00 33.65 kg/m2 [facility] Systolic blood 2022-03-31 15:07:00 124 mm[Hg] Univer sity of pressure [facility] Diastolic blood 2022-03-31 15:07:00 73 mm[Hg] Unive rsity of pressure [facility] Heart rate 2022-03-31 15:07:00 92 /min [facility] Body temperature 2022-03-31 15:07:00 36.39 [place] Univ ersity of [facility] Body height 2022-03-31 15:07:00 157.5 cm Universi [facility] Body weight 2022-03-31 15:07:00 84.505 kg [facility] BMI 2022-03-31 15:07:00 34.07 kg/m2 [facility] Oxygen saturation in 2022-03-31 15:07:00 93 /min University [facility] blood by [facility] Pulse oximetry Branch height 2022-03-17 08:40:00 61.00 [in_i] [facility] weight 2022-03-17 08:40:00 184.5 [lb_av] [facility] temperature 2022-03-17 08:40:00 96.5 [degF] [facility] bmi 2022-03-17 08:40:00 34.86 kg/m2 [facility] oximetry 2022-03-17 08:40:00 95 % [facility] respiratory rate 2022-03-17 08:40:00 16 /min Comm on [facility] blood pressure 2022-03-17 08:40:00 103 mm[Hg] [facility] systolic [facility] blood pressure 2022-03-17 08:40:00 63 mm[Hg] [facility] diastolic [facility] Systolic blood 2022-03-16 16:07:00 133 mm[Hg] [facility] Diastolic blood 2022-03-16 16:07:00 81 mm[Hg] [facility] Heart rate 2022-03-16 16:07:00 86 /min [facility] Body temperature 2022-03-16 16:07:00 36.61 [place] [facility] Respiratory rate 2022-03-16 16:07:00 16 /min [facility] Body height 2022-03-16 16:07:00 157.5 cm [facility] Body weight 2022-03-16 16:07:00 83.553 [facility] BMI 2022-03-16 16:07:00 33.69 kg/m2 [facility] Systolic blood 2022-02-15 15:36:00 111 mm[Hg] [facility] Diastolic blood 2022-02-15 15:36:00 70 mm[Hg] [facility] pressure Heart rate 2022-02-15 15:36:00 85 /min [facility] Body height 2022-02-15 15:36:00 157.5 cm [facility] Body weight 2022-02-15 15:36:00 83.734 kg [facility] BMI 2022-02-15 15:36:00 33.76 kg/m2 [facility] Systolic blood 2022-02-09 14:11:00 139 mm[Hg] Univer sity of [facility] Diastolic blood 2022-02-09 14:11:00 75 mm[Hg] Unive rsity of [facility] Heart rate 2022-02-09 14:01:00 89 /min [facility] Body temperature 2022-02-09 14:01:00 36.44 [place] Univ ersity of [facility] Respiratory rate 2022-02-09 14:01:00 18 /min [facility] Body height 2022-02-09 14:01:00 157.5 cm per pt Universi ty of [facility] Body weight 2022-02-09 14:01:00 83.462 kg [facility] BMI 2022-02-09 14:01:00 33.65 kg/m2 [facility] Oxygen saturation in 2022-02-09 14:01:00 95 /min University Arterial blood by [facility] Pulse oximetry Branch Body height 2022-01-01 15:36:00 157.5 cm [facility] Body weight 2022-01-01 15:36:00 83.915 [facility] BMI 2022-01-01 15:36:00 33.84 kg/m2 [facility] Systolic blood 2021-12-22 19:20:00 127 mm[Hg] Univer [facility] Diastolic blood 2021-12-22 19:20:00 84 mm[Hg] Unive rsity of [facility] Heart rate 2021-12-22 19:20:00 90 /min Universi ty of [facility] Body weight 2021-12-22 19:20:00 84.414 kg [facility] BMI 2021-12-22 19:20:00 34.04 kg/m2 [facility] Oxygen saturation in 2021-12-22 19:20:00 94 /min University Arterial blood by [facility] Pulse oximetry Branch height 2021-12-15 09:00:00 61.00 [in_i] [facility] weight 2021-12-15 09:00:00 185.2 [lb_av] [facility] temperature 2021-12-15 09:00:00 97.9 [degF] [facility] bmi 2021-12-15 09:00:00 34.99 kg/m2 [facility] oximetry 2021-12-15 09:00:00 94 % [facility] respiratory rate 2021-12-15 09:00:00 17 /min [facility] on [facility] blood pressure 2021-12-15 09:00:00 139 mm[Hg] Common [facility] - systolic [facility] blood pressure 2021-12-15 09:00:00 63 mm[Hg] Common [facility] - diastolic [facility] height 2021-10-14 15:10:00 61.00 [in_i] [facility] weight 2021-10-14 15:10:00 175 [lb_av] [facility] bmi 2021-10-14 15:10:00 33.06 kg/m2 [facility] height 2021-10-14 16:50:00 61.00 [in_i] [facility] weight 2021-10-14 16:50:00 175 [lb_av] [facility] temperature 2021-10-14 16:50:00 97.6 [degF] [facility] bmi 2021-10-14 16:50:00 33.06 kg/m2 [facility] blood pressure 2021-10-14 16:50:00 127 mm[Hg] [facility] - systolic [facility] blood pressure 2021-10-14 16:50:00 64 mm[Hg] [facility] - diastolic [facility] height 2021-02-25 08:30:00 61.00 [in_i] Common [facility] p[facility] - [facility] weight 2021-02-25 08:30:00 175 [lb_av] Common S pirit - [facility] temperature 2021-02-25 08:30:00 98 [degF] Common S pirit - [facility] bmi 2021-02-25 08:30:00 33.06 kg/m2 Common S pirit [facility] blood pressure 2021-02-25 08:30:00 127 mm[Hg] Common [facility] - systolic [facility] blood pressure 2021-02-25 08:30:00 68 mm[Hg] [facility] - diastolic [facility] height 2020-12-30 10:30:00 61.00 [in_i] Common S pirit - [facility] weight 2020-12-30 10:30:00 176.6 [lb_av] [facility] temperature 2020-12-30 10:30:00 97.7 [degF] Common S pirit [facility] bmi 2020-12-30 10:30:00 33.36 kg/m2 [facility] S pirit - [facility] oximetry 2020-12-30 10:30:00 94 % Common S pirit - [facility] respiratory rate 2020-12-30 10:30:00 17 /min Comm on Spirit - [facility] blood pressure 2020-12-30 10:30:00 127 mm[Hg] [facility] - systolic [facility] blood pressure 2020-12-30 10:30:00 67 mm[Hg] [facility] - diastolic [facility] height 2020-11-25 08:10:00 61.00 [in_i] Common S pirit - [facility] weight 2020-11-25 08:10:00 172.9 [lb_av] Common [facility] temperature 2020-11-25 08:10:00 97.4 [degF] Common S [facility] bmi 2020-11-25 08:10:00 32.67 kg/m2 Common S [facility] oximetry 2020-11-25 08:10:00 96 % [facility] S [facility] respiratory rate 2020-11-25 08:10:00 16 /min [facility] on [facility] blood pressure 2020-11-25 08:10:00 127 mm[Hg] Common [facility] - systolic [facility] blood pressure 2020-11-25 08:10:00 71 mm[Hg] Common [facility] - diastolic [facility] height 2020-09-23 10:00:00 61.00 [in_i] [facility] weight 2020-09-23 10:00:00 174.0 [lb_av] [facility] temperature 2020-09-23 10:00:00 97.3 [degF] Common [facility] bmi 2020-09-23 10:00:00 32.87 kg/m2 [facility] oximetry 2020-09-23 10:00:00 96 % [facility] respiratory rate 2020-09-23 10:00:00 18 /min Comm on [facility] blood pressure 2020-09-23 10:00:00 111 mm[Hg] Common [facility] - systolic [facility] blood pressure 2020-09-23 10:00:00 68 mm[Hg] Common [facility] - diastolic [facility] height 2020-08-26 08:00:00 61.00 [in_i] [facility] weight 2020-08-26 08:00:00 172.5 [lb_av] [facility] temperature 2020-08-26 08:00:00 97.2 [degF] [facility] bmi 2020-08-26 08:00:00 32.59 kg/m2 Common S pirit - [facility] oximetry 2020-08-26 08:00:00 95 % Common S pirit - [facility] blood pressure 2020-08-26 08:00:00 122 mm[Hg] Common [facility] - systolic [facility] blood pressure 2020-08-26 08:00:00 62 mm[Hg] [facility] - diastolic [facility] height 2020-08-26 08:20:00 61.00 [in_i] Common S [facility] weight 2020-08-26 08:20:00 172.5 [lb_av] [facility] temperature 2020-08-26 08:20:00 97.2 [degF] [facility] bmi 2020-08-26 08:20:00 32.59 kg/m2 [facility] S pirit [facility] oximetry 2020-08-26 08:20:00 95 % [facility] S [facility] respiratory rate 2020-08-26 08:20:00 16 /min Comm on [facility] blood pressure 2020-08-26 08:20:00 122 mm[Hg] [facility] - systolic [facility] blood pressure 2020-08-26 08:20:00 62 mm[Hg] Common [facility] - diastolic [facility] height 2020-05-27 08:00:00 61.00 [in_i] [facility] weight 2020-05-27 08:00:00 179.7 [lb_av] [facility] temperature 2020-05-27 08:00:00 97.0 [degF] Common S pirit [facility] bmi 2020-05-27 08:00:00 33.95 kg/m2 [facility] S [facility] oximetry 2020-05-27 08:00:00 93 % [facility] S [facility] respiratory rate 2020-05-27 08:00:00 17 /min [facility] on [facility] blood pressure 2020-05-27 08:00:00 139 mm[Hg] Common [facility] - systolic [facility] blood pressure 2020-05-27 08:00:00 70 mm[Hg] Common [facility] - diastolic [facility] height 2020-02-20 08:20:00 61.00 [in_i] [facility] weight 2020-02-20 08:20:00 179.7 [lb_av] [facility] temperature 2020-02-20 08:20:00 97.3 [degF] [facility] bmi 2020-02-20 08:20:00 33.95 kg/m2 [facility] S [facility] oximetry 2020-02-20 08:20:00 95 % [facility] respiratory rate 2020-02-20 08:20:00 17 /min [facility] on [facility] blood pressure 2020-02-20 08:20:00 126 mm[Hg] Common [facility] - systolic [facility] blood pressure 2020-02-20 08:20:00 62 mm[Hg] [facility] diastolic [facility] Systolic blood 2022-03-11 16:06:00 118 mm[Hg] [facility] pressure Diastolic blood 2022-03-11 16:06:00 76 mm[facility]Hg[facility] pressure Heart rate 2022-03-11 16:06:00 92 /min [facility] Body height 2022-03-11 16:06:00 157.5 cm [facility] Body weight 2022-03-11 16:06:00 83.462 kg [facility] BMI 2022-03-11 16:06:00 33.65 kg/m2 [facility] Temperature Oral (F) 2020-10-01 16:18:00 98 F [facility] Heart Rate 2020-10-01 16:18:00 [facility] Systolic (mm Hg) 2020-10-01 16:18:00 Jaylan ria [facility] Diastolic (mm Hg) 2020-10-01 16:18:00 Mem [facility] [place] Temperature Oral (F) 2020-10-01 12:22:00 97.9 F [facility] Heart Rate 2020-10-01 12:22:00 [facility] [place] Systolic (mm Hg) 2020-10-01 12:22:00 Jaylan [facility] [place] Diastolic (mm Hg) 2020-10-01 12:22:00 Mem [facility] Respitory Rate 2020-10-01 12:22:00 [facility] [place] Temperature Oral (F) 2020-10-01 09:00:00 97.9 F [facility] Heart Rate 2020-10-01 09:00:00 [facility] [place] Respitory Rate 2020-10-01 09:00:00 [facility] [place] Systolic (mm Hg) 2020-10-01 09:00:00 Jaylan rial [place] Diastolic (mm Hg) 2020-10-01 09:00:00 Mem [facility] [place] Respitory Rate 2020-10-01 05:00:00 [facility] [place] Height 2020-09-18 14:54:00 157.48 cm [facility] Weight 2020-09-18 14:54:00 [facility] [place] BMI Calculated 2020-09-18 14:54:00 [facility] [place] Respitory Rate 2020-07-21 14:55:00 [facility] [place] Systolic (mm Hg) 2020-07-21 14:55:00 Jaylan rial [place] Diastolic (mm Hg) 2020-07-21 14:55:00 [facility] [place] Respitory Rate 2020-07-21 14:40:00 [facility] [place] Systolic (mm Hg) 2020-07-21 14:40:00 Jaylan rial [place] Diastolic (mm Hg) 2020-07-21 14:40:00 [facility] [place] Respitory Rate 2020-07-21 14:25:00 [facility] [place] Systolic (mm Hg) 2020-07-21 14:25:00 Jaylan [facility] [place] Diastolic (mm Hg) 2020-07-21 14:25:00 [facility] [place] Height 2020-07-14 18:36:00 157.48 cm [facility] [place] Weight 2020-07-14 18:36:00 [facility] BMI Calculated 2020-07-14 18:36:00 [facility] [place] Respitory Rate 2020-04-28 19:30:00 [facility] [place] Systolic (mm Hg) 2020-04-28 19:30:00 Jaylan [facility] [place] Diastolic (mm Hg) 2020-04-28 19:30:00 Mem [facility] [place] Temperature Oral (F) 2020-04-28 19:30:00 97.7 F [facility] [place] Heart Rate 2020-04-28 19:30:00 [facility] Respitory Rate 2020-04-28 19:00:00 [facility] [place] Systolic (mm Hg) 2020-04-28 19:00:00 Jaylan rial [place] Diastolic (mm Hg) 2020-04-28 19:00:00 [facility] [place] Respitory Rate 2020-04-28 18:45:00 [facility] [place] Systolic (mm Hg) 2020-04-28 18:45:00 Jaylan [facility] [place] Diastolic (mm Hg) 2020-04-28 18:45:00 [facility] [place] Weight 2020-04-28 13:52:00 [facility] [place] BMI Calculated 2020-04-28 13:52:00 [facility] [place] Height 2020-04-24 15:50:00 153.92 cm [facility] Weight 2020-04-24 15:50:00 [facility] BMI Calculated 2020-04-24 15:50:00 [facility] [place] Temperature Oral (F) 2020-04-24 15:50:00 98.0 F [facility] [place] Heart Rate 2020-04-24 15:50:00 [facility] [place] Respitory Rate 2020-04-24 15:50:00 [facility] [place] Systolic (mm Hg) 2020-04-24 15:50:00 Jaylan rial [place] Diastolic (mm Hg) 2020-04-24 15:50:00 Mem [facility] [place] Height 2020-04-23 16:08:00 157.48 cm [facility] Weight 2020-04-23 16:08:00 [facility] BMI Calculated 2020-04-23 16:08:00 [facility] [place] Temperature Oral (F) 2019-10-31 21:00:00 97.9 F [facility] [place] Heart Rate 2019-10-31 21:00:00 [facility] Systolic (mm Hg) 2019-10-31 21:00:00 Jaylan rial [place] Diastolic (mm Hg) 2019-10-31 21:00:00 Mem [facility] [place] Heart Rate 2019-10-31 18:29:00 [facility] [place] Systolic (mm Hg) 2019-10-31 18:29:00 Jaylan [facility] [place] Diastolic (mm Hg) 2019-10-31 18:29:00 [facility] [place] Temperature Oral (F) 2019-10-31 17:00:00 98.1 F [facility] Heart Rate 2019-10-31 17:00:00 [facility] Systolic (mm Hg) 2019-10-31 17:00:00 Jaylan [facility] [place] Diastolic (mm Hg) 2019-10-31 17:00:00 Mem [facility] [place] Temperature Oral (F) 2019-10-31 12:00:00 98.3 F [facility] [place] Respitory Rate 2019-10-31 09:15:00 [facility] [place] Respitory Rate 2019-10-31 05:05:00 [facility] [place] Height 2019-10-31 02:00:00 154.94 cm [facility] [place] Weight 2019-10-31 02:00:00 [facility] [place] BMI Calculated 2019-10-31 02:00:00 [facility] [place] Respitory Rate 2019-10-31 01:45:00 [facility] [place] Height 2019-10-25 17:51:00 154.94 cm [facility] Weight 2019-10-25 17:51:00 [facility] [place] BMI Calculated 2019-10-25 17:51:00 [facility] [place] Height 2019-10-25 17:22:00 154.94 cm [facility] [place] Weight 2019-10-25 17:22:00 [facility] BMI Calculated 2019-10-25 17:22:00 [facility] [place] Systolic (mm Hg) 2017-06-09 18:31:00 Jaylan rial [place] Diastolic (mm Hg) 2017-06-09 18:31:00 Mem [facility] [place] Respitory Rate 2017-06-09 18:31:00 [facility] [place] Heart Rate 2017-06-09 18:31:00 [facility] [place] Temperature Oral (F) 2017-06-09 18:31:00 97.2 F [facility] [place] Temperature Oral (F) 2017-06-09 14:43:00 97.7 F [facility] Heart Rate 2017-06-09 14:43:00 [facility] Systolic (mm Hg) 2017-06-09 14:43:00 Jaylan rial [place] Diastolic (mm Hg) 2017-06-09 14:43:00 [facility] [place] Respitory Rate 2017-06-09 14:43:00 [facility] [place] Heart Rate 2017-06-09 10:00:00 [facility] Systolic (mm Hg) 2017-06-09 10:00:00 Jaylan rial [place] Diastolic (mm Hg) 2017-06-09 10:00:00 [facility] [place] Temperature Oral (F) 2017-06-09 10:00:00 97.9 F [facility] [place] Respitory Rate 2017-06-09 10:00:00 [facility] [place] Weight 2017-06-08 20:58:00 [facility] BMI Calculated 2017-06-08 20:58:00 [facility] [place] Height 2017-06-08 20:58:00 154.94 cm [facility] [place] Weight 2017-06-03 16:22:00 [facility] BMI Calculated 2017-06-03 16:22:00 [facility] [place] Height 2017-06-03 16:22:00 154.94 cm [facility] [place] Height 2017-06-01 19:29:00 154.94 cm [facility] Weight 2017-06-01 19:29:00 [facility] [place] BMI Calculated 2017-06-01 19:29:00 [facility] [place] Systolic (mm Hg) 2014-05-23 13:45:00 Jaylan [facility] [place] Respitory Rate 2014-05-23 13:45:00 [facility] [place] Diastolic (mm Hg) 2014-05-23 13:45:00 [facility] [place] Temperature Oral (F) 2014-05-23 13:45:00 97.5 F [facility] Heart Rate 2014-05-23 13:45:00 [facility] Systolic (mm Hg) 2014-05-23 10:00:00 Jaylan [facility] [place] Diastolic (mm Hg) 2014-05-23 10:00:00 [facility] [place] Heart Rate 2014-05-23 10:00:00 [facility] [place] Respitory Rate 2014-05-23 10:00:00 [facility] [place] Temperature Oral (F) 2014-05-23 10:00:00 98.0 F [facility] Temperature Oral (F) 2014-05-23 06:00:00 98.0 F [facility] [place] Systolic (mm Hg) 2014-05-23 06:00:00 Jaylan rial [place] Respitory Rate 2014-05-23 06:00:00 [facility] Heart Rate 2014-05-23 06:00:00 [facility] Diastolic (mm Hg) 2014-05-23 06:00:00 [facility] [place] BMI Calculated 2014-05-14 16:50:00 [facility] [place] Weight 2014-05-14 16:50:00 [facility] Height 2014-05-14 16:50:00 157.48 cm [facility] Weight 2014-05-14 16:30:00 [facility] Height 2014-05-14 16:30:00 157.48 cm [facility] [place] BMI Calculated 2014-05-14 16:30:00 [facility] [place] Diastolic (mm Hg) 2014-04-22 18:30:00 [facility] [place] Respitory Rate 2014-04-22 18:30:00 [facility] [place] Systolic (mm Hg) 2014-04-22 18:30:00 Jaylan [facility] [place] Systolic (mm Hg) 2014-04-22 18:00:00 Jaylan rial [place] Respitory Rate 2014-04-22 18:00:00 [facility] [place] Diastolic (mm Hg) 2014-04-22 18:00:00 [facility] [place] Systolic (mm Hg) 2014-04-22 17:45:00 Jaylan rial [place] Diastolic (mm Hg) 2014-04-22 17:45:00 [facility] Respitory Rate 2014-04-22 17:45:00 [facility] [place] Heart Rate 2014-04-22 16:23:00 [facility] Procedures Procedure Date / Time Performing Clinician Source Performed POCT HEMOGLOBIN A1C TEST 2022-06-16 17:01:00 Roro Goff [facility] INSURANCE CORRESPONDENCE 2022-06-14 06:01:00 Doctor Unassigned, [facility] MEDICAL RELEASE/CLEARANCE 2022-05-20 06:01:00 Doctor Unassigned, [facility] [place] [facility] ASSIGNMENT OF BENEFITS 2022-03-31 14:45:40 Doctor Unass[facility], [facility] [place] [facility] [place] PANCREATIC ELASTASE, FECAL 2022-02-17 13:29:00 Mckenzie Johnson [facility] HELICOBACTER PYLORI AG, 2022-02-17 13:29:00 Agnes Saunders [facility] ealth EIA, STOOL [place] ARTHROCENTESIS ASP/INJ 2022-01-01 16:07:07 Chon Person [facility] MAJOR JOINT/BURSA W/OUT US DEXA AXIAL (HIP AND SPINE) 2021-12-30 14:43:44 Jagjit Gutierrez [facility] POCT HEMOGLOBIN A1C TEST 2021-12-22 19:32:[address] [facility] SCANNED LAB RESULTS 2021-12-11 05:01:00 Doctor Unassigned, [facility] [place] [facility] Procedure<sup>7</sup> [facility] ermann Shoulder joint [facility] Frandy operations<sup>7</sup> [facility] release<sup>1</sup> [facility]<sup>2</sup> [facility] Elbow joint [facility] Frandy operations<sup>3</sup> Foot [facility] [place] fasciectomy<sup>4</sup> Foot joint [facility] [place] operations<sup>5</sup> Hysterectomy [facility] Frandy Knee joint [facility] [place] operation<sup>6</sup> Christine fundoplication [facility] ermann Plantar fasciotomy [facility] kash Laminectomy [facility] Cervical spinal fusion by Negro diehl Frandy anterior technique Plan of Care Planned Activity Planned Date Details Comments Source Future Scheduled 2022-08-18 Hepatitis C screening [facility] Test 19:08:45 (procedure) [code = 049408236] Future Scheduled 2022-08-18 Screening for [facility] Test 19:08:45 malignant neoplasm of cervix (procedure) [code = 774444484] Future Scheduled 2022-08-18 BREAST CANCER [facility] Test 19:08:45 SCREENING [code = BREAST CANCER SCREENING] Future Scheduled 2022-08-18 COLONOSCOPY SCREENING [facility] Test 19:08:45 [code = COLONOSCOPY SCREENING] Future Scheduled 2022-08-18 SHINGLES VACCINES (1 Met [facility] Test 19:08:45 of 2) [code = SHINGLES VACCINES (1 of 2)] Future Scheduled 2022-08-18 65+ [facility]CCAL [facility] Test 19:08:45 VACCINE (2 - PCV) [code = 65+ PNEUMOCOCCAL VACCINE (2 - PCV)] Future Scheduled 2022-08-18 HEPATITIS B VACCINES Met [facility] Test 19:08:45 (1 of 3 - Risk 3-dose series) [code = HEPATITIS B VACCINES (1 of 3 - Risk 3-dose series)] Future Scheduled 2022-08-18 COVID-19 VACCINE (5 - [facility] Test 19:08:45 Booster for Pfizer series) [code = COVID-19 VACCINE (5 - Booster for Pfizer series)] Future Scheduled 2022-08-18 INFLUENZA VACCINE [facility] Test 19:08:45 [code = INFLUENZA VACCINE] Future Scheduled 2021-10-16 COVID-19 VACCINE (4 [facility] Test 00:00:00 Booster for Pfizer Medical C enter series) [code = COVID-19 VACCINE (4 - Booster for Pfizer series)] Future Scheduled 2021-10-16 COVID-19 VACCINE (4 - [facility] Test 00:00:00 Booster for Pfizer Medical C enter series) [code = COVID-19 VACCINE (4 - Booster for Pfizer series)] Future Scheduled 2021-06-16 COVID-19 VACCINE (1) Met [facility] Test 13:49:26 [code = COVID-19 VACCINE (1)] Future Scheduled 2021-06-16 Hepatitis C screening [facility] Test 13:49:26 (procedure) [code = 034859045] Future Scheduled 2021-06-16 Screening for [facility] Test 13:49:26 malignant neoplasm of cervix (procedure) [code = 628472507] Future Scheduled 2021-06-16 BREAST CANCER [facility] Test 13:49:26 SCREENING [code = BREAST CANCER SCREENING] Future Scheduled 2021-06-16 COLONOSCOPY SCREENING [facility] Test 13:49:26 [code = COLONOSCOPY SCREENING] Future Scheduled 2021-06-16 SHINGLES VACCINES (#1) [facility] Test 13:49:26 [code = SHINGLES VACCINES (#1)] Future Scheduled 2021-06-16 INFLUENZA VACCINE [facility] Test 13:49:26 [code = INFLUENZA VACCINE] Future Scheduled 2021-06-16 COVID-19 VACCINE (1) Met [facility] Test 13:49:26 [code = COVID-19 VACCINE (1)] Future Scheduled 2021-06-16 Hepatitis C screening [facility] Test 13:49:26 (procedure) [code = 625675407] Future Scheduled 2021-06-16 Screening for [facility] Test 13:49:26 malignant neoplasm of cervix (procedure) [code = 340102290] Future Scheduled 2021-06-16 BREAST CANCER [facility] Test 13:49:26 SCREENING [code = BREAST CANCER SCREENING] Future Scheduled 2021-06-16 COLONOSCOPY SCREENING [facility] Test 13:49:26 [code = COLONOSCOPY SCREENING] Future Scheduled 2021-06-16 SHINGLES VACCINES (#1) [facility] Test 13:49:26 [code = SHINGLES VACCINES (#1)] Future Scheduled 2021-06-16 INFLUENZA VACCINE [facility] Test 13:49:26 [code = INFLUENZA VACCINE] Future Scheduled 2021-05-[address] [facility] Test 00:00:00 (12+) [code = Medical Center DEPRESSION SCREENING (12+)] Future Scheduled 2021-05-[address] [facility] Test 00:00:00 (12+) [code = Medical Center DEPRESSION SCREENING (12+)] Future Scheduled 2021-01-14 INFLUENZA VACCINE (#1) [facility] Test 00:00:00 [code = INFLUENZA Medical Ce nter VACCINE (#1)] Future Scheduled 2021-01-14 INFLUENZA VACCINE (#1) [facility] Test 00:00:00 [code = INFLUENZA Medical Ce nter VACCINE (#1)] Future Scheduled 2020-01-15 INFLUENZA VACCINE (#1) [facility] Test 00:00:00 [code = INFLUENZA Medical Ce nter VACCINE (#1)] Future Scheduled 2019-05-[address] [facility] Test 00:00:00 0-64 YRS (2 of 4 - Medical C enter PPSV23) [code = PNEUMOCOCCAL VACCINE 0-64 YRS (2 of 4 - PPSV23)] Future Scheduled 2019-05-[address] [facility] Test 00:00:00 0-64 YRS (2 of 4 - Medical C enter PPSV23) [code = PNEUMOCOCCAL VACCINE 0-64 YRS (2 of 4 - PPSV23)] Future Scheduled 2015-02-[address] [facility] Test 00:00:00 WELLNESS (YEAR 2 or Medical Center FIRST YEAR if no IPPE) [code = MEDICARE ANNUAL WELLNESS (YEAR 2 or FIRST YEAR if no IPPE)] Future Scheduled 2015-02-[address] [facility] Test 00:00:00 WELLNESS (YEAR 2 or Medical Center FIRST YEAR if no IPPE) [code = MEDICARE ANNUAL WELLNESS (YEAR 2 or FIRST YEAR if no IPPE)] Future Scheduled 2015-02-[address] [facility] Test 00:00:00 WELLNESS (YEAR 2 or Medical Center FIRST YEAR if no IPPE) [code = MEDICARE ANNUAL WELLNESS (YEAR 2 or FIRST YEAR if no IPPE)] Future Scheduled 2006 SHINGLES VACCINES ([address] [facility] Test 00:00:00 of 2) [code = SHINGLES Medic al Center VACCINES (1 of 2)] Future Scheduled 2006 SHINGLES VACCINES ([address] [facility] Test 00:00:00 of 2) [code = SHINGLES Medic al Center VACCINES (1 of 2)] Future Scheduled [address] [facility] Test 00:00:00 (procedure) [code = [facility] [id number]] Future Scheduled [address] [facility] Test 00:00:00 (procedure) [code = [facility] 10776290] Future Scheduled [address] [facility] Test 00:00:00 (procedure) [code = [facility] 79972400] Future Scheduled [address] [facility] Test 00:00:00 malignant neoplasm of Medica l Center cervix (procedure) [code = 967260100] Future Scheduled [address] [facility] Test 00:00:00 malignant neoplasm of Medica l Center cervix (procedure) [code = 154463189] Future Scheduled [address] [facility] Test 00:00:00 malignant neoplasm of Medica l Center cervix (procedure) [code = 978691757] Future Scheduled 1975-10-24 DTAP/TDAP/TD VACCINES [facility] Test 00:00:00 (1 - Tdap) [code = Medical C enter DTAP/TDAP/TD VACCINES (1 - Tdap)] Future Scheduled 1975-10-24 DTAP/TDAP/TD VACCINES [facility] Test 00:00:00 (1 - Tdap) [code = Medical C enter DTAP/TDAP/TD VACCINES (1 - Tdap)] Future Scheduled 1974 HEPATITIS C SCRE[facility]ING [facility] Test 00:00:00 [code = HEPATITIS C Medical Center SCREENING] Future Scheduled 1974 HEPATITIS C [facility]CRE[facility]ING [facility] Test 00:00:00 [code = HEPATITIS C Medical Center SCREENING] Future Scheduled [address] [facility] Test 00:00:00 0-64 YRS (1 of 3 - Medical C enter PCV13) [code = PNEUMOCOCCAL VACCINE 0-64 YRS (1 of 3 - PCV13)] Future Scheduled [address] [facility] Test 00:00:00 malignant neoplasm of Medica l Center breast (procedure) [code = 624260438] Future Scheduled [address] [facility] Test 00:00:00 malignant neoplasm of Medica l Center colon (procedure) [code = 510683086] Future Scheduled [address] [facility] Test 00:00:00 malignant neoplasm of Medica l Center breast (procedure) [code = 417260608] Future Scheduled [address] [facility] Test 00:00:00 malignant neoplasm of Medica l Center colon (procedure) [code = 747349971] Future Scheduled [address] [facility] Test 00:00:00 malignant neoplasm of Medica l Center breast (procedure) [code = 225143780] Future Scheduled [address] [facility] Test 00:00:00 malignant neoplasm of Medica l Center colon (procedure) [code = 300048084] Future Scheduled DIABETES: RETINAL EYE [facility] Test EXAM [code = DIABETES: RETINAL EYE EXAM] Future Scheduled DIABETIC FOOT EXAM [facility] Test [code = DIABETIC FOOT EXAM] Future Scheduled URINE MICROALBUMIN [facility] Test [code = URINE MICROALBUMIN] Future Scheduled COVID-19 [facility]ACCINE (1[facility] [code = COVID-19 VACCINE (1)] Future Scheduled [facility] (procedure) [code = 057066444] Future Scheduled [facility] Test malignant neoplasm of cervix (procedure) [code = 919003857] Future Scheduled BREAST CANCER [facility] Test SCREENING [code = BREAST CANCER SCREENING] Future Scheduled COLONOSCOPY [facility] [code = COLONOSCOPY SCREENING] Future Scheduled SHINGLES VACCINES (#[facility]) [facility] [code = SHINGLES VACCINES (#1)] Future Scheduled [facility] [code = INFLUENZA VACCINE] Future Scheduled DIABETES: RETINAL EYE [facility] (procedure) [code = 691214991] Future Scheduled [facility] Test malignant neoplasm of cervix (procedure) [code = 690392306] Future Scheduled BREAST CANCER [facility] Test SCREENING [code = BREAST CANCER [...] Date/Time Type Type Clinicians Facility Department ID 2022-08-24 Outpatient Serrano, STLMLC [facility] [id number] Common 09:09:00 [facility] [address]162 [facility] 2022-08-19 Outpatient Serrano, STLMLC [facility] [id number] Common 16:47:00 [facility] 60955 [facility] 2022-08-06 Outpatient [facility] [id number] [place] 01:28:18 [id number] [facility] 2022-08-05 Outpatient [facility] [id number] [place] 16:40:[id number] [place] [address] 2022-07-16 Outpatient [facility] [id number] [place] 08:21:57 [id number] [facility] 2022-07-14 Outpatient [facility] [id number] UT 15:54:33 [id number] [facility] 2022-07-01 Outpatient [facility] [id number] [place] 09:08:19 [id number] [facility] 2022-06-30 Outpatient [facility] [id number] [place] 14:28:59 [id number] [facility] 2022-06-26 Outpatient [facility] [id number] [place] 01:28:15 [id number] [facility] 2022-06-25 Outpatient [facility] [id number] UT 17:04:37 [id number] [facility] 2022-06-21 Outpatient [facility] [id number] [place] 16:08:53 [id number] [facility] 2022-06-09 Outpatient [facility] [id number] UT 15:10:25 [id number] [facility] 2022-06-01 Outpatient [facility] [id number] UT 10:57:18 [id number] [facility] 2022-05-31 Outpatient [facility] [id number] UT 14:19:53 [id number] [facility] 2022-05-28 Outpatient [facility] [id number] [place] 08:18:11 [id number] [facility] 2022-05-25 Outpatient Serrano, STLMLC [facility] [id number] Common 10:35:01 [facility] [address]8935 [facility] 2022-05-24 Outpatient [facility] [id number] [place] 14:46:12 [id number] [facility] 2022-05-24 Outpatient Serrano, STLMLC [facility] [id number] Common 07:52:00 [facility] [address]388 [facility] 2022-05-20 Outpatient [facility] [id number] UT 14:31:54 [id number] [facility] 2022-05-17 Outpatient [facility] [id number] UT 10:05:12 [id number] [facility] 2022-05-07 Outpatient [facility] [id number] UT 09:29:22 [id number] [facility] 2022-05-05 Outpatient [facility] [id number] UT 09:34:59 [id number] [facility] 2022-04-29 Outpatient [facility] [id number] UT 14:46:02 [id number] [facility] 2022-04-16 Outpatient [facility] [id number] UT 09:58:54 [id number] [facility] 2022-04-12 Outpatient Serrano, STLMLC [facility] [id number] Common 11:51:00 [facility] [address]498 [facility] 2022-04-08 Outpatient [facility] [id number] UT 09:57:13 [id number] [facility] 2022-03-22 Outpatient [facility] [id number] UT 13:28:40 [id number] [facility] 2022-03-15 Outpatient Serrano, STLMLC ST[facility] [id number] Common 10:54:00 [facility] 70563 [facility] 2021-07-03 Outpatient [facility] [id number] [place] 08:07:51 [facility] 2021-06-24 Outpatient [facility] [id number] [place] 08:25:55 [facility] 2021-06-10 Outpatient Serrano, STLMLC [facility] [id number] Common 13:18:34 [facility] 04053 [facility] 2021-06-10 Outpatient Serrano, STLMLC [facility] [id number] Common 13:01:45 Gus 68364 [facility] 2021-06-10 Outpatient Serrano, STLMLC [facility] [id number] Common 12:49:31 [facility] 27069 [facility] 2021-06-10 Outpatient Serrano, STLMLC ST[facility]C [id number] Common 12:19:51 Gus 27744 [facility] 2021-06-10 Outpatient Serrano, STLMLC ST[facility]C [id number] Common 12:17:48 Gus 98743 [facility] 2021-06-10 Outpatient Serrano, STLMLC ST[facility]C [id number] Common 11:26:00 Gus [id number] [facility] 2021-06-10 Outpatient Serrano, STLMLC [facility] [id number] Common 11:18:49 Gus 62312 [facility] 2021-06-10 Outpatient Serrano, STLMLC ST[facility] [id number] Common 11:17:22 [facility] [address]324 [facility] 2021-06-10 Outpatient DULCE MARIA Serrano [facility] Common 11:14:27 [facility] 89004 [facility] 2021-04-22 Outpatient [facility] [id number] [place] 08:35:28 Health 2021-04-03 Outpatient [facility] [id number] UT 13:44:42 Health 2021-01-01 Outpatient RAZA, [facility] [id number] UT 10:47:25 CHON [facility] 2020-11-13 Outpatient RAZA, [facility] [id number] [place] 09:44:37 CHON [facility] 2020-11-13 Outpatient [facility] [id number] [place] 09:15:45 Health 2020-11-13 Outpatient [facility] [id number] [place] 09:15:44 [facility] 2020-10-31 Outpatient RAZA, [facility] [id number] [place] 01:03:[facility] Inpatient RAZA, MHSE MHSE [id number] 11:23:[address] [facility] 2019-10-24 Inpatient RAZA, MHSE MHSE [id number] MH 08:08:[address] [facility] 2019-09-03 Outpatient ELIZABETH, [facility] [id number] [facility] 10:11:05 [facility] 2022-10-26 2022-10-26 Outpatient Viridiana GUTIERREZ [facility] [id number] Univers 13:30:00 13:30:00 [facility] 2022-10-04 2022-10-04 Outpatient ELIZABETH, [facility] [id number] [place] 08:20:00 08:20:00 [facility] 2022-09-21 2022-09-21 Outpatient Viridiana FUCHS [facility] [id number] Univers 09:30:00 09:30:00 [facility] 2022-09-21 2022-09-21 Outpatient Viridiana FUCHS [facility] [id number] Univers 09:30:00 09:30:00 [facility] 2022-09-21 2022-09-21 Outpatient R FUCHS, [facility] [id number] Univers 09:30:00 09:30:00 SENDIL [facility] 2022-09-16 2022-09-16 Outpatient RAZA, [facility] [id number] UT 09:45:00 09:45:00 CHON [facility] 2022-09-07 2022-09-07 Outpatient R GUANACO MURRAY [facility] U [facility] [id number] Univers 09:00:00 09:00:00 GUANACO MURRAY [facility] 2022-08-03 2022-09-01 Outpatient Raza, 2.16.840. 2.16.840.1. 3 [id number] 10:47:00 23:59:00 Chon Viramontes [id number]. [id number] 3.615.38 5.38 2022-08-03 2022-09-01 Outpatient Raza, 2.16.840. 2.16.840.1. 3 [id number] 10:47:00 23:59:00 Chon Viramontes 1.153421. [id number] 01 3.615.38 5.38 2022-08-17 2022-08-17 Telephone PollackHEATHER [id number] Univers 00:00:00 00:00:00 Marcy ZEPEDA 350.1.13.10 i ty of [place] 4.2.7.2.686 Laverne candelario [id number] [address] 2022-08-05 2022-08-05 Outpatient [facility] [id number] [place] 08:50:00 09:23:30 [facility] 2022-08-05 2022-08-05 Outpatient [facility] [id number] UT 08:45:00 09:23:15 [facility] 2022-08-05 2022-08-05 Office Raza [facility] 1.2.840.114 [id number] UT 08:45:00 09:20:11 Visit Chon MANDUJANO 350.1.13.58 H [facility] 9.2.7.2.686 PLAZA 5 [id number] 5 2022-07-02 2022-07-31 Outpatient Raza, 2.16.840. 2.16.840.1. 3 [id number] 15:25:00 23:59:00 Chon Viramontes [id number]. [id number] 00 3.615.38 5.38 2022-07-02 2022-07-31 Outpatient Raza, 2.16.840. 2.16.840.1. 3 [id number] 15:25:00 23:59:00 Chon Viramontes 1.463506. [id number] 00 3.615.38 5.38 2022-07-31 2022-07-31 Refill JESSICA Gutierrez 1.2.840.114 [id number] Univers 00:00:00 [facility].13.10 [facility] 4.2.7.2.686 [facility] [id number] [address] DIABETES CLINIC 2022-07-29 2022-07-29 Office JODI Person [facility] 1.2.840.114 [id number] [place] 08:45:00 09:04:06 Visit [facility] 350.1.13.58 H [facility] MEDICAL 9.2.7.2.686 PLAZA 5 [id number] 5 2022-07-22 2022-07-22 Office Raza [facility] 1.2.840.114 [id number] UT 08:45:00 08:56:05 Visit Chon [facility] 350.1.13.58 H [facility] MEDICAL 9.2.7.2.686 PLAZA 1 [id number] 5 2022-07-15 2022-07-15 Office Raza [facility] 1.2.840.114 [id number] UT 09:45:00 09:45:00 Visit Chon [facility] 350.1.13.58 H [facility] MEDICAL 9.2.7.2.686 PLAZA 1 [id number] 5 2022-06-28 2022-06-30 [id number] 05:30:00 16:15:[address] [facility] 2022-06-28 2022-06-30 Outpatient Raza, MHSE MHSE [id number] 05:30:00 16:15:00 Chon Viramontes 16 2022-06-28 2022-06-30 Outpatient Raza, MHSE MHSE [id number] 05:30:00 16:15:00 Chon Viramontes 16 2022-06-28 2022-06-28 Outpatient Raza, MHSE MHSE [id number] 05:30:00 05:30:00 Chon Viramontes 16 2022-06-28 2022-06-28 Outpatient Raza, MHSE MHSE [id number] 05:30:00 05:30:00 Chon Viramontes 16 2022-06-25 2022-06-25 Office Raza, [facility] 1.2.840.114 [id number] UT 13:00:00 13:44:54 Visit Chon BURNHAM 350.1.13.58 H [facility] 9.2.7.2.686 PLA[place] 4 [id number] 5 2022-06-16 2022-06-16 Outpatient R RORO GOFF [facility] [id number] Univers 11:00:00 11:52:48 RORO GOFF [facility] 2022-06-16 2022-06-16 Office Jennifer [facility] 1.2.840.114 [id number] Univers 11:00:00 11:52:48 Visit HEALTH 350.1.13.10 it y of [place] 4.2.7.2.686 Martin as LEONARDO?BLEA [id number] [address] [facility] 2022-06-16 2022-06-16 Telephone Jennifer [facility] [id number] [id number] Univers 00:00:00 00:00:00 HEALTH 350.1.13.10 it y of [place] 4.2.7.2.686 Martin as LEONARDO?BLEA [id number] [address] [facility] 2022-06-14 2022-06-[address] [facility] 1.2.188.962 [id number] Univers 00:00:00 00:00:00 Delaneyel paso MULTISPEC 350.1.13.10 [place]2.[place] [id number] [facility] AND [address] DIABETES CLINIC 2022-06-14 2022-06-14 Telephone Matt [facility] 1.2.540.406 [id number] Univers 00:00:00 00:00:00 [facility] MULTISPEC 350.1.13.10 [place] [id number] [address] DIABETES CLINIC 2022-06-14 2022-06-14 Orders Doctor ARMANDO 1.2.840.114 [id number] Univers 00:00:00 00:00:00 Only Unassigned, REJI 350.1.13.10 ity of [place] [facility] 4.2.7.2.686 [place] as [id number] [address] 2022-06-11 2022-06-11 Outpatient Raff, MHHSOIB MHHSOIB [id number] 09:14:00 23:59:00 Agnes 06 [facility] 2022-06-11 2022-06-11 Outpatient Chip, MHHSOIB MHHSOIB [id number] 09:14:00 23:59:00 [facility]nes 06 [facility] 2022-06-08 2022-06-08 Outpatient RAZA MH MHSE [id number] MH 07:23:00 09:50:00 [facility] 2022-06-08 2022-06-08 Outpatient Raza MHSE MHSE [id number] 07:23:00 09:50:00 Chon Viramontes 15 2022-06-08 2022-06-08 Outpatient Raza MHSE MHSE [id number] 07:23:00 09:50:00 Chon Viramontes 15 2022-06-08 2022-06-08 Outpatient RAZA [facility] [id number] [place] 07:30:00 07:30:00 [facility] 2022-06-08 Outpatient TICO PersonSE MHSE [id number] 07:30:00 07:30:00 Chon Hsu 15 2022-06-08 2022-06-08 Outpatient TICO PersonSE SE [id number] 07:30:00 07:30:00 Chon Viramontes 15 2022-05-31 2022-05-31 Office JODI Johnson [id number] [place] 14:20:00 15:36:12 Visit Mckenzie MCLAIN [id number] [facility] [id number] [facility] [id number] 2022-05-28 2022-05-28 Outpatient [facility] [id number] [place] 00:00:00 12:39:48 Health 2022-05-28 2022-05-28 Office JODI PERSON [facility] [id number] [place] 08:30:00 09:45:10 Visit CHON MANDUJANO [id number] H [facility] [id number] [facility] [id number] 2022-05-26 2022-05-26 OFFICE STLC STLC [id number] Co mmon 00:00:00 00:00:00 VISIT [facility] - [facility] LEVEL 4 [facility] 2022-05-25 2022-05-25 (TEL) [facility] STLC [id number] Co mmon 00:00:00 00:00:00 [facility] - [facility] 2022-05-24 2022-05-24 Outpatient Raff, MH29 MH29 [id number] 15:08:00 23:59:00 Agnes 05 [place]ug[place] 2022-05-24 2022-05-24 Outpatient Raff, MH29 MH29 [id number] 15:08:00 23:59:00 Agnes 05 Alue 2022-05-24 2022-05-24 Outpatient [facility] [id number] [place] 14:20:00 14:20:00 [facility] 2022-05-24 2022-05-24 Outpatient [facility] [id number] [place] 09:20:00 09:20:00 [facility] 2022-05-20 2022-05-20 Tin ROBERTS 1.2.840.114 [id number] [facility] 00:00:00 00:00:00 Only Unassigned, REJI 350.1.13.10 ity of [facility] 4.2.7.2.686 [place] as [phone] [address] 2022-05-20 2022-05-20 (TEL) STLMLC STLMLC [id number] Co mmon 00:00:00 00:00:00 Spirit - [facility] 2022-05-19 2022-05-19 Telephone [facility] 1.2.955.648 [id number] Univers 00:00:00 00:00:00 Addy ROBERTSON 350.1.13.10 ity of [place] [id number] [address] 2022-05-19 2022-05-19 Telephone [facility] 1.2.063.806 [id number] [facility] 00:00:00 00:00:00 Addy ROBERTSON 350.1.13.10 ity of [place] [id number] [address] 2022-05-11 2022-05-11 Outpatient R ALICE BILLINGSLEY [facility] 10 [id number] [facility] 09:00:00 09:00:00 ALICE BILLINGSLEY i [facility] 2022-05-07 2022-05-07 Outpatient [facility] [id number] [place] 00:00:00 10:38:01 Health 2022-05-07 2022-05-07 Office JODI Person [facility] 1.2.840.114 [id number] [place] 08:30:00 09:35:36 Visit Chon MANDUJANO 350.1.13.58 H [facility] 9.2.7.2.686 [address] 6 [id number] 5 2022-05-05 2022-05-05 Outpatient ALBERTA Saunders JOSÉ MIGUEL [id number] 15:35:00 23:59:00 Agnes Rosibel Muirgbe 2022-05-05 2022-05-05 Outpatient Rafrichard, MHOIP MHOIP [id number] 15:35:00 23:59:00 Agnes 03 Alugbe 2022-04-26 2022-04-26 Outpatient RAZA MHBL MHBL [id number] MHBL 09:48:00 23:59:00 CHON 2022-04-26 2022-04-26 Outpatient Raza MHPL MHPL [id number] 09:48:00 23:59:00 Chon Viramontes 14 2022-04-26 2022-04-26 Outpatient TICO PersonPL MHPL [id number] 09:48:00 23:59:00 Chon Viramontes 14 2022-04-20 2022-04-20 Office Williamrichard JODI 1.2.840.114 [id number] [place] 09:00:00 10:19:42 Visit Agnes MCLAIN 350.1.13.58 Health [facility] 9.2.7.2.686 [facility] [id number] 0 2022-04-16 2022-04-16 Office JODI Person [facility] 1.2.840.114 [id number] [place] 09:00:00 10:07:13 Visit Chon BURNHAM 350.1.13.58 H [facility] 9.2.7.2.686 PLA[address] 7 [id number] 5 2022-04-12 2022-04-12 Refjocy Gutierrez [facility] 1.2.840.114 [id number] Univers 00:00:00 00:00:00 [facility] 350.1.13.10 [facility] 4.2.7.2.686 [facility] [id number] [address] [facility] 2022-04-02 2022-04-02 Outpatient RAZA [facility] [id number] [place] 10:15:00 11:19:25 [facility] 2022-03-31 2022-03-31 Outpatient Viridiana FUCHS [facility] [id number] Univers 09:00:00 12:19:16 SENDIL ity of [facility] 2022-03-31 2022-03-31 Office Shila [facility] 1.2.840.114 [id number] Univers 09:00:00 12:19:16 Visit Addy CharleneTommyCristyTommy ROBERTSON 350.1.13.10 ity of [place] 4.2.7.2.[place] SHANN[place] [id number] Ga dical NAL 059 [facility] 2022-03-31 2022-03-31 Orders Doctor ARMANDO 1.2.840.114 [id number] [facility] 00:00:00 00:00:00 Only Unassigned, REJI 350.1.13.10 ity of [place] [facility] 4.2.7.2.686 [place] as [phone] [address] 2022-03-29 2022-03-29 Outpatient R YELENA, [facility] [id number] [facility] 13:40:00 13:40:00 RAJAN itkatiuska [facility] 2022-03-22 2022-03-22 Speech & D'Phyllis, 1.2.840.1 [id number] 2100 [id number] Methodi 10:30:00 11:38:56 Language Sergio 70386.1.[address] Eval 3.430.2.7 Hospit a .3.339261 l .8 2022-03-22 2022-03-22 Outpatient [facility] [id number] [place] 00:00:00 00:00:[address] 2022-03-22 2022-03-22 Travel 1.2.840.1 1.2.052.543 0158 [id number] Methodi 00:00:00 00:00:[address] 3.430.2.7 0.2.7.3.698 spita .3.623469 084.8 l .8 2022-03-17 2022-03-17 OFFICE STLMLC STLC [id number] Co mmon 00:00:00 00:00:00 VISIT Karl RIVERS PT - CHI LEVEL 4 [facility] 2022-03-16 2022-03-16 Office JODI Saunders 1.2.840.114 [id number] UT 10:00:00 12:15:21 Visit Agnes MCLAIN 350.1.13.58 Health STATION 9.2.7.2.686 BUILDING [id number] 0 2022-03-15 2022-03-15 Outpatient ELIZABETH [facility] [id number] [place] 10:20:00 10:20:00 MCKENZIE Health 2022-03-11 2022-03-11 Speech & Procter, 1.2.840.1 [id number] 2100 [id number] Methodi 10:30:00 11:27:17 Language Mary 89606.1.[address] Eval 3.430.2.7 Hospit a .3.196221 l .8 2022-03-11 2022-03-11 Office Thekdi, 1.2.840.1 [id number] 621123 8935 Methodi 11:20:00 11:26:59 Visit Ada 31651.1.[address] Jim 3.430.2.7 Hospit a .3.568887 l .8 2022-03-11 2022-03-11 Outpatient [facility] [id number] 860 [place] 00:00:00 00:00:[address] 2022-03-11 2022-03-11 Outpatient THEI, [facility] [id number] 860 [place] 00:00:00 00:00:00 ADA [address] 2022-03-11 2022-03-11 Travel 1.2.840.1 1.2.468.059 7819 193616 Methodi 00:00:00 00:00:[address] 3.430.2.7 0.2.7.3.698 spita .3.730471 084.8 l .8 2022-02-24 2022-02-24 Outpatient Viridiana FUCHS [facility] [id number] Univers 07:41:45 07:45:00 SENDIL katiuska [facility] 2022-02-15 2022-02-15 Office Elizabeth, UTP 1.2.840.114 [id number] [place] 10:50:00 12:08:12 Visit Mckenzie C CHEMO 350.1.13.58 H [facility] STATION 9.2.7.2.686 [facility] [id number] 0 2022-02-09 2022-02-09 Outpatient R SHILA [facility] [id number] Univers 09:00:00 09:28:54 SENDIL ity [facility] 2022-02-09 2022-02-09 Office Shila [facility] 1.2.840.114 [id number] Univers 09:00:00 09:28:54 Visit Addy ROBERTSON 350.1.13.10 [facility] 4.2.7.2.686 [facility] [id number] Ga dical NAL 059 [facility] 2022-02-04 2022-02-04 (TEL) STLMLC STLC [id number] Co mmon 00:00:00 00:00:00 [facility] 2022-01-20 2022-01-20 Telephone Thekdi, 1.2.840.1 [id number] 2100 905839 Methodi 00:00:00 00:00:[address] Jim 3.430.2.7 Hospit a .3.499420 l .8 2022-01-19 2022-01-19 (TEL) STLMLC STLC [id number] Co mmon 00:00:00 00:00:00 [facility] 2022-01-01 2022-01-01 Office JODI Person [facility] 1.2.840.114 [id number] [place] 10:45:00 11:26:22 Visit Chon MANDUJANO 350.1.13.58 H [facility] 9.2.7.2.686 [place] [id number] 5 2021-12-30 2021-12-30 Outpatient R MATT [facility] [id number] Univers 09:21:48 23:59:00 WENTMARIS ity [facility] 2021-12-30 2021-12-30 [facility] 1.2.840.114 [id number] Univers 09:21:48 23:59:00 Encounter Jagjit ROBERTSON 350.1.13.10 [facility] 4.2.7.2.686 [facility] [id number] [address] 2021-12-28 2021-12-28 Telephone [facility] 1.2.878.081 [id number] Univers 00:00:00 00:00:00 [facility] 350.1.13.10 it y of [place] 4.2.7.2.686 Martin as LEONARDO?BLEA [id number] [address] [facility]ICE [facility] 2021-12-24 2021-12-24 Outpatient PERSON [facility] [id number] 46 DC 10:30:00 10:30:00 CHON [facility] 2021-12-24 2021-12-24 Casey [facility] 1.2.840.114 [id number] Univers 00:00:00 00:00:00 Emma [facility] 350.1.13.10 ity of [place] 4.2.7.2.686 [facility] TAHUYA [id number] [address] [facility] 2021-12-23 2021-12-23 Telephone [facility] 1.2.089.292 [id number] Univers 00:00:00 00:00:00 [facility] 350.1.13.10 ity of [place] 4.2.7.2.686 [facility] [id number] [address] [facility] 2021-12-22 2021-12-22 Outpatient [facility] [id number] Univers 14:30:00 15:17:11 [facility] 2021-12-22 2021-12-22 Office [facility] 1.2.840.114 [id number] Univers 14:30:00 15:17:11 Visit [facility] 350.1.13.10 it y of [place] 4.2.7.2.686 [place] as LEONARDO?BLEA [id number] [address] [facility]ICE [facility] 2021-12-15 2021-12-15 Outpatient TICO RamanSL MHSL [id number] 17:34:49 20:22:00 Liang Powell 2021-12-15 2021-12-15 Outpatient TICO RamanSL MHSL [id number] 17:34:49 20:22:00 Liang 13 Andre 2021-12-15 2021-12-15 Emergency E BEBO, MHFB MHFB [id number] MHFB 17:34:00 20:22:00 LIANG 2021-12-15 2021-12-15 OFFICE [facility] [id number] Co mmon 00:00:00 00:00:00 VISIT Spirit ESTAB PT - CHI LEVEL 4 [facility] 2021-12-11 2021-12-11 Orders Doctor ARMANDO 1.2.840.114 [id number] Univers 00:00:00 00:00:00 Only Unassigned, REJI 350.1.13.10 ity of [place] [facility] 4.2.7.2.686 [place] as [id number] [facility] [address] [place] 2021-12-10 2021-12-10 Office Anthony Meehan [facility] 1.2.365.474 [id number] Univers 10:00:00 10:08:18 Visit Rex ROBERTSON 350.1.13.10 i ty [facility] 4.2.7.2.686 [place] [facility] [phone] Ga dical NAL [address] [facility] 2021-12-10 2021-12-10 Outpatient R ZORAN [facility] [id number] Univers 10:00:00 10:08:18 ity of [facility] 2021-12-10 2021-12-10 Outpatient R ZORAN [facility] [id number] Univers 10:00:00 10:00:00 ity of [facility] 2021-12-10 2021-12-10 Outpatient R ZORAN [facility] [id number] Univers 09:30:00 09:30:00 ity of [facility] 2021-12-01 2021-12-01 [facility] Zoran [facility] 1.2.840.114 [id number] Univers 13:04:01 23:59:00 Encounter Rex ROBERTSON 350.1.13.10 ity [facility] 4.2.7.2.[place] C[place] [id number] [facility] [address] 2021-12-01 2021-12-01 Outpatient R ZORAN [facility] [id number] Univers 13:03:03 13:03:03 ity of [facility] 2021-12-01 2021-12-01 Hospital Anthony Meehan [facility] 1.2.840.114 [id number] Univers 13:03:03 13:03:03 Encounter Cam MARCELO 350.1.13.10 ity of [place].2.7.2.[place] C[place] [id number] [facility] [address] 2021-11-26 2021-11-26 Nurse Therapy, Adc Covid Infusion [facility] 1.2.840.114 [id number] Univers 16:00:00 17:00:00 Visit Shaka Souza 350.1.13.10 ity of [place] 4.2.7.2.686 [place] SURGICAL [id number] [facility] [address] [place] 2021-11-26 2021-11-26 Outpatient R STAR [facility] [id number] Univers 16:00:00 16:00:00 SHAKA ity of [facility] 2021-11-26 2021-11-26 Telephone [facility] 1.2.840.114 [id number] Univers 00:00:00 00:00:00 Rania HEALTH 350.1.13.10 it y of [place] 4.2.7.2.686 [place] as LEONARDO?BLEA [phone] Ga kena FONSECA [address] MEDICAL OFFICE BUILDING 2021-11-26 2021-11-26 Orders Doctor ARMANDO 1.2.840.114 [id number] Univers 00:00:00 00:00:00 Only Unassigned, REJI 350.1.13.10 ity of [place] HOSPITAL 4.2.7.2.686 [place] as [id number] [facility] [address] 2021-11-25 2021-11-25 [facility] 1.2.692.036 [id number] Univers 17:23:20 23:59:00 Encounter Rania HEALTH 350.1.13.10 ity of [place] 4.2.7.2.686 [place] as LEONARDO?BLEA [id number] Ga kena FONSECA [address] [place] MEDICAL OFFICE BUILDING 2021-11-25 2021-11-25 Urgent Ebrahim, [facility] 1.2.840.114 [id number] Univers 19:00:00 19:00:00 Care [facility]ly [facility] 350.1.13.10 it y of [place] 4.2.7.2.686 [place] as LEONARDO?BLEA [id number] [facility] [address] [place] MEDICAL OFFICE BUILDING 2021-11-25 2021-11-25 Outpatient R SAGRARIO [facility] [id number] Univers 19:00:00 17:27:10 [facility] 2021-11-05 2021-11-05 Office [facility] 1.2.840.114 [id number] Univers 13:00:00 13:37:17 Visit Alice [place] 350.1.13.10 i ty [facility] 4.2.7.2.[place] [id number] [facility] [address] [facility] 2021-11-05 2021-11-05 Outpatient R ALICE BILLINGSLEY [facility] 10 [id number] Univers 13:00:00 13:37:17 ALICE BILLINGSLEY i ty of [facility] 2021-11-05 2021-11-05 Outpatient R ALICE BILLINGSLEY [facility] [id number] Univers 13:00:00 13:00:00 ALCIE BILLINGSLEY i ty of [facility] 2021-11-05 2021-11-05 Outpatient R ALICE BILLINGSLEY [facility] 10 [id number] Univers 13:00:00 13:00:00 ALICE BILLINGSLEY i ty of [facility] 2021-10-21 2021-10-21 Telephone JODI Serrano [facility] 1.2.057.869 [id number] [place] 00:00:00 00:00:00 Tara Kemp MED 350.1.13.58 David AMADOR 2 9.2.7.2.686 [id number] 6 2021-10-16 2021-10-16 Outpatient R ARELY [facility] [id number] Univers 13:30:00 13:30:00 EMMA [facility] 2021-10-14 2021-10-14 [id number] Common 00:00:00 00:00:00 MCR Spirit WELLNESS - CHI VISIT [facility] 2021-10-14 2021-10-14 OFFICE [facility] [id number] Co mmon 00:00:00 00:00:00 VISIT Spirit ESTAB PT - CHI LEVEL 4 [facility] 2021-10-09 2021-10-09 Outpatient R ARELY [facility] [id number] Univers 14:00:00 14:00:00 [facility] 2021-09-23 2021-09-23 Outpatient R ANTHONY MEEHAN [facility] [id number] Univers 10:30:00 10:30:00 [facility] 2021-09-21 2021-09-21 Outpatient R SHILA [facility] [id number] Univers 09:30:00 09:58:47 SENDIL [facility] 2021-09-21 2021-09-21 Office [facility] 1.2.840.114 [id number] Univers 09:30:00 09:58:47 Visit Addy ROBERTSON 350.1.13.10 [facility] 4.2.7.2.686 Laverne OLMSTEAD [id number] [address] 2021-09-18 2021-09-18 Outpatient R ALICE BILLINGSLEY [facility] 10 [id number] [facility] 11:00:00 11:00:00 ALICE BILLINGSLEY [facility] 2021-08-27 2021-08-27 Office JODI Person [facility] 1.2.840.114 [id number] [place] 10:00:00 11:07:43 Visit Chon MANDUJANO 350.1.13.58 [facility] 9.2.7.2.686 CHIQUITAZA 6 [id number] 5 2021-08-24 2021-08-24 Outpatient ALBERTA Person [facility] [id number] 385 06:20:00 23:59:00 Chon Viramontes 02 2021-08-24 2021-08-24 Outpatient ALBERTA Person [facility] [id number] 385 06:20:00 23:59:00 Chon Viramontes 2021-08-20 2021-08-20 Office Raza [facility] 1.2.840.114 [id number] [place] 14:45:00 16:21:13 Visit Chon MANDUJANO 350.1.13.58 H [facility] MEDICAL 9.2.7.2.686 [address] 4 [id number] 5 2021-08-17 2021-08-17 Refjocy [facility] 1.2.840.114 [id number] [facility] 00:00:00 00:00:00 Maggie MULTISPEC 350.1.13.10 ity of [place] 4.2.7.2.686 [facility] [id number] [facility] AND [address] DI[facility]ES CLINIC 2021-08-14 2021-08-14 Outpatient R ZORAN [facility] [id number] [facility] 10:30:00 11:08:55 ity of [facility] 2021-08-14 2021-08-14 Office Zoran [facility] 1.2.840.114 [id number] [facility] 10:30:00 11:08:55 Visit Rex BARAHONA 350.1.13.10 it y of WOM[facility]'S 4.2.7.2.686 [facility] [id number] [place] [address] [address] 2021-08-14 2021-08-14 [facility] [id number] [place] 08:45:00 08:45:00 CHON Health 2021-07-23 2021-07-23 Outpatient Raza OIP OIP [id number] 385 08:22:00 23:59:00 Chon Viramontes 2021-07-23 2021-07-23 Outpatient Raza OIP MHOIP [id number] 08:22:00 23:59:00 Chon Viramontes 2021-07-03 2021-07-03 Office Raza [facility] 1.2.840.114 [id number] [place] 08:30:00 09:34:36 Visit Chon MANDUJANO 350.1.13.58 H [facility] MEDICAL 9.2.7.2.686 [address] [id number] 5 2021-06-24 2021-06-24 Office JODI Person [facility] 1.2.840.114 [id number] [place] 08:30:00 08:59:13 Visit Chon MANDUJANO 350.1.13.58 H [facility] 9.2.7.2.686 [address] [id number] 5 2021-06-20 2021-06-20 Orders Doctor ARMANDO 1.2.840.114 [id number] Univers 00:00:00 00:00:00 Only Unassigned, REJI 350.1.13.10 ity of [place] HOSPITAL 4.2.7.2.686 [place] as [id number] [place] [address] [address] 2021-06-11 2021-06-11 Outpatient R ALICE BILLINGSLEY [facility] [id number] Univers 10:00:00 10:00:00 ALICE BILLINGSLEY i ty [facility] 2021-05-20 2021-05-20 Outpatient R SHILA [facility] [id number] Univers 08:45:24 23:59:00 SENDIL ity of [facility] 2021-05-20 2021-05-20 [facility], UNIVERSIT 1.2.840.114 [id number] Univers 08:45:24 23:59:00 Encounter Sendil [facility] 350.1.13.10 ity of CL[place].2.7.2.686 [place] [id number] [facility] [address] [place] 2021-05-20 2021-05-20 [facility], [facility] 1.2.840.114 [id number] Univers 08:45:11 23:59:00 Encounter Sendil [facility] 350.1.13.10 ity of CL[place] 4.2.7.2.686 [place] [id number] [facility] [address] [place] 2021-05-20 2021-05-20 [facility], [facility]ERS[facility] 1.2.840.114 [id number] Univers 08:44:56 08:44:56 Encounter Sendil [facility] 350.1.13.10 ity of CL[place]2.7.2.[place] [id number] [address] 2021-05-20 2021-05-20 [facility] 1.2.840.114 [id number] Univers 08:44:16 08:44:16 Encounter Addy ABRAHAM 350.1.13.10 ity of [facility] 4.2.7.2.686 [place] [id number] [address] 2021-05-13 2021-05-13 Telephone [facility] 1.2.988.043 [id number] Univers 00:00:00 00:00:00 Sendil Marycarmen ROBERTSON 350.1.13.10 [facility] 4.2.7.2.686 [place] PROFESS[place] [id number] Ga dicme NAL 9 [facility] 2021-05-12 2021-05-12 [facility] 1.2.275.692 [id number] Univers 00:00:00 00:00:00 Sendmatt ROBERTSON 350.1.13.10 ity [facility] 4.2.7.2.686 [place] PROFESS[place] [phone] Ga dicme NAL 9 [facility] 2021-04-27 2021-04-27 Outpatient [facility] [id number] Univers 07:58:47 23:59:00 SENDIL ity [facility] 2021-04-27 2021-04-27 [facility] 1.2.840.114 [id number] Univers 07:58:47 23:59:00 Encounter Addy ROBERTSON 350.1.13.10 ity of [place] 4.2.7.2.686 [place] PROFESS[place] [id number] Ga dicme NAL 846 [facility] 2021-04-27 2021-04-27 Outpatient [facility] [id number] Univers 07:58:47 23:59:00 SENDIL ity [facility] 2021-04-27 2021-04-27 Outpatient [facility] [id number] Univers 08:00:00 08:00:00 SENDIL ity [facility] 2021-04-23 2021-04-23 Outpatient R SHILA [facility] [id number] Univers 08:54:57 23:59:00 SENDIL ity [facility] 2021-04-23 2021-04-23 Hospital [facility] 1.2.840.114 [id number] Univers 08:54:57 23:59:00 Encounter Addy ROBERTSON 350.1.13.10 ity of [place] 4.2.7.2.686 [place] PROFESS[place] [id number] Ga dical NAL 843 [facility] 2021-04-23 2021-04-23 Office Dominic [facility] 1.2.840.114 [id number] [place] 11:45:00 12:45:21 Visit Barak MANDUJANO 350.1.13.58 H [facility] 9.2.7.2.686 [address] [id number] 7 2021-04-23 2021-04-23 Office Yesika [facility] 1.2.840.114 [id number] Univers 10:00:00 10:30:00 Visit Elizabethmiguel ROBERTSON 350.1.13.10 i ty of [place] 4.2.7.2.686 [place] PROFESS[place] [id number] Ga dical NAL 085 [facility] 2021-04-23 2021-04-23 Outpatient ALICE KNIGHT [facility] 10 [id number] Univers 10:00:00 10:00:00 ALICE BILLINGSLEY i ty of [facility] 2021-04-23 2021-04-23 Outpatient Viridiana FUCHS [facility] [id number] Univers 09:00:00 09:00:00 SENDIL [facility] 2021-04-17 2021-04-17 Outpatient Viridiana FORD [facility] [id number] Univers 10:40:00 10:40:00 [place] [facility] 2021-04-17 2021-04-17 Outpatient Viridiana FORD [facility] [id number] Univers 10:40:00 08:09:34 [place] [facility] 2021-04-17 2021-04-17 Outpatient Viridiana FORD [facility] [id number] Univers 10:40:00 08:09:34 KRISTOPHER ity [facility] 2021-04-17 2021-04-17 Imm/Inj Nurse, Adc Pob Immunization [facility] 1.2.840.114 [id number] Univers 08:09:24 08:09:34 Visit Kristopher Ford 350.1.13 .10 it[place] [id number] Ga dical NAL 421 [facility] 2021-03-23 2021-03-23 Outpatient R SHILA [facility] [id number] Univers 14:00:00 14:34:06 SENDIL [facility] 2021-03-23 2021-03-23 [id number] Univers 14:00:00 14:34:06 SENDIL [facility] 2021-03-23 2021-03-23 Outpatient R SHILA [facility] [id number] Univers 14:00:00 14:34:06 SENDIL [facility] 2021-03-23 2021-03-23 [facility] 1.2.840.114 [id number] Univers 13:53:00 14:34:06 Visit Addy ROBERTSON 350.1.13.10 it[place] [id number] Ga dical NAL 059 [facility] 2021-03-23 2021-03-23 Orders Doctor ARMANDO 1.2.840.114 [id number] Univers 00:00:00 00:00:00 Only Unassigned, REJI 350.1.13.10 ity of [place] [facility] 4.2.7.2.686 [place] as [id number] [facility] [address] [place] 2021-03-12 2021-03-12 Refill Matt [facility] 1.2.840.114 [id number] Univers 00:00:00 00:00:00 Jagjit ROBERTSON 350.1.13.10 i ty [place] [id number] Ga dical NAL 220 [facility] 2021-03-05 2021-03-05 Outpatient R SHILA [facility] [id number] Univers 10:30:00 10:30:00 SENDIL [facility] 2021-03-04 2021-03-04 Emergency [facility] [id number] Univers 12:32:00 14:19:00 Megha Robertson 350.1.13.10 ity [facility] 4.2.7.2.686 [facility] [id number] [address] 2021-03-04 2021-03-04 Emergency X [facility] ERT [id number] Univers 12:32:00 14:19:00 MEGHA [facility] 2021-03-04 2021-03-04 (TEL) STLMLC STLMLC [id number] Co mmon 00:00:00 00:00:00 [facility] 2021-03-02 2021-03-03 Emergency [facility] [place] 1.2.407.248 [id number] Univers 20:28:00 00:10:00 Irisimtiaz Robertson 350.1.13.10 ity of [place] 4.2.7.2.686 [facility] [phone] [address] 2021-03-02 2021-03-03 Emergency X [facility] ERT [id number] Univers 20:28:00 00:10:00 [facility] 2021-03-02 2021-03-03 Emergency X [facility] ERT [id number] Univers 20:28:00 00:10:00 [facility] 2021-02-25 2021-02-25 OFFICE STLMLC STLMLC [id number] Co mmon 00:00:00 00:00:00 VISIT Spirit ESTAB PT - CHI LEVEL 4 [facility] 2021-02-06 2021-02-06 Outpatient Viridiana MCGEE [facility] [id number] Univers 07:45:00 08:27:51 EMMA [facility] 2021-02-06 2021-02-06 Outpatient [facility] [id number] Univers 07:45:00 08:27:51 EMMA ity [facility] 2021-02-06 2021-02-06 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, Ang - Db [facility] 1.2.840.1 14 [id number] Univers 07:37:06 08:27:51 Visit Emma Mcgee 350.1.13.10 ity of [place] 4.2.7.2.686 Martin as Leonardo?Blea [phone] [facility] [address] [facility] 2021-02-06 2021-02-06 Outpatient R [facility] [id number] Univers 07:45:00 07:45:00 ity [facility] 2021-02-03 2021-02-03 [facility] 1.2.840.114 [id number] Univers 07:50:50 23:59:00 Encounter Cam [place] 350.1.13.10 ity [facility] [place].2.[place] [phone] [address] 2021-02-03 2021-02-03 Outpatient R [facility] [id number] Univers 00:00:00 23:59:00 ity [facility] 2021-02-03 2021-02-03 [facility] Zoran [facility] 1.2.840.114 [id number] Univers 07:49:54 07:49:54 Encounter Cam [place] 350.1.13.10 ity [facility] 4.2.7.2.686 [place] [phone] [address] 2021-02-03 2021-02-03 Outpatient R [facility]AN [facility] [id number] Univers 00:00:00 00:00:00 ity [facility] 2021-01-30 2021-01-[address] [facility] 1.2.840.114 [id number] Univers 13:52:44 15:13:34 [facility] 350.1.13.10 it y of [place] 4.2.7.2.686 [place] as Leonardo?Blea [phone] Ga yesseniaal kney [address] [facility] 2021-01-30 2021-01-30 Outpatient [facility] [id number] Univers 14:00:00 14:00:00 [facility] 2021-01-29 2021-01-29 Outpatient R [facility]AN [facility] [id number] Univers 08:30:00 08:30:00 ity [facility] 2021-01-29 2021-01-29 Outpatient R Z[facility]AN [facility] [id number] Univers 08:30:00 08:30:00 ity [facility] 2021-01-29 2021-01-29 Outpatient R [facility]AN [facility] [id number] Univers 08:30:00 08:30:00 [facility] 2021-01-27 2021-01-27 Outpatient R [facility] [id number] Univers 10:00:00 10:00:00 [facility] 2021-01-21 2021-01-21 Case Zoran [facility] 1.2.619.215 [id number] Univers 00:00:00 00:00:00 Management Cam [place] 350.1.13.10 ity of [place] 4.2.7.2.686 [facility] Professio [phone] Ga dical nal 134 [facility] 2021-01-20 2021-01-20 [facility] Zoran [facility] 1.2.840.114 [id number] Univers 07:40:46 23:59:00 Encounter Cam [place] 350.1.13.10 ity of [place] 4.2.7.2.686 [facility] [phone] [facility] [address] 2021-01-20 2021-01-20 [facility] Zoran [facility] 1.2.840.114 [id number] Univers 07:39:22 07:39:22 Encounter Cam [place] 350.1.13.10 ity of [place] 4.2.7.2.686 [facility] [id number] [facility] [address] 2021-01-20 2021-01-20 Outpatient R ZORAN [facility] RAD [id number] Univers 00:00:00 00:00:00 ity [facility] 2021-01-20 2021-01-20 Telephone Anthony Meehan [facility] 1.2.840.114 [id number] Univers 00:00:00 00:00:00 Rex Robertson 350.1.13.10 i ty of [place] 4.2.7.2.686 [place] [phone] Ga dical nal [address] [place] [address] 2021-01-07 2021-01-07 Office Anthony Meehan [facility] 1.2.241.394 [id number] [facility] 09:15:09 10:13:05 Visit Rex Robertson 350.1.13.10 i ty of [place] 4.2.7.2.686 [place] [phone] Ga dic[address] 2021-01-07 2021-01-07 Outpatient R ANTHONY MEEHAN [facility] [id number] [facility] 09:30:00 09:30:00 [facility] 2021-01-01 2021-01-01 Office JODI Person [facility] 1.2.840.114 [id number] [place] 09:23:06 10:49:29 Visit Chon [facility] 350.1.13.58 H [facility] MEDICAL 9.2.7.2.686 [address] 4 [id number] 5 2021-01-01 2021-01-01 Office JODI Person [facility] 1.2.840.114 [id number] 09:23:06 10:49:29 Visit Chon [facility] 350.1.13.58 MEDICAL 9.2.7.2.686 PLA[address] 4 [id number] 5 2020-12-30 2020-12-30 OFFICE STLMLC STLMLC [id number] Co mmon 00:00:00 00:00:00 VISIT Spirit ESTAB PT - CHI LEVEL 4 [facility] 2020-12-25 2020-12-25 (TEL) STLMLC STLMLC [id number] Co mmon 00:00:00 00:00:00 Spirit - CHI [facility] 2020-12-05 2020-12-05 (TEL) STLMLC STLMLC [id number] Co mmon 00:00:00 00:00:00 [facility] 2020-11-25 2020-11-25 [facility] [id number] Co mmon 00:00:00 00:00:00 VISIT [facility] LEVEL 4 [facility] 2020-11-13 2020-11-13 Office Raza [facility] 1.2.840.114 [id number] DC 08:47:21 09:45:10 Visit Chon [facility] 350.1.13.58 H [facility] MEDICAL 9.2.7.2.686 PLA[address] 6 [id number] 5 2020-11-13 2020-11-13 Office RazaJODI [facility] 1.2.840.114 [id number] 08:47:21 09:45:10 Visit Chon [place] 350.1.13.58 MEDICAL 9.2.7.2.686 [address] 6 [id number] 5 2020-11-11 2020-11-11 (TEL) [facility] [id number] Co mmon 00:00:00 00:00:00 [facility] 2020-11-04 2020-11-04 Refill Gayle Olvera [facility] 1.2.840.11 4 [id number] DC 00:00:00 00:00:00 Gayle Olvera 350.1.13.58 [facility] MEDICAL 9.2.7.2.686 PLA[address] 9 [id number] 5 2020-11-04 2020-11-04 Refill Wade [facility] 1.2.840.114 [id number] 00:00:00 00:00:00 Gayledevin [facility] 350.1.13.58 MEDICAL 9.2.7.2.686 PLA[place] 0 [id number] 5 2020-10-28 2020-10-28 Glass Mould Cleaner 2, Adc Lab [facility] 1.2.840.114 [id number] [facility] 08:38:37 08:53:37 Visit Emma Mcgee 350.1.13.10 Frida 4.2.7.2.686 Laverne Olmstead [phone] Ga dical nal 353 [facility] 2020-10-28 2020-10-28 Outpatient R [facility] [id number] Univers 08:45:00 08:45:00 ity of [facility] 2020-10-28 2020-10-28 Patient [facility] 1.2.840.114 [id number] Univers 00:00:00 00:00:00 Secure Msg Emma Robertson 350.1.13.10 it[place] of [place].2.7.2.[place] [phone] Me dical nal 220 [facility] 2020-10-27 2020-10-[address] [facility] 1.2.941.617 [id number] [facility] 00:00:00 00:00:00 Emma Robertson 350.1.13.10 i ty of [place].2.7.2.[place] [phone] Ga dical nal 220 [facility] 2020-10-24 2020-10-[address] [facility] 1.2.840.114 [id number] 10:34:37 11:56:05 Visit Emma Robertson 350.1.13.10 [place] 4.2.7.2.686 Professio [phone] [address] 2020-10-24 2020-10-[address] [facility] 1.2.840.114 [id number] [facility] 10:34:37 11:56:05 Visit Emma Robertson 350.1.13.10 i ty of [place] 4.2.7.2.[place] [phone] Ga dical nal 220 [facility] 2020-10-24 2020-10-24 Outpatient [facility] [id number] Univers 10:30:00 10:30:00 EMMAAN beltran of [facility] 2020 2020 Office Raza [facility] 1.2.840.114 [id number] DC 09:19:32 10:33:13 Visit Chon MANDUJANO 350.1.13.58 H [facility] 9.2.7.2.686 [address] 6 [id number] 5 2020 2020 Office JODI Person [facility] 1.2.840.114 [id number] 09:19:32 10:33:13 Visit Chon MANDUJANO 350.1.13.58 MEDICAL 9.2.7.2.686 PLA[place] 1 [id number] 5 2020 2020 Refill Raza [facility] 1.2.840.114 [id number] [place] 00:00:00 00:00:00 Chon MANDUJANO 350.1.13.[address] [facility] MEDICAL 9.2.7.2.686 [place] 2 [id number] 5 2020 2020 Telephone JODI Person [facility] 1.2.416.674 [id number] [place] 00:00:00 00:00:00 Chon MANDUJANO 350.1.13.[address] [facility] MEDICAL 9.2.7.2.686 PLA[place] 3 [id number] 5 2020 2020 Telephone Raza [facility] 1.2.959.367 [id number] 00:00:00 00:00:00 Chon MANDUJANO 350.1.13.58 MEDICAL 9.2.7.2.686 PLA[place] 3 [id number] 5 2020 2020 Refjocy Person [facility] 1.2.840.114 [id number] 00:00:00 00:00:00 Chon MANDUJANO 350.1.13.58 MEDICAL 9.2.7.2.686 [address] 1 [id number] 5 2020-10-22 2020-10-22 (TEL) [facility] [id number] Co mmon 00:00:00 00:00:00 [facility] 2020-10-19 2020-10-19 PIOTR Eason 1.2.840.114 [id number] Univers 00:00:00 00:00:00 Jagjit [place] 350.1.13.10 i ty of Rad 4.2.7.2.686 Laverne Olmstead [phone] Me dical nal 220 [facility] 2020-10-17 2020-10-17 Office Yesika [facility] 1.2.840.114 [id number] Univers 09:54:35 10:19:59 Visit Alice Robertson 350.1.13.10 i ty [facility] 4.2.7.2.686 Laver[place] s Professio [phone] Me dical nal 085 [facility] 2020-10-17 2020-10-17 Outpatient R ALICE BILLINGSLEY [facility] 10 [id number] Univers 10:00:00 10:00:00 ALICE BILLINGSLEY i ty of [facility] 2020-10-17 2020-10-17 Orders Doctor ARMANDO 1.2.840.114 [id number] Univers 00:00:00 00:00:00 Only Unassigned, REJI 350.1.13.10 ity of [place] [facility] 4.2.7.2.686 Martin as [phone] [address] 2020-10-17 2020-10-17 Refill Gayle Olvera [facility] 1.2.840.11 4 [id number] [place] 00:00:00 00:00:00 Gayle Olvera 350.1.13.58 [facility] MEDICAL 9.2.7.2.686 [address] 8 [phone] 5 2020-10-17 2020-10-17 Refill Wade [facility] 1.2.840.114 [id number] 00:00:00 00:00:00 Gayle MANDUJANO 350.1.13.58 MEDICAL 9.2.7.2.686 [address] 4 [id number] 5 2020-10-16 2020-10-16 Office Raza [facility] 1.2.840.114 [id number] UT 08:13:33 09:07:06 Visit Chon NAZIA 350.1.13.[address] [facility] MEDICAL 9.2.7.2.686 [place] 7 [id number] 5 2020-10-16 2020-10-16 Refill Gayle Olvera [facility] 1.2.840.11 4 [id number] UT 00:00:00 00:00:00 Gayle Olvera 350.1.13.58 Health MEDICAL 9.2.7.2.686 [address] 4 [id number] 5 2020-10-16 2020-10-16 Refill JODI Olvera [facility] 1.2.840.114 [id number] 00:00:00 00:00:00 Gayle [facility] 350.1.13.58 MEDICAL 9.2.7.2.686 PLAZA 3 [id number] 5 2020-10-06 2020-10-06 Telephone Gutierrez, [facility] 1.2.878.554 [id number] [facility] 00:00:00 00:00:00 Jagjit Robertson 350.1.13.10 i ty of [place] 4.2.7.2.[place] [phone] Me dical nal 220 [facility] 2020-10-06 2020-10-06 Orders Doctor ARMANDO 1.2.840.114 [id number] [facility] 00:00:00 00:00:00 Only Unassigned, REJI 350.1.13.10 ity of [place] [facility] 4.2.7.2.686 [place] as [phone] [address] 2020-09-30 2020-10-01 Observatio [facility] [id number] [facility] 15:38:00 20:45:00 [facility] 12 l [facility] 2020-09-30 2020-10-01 Outpatient RAZA, MHSE MHSE [id number] MH 10:38:00 15:45:00 CHON [facility] 2020-09-30 2020-10-01 Outpatient Raza, MHSE MHSE [id number] 10:38:00 15:45:00 Chon Viramontes 2020-09-30 2020-10-01 Outpatient Raza, MHSE MHSE [id number] 10:38:00 15:45:00 Chon Viramontes 12 2020-09-30 2020-09-30 Outpatient Raza, MHSE MHSE [id number] 07:30:00 07:30:00 Chon Viramontes 12 2020-09-30 2020-09-30 Outpatient Person, MHSE MHSE [id number] [facility] 07:30:00 07:30:00 Chon Viramontes 12 2020-09-30 2020-09-30 EXT MH OP Marshal, EXT [facility] 1.2.840.114 1 [id number] UT 00:00:00 00:00:00 Anju LOCATION 350.1.13.58 [facility] 9.2.7.2.686 [id number] 0 2020-09-30 2020-09-30 EXT MH OP Marshal, EXT [facility] 1.2.840.114 1 [id number] [place] 00:00:00 00:00:00 Anju LOCATION 350.1.13.58 [facility] 9.2.7.2.686 [id number] 0 2020-09-26 2020-09-26 Consult Raza [facility] 1.2.840.114 [id number] UT 13:50:32 15:13:55 Chonjanneth MANDUJANO 350.1.13.[address] [facility] MEDICAL 9.2.7.2.686 PLAZA 3 [id number] 5 2020-09-25 2020-09-25 Orders Raza [facility] 1.2.840.114 [id number] UT 00:00:00 00:00:00 Only Chon MANDUJANO 350.1.13.[address] [facility] MEDICAL 9.2.7.2.686 PLAZA 0 [id number] 5 2020-09-24 2020-09-24 Outpatient Viridiana HANNAH [facility] [id number] [facility] 13:30:00 13:30:00 [facility] 2020-09-24 2020-09-24 Outpatient R CAMDEN [facility] [id number] Univers 13:30:00 13:10:40 [facility] 2020-09-24 2020-09-24 Refill Gayle Olvera [facility] 1.2.840.11 4 [id number] DC 00:00:00 00:00:00 Gayle Olvera 350.1.13.58 [facility] MEDICAL 9.2.7.2.686 PLAZA 4 [id number] 5 2020-09-23 2020-09-23 OFFICE STLMLC STLMLC [id number] Co mmon 00:00:00 00:00:00 VISIT Spirit ESTAB PT - CHI LEVEL 4 [facility] 2020-09-22 2020-09-22 Casey [facility] 1.2.840.114 [id number] Univers 00:00:00 00:00:00 Jagjit Robertson 350.1.13.10 i ty [facility] 4.2.7.2.[place] [phone] Me dical nal 220 [facility] 2020-09-08 2020-09-08 (TEL) STLMLC STLMLC [id number] Co mmon 00:00:00 00:00:00 Spirit - CHI [facility] 2020-09-03 2020-09-03 Outpatient R CAMDEN [facility] [id number] Univers 14:10:00 14:10:00 [facility]O [facility] 2020-09-03 2020-09-03 Office [facility] 1.2.840.114 [id number] Univers 11:19:42 11:46:33 Visit Addy Robertson 350.1.13.10 [facility] 4.2.7.2.[place] [phone] Ga dical nal 059 [facility] 2020-09-03 2020-09-03 Outpatient [facility] [id number] Univers 11:30:00 11:30:00 SENDIL [facility] 2020-08-29 2020-08-29 (TEL) STLMLC STLMLC [id number] Co mmon 00:00:00 00:00:00 Spirit - CHI [facility] 2020-08-26 2020-08-26 SUB ANNUAL STLMLC STLMLC [id number] Common 00:00:00 00:00:00 MCR Spirit WELLNESS - CHI VISIT [facility] 2020-08-26 2020-08-26 OFFICE STLMLC STLMLC [id number] Co mmon 00:00:00 00:00:00 VISIT Spirit ESTAB PT - CHI LEVEL 4 [facility] 2020-08-20 2020-08-20 (TEL) [facility] [id number] Co mmon 00:00:00 00:00:00 [facility] 2020-08-19 2020-08-19 Refjocy Gutierrez [facility] 1.2.840.114 [id number] Univers 00:00:00 00:00:00 Wentong [place] 350.1.13.10 i ty of [place] 4.2.7.2.[place] [phone] [address] 2020-08-13 2020-08-13 Outpatient R MATT [facility] [id number] Univers 13:00:00 13:00:00 DELANEYONG [facility] 2020-08-13 2020-08-13 (TEL) [facility] [id number] Co mmon 00:00:00 00:00:00 [facility] 2020-08-12 2020-08-12 (TEL) [facility] [id number] Co mmon 00:00:00 00:00:00 [facility] 2020-07-28 2020-07-28 Refjocy [facility] 1.2.840.114 [id number] Univers 00:00:00 00:00:00 [facility] [place] 350.1.13.10 i ty of [place]2.7.2.[place] [phone] [address] 2020-07-28 2020-07-28 Refill Matt [facility] 1.2.840.114 [id number] Univers 00:00:00 00:00:00 Wentong [place] 350.1.13.10 i ty of [place] 4[place]2.7.2.[place] [phone] [address] 2020-07-22 2020-07-22 Patient Logan [facility] 1.2.840.114 [id number] Univers 00:00:00 00:00:00 [facility] 350.1.13.10 i ty of [facility] 4.2.7.2.686 Laverne ESTRADA [phone] Ga dical [address] 2020-07-21 2020-07-21 Day [facility] [id number] [facility] 11:27:00 15:00:00 Surgery r Frandy 10 l [facility] 2020-07-21 2020-07-21 Outpatient Raza, MHSE SE [id number] 11:00:00 11:00:00 Chon Viramontes 10 2020-07-21 2020-07-21 Outpatient Raza, MHSE SE [id number] 11:00:00 11:00:00 Chon Viramontes 10 2020-07-21 2020-07-21 Outpatient RAZA, MHSE MHSE [id number] 05:27:00 09:00:[address] [facility] 2020-07-21 2020-07-21 Outpatient Raza, MHSE SE [id number] 05:27:00 09:00:00 Chon Viramontes 10 2020-07-21 2020-07-21 Outpatient Raza, MHSE SE [id number] 05:27:00 09:00:00 Chon Viramontes 10 2020-06-27 2020-06-27 Outpatient ALICE KNIGHT [facility] 10 [id number] Univers 15:40:00 15:40:00 ALICE BILLINGSLEY i [facility] 2020-06-27 2020-06-27 Telemedici Yesika [facility] 1.2.840.114 [id number] Univers 14:00:40 14:20:40 ne Visit Alice Robertson 350.1.13.10 [facility] 4.2.7.2.686 Laverne Olmstead [phone] Ga dical nal [address] 2020-06-11 2020-06-11 (TEL) STLMLC STLMLC [id number] Co mmon 00:00:00 00:00:00 Spirit - CHI [facility] 2020-05-27 2020-05-27 OFFICE STLMLC STLMLC [id number] Co mmon 00:00:00 00:00:00 VISIT Spirit ESTAB PT - CHI LEVEL 4 [facility] 2020-05-21 2020-05-21 Refjocy [facility] 1.2.840.114 [id number] Univers 00:00:00 00:00:00 Jagjit Robertson 350.1.13.10 i ty [facility] 4.2.7.2.[place] [phone] Me dical nal 220 [facility] 2020-04-28 2020-04-28 Bedded [facility] [id number] [facility] 13:36:00 22:19:00 Outpatient r Frandy 09 l [facility] 2020-04-28 2020-04-28 Outpatient PERSON, [facility] [id number] MH 07:36:00 16:19:00 CHON [facility] 2020-04-28 2020-04-28 Outpatient Person, [facility] [id number] 07:36:00 16:19:00 Chon Viramontes 09 2020-04-28 2020-04-28 Outpatient Person, [facility] [id number] 07:36:00 16:19:00 Chon Viramontes 09 2020-04-28 2020-04-28 Outpatient Person, [facility] [id number] 09:30:00 09:30:00 Chon Viramontes 09 2020-04-28 2020-04-28 Outpatient Person, [facility] [id number] 09:30:00 09:30:00 Chon Viramontes 09 2020-04-23 2020-04-23 Glass Mould Cleaner Pc, [facility] Vascular Room 1 - [facility] 1.2.840.114 [id number] [facility] 08:55:46 09:14:02 Visit Addy Fuchs 350.1.13. 10 it[place] 4.2.7.2.[place] [phone] Me dical nal 059 [facility] 2020-04-23 2020-04-23 Outpatient R SHILA [facility] [id number] Univers 09:00:00 09:00:00 ADDY beltran [facility] 2020-04-21 2020-04-21 Office [facility] 1.2.840.114 [id number] Univers 14:20:10 15:10:19 Visit Addy Robertson 350.1.13.10 ity of [place] 4.2.7.2.[place] [phone] Me dical nal 059 [facility] 2020-04-21 2020-04-21 Outpatient R SHILA [facility] [id number] Univers 14:30:00 14:30:00 SENDIL ity [facility] 2020-04-21 2020-04-21 Orders Doctor ARMANDO 1.2.840.114 [id number] Univers 00:00:00 00:00:00 Only Unassigned, REJI 350.1.13.10 ity of [place] [facility] 4.2.7.2.686 Martin as [phone] [facility] [address] [place] 2020-04-15 2020-04-15 (TEL) STLMLC STLMLC [id number] Co mmon 00:00:00 00:00:00 [facility] 2020-04-08 2020-04-08 Outpatient R DAMON AYALAMOYoly [facility] [id number] Univers 13:00:00 13:00:00 JOSE AYALA ity [facility] 2020-04-08 2020-04-08 Outpatient R MATT [facility] [id number] Univers 09:30:00 09:30:00 WENTONG [facility] 2020-04-04 2020-04-04 Laboratory Only, Adc Test [facility] 1.2.840. [id number] Univers 09:07:09 09:22:09 Only Riccardo Jules [id number] it[id number] [phone] [facility] [address] 2020-04-04 2020-04-04 Outpatient R [facility] [id number] Univers 09:15:00 09:15:00 ity of [facility] 2020-03-27 2020-03-27 Office Yesika [facility] 1.2.840.114 [id number] Univers 09:22:19 09:42:19 Visit Alice Robertson [id number] i [id number] [phone] [place]ical nal 085 [facility] 2020-03-27 2020-03-27 Outpatient R ALICE BILLINGSLEY [facility] 10 [id number] Univers 09:20:00 09:20:00 ALICE BILLINGSLEY i ty of [facility] 2020-03-27 2020-03-27 Orders Doctor ARMANDO 1.2.840.114 [id number] Univers 00:00:00 00:00:00 Only Unassigned, REJI [id number] ity of [place] [facility] [id number] [place] [phone] [facility] [address] 2020-03-19 2020-03-19 [facility] 1.2.840.114 [id number] Univers 08:49:11 23:59:00 Encounter Alice Robertson [id number] [id number] [phone] [facility] [address] 2020-03-19 2020-03-19 Outpatient R ALICE BILLINGSLEY [facility] 10 [id number] Univers 00:00:00 00:00:00 ALICE BILLINGSLEY i ty of [facility] 2020-03-17 2020-03-17 Outpatient R [facility] [id number] Univers 14:15:00 14:15:00 ity of [facility] 2020-02-22 2020-02-22 Telephone [facility] [id number] Univers 00:00:00 00:00:00 Jagjit Robertson [id number] i ty of [place] [id number] [facility] [phone] Ga dical nal 220 [facility] 2020-02-20 2020-02-20 OFFICE STLMLC STLMLC [id number] Co mmon 00:00:00 00:00:00 VISIT [facility] PT - CHI LEVEL 4 [facility] 2020-02-11 2020-02-11 (TEL) STLMLC STLMLC [id number] Co mmon 00:00:00 00:00:00 [facility] - CHI [facility] 2020-01-29 2020-01-29 Outpatient [facility] [id number] Common 15:03:00 15:03:[address] [facility] 2020-01-24 2020-01-24 Telephone Anthony Meehan [facility] 1.2.840.114 [id number] Univers 00:00:00 00:00:00 Rex Robertson [id number] i [id number] [phone] Ga dical nal 134 [facility] 2020-01-15 2020-01-15 [facility] [id number] Common 09:30:00 09:30:00 t [employer] [address] [facility] 2020-01-07 2020-01-08 Outpatient nullFlavo Digestive [id number] Memoria 14:26:00 04:59:00 r Disease 08 [facility] 2020-01-07 2020-01-07 Outpatient Thosani, [facility] [id number] 09:26:00 23:59:[address] [place] [address] 2020-01-07 2020-01-07 Outpatient Thosani, [facility] [id number] 09:26:00 23:59:[address] [place] [address] 2020-01-01 2020-01-01 [facility] [id number] Common 12:07:00 12:07:[address] [employer] [address] [facility] 2019-12-25 2019-12-25 Glass Mould Cleaner 2, Adc Lab [facility] [id number] Univers 08:32:19 08:47:19 Visit Jagjit Gutierrez 350.1.13.10 ity of [place] [phone] Ga dical nal 353 [facility] 2019-12-25 2019-12-25 Outpatient R [facility] [id number] Univers 08:30:00 08:30:00 ity of [facility] 2019-12-25 2019-12-25 Orders Doctor ROBERTS 1.2.840.114 [id number] Univers 00:00:00 00:00:00 Only Unassigned, REJI 350.1.13.10 ity of [place] [facility] 4.2.7.2.686 [place] as [phone] [facility] 00[address] [place] 2019-12-19 2019-12-19 Telephone Gutierrez, [facility] [id number] Univers 00:00:00 00:00:00 Wentong [place] 350.1.13.10 i ty of [place] [phone] Ga dical nal 220 [facility] 2019-12-18 2019-12-18 Telephone Gutierrez, [facility] 1.2.144.605 [id number] Univers 00:00:00 00:00:00 Wentong [place] 350.1.13.10 i ty of [place] [phone] Ga dical nal 220 [facility] 2019-12-18 2019-12-18 Telephone Gutierrez, [facility] 1.2.096.022 [id number] Univers 00:00:00 00:00:00 Wentong [place] 350.1.13.10 i ty of [id number] [phone] Ga dical nal 220 [facility] 2019-12-11 2019-12-11 Telephone Gutierrez, [facility] 1.2.444.757 [id number] Univers 00:00:00 00:00:00 Wentong [place] 350.1.13.10 i ty of [place] [phone] Ga dical nal 220 [facility] 2019-12-07 2019-12-07 [facility] [id number] Common 14:05:00 14:05:00 t [employer] [address] [facility] 2019-12-07 2019-12-07 Glass Mould Cleaner 2, Adc Lab [facility] 1.2.840.114 [id number] Univers 08:26:21 08:41:21 Visit Jhoana Serrano 350.1.13.10 ity of [place] [phone] Ga dicme nal 353 [facility] 2019-12-07 2019-12-07 Outpatient R ZACH [facility] [id number] Univers 08:30:00 08:30:00 JHOANA ity [facility] 2019-12-06 2019-12-06 Orders Doctor ARMANDO 1.2.840.114 [id number] Univers 00:00:00 00:00:00 Only Unassigned, REJI 350.1.13.10 ity of [place] [facility] 4.2.7.2.686 [place] as [phone] [address] 2019-12-06 2019-12-06 Telephone [facility] 1.2.075.216 [id number] Univers 00:00:00 00:00:00 Wentong [place] 350.1.13.10 i ty of [place] 4[place] [phone] Ga dical [address] 2019-12-05 2019-12-05 Outpatient R [facility] [id number] Univers 08:45:00 08:45:00 ity [facility] 2019-12-04 2019-12-04 Office [facility] 1.2.840.114 [id number] Univers 10:19:00 12:15:33 Visit Jagjit Robertson 350.1.13.10 i ty of [place] [id number] [phone] Ga dic[address] 2019-12-04 2019-12-04 Outpatient R MATT [facility] [id number] Univers 10:30:00 10:30:00 [facility] 2019-11-28 2019-11-28 Telephone [facility] 1.2.901.532 [id number] Univers 00:00:00 00:00:00 Jagjit Robertson 350.1.13.10 i ty of [place] 4.2.7.2.[place] [phone] Ga dical nal [address] [place] [address] 2019-11-27 2019-11-27 [facility] [id number] Common 14:03:00 14:03:00 t [employer] [facility] it [facility] 2019-11-27 2019-11-27 Out[facility] 31 [id number] Common 13:59:00 13:59:[address] [facility] 2019-11-24 2019-11-24 [facility] [id number] Common 10:12:00 10:12:[address] [facility] 2019-11-22 2019-11-22 Telephone Gutierrez, [facility] 1.2.450.262 [id number] Univers 00:00:00 00:00:00 Wentong [place] 350.1.13.10 i ty of [place] [phone] Ga dical nal 220 [facility] 2019-11-20 2019-11-20 Out[facility] [id number] Common 17:23:00 17:23:[address] [facility] 2019-11-20 2019-11-20 Out[facility] 31 [id number] Common 14:15:00 14:15:[address] [facility] 2019-11-20 2019-11-20 Telephone Gutierrez, [facility] 1.2.893.306 [id number] Univers 00:00:00 00:00:00 Wentong [place]vada 350.1.13.10 i ty of [place] 4.[place].7.2.[place] [phone] Ga dical nal 220 [facility] 2019-11-15 2019-11-15 Telephone Gutierrez, [facility] 1.2.771.659 [id number] Univers 00:00:00 00:00:00 Wentong [place]vada 350.1.13.10 i ty of [place] 4.[place].2.[place] [phone] Ga dical nal 220 [facility] 2019-10-30 2019-10-31 Inpatient [facility] [id number] Memoria 10:24:00 22:23:00 viridiana Wise 07 l [facility] 2019-10-30 2019-10-31 Outpatient SHIRLENE Person [facility] [id number] 05:24:00 17:23:00 Chon Viramontes 07 2019-10-30 2019-10-31 Outpatient Raza, SE [place] [id number] 05:24:00 17:23:00 Chon Viramontes 07 2019-10-29 2019-10-30 Outpatient nullFlavo Digestive [id number] Memoria 14:22:00 04:59:[address] 2019-10-29 2019-10-29 Outpatient Thosani, [facility] [id number] 09:22:00 23:59:[address] [place] [address] 2019-10-29 2019-10-29 Outpatient Thosani, [facility] [id number] 09:22:00 23:59:[address] [place] [address] 2019 2019 Bedded [facility]Flavo [facility] [id number] Memoria 11:47:00 19:00:00 Outpatient r [address] 2019 2019 Outpatient THOSANI, [facility] 7506 [facility] 06:47:00 14:00:00 MCKENZIE 2019 2019 Outpatient Thosani, [facility] [id number] 06:47:00 14:00:[address] [place] [address] 2019 2019 Outpatient Thosani, [facility] [id number] 06:47:00 14:00:[address] [place] [address] 2019-10-05 2019-10-05 [facility] [id number] Common 09:00:00 09:00:[address] [facility] 2019-10-05 2019-10-05 [facility] [id number] Common 09:00:00 09:00:[address] [facility] 2019-08-23 2019-08-23 Out[facility] [id number] Common 11:24:00 11:24:[address] [facility] 2019-08-08 2019-08-08 Telemedicraghu Gutierrez [facility] 1.2.840.114 [id number] Univers 08:06:51 13:26:07 ne Visit Jagjit Robertson 350.1.13.10 ity [place] 4.2.7.2.686 Laverne candelario Professio [phone] Me dical nal [address] [place] [address] 2019-08-08 2019-08-08 Outpatient R MATT [facility] [id number] Univers 08:30:00 08:30:00 WENTGOODELL ity [facility] 2019-08-08 2019-08-08 Telephone Matt [facility] 1.2.195.506 [id number] Univers 00:00:00 00:00:00 Jagjit Robertson 350.1.13.10 i ty [place] 4.2.7.2.686 Laverne candelario Professio [phone] Ga dical nal [address] [place] [address] 2019-08-02 2019-08-03 Outpatient nullFlavo [facility] 8829 2 Memoria 16:29:11 04:59:59 r [facility] 2019-08-02 2019-08-02 Outpatient Fadia, [id number] 11:29:11 23:59:59 Charles 8 2019-08-02 2019-08-02 Outpatient Fadia, [id number] 11:29:11 23:59:59 Charles 8 2019-08-01 2019-08-01 [facility] [id number] Common 09:45:00 09:45:00 t [employer] [facility] it [facility] 2019-06-28 2019-06-29 Outpt Diag nullFlavo [facility] [id number] Memoria 12:22:00 05:59:00 Services r Outpatient 00 l [facility] 2019-06-28 2019-06-28 Outpatient ALBERTA PersonOIP [id number] 06:22:00 23:59:00 Chon Viramontes 00 2019-06-28 2019-06-28 Outpatient Raza MHOIP MHOIP [id number] 06:22:00 23:59:00 Chon Viramontes 00 2019-05-31 2019-05-31 [facility] Radiology [facility] 1.2.840.114 [id number] Univers 10:49:00 23:59:00 Encounter SPECIALTY 350.1.13.10 ity of [facility] 4.2.7.2.686 [facility] AT [phone] Ga kena WILSON 4 [facility] 2019-05-07 2019-05-07 Outpatient Medhatshannan Janiet [id number] Common 09:35:00 09:35:00 t [employer] [address] [facility] 2019-04-04 2019-04-04 Outpatient R MATT, [facility] [id number] Univers 14:20:00 16:43:26 WENTONG ity [facility] 2019-03-30 2019-03-30 Outpatient Medhatospor Janeit [id number] Common 09:45:00 09:45:00 t [employer] [address] [facility] 2019-02-13 2019-02-13 Ambulatory nullFlavo MNA [id number] Memoria 18:30:00 18:30:00 Pre-Reg r Neurology 00 l Jasmin Wise 2019-02-13 2019-02-13 Outpatient Laxmi MHMISCHER MHMISCHER [id number] 13:30:00 13:30:00 Horace 00 Partha 2019-02-13 2019-02-13 Outpatient Laxmi MHMISCHER MHMISCHER [id number] 13:30:00 13:30:00 Horace 00 [facility] 2019-01-30 2019-01-30 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 10 ity of [place] 4.2.7.2.686 [facility] [phone] [facility] [address] 2019-01-30 2019-01-30 Orders Doctor ARMANDO 1.2.840.114 [id number] Univers 00:00:00 00:00:00 Only Unassigned, REJI 350.1.13.10 ity of [place] [facility] 4.2.7.2.686 [facility] [phone] [facility] [address] 2019-01-29 2019-01-29 Telephone Heather Serrano 1.2.954.102 [id number] Univers 00:00:00 00:00:00 Gus Zepeda 350.1.13.10 i ty of [place].2.[place] [phone] [facility] [address] 2019-01-18 2019-01-18 Outpatient Medhatshannan Janiet [id number] Common 08:39:00 08:39:00 t [employer] [address] [facility] 2019-01-18 2019-01-18 Telephone Yesika [facility] 1.2.177.121 [id number] Univers 00:00:00 00:00:00 Alice Robertson 350.1.13.10 i ty of [place].7.2.[place] [facility] [phone] Ga dical nal 5 [facility] 2019-01-17 2019-01-17 Outpatient Janie iLmat [id number] Common 09:33:00 09:33:00 t [employer] [address] [facility] 2019-01-17 2019-01-17 [facility] [id number] Univers 08:00:00 08:00:00 MARY KATE ity [facility] 2019-01-05 2019-01-05 Outpatient [facility] [id number] Univers 13:30:00 14:46:04 MARY KATE ity [facility] 2019-01-05 2019-01-05 Office Devan [facility] 1.2.840.114 [id number] Univers 13:04:44 14:46:04 Visit [facility] 350.1.13.10 it y of [place] 4[place]2.[place].2.[place] Scal[place] - [phone] Med ical [facility] [address] 2019-01-05 2019-01-05 Orders Doctor ARMANDO 1.2.840.114 [id number] Univers 00:00:00 00:00:00 Only Unassigned, REJI 350.1.13.10 ity of [place] [facility] 4.2.7.2.686 [place] as [phone] [facility] [address]9 [address] 2019-01-04 2019-01-04 Office [facility] 1.2.840.114 [id number] [facility] 12:51:19 13:21:19 Visit Alice Robertson 350.1.13.10 i [facility] [place] 4.2.7.2.686 Laverne Olmstead [phone] Ga dicshanita nal 085 [facility] 2018-12-29 2018-12-29 Out[facility] [id number] Common 13:30:00 13:30:[address] [facility] 2018-12-29 2018-12-29 Out[facility] [id number] Common 09:30:00 09:30:[address] [facility] 2018-12-19 2018-12-19 Outpatient [facility] [id number] Common 08:15:00 08:15:[address] [facility] 2018-11-28 2018-11-28 Outpatient [facility] [id number] Common 09:15:00 09:15:[address] [facility] 2018-08-18 2018-08-18 Out[facility] [id number] Common 09:45:00 09:45:[address] [facility] 2018-07-31 2018-07-31 Out[facility] [id number] Common 11:22:00 11:22:00 t Bone Bone [facility] Sp[facility] t [facility] 2018-07-26 2018-07-26 [facility] [id number] Common 08:15:00 08:15:[address] [facility] 2018-07-19 2018-07-19 Out[facility] [id number] Common 09:52:00 09:52:[address] [facility] 2018-07-17 2018-07-17 Out[facility] [id number] Common 09:30:00 09:30:[address] Family [facility] 2018-07-14 2018-07-14 [facility] [id number] Common 10:49:00 10:49:00 t Bone Bone and Spiri t and Joint [facility] 2018-07-11 2018-07-11 [facility] [id number] Common 14:30:00 14:30:00 t Bone Bone and Spiri t and Joint [facility] 2018-07-05 2018-07-05 [facility] [id number] Common 20:40:00 20:40:00 t Bone Bone and Spiri t and Joint [facility] 2018-07-05 2018-07-05 [facility] [id number] Common 10:02:00 10:02:00 t Bone Bone and Spiri t and Joint [facility] 2018-07-04 2018-07-04 [facility] [id number] Common 08:00:00 08:00:00 t Bone Bone and Spiri t and Joint [facility] 2018-06-26 2018-06-26 [facility] [id number] Common 11:30:00 11:30:[address] [facility] 2018-06-22 2018-06-22 [facility] [id number] Common 11:03:00 11:03:[address] [facility] 2018-06-13 2018-06-13 Out[facility] [id number] Common 13:15:00 13:15:[address] [facility] 2018-02-09 2018-02-09 Out[facility] [id number] Common 10:03:00 10:03:[address] [facility] 2018-02-07 2018-02-07 Out[facility] [id number] Common 09:00:00 09:00:[address] [facility] 2017-12-23 2017-12-23 Outpatient [facility] [id number] Common 10:00:00 10:00:[address] [facility] 2017-09-20 2017-09-20 Out[facility] [id number] Common 09:00:00 09:00:[address] [facility] 2017-06-08 2017-06-09 Inpatient [facility] [id number] Memoria 11:41:00 19:59:00 r Frandy 02 [facility] 2017-06-08 2017-06-09 Outpatient [facility] [id number] 05:41:00 13:59:[address] [facility] 02 [facility] 2017-06-08 2017-06-09 Outpatient [facility] [id number] 05:41:00 13:59:00 [facility] 2014-05-22 2014-05-23 Inpatient nullFlavo [facility] [id number] Memoria 11:40:00 20:08:00 r Frandy [address] [facility] 2014-05-22 2014-05-23 Outpatient Bindal, 2.16.840. 2.16.840.1. 3 [id number] 05:40:00 14:08:00 Ananda Chang [id number] 3.615.0.1 5.0.784 34 0505-01-07 2014-05-23 Outpatient Bindal, 2.16.840. 2.16.840.1. 3 [id number] 05:40:00 14:08:00 Ananda Chang [id number]. [id number] 3.615.0.1 5.0.292 70 7057-12-08 2014-04-22 OBS Day [facility]Flavo [facility] [id number] Memoria 15:50:00 19:05:00 Surgery r Frandy [address] [facility] 2014-04-22 2014-04-22 Outpatient Bindal, 2.16.840. 2.16.840.1. 3 [id number] 09:50:00 13:05:00 Ananda Chang [id number] 3.615.0.1 5.0.017 34 6806-12-08 2014-04-22 Outpatient Bindshanita, 2.16.840. 2.16.840.1. 3 [id number] 09:50:00 13:05:00 Ananda Chang [id number]. [id number] 3.615.0.1 5.0.101 01 Results Test Description Test Time Test Comments Results Result Comments Source POCT HEMOGLOBIN A1C TEST 2022-06-16 17:06:00 Test Item Value Reference Range Interpretation Comme nts POCT HBA1C (test code = 4548-4) 6.9 % 4-6 A Lab Interpretation (test code = 98090-6) Abnormal [facility] [id number] 17:06:00 Test Item Value Reference Range Interpretation Comments POCT HBA1C (test code = 4548-4) 6.9 % 4-6 A Lab Interpretation (test code = Abnormal 42439-6) [facility] HospitalPancreatic elastase, [id number] 20:54:14 Test Item Value Reference Range Interpretation Comments PANCREATIC ELAST, FECES See_Comment L Int erpretive (test code = 1951) Informati on:>200 mcg/g ?Astlhe08 0-200 mcg/g ? ? Sligh t to Moderate exocri ne pancreatic insufficiency<1 00 mcg/g ?Se pro exocrine pancre atic insufficiency ?TESTING PERFOR MED AT [facility] ? ? ?[address], [address], [address] 78 8 ?CLIA NO: [id number] ? [Auto mated message] The sy stem which generated this result transmit jose reference range : >200 mcg/g. The refe rence range was not u sed to interpret this result as normal/abnor mal. Lab Interpretation Abnormal (test code = 75902-4) [facility], EIA, [id number] 19:53:05 Test Item Value Reference Range Interpretation Comments H. PYLORI AG, STOOL (test code = NEGATIVE NEGATIVE 2215) [facility] HEMOGLOBIN A1C [id number] 19:32:00 Test Item Value Reference Range Interpretation Comments POCT HBA1C (test code = 4548-4) 6.8 % 4-6 A Lab Interpretation (test code = Abnormal 87584-4) [facility]2021-05-19 09:55:00 Test Item Value Reference Range Interpretation Comments Glucose Lvl (test code = Glucose Lvl) 113 70-99 [facility]2021-05-19 09:55:00 Test Item Value Reference Range Interpretation Comments BUN (test code = BUN) 13 7-22 [place] 559711-05-19 09:55:00 Test Item Value Reference Range Interpretation Comments Creatinine Lvl (test code = Creatinine 0.76 0.50-1.40 Lvl) [facility]2021-05-19 09:55:00 Test Item Value Reference Range Interpretation Comments Sodium Lvl (test code = Sodium Lvl) 138 135-145 [facility]2021-05-19 09:55:00 Test Item Value Reference Range Interpretation Comments Potassium Lvl (test code = Potassium 4.5 3.5-5.1 Lvl) [facility]2021-05-19 09:55:00 Test Item Value Reference Range Interpretation Comments Chloride Lvl (test code = Chloride Lvl) 105 95-109 [facility]2021-05-19 09:55:00 Test Item Value Reference Range Interpretation Comments CO2 (test code = CO2) 27 24-32 [place] 559711-05-19 09:55:00 Test Item Value Reference Range Interpretation Comments Calcium Lvl (test code = Calcium Lvl) 8.8 8.5-10.5 [facility]2021-05-19 09:55:00 Test Item Value Reference Range Interpretation Comments AGAP (test code = AGAP) 10.5 10.0-20.0 [facility]2021-05-19 09:55:00 Test Item Value Reference Range Interpretation Comments eGFR (test code = eGFR) 84 [id number] 09:55:00 Test Item Value Reference Range Interpretation Comments Segs (test code = Segs) 81.3 45.0-75.0 [place] 384191-05-19 09:55:00 Test Item Value Reference Range Interpretation Comments Lymphocytes (test code = Lymphocytes) 14.2 20.0-40.0 [place] 384191-05-19 09:55:00 Test Item Value Reference Range Interpretation Comments Monocytes (test code = Monocytes) 4.4 2.0-12.0 [place] [address]-05-19 09:55:00 Test Item Value Reference Range Interpretation Comments Basophils (test code = 0.1 See_Comment [Aut omated message] The Basophils) system which ge nerated this result tra nsmitted reference range : <=1.0. The reference r zechariah was not used to int erpret this result as normal/abnormal . [place] 384191-05-19 09:55:00 Test Item Value Reference Range Interpretation Comments Neutrophils # (test code = Neutrophils 12.1 1.5-8.1 #) [place] 384191-05-19 09:55:00 Test Item Value Reference Range Interpretation Comments Lymphocytes # (test code = Lymphocytes 2.1 1.0-5.5 #) [place] 384191-05-19 09:55:00 Test Item Value Reference Range Interpretation Comments Monocytes # (test code 0.7 See_Comment [Aut omated message] The = Monocytes #) system which generated this result tra nsmitted reference range : <=0.8. The reference r zechariah was not used to int erpret this result as normal/abnormal . [place] 384191-05-19 09:55:00 Test Item Value Reference Range Interpretation Comments WBC (test code = WBC) 14.9 3.7-10.4 [place] [address]-05-19 09:55:00 Test Item Value Reference Range Interpretation Comments RBC (test code = RBC) 3.89 4.20-5.40 [place] [address]-05-19 09:55:00 Test Item Value Reference Range Interpretation Comments Hgb (test code = Hgb) 11.5 12.0-16.0 [place] [address]-05-19 09:55:00 Test Item Value Reference Range Interpretation Comments Hct (test code = Hct) 36.2 36.0-48.[address]05-19 09:55:00 Test Item Value Reference Range Interpretation Comments MCV (test code = MCV) 93.1 80.0-98.0 [place] [address]-05-19 09:55:00 Test Item Value Reference Range Interpretation Comments MCH (test code = MCH) 29.6 pg 27.0-31.0 [place] [address]-05-19 09:55:00 Test Item Value Reference Range Interpretation Comments MCHC (test code = MCHC) 31.8 32.0-36.0 [place] [address]-05-19 09:55:00 Test Item Value Reference Range Interpretation Comments RDW (test code = RDW) 15.9 11.5-14.[address]05[address]19 09:55:00 Test Item Value Reference Range Interpretation Comments Platelet (test code = Platelet) 383 131-450 [place] [address]-05-19 09:55:00 Test Item Value Reference Range Interpretation Comments MPV (test code = MPV) 7.3 7.4-10.4 [place] 559711-05-19 09:55:00 Test Item Value Reference Range Interpretation Comments Glucose Lvl (test code = Glucose Lvl) 113 70-99 [place] 559711-05-19 09:55:00 Test Item Value Reference Range Interpretation Comments BUN (test code = BUN) 13 7-22 [place] [id number] 09:55:00 Test Item Value Reference Range Interpretation Comments Creatinine Lvl (test code = Creatinine 0.76 0.50-1.40 Lvl) [place] 559711-05-19 09:55:00 Test Item Value Reference Range Interpretation Comments Sodium Lvl (test code = Sodium Lvl) 138 135-145 [place] [address]-05-19 09:55:00 Test Item Value Reference Range Interpretation Comments Potassium Lvl (test code = Potassium 4.5 3.5-5.1 Lvl) [place] [address]-05-19 09:55:00 Test Item Value Reference Range Interpretation Comments Chloride Lvl (test code = Chloride Lvl) 105 95-109 [place] 559711-05-19 09:55:00 Test Item Value Reference Range Interpretation Comments CO2 (test code = CO2) 27 24-32 [place] 559711-05-19 09:55:00 Test Item Value Reference Range Interpretation Comments Calcium Lvl (test code = Calcium Lvl) 8.8 8.5-10.5 [place] 559711-05-19 09:55:00 Test Item Value Reference Range Interpretation Comments AGAP (test code = AGAP) 10.5 10.0-20.0 [place] 559711-05-19 09:55:00 Test Item Value Reference Range Interpretation Comments eGFR (test code = eGFR) 84 [place] 384191-05-19 09:55:00 Test Item Value Reference Range Interpretation Comments Segs (test code = Segs) 81.3 45.0-75.0 [place] 384191-05-19 09:55:00 Test Item Value Reference Range Interpretation Comments Lymphocytes (test code = Lymphocytes) 14.2 20.0-40.0 [facility]dxtmmlSQPUQZYDET5407-27-[facility] 09:55:00 Test Item Value Reference Range Interpretation Comments Monocytes (test code = Monocytes) 4.4 2.0-12.0 [place] 384191-05-19 09:55:00 Test Item Value Reference Range Interpretation Comments Basophils (test code = 0.1 See_Comment [Aut omated message] The Basophils) system which ge nerated this result tra nsmitted reference range : <=1.0. The reference r zechariah was not used to int erpret this result as normal/abnormal . [facility] CenterDhluuypXJDRSDCWZC6010-86-47 09:55:00 Test Item Value Reference Range Interpretation Comments Neutrophils # (test code = Neutrophils 12.1 1.5-8.1 #) [place] 384191-05-19 09:55:00 Test Item Value Reference Range Interpretation Comments Lymphocytes # (test code = Lymphocytes 2.1 1.0-5.5 #) [place] 384191-05-19 09:55:00 Test Item Value Reference Range Interpretation Comments Monocytes # (test code 0.7 See_Comment [Aut omated message] The = Monocytes #) system which generated this result tra nsmitted reference range : <=0.8. The reference r zechariah was not used to int erpret this result as normal/abnormal . [place] 384191-05-19 09:55:00 Test Item Value Reference Range Interpretation Comments WBC (test code = WBC) 14.9 3.7-10.4 [place] 384191-05-19 09:55:00 Test Item Value Reference Range Interpretation Comments RBC (test code = RBC) 3.89 4.20-5.40 [place] 384191-05-19 09:55:00 Test Item Value Reference Range Interpretation Comments Hgb (test code = Hgb) 11.5 12.0-16.0 [place] 384191-05-19 09:55:00 Test Item Value Reference Range Interpretation Comments Hct (test code = Hct) 36.2 36.0-48.0 [place] [address]-05-19 09:55:00 Test Item Value Reference Range Interpretation Comments MCV (test code = MCV) 93.1 80.0-98.0 [place] 384191-05-19 09:55:00 Test Item Value Reference Range Interpretation Comments MCH (test code = MCH) 29.6 pg 27.0-31.0 [facility] CenterDjjeuqkXXGYBVQWPR4050-10-31 09:55:00 Test Item Value Reference Range Interpretation Comments MCHC (test code = MCHC) 31.8 32.0-36.0 [facility] CenterWfugcudDTWXZYAYOE2113-71-39 09:55:00 Test Item Value Reference Range Interpretation Comments RDW (test code = RDW) 15.9 11.5-14.5 [place] 384191-05-19 09:55:00 Test Item Value Reference Range Interpretation Comments Platelet (test code = Platelet) 383 133-450 [facility] CenterQcqafdzESGJRKQDHU1114-04-02 09:55:00 Test Item Value Reference Range Interpretation Comments MPV (test code = MPV) 7.3 7.4-10.4 [facility]YetxugnPWGDYCRCWV2397-62-67 15:26:00 Test Item Value Reference Range Interpretation Comments Coronavirus (COVID-19) Not Detected SHARMIN (test code = *NA*(09/26/20 10:26 Coronavirus (COVID-19) AM) SHARMIN) [facility] CenterDzgavgbPBWLHWGCYP5662-67-39 15:26:00 Test Item Value Reference Range Interpretation Comments Coronavirus (COVID-19) Not Detected SHARMIN (test code = *NA*(09/26/20 10:26 Coronavirus (COVID-19) AM) SHARMIN) [facility]dl[facility]wzkZGEQEWUWHH7431-44-59 14:36:00 Test Item Value Reference Range Interpretation Comments Lymphocytes # (test code = Lymphocytes 2.2 1.0-5.5 #) [facility] CenterSjlzylfPKDGARSFFV3023-43-26 14:36:00 Test Item Value Reference Range Interpretation Comments Monocytes # (test code 0.5 See_Comment [Aut omated message] The = Monocytes #) system which generated this result tra nsmitted reference range : <=0.8. The reference r zechariah was not used to int erpret this result as normal/abnormal . [facility] CenterYwhrnzjOYUMWKBOBI8345-83-38 14:36:00 Test Item Value Reference Range Interpretation Comments Eosinophils # (test code 0.1 See_Comment [A utomated message] The = Eosinophils #) system whic h generated this result tra nsmitted reference range : <=0.5. The reference r zechariah was not used to int erpret this result as normal/abnormal . [facility] CenterNashhrvVQKHTBZOWQ2565-38-54 14:36:00 Test Item Value Reference Range Interpretation Comments Basophils # (test code 0.1 See_Comment [Aut omated message] The = Basophils #) system which generated this result tra nsmitted reference range : <=0.2. The reference r zechariah was not used to int erpret this result as normal/abnormal . [facility] SMISWPPYI7874-42-80 14:36:00 Test Item Value Reference Range Interpretation Comments Hgb A1C (test code = Hgb A1C) 6.4 [facility] AND [id number] 14:36:00 Test Item Value Reference Range Interpretation Comments UA Sq Epi (test code = UA Sq Moderate /LPF Epi) [facility] AND [id number] 14:36:00 Test Item Value Reference Range Interpretation Comments UA WBC (test code = 8 See_Comment [Automa jose message] The UA WBC) system which ge nerated this result transmit jose reference range : <=5. The reference range was not used to interpr et this result as scott l/abnormal. [facility] AND [id number] 14:36:00 Test Item Value Reference Range Interpretation Comments UA RBC (test code = 4 See_Comment [Automa jose message] The UA RBC) system which ge nerated this result transmit jose reference range : <=2. The reference range was not used to interpr et this result as scott l/abnormal. [facility] AND [id number] 14:36:00 Test Item Value Reference Range Interpretation Comments UA Bacteria (test code = UA Occasional /HPF Bacteria) [facility] AND [id number] 14:36:00 Test Item Value Reference Range Interpretation Comments UA Color (test code = Yellow *NA*(09/18/20 9:36 UA Color) AM) [facility] AND [id number] 14:36:00 Test Item Value Reference Range Interpretation Comments UA Turbidity (test code = Clear (09/18/20 9:36 UA Turbidity) AM) [facility] AND [id number] 14:36:00 Test Item Value Reference Range Interpretation Comments UA Spec Grav (test code = UA Spec 1.020 1 Grav) [facility] AND [id number] 14:36:00 Test Item Value Reference Range Interpretation Comments UA pH (test code = UA pH) 6.5 1 5.0-8.0 [facility] AND [id number] 14:36:00 Test Item Value Reference Range Interpretation Comments UA Protein (test code Negative (09/18/20 9:36 = UA Protein) AM) [facility] AND [id number] 14:36:00 Test Item Value Reference Range Interpretation Comments UA Glucose (test code Negative (09/18/20 9:36 = UA Glucose) AM) [facility] AND [id number] 14:36:00 Test Item Value Reference Range Interpretation Comments UA Ketones (test code Negative *NA*(09/18/20 = UA Ketones) 9:36 AM) [facility] AND [id number] 14:36:00 Test Item Value Reference Range Interpretation Comments UA Bili (test code = Negative *NA*(09/18/20 UA Bili) 9:36 AM) [facility] AND [id number] 14:36:00 Test Item Value Reference Range Interpretation Comments UA Blood (test code = Negative (09/18/20 9:36 UA Blood) AM) [facility] AND [id number] 14:36:00 Test Item Value Reference Range Interpretation Comments UA Urobilinogen (test code = UA 0.2 0.1-1.0 Urobilinogen) [facility] AND [id number] 14:36:00 Test Item Value Reference Range Interpretation Comments UA Nitrite (test code Negative (09/18/20 9:36 = UA Nitrite) AM) [facility] AND [id number] 14:36:00 Test Item Value Reference Range Interpretation Comments UA Leuk Est (test code Small *ABN*(09/18/20 9:36 = UA Leuk Est) AM) [facility] [id number] 14:36:00 Test Item Value Reference Range Interpretation Comments MRSA by PCR (test Negative (09/18/20 9:36 code = MRSA by PCR) AM) [facility] [id number] 14:36:00 Test Item Value Reference Range Interpretation Comments Glucose Lvl (test code = Glucose Lvl) 127 70-99 [facility]2021-05-06 14:36:00 Test Item Value Reference Range Interpretation Comments BUN (test code = BUN) 9 7-22 [facility]2021-05-06 14:36:00 Test Item Value Reference Range Interpretation Comments Creatinine Lvl (test code = Creatinine 0.63 0.50-1.40 Lvl) [facility]2021-05-06 14:36:00 Test Item Value Reference Range Interpretation Comments Sodium Lvl (test code = Sodium Lvl) 136 135-145 [facility]2021-05-06 14:36:00 Test Item Value Reference Range Interpretation Comments Potassium Lvl (test code = Potassium 4.1 3.5-5.1 Lvl) [facility]2021-05-06 14:36:00 Test Item Value Reference Range Interpretation Comments Chloride Lvl (test code = Chloride Lvl) 102 95-109 [facility]2021-05-06 14:36:00 Test Item Value Reference Range Interpretation Comments CO2 (test code = CO2) 31 24-32 [facility]2021-05-06 14:36:00 Test Item Value Reference Range Interpretation Comments Calcium Lvl (test code = Calcium Lvl) 9.2 8.5-10.5 [facility]2021-05-06 14:36:00 Test Item Value Reference Range Interpretation Comments AGAP (test code = AGAP) 7.1 10.0-20.0 [place] 559711-05-06 14:36:00 Test Item Value Reference Range Interpretation Comments eGFR (test code = eGFR) 96 [place] 384191-05-06 14:36:00 Test Item Value Reference Range Interpretation Comments WBC (test code = WBC) 7.4 3.7-10.4 [place] 384191-05-06 14:36:00 Test Item Value Reference Range Interpretation Comments RBC (test code = RBC) 4.66 4.20-5.40 [place] 384191-05-06 14:36:00 Test Item Value Reference Range Interpretation Comments Hgb (test code = Hgb) 14.0 12.0-16.0 [place] [address]-05-06 14:36:00 Test Item Value Reference Range Interpretation Comments Hct (test code = Hct) 42.4 36.0-48.0 [place] 384191-05-06 14:36:00 Test Item Value Reference Range Interpretation Comments MCV (test code = MCV) 91.0 80.0-98.0 [place] [address]-05-06 14:36:00 Test Item Value Reference Range Interpretation Comments MCH (test code = MCH) 30.1 pg 27.0-31.0 [place] [address]-05-06 14:36:00 Test Item Value Reference Range Interpretation Comments MCHC (test code = MCHC) 33.1 32.0-36.0 [place] [address]-05-06 14:36:00 Test Item Value Reference Range Interpretation Comments RDW (test code = RDW) 15.5 11.5-14.5 [place] [address]-05-06 14:36:00 Test Item Value Reference Range Interpretation Comments Platelet (test code = Platelet) 357 133-450 [place] 384191-05-06 14:36:00 Test Item Value Reference Range Interpretation Comments MPV (test code = MPV) 7.2 7.4-10.4 [place] [address]-05-06 14:36:00 Test Item Value Reference Range Interpretation Comments PT (test code = PT) 13.3 s 12.0-14.7 [place] 384191-05-06 14:36:00 Test Item Value Reference Range Interpretation Comments INR (test code = INR) 1.02 1 0.85-1.17 [place] 384191-05-06 14:36:00 Test Item Value Reference Range Interpretation Comments PTT (test code = PTT) 32.9 s 22.9-35.8 [place] 384191-05-06 14:36:00 Test Item Value Reference Range Interpretation Comments Segs (test code = Segs) 60.7 45.0-75.0 [place] 384191-05-06 14:36:00 Test Item Value Reference Range Interpretation Comments Lymphocytes (test code = Lymphocytes) 29.8 20.0-40.0 [place] 384191-05-06 14:36:00 Test Item Value Reference Range Interpretation Comments Monocytes (test code = Monocytes) 7.4 2.0-12.0 [place] 384191-05-06 14:36:00 Test Item Value Reference Range Interpretation Comments Eosinophils (test code = 1.3 See_Comment [A utomated message] The Eosinophils) system which ge nerated this result tra nsmitted reference range : <=4.0. The reference r zechariah was not used to int erpret this result as normal/abnormal . [place] 384191-05-06 14:36:00 Test Item Value Reference Range Interpretation Comments Basophils (test code = 0.8 See_Comment [Aut omated message] The Basophils) system which ge nerated this result tra nsmitted reference range : <=1.0. The reference r zechariah was not used to int erpret this result as normal/abnormal . [place] 384191-05-06 14:36:00 Test Item Value Reference Range Interpretation Comments Neutrophils # (test code = Neutrophils 4.5 1.5-8.1 #) [place] 384191-05-06 14:36:00 Test Item Value Reference Range Interpretation Comments Lymphocytes # (test code = Lymphocytes 2.2 1.0-5.5 #) [place] 384191-05-06 14:36:00 Test Item Value Reference Range Interpretation Comments Monocytes # (test code 0.5 See_Comment [Aut omated message] The = Monocytes #) system which generated this result tra nsmitted reference range : <=0.8. The reference r zechariah was not used to int erpret this result as normal/abnormal . [id number] 14:36:00 Test Item Value Reference Range Interpretation Comments Eosinophils # (test code 0.1 See_Comment [A utomated message] The = Eosinophils #) system whic h generated this result tra nsmitted reference range : <=0.5. The reference r zechariah was not used to int erpret this result as normal/abnormal . [facility] HospitalVnricthBPPVPSHSDS5786-35-66 14:36:00 Test Item Value Reference Range Interpretation Comments Basophils # (test code 0.1 See_Comment [Aut omated message] The = Basophils #) system which generated this result tra nsmitted reference range : <=0.2. The reference r zechariah was not used to int erpret this result as normal/abnormal . [facility] [id number] 14:36:00 Test Item Value Reference Range Interpretation Comments Hgb A1C (test code = Hgb A1C) 6.4 [facility]ann[facility] AND [id number] 14:36:00 Test Item Value Reference Range Interpretation Comments UA Sq Epi (test code = UA Sq Moderate /LPF Epi) [facility] AND [id number] 14:36:00 Test Item Value Reference Range Interpretation Comments UA WBC (test code = 8 See_Comment [Automa jose message] The UA WBC) system which ge nerated this result transmit jose reference range : <=5. The reference range was not used to interpr et this result as scott l/abnormal. [facility] [id number] 14:36:00 Test Item Value Reference Range Interpretation Comments UA RBC (test code = 4 See_Comment [Automa jose message] The UA RBC) system which ge nerated this result transmit jose reference range : <=2. The reference range was not used to interpr et this result as scott l/abnormal. [facility] [id number] 14:36:00 Test Item Value Reference Range Interpretation Comments UA Bacteria (test code = UA Occasional /HPF Bacteria) [facility] [id number] 14:36:00 Test Item Value Reference Range Interpretation Comments UA Color (test code = Yellow *NA*(09/18/20 9:36 UA Color) AM) [facility] AND [id number] 14:36:00 Test Item Value Reference Range Interpretation Comments UA Turbidity (test code = Clear (09/18/20 9:36 UA Turbidity) AM) [facility] AND [id number] 14:36:00 Test Item Value Reference Range Interpretation Comments UA Spec Grav (test code = UA Spec 1.020 1 Grav) [facility] AND [id number] 14:36:00 Test Item Value Reference Range Interpretation Comments UA pH (test code = UA pH) 6.5 1 5.0-8.0 [facility] AND [id number] 14:36:00 Test Item Value Reference Range Interpretation Comments UA Protein (test code Negative (09/18/20 9:36 = UA Protein) AM) [facility] AND [id number] 14:36:00 Test Item Value Reference Range Interpretation Comments UA Glucose (test code Negative (09/18/20 9:36 = UA Glucose) AM) [facility] AND [id number] 14:36:00 Test Item Value Reference Range Interpretation Comments UA Ketones (test code Negative *NA*(09/18/20 = UA Ketones) 9:36 AM) [facility] AND [id number] 14:36:00 Test Item Value Reference Range Interpretation Comments UA Bili (test code = Negative *NA*(09/18/20 UA Bili) 9:36 AM) [facility] AND [id number] 14:36:00 Test Item Value Reference Range Interpretation Comments UA Blood (test code = Negative (09/18/20 9:36 UA Blood) AM) [facility] AND [id number] 14:36:00 Test Item Value Reference Range Interpretation Comments UA Urobilinogen (test code = UA 0.2 0.1-1.0 Urobilinogen) [facility] AND [id number] 14:36:00 Test Item Value Reference Range Interpretation Comments UA Nitrite (test code Negative (09/18/20 9:36 = UA Nitrite) AM) [facility] AND [id number] 14:36:00 Test Item Value Reference Range Interpretation Comments UA Leuk Est (test code Small *ABN*(09/18/20 9:36 = UA Leuk Est) AM) [facility] [id number] 14:36:00 Test Item Value Reference Range Interpretation Comments MRSA by PCR (test Negative (09/18/20 9:36 code = MRSA by PCR) AM) [facility] [id number] 14:36:00 Test Item Value Reference Range Interpretation Comments Glucose Lvl (test code = Glucose Lvl) 127 70-99 [facility]2021-05-06 14:36:00 Test Item Value Reference Range Interpretation Comments BUN (test code = BUN) 9 7-22 [facility]2021-05-06 14:36:00 Test Item Value Reference Range Interpretation Comments Creatinine Lvl (test code = Creatinine 0.63 0.50-1.40 Lvl) [facility]2021-05-06 14:36:00 Test Item Value Reference Range Interpretation Comments Sodium Lvl (test code = Sodium Lvl) 136 135-145 [facility]2021-05-06 14:36:00 Test Item Value Reference Range Interpretation Comments Potassium Lvl (test code = Potassium 4.1 3.5-5.1 Lvl) [facility]2021-05-06 14:36:00 Test Item Value Reference Range Interpretation Comments Chloride Lvl (test code = Chloride Lvl) 102 95-109 [facility]2021-05-06 14:36:00 Test Item Value Reference Range Interpretation Comments CO2 (test code = CO2) 31 24-32 [facility]2021-05-06 14:36:00 Test Item Value Reference Range Interpretation Comments Calcium Lvl (test code = Calcium Lvl) 9.2 8.5-10.5 [facility]2021-05-06 14:36:00 Test Item Value Reference Range Interpretation Comments AGAP (test code = AGAP) 7.1 10.0-20.0 [facility]2021-05-06 14:36:00 Test Item Value Reference Range Interpretation Comments eGFR (test code = eGFR) 96 [facility]UthklpbHWSNGBHDHP7902-72-13 14:36:00 Test Item Value Reference Range Interpretation Comments WBC (test code = WBC) 7.4 3.7-10.4 [facility] CenterLyacqqxCQBVDIMPAY7238-65-22 14:36:00 Test Item Value Reference Range Interpretation Comments RBC (test code = RBC) 4.66 4.20-5.40 [place] 384191-05-06 14:36:00 Test Item Value Reference Range Interpretation Comments Hgb (test code = Hgb) 14.0 12.0-16.0 [place] 384191-05-06 14:36:00 Test Item Value Reference Range Interpretation Comments Hct (test code = Hct) 42.4 36.0-48.0 [facility] CenterAlwqfrpTXXPQTXEVP5234-93-73 14:36:00 Test Item Value Reference Range Interpretation Comments MCV (test code = MCV) 91.0 80.0-98.0 [place] 384191-05-06 14:36:00 Test Item Value Reference Range Interpretation Comments MCH (test code = MCH) 30.1 pg 27.0-31.0 [place] 384191-05-06 14:36:00 Test Item Value Reference Range Interpretation Comments MCHC (test code = MCHC) 33.1 32.0-36.0 [facility] CenterHzrevcqRCBTVSMNIM6698-20-48 14:36:00 Test Item Value Reference Range Interpretation Comments RDW (test code = RDW) 15.5 11.5-14.5 [place] 384191-05-06 14:36:00 Test Item Value Reference Range Interpretation Comments Platelet (test code = Platelet) 357 133-450 [facility] CenterOgsewcfQMXQKOJBMJ5615-51-77 14:36:00 Test Item Value Reference Range Interpretation Comments MPV (test code = MPV) 7.2 7.4-10.4 [place] 384191-05-06 14:36:00 Test Item Value Reference Range Interpretation Comments PT (test code = PT) 13.3 s 12.0-14.7 [place] [address]-05-06 14:36:00 Test Item Value Reference Range Interpretation Comments INR (test code = INR) 1.02 1 0.85-1.17 [place] 384191-05-06 14:36:00 Test Item Value Reference Range Interpretation Comments PTT (test code = PTT) 32.9 s 22.9-35.8 [facility] CenterTdyeuwbQBZRNUONOD2675-24-58 14:36:00 Test Item Value Reference Range Interpretation Comments Segs (test code = Segs) 60.7 45.0-75.0 [facility] CenterSmkugngFOQCQYXLDK8955-87-33 14:36:00 Test Item Value Reference Range Interpretation Comments Lymphocytes (test code = Lymphocytes) 29.8 20.0-40.0 [facility] CenterQqlnzvlKFLFJMTDIQ5312-37-88 14:36:00 Test Item Value Reference Range Interpretation Comments Monocytes (test code = Monocytes) 7.4 2.0-12.0 [place] 384191-05-06 14:36:00 Test Item Value Reference Range Interpretation Comments Eosinophils (test code = 1.3 See_Comment [A utomated message] The Eosinophils) system which ge nerated this result tra nsmitted reference range : <=4.0. The reference r zechariah was not used to int erpret this result as normal/abnormal . [facility] CenterPsvvinwPDBBTQOBEV7680-41-10 14:36:00 Test Item Value Reference Range Interpretation Comments Basophils (test code = 0.8 See_Comment [Aut omated message] The Basophils) system which ge nerated this result tra nsmitted reference range : <=1.0. The reference r zechariah was not used to int erpret this result as normal/abnormal . [facility] CenterPthvipmPDEERRMRLX4717-16-18 14:36:00 Test Item Value Reference Range Interpretation Comments Neutrophils # (test code = Neutrophils 4.5 1.5-8.1 #) [facility] [id number] 13:33:00 Test Item Value Reference Range Interpretation Comments Culture: Anaerobic No Anaerobes Isolated (test code = Culture: After 2 Days Anaerobic) [facility] HospitalGram Stain Kebmak2410-25-05 13:33:00 Test Item Value Reference Range Interpretation Comments Gram Stain Report Rare WBC's No Organisms (test code = Gram Seen Stain Report) [facility]: Aspirate/Body Fluid/[id number] 13:33:00 Test Item Value Reference Range Interpretation Comments Culture: Aspirate/Body No Growth At 2 Days Fluid/Tissue (test code = Culture: Aspirate/Body Fluid/Tissue) [facility]: [id number] 13:33:00 Test Item Value Reference Range Interpretation Comments Culture: Anaerobic No Anaerobes Isolated (test code = Culture: After 2 Days Anaerobic) [facility]annGram Stain [id number] 13:33:00 Test Item Value Reference Range Interpretation Comments Gram Stain Report Rare WBC's No Organisms (test code = Gram Seen Stain Report) [facility]annCulture: Aspirate/Body Fluid/[id number] 13:33:00 Test Item Value Reference Range Interpretation Comments Culture: Aspirate/Body No Growth At 2 Days Fluid/Tissue (test code = Culture: Aspirate/Body Fluid/Tissue) [facility] [id number] 13:26:00 Test Item Value Reference Range Interpretation Comments Culture: Anaerobic No Anaerobes Isolated (test code = Culture: After 2 Days Anaerobic) [facility] Stain [id number] 13:26:00 Test Item Value Reference Range Interpretation Comments Gram Stain Report Few WBC's No Organisms (test code = Gram Seen Stain Report) [facility]ir[facility]/Body Fluid/Dwbvot8642-08-15 13:26:00 Test Item Value Reference Range Interpretation Comments Culture: Aspirate/Body No Growth At 2 Days Fluid/Tissue (test code = Culture: Aspirate/Body Fluid/Tissue) [facility] Wazwvznik5012-30-80 13:26:00 Test Item Value Reference Range Interpretation Comments Culture: Anaerobic No Anaerobes Isolated (test code = Culture: After 2 Days Anaerobic) [facility] Stain Geeyvd6847-76-70 13:26:00 Test Item Value Reference Range Interpretation Comments Gram Stain Report Few WBC's No Organisms (test code = Gram Seen Stain Report) [facility] Aspirate/Body Fluid/[id number] 13:26:00 Test Item Value Reference Range Interpretation Comments Culture: Aspirate/Body No Growth At 2 Days Fluid/Tissue (test code = Culture: Aspirate/Body Fluid/Tissue) [facility] Bjarrqfud3136-20-78 13:09:00 Test Item Value Reference Range Interpretation Comments Culture: Anaerobic No Anaerobes Isolated (test code = Culture: After 2 Days Anaerobic) [facility] Fhdsds2651-93-08 13:09:00 Test Item Value Reference Range Interpretation Comments Gram Stain Report Few WBC's No Organisms (test code = Gram Seen Stain Report) [facility] Aspirate/Body Fluid/Szzxle4395-78-03 13:09:00 Test Item Value Reference Range Interpretation Comments Culture: Aspirate/Body No Growth At 2 Days Fluid/Tissue (test code = Culture: Aspirate/Body Fluid/Tissue) [facility] Smelotzjh4964-39-86 13:09:00 Test Item Value Reference Range Interpretation Comments Culture: Anaerobic No Anaerobes Isolated (test code = Culture: After 2 Days Anaerobic) [facility] Ucgxmh3109-71-91 13:09:00 Test Item Value Reference Range Interpretation Comments Gram Stain Report Few WBC's No Organisms (test code = Gram Seen Stain Report) [facility] Fluid/Jyeufz5644-26-21 13:09:00 Test Item Value Reference Range Interpretation Comments Culture: Aspirate/Body No Growth At 2 Days Fluid/Tissue (test code = Culture: Aspirate/Body Fluid/Tissue) [facility]13[facility]-76 16:15:00 Test Item Value Reference Range Interpretation Comments Coronavirus (COVID-19) Not Detected SHARMIN (test code = *NA*(07/18/20 10:15 AM) Coronavirus (COVID-19) SHARMIN) [facility] HospitalIfdvozgYUYDGKSOKN4226-73-68 16:15:00 Test Item Value Reference Range Interpretation Comments Coronavirus (COVID-19) Not Detected SHARMIN (test code = *NA*(07/18/20 10:15 AM) Coronavirus (COVID-19) SHARMIN) [facility]2021-03-01 18:56:00 Test Item Value Reference Range Interpretation Comments Glucose Lvl (test code = Glucose Lvl) 102 70-99 [facility] [id number] 18:56:00 Test Item Value Reference Range Interpretation Comments BUN (test code = BUN) 10 7-22 [facility]2021-03-01 18:56:00 Test Item Value Reference Range Interpretation Comments Creatinine Lvl (test code = Creatinine 0.80 0.50-1.40 Lvl) [facility]2021-03-01 18:56:00 Test Item Value Reference Range Interpretation Comments Sodium Lvl (test code = Sodium Lvl) 141 135-145 [facility]2021-03-01 18:56:00 Test Item Value Reference Range Interpretation Comments Potassium Lvl (test code = Potassium 4.8 3.5-5.1 Lvl) [place]59711-03-01 18:56:00 Test Item Value Reference Range Interpretation Comments Chloride Lvl (test code = Chloride Lvl) 107 95-109 [place] 559711-03-01 18:56:00 Test Item Value Reference Range Interpretation Comments CO2 (test code = CO2) 28 24-32 [place] 559711-03-01 18:56:00 Test Item Value Reference Range Interpretation Comments Calcium Lvl (test code = Calcium Lvl) 8.9 8.5-10.5 [place] 559711-03-01 18:56:00 Test Item Value Reference Range Interpretation Comments AGAP (test code = AGAP) 10.8 10.0-20.0 [place] 559711-03-01 18:56:00 Test Item Value Reference Range Interpretation Comments eGFR (test code = eGFR) 79 [place] 384191-03-01 18:56:00 Test Item Value Reference Range Interpretation Comments WBC (test code = WBC) 7.1 3.7-10.4 [place] [address]-03-01 18:56:00 Test Item Value Reference Range Interpretation Comments RBC (test code = RBC) 4.84 4.20-5.40 [place] [address]-03-01 18:56:00 Test Item Value Reference Range Interpretation Comments Hgb (test code = Hgb) 14.5 12.0-16.0 [place] [address]-03-01 18:56:00 Test Item Value Reference Range Interpretation Comments Hct (test code = Hct) 44.2 36.0-48.[address]03-01 18:56:00 Test Item Value Reference Range Interpretation Comments MCV (test code = MCV) 91.3 80.0-98.0 [place] [address]-03-01 18:56:00 Test Item Value Reference Range Interpretation Comments MCH (test code = MCH) 30.0 pg 27.0-31.0 [place] [address]-03-01 18:56:00 Test Item Value Reference Range Interpretation Comments MCHC (test code = MCHC) 32.8 32.0-36.0 [address]03-01 18:56:00 Test Item Value Reference Range Interpretation Comments RDW (test code = RDW) 13.2 11.5-14.[address]03-01 18:56:00 Test Item Value Reference Range Interpretation Comments Platelet (test code = Platelet) 341 133-[address]03-01 18:56:00 Test Item Value Reference Range Interpretation Comments MPV (test code = MPV) 7.2 7.4-10.[address]03-01 18:56:00 Test Item Value Reference Range Interpretation Comments PT (test code = PT) 12.8 s 12.0-14.[address]03-01 18:56:00 Test Item Value Reference Range Interpretation Comments INR (test code = INR) 0.97 1 0.85-1.[address]03-01 18:56:00 Test Item Value Reference Range Interpretation Comments PTT (test code = PTT) 29.8 s 22.9-35.[address]03-01 18:56:00 Test Item Value Reference Range Interpretation Comments Segs (test code = Segs) 48.7 45.0-75.[address]03-01 18:56:00 Test Item Value Reference Range Interpretation Comments Lymphocytes (test code = Lymphocytes) 42.8 20.0-40.[address]03-01 18:56:00 Test Item Value Reference Range Interpretation Comments Monocytes (test code = Monocytes) 5.8 2.0-12.[address]03-01 18:56:00 Test Item Value Reference Range Interpretation Comments Eosinophils (test code = 2.1 See_Comment [A utomated message] The Eosinophils) system which ge nerated this result tra nsmitted reference range : <=4.0. The reference r zechariah was not used to int erpret this result as normal/abnormal . [address]03-01 18:56:00 Test Item Value Reference Range Interpretation Comments Basophils (test code = 0.6 See_Comment [Aut omated message] The Basophils) system which ge nerated this result tra nsmitted reference range : <=1.0. The reference r zechariah was not used to int erpret this result as normal/abnormal . [address]03-01 18:56:00 Test Item Value Reference Range Interpretation Comments Neutrophils # (test code = Neutrophils 3.5 1.5-8.1 #) [place] [address]-03-01 18:56:00 Test Item Value Reference Range Interpretation Comments Lymphocytes # (test code = Lymphocytes 3.0 1.0-5.5 #) [place] [address]-03-01 18:56:00 Test Item Value Reference Range Interpretation Comments Monocytes # (test code 0.4 See_Comment [Aut omated message] The = Monocytes #) system which generated this result tra nsmitted reference range : <=0.8. The reference r zechariah was not used to int erpret this result as normal/abnormal . [place] [address]-03-01 18:56:00 Test Item Value Reference Range Interpretation Comments Eosinophils # (test code 0.1 See_Comment [A utomated message] The = Eosinophils #) system whic h generated this result tra nsmitted reference range : <=0.5. The reference r zechariah was not used to int erpret this result as normal/abnormal . [place] 559711-03-01 18:56:00 Test Item Value Reference Range Interpretation Comments Glucose Lvl (test code = Glucose Lvl) 102 70-99 [place] [address]-03-01 18:56:00 Test Item Value Reference Range Interpretation Comments BUN (test code = BUN) 10 7-22 [place] [address]-03-01 18:56:00 Test Item Value Reference Range Interpretation Comments Creatinine Lvl (test code = Creatinine 0.80 0.50-1.40 Lvl) [place] [address]-03-01 18:56:00 Test Item Value Reference Range Interpretation Comments Sodium Lvl (test code = Sodium Lvl) 141 135-145 [place] [address]-03-01 18:56:00 Test Item Value Reference Range Interpretation Comments Potassium Lvl (test code = Potassium 4.8 3.5-5.1 Lvl) [place] [address]-03-01 18:56:00 Test Item Value Reference Range Interpretation Comments Chloride Lvl (test code = Chloride Lvl) 107 95-109 [facility]2021-03-01 18:56:00 Test Item Value Reference Range Interpretation Comments CO2 (test code = CO2) 28 24-32 [place] 559711-03-01 18:56:00 Test Item Value Reference Range Interpretation Comments Calcium Lvl (test code = Calcium Lvl) 8.9 8.5-10.5 [place] 559711-03-01 18:56:00 Test Item Value Reference Range Interpretation Comments AGAP (test code = AGAP) 10.8 10.0-20.0 [place] 559711-03-01 18:56:00 Test Item Value Reference Range Interpretation Comments eGFR (test code = eGFR) 79 [place] 384191-03-01 18:56:00 Test Item Value Reference Range Interpretation Comments WBC (test code = WBC) 7.1 3.7-10.4 [place] 384191-03-01 18:56:00 Test Item Value Reference Range Interpretation Comments RBC (test code = RBC) 4.84 4.20-5.40 [place] 384191-03-01 18:56:00 Test Item Value Reference Range Interpretation Comments Hgb (test code = Hgb) 14.5 12.0-16.0 [place] [address]-03-01 18:56:00 Test Item Value Reference Range Interpretation Comments Hct (test code = Hct) 44.2 36.0-48.0 [place] [address]-03-01 18:56:00 Test Item Value Reference Range Interpretation Comments MCV (test code = MCV) 91.3 80.0-98.0 [place] [address]-03-01 18:56:00 Test Item Value Reference Range Interpretation Comments MCH (test code = MCH) 30.0 pg 27.0-31.0 [place] 384191-03-01 18:56:00 Test Item Value Reference Range Interpretation Comments MCHC (test code = MCHC) 32.8 32.0-36.0 [place] [address]-03-01 18:56:00 Test Item Value Reference Range Interpretation Comments RDW (test code = RDW) 13.2 11.5-14.5 [address]03-01 18:56:00 Test Item Value Reference Range Interpretation Comments Platelet (test code = Platelet) 341 133-450 [place] [address]-03-01 18:56:00 Test Item Value Reference Range Interpretation Comments MPV (test code = MPV) 7.2 7.4-10.4 [place] [address]-03-01 18:56:00 Test Item Value Reference Range Interpretation Comments PT (test code = PT) 12.8 s 12.0-14.7 [place] [address]-03-01 18:56:00 Test Item Value Reference Range Interpretation Comments INR (test code = INR) 0.97 1 0.85-1.17 [place] [address]-03-01 18:56:00 Test Item Value Reference Range Interpretation Comments PTT (test code = PTT) 29.8 s 22.9-35.[address]03-01 18:56:00 Test Item Value Reference Range Interpretation Comments Segs (test code = Segs) 48.7 45.0-75.0 [place] [address]-03-01 18:56:00 Test Item Value Reference Range Interpretation Comments Lymphocytes (test code = Lymphocytes) 42.8 20.0-40.0 [place] [address]-03-01 18:56:00 Test Item Value Reference Range Interpretation Comments Monocytes (test code = Monocytes) 5.8 2.0-12.0 [place] [address]-03-01 18:56:00 Test Item Value Reference Range Interpretation Comments Eosinophils (test code = 2.1 See_Comment [A utomated message] The Eosinophils) system which ge nerated this result tra nsmitted reference range : <=4.0. The reference r zechariah was not used to int erpret this result as normal/abnormal . [place] [address]-03-01 18:56:00 Test Item Value Reference Range Interpretation Comments Basophils (test code = 0.6 See_Comment [Aut omated message] The Basophils) system which ge nerated this result tra nsmitted reference range : <=1.0. The reference r zechariah was not used to int erpret this result as normal/abnormal . [place] [address]-03-01 18:56:00 Test Item Value Reference Range Interpretation Comments Neutrophils # (test code = Neutrophils 3.5 1.5-8.1 #) [place] 384191-03-01 18:56:00 Test Item Value Reference Range Interpretation Comments Lymphocytes # (test code = Lymphocytes 3.0 1.0-5.5 #) [place] 384191-03-01 18:56:00 Test Item Value Reference Range Interpretation Comments Monocytes # (test code 0.4 See_Comment [Aut omated message] The = Monocytes #) system which generated this result tra nsmitted reference range : <=0.8. The reference r zechariah was not used to int erpret this result as normal/abnormal . [place] 384191-03-01 18:56:00 Test Item Value Reference Range Interpretation Comments Eosinophils # (test code 0.1 See_Comment [A utomated message] The = Eosinophils #) system whic h generated this result tra nsmitted reference range : <=0.5. The reference r zechariah was not used to int erpret this result as normal/abnormal . [facility] [id number] 18:24:00 Test Item Value Reference Range Interpretation Comments Glucose Lvl (test code = Glucose Lvl) 129 70-99 [facility] [id number] 18:24:00 Test Item Value Reference Range Interpretation Comments BUN (test code = BUN) 10 7-22 [facility] [id number] 18:24:00 Test Item Value Reference Range Interpretation Comments Creatinine Lvl (test code = Creatinine 0.81 0.50-1.40 Lvl) [facility] [id number] 18:24:00 Test Item Value Reference Range Interpretation Comments Sodium Lvl (test code = Sodium Lvl) 139 135-145 [facility] [id number] 18:24:00 Test Item Value Reference Range Interpretation Comments Potassium Lvl (test code = Potassium 4.5 3.5-5.1 Lvl) [facility] [id number] 18:24:00 Test Item Value Reference Range Interpretation Comments Chloride Lvl (test code = Chloride Lvl) 103 95-109 [facility] [id number] 18:24:00 Test Item Value Reference Range Interpretation Comments CO2 (test code = CO2) 28 24-32 [place] 559710-12-14 18:24:00 Test Item Value Reference Range Interpretation Comments Calcium Lvl (test code = Calcium Lvl) 8.8 8.5-10.5 [place] 559710-12-14 18:24:00 Test Item Value Reference Range Interpretation Comments AGAP (test code = AGAP) 12.5 10.0-20.0 [place] 559710-12-14 18:24:00 Test Item Value Reference Range Interpretation Comments eGFR (test code = eGFR) 78 [facility]DxexmzyPKLIFRWALT7633-84-05 18:24:00 Test Item Value Reference Range Interpretation Comments Segs (test code = Segs) 30.3 45.0-75.0 [place] [address]-12-14 18:24:00 Test Item Value Reference Range Interpretation Comments Lymphocytes (test code = Lymphocytes) 58.8 20.0-40.0 [facility] CenterBsjaamjPLSPAZCKUU0917-17-07 18:24:00 Test Item Value Reference Range Interpretation Comments Monocytes (test code = Monocytes) 6.7 2.0-12.0 [place] [address]-12-14 18:24:00 Test Item Value Reference Range Interpretation Comments Eosinophils (test code = 3.3 See_Comment [A utomated message] The Eosinophils) system which ge nerated this result tra nsmitted reference range : <=4.0. The reference r zechariah was not used to int erpret this result as normal/abnormal . [facility] CenterXhkboasBJBOWOMETK5802-56-32 18:24:00 Test Item Value Reference Range Interpretation Comments Basophils (test code = 0.9 See_Comment [Aut omated message] The Basophils) system which ge nerated this result tra nsmitted reference range : <=1.0. The reference r zechariah was not used to int erpret this result as normal/abnormal . [place] 384190-12-14 18:24:00 Test Item Value Reference Range Interpretation Comments Neutrophils # (test code = Neutrophils 3.0 1.5-8.1 #) [place] [address]-12-14 18:24:00 Test Item Value Reference Range Interpretation Comments Lymphocytes # (test code = Lymphocytes 5.7 1.0-5.5 #) [place] 384190-12-14 18:24:00 Test Item Value Reference Range Interpretation Comments Monocytes # (test code 0.7 See_Comment [Aut omated message] The = Monocytes #) system which generated this result tra nsmitted reference range : <=0.8. The reference r zechariah was not used to int erpret this result as normal/abnormal . [facility] CenterFsxdqufFGBPCSJAYD5419-06-59 18:24:00 Test Item Value Reference Range Interpretation Comments Eosinophils # (test code 0.3 See_Comment [A utomated message] The = Eosinophils #) system whic h generated this result tra nsmitted reference range : <=0.5. The reference r zechariah was not used to int erpret this result as normal/abnormal . [facility] CenterDjequqlXDBEPADVLL6370-13-36 18:24:00 Test Item Value Reference Range Interpretation Comments Basophils # (test code 0.1 See_Comment [Aut omated message] The = Basophils #) system which generated this result tra nsmitted reference range : <=0.2. The reference r zechariah was not used to int erpret this result as normal/abnormal . [facility]UobicuxCFDUGHNLCA8272-85-03 18:24:00 Test Item Value Reference Range Interpretation Comments WBC (test code = WBC) 9.7 3.7-10.4 [facility] CenterPxipjvrXLFFDHSIHN4717-47-99 18:24:00 Test Item Value Reference Range Interpretation Comments RBC (test code = RBC) 4.49 4.20-5.40 [facility] HospitalEqggvcdXQIRIBHZOY6901-98-33 18:24:00 Test Item Value Reference Range Interpretation Comments Hgb (test code = Hgb) 13.7 12.0-16.0 [facility] HospitalGuwcqhlAPRCQHVIQS8458-29-52 18:24:00 Test Item Value Reference Range Interpretation Comments Hct (test code = Hct) 41.5 36.0-48.0 [facility] CenterIcekzpoJYZKJXRTJS6157-90-79 18:24:00 Test Item Value Reference Range Interpretation Comments MCV (test code = MCV) 92.3 80.0-98.0 [facility] CenterFvwhsbtUAEWCIVJOH8441-05-09 18:24:00 Test Item Value Reference Range Interpretation Comments MCH (test code = MCH) 30.4 pg 27.0-31.0 [facility] CenterVlvwdbeRYRSLXOBSQ8678-81-08 18:24:00 Test Item Value Reference Range Interpretation Comments MCHC (test code = MCHC) 33.0 32.0-36.0 [facility] CenterNrcsxmjHCQLKZXQXP7734-02-13 18:24:00 Test Item Value Reference Range Interpretation Comments RDW (test code = RDW) 14.1 11.5-14.5 [facility] CenterXzdgxklMILJDXZBCL2679-28-90 18:24:00 Test Item Value Reference Range Interpretation Comments Platelet (test code = Platelet) 360 133-450 [facility] CenterRrdznatTGJANWVJZO9261-66-95 18:24:00 Test Item Value Reference Range Interpretation Comments MPV (test code = MPV) 7.0 7.4-10.4 [facility]2020-12-14 18:24:00 Test Item Value Reference Range Interpretation Comments Glucose Lvl (test code = Glucose Lvl) 129 70-99 [facility]2020-12-14 18:24:00 Test Item Value Reference Range Interpretation Comments BUN (test code = BUN) 10 7-22 [facility]2020-12-14 18:24:00 Test Item Value Reference Range Interpretation Comments Creatinine Lvl (test code = Creatinine 0.81 0.50-1.40 Lvl) [facility]2020-12-14 18:24:00 Test Item Value Reference Range Interpretation Comments Sodium Lvl (test code = Sodium Lvl) 139 135-145 [facility]2020-12-14 18:24:00 Test Item Value Reference Range Interpretation Comments Potassium Lvl (test code = Potassium 4.5 3.5-5.1 Lvl) [facility]2020-12-14 18:24:00 Test Item Value Reference Range Interpretation Comments Chloride Lvl (test code = Chloride Lvl) 103 95-109 [facility]2020-12-14 18:24:00 Test Item Value Reference Range Interpretation Comments CO2 (test code = CO2) 28 24-32 [facility]2020-12-14 18:24:00 Test Item Value Reference Range Interpretation Comments Calcium Lvl (test code = Calcium Lvl) 8.8 8.5-10.5 [facility]2020-12-14 18:24:00 Test Item Value Reference Range Interpretation Comments AGAP (test code = AGAP) 12.5 10.0-20.0 [facility]2020-12-14 18:24:00 Test Item Value Reference Range Interpretation Comments eGFR (test code = eGFR) 78 [facility] CenterYpxxssbJCRMZUTJSS6568-72-23 18:24:00 Test Item Value Reference Range Interpretation Comments Segs (test code = Segs) 30.3 45.0-75.0 [place] 384190-12-14 18:24:00 Test Item Value Reference Range Interpretation Comments Lymphocytes (test code = Lymphocytes) 58.8 20.0-40.0 [place] 384190-12-14 18:24:00 Test Item Value Reference Range Interpretation Comments Monocytes (test code = Monocytes) 6.7 2.0-12.0 [facility] CenterCapqryeBGJEHDPXTN6818-58-67 18:24:00 Test Item Value Reference Range Interpretation Comments Eosinophils (test code = 3.3 See_Comment [A utomated message] The Eosinophils) system which ge nerated this result tra nsmitted reference range : <=4.0. The reference r zechariah was not used to int erpret this result as normal/abnormal . [facility] CenterAgxaomeYJGVWRGWUX1045-36-90 18:24:00 Test Item Value Reference Range Interpretation Comments Basophils (test code = 0.9 See_Comment [Aut omated message] The Basophils) system which ge nerated this result tra nsmitted reference range : <=1.0. The reference r zechariah was not used to int erpret this result as normal/abnormal . [facility] CenterGrsaojxTFYENPPBHS2290-65-42 18:24:00 Test Item Value Reference Range Interpretation Comments Neutrophils # (test code = Neutrophils 3.0 1.5-8.1 #) [facility] CenterPofduxlZCMUUYNKXI5256-05-82 18:24:00 Test Item Value Reference Range Interpretation Comments Lymphocytes # (test code = Lymphocytes 5.7 1.0-5.5 #) [facility] CenterMxszuiuUDWFCQELXD5092-15-51 18:24:00 Test Item Value Reference Range Interpretation Comments Monocytes # (test code 0.7 See_Comment [Aut omated message] The = Monocytes #) system which generated this result tra nsmitted reference range : <=0.8. The reference r zechariah was not used to int erpret this result as normal/abnormal . [facility] CenterVdlncdlIWVZXGXQDC4797-52-99 18:24:00 Test Item Value Reference Range Interpretation Comments Eosinophils # (test code 0.3 See_Comment [A utomated message] The = Eosinophils #) system whic h generated this result tra nsmitted reference range : <=0.5. The reference r zechariah was not used to int erpret this result as normal/abnormal . [facility] CenterEwthslxRAFZRVLLYS0321-96-21 18:24:00 Test Item Value Reference Range Interpretation Comments Basophils # (test code 0.1 See_Comment [Aut omated message] The = Basophils #) system which generated this result tra nsmitted reference range : <=0.2. The reference r zechariah was not used to int erpret this result as normal/abnormal . [facility] CenterOslqklpDHLUMANSMN2911-03-54 18:24:00 Test Item Value Reference Range Interpretation Comments WBC (test code = WBC) 9.7 3.7-10.4 [facility] HospitalBetwcixENHVMNIOLZ2146-29-76 18:24:00 Test Item Value Reference Range Interpretation Comments RBC (test code = RBC) 4.49 4.20-5.40 [facility] CenterNiqowevPMAXUZMMJT7895-76-25 18:24:00 Test Item Value Reference Range Interpretation Comments Hgb (test code = Hgb) 13.7 12.0-16.0 [facility] CenterBmmcinyVENFOXQMHW6579-62-11 18:24:00 Test Item Value Reference Range Interpretation Comments Hct (test code = Hct) 41.5 36.0-48.0 [facility] CenterRuqfmkkIWVCMDWTFK1022-41-69 18:24:00 Test Item Value Reference Range Interpretation Comments MCV (test code = MCV) 92.3 80.0-98.0 [facility]ScqbeidCENINSIIFR1148-45-89 18:24:00 Test Item Value Reference Range Interpretation Comments MCH (test code = MCH) 30.4 pg 27.0-31.0 [facility] CenterZhnqsgmJOOGFZXNHA3790-16-80 18:24:00 Test Item Value Reference Range Interpretation Comments MCHC (test code = MCHC) 33.0 32.0-36.0 [facility] CenterRntglcwHIWGDLYNTW7052-74-75 18:24:00 Test Item Value Reference Range Interpretation Comments RDW (test code = RDW) 14.1 11.5-14.5 [facility] CenterQwbkntgVJCZZRBUWS9126-56-03 18:24:00 Test Item Value Reference Range Interpretation Comments Platelet (test code = Platelet) 360 133-450 [facility] CenterJollgprSMKRWCOYVV9590-68-63 18:24:00 Test Item Value Reference Range Interpretation Comments MPV (test code = MPV) 7.0 7.4-10.4 [facility]zoofweWKIRYQZEMV1452-63-82 17:19:00 Test Item Value Reference Range Interpretation Comments Coronavirus (COVID-19) Not Detected SHARMIN (test code = (04/24/20 11:19 AM) Coronavirus (COVID-19) SHARMIN) [facility] HospitalVzhwbguMSJXAJNMOQ1840-83-92 17:19:00 Test Item Value Reference Range Interpretation Comments Coronavirus (COVID-19) Not Detected SHARMIN (test code = (04/24/20 11:19 AM) Coronavirus (COVID-19) SHARMIN) [facility] [employer] [id number] 16:08:00 Test Item Value Reference Range Interpretation Comments ABO/Rh (test code = ABO/Rh) O NEG [facility] [employer] [id number] 16:08:00 Test Item Value Reference Range Interpretation Comments Antibody Scrn (test Negative (04/24/20 code = Antibody Scrn) 10:08 AM) [facility] [employer] [id number] 16:08:00 Test Item Value Reference Range Interpretation Comments Glucose Lvl (test code = Glucose Lvl) 125 70-99 [facility] [employer] [id number] 16:08:00 Test Item Value Reference Range Interpretation Comments BUN (test code = BUN) 11 7-22 [facility] [employer] [id number] 16:08:00 Test Item Value Reference Range Interpretation Comments Creatinine Lvl (test code = Creatinine 0.80 0.50-1.40 Lvl) [facility] [employer] [id number] 16:08:00 Test Item Value Reference Range Interpretation Comments Sodium Lvl (test code = Sodium Lvl) 142 135-145 [facility] [employer]2020-12-10 16:08:00 Test Item Value Reference Range Interpretation Comments Potassium Lvl (test code = Potassium 4.2 3.5-5.1 Lvl) [facility] [employer] [id number] 16:08:00 Test Item Value Reference Range Interpretation Comments Chloride Lvl (test code = Chloride Lvl) 103 95-109 [facility] [employer] [id number] 16:08:00 Test Item Value Reference Range Interpretation Comments CO2 (test code = CO2) 31 24-32 [facility]2020-12-10 16:08:00 Test Item Value Reference Range Interpretation Comments Calcium Lvl (test code = Calcium Lvl) 8.8 8.5-10.5 [place] 559710-12-10 16:08:00 Test Item Value Reference Range Interpretation Comments AGAP (test code = AGAP) 12.2 10.0-20.0 [place] [address]-12-10 16:08:00 Test Item Value Reference Range Interpretation Comments eGFR (test code = eGFR) 79 [facility]2020-12-10 16:08:00 Test Item Value Reference Range Interpretation Comments Vitamin D, 25-OH, Total (test code = 29 30-100 Vitamin D, 25-OH, Total) [place] 559710-12-10 16:08:00 Test Item Value Reference Range Interpretation Comments Albumin Lvl (test code = Albumin Lvl) 3.5 3.5-5.0 [place] [address]-12-10 16:08:00 Test Item Value Reference Range Interpretation Comments WBC (test code = WBC) 6.6 3.7-10.4 [place] [address]-12-10 16:08:00 Test Item Value Reference Range Interpretation Comments RBC (test code = RBC) 4.60 4.20-5.40 [place] [address]-12-10 16:08:00 Test Item Value Reference Range Interpretation Comments Hgb (test code = Hgb) 13.9 12.0-16.0 [place] [address]-12-10 16:08:00 Test Item Value Reference Range Interpretation Comments Hct (test code = Hct) 42.2 36.0-48.0 [place] [address]-12-10 16:08:00 Test Item Value Reference Range Interpretation Comments MCV (test code = MCV) 91.7 80.0-98.0 [place] [address]-12-10 16:08:00 Test Item Value Reference Range Interpretation Comments MCH (test code = MCH) 30.2 pg 27.0-31.0 [place] [address]-12-10 16:08:00 Test Item Value Reference Range Interpretation Comments MCHC (test code = MCHC) 32.9 32.0-36.0 [facility] CenterNyejzfpREBPQWSVEF5586-01-74 16:08:00 Test Item Value Reference Range Interpretation Comments RDW (test code = RDW) 14.5 11.5-14.5 [facility] CenterKdvlbpcNHQCJKRVDR9639-71-73 16:08:00 Test Item Value Reference Range Interpretation Comments Platelet (test code = Platelet) 399 133-450 [facility] CenterRgktwicKFZXDQXKQJ6500-77-94 16:08:00 Test Item Value Reference Range Interpretation Comments MPV (test code = MPV) 7.4 7.4-10.4 [place] 384190-12-10 16:08:00 Test Item Value Reference Range Interpretation Comments PROTIME (test code = PROTIME) 12.5 s 12.0-14.7 [facility] CenterIlgxdivHQYZNEMWBN8125-27-65 16:08:00 Test Item Value Reference Range Interpretation Comments INR (test code = INR) 0.93 1 0.85-1.17 [facility] CenterRlhwfrvDICFGUYDXK3579-14-69 16:08:00 Test Item Value Reference Range Interpretation Comments aPTT (test code = aPTT) 31.2 s 22.9-35.8 [facility] CenterZctchuoVWHUWEMRCK5032-19-77 16:08:00 Test Item Value Reference Range Interpretation Comments Segs (test code = Segs) 56.2 45.0-75.0 [facility] CenterAollryiMTOFMDWSWG5103-50-51 16:08:00 Test Item Value Reference Range Interpretation Comments Lymphocytes (test code = Lymphocytes) 34.8 20.0-40.0 [facility] CenterTsdramuSBLEZPQMRB1792-48-78 16:08:00 Test Item Value Reference Range Interpretation Comments Monocytes (test code = Monocytes) 5.9 2.0-12.0 [place] [address]-12-10 16:08:00 Test Item Value Reference Range Interpretation Comments Eosinophils (test code = 2.6 See_Comment [A utomated message] The Eosinophils) system which ge nerated this result tra nsmitted reference range : <=4.0. The reference r zechariah was not used to int erpret this result as normal/abnormal . [facility] CenterLsdcdkaZDHCZRBRDI7871-56-19 16:08:00 Test Item Value Reference Range Interpretation Comments Basophils (test code = 0.5 See_Comment [Aut omated message] The Basophils) system which ge nerated this result tra nsmitted reference range : <=1.0. The reference r zechariah was not used to int erpret this result as normal/abnormal . [facility] HospitalMgochucMHJIVRQPZH5883-56-00 16:08:00 Test Item Value Reference Range Interpretation Comments Neutrophils # (test code = Neutrophils 3.7 1.5-8.1 #) [facility] HospitalMjqmtwlXTXDLMUVCC6902-10-04 16:08:00 Test Item Value Reference Range Interpretation Comments Lymphocytes # (test code = Lymphocytes 2.3 1.0-5.5 #) [facility] HospitalGrmxiiwRAFZBCEDMY5114-00-36 16:08:00 Test Item Value Reference Range Interpretation Comments Monocytes # (test code 0.4 See_Comment [Aut omated message] The = Monocytes #) system which generated this result tra nsmitted reference range : <=0.8. The reference r zechariah was not used to int erpret this result as normal/abnormal . [facility] HospitalXiuodtbEPADTSHPDW1168-20-57 16:08:00 Test Item Value Reference Range Interpretation Comments Eosinophils # (test code 0.2 See_Comment [A utomated message] The = Eosinophils #) system whic h generated this result tra nsmitted reference range : <=0.5. The reference r zechariah was not used to int erpret this result as normal/abnormal . [facility] [id number] 16:08:00 Test Item Value Reference Range Interpretation Comments Hgb A1C (test code = Hgb A1C) 6.6 [facility] AND [id number] 16:08:00 Test Item Value Reference Range Interpretation Comments UA Color (test code = Yellow *NA*(04/24/20 UA Color) 10:08 AM) [facility] AND [id number] 16:08:00 Test Item Value Reference Range Interpretation Comments UA Turbidity (test code = Clear (04/24/20 UA Turbidity) 10:08 AM) [facility] AND [id number] 16:08:00 Test Item Value Reference Range Interpretation Comments UA Spec Grav (test *NA*(04/24/20 10:08 AM) code = UA Spec Grav) [facility] AND [id number] 16:08:00 Test Item Value Reference Range Interpretation Comments UA pH (test code = UA pH) 6.0 1 5.0-8.0 [facility] [id number] 16:08:00 Test Item Value Reference Range Interpretation Comments UA Protein (test code Negative (04/24/20 = UA Protein) 10:08 AM) [facility] [id number] 16:08:00 Test Item Value Reference Range Interpretation Comments UA Glucose (test code = UA Glucose) 250 mg/dL [facility] [id number] 16:08:00 Test Item Value Reference Range Interpretation Comments UA Ketones (test code Negative *NA*(04/24/20 = UA Ketones) 10:08 AM) [facility] [id number] 16:08:00 Test Item Value Reference Range Interpretation Comments UA Bili (test code = Negative *NA*(04/24/20 UA Bili) 10:08 AM) [facility] [id number] 16:08:00 Test Item Value Reference Range Interpretation Comments UA Blood (test code = Negative (04/24/20 10:08 UA Blood) AM) [facility] [id number] 16:08:00 Test Item Value Reference Range Interpretation Comments UA Urobilinogen (test code = UA 0.2 0.1-1.0 Urobilinogen) [facility] [id number] 16:08:00 Test Item Value Reference Range Interpretation Comments UA Nitrite (test code Negative (04/24/20 = UA Nitrite) 10:08 AM) [facility] [id number] 16:08:00 Test Item Value Reference Range Interpretation Comments UA Leuk Est (test Negative (04/24/20 10:08 code = UA Leuk Est) AM) [facility] [id number] 16:08:00 Test Item Value Reference Range Interpretation Comments Micro? (test code = Performed (04/24/20 10:08 Micro?) AM) [facility] [id number] 16:08:00 Test Item Value Reference Range Interpretation Comments UA Sq Epi (test code = UA Sq Epi) Few /LPF [facility] [id number] 16:08:00 Test Item Value Reference Range Interpretation Comments UA WBC (test code = UA WBC) 0-2 /HPF [facility] [id number] 16:08:00 Test Item Value Reference Range Interpretation Comments UA RBC (test code = 0-2 /HPF See_Comment [Automa jose message] The UA RBC) system which ge nerated this result tra nsmitted reference range : <=2. The reference range was not used to interpr et this result as scott l/abnormal. [facility] AND [id number] 16:08:00 Test Item Value Reference Range Interpretation Comments UA Bacteria (test code = UA Few /HPF Bacteria) [facility] [employer] [id number] 16:08:00 Test Item Value Reference Range Interpretation Comments ABO/Rh (test code = ABO/Rh) O NEG [facility] [employer] [id number] 16:08:00 Test Item Value Reference Range Interpretation Comments Antibody Scrn (test Negative (04/24/20 code = Antibody Scrn) 10:08 AM) [facility] [employer] [id number] 16:08:00 Test Item Value Reference Range Interpretation Comments Glucose Lvl (test code = Glucose Lvl) 125 70-99 [facility] [employer] [id number] 16:08:00 Test Item Value Reference Range Interpretation Comments BUN (test code = BUN) 11 7-22 [facility] [employer] [id number] 16:08:00 Test Item Value Reference Range Interpretation Comments Creatinine Lvl (test code = Creatinine 0.80 0.50-1.40 Lvl) [facility] [employer] [id number] 16:08:00 Test Item Value Reference Range Interpretation Comments Sodium Lvl (test code = Sodium Lvl) 142 135-145 [facility] [employer] [id number] 16:08:00 Test Item Value Reference Range Interpretation Comments Potassium Lvl (test code = Potassium 4.2 3.5-5.1 Lvl) [facility] [employer] [id number] 16:08:00 Test Item Value Reference Range Interpretation Comments Chloride Lvl (test code = Chloride Lvl) 103 95-109 [facility] [employer] [id number] 16:08:00 Test Item Value Reference Range Interpretation Comments CO2 (test code = CO2) 31 24-32 [facility] [employer] [id number] 16:08:00 Test Item Value Reference Range Interpretation Comments Calcium Lvl (test code = Calcium Lvl) 8.8 8.5-10.5 [facility]2020-12-10 16:08:00 Test Item Value Reference Range Interpretation Comments AGAP (test code = AGAP) 12.2 10.0-20.0 [place] 559710-12-10 16:08:00 Test Item Value Reference Range Interpretation Comments eGFR (test code = eGFR) 79 [facility]2020-12-10 16:08:00 Test Item Value Reference Range Interpretation Comments Vitamin D, 25-OH, Total (test code = 29 30-100 Vitamin D, 25-OH, Total) [facility]2020-12-10 16:08:00 Test Item Value Reference Range Interpretation Comments Albumin Lvl (test code = Albumin Lvl) 3.5 3.5-5.0 [place] [address]-12-10 16:08:00 Test Item Value Reference Range Interpretation Comments WBC (test code = WBC) 6.6 3.7-10.4 [place] 384190-12-10 16:08:00 Test Item Value Reference Range Interpretation Comments RBC (test code = RBC) 4.60 4.20-5.40 [place] 384190-12-10 16:08:00 Test Item Value Reference Range Interpretation Comments Hgb (test code = Hgb) 13.9 12.0-16.0 [place] [address]-12-10 16:08:00 Test Item Value Reference Range Interpretation Comments Hct (test code = Hct) 42.2 36.0-48.0 [place] [address]-12-10 16:08:00 Test Item Value Reference Range Interpretation Comments MCV (test code = MCV) 91.7 80.0-98.0 [place] [address]-12-10 16:08:00 Test Item Value Reference Range Interpretation Comments MCH (test code = MCH) 30.2 pg 27.0-31.0 [place] 384190-12-10 16:08:00 Test Item Value Reference Range Interpretation Comments MCHC (test code = MCHC) 32.9 32.0-36.0 [place] 384190-12-10 16:08:00 Test Item Value Reference Range Interpretation Comments RDW (test code = RDW) 14.5 11.5-14.5 [facility] CenterMfednhnXEKBNFQAED6832-16-27 16:08:00 Test Item Value Reference Range Interpretation Comments Platelet (test code = Platelet) 399 133-450 [facility] CenterQxtdmwkHVQLQLLLJT6183-95-75 16:08:00 Test Item Value Reference Range Interpretation Comments MPV (test code = MPV) 7.4 7.4-10.4 [facility] CenterGzazewwMMOWGYGSJD8277-28-41 16:08:00 Test Item Value Reference Range Interpretation Comments PROTIME (test code = PROTIME) 12.5 s 12.0-14.7 [facility] CenterXqgqcfjZWBZHBLYMQ8581-41-69 16:08:00 Test Item Value Reference Range Interpretation Comments INR (test code = INR) 0.93 1 0.85-1.17 [facility] CenterTipabocBCNHDPACZK5229-70-19 16:08:00 Test Item Value Reference Range Interpretation Comments aPTT (test code = aPTT) 31.2 s 22.9-35.8 [facility] CenterNczmpxhGVMQRESXHR4015-86-07 16:08:00 Test Item Value Reference Range Interpretation Comments Segs (test code = Segs) 56.2 45.0-75.0 [facility] CenterKnxplkkWQSGEFZLWI5790-58-92 16:08:00 Test Item Value Reference Range Interpretation Comments Lymphocytes (test code = Lymphocytes) 34.8 20.0-40.0 [facility] CenterSudgqxxSGHXNWCMUT0125-08-60 16:08:00 Test Item Value Reference Range Interpretation Comments Monocytes (test code = Monocytes) 5.9 2.0-12.0 [facility] CenterPfnqkwsULDDAEOUXT7379-92-65 16:08:00 Test Item Value Reference Range Interpretation Comments Eosinophils (test code = 2.6 See_Comment [A utomated message] The Eosinophils) system which ge nerated this result tra nsmitted reference range : <=4.0. The reference r zechariah was not used to int erpret this result as normal/abnormal . [facility] CenterKufxmenCBUHUPCHJJ0219-48-94 16:08:00 Test Item Value Reference Range Interpretation Comments Basophils (test code = 0.5 See_Comment [Aut omated message] The Basophils) system which ge nerated this result tra nsmitted reference range : <=1.0. The reference r zechariah was not used to int erpret this result as normal/abnormal . [place] 384190-12-10 16:08:00 Test Item Value Reference Range Interpretation Comments Neutrophils # (test code = Neutrophils 3.7 1.5-8.1 #) [facility]NvensxiGSPDCFLPWO5659-13-02 16:08:00 Test Item Value Reference Range Interpretation Comments Lymphocytes # (test code = Lymphocytes 2.3 1.0-5.5 #) [facility] H[id number] 16:08:00 Test Item Value Reference Range Interpretation Comments Monocytes # (test code 0.4 See_Comment [Aut omated message] The = Monocytes #) system which generated this result tra nsmitted reference range : <=0.8. The reference r zechariah was not used to int erpret this result as normal/abnormal . [facility] HospitalBhwamqhFEZWRUYQAX2573-04-33 16:08:00 Test Item Value Reference Range Interpretation Comments Eosinophils # (test code 0.2 See_Comment [A utomated message] The = Eosinophils #) system whic h generated this result tra nsmitted reference range : <=0.5. The reference r zechariah was not used to int erpret this result as normal/abnormal . [facility] [id number] 16:08:00 Test Item Value Reference Range Interpretation Comments Hgb A1C (test code = Hgb A1C) 6.6 [facility] AND [id number] 16:08:00 Test Item Value Reference Range Interpretation Comments UA Color (test code = Yellow *NA*(04/24/20 UA Color) 10:08 AM) [facility] AND [id number] 16:08:00 Test Item Value Reference Range Interpretation Comments UA Turbidity (test code = Clear (04/24/20 UA Turbidity) 10:08 AM) [facility] [id number] 16:08:00 Test Item Value Reference Range Interpretation Comments UA Spec Grav (test *NA*(04/24/20 10:08 AM) code = UA Spec Grav) [facility] AND [id number] 16:08:00 Test Item Value Reference Range Interpretation Comments UA pH (test code = UA pH) 6.0 1 5.0-8.0 [facility] AND [id number] 16:08:00 Test Item Value Reference Range Interpretation Comments UA Protein (test code Negative (04/24/20 = UA Protein) 10:08 AM) [facility] [id number] 16:08:00 Test Item Value Reference Range Interpretation Comments UA Glucose (test code = UA Glucose) 250 mg/dL [facility] [id number] 16:08:00 Test Item Value Reference Range Interpretation Comments UA Ketones (test code Negative *NA*(04/24/20 = UA Ketones) 10:08 AM) [facility] [id number] 16:08:00 Test Item Value Reference Range Interpretation Comments UA Bili (test code = Negative *NA*(04/24/20 UA Bili) 10:08 AM) [facility] [id number] 16:08:00 Test Item Value Reference Range Interpretation Comments UA Blood (test code = Negative (04/24/20 10:08 UA Blood) AM) [facility] [id number] 16:08:00 Test Item Value Reference Range Interpretation Comments UA Urobilinogen (test code = UA 0.2 0.1-1.0 Urobilinogen) [facility] [id number] 16:08:00 Test Item Value Reference Range Interpretation Comments UA Nitrite (test code Negative (04/24/20 = UA Nitrite) 10:08 AM) [facility] [id number] 16:08:00 Test Item Value Reference Range Interpretation Comments UA Leuk Est (test Negative (04/24/20 10:08 code = UA Leuk Est) AM) [facility] [id number] 16:08:00 Test Item Value Reference Range Interpretation Comments Micro? (test code = Performed (04/24/20 10:08 Micro?) AM) [facility] [id number] 16:08:00 Test Item Value Reference Range Interpretation Comments UA Sq Epi (test code = UA Sq Epi) Few /LPF [facility] [id number] 16:08:00 Test Item Value Reference Range Interpretation Comments UA WBC (test code = UA WBC) 0-2 /HPF [facility] [id number] 16:08:00 Test Item Value Reference Range Interpretation Comments UA RBC (test code = 0-2 /HPF See_Comment [Automa jose message] The UA RBC) system which ge nerated this result tra nsmitted reference range : <=2. The reference range was not used to interpr et this result as scott l/abnormal. [facility] AND [id number] 16:08:00 Test Item Value Reference Range Interpretation Comments UA Bacteria (test code = UA Few /HPF Bacteria) [facility]2020-06-17 09:07:00 Test Item Value Reference Range Interpretation Comments Glucose Lvl (test code = Glucose Lvl) 173 70-99 [facility]2020-06-17 09:07:00 Test Item Value Reference Range Interpretation Comments BUN (test code = BUN) 11 7-22 [place] 559710-06-17 09:07:00 Test Item Value Reference Range Interpretation Comments Creatinine Lvl (test code = Creatinine 0.85 0.50-1.40 Lvl) [facility]2020-06-17 09:07:00 Test Item Value Reference Range Interpretation Comments Sodium Lvl (test code = Sodium Lvl) 136 135-145 [facility]2020-06-17 09:07:00 Test Item Value Reference Range Interpretation Comments Potassium Lvl (test code = Potassium 4.5 3.5-5.1 Lvl) [facility]2020-06-17 09:07:00 Test Item Value Reference Range Interpretation Comments Chloride Lvl (test code = Chloride Lvl) 103 95-109 [facility]2020-06-17 09:07:00 Test Item Value Reference Range Interpretation Comments CO2 (test code = CO2) 30 24-32 [facility]2020-06-17 09:07:00 Test Item Value Reference Range Interpretation Comments Calcium Lvl (test code = Calcium Lvl) 8.2 8.5-10.5 [facility]2020-06-17 09:07:00 Test Item Value Reference Range Interpretation Comments AGAP (test code = AGAP) 7.5 10.0-20.0 [place] 559710-06-17 09:07:00 Test Item Value Reference Range Interpretation Comments eGFR (test code = eGFR) 73 [facility] HospitalWlabdsiMUJYWNARER4848-31-54 09:07:00 Test Item Value Reference Range Interpretation Comments WBC (test code = WBC) 11.0 3.7-10.4 [facility] CenterQibctxiCBPDUOPFAS0979-31-82 09:07:00 Test Item Value Reference Range Interpretation Comments RBC (test code = RBC) 3.47 4.20-5.40 [facility] CenterFvutitrYMKFQWEWEL2174-33-97 09:07:00 Test Item Value Reference Range Interpretation Comments Hgb (test code = Hgb) 10.6 12.0-16.0 [facility] CenterWkehjopWVIBZCMUUQ5030-84-57 09:07:00 Test Item Value Reference Range Interpretation Comments Hct (test code = Hct) 31.7 36.0-48.0 [facility] CenterFbqscjcGDKZWPFQQE2452-50-63 09:07:00 Test Item Value Reference Range Interpretation Comments MCV (test code = MCV) 91.3 80.0-98.0 [facility] CenterHwiojqbOTPNMNTACN3187-23-66 09:07:00 Test Item Value Reference Range Interpretation Comments MCH (test code = MCH) 30.6 pg 27.0-31.0 [facility] CenterCddsaviELDTXTZPTT2118-35-88 09:07:00 Test Item Value Reference Range Interpretation Comments MCHC (test code = MCHC) 33.6 32.0-36.0 [facility] CenterQusuykyGFOKZGCGNP5364-96-69 09:07:00 Test Item Value Reference Range Interpretation Comments RDW (test code = RDW) 13.8 11.5-14.5 [facility] CenterJussxraEXDTRNACNB6083-20-77 09:07:00 Test Item Value Reference Range Interpretation Comments Platelet (test code = Platelet) 243 133-450 [facility] CenterGcredccHVAUGSDHZH5095-29-20 09:07:00 Test Item Value Reference Range Interpretation Comments MPV (test code = MPV) 6.8 7.4-10.4 [facility] CenterBazgslbTAPPQMJQEE2889-59-25 09:07:00 Test Item Value Reference Range Interpretation Comments Segs (test code = Segs) 83.6 45.0-75.0 [facility] CenterPudwcpcSEIBJNZOJN2133-94-63 09:07:00 Test Item Value Reference Range Interpretation Comments Lymphocytes (test code = Lymphocytes) 11.1 20.0-40.0 [facility] CenterApocpvkNRJBNWDKWN8612-80-68 09:07:00 Test Item Value Reference Range Interpretation Comments Monocytes (test code = Monocytes) 5.3 2.0-12.0 [place] 384190-06-17 09:07:00 Test Item Value Reference Range Interpretation Comments Neutrophils # (test code = Neutrophils 9.2 1.5-8.1 #) [place] 384190-06-17 09:07:00 Test Item Value Reference Range Interpretation Comments Lymphocytes # (test code = Lymphocytes 1.2 1.0-5.5 #) [place] 384190-06-17 09:07:00 Test Item Value Reference Range Interpretation Comments Monocytes # (test code 0.6 See_Comment [Aut omated message] The = Monocytes #) system which generated this result tra nsmitted reference range : <=0.8. The reference r zechariah was not used to int erpret this result as normal/abnormal . [place] 559710-06-17 09:07:00 Test Item Value Reference Range Interpretation Comments Glucose Lvl (test code = Glucose Lvl) 173 70-99 [place] 559710-06-17 09:07:00 Test Item Value Reference Range Interpretation Comments BUN (test code = BUN) 11 7-22 [place] [address]-06-17 09:07:00 Test Item Value Reference Range Interpretation Comments Creatinine Lvl (test code = Creatinine 0.85 0.50-1.40 Lvl) [place] 559710-06-17 09:07:00 Test Item Value Reference Range Interpretation Comments Sodium Lvl (test code = Sodium Lvl) 136 135-145 [place] [address]-06-17 09:07:00 Test Item Value Reference Range Interpretation Comments Potassium Lvl (test code = Potassium 4.5 3.5-5.1 Lvl) [place] [address]-06-17 09:07:00 Test Item Value Reference Range Interpretation Comments Chloride Lvl (test code = Chloride Lvl) 103 95-109 [place] 559710-06-17 09:07:00 Test Item Value Reference Range Interpretation Comments CO2 (test code = CO2) 30 24-32 [place] 559710-06-17 09:07:00 Test Item Value Reference Range Interpretation Comments Calcium Lvl (test code = Calcium Lvl) 8.2 8.5-10.5 [place] 559710-06-17 09:07:00 Test Item Value Reference Range Interpretation Comments AGAP (test code = AGAP) 7.5 10.0-20.0 [facility] [id number] 09:07:00 Test Item Value Reference Range Interpretation Comments eGFR (test code = eGFR) 73 [facility]DcmuhgfIJTXDNTBWN9713-81-79 09:07:00 Test Item Value Reference Range Interpretation Comments WBC (test code = WBC) 11.0 3.7-10.4 [facility] CenterJaksncuEBISWBHSOD4589-64-13 09:07:00 Test Item Value Reference Range Interpretation Comments RBC (test code = RBC) 3.47 4.20-5.40 [facility] HospitalWevgllpEWEVKGPAJK2413-89-10 09:07:00 Test Item Value Reference Range Interpretation Comments Hgb (test code = Hgb) 10.6 12.0-16.0 [facility] CenterEuumfglSBTYUFKBYC1816-10-68 09:07:00 Test Item Value Reference Range Interpretation Comments Hct (test code = Hct) 31.7 36.0-48.0 [facility] CenterNddhweeDJVVWWWWYK9115-75-93 09:07:00 Test Item Value Reference Range Interpretation Comments MCV (test code = MCV) 91.3 80.0-98.0 [facility] CenterJrxjfrdYGWZSQTQMI6305-74-18 09:07:00 Test Item Value Reference Range Interpretation Comments MCH (test code = MCH) 30.6 pg 27.0-31.0 [facility] CenterCndsotkEVOHKBWFDS2009-52-28 09:07:00 Test Item Value Reference Range Interpretation Comments MCHC (test code = MCHC) 33.6 32.0-36.0 [facility] CenterEaknsjrDYOYFTLVZF2039-14-82 09:07:00 Test Item Value Reference Range Interpretation Comments RDW (test code = RDW) 13.8 11.5-14.5 [facility] HospitalToyjvlfZTJTEKKBHS4865-32-59 09:07:00 Test Item Value Reference Range Interpretation Comments Platelet (test code = Platelet) 243 133-450 [facility] CenterKgljowjSNSOMUKPNS6110-93-03 09:07:00 Test Item Value Reference Range Interpretation Comments MPV (test code = MPV) 6.8 7.4-10.4 [facility] CenterBkrvwzbVULEHGXYBQ1369-50-43 09:07:00 Test Item Value Reference Range Interpretation Comments Segs (test code = Segs) 83.6 45.0-75.0 [facility] CenterCteaudbSDJWEOMWGS4612-76-83 09:07:00 Test Item Value Reference Range Interpretation Comments Lymphocytes (test code = Lymphocytes) 11.1 20.0-40.0 [facility] CenterCqypydjPEJLQOHBXN2916-00-84 09:07:00 Test Item Value Reference Range Interpretation Comments Monocytes (test code = Monocytes) 5.3 2.0-12.0 [facility] CenterOwyunbmALILCZSMOA7374-76-02 09:07:00 Test Item Value Reference Range Interpretation Comments Neutrophils # (test code = Neutrophils 9.2 1.5-8.1 #) [facility] CenterRpglmshXRGLZOIIVH6620-33-41 09:07:00 Test Item Value Reference Range Interpretation Comments Lymphocytes # (test code = Lymphocytes 1.2 1.0-5.5 #) [facility] CenterZjzkdlfCGPMUUZEKF8387-29-81 09:07:00 Test Item Value Reference Range Interpretation Comments Monocytes # (test code 0.6 See_Comment [Aut omated message] The = Monocytes #) system which generated this result tra nsmitted reference range : <=0.8. The reference r zechariah was not used to int erpret this result as normal/abnormal . [facility] CenterMylctevNLZTLVUUSE0618-68-15 21:10:00 Test Item Value Reference Range Interpretation Comments WBC (test code = WBC) 13.0 3.7-10.4 [facility] CenterVgtniyeYZAYAFAJNR8159-04-40 21:10:00 Test Item Value Reference Range Interpretation Comments RBC (test code = RBC) 3.42 4.20-5.40 [facility] CenterKnmsycyRHCGGVRBHY5958-94-49 21:10:00 Test Item Value Reference Range Interpretation Comments Hgb (test code = Hgb) 10.3 12.0-16.0 [place] 384190-06-16 21:10:00 Test Item Value Reference Range Interpretation Comments Hct (test code = Hct) 31.9 36.0-48.0 [facility] CenterKnhysutCLZFSZZPJM8526-15-88 21:10:00 Test Item Value Reference Range Interpretation Comments MCV (test code = MCV) 93.2 80.0-98.0 [facility] CenterQsyhoupDXIWRXFJMW9419-45-06 21:10:00 Test Item Value Reference Range Interpretation Comments MCH (test code = MCH) 30.2 pg 27.0-31.0 [facility] CenterWoxevfyPBCGSFUPHU5104-45-97 21:10:00 Test Item Value Reference Range Interpretation Comments MCHC (test code = MCHC) 32.4 32.0-36.0 [facility]SxfhrktDYCEHBGQDQ9789-93-50 21:10:00 Test Item Value Reference Range Interpretation Comments RDW (test code = RDW) 13.9 11.5-14.5 [facility] HospitalGbkwcjeAODOZLCVXY3244-78-50 21:10:00 Test Item Value Reference Range Interpretation Comments Platelet (test code = Platelet) 222 133-450 [facility] CenterWebpjaeJWJFIEUFUL5099-70-37 21:10:00 Test Item Value Reference Range Interpretation Comments MPV (test code = MPV) 6.9 7.4-10.4 [facility] CenterRppjuiySPKZSKMWAK9799-46-52 21:10:00 Test Item Value Reference Range Interpretation Comments WBC (test code = WBC) 13.0 3.7-10.4 [facility] CenterUvcgfpiODOAWCEGOY7254-72-15 21:10:00 Test Item Value Reference Range Interpretation Comments RBC (test code = RBC) 3.42 4.20-5.40 [facility] CenterKqgmyewYACRITTDNW8955-80-32 21:10:00 Test Item Value Reference Range Interpretation Comments Hgb (test code = Hgb) 10.3 12.0-16.0 [facility] CenterTozlohoZMPIPECHXI8400-78-12 21:10:00 Test Item Value Reference Range Interpretation Comments Hct (test code = Hct) 31.9 36.0-48.0 [facility] CenterWhspvgzKKCWHLOSFI3026-98-97 21:10:00 Test Item Value Reference Range Interpretation Comments MCV (test code = MCV) 93.2 80.0-98.0 [facility] CenterUjlqmlcLCCBQJZQZW7921-74-79 21:10:00 Test Item Value Reference Range Interpretation Comments MCH (test code = MCH) 30.2 pg 27.0-31.0 [facility] CenterOfwzhwqFLVHNFIJZB2281-66-63 21:10:00 Test Item Value Reference Range Interpretation Comments MCHC (test code = MCHC) 32.4 32.0-36.0 [facility] CenterIyafvhpDXLSDREEDD2415-42-59 21:10:00 Test Item Value Reference Range Interpretation Comments RDW (test code = RDW) 13.9 11.5-14.5 [facility] CenterKvwbtjeBOWCDCHUQT3673-36-43 21:10:00 Test Item Value Reference Range Interpretation Comments Platelet (test code = Platelet) 222 133-450 [facility] CenterWwylrsfSSNJHHVIMO5026-65-58 21:10:00 Test Item Value Reference Range Interpretation Comments MPV (test code = MPV) 6.9 7.4-10.4 [facility] [id number] 19:16:00 Test Item Value Reference Range Interpretation Comments RBC product (test code Product available = RBC product) (10/30/19 2:16 PM) [facility] [id number] 19:16:00 Test Item Value Reference Range Interpretation Comments RBC product (test code Product available = RBC product) (10/30/19 2:16 PM) [facility] - [id number] 18:12:00 Test Item Value Reference Range Interpretation Comments MRSA by PCR (test Negative (10/25/19 1:12 code = MRSA by PCR) PM) [facility] [id number] 18:12:00 Test Item Value Reference Range Interpretation Comments ABO/Rh (test code = ABO/Rh) O NEG [facility] [employer] [facility] [id number] 18:12:00 Test Item Value Reference Range Interpretation Comments Antibody Scrn (test Negative (10/25/19 1:12 code = Antibody Scrn) PM) [facility] [employer] [id number] 18:12:00 Test Item Value Reference Range Interpretation Comments Glucose Lvl (test code = Glucose Lvl) 92 70-99 [facility] [employer] [id number] 18:12:00 Test Item Value Reference Range Interpretation Comments BUN (test code = BUN) 12 7-22 [facility] [employer] [id number] 18:12:00 Test Item Value Reference Range Interpretation Comments Creatinine Lvl (test code = Creatinine 0.83 0.50-1.40 Lvl) [facility] [employer] [id number] 18:12:00 Test Item Value Reference Range Interpretation Comments Sodium Lvl (test code = Sodium Lvl) 139 135-145 [facility] [employer] [id number] 18:12:00 Test Item Value Reference Range Interpretation Comments Potassium Lvl (test code = Potassium 4.3 3.5-5.1 Lvl) [facility] [employer] [id number] 18:12:00 Test Item Value Reference Range Interpretation Comments Chloride Lvl (test code = Chloride Lvl) 104 95-109 [facility]2020-06-11 18:12:00 Test Item Value Reference Range Interpretation Comments CO2 (test code = CO2) 29 24-32 [place] 559710-06-11 18:12:00 Test Item Value Reference Range Interpretation Comments Calcium Lvl (test code = Calcium Lvl) 9.2 8.5-10.5 [place] 559710-06-11 18:12:00 Test Item Value Reference Range Interpretation Comments AGAP (test code = AGAP) 10.3 10.0-20.0 [place] [address]-06-11 18:12:00 Test Item Value Reference Range Interpretation Comments eGFR (test code = eGFR) 75 [facility] CenterAyqurndEPGQXIXABM6960-38-31 18:12:00 Test Item Value Reference Range Interpretation Comments Segs (test code = Segs) 47.8 45.0-75.0 [place] [address]-06-11 18:12:00 Test Item Value Reference Range Interpretation Comments Lymphocytes (test code = Lymphocytes) 45.1 20.0-40.0 [place] [address]-06-11 18:12:00 Test Item Value Reference Range Interpretation Comments Monocytes (test code = Monocytes) 5.5 2.0-12.0 [place] [address]-06-11 18:12:00 Test Item Value Reference Range Interpretation Comments Eosinophils (test code = 1.3 See_Comment [A utomated message] The Eosinophils) system which ge nerated this result tra nsmitted reference range : <=4.0. The reference r zechariah was not used to int erpret this result as normal/abnormal . [facility] CenterFahewpxFOSGLFEPOL7190-53-43 18:12:00 Test Item Value Reference Range Interpretation Comments Basophils (test code = 0.3 See_Comment [Aut omated message] The Basophils) system which ge nerated this result tra nsmitted reference range : <=1.0. The reference r zechariah was not used to int erpret this result as normal/abnormal . [place] 384190-06-11 18:12:00 Test Item Value Reference Range Interpretation Comments Neutrophils # (test code = Neutrophils 3.5 1.5-8.1 #) [place] 384190-06-11 18:12:00 Test Item Value Reference Range Interpretation Comments Lymphocytes # (test code = Lymphocytes 3.3 1.0-5.5 #) [facility] CenterJmjevjyGYJTGSEHRP7447-55-95 18:12:00 Test Item Value Reference Range Interpretation Comments Monocytes # (test code 0.4 See_Comment [Aut omated message] The = Monocytes #) system which generated this result tra nsmitted reference range : <=0.8. The reference r zechariah was not used to int erpret this result as normal/abnormal . [facility] CenterFxhmytnOPPZYKUFZI7257-65-60 18:12:00 Test Item Value Reference Range Interpretation Comments Eosinophils # (test code 0.1 See_Comment [A utomated message] The = Eosinophils #) system whic h generated this result tra nsmitted reference range : <=0.5. The reference r zechariah was not used to int erpret this result as normal/abnormal . [facility] CenterRnkvbryQLLODCCRLS4002-33-31 18:12:00 Test Item Value Reference Range Interpretation Comments WBC (test code = WBC) 7.4 3.7-10.4 [facility] CenterXnpvvwoYCLXBLDPOE9351-17-90 18:12:00 Test Item Value Reference Range Interpretation Comments RBC (test code = RBC) 5.13 4.20-5.40 [facility] CenterFrpfqsxAHYPPWROJA2753-02-02 18:12:00 Test Item Value Reference Range Interpretation Comments Hgb (test code = Hgb) 15.5 12.0-16.0 [facility] CenterScyfljbTMMFLEAMZK3458-41-23 18:12:00 Test Item Value Reference Range Interpretation Comments Hct (test code = Hct) 47.6 36.0-48.0 [facility] CenterUygdfmpWYXAJPFKQD2967-11-85 18:12:00 Test Item Value Reference Range Interpretation Comments MCV (test code = MCV) 92.9 80.0-98.0 [facility] CenterIykzehfBJSMFSMGXX8253-59-60 18:12:00 Test Item Value Reference Range Interpretation Comments MCH (test code = MCH) 30.2 pg 27.0-31.0 [facility] CenterQqotxcpAMLDGUESID9317-88-52 18:12:00 Test Item Value Reference Range Interpretation Comments MCHC (test code = MCHC) 32.5 32.0-36.0 [facility] CenterWtwkhwtKANLWBIVJK0922-27-93 18:12:00 Test Item Value Reference Range Interpretation Comments RDW (test code = RDW) 13.8 11.5-14.5 [facility] HospitalOkopbnnQJIORKMXWH4040-94-74 18:12:00 Test Item Value Reference Range Interpretation Comments Platelet (test code = Platelet) 365 133-450 [facility] HospitalNkfxncaFVUZEWZTEL2176-27-51 18:12:00 Test Item Value Reference Range Interpretation Comments MPV (test code = MPV) 6.9 7.4-10.4 [facility] HospitalDcgxtkkYGIUXPNMAA0299-37-05 18:12:00 Test Item Value Reference Range Interpretation Comments PT (test code = PT) 12.4 s 12.0-14.7 [facility] HospitalXmyaukjDVQYXNBUTS9700-74-83 18:12:00 Test Item Value Reference Range Interpretation Comments INR (test code = INR) 0.92 1 0.85-1.17 [facility] HospitalVxbyobqYSDCBKSDBD0996-98-63 18:12:00 Test Item Value Reference Range Interpretation Comments PTT (test code = PTT) 30.1 s 22.9-35.8 [facility] [id number] 18:12:00 Test Item Value Reference Range Interpretation Comments Hgb A1C (test code = Hgb A1C) 7.2 [facility] AND [id number] 18:12:00 Test Item Value Reference Range Interpretation Comments UA Turbidity (test code = Clear (10/25/19 1:12 UA Turbidity) PM) [facility] AND [id number] 18:12:00 Test Item Value Reference Range Interpretation Comments UA Spec Grav (test code = UA Spec 1.025 1 Grav) [facility] AND [id number] 18:12:00 Test Item Value Reference Range Interpretation Comments UA pH (test code = UA pH) 5.0 1 5.0-8.0 [facility] AND [id number] 18:12:00 Test Item Value Reference Range Interpretation Comments UA Protein (test code = UA Negative mg/dL Protein) [facility] AND [id number] 18:12:00 Test Item Value Reference Range Interpretation Comments UA Glucose (test code = UA Glucose) 500 mg/dL [facility] AND [id number] 18:12:00 Test Item Value Reference Range Interpretation Comments UA Ketones (test code = UA Negative mg/dL Ketones) [facility] AND [id number] 18:12:00 Test Item Value Reference Range Interpretation Comments UA Bili (test code = Negative *NA*(10/25/19 UA Bili) 1:12 PM) [facility] [id number] 18:12:00 Test Item Value Reference Range Interpretation Comments UA Blood (test code = Negative (10/25/19 1:12 [facility]A Blood) PM) [facility] [id number] 18:12:00 Test Item Value Reference Range Interpretation Comments UA Nitrite (test code Negative (10/25/19 1:12 = UA Nitrite) PM) [facility] [id number] 18:12:00 Test Item Value Reference Range Interpretation Comments UA Leuk Est (test Negative (10/25/19 1:12 code = UA Leuk Est) PM) [facility] [id number] 18:12:00 Test Item Value Reference Range Interpretation Comments UA Sq Epi (test code = UA Sq Occasional /LPF Epi) [facility] [id number] 18:12:00 Test Item Value Reference Range Interpretation Comments UA WBC (test code = 2 See_Comment [Automa jose message] The UA WBC) system which ge nerated this result transmit jose reference range : <=5. The reference range was not used to interpr et this result as scott l/abnormal. [facility] [id number] 18:12:00 Test Item Value Reference Range Interpretation Comments UA RBC (test code = 1 See_Comment [Automa jose message] The UA RBC) system which ge nerated this result transmit jose reference range : <=2. The reference range was not used to interpr et this result as scott l/abnormal. [facility] [id number] 18:12:00 Test Item Value Reference Range Interpretation Comments UA Color (test code = UA Color) Ltyellow [facility] [id number] 18:12:00 Test Item Value Reference Range Interpretation Comments UA Urobilinogen (test code = UA <=1.0 mg/dL 0.1-1.0 Urobilinogen) [facility] - [id number] 18:12:00 Test Item Value Reference Range Interpretation Comments MRSA by PCR (test Negative (10/25/19 1:12 code = MRSA by PCR) PM) [facility] [id number] 18:12:00 Test Item Value Reference Range Interpretation Comments ABO/Rh (test code = ABO/Rh) O NEG [facility] [id number] 18:12:00 Test Item Value Reference Range Interpretation Comments Antibody Scrn (test Negative (10/25/19 1:12 code = Antibody Scrn) PM) [facility] [id number] 18:12:00 Test Item Value Reference Range Interpretation Comments Glucose Lvl (test code = Glucose Lvl) 92 70-99 [facility] [id number] 18:12:00 Test Item Value Reference Range Interpretation Comments BUN (test code = BUN) 12 - [facility] [id number] 18:12:00 Test Item Value Reference Range Interpretation Comments Creatinine Lvl (test code = Creatinine 0.83 0.50-1.40 Lvl) [facility] [id number] 18:12:00 Test Item Value Reference Range Interpretation Comments Sodium Lvl (test code = Sodium Lvl) 139 135-145 [facility] [id number] 18:12:00 Test Item Value Reference Range Interpretation Comments Potassium Lvl (test code = Potassium 4.3 3.5-5.1 Lvl) [facility] [id number] 18:12:00 Test Item Value Reference Range Interpretation Comments Chloride Lvl (test code = Chloride Lvl) 104 95-109 [facility] [id number] 18:12:00 Test Item Value Reference Range Interpretation Comments CO2 (test code = CO2) 29 24-32 [facility] [id number] 18:12:00 Test Item Value Reference Range Interpretation Comments Calcium Lvl (test code = Calcium Lvl) 9.2 8.5-10.5 [facility] [id number] 18:12:00 Test Item Value Reference Range Interpretation Comments AGAP (test code = AGAP) 10.3 10.0-20.0 [facility] [id number] 18:12:00 Test Item Value Reference Range Interpretation Comments eGFR (test code = eGFR) 75 [place] 384190-06-11 18:12:00 Test Item Value Reference Range Interpretation Comments Segs (test code = Segs) 47.8 45.0-75.0 [facility] CenterObuqzddFMDTAEJNUH9264-11-76 18:12:00 Test Item Value Reference Range Interpretation Comments Lymphocytes (test code = Lymphocytes) 45.1 20.0-40.0 [place] 384190-06-11 18:12:00 Test Item Value Reference Range Interpretation Comments Monocytes (test code = Monocytes) 5.5 2.0-12.0 [place] 384190-06-11 18:12:00 Test Item Value Reference Range Interpretation Comments Eosinophils (test code = 1.3 See_Comment [A utomated message] The Eosinophils) system which ge nerated this result tra nsmitted reference range : <=4.0. The reference r zechariah was not used to int erpret this result as normal/abnormal . [facility] CenterJhjinrnMUSXLOMJTT6633-25-82 18:12:00 Test Item Value Reference Range Interpretation Comments Basophils (test code = 0.3 See_Comment [Aut omated message] The Basophils) system which ge nerated this result tra nsmitted reference range : <=1.0. The reference r zechariah was not used to int erpret this result as normal/abnormal . [facility] CenterGiywhwaSBEJFAXRWB8236-15-29 18:12:00 Test Item Value Reference Range Interpretation Comments Neutrophils # (test code = Neutrophils 3.5 1.5-8.1 #) [facility] [id number] 18:12:00 Test Item Value Reference Range Interpretation Comments Lymphocytes # (test code = Lymphocytes 3.3 1.0-5.5 #) [place] 384190-06-11 18:12:00 Test Item Value Reference Range Interpretation Comments Monocytes # (test code 0.4 See_Comment [Aut omated message] The = Monocytes #) system which generated this result tra nsmitted reference range : <=0.8. The reference r zechariah was not used to int erpret this result as normal/abnormal . [place] 384190-06-11 18:12:00 Test Item Value Reference Range Interpretation Comments Eosinophils # (test code 0.1 See_Comment [A utomated message] The = Eosinophils #) system whic h generated this result tra nsmitted reference range : <=0.5. The reference r zechariah was not used to int erpret this result as normal/abnormal . [facility] Cent[id number] 18:12:00 Test Item Value Reference Range Interpretation Comments WBC (test code = WBC) 7.4 3.7-10.4 [facility] CenterVxufsjdXOMEHIRMJY4149-14-14 18:12:00 Test Item Value Reference Range Interpretation Comments RBC (test code = RBC) 5.13 4.20-5.40 [facility] Cent[id number] 18:12:00 Test Item Value Reference Range Interpretation Comments Hgb (test code = Hgb) 15.5 12.0-16.0 [facility] CenterH[id number] 18:12:00 Test Item Value Reference Range Interpretation Comments Hct (test code = Hct) 47.6 36.0-48.0 [facility] CenterBxotesqRBNENJQFEU9531-80-67 18:12:00 Test Item Value Reference Range Interpretation Comments MCV (test code = MCV) 92.9 80.0-98.0 [facility] CenterElgjgqmLMQIWKKEBF6937-84-89 18:12:00 Test Item Value Reference Range Interpretation Comments MCH (test code = MCH) 30.2 pg 27.0-31.0 [facility] CenterNkcqapyZAKOYDHIVI5896-91-12 18:12:00 Test Item Value Reference Range Interpretation Comments MCHC (test code = MCHC) 32.5 32.0-36.0 [facility] CenterXtaimdmWGDMHFLOAT9749-42-89 18:12:00 Test Item Value Reference Range Interpretation Comments RDW (test code = RDW) 13.8 11.5-14.5 [facility] CenterYuykyeeTTJWVQNHKU0049-28-65 18:12:00 Test Item Value Reference Range Interpretation Comments Platelet (test code = Platelet) 365 133-450 [facility] CenterSmupusbXMAICYBCZS7703-67-67 18:12:00 Test Item Value Reference Range Interpretation Comments MPV (test code = MPV) 6.9 7.4-10.4 [facility] CenterVizptdbDPGEQSZNKT2487-61-89 18:12:00 Test Item Value Reference Range Interpretation Comments PT (test code = PT) 12.4 s 12.0-14.7 [facility] CenterOjbpmpkHGBJBVFVWJ2567-04-37 18:12:00 Test Item Value Reference Range Interpretation Comments INR (test code = INR) 0.92 1 0.85-1.17 [facility]XBMBSZAAFC1531-[facility]-35 18:12:00 Test Item Value Reference Range Interpretation Comments PTT (test code = PTT) 30.1 s 22.9-35.8 [facility] [id number] 18:12:00 Test Item Value Reference Range Interpretation Comments Hgb A1C (test code = Hgb A1C) 7.2 [facility] AND [id number] 18:12:00 Test Item Value Reference Range Interpretation Comments UA Turbidity (test code = Clear (10/25/19 1:12 UA Turbidity) PM) [facility] AND [id number] 18:12:00 Test Item Value Reference Range Interpretation Comments UA Spec Grav (test code = UA Spec 1.025 1 Grav) [facility] AND [id number] 18:12:00 Test Item Value Reference Range Interpretation Comments UA pH (test code = UA pH) 5.0 1 5.0-8.0 [facility] AND [id number] 18:12:00 Test Item Value Reference Range Interpretation Comments UA Protein (test code = UA Negative mg/dL Protein) [facility] AND [id number] 18:12:00 Test Item Value Reference Range Interpretation Comments UA Glucose (test code = UA Glucose) 500 mg/dL [facility] AND [id number] 18:12:00 Test Item Value Reference Range Interpretation Comments UA Ketones (test code = UA Negative mg/dL Ketones) [facility] AND [id number] 18:12:00 Test Item Value Reference Range Interpretation Comments UA Bili (test code = Negative *NA*(10/25/19 UA Bili) 1:12 PM) [facility] AND [id number] 18:12:00 Test Item Value Reference Range Interpretation Comments UA Blood (test code = Negative (10/25/19 1:12 UA Blood) PM) [facility] AND [id number] 18:12:00 Test Item Value Reference Range Interpretation Comments UA Nitrite (test code Negative (10/25/19 1:12 = UA Nitrite) PM) [facility] AND [id number] 18:12:00 Test Item Value Reference Range Interpretation Comments UA Leuk Est (test Negative (10/25/19 1:12 code = UA Leuk Est) PM) [facility] AND [id number] 18:12:00 Test Item Value Reference Range Interpretation Comments UA Sq Epi (test code = UA Sq Occasional /LPF Epi) [facility] AND [id number] 18:12:00 Test Item Value Reference Range Interpretation Comments UA WBC (test code = 2 See_Comment [Automa jose message] The UA WBC) system which ge nerated this result transmit jose reference range : <=5. The reference range was not used to interpr et this result as scott l/abnormal. [facility] AND [id number] 18:12:00 Test Item Value Reference Range Interpretation Comments UA RBC (test code = 1 See_Comment [Automa jose message] The UA RBC) system which ge nerated this result transmit jose reference range : <=2. The reference range was not used to interpr et this result as scott l/abnormal. [facility] AND [id number] 18:12:00 Test Item Value Reference Range Interpretation Comments UA Color (test code = UA Color) Ltyellow [facility] AND [id number] 18:12:00 Test Item Value Reference Range Interpretation Comments UA Urobilinogen (test code = UA <=1.0 mg/dL 0.1-1.0 Urobilinogen) [facility] Hospit[id number] 17:24:00 Test Item Value Reference Range Interpretation Comments Coronavirus (COVID-19) Not Detected (10/25/19 SHARMIN (test code = 12:24 PM) Coronavirus (COVID-19) SHARMIN) [facility] HospitalWrutdjbTKTJUGHPKR6044-27-74 17:24:00 Test Item Value Reference Range Interpretation Comments Coronavirus (COVID-19) Not Detected (10/25/19 SHARMIN (test code = 12:24 PM) Coronavirus (COVID-19) SHARMIN) [facility]: Quantitative Duodenal [id number] 13:32:00 Test Item Value Reference Range Interpretation Comments Culture: Quantitative No Growth At 2 Days Duodenal Aspirate (test for aerobes No code = Culture: Anaerobes Isolated Quantitative Duodenal After 2 Days Aspirate) [facility]: Quantitative Duodenal [id number] 13:32:00 Test Item Value Reference Range Interpretation Comments Culture: Quantitative No Growth At 2 Days Duodenal Aspirate (test for aerobes No code = Culture: Anaerobes Isolated Quantitative Duodenal After 2 Days Aspirate) [facility]XlzykbuUETOTVCPQM2112-08-24 16:43:00 Test Item Value Reference Range Interpretation Comments Coronavirus (COVID-19) Not Detected (10/19/19 SHARMIN (test code = 11:43 AM) Coronavirus (COVID-19) SHARMIN) [facility] CenterGmwygsnDHZZWJETRE8657-83-82 16:43:00 Test Item Value Reference Range Interpretation Comments Coronavirus (COVID-19) Not Detected (10/19/19 SHARMIN (test code = 11:43 AM) Coronavirus (COVID-19) SHARMIN) [facility] [id number] 22:00:00 Test Item Value Reference Range Interpretation Comments CULTURE (BEAKER) (test No growth in 5 days code = 1095) BLOOD [id number] 22:00:00 Test Item Value Reference Range Interpretation Comments CULTURE (BEAKER) (test No growth in 5 days code = 1095) POCT-GLUCOSE [id number] 12:00:00 Test Item Value Reference Range Interpretation Comments POC-GLUCOSE METER 90 mg/dL 70-110 TESTED AT [address] ([facility]) (test code = [facility] 1538) [id number] POCT-GLUCOSE [id number] 08:25:00 Test Item Value Reference Range Interpretation Comments POC-GLUCOSE METER 103 mg/dL 70-110 TESTED AT [address] ([facility]) (test code [facility] [place] = 1538) [id number] POCT-GLUCOSE [id number] 20:14:00 Test Item Value Reference Range Interpretation Comments POC-GLUCOSE METER 135 mg/dL 70-110 H TESTED AT [address] ([facility]) (test code [facility] [place] = 1538) [id number] POCT-GLUCOSE [id number] 20:13:00 Test Item Value Reference Range Interpretation Comments POC-GLUCOSE METER 101 mg/dL 70-110 TESTED AT [address] ([facility]) (test code [facility] [place] = 1538) [address] RAD, CHEST, 2 [id number] 16:34:00Reason for exam:->f/u infiltrateFINAL REPORT CHEST, AP AND LATERAL. HISTORY: Follow-up infiltrate. COMPARISON: None available. Impression: In this patient with reported history of infiltrate, no prior examinations are available for comparison. Mild left basilar/retrocardiac opacities noted which may reflect atelectasis. An underlying airspace process cannot be entirely excluded on the basis of this examination.There is no evidence for large focal consolidation, pneumothorax, or significant pleural effusion. The cardiomediastinal silhouette is within normal limits. Cervical fusion hardware noted. No acute osseous abnormalities identified. Signed: Fabien Clark MDReport Verified Date/Time: 12/22/2018 16:34:43Reading Location: [facility] Radiology Reading Room POCT-GLUCOSE METER 2018-12-22 08:37:00 Test Item Value Reference Range Interpretation Comments POC-GLUCOSE METER 148 mg/dL 70-110 H TESTED AT [address] ([facility]) (test code [facility] [place] = 1538) [id number] BASIC METABOLIC [id number] 05:01:00 Test Item Value Reference Range Interpretation [...] 697) EGFR (BEAKER) (test 77 mL/min/1.73 ESTIMA JOSE GFR IS code = 1092) sq m NOT ACCURATE CREATININE CLEARANCE IN PREDICTING GLOMERULAR FILTRATION RATE . ESTIMATED GFR I S NOT APPLICABLE FOR DIALYSIS PATIEN TS. CBC W/PLT COUNT & AUTO [id number] 04:38:00 Test Item Value Reference Range Interpretation [...] 417) IMMATURE GRANULOCYTES-RELATIVE 0 % 0-0 PERCENT ([facility]) (test code = 2801) POCT-GLUCOSE [id number] 20:46:00 Test Item Value Reference Range Interpretation Comments POC-GLUCOSE METER 236 mg/dL 70-110 H TESTED AT [facility] [address] ([facility]) (test code [facility] [place] = 1538) [address] POCT-GLUCOSE [id number] 18:27:00 Test Item Value Reference Range Interpretation Comments POC-GLUCOSE METER 100 mg/dL 70-110 TESTED AT [address] ([facility]) (test code [facility] [place] = 1538) [address] CHEM [id number] 10:36:00 Test Item Value Reference Range Interpretation Comments Magnesium Lvl (test code = Magnesium 2.5 1.8-2.4 Lvl) [facility] [employer] [id number] 10:36:00 Test Item Value Reference Range Interpretation Comments Phosphorus (test code = Phosphorus) 3.1 2.5-4.5 [facility] [employer] [id number] 10:36:00 Test Item Value Reference Range Interpretation Comments Total Protein (test code = Total 7.7 6.4-8.4 Protein) [facility] [employer] [id number] 10:36:00 Test Item Value Reference Range Interpretation Comments Calcium Lvl (test code = Calcium Lvl) 8.7 8.5-10.5 [facility] [employer] [id number] 10:36:00 Test Item Value Reference Range Interpretation Comments CO2 (test code = CO2) 24 24-32 [facility] [employer] [id number] 10:36:00 Test Item Value Reference Range Interpretation Comments Chloride Lvl (test code = Chloride Lvl) 101 95-109 [facility] [employer] [id number] 10:36:00 Test Item Value Reference Range Interpretation Comments Potassium Lvl (test code = Potassium 4.1 3.5-5.1 Lvl) [facility] [employer] [id number] 10:36:00 Test Item Value Reference Range Interpretation Comments Alk Phos (test code = Alk Phos) 108 39-136 [facility] [employer] [id number] 10:36:00 Test Item Value Reference Range Interpretation Comments AST (test code = AST) 44 See_Comment [Auto mated message] The system which ge nerated this result transmit jose reference range : <=37. The reference range was not used to interpr et this result as scott l/abnormal. [facility]2018-01-25 10:36:00 Test Item Value Reference Range Interpretation Comments Bili Total (test code = Bili Total) 0.3 0.2-1.3 [facility]2018-01-25 10:36:00 Test Item Value Reference Range Interpretation Comments ALT (test code = ALT) 71 See_Comment [Auto mated message] The system which ge nerated this result transmit jose reference range : <=65. The reference range was not used to interpr et this result as scott l/abnormal. [facility]2018-01-25 10:36:00 Test Item Value Reference Range Interpretation Comments Albumin Lvl (test code = Albumin Lvl) 3.2 3.5-5.0 [facility]2018-01-25 10:36:00 Test Item Value Reference Range Interpretation Comments eGFR (test code = eGFR) 94 [facility]2018-01-25 10:36:00 Test Item Value Reference Range Interpretation Comments Sodium Lvl (test code = Sodium Lvl) 136 135-145 [facility]2018-01-25 10:36:00 Test Item Value Reference Range Interpretation Comments Creatinine Lvl (test code = Creatinine 0.70 0.50-1.40 Lvl) [facility]2018-01-25 10:36:00 Test Item Value Reference Range Interpretation Comments BUN (test code = BUN) 12 7-22 [facility]2018-01-25 10:36:00 Test Item Value Reference Range Interpretation Comments Glucose Lvl (test code = Glucose Lvl) 166 70-99 [facility]2018-01-25 10:36:00 Test Item Value Reference Range Interpretation Comments A/G Ratio (test code = A/G Ratio) 0.7 1 0.7-1.6 [facility]2018-01-25 10:36:00 Test Item Value Reference Range Interpretation Comments AGAP (test code = AGAP) 15.1 10.0-20.0 [facility]2018-01-25 10:36:00 Test Item Value Reference Range Interpretation Comments Globulin (test code = Globulin) 4.5 2.7-4.2 [facility]2018-01-25 10:36:00 Test Item Value Reference Range Interpretation Comments B/C Ratio (test code = B/C Ratio) 17 1 6-25 [facility] [id number] 10:36:00 Test Item Value Reference Range Interpretation Comments PTT (test code = PTT) 31.3 s 22.9-35.8 [facility] Cent[id number] 10:36:00 Test Item Value Reference Range Interpretation Comments INR (test code = INR) 1.04 1 0.85-1.17 [facility] CenterJfrwtfqFTCDSIYWQR2368-76-56 10:36:00 Test Item Value Reference Range Interpretation Comments PT (test code = PT) 13.6 s 12.0-14.7 [facility] CenterKnvqfosKZVEPFUJTY2551-18-10 10:36:00 Test Item Value Reference Range Interpretation Comments Monocytes # (test code 0.3 See_Comment [Aut omated message] The = Monocytes #) system which generated this result tra nsmitted reference range : <=0.8. The reference r zechariah was not used to int erpret this result as normal/abnormal . [facility] CenterTznlqfcLKYOVCDUTP9955-08-71 10:36:00 Test Item Value Reference Range Interpretation Comments Lymphocytes # (test code = Lymphocytes 1.3 1.0-5.5 #) [facility] Cent[id number] 10:36:00 Test Item Value Reference Range Interpretation Comments Segs (test code = Segs) 84.9 45.0-75.0 [facility] CenterCyraocmSWOEUEEEXU6983-63-98 10:36:00 Test Item Value Reference Range Interpretation Comments Segs-Bands # (test code = Segs-Bands #) 9.0 1.5-8.1 [facility] CenterMrlushaHMXDZSEAIQ3825-57-58 10:36:00 Test Item Value Reference Range Interpretation Comments Basophils (test code = 0.1 See_Comment [Aut omated message] The Basophils) system which ge nerated this result tra nsmitted reference range : <=1.0. The reference r zechariah was not used to int erpret this result as normal/abnormal . [facility] CenterRrhrxtoQFSQRWRCVK1856-69-28 10:36:00 Test Item Value Reference Range Interpretation Comments Lymphocytes (test code = Lymphocytes) 12.5 20.0-40.0 [facility]AenwkjqSEQDUJTUKH3771-53-90 10:36:00 Test Item Value Reference Range Interpretation Comments Monocytes (test code = Monocytes) 2.5 2.0-12.0 [facility] CenterPrdbndcJNFXCEMYTF6705-40-94 10:36:00 Test Item Value Reference Range Interpretation Comments RBC (test code = RBC) 4.13 4.20-5.40 [facility] CenterSgbnlvfMXYDNYGXXE5400-10-10 10:36:00 Test Item Value Reference Range Interpretation Comments WBC (test code = WBC) 10.6 3.7-10.4 [facility] CenterNikbfefCRKNNKEIDB5292-92-57 10:36:00 Test Item Value Reference Range Interpretation Comments MCH (test code = MCH) 31.4 pg 27.0-31.0 [facility] CenterEsxgncmSDVZUMIMES5367-57-94 10:36:00 Test Item Value Reference Range Interpretation Comments RDW (test code = RDW) 12.5 11.5-14.5 [facility] CenterEkbrdaxRZEXXKMLAN2273-87-21 10:36:00 Test Item Value Reference Range Interpretation Comments MCHC (test code = MCHC) 34.6 32.0-36.0 [facility] CenterYjhvivsRKUCSDSJKB0071-72-64 10:36:00 Test Item Value Reference Range Interpretation Comments Hgb (test code = Hgb) 13.0 12.0-16.0 [facility] CenterUgslnbuDBBRWHFHCS5533-23-49 10:36:00 Test Item Value Reference Range Interpretation Comments MCV (test code = MCV) 90.7 80.0-98.0 [facility] CenterMmyyatbGNZQCJCHMU6451-97-71 10:36:00 Test Item Value Reference Range Interpretation Comments Hct (test code = Hct) 37.4 36.0-48.0 [facility] CenterUsfgyxiYBGYKBIMEK5247-96-93 10:36:00 Test Item Value Reference Range Interpretation Comments MPV (test code = MPV) 7.7 7.4-10.4 [facility] CenterIvorongBCUBCANXPU9038-05-71 10:36:00 Test Item Value Reference Range Interpretation Comments Platelet (test code = Platelet) 291 133-450 [facility]2018-01-25 10:36:00 Test Item Value Reference Range Interpretation Comments Magnesium Lvl (test code = Magnesium 2.5 1.8-2.4 Lvl) [facility]2018-01-25 10:36:00 Test Item Value Reference Range Interpretation Comments Phosphorus (test code = Phosphorus) 3.1 2.5-4.5 [facility]2018-01-25 10:36:00 Test Item Value Reference Range Interpretation Comments Total Protein (test code = Total 7.7 6.4-8.4 Protein) [facility]2018-01-25 10:36:00 Test Item Value Reference Range Interpretation Comments Calcium Lvl (test code = Calcium Lvl) 8.7 8.5-10.5 [facility]2018-01-25 10:36:00 Test Item Value Reference Range Interpretation Comments CO2 (test code = CO2) 24 24-32 [facility]2018-01-25 10:36:00 Test Item Value Reference Range Interpretation Comments Chloride Lvl (test code = Chloride Lvl) 101 95-109 [facility]2018-01-25 10:36:00 Test Item Value Reference Range Interpretation Comments Potassium Lvl (test code = Potassium 4.1 3.5-5.1 Lvl) [facility]2018-01-25 10:36:00 Test Item Value Reference Range Interpretation Comments Alk Phos (test code = Alk Phos) 108 39-136 [facility]2018-01-25 10:36:00 Test Item Value Reference Range Interpretation Comments AST (test code = AST) 44 See_Comment [Auto mated message] The system which ge nerated this result transmit jose reference range : <=37. The reference range was not used to interpr et this result as scott l/abnormal. [facility]2018-01-25 10:36:00 Test Item Value Reference Range Interpretation Comments Bili Total (test code = Bili Total) 0.3 0.2-1.3 [facility]2018-01-25 10:36:00 Test Item Value Reference Range Interpretation Comments ALT (test code = ALT) 71 See_Comment [Auto mated message] The system which ge nerated this result transmit jose reference range : <=65. The reference range was not used to interpr et this result as scott l/abnormal. [facility]2018-01-25 10:36:00 Test Item Value Reference Range Interpretation Comments Albumin Lvl (test code = Albumin Lvl) 3.2 3.5-5.0 [facility]2018-01-25 10:36:00 Test Item Value Reference Range Interpretation Comments eGFR (test code = eGFR) 94 [facility]2018-01-25 10:36:00 Test Item Value Reference Range Interpretation Comments Sodium Lvl (test code = Sodium Lvl) 136 135-145 [facility]2018-01-25 10:36:00 Test Item Value Reference Range Interpretation Comments Creatinine Lvl (test code = Creatinine 0.70 0.50-1.40 Lvl) [facility]2018-01-25 10:36:00 Test Item Value Reference Range Interpretation Comments BUN (test code = BUN) 12 12-04 [facility]2018-01-25 10:36:00 Test Item Value Reference Range Interpretation Comments Glucose Lvl (test code = Glucose Lvl) 166 70-99 [facility]2018-01-25 10:36:00 Test Item Value Reference Range Interpretation Comments A/G Ratio (test code = A/G Ratio) 0.7 1 0.7-1.6 [facility]2018-01-25 10:36:00 Test Item Value Reference Range Interpretation Comments AGAP (test code = AGAP) 15.1 10.0-20.0 [facility]2018-01-25 10:36:00 Test Item Value Reference Range Interpretation Comments Globulin (test code = Globulin) 4.5 2.7-4.2 [facility]2018-01-25 10:36:00 Test Item Value Reference Range Interpretation Comments B/C Ratio (test code = B/C Ratio) 17 1 11-07 [facility] CenterUncineyUJNLTRAXEW7584-69-38 10:36:00 Test Item Value Reference Range Interpretation Comments PTT (test code = PTT) 31.3 s 22.9-35.8 [facility] CenterLxeiiroEBFPQTGSIB9199-59-52 10:36:00 Test Item Value Reference Range Interpretation Comments INR (test code = INR) 1.04 1 0.85-1.17 [facility] CenterEkklgspSCTOOQGBHV1200-28-90 10:36:00 Test Item Value Reference Range Interpretation Comments PT (test code = PT) 13.6 s 12.0-14.7 [facility] CenterRjgqkwhUAZPMSBPIB0878-06-39 10:36:00 Test Item Value Reference Range Interpretation Comments Monocytes # (test code 0.3 See_Comment [Aut omated message] The = Monocytes #) system which generated this result tra nsmitted reference range : <=0.8. The reference r zechariah was not used to int erpret this result as normal/abnormal . [facility] CenterGseusoyMUMJIAVSSQ7613-40-41 10:36:00 Test Item Value Reference Range Interpretation Comments Lymphocytes # (test code = Lymphocytes 1.3 1.0-5.5 #) [facility] CenterGbbxpvvDTBYBLBLSL4988-04-19 10:36:00 Test Item Value Reference Range Interpretation Comments Segs (test code = Segs) 84.9 45.0-75.0 [facility] CenterGnlrkxzQSYIBFKQXP3710-10-63 10:36:00 Test Item Value Reference Range Interpretation Comments Segs-Bands # (test code = Segs-Bands #) 9.0 1.5-8.1 [facility] CenterNtkdvarXKKGPXBLTK9024-03-62 10:36:00 Test Item Value Reference Range Interpretation Comments Basophils (test code = 0.1 See_Comment [Aut omated message] The Basophils) system which ge nerated this result tra nsmitted reference range : <=1.0. The reference r zechariah was not used to int erpret this result as normal/abnormal . [facility] CenterOxaaexvHUGNYUKVVO3841-00-87 10:36:00 Test Item Value Reference Range Interpretation Comments Lymphocytes (test code = Lymphocytes) 12.5 20.0-40.0 [facility] CenterUoxhyboDIAJLJADLB5973-83-63 10:36:00 Test Item Value Reference Range Interpretation Comments Monocytes (test code = Monocytes) 2.5 2.0-12.0 [facility] CenterBhuzrvvVEEPUTBICN5714-87-03 10:36:00 Test Item Value Reference Range Interpretation Comments RBC (test code = RBC) 4.13 4.20-5.40 [facility] CenterAtzpprgJMXZSSNLRN3724-49-06 10:36:00 Test Item Value Reference Range Interpretation Comments WBC (test code = WBC) 10.6 3.7-10.4 [facility] CenterLwytleqOSARZPCWSY0356-17-24 10:36:00 Test Item Value Reference Range Interpretation Comments MCH (test code = MCH) 31.4 pg 27.0-31.0 [facility] CenterCckjijoPOBKPHOQDF4981-04-39 10:36:00 Test Item Value Reference Range Interpretation Comments RDW (test code = RDW) 12.5 11.5-14.5 [facility] CenterPesovpvINQTFGUBAY9618-91-99 10:36:00 Test Item Value Reference Range Interpretation Comments MCHC (test code = MCHC) 34.6 32.0-36.0 [facility] CenterDblpsnbATMFLWQGCH0026-37-04 10:36:00 Test Item Value Reference Range Interpretation Comments Hgb (test code = Hgb) 13.0 12.0-16.0 [facility] CenterBccdxnmJDEYINSMRX1422-22-95 10:36:00 Test Item Value Reference Range Interpretation Comments MCV (test code = MCV) 90.7 80.0-98.0 [facility] CenterFvztxnfKJSTVBPWBO1914-12-35 10:36:00 Test Item Value Reference Range Interpretation Comments Hct (test code = Hct) 37.4 36.0-48.0 [facility] CenterEjbstoqRGGRZPSMZY2910-04-14 10:36:00 Test Item Value Reference Range Interpretation Comments MPV (test code = MPV) 7.7 7.4-10.4 [facility] CenterJakirodLPEUNOOZDK5867-22-16 10:36:00 Test Item Value Reference Range Interpretation Comments Platelet (test code = Platelet) 291 133-450 [facility]2018-01-24 16:16:00 Test Item Value Reference Range Interpretation Comments eGFR (test code = eGFR) 80 [facility]2018-01-24 16:16:00 Test Item Value Reference Range Interpretation Comments AGAP (test code = AGAP) 10.1 10.0-20.0 [facility]2018-01-24 16:16:00 Test Item Value Reference Range Interpretation Comments CO2 (test code = CO2) 29 24-32 [facility]2018-01-24 16:16:00 Test Item Value Reference Range Interpretation Comments Calcium Lvl (test code = Calcium Lvl) 8.8 8.5-10.5 [facility]2018-01-24 16:16:00 Test Item Value Reference Range Interpretation Comments Potassium Lvl (test code = Potassium 4.1 3.5-5.1 Lvl) [facility]2018-01-24 16:16:00 Test Item Value Reference Range Interpretation Comments Chloride Lvl (test code = Chloride Lvl) 103 95-109 [facility]2018-01-24 16:16:00 Test Item Value Reference Range Interpretation Comments Sodium Lvl (test code = Sodium Lvl) 138 135-145 [facility]2018-01-24 16:16:00 Test Item Value Reference Range Interpretation Comments Creatinine Lvl (test code = Creatinine 0.80 0.50-1.40 Lvl) [facility]2018-01-24 16:16:00 Test Item Value Reference Range Interpretation Comments Glucose Lvl (test code = Glucose Lvl) 149 70-99 [facility]2018-01-24 16:16:00 Test Item Value Reference Range Interpretation Comments BUN (test code = BUN) 10 7-22 [facility]2018-01-24 16:16:00 Test Item Value Reference Range Interpretation Comments eGFR (test code = eGFR) 80 [facility]2018-01-24 16:16:00 Test Item Value Reference Range Interpretation Comments AGAP (test code = AGAP) 10.1 10.0-20.0 [facility]2018-01-24 16:16:00 Test Item Value Reference Range Interpretation Comments CO2 (test code = CO2) 29 24-32 [facility]2018-01-24 16:16:00 Test Item Value Reference Range Interpretation Comments Calcium Lvl (test code = Calcium Lvl) 8.8 8.5-10.5 [facility]2018-01-24 16:16:00 Test Item Value Reference Range Interpretation Comments Potassium Lvl (test code = Potassium 4.1 3.5-5.1 Lvl) [facility]2018-01-24 16:16:00 Test Item Value Reference Range Interpretation Comments Chloride Lvl (test code = Chloride Lvl) 103 95-109 [facility]2018-01-24 16:16:00 Test Item Value Reference Range Interpretation Comments Sodium Lvl (test code = Sodium Lvl) 138 135-145 [facility]2018-01-24 16:16:00 Test Item Value Reference Range Interpretation Comments Creatinine Lvl (test code = Creatinine 0.80 0.50-1.40 Lvl) [facility]2018-01-24 16:16:00 Test Item Value Reference Range Interpretation Comments Glucose Lvl (test code = Glucose Lvl) 149 70-99 [facility]2018-01-24 16:16:00 Test Item Value Reference Range Interpretation Comments BUN (test code = BUN) 10 12-04 [facility] CenterPivjmudUKRSXNUZTV9648-12-21 12:20:00 Test Item Value Reference Range Interpretation Comments POC Hemoglobin (test code = POC 13.9 12.0-16.0 Hemoglobin) [facility] CenterJzbimyfAWMWQZUQEP6467-32-22 12:20:00 Test Item Value Reference Range Interpretation Comments POC Hematocrit (test code = POC 41.0 36.0-48.0 Hematocrit) [facility] CenterSruhemyDYCUQNROJQ0738-56-79 12:20:00 Test Item Value Reference Range Interpretation Comments POC BUN (test code = POC BUN) 11 12-04 [facility] CenterKxewonhEGHKKYSYMC7930-15-77 12:20:00 Test Item Value Reference Range Interpretation Comments POC Glucose (test code = POC Glucose) 127 - [facility] CenterXqojqmrYKATWAUKRC4391-63-35 12:20:00 Test Item Value Reference Range Interpretation Comments POC Potassium (test code = POC 4.0 3.5-5.1 Potassium) [facility] CenterYatirgsENQXMCUYTA4074-06-62 12:20:00 Test Item Value Reference Range Interpretation Comments POC Sodium (test code = POC Sodium) 140 135-145 [facility] CenterDxxtsbnFFABGIYWWL2800-77-40 12:20:00 Test Item Value Reference Range Interpretation Comments POC Chloride (test code = POC Chloride) 101 95-109 [facility] CenterKrulthzBLXLQBVMER1284-80-65 12:20:00 Test Item Value Reference Range Interpretation Comments POC Hemoglobin (test code = POC 13.9 12.0-16.0 Hemoglobin) [facility] CenterVulthsvGAIHVFHAKW5062-31-19 12:20:00 Test Item Value Reference Range Interpretation Comments POC Hematocrit (test code = POC 41.0 36.0-48.0 Hematocrit) [facility] CenterPijhrxgABHMAFVJPV7475-40-23 12:20:00 Test Item Value Reference Range Interpretation Comments POC BUN (test code = POC BUN) 11 12-04 [facility] CenterThrtdsjBUUQTWVDLY3402-52-05 12:20:00 Test Item Value Reference Range Interpretation Comments POC Glucose (test code = POC Glucose) 127 70-99 [facility] CenterMhcwtsyTVABFKBDPS2849-72-49 12:20:00 Test Item Value Reference Range Interpretation Comments POC Potassium (test code = POC 4.0 3.5-5.1 Potassium) [facility] CenterVgzbercWBFPUFWNSI2021-53-57 12:20:00 Test Item Value Reference Range Interpretation Comments POC Sodium (test code = POC Sodium) 140 135-145 [facility] CenterXwhrungHHJTLDOBFX5232-27-37 12:20:00 Test Item Value Reference Range Interpretation Comments POC Chloride (test code = POC Chloride) 101 95-109 [facility] DXMLZYK5388-24-45 12:19:00 Test Item Value Reference Range Interpretation Comments ABO/Rh (test code = ABO/Rh) O NEG [facility] OCTQTEH5434-20-46 12:19:00 Test Item Value Reference Range Interpretation Comments Antibody Scrn (test Negative (06/08/17 6:19 code = Antibody Scrn) AM) [facility] EVHIOTA9645-40-67 12:19:00 Test Item Value Reference Range Interpretation Comments ABO/Rh (test code = ABO/Rh) O NEG [facility] XXCQUBJ4586-58-66 12:19:00 Test Item Value Reference Range Interpretation Comments Antibody Scrn (test Negative (06/08/17 6:19 code = Antibody Scrn) AM) [facility]0125[facility] 16:25:00 Test Item Value Reference Range Interpretation Comments AGAP (test code = AGAP) 7.2 10.0-20.0 [facility] HospitalAnwfedxDHIXATQDATWO5440-72-36 16:25:00 Test Item Value Reference Range Interpretation Comments eGFR (test code = eGFR) 80 [facility]TNIAFXOYJFEB9284-42-73 16:25:00 Test Item Value Reference Range Interpretation Comments Chloride Lvl (test code = Chloride Lvl) 104 95-109 [facility]WNYWSEW1707[facility] 16:25:00 Test Item Value Reference Range Interpretation Comments Sodium Lvl (test code = Sodium Lvl) 141 135-145 [facility] HospitalTmaxapoQTGZCVKTLDJH4783-29-44 16:25:00 Test Item Value Reference Range Interpretation Comments Calcium Lvl (test code = Calcium Lvl) 9.3 8.5-10.5 [facility] HospitalGiyffxoMFBYRRHUNFVK4829-53-77 16:25:00 Test Item Value Reference Range Interpretation Comments CO2 (test code = CO2) 35 24-32 [facility] HospitalAytfhcgYCQEEKPOVIBD2359-34-03 16:25:00 Test Item Value Reference Range Interpretation Comments Potassium Lvl (test code = Potassium 5.2 3.5-5.1 Lvl) [facility] HospitalVzexoriGRQZFZTYKYRM0354-68-60 16:25:00 Test Item Value Reference Range Interpretation Comments Creatinine Lvl (test code = Creatinine 0.80 0.50-1.40 Lvl) [facility] HospitalRgqoqwaSVSRTNSUIDAC1725-68-31 16:25:00 Test Item Value Reference Range Interpretation Comments BUN (test code = BUN) 7 7-22 [facility] HospitalFokolcwYBOLXNSPSIHI3146-65-38 16:25:00 Test Item Value Reference Range Interpretation Comments Glucose Lvl (test code = Glucose Lvl) 94 70-99 [facility] CenterFhmrdupRQXRMZXLBU0039-20-32 16:25:00 Test Item Value Reference Range Interpretation Comments RDW (test code = RDW) 13.1 11.5-14.5 [facility] CenterMgosyrfTSTNYLLJIT7200-56-13 16:25:00 Test Item Value Reference Range Interpretation Comments MCH (test code = MCH) 30.7 pg 27.0-31.0 [facility] CenterIpfnrksUOXFJEIJIG5436-90-02 16:25:00 Test Item Value Reference Range Interpretation Comments MCHC (test code = MCHC) 33.4 32.0-36.0 [facility] CenterYwloxgjSAIRWZULND3795-81-84 16:25:00 Test Item Value Reference Range Interpretation Comments MCV (test code = MCV) 92.0 80.0-98.0 [facility] CenterWblqztrYQAFQYMFNL3362-94-84 16:25:00 Test Item Value Reference Range Interpretation Comments Hct (test code = Hct) 44.3 36.0-48.0 [facility] CenterYnraxobKRVRPCMWLV1240-30-76 16:25:00 Test Item Value Reference Range Interpretation Comments RBC (test code = RBC) 4.81 4.20-5.40 [facility] CenterTnwtylwTELHWBLQSZ9874-34-32 16:25:00 Test Item Value Reference Range Interpretation Comments Hgb (test code = Hgb) 14.8 12.0-16.0 [facility] CenterNzsowofNTIYQHVETB0251-81-18 16:25:00 Test Item Value Reference Range Interpretation Comments WBC (test code = WBC) 7.3 3.7-10.4 [facility] CenterJfksgdrQYVQFXQPGT1116-37-07 16:25:00 Test Item Value Reference Range Interpretation Comments MPV (test code = MPV) 7.9 7.4-10.4 [facility] CenterNojoabmPWGXPZGDXX7426-88-78 16:25:00 Test Item Value Reference Range Interpretation Comments Platelet (test code = Platelet) 347 133-450 [facility] CenterVlxtruiKNMPBSVLAC9448-69-27 16:25:00 Test Item Value Reference Range Interpretation Comments Eosinophils # (test code 0.1 See_Comment [A utomated message] The = Eosinophils #) system whic h generated this result tra nsmitted reference range : <=0.5. The reference r zechariah was not used to int erpret this result as normal/abnormal . [facility] CenterTsgxmuwAYXSHEKILP5810-63-52 16:25:00 Test Item Value Reference Range Interpretation Comments Lymphocytes # (test code = Lymphocytes 3.2 1.0-5.5 #) [facility] CenterDzgejyiKOAAZAZRHX1603-05-63 16:25:00 Test Item Value Reference Range Interpretation Comments Monocytes # (test code 0.4 See_Comment [Aut omated message] The = Monocytes #) system which generated this result tra nsmitted reference range : <=0.8. The reference r zechariah was not used to int erpret this result as normal/abnormal . [facility] CenterFrccrdjPOBEFGEJPJ6945-84-46 16:25:00 Test Item Value Reference Range Interpretation Comments Eosinophils (test code = 1.9 See_Comment [A utomated message] The Eosinophils) system which ge nerated this result tra nsmitted reference range : <=4.0. The reference r zechariah was not used to int erpret this result as normal/abnormal . [facility] CenterWpcswjrJYMEFCFTIK8671-08-51 16:25:00 Test Item Value Reference Range Interpretation Comments Segs-Bands # (test code = Segs-Bands #) 3.5 1.5-8.1 [facility] CenterEpxiajcKSOIFGRDZU9052-18-23 16:25:00 Test Item Value Reference Range Interpretation Comments Basophils (test code = 0.5 See_Comment [Aut omated message] The Basophils) system which ge nerated this result tra nsmitted reference range : <=1.0. The reference r zechariah was not used to int erpret this result as normal/abnormal . [facility] CenterLghhdtoKOFEZMVAYQ9484-91-81 16:25:00 Test Item Value Reference Range Interpretation Comments Segs (test code = Segs) 47.7 45.0-75.0 [facility] CenterFugxgtpKFBLDDIOFS7044-19-36 16:25:00 Test Item Value Reference Range Interpretation Comments Monocytes (test code = Monocytes) 6.2 2.0-12.0 [facility] CenterTwucyrmXEVBWZVYVE5561-54-27 16:25:00 Test Item Value Reference Range Interpretation Comments Lymphocytes (test code = Lymphocytes) 43.7 20.0-40.0 [facility] HospitalSeeytjlXBUDACJYJWHP4631-28-91 16:25:00 Test Item Value Reference Range Interpretation Comments AGAP (test code = AGAP) 7.2 10.0-20.0 [facility] HospitalYgsqtmxTEWMMYYVIQPN1027-16-63 16:25:00 Test Item Value Reference Range Interpretation Comments eGFR (test code = eGFR) 80 [facility] HospitalBlneqxyBPUNNABSRTZU5844-39-95 16:25:00 Test Item Value Reference Range Interpretation Comments Chloride Lvl (test code = Chloride Lvl) 104 95-109 [facility] HospitalQbvkmbfVAGTSRWANMCH3730-53-23 16:25:00 Test Item Value Reference Range Interpretation Comments Sodium Lvl (test code = Sodium Lvl) 141 135-145 [facility] HospitalZaglprwRIHBZBVAWGLK2295-95-95 16:25:00 Test Item Value Reference Range Interpretation Comments Calcium Lvl (test code = Calcium Lvl) 9.3 8.5-10.5 [facility] HospitalNwzywroDCJAWLEQYYOE9673-24-51 16:25:00 Test Item Value Reference Range Interpretation Comments CO2 (test code = CO2) 35 24-32 [facility] HospitalYwfamweJPSKRTZBKWQT5583-78-60 16:25:00 Test Item Value Reference Range Interpretation Comments Potassium Lvl (test code = Potassium 5.2 3.5-5.1 Lvl) [facility] HospitalHsvrclxQJYAUJEJYCOR4758-57-10 16:25:00 Test Item Value Reference Range Interpretation Comments Creatinine Lvl (test code = Creatinine 0.80 0.50-1.40 Lvl) [facility] HospitalAxgbhuoZQYDUQTCXMVI4073-57-28 16:25:00 Test Item Value Reference Range Interpretation Comments BUN (test code = BUN) 7 7-22 [facility] HospitalSjmgqdzKIAYZVBAQHLW4180-18-46 16:25:00 Test Item Value Reference Range Interpretation Comments Glucose Lvl (test code = Glucose Lvl) 94 70-99 [facility] CenterTqrhbraQZMFPYWCDF1147-81-38 16:25:00 Test Item Value Reference Range Interpretation Comments RDW (test code = RDW) 13.1 11.5-14.5 [facility] CenterOljfdmcQKLVFMJYWR9321-70-86 16:25:00 Test Item Value Reference Range Interpretation Comments MCH (test code = MCH) 30.7 pg 27.0-31.0 [facility] CenterNrvhcoiVURCHLTDRD2871-15-02 16:25:00 Test Item Value Reference Range Interpretation Comments MCHC (test code = MCHC) 33.4 32.0-36.0 [facility] CenterOsaxhtjDMYAIQONEU6044-86-25 16:25:00 Test Item Value Reference Range Interpretation Comments MCV (test code = MCV) 92.0 80.0-98.0 [facility] CenterNrtnpfnUPITBDBGHJ8253-89-42 16:25:00 Test Item Value Reference Range Interpretation Comments Hct (test code = Hct) 44.3 36.0-48.0 [facility] CenterVstpvyfYPOLMGTMJM5873-75-98 16:25:00 Test Item Value Reference Range Interpretation Comments RBC (test code = RBC) 4.81 4.20-5.40 [facility] CenterCiizeovZLARLECOAV5070-93-36 16:25:00 Test Item Value Reference Range Interpretation Comments Hgb (test code = Hgb) 14.8 12.0-16.0 [facility] CenterVguoajeWQZZQNIBOC5324-31-48 16:25:00 Test Item Value Reference Range Interpretation Comments WBC (test code = WBC) 7.3 3.7-10.4 [facility] CenterKrbwsykNUFPKDGNAN4816-03-90 16:25:00 Test Item Value Reference Range Interpretation Comments MPV (test code = MPV) 7.9 7.4-10.4 [facility] CenterIaiwrvmUDOCCAOVBT7126-01-05 16:25:00 Test Item Value Reference Range Interpretation Comments Platelet (test code = Platelet) 347 133-450 [facility] CenterHauhiuiILNTBBATPP5878-83-55 16:25:00 Test Item Value Reference Range Interpretation Comments Eosinophils # (test code 0.1 See_Comment [A utomated message] The = Eosinophils #) system whic h generated this result tra nsmitted reference range : <=0.5. The reference r zechariah was not used to int erpret this result as normal/abnormal . [facility] CenterFuyxbqqANFWSWMNPN0366-19-61 16:25:00 Test Item Value Reference Range Interpretation Comments Lymphocytes # (test code = Lymphocytes 3.2 1.0-5.5 #) [facility] CenterYkcwaoiDHDOEHMPMP1560-23-57 16:25:00 Test Item Value Reference Range Interpretation Comments Monocytes # (test code 0.4 See_Comment [Aut omated message] The = Monocytes #) system which generated this result tra nsmitted reference range : <=0.8. The reference r zechariah was not used to int erpret this result as normal/abnormal . [facility] CenterYmlixxiPVFKAXGCCA7212-33-77 16:25:00 Test Item Value Reference Range Interpretation Comments Eosinophils (test code = 1.9 See_Comment [A utomated message] The Eosinophils) system which ge nerated this result tra nsmitted reference range : <=4.0. The reference r zechariah was not used to int erpret this result as normal/abnormal . [facility] CenterQgyawcxCIVUCZOVJF8657-05-89 16:25:00 Test Item Value Reference Range Interpretation Comments Segs-Bands # (test code = Segs-Bands #) 3.5 1.5-8.1 [facility] CenterFtiyceyRYZGHSPDCW4537-95-27 16:25:00 Test Item Value Reference Range Interpretation Comments Basophils (test code = 0.5 See_Comment [Aut omated message] The Basophils) system which ge nerated this result tra nsmitted reference range : <=1.0. The reference r zechariah was not used to int erpret this result as normal/abnormal . [facility] CenterJcskrchTXONHEVNRH6968-73-95 16:25:00 Test Item Value Reference Range Interpretation Comments Segs (test code = Segs) 47.7 45.0-75.0 [facility] CenterXejfsbcAMZSQHXQTW0504-75-59 16:25:00 Test Item Value Reference Range Interpretation Comments Monocytes (test code = Monocytes) 6.2 2.0-12.0 [facility] CenterKssmexmSYFCHRSGZH2917-81-84 16:25:00 Test Item Value Reference Range Interpretation Comments Lymphocytes (test code = Lymphocytes) 43.7 20.0-40.0 [facility]2015-01-08 11:49:00 Test Item Value Reference Range Interpretation Comments Albumin Lvl (test code = Albumin Lvl) 3.4 3.5-5.0 [facility]2015-01-08 11:49:00 Test Item Value Reference Range Interpretation Comments Globulin (test code = Globulin) 4.2 2.0-4.0 [facility]2015-01-08 11:49:00 Test Item Value Reference Range Interpretation Comments A/G Ratio (test code = A/G Ratio) 0.8 0.7-1.6 [place] 085785-01-08 11:49:00 Test Item Value Reference Range Interpretation Comments Total Protein (test code = Total 7.6 6.4-8.4 Protein) [facility]2015-01-08 11:49:00 Test Item Value Reference Range Interpretation Comments Alk Phos (test code = Alk Phos) 124 39-136 [facility]2015-01-08 11:49:00 Test Item Value Reference Range Interpretation Comments ALT (test code = ALT) 58 See_Comment [Auto mated message] The system which ge nerated this result transmit jose reference range : <=65. The reference range was not used to interpr et this result as scott l/abnormal. [facility]2015-01-08 11:49:00 Test Item Value Reference Range Interpretation Comments AST (test code = AST) 54 See_Comment [Auto mated message] The system which ge nerated this result transmit jose reference range : <=37. The reference range was not used to interpr et this result as scott l/abnormal. [facility]2015-01-08 11:49:00 Test Item Value Reference Range Interpretation Comments Bili Indirect (test 0.3 See_Comment [Automa jose message] The code = Bili Indirect) system which generated this result tra nsmitted reference range : <=1.0. The reference r zechariah was not used to int erpret this result as normal/abnormal . [facility]2015-01-08 11:49:00 Test Item Value Reference Range Interpretation Comments Bili Total (test code = Bili Total) 0.4 0.2-1.3 [place] 085785-01-08 11:49:00 Test Item Value Reference Range Interpretation Comments Bili Direct (test code 0.1 See_Comment [Aut omated message] The = Bili Direct) system which generated this result tra nsmitted reference range : <=0.3. The reference r zechariah was not used to int erpret this result as scott l/abnormal. [facility]2015-01-08 11:49:00 Test Item Value Reference Range Interpretation Comments Magnesium Lvl (test code = Magnesium 1.8 1.8-2.4 Lvl) [facility]2015-01-08 11:49:00 Test Item Value Reference Range Interpretation Comments eGFR (test code = eGFR) 96 [facility]2015-01-08 11:49:00 Test Item Value Reference Range Interpretation Comments Chloride Lvl (test code = Chloride Lvl) 103 95-109 [facility]2015-01-08 11:49:00 Test Item Value Reference Range Interpretation Comments Calcium Lvl (test code = Calcium Lvl) 9.2 8.5-10.5 [facility]2015-01-08 11:49:00 Test Item Value Reference Range Interpretation Comments CO2 (test code = CO2) 25 24-32 [facility]2015-01-08 11:49:00 Test Item Value Reference Range Interpretation Comments Creatinine Lvl (test code = Creatinine 0.7 0.5-1.4 Lvl) [facility]2015-01-08 11:49:00 Test Item Value Reference Range Interpretation Comments Sodium Lvl (test code = Sodium Lvl) 137 135-145 [facility]2015-01-08 11:49:00 Test Item Value Reference Range Interpretation Comments Potassium Lvl (test code = Potassium 4.1 3.5-5.1 Lvl) [facility]2015-01-08 11:49:00 Test Item Value Reference Range Interpretation Comments BUN (test code = BUN) 10 7-22 [facility]2015-01-08 11:49:00 Test Item Value Reference Range Interpretation Comments Glucose Lvl (test code = Glucose Lvl) 152 70-99 [facility]2015-01-08 11:49:00 Test Item Value Reference Range Interpretation Comments AGAP (test code = AGAP) 13.1 10.0-20.0 [facility]LunpukfSEDPOJUTXH1273-98-92 11:49:00 Test Item Value Reference Range Interpretation Comments MCH (test code = MCH) 31.7 pg 27.0-31.0 [facility] CenterEayakvbPVIFYIANVQ3027-06-87 11:49:00 Test Item Value Reference Range Interpretation Comments MCHC (test code = MCHC) 34.3 32.0-36.0 [facility] CenterPqvoncdSDWFMSXOIM2045-15-29 11:49:00 Test Item Value Reference Range Interpretation Comments Platelet (test code = Platelet) 292 133-450 [facility] CenterEnphyiwGBMQSUVYZM7578-29-46 11:49:00 Test Item Value Reference Range Interpretation Comments RDW (test code = RDW) 12.8 11.5-14.5 [facility] CenterWegdvboJRPAWVKSOH9371-85-08 11:49:00 Test Item Value Reference Range Interpretation Comments MPV (test code = MPV) 8.0 7.4-10.4 [facility] CenterCirxulwJYIWJBUMHG5376-84-26 11:49:00 Test Item Value Reference Range Interpretation Comments RBC (test code = RBC) 4.33 4.20-5.40 [facility]SsaxdauSNSVPJWZJC0242-37-76 11:49:00 Test Item Value Reference Range Interpretation Comments WBC (test code = WBC) 10.3 3.7-10.4 [facility] CenterIxcdmyyLIZMHKYFET4492-62-41 11:49:00 Test Item Value Reference Range Interpretation Comments MCV (test code = MCV) 92.2 80.0-98.0 [facility] CenterKrigyrbPMGPFATINV5405-50-63 11:49:00 Test Item Value Reference Range Interpretation Comments Hct (test code = Hct) 40.0 36.0-48.0 [facility] CenterDqdtaczLUYNQBVHIT4236-32-47 11:49:00 Test Item Value Reference Range Interpretation Comments Hgb (test code = Hgb) 13.7 12.0-16.0 [facility] CenterBxfbdniDAZRWZLKAV6551-10-43 11:49:00 Test Item Value Reference Range Interpretation Comments Basophils # (test code 0.1 See_Comment [Aut omated message] The = Basophils #) system which generated this result tra nsmitted reference range : <=0.2. The reference r zechariah was not used to int erpret this result as normal/abnormal . [facility] CenterMgfprlaJGRURRGWFR2672-17-85 11:49:00 Test Item Value Reference Range Interpretation Comments Lymphocytes (test code = Lymphocytes) 10.9 20.0-40.0 [facility] CenterHghzclyVWPGXOWOUA2869-14-88 11:49:00 Test Item Value Reference Range Interpretation Comments Monocytes (test code = Monocytes) 1.1 2.0-12.0 [facility] CenterSmxblejEOPSJKEIIW7106-02-63 11:49:00 Test Item Value Reference Range Interpretation Comments Basophils (test code = 0.8 See_Comment [Aut omated message] The Basophils) system which ge nerated this result tra nsmitted reference range : <=1.0. The reference r zechariah was not used to int erpret this result as normal/abnormal . [facility] CenterUlkedyaJTRBQGWHXS8408-29-97 11:49:00 Test Item Value Reference Range Interpretation Comments Segs-Bands # (test code = Segs-Bands #) 9.0 1.5-8.1 [facility] CenterBkfdnauDQCOEYBUUE5816-54-24 11:49:00 Test Item Value Reference Range Interpretation Comments Lymphocytes # (test code = Lymphocytes 1.1 1.0-5.5 #) [facility] CenterZdlfenuKHLLYBLBJA2021-43-03 11:49:00 Test Item Value Reference Range Interpretation Comments Monocytes # (test code 0.1 See_Comment [Aut omated message] The = Monocytes #) system which generated this result tra nsmitted reference range : <=0.8. The reference r zechariah was not used to int erpret this result as normal/abnormal . [facility] CenterCdjndbsDYJJJROGGJ2474-38-72 11:49:00 Test Item Value Reference Range Interpretation Comments Segs (test code = Segs) 87.2 45.0-75.0 [facility]2015-01-08 11:49:00 Test Item Value Reference Range Interpretation Comments Albumin Lvl (test code = Albumin Lvl) 3.4 3.5-5.0 [facility]2015-01-08 11:49:00 Test Item Value Reference Range Interpretation Comments Globulin (test code = Globulin) 4.2 2.0-4.0 [facility]2015-01-08 11:49:00 Test Item Value Reference Range Interpretation Comments A/G Ratio (test code = A/G Ratio) 0.8 0.7-1.6 [facility]2015-01-08 11:49:00 Test Item Value Reference Range Interpretation Comments Total Protein (test code = Total 7.6 6.4-8.4 Protein) [facility]2015-01-08 11:49:00 Test Item Value Reference Range Interpretation Comments Alk Phos (test code = Alk Phos) 124 39-136 [facility]2015-01-08 11:49:00 Test Item Value Reference Range Interpretation Comments ALT (test code = ALT) 58 See_Comment [Auto mated message] The system which ge nerated this result transmit jose reference range : <=65. The reference range was not used to interpr et this result as scott l/abnormal. [facility]2015-01-08 11:49:00 Test Item Value Reference Range Interpretation Comments AST (test code = AST) 54 See_Comment [Auto mated message] The system which ge nerated this result transmit jose reference range : <=37. The reference range was not used to interpr et this result as scott l/abnormal. [facility]2015-01-08 11:49:00 Test Item Value Reference Range Interpretation Comments Bili Indirect (test 0.3 See_Comment [Automa jose message] The code = Bili Indirect) system which generated this result tra nsmitted reference range : <=1.0. The reference r zechariah was not used to int erpret this result as normal/abnormal . [facility]2015-01-08 11:49:00 Test Item Value Reference Range Interpretation Comments Bili Total (test code = Bili Total) 0.4 0.2-1.3 [place] 085785-01-08 11:49:00 Test Item Value Reference Range Interpretation Comments Bili Direct (test code 0.1 See_Comment [Aut omated message] The = Bili Direct) system which generated this result tra nsmitted reference range : <=0.3. The reference r zechariah was not used to int erpret this result as scott l/abnormal. [facility]2015-01-08 11:49:00 Test Item Value Reference Range Interpretation Comments Magnesium Lvl (test code = Magnesium 1.8 1.8-2.4 Lvl) [facility]2015-01-08 11:49:00 Test Item Value Reference Range Interpretation Comments eGFR (test code = eGFR) 96 [place] 085785-01-08 11:49:00 Test Item Value Reference Range Interpretation Comments Chloride Lvl (test code = Chloride Lvl) 103 95-109 [facility]2015-01-08 11:49:00 Test Item Value Reference Range Interpretation Comments Calcium Lvl (test code = Calcium Lvl) 9.2 8.5-10.5 [facility]2015-01-08 11:49:00 Test Item Value Reference Range Interpretation Comments CO2 (test code = CO2) 25 24-32 [facility]2015-01-08 11:49:00 Test Item Value Reference Range Interpretation Comments Creatinine Lvl (test code = Creatinine 0.7 0.5-1.4 Lvl) [facility]2015-01-08 11:49:00 Test Item Value Reference Range Interpretation Comments Sodium Lvl (test code = Sodium Lvl) 137 135-145 [facility]2015-01-08 11:49:00 Test Item Value Reference Range Interpretation Comments Potassium Lvl (test code = Potassium 4.1 3.5-5.1 Lvl) [facility]2015-01-08 11:49:00 Test Item Value Reference Range Interpretation Comments BUN (test code = BUN) 10 7-22 [facility]2015-01-08 11:49:00 Test Item Value Reference Range Interpretation Comments Glucose Lvl (test code = Glucose Lvl) 152 70-99 [facility]2015-01-08 11:49:00 Test Item Value Reference Range Interpretation Comments AGAP (test code = AGAP) 13.1 10.0-20.0 [facility] CenterOrrbrdpQBVQCEMLNY9909-62-10 11:49:00 Test Item Value Reference Range Interpretation Comments MCH (test code = MCH) 31.7 pg 27.0-31.0 [facility] CenterKoofwvmUSQHLJEWKQ0365-29-59 11:49:00 Test Item Value Reference Range Interpretation Comments MCHC (test code = MCHC) 34.3 32.0-36.0 [facility] CenterEvlxnpuAFHWMUYHPA1661-03-74 11:49:00 Test Item Value Reference Range Interpretation Comments Platelet (test code = Platelet) 292 282-450 [facility] CenterYvncbbfIVITMQTPDD1466-20-30 11:49:00 Test Item Value Reference Range Interpretation Comments RDW (test code = RDW) 12.8 11.5-14.5 [facility] CenterEzwvqyhHBFLQTNHHO7993-36-74 11:49:00 Test Item Value Reference Range Interpretation Comments MPV (test code = MPV) 8.0 7.4-10.4 [facility] CenterXlshbelAJPXJJHNVL7391-27-07 11:49:00 Test Item Value Reference Range Interpretation Comments RBC (test code = RBC) 4.33 4.20-5.40 [facility] CenterAdecvvgGFRPZRSAQW0705-34-80 11:49:00 Test Item Value Reference Range Interpretation Comments WBC (test code = WBC) 10.3 3.7-10.4 [facility] CenterVfojplbMWFIPOBAEL8306-99-11 11:49:00 Test Item Value Reference Range Interpretation Comments MCV (test code = MCV) 92.2 80.0-98.0 [facility] CenterMlkliymAGDUTBQCWF6109-83-41 11:49:00 Test Item Value Reference Range Interpretation Comments Hct (test code = Hct) 40.0 36.0-48.0 [facility] CenterXuytikaZVXOHLNVGY4994-13-65 11:49:00 Test Item Value Reference Range Interpretation Comments Hgb (test code = Hgb) 13.7 12.0-16.0 [facility] CenterGbmcgxnLNRZYOEHBG7761-68-25 11:49:00 Test Item Value Reference Range Interpretation Comments Basophils # (test code 0.1 See_Comment [Aut omated message] The = Basophils #) system which generated this result tra nsmitted reference range : <=0.2. The reference r zechariah was not used to int erpret this result as normal/abnormal . [facility] CenterCngpxgaAYJHLBEKOP6129-33-65 11:49:00 Test Item Value Reference Range Interpretation Comments Lymphocytes (test code = Lymphocytes) 10.9 20.0-40.0 [facility] CenterVmekrgzBRZCXWPQGM3310-59-42 11:49:00 Test Item Value Reference Range Interpretation Comments Monocytes (test code = Monocytes) 1.1 2.0-12.0 [facility] CenterOesszlcZPRBMDFAZQ9122-97-85 11:49:00 Test Item Value Reference Range Interpretation Comments Basophils (test code = 0.8 See_Comment [Aut omated message] The Basophils) system which ge nerated this result tra nsmitted reference range : <=1.0. The reference r zechariah was not used to int erpret this result as normal/abnormal . [facility] CenterMdgarzdWCREQOZYNW5498-82-88 11:49:00 Test Item Value Reference Range Interpretation Comments Segs-Bands # (test code = Segs-Bands #) 9.0 1.5-8.1 [facility] CenterAsezqnuVPZOOVZBFR4918-47-46 11:49:00 Test Item Value Reference Range Interpretation Comments Lymphocytes # (test code = Lymphocytes 1.1 1.0-5.5 #) [facility] CenterYgjmwduKMFWVCVMGB4842-52-58 11:49:00 Test Item Value Reference Range Interpretation Comments Monocytes # (test code 0.1 See_Comment [Aut omated message] The = Monocytes #) system which generated this result tra nsmitted reference range : <=0.8. The reference r zechariah was not used to int erpret this result as normal/abnormal . [facility] CenterXfjoutjBPBDBQZMOM5772-86-99 11:49:00 Test Item Value Reference Range Interpretation Comments Segs (test code = Segs) 87.2 45.0-75.0 [facility]2015-01-07 20:29:00 Test Item Value Reference Range Interpretation Comments eGFR (test code = eGFR) 71 [facility]2015-01-07 20:29:00 Test Item Value Reference Range Interpretation Comments Calcium Lvl (test code = Calcium Lvl) 8.4 8.5-10.5 [facility]2015-01-07 20:29:00 Test Item Value Reference Range Interpretation Comments AGAP (test code = AGAP) 12.4 10.0-20.0 [facility]2015-01-07 20:29:00 Test Item Value Reference Range Interpretation Comments CO2 (test code = CO2) 27 24-32 [facility]2015-01-07 20:29:00 Test Item Value Reference Range Interpretation Comments Chloride Lvl (test code = Chloride Lvl) 105 95-109 [facility]2015-01-07 20:29:00 Test Item Value Reference Range Interpretation Comments Potassium Lvl (test code = Potassium 3.4 3.5-5.1 Lvl) [facility]2015-01-07 20:29:00 Test Item Value Reference Range Interpretation Comments Sodium Lvl (test code = Sodium Lvl) 141 135-145 [facility]2015-01-07 20:29:00 Test Item Value Reference Range Interpretation Comments BUN (test code = BUN) 13 7-22 [facility]2015-01-07 20:29:00 Test Item Value Reference Range Interpretation Comments Glucose Lvl (test code = Glucose Lvl) 169 70-99 [facility]2015-01-07 20:29:00 Test Item Value Reference Range Interpretation Comments Creatinine Lvl (test code = Creatinine 0.9 0.5-1.4 Lvl) [facility]2015-01-07 20:29:00 Test Item Value Reference Range Interpretation Comments eGFR (test code = eGFR) 71 [facility]2015-01-07 20:29:00 Test Item Value Reference Range Interpretation Comments Calcium Lvl (test code = Calcium Lvl) 8.4 8.5-10.5 [facility]2015-01-07 20:29:00 Test Item Value Reference Range Interpretation Comments AGAP (test code = AGAP) 12.4 10.0-20.0 [facility]2015-01-07 20:29:00 Test Item Value Reference Range Interpretation Comments CO2 (test code = CO2) 27 24-32 [facility]2015-01-07 20:29:00 Test Item Value Reference Range Interpretation Comments Chloride Lvl (test code = Chloride Lvl) 105 95-109 [facility]2015-01-07 20:29:00 Test Item Value Reference Range Interpretation Comments Potassium Lvl (test code = Potassium 3.4 3.5-5.1 Lvl) [facility]2015-01-07 20:29:00 Test Item Value Reference Range Interpretation Comments Sodium Lvl (test code = Sodium Lvl) 141 135-145 [facility]2015-01-07 20:29:00 Test Item Value Reference Range Interpretation Comments BUN (test code = BUN) 13 7-22 [facility]2015-01-07 20:29:00 Test Item Value Reference Range Interpretation Comments Glucose Lvl (test code = Glucose Lvl) 169 70-99 [facility]2015-01-07 20:29:00 Test Item Value Reference Range Interpretation Comments Creatinine Lvl (test code = Creatinine 0.9 0.5-1.4 Lvl) [facility] [employer] PWNWEWB3281-08-30 16:53:00 Test Item Value Reference Range Interpretation Comments Antibody Scrn (test Negative (05/14/14 code = Antibody Scrn) 10:53 AM) [facility] DBWNVWV5879-25-05 16:53:00 Test Item Value Reference Range Interpretation Comments ABO/Rh (test code = ABO/Rh) O NEG [facility] CenterIyvvvceALBIZWPUQT4599-82-66 16:53:00 Test Item Value Reference Range Interpretation Comments MPV (test code = MPV) 7.8 7.4-10.4 [facility] CenterDhttwedNVFTFKDQPL4177-66-84 16:53:00 Test Item Value Reference Range Interpretation Comments MCH (test code = MCH) 31.0 pg 27.0-31.0 [facility] CenterNulginoTOBOTOMMFV3976-87-65 16:53:00 Test Item Value Reference Range Interpretation Comments MCHC (test code = MCHC) 34.3 32.0-36.0 [facility] CenterLfcbabtBHSRWQSNDR0935-89-91 16:53:00 Test Item Value Reference Range Interpretation Comments RDW (test code = RDW) 12.5 11.5-14.5 [facility] CenterAejzaiyRGHWFLZTUC0711-92-77 16:53:00 Test Item Value Reference Range Interpretation Comments Platelet (test code = Platelet) 334 133-450 [facility] CenterAdrisilZMJKDIUMWA0960-08-03 16:53:00 Test Item Value Reference Range Interpretation Comments MCV (test code = MCV) 90.4 80.0-98.0 [facility] CenterUoeqpceZMQVXRFGHZ9149-60-70 16:53:00 Test Item Value Reference Range Interpretation Comments Hgb (test code = Hgb) 14.5 12.0-16.0 [facility] CenterUfrfgexBCSPEUQFDG9611-49-35 16:53:00 Test Item Value Reference Range Interpretation Comments RBC (test code = RBC) 4.69 4.20-5.40 [facility] CenterEucgikbRHQXBLJBKT6580-70-24 16:53:00 Test Item Value Reference Range Interpretation Comments Hct (test code = Hct) 42.4 36.0-48.0 [facility] CenterDvggtzmDUSLCLUAWA7866-62-25 16:53:00 Test Item Value Reference Range Interpretation Comments WBC (test code = WBC) 6.5 3.7-10.4 [facility] CenterMmeiimlWPUBKNWRVL5489-93-64 16:53:00 Test Item Value Reference Range Interpretation Comments Lymphocytes # (test code = Lymphocytes 3.1 1.0-5.5 #) [facility] CenterLcpmiocJOHSUEWHGB3258-98-10 16:53:00 Test Item Value Reference Range Interpretation Comments Segs-Bands # (test code = Segs-Bands #) 2.9 1.5-8.1 [facility] CenterAydqiloVFLDATSSQK7311-54-86 16:53:00 Test Item Value Reference Range Interpretation Comments Basophils (test code = 0.3 See_Comment [Aut omated message] The Basophils) system which ge nerated this result tra nsmitted reference range : <=1.0. The reference r zechariah was not used to int erpret this result as normal/abnormal . [facility] CenterPygeaydQLOQYVNIOP1113-45-69 16:53:00 Test Item Value Reference Range Interpretation Comments Monocytes (test code = Monocytes) 6.4 2.0-12.0 [facility] CenterQiphmkhAWZTMTBEMW5836-30-47 16:53:00 Test Item Value Reference Range Interpretation Comments Lymphocytes (test code = Lymphocytes) 47.0 20.0-40.0 [facility] CenterKxtjhwdIWPSTCKNGN4733-35-28 16:53:00 Test Item Value Reference Range Interpretation Comments Eosinophils (test code = 2.0 See_Comment [A utomated message] The Eosinophils) system which ge nerated this result tra nsmitted reference range : <=4.0. The reference r zechariah was not used to int erpret this result as normal/abnormal . [facility] CenterMivbuqjTPXJNJEIQF5395-96-19 16:53:00 Test Item Value Reference Range Interpretation Comments Segs (test code = Segs) 44.3 45.0-75.0 [facility] CenterNljvaadUJTGIUHDIZ3705-48-58 16:53:00 Test Item Value Reference Range Interpretation Comments Basophils # (test code 0.0 See_Comment [Aut omated message] The = Basophils #) system which generated this result tra nsmitted reference range : <=0.2. The reference r zechariah was not used to int erpret this result as normal/abnormal . [facility] CenterTjxanbkUSYXDHOFKS4216-79-27 16:53:00 Test Item Value Reference Range Interpretation Comments Eosinophils # (test code 0.1 See_Comment [A utomated message] The = Eosinophils #) system whic h generated this result tra nsmitted reference range : <=0.5. The reference r zechariah was not used to int erpret this result as normal/abnormal . [facility] CenterVjemwukOQTFDICRHG3811-55-41 16:53:00 Test Item Value Reference Range Interpretation Comments Monocytes # (test code 0.4 See_Comment [Aut omated message] The = Monocytes #) system which generated this result tra nsmitted reference range : <=0.8. The reference r zechariah was not used to int erpret this result as normal/abnormal . [facility] [employer] TXDBNRQ7302-47-19 16:53:00 Test Item Value Reference Range Interpretation Comments Antibody Scrn (test Negative (05/14/14 code = Antibody Scrn) 10:53 AM) [facility] [employer] CJHEQCX0619-01-59 16:53:00 Test Item Value Reference Range Interpretation Comments ABO/Rh (test code = ABO/Rh) [facility]DlpcavzGARMUMPMTS2765-18-18 16:53:00 Test Item Value Reference Range Interpretation Comments MPV (test code = MPV) 7.8 7.4-10.4 [facility] CenterQglztdxYZQLAADSCT2625-11-90 16:53:00 Test Item Value Reference Range Interpretation Comments MCH (test code = MCH) 31.0 pg 27.0-31.0 [facility]JslpdiuOOSKLQUPRJ9358-21-77 16:53:00 Test Item Value Reference Range Interpretation Comments MCHC (test code = MCHC) 34.3 32.0-36.0 [facility] CenterGrynccpMMZILCQRWZ3647-75-91 16:53:00 Test Item Value Reference Range Interpretation Comments RDW (test code = RDW) 12.5 11.5-14.5 [facility]VnbcbfwVGKWSXBZAG9337-48-28 16:53:00 Test Item Value Reference Range Interpretation Comments Platelet (test code = Platelet) 334 133-450 [facility] CenterExggqlaHXTUCEPXCA8447-73-44 16:53:00 Test Item Value Reference Range Interpretation Comments MCV (test code = MCV) 90.4 80.0-98.0 [facility] CenterMkihpfoCZRNOJMQXR4068-76-31 16:53:00 Test Item Value Reference Range Interpretation Comments Hgb (test code = Hgb) 14.5 12.0-16.0 [facility]MdghzhwFXTESNXBIQ1568-33-16 16:53:00 Test Item Value Reference Range Interpretation Comments RBC (test code = RBC) 4.69 4.20-5.40 [facility] CenterGtalqifZSIARSDSQR9412-63-02 16:53:00 Test Item Value Reference Range Interpretation Comments Hct (test code = Hct) 42.4 36.0-48.0 [facility] CenterCtyjtpvEDMXWUQJDL0383-16-57 16:53:00 Test Item Value Reference Range Interpretation Comments WBC (test code = WBC) 6.5 3.7-10.4 [facility] CenterHwcfifgEIZDYNAJDN2826-85-59 16:53:00 Test Item Value Reference Range Interpretation Comments Lymphocytes # (test code = Lymphocytes 3.1 1.0-5.5 #) [facility] CenterUyfbpmrNKNBTAWIJI0723-50-28 16:53:00 Test Item Value Reference Range Interpretation Comments Segs-Bands # (test code = Segs-Bands #) 2.9 1.5-8.1 [facility] CenterIvonnhxBFUQZHUTCO5077-42-66 16:53:00 Test Item Value Reference Range Interpretation Comments Basophils (test code = 0.3 See_Comment [Aut omated message] The Basophils) system which ge nerated this result tra nsmitted reference range : <=1.0. The reference r zechariah was not used to int erpret this result as normal/abnormal . [facility] CenterBwebhboEEEJUESTUP5649-17-97 16:53:00 Test Item Value Reference Range Interpretation Comments Monocytes (test code = Monocytes) 6.4 2.0-12.0 [facility] CenterImjablsGDFUHFIOZE5278-76-95 16:53:00 Test Item Value Reference Range Interpretation Comments Lymphocytes (test code = Lymphocytes) 47.0 20.0-40.0 [facility] CenterGthqdmoBLIVJIUGVB3092-46-73 16:53:00 Test Item Value Reference Range Interpretation Comments Eosinophils (test code = 2.0 See_Comment [A utomated message] The Eosinophils) system which ge nerated this result tra nsmitted reference range : <=4.0. The reference r zechariah was not used to int erpret this result as normal/abnormal . [facility] CenterZtqaxevANZBPJVMIF3591-64-67 16:53:00 Test Item Value Reference Range Interpretation Comments Segs (test code = Segs) 44.3 45.0-75.0 [facility] CenterJbbxeeeIONXDNXUKW6318-67-72 16:53:00 Test Item Value Reference Range Interpretation Comments Basophils # (test code 0.0 See_Comment [Aut omated message] The = Basophils #) system which generated this result tra nsmitted reference range : <=0.2. The reference r zechariah was not used to int erpret this result as normal/abnormal . [facility] CenterVvqwwdwACGGBJIXLL6262-49-47 16:53:00 Test Item Value Reference Range Interpretation Comments Eosinophils # (test code 0.1 See_Comment [A utomated message] The = Eosinophils #) system whic h generated this result tra nsmitted reference range : <=0.5. The reference r zechariah was not used to int erpret this result as normal/abnormal . [facility] CenterRppxhlnZDNKUTVRNV5820-25-49 16:53:00 Test Item Value Reference Range Interpretation Comments Monocytes # (test code 0.4 See_Comment [Aut omated message] The = Monocytes #) system which generated this result tra nsmitted reference range : <=0.8. The reference r zechariah was not used to int erpret this result as normal/abnormal . [facility]
[2022-09-08 13:44] LABS: Absolute Lymphocytes (CBC) 2.4 K/uL (0.7-4.9); Hematocrit 45.2 % (36.0-45.0); Lymphocytes % 38.9 % (15.3-44.8); MCV 90.2 fL (80-100); MPV 6.7 fL (7.6-11.3); RBC Red Blood Cell Count 5.01 M/uL (3.86-4.86)
--- NOTE | 2022-09-08 13:47 | RAD REPORT ---
EXAM DESCRIPTION: CT - Head Brain Wo Cont - 09/08/2022 1:40 pm CLINICAL HISTORY: blurred vision left eye COMPARISON: Ct Stroke Brain Wo Cont dated 08/25/2016; Head Brain Wo Cont dated 04/04/2016 TECHNIQUE: All CT scans are performed using dose optimization technique as appropriate and may inclu de automated exposure control or mA/KV adjustment according to patient size. FINDINGS: No intracranial hemorrhage, hydrocephalus or extra-axial fluid collection.No areas of brai n edema or evidence of midline shift. The paranasal sinuses and mastoids are clear. The calvarium is intact. IMPRESSION: No acute intracranial abnormality.
[2022-09-08 13:50] LABS: Protime INR 0.96
[2022-09-08 14:04] LABS: Potassium 3.3 mEq/L (3.5-5.1)
--- NOTE | 2022-09-08 14:23 | RAD REPORT ---
EXAM DESCRIPTION: MRI - Brain Wo Cont - 09/08/2022 2:09 pm CLINICAL HISTORY: blurred vision COMPARISON: Brain Wo Cont dated 12/24/2020; Brain W/Wo Cont dated 02/06/2019; Brain Wo Cont dated 08/25 TECHNIQUE: Sagittal T1-weighted images were obtained along with PD/heavily T2-weighted and T2-FLAIR images. Axial DWI and ADC mapping sequences were also obtained along with coronal heavily T2-weighted images were obtained. FINDINGS: No intracranial hemorrhage, mass or acute infarction. There is no edema or shift of midlin e structures. No extra-axial fluid collections. Signal voids are seen as a normal finding in the khurram r intracranial vessels. No significant white matter disease. Mastoid air cells and paranasal sinuses are clear. IMPRESSION: No acute intracranial abnormality. Specifically, no acute infarct identified. No signifi cant change from prior.
[2022-09-08] MEDS ORDERED: NA CHLORIDE 0.9% 500 ML ONE (14:34)
--- NOTE | 2022-09-08 14:44 | ER ---
Nurse's Notes [facility] Name: Kathy Ledesma Age: 66 yrs Sex: Female : 1955 Arrival Date: 09/08/2022 Time: 13:06 Bed 13 Private MD: Aquilino Easton J Diagnosis: Low vision, left eye, normal vision right eye Presentation: 09/08 13:16 Chief complaint: Patient states: at approx 1230 this afternoon the patient started ap3 experiencing "spider" vision in her left eye, and the feeling of a migraine coming on. Patient states that she only has a mild headache but her vision in her left eye is now black spots with blurring. Coronavirus screen: At this time, the client does not indicate any symptoms associated with coronavirus-19. Ebola Screen: No symptoms or risks identified at this time. Initial Sepsis Screen: Does the patient meet any 2 criteria? No. Patient's initial sepsis screen is negative. Does the patient have a suspected source of infection? No. Patient's initial sepsis screen is negative. Risk Assessment: Do you want to hurt yourself or someone else? Patient reports no desire to harm self or others. Onset of symptoms was September 08, 2022 at 12:30. 13:16 Method Of Arrival: Wheelchair ap3 13:23 Acuity: ZAK 3 ap3 Triage Assessment: 13:21 General: Appears uncomfortable, Behavior is calm, cooperative. Pain: Complains of pain ap3 in left eye Pain currently is 6 out of 10 on a pain scale. EENT: Reports blurred vision in left eye. Neuro: Level of Consciousness is awake, alert, obeys commands, Oriented to person, place, time, situation. Cardiovascular: Patient's skin is warm and dry. Respiratory: Airway is patent Respiratory effort is even, unlabored, Respiratory pattern is regular, symmetrical. Historical: - Allergies: 13:20 Cipro PO; ap3 13:20 Codeine; ap3 13:20 Iodinated Contrast Media - IV Dye; ap3 13:20 NSAIDS; ap3 13:20 relafen; ap3 - PMHx: 13:20 COPD; CVA; Diabetes - NIDDM; Fibromyalgia; Hypothyroidism; shingles; spinal stenosis; ap3 - Immunization history:: Client reports receiving the 2nd dose of the Covid vaccine. - Social history:: Smoking status: Patient denies any tobacco usage or history of. - Family history:: not pertinent. - Hospitalizations: : No recent hospitalization is reported. Screenin:20 Abuse screen: Denies threats or abuse. Nutritional screening: No deficits noted. ap3 Tuberculosis screening: No symptoms or risk factors identified. 13:35 [facility] ED Fall Risk Assessment (Adult) History of falling in the last 3 months, kc6 including since admission No falls in past 3 months (0 pts) Confusion or Disorientation No (0 pts) Intoxicated or Sedated No (0 pts) Impaired Gait No (0 pts) Mobility Assist Device Used No (0 pt) Altered Elimination No (0 pt) Score/Fall Risk Level 0 - 2 = Low Risk Oriented to surroundings, Maintained a safe environment, Educated pt \\T\\ family on fall prevention, incl call for assistance when getting out of bed, Assessed \\T\\ reinforced patient's understanding of fall precautions, Hourly rounding (assess needs \\T\\ fall precautionary measures) done. Assessment: 13:35 General: Appears in no apparent distress. comfortable, Behavior is calm, cooperative, kc6 appropriate for age. Pain: Complains of pain in left eye, headache Pain does not radiate. Pain currently is 3 out of 10 on a pain scale. Quality of pain is described as throbbing, Is continuous. Neuro: Blackburn Agitation-Sedation Scale (RASS): 0 - Alert and Calm Level of Consciousness is awake, alert, obeys commands, Oriented to person, place, time, situation, Appropriate for age Reports blurred vision in left eye. Cardiovascular: Capillary refill < 3 seconds. Respiratory: Airway is patent Trachea midline Respiratory effort is even, unlabored, Respiratory pattern is regular, symmetrical. GI: No signs and/or symptoms were reported involving the gastrointestinal system. : No signs and/or symptoms were reported regarding the genitourinary system. EENT: Derm: No signs and/or symptoms reported regarding the dermatologic system. Skin is intact, Skin is pink, warm \\T\\ dry. Musculoskeletal: No signs and/or symptoms reported regarding the musculoskeletal system. Circulation, motion, and sensation intact. Capillary refill < 3 seconds, Range of motion: intact in all extremities. 14:35 Reassessment: Patient appears in no apparent distress at this time. No changes from kc6 previously documented assessment. Patient and/or family updated on plan of care and expected duration. Pain level reassessed. Patient is alert, oriented x 3, equal unlabored respirations, skin warm/dry/pink. Vital Signs: 13:16 BP 123 / 65; Pulse 98; Resp 18; Temp 98.4; Pulse Ox 97% ; ap3 ED Course: 13:10 Patient arrived in ED. mr 13:10 Aquilino Easton MD is Private Physician. mr 13:17 Arie Prescott MD is Attending Physician. rn 13:22 Arm band placed on right wrist. ap3 13:23 Triage completed. ap3 13:23 Christine Weiss, RN is Primary Nurse. kc6 13:34 Inserted saline lock: 20 gauge in right wrist, using aseptic technique. Blood collected.kc6 13:37 Patient has correct armband on for positive identification. Bed in low position. Call kc6 light in reach. Side rails up X 1. Adult w/ patient. 13:41 CT Head Brain wo Cont In Process Unspecified. EDMS 14:11 Brain Wo Cont MRI In Process Unspecified. EDMS 14:43 Gus Oh MD is Referral Physician. rn 14:49 No provider procedures requiring assistance completed. IV discontinued, intact, kc6 bleeding controlled, No redness/swelling at site. Pressure dressing applied. Administered Medications: 14:45 Not Given (Physician Discretion): NS 0.9% IV 500 ml IV at bolus once kc6 Medication: 14:49 VIS not applicable for this client. kc6 Outcome: 14:44 Discharge ordered by . rn 14:49 Discharged to home ambulatory, with family. kc6 14:49 Condition: stable 14:49 Discharge instructions given to patient, Instructed on discharge instructions, follow up and referral plans. Demonstrated understanding of instructions, follow-up care. 14:49 Patient left the ED. kc6 Signatures: Dispatcher [employer] [facility] Lizz Tate mr Arie Prescott MD MD rn Prokisch, Amanda RN RN ap3 Christine Weiss RN RN kc6
--- NOTE | 2022-09-08 14:44 | EDPHYS ---
Physician Documentation [facility] Name: Kathy Ledesma Age: 66 yrs Sex: Female : 1955 Arrival Date: 09/08/2022 Time: 13:06 Bed 13 Private MD: Aquilino Easton J ED Physician Arie Prescott HPI: 09/08 14:34 This 66 yrs old Female presents to ER via Wheelchair with complaints of Vision rn Problem. 14:34 The patient is experiencing blurred vision, floaters, The patient sustained None. to rn the left eye, caused by an unknown mechanism. 14:39 Onset: The symptoms/episode began/occurred today. Duration: the symptoms are rn continuous. Aggravated by nothing. Alleviated by nothing. Severity of symptoms: At their worst the symptoms were moderate in the emergency department the symptoms are unchanged. The patient has not experienced similar symptoms in the past. Pt reports around noon began with "spider webs" in left lateral field of view, left eye only. NO trauma. Has had retinal detachment before and feels similar. No focal neurological complaint otherwise. Non-painful. . Historical: - Allergies: 13:20 Cipro PO; ap3 13:20 Codeine; ap3 13:20 Iodinated Contrast Media - IV Dye; ap3 13:20 NSAIDS; ap3 13:20 relafen; ap3 - PMHx: 13:20 COPD; CVA; Diabetes - NIDDM; Fibromyalgia; Hypothyroidism; shingles; spinal stenosis; ap3 - Immunization history:: Client reports receiving the 2nd dose of the Covid vaccine. - Social history:: Smoking status: Patient denies any tobacco usage or history of. - Family history:: not pertinent. - Hospitalizations: : No recent hospitalization is reported. ROS: 14:39 Constitutional: Negative for fever, chills, and weight loss, Eyes: Negative for injury, rn pain, redness, and discharge, Neuro: Negative for headache, weakness, numbness, tingling, and seizure. Exam: 14:39 Constitutional: This is a well developed, well nourished patient who is awake, alert, rn and in no acute distress. Head/Face: Normocephalic, atraumatic. Eyes: Pupils equal round and reactive to light, extra-ocular motions intact. No swelling, + blurred vision left eye only, no hyphema, no hypopyon. Vital Signs: 13:16 BP 123 / 65; Pulse 98; Resp 18; Temp 98.4; Pulse Ox 97% ; ap3 MDM: 13:17 Patient medically screened. rn 14:39 Differential diagnosis: retinal detachment, vitreous hemorrhage, CVA, vascular problem. rn Data reviewed: vital signs, nurses notes, radiologic studies, CT scan, MRI, and as a result, I will discharge patient. Management of patient was discussed with the following: Kiss Mixer: Discussed case with Dr. Oh, who will see patient in his clinic immediately upon discharge. . Counseling: I had a detailed discussion with the patient and/or guardian regarding: the historical points, exam findings, and any diagnostic results supporting the discharge/admit diagnosis, radiology results, the need for outpatient follow up, to return to the emergency department if symptoms worsen or persist or if there are any questions or concerns that arise at home. Special discussion: I discussed with the patient/guardian in detail that at this point there is no indication for admission to the hospital. It is understood, however, that if the symptoms persist or worsen the patient needs to return immediately for re-evaluation. Based on the history and exam findings, there is no indication for further emergent testing or inpatient evaluation. I discussed with the patient/guardian the need to see the opthamologist for further evaluation of the symptoms. 09/08 13:23 Order name: CBC with Diff; Complete Time: 14:07 09/08 13:23 Order name: Basic Metabolic Panel; Complete Time: 14: 09/08 13:23 Order name: Protime (+inr); Complete Time: 14: 09/08 13:23 Order name: Ptt, Activated; Complete Time: 14: 09/08 13:23 Order name: CT Head Brain wo Cont; Complete Time: 14: 09/08 13:23 Order name: Brain Wo Cont MRI; Complete Time: 14: 09/08 13:23 Order name: IV Start; Complete Time: 13:34 rn Administered Medications: 14:45 Not Given (Physician Discretion): NS 0.9% IV 500 ml IV at bolus once kc6 Disposition Summary: 09/08/22 14:44 Discharge Ordered Location: Home rn Problem: new rn Symptoms: are unchanged rn Condition: Stable rn Diagnosis - Low vision, left eye, normal vision right eye rn Followup: rn - With: Gus Oh MD - When: Upon discharge from the Emergency Department - Reason: Further diagnostic work-up, Recheck today's complaints, Re-evaluation by your physician Discharge Instructions: - Blurred Vision, Adult rn - Discharge Summary Sheet em1 Forms: - Medication Reconciliation Form rn - Thank You Letter rn - Antibiotic rn building - Prescription Opioid Use rn Signatures: Dispatcher [employer] EDMS Arie Prescott MD MD rn Prokisch, Amanda, RN RN ap3 Christine Weiss RN kc6 Corrections: (The following items were deleted from the chart) 14:41 14:39 Constitutional: Negative for fever, chills, and weight loss, Eyes: Negative for rn injury, pain, redness, and discharge, rn
[2022-09-08 15:25] VITALS: BP 123/65; TEMP 98.4; O2SAT 97
== END 2022-09-08 14:49 | disposition home or self-care (01) ==
LOC: ER 13:06
DX: H54.52A1 Low vision left eye category 1, normal vision right eye (principal); E11.9 Type 2 diabetes mellitus without complications; Z88.1 Allergy status to other antibiotic agents; Z88.5 Allergy status to narcotic agent; Z88.6 Allergy status to analgesic agent; Z88.8 Allergy status to other drugs, medicaments and biological substances; Z91.041 Radiographic dye allergy status; Z86.73 Personal history of transient ischemic attack (TIA), and cerebral infarction without residual deficits
CPT/HCPCS: 85025; 80048; 36415; 85610; 85730; 70450; 70551; J7040; 99284

== ENCOUNTER 2024-05-24 10:44 | Emergency (ER) | payer OTHER ==
[2024-05-24] MEDS ORDERED: KETOROLAC 30 MG/ML INJ ONE (15:51)
--- NOTE | 2024-05-24 15:54 | ER ---
Nurse's Notes [facility] Name: Kathy Ledesma Age: 68 yrs Sex: Female : 1955 Arrival Date: 05/24/2024 Time: 10:44 Bed Treatment Private MD: Diagnosis: Pain in left hip;Osteoarthritis of hip, unspecified Presentation: 05/24 11:09 Chief complaint: Patient states: pain to L upper leg that radiates towards hip and ss groin area x weeks. Coronavirus screen: Client denies travel out of the [place] in the last 14 days. Ebola Screen: Patient denies exposure to infectious person. Patient denies travel to an Ebola-affected area in the 21 days before illness onset. Initial Sepsis Screen: Does the patient meet any 2 criteria? No. Patient's initial sepsis screen is negative. Does the patient have a suspected source of infection? No. Patient's initial sepsis screen is negative. Risk Assessment: Do you want to hurt yourself or someone else? Patient reports no desire to harm self or others. Onset of symptoms is unknown. 11:09 Method Of Arrival: Wheelchair ss 11:09 Acuity: ZAK 3 ss Historical: - Allergies: 11:11 Cipro PO; ss 11:11 Codeine; ss 11:11 Iodinated Contrast Media - IV Dye; ss 11:11 NSAIDS; ss 11:11 relafen; ss - PMHx: 11:11 COPD; Hypothyroidism; Diabetes - NIDDM; Fibromyalgia; shingles; CVA; spinal stenosis; ss - Immunization history:: Client reports having NOT received the Covid vaccine. - Infectious Disease History:: Denies. - Social history:: Smoking status: Patient denies any tobacco usage or history of. Screenin:38 [facility] ED Fall Risk Assessment (Adult) History of falling in the last 3 months, jb4 including since admission No falls in past 3 months (0 pts) Confusion or Disorientation No (0 pts) Intoxicated or Sedated No (0 pts) Impaired Gait Yes (1 pt) Mobility Assist Device Used Yes (1 pt) Altered Elimination No (0 pt) Score/Fall Risk Level 0 - 2 = Low Risk Oriented to surroundings, Maintained a safe environment. Abuse screen: Denies threats or abuse. Nutritional screening: No deficits noted. Tuberculosis screening: No symptoms or risk factors identified. Assessment: 12:30 General: Appears in no apparent distress. comfortable, Behavior is calm, cooperative, jb4 appropriate for age. Pain: Complains of pain in lateral aspect of left thigh Pain radiates to groin and medial aspect of left thigh Pain currently is 3 out of 10 on a pain scale. Neuro: Level of Consciousness is awake, alert, obeys commands, Oriented to person, place, time, situation. Cardiovascular: Patient's skin is warm and dry. Respiratory: Airway is patent Respiratory effort is even, unlabored, Respiratory pattern is regular, symmetrical. Derm: Skin is intact, Skin is pink, warm \T\ dry. Musculoskeletal: Circulation, motion, and sensation intact. Range of motion: intact in all extremities. 16:07 Reassessment: Patient appears in no apparent distress at this time. Patient and/or jb4 family updated on plan of care and expected duration. Pain level reassessed. Patient is alert, oriented x 3, equal unlabored respirations, skin warm/dry/pink. Vital Signs: 11:09 Pulse 76; Resp 16; Temp 98.2(TE); Pulse Ox 98% on R/A; Weight 80.29 kg; Height 5 ft. 1 ss in. ; Pain 3/10; 11:12 BP 105 / 74; ss 11:09 Body Mass Index 33.44 (80.29 kg, 154.94 cm) ss 11:09 Pain Scale: Adult ss ED Course: 10:48 Patient arrived in ED. sj2 11:05 Kaya Bobo MD is Attending Physician. gb1 11:11 Triage completed. ss 11:11 Arm band placed on right wrist. ss 13:36 Arley Pryor, MARQUES is Primary Nurse. jb4 13:38 Patient has correct armband on for positive identification. Bed in low position. Call jb4 light in reach. Side rails up X 1. Provided Education on: plan of care. 15:51 Hip Left 2 View XRAY In Process Unspecified. EDMS 15:51 Pelvis XRAY In Process Unspecified. EDMS 15:53 Alden Larsen MD is Referral Physician. gb1 16:07 No provider procedures requiring assistance completed. Patient did not have IV access jb4 during this emergency room visit. Administered Medications: 15:58 Not Given (Patient Refused): [id number] mg IM once jb4 Medication: 16:07 VIS not applicable for this client. jb4 Outcome: 15:53 Discharge ordered by . marcin 16:07 Discharged to home via wheelchair, with family, jb4 16:07 Condition: stable 16:07 Discharge instructions given to patient, Instructed on discharge instructions, follow up and referral plans. no drinking with medication, no driving heavy equipment, medication usage, Demonstrated understanding of instructions, follow-up care, medications, Prescriptions given X 1, 16:09 Patient left the ED. jb4 Signatures: Dispatcher [employer] EDMS Lilibeth Lowery, RN RN Arley Pryor RN RN jb4 Kaya Bobo MD MD gb1 Marco A Pedersen 2
--- NOTE | 2024-05-24 15:54 | EDPHYS ---
Physician Documentation [facility] Name: Kathy Ledesma Age: 68 yrs Sex: Female : 1955 Arrival Date: 05/24/2024 Time: 10:44 Bed Treatment Private MD: ED Physician Kaya Bobo HPI: 05/24 15:50 This 68 yrs old Female presents to ER via Wheelchair with complaints of Leg gb1 Pain, Groin Pain. 15:50 Ms. Jensen is a 68-year-old female with left hip pain that is radiating into her gb1 groin. She has a history of osteopenia and is status post from 2009 right total hip replacement this started out with the same symptoms. Patient denies any recent fall or trauma. She has pain when she lifts her leg and she usually at baseline walks with assistance.. Historical: - Allergies: 11:11 Cipro PO; ss 11:11 Codeine; ss 11:11 Iodinated Contrast Media - IV Dye; ss 11:11 NSAIDS; ss 11:11 relafen; ss - PMHx: 11:11 COPD; Hypothyroidism; Diabetes - NIDDM; Fibromyalgia; shingles; CVA; spinal stenosis; ss - Immunization history:: Client reports having NOT received the Covid vaccine. - Infectious Disease History:: Denies. - Social history:: Smoking status: Patient denies any tobacco usage or history of. Exam: 15:50 Constitutional: This is a well developed, well nourished patient who is awake, alert, gb1 and in no acute distress. Head/Face: Normocephalic, atraumatic. Eyes: Pupils equal round and reactive to light, extra-ocular motions intact. Lids and lashes normal. Conjunctiva and sclera are non-icteric and not injected. Cornea within normal limits. Periorbital areas with no swelling, redness, or edema. Chest/axilla: Normal chest wall appearance and motion. Nontender with no deformity. No lesions are appreciated. Cardiovascular: Regular rate and rhythm with a normal S1 and S2. No gallops, murmurs, or rubs. Normal PMI, no JVD. No pulse deficits. Skin: Warm, dry with normal turgor. Normal color with no rashes, no lesions, and no evidence of cellulitis. MS/ Extremity: Pulses equal, no cyanosis. Neurovascular intact. Limited range of motion of the left hip secondary to pain. Patient has pain with lifting the hip off the bed and with flexor muscle tendon. Vital Signs: 11:09 Pulse 76; Resp 16; Temp 98.2(TE); Pulse Ox 98% on R/A; Weight 80.29 kg; Height 5 ft. 1 ss in. ; Pain 3/10; 11:12 BP 105 / 74; ss 11:09 Body Mass Index 33.44 (80.29 kg, 154.94 cm) ss 11:09 Pain Scale: Adult ss MDM: 11:31 Medical Screening Exam initiated gb1 15:50 ED course: 68-year-old female with acute left hip pain 68-year-old female with acute on gb1 chronic left hip pain likely secondary to osteopenia. There is no signs of dislocation. The pain on the left the right is totally replaced. There is evidence of [id number] contact with the femoral head and the acetabulum. I do recommend MRI and outpatient orthopedic evaluation for left total hip replacement.. 05/24 15:12 Order name: Hip Left 2 View XRAY gb1 05/24 15:12 Order name: Pelvis XRAY gb1 Administered Medications: 15:58 Not Given (Patient Refused): [id number] mg IM once jb4 Disposition Summary: 05/24/24 15:53 Discharge Ordered Notes: Location: Home gb1 Problem: chronic gb1 Symptoms: have improved gb1 Condition: Stable gb1 Diagnosis - Pain in left hip gb1 - Osteoarthritis of hip, unspecified gb1 Followup: gb1 - With: Alden Larsen MD - When: - Reason: Recheck today's complaints Discharge Instructions: - Discharge Summary Sheet gb1 - Osteoarthritis gb1 Forms: - Medication Reconciliation Form gb1 - Antibiotic Education gb1 - Prescription Opioid Use gb1 - Patient Portal Instructions gb1 - Leadership Thank You Letter gb1 Prescriptions: - Tramadol 50 mg Oral Tablet - take 1 tablet ORAL route every 8 hours as needed; 12 tablet; Refills: 0, gb1 Product Selection Permitted Signatures: Dispatcher [employer] EDLilibeth Sequeira RN RN ss Kaya Bobo MD MD gb1 Alrey Pryor RN jb4 Corrections: (The following items were deleted from the chart) 15:13 15:12 Pelvis+[id number].[email or web address] ordered. EDMS EDMS
--- NOTE | 2024-05-24 16:05 | RAD REPORT ---
EXAMINATION: XR PELVIS CLINICAL INDICATION: ABD PAIN TECHNIQUE: AP Pelvis examination was obtained. COMPARISON: No prior exam. FINDINGS: Right total hip arthroplasty. Mild left hip osteoarthritic changes. No fracture or dislocat ion.
--- NOTE | 2024-05-24 16:09 | RAD REPORT ---
EXAMINATION: XR LEFT HIP CLINICAL INDICATION: . PAIN TECHNIQUE: Multiple views of the left hip were obtained. COMPARISON: No prior exam. FINDINGS: Mild osteoarthritis affects the left hip. No fracture or dislocation. No radiographic evid ence of AVN.
[2024-05-24 16:23] VITALS: TEMP 98.2; O2SAT 98
[2024-05-24 16:25] VITALS: BP 105/74
== END 2024-05-24 16:09 | disposition home or self-care (01) ==
LOC: ER 10:44
DX: M16.12 Unilateral primary osteoarthritis, left hip (principal); Z96.641 Presence of right artificial hip joint
CPT/HCPCS: 72170; 99283